=== PATIENT | male | born 1965 | race Caucasian/White ===

== ENCOUNTER 2022-11-24 08:41 | Outpatient (OUT) | payer OTHER, SELFPAY ==
--- NOTE | 2022-11-24 08:51 | XR_ITS ---
The [address] [address] Patient Name: ELYSE LEAHY MRN: [id number] date: 1965 Sex: M Assigned Patient Location: RAD Current Patient Location: [facility] Accession/Order Number: [id number] Exam Date: 11/24/2022 08:55 Report Date: 11/24/2022 09:19 At the request of: LILLY CAMPBELL Procedure: XR foreign body eye EXAMINATION: XR foreign body eye HISTORY: Foreign Body Eye COMPARISON: No relevant comparison available. FINDINGS: ORBITS: Negative for a metallic foreign body. OTHER: Remote fracture involving tip of nasal bone. IMPRESSION: 1. No metallic foreign body within the orbits. Electronically authenticated by: KESHAWN PECK Date: 11/24/2022 09:19
--- NOTE | 2022-11-24 09:40 | MR_ITS ---
[address] [address] Patient Name: ELYSE LEAHY MRN: [id number] date: 1965 Sex: M Assigned Patient Location: [facility] Current Patient Location: [facility] Accession/Order Number: [id number] Exam Date: 11/24/2022 09:40 Report Date: 11/24/2022 12:14 At the request of: LILLY CAMPBELL Procedure: MR knee RT wo con EXAMINATION: MR knee RT wo con HISTORY: Right Knee Sprain S83.911XA, Right Knee Strain S86.911A ; twisting injury, medial knee pain and swelling for COMPARISON: No relevant comparison available. TECHNIQUE: A complete multi-planar MRI was performed. 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 CARTILAGE: No visible defect. BONES: No marrow pathology, fracture, or significant arthropathy. MCL AND MEDIAL CAPSULE: Grade I sprain of the medial collateral ligament. LATERAL COMPARTMENT LATERAL MENISCUS: No visible tear or significant degeneration. CARTILAGE: No visible defect. BONES: No marrow pathology, fracture, or significant arthropathy. LCL/POSTEROLAT COMPLEX: Normal lateral collateral ligament, fascicles, lateral capsule and ligaments. ANTERIOR COMPARTMENT PATELLA: Small focus of subchondral edema at the patellar apex, mid body. CARTILAGE: Mild thinning, but no visible tear. TENDONS: Normal. EFFUSION: Moderate joint effusion. ACL: Normal appearing ligament. PCL: Normal appearing ligament. MENISCOFEMORAL: Normal meniscofemoral ligaments. OTHER: Negative. IMPRESSION: 1. Suspect mild sprain of the medial collateral ligament. 2. Moderate joint effusion. 3. Suspect tiny focal tear within patellar cartilage at apex of mid body resulting in subchondral edema. Electronically authenticated by: KESHAWN PECK Date: 11/24/2022 12:14
== END 2022-11-24 08:42 ==
LOC: RAD 08:41
PROVIDERS: PCP Nurse Practitioner; Visit Provider Nurse Practitioner Family
DX: S83.91XA Sprain of unspecified site of right knee, initial encounter (principal); S86.911A Strain of unspecified muscle(s) and tendon(s) at lower leg level, right leg, initial encounter
CPT/HCPCS: 70030; 73721

== ENCOUNTER 2023-02-05 22:37 | Emergency (ER) | payer OTHER, SELFPAY ==
[2023-02-05 22:43] VITALS: BP 166/79; PULSE 72; RESP 20; TEMP 36.8; O2SAT 92; BMI 50.2
--- NOTE | 2023-02-05 22:54 | ED.SKABFB1 ---
HPI - Skin/Abscess/Foreign Bdy General Chief complaint: Skin/Abscess/Foreign Body Stated complaint: Abscess lower leg Time Seen by Provider: 02/05/23 22:51 Source: patient Mode of arrival: walk-in History of Present Illness HPI narrative: pain and swelling left lower extremity for the past week. No fever or nausea. Decided to come in because of increasing pain. Related Data Allergies Allergy/AdvReac Type Severity Reaction Status Date / Time No Known Drug Allergies Allergy Verified 02/05/23 22:43 Review of Systems ROS Status of ROS 10 or more systems reviewed and unremarkable except as noted in history and below Exam Constitutional Vital Signs, click to edit/add: Last Vital Signs Temp 98.2 F 02/05/23 22:43 Pulse 72 02/05/23 22:43 Resp 20 02/05/23 22:43 BP 166/79 H 02/05/23 22:43 Pulse Ox 92 L 02/05/23 22:43 O2 Del Method Room Air 02/05/23 22:43 Common normals: no apparent distress, oriented x3, alert and well nourished Eye Common normals: PERRL, EOMs intact bilaterally and conjunctivae normal Respiratory Common normals: normal respiratory effort, no retractions, no use of accessory muscles and clear to auscultation bilaterally Cardio Common normals: regular rate, regular rhythm, S1 normal heart sound and S2 normal heart sound GI Common normals: soft to palpation and non-tender Extremity Other: erythema of bottom 1/2 of left lower extremity. Mild swelling. No red streaks Neuro Common normals: oriented x3, CN's II-XII intact bilaterally, moves all extremities, no focal motor deficits and no sensory deficits noted Psych Appearance: grossly normal Course Vital Signs Vital signs: Vital Signs Temperature 98.2 F 02/05/23 22:43 Pulse Rate 72 02/05/23 22:43 Respiratory Rate 20 02/05/23 22:43 Blood Pressure 166/79 H 02/05/23 22:43 Pulse Oximetry 92 L 02/05/23 22:43 Oxygen Delivery Method Room Air 02/05/23 22:43 Temperature 98.2 F 02/05/23 22:43 Pulse Rate 72 02/05/23 22:43 Respiratory Rate 20 02/05/23 22:43 Blood Pressure 166/79 H 02/05/23 22:43 Pulse Oximetry 92 L 02/05/23 22:43 Oxygen Delivery Method Room Air 02/05/23 22:43 MDM - Skin/Abscess/Foreign Bdy MDM Narrative Medical decision making narrative: presents with cellulitis lower half of LLE. No fever. Normal WBC and latic acid. Medicated with IV clindamycin and discharged home with a prescription of clindamycin. Will require close follow up by his PCP Lab Data Labs: Lab Results 02/05/23 Range/Units 22:50 WBC 7.7 (4.0-11.0) 10^3/uL RBC 4.56 L (4.70-6.10) 10^6/uL Hgb 14.6 (14.0-18.0) g/dL Hct 43.7 (42.0-54.0) % MCV 95.8 H (80.0-94.0) fL MCH 32.0 (25.9-34.0) pg MCHC 33.4 (29.9-35.2) g/dL RDW 12.7 (11.0-15.0) % Plt Count 237 (150-450) 10^3/uL MPV 9.7 (9.5-13.5) fL Neut % (Auto) 71.6 (43.0-75.0) % Lymph % (Auto) 15.7 L (20.5-60.0) % [place] % (Auto) 10.0 (1.7-12.0) % Eos % (Auto) 2.1 (0.9-7.0) % Baso % (Auto) 0.3 (0.2-2.0) % Neut # (Auto) 5.5 (1.4-6.5) 10^3/uL Lymph # (Auto) 1.2 (1.2-3.8) 10^3/uL [place] # (Auto) 0.8 (0.3-0.8) 10^3/uL Eos # (Auto) 0.2 (0.0-0.7) 10^3/uL Baso # (Auto) 0.0 (0.0-0.1) 10^3/uL Abs Immat Gran (auto) 0.02 (0.00-0.03) 10^3/uL Imm/Tot Granulo (auto) 0.3 (0.0-0.5) % Sodium 137 (136-145) mmol/L Potassium 3.4 L (3.5-5.1) mmol/L Chloride 103 (98-107) mmol/L Carbon Dioxide 31.0 (21.0-32.0) mmol/L Anion Gap 6.4 BUN 13.0 (7.0-18.0) mg/dL Creatinine 0.95 (0.70-1.30) mg/dL Est GFR ( Amer) >60 (>=60) Est GFR (Non-Af Amer) >60 (>=60) BUN/Creatinine Ratio 13.7 Glucose 134 H (74-106) mg/dL Lactate 1.1 (0.4-2.0) mmol/L Calcium 8.1 L (8.5-10.1) mg/dL Discharge Plan Discharge Chief Complaint: Skin/Abscess/Foreign Body Clinical Impression: Cellulitis Patient Disposition: Home, Self-Care Instructions: Cellulitis (ED) Additional Instructions: follow up with your family doctor in a couple of days for recheck Stand Alone Forms: Portal Instructions Referrals: Eusebia Terrell [Primary Care Provider] - 1 week
[2023-02-05] MEDS: 0.9 % SODIUM CHLORIDE 1,000 ML 999 ML IV (23:03)
[2023-02-05] MEDS: CLINDAMYCIN PHOSPHATE/D5W 900 MG/50 ML PIGGYBACK 100 MG IV (23:04)
[2023-02-05 23:08] LABS: Basophils Percent Auto 0.3 % (0.2-2.0); Eosinophils Absolute Auto 0.2 10^3/uL (0.0-0.7); Eosinophils Percent Auto 2.1 % (0.9-7.0); Hematocrit 43.7 % (42.0-54.0); Hemoglobin 14.6 g/dL (14.0-18.0); Immature Granulocytes Abs Auto 0.02 10^3/uL (0.00-0.03); Immature Granulocytes Pct Auto 0.3 % (0.0-0.5); Lymphocytes Absolute Auto 1.2 10^3/uL (1.2-3.8); Lymphocytes Percent Auto 15.7 % (20.5-60.0); Mean Corpuscular HGB Conc 33.4 g/dL (29.9-35.2); Mean Corpuscular Volume 95.8 fL (80.0-94.0); Mean Platelet Volume 9.7 fL (9.5-13.5); Monocytes Absolute Auto 0.8 10^3/uL (0.3-0.8); Neutrophils Absolute Auto 5.5 10^3/uL (1.4-6.5); Neutrophils Percent Auto 71.6 % (43.0-75.0); Platelet Count 237 10^3/uL (150-450); Red Blood Count 4.56 10^6/uL (4.70-6.10); Red Cell Distribution Width 12.7 % (11.0-15.0); White Blood Count 7.7 10^3/uL (4.0-11.0)
--- NOTE | 2023-02-05 23:09 | PC.NURSE ---
pt presents to ED because pt states he noticed his left lower extremity was red, swelling, and started draining yellow drainage for the last 2 weeks. pt states that he doesn't have pain in the calf but has pain to his left foot. pt came in today because of the yellow drainage and pain in his foot. pt states he isn't a diabetic that he knows of.
[2023-02-05 23:17] LABS: Anion Gap 6.4; BUN Creatinine Ratio 13.7; Calcium 8.1 mg/dL (8.5-10.1); Chloride 103 mmol/L (98-107); Estimated GFR (African America >60 (>=60); Estimated GFR (Non-African Ame >60 (>=60); Glucose 134 mg/dL (74-106); Potassium 3.4 mmol/L (3.5-5.1); Sodium 137 mmol/L (136-145)
[2023-02-05 23:26] LABS: Lactate/Lactic Acid 1.1 mmol/L (0.4-2.0)
[2023-02-06] MEDS: CLINDAMYCIN HCL 150 MG CAPSULE 300 MG PO (00:10)
== END 2023-02-06 00:22 | disposition home or self-care (01) ==
PROVIDERS: Emergency Provider Internal Medicine; PCP Nurse Practitioner
DX: L03.116 Cellulitis of left lower limb (principal)
CPT/HCPCS: 36415; 80048; 83605; 85025; 96365; 99284

== ENCOUNTER 2023-04-08 07:39 | Inpatient (IN) | payer OTHER, SELFPAY ==
[2023-04-08] VITALS (66 sets, daily range): BP systolic 122–144; BP diastolic 54–110; PULSE 81–145; RESP 8–30; TEMP 36.5–36.6; O2SAT 89–98; BMI 51.7
--- NOTE | 2023-04-08 07:53 | ECG_ITS ---
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
--- NOTE | 2023-04-08 07:53 | XR_ITS ---
[address] [address] Patient Name: ELYSE LEAHY MRN: [id number] date: 1965 Sex: M Assigned Patient Location: ER Current Patient Location: ER Accession/Order Number: [id number] Exam Date: 04/08/2023 08:00 Report Date: 04/08/2023 08:16 At the request of: LORI OLIVARES Procedure: XR chest 1V XR chest 1V CLINICAL: Shortness of breath COMPARISON: 08/27/2022 TECHNIQUE: Single AP view of the chest. FINDINGS: Heart size is mildly enlarged. Central pulmonary vasculature is within normal limits. No regional airspace consolidation, effusion or discernible pneumothorax. Osseous structures appear intact. XR/XR chest 1V IMPRESSION: Cardiomegaly without acute cardiac or pulmonary findings. Electronically authenticated by: MARCO ANTONIO STEWART Date: 04/08/2023 08:16
[2023-04-08 08:08] LABS: Basophils Percent Auto 0.4 % (0.2-2.0); Eosinophils Absolute Auto 0.1 10^3/uL (0.0-0.7); Eosinophils Percent Auto 1.4 % (0.9-7.0); Hematocrit 48.5 % (42.0-54.0); Hemoglobin 16.2 g/dL (14.0-18.0); Immature Granulocytes Abs Auto 0.02 10^3/uL (0.00-0.03); Immature Granulocytes Pct Auto 0.3 % (0.0-0.5); Lymphocytes Absolute Auto 1.2 10^3/uL (1.2-3.8); Lymphocytes Percent Auto 15.6 % (20.5-60.0); Mean Corpuscular HGB Conc 33.4 g/dL (29.9-35.2); Mean Corpuscular Hemoglobin 31.6 pg (25.9-34.0); Mean Corpuscular Volume 94.7 fL (80.0-94.0); Mean Platelet Volume 10.1 fL (9.5-13.5); Monocytes Absolute Auto 0.9 10^3/uL (0.3-0.8); Monocytes Percent Auto 11.4 % (1.7-12.0); Neutrophils Absolute Auto 5.6 10^3/uL (1.4-6.5); Neutrophils Percent Auto 70.9 % (43.0-75.0); Platelet Count 260 10^3/uL (150-450); Red Blood Count 5.12 10^6/uL (4.70-6.10); White Blood Count 7.8 10^3/uL (4.0-11.0)
[2023-04-08 08:21] LABS: INR 0.97; Prothrombin Time 10.3 sec (9.0-11.6)
[2023-04-08 08:26] LABS: Lactate/Lactic Acid 1.5 mmol/L (0.4-2.0)
[2023-04-08 08:33] LABS: Alanine Aminotransferase 30 U/L (16-63); Albumin Globulin Ratio 0.9; Albumin Level 3.3 g/dL (3.4-5.0); Alkaline Phosphatase 152 U/L (46-116); Anion Gap 10.9; Aspartate Amino Transferase 24 U/L (15-37); BUN Creatinine Ratio 14.9; Bilirubin Total 0.6 mg/dL (0.2-1.0); Calcium 8.6 mg/dL (8.5-10.1); Carbon Dioxide 33.3 mmol/L (21.0-32.0); Chloride 99 mmol/L (98-107); Estimated GFR (African America >60 (>=60); Estimated GFR (Non-African Ame >60 (>=60); Globulin 3.8 g/dL; Glucose 112 mg/dL (74-106); Potassium 4.2 mmol/L (3.5-5.1); Sodium 139 mmol/L (136-145); Total Protein 7.1 g/dL (6.4-8.2); Troponin I High Sensitivity 26.9 pg/mL (4.0-76.1)
[2023-04-08] MEDS: IPRATROPIUM BROMIDE 0.5 MG/2.5 ML VIAL.NEB INH (08:33)
[2023-04-08] MEDS: METHYLPREDNISOLONE SOD SUCC PF 125 MG/2 ML VIAL IVP (08:34)
--- NOTE | 2023-04-08 08:47 | ED.SOB1 ---
HPI - SOB/Dyspnea General Chief Complaint: Shortness of Breath/Dyspnea Stated Complaint: SHORTNESS OF BREATH/ GENERAL WEAKNESS Time Seen by Provider: 04/08/23 07:51 Source: patient Mode of arrival: Wheelchair Limitations: no limitations History of Present Illness HPI Narrative: The patient have history coronary artery disease s/p stent in 2012 as well as A-fib not on any anticoagulant at the moment although he is on baby aspirin, is coming to the ER with shortness of breath that been going on at least for 2 weeks and got worse over the last 2 days and the patient mentioned that he had no chest pain no nausea no vomiting no chills the shortness of breath got worse yesterday, and it not associated with any cough productive of any sputum The patient denies any leg swelling or any other concerns other than the shortness of breath He does not use any oxygen at home and he also have a history of asthma Related Data Home Medications Medication Instructions Recorded Confirmed atorvastatin 40 mg tablet 40 mg PO Q24H 04/08/23 04/08/23 diltiazem HCl 180 mg 180 mg PO Q24H 04/08/23 04/08/23 capsule,extended release 24 hr, controlled losartan 50 mg tablet 50 mg PO Q24H 04/08/23 04/08/23 Allergies Allergy/AdvReac Type Severity Reaction Status Date / Time No Known Drug Allergies Allergy Verified 04/08/23 07:42 Review of Systems ROS Status of ROS 10 or more systems reviewed and unremarkable except as noted in history and below [facility] Medical History (Updated 04/08/23 @ 11:42 by Smiley Farr MD) Cellulitis ?L03.90 - Cellulitis, unspecified (ICD-10) COPD (chronic obstructive pulmonary disease) ?J44.9 - Chronic obstructive pulmonary disease, unspecified (ICD-10) Paroxysmal atrial fibrillation ?I48.0 - Paroxysmal atrial fibrillation (ICD-10) Exam Narrative Exam Narrative: Nurses notes and vital signs reviewed and patient is not hypoxic. General: Well-appearing and in no apparent distress. Skin: Warm, dry, no pallor noted. No rash. Head: Normocephalic, atraumatic. Neck: Supple, non-tender. Eye: Pupils are equal, round and EOMI. No scleral icterus. Ears, Nose, Mouth, and Throat: TM are clear, no nasal mucosal hypertrophy. Oral mucosa is moist, no posterior oropharynx erythema, uvula is mid-line Cardiovascular: Regular Rate and Rhythm without murmur, gallop or rub. Respiratory: No accessory muscle use or respiratory distress. Lungs distant breathing sound bilaterally and decreased air entry at the bases Chest Wall: no tenderness Back: No midline thoracic or lumbar vertebral tenderness. No CVA tenderness Musculoskeletal: normal ROM, no calf or popliteal tenderness, no lower extremity edema/swelling GI: Abdomen is soft, non-distended. Normal bowel sounds. No masses appreciated. No tenderness to palpation. No rebound, guarding, or rigidity noted. Neurological: A&O x4. No cranial nerve dysfunction observed. No truncal ataxia. Moves all extremities. Sensation intact. Psychiatric: Cooperative and interactive. Normal mood and affect. Constitutional Vital Signs, click to edit/add: Last Vital Signs Temp 98 F 04/08/23 07:42 Pulse 137 H 04/08/23 11:30 Resp 10 L 04/08/23 11:30 BP 144/94 H 04/08/23 10:06 Pulse Ox 91 L 04/08/23 11:30 O2 Del Method Nasal Cannula 04/08/23 08:34 O2 Flow Rate 2 04/08/23 08:34 Course Vital Signs Vital signs: Vital Signs Temperature 98 F 04/08/23 07:42 Pulse Rate 81 04/08/23 07:42 Respiratory Rate 24 04/08/23 07:42 Blood Pressure 144/94 H 04/08/23 07:42 Pulse Oximetry 93 L 04/08/23 07:42 Oxygen Delivery Method Room Air 04/08/23 07:42 Temperature 98 F 04/08/23 07:42 Pulse Rate 137 H 04/08/23 11:30 Respiratory Rate 10 L 04/08/23 11:30 Blood Pressure 144/94 H 04/08/23 10:06 Pulse Oximetry 91 L 04/08/23 11:30 Oxygen Delivery Method Nasal Cannula 04/08/23 08:34 Oxygen Delivery Flow Rate 2 04/08/23 08:34 MDM - SOB/Dyspnea MDM Narrative Medical decision making narrative: The patient EKG showing A-fib with a heart rate of [address] elevation or depression Patient does not take any anticoagulation and he have multiple risk factor The patient CBC and chemistry showed no acute significant pathology but his heart rate was ranging between 120 and 130 and he did not take his Cardizem today his BNP was not elevated and his A-fib seems to be an issue that need to be monitored and controlled Chest x-ray showed no acute pathology CT angio of the chest showed no PE Right now the patient asthma exacerbation could be the reason for his symptoms specially that his pulse ox is ranging at 88%-90 % at room air , the patient on the 2 L nasal cannula saturating around 94% The patient case was discussed with Dr. Allan and will be admitted for asthma exacerbation and management of his A-fib Lab Data Labs: Lab Results 04/08/23 04/08/23 04/08/23 Range/Units 04:20 07:56 10:03 WBC 7.8 (4.0-11.0) 10^3/uL RBC 5.12 (4.70-6.10) 10^6/uL Hgb 16.2 (14.0-18.0) g/dL Hct 48.5 (42.0-54.0) % MCV 94.7 H (80.0-94.0) fL MCH 31.6 (25.9-34.0) pg MCHC 33.4 (29.9-35.2) g/dL RDW 12.0 (11.0-15.0) % Plt Count 260 (150-450) 10^3/uL MPV 10.1 (9.5-13.5) fL Neut % (Auto) 70.9 (43.0-75.0) % Lymph % (Auto) 15.6 L (20.5-60.0) % [place] % (Auto) 11.4 (1.7-12.0) % Eos % (Auto) 1.4 (0.9-7.0) % Baso % (Auto) 0.4 (0.2-2.0) % Neut # (Auto) 5.6 (1.4-6.5) 10^3/uL Lymph # (Auto) 1.2 (1.2-3.8) 10^3/uL [place] # (Auto) 0.9 H (0.3-0.8) 10^3/uL Eos # (Auto) 0.1 (0.0-0.7) 10^3/uL Baso # (Auto) 0.0 (0.0-0.1) 10^3/uL Abs Immat Gran (auto) 0.02 (0.00-0.03) 10^3/uL Imm/Tot Granulo (auto) 0.3 (0.0-0.5) % PT 10.3 (9.0-11.6) sec INR 0.97 Sodium 139 (136-145) mmol/L Potassium 4.2 (3.5-5.1) mmol/L Chloride 99 (98-107) mmol/L Carbon Dioxide 33.3 H (21.0-32.0) mmol/L Anion Gap 10.9 BUN 14.0 (7.0-18.0) mg/dL Creatinine 0.94 (0.70-1.30) mg/dL Est GFR ( Amer) >60 (>=60) Est GFR (Non-Af Amer) >60 (>=60) BUN/Creatinine Ratio 14.9 Glucose 112 H (74-106) mg/dL Lactate 1.5 (0.4-2.0) mmol/L Calcium 8.6 (8.5-10.1) mg/dL Magnesium 2.0 (1.8-2.4) mg/dL Total Bilirubin 0.6 (0.2-1.0) mg/dL AST 24 (15-37) U/L ALT 30 (16-63) U/L Alkaline Phosphatase 152 H (46-116) U/L Troponin I High Sens 26.9 28.7 (4.0-76.1) pg/mL NT-Pro-B Natriuret Pep 275.0 (<=900.0) pg/mL Total Protein 7.1 (6.4-8.2) g/dL Albumin 3.3 L (3.4-5.0) g/dL Globulin 3.8 g/dL Albumin/Globulin Ratio 0.9 Discharge Plan Discharge Chief Complaint: Shortness of Breath/Dyspnea Clinical Impression: Asthma exacerbation, Uncontrolled atrial fibrillation Patient Disposition: Admitted As Inpatient Time of Disposition Decision: 11:42 Condition: Good
[2023-04-08] MEDS: DILTIAZEM HCL 180 MG CAP.ER.24H PO (10:06)
--- NOTE | 2023-04-08 10:06 | CT_ITS ---
The [address] [address] Patient Name: ELYSE LEAHY MRN: [id number] date: 1965 Sex: M Assigned Patient Location: ER Current Patient Location: Accession/Order Number: [id number] Exam Date: 04/08/2023 10:35 Report Date: 04/08/2023 11:24 At the request of: LORI OLIVARES Procedure: CT angio chest CT angio chest CLINICAL: Shortness of breath r/o PE COMPARISON: 06/01/2022, 11/06/2021, 08/14/2020 TECHNIQUE: Thin section axial images were obtained from thoracic inlet to the diaphragms following the administration of intravenous contrast. CT angiographic reconstructions of the pulmonary arteries including multiple intensity projections in coronal and sagittal planes were performed. Dose reduction: mA and/or kV are were adjusted by automated exposure control software based upon patients height and weight. FINDINGS: Thoracic inlet and axillary structures are intact. Right paratracheal lymph node of 1.4 cm is stable. No new or enlarging mediastinal adenopathy. Size is full. No pericardial effusion. Pulmonary arterial tree is opacified and does not show filling defect to indicate pulmonary embolism. Limited upper abdominal images show no acute findings. Lung windows show no airspace infiltrate or consolidation. Pleural-based nodular density of 4 mm in the posterior left lower lobe on series 4 image 55 is decreased in size, previously 6 mm on 06/01/2022 calcified granuloma right lower lobe image 70 is stable, as is an additional tiny granuloma along the right major fissure on image 61. Pleural-based nodule lateral right lower lobe image 68 measures 6 mm and is stable. No new or enlarging pulmonary nodule. Central airways are patent. Pleural based densities in the costophrenic sulci are improved or stable, consistent with atelectasis or scarring. These are generally improved compared to prior studies dating back to 08/14/2020, with one small focus of increased interstitial infiltrate lateral right base series 4 image 69 and adjacent. Osseous structures show no acute traumatic CT/CT angio chest IMPRESSION: 1. No evidence of pulmonary embolism. 2. Small bilateral pulmonary nodules do not appear significantly changed dating back to 08/14/2020, consistent with benign etiology. Mildly enlarged paratracheal lymph node in the superior mediastinum is stable, consistent with benign etiology. 3. Previously documented pleural-based interstitial and airspace opacities at the lung bases shows generalized interval improvement compared to prior studies dating back to 08/14/2020, with one small focus of mildly increased interstitial prominence at the lateral right lung base. Waxing/waning pattern suggests chronic interstitial inflammatory change, but is nonspecific. Electronically authenticated by: MARCO ANTONIO STEWART Date: 04/08/2023 11:24
[2023-04-08 10:29] LABS: Troponin I High Sensitivity 28.7 pg/mL (4.0-76.1)
--- NOTE | 2023-04-08 11:42 | P.HP_ITS ---
H&P: HPI History of Present Illness Chief complaint: SOB Narrative: 57 y/o male with a history of COPD and afib presents to ER with SOB. C/o SOB over the past 2 weeks. Develops SOB and fatigue with exertion. Very difficult to stay active or ambulate due to symptoms. Mild cough but no sputum. No congestion. Denies palpitations or heart racing. Not lightheaded or dizzy. Afebrile. To ER due to continued symptoms. WBC normal and chest x-ray negative. EKG shows rapid afib. CTA chest negative for acute change. Attempted to ambulate and would desaturate into mid 80s but currently on room air. Admitted for treatment. Review of Systems ROS Constitutional Reports: fatigue; Denies: fever or chills Cardiovascular Reports: shortness of breath with exertion; Denies: chest pain, palpitations or edema Respiratory Reports: shortness of breath and cough; Denies: wheezing Gastrointestinal Denies: abdominal pain, nausea, vomiting or diarrhea Genitourinary Denies: painful urination [facility] Medical History (Updated 04/08/23 @ 11:42 by Smiley Farr MD) Cellulitis ?L03.90 - Cellulitis, unspecified (ICD-10) COPD (chronic obstructive pulmonary disease) ?J44.9 - Chronic obstructive pulmonary disease, unspecified (ICD-10) Paroxysmal atrial fibrillation ?I48.0 - Paroxysmal atrial fibrillation (ICD-10) Meds Home Medications and Allergies Home Medications Medication Instructions Recorded Confirmed Type atorvastatin 40 mg tablet 40 mg PO Q24H 04/08/23 04/08/23 History diltiazem HCl 180 mg 180 mg PO Q24H 04/08/23 04/08/23 History capsule,extended release 24 hr, controlled losartan 50 mg tablet 50 mg PO Q24H 04/08/23 04/08/23 History Allergies Allergy/AdvReac Type Severity Reaction Status Date / Time No Known Drug Allergies Allergy Verified 04/08/23 07:42 Exam Constitutional Vital Signs, click to edit/add: Last Vital Signs Temp 98 F 04/08/23 07:42 Pulse 137 H 04/08/23 11:30 Resp 10 L 04/08/23 11:30 BP 144/94 H 04/08/23 10:06 Pulse Ox 91 L 04/08/23 11:30 O2 Del Method Nasal Cannula 04/08/23 08:34 O2 Flow Rate 2 04/08/23 08:34 Documenting provider has reviewed patient's vital signs: yes Common normals: no apparent distress, oriented x3 and alert Nutritional appearance: obese HENMT Common normals: normocephalic Eye Common normals: PERRL and EOMs intact bilaterally Respiratory Auscultation: diminished lung sounds; no wheezes Cardio Common normals: no gallops, no murmurs and no rub Rhythm: abnormal rhythm irregularly irregular GI Common normals: Normal to inspection, nondistended, normoactive bowel sounds present and non-tender Extremity Common normals: no pedal edema Results Labs Labs: Short CBC 04/08/23 Range/Units 04:20 WBC 7.8 (4.0-11.0) 10^3/uL Hgb 16.2 (14.0-18.0) g/dL Hct 48.5 (42.0-54.0) % Plt Count 260 (150-450) 10^3/uL BMP 04/08/23 04:20 Sodium 139 Potassium 4.2 Chloride 99 Carbon Dioxide 33.3 H BUN 14.0 Creatinine 0.94 Glucose 112 H Calcium 8.6 Liver Function 04/08/23 Range/Units 04:20 Total Bilirubin 0.6 (0.2-1.0) mg/dL AST 24 (15-37) U/L ALT 30 (16-63) U/L Alkaline Phosphatase 152 H (46-116) U/L Albumin 3.3 L (3.4-5.0) g/dL ABG Attestation: I have reviewed the pertinent ABG results. Pulse Oximetry Attestation: I have reviewed the pertinent pulse oximetry results. Imaging CT scan - chest: Attestation: I have reviewed the pertinent imaging results. Assessment and Plan Assessment and Plan (1) Atrial fibrillation with rapid ventricular response: (2) COPD exacerbation: (3) Benign essential hypertension: (4) Coronary artery disease: (5) Prediabetes: (6) CATERINA (obstructive sleep apnea): Plan Noted tachycardia but did not take am medication. Gave oral cardizem in ER and monitor. If continued tachycardia will need IV medication and possible drip. Check echo and start Eliquis. Start solu-medrol and DuoNeb for COPD. Check respiratory plus panel. Resume home medication. Check A1C. Likely will need 2-3 days in the hospital.
--- NOTE | 2023-04-08 11:50 | CA_ITS ---
Patient: ELYSE LEAHY Exam Date: 04/09/2023 : 1965 Gender:M Ordering : DR Mirza Pérez . Admission #: [id number] Family : DR Vinny Soliz . Order #: [id number] CLICK HERE TO VIEW EXAM ECHOCARDIOGRAM REPORT PROCEDURE: CA ECHO DOPPLER COMPLETE INDICATIONS: afib COMPARISON: None. DESCRIPTION: COMPLETE ECHOCARDIOGRAM Real-time transthoracic echocardiography with 2D, M-mode, spectral and color flow Doppler performed. QUALITY: Technical quality was adequate. LEFT VENTRICLE: Normal chamber size. Normal left ventricular wall thickness. LV EF: Global left ventricular systolic function is normal. Visual estimation of left ventricular ejection fraction is 65%. DIASTOLIC: Not adequately assessed due to heart rhythm. ATRIAL SEPTUM: Inadequately seen. LEFT ATRIUM: Normal chamber size. RIGHT ATRIUM: Moderate dilatation. RIGHT VENTRICLE: Mild dilatation. Normal right ventricular systolic function. TRICUSPID VALVE: Normal mobility and thickness. Trivial regurgitation. Mild pulmonary hypertension. RVSP 36mmHg MITRAL VALVE: Normal mobility and thickness. No evidence of mitral valve stenosis. There is no mitral annular calcification. No mitral regurgitation. AORTIC VALVE: Normal trileaflet appearance. Mildly calcified aortic valve. Normal leaflet mobility. No evidence of aortic valve stenosis. No aortic regurgitation. AORTIC ROOT: Normal diameter and appearance. PULMONIC VALVE: Normal thickness and mobility. No stenosis. Trivial regurgitation. PERICARDIUM: Anterior free space; trivial effusion versus fat pad. IVC: Mild dilatation. measuring 2.3cm with partial collapse. CONCLUSION: 1. Global left ventricular systolic function is normal; visually estimated ejection fraction is 65% 2. The right ventricle is mildly dilated with normal systolic function 3. The right atrium is moderately dilated 4. Mildly elevated right ventricular systolic pressure; RVSP 36 mmHg 5. No significant valvular abnormalities 6. Anterior free space; trivial effusion versus fat pad Adult Echocardiography Procedure Report Left Ventricle LVEDD (3.7 - 5.6 cm): 5.30 cm LVESD (2.2 - 4.0 cm): 3.65 cm LVIVS thickness (0.6 - 1.2 cm): 1.04 cm LVPW thickness (0.5 - 1.0 cm): 0.85 cm e': 0.25 m/s E - e': 3.85 LVOT Max Gradient: 6.00 mm[Hg] LVOT Area (cm2): 1.23 m/s Peak Velocity (LVOT): 1.23 m/s Mean Velocity (LVOT): 0.79 m/s LVOT Diameter 2.13 cm Left Ventricular Ejection Fraction: 60.89 % Left Atrium LA Volume Index (2D A2C): 26.70 ml/m2 Left Atrium Systolic Dimension: 4.33 cm Mitral Valve MV E to A Ratio: 107.92 Mitral Valve A-Wave Peak Velocity: 0.01 m/s Mitral Valve E-Wave Peak Velocity: 0.95 m/s Right Ventricle RV Internal Diastolic Dimension: 4.06 cm Aorta AO Root Diam: 3.79 cm Ascending Ao Diam: 3.17 cm Aortic Valve AoV Area (Peak Haris): 3.12 cm2, 3.31 cm2 AoV Area (VTI): 2.76 cm2, 2.92 cm2 Peak Velocity(Antegrade Flow): 1.32 m/s, 1.48 m/s Peak Gradient(Antegrade Flow): 7.00 mm[Hg], 8.81 mm[Hg] Mean Velocity(Antegrade Flow): 0.96 m/s, 1.13 m/s Mean Gradient(Antegrade Flow): 4.25 mm[Hg], 5.39 mm[Hg] Velocity Time Integral: 24.04 cm, 26.83 cm Tricuspid Valve Peak Velocity (Regurgitant Flow): 1.52 m/s, 1.94 m/s, 2.30 m/s Pulmonic Valve Peak Velocity: 1.11 m/s Peak Gradient: 3.73 mm[Hg], 6.31 mm[Hg] Right Atrium Right Atrium Systolic Pressure: 84.82 ml, 84.82 ml Dictated by: Teagan Esteves M.D. on 04/09/2023 at 12:59 Approved by: Teagan Esteves M.D. on 04/09/2023 at 13:02
[2023-04-08 12:03] LABS: Adenovirus NOT DETECTED (NOT DETECTE); Bordetella parapertussis NOT DETECTED (NOT DETECTE); Coronavirus 229E NOT DETECTED (NOT DETECTE); Coronavirus HKU1 NOT DETECTED (NOT DETECTE); Coronavirus NL63 NOT DETECTED (NOT DETECTE); Coronavirus OC43 NOT DETECTED (NOT DETECTE); Human Metapneumovirus NOT DETECTED (NOT DETECTE); Human Rhinovirus/Enterovirus NOT DETECTED (NOT DETECTE); Influenza A NOT DETECTED (NOT DETECTE); Influenza B NOT DETECTED (NOT DETECTE); Mycoplasma pneumoniae NOT DETECTED (NOT DETECTE); Parainfluenza Virus 1 NOT DETECTED (NOT DETECTE); Parainfluenza Virus 2 NOT DETECTED (NOT DETECTE); Parainfluenza Virus 3 NOT DETECTED (NOT DETECTE); Parainfluenza Virus 4 NOT DETECTED (NOT DETECTE); Respiratory Syncytial Virus NOT DETECTED (NOT DETECTE); SARS-CoV-2 NOT DETECTED (NOT DETECTE)
[2023-04-08 12:14] LABS: Estimated Average Glucose 120 mg/dL; Glycohemoglobin A1C 5.8 % (4.5-6.2)
[2023-04-08] MEDS: METOPROLOL TARTRATE 5 MG/5 ML VIAL IVP ×2 (15:02→20:35)
[2023-04-08 15:50] LABS: Glucometer 259 mg/dL (74-106)
[2023-04-08] MEDS: METHYLPREDNISOLONE SOD SUCC PF 125 MG/2 ML VIAL 60 MG IVP ×2 (17:18→23:14)
[2023-04-08] MEDS: IPRATROPIUM/ALBUTEROL SULFATE 3 ML AMPUL.NEB IH ×2 (19:18→23:27)
[2023-04-08] MEDS: APIXABAN 5 MG TABLET PO (20:44)
[2023-04-08 21:39] LABS: Glucometer 329 mg/dL (74-106)
[2023-04-08] MEDS: ATORVASTATIN CALCIUM 40 MG TABLET PO (21:39)
[2023-04-08] MEDS: INSULIN ASPART 300 UNIT/3 ML PEN SUBQ (21:49)
[2023-04-09] VITALS (117 sets, daily range): BP systolic 94–150; BP diastolic 52–113; PULSE 83–135; RESP 0–36; TEMP 36.5–36.9; O2SAT 85–98
[2023-04-09] MEDS: IPRATROPIUM/ALBUTEROL SULFATE 3 ML AMPUL.NEB IH (03:28)
[2023-04-09 04:13] LABS: Basophils Percent Auto 0.1 % (0.2-2.0); Hematocrit 46.6 % (42.0-54.0); Hemoglobin 15.8 g/dL (14.0-18.0); Immature Granulocytes Abs Auto 0.08 10^3/uL (0.00-0.03); Immature Granulocytes Pct Auto 0.6 % (0.0-0.5); Lymphocytes Absolute Auto 0.3 10^3/uL (1.2-3.8); Lymphocytes Percent Auto 2.2 % (20.5-60.0); Mean Corpuscular HGB Conc 33.9 g/dL (29.9-35.2); Mean Corpuscular Hemoglobin 31.7 pg (25.9-34.0); Mean Corpuscular Volume 93.6 fL (80.0-94.0); Mean Platelet Volume 10.4 fL (9.5-13.5); Monocytes Absolute Auto 0.2 10^3/uL (0.3-0.8); Monocytes Percent Auto 1.1 % (1.7-12.0); Neutrophils Absolute Auto 13.4 10^3/uL (1.4-6.5); Platelet Count 226 10^3/uL (150-450); Red Blood Count 4.98 10^6/uL (4.70-6.10); Red Cell Distribution Width 12.1 % (11.0-15.0)
[2023-04-09 04:27] LABS: Anion Gap 9.6; BUN Creatinine Ratio 21.3; Calcium 8.8 mg/dL (8.5-10.1); Carbon Dioxide 32.2 mmol/L (21.0-32.0); Chloride 100 mmol/L (98-107); Estimated GFR (African America >60 (>=60); Estimated GFR (Non-African Ame >60 (>=60); Glucose 250 mg/dL (74-106); Potassium 3.8 mmol/L (3.5-5.1); Sodium 138 mmol/L (136-145)
[2023-04-09 04:30] LABS: Estimated Average Glucose 120 mg/dL; Glycohemoglobin A1C 5.8 % (4.5-6.2)
[2023-04-09] MEDS: METHYLPREDNISOLONE SOD SUCC PF 125 MG/2 ML VIAL 60 MG IVP ×2 (06:19→18:05)
[2023-04-09 06:47] LABS: Magnesium 2.1 mg/dL (1.8-2.4)
[2023-04-09 07:02] LABS: Thyroid Stimulating Hormone 0.188 uIU/mL (0.358-3.740)
--- NOTE | 2023-04-09 07:39 | XR_ITS ---
The [address] [address] Patient Name: ELYSE LEAHY MRN: [id number] date: 1965 Sex: M Assigned Patient Location: ICU Current Patient Location: ICU Accession/Order Number: [id number] Exam Date: 04/09/2023 08:30 Report Date: 04/09/2023 09:22 At the request of: SALVADOR WALTERS Procedure: XR chest 2V EXAMINATION: XR chest 2V HISTORY: vargas ; dyspnea on exertion, tachycardia COMPARISON: XR chest 04/08/2023 FINDINGS: LUNGS: Trace amount stranding within the lateral lung bases. VASCULATURE: No increased pulmonary vasculature. PLEURA: No pneumothorax, effusion, or pleural thickening. CARDIAC: No significant cardiomegaly or cardiac silhouette abnormality. MEDIASTINUM: No visible mass or adenopathy. BONES: No fracture or visible bone lesion. OTHER: Negative. XR/XR chest 2V IMPRESSION: 1. Trace amount of discoid atelectasis or possibly infiltrates within lateral lung bases. Electronically authenticated by: KESHAWN PECK Date: 04/09/2023 09:22
[2023-04-09] MEDS: INSULIN ASPART 300 UNIT/3 ML PEN SUBQ ×4 (07:50→21:31)
[2023-04-09] MEDS: CEFTRIAXONE 1,000 MG in 0.9 % SODIUM CHLORIDE 50 ML 100 MG IV (07:55)
[2023-04-09 07:58] LABS: Glucometer 230 mg/dL (74-106)
[2023-04-09 08:04] LABS: Troponin I High Sensitivity 20.9 pg/mL (4.0-76.1)
[2023-04-09] MEDS: DILTIAZEM HCL 120 MG CAP.ER.24H 240 MG PO (08:04)
[2023-04-09] MEDS: LOSARTAN POTASSIUM 50 MG TABLET PO (08:04)
[2023-04-09] MEDS: APIXABAN 5 MG TABLET PO ×2 (08:04→21:31)
[2023-04-09] MEDS: LEVOFLOXACIN IN DEXTROSE 5 % 750 MG/150 ML IV.SOLN 100 MG IV (08:09)
[2023-04-09] MEDS: FUROSEMIDE 40 MG/4 ML VIAL IVP (08:15)
--- NOTE | 2023-04-09 08:18 | CM.NOTE ---
Rounds made with Dr. Soliz, pt will have echo today and continue to adjust medications for rate control. Pt not a self pay, he has [employer]. Family will bring in card.
[2023-04-09] MEDS: METOPROLOL TARTRATE 5 MG/5 ML VIAL IVP ×4 (09:54→10:11)
[2023-04-09] MEDS: CARVEDILOL 6.25 MG TABLET PO ×2 (10:04→21:31)
--- NOTE | 2023-04-09 10:59 | P.PN_ITS ---
Progress Note: Subjective Subjective Interval history: Date/Time of exam: 04/09/23 1035 The patient is currently resting in bed while a 2D echo is being performed at the bedside. He denies any acute complaints including no chest pain, palpitations, shortness of breath, dizziness, N/V/D, or any other acute comp laint. He does continue to note shortness of breath with minimal activity when his heart rate increases. His HR control is improved but not yet to goal. We have increased his diltiazem dosing and added a Coreg today to improve his rate control. His Pro-BNP jumped today and we have given a 1x dose of IVP lasix. He does not clinically appear significantly overloaded. We will continue to monito r the patient's response. Exam Constitutional Vital Signs, click to edit/add: Last Vital Signs Temp 98.2 F 04/09/23 08:00 Pulse 111 H 04/09/23 10:10 Resp 5 L 04/09/23 10:10 BP 109/62 04/09/23 10:18 Pulse Ox 90 L 04/09/23 09:00 O2 Del Method Room Air 04/09/23 08:00 O2 Flow Rate 3 04/09/23 03:29 Common normals: no apparent distress, oriented x3 and alert General appearance: cooperative Nutritional appearance: obese Orientation/consciousness: Yes awake HENFL Common normals: normocephalic, head/scalp atraumatic and hearing grossly normal bilaterally Head and scalp: normocephalic and atraumatic Eye Common normals: PERRL, EOMs intact bilaterally, conjunctivae normal and no scleral icterus General eye: normal appearance of both eyes Conjunctiva: conjunctiva(e) normal Pupil: PERRL Neck & C-Spine Common normals: no JVD Chest Common normals: inspection of chest normal Chest: symmetrical chest wall rise Respiratory Common normals: normal respiratory effort, no use of accessory muscles and clear to auscultation bilaterally Effort & inspection: able to speak in complete sentences Auscultation: clear to auscultation bilaterally Cardio Common normals: no JVD, regular rate, S1 normal heart sound, S2 normal heart sound, no gallops, no clicks, no murmurs, no rub and peripheral pulses 2+ throughout; irregular rhythm (irregularly irregular) Rate: regular rate Heart sounds: S1 normal and S2 normal Peripheral pulses: pulses 2+ throughout GI Common normals: Normal to inspection, nondistended, normoactive bowel sounds present, soft to palpation, non-tender and no hepatosplenomegaly Palpation: soft and no hepatosplenomegaly Bladder/kidney exam: bladder normal to palpation Extremity Common normals: normal to inspection and no calf tenderness General: edema (Tr-1+ bilat insteps); no clubbing and no cyanosis Neuro Common normals: oriented x3, CN's II-XII intact bilaterally, moves all extremities, no focal motor deficits and no sensory deficits noted Sensorium/orientation: awake and alert Psych Common normals: mental status grossly normal Progress Note: Objective Labs Labs: Short CBC 04/09/23 Range/Units 03:58 WBC 14.0 H (4.0-11.0) 10^3/uL Hgb 15.8 (14.0-18.0) g/dL Hct 46.6 (42.0-54.0) % Plt Count 226 (150-450) 10^3/uL BMP 04/09/23 03:58 Sodium 138 Potassium 3.8 Chloride 100 Carbon Dioxide 32.2 H BUN 23.0 H Creatinine 1.08 Glucose 250 H Calcium 8.8 Pulse Oximetry Attestation: I have reviewed the pertinent pulse oximetry results. ECG Attestation: ?I have reviewed the pertinent ECG results. Imaging Chest x-ray: Attestation: I have reviewed the pertinent imaging results. Radiologist's impression: IMPRESSION: 1. Trace amount of discoid atelectasis or possibly infiltrates within lateral lung bases. Progress Note: A&P Assessment and Plan (1) Atrial fibrillation with rapid ventricular response: Assessment and Plan: ACUTE * Improved rate control but not yet to goal * Increase diltiazem CD to 240mg daily * Add Coreg 6.25 mg BID * Continue PRN metoprolol IVP for sustained RVR * Continue continuous cardiac monitoring * BP slightly soft but stable with these additional medications * Consider initiating cardizem gtt or digoxin IVP pending clinical course * Consider cardiology consult if unable to obtain adequate rate control * Continue apixaban as initiated on admission for CVA prevention * Lasix IVP x 1 today w/ elevated Pro-BNP today - monitor output and BNP daily * 2D Echo today to assess for new or worsening systolic or diastolic dysfunction (2) COPD exacerbation: Assessment and Plan: ACUTE * Improving * No hypoxia, wheezing, or SOB at rest * Continue double gram neg coverage for now w/ BLL possible infiltrates on CXR today * Obtain sputum culture if possible to guide ABX coverage * Decrease solumedrol dosing to BID in absence of wheezing or increased WOB (3) Benign essential hypertension: Assessment and Plan: CHRONIC * Continue home diltiazem (w/ increased dosing above), and Losartan (4) Coronary artery disease: Assessment and Plan: CHRONIC * Continue home statin, ARB, CCB (5) Prediabetes: Assessment and Plan: CHRONIC * Check Hgb A1C to monitor recent BS control * Current hyperglycemia likely driven by concurrent steroid dosing * Med dose Insulin SS added today for glucose correction (6) CATERINA (obstructive sleep apnea): Assessment and Plan: CHRONIC * Continue home CPAP Plan Agree with above assessment Saw and examined pt at 0700. Only difference - on my exam: Rate with Tachycardic due to a-fib rvr, - Abd exam with Morbidly obese COPD: was hypoxic - improved with supplemental ok - likely a combination of the copd, heart failure due to a-fib rvr and sleep apnea maintain in-pt status due to hypoxia, and heart failure progressed current treatment - slow to resolve
[2023-04-09 11:13] LABS: Glucometer 333 mg/dL (74-106)
[2023-04-09] MEDS: IPRATROPIUM BROMIDE 0.5 MG/2.5 ML VIAL.NEB IH ×3 (11:22→22:03)
[2023-04-09] MEDS: LEVALBUTEROL HCL 0.63 MG/3 ML VIAL.NEB IH ×3 (11:22→22:03)
[2023-04-09] MEDS: DIGOXIN 500 MCG/2 ML AMPUL 250 MCG IV ×2 (16:36→21:30)
[2023-04-09 16:42] LABS: Glucometer 270 mg/dL (74-106)
[2023-04-09 21:19] LABS: Glucometer 270 mg/dL (74-106)
[2023-04-09] MEDS: ATORVASTATIN CALCIUM 40 MG TABLET PO (21:31)
[2023-04-10] VITALS (109 sets, daily range): BP systolic 113–147; BP diastolic 62–82; PULSE 65–144; RESP 1–33; TEMP 36.8; O2SAT 87–95
[2023-04-10] MEDS: LEVALBUTEROL HCL 0.63 MG/3 ML VIAL.NEB IH ×2 (05:16→10:17)
[2023-04-10] MEDS: IPRATROPIUM BROMIDE 0.5 MG/2.5 ML VIAL.NEB IH (05:16)
[2023-04-10] MEDS: METHYLPREDNISOLONE SOD SUCC PF 125 MG/2 ML VIAL 60 MG IVP (05:21)
[2023-04-10] MEDS: DIGOXIN 500 MCG/2 ML AMPUL 250 MCG IV (05:22)
[2023-04-10 05:48] LABS: Basophils Percent Auto 0.2 % (0.2-2.0); Hematocrit 46.6 % (42.0-54.0); Hemoglobin 15.7 g/dL (14.0-18.0); Immature Granulocytes Pct Auto 0.9 % (0.0-0.5); Lymphocytes Absolute Auto 0.5 10^3/uL (1.2-3.8); Lymphocytes Percent Auto 1.9 % (20.5-60.0); Mean Corpuscular HGB Conc 33.7 g/dL (29.9-35.2); Mean Corpuscular Hemoglobin 31.8 pg (25.9-34.0); Mean Corpuscular Volume 94.3 fL (80.0-94.0); Mean Platelet Volume 10.4 fL (9.5-13.5); Monocytes Absolute Auto 0.8 10^3/uL (0.3-0.8); Monocytes Percent Auto 3.4 % (1.7-12.0); Neutrophils Absolute Auto 21.9 10^3/uL (1.4-6.5); Neutrophils Percent Auto 93.6 % (43.0-75.0); Platelet Count 261 10^3/uL (150-450); Red Blood Count 4.94 10^6/uL (4.70-6.10); Red Cell Distribution Width 12.5 % (11.0-15.0); White Blood Count 23.4 10^3/uL (4.0-11.0)
[2023-04-10 05:59] LABS: Anion Gap 10.4; BUN Creatinine Ratio 30.3; Calcium 8.7 mg/dL (8.5-10.1); Carbon Dioxide 30.2 mmol/L (21.0-32.0); Chloride 99 mmol/L (98-107); Estimated GFR (African America >60 (>=60); Estimated GFR (Non-African Ame >60 (>=60); Glucose 183 mg/dL (74-106); Potassium 4.6 mmol/L (3.5-5.1); Sodium 135 mmol/L (136-145)
[2023-04-10 06:29] LABS: Digoxin 3.2 ng/mL (0.9-2.0)
[2023-04-10 07:21] LABS: Glucometer 158 mg/dL (74-106)
--- NOTE | 2023-04-10 07:27 | CM.NOTE ---
Rounds made with Dr. Soliz. Dr. Soliz will discontinue the HHN. Potential discharge later today if HR does not increase with activity. Mr. Duong is agreeable with plan.
[2023-04-10] MEDS: CEFTRIAXONE 1,000 MG in 0.9 % SODIUM CHLORIDE 50 ML 100 MG IV (09:22)
[2023-04-10] MEDS: APIXABAN 5 MG TABLET PO (09:23)
[2023-04-10] MEDS: LOSARTAN POTASSIUM 50 MG TABLET PO (09:23)
[2023-04-10] MEDS: DILTIAZEM HCL 120 MG CAP.ER.24H 240 MG PO (09:23)
[2023-04-10] MEDS: CARVEDILOL 6.25 MG TABLET PO (09:23)
[2023-04-10] MEDS: LEVOFLOXACIN IN DEXTROSE 5 % 750 MG/150 ML IV.SOLN 100 MG IV (09:54)
[2023-04-10] MEDS: FUROSEMIDE 40 MG/4 ML VIAL IVP (11:07)
[2023-04-10] MEDS: METOPROLOL TARTRATE 25 MG TABLET PO (11:07)
[2023-04-10] MEDS: INSULIN ASPART 300 UNIT/3 ML PEN SUBQ (11:13)
[2023-04-10 11:17] LABS: Glucometer 335 mg/dL (74-106)
--- NOTE | 2023-04-10 14:53 | P.DS_ITS ---
Pt seen and examined at 0650 Reviewed notes from [facility] [employer] and agree with statements and findings DS: Providers Provider Date of admission: 04/08/23 13:16 Primary care physician: Eusebia Terrell Admitting clinician: Mirza Pérez Attending physician on discharge: Vinny Soliz Discharging clinician: Jacquelin Peoples Anticipated date of discharge: 04/10/23 DS: Diagnosis Discharge Diagnosis (1) Atrial fibrillation with rapid ventricular response: (2) COPD exacerbation: (3) Benign essential hypertension: (4) Fluid overload: (5) Leukocytosis: DS: Summary Hospital Course Hospital Course: A-fib w/ RVR The patient was admitted with acute dyspnea with activity and found to be in A- fib with RVR. The patient has chronic paroxysmal A-fib but his heart rate is almost always well controlled in the 60s and is usually in NSR. Eliquis was initiated for CVA prevention. He was initially treated with increased p.o. doses of his Cardizem and IVP Lopressor. When this did not produce adequate rate control Coreg was added and eventually IVP digoxin. Follow-up digoxin level was elevated and digoxin was discontinued. Eventually, metoprolol tart tartrate was added to the patient's medication profile and the patient achieved adequate rate control. He ambulated with nursing and his heart rate did elevate but not significantly and remained below 100 most of the time. His resting heart rate at the time of discharge is in the 70s. Serial troponins were unremarkable and ACS is not suspected. TSH was mildly suppressed which could indicate thyrotoxicosis but is not strongly clinically suspected at this time further work-up as an outpatient could be indicated pending clinical course. No electrolyte abnormalities were identified during the patient's stay. Acute Asthma/COPD exacerbation The patient's dyspnea on exertion was also felt to be secondary to acute asthma and/or COPD exacerbation. He was initiated on high-dose IVP steroids, Broad gram-negative antibiotic coverage for suspected concurrent bronchitis with some clinical concern for possible pneumonia as well, and scheduled breathing treatments. The patient initially required O2 supplementation but this has been weaned off and he has been stable on room air for more than 24 hours. Fluid overload The patient was given IV fluids initially during his stay. These were discontinued when a follow-up NT proBNP was elevated and there was some concern as for this contributing to his hypoxia. He was given IVP Lasix boluses and a 2D echo was obtained. The 2D echo was mostly unremarkable, with a preserved LVEF of 65%, RV mildly dilated with normal systolic function, RA moderately dilated, mildly elevated RV systolic pressure RVSP 36 mmHg, no significant valvular abnormalities. A follow-up chest x-ray on the day of discharge revealed trace amount of bilateral atelectasis with possible infiltrates of the lateral lung bases, but the patient is significantly improved. A PE was ruled out with CTA of the chest in the ED. Leukocytosis Increasing leukocytosis was noted on daily labs. This is likely 2/2 high dose glucocorticoid administration, but BLL pneumonia could not be completely ruled out based on imaging. Thus the patient is being discharged home on antibiotics for suspected COPD concurrent bronchitis versus pneumonia. The patient is being discharged home in stable condition with well-controlled heart rate in the 70s. He has been prescribed new prescriptions of metoprolol tartrate 25 mg twice daily, a long prednisone taper for his COPD exacerbation, Levaquin to complete a 7 day course for suspected bronchitis/pneumonia, levalbuterol HFA breathing treatments to reduce cardiac stimulation, and increased diltiazem CD dosing. He was also given a prescription for Eliquis and [employer] has provided a 30-day free prescription card pending reevaluation by the patient's jail keeper later this week and further assessment if the patient can afford his Eliquis copayment. He should follow-up with his PCP in 3-5 days and with his jail keeper as previously scheduled later this week. Time Spent with Patient Time attestation: Total time spent providing and/or coordinating discharge services: Time spent: greater than 30 minutes Specific discharge activities: Physical exam, discussion of discharge plan, questions answered. Exam Constitutional Vital Signs, click to edit/add: Last Vital Signs Temp 98.2 F 04/10/23 06:28 Pulse 72 04/10/23 14:00 Resp 20 04/10/23 10:17 BP 128/79 04/10/23 09:58 Pulse Ox 95 04/10/23 10:21 O2 Del Method Room Air 04/10/23 14:00 O2 Flow Rate 3 04/09/23 03:29 Common normals: no apparent distress, oriented x3 and alert General appearance: cooperative Orientation/consciousness: Yes awake HENIA Common normals: normocephalic and head/scalp atraumatic Head and scalp: normocephalic and atraumatic Eye Common normals: PERRL, EOMs intact bilaterally, conjunctivae normal and no scleral icterus Conjunctiva: conjunctiva(e) normal Pupil: PERRL Neck & C-Spine Common normals: no JVD Respiratory Common normals: normal respiratory effort and no use of accessory muscles Effort & inspection: able to speak in complete sentences and symmetric chest movement Auscultation: wheezes (Faint, EE anterior RUL) Cardio Common normals: no JVD, S1 normal heart sound, S2 normal heart sound, no gallops, no clicks, no murmurs, no rub and peripheral pulses 2+ throughout Rate: tachycardic (HR sustained around 130s) Rhythm: abnormal rhythm irregularly irregular Heart sounds: S1 normal and S2 normal Peripheral pulses: pulses 2+ throughout GI Common normals: Normal to inspection, nondistended, normoactive bowel sounds present, soft to palpation and non-tender Palpation: soft Bladder/kidney exam: bladder normal to palpation Extremity Common normals: normal to inspection, full ROM and normal capillary refill General: edema (1+ bilat insteps/ankles); no clubbing and no cyanosis Neuro Common normals: oriented x3, CN's II-XII intact bilaterally, moves all extremities, no focal motor deficits and no sensory deficits noted Sensorium/orientation: awake and alert Speech: speech normal Psych Common normals: mental status grossly normal and activity/motor behavior normal Appearance: grossly normal DS: Data Data Completed and Pending Labs on day of discharge: Labs from last 24 hours 04/10/23 04/10/23 04/10/23 11:12 07:19 05:37 WBC 23.4 H RBC 4.94 Hgb 15.7 Hct 46.6 MCV 94.3 H MCH 31.8 MCHC 33.7 RDW 12.5 Plt Count 261 MPV 10.4 Neut % (Auto) 93.6 H Lymph % (Auto) 1.9 L Garden % (Auto) 3.4 Eos % (Auto) 0.0 L Baso % (Auto) 0.2 Neut # (Auto) 21.9 H Lymph # (Auto) 0.5 L Garden # (Auto) 0.8 Eos # (Auto) 0.0 Baso # (Auto) 0.0 Abs Immat Gran (auto) 0.20 H Imm/Tot Granulo (auto) 0.9 H Sodium 135 L Potassium 4.6 Chloride 99 Carbon Dioxide 30.2 Anion Gap 10.4 BUN 27.0 H Creatinine 0.89 Est GFR ( Amer) >60 Est GFR (Non-Af Amer) >60 BUN/Creatinine Ratio 30.3 Glucose 183 H Calcium 8.7 NT-Pro-B Natriuret Pep 1478.0 H* Digoxin 3.2 H* POC Glucose 335 H 158 H 04/09/23 04/09/23 21:16 16:34 WBC RBC Hgb Hct MCV MCH MCHC RDW Plt Count MPV Neut % (Auto) Lymph % (Auto) Garden % (Auto) Eos % (Auto) Baso % (Auto) Neut # (Auto) Lymph # (Auto) Garden # (Auto) Eos # (Auto) Baso # (Auto) Abs Immat Gran (auto) Imm/Tot Granulo (auto) Sodium Potassium Chloride Carbon Dioxide Anion Gap BUN Creatinine Est GFR ( Amer) Est GFR (Non-Af Amer) BUN/Creatinine Ratio Glucose Calcium NT-Pro-B Natriuret Pep Digoxin POC Glucose 270 H 270 H Imaging CTA Chest: Attestation: I have reviewed the pertinent imaging results. Radiologist's impression: 04/08/23 IMPRESSION: 1. No evidence of pulmonary embolism. 2. Small bilateral pulmonary nodules do not appear significantly changed dating back to 08/14/2020, consistent with benign etiology. Mildly enlarged paratracheal lymph node in the superior mediastinum is stable, consistent with benign etiology. 3. Previously documented pleural-based interstitial and airspace opacities at the lung bases shows generalized interval improvement compared to prior studies dating back to 08/14/2020, with one small focus of mildly increased interstitial prominence at the lateral right lung base. Waxing/waning pattern suggests chronic interstitial inflammatory change, but is nonspecific. 2D Echo: Attestation: I have reviewed the pertinent imaging results. Radiologist's impression: 04/08/23 CONCLUSION: 1. Global left ventricular systolic function is normal; visually estimated ejection fraction is 65% 2. The right ventricle is mildly dilated with normal systolic function 3. The right atrium is moderately dilated 4. Mildly elevated right ventricular systolic pressure; RVSP 36 mmHg 5. No significant valvular abnormalities 6. Anterior free space; trivial effusion versus fat pad Chest x-ray: Attestation: I have reviewed the pertinent imaging results. Radiologist's impression: 04/09/23 IMPRESSION: 1. Trace amount of discoid atelectasis or possibly infiltrates within lateral lung bases. Discharge Plan Discharge Disposition: Home, Self-Care Condition: Good Discharge Medications: New diltiazem HCl 240 mg capsule,extended release 24hr 240 mg PO DAILY Qty: 30 0RF Eliquis 5 mg Tablet 5 mg PO BID 30 Days Qty: 60 0RF metoprolol tartrate 25 mg Tablet 25 mg PO BID 30 Days Qty: 60 0RF levofloxacin 750 mg tablet 750 mg PO DAILY 5 Days Qty: 5 0RF prednisone 10 mg tablet See Rx Instructions .ROUTE .COMPLEX Qty: 42 0RF Rx Instructions: 6 tabs daily x 2 days, then 5 tabs daily x 2 days, then 4 tabs daily x 2 days, then 3 tabs daily x 2 days, then 2 tabs daily x 2 days, then 1 tab daily x 2 days, then STOP levalbuterol tartrate 45 mcg/actuation HFA aerosol inhaler 2 inh inhalation Q4H PRN (Reason: shortness of breath or wheezing) Qty: 15 0RF Continued atorvastatin 40 mg tablet 40 mg PO Q24H losartan 50 mg tablet 50 mg PO Q24H Discontinued diltiazem HCl 180 mg capsule,ext.rel 24h degradable 180 mg PO Q24H Activity: increase activity as tolerated Diet: advance to your usual diet Patient Instructions: Metoprolol (By mouth), Apixaban (By mouth) (Eliquis), A- fib (Atrial Fibrillation) (DC) Activity Restrictions/Additional Instructions: *Follow up with usual jail keeper on Sunday as scheduled *Follow up with your PCP in 3-5 days Forms: Portal Instructions Follow Up Appointments: *Appt with Eusebia Terrell 04/11/2023 at 10:20 AM* *Follow up with usual jail keeper on Sunday as scheduled*
--- NOTE | 2023-04-10 15:03 | SWNOTE1 ---
JANN received message from GENESIS Roper and pt will be discharged home on eliquis and he is new to the medication. JANN took patient the free 30 day trial and let him know to present the card to pharmacy with his script and he will get a free 30 day trial. JANN let him know the medication can be expensive. JANN told pt to see how much it would be under his caresource after the 30 days when he goes to the pharmacy.
--- NOTE | 2023-04-11 14:55 | CM.DCFOLLOWU ---
Unable to connect with the patient. Called the number provided in the chart. A lady answered and stated no Dmitriy nor Mr. Duong lived at that residence. Double checked phone number at this time and dialed same number provided in chart.
== END 2023-04-10 17:15 | disposition home or self-care (01) | DRG 308 ==
LOC: ER 11:42 → ICU 13:18
PROVIDERS: Family Medicine; Admitting Provider Family Medicine; Emergency Provider Emergency Medicine; PCP Nurse Practitioner; Visit Provider Nurse Practitioner
DX: I48.0 Paroxysmal atrial fibrillation (principal); J18.9 Pneumonia, unspecified organism; J44.1 Chronic obstructive pulmonary disease with (acute) exacerbation; J44.0 Chronic obstructive pulmonary disease with (acute) lower respiratory infection; Z68.43 Body mass index [BMI] 50.0-59.9, adult; J40 Bronchitis, not specified as acute or chronic; R00.0 Tachycardia, unspecified; I10 Essential (primary) hypertension; I25.10 Atherosclerotic heart disease of native coronary artery without angina pectoris; R73.03 Prediabetes; G47.33 Obstructive sleep apnea (adult) (pediatric); E66.01 Morbid (severe) obesity due to excess calories; R09.02 Hypoxemia; E87.70 Fluid overload, unspecified; D72.829 Elevated white blood cell count, unspecified; Z87.891 Personal history of nicotine dependence; Z79.82 Long term (current) use of aspirin; Z79.899 Other long term (current) drug therapy; Z95.5 Presence of coronary angioplasty implant and graft; Z90.49 Acquired absence of other specified parts of digestive tract
CPT/HCPCS: 0202U; 36415; 71045; 71046; 71275; 80048; 80053; 80162; 82948; 83036; 83605; 83735; 83880; 84439; 84443; 84484; 85025; 85610; 87070; 87205; 93005; 93306; 94640; 94667; 94668; 94761; 96365; 96366; 96367; 96368; 96375; 96376; 99285; J2930; Q9967

== ENCOUNTER 2023-04-23 07:40 | Outpatient (OUT) | payer OTHER, SELFPAY ==
[2023-04-23 08:42] LABS: Anion Gap 6.8; BUN Creatinine Ratio 19.4; Calcium 8.4 mg/dL (8.5-10.1); Carbon Dioxide 34.3 mmol/L (21.0-32.0); Chloride 99 mmol/L (98-107); Estimated GFR (African America >60 (>=60); Estimated GFR (Non-African Ame >60 (>=60); Free T3 3.14 pg/mL (2.18-3.98); Glucose 107 mg/dL (74-106); Potassium 4.1 mmol/L (3.5-5.1); Sodium 136 mmol/L (136-145); Thyroid Stimulating Hormone 0.273 uIU/mL (0.358-3.740)
[2023-04-23 08:45] LABS: Free T4 1.09 ng/dL (0.76-1.46)
== END 2023-04-23 07:41 | disposition home or self-care (01) ==
LOC: LAB 07:40
PROVIDERS: PCP Nurse Practitioner; Visit Provider Nurse Practitioner
DX: R79.89 Other specified abnormal findings of blood chemistry (principal); R60.0 Localized edema
CPT/HCPCS: 36415; 80048; 84439; 84443; 84481

== ENCOUNTER 2023-04-26 12:28 | Outpatient (OUT) | payer OTHER, SELFPAY ==
--- NOTE | 2023-04-26 15:59 | RESP.RT ---
see scanned copy for details
--- NOTE | 2023-04-30 12:31 | W.PM.PROCNOT ---
Date of procedure: 04/30/23 Procedure: 6-Minute Walk Test Indication: COPD, Hypoxia Baseline data: Initial blood pressure: 113/69 Initial heart rate: 73 Initial oxygenation: SpO2 94% on room air. Initial Deandre score: 2 MMRC: 3 Procedure: A 6-Minute Walk Test was initiated according to standard protocol. The patient ambulated for a total of 1 minutes with the lowest documented SpO2 measured at 73% on room air with a maximum heart rate of 109. This test was stopped, with supplemental O2 applied at 2L/min. A second 6-Minute Walk Test was then initiated. The patient ambulated for a total 6 minutes with the lowest documented SpO2 measured at 85% on 2L/min. Flow was titrated up to 3L/min, with lowest SpO2 on this flow @ 91%, with maximum heart rate 120. The maximum Deandre score was 5. Symptoms reported: Dyspnea. During recovery, blood pressure was 91/62 with a heart rate of 102. SpO2 was 98% on 3L/min, with Deandre score 2. Total number of stops: 4. Total distance walked was 366m, which was 139% of predicted walk distance. Impressions: Ambulatory desaturations noted, requiring titration of O2 up to 3L/min to maintain SpO2 >88%. Multiple stops for dyspnea, but exceeded expected walk distance despite this. Recommendations: Supplemental O2 @ 3L/min with activity/ambulation. Clinical correlation required.
== END 2023-04-26 12:29 | disposition home or self-care (01) ==
LOC: CARD 12:30
PROVIDERS: PCP Nurse Practitioner; Visit Provider Nurse Practitioner
DX: J43.9 Emphysema, unspecified (principal); R09.02 Hypoxemia
CPT/HCPCS: 94618

== ENCOUNTER 2023-05-23 12:59 | Outpatient (OUT) | payer OTHER, SELFPAY ==
--- NOTE | 2023-05-23 13:04 | MR_ITS ---
[address] [address] Patient Name: ELYSE LEAHY MRN: [id number] date: 1965 Sex: M Assigned Patient Location: MRI Current Patient Location: Accession/Order Number: [id number] Exam Date: 05/23/2023 13:10 Report Date: 05/24/2023 01:40 At the request of: LILLY CAMPBELL Procedure: MR knee RT wo con EXAMINATION: MR knee RT wo con HISTORY: sprain of right knee, strain of right knee COMPARISON: MRI knee right 12/04/2022 TECHNIQUE: A complete multi-planar MRI was performed. FINDINGS: MEDIAL COMPARTMENT MEDIAL MENISCUS: No visible tear or significant degeneration. CARTILAGE: No visible defect. BONES: No marrow pathology, fracture, or significant arthropathy. MCL AND MEDIAL CAPSULE: Normal medial collateral ligament and medial capsule. LATERAL COMPARTMENT LATERAL MENISCUS: No visible tear or significant degeneration. CARTILAGE: No visible defect. BONES: No marrow pathology, fracture, or significant arthropathy. LCL/POSTEROLAT COMPLEX: Normal lateral collateral ligament, fascicles, lateral capsule and ligaments. ANTERIOR COMPARTMENT PATELLA: Small focal area of subchondral edema involving the mid body of patella apex. CARTILAGE: Suspect mid patellar apex small cartilage defect/tear. TENDONS: Normal. EFFUSION: Small joint effusion. ACL: Normal appearing ligament. PCL: Normal appearing ligament. MENISCOFEMORAL: Normal meniscofemoral ligaments. OTHER: Subcutaneous edema. MR/MR knee RT wo con IMPRESSION: 1. 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 2. Small joint effusion. 3. Subcutaneous edema. Electronically authenticated by: KESHAWN PECK Date: 05/24/2023 01:40
== END 2023-05-23 13:00 | disposition home or self-care (01) ==
PROVIDERS: PCP Nurse Practitioner; Visit Provider Nurse Practitioner Family
DX: S83.91XA Sprain of unspecified site of right knee, initial encounter (principal); M25.461 Effusion, right knee
CPT/HCPCS: 73721

== ENCOUNTER 2023-06-04 14:05 | Emergency (ER) | payer OTHER, SELFPAY ==
[2023-06-04 14:22] VITALS: BP 137/68; PULSE 76; RESP 22; TEMP 36.6; O2SAT 93; BMI 54.7
--- NOTE | 2023-06-04 14:36 | US_ITS ---
The [address] [address] Patient Name: ELYSE LEAHY MRN: [id number] date: 1965 Sex: M Assigned Patient Location: ER Current Patient Location: ER Accession/Order Number: [id number] Exam Date: 06/04/2023 15:59 Report Date: 06/04/2023 17:25 At the request of: ALEXSANDRA LINK Procedure: US venous doppler LE BI EXAM: US venous doppler LE BI HISTORY: DVT COMPARISON: None. TECHNIQUE: Evaluation of the deep veins of the bilateral lower extremities was performed utilizing B-mode, color flow and spectral analysis. FINDINGS: Right lower extremity: The visualized vessels comprising the deep venous systems from the common femoral vein through the calf veins demonstrate appropriate compressibility, spontaneous color Doppler flow, and augmentation of flow on spectral Doppler with distal compression. Left lower extremity: The visualized vessels comprising the deep venous systems from the common femoral vein through the calf veins demonstrate appropriate compressibility, spontaneous color Doppler flow, and augmentation of flow on spectral Doppler with distal compression. Additional findings: Right lower extremity edema is noted. US/US venous doppler LE BI IMPRESSION: No sonographic evidence of deep venous thrombosis of the bilateral lower extremities. Electronically authenticated by: UMM SCHULTZ Date: 06/04/2023 17:25
--- NOTE | 2023-06-04 14:38 | ED.GENADUL1 ---
HPI - General Adult General Chief complaint: Extremity Problem, Nontraumatic Stated complaint: SWELLING IN LEGS Time Seen by Provider: 06/04/23 14:20 Source: patient Mode of arrival: walk-in History of Present Illness HPI narrative: Patient is a 57-year-old male who presents to the emergency department for swelling, drainage to the lower legs. He states the left lower extremity has been red and swollen with clear serous drainage for some time but the right leg has just started in the last several days. He does have a history of cellulitis. He has a history of similar problems in the past. He denies fevers, chills, nausea, vomiting. He states the legs are sore. No falls or injuries. He is anticoagulated with Eliquis for history of A-fib. He denies any history of DVT or PE. Related Data Home Medications Medication Instructions Recorded Confirmed atorvastatin 40 mg tablet 40 mg PO Q24H 04/08/23 04/08/23 losartan 50 mg tablet 50 mg PO Q24H 04/08/23 04/08/23 Previous Rx's Medication Instructions Recorded apixaban 5 mg tablet (Eliquis) 5 mg PO BID 30 days #60 tabs 04/10/23 diltiazem HCl 240 mg 240 mg PO DAILY #30 caps 04/10/23 capsule,extended release 24 hr levalbuterol tartrate 45 2 inh inhalation Q4H PRN shortness 04/10/23 mcg/actuation aerosol inhaler of breath or wheezing #15 grams levofloxacin 750 mg tablet 750 mg PO DAILY 5 days #5 tabs 04/10/23 metoprolol tartrate 25 mg tablet 25 mg PO BID 30 days #60 tabs 04/10/23 prednisone 10 mg tablet See Rx Instructions .Route 04/10/23 .COMPLEX #42 tabs clindamycin HCl 150 mg capsule 300 mg (2 x 150 mg) PO Q6H 10 days 06/04/23 #80 caps hydrocodone 5 mg-acetaminophen 325 1 tab PO Q6H PRN pain #12 tabs 06/04/23 mg tablet Allergies Allergy/AdvReac Type Severity Reaction Status Date / Time No Known Drug Allergies Allergy Verified 04/08/23 07:42 Review of Systems ROS Constitutional Denies: fever or chills Ears, nose, mouth, and throat Denies: throat pain Cardiovascular Reports: swelling of feet/ankles; Denies: chest pain Respiratory Denies: shortness of breath or cough Gastrointestinal Denies: nausea or vomiting Musculoskeletal Reports: extremity pain and extremity swelling Integumentary/Breast Reports: skin pain and skin tenderness; Denies: rash Hematologic/Lymphatic Reports: easy bruising and easy bleeding PFSH PFS Medical History (Updated 06/04/23 @ 17:40 by KARISHMA Mejia) Prediabetes ?R73.03 - Prediabetes (ICD-10) Benign essential hypertension ?I10 - Essential (primary) hypertension (ICD-10) Paroxysmal atrial fibrillation ?I48.0 - Paroxysmal atrial fibrillation (ICD-10) COPD (chronic obstructive pulmonary disease) ?J44.9 - Chronic obstructive pulmonary disease, unspecified (ICD-10) Coronary artery disease ?I25.10 - Atherosclerotic heart disease of [place] coronary artery without angina pectoris (ICD-10) CATERINA (obstructive sleep apnea) ?G47.33 - Obstructive sleep apnea (adult) (pediatric) (ICD-10) Cellulitis ?L03.90 - Cellulitis, unspecified (ICD-10) Surgical History (Updated 04/08/23 @ 13:25 by Zuleyka Merritt) Hx of cholecystectomy ?Z90.49 - Acquired absence of other specified parts of digestive tract (ICD-10) H/O heart artery stent ?Z95.5 - Presence of coronary angioplasty implant and graft (ICD-10) Social History Within the past year, how often did you have a drink containing alcohol: never Score interpretation: A score less than 4 is consistent with normal alcohol consumption. Smoking status: Former smoker Exam Narrative Exam Narrative: Gen.: Awake, alert, in no distress; morbidly obese male Head: Normocephalic, atraumatic ENT: Moist mucous membranes Respiratory: No respiratory distress Extremities: Moves extremities equally, lower extremities with swelling distal to the knees bilaterally. Multiple small open areas draining clear serous fluid. No purulence or fluctuance noted. Mild erythema noted of the left lower extremity with no significant erythema of the right lower extremity. Pitting edema noted Psych: Normal mood and affect Neuro: No focal neuro deficit Skin: Warm, dry, intact Constitutional Vital Signs, click to edit/add: Last Vital Signs Temp 97.3 F L 06/04/23 17:25 Pulse 106 H 06/04/23 17:25 Resp 20 06/04/23 17:25 BP 122/81 06/04/23 17:25 Pulse Ox 96 06/04/23 17:25 O2 Del Method Room Air 06/04/23 17:25 Course Vital Signs Vital signs: Vital Signs Temperature 97.9 F 06/04/23 14:22 Pulse Rate 76 06/04/23 14:22 Respiratory Rate 22 06/04/23 14:22 Blood Pressure 137/68 06/04/23 14:22 Pulse Oximetry 93 L 06/04/23 14:22 Oxygen Delivery Method Room Air 06/04/23 14:22 Temperature 97.3 F L 06/04/23 17:25 Pulse Rate 106 H 06/04/23 17:25 Respiratory Rate 20 06/04/23 17:25 Blood Pressure 122/81 06/04/23 17:25 Pulse Oximetry 96 06/04/23 17:25 Oxygen Delivery Method Room Air 06/04/23 17:25 Medical Decision Making MDM Narrative Medical decision making narrative: Lab studies show normal white blood cell count, normal lactic acid, vital signs are stable. Ultrasound with no evidence of DVT and patient has no evidence of renal failure. He is treated with IV clindamycin in the ER for cellulitis and discharged home on cellulitis and a short course of analgesics. Elevate the legs, follow-up with Pcp and return to the ER if symptoms change or worsen Medical Records Medical records reviewed: Yes I reviewed the patient's medical records Lab Data Lab results reviewed: Yes I reviewed the patient's lab results Labs: Lab Results 06/04/23 06/04/23 Range/Units 15:38 15:46 WBC 7.1 (4.0-11.0) 10^3/uL RBC 4.77 (4.70-6.10) 10^6/uL Hgb 14.9 (14.0-18.0) g/dL Hct 45.1 (42.0-54.0) % MCV 94.5 H (80.0-94.0) fL MCH 31.2 (25.9-34.0) pg MCHC 33.0 (29.9-35.2) g/dL RDW 12.1 (11.0-15.0) % Plt Count 261 (150-450) 10^3/uL MPV 9.9 (9.5-13.5) fL Neut % (Auto) 65.9 (43.0-75.0) % Lymph % (Auto) 20.5 (20.5-60.0) % [place] % (Auto) 11.7 (1.7-12.0) % Eos % (Auto) 1.7 (0.9-7.0) % Baso % (Auto) 0.1 L (0.2-2.0) % Neut # (Auto) 4.7 (1.4-6.5) 10^3/uL Lymph # (Auto) 1.5 (1.2-3.8) 10^3/uL [place] # (Auto) 0.8 (0.3-0.8) 10^3/uL Eos # (Auto) 0.1 (0.0-0.7) 10^3/uL Baso # (Auto) 0.0 (0.0-0.1) 10^3/uL Abs Immat Gran (auto) 0.01 (0.00-0.03) 10^3/uL Imm/Tot Granulo (auto) 0.1 (0.0-0.5) % ESR 51 H (<=20) mm/hr Sodium 138 (136-145) mmol/L Potassium 4.1 (3.5-5.1) mmol/L Chloride 98 (98-107) mmol/L Carbon Dioxide 36.5 H (21.0-32.0) mmol/L Anion Gap 7.6 BUN 14.0 (7.0-18.0) mg/dL Creatinine 1.02 (0.70-1.30) mg/dL Est GFR ( Amer) >60 (>=60) Est GFR (Non-Af Amer) >60 (>=60) BUN/Creatinine Ratio 13.7 Glucose 87 (74-106) mg/dL Lactate 0.8 (0.4-2.0) mmol/L Calcium 9.0 (8.5-10.1) mg/dL Total Bilirubin 0.7 (0.2-1.0) mg/dL AST 17 (15-37) U/L ALT 24 (16-63) U/L Alkaline Phosphatase 140 H (46-116) U/L C-Reactive Protein 1.47 H (<=0.50) mg/dL NT-Pro-B Natriuret Pep 328.0 (<=900.0) pg/mL Total Protein 7.2 (6.4-8.2) g/dL Albumin 3.3 L (3.4-5.0) g/dL Globulin 3.9 g/dL Albumin/Globulin Ratio 0.8 Imaging Data Venous US: Attestation: I have reviewed the pertinent imaging results. Discharge Plan Discharge Chief Complaint: Extremity Problem, Nontraumatic Clinical Impression: Edema of both lower legs, Cellulitis Patient Disposition: Home, Self-Care Time of Disposition Decision: 17:40 Condition: Good Prescriptions / Home Meds: New hydrocodone-acetaminophen 5-325 mg tablet 1 tab PO Q6H PRN (Reason: pain) Qty: 12 0RF Rx Instructions: DX: L03.119 clindamycin HCl 150 mg capsule 300 mg PO Q6H 10 Days Qty: 80 0RF No Action atorvastatin 40 mg tablet 40 mg PO Q24H losartan 50 mg tablet 50 mg PO Q24H diltiazem HCl 240 mg capsule,extended release 24hr 240 mg PO DAILY Qty: 30 0RF Eliquis 5 mg Tablet 5 mg PO BID 30 Days Qty: 60 0RF metoprolol tartrate 25 mg Tablet 25 mg PO BID 30 Days Qty: 60 0RF levofloxacin 750 mg tablet 750 mg PO DAILY 5 Days Qty: 5 0RF prednisone 10 mg tablet See Rx Instructions .ROUTE .COMPLEX Qty: 42 0RF Rx Instructions: 6 tabs daily x 2 days, then 5 tabs daily x 2 days, then 4 tabs daily x 2 days, then 3 tabs daily x 2 days, then 2 tabs daily x 2 days, then 1 tab daily x 2 days, then STOP levalbuterol tartrate 45 mcg/actuation HFA aerosol inhaler 2 inh inhalation Q4H PRN (Reason: shortness of breath or wheezing) Qty: 15 0RF Instructions: Cellulitis (ED), Leg Edema (ED) Stand Alone Forms: Portal Instructions Referrals: Eusebia Terrell ELECTROCARDIOGRAPHIC TECHNICIAN [Primary Care Provider] - As soon as possible
[2023-06-04] MEDS: CLINDAMYCIN PHOSPHATE/D5W 600 MG/50 ML PIGGYBACK 100 MG IV (15:37)
[2023-06-04 15:45] LABS: Basophils Percent Auto 0.1 % (0.2-2.0); Eosinophils Absolute Auto 0.1 10^3/uL (0.0-0.7); Eosinophils Percent Auto 1.7 % (0.9-7.0); Hematocrit 45.1 % (42.0-54.0); Hemoglobin 14.9 g/dL (14.0-18.0); Immature Granulocytes Abs Auto 0.01 10^3/uL (0.00-0.03); Immature Granulocytes Pct Auto 0.1 % (0.0-0.5); Lymphocytes Absolute Auto 1.5 10^3/uL (1.2-3.8); Lymphocytes Percent Auto 20.5 % (20.5-60.0); Mean Corpuscular Hemoglobin 31.2 pg (25.9-34.0); Mean Corpuscular Volume 94.5 fL (80.0-94.0); Mean Platelet Volume 9.9 fL (9.5-13.5); Monocytes Absolute Auto 0.8 10^3/uL (0.3-0.8); Monocytes Percent Auto 11.7 % (1.7-12.0); Neutrophils Absolute Auto 4.7 10^3/uL (1.4-6.5); Neutrophils Percent Auto 65.9 % (43.0-75.0); Platelet Count 261 10^3/uL (150-450); Red Blood Count 4.77 10^6/uL (4.70-6.10); Red Cell Distribution Width 12.1 % (11.0-15.0); White Blood Count 7.1 10^3/uL (4.0-11.0)
[2023-06-04 15:56] LABS: Alanine Aminotransferase 24 U/L (16-63); Albumin Globulin Ratio 0.8; Albumin Level 3.3 g/dL (3.4-5.0); Alkaline Phosphatase 140 U/L (46-116); Anion Gap 7.6; Aspartate Amino Transferase 17 U/L (15-37); BUN Creatinine Ratio 13.7; Bilirubin Total 0.7 mg/dL (0.2-1.0); Carbon Dioxide 36.5 mmol/L (21.0-32.0); Chloride 98 mmol/L (98-107); Estimated GFR (African America >60 (>=60); Estimated GFR (Non-African Ame >60 (>=60); Globulin 3.9 g/dL; Glucose 87 mg/dL (74-106); Potassium 4.1 mmol/L (3.5-5.1); Sodium 138 mmol/L (136-145); Total Protein 7.2 g/dL (6.4-8.2)
[2023-06-04 16:02] LABS: Lactate/Lactic Acid 0.8 mmol/L (0.4-2.0)
[2023-06-04 16:03] LABS: C Reactive Protein 1.47 mg/dL (<=0.50)
[2023-06-04 16:21] LABS: Erythrocyte Sedimentation Rate 51 mm/hr (<=20)
[2023-06-04 17:25] VITALS: BP 122/81; PULSE 106; RESP 20; TEMP 36.3; O2SAT 96
[2023-06-04 17:46] VITALS: PULSE 100; RESP 18; TEMP 36.3; O2SAT 95
== END 2023-06-04 17:57 | disposition home or self-care (01) ==
PROVIDERS: Physician Assistant; Emergency Provider Emergency Medicine; PCP Nurse Practitioner
DX: L03.115 Cellulitis of right lower limb (principal); L03.116 Cellulitis of left lower limb; R60.0 Localized edema; Z79.01 Long term (current) use of anticoagulants; I10 Essential (primary) hypertension; I48.0 Paroxysmal atrial fibrillation; R73.03 Prediabetes; J44.9 Chronic obstructive pulmonary disease, unspecified; I25.10 Atherosclerotic heart disease of native coronary artery without angina pectoris; G47.33 Obstructive sleep apnea (adult) (pediatric); Z90.49 Acquired absence of other specified parts of digestive tract; Z87.2 Personal history of diseases of the skin and subcutaneous tissue; Z95.5 Presence of coronary angioplasty implant and graft; Z87.891 Personal history of nicotine dependence; E66.01 Morbid (severe) obesity due to excess calories; Z68.43 Body mass index [BMI] 50.0-59.9, adult
CPT/HCPCS: 36415; 80053; 83605; 83880; 85025; 85652; 86140; 87040; 93970; 96365; 99285

== ENCOUNTER 2023-06-13 13:32 | Outpatient (OUT) | payer OTHER, SELFPAY ==
[2023-06-13 14:37] LABS: Anion Gap 7.3; BUN Creatinine Ratio 14.3; Calcium 9.3 mg/dL (8.5-10.1); Carbon Dioxide 33.5 mmol/L (21.0-32.0); Chloride 99 mmol/L (98-107); Estimated GFR (African America >60 (>=60); Estimated GFR (Non-African Ame >60 (>=60); Glucose 97 mg/dL (74-106); Potassium 3.8 mmol/L (3.5-5.1); Sodium 136 mmol/L (136-145)
== END 2023-06-13 13:33 | disposition home or self-care (01) ==
LOC: LAB 13:32
PROVIDERS: PCP Nurse Practitioner; Visit Provider Nurse Practitioner
DX: R60.0 Localized edema (principal); I10 Essential (primary) hypertension
CPT/HCPCS: 36415; 80048

== ENCOUNTER 2023-06-16 00:11 | Inpatient (IN) | payer OTHER, SELFPAY ==
[2023-06-16] VITALS (63 sets, daily range): BP systolic 88–174; BP diastolic 54–101; PULSE 64–129; RESP 12–36; TEMP 36.8–37.7; O2SAT 85–95; BMI 56.4; BMI 56.3
--- NOTE | 2023-06-16 00:16 | ECG_ITS ---
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: : 1965 Requested By: CHARY FELICIANO Order Number: [id number] Reading MD: MOHIT ULLOA Measurements Intervals [place] Rate: 121 P: -19925 MO: -45648 QRS: 75 QRSD: 120 T: 4 QT: 376 QTc: 448 Interpretive Statements 16231 Atrial fibrillation with rapid ventricular response with aberrant conduction, or ventricular premature complexes 2320 Nonspecific intraventricular conduction delay 24365 Twave abnormality, possible anterolateral ischemia or digitalis effect 40108 Twave abnormality, possible inferior ischemia or digitalis effect 9150 abnormal ECG Electronically Signed On 06-18-2023 17:27:49 EST by MOHIT ULLOA
--- NOTE | 2023-06-16 00:17 | ED_ITS ---
HPI - SOB/Dyspnea General Chief Complaint: Shortness of Breath/Dyspnea Stated Complaint: sob Time Seen by Provider: 06/16/23 00:12 Source: patient Mode of arrival: ambulance History of Present Illness HPI Narrative: 57-year-old male presents for shortness breath and cough. He's been sick for several days and he saw his PCP who prescribed him Tessalon Perles. He's been coughing up some yellow phlegm. Heart rate was noted to be somewhat elevated by paramedics, the patient has a history of atrial fibrillation. He's been taking his medication. He doesn't have a thermometer at home so he didn't check his temperature. No hemoptysis. Related Data Home Medications Medication Instructions Recorded Confirmed atorvastatin 40 mg tablet 40 mg PO Q24H 04/08/23 04/08/23 losartan 50 mg tablet 50 mg PO Q24H 04/08/23 04/08/23 Previous Rx's Medication Instructions Recorded apixaban 5 mg tablet (Eliquis) 5 mg PO BID 30 days #60 tabs 04/10/23 diltiazem HCl 240 mg 240 mg PO DAILY #30 caps 04/10/23 capsule,extended release 24 hr levalbuterol tartrate 45 2 inh inhalation Q4H PRN shortness 04/10/23 mcg/actuation aerosol inhaler of breath or wheezing #15 grams levofloxacin 750 mg tablet 750 mg PO DAILY 5 days #5 tabs 04/10/23 metoprolol tartrate 25 mg tablet 25 mg PO BID 30 days #60 tabs 04/10/23 prednisone 10 mg tablet See Rx Instructions .Route 04/10/23 .COMPLEX #42 tabs clindamycin HCl 150 mg capsule 300 mg (2 x 150 mg) PO Q6H 10 days 06/04/23 #80 caps hydrocodone 5 mg-acetaminophen 325 1 tab PO Q6H PRN pain #12 tabs 06/04/23 mg tablet Allergies Allergy/AdvReac Type Severity Reaction Status Date / Time No Known Drug Allergies Allergy Verified 04/08/23 07:42 Review of Systems ROS Narrative A ten point review of systems is negative except as noted above. [facility] Medical History (Updated 06/16/23 @ 01:56 by Storm Tsai MD) Prediabetes ?R73.03 - Prediabetes (ICD-10) Benign essential hypertension ?I10 - Essential (primary) hypertension (ICD-10) Paroxysmal atrial fibrillation ?I48.0 - Paroxysmal atrial fibrillation (ICD-10) COPD (chronic obstructive pulmonary disease) ?J44.9 - Chronic obstructive pulmonary disease, unspecified (ICD-10) Coronary artery disease ?I25.10 - Atherosclerotic heart disease of [place] coronary artery without angina pectoris (ICD-10) CATERINA (obstructive sleep apnea) ?G47.33 - Obstructive sleep apnea (adult) (pediatric) (ICD-10) Cellulitis ?L03.90 - Cellulitis, unspecified (ICD-10) Surgical History (Updated 04/08/23 @ 13:25 by Zuleyka Merritt) Hx of cholecystectomy ?Z90.49 - Acquired absence of other specified parts of digestive tract (ICD- 10) H/O heart artery stent ?Z95.5 - Presence of coronary angioplasty implant and graft (ICD-10) Social History Within the past year, how often did you have a drink containing alcohol: never Score interpretation: A score less than 4 is consistent with normal alcohol consumption. Smoking status: Former smoker Exam Narrative Exam Narrative: Nurses note and vital signs reviewed and patient is not hypoxic. General: The patient appears well and in no apparent distress. Patient is resting comfortably on cart. Skin: Warm, dry, no pallor noted. There is no rash noted. Head: Normocephalic, atraumatic Eye: Normal conjunctiva, no drainage Ears, Nose, Mouth, and Throat: oral mucosa is moist. Nares patent. Cardiovascular: irregularly irregular and tachycardic Respiratory: bilateral rhonchi present Back: non-tender GI: obese and nontender Musculoskeletal: The patient has no evidence of calf tenderness, no pitting edema, symmetrical pulses noted bilaterally Neurological: A&O, normal speech Psychiatric: Cooperative Constitutional Vital Signs, click to edit/add: Last Vital Signs Temp 99.9 F 06/16/23 00:12 Pulse 129 H 06/16/23 00:12 Resp 22 06/16/23 00:12 BP 114/60 06/16/23 00:12 Pulse Ox 90 L 06/16/23 00:32 O2 Del Method Nasal Cannula 06/16/23 00:32 O2 Flow Rate 3 06/16/23 00:32 Course Vital Signs Vital signs: Vital Signs Temperature 99.9 F 06/16/23 00:12 Pulse Rate 129 H 06/16/23 00:12 Respiratory Rate 22 06/16/23 00:12 Blood Pressure 114/60 06/16/23 00:12 Pulse Oximetry 89 L 06/16/23 00:12 Oxygen Delivery Method Nasal Cannula 06/16/23 00:12 Oxygen Delivery Flow Rate 3 06/16/23 00:12 Temperature 99.9 F 06/16/23 00:12 Pulse Rate 129 H 06/16/23 00:12 Respiratory Rate 22 06/16/23 00:12 Blood Pressure 114/60 06/16/23 00:12 Pulse Oximetry 90 L 06/16/23 00:32 Oxygen Delivery Method Nasal Cannula 06/16/23 00:32 Oxygen Delivery Flow Rate 3 06/16/23 00:32 MDM - SOB/Dyspnea MDM Narrative Medical decision making narrative: the patient presents with atrial fibrillation and RVR. He was given IV Cardizem bolus and then placed on a drip. Chest x-ray per radiologist suggests bibasilar infiltrates of blood cultures were obtained and he was given IV Rocephin and Zithromax. Covid and influenza tests are negative. He is being admitted to the ICU. Treatment diagnosis and disposition were discussed with the patient. Differential Diagnosis Differential diagnosis: Likely acute exacerbation of chronic obstructive airways disease, congestive heart failure, community acquired pneumonia and other (atrial fibrillation, pulmonary edema) Lab Data Attestation: I reviewed the patient's lab results. Labs: Lab Results 06/16/23 Range/Units 00:23 WBC 7.0 (4.0-11.0) 10^3/uL RBC 4.80 (4.70-6.10) 10^6/uL Hgb 15.1 (14.0-18.0) g/dL Hct 46.3 (42.0-54.0) % MCV 96.5 H (80.0-94.0) fL MCH 31.5 (25.9-34.0) pg MCHC 32.6 (29.9-35.2) g/dL RDW 11.9 (11.0-15.0) % Plt Count 230 (150-450) 10^3/uL MPV 10.1 (9.5-13.5) fL Neut % (Auto) 70.5 (43.0-75.0) % Lymph % (Auto) 14.9 L (20.5-60.0) % [place] % (Auto) 13.1 H (1.7-12.0) % Eos % (Auto) 1.0 (0.9-7.0) % Baso % (Auto) 0.4 (0.2-2.0) % Neut # (Auto) 4.9 (1.4-6.5) 10^3/uL Lymph # (Auto) 1.0 L (1.2-3.8) 10^3/uL [place] # (Auto) 0.9 H (0.3-0.8) 10^3/uL Eos # (Auto) 0.1 (0.0-0.7) 10^3/uL Baso # (Auto) 0.0 (0.0-0.1) 10^3/uL Abs Immat Gran (auto) 0.01 (0.00-0.03) 10^3/uL Imm/Tot Granulo (auto) 0.1 (0.0-0.5) % Sodium 137 (136-145) mmol/L Potassium 3.8 (3.5-5.1) mmol/L Chloride 97 L (98-107) mmol/L Carbon Dioxide 39.0 H (21.0-32.0) mmol/L Anion Gap 4.8 BUN 15.0 (7.0-18.0) mg/dL Creatinine 1.12 (0.70-1.30) mg/dL Est GFR ( Amer) >60 (>=60) Est GFR (Non-Af Amer) >60 (>=60) BUN/Creatinine Ratio 13.4 Glucose 110 H (74-106) mg/dL Calcium 9.1 (8.5-10.1) mg/dL Troponin I High Sens 10.7 (4.0-76.1) pg/mL NT-Pro-B Natriuret Pep 446.0 (<=900.0) pg/mL SARS-CoV-2 (PCR) Negative (NEGATIVE) Influenza Type A Ag Negative Influenza Type B Ag Negative Imaging Data Chest x-ray: Radiologist's impression: Procedure: XR chest 1V EXAMINATION: XR chest 1V HISTORY: SOB COMPARISON: XR chest 04/08/2023 FINDINGS: LUNGS: Hyperexpanded lungs. Mild opacity within lateral bases may represent infiltrates or overlying soft tissue artifact. VASCULATURE: No increased pulmonary vasculature. PLEURA: No pneumothorax, effusion, or pleural thickening. CARDIAC: Stable cardiomegaly. MEDIASTINUM: No visible mass or adenopathy. BONES: No fracture or visible bone lesion. OTHER: Negative. IMPRESSION: 1. Suspect mild bibasilar infiltrates. Evaluation is limited due to AP portable technique and patient body habitus. Electronically authenticated by: KESHAWN PECK Date: 06/16/2023 00:52 ECG Data Attestation: I personally reviewed and interpreted this ECG as follows: (atrial fibrillation with RVR) Critical Care Time Critical Care Time Critical Care Time: Yes Total Critical Care Time: 35 Attestation: Due to the high probability of sudden and clinically significant deterioration in the patient's condition he/she required the highest level of my preparedness to intervene urgently I provided critical care time including documentation time, medication orders and management, reevaluation, vital sign assessment, ordering and reviewing of lab tests, ordering and reviewing of x-ray studies, and admission orders. Aggregate critical care time is 35 minutes including only time during which I was engaged in work directly related to his/her care and did not include time spent treating other patients simultaneously. Discharge Plan Discharge Chief Complaint: Shortness of Breath/Dyspnea Clinical Impression: Atrial fibrillation with rapid ventricular response Prescriptions / Home Meds: No Action atorvastatin 40 mg tablet 40 mg PO Q24H losartan 50 mg tablet 50 mg PO Q24H diltiazem HCl 240 mg capsule,extended release 24hr 240 mg PO DAILY Qty: 30 0RF Eliquis 5 mg Tablet 5 mg PO BID 30 Days Qty: 60 0RF metoprolol tartrate 25 mg Tablet 25 mg PO BID 30 Days Qty: 60 0RF levofloxacin 750 mg tablet 750 mg PO DAILY 5 Days Qty: 5 0RF prednisone 10 mg tablet See Rx Instructions .ROUTE .COMPLEX Qty: 42 0RF Rx Instructions: 6 tabs daily x 2 days, then 5 tabs daily x 2 days, then 4 tabs daily x 2 days, then 3 tabs daily x 2 days, then 2 tabs daily x 2 days, then 1 tab daily x 2 days, then STOP levalbuterol tartrate 45 mcg/actuation HFA aerosol inhaler 2 inh inhalation Q4H PRN (Reason: shortness of breath or wheezing) Qty: 15 0RF hydrocodone-acetaminophen 5-325 mg tablet 1 tab PO Q6H PRN (Reason: pain) Qty: 12 0RF Rx Instructions: DX: L03.119 clindamycin HCl 150 mg capsule 300 mg PO Q6H 10 Days Qty: 80 0RF Referrals: Eusebia Terrell, COMMERCIAL BAKING TEACHER [Primary Care Provider] - 1 week
--- NOTE | 2023-06-16 00:17 | XR_ITS ---
The [address] [address] Patient Name: ELYSE LEAHY MRN: [id number] date: 1965 Sex: M Assigned Patient Location: ER Current Patient Location: ER Accession/Order Number: [id number] Exam Date: 06/16/2023 00:29 Report Date: 06/16/2023 00:52 At the request of: EVELYN MCGINNIS Procedure: XR chest 1V EXAMINATION: XR chest 1V HISTORY: SOB COMPARISON: XR chest 04/08/2023 FINDINGS: LUNGS: Hyperexpanded lungs. Mild opacity within lateral bases may represent infiltrates or overlying soft tissue artifact. VASCULATURE: No increased pulmonary vasculature. PLEURA: No pneumothorax, effusion, or pleural thickening. CARDIAC: Stable cardiomegaly. MEDIASTINUM: No visible mass or adenopathy. BONES: No fracture or visible bone lesion. OTHER: Negative. XR/XR chest 1V IMPRESSION: 1. Suspect mild bibasilar infiltrates. Evaluation is limited due to AP portable technique and patient body habitus. Electronically authenticated by: KESHAWN PECK Date: 06/16/2023 00:52
--- OUTSIDE RECORDS SUMMARY | 2023-06-16 00:18 | XMS_ITS | CCD ---
Author Name Unknown Address [address] [place] [address] Organization [facility] Care Team Providers Care Histological Illustrator Name Role Phone MADISON CHRISTIAN Unavailable Unavailable NO FAMILY DOCTOR, NO FAMILY DOCTOR Unavailable Unavailable Eusebia Terrell Unavailable Unavailable Unavailable Dr. Madison Christian Referring Unavaila denis Christian, Dr. Scott Attending Unavaila ble Aichholtonio, Mrs. Eusebia Rondon Primary Care Unavailab JUSTYN Lomeli Attending Leyla vailable Xander, Mrs. Eusebia Rondon Primary Care Unavailab JUSTYN Lomeli Referring Leyla vailable Brenton, NATALIA Arellano Referring Unavailable Brenton, NATALIA Arellano Attending Unavailable Xander, Mrs. Eusebia Rondon Primary Care Unavailab annie Christian, Dr. Scott Referring Unavaila denis Christian, Dr. Scott Attending Unavaila ble Aichholtonio, Mrs. Eusebia Rondon Primary Care Unavailab le AICHHOLZ, REHAB DIRECTOR EUSEBIA Primary Care Unavailable DR VIDHI RHOADES Consulting Unavailable DR VIDHI RHOADES Admitting Unavailable DR VIDHI RHOADES Attending Unavailable EUSEBIA VICTORIA Consulting Unavailable MARCO ANTONIO FRIEDMAN Consulting Unavailable AICHHOLZ, REHAB DIRECTOR EUSEBIA Primary Care Unavailable ANNAMARIE ., TED Admitting Unavailable ANNAMARIE .TED Attending Unavailable ANNAMARIE ., TED Consulting Unavailable ROBERTA PERRIN Consulting Unavailable AYDINROBERTA Attending Unavailable AYDIN, ROBERTA Admitting Unavailable AICHHOLZ, REHAB DIRECTOR EUSEBIA Primary Care Unavailable MARLENE ARAMBULA Consulting Unavailable AICHHOLZ, REHAB DIRECTOR EUSEBIA Primary Care Unavailable AYDIN, ROBERTA Admitting Unavailable AYDIN, ROBERTA Attending Unavailable AYDIN, ROBERTA Consulting Unavailable Nery Mckeon Consulting Unavailable AICHHOLZ, REHAB DIRECTOR EUSEBIA Primary Care Unavailable CAM ., DR CONNOLLY Admitting Unavailable CAM ., DR CONNOLLY Attending Unavailable RAFAEL, DR MARCO ANTONIO Stewart Consulting Unavailable CLARY RODARTE Consulting Unavailable AICHHOLZ, REHAB DIRECTOR EUSEBIA Primary Care Unavailable BRENTON, DR VIDHI Biswas Admitting Unavailable BRENTON, DR VIDHI Biswas Attending Unavailable BRENTON, DR VIDHI Biswas Consulting Unavailable DONG BUNDY Consulting Unavailable ANNAMARIE .TED Consulting Unavailable ANNAMARIE ., TED Attending Unavailable ANNAMARIE ., TED Admitting Unavailable AICHHOLZ, REHAB DIRECTOR EUSEBIA Primary Care Unavailable Dawit, Leo Consulting Unavailable ROMEO .DR FRANCO Consulting Unavailable ROMEO ., DR FRANCO Attending Unavailable AICHHOLZ, REHAB DIRECTOR EUSEBIA Primary Care Unavailable ROMEO .DR FRANCO Admitting Unavailable HAY ., DR CONNOLLY Consulting Unavailable AYDIN, ROBERTA Consulting Unavailable SANDEEP MARY Consulting Unavailable AICHHOLZ, REHAB DIRECTOR EUSEBIA Consulting Unavailable AICHHOLZ, REHAB DIRECTOR EUSEBIA Primary Care Unavailable AICHHOLZ, REHAB DIRECTOR EUSEBIA Attending Unavailable AICHHOLZ, REHAB DIRECTOR EUSEBIA Admitting Unavailable MISC, DR DAVIS Consulting Unavailable AICHHOLZ, REHAB DIRECTOR EUSEBIA Primary Care Unavailable MISC, DR DAVIS Attending Unavailable MISC, DR DAVIS Admitting Unavailable ZICATHLEEN, DR KESHAWN Biswas Consulting Unavailable AICHHOLZ, REHAB DIRECTOR EUSEBIA Primary Care Unavailable RICA YE Attending Unavailable RICA YE Admitting Unavailable CASSIRICA Consulting Unavailable AICHHOLZ, REHAB DIRECTOR EUSEBIA Consulting Unavailable AICHHOLZ, REHAB DIRECTOR EUSEBIA Primary Care Unavailable AICHHOLZ, REHAB DIRECTOR EUSEBIA Attending Unavailable AICHHOLZ, REHAB DIRECTOR EUSEBIA Admitting Unavailable AICHHOLZ, REHAB DIRECTOR EUSEBIA Admitting Unavailable AICHHOLZ, REHAB DIRECTOR EUSEBIA Attending Unavailable AICHHOLZ, REHAB DIRECTOR EUSEBIA Primary Care Unavailable AICHHOLZ, REHAB DIRECTOR EUSEBIA Consulting Unavailable SWAPNA GUZMÁN Attending Unavailable SWAPNA GUZMÁN Admitting Unavailable ROMEO .DR FRANCO Consulting Unavailable AICHHOLZ, REHAB DIRECTOR EUSEBIA Primary Care Unavailable BABITA .DR SCOTT Consulting Unavailable SWAPNA GUZMÁN Consulting Unavailable NIKOLAY .KARISHMA Consulting UnavailJuanjose Sue, DR CONNOLLY Consulting Unavailable KESHAWN ALVAREZ Consulting Unavailable Aichholz, Linette Eusebia Rondon Primary Care Unavailab annie SEBASTIANTEQUILA RINCON Attending Unavailable XanderMrs. Eusebia Primary Care Unavailab annie SEBASTIANTEQUILA RINCON Attending Unavailable Xander MCGUIRE Eusebia Nela Primary Care Provider JUSTYN MONDRAGON Attending Unavail able EUSEBIA TERRELL Primary Care Unavailable EUSEBIA TERRELL Attending Unavailable EUSEBIA TERRELL Attending Unavailable Unavailable Unavailable Unavailable Allergies Allergy Classification Reported Allergen(s) Allergy Type Date of Onset Reaction(s) Facility (4 sources) Lisinopril; Translations: [Lisinopril TABS] Drug Allergy 04-12-2023 [facility] (1 source) Lisinopril; Translations: [LISINOPRIL] Drug Allergy 04-12-2023 [facility] 3 Repository Medications Current Medications Medication Drug Class(es) Dates Sig (Normalized) Sig (Original) apixaban 5 mg oral tablet (1 source) Factor Xa Inhibitor take 1 tablet by mouth twice daily apixaban (Eliquis) 5 mg tablet Take 1 tablet (5 mg) by mouth 2 times a day. 0 Active aspirin 81 mg delayed release oral tablet (13 sources) Platelet Aggregation Inhibitor, Nonsteroidal Anti-inflammatory Drug take 1 tablet by mouth once daily aspirin 81 mg EC tablet Take 1 tablet (81 mg) by mouth once daily. 0 Active atorvastatin 40 mg oral tablet (15 sources) HMG-CoA Reductase Inhibitor Start: 08-18-2020 take 1 tablet by mouth once daily at bedtime atorvastatin (Lipitor) 40 mg tablet Take 1 tablet (40 mg) by mouth once daily at bedtime. 0 08/18/2020 Active Start: 04-24-2019 take 40 mg by mouth once daily in the morning Atorvastatin Active 40 MG Oral Every morning April 24, 2019 11:20am cholecalciferol 1.25 mg oral capsule (1 source) Vitamin D take 1 capsule by mouth once daily cholecalciferol (Vitamin D-3) 50,000 unit capsule Take 1 capsule (50,000 Units) by mouth once daily. 0 Active 24 hr dilTIAZem hydrochloride 180 mg extended release oral capsule (17 sources) Calcium Channel Jose Antonio Start: 03-27-20 End: 04-13-20 take 1 capsule by mouth once daily dilTIAZem XR (DILT-XR) 180 mg 24 hr capsule Take 1 capsule (180 mg) by mouth once daily. 0 03/27/2020 04/13/2023 Discontinued (Therapy completed) Start: 03-27-2020 take 1 capsule by [facility] every twenty-four hours Dilt-XR 180 MG Oral Capsule Extended Release 24 Hour Quantity: 90 Refills: 0 Ordered: 17-Dec-2020 DO Start : 27-Mar-2020 Complete Start: 04-24-2019 take 180 mg by mouth once daily in the morning Diltiazem Hcl Active 180 MG Oral Every morning April 24, 2019 11:20am take 1 capsule by mouth once raegan ly dilTIAZem CD (Cardizem CD) 240 mg 24 hr capsule Take 1 capsule (240 mg) by mouth once daily. 0 Active ivymibghykl-bqbwgxxyn-mxinlo er (Trelegy Ellipta) 200-62.5-25 mcg blister with device (1 source) End: 04-13-2023 dfvpzdlnjug-urvppwybl-wdqggl er (Trelegy Ellipta) 200-62.5-25 mcg blister with device Inhale once daily. 0 04/13/2023 Discontinued (Therapy completed) furosemide 20 mg oral tablet (1 source) Loop Diuret ic End: 04-13-2023 furosemide (Lasix) 20 mg tab let Take by mouth once daily. 0 04/13/2023 Discontinued (Discontinued by another clinician) hydroCHLOROthiazide 25 mg or al tablet (9 sources) Thiazi de Diuret ic Start: 08-18-2020 End: 04-13-2023 take 1 tablet by mouth once daily hydroCHLOROthiazide (HYDRODiuril) 25 mg tablet Take 1 tablet (25 mg) by mouth once daily. 0 08/18/2020 04/13/2023 Discontinued (Therapy completed) Start: 04-24-2019 take 25 mg by mouth once daily in the morning Hydrochlorothiazide Active 25 MG Oral Every morning April 24, 2019 11:20am 200 actuat levalbuterol 0.045 mg/actuat metered dose inhaler (1 source) beta2-Adrenergic Agonist levalbu terol (Xopenex) 45 mcg/actuation inhaler Inhale 1-2 puffs. 0 Active levoFLOXacin 750 mg oral tablet (1 source) Quinolone Antimicrobial levoFLOX acin (Levaquin) 750 mg tablet Take by mouth once daily. 0 Active lisinopril 5 mg oral tablet (12 sources) Angiotensin Converting Enzyme Inhibitor Start: 11-17-19 End: 04-13-20 take 1 tablet by mouth once daily lisinopril 5 mg tablet Take 1 tablet (5 mg) by mouth once daily. 0 11/16/2020 04/13/2023 Discontinued (Therapy completed) Start: 11-16-2020 take 1 tablet by tristan th once daily Lisinopril 20 MG Oral Tablet TAKE 1 TABLET DAILY. Quantity: 90 Refills: 3 Ordered: 19-Jul-2022 Justyn Mondragon MD Start : 16-Nov-2020 Active Increase to 20mg, patient will use up his 5mg tablets at home first. Please also d/c HCTZ from profile as well. Start: 04-24-2019 take 5 mg by mouth o nce daily in the morning Lisinopril Active 5 MG Oral Every morning April 24, 2019 11:20am meloxicam 15 mg oral tablet (2 sources) Nonsteroidal Anti-inflammatory Drug Start: 04-24-2019 take 15 mg by mouth once daily Meloxicam Active 15 MG Oral Daily April 24, 2019 11:20am metoprolol tartrate 25 mg oral tablet (1 source) beta-Adrenergic Jose Antonio take 1 tablet by mouth twice daily metoprolol tartrate (Lopressor) 25 mg tablet Take 1 tablet (25 mg) by mouth 2 times a day. 0 Active prednisoLONE 10 mg disintegrating oral tablet (1 source) Corticosteroid take 1 tablet by mouth once daily prednisoLONE ODT (OrapRED ODT) 10 mg disintegrating tablet Take 1 tablet (10 mg) by mouth once daily. 0 Active vitamin wgudajt-vztq-syvdx ( Plus, calcium carb,) 27 mg iron- 1 mg tablet (1 source) Start: 01-03-2021 End: 04-13-2023 take 1 tablet by mouth once daily vitamin irbuwlz-mqnw-vwniq ( Plus, calcium carb,) 27 mg iron- 1 mg tablet Take 1 tablet by mouth once daily. 0 01/03/2021 04/13/2023 Discontinued (Therapy completed) Completed/Discontinued Medications Medication Drug Class(es) Dates Sig (Normalized) Sig (Original) acetaminophen 325 mg / HYDROcodone bitartrate 5 mg oral tablet (1 source) Opioid Agonist Start: 02-25-2021 HYDROcodone-Aceta minophen 5-325 MG Oral Tablet Quantity: 20 Refills: 0 Ordered: 25-Feb-2021 DO Start : 25-Feb-2021 Complete [id number] 60 actuat albuterol 0.09 mg/actuat metered dose inhaler (1 source) beta2-Adrenergic Agonist Start: 12-06-2020 Albuterol Sulfate HFA 108 (90 Base) MCG/ACT Inhalation Aerosol Solution Quantity: 7 Refills: 0 Ordered: 06-Dec-2020 DO Start : 06-Dec-2020 Complete 30 actuat fluticasone furoate 0.1 mg/actuat / umeclidinium 0.0625 mg/actuat / vilanterol 0.025 mg/actuat dry powder inhaler (3 sources) Anticholinergic, Corticosteroid, beta2-Adrenergic Agonist Start: 03-28-2020 take 1 puff(s) by mouth once daily Trelegy Ellipta 100-62.5-25 MCG/INH Inhalation Aerosol Powder Breath Activated INL 1 PUFF PO D Quantity: 60 Refills: 0 Ordered: 19-May-2020 DO Start : 28-Mar-2020 Complete Start: 04-24-2019 Fluticasone-Um eclidin-Vilanter Active 1 INH Inhalation Daily April 24, 2019 11:20am losartan potassium 50 mg oral tablet (4 sources) Angiotensin 2 Receptor Jose Antonio Start: 09-15-2022 take 1 tablet by mouth once daily Losartan Potassium 50 MG Oral Tablet TAKE 1 TABLET DAILY. Quantity: 90 Refills: 3 Ordered: 18-Sep-2022 Justyn Mondragon MD Start : 15-Sep-2022 Active methylPREDNISolone 4 MG Oral Tablet Therapy Pack (1 source) Start: 08-14-2020 methylPREDNISolone 4 MG Oral Tablet Therapy Pack Quantity: 21 Refills: 0 Ordered: 14-Aug-2020 DO Start : 14-Aug-2020 Complete PNV Plus Multivitamin 27-1 MG TABS (12 sources) Start: 01-03-2021 take 1 tablet by mouth once daily PNV Plus Multivitamin 27-1 MG TABS TAKE 1 TABLET BY MOUTH EVERY DAY Quantity: 90 Refills: 0 Ordered: 07-Apr-2021 DO Start : 03-Jan-2021 Active potassium chloride 10 meq extended release oral tablet (6 sources) Start: 07-19-2022 take 1 tablet by mouth once daily at mealtime Klor-Con 10 10 MEQ Oral Tablet Extended Release TAKE 1 TABLET DAILY WITH FOOD. Quantity: 14 Refills: 0 Ordered: 19-Jul-2022 Justyn Mondragon MD Start : 19-Jul-2022 Active New to start for only 2 weeks please. thank you Trelegy Ellipta 200-62.5-25 MCG/ACT Inhalation Aerosol Powder Breath Activated (6 sources) Trelegy Ellipta 200-62.5-25 MCG/ACT Inhalation Aerosol Powder Breath Activated Once daily Quantity: 0 Refills: 0 Ordered: 19-Jul-2022 DO Active Vitamin D3 CAPS (8 sources) Vitamin D3 CAPS TAKE 1 CAPSULE Daily Quantity: 0 Refills: 0 Ordered: 12-Jan-2022 DO Active Problems Active Problems Problem Classification Problem Date Documented Date Episodic/Chronic Cardiac dysrhythmias (19 sources) Paroxysmal atrial fibrillation; Translations: [Atrial fibrillation] Onset: 06-13-2022 04-13-2023 Chronic Cardiac dysrhythmias (1 source) Cardiac dysrhythmias Onset: 08-23-2017 Chronic obstructive pulmonary disease and bronchiectasis (5 sources) Chronic obstructive pulmonary disease with (acute) exacerbation; Translations: [Chronic obstructive pulmonary disease, unspecified] Onset: 05-30-2022 Chronic Coronary atherosclerosis and other heart disease (20 sources) Disorder of coronary artery; Translations: [Coronary atherosclerosis of unspecified type of vessel, chinik or graft] Onset: 08-29-2022 Resolved: 04-13-2023 04-13-2023 Chronic Coronary atherosclerosis and other heart disease (5 sources) Presence of coronary angioplasty implant and graft; Translations: [Coronary angioplasty status] Onset: 08-29-2022 Episodic Diabetes mellitus without complication (1 source) Type 2 diabetes mellitus without complications; Translations: [TYPE 2 DM WITHOUT COMPLICATIONS] Onset: 12-14-2021 Chronic Disorders of lipid metabolism (20 sources) Hyperlipidemia; Translations: [Other and unspecified hyperlipidemia] Onset: 01-11-2022 Chronic Essential hypertension (17 sources) Hypertensive disorder; Translations: [Unspecified essential hypertension] Onset: 08-29-2022 04-13-2023 Chronic Essential hypertension (1 source) Essential hypertension Onset: 08-23-2017 Immunizations and screening for infectious disease (1 source) Encounter for screening for other infectious and parasitic diseases; Translations: [ENC SCREENING OTH INF PARASITIC DZ] Onset: 10-28-2022 Episodic Other aftercare (1 source) jail (current) use of aspirin; Translations: [WREATH INSPECTOR CURRENT USE OF ASPIRIN] Onset: 08-29-2022 Episodic Other aftercare (1 source) Other shelter (current) drug therapy; Translations: [OTH WREATH INSPECTOR CURRENT DRUG THERAPY] Onset: 08-29-2022 Episodic Other liver diseases (1 source) Fatty (change of) liver, not elsewhere classified; Translations: [FATTY CHANGE LIVER NEC] Onset: 06-13-2022 Chronic Other lower respiratory disease (5 sources) Shortness of breath; Translations: [SHORTNESS OF BREATH] Onset: 05-30-2022 Episodic Other nutritional; endocrine; and metabolic disorders (14 sources) Body mass index 40+ - severely obese; Translations: [Morbid obesity] Onset: 04-12-2023 04-13-2023 Chronic Other nutritional; endocrine; and metabolic disorders (3 sources) Morbid (severe) obesity due to excess calories; Translations: [MORBID SEVERE OBES D/T EXCESS SAMUEL] Onset: 08-29-2022 Chronic Other nutritional; endocrine; and metabolic disorders (3 sources) Body mass index (BMI) 50.0-59.9, adult; Translations: [BODY MASS INDEX BMI 50.0-59.9 ADULT] Onset: 08-29-2022 Chronic Other nutritional; endocrine; and metabolic disorders (1 source) Body mass index (BMI) 45.0-49.9, adult; Translations: [BODY MASS INDEX BMI 45.0-49.9 ADULT] Onset: 06-13-2022 Chronic Pneumonia (except that caused by tuberculosis or sexually transmitted disease) (1 source) Bronchopneumonia, unspecified organism; Translations: [BRONCHOPNEUMONIA UNS ORGANISM] Onset: 08-29-2022 Episodic Residual codes; unclassified (13 sources) Sleep apnea; Translations: [Unspecified sleep apnea] Onset: 04-12-2023 04-12-2023 Chronic Residual codes; unclassified (1 source) Sleep apnea, unspecified; Translations: [SLEEP APNEA UNSPECIFIED] Onset: 08-29-2022 Chronic Residual codes; unclassified (1 source) Obstructive sleep apnea syndrome; Translations: [Obstructive sleep apnea (adult) (pediatric)] 04-13-2023 Chronic Residual codes; unclassified (2 sources) Obstructive sleep apnea (adult) (pediatric); Translations: [Obstructive sleep apnea (adult) (pediatric)] Onset: 04-12-2023 Chronic Residual codes; unclassified (13 sources) Noncompliance with treatment; Translations: [Personal history of noncompliance with medical treatment, presenting hazards to health] Onset: 04-12-2023 04-12-2023 Episodic Residual codes; unclassified (1 source) Acquired absence of other specified parts of digestive tract; Translations: [ACQ ABSENCE OTH PART DIGESTV TRACT] Onset: 08-29-2022 Episodic Residual codes; unclassified (2 sources) History of surgical procedure on vein; Translations: [Other specified postprocedural states] Onset: 04-13-2023 04-13-2023 Episodic Residual codes; unclassified (2 sources) Other specified postprocedural states; Translations: [Other specified postprocedural states] Onset: 04-13-2023 Episodic Screening and history of mental health and substance abuse codes (13 sources) Ex-smoker; Translations: [Personal history of tobacco use] Onset: 06-13-2022 04-13-2023 Episodic Comment on above: Quit 07/26/2012; Sprains and strains (6 sources) Strain of left Achilles tendon, initial encounter; Translations: [Strain of muscle, fascia and tendon at neck level, initial encounter] Onset: 12-14-2021 Episodic Thyroid disorders (1 source) Hypothyroidism, unspecified; Translations: [HYPOTHYROIDISM UNSPECIFIED] Onset: 08-29-2022 Chronic Unclassified (1 source) Pure hypercholesterolemia, unspecified / E78.00(ICD-9) Onset: 08-23-2017 Unclassified (1 source) Athscl heart disease of chinik coronary artery w/o ang pctrs / I25.10(ICD-9) Onset: 08-23-2017 Unclassified (1 source) Old myocardial infarction / I25.2(ICD-9) Onset: 08-23-2017 Unclassified (2 sources) Encounter for pre-employment examination / Z02.1(ICD-9) Onset: 08-23-2017 Unclassified (1 source) Cardiac arrhythmia, unspecified / I49.9(ICD-9) Onset: 08-23-2017 Unclassified (1 source) Coronary angioplasty status / Z98.61(ICD-9) Onset: 08-23-2017 Unclassified (1 source) Personal history of nicotine dependence / Z87.891(ICD-9) Onset: 08-23-2017 Unclassified (4 sources) CONTACT W/AND (SUSP) EXPOS COVID-19; Translations: [CONTACT W/AND (SUSP) EXPOS COVID-19] Onset: 08-29-2022 Unclassified (3 sources) COUGH, UNSPECIFIED; Translations: [COUGH, UNSPECIFIED] Onset: 05-30-2022 Unclassified (2 sources) LOW BACK PAIN, UNSPECIFIED; Translations: [LOW BACK PAIN, UNSPECIFIED] Onset: 12-14-2021 Viral infection (1 source) COVID-19; Translations: [COVID-19] Onset: 02-06-2022 Past or Other Problems Problem Classification Problem Date Documented Da te Episodic/Chronic Abdominal pain (1 source) Unspecified abdominal pain; Translations: [UNSPECIFIED ABDOMINAL PAIN] Onset: 05-30-2022 Episodic Diabetes mellitus without complication (1 source) Prediabetes; Translations: [PREDIABETES] Onset: 06-13-2022 Episodic E Codes: Fall (1 source) Fall on same level from slipping, tripping and stumbling with subsequent striking against other object, initial encounter; Translations: [FALL SAME LVL SLIP STRK OTH OBJ INT] Onset: 11-08-2021 Episodic E Codes: Natural/environment (2 sources) Other and unspecified overexertion or strenuous movements or postures, initial encounter; Translations: [Overexertion from strenuous movement or load, initial encounter] Onset: 12-14-2021 Episodic Fluid and electrolyte disorders (1 source) Hypokalemia; Translations: [HYPOKALEMIA] Onset: 05-29-2022 Episodic Nonspecific chest pain (5 sources) Chest pain, unspecified; Translations: [CHEST PAIN UNSPECIFIED] Onset: 05-20-2022 Episodic Other connective tissue disease (3 sources) Pain in right lower leg; Translations: [PAIN IN RIGHT LOWER LEG] Onset: 01-08-2022 Episodic Other liver diseases (1 source) Abnormal levels of other serum enzymes; Translations: [ABNORMAL LEVELS OTHER SERUM ENZYMES] Onset: 05-29-2022 Episodic Other lower respiratory disease (1 source) Other nonspecific abnormal finding of lung field; Translations: [OTH NONSPECIFIC ABN FIND LNG FIELD] Onset: 06-13-2022 Episodic Other lower respiratory disease (3 sources) Pleurodynia; Translations: [PLEURODYNIA] Onset: 11-06-2021 Episodic Other lower respiratory disease (1 source) Solitary pulmonary nodule; Translations: [SOLITARY PULMONARY NODULE] Onset: 11-08-2021 Episodic Other screening for suspected conditions (not mental disorders or infectious disease) (1 source) Encounter for screening for malignant neoplasm of prostate; Translations: [ENC SCREEN MALIG NEOPLASM PROSTATE] Onset: 01-17-2022 Episodic Other upper respiratory infections (1 source) Acute upper respiratory infection, unspecified; Translations: [ACUTE UP RESPIRATORY INFECTION UNS] Onset: 05-30-2022 Episodic Phlebitis; thrombophlebitis and thromboembolism (1 source) Acute embolism and thrombosis of unspecified deep veins of lower extremity, bilateral; Translations: [AC EMBO THROMB UNS DP VN LW EXT MARVIN] Onset: 01-09-2022 Episodic Residual codes; unclassified (1 source) Localized edema; Translations: [LOCALIZED EDEMA] Onset: 01-09-2022 Episodic Respiratory failure; insufficiency; arrest (adult) (1 source) Acute respiratory failure with hypoxia; Translations: [ACUTE RESPIRATORY FAIL W/HYPOXIA] Onset: 06-13-2022 Episodic Spondylosis; intervertebral disc disorders; other back problems (4 sources) Cervicalgia; Translations: [Lumbago with sciatica, right side] Onset: 12-14-2021 Episodic Superficial injury; contusion (1 source) Contusion of right front wall of thorax, initial encounter; Translations: [CONTUS RT FRONT WALL THORAX INITIAL] Onset: 11-08-2021 Episodic Unclassified (1 source) Encounter for pre-employment examination; Translations: [Encounter for pre-employment examination] Onset: 08-23-2017 Unclassified (1 source) CONTACT W/AND (SUSP) EXPOS COVID-19; Translations: [CONTACT W/AND (SUSP) EXPOS COVID-19] Onset: 10-26-2022 Unclassified (1 source) COUGH, UNSPECIFIED; Translations: [COUGH, UNSPECIFIED] Onset: 08-27-2022 Unclassified (1 source) LOW BACK PAIN, UNSPECIFIED; Translations: [LOW BACK PAIN, UNSPECIFIED] Onset: 12-10-2021 Results Test Name Value Interpretation Reference Range Facility Covid-19 PCR (CVDTBH)on 10-16 SARS-CoV-2 (COVID-19) RNA PILI+probe Ql (Unsp spec) Not detected Normal NOT DETECTED [facility] Comment on above: Performed By: #### C VDTB #### [facility] [address] [place] [address] Dr. Jersey Butcher INFLUENZA A AND B AGon 10-26 INFLUANEGH SEE BELOW Normal [facility] Comment on above: Result Comment: Nega tive for Flu A protein angiten. Infection due to Flu A cannot be ruled out. Flu A angiten in the sample may be below the detection limit of the test. Performed By: #### T SH, BNP, HSTROPN, CMP #### [facility] [address] [place] [address] Dr. Jersey Butcher INFLUBNEGH SEE BELOW Normal [facility] Comment on above: Result Comment: Nega tive for Flu B protein antigen. Infection due to Flu B cannot be ruled out. Flu B antigen in the sample may be below the detection limit of the test. Performed By: #### T SH, BNP, HSTROPN, CMP #### [facility] [address] [place] [address] Dr. Jersey Butcher INFLUENZA A AG Negative Normal NEGATIVE SEE COMMENT [facility] Comment on above: Performed By: #### T SH, BNP, HSTROPN, CMP #### [facility] [address] [place] [address] Dr. Jersey Butcher INFLUENZA B AG Negative Normal NEGATIVE SEE COMMENT [facility] Comment on above: Performed By: #### T SH, BNP, HSTROPN, CMP #### [facility] [address] [place] [address] Dr. Jersey Butcher SYMPTOMATIC COVID-19 ANTIGEN on 10-26-2022 EUA Statement SEE BELOW Normal [facility] Comment on above: Result Comment: This test has not been FDA cleared or approved, but has been authorized by the FDA under an Emergency Use Authorization (EUA) for use by authorized laboratories certified under CLIA that meet the requirements to perform moderate or high complexity testing. This test has been authorized only for the detection of proteins from SARS-CoV-2, not for any other viruses or pathogens. The emergency use of this test is authorized for the duration of the declaration that circumstances exist justifying the authorization of emergency use of in vitro diagnostic tests for detection and/or diagnosis of Covid-19 under section 564(b)(1) of the Act, 21 U.S.C. 360bbb-3(b)(1), unless the declaration is terminated or authorization is revoked sooner. Performed By: #### C VDTB #### [facility] [address] [place] [address] Dr. Jersey Butcher SARS-CoV-2 (COVID-19) RNA PILI+probe Ql (Unsp spec) Negative Normal NEGATIVE The [facility] Comment on above: Performed By: #### C VDTBH #### [facility] [address] [place] [address] Dr. Jersey Butcher [facility] CARDIAC STRESS/REST INJE CTIONon 10-02-2022 [facility] CARDIAC STRESS/REST INJECTION Patient Name: ELYSE LEAHY STUDY: MYOCARDIAL PERFUSION STRESS TEST WITH LEXISCAN Performing facility: [facility], [address] [place] [address], [address], [address] Provider: Tequila Jaffe MD, FACC PCP: Dr. Tristen Terrell Supervising provider: Mary Julien MD, FACC INDICATION: DOT physical I25.10: CAD S/P percutaneous coronary angioplasty Z98.61 HISTORY: Gender: M; Age: 57 y/o ; Height: 0 cm; Weight: 154.997967 kg. CAD; High Cholesterol; HTN; Previous MO; Arrhythmias; AFib Quit smoking 10 years ago. Cardiac catheterization 2012. PTCA on RCA. COMPARISON: No comparison. ACCESSION NUMBER(S): [id number]; [id number] ORDERING CLINICIAN: TEQUILA JAFFE TECHNIQUE: TWO DAY protocol. Stress injection: Date:10/02/22, 35.7 mCi of Myoview IV 20 seconds after rapid injection of Lexiscan. Rest injection: Date: 10/03/22, 34.1 mCi of Myoview IV at rest. The patient had a rapid injection of 0.4 mg of Lexiscan IV over 10 seconds. Imaging was performed by gated tomographic technique. Reason for Lexiscan: Difficulty on treadmill STRESS TEST DATA: Resting heart rate was 70 BPM. Resting blood pressure was 126/84 mmHg. Peak blood pressure was 128/82 mmHg. Peak heart rate was 89 BPM. TEST TERMINATED DUE TO: Protocol completed FINDINGS: STRESS TEST RESULTS: Resting electrocardiogram revealed normal sinus rhythm. There were no significant ischemic ECG changes or dysrhythmias. The patient did not have chest pains/symptoms during procedure. There was a normal recovery phase. IMAGING RESULTS: Image quality was good. Rest and stress tomographic images were reviewed and revealed normal perfusion without evidence of ischemia, myocardial infarction, or left ventricular dilatation with stress. Overall left ventricular systolic function appeared to be normal without regional wall motion abnormalities. Ejection fraction was 52%. TID is 0. 968 and is normal. There were evidence of diaphragmatic attenuation artifact. IMPRESSION: Normal Lexiscan Myoview cardiac perfusion stress test. No evidence of ischemia or myocardial infarction by perfusion imaging. Normal left ventricular systolic function, ejection fraction 52%. No previous study available for comparison. Electronically signed by: MADISON CHRISTIAN MD Normal [facility] No Panel Informationon 10-02 Normal [facility] 305 DO Work Phone: HEMOGLOBINon 09-15-2022 Hemoglobin (Bld) [Mass/Vol] 14.3 g/dL Normal 14.0-18.0 [facility] Comment on above: Performed By: #### T SH, BNP, HSTROPN, CMP #### [facility] [address] [address] [address] Jersey Butcher Covid-19 PCR (CVDTB)on 08-16 SARS-CoV-2 (COVID-19) RNA PILI+probe Ql (Unsp spec) Not detected Normal NOT DETECTED The [facility] Comment on above: Result Comment: When diagnostic testing is negative, the possibility of a false negative should be considered in the context of a patient's recent exposures and the presence of clinical signs and symptoms consistent with SARS-CoV-2. This test is not yet approved or cleared by the [place] FDA. When there are no FDA-approved or cleared tests available, and other criteria are met, FDA can make tests available under an emergency access mechanism called an Emergency Use Authorization (EUA). The EUA for this test is supported by the [place] of Health and Human Service's declaration that circumstances exist to justify the emergency use of in vitro diagnostics for the detection and/or diagnosis of the virus that causes COVID-19. This EUA will remain in effect for the duration of the COVID-19 declaration justifying emergency of IVDs, unless it is terminated or revoked by the FDA (after which the test may no longer be used). Performed By: #### T SH, BNP, HSTROPN, CMP #### [facility] [address] [place] [address] Dr. Jersey Butcher GROUP A STREP CULTUREon 08-16 S. pyogenes Ag Ql (Unsp spec) Culture Observations: NEGATIVE FOR GROUP A STREPTOCOCCUS. Normal The [facility] Comment on above: Performed By: #### T SH, BNP, HSTROPN, CMP #### [facility] [address] [address] [address] Jersey Butcher STREPT SCREENon 08-27-2022 STREP SCREEN A Negative Normal NEGATIVE [facility] Comment on above: Performed By: #### T SH, BNP, HSTROPN, CMP #### [facility] [address] [place] [address] Dr. Jersey Butcher XR CHEST 1 Von 08-27-2022 XR CHEST 1 V EXAM: XR CHEST 1 V HISTORY: SHORTNESS OF BREATH COMPARISON: 05/25/2022 TECHNIQUE: Frontal view of the chest. FINDINGS: No focal consolidations or pleural effusions. Cardiomegaly. Visualized osseous structures are unremarkable. IMPRESSION: No acute disease. Electronically authenticated by: LEO MARSHALL Date: 2022-08-27 14:06 Normal [facility] Office Visit (Cardiology)on 07-19-2022 Follow-up visit Diagnoses/Problems Assessed CAD S/P percutaneous coronary angioplasty (414.01,V45.82) (I25.10,Z98.61) Hypertension (401.9) (I10) Hyperlipidemia (272.4) (E78.5) Paroxysmal atrial fibrillation (427.31) (I48.0) Sleep apnea (780.57) (G47.30) Morbid obesity with BMI of 50.0-59.9, adult (278.01,V85.43) (E66.01,Z68.43) Former smoker (V15.82) (Z87.891) Quit 07/26/2012 Orders CAD S/P percutaneous coronary angioplasty, Paroxysmal atrial fibrillation, Sleep apnea Cardiac Stress Test; Status:Hold For - Scheduling,Retrospectiv e Authorization; Requested for:19Jul2022; Hypertension Start: Klor-Con 10 10 MEQ Oral Tablet Extended Release; TAKE 1 TABLET DAILY WITH FOOD Renal Function Panel; Status:Active - Retrospective Authorization; Requested for:02Aug2022; Renew: Lisinopril 20 MG Oral Tablet; TAKE 1 TABLET DAILY Hypertension, Paroxysmal atrial fibrillation Renew: Dilt-XR 180 MG Oral Capsule Extended Release 24 Hour (dilTIAZem HCl ER); TAKE 1 CAPSULE BY MOUTH EVERY DAY Morbid obesity with BMI of 50.0-59.9, adult Healthy Weight Tips; Status:Complete - Retrospective Authorization; Done: 19Jul2022 Losing just 5 to 10 pounds may lower your risk of health problems.; Status:Complete - Retrospective Authorization; Done: 19Jul2022 SocHx: Former smoker Tobacco Use Screening; Status:Complete; Done: 19Jul2022 Unlinked Stop: hydroCHLOROthiazide 25 MG Oral Tablet Patient Instructions Patient to follow up in [address] Justyn Mondragon MD. [facility] Patient to STOP Hydrochlorothiazide moving forward. Patient to INCREASE Lisinopril to 20mg. You can take 4 of the 20mg tablets at home to use them up first. The new script at pharmacy will be for the higher dose, so you will only need to take 1 tablet. Patient to START Potassium supplement 10meq once daily for TWO WEEKS only Patient to repeat lab work in 4 weeks. Order forms given. Office will call with results. Patient to complete Graded Exercise Stress Testing- for DOT physical. Office will call with results. No other changes today. Continue same medications and treatments. Patient educated on proper medication use. Patient educated on risk factor modification. Please bring any lab results from other providers / physicians to your next appointment. Please bring all medicines, vitamins, and herbal supplements with you when you come to the office. Prescriptions will not be filled unless you are compliant with your follow up appointments or have a follow up appointment scheduled as per instruction of your physician. Refills should be requested at the time of your visit. IEnrike RN am scribing for and in the presence of, Dr. Justyn Mondragon MD The provider reviewed the following test(s) and result(s) with the patient: ECG, laboratory tests and treadmill exercise tolerance test Chief Complaint Patient here for overdue general cardiology follow up. Former patient of Dr. Christian. History of Present Illness The patient is being seen today because of upcoming DOT physical. 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 He states he has been doing well from a cardiac standpoint. He denies chest discomfort or symptoms of myocardial ischemia. He has not used nitroglycerin. He denies any significant dyspnea on exertion. He denies palpitations, presyncope, and syncope. He denies any problem with his current medications. I did go over results of his lab work done in May and his sodium and potassium are low. I told him I believe this is due to hydrochlorothiazide. I am getting give him a short term potassium chloride replacement to bring up his potassium. I am going to discontinue his hydrochlorothiazide and increase his dose of lisinopril. I will place him on 20 mg of lisinopril a day. He will check his blood pressure regularly 2 or 3 times a week and call me if is not under control. I told him we will get a GXT for his DOT physical and call him with results. I did go results of his lipid profile with him from December 2021. Cholesterol 133, triglycerides 135, HDL 54, LDL 52. 1 IMPRESSION 1. Cardiac status, stable. 2. Coronary artery disease. 3. Non-Q-wave myocardial infarction, July 2012. 4. Percutaneous coronary intervention with bare-metal stent implantation of mid right coronary artery, July 2012. 5. Morbid obesity. 6. Hyperlipidemia. 7. Obstructive Sleep Apnea, CPAP compliant 8. Hypertension 9. Remote history of atrial fibrillation, no clinical recurrences Please excuse any errors in grammar or translation related to this dictation. Voice recognition software was utilized to prepare this document. 1 Amended By: Justyn Mondragon; Jul 19 2022 11:32 AM ESTActive Problems Problems Former smoker (V15.82) (Z87.891) Quit 07/26/2012 Hyperlipidemia (272.4) (E78.5) Hypertension (401.9) (I10) Morbid obesity with BMI of 50.0-59.9, adult (278.01,V85.43) (E66.01,Z68.43) Normal echocardiogram (V72.85 (more content not included)... Normal [facility] Tobacco Screening.on 023 Adult depression screening assessment No [facility] [employer] DO Work Phone: Fall risk assessment a) No falls within the last year [facility] [place] [address] DO Work Phone: Tobacco use status [facility]PH[facility] b) No [facility] [employer] [address] DO Work Phone: CBC W MANUAL DIFFon 06-04-20 22 ATYPICAL LYMPH # 0.14 103/ul Normal [facility] Comment on above: Performed By: #### T SH, BNP, HSTROPN, CMP #### [facility] [address] [address] [address] Jersey Butcher ATYPICAL LYMPH % 1 % Normal [facility] Comment on above: Performed By: #### T SH, BNP, HSTROPN, CMP #### [facility] [address] [address] [address] Jersey Butcher BAND # 0.0 103/ul Normal 0.0-0.3 [facility] Comment on above: Performed By: #### T SH, BNP, HSTROPN, CMP #### [facility] [address] [address] [address] Jersey Butcher BAND % 0 % Normal 0-5 [facility] Comment on above: Performed By: #### T SH, BNP, HSTROPN, CMP #### [facility] [address] [address] [address] Jersey Butcher BASOM # 0.00 103/ul Normal 0.00-0.[address] [facility] Comment on above: Performed By: #### T SH, BNP, HSTROPN, CMP #### [facility] [address] [address] [address] Jersey Butcher BASOM % 0.0 % Critically low 0.2-2.0 [facility] Comment on above: Performed By: #### T SH, BNP, HSTROPN, CMP #### [facility] [address] [address] [address] Jersey Butcher BLAST # Normal [facility] Comment on above: Performed By: #### T SH, BNP, HSTROPN, CMP #### [facility] [address] [address] [address] Jersey Butcher BLAST % Normal [facility] Comment on above: Performed By: #### T SH, BNP, HSTROPN, CMP #### [facility] [address] [address] [address] Jersey Butcher CORRECTED WBC Normal 4.0-11.0 [facility] Comment on above: Performed By: #### T SH, BNP, HSTROPN, CMP #### [facility] [address] [address] [address] Jersey Butcher EOS # 0.00 103/ul Normal 0.00-0.[address] [facility] Comment on above: Performed By: #### T SH, BNP, HSTROPN, CMP #### [facility] [address] [address] [address] Jersey Butcher EOS% 0.0 % Critically low 0.9-7.0 [facility] Comment on above: Performed By: #### T SH, BNP, HSTROPN, CMP #### [facility] [address] [address] [address] Jersey Butcher HCT 41.3 % Critically low 42.0-54.0 [facility] Comment on above: Performed By: #### T SH, BNP, HSTROPN, CMP #### [facility] [address] [address] [address] Jersey Butcher HGB 14.2 g/dl Normal 14.0-18.[address] [facility] Comment on above: Performed By: #### T SH, BNP, HSTROPN, CMP #### [facility] [address] [place] [address] Dr. Jersey Butcher LYMPHM # 0.42 103/ul Critically low 1.20-3.80 [facility] Comment on above: Performed By: #### T SH, BNP, HSTROPN, CMP #### [facility] [address] [place] [address] Dr. Jersey Butcher LYMPHM% 3.0 % Critically low 20.5-60.0 [facility] Comment on above: Performed By: #### T SH, BNP, HSTROPN, CMP #### [facility] [address] [place] [address] Dr. Jersey Butcher MCH 30.9 pg Normal 25.9-34.[address] [facility] Comment on above: Performed By: #### T SH, BNP, HSTROPN, CMP #### [facility] [address] [place] [address] Dr. Jersey Buthcer MCHC 34.4 g/dl Normal 29.9-35.2 [facility] Comment on above: Performed By: #### T SH, BNP, HSTROPN, CMP #### [facility] [address] [place] [address] Dr. Jersey Butcher MCV 89.8 fL Normal 80.0-94.[address] [facility] Comment on above: Performed By: #### T SH, BNP, HSTROPN, CMP #### [facility] [address] [place] [address] Dr. Jersey Butcher METAMYELOCYTE # Normal [facility] Comment on above: Performed By: #### T SH, BNP, HSTROPN, CMP #### [facility] [address] [place] [address] Dr. Jersey Butcher METAMYELOCYTE % Normal [facility] Comment on above: Performed By: #### T SH, BNP, HSTROPN, CMP #### [facility] [address] [address] [address] Jersey Butcher MONOM# 0.14 103/ul Critically low 0.30-0.80 [facility] Comment on above: Performed By: #### T SH, BNP, HSTROPN, CMP #### [facility] [address] [place] [address] Dr. Jersey Butcher MONOM% 1.0 % Critically low 1.7-12.0 [facility] Comment on above: Performed By: #### T SH, BNP, HSTROPN, CMP #### [facility] [address] [address] [address] Jersey Butcher MPV 10.4 fL Normal 9.5-13.[address] [facility] Comment on above: Performed By: #### T SH, BNP, HSTROPN, CMP #### [facility] [address] [place] [address] Dr. Jersey Butcher MYELOCYTE # Normal [facility] Comment on above: Performed By: #### T SH, BNP, HSTROPN, CMP #### [facility] [address] [place] [address] Dr. Jersey Butcher MYELOCYTE % Normal [facility] Comment on above: Performed By: #### T SH, BNP, HSTROPN, CMP #### [facility] [address] [place] [address] Dr. Jersey Butcher NRBC Normal [facility] Comment on above: Performed By: #### T SH, BNP, HSTROPN, CMP #### [facility] [address] [place] [address] Dr. Jersey Butcher PLT 209 103/ul Normal 150-450 [facility] Comment on above: Performed By: #### T SH, BNP, HSTROPN, CMP #### [facility] [address] [place] [address] Dr. Jersey Butcher RBC 4.60 106/ul Critically low 4.70-6.10 [facility] Comment on above: Performed By: #### T SH, BNP, HSTROPN, CMP #### [facility] [address] [address] [address] Jersey Butcher RDW 11.9 % Normal 11.0-15.[address] [facility] Comment on above: Performed By: #### T SH, BNP, HSTROPN, CMP #### [facility] [address] [address] [address] Jersey Butcher SEG # 13.30 103/ul Critically high 1.40-6.50 The [facility] Comment on above: Performed By: #### T SH, BNP, HSTROPN, CMP #### [facility] [address] [address] [address] Jersey Butcher SEG % 95.0 % Critically high 43.0-75.0 [facility] Comment on above: Performed By: #### T SH, BNP, HSTROPN, CMP #### [facility] [address] [place] [address] Dr. Jersey Butcher WBC 14.0 103/ul Critically high 4.0-11.0 [facility] Comment on above: Performed By: #### T SH, BNP, HSTROPN, CMP #### [facility] [address] [address] [address] Jersey Butcher PROF 14(COMP METB)on 022 Albumin [Mass/Vol] 3.0 g/dL Critically low 3.4-5.0 Th [facility] Comment on above: Performed By: #### T SH, BNP, HSTROPN, CMP #### [facility] [address] [address] [address] Jersey Butcher Albumin/Globulin [Mass ratio] 0.8 {ratio} Normal [facility] Comment on above: Performed By: #### T SH, BNP, HSTROPN, CMP #### [facility] [address] [place] [address] Dr. Jersey Butcher ALP [Catalytic activity/Vol] 91 U/L Normal 46-[address] [facility] Comment on above: Performed By: #### T SH, BNP, HSTROPN, CMP #### [facility] [address] [place] [address] Dr. Jersey Butcher ALT [Catalytic activity/Vol] 43 U/L Normal 16-[address] [facility] Comment on above: Performed By: #### T SH, BNP, HSTROPN, CMP #### [facility] [address] [place] [address] Dr. Jersey Butcher Anion gap [Moles/Vol] 8.1 mmol/L Normal [facility] Comment on above: Performed By: #### T SH, BNP, HSTROPN, CMP #### [facility] [address] [place] [address] Dr. Jersey Butcher AST [Catalytic activity/Vol] 18 U/L Normal 15-[address] [facility] Comment on above: Performed By: #### T SH, BNP, HSTROPN, CMP #### [facility] [address] [place] [address] Dr. Jersey Butcher Bilirubin [Mass/Vol] 0.4 mg/dL Normal 0.2-1.[address] [facility] Comment on above: Performed By: #### T SH, BNP, HSTROPN, CMP #### [facility] [address] [place] [address] Dr. Jersey Butcher Calcium [Mass/Vol] 8.4 mg/dL Critically low 8.5-10.1 Th [facility] Comment on above: Performed By: #### T SH, BNP, HSTROPN, CMP #### [facility] [address] [place] [address] Dr. Jersey Butcher Chloride [Moles/Vol] 94 mmol/L Critically low 98-[address] [facility] Comment on above: Performed By: #### T SH, BNP, HSTROPN, CMP #### [facility] [address] [address] [address] Jersey Butcher CO2 [Moles/Vol] 33.0 mmol/L Critically high 21.0-32.[address] [facility] Comment on above: Performed By: #### T SH, BNP, HSTROPN, CMP #### [facility] [address] [place] [address] Dr. Jersey Butcher Creatinine [Mass/Vol] 1.15 mg/dL Normal 0.70-1.[address] [facility] Comment on above: Performed By: #### T SH, BNP, HSTROPN, CMP #### [facility] [address] [address] [address] Jersey Butcher EGFR-AF SWISS >60 Normal >=60 [facility] Comment on above: Performed By: #### T SH, BNP, HSTROPN, CMP #### [facility] [address] [address] [address] Jersey Butcher EGFR-NON AF SWISS >60 Normal >=[address] [facility] Comment on above: Performed By: #### T SH, BNP, HSTROPN, CMP #### [facility] [facility] [address] [place] [address] Dr. Jersey Butcher Globulin (S) [Mass/Vol] 3.6 g/dL Normal [facility] Comment on above: Performed By: #### T SH, BNP, HSTROPN, CMP #### [facility] [address] [place] [address] Dr. Jersey Butcher Glucose [Mass/Vol] 193 mg/dL Critically high 74-106 [facility] Comment on above: Performed By: #### T SH, BNP, HSTROPN, CMP #### [facility] [address] [place] [address] Dr. Jersey Butcher Potassium [Moles/Vol] 3.1 mmol/L Critically low 3.5-5.[address] [facility] Comment on above: Performed By: #### T SH, BNP, HSTROPN, CMP #### [facility] [address] [place] [address] Dr. Jersey Butcher Protein [Mass/Vol] 6.6 g/dL Normal 6.4-8.2 [facility] Comment on above: Performed By: #### T SH, BNP, HSTROPN, CMP #### [facility] [address] [place] [address] Dr. Jersey Butcher Sodium [Moles/Vol] 132 mmol/L Critically low 136-145 [facility] Comment on above: Performed By: #### T SH, BNP, HSTROPN, CMP #### [facility] [address] [address] [address] Jersey Butcher Urea nitrogen [Mass/Vol] 22.0 mg/dL Critically high 7.0-18.[address] [facility] Comment on above: Performed By: #### T SH, BNP, HSTROPN, CMP #### [facility] [address] [address] [address] Jersey Butcher Urea nitrogen/Creatinine [Mass ratio] 19.1 mg/mg Normal [facility] Comment on above: Performed By: #### T SH, BNP, HSTROPN, CMP #### [facility] [address] [place] [address] Dr. Jersey Butcher QUANTIFERON TB GOLD PLUSon 1 08-05-2021 QuantiFERON Criteria Comment Normal [facility] Comment on above: Result Comment: Prateek tiFERON-TB Gold Plus is a qualitative indirect test for M tuberculosis infection (including disease) and is intended for use in conjunction with risk assessment, radiography, and other medical and diagnostic evaluations. The QuantiFERON-TB Gold Plus result is determined by subtracting the Nil value from either TB antigen (Ag) value. The Mitogen tube serves as a control for the test. Performed By: #### T SH, BNP, HSTROPN, CMP #### [facility] [address] [place] [address] Dr. Jersey Butcher QuantiFERON Incubation Incubation performed. Normal [facility] Comment on above: Performed By: #### T SH, BNP, HSTROPN, CMP #### [facility] [address] [place] [address] Dr. Jersey Butcher QuantiFERON Mitogen Value 4.42 IU/mL Normal [facility] Comment on above: Performed By: #### T SH, BNP, HSTROPN, CMP #### [facility] [address] [place] [address] Dr. Jersey Butcher QuantiFERON Nil Value 0.00 IU/mL Normal [facility] Comment on above: Performed By: #### T SH, BNP, HSTROPN, CMP #### [facility] [address] [place] [address] Dr. Jersey Butcher QuantiFERON TB1 Ag Value 0.00 IU/mL Normal [facility] Comment on above: Performed By: #### T SH, BNP, HSTROPN, CMP #### [facility] [address] [place] [address] Dr. Jersey Butcher QuantiFERON TB2 Ag Value 0.01 IU/mL Normal [facility] Comment on above: Performed By: #### T SH, BNP, HSTROPN, CMP #### [facility] [address] [place] [address] Dr. Jersey Butcher QuantiFERON-TB Gold Plus Negative Normal Negative [facility] Comment on above: Result Comment: No r esponse to M tuberculosis antigens detected. Infection with M tuberculosis is unlikely, but high risk individuals should be considered for additional testing (ATS/IDSA/CDC Clinical Practice Guidelines, 2017). The reference range is an Antigen minus Nil result of <0.35 IU/mL. Chemiluminescence immunoassay methodology Performed By: #### T SH, BNP, HSTROPN, CMP #### [facility] [address] [place] [address] Dr. Jersey Butcher BNPon 06-03-2022 Natriuretic peptide B (Bld) [Mass/Vol] 273.0 pg/mL Normal <=900.[address] [facility] Comment on above: Performed By: #### D DIM #### [facility] [address] [place] [address] Dr. Jersey Butcher CBC W MANUAL DIFFon 06-03-20 ATYPICAL LYMPH # Normal [facility] Comment on above: Performed By: #### C MADDIE #### [facility] [address] [place] [address] Dr. Jersey Butcher ATYPICAL LYMPH % Normal [facility] Comment on above: Performed By: #### C MADDIE #### [facility] [address] [place] [address] Dr. Jersey Butcher BAND # 0.0 103/ul Normal 0.0-0.3 [facility] Comment on above: Performed By: #### C MADDIE #### [facility] [address] [place] [address] Dr. Jersey Butcher BAND % 0 % Normal 0-5 [facility] Comment on above: Performed By: #### C MADDIE #### [facility] [address] [place] [address] Dr. Jersey Butcher BASOM # 0.00 103/ul Normal 0.00-0.[address] [facility] Comment on above: Performed By: #### C MADDIE #### [facility] [address] [place] [address] Dr. Jersey Butcher BASOM % 0.0 % Critically low 0.2-2.0 [facility] Comment on above: Performed By: #### C MADDIE #### [facility] [address] [place] [address] Dr. Jersey Butcher BLAST # Normal [facility] Comment on above: Performed By: #### C MADDIE #### [facility] [address] [place] [address] Dr. Jersey Butcher BLAST % Normal [facility] Comment on above: Performed By: #### C MADDIE #### [facility] [address] [place] [address] Dr. Jersey Butcher CORRECTED WBC Normal 4.0-11.0 [facility] Comment on above: Performed By: #### C MADDIE #### [facility] [address] [place] [address] Dr. Jersey Butcher EOS # 0.00 103/ul Normal 0.00-0.70 [facility] Comment on above: Performed By: #### C MADDIE #### [facility] [address] [place] [address] Dr. Jersey Butcher EOS% 0.0 % Critically low 0.9-7.0 [facility] Comment on above: Performed By: #### C MADDIE #### [facility] [address] [place] [address] Dr. Jersey Butcher HCT 41.2 % Critically low 42.0-54.0 [facility] Comment on above: Performed By: #### C MADDIE #### [facility] [address] [address] [address] Jersey Butcher HGB 14.3 g/dl Normal 14.0-18.[address] [facility] Comment on above: Performed By: #### C MADDIE #### [facility] [address] [address] [address] Jersey Butcher LYMPHM # 0.85 103/ul Critically low 1.20-3.80 [facility] Comment on above: Performed By: #### C MADDIE #### [facility] [address] [address] [address] Jersey Butcher LYMPHM% 7.0 % Critically low 20.5-60.0 [facility] Comment on above: Performed By: #### C MADDIE #### [facility] [address] [place] [address] Dr. Jersey Butcher MCH 31.3 pg Normal 25.9-34.[address] [facility] Comment on above: Performed By: #### C MADDIE #### [facility] [address] [place] [address] Dr. Jersey Butcher MCHC 34.7 g/dl Normal 29.9-35.[address] [facility] Comment on above: Performed By: #### C MADDIE #### [facility] [address] [place] [address] Dr. Jersey Butcher MCV 90.2 fL Normal 80.0-94.[address] [facility] Comment on above: Performed By: #### C MADDIE #### [facility] [address] [place] [address] Dr. Jersey Butcher METAMYELOCYTE # Normal [facility] Comment on above: Performed By: #### C MADDIE #### [facility] [address] [place] [address] Dr. Jersey Butcher METAMYELOCYTE % Normal [facility] Comment on above: Performed By: #### C MADDIE #### [facility] [address] [address] [address] Jersey Butcher MONOM# 0.24 103/ul Critically low 0.30-0.80 [facility] Comment on above: Performed By: #### C MADDIE #### [facility] [address] [place] [address] Dr. Jersey Butcher MONOM% 2.0 % Normal 1.7-12.[address] [facility] Comment on above: Performed By: #### C BCROSIE #### [facility] [address] [place] [address] Dr. Jersey Butcher MPV 10.8 fL Normal 9.5-13.[address] [facility] Comment on above: Performed By: #### C BCROSIE #### [facility] [address] [place] [address] Dr. Jersey Butcher MYELOCYTE # Normal [facility] Comment on above: Performed By: #### C MADDIE #### [facility] [address] [place] [address] Dr. Jersey Butcher MYELOCYTE % Normal [facility] Comment on above: Performed By: #### C MADDIE #### [facility] [address] [place] [address] Dr. Jersey Butcher NRBC Normal [facility] Comment on above: Performed By: #### C MADDIE #### [facility] [address] [place] [address] Dr. Jersey Butcher PLT 177 103/ul Normal 150-[address] [facility] Comment on above: Performed By: #### C MADDIE #### [facility] [address] [place] [address] Dr. Jersey Butcher RBC 4.57 106/ul Critically low 4.70-6.10 [facility] Comment on above: Performed By: #### C MADDIE #### [facility] [address] [place] [address] Dr. Jersey Butcher RDW 11.8 % Normal 11.0-15.[address] [facility] Comment on above: Performed By: #### C MADDIE #### [facility] [address] [place] [address] Dr. Jersey Butcher SEG # 11.10 103/ul Critically high 1.40-6.50 [facility] Comment on above: Performed By: #### C MADDIE #### [facility] [address] [address] [address] Jersey Butcher SEG % 91.0 % Critically high 43.0-75.0 [facility] Comment on above: Performed By: #### C PHILMAN #### [facility] [address] [address] [address] Jersey Butcher WBC 12.2 103/ul Critically high 4.0-11.0 [facility] Comment on above: Performed By: #### C MADDIE #### [facility] [address] [address] [address] Jersey Butcher PROF 14(COMP METB)on 022 Albumin [Mass/Vol] 2.9 g/dL Critically low 3.4-5.0 [facility] Comment on above: Performed By: #### D DIM #### [facility] [address] [place] [address] Dr. Jersey Butcher Albumin/Globulin [Mass ratio] 0.8 {ratio} Normal [facility] Comment on above: Performed By: #### D DIM #### [facility] [address] [place] [address] Dr. Jersey Butcher ALP [Catalytic activity/Vol] 90 U/L Normal 46-[address] [facility] Comment on above: Performed By: #### D DIM #### [facility] [address] [place] [address] Dr. Jersey Butcher ALT [Catalytic activity/Vol] 40 U/L Normal 16-[address] [facility] Comment on above: Performed By: #### D DIM #### [facility] [address] [address] [address] Jersey Butcher Anion gap [Moles/Vol] 6.7 mmol/L Normal [facility] Comment on above: Performed By: #### D DIM #### [facility] [address] [place] [address] Dr. Jersey Butcher AST [Catalytic activity/Vol] 20 U/L Normal 15-[address] [facility] Comment on above: Performed By: #### D DIM #### [facility] [address] [address] [address] Jersey Butcher Bilirubin [Mass/Vol] 0.4 mg/dL Normal 0.2-1.[address] [facility] Comment on above: Performed By: #### D DIM #### [facility] [address] [address] [address] Jersey Butcher Calcium [Mass/Vol] 8.6 mg/dL Normal 8.5-10.1 [facility] Comment on above: Performed By: #### D DIM #### [facility] [address] [address] [address] Jersey Butcher Chloride [Moles/Vol] 95 mmol/L Critically low 98-[address] [facility] Comment on above: Performed By: #### D DIM #### [facility] [address] [place] [address] Dr. Jersey Butcher CO2 [Moles/Vol] 33.6 mmol/L Critically high 21.0-32.[address] [facility] Comment on above: Performed By: #### D DIM #### [facility] [address] [address] [address] Jersey Butcher Creatinine [Mass/Vol] 1.14 mg/dL Normal 0.70-1.[address] [facility] Comment on above: Performed By: #### D DIM #### [facility] [address] [address] [address] Jersey Butcher EGFR-AF SWISS >60 Normal >=60 [facility] Comment on above: Performed By: #### D DIM #### [facility] [address] [address] [address] Jersey Butcher EGFR-NON AF SWISS >60 Normal >=[address] [facility] Comment on above: Performed By: #### D DIM #### [facility] [address] [place] [address] Dr. Jersey Butcher Globulin (S) [Mass/Vol] 3.7 g/dL Normal [facility] Comment on above: Performed By: #### D DIM #### [facility] [address] [address] [address] Jersey Butcher Glucose [Mass/Vol] 205 mg/dL Critically high 74-106 [facility] Comment on above: Performed By: #### D DIM #### [facility] [address] [place] [address] Dr. Jersey Butcher Potassium [Moles/Vol] 3.3 mmol/L Critically low 3.5-5.[address] [facility] Comment on above: Performed By: #### D DIM #### [facility] [address] [place] [address] Dr. Jersey Butcher Protein [Mass/Vol] 6.6 g/dL Normal 6.4-8.2 [facility] Comment on above: Performed By: #### D DIM #### [facility] [address] [place] [address] Dr. Jersey Butcher Sodium [Moles/Vol] 132 mmol/L Critically low 136-145 [facility] Comment on above: Performed By: #### D DIM #### [facility] [address] [place] [address] Dr. Jersey Butcher Urea nitrogen [Mass/Vol] 24.0 mg/dL Critically high 7.0-18.[address] [facility] Comment on above: Performed By: #### D DIM #### [facility] [address] [place] [address] Dr. Jersey Butcher Urea nitrogen/Creatinine [Mass ratio] 21.1 mg/mg Normal [facility] Comment on above: Performed By: #### D DIM #### [facility] [address] [place] [address] Dr. Jersey Butcher BNPon 06-02-2022 Natriuretic peptide B (Bld) [Mass/Vol] 85.0 pg/mL Normal <=900.[address] [facility] Comment on above: Performed By: #### C VDTBH #### [facility] [address] [place] [address] Dr. Jersey Butcher CBC AUTO DIFFon 06-02-2022 BASO # 0.0 103/ul Normal 0.0-0.[address] [facility] Comment on above: Performed By: #### T SH, BNP, HSTROPN, CMP #### [facility] [address] [place] [address] Dr. Jersey Butcher Basophils/100 WBC (Bld) 0.5 % Normal 0.2-2.[address] [facility] Comment on above: Performed By: #### T SH, BNP, HSTROPN, CMP #### [facility] [address] [place] [address] Dr. Jersey Butcher EO # 0.0 103/ul Normal 0.0-0.7 [facility] Comment on above: Performed By: #### T SH, BNP, HSTROPN, CMP #### [facility] [address] [place] [address] Dr. Jersey Butcher Eosinophils/100 WBC (Bld) 0.0 % Critically low 0.9-7.[address] [facility] Comment on above: Performed By: #### T SH, BNP, HSTROPN, CMP #### [facility] [address] [place] [address] Dr. Jersey Butcher Erythrocyte distribution width (RBC) [Ratio] 11.5 % Normal 11.0-15.[address] [facility] Comment on above: Performed By: #### T SH, BNP, HSTROPN, CMP #### [facility] [address] [place] [address] Dr. Jersey Butcher Hematocrit (Bld) [Volume fraction] 42.8 % Normal 42.0-54.0 [facility] Comment on above: Performed By: #### T SH, BNP, HSTROPN, CMP #### [facility] [address] [place] [address] Dr. Jersey Butcher Hemoglobin (Bld) [Mass/Vol] 14.6 g/dL Normal 14.0-18.0 [facility] Comment on above: Performed By: #### T SH, BNP, HSTROPN, CMP #### [facility] [address] [place] [address] Dr. Jersey Butcher IG # 0.00 10e3/ul Normal 0.00-0.[address] [facility] Comment on above: Performed By: #### T SH, BNP, HSTROPN, CMP #### [facility] [address] [address] [address] Jersey Butcher IG % 0.0 % Normal 0.0-0.[address] [facility] Comment on above: Performed By: #### T SH, BNP, HSTROPN, CMP #### [facility] [address] [place] [address] Dr. Jersey Butcher LYMPH # 0.4 103/ul Critically low 1.2-3.8 [facility] Comment on above: Performed By: #### T SH, BNP, HSTROPN, CMP #### [facility] [address] [place] [address] Dr. Jersey Butcher Lymphocytes/100 WBC (Bld) 18.4 % Critically low 20.5-60.[address] [facility] Comment on above: Performed By: #### T SH, BNP, HSTROPN, CMP #### [facility] [address] [place] [address] Dr. Jersey Butcher MANUAL DIFF REQ NO Normal [facility] Comment on above: Performed By: #### T SH, BNP, HSTROPN, CMP #### [facility] [address] [place] [address] Dr. Jersey Butcher MCH (RBC) [Entitic mass] 30.9 pg Normal 25.9-34.[address] [facility] Comment on above: Performed By: #### T SH, BNP, HSTROPN, CMP #### [facility] [address] [place] [address] Dr. Jersey Butcher MCHC (RBC) [Mass/Vol] 34.1 g/dL Normal 29.9-35.2 [facility] Comment on above: Performed By: #### T SH, BNP, HSTROPN, CMP #### [facility] [address] [place] [address] Dr. Jersey Butcher MCV (RBC) [Entitic vol] 90.7 fL Normal 80.0-94.[address] [facility] Comment on above: Performed By: #### T SH, BNP, HSTROPN, CMP #### [facility] [address] [place] [address] Dr. Jersey Butcher MONO # 0.1 103/ul Critically low 0.3-0.8 [facility] Comment on above: Performed By: #### T SH, BNP, HSTROPN, CMP #### [facility] [address] [place] [address] Dr. Jersey Butcher Monocytes/100 WBC (Bld) 4.6 % Normal 1.7-12.0 [facility] Comment on above: Performed By: #### T SH, BNP, HSTROPN, CMP #### [facility] [address] [place] [address] Dr. Jersey Butcher NEUT # 1.7 103/ul Normal 1.4-6.5 [facility] Comment on above: Performed By: #### T SH, BNP, HSTROPN, CMP #### [facility] [address] [place] [address] Dr. Jersey Butcher Neutrophils/100 WBC (Bld) 76.5 % Critically high 43.0-75.0 [facility] Comment on above: Performed By: #### T SH, BNP, HSTROPN, CMP #### [facility] [address] [place] [address] Dr. Jersey Butcher Platelet mean volume (Bld) [Entitic vol] 10.1 fL Normal 9.5-13.5 [facility] Comment on above: Performed By: #### T SH, BNP, HSTROPN, CMP #### [facility] [address] [place] [address] Dr. Jersey Butcher PLT 160 103/ul Normal 150-450 [facility] Comment on above: Performed By: #### T SH, BNP, HSTROPN, CMP #### [facility] [address] [place] [address] Dr. Jersey Butcher RBC 4.72 106/ul Normal 4.70-6.10 [facility] Comment on above: Performed By: #### T SH, BNP, HSTROPN, CMP #### [facility] [address] [address] [address] Jersey Butcher WBC 2.2 103/ul Critically low 4.0-11.0 [facility] Comment on above: Performed By: #### T SH, BNP, HSTROPN, CMP #### [facility] [address] [address] [address] Jersey Butcher PROF 14(COMP METB)on 022 Albumin [Mass/Vol] 2.7 g/dL Critically low 3.4-5.0 Th [facility] Comment on above: Performed By: #### C VDTBH #### [facility] [address] [place] [address] Dr. Jersey Butcher Albumin/Globulin [Mass ratio] 0.7 {ratio} Normal [facility] Comment on above: Performed By: #### C VDTBH #### [facility] [address] [place] [address] Dr. Jersey Butcher ALP [Catalytic activity/Vol] 102 U/L Normal 46-[address] [facility] Comment on above: Performed By: #### C VDTBH #### [facility] [address] [place] [address] Dr. Jersey Butcher ALT [Catalytic activity/Vol] 45 U/L Normal 16-[address] [facility] Comment on above: Performed By: #### C VDTBH #### [facility] [address] [place] [address] Dr. Jersey Butcher Anion gap [Moles/Vol] 7.4 mmol/L Normal [facility] Comment on above: Performed By: #### C VDTBH #### [facility] [address] [place] [address] Dr. Jersey Butcher AST [Catalytic activity/Vol] 30 U/L Normal 15-[address] [facility] Comment on above: Performed By: #### C VDTBH #### [facility] [address] [place] [address] Dr. Jersey Butcher Bilirubin [Mass/Vol] 0.3 mg/dL Normal 0.2-1.[address] [facility] Comment on above: Performed By: #### C VDTBH #### [facility] [address] [address] [address] Jersey Butcher Calcium [Mass/Vol] 8.3 mg/dL Critically low 8.5-10.1 Th [facility] Comment on above: Performed By: #### C VDTBH #### [facility] [address] [address] [address] Jersey Butcher Chloride [Moles/Vol] 94 mmol/L Critically low 98-[address] [facility] Comment on above: Performed By: #### C VDTBH #### [facility] [address] [address] [address] Jersey Butcher CO2 [Moles/Vol] 32.8 mmol/L Critically high 21.0-32.[address] [facility] Comment on above: Performed By: #### C VDTBH #### [facility] [address] [place] [address] Dr. Jersey Butcher Creatinine [Mass/Vol] 1.23 mg/dL Normal 0.70-1.[address] [facility] Comment on above: Performed By: #### C VDTBH #### [facility] [address] [place] [address] Dr. Jersey Butcher EGFR-AF SWISS >60 Normal >=60 [facility] Comment on above: Performed By: #### C VDTBH #### [facility] [address] [address] [address] Jersey Butcher EGFR-NON AF SWISS 60 mL/min/1.73m2 Normal >=[address] [facility] Comment on above: Performed By: #### C VDTBH #### [facility] [address] [address] [address] Jersey Butcher Globulin (S) [Mass/Vol] 3.9 g/dL Normal [facility] Comment on above: Performed By: #### C VDTBH #### [facility] [address] [place] [address] Dr. Jersey Butcher Glucose [Mass/Vol] 314 mg/dL Critically high 74-106 [facility] Comment on above: Performed By: #### C VDTBH #### [facility] [address] [place] [address] Dr. Jersey Butcher Potassium [Moles/Vol] 3.2 mmol/L Critically low 3.5-5.[address] [facility] Comment on above: Performed By: #### C VDTBH #### [facility] [address] [place] [address] Dr. Jersey Butcher Protein [Mass/Vol] 6.6 g/dL Normal 6.4-8.2 [facility] Comment on above: Performed By: #### C VDTBH #### [facility] [address] [place] [address] Dr. Jersey Butcher Sodium [Moles/Vol] 131 mmol/L Critically low 136-145 Th [facility] Comment on above: Performed By: #### C VDTBH #### [facility] [address] [place] [address] Dr. Jersey Butcher Urea nitrogen [Mass/Vol] 20.0 mg/dL Critically high 7.0-18.[address] [facility] Comment on above: Performed By: #### C VDTBH #### [facility] [address] [place] [address] Dr. Jersey Butcher Urea nitrogen/Creatinine [Mass ratio] 16.3 mg/mg Normal [facility] Comment on above: Performed By: #### C VDTBH #### [facility] [address] [place] [address] Dr. Jersey Butcher BNPon 06-01-2022 Natriuretic peptide B (Bld) [Mass/Vol] 70.0 pg/mL Normal <=900.[address] [facility] Comment on above: Performed By: #### T SH, BNP, HSTROPN, CMP #### [facility] [address] [place] [address] Dr. Jersey Butcher CARDIAC VIDHI 3-6on 2 CK [Catalytic activity/Vol] 193 U/L Normal 39-[address] [facility] Comment on above: Performed By: #### T SH, BNP, HSTROPN, CMP #### [facility] [address] [place] [address] Dr. Jersey Butcher CK.MB [Mass/Vol] 2.87 ng/mL Normal <=3.60 [facility] Comment on above: Performed By: #### T SH, BNP, HSTROPN, CMP #### [facility] [address] [place] [address] Dr. Jersey Butcher HSTROP 11.7 pg/mL Normal 4.0-76.1 [facility] Comment on above: Result Comment: CUT- OFF POINTS HAVE BEEN ESTABLISHED BASED ON THE FOURTH UNIVERSAL DEFINITIONS OF MYOCARDIAL INFARCTION. THE UPPER REFERENCE LIMIT (URL) OF TROPONIN, DEFINED THE 99TH PERCENTILE OF cTnI DISTRIBUTION IN A REFERENCE POPULATION, HAS BEEN CONFIRMED THE DECISION THRESHOLD FOR MO DIAGNOSIS. Performed By: #### T SH, BNP, HSTROPN, CMP #### [facility] [address] [place] [address] Dr. Jersey Butcher CK [Catalytic activity/Vol] 218 U/L Normal 39-308 [facility] Comment on above: Performed By: #### T SH, BNP, HSTROPN, CMP #### [facility] [address] [place] [address] Dr. Jersey Butcher CK.MB [Mass/Vol] 3.01 ng/mL Normal <=3.60 [facility] Comment on above: Performed By: #### T SH, BNP, HSTROPN, CMP #### [facility] [address] [place] [address] Dr. Jersey Butcher HSTROP 13.9 pg/mL Normal 4.0-76.1 [facility] Comment on above: Result Comment: CUT- OFF POINTS HAVE BEEN ESTABLISHED BASED ON THE FOURTH UNIVERSAL DEFINITIONS OF MYOCARDIAL INFARCTION. THE UPPER REFERENCE LIMIT (URL) OF TROPONIN, DEFINED THE 99TH PERCENTILE OF cTnI DISTRIBUTION IN A REFERENCE POPULATION, HAS BEEN CONFIRMED THE DECISION THRESHOLD FOR MO DIAGNOSIS. Performed By: #### T SH, BNP, HSTROPN, CMP #### [facility] [address] [place] [address] Dr. Jersey Butcher CBC W MANUAL DIFFon 06-01-20 22 ATYPICAL LYMPH # Normal [facility] Comment on above: Performed By: #### T SH, BNP, HSTROPN, CMP #### [facility] [address] [address] [address] Jersey Butcher ATYPICAL LYMPH % Normal [facility] Comment on above: Performed By: #### T SH, BNP, HSTROPN, CMP #### [facility] [address] [address] [address] Jersey Butcher BAND # 0.1 103/ul Normal 0.0-0.[address] [facility] Comment on above: Performed By: #### T SH, BNP, HSTROPN, CMP #### [facility] [address] [address] [address] Jersey Butcher BAND % 2 % Normal 0-[address] [facility] Comment on above: Performed By: #### T SH, BNP, HSTROPN, CMP #### [facility] [address] [place] [address] Dr. Jersey Butcher BASOM # 0.00 103/ul Normal 0.00-0.[address] [facility] Comment on above: Performed By: #### T SH, BNP, HSTROPN, CMP #### [facility] [address] [place] [address] Dr. Jersey Butcher BASOM % 0.0 % Critically low 0.2-2.0 [facility] Comment on above: Performed By: #### T SH, BNP, HSTROPN, CMP #### [facility] [address] [place] [address] Dr. Jersey Butcher BLAST # Normal [facility] Comment on above: Performed By: #### T SH, BNP, HSTROPN, CMP #### [facility] [address] [address] [address] Jersey Butcher BLAST % Normal [facility] Comment on above: Performed By: #### T SH, BNP, HSTROPN, CMP #### [facility] [address] [place] [address] Dr. Jersey Butcher CORRECTED WBC Normal 4.0-11.0 [facility] Comment on above: Performed By: #### T SH, BNP, HSTROPN, CMP #### [facility] [address] [address] [address] Jersey Butcher EOS # 0.00 103/ul Normal 0.00-0.[address] [facility] Comment on above: Performed By: #### T SH, BNP, HSTROPN, CMP #### [facility] [address] [place] [address] Dr. Jersey Butcher EOS% 0.0 % Critically low 0.9-7.0 [facility] Comment on above: Performed By: #### T SH, BNP, HSTROPN, CMP #### [facility] [address] [place] [address] Dr. Jersey Butcher HCT 45.5 % Normal 42.0-54.[address] [facility] Comment on above: Performed By: #### T SH, BNP, HSTROPN, CMP #### [facility] [address] [place] [address] Dr. Jersey Butcher HGB 16.1 g/dl Normal 14.0-18.[address] [facility] Comment on above: Performed By: #### T SH, BNP, HSTROPN, CMP #### [facility] [address] [place] [address] Dr. Jersey Butcher LYMPHM # 1.15 103/ul Critically low 1.20-3.80 [facility] Comment on above: Performed By: #### T SH, BNP, HSTROPN, CMP #### [facility] [address] [place] [address] Dr. Jersey Butcher LYMPHM% 25.0 % Normal 20.5-60.[address] [facility] Comment on above: Performed By: #### T SH, BNP, HSTROPN, CMP #### [facility] [address] [place] [address] Dr. Jersey Butcher MCH 31.5 pg Normal 25.9-34.[address] [facility] Comment on above: Performed By: #### T SH, BNP, HSTROPN, CMP #### [facility] [address] [address] [address] Jersey Butcher MCHC 35.4 g/dl Critically high 29.9-35.2 [facility] Comment on above: Performed By: #### T SH, BNP, HSTROPN, CMP #### [facility] [address] [address] [address] Jersey Butcher MCV 89.0 fL Normal 80.0-94.[address] [facility] Comment on above: Performed By: #### T SH, BNP, HSTROPN, CMP #### [facility] [address] [address] [address] Jersey Butcher METAMYELOCYTE # Normal [facility] Comment on above: Performed By: #### T SH, BNP, HSTROPN, CMP #### [facility] [address] [address] [address] Jersey Butcher METAMYELOCYTE % Normal [facility] Comment on above: Performed By: #### T SH, BNP, HSTROPN, CMP #### [facility] [address] [address] [address] Jersey Butcher MONOM# 0.32 103/ul Normal 0.30-0.[address] [facility] Comment on above: Performed By: #### T SH, BNP, HSTROPN, CMP #### [facility] [address] [address] [address] Jersey Butcher MONOM% 7.0 % Normal 1.7-12.0 [facility] Comment on above: Performed By: #### T SH, BNP, HSTROPN, CMP #### [facility] [address] [address] [address] Jersey Butcher MPV 10.4 fL Normal 9.5-13.5 [facility] Comment on above: Performed By: #### T SH, BNP, HSTROPN, CMP #### [facility] [address] [address] [address] Jersey Butcher MYELOCYTE # Normal [facility] Comment on above: Performed By: #### T SH, BNP, HSTROPN, CMP #### [facility] [address] [address] [address] Jersey Butcher MYELOCYTE % Normal [facility] Comment on above: Performed By: #### T SH, BNP, HSTROPN, CMP #### [facility] [address] [address] [address] Jersey Butcher NRBC Normal [facility] Comment on above: Performed By: #### T SH, BNP, HSTROPN, CMP #### [facility] [address] [address] [address] Jersey Butcher PLT 195 103/ul Normal 150-450 [facility] Comment on above: Performed By: #### T SH, BNP, HSTROPN, CMP #### [facility] [address] [place] [address] Dr. Jersey Butcher RBC 5.11 106/ul Normal 4.70-6.10 [facility] Comment on above: Performed By: #### T SH, BNP, HSTROPN, CMP #### [facility] [address] [place] [address] Dr. Jersey Butcher RDW 11.6 % Normal 11.0-15.0 [facility] Comment on above: Performed By: #### T SH, BNP, HSTROPN, CMP #### [facility] [address] [place] [address] Dr. Jersey Butcher SEG # 3.04 103/ul Normal 1.40-6.50 [facility] Comment on above: Performed By: #### T SH, BNP, HSTROPN, CMP #### [facility] [address] [place] [address] Dr. Jersey Butcher SEG % 66.0 % Normal 43.0-75.0 [facility] Comment on above: Performed By: #### T SH, BNP, HSTROPN, CMP #### [facility] [address] [address] [address] Jersey Butcher WBC 4.6 103/ul Normal 4.0-11.0 [facility] Comment on above: Performed By: #### T SH, BNP, HSTROPN, CMP #### [facility] [address] [address] [address] Jersey Butcher CTA CHEST WO W CONon 022 CTA CHEST WO W CON EXAMINATION: CTA TOMMY ST WO W CON, 06/01/2022 3:59 PM EST HISTORY: Pulmonary embolism, acute dyspnea for one week, cough, history of COPD. COMPARISON: CT chest 11/06/2021, 07/20/2020. TECHNIQUE: CT angiography of the chest was performed with IV contrast. MIP (maximum intensity projection) images or 3D post processing was performed. CT dose reduction technique was used, including Automated Exposure Control. FINDINGS: VASCULATURE/PULMONARY ARTERIES: There is suboptimal but satisfactory opacification of the pulmonary arterial system. There is no evidence of pulmonary embolism. The main pulmonary artery is mildly dilated at 3.1 cm. The aorta and great vessels appear normal. HEART/PERICARDIUM: Moderate atherosclerotic coronary artery calcification. There is normal variant lipomatous hypertrophy of the intra-atrial septum which is stable. MEDIASTINAL/HILAR LYMPH NODES: Mildly enlarged 1.1 x 1.4 cm right upper paratracheal lymph node, image 15 series 4 which is stable compared to the CT from 11/06/2021 as well as 07/20/2020. ESOPHAGUS: Normal as visualized. PLEURAL CAVITY: No pleural effusion or pneumothorax. LUNGS/AIRWAYS: There is moderate diffuse bronchial wall thickening consistent with bronchitis. 6 mm subpleural right lower lobe nodule, image 70 which is measured at approximately 5 mm on 07/20/2020 and also 6 mm on 11/06/2021. 6 mm subpleural left lower lobe nodule, image 58 which is measured at 4 mm on 07/20/2020 and 4.5 mm on 11/06/2021. There are multiple subpleural areas of groundglass and reticular opacities in the lower lung zones bilaterally which appear worsened since the study from 11/06/2021 with a few areas of subpleural sparing. There is a stable calcified granuloma in the right lower lobe. There is a 7 mm left lower lobe nodule on image 73 which previously measured 5 mm on 11/06/2021. CHEST WALL/AXILLA/LOWER NECK: Normal. VISUALIZED UPPER ABDOMEN: Moderate diffuse fatty liver. Coarse calcification in the right lobe of the liver consistent with a granuloma. Mild splenomegaly. BONES: Mild degenerative changes of thoracic spine as well as findings suggestive of DISH. IMPRESSION: 1. Suboptimal pulmonary artery opacification but no definite pulmonary embolism. 2. Bronchial wall thickening consistent with bronchitis. 3. Several pulmonary nodules as described above which appear slightly increasing in size compared to prior studies. Metastatic disease cannot be excluded. Recommend follow-up chest CT in 6 months. 4. Progressive subpleural pulmonary opacities as described above suggestive of a nonspecific interstitial pneumonia pattern which may be idiopathic or due to other etiologies such as drug-induced interstitial lung disease, connective tissue disease/interstitial lung disease, interstitial pneumonia with autoimmune features, or desquamative interstitial pneumonia and acute atypical pneumonia is not excluded. Recommend attention on follow-up CT (preferably with high-resolution CT protocol). Consider pulmonology consultation. 5. Enlarged right superior mediastinal lymph node which is stable and likely benign in nature. 6. Dilated main pulmonary artery suggestive of pulmonary hypertension. 7. Atherosclerotic coronary artery calcification. 8. Fatty liver and splenomegaly. Electronically authenticated by: KESHAWN ALVAREZ Date: 2022-06-01 17:[address] [facility] CULTURE BLOODon 06-01-2022 Microscopic examination of blood, culture Culture Observations: NO GROWTH AT 5 DAYS. [address] [facility] Comment on above: Performed By: #### C MADDIE #### [facility] [address] [address] [address] Jersey Butcher Microscopic examination of blood, culture Culture Observations: NO GROWTH AT [address] [facility] Comment on above: Performed By: #### C MADDIE #### [facility] [address] [place] [address] Dr. Jersey Butcher [facility] SARS-CoV-2 (COVID-19) RNA PILI+probe Ql (Unsp spec) Not detected Normal NOT DETECTED [facility] Comment on above: Result Comment: When diagnostic testing is negative, the possibility of a false negative should be considered in the context of a patient's recent exposures and the presence of clinical signs and symptoms consistent with SARS-CoV-2. This test is not yet approved or cleared by the [place] FDA. When there are no FDA-approved or cleared tests available, and other criteria are met, FDA can make tests available under an emergency access mechanism called an Emergency Use Authorization (EUA). The EUA for this test is supported by the [place] of Health and Human Service's declaration that circumstances exist to justify the emergency use of in vitro diagnostics for the detection and/or diagnosis of the virus that causes COVID-19. This EUA will remain in effect for the duration of the COVID-19 declaration justifying emergency of IVDs, unless it is terminated or revoked by the FDA (after which the test may no longer be used). Performed By: #### D DIM #### [facility] Laboratory [address] [place] [address] Dr. Jersey Butcher LACTATE/LACTIC ACIDon 2021 Lactate [Moles/Vol] 1.3 mmol/L Normal 0.4-1.9 [facility] Comment on above: Performed By: #### T SH, BNP, HSTROPN, CMP #### [facility] Laboratory [address] [place] [address] Dr. Jersey Butcher PH VENOUS BLOODon 06-01-2022 PCO2 VENOUS 45.8 mmHg Normal 40.0-52.[address] [facility] Comment on above: Performed By: #### C VDTBH #### [facility] Laboratory [address] [place] [address] Dr. Jersey Butcher pH VENOUS 7.508 Critically high 7.330-7.430 [facility] Comment on above: Performed By: #### C VDTBH #### [facility] Laboratory [address] [place] [address] Dr. Jersey Butcher PROF 14(COMP METB)on 022 Albumin [Mass/Vol] 3.1 g/dL Critically low 3.4-5.0 [facility] Comment on above: Performed By: #### T SH, BNP, HSTROPN, CMP #### [facility] Laboratory [address] [place] [address] Dr. Jersey Butcher Albumin/Globulin [Mass ratio] 0.8 {ratio} Normal [facility] Comment on above: Performed By: #### T SH, BNP, HSTROPN, CMP #### [facility] Laboratory [address] [place] [address] Dr. Jersey Butcher ALP [Catalytic activity/Vol] 103 U/L Normal 46-[address] [facility] Comment on above: Performed By: #### T SH, BNP, HSTROPN, CMP #### [facility] Laboratory [address] [address] [address] Jersey Butcher ALT [Catalytic activity/Vol] 50 U/L Normal 16-[address] [facility] Comment on above: Performed By: #### T SH, BNP, HSTROPN, CMP #### [facility] Laboratory [address] [place] [address] Dr. Jersey Butcher Anion gap [Moles/Vol] 6.7 mmol/L Normal [facility] Comment on above: Performed By: #### T SH, BNP, HSTROPN, CMP #### [facility] Laboratory [address] [place] [address] Dr. Jersey Butcher AST [Catalytic activity/Vol] 43 U/L Critically high 15-[address] [facility] Comment on above: Performed By: #### T SH, BNP, HSTROPN, CMP #### [facility] Laboratory [address] [place] [address] Dr. Jersey Butcher Bilirubin [Mass/Vol] 0.7 mg/dL Normal 0.2-1.[address] [facility] Comment on above: Performed By: #### T SH, BNP, HSTROPN, CMP #### [facility] Laboratory [address] [place] [address] Dr. Jersey Butcher Calcium [Mass/Vol] 8.7 mg/dL Normal 8.5-10.1 [facility] Comment on above: Performed By: #### T SH, BNP, HSTROPN, CMP #### [facility] Laboratory [address] [address] [address] Jersey Butcher Chloride [Moles/Vol] 94 mmol/L Critically low 98-[address] [facility] Comment on above: Performed By: #### T SH, BNP, HSTROPN, CMP #### [facility] Laboratory [address] [address] [address] Jersey Butcher CO2 [Moles/Vol] 35.4 mmol/L Critically high 21.0-32.[address] [facility] Comment on above: Performed By: #### T SH, BNP, HSTROPN, CMP #### [facility] Laboratory [address] [place] [address] Dr. Jersey Butcher Creatinine [Mass/Vol] 1.05 mg/dL Normal 0.70-1.[address] [facility] Comment on above: Performed By: #### T SH, BNP, HSTROPN, CMP #### [facility] Laboratory [address] [address] [address] Jersey Butcher EGFR-AF SWISS >60 Normal >=60 [facility] Comment on above: Performed By: #### T SH, BNP, HSTROPN, CMP #### [facility] Laboratory [address] [place] [address] Dr. Jersey Butcher EGFR-NON AF SWISS >60 Normal >=[address] [facility] Comment on above: Performed By: #### T SH, BNP, HSTROPN, CMP #### [facility] Laboratory [address] [place] [address] Dr. Jersey Butcher Globulin (S) [Mass/Vol] 3.9 g/dL Normal [facility] Comment on above: Performed By: #### T SH, BNP, HSTROPN, CMP #### [facility] Laboratory [address] [place] [address] Dr. Jersey Butcher Glucose [Mass/Vol] 116 mg/dL Critically high 74-106 [facility] Comment on above: Performed By: #### T SH, BNP, HSTROPN, CMP #### [facility] Laboratory [address] [place] [address] Dr. Jersey Butcher Potassium [Moles/Vol] 3.1 mmol/L Critically low 3.5-5.[address] [facility] Comment on above: Performed By: #### T SH, BNP, HSTROPN, CMP #### [facility] Laboratory [address] [place] [address] Dr. Jersey Butcher Protein [Mass/Vol] 7.0 g/dL Normal 6.4-8.2 [facility] Comment on above: Performed By: #### T SH, BNP, HSTROPN, CMP #### [facility] Laboratory [address] [address] [address] Jersey Butcher Sodium [Moles/Vol] 133 mmol/L Critically low 136-145 Th e [facility] Comment on above: Performed By: #### T SH, BNP, HSTROPN, CMP #### [facility] Laboratory [address] [place] [address] Dr. Jersey Butcher Urea nitrogen [Mass/Vol] 19.0 mg/dL Critically high 7.0-18.[address] [facility] Comment on above: Performed By: #### T SH, BNP, HSTROPN, CMP #### [facility] Laboratory [address] [place] [address] Dr. Jersey Butcher Urea nitrogen/Creatinine [Mass ratio] 18.1 mg/mg Normal [facility] Comment on above: Performed By: #### T SH, BNP, HSTROPN, CMP #### [facility] Laboratory [address] [place] [address] Dr. Jersey Butcher PROTIMEon 06-01-2022 INR Coag (PPP) [Relative time] 0.95 {INR} Normal [facility] Comment on above: Performed By: #### T SH, BNP, HSTROPN, CMP #### [facility] Laboratory [address] [place] [address] Dr. Jersey Butcher INR GUIDELINES SEE BELOW Normal [facility] Comment on above: Result Comment: MARCIA RED INR: 2.0 - 3.0 CONDITIONS NOT LISTED BELOW 2.5 - 3.5 FOR PROSTHETIC HEART VALVE REPLACEMENT 2.5 - 3.5 RECURRENT THROMBOSIS Performed By: #### T SH, BNP, HSTROPN, CMP #### [facility] Laboratory [address] [place] [address] Dr. Jersey Butcher PT Coag (PPP) [Time] 10.3 s Normal 9.0-11.[address] [facility] Comment on above: Performed By: #### T SH, BNP, HSTROPN, CMP #### [facility] Laboratory [address] [place] [address] Dr. Jersey Butcher PTTon 06-01-2022 aPTT Coag (Bld) [Time] 27.1 s Normal 22.3-36.2 [facility] Comment on above: Performed By: #### T SH, BNP, HSTROPN, CMP #### [facility] Laboratory [address] [place] [address] Dr. Jersey Butcher TROPONIN, HIGH SENSITIVITYon 06-01-2022 HSTROP 14.8 pg/mL Normal 4.0-76.1 [facility] Comment on above: Result Comment: CUT- OFF POINTS HAVE BEEN ESTABLISHED BASED ON THE FOURTH UNIVERSAL DEFINITIONS OF MYOCARDIAL INFARCTION. THE UPPER REFERENCE LIMIT (URL) OF TROPONIN, DEFINED THE 99TH PERCENTILE OF cTnI DISTRIBUTION IN A REFERENCE POPULATION, HAS BEEN CONFIRMED THE DECISION THRESHOLD FOR MO DIAGNOSIS. Performed By: #### T SH, BNP, HSTROPN, CMP #### [facility] Laboratory [address] [place] [address] Dr. Jersey Butcher TSHon 06-01-2022 TSH 0.358 uIU/mL Normal 0.358-3.740 [facility] Comment on above: Performed By: #### T SH, BNP, HSTROPN, CMP #### [facility] Laboratory [address] [address] [address] Jersey Butcher [facility]18 SARS-CoV-2 (COVID-19) RNA PILI+probe Ql (Unsp spec) Not detected Normal NOT DETECTED The [facility] Comment on above: Result Comment: This test is not yet approved or cleared by the [place] FDA. When there are no FDA-approved or cleared tests available, and other criteria are met, FDA can make tests available under an emergency access mechanism called an Emergency Use Authorization (EUA). The EUA for this test is supported by the [place] of Health and Human Service's (HHS's) declaration that circumstances exist to justify the emergency use of in vitro diagnostics for the detection and/or diagnosis of the virus that causes COVID-19. This EUA will remain in effect (meaning this test can be used) for the duration of the COVID-19 declaration justifying emergency of IVDs, unless it is terminated or revoked by FDA (after which the test may no longer be used). When diagnostic testing is negative, the possibility of a false negative should be considered in the context of a patient's recent exposures and the presence of clinical signs and symptoms consistent with SARS-CoV-2. Performed By: #### T SH, BNP, HSTROPN, CMP #### [facility] Laboratory [address] [place] [address] Dr. Jersey Butcher CARDIAC VIDHI 3-6on 2 CK [Catalytic activity/Vol] 624 U/L Critically high 39-[address] [facility] Comment on above: Performed By: #### T SH, BNP, HSTROPN, CMP #### [facility] Laboratory [address] [place] [address] Dr. Jersey Butcher CK.MB [Mass/Vol] 0.09 ng/mL Normal <=3.60 [facility] Comment on above: Performed By: #### T SH, BNP, HSTROPN, CMP #### [facility] Laboratory [address] [place] [address] Dr. Jersey Butcher HSTROP 14.9 pg/mL Normal 4.0-76.1 [facility] Comment on above: Result Comment: CUT- OFF POINTS HAVE BEEN ESTABLISHED BASED ON THE FOURTH UNIVERSAL DEFINITIONS OF MYOCARDIAL INFARCTION. THE UPPER REFERENCE LIMIT (URL) OF TROPONIN, DEFINED THE 99TH PERCENTILE OF cTnI DISTRIBUTION IN A REFERENCE POPULATION, HAS BEEN CONFIRMED THE DECISION THRESHOLD FOR MO DIAGNOSIS. Performed By: #### T SH, BNP, HSTROPN, CMP #### [facility] Laboratory [address] [place] [address] Dr. Jersey Butcher CARDIAC VIDHI ADMITon 022 CK [Catalytic activity/Vol] 659 U/L Critically high 39-[address] [facility] Comment on above: Performed By: #### T SH, BNP, HSTROPN, CMP #### [facility] Laboratory [address] [place] [address] Dr. Jersey Butcher CK.MB [Mass/Vol] 0.16 ng/mL Normal <=3.60 [facility] Comment on above: Performed By: #### T SH, BNP, HSTROPN, CMP #### [facility] Laboratory [address] [address] [address] Jersey Butcher HSTROP 15.8 pg/mL Normal 4.0-76.1 [facility] Comment on above: Result Comment: CUT- OFF POINTS HAVE BEEN ESTABLISHED BASED ON THE FOURTH UNIVERSAL DEFINITIONS OF MYOCARDIAL INFARCTION. THE UPPER REFERENCE LIMIT (URL) OF TROPONIN, DEFINED THE 99TH PERCENTILE OF cTnI DISTRIBUTION IN A REFERENCE POPULATION, HAS BEEN CONFIRMED THE DECISION THRESHOLD FOR MO DIAGNOSIS. Performed By: #### T SH, BNP, HSTROPN, CMP #### [facility] Laboratory [address] [address] [address] Jersey Butcher NILDA 266 ng/mL Critically high 16-96 [facility] Comment on above: Performed By: #### T SH, BNP, HSTROPN, CMP #### [facility] Laboratory [address] [place] [address] Dr. Jersey Butcher CBC AUTO DIFFon 05-26-2022 BASO # 0.0 103/ul Normal 0.0-0.[address] [facility] Comment on above: Performed By: #### C MADDIE #### [facility] Laboratory [address] [address] [address] Jersey Butcher Basophils/100 WBC (Bld) 0.2 % Normal 0.2-2.[address] [facility] Comment on above: Performed By: #### C MADDIE #### [facility] Laboratory [address] [address] [address] Jersey Butcher EO # 0.0 103/ul Normal 0.0-0.7 [facility] Comment on above: Performed By: #### C PHILMAN #### [facility] Laboratory [address] [address] [address] Jersey Butcher Eosinophils/100 WBC (Bld) 0.3 % Critically low 0.9-7.0 [facility] Comment on above: Performed By: #### C BCMAN #### [facility] Laboratory [address] [place] [address] Dr. Jersey Butcher Erythrocyte distribution width (RBC) [Ratio] 11.9 % Normal 11.0-15.0 [facility] Comment on above: Performed By: #### C BCROSIE #### [facility] Laboratory [address] [address] [address] Jersey Butcher Hematocrit (Bld) [Volume fraction] 45.0 % Normal 42.0-54.[address] [facility] Comment on above: Performed By: #### C MADDIE #### [facility] Laboratory [address] [address] [address] Jersey Butcher Hemoglobin (Bld) [Mass/Vol] 15.6 g/dL Normal 14.0-18.[address] [facility] Comment on above: Performed By: #### C BCROSIE #### [facility] [address] [address] [address] Jersey Butcher IG # 0.02 10e3/ul Normal 0.00-0.[address] [facility] Comment on above: Performed By: #### C MADDIE #### [facility] [address] [address] [address] Jersey Butcher IG % 0.2 % Normal 0.0-0.[address] [facility] Comment on above: Performed By: #### C BCROSIE #### [facility] Laboratory [address] [address] [address] Jersey Butcher LYMPH # 0.4 103/ul Critically low 1.2-3.8 [facility] Comment on above: Performed By: #### C MADDIE #### [facility] Laboratory [address] [address] [address] Jersey Butcher Lymphocytes/100 WBC (Bld) 3.6 % Critically low 20.5-60.[address] [facility] Comment on above: Performed By: #### C BCROSIE #### [facility] Laboratory [address] [address] [address] Jersey Butcher MANUAL DIFF REQ NO Normal [facility] Comment on above: Performed By: #### C MADDIE #### [facility] Laboratory [address] [place] [address] Dr. Jersey Butcher MCH (RBC) [Entitic mass] 32.0 pg Normal 25.9-34.[address] [facility] Comment on above: Performed By: #### C MADDIE #### [facility] Laboratory [address] [address] [address] Jersey Butcher MCHC (RBC) [Mass/Vol] 34.7 g/dL Normal 29.9-35.[address] [facility] Comment on above: Performed By: #### C MADDIE #### [facility] Laboratory [address] [address] [address] Jersey Butcher MCV (RBC) [Entitic vol] 92.2 fL Normal 80.0-94.[address] [facility] Comment on above: Performed By: #### C MADDIE #### [facility] [address] [address] [address] Jersey Butcher MONO # 0.8 103/ul Normal 0.3-0.[address] [facility] Comment on above: Performed By: #### C MADDIE #### [facility] [address] [address] [address] Jersey Butcher Monocytes/100 WBC (Bld) 6.9 % Normal 1.7-12.[address] [facility] Comment on above: Performed By: #### C MADDIE #### [facility] [address] [address] [address] Jersey Butcher NEUT # 10.5 103/ul Critically high 1.4-6.5 [facility] Comment on above: Performed By: #### C MADDIE #### [facility] [address] [address] [address] Jersey Butcher Neutrophils/100 WBC (Bld) 88.8 % Critically high 43.0-75.[address] [facility] Comment on above: Performed By: #### C MADDIE #### [facility] [address] [address] [address] Jersey Butcher Platelet mean volume (Bld) [Entitic vol] 10.1 fL Normal 9.5-13.[address] [facility] Comment on above: Performed By: #### C MADDIE #### [facility] [address] [address] [address] Jersey Butcher PLT 273 103/ul Normal 150-450 [facility] Comment on above: Performed By: #### C MADDIE #### [facility] [address] [address] [address] Jersey Butcher RBC 4.88 106/ul Normal 4.70-6.10 [facility] Comment on above: Performed By: #### C MADDIE #### [facility] [address] [place], [place] [address] Dr. Jersey Butcher WBC 11.8 103/ul Critically high 4.0-11.0 [facility] Comment on above: Performed By: #### C MADDIE #### [facility] [address] [place], [place] [address] Dr. Jersey Butcher Covid-19 PCR ([facility])on SARS-CoV-2 (COVID-19) RNA PILI+probe Ql (Unsp spec) Not detected Normal NOT DETECTED The [facility] Comment on above: Result Comment: When diagnostic testing is negative, the possibility of a false negative should be considered in the context of a patient's recent exposures and the presence of clinical signs and symptoms consistent with SARS-CoV-2. This test is not yet approved or cleared by the [place] FDA. When there are no FDA-approved or cleared tests available, and other criteria are met, FDA can make tests available under an emergency access mechanism called an Emergency Use Authorization (EUA). The EUA for this test is supported by the [employer] of Health and Human Service's declaration that circumstances exist to justify the emergency use of in vitro diagnostics for the detection and/or diagnosis of the virus that causes COVID-19. This EUA will remain in effect for the duration of the COVID-19 declaration justifying emergency of IVDs, unless it is terminated or revoked by the FDA (after which the test may no longer be used). Performed By: #### T SH, BNP, HSTROPN, CMP #### [facility] Laboratory [address] [place], [place] [address] Dr. Jersey Butcher INFLUENZA A AND B AGon 05-26 INFLUANEGH SEE BELOW Normal The [facility] Comment on above: Result Comment: Nega tive for Flu A protein angiten. Infection due to Flu A cannot be ruled out. Flu A angiten in the sample may be below the detection limit of the test. Performed By: #### T SH, BNP, HSTROPN, CMP #### [facility] Laboratory [address] [place] [address] Dr. Jersey Butcher [facility] SEE BELOW Normal [facility] Comment on above: Result Comment: Nega tive for Flu B protein antigen. Infection due to Flu B cannot be ruled out. Flu B antigen in the sample may be below the detection limit of the test. Performed By: #### T SH, BNP, HSTROPN, CMP #### [facility] Laboratory [address] [place] [address] Dr. Jersey Butcher INFLUENZA A AG Negative Normal NEGATIVE SEE COMMENT [facility] Comment on above: Performed By: #### T SH, BNP, HSTROPN, CMP #### [facility] Laboratory [address] [place] [address] Dr. Jersey Butcher INFLUENZA B AG Negative Normal NEGATIVE SEE COMMENT [facility] Comment on above: Performed By: #### T SH, BNP, HSTROPN, CMP #### [facility] Laboratory [address] [place] [address] Dr. Jersey Butcher INTERNAL CONTROLS Within Normal Limits Normal Wi thin Normal Limits [facility] Comment on above: Performed By: #### T SH, BNP, HSTROPN, CMP #### [facility] Laboratory [address] [place] [address] Dr. Jersey Butcher LACTATE/LACTIC ACIDon 2021 Lactate [Moles/Vol] 1.8 mmol/L Normal 0.4-1.9 [facility] Comment on above: Performed By: #### T SH, BNP, HSTROPN, CMP #### [facility] Laboratory [address] [place] [address] Dr. Jersey Butcher PROF CHEM 8 (BAS METB)on Anion gap [Moles/Vol] 7.1 mmol/L Normal [facility] Comment on above: Performed By: #### T SH, BNP, HSTROPN, CMP #### [facility] Laboratory [address] [place] [address] Dr. Jersey Butcher Calcium [Mass/Vol] 8.9 mg/dL Normal 8.5-10.1 [facility] Comment on above: Performed By: #### T SH, BNP, HSTROPN, CMP #### [facility] Laboratory [address] [address] [address] Jersey Butcher Chloride [Moles/Vol] 95 mmol/L Critically low 98-[address] [facility] Comment on above: Performed By: #### T SH, BNP, HSTROPN, CMP #### [facility] Laboratory [address] [address] [address] Jersey Butcher CO2 [Moles/Vol] 33.2 mmol/L Critically high 21.0-32.[address] [facility] Comment on above: Performed By: #### T SH, BNP, HSTROPN, CMP #### [facility] Laboratory [address] [place] [address] Dr. Jersey Butcher Creatinine [Mass/Vol] 1.19 mg/dL Normal 0.70-1.[address] [facility] Comment on above: Performed By: #### T SH, BNP, HSTROPN, CMP #### [facility] [address] [address] [address] Jersey Butcher EGFR-AF SWISS >60 Normal >=60 [facility] Comment on above: Performed By: #### T SH, BNP, HSTROPN, CMP #### [facility] [address] [place] [address] Dr. Jersey Butcher EGFR-NON AF SWISS >60 Normal >=[address] [facility] Comment on above: Performed By: #### T SH, BNP, HSTROPN, CMP #### [facility] [address] [address] [address] Jersey Butcher Glucose [Mass/Vol] 135 mg/dL Critically high 74-106 [facility] Comment on above: Performed By: #### T SH, BNP, HSTROPN, CMP #### [facility] [address] [place] [address] Dr. Jersey Butcher Potassium [Moles/Vol] 3.3 mmol/L Critically low 3.5-5.[address] [facility] Comment on above: Performed By: #### T SH, BNP, HSTROPN, CMP #### [facility] [address] [address] [address] Jersey Butcher Sodium [Moles/Vol] 132 mmol/L Critically low 136-145 Th e [facility] Comment on above: Performed By: #### T SH, BNP, HSTROPN, CMP #### [facility] [address] [place] [address] Dr. Jersey Butcher Urea nitrogen [Mass/Vol] 18.0 mg/dL Normal 7.0-18.[address] [facility] Comment on above: Performed By: #### T SH, BNP, HSTROPN, CMP #### [facility] [address] [place] [address] Dr. Jersey Butcher Urea nitrogen/Creatinine [Mass ratio] 15.1 mg/mg Normal The [facility] Comment on above: Performed By: #### T SH, BNP, HSTROPN, CMP #### [facility] [address] [place] [address] Dr. Jersey Butcher RSVon 05-26-2022 RSV AG Negative Normal NEGATIVE [facility] Comment on above: Performed By: #### T SH, BNP, HSTROPN, CMP #### [facility] [address] [place] [address] Dr. Jersey Butcher XR CHEST 1 Von 05-26-2022 XR CHEST 1 V EXAM: XR CHEST 1 V 05/26/2022 12:02 AM EST [id number] CLINICAL STATEMENT: COUGH COMPARISON: 05/20/2022 TECHNIQUE: Single AP radiograph of the chest is submitted. FINDINGS: There is no acute airspace disease. The cardiac silhouette is normal. The costophrenic recesses are sharp. No pneumothorax. The bony elements are unremarkable. IMPRESSION: No acute cardiopulmonary process. FOLLOW-UP: Follow-up as clinically indicated. Electronically authenticated by: MARLENE ARAMBULA Date: 2022-05-26 00:45 Normal The [facility] BNPon 05-20-2022 Natriuretic peptide B (Bld) [Mass/Vol] 137.0 pg/mL Normal <=900.0 [facility] Comment on above: Performed By: #### C VDTBH #### [facility] [address] [address] [address] Jersey Butcher CARDIAC VIDHI 3-6on 2 CK [Catalytic activity/Vol] 139 U/L Normal 39-308 The [facility] Comment on above: Performed By: #### C VDTBH #### [facility] [address] [place] [address] Dr. Jersey Butcher CK.MB [Mass/Vol] 2.85 ng/mL Normal <=3.60 [facility] Comment on above: Performed By: #### C VDTBH #### [facility] [address] [place] [address] Dr. Jeresy Butcher HSTROP 78.1 pg/mL Critically high 4.0-76.1 The [facility] Comment on above: Result Comment: CUT- OFF POINTS HAVE BEEN ESTABLISHED BASED ON THE FOURTH UNIVERSAL DEFINITIONS OF MYOCARDIAL INFARCTION. THE UPPER REFERENCE LIMIT (URL) OF TROPONIN, DEFINED THE 99TH PERCENTILE OF cTnI DISTRIBUTION IN A REFERENCE POPULATION, HAS BEEN CONFIRMED THE DECISION THRESHOLD FOR MO DIAGNOSIS. Performed By: #### C VDTBH #### [facility] [address] [place] [address] Dr. Jersey Butcher CK [Catalytic activity/Vol] 159 U/L Normal 39-308 The [facility] Comment on above: Performed By: #### T SH, BNP, HSTROPN, CMP #### [facility] [address] [address] [address] Jersey Butcher CK.MB [Mass/Vol] 3.45 ng/mL Normal <=3.60 The [facility] Comment on above: Performed By: #### T SH, BNP, HSTROPN, CMP #### [facility] [address] [place] [address] Dr. Jersey Butcher HSTROP 84.8 pg/mL Critically high 4.0-76.1 The [facility] Comment on above: Result Comment: CUT- OFF POINTS HAVE BEEN ESTABLISHED BASED ON THE FOURTH UNIVERSAL DEFINITIONS OF MYOCARDIAL INFARCTION. THE UPPER REFERENCE LIMIT (URL) OF TROPONIN, DEFINED THE 99TH PERCENTILE OF cTnI DISTRIBUTION IN A REFERENCE POPULATION, HAS BEEN CONFIRMED THE DECISION THRESHOLD FOR MO DIAGNOSIS. Performed By: #### T SH, BNP, HSTROPN, CMP #### [facility] [address] [place] [address] Dr. Jersey Butcher CARDIAC VIDHI ADMITon 022 CK [Catalytic activity/Vol] 170 U/L Normal 39-[address] [facility] Comment on above: Performed By: #### C VDTBH #### [facility] [address] [place] [address] Dr. Jersey Butcher CK.MB [Mass/Vol] 2.94 ng/mL Normal <=3.60 The [facility] Comment on above: Performed By: #### C VDTBH #### [facility] [address] [place] [address] Dr. Jersey Butcher HSTROP 82.2 pg/mL Critically high 4.0-76.1 The [facility] Comment on above: Result Comment: CUT- OFF POINTS HAVE BEEN ESTABLISHED BASED ON THE FOURTH UNIVERSAL DEFINITIONS OF MYOCARDIAL INFARCTION. THE UPPER REFERENCE LIMIT (URL) OF TROPONIN, DEFINED THE 99TH PERCENTILE OF cTnI DISTRIBUTION IN A REFERENCE POPULATION, HAS BEEN CONFIRMED THE DECISION THRESHOLD FOR MO DIAGNOSIS. Performed By: #### C VDTBH #### [facility] [address] [place] [address] Dr. Jersey Butcher NILDA 72 ng/mL Normal 16-96 The [facility] Comment on above: Performed By: #### C VDTBH #### [facility] [address] [place] [address] Dr. Jersey Butcher CBC AUTO DIFFon 05-20-2022 BASO # 0.0 103/ul Normal 0.0-0.[address] [facility] Comment on above: Performed By: #### C BC #### [facility] [address] [place] [address] Dr. Jersey Butcher Basophils/100 WBC (Bld) 0.3 % Normal 0.2-2.[address] [facility] Comment on above: Performed By: #### C BC #### [facility] [address] [place] [address] Dr. Jersey Butcher EO # 0.1 103/ul Normal 0.0-0.7 The [facility] Comment on above: Performed By: #### C BC #### [facility] [address] [place] [address] Dr. Jersey Butcher Eosinophils/100 WBC (Bld) 1.8 % Normal 0.9-7.[address] [facility] Comment on above: Performed By: #### C BC #### [facility] [address] [place] [address] Dr. Jersey Butcher Erythrocyte distribution width (RBC) [Ratio] 11.9 % Normal 11.0-15.[address] [facility] Comment on above: Performed By: #### C BC #### [facility] [address] [place] [address] Dr. Jersey Butcher Hematocrit (Bld) [Volume fraction] 43.5 % Normal 42.0-54.[address] [facility] Comment on above: Performed By: #### C BC #### [facility] [address] [place] [address] Dr. Jersey Butcher Hemoglobin (Bld) [Mass/Vol] 15.4 g/dL Normal 14.0-18.0 The [facility] Comment on above: Performed By: #### C BC #### [facility] [address] [place] [address] Dr. Jersey Butcher IG # 0.01 10e3/ul Normal 0.00-0.03 The [facility] Comment on above: Performed By: #### C BC #### [facility] [address] [place] [address] Dr. Jersey Butcher IG % 0.2 % Normal 0.0-0.5 The [facility] Comment on above: Performed By: #### C BC #### [facility] [address] [place] [address] Dr. Jersey Butcher LYMPH # 1.4 103/ul Normal 1.2-3.8 The [facility] Comment on above: Performed By: #### C BC #### [facility] [address] [place] [address] Dr. Jersey Butcher Lymphocytes/100 WBC (Bld) 21.0 % Normal 20.5-60.[address] [facility] Comment on above: Performed By: #### C BC #### [facility] [address] [place] [address] Dr. Jersey Butcher MANUAL DIFF REQ NO Normal The [facility] Comment on above: Performed By: #### C BC #### [facility] [address] [place] [address] Dr. Jersey Butcher MCH (RBC) [Entitic mass] 32.2 pg Normal 25.9-34.[address] [facility] Comment on above: Performed By: #### C BC #### [facility] [address] [place] [address] Dr. Jersey Butcher MCHC (RBC) [Mass/Vol] 35.4 g/dL Critically high 29.9-35.[address] [facility] Comment on above: Performed By: #### C BC #### [facility] [address] [place] [address] Dr. Jersey Butcher MCV (RBC) [Entitic vol] 91.0 fL Normal 80.0-94.[address] [facility] Comment on above: Performed By: #### C BC #### [facility] [address] [place] [address] Dr. Jersey Butcher MONO # 1.0 103/ul Critically high 0.3-0.8 The [facility] Comment on above: Performed By: #### C BC #### [facility] [address] [place] [address] Dr. Jersey Butcher Monocytes/100 WBC (Bld) 14.9 % Critically high 1.7-12.[address] [facility] Comment on above: Performed By: #### C BC #### [facility] [address] [place] [address] Dr. Jersey Butcher NEUT # 4.0 103/ul Normal 1.4-6.5 The [facility] Comment on above: Performed By: #### C BC #### [facility] [address] [place] [address] Dr. Jersey Butcher Neutrophils/100 WBC (Bld) 61.8 % Normal 43.0-75.0 The [facility] Comment on above: Performed By: #### C BC #### [facility] [address] [place] [address] Dr. Jersey Butcher Platelet mean volume (Bld) [Entitic vol] 9.7 fL Normal 9.5-13.[address] [facility] Comment on above: Performed By: #### C BC #### [facility] [address] [place] [address] Dr. Jersey Butcher PLT 246 103/ul Normal 150-450 The [facility] Comment on above: Performed By: #### C BC #### [facility] [address] [place] [address] Dr. Jersey Butcher RBC 4.78 106/ul Normal 4.70-6.10 The [facility] Comment on above: Performed By: #### C BC #### [facility] [address] [place] [address] Dr. Jersey Butcher WBC 6.5 103/ul Normal 4.0-11.0 The [facility] Comment on above: Performed By: #### C BC #### [facility] [address] [place] [address] Dr. Jersey Butcher BASO # 0.0 103/ul Normal 0.0-0.1 The [facility] Comment on above: Performed By: #### C BC #### [facility] [address] [place] [address] Dr. Jersey Butcher Basophils/100 WBC (Bld) 0.3 % Normal 0.2-2.0 The [facility] Comment on above: Performed By: #### C BC #### [facility] [address] [place] [address] Dr. Jersey Butcher EO # 0.1 103/ul Normal 0.0-0.7 The [facility] Comment on above: Performed By: #### C BC #### [facility] [address] [place] [address] Dr. Jersey Butcher Eosinophils/100 WBC (Bld) 1.4 % Normal 0.9-7.0 The [facility] Comment on above: Performed By: #### C BC #### [facility] [address] [place] [address] Dr. Jersey Butcher Erythrocyte distribution width (RBC) [Ratio] 11.9 % Normal 11.0-15.[address] [facility] Comment on above: Performed By: #### C BC #### [facility] [address] [place] [address] Dr. Jersey Butcher Hematocrit (Bld) [Volume fraction] 42.5 % Normal 42.0-54.[address] [facility] Comment on above: Performed By: #### C BC #### [facility] [address] [place] [address] Dr. Jersey Butcher Hemoglobin (Bld) [Mass/Vol] 14.7 g/dL Normal 14.0-18.[address] [facility] Comment on above: Performed By: #### C BC #### [facility] [address] [place] [address] Dr. Jersey Butcher IG # 0.02 10e3/ul Normal 0.00-0.[address] [facility] Comment on above: Performed By: #### C BC #### [facility] [address] [place] [address] Dr. Jersey Butcher IG % 0.3 % Normal 0.0-0.[address] [facility] Comment on above: Performed By: #### C BC #### [facility] [address] [place] [address] Dr. Jersey Butcher LYMPH # 2.0 103/ul Normal 1.2-3.[address] [facility] Comment on above: Performed By: #### C BC #### [facility] [address] [place] [address] Dr. Jersey Butcher Lymphocytes/100 WBC (Bld) 28.9 % Normal 20.5-60.[address] [facility] Comment on above: Performed By: #### C BC #### [facility] [address] [place] [address] Dr. Jersey Butcher MANUAL DIFF REQ NO Normal [facility] Comment on above: Performed By: #### C BC #### [facility] [address] [place] [address] Dr. Jersey Butcher MCH (RBC) [Entitic mass] 31.8 pg Normal 25.9-34.0 The [facility] Comment on above: Performed By: #### C BC #### [facility] [address] [place] [address] Dr. Jersey Butcher MCHC (RBC) [Mass/Vol] 34.6 g/dL Normal 29.9-35.2 The [facility] Comment on above: Performed By: #### C BC #### [facility] [address] [place] [address] Dr. Jersey Butcher MCV (RBC) [Entitic vol] 92.0 fL Normal 80.0-94.[address] [facility] Comment on above: Performed By: #### C BC #### [facility] [address] [place] [address] Dr. Jersey Butcher MONO # 1.1 103/ul Critically high 0.3-0.8 [facility] Comment on above: Performed By: #### C BC #### [facility] [address] [place] [address] Dr. Jersey Butcher Monocytes/100 WBC (Bld) 15.3 % Critically high 1.7-12.[address] [facility] Comment on above: Performed By: #### C BC #### [facility] [address] [place] [address] Dr. Jersey Butcher NEUT # 3.7 103/ul Normal 1.4-6.5 The [facility] Comment on above: Performed By: #### C BC #### [facility] [address] [place] [address] Dr. Jersey Butcher Neutrophils/100 WBC (Bld) 53.8 % Normal 43.0-75.0 The [facility] Comment on above: Performed By: #### C BC #### [facility] [address] [place] [address] Dr. Jersey Butcher Platelet mean volume (Bld) [Entitic vol] 9.9 fL Normal 9.5-13.5 The [facility] Comment on above: Performed By: #### C BC #### [facility] [address] [place] [address] Dr. Jersey Butcher PLT 268 103/ul Normal 150-450 The [facility] Comment on above: Performed By: #### C BC #### [facility] [address] [place] [address] Dr. Jersey Butcher RBC 4.62 106/ul Critically low 4.70-6.10 [facility] Comment on above: Performed By: #### C BC #### [facility] [address] [place] [address] Dr. Jersey Butcher WBC 7.0 103/ul Normal 4.0-11.0 The [facility] Comment on above: Performed By: #### C BC #### [facility] [address] [place] [address] Dr. Jersey Butcher [facility]on SARS-CoV-2 (COVID-19) RNA PILI+probe Ql (Unsp spec) Not detected Normal NOT DETECTED The [facility] Comment on above: Result Comment: When diagnostic testing is negative, the possibility of a false negative should be considered in the context of a patient's recent exposures and the presence of clinical signs and symptoms consistent with SARS-CoV-2. This test is not yet approved or cleared by the [place] FDA. When there are no FDA-approved or cleared tests available, and other criteria are met, FDA can make tests available under an emergency access mechanism called an Emergency Use Authorization (EUA). The EUA for this test is supported by the [place] of Health and Human Service's declaration that circumstances exist to justify the emergency use of in vitro diagnostics for the detection and/or diagnosis of the virus that causes COVID-19. This EUA will remain in effect for the duration of the COVID-19 declaration justifying emergency of IVDs, unless it is terminated or revoked by the FDA (after which the test may no longer be used). Performed By: #### T SH, BNP, HSTROPN, CMP #### [facility] [address] [place] [address] Dr. Jersey Butcher D-DIMERon 05-20-2022 D-DIMER 0.57 mg/L FEU Normal <=0.59 [facility] Comment on above: Performed By: #### D DIM #### [facility] [address] [place] [address] Dr. Jersey Butcher D-DIMER COMMENTS SEE BELOW Normal [facility] Comment on above: Result Comment: Incr eases in D-Dimer concentration observed with thromboembolic events can be variable due to localization, size, and age of the thrombus. Therefore, a thromboembolic event cannot be diagnosed with certainty on the basis of the reference range. D-Dimers may also be elevated for a variety of disorders including: advanced age, , coronary disease, cancer, liver disease, infection, inflammation, hematoma, DIC, trauma, post-surgery, diabetes, thrombolytic or anticoagulant therapy, stress, and generalized hospitalization. Performed By: #### D DIM #### [facility] [address] [place] [address] Dr. Jersey Butcher PROF CHEM 8 (BAS METB)on Anion gap [Moles/Vol] 6.5 mmol/L Normal [facility] Comment on above: Performed By: #### C BCMAN #### [facility] [address] [place] [address] Dr. Jersey Butcher Calcium [Mass/Vol] 8.8 mg/dL Normal 8.5-10.1 [facility] Comment on above: Performed By: #### C BCMAN #### [facility] [address] [place] [address] Dr. Jersey Butcher Chloride [Moles/Vol] 99 mmol/L Normal 98-[address] [facility] Comment on above: Performed By: #### C BCMAN #### [facility] [address] [place] [address] Dr. Jersey Butcher CO2 [Moles/Vol] 35.8 mmol/L Critically high 21.0-32.[address] [facility] Comment on above: Performed By: #### C BCMAN #### [facility] [address] [place] [address] Dr. Jersey Butcher Creatinine [Mass/Vol] 0.84 mg/dL Normal 0.70-1.[address] [facility] Comment on above: Performed By: #### C MADDIE #### [facility] [address] [address] [address] Jersey Butcher EGFR-AF SWISS >60 Normal >=60 [facility] Comment on above: Performed By: #### C MADDIE #### [facility] [address] [place] [address] Dr. Jersey Butcher EGFR-NON AF SWISS >60 Normal >=[address] [facility] Comment on above: Performed By: #### C PHILMAN #### [facility] [address] [place] [address] [address] Jersey Butcher Glucose [Mass/Vol] 108 mg/dL Critically high 74-106 [facility] Comment on above: Performed By: #### C MADDIE #### [facility] [address] [place] [address] [address] Jersey Butcher Potassium [Moles/Vol] 3.3 mmol/L Critically low 3.5-5.[address] [facility] Comment on above: Performed By: #### C MADDIE #### [facility] [address] [place] [address] [address] Jersey Butcher Sodium [Moles/Vol] 138 mmol/L Normal 136-145 [facility] Comment on above: Performed By: #### C MADDIE #### [facility] [address] [place] [address] Dr. Jersey Butcher Urea nitrogen [Mass/Vol] 17.0 mg/dL Normal 7.0-18.[address] [facility] Comment on above: Performed By: #### C MADDIE #### [facility] [address] [place] [address] [address] Jersey Butcher Urea nitrogen/Creatinine [Mass ratio] 20.2 mg/mg Normal [facility] Comment on above: Performed By: #### C MADDIE #### [facility] [address] [place] [address] [address] Jersey Butcher Anion gap [Moles/Vol] 6.8 mmol/L Normal [facility] Comment on above: Performed By: #### C VDTBH #### [facility] [address] [place] [address] [address] Jersey Butcher Calcium [Mass/Vol] 8.8 mg/dL Normal 8.5-10.1 [facility] Comment on above: Performed By: #### C VDTBH #### [facility] [address] [place] [address] [address] Jersey Butcher Chloride [Moles/Vol] 98 mmol/L Normal 98-107 [facility] Comment on above: Performed By: #### C VDTBH #### [facility] [address] [place] [address] Dr. Jersey Butcher CO2 [Moles/Vol] 35.5 mmol/L Critically high 21.0-32.[address] [facility] Comment on above: Performed By: #### C VDTBH #### [facility] [address] [place] [address] Dr. Jersey Butcher Creatinine [Mass/Vol] 0.95 mg/dL Normal 0.70-1.30 [facility] Comment on above: Performed By: #### C VDTBH #### [facility] [address] [place] [address] Dr. Jersey Butcher EGFR-AF SWISS >60 Normal >=60 [facility] Comment on above: Performed By: #### C VDTBH #### [facility] [address] [place] [address] Dr. Jersey Butcher EGFR-NON AF SWISS >60 Normal >=60 [facility] Comment on above: Performed By: #### C VDTBH #### [facility] [address] [place] [address] Dr. Jersey Butcher Glucose [Mass/Vol] 96 mg/dL Normal 74-106 [facility] Comment on above: Performed By: #### C VDTBH #### [facility] [address] [place] [address] Dr. Jersey Butcher Potassium [Moles/Vol] 3.3 mmol/L Critically low 3.5-5.1 [facility] Comment on above: Performed By: #### C VDTBH #### [facility] [address] [place] [address] [address] Jersey Butcher Sodium [Moles/Vol] 137 mmol/L Normal 136-145 [facility] Comment on above: Performed By: #### C VDTBH #### [facility] [address] [place] [address] [address] Jersey Butcher Urea nitrogen [Mass/Vol] 21.0 mg/dL Critically high 7.0-18.[address] [facility] Comment on above: Performed By: #### C VDTBH #### [facility] [address] [place] [address] [address] Jersey Butcher Urea nitrogen/Creatinine [Mass ratio] 22.1 mg/mg Normal [facility] Comment on above: Performed By: #### C VDTBH #### [facility] [address] [place] [address] Dr. Jersey Butcher TROPONIN, HIGH SENSITIVITYon 05-20-2022 HSTROP 56.7 pg/mL Normal 4.0-76.[address] [facility] Comment on above: Result Comment: CUT- OFF POINTS HAVE BEEN ESTABLISHED BASED ON THE FOURTH UNIVERSAL DEFINITIONS OF MYOCARDIAL INFARCTION. THE UPPER REFERENCE LIMIT (URL) OF TROPONIN, DEFINED THE 99TH PERCENTILE OF cTnI DISTRIBUTION IN A REFERENCE POPULATION, HAS BEEN CONFIRMED THE DECISION THRESHOLD FOR MO DIAGNOSIS. Performed By: #### C VDTBH #### [facility] [address] [place] [address] Dr. Jersey Butcher HSTROP 78.4 pg/mL Critically high 4.0-76.1 [facility] Comment on above: Result Comment: CUT- OFF POINTS HAVE BEEN ESTABLISHED BASED ON THE FOURTH UNIVERSAL DEFINITIONS OF MYOCARDIAL INFARCTION. THE UPPER REFERENCE LIMIT (URL) OF TROPONIN, DEFINED THE 99TH PERCENTILE OF cTnI DISTRIBUTION IN A REFERENCE POPULATION, HAS BEEN CONFIRMED THE DECISION THRESHOLD FOR MO DIAGNOSIS. Performed By: #### C BCMAN #### [facility] [address] [place] [address] Dr. Jersey Butcher HSTROP 85.4 pg/mL Critically high 4.0-76.1 [facility] Comment on above: Result Comment: CUT- OFF POINTS HAVE BEEN ESTABLISHED BASED ON THE FOURTH UNIVERSAL DEFINITIONS OF MYOCARDIAL INFARCTION. THE UPPER REFERENCE LIMIT (URL) OF TROPONIN, DEFINED THE 99TH PERCENTILE OF cTnI DISTRIBUTION IN A REFERENCE POPULATION, HAS BEEN CONFIRMED THE DECISION THRESHOLD FOR MO DIAGNOSIS. Performed By: #### C BCMAN #### [facility] [address] [place] [address] Dr. Jersey Butcher XR CHEST 1 Von 05-20-2022 XR CHEST 1 V CHEST X-RAY HISTORY: Chest pain COMPARISON: 02/04/2022 TECHNIQUE: 1 view chest is submitted for review. FINDINGS: The lungs are hyperexpanded. No acute infiltrate or effusion. The cardiac silhouette is enlarged.. Pulmonary vascularity is unremarkable. Osseous structures are within expected limits for patients age. . IMPRESSION: 1. Cardiomegaly. 2. Hyperexpanded lungs which can be seen in the setting of COPD. Electronically authenticated by: SANDEEP MARY Date: 2022-05-20 00:59 Normal The [facility] CBC AUTO DIFFon 02-04-2022 BASO # 0.0 103/ul Normal 0.0-0.1 [facility] Comment on above: Performed By: #### T SH, BNP, HSTROPN, CMP #### [facility] [address] [place] [address] Dr. Jersey Butcher Basophils/100 WBC (Bld) 0.2 % Normal 0.2-2.0 [facility] Comment on above: Performed By: #### T SH, BNP, HSTROPN, CMP #### [facility] [address] [place] [address] [address] Jersey Butcher EO # 0.0 103/ul Normal 0.0-0.7 [facility] Comment on above: Performed By: #### T SH, BNP, HSTROPN, CMP #### [facility] [address] [place] [address] [address] Jersey Butcher Eosinophils/100 WBC (Bld) 0.4 % Critically low 0.9-7.[address] [facility] Comment on above: Performed By: #### T SH, BNP, HSTROPN, CMP #### [facility] [address] [place] [address] Dr. Jersey Butcher Erythrocyte distribution width (RBC) [Ratio] 12.4 % Normal 11.0-15.[address] [facility] Comment on above: Performed By: #### T SH, BNP, HSTROPN, CMP #### [facility] [address] [place] [address] Dr. Jersey Butcher Hematocrit (Bld) [Volume fraction] 41.9 % Critically low 42.0-54.0 [facility] Comment on above: Performed By: #### T SH, BNP, HSTROPN, CMP #### [facility] [address] [place] [address] Dr. Jersey Butcher Hemoglobin (Bld) [Mass/Vol] 14.5 g/dL Normal 14.0-18.[address] [facility] Comment on above: Performed By: #### T SH, BNP, HSTROPN, CMP #### [facility] [address] [place] [address] Dr. Jersey Butcher IG # 0.02 10e3/ul Normal 0.00-0.[address] [facility] Comment on above: Performed By: #### T SH, BNP, HSTROPN, CMP #### [facility] [address] [place] [address] Dr. Jersey Butcher IG % 0.2 % Normal 0.0-0.[address] [facility] Comment on above: Performed By: #### T SH, BNP, HSTROPN, CMP #### [facility] [address] [place] [address] Dr. Jersey Butcher LYMPH # 0.9 103/ul Critically low 1.2-3.8 [facility] Comment on above: Performed By: #### T SH, BNP, HSTROPN, CMP #### [facility] [address] [place] [address] Dr. Jersey Butcher Lymphocytes/100 WBC (Bld) 10.2 % Critically low 20.5-60.[address] [facility] Comment on above: Performed By: #### T SH, BNP, HSTROPN, CMP #### [facility] [address] [place] [address] Dr. Jersey Butcher MANUAL DIFF REQ NO Normal [facility] Comment on above: Performed By: #### T SH, BNP, HSTROPN, CMP #### [facility] [address] [place] [address] Dr. Jersey Butcher MCH (RBC) [Entitic mass] 32.3 pg Normal 25.9-34.0 [facility] Comment on above: Performed By: #### T SH, BNP, HSTROPN, CMP #### [facility] [address] [place] [address] Dr. Jersey Butcher MCHC (RBC) [Mass/Vol] 34.6 g/dL Normal 29.9-35.2 [facility] Comment on above: Performed By: #### T SH, BNP, HSTROPN, CMP #### [facility] [address] [place] [address] Dr. Jersey Butcher MCV (RBC) [Entitic vol] 93.3 fL Normal 80.0-94.[address] [facility] Comment on above: Performed By: #### T SH, BNP, HSTROPN, CMP #### [facility] [address] [place] [address] Dr. Jersey Butcher MONO # 0.8 103/ul Normal 0.3-0.8 [facility] Comment on above: Performed By: #### T SH, BNP, HSTROPN, CMP #### [facility] [address] [place] [address] Dr. Jersey Butcher Monocytes/100 WBC (Bld) 9.4 % Normal 1.7-12.0 [facility] Comment on above: Performed By: #### T SH, BNP, HSTROPN, CMP #### [facility] [address] [place] [address] Dr. Jersey Butcher NEUT # 6.6 103/ul Critically high 1.4-6.5 [facility] Comment on above: Performed By: #### T SH, BNP, HSTROPN, CMP #### [facility] [address] [place] [address] Dr. Jersey Butcher Neutrophils/100 WBC (Bld) 79.6 % Critically high 43.0-75.0 [facility] Comment on above: Performed By: #### T SH, BNP, HSTROPN, CMP #### [facility] [address] [place] [address] Dr. Jersey Butcher Platelet mean volume (Bld) [Entitic vol] 10.1 fL Normal 9.5-13.5 [facility] Comment on above: Performed By: #### T SH, BNP, HSTROPN, CMP #### [facility] [address] [place] [address] Dr. Jersey Butcher PLT 227 103/ul Normal 150-450 [facility] Comment on above: Performed By: #### T SH, BNP, HSTROPN, CMP #### [facility] [address] [place] [address] Dr. Jersey Butcher RBC 4.49 106/ul Critically low 4.70-6.10 [facility] Comment on above: Performed By: #### T SH, BNP, HSTROPN, CMP #### [facility] [address] [place] [address] Dr. Jersey Butcher WBC 8.3 103/ul Normal 4.0-11.0 [facility] Comment on above: Performed By: #### T SH, BNP, HSTROPN, CMP #### [facility] [address] [place] [address] Dr. Jersey Butcher [facility] SARS-CoV-2 (COVID-19) RNA PILI+probe Ql (Unsp spec) Detected Critically abnormal NOT DETECTED The [facility] Comment on above: Result Comment: This test is not yet approved or cleared by the [place] FDA. When there are no FDA-approved or cleared tests available, and other criteria are met, FDA can make tests available under an emergency access mechanism called an Emergency Use Authorization (EUA). The EUA for this test is supported by the [place] of Health and Human Service's declaration that circumstances exist to justify the emergency use of in vitro diagnostics for the detection and/or diagnosis of the virus that causes COVID-19. This EUA will remain in effect for the duration of the COVID-19 declaration justifying emergency of IVDs, unless it is terminated or revoked by the FDA (after which the test may no longer be used). Performed By: #### C VDTB #### [facility] [address] [place] [address] Dr. Jersey Butcher INFLUENZA A AND B AGon 02-04 INFLUENZA A AG Negative Normal NEGATIVE SEE COMMENT [facility] Comment on above: Performed By: #### C MADDIE #### [facility] [address] [place] [address] Dr. Jersey Butcher INFLUENZA B AG Negative Normal NEGATIVE SEE COMMENT [facility] Comment on above: Performed By: #### C MADDIE #### [facility] [address] [place] [address] Dr. Jersey Butcher INTERNAL CONTROLS Within Normal Limits Normal Wi thin Normal Limits [facility] Comment on above: Performed By: #### C MADDIE #### [facility] [address] [place] [address] Dr. Jersey Butcher PROF CHEM 8 (BAS METB)on Anion gap [Moles/Vol] 5.9 mmol/L Normal [facility] Comment on above: Performed By: #### T SH, BNP, HSTROPN, CMP #### [facility] [address] [place] [address] Dr. Jersey Butcher Calcium [Mass/Vol] 8.5 mg/dL Normal 8.5-10.1 [facility] Comment on above: Performed By: #### T SH, BNP, HSTROPN, CMP #### [facility] [address] [place] [address] Dr. Jersey Butcher Chloride [Moles/Vol] 96 mmol/L Critically low 98-107 [facility] Comment on above: Performed By: #### T SH, BNP, HSTROPN, CMP #### [facility] [address] [place] [address] Dr. Jersey Butcher CO2 [Moles/Vol] 33.4 mmol/L Critically high 21.0-32.[address] [facility] Comment on above: Performed By: #### T SH, BNP, HSTROPN, CMP #### [facility] [address] [place] [address] [address] Jersey Butcher Creatinine [Mass/Vol] 1.17 mg/dL Normal 0.70-1.[address] [facility] Comment on above: Performed By: #### T SH, BNP, HSTROPN, CMP #### [facility] [address] [place] [address] Dr. Jersey Butcher EGFR-AF SWISS >60 Normal >=60 [facility] Comment on above: Performed By: #### T SH, BNP, HSTROPN, CMP #### [facility] [address] [place] [address] Dr. Jersey Butcher EGFR-NON AF SWISS >60 Normal >=[address] [facility] Comment on above: Performed By: #### T SH, BNP, HSTROPN, CMP #### [facility] [address] [place] [address] Dr. Jersey Butcher Glucose [Mass/Vol] 141 mg/dL Critically high 74-106 [facility] Comment on above: Performed By: #### T SH, BNP, HSTROPN, CMP #### [facility] [address] [place] [address] Dr. Jersey Butcher Potassium [Moles/Vol] 3.3 mmol/L Critically low 3.5-5.[address] [facility] Comment on above: Performed By: #### T SH, BNP, HSTROPN, CMP #### [facility] [address] [place] [address] Dr. Jersey Butcher Sodium [Moles/Vol] 132 mmol/L Critically low 136-145 [facility] Comment on above: Performed By: #### T SH, BNP, HSTROPN, CMP #### [facility] [address] [place] [address] Dr. Jersey Butcher Urea nitrogen [Mass/Vol] 15.0 mg/dL Normal 7.0-18.[address] [facility] Comment on above: Performed By: #### T SH, BNP, HSTROPN, CMP #### [facility] [address] [place], [place] [address] Dr. Jersey Butcher Urea nitrogen/Creatinine [Mass ratio] 12.8 mg/mg Normal [facility] Comment on above: Performed By: #### T SH, BNP, HSTROPN, CMP #### [facility] [address] [place], [place] [address] Dr. Jersey Butcher XR CHEST 1 Von 02-04-2022 XR CHEST 1 V EXAM: XR CHEST 1 V HISTORY: COUGH COMPARISON: Chest radiograph dated 11/06/2021. TECHNIQUE: One view of the chest was obtained. FINDINGS: The cardiac silhouette is stable in size. There are bibasilar opacities. There is no significant pneumothorax. There are possible small bilateral pleural effusions. No acute osseous abnormality seen. IMPRESSION: 1. Possible small bilateral pleural effusions with hazy bibasilar opacities which could be secondary to overlying soft tissues though atelectasis and/or infection could also be present. Electronically authenticated by: Nery MCKEON Date: 2022-02-04 01:58 Normal The [facility] XR CSPINE 2_3 VIEWSon 2021 XR CSPINE 2_3 VIEWS EXAMINATION: XR CSPI NE 2_3 VIEWS HISTORY: Pain COMPARISON: No relevant comparison available. FINDINGS: BONES: Reversal of normal cervical lordosis. Moderate degenerative spondylosis and facet osteoarthropathy most significant C5-C6. C6 and C7 are not seen on the lateral projection. DISC SPACES: Moderate disc space narrowing C5-C6 PARASPINOUS: Negative. No paraspinous abnormality is seen. OTHER: Negative. IMPRESSION: Moderate degenerative changes C5-C6 with reversal of cervical lordosis Electronically authenticated by: MARCO ANTONIO HALL Date: 2022-01-26 15:50 Normal [facility] Office Visit (Cardiology)on 01-12-2022 Follow-up visit Diagnoses/Problems Assessed Coronary artery disease without angina pectoris (414.00) (I25.10) Normal echocardiogram (V72.85) Hypertension (401.9) (I10) Hyperlipidemia (272.4) (E78.5) Sleep apnea (780.57) (G47.30) Morbid obesity with BMI of 50.0-59.9, adult (278.01,V85.43) (E66.01,Z68.43) Orders Morbid obesity with BMI of 50.0-59.9, adult Healthy Weight Tips; Status:Complete; Done: [id number] SocHx: Former smoker Tobacco Use Screening; Status:Complete; Done: [id number] Patient Instructions Please bring all medicines, vitamins, and herbal supplements with you when you come to the office. Prescriptions will not be filled unless you are compliant with your follow up appointments or have a follow up appointment scheduled as per instruction of your physician. Refills should be requested at the time of your visit PLAN: Through informed decision making process incorporating patients unique circumstances, the following treatment plan will be initiated: 1. Prescription drug management of cardiovascular medication for efficacy, adherence to treatment, side effect assessment and polypharmacy. Current treatment clinically warranted and to continue without modifications. 2. Return for follow-up; in the interim, contact the office if new symptoms arise. Dr. Christian as scheduled Discussed the dynamic nature of coronary artery disease and the importance of seeking medical attention if new symptoms arise. Chief Complaint I am getting weight loss surgery ELYSE LEAHY is being seen for pre-operative clearance. Last evaluated in clinic Dr. Christian Mar 2021. Since that time had uneventful meniscal repair with MACE. Patient presents to [facility] to obtain cardiac risk stratification prior to a weight loss surgery (no details of procedure needed) Surgeon: unknown Planned date: none to date Prior cardiovascular history: 1. Coronary Artery Disease: 2014 Cardiac cath: LAD normal Ramus normal CX CLINICAL AUDIOLOGIST at AV groove RCA patent stent p/m with 40% stenosis at edge of stent October 2019: GXT no ischemic changes at 4.6 METs (did not achieve THR) 2. 2015 Echo LVEF 55% No structural abnormalities 3. Remote PAF without reoccurrence Patient presents to the office today with activity level > 4 METS. Daily activity includes walking 4 miles a night at work Total DASI score: 44.7 Total METs: 8.2 Prior angina: 'just felt odd' Last nitroglycerin usage: none EKG in office: NSR without evidence of ischemia ACC/AHA guidelines: 1. Major clinical markers: -Acute coronary syndrome or MO within 30 days: no -Decompensated heart failure: no -Significant arrhythmia: no -Severe valvular heart disease: no 2. Intermediate clinical markers -History of ischemic heart disease (prior MO, current chest pain secondary to ischemia, use of nitrates or EKG changes): yes -Compensated/prior heart failure: no -Diabetes requiring insulin: no -Renal insufficiency with creatinine greater than 2: no 3. Minor clinical markers: -Age greater than or equal to 70: no -Abnormal EKG: no -Rhythm other than sinus rhythm: no -Low functional capacity: no -Prior CVA: no -Uncontrolled hypertension: no Surgery specific risk: Intermediate risk According to ACC/AHA guidelines, a patient with functional capacity > 4 METs with intermediate risk procedure may proceed as planned without additional cardiovascular testing. JERMAN Revised Cardiac Risk Index: Very low risk with 0.4% MACE Concomitant medication review: No cardiovascular contraindication to stop antiplatelet No prohibitive cardiovascular risk to proceed with planned surgical procedure. History of Present Illness The patient states he has been generally doing well since the last visit. Comorbid Illnesses: hypertension. Symptoms: denies chest pain at rest, denies exertional chest pain, denies dyspnea, denies fatigue, denies exercise intolerance, denies palpitations, denies edema, denies orthopnea, denies dizziness and denies orthostatic dizziness. Associated symptoms: no syncope. His symptoms do not limit his activities. Disease Monitoring: The patient has had a stable weight. Medications: the patient is adherent with his medication regimen. the patient complains of medication side effects. Current Meds Medication NameInstruction Aspirin EC 81 MG Oral Tablet Delayed ReleaseTAKE 1 TABLET DAILY. Atorvastatin Calcium 40 MG Oral TabletTAKE 1 TABLET DAILY at bedtime Dilt-XR 180 MG Oral Capsule Extended Release 24 HourTAKE 1 CAPSULE BY MOUTH EVERY DAY hydroCHLOROthiazide 25 MG Oral TabletTAKE 1 TABLET DAILY DIRECTED. Lisinopril 5 MG Oral TabletTake 1 tablet daily PNV Plus Multivitamin 27-1 MG TABSTAKE 1 TABLET BY MOUTH EVERY DAY Vitamin D3 CAPSTAKE 1 CAPSULE Daily NO MED LIST OR BOTTLES BROUGHT TO OV, MEDS UPDATED VERBALLY Allergies NoKnown No Known Allergies Updated By: Olga Oshea; 01/12/2022 2:40:51 PM Social Hist (more content not included)... Normal [facility] Tobacco Screening.on 022 Adult depression screening assessment No -[facility] PCA Audit 600 DO Work Phone: Tobacco use status CPHS b) No -[facility] PCA Audit 600 DO Work Phone: CBC AUTO DIFFon 01-11-2022 BASO # 0.0 103/ul Normal 0.0-0.1 [facility] Comment on above: Performed By: #### T SH, BNP, HSTROPN, CMP #### [facility] [address] [place] [address] Dr. Jersey Butcher Basophils/100 WBC (Bld) 0.4 % Normal 0.2-2.0 [facility] Comment on above: Performed By: #### T SH, BNP, HSTROPN, CMP #### [facility] [address] [place] [address] Dr. Jersey Butcher EO # 0.1 103/ul Normal 0.0-0.7 [facility] Comment on above: Performed By: #### T SH, BNP, HSTROPN, CMP #### [facility] [address] [place] [address] Dr. Jersey Butcher Eosinophils/100 WBC (Bld) 1.6 % Normal 0.9-7.0 [facility] Comment on above: Performed By: #### T SH, BNP, HSTROPN, CMP #### [facility] [address] [place] [address] Dr. Jersey Butcher Erythrocyte distribution width (RBC) [Ratio] 12.3 % Normal 11.0-15.0 [facility] Comment on above: Performed By: #### T SH, BNP, HSTROPN, CMP #### [facility] [address] [place] [address] Dr. Jersey Butcher Hematocrit (Bld) [Volume fraction] 46.4 % Normal 42.0-54.[address] [facility] Comment on above: Performed By: #### T SH, BNP, HSTROPN, CMP #### [facility] [address] [place] [address] Dr. Jersey Butcher Hemoglobin (Bld) [Mass/Vol] 15.8 g/dL Normal 14.0-18.[address] [facility] Comment on above: Performed By: #### T SH, BNP, HSTROPN, CMP #### [facility] [address] [place] [address] Dr. Jersey Butcher IG # 0.02 10e3/ul Normal 0.00-0.[address] [facility] Comment on above: Performed By: #### T SH, BNP, HSTROPN, CMP #### [facility] [address] [place] [address] Dr. Jersey Butcher IG % 0.3 % Normal 0.0-0.[address] [facility] Comment on above: Performed By: #### T SH, BNP, HSTROPN, CMP #### [facility] [address] [place] [address] Dr. Jersey Butcher LYMPH # 1.5 103/ul Normal 1.2-3.[address] [facility] Comment on above: Performed By: #### T SH, BNP, HSTROPN, CMP #### [facility] [address] [place] [address] Dr. Jersey Butcher Lymphocytes/100 WBC (Bld) 21.7 % Normal 20.5-60.[address] [facility] Comment on above: Performed By: #### T SH, BNP, HSTROPN, CMP #### [facility] [address] [place] [address] Dr. Jersey uBtcher MANUAL DIFF REQ NO Normal [facility] Comment on above: Performed By: #### T SH, BNP, HSTROPN, CMP #### [facility] [address] [place] [address] Dr. Jersey Butcher MCH (RBC) [Entitic mass] 31.5 pg Normal 25.9-34.[address] [facility] Comment on above: Performed By: #### T SH, BNP, HSTROPN, CMP #### [facility] [address] [place] [address] Dr. Jersey Butcher MCHC (RBC) [Mass/Vol] 34.1 g/dL Normal 29.9-35.[address] [facility] Comment on above: Performed By: #### T SH, BNP, HSTROPN, CMP #### [facility] [address] [place] [address] Dr. Jersey Butcher MCV (RBC) [Entitic vol] 92.6 fL Normal 80.0-94.[address] [facility] Comment on above: Performed By: #### T SH, BNP, HSTROPN, CMP #### [facility] [address] [place] [address] Dr. Jersey Butcher MONO # 0.7 103/ul Normal 0.3-0.8 [facility] Comment on above: Performed By: #### T SH, BNP, HSTROPN, CMP #### [facility] [address] [place] [address] Dr. Jersey Butcher Monocytes/100 WBC (Bld) 9.7 % Normal 1.7-12.0 [facility] Comment on above: Performed By: #### T SH, BNP, HSTROPN, CMP #### [facility] [address] [place] [address] Dr. Jersey Butcher NEUT # 4.6 103/ul Normal 1.4-6.[address] [facility] Comment on above: Performed By: #### T SH, BNP, HSTROPN, CMP #### [facility] [address] [place] [address] Dr. Jersey Butcher Neutrophils/100 WBC (Bld) 66.3 % Normal 43.0-75.0 [facility] Comment on above: Performed By: #### T SH, BNP, HSTROPN, CMP #### [facility] [address] [place] [address] Dr. Jersey Butcher Platelet mean volume (Bld) [Entitic vol] 9.6 fL Normal 9.5-13.5 [facility] Comment on above: Performed By: #### T SH, BNP, HSTROPN, CMP #### [facility] [address] [place] [address] Dr. Jersey Butcher PLT 270 103/ul Normal 150-450 [facility] Comment on above: Performed By: #### T SH, BNP, HSTROPN, CMP #### [facility] [address] [place] [address] Dr. Jersey Butcher RBC 5.01 106/ul Normal 4.70-6.[address] [facility] Comment on above: Performed By: #### T SH, BNP, HSTROPN, CMP #### [facility] [address] [place] [address] Dr. Jersey Butcher WBC 6.9 103/ul Normal 4.0-11.[address] [facility] Comment on above: Performed By: #### T SH, BNP, HSTROPN, CMP #### [facility] [address] [address] [address] Jersey Butcher GLYCOHEMOGLOBIN A1Con 2021 ADA RECOMMENDATION SEE BELOW Normal [facility] Comment on above: Result Comment: ADA RECOMMENDED LIMIT 4.0 - 6.0 ADA THERAPEUTIC TARGET < 7.0 ACTION SUGGESTED > 7.0 Performed By: #### T SH, BNP, HSTROPN, CMP #### [facility] [address] [place] [address] Dr. Jersey Butcher Glucose [Mass/Vol] 117 mg/dL Normal [facility] Comment on above: Performed By: #### T SH, BNP, HSTROPN, CMP #### [facility] [address] [place] [address] Dr. Jersey Butcher HbA1c (Bld) [Mass fraction] 5.7 % Normal 4.5-6.[address] [facility] Comment on above: Performed By: #### T SH, BNP, HSTROPN, CMP #### [facility] [address] [place] [address] Dr. Jersey Butcher LIPID PROFILEon 01-11-2022 CHOL-HDL RATIO NORM SEE BELOW Normal [facility] Comment on above: Result Comment: 3.3 - 4.4 LOW RISK 4.4 - 7.1 AVERAGE RISK 7.1 - 11.0 MODERATE RISK >11.0 HIGH RISK Performed By: #### C MADDIE #### [facility] [address] [place] [address] Dr. Jersey Butcher Cholesterol [Mass/Vol] 133 mg/dL Normal <=[address] [facility] Comment on above: Performed By: #### C MADDIE #### [facility] [address] [address] [address] Jersey Butcher Cholesterol in HDL [Mass/Vol] 54 mg/dL Normal 40-[address] [facility] Comment on above: Performed By: #### C MADDIE #### [facility] [address] [id number] [address] Jersey Butcher Cholesterol in LDL [Mass/Vol] 52.0 mg/dL Normal [facility] Comment on above: Performed By: #### C MADDIE #### [facility] [address] [address] [address] Jersey Butcher Cholesterol.total/C holesterol in HDL [Mass ratio] 2.5 {ratio} Normal [facility] Comment on above: Performed By: #### C MADDIE #### [facility] [address] [address] [address] Jersey Butcher HDL NORMAL > or = 60 mg/dl - LO W CARDIOVASCULAR RISK <40 mg/dl - HIGH CARDIOVASCULAR RISK Normal [facility] Comment on above: Performed By: #### C MADDIE #### [facility] [address] [address] [address] Jersey Butcher LDL CALC NORMAL SEE BELOW Normal [facility] Comment on above: Result Comment: <100 mg/dl OPTIMAL 100 - 129 mg/dl NEAR OR ABOVE OPTIMAL 130 - 159 mg/dl BORDERLINE HIGH 160 - 189 mg/dl HIGH >190 mg/dl VERY HIGH Performed By: #### C MADDIE #### [facility] [address] [address] [address] Jersey Butcher Triglyceride [Mass/Vol] 135 mg/dL Normal <=150 [facility] Comment on above: Performed By: #### C MADDIE #### [facility] [address] [address] [address] Jersey Butcher VLDL CALC 27.0 mg/dL Normal [facility] Comment on above: Performed By: #### C PHILMAN #### [facility] [address] [address] [address] Jersey Butcher PROF 14(COMP METB)on 022 Albumin [Mass/Vol] 3.5 g/dL Normal 3.4-5.0 [facility] Comment on above: Performed By: #### C BCROSIE #### [facility] [address] [address] [address] Jersey Butcher Albumin/Globulin [Mass ratio] 1.0 {ratio} Normal [facility] Comment on above: Performed By: #### C BCROSIE #### [facility] [address] [address] [address] Jersey Butcher ALP [Catalytic activity/Vol] 114 U/L Normal 46-[address] [facility] Comment on above: Performed By: #### C BCROSIE #### [facility] [address] [address] [address] Jersey Butcher ALT [Catalytic activity/Vol] 64 U/L Critically high 16-[address] [facility] Comment on above: Performed By: #### C MADDIE #### [facility] [address] [address] [address] Jersey Butcher Anion gap [Moles/Vol] 9.1 mmol/L Normal [facility] Comment on above: Performed By: #### C BCROSIE #### [facility] [address] [address] [address] Jersey Butcher AST [Catalytic activity/Vol] 81 U/L Critically high 15-[address] [facility] Comment on above: Performed By: #### C MADDIE #### [facility] [address] [address] [address] Jersey Butcher Bilirubin [Mass/Vol] 0.9 mg/dL Normal 0.2-1.[address] [facility] Comment on above: Performed By: #### C BCROSIE #### [facility] [address] [address] [address] Jersey Butcher Calcium [Mass/Vol] 9.0 mg/dL Normal 8.5-10.1 [facility] Comment on above: Performed By: #### C BCROSIE #### [facility] [address] [address] [address] Jersey Butcher Chloride [Moles/Vol] 99 mmol/L Normal 98-107 [facility] Comment on above: Performed By: #### C BCMAN #### [facility] [address] [address] [address] Jersey Butcher CO2 [Moles/Vol] 34.9 mmol/L Critically high 21.0-32.[address] [facility] Comment on above: Performed By: #### C BCROSIE #### [facility] [address] [address] [address] Jersey Butcher Creatinine [Mass/Vol] 1.04 mg/dL Normal 0.70-1.30 [facility] Comment on above: Performed By: #### C BCMAN #### [facility] [address] [address] [address] Jersey Butcher EGFR-AF SWISS >60 Normal >=60 [facility] Comment on above: Performed By: #### C BCROSIE #### [facility] [address] [place] [address] Dr. Jersey Butcher EGFR-NON AF SWISS >60 Normal >=[address] [facility] Comment on above: Performed By: #### C BCMAN #### [facility] [address] [place] [address] Dr. Jersey Butcher Globulin (S) [Mass/Vol] 3.5 g/dL Normal [facility] Comment on above: Performed By: #### C BCMAN #### [facility] [address] [place] [address] Dr. Jersey Butcher Glucose [Mass/Vol] 101 mg/dL Normal 74-106 [facility] Comment on above: Performed By: #### C BCMAN #### [facility] [address] [place] [address] Dr. Jersey Butcher Potassium [Moles/Vol] 4.0 mmol/L Normal 3.5-5.1 [facility] Comment on above: Performed By: #### C BCMAN #### [facility] [address] [place] [address] Dr. Jersey Butcher Protein [Mass/Vol] 7.0 g/dL Normal 6.4-8.2 [facility] Comment on above: Performed By: #### C BCMAN #### [facility] [address] [place], [place] [address] Dr. Jersey Butcher Sodium [Moles/Vol] 139 mmol/L Normal 136-145 [facility] Comment on above: Performed By: #### C MADDIE #### [facility] [address] [place], [place] [address] Dr. Jersey Butcher Urea nitrogen [Mass/Vol] 17.0 mg/dL Normal 7.0-18.[address] [facility] Comment on above: Performed By: #### C MADDIE #### [facility] [address] [place], [place] [address] Dr. Jersey Butcher Urea nitrogen/Creatinine [Mass ratio] 16.3 mg/mg Normal [facility] Comment on above: Performed By: #### C MADDIE #### [facility] [address] [address] [address] LSPINE WO CONon 2 CT LSPINE WO CON EXAM: CT LSPINE WO C ON HISTORY: The patient is a 56-year-old male with low back pain and right leg radiculopathy after lifting injury. COMPARISON: Radiographs from 01/28/2016. TECHNIQUE: CT images were obtained through the lumbar spine without intravenous contrast and reformatted in 2 dimensions. Dose reduction techniques were achieved by using automated exposure control and/or adjustment of mA and/or kV according to patient size and/or use of iterative reconstruction technique. FINDINGS: The axial images demonstrate no fractures or cortical discontinuities throughout the lumbar spine. The sacroiliac joints are maintained. The coronal and sagittal reformatted images demonstrate no fractures or loss of vertebral body height throughout the lumbar spine. There is no disc space narrowing or malalignment. The soft tissue images demonstrate no evidence of sizable disc herniations or central canal stenosis throughout the lumbar spine. IMPRESSION: This is a negative CT scan of the lumbar spine with no fractures or loss of vertebral body height. Electronically authenticated by: DONG BUNDY Date: 2021-12-10 22:56 Normal [facility] CBC AUTO DIFFon 11-07-2021 BASO # 0.0 103/ul Normal 0.0-0.[address] [facility] Comment on above: Performed By: #### T SH, BNP, HSTROPN, CMP #### [facility] [address] [place] [address] Dr. Jersey Butcher Basophils/100 WBC (Bld) 0.4 % Normal 0.2-2.0 [facility] Comment on above: Performed By: #### T SH, BNP, HSTROPN, CMP #### [facility] [address] [place] [address] Dr. Jersey Butcher EO # 0.1 103/ul Normal 0.0-0.7 [facility] Comment on above: Performed By: #### T SH, BNP, HSTROPN, CMP #### [facility] [address] [place] [address] Dr. Jersey Butcher Eosinophils/100 WBC (Bld) 1.1 % Normal 0.9-7.[address] [facility] Comment on above: Performed By: #### T SH, BNP, HSTROPN, CMP #### [facility] [address] [place] [address] Dr. Jersey Butcher Erythrocyte distribution width (RBC) [Ratio] 12.3 % Normal 11.0-15.[address] [facility] Comment on above: Performed By: #### T SH, BNP, HSTROPN, CMP #### [facility] [address] [place] [address] Dr. Jersey Butcher Hematocrit (Bld) [Volume fraction] 44.9 % Normal 42.0-54.0 [facility] Comment on above: Performed By: #### T SH, BNP, HSTROPN, CMP #### [facility] [address] [place] [address] Dr. Jersey Butcher Hemoglobin (Bld) [Mass/Vol] 15.2 g/dL Normal 14.0-18.0 [facility] Comment on above: Performed By: #### T SH, BNP, HSTROPN, CMP #### [facility] [address] [place] [address] Dr. Jersey Butcher IG # 0.02 10e3/ul Normal 0.00-0.03 [facility] Comment on above: Performed By: #### T SH, BNP, HSTROPN, CMP #### [facility] [address] [place] [address] Dr. Jersey Butcher IG % 0.2 % Normal 0.0-0.[address] [facility] Comment on above: Performed By: #### T SH, BNP, HSTROPN, CMP #### [facility] [address] [place] [address] Dr. Jersey Butcher LYMPH # 1.8 103/ul Normal 1.2-3.8 [facility] Comment on above: Performed By: #### T SH, BNP, HSTROPN, CMP #### [facility] [address] [place] [address] Dr. Jersey Butcher Lymphocytes/100 WBC (Bld) 22.5 % Normal 20.5-60.[address] [facility] Comment on above: Performed By: #### T SH, BNP, HSTROPN, CMP #### [facility] [address] [place] [address] Dr. Jersey Butcher MANUAL DIFF REQ NO Normal [facility] Comment on above: Performed By: #### T SH, BNP, HSTROPN, CMP #### [facility] [address] [place] [address] Dr. Jersey Butcher MCH (RBC) [Entitic mass] 31.6 pg Normal 25.9-34.[address] [facility] Comment on above: Performed By: #### T SH, BNP, HSTROPN, CMP #### [facility] [address] [place] [address] Dr. Jersey Butcher MCHC (RBC) [Mass/Vol] 33.9 g/dL Normal 29.9-35.[address] [facility] Comment on above: Performed By: #### T SH, BNP, HSTROPN, CMP #### [facility] [address] [place] [address] Dr. Jersey Butcher MCV (RBC) [Entitic vol] 93.3 fL Normal 80.0-94.[address] [facility] Comment on above: Performed By: #### T SH, BNP, HSTROPN, CMP #### [facility] [address] [place] [address] Dr. Jersey Butcher MONO # 0.9 103/ul Critically high 0.3-0.8 [facility] Comment on above: Performed By: #### T SH, BNP, HSTROPN, CMP #### [facility] [address] [place] [address] Dr. Jersey Butcher Monocytes/100 WBC (Bld) 11.1 % Normal 1.7-12.0 The [facility] Comment on above: Performed By: #### T SH, BNP, HSTROPN, CMP #### [facility] [address] [place] [address] Dr. Jersey Butcher NEUT # 5.2 103/ul Normal 1.4-6.5 The [facility] Comment on above: Performed By: #### T SH, BNP, HSTROPN, CMP #### [facility] [address] [place] [address] Dr. Jersey Butcher Neutrophils/100 WBC (Bld) 64.7 % Normal 43.0-75.0 The [facility] Comment on above: Performed By: #### T SH, BNP, HSTROPN, CMP #### [facility] [address] [place] [address] Dr. Jersey Butcher Platelet mean volume (Bld) [Entitic vol] 10.1 fL Normal 9.5-13.5 The [facility] Comment on above: Performed By: #### T SH, BNP, HSTROPN, CMP #### [facility] [address] [place] [address] Dr. Jersey Butcher PLT 265 103/ul Normal 150-450 The [facility] Comment on above: Performed By: #### T SH, BNP, HSTROPN, CMP #### [facility] [address] [place] [address] Dr. Jersey Butcher RBC 4.81 106/ul Normal 4.70-6.10 The [facility] Comment on above: Performed By: #### T SH, BNP, HSTROPN, CMP #### [facility] [address] [place], [place] [id number] Dr. Jersey Butcher WBC 8.1 103/ul Normal 4.0-11.0 The [facility] Comment on above: Performed By: #### T SH, BNP, HSTROPN, CMP #### [facility] [address] [place], [place] [address] CHEST WO CONon 11-07-2021 CT CHEST WO CON EXAMINATION:CT CHEST WO CON INDICATION:CHEST PAIN, UNSPECIFIED, right anterior lower rib pain after hitting chest on truck. COMPARISON:08/14/2020 TECHNIQUE:Thin section transaxial slices were acquired through the chest. Coronal and sagittal reconstructed images were reviewed. IV CONTRAST:Without FINDINGS: LUNGS: There is a 6 mm size subpleural nodule in the right lower lobe. This was present on the previous study and has there is a stable tiny pleural-based nodule in the lingula measuring 3 mm. There is a stable left lower lobe pulmonary nodule measuring 3 mm. There is increased subpleural interstitial airspace disease in the right lower lobe. This was present to a certain degree on the previous study however is worse today and could represent progression of interstitial lung disease. There is peripheral linear airspace disease in the left lower lobe not significantly changed. Increased in size at which time it measured 4 mm. There is a calcified granuloma in the medial right lower lobe. PLEURAL CAVITY: No pleural effusion. MEDIASTINUM: Trachea and central airways are patent. HEART: Mild coronary artery calcifications are present. VASCULAR:The thoracic aorta is normal in caliber. LYMPH NODES:No suspicious lymphadenopathy. CHEST WALL/AXILLA: Chest wall and axilla are unremarkable. BONES: No definitive acute fracture is appreciated in the bony thorax, specifically in the right rib cage given the clinical history. VISUALIZED UPPER ABDOMEN: There is diffuse hepatic steatosis. There is a calcification in the lateral liver which may represent a granuloma. There is a cyst in the medial left kidney. IMPRESSION: 1. No acute fracture of the bony pelvis specifically within the right rib cage. 2. Multiple pulmonary nodules. A subpleural right lower lobe nodule has increased slightly in size since the previous chest CT. Six-month follow-up is recommended to document stability. 3. Increased interstitial densities in the right lower lobe could represent scarring. Electronically authenticated by: EUSEBIA VICTORIA Date: 2021-11-06 23:56 Normal The [facility] PROF 14(COMP METB)on 022 Albumin [Mass/Vol] 3.5 g/dL Normal 3.4-5.0 [facility] Comment on above: Performed By: #### C VDTBH #### [facility] [address] [place] [address] [address] Jersey Butcher Albumin/Globulin [Mass ratio] 1.0 {ratio} Normal [facility] Comment on above: Performed By: #### C VDTBH #### [facility] [address] [place] [address] [address] Jersey Butcher ALP [Catalytic activity/Vol] 117 U/L Critically high 46-[address] [facility] Comment on above: Performed By: #### C VDTBH #### [facility] [address] [place] [address] Dr. Jersey Butcher ALT [Catalytic activity/Vol] 39 U/L Normal 16-[address] [facility] Comment on above: Performed By: #### C VDTBH #### [facility] [address] [place] [address] [address] Jersey Butcher Anion gap [Moles/Vol] 9.3 mmol/L Normal [facility] Comment on above: Performed By: #### C VDTBH #### [facility] [address] [place] [address] Dr. Jersey Butcher AST [Catalytic activity/Vol] 20 U/L Normal 15-[address] [facility] Comment on above: Performed By: #### C VDTBH #### [facility] [address] [address] [address] Jersey Butcher Bilirubin [Mass/Vol] 0.4 mg/dL Normal 0.2-1.[address] [facility] Comment on above: Performed By: #### C VDTBH #### [facility] [address] [address] [address] Jersey Butcher Calcium [Mass/Vol] 9.1 mg/dL Normal 8.5-10.1 [facility] Comment on above: Performed By: #### C VDTBH #### [facility] [address] [address] [address] Jersey Butcher Chloride [Moles/Vol] 99 mmol/L Normal 98-107 The [facility] Comment on above: Performed By: #### C VDTBH #### [facility] [address] [place] [address] Dr. Jersey Butcher CO2 [Moles/Vol] 33.2 mmol/L Critically high 21.0-32.[address] [facility] Comment on above: Performed By: #### C VDTBH #### [facility] [address] [place] [address] Dr. Jersey Butcher Creatinine [Mass/Vol] 1.21 mg/dL Normal 0.70-1.30 The [facility] Comment on above: Performed By: #### C VDTBH #### [facility] [address] [place] [address] Dr. Jersey Butcher EGFR-AF SWISS >60 Normal >=60 [facility] Comment on above: Performed By: #### C VDTBH #### [facility] [address] [place] [address] Dr. Jersey Butcher EGFR-NON AF SWISS >60 Normal >=[address] [facility] Comment on above: Performed By: #### C VDTBH #### [facility] [address] [place] [address] Dr. Jersey Butcher Globulin (S) [Mass/Vol] 3.5 g/dL Normal [facility] Comment on above: Performed By: #### C VDTBH #### [facility] [address] [address] [address] Jersey Butcher Glucose [Mass/Vol] 102 mg/dL Normal 74-106 [facility] Comment on above: Performed By: #### C VDTBH #### [facility] [address] [place] [address] Dr. Jersey Butcher Potassium [Moles/Vol] 3.5 mmol/L Normal 3.5-5.1 The [facility] Comment on above: Performed By: #### C VDTBH #### [facility] [address] [place] [address] Dr. Jersey Butcher Protein [Mass/Vol] 7.0 g/dL Normal 6.4-8.2 [facility] Comment on above: Performed By: #### C VDTBH #### [facility] [address] [address] [address] Jersey Butcher Sodium [Moles/Vol] 138 mmol/L Normal 136-145 [facility] Comment on above: Performed By: #### C VDTBH #### [facility] [address] [address] [address] Jersey Butcher Urea nitrogen [Mass/Vol] 19.0 mg/dL Critically high 7.0-18.[address] [facility] Comment on above: Performed By: #### C VDTBH #### [facility] [address] [place] [address] Dr. Jersey Butcher Urea nitrogen/Creatinine [Mass ratio] 15.7 mg/mg Normal [facility] Comment on above: Performed By: #### C VDTBH #### [facility] [address] [place] [address] Dr. Jersey Butcher XR CHEST 1 Von 11-07-2021 XR CHEST 1 V EXAMINATION: XR CHES T 1 V HISTORY: Anterior rib pain after hitting chest on dashboard of truck COMPARISON: Chest x-ray 08/13/2020 TECHNIQUE: Portable chest FINDINGS: The lung parenchyma is free of consolidation or infiltrate. No pneumothorax or pleural effusion. The cardiac, mediastinal and hilar contours are normal. The visualized osseous structures exhibit no gross abnormality. IMPRESSION: No acute cardiopulmonary abnormality. Electronically authenticated by: MARCO ANTONIO FRIEDMAN Date: 2021-11-06 22:[address] [facility] IO EKG Electrocardiogram- 12 [place] 04-11-2021 IO EKG Electrocardiogram- 12 Lead See Scanned Document [facility] [employer] 600 DO Work Phone: Tobacco Screening.on 021 Fall risk assessment a) No falls within the last year [facility] [employer] Audit 600 DO Work Phone: Tobacco use status CPHS b) No [facility] Sanako DO Work Phone: Vital Signs Date Time Vital Sign Value Performing Clinician Facility 04-13-2023 12:07-0400 Body height 172.7 cm Justyn Mondragon MD Work Phone: [facility] 04-13-2023 12:07-0400 Body mass index (BMI) [Ratio] 54.74 kg/m2 Justyn Mondragon MD Work Phone: [facility] 04-13-2023 12:07-0400 Body weight 163.29 kg Justyn Mondragon MD Work Phone: [facility] 04-13-2023 12:07-0400 Diastolic blood pressure 80 mm[Hg] Justyn Mondragon MD Work Phone: [facility] 04-13-2023 12:07-0400 Systolic blood pressure 134 mm[Hg] Justyn Mondragon MD Work Phone: [facility] 10-02-2022 11:00-0400 52 1 Eusebia Terrell Work Phone: [facility] 305 DO Work Phone: Comment on above: [id number] 07-19-2022 10:33-0500 Body height 173.99 cm Eusebia Terrell Work Phone: [facility] 305 DO Work Phone: 07-19-2022 10:33-0500 Body mass index (BMI) [Ratio] 50.68 kg/m2 Eusebia Terrell Work Phone: [facility] 305 DO Work Phone: 07-19-2022 10:33-0500 Body surface area Derived from formula 2.57 m2 Eusebia Terrell Work Phone: [facility] 305 DO Work Phone: 07-19-2022 10:33-0500 Body weight 153.41 kg Eusebia Rondon Aichholz Work Phone: [facility] 305 DO Work Phone: 07-19-2022 10:33-0500 Diastolic blood pressure 82 mm[Hg] Eusebia Rondon Aichholz Work Phone: [facility] 305 DO Work Phone: 07-19-2022 10:33-0500 Heart rate 64 /min Eusebia Rondon Aichholz Work Phone: [facility] 305 DO Work Phone: 07-19-2022 10:33-0500 Systolic blood pressure 132 mm[Hg] Eusebia Rondon Aichholz Work Phone: [facility] 305 DO Work Phone: 01-12-2022 14:42-0400 Body height 172.72 cm Eusebia Rondon Aichholz Work Phone: [facility] 600 DO Work Phone: 01-12-2022 14:42-0400 Body mass index (BMI) [Ratio] 51.7 kg/m2 Eusebia Rondon Aichholz Work Phone: [facility] 600 DO Work Phone: 01-12-2022 14:42-0400 Body surface area Derived from formula 2.56 m2 Eusebia Rondon Aichholz Work Phone: [facility] 600 DO Work Phone: 01-12-2022 14:42-0400 Body weight 154.22 kg Eusebia Rondon Aichholz Work Phone: [facility] 600 DO Work Phone: 01-12-2022 14:42-0400 Diastolic blood pressure 80 mm[Hg] Eusebia Rondon Aichholz Work Phone: [facility] [employer] 600 DO Work Phone: 01-12-2022 14:42-0400 Heart rate 66 /min Eusebia Quintanillahholz Work Phone: [facility] 600 DO Work Phone: 01-12-2022 14:42-0400 Systolic blood pressure 136 mm[Hg] Eusebia Rondon Aichholz Work Phone: [facility] 600 DO Work Phone: 04-11-2021 12:45-0400 Body height 172.72 cm Eusebia Rondon Aichholz Work Phone: [facility] 600 DO Work Phone: 04-11-2021 12:45-0400 Body mass index (BMI) [Ratio] 53.52 kg/m2 Eusebia Quintanillahholz Work Phone: [facility] 600 DO Work Phone: 04-11-2021 12:45-0400 Body surface area Derived from formula 2.6 m2 Eusebia Rondon Aichholz Work Phone: [facility] 600 DO Work Phone: 04-11-2021 12:45-0400 Body weight 159.67 kg Eusebia Quintanillahholz Work Phone: [facility] 600 DO Work Phone: 04-11-2021 12:45-0400 Diastolic blood pressure 78 mm[Hg] Eusebia Rondon Aichholz Work Phone: [facility] 600 DO Work Phone: 04-11-2021 12:45-0400 Heart rate 74 /min Eusebia Rondon Aichholz Work Phone: [facility] 600 DO Work Phone: 04-11-2021 12:45-0400 Systolic blood pressure 124 mm[Hg] Eusebia Rondon Xander Work Phone: [facility] 600 DO Work Phone: Encounters Encounter Date Encounter Type Care Provider Facility Start: 06-12-2023 End: 06-12-2023 ambulatory EUSEBIA XANDER Not Available Start: 06-06-2023 End: 06-06-2023 ambulatory EUSEBIA XANDER Not Available Start: 04-13-2023 End: 04-13-2023 [facility] Start: 04-13-2023 End: 04-13-2023 Office outpatient visit 25 minutes Justyn Mondragon MD Work Phone: [facility] Comment on above: CAD S/P percutaneous coronary angioplasty; Paroxysmal atrial fibrillation (CMS/HCC); Old MO (myocardial infarction); Mixed hyperlipidemia; Primary hypertension; Obstructive sleep apnea syndrome; Morbid obesity with BMI of 50.0-59.9, adult (CMS/HCC); Former smoker; Status post ablation of incompetent vein using laser Start: 10-26-2022 End: 10-26-2022 ambulatory NATALIA TERRELL Facility: Start: 10-05-2022 Chart Update Eusebia Rondon Keyona lz Work Phone: [facility] 305 DO Work Phone: Start: 10-03-2022 Chart Update Eusebia Rondon Keyona lz Work Phone: [facility] 305 DO Work Phone: Start: 10-03-[address] Eusebia Rondon Xander F acility:[id number] Start: 10-02-2022 amb[address] Mrs. Eusebia Rondon Xander F acility:9844 Start: 09-15-2022 Telephone encounter Eusebia Rondon Daphne wayne Work Phone: [facility] 305 DO Work Phone: Start: 09-15-2022 End: 09-16-[address] DOCTOR HERNANDEZ Facility:H1 Start: 08-27-2022 End: 08-27-2022 ambulatory TED DE LUNA . Facility:H1 Start: 08-25-2022 Telephone encounter Eusebia wayne Work Phone: [facility] [place] 305 DO Work Phone: Start: 08-24-2022 End: 08-25-[address] KESHWAN PECK Facility:H1 Start: 07-27-2022 STRESS KARIS, Provider : [address] NUCLEAR ,[id number], Status: Pen, Time: 2:00 PM Eusebia Terrell Work Phone: [facility] Work Phone: Start: 07-19-2022 Office outpatient vi sit 25 minutes Eusebiamisha Terrell [facility] DO Work Phone: Start: 07-19-2022 ambulatory JUSTYN MONDRAGON Facility: Start: 06-01-2022 End: 06-04-2022 ambulatory SWAPNA GUZMÁN Facility:[facility]1 Start: 05-29-2022 End: 05-29-2022 ambulatory REHAB DIRECTOR EUSEBIA TERRELL Facility:H1 Start: 05-26-2022 End: 05-26-2022 ambulatory ROBERTA PERRIN Facility:[facility]1 Start: 05-20-2022 End: 05-20-[address] SALVADOR WALTERS . Facility:[facility]1 Start: 04-03-[address] Madison Christian Facility: Start: 02-04-2022 End: 02-04-2022 ambulatory NATALIA EUSEBIAMisha TERRELL Facility:H1 Start: 01-26-2022 End: 01-26-2022 ambulatory REHAB DIRECTOR EUSEBIA XANDER Facility:[facility]1 Start: 01-12-2022 Office outpatient vi sit 25 minutes Eusebia Nela Terrell Work Phone: [facility] 250 DO Work Phone: Start: 01-12-2022 Patient encounter procedure Eusebia Rondon Socorrotommymaeganz Work Phone: [facility] 600 DO Work Phone: Start: 01-12-2022 ambulatory NATALIA Parsons y: Start: 01-11-2022 End: 01-12-2022 ambulatory REHAB DIRECTOR EUSEBIA AICTommyHOLZ Facility:H1 Start: 01-08-2022 End: 01-08-2022 ambulatory REHAB DIRECTOR EUSEBIA AICHHOLZ Facility:H1 Start: 12-10-2021 End: 12-11-2021 ambulatory REHAB DIRECTOR EUSEBIA AICHHOLZ Facility:H1 Start: 11-06-2021 End: 11-07-2021 ambulatory REHAB DIRECTOR EUSEBIA AICHHOLZ Facility:H1 Start: 08-02-[address] Madison Christian Facility:[id number] Start: 07-18-2021 Telephone encounter Eusebia Rondon Daphne santanaholz Work Phone: [facility] 250 DO Work Phone: Start: 05-09-2021 Rx Renewal Eusebia Rondon Socorrohho lz Work Phone: [facility] 250 DO Work Phone: Start: 04-11-2021 Office outpatient vi sit 25 minutes Eusebia Rondon Socorrohholz Work Phone: [facility] 600 DO Work Phone: Start: 04-04-2021 Rx Renewal Eusebia Quintanillahho lz Work Phone: [facility] 250 DO Work Phone: Start: 08-23-2017 Ambulatory MADISON Escobar lity:1532 Echocardiogram normal Eusebia Nela Serna chholz Work Phone: [facility] 600 DO Work Phone: Preoperative state Eusebia Nela Aichh olz Work Phone: [facility] 600 DO Work Phone: Procedures Date Procedure Procedure Detail Performing Clinician Start: 04-12-2023 End: 04-13-2023 History of percutaneous transluminal coronary angioplasty History of PTCA Justyn Mondragon MD Work Phone: Start: 01-11-2022 PSA screening REHAB DIRECTOR EUSEBIA XANDER Comment on above: Performed By: #### T SH, BNP, HSTROPN, CMP #### [facility] [address] [address] [address] Jersey Butcher Cardiac catheterization Eusebia Rondon Socorrotommyholz Work Phone: Cholecystectomy Eusebia Law gallo Work Phone: Comment on above: [id number], Phillip; Colonoscopy Eusebia Lawmaegan z Work Phone: Comment on above: [id number] Haley; History of percutane ous transluminal coronary angioplasty History of PTCA Eusebia Rondon Socorrohgallo Work Phone: Operative procedure on knee Eusebia Rondon Socorrotommygallo Work Phone: Percutaneous translu china coronary angioplasty Eusebia Quintanillahholz Work Phone: Plan of Treatment Date Care Activity Detail Author Start: 10-17-2023 End: 10-17-2023 Patient encounter procedure 10/17/2023 10:00 AM EDT Office Visit [facility] [address] [phone] Justyn Mondragon MD [address] [facility] [address], [address] [address] [facility] Start: 07-19-2023 FUV, Provider: Justyn Mondragon, Status: Pen, Time: 1:00 PM FUV, Provider: Justyn Mondragon, Status: Pen, Time: 1:00 PM [facility] [place] 305 DO Work Phone: Start: 07-19-2023 End: 07-19-2023 Patient encounter procedure 07/19/2023 1:00 PM EST Office Visit [facility] [address] [id number] Justyn Mondragon MD [address] [facility] [address], [address] [address] [facility] Start: 02-16-2023 Influenza vaccination Influenza Vaccine (#1) [facility] Start: 10-03-2022 REST ONLY, Provider: DAYANNA HHVI NUCLEAR 01,[id number], Status: Pen, Time: 10:00 AM REST ONLY, Provider: DAYANNA HHVI NUCLEAR 01,[id number], Status: Pen, Time: 10:00 AM [facility] [place] 305 DO Work Phone: Start: 10-02-2022 STRESSNUC2, Provider: DAYANNA HHVI NUCLEAR 01,[id number], Status: Pen, Time: 11:00 AM STRESSNUC2, Provider: DAYANNA HHVI NUCLEAR 01,[id number], Status: Pen, Time: 11:00 AM [facility] [place] 305 DO Work Phone: Start: 07-27-2022 STRESS KARIS, Provider: [id number] [facility]VI NUCLEAR 01,[id number], Status: Pen, Time: 2:00 PM STRESS KARIS, Provider: [id number] [facility]VI NUCLEAR 01,[id number], Status: Pen, Time: 2:00 PM [facility] [place] 305 DO Work Phone: Start: 03-29-2022 FUV, Provider: Madison Christian, Status: Pen, Time: 1:30 PM FUV, Provider: Madison Christian, Status: Pen, Time: 1:30 PM [facility] 600 DO Work Phone: Start: 07-05-2021 FUV, Provider: Madison Christian, Status: Pen, Time: 3:20 PM FUV, Provider: Madison Christian, Status: Pen, Time: 3:20 PM [facility] 250 DO Work Phone: Start: 2013 Zoster Vaccines (1 of 2) Zoster Vaccines (1 of 2) [facility] Start: 1985 DTaP/Tdap/Td Vaccines (1 - Tdap) DTaP/Tdap/Td Vaccines (1 - Tdap) [facility] Start: 1982 Hepatitis A Vaccines (1 of 2 - Risk 2-dose series) Hepatitis A Vaccines (1 of 2 - Risk 2-dose series) [facility] Start: 1981 Diabetes mellitus screening Diabetes Screening [facility] Start: 1981 Hepatitis C screening Hepatitis C Screening [facility] Start: 1969 Pneumococcal Vaccine: Pediatrics (0 to 5 Years) and At-Risk Patients (6 to 64 Years) (1 - PCV) Pneumococcal Vaccine: Pediatrics (0 to 5 Years) and At-Risk Patients (6 to 64 Years) (1 - PCV) [facility] Start: 1964 MMR Vaccines (1 of 1 - Standard series) MMR Vaccines (1 of 1 - Standard series) [facility] Start: 1963 COVID-19 Vaccine (#1) COVID-19 Vaccine (#1) [facility] Start: 1963 Hepatitis B Vaccines (1 of 3 - 3-dose series) Hepatitis B Vaccines (1 of 3 - 3-dose series) [facility] Start: 1963 HIV screening HIV Screening [facility] Start: 1963 Lipid panel Lipid Panel [facility] Start: 1963 Screening for malignant neoplasm of colon [facility] Start: 1963 Yearly Adult Physical Yearly Adult Physical [facility] Payers Date Payer Category Payer Unknown 2023 Unknown [id number] 2022 Unknown 1 1965 Unknown [id number] 1963 Unknown [id number] 840.1.230345.3.579.2.356 1965 Unknown [id number] 2.16. 840.1.016217.3.579.2.356 1965 Unknown [id number] 2.16. 840.1.975100.3.579.2.356 1963 Unknown [id number] 2.16.84 0.1.742138.3.579.2.593 1963 Unknown [id number] 2.16.84 0.1.924459.3.579.2.593 1963 Unknown [id number] 2.16.84 0.1.305938.3.579.2.593 1963 Unknown [id number] 2.16.84 0.1.042449.3.579.2.593 1963 Unknown [id number] 2.16.84 0.1.560667.3.579.2.593 1963 Unknown [id number] 2.16.84 0.1.480451.3.579.2.593 1963 Unknown [id number] 2.16.84 0.1.435855.3.579.2.593 1963 Unknown [id number] 2.16.84 0.1.323287.3.579.2.593 1963 Unknown [id number] 2.16.84 0.1.697621.3.579.2.593 1963 Unknown [id number] 2.16.84 0.1.643474.3.579.2.593 1963 Unknown [id number] 2.16.84 0.1.341010.3.579.2.593 1963 Unknown [id number] 2.16.84 0.1.224520.3.579.2.593 1963 Unknown [id number] 2.16.84 0.1.093542.3.579.2.593 1963 Unknown [id number] 2.16.84 0.1.915231.3.579.2.593 1963 Unknown [id number] 2.16.8 40.1.541377.3.579.2.1068 1963 Unknown [id number] 2.16.8 40.1.368324.3.579.2.1068 1963 Unknown [id number] 2.16.8 40.1.031069.3.579.2.1244 1963 Unknown [id number] 2.16.840 .1.107085.3.579.2.1259 1963 Unknown [id number] 2.16.840 .1.751133.3.579.2.1259 1959 Private Health Insurance [id number] 1959 Unknown [id number] Self-pay Self Pay [id number] Social History Date Type Detail Facility Tobacco smoking stat [facility] Unknown if ever smoked [facility] Start: 1965 Sex Assigned At Male F [facility] Daily caffeine consumption Daily caffeine consumption [facility] 600 DO Work Phone: Comment on above: 2 (24oz) cups of cof fee daily; Quit 07/26/2012; Start: 04-13-2023 [facility] End: 06-18-2012 History of tobacco use Current smoker [facility] Work Phone: End: 06-18-2012 History of tobacco use Cigarette Smoker [facility] Work Phone: Start: 04-13-2023 Tobacco use and exposure Smokeless tobacco non-user [facility] Work Phone: Start: 04-13-2023 Alcohol intake Lifetime non-d raisa (finding) [facility] Work Phone: Start: 1965 Sex Assigned At Not on file [facility] Work Phone: Gender identity Not on file [facility] Start: 04-03-2023 End: 04-13-2023 Exposure to SARS-CoV-2 (event) Not sure [facility] Goals Date Patient Goal Desired Activity /State History of Present illness Narrative 04-13-2023 Justyn Mondragon MD - 04/13/2023 11:30 AM EDT Note Date & Type Note Facility 04-13-2023 History of Present illness Narrative Images from the original note were not included. CARDIOLOGY OFFICE VISIT CHIEF COMPLAINT HISTORY OF PRESENT ILLNESS The patient is being seen after recent hospitalization at [facility]. He states that he had atrial fibrillation and is why he was admitted. They have placed him on apixaban. He states he is tolerating the apixaban without any problem. He denies any problem bleeding. He is not having any chest discomfort or symptoms of myocardial ischemia. He has some mild dyspnea but nothing severe or change. He continues to have some swelling of his lower extremities bilaterally due to his chronic venous insufficiency. He has more problems with his left lower extremity than his right. IMPRESSION 1. Cardiac status, stable. 2. Coronary artery disease, no angina 3. Non-Q-wave myocardial infarction, July 2012. 4. Percutaneous coronary intervention with bare-metal stent implantation of mid right coronary artery, July 2012. 5. Morbid obesity. 6. Hyperlipidemia. 7. Obstructive Sleep Apnea, CPAP compliant 8. Hypertension 9. Paroxysmal Atrial Fibrillation 10. Remote Vein Ablation procedure per patient to Left Lower Leg, chronic venous insufficiency of lower extremities bilaterally Please excuse any errors in grammar or translation related to this dictation. Voice recognition software was utilized to prepare this document. Past Medical History Social History Social History Tobacco Use Smoking status: Former Types: Cigarettes Quit date: 2012 Years since quittin.8 Smokeless tobacco: Never Substance Use Topics Alcohol use: Never Drug use: Never Family History Family History Problem Relation Name Age of Onset Diabetes Mother Lung cancer Brother Cancer Brother Allergies: Allergies Allergen Reactions Lisinopril Cough Outpatient Medications: Current Outpatient Medications Medication Instructions apixaban (ELIQUIS) 5 mg, oral, 2 times daily aspirin 81 mg EC tablet 1 tablet, oral, Daily atorvastatin (Lipitor) 40 mg tablet 1 tablet, oral, Nightly cholecalciferol (Vitamin D-3) 50,000 unit capsule 1 capsule, oral, Daily dilTIAZem CD (CARDIZEM CD) 240 mg, oral, Daily furosemide (Lasix) 20 mg tablet oral, Daily levalbuterol (Xopenex) 45 mcg/actuation inhaler 1-2 puffs, inhalation levoFLOXacin (Levaquin) 750 mg tablet oral, Daily losartan (COZAAR) 50 mg, oral, Daily metoprolol tartrate (LOPRESSOR) 25 mg, oral, 2 times daily prednisoLONE ODT (ORAPRED ODT) 10 mg, oral, Daily REVIEW OF SYSTEMS Review of Systems All other systems reviewed and are negative. VITALS There were no vitals filed for this visit. PHYSICAL EXAM Vitals reviewed. Constitutional: Appearance: Normal and healthy appearance. Well-developed and not in distress. Eyes: Conjunctiva/sclera: Conjunctivae normal. Pupils: Pupils are equal, round, and reactive to light. Neck: Vascular: No JVR. JVD normal. Pulmonary: Effort: Pulmonary effort is normal. Breath sounds: Normal breath sounds. No wheezing. No rhonchi. No rales. Chest: Chest wall: Not tender to palpatation. Cardiovascular: PMI at left midclavicular line. Normal rate. Regular rhythm. Normal S1. Normal S2. Murmurs: There is no murmur. No gallop. No click. No rub. Pulses: Intact distal pulses. Edema: Pretibial: bilateral 1+ edema of the pretibial area. Ankle: bilateral 1+ edema of the ankle. Feet: bilateral 1+ edema of the feet. Abdominal: Tenderness: There is no abdominal tenderness. Musculoskeletal: Normal range of motion. General: No tenderness. Cervical back: Normal range of motion. Skin: General: Skin is warm and dry. Comments: Bilateral lower legs weep intermittently, redness noted to left lower leg with 1+ edema. No open wounds, no pain per patient Neurological: General: No focal deficit present. Mental Status: Alert and oriented to person, place and time. Psychiatric: Behavior: Behavior is cooperative. ASSESSMENT AND PLAN Diagnoses and all orders for this visit: CAD S/P percutaneous coronary angioplasty Paroxysmal atrial fibrillation (CMS/HCC) Old MO (myocardial infarction) Mixed hyperlipidemia Primary hypertension Obstructive sleep apnea syndrome Morbid obesity with BMI of 50.0-59.9, adult (CMS/HCC) Former smoker Status post ablation of incompetent vein using laser @ASSESSMENTANDPLANTEXT@ documented in this encounter [facility] Work Phone: Instructions 04-13-2023 Patient Instructions Note Date & Type Note Facility 04-13-2023 Instructions Enrike Orozco RN - 04/13/2023 11:30 AM EDT Patient to follow up in September with Dr. Ashley MD Please STOP Furosemide (Lasix) moving forward Will continue following you for your CDL and stress testing evaluation. No other changes today. Continue same medication otherwise. I, Enrike Orozco RN am scribing for and in the presence of Dr. Justyn Ramirez MD documented in this encounter [facility] Work Phone: Clinical Note 08-25-2022 Note Date & Type Note Facility 08-25-2022 Note PROCEDURE: XR ANKLE LT MIN 3 V HISTORY: Pain of left ankle joint ; protuberance near Achilles tendon; no known injury COMPARISON: None. FINDINGS: BONES:No fracture, dislocation, or bone lesion. SOFT TISSUES:Focal area of skin thickening posterior to the ankle joint which corresponds to the external marker localizing patient's palpable lump. No radiopaque foreign body. Posterior calcaneal fat space appears well-preserved. EFFUSION:None visible. OTHER: Negative. IMPRESSION: 1. Focal skin thickening corresponding to patient's palpable lump; of uncertain etiology. No appreciable foreign body. Electronically authenticated by: KESHAWN PECK Date: 2022-08-25 07:01 [facility] Chief complaint Narrative - Reported Note Date & Type Note Facility Chief complaint Narrative - Reported ELYSE LEAHY is being seen for a cardiovascular evaluation . POC for knee surgery. -[facility] 600 DO Work Phone: Evaluation note Note Date & Type Note Facility Evaluation note Diagnosis CAD S/P percutaneous coronary angioplasty Paroxysmal atrial fibrillation (CMS/HCC) Atrial fibrillation Old MO (myocardial infarction) Old myocardial infarction Mixed hyperlipidemia Primary hypertension Unspecified essential hypertension Obstructive sleep apnea syndrome Obstructive sleep apnea (adult) (pediatric) Morbid obesity with BMI of 50.0-59.9, adult (CMS/HCC) Former smoker Personal history of tobacco use, presenting hazards to health Status post ablation of incompetent vein using laser documented in this encounter [facility] Work Phone: History of Present illness Narrative Note Date & Type Note Facility History of Present illness Narrative Patient is here for follow-up and to discuss preoperative risk assessment for knee surgery. He is noncompliant 55-year-old with known history of coronary artery disease and prior PCI to the right coronary artery and known occlusion of his circumflex. Last time I saw him was for pretty much another situation. He was requesting preoperative risk assessment for knee surgery. This was done back in 2019 without any cardiac issues. Since then the patient reports he has been reasonably active. He has gained close to 60 pounds. He denies any change in cardiac status or symptoms. He reports he is compliant with his medication. He had no intervening ischemic event. His last stress test showed limited exercise tolerance but was negative.ASSESSMENT:1. Coronary artery disease with prior PCI to the right coronary artery with known occlusion of his chinik circ. He remains active but difficult to determine his functional status due to his degenerative joint disease of his knee2. Hypertension, controlled.3. Hyperlipidemia, no recent lab available4. Obesity with significant weight gain recently his BMI now above 505. Sleep apnea, compliant with CPAP.6. Remote history of atrial fibrillation. No recurrence. Elected for aspirin therapy.7. Preoperative risk assessment for knee surgeryRECOMMENDATION:1. The patient based on the above and stable cardiac status2. Patient was counseled regarding coronary risk factor modification3. Patient is acceptable candidate to proceed with his surgery his operative risk is acceptable based on ACC/AHA guidelines in view of prior revascularization, no active cardiac symptoms and a previously negative stress test4. Patient was advised he can hold his aspirin for 5-7 days prior to surgery5. Patient advised to be compliant6. We discussed risk factor modification the importance of weight reduction7. 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 He states he has been doing well from a cardiac standpoint. He denies chest discomfort or symptoms of myocardial ischemia. He has not used nitroglycerin. He denies any significant dyspnea on exertion. He denies palpitations, presyncope, and syncope. He denies any problem with his current medications. I did go over results of his lab work done in May and his sodium and potassium are low. I told him I believe this is due to hydrochlorothiazide. I am getting give him a short term potassium chloride replacement to bring up his potassium. I am going to discontinue his hydrochlorothiazide and increase his dose of lisinopril. I will place him on 20 mg of lisinopril a day. He will check his blood pressure regularly 2 or 3 times a week and call me if is not under control. I told him we will get a GXT for his DOT physical and call him with results. I did go results of his lipid profile with him from December 2021. Cholesterol 133, triglycerides 135, HDL 54, LDL 52.IMPRESSION1. Cardiac status, stable.2. Coronary artery disease.3. Non-Q-wave myocardial infarction, July 2012.4. Percutaneous coronary intervention with bare-metal stent implantation of mid right coronary artery, July 2012.5. Morbid obesity.6. Hyperlipidemia.7. Obstructive Sleep Apnea, CPAP compliant8. Hypertension9. Remote history of atrial fibrillation, no clinical recurrencesPlease excuse any errors in grammar or translation related to this dictation. Voice recognition software was utilized to prepare this document. 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 He states he has been doing well from a cardiac standpoint. He denies chest discomfort or symptoms of myocardial ischemia. He has not used nitroglycerin. He denies any significant dyspnea on exertion. He denies palpitations, presyncope, and syncope. He denies any problem with his current medications. I did go over results of his lab work done in May and his sodium and potassium are low. I told him I believe this is due to hydrochlorothiazide. I am getting give him a short term potassium chloride replacement to bring up his potassium. I am going to discontinue his hydrochlorothiazide and increase his dose of lisinopril. I will place him on 20 mg of lisinopril a day. He will check his blood pressure regularly 2 or 3 times a week and call me if is not under control. I told him we will get a GXT for his DOT physical and call him with results. I did go results of his lipid profile with him from December 2021. Cholesterol 133, triglycerides 135, HDL 54, LDL 52.IMPRESSION1. Cardiac status, stable.2. Coronary artery disease.3. Non-Q-wave myocardial infarction, July 2012.4. Percutaneous coronary intervention with bare-metal stent implantation of mid right coronary artery, July 2012.5. Morbid obesity.6. Hyperlipidemia.7. Obstructive Sleep Apnea, CPAP compliant8. Hypertension9. Remote history of atrial fibrillation, no clinical recurrencesPlease excuse any errors in grammar or translation related to this dictation. Voice recognition software was utilized to prepare this document. [facility] Work Phone: Summary Purpose Family History No Family History Records Found Relationship Condition Age at Onset Recorded Date/T carlos Not Specified Diabetes mellitus Unknown brother Malignant neoplasm of lung Unknown grandparent Malignant neoplasm Unknown Unknown Family Member Name Dates Details Family history of diabetes m ellitus: Mother(V18.0, Z83.3) Status:Active Family history of malignant neoplasm: Brother(V16.9, Z80.9) Status:Active Family history of lung cance r: Brother(V16.1, Z80.1) Status:Active No pertinent family history: Father(V49.89, Z78.9) Status:Active Unknown Family Member Name Dates Details Family history of diabetes m ellitus: Mother(V18.0, Z83.3) Status:Active Family history of malignant neoplasm: Brother(V16.9, Z80.9) Status:Active Family history of lung cance r: Brother(V16.1, Z80.1) Status:Active No pertinent family history: Father(V49.89, Z78.9) Status:Active Unknown Family Member Name Dates Details Family history of diabetes m ellitus: Mother(V18.0, Z83.3) Status:Active Family history of malignant neoplasm: Brother(V16.9, Z80.9) Status:Active Family history of lung cance r: Brother(V16.1, Z80.1) Status:Active No pertinent family history: Father(V49.89, Z78.9) Status:Active Unknown Family Member Name Dates Details Family history of diabetes m ellitus: Mother(V18.0, Z83.3) Status:Active Family history of malignant neoplasm: Brother(V16.9, Z80.9) Status:Active Family history of lung cance r: Brother(V16.1, Z80.1) Status:Active No pertinent family history: Father(V49.89, Z78.9) Status:Active Unknown Family Member Name Dates Details Family history of diabetes m ellitus: Mother(V18.0, Z83.3) Status:Active Family history of malignant neoplasm: Brother(V16.9, Z80.9) Status:Active Family history of lung cance r: Brother(V16.1, Z80.1) Status:Active No pertinent family history: Father(V49.89, Z78.9) Status:Active Unknown Family Member Name Dates Details No pertinent family history: Father(V49.89, Z78.9) Status:Active Family history of lung cance r: Brother(V16.1, Z80.1) Status:Active Family history of malignant neoplasm: Brother(V16.9, Z80.9) Status:Active Family history of diabetes m ellitus: Mother(V18.0, Z83.3) Status:Active Unknown Family Member Name Dates Details Family history of diabetes m ellitus: Mother(V18.0, Z83.3) Status:Active Family history of malignant neoplasm: Brother(V16.9, Z80.9) Status:Active Family history of lung cance r: Brother(V16.1, Z80.1) Status:Active No pertinent family history: Father(V49.89, Z78.9) Status:Active Unknown Family Member Name Dates Details Family history of diabetes m ellitus: Mother(V18.0, Z83.3) Status:Active Family history of malignant neoplasm: Brother(V16.9, Z80.9) Status:Active Family history of lung cance r: Brother(V16.1, Z80.1) Status:Active No pertinent family history: Father(V49.89, Z78.9) Status:Active Unknown Family Member Name Dates Details Family history of diabetes m ellitus: Mother(V18.0, Z83.3) Status:Active Family history of malignant neoplasm: Brother(V16.9, Z80.9) Status:Active Family history of lung cance r: Brother(V16.1, Z80.1) Status:Active No pertinent family history: Father(V49.89, Z78.9) Status:Active Unknown Family Member Name Dates Details Family history of diabetes m ellitus: Mother(V18.0, Z83.3) Status:Active Family history of malignant neoplasm: Brother(V16.9, Z80.9) Status:Active Family history of lung cance r: Brother(V16.1, Z80.1) Status:Active No pertinent family history: Father(V49.89, Z78.9) Status:Active Unknown Family Member Name Dates Details No pertinent family history: Father(V49.89, Z78.9) Status:Active Family history of lung cance r: Brother(V16.1, Z80.1) Status:Active Family history of malignant neoplasm: Brother(V16.9, Z80.9) Status:Active Family history of diabetes m ellitus: Mother(V18.0, Z83.3) Status:Active Unknown Family Member Name Dates Details Family history of diabetes m ellitus: Mother(V18.0, Z83.3) Status:Active Family history of malignant neoplasm: Brother(V16.9, Z80.9) Status:Active Family history of lung cance r: Brother(V16.1, Z80.1) Status:Active No pertinent family history: Father(V49.89, Z78.9) Status:Active Advance Directives No Advanced Directives Records FoundNo Advanced Directives Records FoundNo Advanced Directives Records FoundNo Advanced Directives Records FoundNo Advanced Directives Records FoundNo Advanced Directives Records FoundNo Advanced Directives Records Found Assessments No Assessments Information AvailableNo Assessments Information Available Chief Complaint Patient here for overdue general cardiology follow up. Former patient of Dr. Christian.Patient here for overdue general cardiology follow up. Former patient of Dr. Christian. Additional Source Comments (unrecognized sect ion and content) No Status Records FoundNo Status Records FoundNo Status Records FoundNo Status Records FoundNo Status Records FoundNo Status Records FoundNo Status Records Found INFORMATION SOURCE (unrecogn ized section and content) DATE CREATED AUTHOR 12/06/[address] [facility] DATE CREATED AUTHOR AUTHOR'S ORGANIZ ATION 07/20/2022 [facility] DATE CREATED AUTHOR AUTHOR'S ORGANIZ ATION 07/20/2022 [employer] DATE CREATED AUTHOR AUTHOR'S ORGANIZ ATION 10/29/2022 [facility] DATE CREATED AUTHOR AUTHOR'S ORGANIZ ATION 12/23/2022 [facility] DATE CREATED AUTHOR AUTHOR'S ORGANIZ ATION 04/16/2023 [facility] DATE CREATED AUTHOR AUTHOR'S ORGANIZ ATION 06/14/2023 [facility] EPIC Reason for Visit (unrecogniz ed section and content) Reason Comments Hospital Follow-up Care Teams (unrecognized sec tion and content) Histological Illustrator Relationship Specialty Start Date End Date Eusebia Terrell, AD OPERATIONS COORDINATOR-REHAB DIRECTOR [address] [place] [address] PCP - General 11/04/19 FOR RECORDS PERTAINING TO PATIENTS WHO ARE OR HAVE BEEN ENROLLED IN A CHEMICAL DEPENDENCY/SUBSTANCEABUSE PROGRAM, SOME INFORMATION MAY BE OMITTED. This clinical summary was aggregated from multiple sources. Caution should be exercised in using it in the provision of clinical care. This summary normalizes information from multiple sources, and as a consequence, information in this document may materially change the coding, format and clinical context of patient data. In addition, data may be omitted in some cases. CLINICAL DECISIONS SHOULD BE BASED ON THE PRIMARY CLINICAL RECORDS. [facility]. provides no warranty or guarantee of the accuracy or completeness of information in this document.
[2023-06-16 00:40] LABS: Basophils Percent Auto 0.4 % (0.2-2.0); Eosinophils Absolute Auto 0.1 10^3/uL (0.0-0.7); Hematocrit 46.3 % (42.0-54.0); Hemoglobin 15.1 g/dL (14.0-18.0); Immature Granulocytes Abs Auto 0.01 10^3/uL (0.00-0.03); Immature Granulocytes Pct Auto 0.1 % (0.0-0.5); Lymphocytes Percent Auto 14.9 % (20.5-60.0); Mean Corpuscular HGB Conc 32.6 g/dL (29.9-35.2); Mean Corpuscular Hemoglobin 31.5 pg (25.9-34.0); Mean Corpuscular Volume 96.5 fL (80.0-94.0); Mean Platelet Volume 10.1 fL (9.5-13.5); Monocytes Absolute Auto 0.9 10^3/uL (0.3-0.8); Monocytes Percent Auto 13.1 % (1.7-12.0); Neutrophils Absolute Auto 4.9 10^3/uL (1.4-6.5); Neutrophils Percent Auto 70.5 % (43.0-75.0); Platelet Count 230 10^3/uL (150-450); Red Cell Distribution Width 11.9 % (11.0-15.0)
[2023-06-16 00:53] LABS: Influenza Virus A Antigen Negative; Influenza Virus B Antigen Negative; Internal Control Within Normal Limits
[2023-06-16 00:54] LABS: SARS-CoV-2 Ag NEGATIVE (NEGATIVE)
[2023-06-16] MEDS: DILTIAZEM HCL 25 MG/5 ML VIAL 10 MG IV (00:57)
[2023-06-16 00:59] LABS: Anion Gap 4.8; BUN Creatinine Ratio 13.4; Calcium 9.1 mg/dL (8.5-10.1); Chloride 97 mmol/L (98-107); Estimated GFR (African America >60 (>=60); Estimated GFR (Non-African Ame >60 (>=60); Glucose 110 mg/dL (74-106); Potassium 3.8 mmol/L (3.5-5.1); Sodium 137 mmol/L (136-145)
[2023-06-16 01:03] LABS: Troponin I High Sensitivity 10.7 pg/mL (4.0-76.1)
[2023-06-16] MEDS: DILTIAZEM HCL 25 MG/5 ML VIAL 20 MG IV (01:42)
[2023-06-16] MEDS: dilTIAZem HCL 125 MG in 0.9 % SODIUM CHLORIDE 100 ML IV (01:42)
[2023-06-16] MEDS: CEFTRIAXONE 1,000 MG in 0.9 % SODIUM CHLORIDE 50 ML 100 MG IV ×2 (01:57→19:26)
[2023-06-16] MEDS: AZITHROMYCIN 500 MG in 0.9 % SODIUM CHLORIDE 250 ML 250 MG IV ×2 (02:53→20:08)
--- OUTSIDE RECORDS SUMMARY | 2023-06-16 05:18 | XMS_ITS | CCD ---
Author Name Unknown Address [address] [place] [address] Organization [facility] Care Team Providers Care Managing Supervisor Name Role Phone MADISON CHRISTIAN Unavailable Unavailable [...] Eusebia Rondon Primary Care Unavailab le AICHHOLZ, MOTOR LODGE CLERK [place]SE[place]IA Primary Care Unavailable DR VIDHI RHOADES Consulting Unavailable DR VIDHI RHOADES Admitting Unavailable DR VIDHI RHOADES Attending Unavailable EUSEBIA VICTORIA Consulting Unavailable MARCO ANTONIO FRIEDMAN Consulting Unavailable AICHHOLZ, MOTOR LODGE CLERK [place] Primary Care Unavailable ANNAMARIE ., TED Admitting Unavailable ANNAMARIE .TED Attending Unavailable ANNAMARIE ., TED Consulting Unavailable ROBERTA PERRIN Consulting Unavailable AYDINROBERTA Attending Unavailable AYDIN, ROBERTA Admitting Unavailable AICHHOLZ, MOTOR LODGE CLERK [place] Primary Care Unavailable MARLENE ARAMBULA Consulting Unavailable AICHHOLZ, MOTOR LODGE CLERK [place] Primary Care Unavailable AYDIN, ROBERTA Admitting Unavailable AYDIN, ROBERTA Attending Unavailable AYDIN, ROBERTA Consulting Unavailable Nery Mckeon Consulting Unavailable AICHHOLZ, MOTOR LODGE CLERK [place] Primary Care Unavailable CAM ., DR CONNOLLY Admitting Unavailable CAM ., DR CONNOLLY Attending Unavailable RAFAEL, DR MARCO ANTONIO Stewart Consulting Unavailable CLARY RODARTE Consulting Unavailable AICHHOLZ, MOTOR LODGE CLERK [place] Primary Care Unavailable BRENTON, DR VIDHI Biswas Admitting Unavailable BRENTON, DR VIDHI Biswas Attending Unavailable BRENTON, DR VIHDI Biswas Consulting Unavailable DONG BUNDY Consulting Unavailable ANNAMARIE .TED Consulting Unavailable ANNAMARIE ., TED Attending Unavailable ANNAMARIE ., TED Admitting Unavailable AICHHOLZ, MOTOR LODGE CLERK [place] Primary Care Unavailable Dawit, Leo Consulting Unavailable ROMEO .DR FRANCO Consulting Unavailable ROMEO ., DR FRANCO Attending Unavailable AICHHOLZ, MOTOR LODGE CLERK [place] Primary Care Unavailable ROMEO .DR FRANCO Admitting Unavailable HAY ., DR CONNOLLY Consulting Unavailable AYDIN, ROBERTA Consulting Unavailable SANDEEP MARY Consulting Unavailable AICHHOLZ, MOTOR LODGE CLERK [place] Consulting Unavailable AICHHOLZ, MOTOR LODGE CLERK [place] Primary Care Unavailable AICHHOLZ, MOTOR LODGE CLERK [place] Attending Unavailable AICHHOLZ, MOTOR LODGE CLERK [place] Admitting Unavailable MISC, DR DAVIS Consulting Unavailable AICHHOLZ, MOTOR LODGE CLERK [place] Primary Care Unavailable MISC, DR DAVIS Attending Unavailable MISC, DR DAVIS Admitting Unavailable ZICATHLEEN, DR KESHAWN Biswas Consulting Unavailable AICHHOLZ, MOTOR LODGE CLERK [place] Primary Care Unavailable RICA YE Attending Unavailable RICA YE Admitting Unavailable CASSIRICA Consulting Unavailable AICHHOLZ, MOTOR LODGE CLERK [place] Consulting Unavailable AICHHOLZ, MOTOR LODGE CLERK [place] Primary Care Unavailable AICHHOLZ, MOTOR LODGE CLERK [place] Attending Unavailable AICHHOLZ, MOTOR LODGE CLERK [place] Admitting Unavailable AICHHOLZ, MOTOR LODGE CLERK [place] Admitting Unavailable AICHHOLZ, MOTOR LODGE CLERK [place] Attending Unavailable AICHHOLZ, MOTOR LODGE CLERK [place] Primary Care Unavailable AICHHOLZ, MOTOR LODGE CLERK [place] Consulting Unavailable SWAPNA GUZMÁN Attending Unavailable SWAPNA GUZMÁN Admitting Unavailable ROMEO .DR FRANCO Consulting Unavailable AICHHOLZ, MOTOR LODGE CLERK [place] Primary Care Unavailable BABITA .DR SCOTT [...] Lisinopril; Translations: [Lisinopril TABS] Drug Allergy 04-12-2023 [facility] (1 source) Lisinopril; Translations: [LISINOPRIL] Drug Allergy 04-12-2023 [facility] 3 Repository Medications Current Medications Medication Drug [...] completed) Start: 03-27-2020 take 1 capsule by [facility] every twenty-four hours Dilt-XR 180 MG Oral [...] mg) by mouth once daily. 0 Active lwyxrsvsjrp-keabvokff-ulvzst er (Trelegy Ellipta) 200-62.5-25 mcg blister with device (1 source) End: 04-13-2023 vwjjbszvjhu-dwhrdtrnq-nsuoqc er (Trelegy Ellipta) 200-62.5-25 mcg blister with [...] by mouth once daily. 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 Jersey Butcher INFLUENZA A AND B AGon 10-26 INFLUANEGH SEE BELOW Normal [facility] Comment on above: Result Comment: Nega tive for Flu A protein angiten. Infection due to Flu A cannot be ruled out. Flu A angiten in the sample may be below the detection limit of the test. Performed By: #### T SH, BNP, HSTROPN, CMP #### [facility] [address] [place] [address] Dr. Jersey Butcher INFLUBNEGH SEE BELOW Normal [facility] Comment on above: Result Comment: Nega tive for Flu B protein antigen. Infection due to Flu B cannot be ruled out. Flu B antigen in the sample may be below the detection limit of the test. Performed By: #### T SH, BNP, HSTROPN, CMP #### [facility] [address] [place] [address] Dr. Jersey Butcher INFLUENZA A AG Negative Normal NEGATIVE SEE COMMENT [facility] Comment on above: Performed By: #### T SH, BNP, HSTROPN, CMP #### [facility] [address] [place] [address] Dr. Jersey Butcher INFLUENZA B AG Negative Normal NEGATIVE SEE COMMENT [facility] Comment on above: Performed By: #### T SH, BNP, HSTROPN, CMP #### [facility] [address] [place] [address] Dr. Jersey Butcher SYMPTOMATIC COVID-19 ANTIGEN on 10-26-2022 EUA Statement SEE BELOW Normal [facility] Comment on above: Result Comment: This test [...] sooner. Performed By: #### C VDTB #### [facility] [address] [place] [address] Dr. Jersey Butcher SARS-CoV-2 (COVID-19) RNA PILI+probe Ql (Unsp spec) Negative Normal NEGATIVE [facility] Comment on above: Performed By: #### C VDTBH #### [facility] [address] [place] [address] Dr. Jersey Butcher [facility] CARDIAC STRESS/REST INJE CTIONon 10-02-2022 [facility] CARDIAC STRESS/REST INJECTION Patient Name: ELYSE LEAHY STUDY: MYOCARDIAL PERFUSION STRESS TEST WITH LEXISCAN Performing facility: [facility], [address] [place] [address], [address], [address] Provider: Tequila Jaffe MD, FACC PCP: Dr. Tristen Terrell Supervising provider: Mary Julien MD, FACC INDICATION: DOT physical I25.10: CAD S/P percutaneous coronary angioplasty Z98.61 HISTORY: Gender: M; Age: 57 y/o ; Height: 0 cm; Weight: 154.620376 kg. CAD; High Cholesterol; HTN; Previous OR; Arrhythmias; AFib Quit smoking 10 years ago. Cardiac catheterization 2012. PTCA on RCA. COMPARISON: No comparison. ACCESSION NUMBER(S): [id number]; [id number] ORDERING CLINICIAN: TEQUILA JAFFE TECHNIQUE: TWO DAY [...] Electronically signed by: MADISON CHRISTIAN MD Normal [facility] No Panel Informationon 10-02 Normal [facility] 305 DO Work Phone: HEMOGLOBINon 09-15-2022 Hemoglobin (Bld) [Mass/Vol] 14.3 g/dL Normal 14.0-18.0 [facility] Comment on above: Performed By: #### T SH, BNP, HSTROPN, CMP #### [facility] [address] [address] [address] Jersey Butcher Covid-19 PCR (CVDTB)on 08-16 SARS-CoV-2 (COVID-19) RNA PILI+probe Ql (Unsp spec) Not detected Normal NOT DETECTED [facility] Comment on above: Result Comment: When diagnostic [...] for this test is supported by the [place] of Health and Human Service's declaration that [...] #### T SH, BNP, HSTROPN, CMP #### [facility] [address] [place] [address] Dr. Jersey Butcher GROUP A STREP CULTUREon 08-16 S. pyogenes Ag Ql (Unsp spec) Culture Observations: NEGATIVE FOR GROUP A STREPTOCOCCUS. Normal [facility] Comment on above: Performed By: #### T SH, BNP, HSTROPN, CMP #### [facility] [address] [address] [address] Jersey Butcher STREPT SCREENon 08-27-2022 STREP SCREEN A Negative Normal NEGATIVE [facility] Comment on above: Performed By: #### T SH, BNP, HSTROPN, CMP #### [facility] [address] [place] [address] Dr. Jersey Butcher XR CHEST 1 Von 08-27-2022 XR CHEST 1 V EXAM: XR CHEST 1 V HISTORY: SHORTNESS OF BREATH COMPARISON: 05/25/2022 TECHNIQUE: Frontal view of the chest. FINDINGS: No focal consolidations or pleural effusions. Cardiomegaly. Visualized osseous structures are unremarkable. IMPRESSION: No acute disease. Electronically authenticated by: LEO MARSHALL Date: 2022-08-27 14:06 Normal [facility] Office Visit (Cardiology)on 07-19-2022 Follow-up visit Diagnoses/Problems [...] [address] Justyn Mondragon MD. [facility] Patient to STOP Hydrochlorothiazide moving forward. [...] echocardiogram (V72.85 (more content not included)... Normal [place] Tobacco Screening.on 023 Adult depression screening assessment No [facility] [employer] DO Work Phone: Fall risk assessment a) No falls within the last year [facility] [employer] 305 DO Work Phone: Tobacco use status CPHS b) No [facility] [employer] 305 DO Work Phone: CBC W MANUAL DIFFon 06-04-20 22 ATYPICAL LYMPH # 0.14 103/ul Normal [facility] Comment on above: Performed By: #### T SH, BNP, HSTROPN, CMP #### [facility] [address] [address] [address] Jersey Butcher ATYPICAL LYMPH % 1 % Normal [facility] Comment on above: Performed By: #### T SH, BNP, HSTROPN, CMP #### [facility] [address] [address] [address] Jersey Butcher BAND # 0.0 103/ul Normal 0.0-0.3 [facility] Comment on above: Performed By: #### T SH, BNP, HSTROPN, CMP #### [facility] [address] [address] [address] Jersey Butcher BAND % 0 % Normal 0-5 [facility] Comment on above: Performed By: #### T SH, BNP, HSTROPN, CMP #### [facility] [address] [address] [address] Jersey Butcher BASOM # 0.00 103/ul Normal 0.00-0.10 [facility] Comment on above: Performed By: #### T SH, BNP, HSTROPN, CMP #### [facility] [address] [address] [address] Jersey Butcher BASOM % 0.0 % Critically low 0.2-2.0 [facility] Comment on above: Performed By: #### T SH, BNP, HSTROPN, CMP #### [facility] [address] [address] [address] Jersey Butcher BLAST # Normal [facility] Comment on above: Performed By: #### T SH, BNP, HSTROPN, CMP #### [facility] [address] [address] [address] Jersey Butcher BLAST % Normal [facility] Comment on above: Performed By: #### T SH, BNP, HSTROPN, CMP #### [facility] [address] [address] [address] Jersey Butcher CORRECTED WBC Normal 4.0-11.0 [facility] Comment on above: Performed By: #### T SH, BNP, HSTROPN, CMP #### [facility] [address] [address] [address] Jersey Butcher EOS # 0.00 103/ul Normal 0.00-0.70 [facility] Comment on above: Performed By: #### T SH, BNP, HSTROPN, CMP #### [facility] [address] [address] [address] Jersey Butcher EOS% 0.0 % Critically low 0.9-7.0 [facility] Comment on above: Performed By: #### T SH, BNP, HSTROPN, CMP #### [facility] [address] [address] [address] Jersey Butcher HCT 41.3 % Critically low 42.0-54.0 [facility] Comment on above: Performed By: #### T SH, BNP, HSTROPN, CMP #### [facility] [address] [address] [address] Jesrey Butcher HGB 14.2 g/dl Normal 14.0-18.0 [facility] Comment on above: Performed By: #### T SH, BNP, HSTROPN, CMP #### [facility] [address] [place] [address] Dr. Jersey Butcher LYMPHM # 0.42 103/ul Critically low 1.20-3.80 [facility] Comment on above: Performed By: #### T SH, BNP, HSTROPN, CMP #### [facility] [address] [place] [address] Dr. Jersey Butcher LYMPHM% 3.0 % Critically low 20.5-60.0 [facility] Comment on above: Performed By: #### T SH, BNP, HSTROPN, CMP #### [facility] [address] [place] [address] Dr. Jersey Butcher MCH 30.9 pg Normal 25.9-34.0 [facility] Comment on above: Performed By: #### T SH, BNP, HSTROPN, CMP #### [facility] [address] [place] [address] Dr. Jersey Butcher MCHC 34.4 g/dl Normal 29.9-35.2 [facility] Comment on above: Performed By: #### T SH, BNP, HSTROPN, CMP #### [facility] [address] [place] [address] Dr. Jersey Butcher MCV 89.8 fL Normal 80.0-94.0 [facility] Comment on above: Performed By: #### T SH, BNP, HSTROPN, CMP #### [facility] [address] [place] [address] Dr. Jersey Butcher METAMYELOCYTE # Normal [facility] Comment on above: Performed By: #### T SH, BNP, HSTROPN, CMP #### [facility] [address] [place] [address] Dr. Jersey Butcher METAMYELOCYTE % Normal [facility] Comment on above: Performed By: #### T SH, BNP, HSTROPN, CMP #### [facility] [address] [address] [address] Jersey Butcher MONOM# 0.14 103/ul Critically low 0.30-0.80 [facility] Comment on above: Performed By: #### T SH, BNP, HSTROPN, CMP #### [facility] [address] [place] [address] Dr. Jersey Butcher MONOM% 1.0 % Critically low 1.7-12.0 [facility] Comment on above: Performed By: #### T SH, BNP, HSTROPN, CMP #### [facility] [address] [address] [address] Jersey Butcher MPV 10.4 fL Normal 9.5-13.5 [facility] Comment on above: Performed By: #### T SH, BNP, HSTROPN, CMP #### [facility] [address] [place] [address] Dr. Jersey Butcher MYELOCYTE # Normal [facility] Comment on above: Performed By: #### T SH, BNP, HSTROPN, CMP #### [facility] [address] [place] [address] Dr. Jersey Butcher MYELOCYTE % Normal [facility] Comment on above: Performed By: #### T SH, BNP, HSTROPN, CMP #### [facility] [address] [place] [address] Dr. Jersey Butcher NRBC Normal [facility] Comment on above: Performed By: #### T SH, BNP, HSTROPN, CMP #### [facility] [address] [place] [address] Dr. Jersey Butcher PLT 209 103/ul Normal 150-450 [facility] Comment on above: Performed By: #### T SH, BNP, HSTROPN, CMP #### [facility] [address] [place] [address] Dr. Jersey Butcher RBC 4.60 106/ul Critically low 4.70-6.10 [facility] Comment on above: Performed By: #### T SH, BNP, HSTROPN, CMP #### [facility] [address] [address] [address] Jersey Butcher RDW 11.9 % Normal 11.0-15.0 [facility] Comment on above: Performed By: #### T SH, BNP, HSTROPN, CMP #### [facility] [address] [address] [address] Jersey Butcher SEG # 13.30 103/ul Critically high 1.40-6.50 [facility] Comment on above: Performed By: #### T SH, BNP, HSTROPN, CMP #### [facility] [address] [address] [address] Jersey Butcher SEG % 95.0 % Critically high 43.0-75.0 [facility] Comment on above: Performed By: #### T SH, BNP, HSTROPN, CMP #### [facility] [address] [place] [address] Dr. Jersey Butcher WBC 14.0 103/ul Critically high 4.0-11.[address] [facility] Comment on above: Performed By: #### T SH, BNP, HSTROPN, CMP #### [facility] [address] [address] [address] Jersey Butcher PROF 14(COMP METB)on 022 Albumin [Mass/Vol] 3.0 g/dL Critically low 3.4-5.0 [facility] Comment on above: Performed By: #### T SH, BNP, HSTROPN, CMP #### [facility] [address] [address] [address] Jersey Butcher Albumin/Globulin [Mass ratio] 0.8 {ratio} Normal [facility] Comment on above: Performed By: #### T SH, BNP, HSTROPN, CMP #### [facility] [address] [place] [address] Dr. Jersey Butcher ALP [Catalytic activity/Vol] 91 U/L Normal 46-116 [facility] Comment on above: Performed By: #### T SH, BNP, HSTROPN, CMP #### [facility] [address] [place] [address] Dr. Jersey Butcher ALT [Catalytic activity/Vol] 43 U/L Normal 16-63 [facility] Comment on above: Performed By: #### T SH, BNP, HSTROPN, CMP #### [facility] [address] [place] [address] Dr. Jersey Butcher Anion gap [Moles/Vol] 8.1 mmol/L Normal [facility] Comment on above: Performed By: #### T SH, BNP, HSTROPN, CMP #### [facility] [address] [place] [address] Dr. Jersey Butcher AST [Catalytic activity/Vol] 18 U/L Normal 15-37 [facility] Comment on above: Performed By: #### T SH, BNP, HSTROPN, CMP #### [facility] [address] [place] [address] Dr. Jersey Butcher Bilirubin [Mass/Vol] 0.4 mg/dL Normal 0.2-1.0 [facility] Comment on above: Performed By: #### T SH, BNP, HSTROPN, CMP #### [facility] [address] [place] [address] Dr. Jersey Butcher Calcium [Mass/Vol] 8.4 mg/dL Critically low 8.5-10.1 [facility] Comment on above: Performed By: #### T SH, BNP, HSTROPN, CMP #### [facility] [address] [place] [address] Dr. Jersey Butcher Chloride [Moles/Vol] 94 mmol/L Critically low 98-107 [facility] Comment on above: Performed By: #### T SH, BNP, HSTROPN, CMP #### [facility] [address] [address] [address] Jersey Butcher CO2 [Moles/Vol] 33.0 mmol/L Critically high 21.0-32.0 [facility] Comment on above: Performed By: #### T SH, BNP, HSTROPN, CMP #### [facility] [address] [place] [address] Dr. Jersey Butcher Creatinine [Mass/Vol] 1.15 mg/dL Normal 0.70-1.30 [facility] Comment on above: Performed By: #### T SH, BNP, HSTROPN, CMP #### [facility] [address] [address] [address] Jersey Butcher EGFR-AF MICRONESIAN >60 Normal >=[address] [facility] Comment on above: Performed By: #### T SH, BNP, HSTROPN, CMP #### [facility] [address] [address] [address] Jersey Butcher EGFR-NON AF MICRONESIAN >60 Normal >=60 [facility] Comment on above: Performed By: #### T SH, BNP, HSTROPN, CMP #### [facility] [address] [place] [address] Dr. Jersey Butcher Globulin (S) [Mass/Vol] 3.6 g/dL Normal [facility] Comment on above: Performed By: #### T SH, BNP, HSTROPN, CMP #### [facility] [address] [place] [address] Dr. Jersey Butcher Glucose [Mass/Vol] 193 mg/dL Critically high 74-106 [facility] Comment on above: Performed By: #### T SH, BNP, HSTROPN, CMP #### [facility] [address] [place] [address] Dr. Jersey Butcher Potassium [Moles/Vol] 3.1 mmol/L Critically low 3.5-5.1 [facility] Comment on above: Performed By: #### T SH, BNP, HSTROPN, CMP #### [facility] [address] [place] [address] Dr. Jersey Butcher Protein [Mass/Vol] 6.6 g/dL Normal 6.4-8.2 [facility] Comment on above: Performed By: #### T SH, BNP, HSTROPN, CMP #### [facility] [address] [place] [address] Dr. Jersey Butcher Sodium [Moles/Vol] 132 mmol/L Critically low 136-145 [facility] Comment on above: Performed By: #### T SH, BNP, HSTROPN, CMP #### [facility] [address] [address] [address] Jersey Butcher Urea nitrogen [Mass/Vol] 22.0 mg/dL Critically high 7.0-18.0 [facility] Comment on above: Performed By: #### T SH, BNP, HSTROPN, CMP #### [facility] [address] [address] [address] Jersey Butcher Urea nitrogen/Creatinine [Mass ratio] 19.1 mg/mg Normal [facility] Comment on above: Performed By: #### T SH, BNP, HSTROPN, CMP #### [facility] [address] [place] [address] Dr. Jersey Butcher QUANTIFERON TB GOLD PLUSon 1 08-05-2021 QuantiFERON Criteria Comment Normal [facility] Comment on above: Result Comment: Prateek tiFERON-TB [...] #### T SH, BNP, HSTROPN, CMP #### [facility] [address] [place] [address] Dr. Jersey Butcher QuantiFERON Incubation Incubation performed. Normal [facility] Comment on above: Performed By: #### T SH, BNP, HSTROPN, CMP #### [facility] [address] [place] [address] Dr. Jersey Butcher QuantiFERON Mitogen Value 4.42 IU/mL Normal [facility] Comment on above: Performed By: #### T SH, BNP, HSTROPN, CMP #### [facility] [address] [place] [address] Dr. Jersey Butcher QuantiFERON Nil Value 0.00 IU/mL Normal [facility] Comment on above: Performed By: #### T SH, BNP, HSTROPN, CMP #### [facility] [address] [place] [address] Dr. Jersey Butcher QuantiFERON TB1 Ag Value 0.00 IU/mL Normal [facility] Comment on above: Performed By: #### T SH, BNP, HSTROPN, CMP #### [facility] [address] [place] [address] Dr. Jersey Butcher QuantiFERON TB2 Ag Value 0.01 IU/mL Normal [facility] Comment on above: Performed By: #### T SH, BNP, HSTROPN, CMP #### [facility] [address] [place] [address] Dr. Jersey Butcher QuantiFERON-TB Gold Plus Negative Normal Negative [facility] Comment on above: Result Comment: No r esponse to M tuberculosis antigens detected. Infection with M tuberculosis is unlikely, but high risk individuals should be considered for additional testing (ATS/IDSA/CDC Clinical Practice Guidelines, 2017). The reference range is an Antigen minus Nil result of <0.35 IU/mL. Chemiluminescence immunoassay methodology Performed By: #### T SH, BNP, HSTROPN, CMP #### [facility] [address] [place] [address] Dr. Jersey Butcher BNPon 06-03-2022 Natriuretic peptide B (Bld) [Mass/Vol] 273.0 pg/mL Normal <=900.0 [facility] Comment on above: Performed By: #### D DIM #### [facility] [address] [place] [address] Dr. Jersey Butcher CBC W MANUAL DIFFon 06-03-20 ATYPICAL LYMPH # Normal [facility] Comment on above: Performed By: #### C MADDIE #### [facility] [address] [place] [address] Dr. Jersey Butcher ATYPICAL LYMPH % Normal [facility] Comment on above: Performed By: #### C MADDIE #### [facility] [address] [place] [address] Dr. Jersey Butcher BAND # 0.0 103/ul Normal 0.0-0.3 [facility] Comment on above: Performed By: #### C MADDIE #### [facility] [address] [place] [address] Dr. Jersey Butcher BAND % 0 % Normal 0-5 [facility] Comment on above: Performed By: #### C MADDIE #### [facility] [address] [place] [address] Dr. Jersey Butcher BASOM # 0.00 103/ul Normal 0.00-0.10 [facility] Comment on above: Performed By: #### C MADDIE #### [facility] [address] [place] [address] Dr. Jersey Butcher BASOM % 0.0 % Critically low 0.2-2.0 [facility] Comment on above: Performed By: #### C MADDIE #### [facility] [address] [place] [address] Dr. Jersey Butcher BLAST # Normal [facility] Comment on above: Performed By: #### C MADDIE #### [facility] [address] [place] [address] Dr. Jersey Butcher BLAST % Normal [facility] Comment on above: Performed By: #### C MADDIE #### [facility] [address] [place] [address] Dr. Jersey Butcher CORRECTED WBC Normal 4.0-11.0 [facility] Comment on above: Performed By: #### C MADDIE #### [facility] [address] [place] [address] Dr. Jersey Butcher EOS # 0.00 103/ul Normal 0.00-0.70 [facility] Comment on above: Performed By: #### C MADDIE #### [facility] [address] [place] [address] Dr. Jersey Butcher EOS% 0.0 % Critically low 0.9-7.0 [facility] Comment on above: Performed By: #### C MADDIE #### [facility] [address] [place] [address] Dr. Jeresy Butcher HCT 41.2 % Critically low 42.0-54.0 [facility] Comment on above: Performed By: #### C MADDIE #### [facility] [address] [address] [address] Jersey Butcher HGB 14.3 g/dl Normal 14.0-18.0 [facility] Comment on above: Performed By: #### C MADDIE #### [facility] [address] [address] [address] Jersey Butcher LYMPHM # 0.85 103/ul Critically low 1.20-3.80 [facility] Comment on above: Performed By: #### C MADDIE #### [facility] [address] [address] [address] Jersey Butcher LYMPHM% 7.0 % Critically low 20.5-60.0 [facility] Comment on above: Performed By: #### C MADDIE #### [facility] [address] [place] [address] Dr. Jersey Butcher MCH 31.3 pg Normal 25.9-34.0 [facility] Comment on above: Performed By: #### C MADDIE #### [facility] [address] [place] [address] Dr. Jersey Butcher MCHC 34.7 g/dl Normal 29.9-35.2 [facility] Comment on above: Performed By: #### C MADDIE #### [facility] [address] [place] [address] Dr. Jersey Butcher MCV 90.2 fL Normal 80.0-94.0 [facility] Comment on above: Performed By: #### C MADDIE #### [facility] [address] [place] [address] Dr. Jersey Butcher METAMYELOCYTE # Normal [facility] Comment on above: Performed By: #### C MADDIE #### [facility] [address] [place] [address] Dr. Jersey Butcher METAMYELOCYTE % Normal [facility] Comment on above: Performed By: #### C MADDIE #### [facility] [address] [address] [address] Jersey Butcher MONOM# 0.24 103/ul Critically low 0.30-0.80 [facility] Comment on above: Performed By: #### C MADDIE #### [facility] [address] [place] [address] Dr. Jersey Butcher MONOM% 2.0 % Normal 1.7-12.0 [facility] Comment on above: Performed By: #### C BCROSIE #### [facility] [address] [place] [address] Dr. Jersey Butcher MPV 10.8 fL Normal 9.5-13.5 [facility] Comment on above: Performed By: #### C BCROSIE #### [facility] [address] [place] [address] Dr. Jersey Butcher MYELOCYTE # Normal [facility] Comment on above: Performed By: #### C MADDIE #### [facility] [address] [place] [address] Dr. Jersey Butcher MYELOCYTE % Normal [facility] Comment on above: Performed By: #### C MADDIE #### [facility] [address] [place] [address] Dr. Jersey Butcher NRBC Normal [facility] Comment on above: Performed By: #### C MADDIE #### [facility] [address] [place] [address] Dr. Jersey Butcher PLT 177 103/ul Normal 150-450 [facility] Comment on above: Performed By: #### C MADDIE #### [facility] [address] [place] [address] Dr. Jersey Butcher RBC 4.57 106/ul Critically low 4.70-6.10 [facility] Comment on above: Performed By: #### C MADDIE #### [facility] [address] [place] [address] Dr. Jersey Butcher RDW 11.8 % Normal 11.0-15.0 [facility] Comment on above: Performed By: #### C MADDIE #### [facility] [address] [place] [address] Dr. Jersey Butcher SEG # 11.10 103/ul Critically high 1.40-6.50 [facility] Comment on above: Performed By: #### C MADDIE #### [facility] [address] [address] [address] Jersey Butcher SEG % 91.0 % Critically high 43.0-75.0 [facility] Comment on above: Performed By: #### C PHILMAN #### [facility] [address] [address] [address] Jersey Butcher WBC 12.2 103/ul Critically high 4.0-11.[address] [facility] Comment on above: Performed By: #### C MADDIE #### [facility] [address] [address] [address] Jersey Butcher PROF 14(COMP METB)on 022 Albumin [Mass/Vol] 2.9 g/dL Critically low 3.4-5.0 [facility] Comment on above: Performed By: #### D DIM #### [facility] [address] [place] [address] Dr. Jersey Butcher Albumin/Globulin [Mass ratio] 0.8 {ratio} Normal [facility] Comment on above: Performed By: #### D DIM #### [facility] [address] [place] [address] Dr. Jersey Butcher ALP [Catalytic activity/Vol] 90 U/L Normal 46-116 [facility] Comment on above: Performed By: #### D DIM #### [facility] [address] [place] [address] Dr. Jersey Butcher ALT [Catalytic activity/Vol] 40 U/L Normal 16-63 [facility] Comment on above: Performed By: #### D DIM #### [facility] [address] [address] [address] Jersey Butcher Anion gap [Moles/Vol] 6.7 mmol/L Normal [facility] Comment on above: Performed By: #### D DIM #### [facility] [address] [place] [address] Dr. Jersey Butcher AST [Catalytic activity/Vol] 20 U/L Normal 15-37 [facility] Comment on above: Performed By: #### D DIM #### [facility] [address] [address] [address] Jersey Butcher Bilirubin [Mass/Vol] 0.4 mg/dL Normal 0.2-1.0 [facility] Comment on above: Performed By: #### D DIM #### [facility] [address] [address] [address] Jersey Butcher Calcium [Mass/Vol] 8.6 mg/dL Normal 8.5-10.1 [facility] Comment on above: Performed By: #### D DIM #### [facility] [address] [address] [address] Jersey Butcher Chloride [Moles/Vol] 95 mmol/L Critically low 98-107 [facility] Comment on above: Performed By: #### D DIM #### [facility] [address] [place] [address] Dr. Jersey Butcher CO2 [Moles/Vol] 33.6 mmol/L Critically high 21.0-32.0 [facility] Comment on above: Performed By: #### D DIM #### [facility] [address] [address] [address] Jersey Butcher Creatinine [Mass/Vol] 1.14 mg/dL Normal 0.70-1.30 [facility] Comment on above: Performed By: #### D DIM #### [facility] [address] [address] [address] Jersey Butcher EGFR-AF MICRONESIAN >60 Normal >=60 [facility] Comment on above: Performed By: #### D DIM #### [facility] [address] [address] [address] Jersey Butcher EGFR-NON AF MICRONESIAN >60 Normal >=60 [facility] Comment on above: Performed By: #### D DIM #### [facility] [address] [place] [address] Dr. Jersey Butcher Globulin (S) [Mass/Vol] 3.7 g/dL Normal [facility] Comment on above: Performed By: #### D DIM #### [facility] [address] [address] [address] Jersey Butcher Glucose [Mass/Vol] 205 mg/dL Critically high 74-106 [facility] Comment on above: Performed By: #### D DIM #### [facility] [address] [place] [address] Dr. Jersey Butcher Potassium [Moles/Vol] 3.3 mmol/L Critically low 3.5-5.1 [facility] Comment on above: Performed By: #### D DIM #### [facility] [address] [place] [address] Dr. Jersey Butcher Protein [Mass/Vol] 6.6 g/dL Normal 6.4-8.2 [facility] Comment on above: Performed By: #### D DIM #### [facility] [address] [place] [address] Dr. Jersey Butcher Sodium [Moles/Vol] 132 mmol/L Critically low 136-145 [facility] Comment on above: Performed By: #### D DIM #### [facility] [address] [place] [address] Dr. Jersey Butcher Urea nitrogen [Mass/Vol] 24.0 mg/dL Critically high 7.0-18.0 [facility] Comment on above: Performed By: #### D DIM #### [facility] [address] [place] [address] Dr. Jersey Butcher Urea nitrogen/Creatinine [Mass ratio] 21.1 mg/mg Normal [facility] Comment on above: Performed By: #### D DIM #### [facility] [address] [place] [address] Dr. Jersey Butcher BNPon 06-02-2022 Natriuretic peptide B (Bld) [Mass/Vol] 85.0 pg/mL Normal <=900.0 [facility] Comment on above: Performed By: #### C VDTBH #### [facility] [address] [place] [address] Dr. Jersey Butcher CBC AUTO DIFFon 06-02-2022 BASO # 0.0 103/ul Normal 0.0-0.1 [facility] Comment on above: Performed By: #### T SH, BNP, HSTROPN, CMP #### [facility] [address] [place] [address] Dr. Jersey Butcher Basophils/100 WBC (Bld) 0.5 % Normal 0.2-2.0 [facility] Comment on above: Performed By: #### T SH, BNP, HSTROPN, CMP #### [facility] [address] [place] [address] Dr. Jersey Butcher EO # 0.0 103/ul Normal 0.0-0.7 [facility] Comment on above: Performed By: #### T SH, BNP, HSTROPN, CMP #### [facility] [address] [place] [address] Dr. Jersey Butcher Eosinophils/100 WBC (Bld) 0.0 % Critically low 0.9-7.0 [facility] Comment on above: Performed By: #### T SH, BNP, HSTROPN, CMP #### [facility] [address] [place] [address] Dr. Jersey Butcher Erythrocyte distribution width (RBC) [Ratio] 11.5 % Normal 11.0-15.0 [facility] Comment on above: Performed By: #### T SH, BNP, HSTROPN, CMP #### [facility] [address] [place] [address] Dr. Jersey Butcher Hematocrit (Bld) [Volume fraction] 42.8 % Normal 42.0-54.0 [facility] Comment on above: Performed By: #### T SH, BNP, HSTROPN, CMP #### [facility] [address] [place] [address] Dr. Jersey Butcher Hemoglobin (Bld) [Mass/Vol] 14.6 g/dL Normal 14.0-18.0 [facility] Comment on above: Performed By: #### T SH, BNP, HSTROPN, CMP #### [facility] [address] [place] [address] Dr. Jersey Butcher IG # 0.00 10e3/ul Normal 0.00-0.03 [facility] Comment on above: Performed By: #### T SH, BNP, HSTROPN, CMP #### [facility] [address] [address] [address] Jersey Butcher IG % 0.0 % Normal 0.0-0.5 [facility] Comment on above: Performed By: #### T SH, BNP, HSTROPN, CMP #### [facility] [address] [place] [address] Dr. Jersey Butcher LYMPH # 0.4 103/ul Critically low 1.2-3.8 [facility] Comment on above: Performed By: #### T SH, BNP, HSTROPN, CMP #### [facility] [address] [place] [address] Dr. Jersey Butcher Lymphocytes/100 WBC (Bld) 18.4 % Critically low 20.5-60.0 [facility] Comment on above: Performed By: #### T SH, BNP, HSTROPN, CMP #### [facility] [address] [place] [address] Dr. Jersey Butcher MANUAL DIFF REQ NO Normal [facility] Comment on above: Performed By: #### T SH, BNP, HSTROPN, CMP #### [facility] [address] [place] [address] Dr. Jersey Butcher MCH (RBC) [Entitic mass] 30.9 pg Normal 25.9-34.0 [facility] Comment on above: Performed By: #### T SH, BNP, HSTROPN, CMP #### [facility] [address] [place] [address] Dr. Jersey Butcher MCHC (RBC) [Mass/Vol] 34.1 g/dL Normal 29.9-35.2 [facility] Comment on above: Performed By: #### T SH, BNP, HSTROPN, CMP #### [facility] [address] [place] [address] Dr. Jersey Butcher MCV (RBC) [Entitic vol] 90.7 fL Normal 80.0-94.0 [facility] Comment on above: Performed By: #### T SH, BNP, HSTROPN, CMP #### [facility] [address] [place] [address] Dr. Jersey Butcher MONO # 0.1 103/ul Critically low 0.3-0.8 [facility] Comment on above: Performed By: #### T SH, BNP, HSTROPN, CMP #### [facility] [address] [place] [address] Dr. Jersey Butcher Monocytes/100 WBC (Bld) 4.6 % Normal 1.7-12.0 [facility] Comment on above: Performed By: #### T SH, BNP, HSTROPN, CMP #### [facility] [address] [place] [address] Dr. Jersey Butcher NEUT # 1.7 103/ul Normal 1.4-6.5 [facility] Comment on above: Performed By: #### T SH, BNP, HSTROPN, CMP #### [facility] [address] [place] [address] Dr. Jersey Butcher Neutrophils/100 WBC (Bld) 76.5 % Critically high 43.0-75.0 [facility] Comment on above: Performed By: #### T SH, BNP, HSTROPN, CMP #### [facility] [address] [place] [address] Dr. Jersey Butcher Platelet mean volume (Bld) [Entitic vol] 10.1 fL Normal 9.5-13.5 [facility] Comment on above: Performed By: #### T SH, BNP, HSTROPN, CMP #### [facility] [address] [place] [address] Dr. Jersey Butcher PLT 160 103/ul Normal 150-450 [facility] Comment on above: Performed By: #### T SH, BNP, HSTROPN, CMP #### [facility] [address] [place] [address] Dr. Jersey Butcher RBC 4.72 106/ul Normal 4.70-6.10 [facility] Comment on above: Performed By: #### T SH, BNP, HSTROPN, CMP #### [facility] [address] [address] [address] Jersey Butcher WBC 2.2 103/ul Critically low 4.0-11.0 [facility] Comment on above: Performed By: #### T SH, BNP, HSTROPN, CMP #### [facility] [address] [address] [address] Jersey Butcher PROF 14(COMP METB)on 022 Albumin [Mass/Vol] 2.7 g/dL Critically low 3.4-5.0 [facility] Comment on above: Performed By: #### C VDTBH #### [facility] [address] [place] [address] Dr. Jersey Butcher Albumin/Globulin [Mass ratio] 0.7 {ratio} Normal [facility] Comment on above: Performed By: #### C VDTBH #### [facility] [address] [place] [address] Dr. Jersey Butcher ALP [Catalytic activity/Vol] 102 U/L Normal 46-116 [facility] Comment on above: Performed By: #### C VDTBH #### [facility] [address] [place] [address] Dr. Jersey Butcher ALT [Catalytic activity/Vol] 45 U/L Normal 16-63 [facility] Comment on above: Performed By: #### C VDTBH #### [facility] [address] [place] [address] Dr. Jersey Butcher Anion gap [Moles/Vol] 7.4 mmol/L Normal [facility] Comment on above: Performed By: #### C VDTBH #### [facility] [address] [place] [address] Dr. Jersey Butcher AST [Catalytic activity/Vol] 30 U/L Normal 15-37 [facility] Comment on above: Performed By: #### C VDTBH #### [facility] [address] [place] [address] Dr. Jersey Butcher Bilirubin [Mass/Vol] 0.3 mg/dL Normal 0.2-1.0 [facility] Comment on above: Performed By: #### C VDTBH #### [facility] [address] [address] [address] Jersey Butcehr Calcium [Mass/Vol] 8.3 mg/dL Critically low 8.5-10.1 [facility] Comment on above: Performed By: #### C VDTBH #### [facility] [address] [address] [address] Jersey Butcher Chloride [Moles/Vol] 94 mmol/L Critically low 98-107 [facility] Comment on above: Performed By: #### C VDTBH #### [facility] [address] [address] [address] Jersey Butcher CO2 [Moles/Vol] 32.8 mmol/L Critically high 21.0-32.0 [facility] Comment on above: Performed By: #### C VDTBH #### [facility] [address] [place] [address] Dr. Jersey Butcher Creatinine [Mass/Vol] 1.23 mg/dL Normal 0.70-1.30 [facility] Comment on above: Performed By: #### C VDTBH #### [facility] [address] [place] [address] Dr. Jersey Butcher EGFR-AF MICRONESIAN >60 Normal >=[address] [facility] Comment on above: Performed By: #### C VDTBH #### [facility] [address] [address] [address] Jersey Butcher EGFR-NON AF MICRONESIAN 60 mL/min/1.73m2 Normal >=60 [facility] Comment on above: Performed By: #### C VDTBH #### [facility] [address] [address] [address] Jersey Butcher Globulin (S) [Mass/Vol] 3.9 g/dL Normal [facility] Comment on above: Performed By: #### C VDTBH #### [facility] [address] [place] [address] Dr. Jersey Butcher Glucose [Mass/Vol] 314 mg/dL Critically high 74-106 [facility] Comment on above: Performed By: #### C VDTBH #### [facility] [address] [place] [address] Dr. Jersey Butcher Potassium [Moles/Vol] 3.2 mmol/L Critically low 3.5-5.1 [facility] Comment on above: Performed By: #### C VDTBH #### [facility] [address] [place] [address] Dr. Jersey Butcher Protein [Mass/Vol] 6.6 g/dL Normal 6.4-8.2 [facility] Comment on above: Performed By: #### C VDTBH #### [facility] [address] [place] [address] Dr. Jersey Butcher Sodium [Moles/Vol] 131 mmol/L Critically low 136-145 [facility] Comment on above: Performed By: #### C VDTBH #### [facility] [address] [place] [address] Dr. Jersey Butcher Urea nitrogen [Mass/Vol] 20.0 mg/dL Critically high 7.0-18.0 [facility] Comment on above: Performed By: #### C VDTBH #### [facility] [address] [place] [address] Dr. Jersey Butcher Urea nitrogen/Creatinine [Mass ratio] 16.3 mg/mg Normal [facility] Comment on above: Performed By: #### C VDTBH #### [facility] [address] [place] [address] Dr. Jersey Butcher BNPon 06-01-2022 Natriuretic peptide B (Bld) [Mass/Vol] 70.0 pg/mL Normal <=900.0 [facility] Comment on above: Performed By: #### T SH, BNP, HSTROPN, CMP #### [facility] [address] [place] [address] Dr. Jersey Butcher CARDIAC VIDHI 3-6on 2 CK [Catalytic activity/Vol] 193 U/L Normal 39-308 [facility] Comment on above: Performed By: #### T SH, BNP, HSTROPN, CMP #### [facility] [address] [place] [address] Dr. Jersey Butcher CK.MB [Mass/Vol] 2.87 ng/mL Normal <=3.60 The [facility] Comment on above: Performed By: #### T SH, BNP, HSTROPN, CMP #### [facility] [address] [place] [address] Dr. Jersey Butcher HSTROP 11.7 pg/mL Normal 4.0-76.1 [facility] Comment on above: Result Comment: CUT- OFF POINTS HAVE BEEN ESTABLISHED BASED ON THE FOURTH UNIVERSAL DEFINITIONS OF MYOCARDIAL INFARCTION. THE UPPER REFERENCE LIMIT (URL) OF TROPONIN, DEFINED THE 99TH PERCENTILE OF cTnI DISTRIBUTION IN A REFERENCE POPULATION, HAS BEEN CONFIRMED THE DECISION THRESHOLD FOR OR DIAGNOSIS. Performed By: #### T SH, BNP, HSTROPN, CMP #### [facility] [address] [place] [address] Dr. Jersey Butcher CK [Catalytic activity/Vol] 218 U/L Normal 39-308 [facility] Comment on above: Performed By: #### T SH, BNP, HSTROPN, CMP #### [facility] [address] [place] [address] Dr. Jersey Butcher CK.MB [Mass/Vol] 3.01 ng/mL Normal <=3.60 [facility] Comment on above: Performed By: #### T SH, BNP, HSTROPN, CMP #### [facility] [address] [place] [address] Dr. Jersey Butcher HSTROP 13.9 pg/mL Normal 4.0-76.1 [facility] Comment on above: Result Comment: CUT- OFF POINTS HAVE BEEN ESTABLISHED BASED ON THE FOURTH UNIVERSAL DEFINITIONS OF MYOCARDIAL INFARCTION. THE UPPER REFERENCE LIMIT (URL) OF TROPONIN, DEFINED THE 99TH PERCENTILE OF cTnI DISTRIBUTION IN A REFERENCE POPULATION, HAS BEEN CONFIRMED THE DECISION THRESHOLD FOR OR DIAGNOSIS. Performed By: #### T SH, BNP, HSTROPN, CMP #### [facility] [address] [place] [address] Dr. Jersey Butcher CBC W MANUAL DIFFon 06-01-20 22 ATYPICAL LYMPH # Normal [facility] Comment on above: Performed By: #### T SH, BNP, HSTROPN, CMP #### [facility] [address] [address] [address] Jersey Butcher ATYPICAL LYMPH % Normal [facility] Comment on above: Performed By: #### T SH, BNP, HSTROPN, CMP #### [facility] [address] [address] [address] Jersey Butcher BAND # 0.1 103/ul Normal 0.0-0.3 [facility] Comment on above: Performed By: #### T SH, BNP, HSTROPN, CMP #### [facility] [address] [address] [address] Jersey Butcher BAND % 2 % Normal 0-5 [facility] Comment on above: Performed By: #### T SH, BNP, HSTROPN, CMP #### [facility] [address] [place] [address] Dr. Jersey Butcher BASOM # 0.00 103/ul Normal 0.00-0.10 [facility] Comment on above: Performed By: #### T SH, BNP, HSTROPN, CMP #### [facility] [address] [place] [address] Dr. Jersey Butcher BASOM % 0.0 % Critically low 0.2-2.0 [facility] Comment on above: Performed By: #### T SH, BNP, HSTROPN, CMP #### [facility] [address] [place] [address] Dr. Jersey Butcher BLAST # Normal [facility] Comment on above: Performed By: #### T SH, BNP, HSTROPN, CMP #### [facility] [address] [address] [address] Jersey Butcher BLAST % Normal [facility] Comment on above: Performed By: #### T SH, BNP, HSTROPN, CMP #### [facility] [address] [place] [address] Dr. Jersey Butcher CORRECTED WBC Normal 4.0-11.0 [facility] Comment on above: Performed By: #### T SH, BNP, HSTROPN, CMP #### [facility] [address] [address] [address] Jersey Butcher EOS # 0.00 103/ul Normal 0.00-0.70 [facility] Comment on above: Performed By: #### T SH, BNP, HSTROPN, CMP #### [facility] [address] [place] [address] Dr. Jersey Butcher EOS% 0.0 % Critically low 0.9-7.0 [facility] Comment on above: Performed By: #### T SH, BNP, HSTROPN, CMP #### [facility] [address] [place] [address] Dr. Jersey Butcher HCT 45.5 % Normal 42.0-54.0 [facility] Comment on above: Performed By: #### T SH, BNP, HSTROPN, CMP #### [facility] [address] [place] [address] Dr. Jersey Butcher HGB 16.1 g/dl Normal 14.0-18.0 [facility] Comment on above: Performed By: #### T SH, BNP, HSTROPN, CMP #### [facility] [address] [place] [address] Dr. Jersey Butcher LYMPHM # 1.15 103/ul Critically low 1.20-3.80 [facility] Comment on above: Performed By: #### T SH, BNP, HSTROPN, CMP #### [facility] [address] [place] [address] Dr. Jersey Butcher LYMPHM% 25.0 % Normal 20.5-60.0 [facility] Comment on above: Performed By: #### T SH, BNP, HSTROPN, CMP #### [facility] [address] [place] [address] Dr. Jersey Butcher MCH 31.5 pg Normal 25.9-34.0 [facility] Comment on above: Performed By: #### T SH, BNP, HSTROPN, CMP #### [facility] [address] [address] [address] Jersey Butcher MCHC 35.4 g/dl Critically high 29.9-35.2 [facility] Comment on above: Performed By: #### T SH, BNP, HSTROPN, CMP #### [facility] [address] [address] [address] Jersey Butcher MCV 89.0 fL Normal 80.0-94.0 [facility] Comment on above: Performed By: #### T SH, BNP, HSTROPN, CMP #### [facility] [address] [address] [address] Jersey Butcher METAMYELOCYTE # Normal [facility] Comment on above: Performed By: #### T SH, BNP, HSTROPN, CMP #### [facility] [address] [address] [address] Jersey Butcher METAMYELOCYTE % Normal [facility] Comment on above: Performed By: #### T SH, BNP, HSTROPN, CMP #### [facility] [address] [address] [address] Jersey Butcher MONOM# 0.32 103/ul Normal 0.30-0.80 [facility] Comment on above: Performed By: #### T SH, BNP, HSTROPN, CMP #### [facility] [address] [address] [address] Jersey Butcher MONOM% 7.0 % Normal 1.7-12.0 [facility] Comment on above: Performed By: #### T SH, BNP, HSTROPN, CMP #### [facility] [address] [address] [address] Jersey Butcher MPV 10.4 fL Normal 9.5-13.5 [facility] Comment on above: Performed By: #### T SH, BNP, HSTROPN, CMP #### [facility] [address] [address] [address] Jersey Butcher MYELOCYTE # Normal [facility] Comment on above: Performed By: #### T SH, BNP, HSTROPN, CMP #### [facility] [address] [address] [address] Jersey Butcher MYELOCYTE % Normal [facility] Comment on above: Performed By: #### T SH, BNP, HSTROPN, CMP #### [facility] [address] [address] [address] Jersey Butcher NRBC Normal [facility] Comment on above: Performed By: #### T SH, BNP, HSTROPN, CMP #### [facility] [address] [address] [address] Jersey Butcher PLT 195 103/ul Normal 150-450 [facility] Comment on above: Performed By: #### T SH, BNP, HSTROPN, CMP #### [facility] [address] [place] [address] Dr. Jersey Butcher RBC 5.11 106/ul Normal 4.70-6.10 [facility] Comment on above: Performed By: #### T SH, BNP, HSTROPN, CMP #### [facility] [address] [place] [address] Dr. Jersey Butcher RDW 11.6 % Normal 11.0-15.0 [facility] Comment on above: Performed By: #### T SH, BNP, HSTROPN, CMP #### [facility] [address] [place] [address] Dr. Jersey Butcher SEG # 3.04 103/ul Normal 1.40-6.50 [facility] Comment on above: Performed By: #### T SH, BNP, HSTROPN, CMP #### [facility] [address] [place] [address] Dr. Jersey Butcher SEG % 66.0 % Normal 43.0-75.0 [facility] Comment on above: Performed By: #### T SH, BNP, HSTROPN, CMP #### [facility] [address] [address] [address] Jersey Butcher WBC 4.6 103/ul Normal 4.0-11.0 [facility] Comment on above: Performed By: #### T SH, BNP, HSTROPN, CMP #### [facility] [address] [address] [address] Jersey Butcher CTA CHEST WO W [...] by: KESHAWN ALVAREZ Date: 2022-06-01 17:55 Normal [facility] CULTURE BLOODon 06-01-2022 Microscopic examination of blood, culture Culture Observations: NO GROWTH AT 5 DAYS. Normal [facility] Comment on above: Performed By: #### C MADDIE #### [facility] [address] [address] [address] Jersey Butcher Microscopic examination of blood, culture Culture Observations: NO GROWTH AT 5 DAYS. Normal [facility] Comment on above: Performed By: #### C MADDIE #### [facility] [address] [place] [address] Dr. Jersey Butcher [facility] SARS-CoV-2 (COVID-19) RNA PILI+probe Ql (Unsp spec) Not detected Normal NOT DETECTED [facility] Comment on above: Result Comment: When diagnostic [...] for this test is supported by the [place] of Health and Human Service's declaration that [...] used). Performed By: #### D DIM #### [facility] [address] [place] [address] Dr. Jersey Butcher LACTATE/LACTIC ACIDon 2021 Lactate [Moles/Vol] 1.3 mmol/L Normal 0.4-1.9 [facility] Comment on above: Performed By: #### T SH, BNP, HSTROPN, CMP #### [facility] [address] [place] [address] Dr. Jersey Butcher PH VENOUS BLOODon 06-01-2022 PCO2 VENOUS 45.8 mmHg Normal 40.0-52.0 [facility] Comment on above: Performed By: #### C VDTBH #### [facility] [address] [place] [address] Dr. Jersey Butcher pH VENOUS 7.508 Critically high 7.330-7.[address] [facility] Comment on above: Performed By: #### C VDTBH #### [facility] [address] [place] [address] Dr. Jersey Butcher PROF 14(COMP METB)on 022 Albumin [Mass/Vol] 3.1 g/dL Critically low 3.4-5.0 [facility] Comment on above: Performed By: #### T SH, BNP, HSTROPN, CMP #### [facility] [address] [place] [address] Dr. Jersey Butcher Albumin/Globulin [Mass ratio] 0.8 {ratio} Normal [facility] Comment on above: Performed By: #### T SH, BNP, HSTROPN, CMP #### [facility] [address] [place] [address] Dr. Jersey Butcher ALP [Catalytic activity/Vol] 103 U/L Normal 46-116 [facility] Comment on above: Performed By: #### T SH, BNP, HSTROPN, CMP #### [facility] [address] [address] [address] Jersey Butcher ALT [Catalytic activity/Vol] 50 U/L Normal 16-63 [facility] Comment on above: Performed By: #### T SH, BNP, HSTROPN, CMP #### [facility] [address] [place] [address] Dr. Jersey Butcher Anion gap [Moles/Vol] 6.7 mmol/L Normal [facility] Comment on above: Performed By: #### T SH, BNP, HSTROPN, CMP #### [facility] [address] [place] [address] Dr. Jersey Butcher AST [Catalytic activity/Vol] 43 U/L Critically high 15-37 [facility] Comment on above: Performed By: #### T SH, BNP, HSTROPN, CMP #### [facility] [address] [place] [address] Dr. Jersey Butcher Bilirubin [Mass/Vol] 0.7 mg/dL Normal 0.2-1.0 [facility] Comment on above: Performed By: #### T SH, BNP, HSTROPN, CMP #### [facility] [address] [place] [address] Dr. Jersey Butcher Calcium [Mass/Vol] 8.7 mg/dL Normal 8.5-10.1 [facility] Comment on above: Performed By: #### T SH, BNP, HSTROPN, CMP #### [facility] [address] [address] [address] Jersey Butcher Chloride [Moles/Vol] 94 mmol/L Critically low 98-107 [facility] Comment on above: Performed By: #### T SH, BNP, HSTROPN, CMP #### [facility] [address] [address] [address] Jersey Butcher CO2 [Moles/Vol] 35.4 mmol/L Critically high 21.0-32.0 [facility] Comment on above: Performed By: #### T SH, BNP, HSTROPN, CMP #### [facility] [address] [place] [address] Dr. Jersey Butcher Creatinine [Mass/Vol] 1.05 mg/dL Normal 0.70-1.30 [facility] Comment on above: Performed By: #### T SH, BNP, HSTROPN, CMP #### [facility] [address] [address] [address] Jersey Butcher EGFR-AF MICRONESIAN >60 Normal >=[address] [facility] Comment on above: Performed By: #### T SH, BNP, HSTROPN, CMP #### [facility] [address] [place] [address] Dr. Jersey Butcher EGFR-NON AF MICRONESIAN >60 Normal >=60 [facility] Comment on above: Performed By: #### T SH, BNP, HSTROPN, CMP #### [facility] [address] [place] [address] Dr. Jersey Butcher Globulin (S) [Mass/Vol] 3.9 g/dL Normal [facility] Comment on above: Performed By: #### T SH, BNP, HSTROPN, CMP #### [facility] [address] [place] [address] Dr. Jersey Butcher Glucose [Mass/Vol] 116 mg/dL Critically high 74-106 [facility] Comment on above: Performed By: #### T SH, BNP, HSTROPN, CMP #### [facility] [address] [place] [address] Dr. Jersey Butcher Potassium [Moles/Vol] 3.1 mmol/L Critically low 3.5-5.1 [facility] Comment on above: Performed By: #### T SH, BNP, HSTROPN, CMP #### [facility] [address] [place] [address] Dr. Jersey Butcher Protein [Mass/Vol] 7.0 g/dL Normal 6.4-8.2 [facility] Comment on above: Performed By: #### T SH, BNP, HSTROPN, CMP #### [facility] [address] [address] [address] Jersey Butcher Sodium [Moles/Vol] 133 mmol/L Critically low 136-145 [facility] e [facility] Comment on above: Performed By: #### T SH, BNP, HSTROPN, CMP #### [facility] [address] [place] [address] Dr. Jersey Butcher Urea nitrogen [Mass/Vol] 19.0 mg/dL Critically high 7.0-18.0 [facility] Comment on above: Performed By: #### T SH, BNP, HSTROPN, CMP #### [facility] [address] [place] [address] Dr. Jersey Butcher Urea nitrogen/Creatinine [Mass ratio] 18.1 mg/mg Normal [facility] Comment on above: Performed By: #### T SH, BNP, HSTROPN, CMP #### [facility] [address] [place] [address] Dr. Jersey Butcher PROTIMEon 06-01-2022 INR Coag (PPP) [Relative time] 0.95 {INR} Normal [facility] Comment on above: Performed By: #### T SH, BNP, HSTROPN, CMP #### [facility] [address] [place] [address] Dr. Jersey Butcher INR GUIDELINES SEE BELOW Normal [facility] Comment on above: Result Comment: MARCIA RED INR: 2.0 - 3.0 CONDITIONS NOT LISTED BELOW 2.5 - 3.5 FOR PROSTHETIC HEART VALVE REPLACEMENT 2.5 - 3.5 RECURRENT THROMBOSIS Performed By: #### T SH, BNP, HSTROPN, CMP #### [facility] [address] [place] [address] Dr. Jersey Butcher PT Coag (PPP) [Time] 10.3 s Normal 9.0-11.6 [facility] Comment on above: Performed By: #### T SH, BNP, HSTROPN, CMP #### [facility] [address] [place] [address] Dr. Jersey Butcher PTTon 06-01-2022 aPTT Coag (Bld) [Time] 27.1 s Normal 22.3-36.2 [facility] Comment on above: Performed By: #### T SH, BNP, HSTROPN, CMP #### [facility] [address] [place] [address] Dr. Jersey Butcher TROPONIN, HIGH SENSITIVITYon 06-01-2022 HSTROP 14.8 pg/mL Normal 4.0-76.1 [facility] Comment on above: Result Comment: CUT- OFF POINTS HAVE BEEN ESTABLISHED BASED ON THE FOURTH UNIVERSAL DEFINITIONS OF MYOCARDIAL INFARCTION. THE UPPER REFERENCE LIMIT (URL) OF TROPONIN, DEFINED THE 99TH PERCENTILE OF cTnI DISTRIBUTION IN A REFERENCE POPULATION, HAS BEEN CONFIRMED THE DECISION THRESHOLD FOR OR DIAGNOSIS. Performed By: #### T SH, BNP, HSTROPN, CMP #### [facility] [address] [place] [address] Dr. Jersey Butcher TSHon 06-01-2022 TSH 0.358 uIU/mL Normal 0.358-3.740 [facility] Comment on above: Performed By: #### T SH, BNP, HSTROPN, CMP #### [facility] [address] [address] [address] Jersey Butcher [facility]18 SARS-CoV-2 (COVID-19) RNA PILI+probe Ql (Unsp spec) Not detected Normal NOT DETECTED [facility] Comment on above: Result Comment: This test is not yet approved or cleared by the [place] FDA. When there are no FDA-approved or cleared tests available, and other criteria are met, FDA can make tests available under an emergency access mechanism called an Emergency Use Authorization (EUA). The EUA for this test is supported by the [place] of Health and Human Service's (HHS's) declaration [...] #### T SH, BNP, HSTROPN, CMP #### [facility] [address] [place] [address] Dr. Jersey Butcher CARDIAC VIDHI 3-6on 2 CK [Catalytic activity/Vol] 624 U/L Critically high 39-308 [facility] Comment on above: Performed By: #### T SH, BNP, HSTROPN, CMP #### [facility] [address] [place] [address] Dr. Jersey Butcher CK.MB [Mass/Vol] 0.09 ng/mL Normal <=3.60 [facility] Comment on above: Performed By: #### T SH, BNP, HSTROPN, CMP #### [facility] [address] [place] [address] Dr. Jersey Butcher HSTROP 14.9 pg/mL Normal 4.0-76.1 [facility] Comment on above: Result Comment: CUT- OFF POINTS HAVE BEEN ESTABLISHED BASED ON THE FOURTH UNIVERSAL DEFINITIONS OF MYOCARDIAL INFARCTION. THE UPPER REFERENCE LIMIT (URL) OF TROPONIN, DEFINED THE 99TH PERCENTILE OF cTnI DISTRIBUTION IN A REFERENCE POPULATION, HAS BEEN CONFIRMED THE DECISION THRESHOLD FOR OR DIAGNOSIS. Performed By: #### T SH, BNP, HSTROPN, CMP #### [facility] [address] [place] [address] Dr. Jersey Butcher CARDIAC VIDHI ADMITon 022 CK [Catalytic activity/Vol] 659 U/L Critically high 39-308 [facility] Comment on above: Performed By: #### T SH, BNP, HSTROPN, CMP #### [facility] [address] [place] [address] Dr. Jersey Butcher CK.MB [Mass/Vol] 0.16 ng/mL Normal <=3.60 [facility] Comment on above: Performed By: #### T SH, BNP, HSTROPN, CMP #### [facility] [address] [address] [address] Jersey Butcher HSTROP 15.8 pg/mL Normal 4.0-76.1 [facility] Comment on above: Result Comment: CUT- OFF POINTS HAVE BEEN ESTABLISHED BASED ON THE FOURTH UNIVERSAL DEFINITIONS OF MYOCARDIAL INFARCTION. THE UPPER REFERENCE LIMIT (URL) OF TROPONIN, DEFINED THE 99TH PERCENTILE OF cTnI DISTRIBUTION IN A REFERENCE POPULATION, HAS BEEN CONFIRMED THE DECISION THRESHOLD FOR OR DIAGNOSIS. Performed By: #### T SH, BNP, HSTROPN, CMP #### [facility] [address] [address] [address] Jersey Butcher NILDA 266 ng/mL Critically high 16-96 [facility] Comment on above: Performed By: #### T SH, BNP, HSTROPN, CMP #### [facility] [address] [place] [address] Dr. Jersey Butcher CBC AUTO DIFFon 05-26-2022 BASO # 0.0 103/ul Normal 0.0-0.1 [facility] Comment on above: Performed By: #### C MADDIE #### [facility] [address] [address] [address] Jersey Butcher Basophils/100 WBC (Bld) 0.2 % Normal 0.2-2.0 [facility] Comment on above: Performed By: #### C MADDIE #### [facility] [address] [address] [address] Jersey Butcher EO # 0.0 103/ul Normal 0.0-0.7 [facility] Comment on above: Performed By: #### C PHILMAN #### [facility] [address] [address] [address] Jersey Butcher Eosinophils/100 WBC (Bld) 0.3 % Critically low 0.9-7.0 [facility] Comment on above: Performed By: #### C BCMAN #### [facility] [address] [place] [address] Dr. Jersey Butcher Erythrocyte distribution width (RBC) [Ratio] 11.9 % Normal 11.0-15.0 [facility] Comment on above: Performed By: #### C BCROSIE #### [facility] [address] [address] [address] Jersey Butcher Hematocrit (Bld) [Volume fraction] 45.0 % Normal 42.0-54.0 [facility] Comment on above: Performed By: #### C MADDIE #### [facility] [address] [address] [address] Jersey Butcher Hemoglobin (Bld) [Mass/Vol] 15.6 g/dL Normal 14.0-18.0 [facility] Comment on above: Performed By: #### C BCROSIE #### [facility] [address] [address] [address] Jersey Butcher IG # 0.02 10e3/ul Normal 0.00-0.03 [facility] Comment on above: Performed By: #### C MADDIE #### [facility] [address] [address] [address] Jersey Butcher IG % 0.2 % Normal 0.0-0.5 [facility] Comment on above: Performed By: #### C BCROSIE #### [facility] [address] [address] [address] Jersey Butcher LYMPH # 0.4 103/ul Critically low 1.2-3.8 [facility] Comment on above: Performed By: #### C MADDIE #### [facility] [address] [address] [address] Jersey Butcher Lymphocytes/100 WBC (Bld) 3.6 % Critically low 20.5-60.0 [facility] Comment on above: Performed By: #### C BCROSIE #### [facility] [address] [address] [address] Jersey Butcher MANUAL DIFF REQ NO Normal [facility] Comment on above: Performed By: #### C MADDIE #### [facility] [address] [place] [address] Dr. Jersey Butcher MCH (RBC) [Entitic mass] 32.0 pg Normal 25.9-34.0 [facility] Comment on above: Performed By: #### C MADDIE #### [facility] [facility] [address] [address] [address] Jersey Butcher MCHC (RBC) [Mass/Vol] 34.7 g/dL Normal 29.9-35.2 [facility] Comment on above: Performed By: #### C MADDIE #### [facility] [address] [address] [address] Jersey Butcher MCV (RBC) [Entitic vol] 92.2 fL Normal 80.0-94.0 [facility] Comment on above: Performed By: #### C MADDIE #### [facility] [address] [address] [address] Jersey Butcher MONO # 0.8 103/ul Normal 0.3-0.8 [facility] Comment on above: Performed By: #### C MADDIE #### [facility] [address] [address] [address] Jersey Butcher Monocytes/100 WBC (Bld) 6.9 % Normal 1.7-12.0 [facility] Comment on above: Performed By: #### C MADDIE #### [facility] [address] [address] [address] Jersey Butcher NEUT # 10.5 103/ul Critically high 1.4-6.[address] [facility] Comment on above: Performed By: #### C MADDIE #### [facility] [address] [address] [address] Jersey Butcher Neutrophils/100 WBC (Bld) 88.8 % Critically high 43.0-75.0 [facility] Comment on above: Performed By: #### C MADDIE #### [facility] [address] [address] [address] Jersey Butcher Platelet mean volume (Bld) [Entitic vol] 10.1 fL Normal 9.5-13.5 [facility] Comment on above: Performed By: #### C MADDIE #### [facility] [address] [address] [address] Jersey Butcher PLT 273 103/ul Normal 150-450 [facility] Comment on above: Performed By: #### C MADDIE #### [facility] [address] [address] [address] Jersey Butcher RBC 4.88 106/ul Normal 4.70-6.10 [facility] Comment on above: Performed By: #### C MADDIE #### [facility] [address] [place], [place] [address] Dr. Jersey Butcher WBC 11.8 103/ul Critically high 4.0-11.[address] [facility] Comment on above: Performed By: #### C MADDIE #### [facility] [address] [place], [place] [address] Dr. Jersey Butcher Covid-19 PCR ([facility])on SARS-CoV-2 (COVID-19) RNA PILI+probe Ql (Unsp spec) Not detected Normal NOT DETECTED [facility] Comment on above: Result Comment: When diagnostic [...] for this test is supported by the [place] of Health and Human Service's declaration that [...] #### T SH, BNP, HSTROPN, CMP #### [facility] [address] [place], [place] [address] Dr. Jersey Butcher INFLUENZA A AND B AGon 05-26 INFLUANEGH SEE BELOW Normal [facility] Comment on above: Result Comment: Nega tive for Flu A protein angiten. Infection due to Flu A cannot be ruled out. Flu A angiten in the sample may be below the detection limit of the test. Performed By: #### T SH, BNP, HSTROPN, CMP #### [facility] [address] [place] [address] Dr. Jersey Butcher [facility] SEE BELOW Normal [facility] Comment on above: Result Comment: Nega tive for Flu B protein antigen. Infection due to Flu B cannot be ruled out. Flu B antigen in the sample may be below the detection limit of the test. Performed By: #### T SH, BNP, HSTROPN, CMP #### [facility] [address] [place] [address] Dr. Jersey Butcher INFLUENZA A AG Negative Normal NEGATIVE SEE COMMENT [facility] Comment on above: Performed By: #### T SH, BNP, HSTROPN, CMP #### [facility] [address] [place] [address] Dr. Jersey Butcher INFLUENZA B AG Negative Normal NEGATIVE SEE COMMENT [facility] Comment on above: Performed By: #### T SH, BNP, HSTROPN, CMP #### [facility] [address] [place] [address] Dr. Jersey Butcher INTERNAL CONTROLS Within Normal Limits Normal Wi thin Normal Limits [facility] Comment on above: Performed By: #### T SH, BNP, HSTROPN, CMP #### [facility] [address] [place] [address] Dr. Jersey Butcher LACTATE/LACTIC ACIDon 2021 Lactate [Moles/Vol] 1.8 mmol/L Normal 0.4-1.9 [facility] Comment on above: Performed By: #### T SH, BNP, HSTROPN, CMP #### [facility] [address] [place] [address] Dr. Jersey Butcher PROF CHEM 8 (BAS METB)on Anion gap [Moles/Vol] 7.1 mmol/L Normal [facility] Comment on above: Performed By: #### T SH, BNP, HSTROPN, CMP #### [facility] [address] [place] [address] Dr. Jersey Butcher Calcium [Mass/Vol] 8.9 mg/dL Normal 8.5-10.1 [facility] Comment on above: Performed By: #### T SH, BNP, HSTROPN, CMP #### [facility] [address] [address] [address] Jersey Butcher Chloride [Moles/Vol] 95 mmol/L Critically low 98-107 [facility] Comment on above: Performed By: #### T SH, BNP, HSTROPN, CMP #### [facility] [address] [address] [address] Jersey Butcher CO2 [Moles/Vol] 33.2 mmol/L Critically high 21.0-32.0 [facility] Comment on above: Performed By: #### T SH, BNP, HSTROPN, CMP #### [facility] [address] [place] [address] Dr. Jersey Butcher Creatinine [Mass/Vol] 1.19 mg/dL Normal 0.70-1.30 [facility] Comment on above: Performed By: #### T SH, BNP, HSTROPN, CMP #### [facility] [address] [address] [address] Jersey Butcher EGFR-AF MICRONESIAN >60 Normal >=[address] [facility] Comment on above: Performed By: #### T SH, BNP, HSTROPN, CMP #### [facility] [address] [place] [address] Dr. Jersey Butcher EGFR-NON AF MICRONESIAN >60 Normal >=60 [facility] Comment on above: Performed By: #### T SH, BNP, HSTROPN, CMP #### [facility] [address] [address] [address] Jersey Butcher Glucose [Mass/Vol] 135 mg/dL Critically high 74-106 [facility] Comment on above: Performed By: #### T SH, BNP, HSTROPN, CMP #### [facility] [address] [place] [address] Dr. Jersey Butcher Potassium [Moles/Vol] 3.3 mmol/L Critically low 3.5-5.1 [facility] Comment on above: Performed By: #### T SH, BNP, HSTROPN, CMP #### [facility] [address] [address] [address] Jersey Butcher Sodium [Moles/Vol] 132 mmol/L Critically low 136-145 [facility] Comment on above: Performed By: #### T SH, BNP, HSTROPN, CMP #### [facility] [address] [place] [address] Dr. Jersey Butcher Urea nitrogen [Mass/Vol] 18.0 mg/dL Normal 7.0-18.0 [facility] Comment on above: Performed By: #### T SH, BNP, HSTROPN, CMP #### [facility] [address] [place] [address] Dr. Jersey Butcher Urea nitrogen/Creatinine [Mass ratio] 15.1 mg/mg Normal [facility] Comment on above: Performed By: #### T SH, BNP, HSTROPN, CMP #### [facility] [address] [place] [address] Dr. Jersey Butcher RSVon 05-26-2022 RSV AG Negative Normal NEGATIVE [facility] Comment on above: Performed By: #### T SH, BNP, HSTROPN, CMP #### [facility] [address] [place] [address] Dr. Jersey Butcher XR CHEST 1 Von [...] MARLENE ARAMBULA Date: 2022-05-26 00:45 Normal [facility] BNPon 05-20-2022 Natriuretic peptide B (Bld) [Mass/Vol] 137.0 pg/mL Normal <=900.0 [facility] Comment on above: Performed By: #### C VDTBH #### [facility] [address] [address] [address] Jersey Butcher CARDIAC VIDHI 3-6on 2 CK [Catalytic activity/Vol] 139 U/L Normal 39-308 [facility] Comment on above: Performed By: #### C VDTBH #### [facility] [address] [place] [address] Dr. Jersey Butcher CK.MB [Mass/Vol] 2.85 ng/mL Normal <=3.[address] [facility] Comment on above: Performed By: #### C VDTBH #### [facility] [address] [place] [address] Dr. Jersey Butcher HSTROP 78.1 pg/mL Critically high 4.0-76.1 [facility] Comment on above: Result Comment: CUT- OFF POINTS HAVE BEEN ESTABLISHED BASED ON THE FOURTH UNIVERSAL DEFINITIONS OF MYOCARDIAL INFARCTION. THE UPPER REFERENCE LIMIT (URL) OF TROPONIN, DEFINED THE 99TH PERCENTILE OF cTnI DISTRIBUTION IN A REFERENCE POPULATION, HAS BEEN CONFIRMED THE DECISION THRESHOLD FOR OR DIAGNOSIS. Performed By: #### C VDTBH #### [facility] [address] [place] [address] Dr. Jersey Butcher CK [Catalytic activity/Vol] 159 U/L Normal 39-308 [facility] Comment on above: Performed By: #### T SH, BNP, HSTROPN, CMP #### [facility] [address] [address] [address] Jersey Butcher CK.MB [Mass/Vol] 3.45 ng/mL Normal <=3.60 [facility] Comment on above: Performed By: #### T SH, BNP, HSTROPN, CMP #### [facility] [address] [place] [address] Dr. Jersey Butcher HSTROP 84.8 pg/mL Critically high 4.0-76.1 [facility] Comment on above: Result Comment: CUT- OFF POINTS HAVE BEEN ESTABLISHED BASED ON THE FOURTH UNIVERSAL DEFINITIONS OF MYOCARDIAL INFARCTION. THE UPPER REFERENCE LIMIT (URL) OF TROPONIN, DEFINED THE 99TH PERCENTILE OF cTnI DISTRIBUTION IN A REFERENCE POPULATION, HAS BEEN CONFIRMED THE DECISION THRESHOLD FOR OR DIAGNOSIS. Performed By: #### T SH, BNP, HSTROPN, CMP #### [facility] [address] [place] [address] Dr. Jersey Butcher CARDIAC VIDHI ADMITon 022 CK [Catalytic activity/Vol] 170 U/L Normal 39-308 [facility] Comment on above: Performed By: #### C VDTBH #### [facility] [address] [place] [address] Dr. Jersey Butcher CK.MB [Mass/Vol] 2.94 ng/mL Normal <=3.60 [facility] Comment on above: Performed By: #### C VDTBH #### [facility] [address] [place] [address] Dr. Jersey Butcher HSTROP 82.2 pg/mL Critically high 4.0-76.1 [facility] Comment on above: Result Comment: CUT- OFF POINTS HAVE BEEN ESTABLISHED BASED ON THE FOURTH UNIVERSAL DEFINITIONS OF MYOCARDIAL INFARCTION. THE UPPER REFERENCE LIMIT (URL) OF TROPONIN, DEFINED THE 99TH PERCENTILE OF cTnI DISTRIBUTION IN A REFERENCE POPULATION, HAS BEEN CONFIRMED THE DECISION THRESHOLD FOR OR DIAGNOSIS. Performed By: #### C VDTBH #### [facility] [address] [place] [address] Dr. Jersey Butcher NILDA 72 ng/mL Normal 16-96 [facility] Comment on above: Performed By: #### C VDTBH #### [facility] [address] [place] [address] Dr. Jersey Butcher CBC AUTO DIFFon 05-20-2022 BASO # 0.0 103/ul Normal 0.0-0.1 [facility] Comment on above: Performed By: #### C BC #### [facility] [address] [place] [address] Dr. Jersey Butcher Basophils/100 WBC (Bld) 0.3 % Normal 0.2-2.0 [facility] Comment on above: Performed By: #### C BC #### [facility] [address] [place] [address] Dr. Jersey Butcher EO # 0.1 103/ul Normal 0.0-0.7 [facility] Comment on above: Performed By: #### C BC #### [facility] [address] [place] [address] Dr. Jersey Butcher Eosinophils/100 WBC (Bld) 1.8 % Normal 0.9-7.0 [facility] Comment on above: Performed By: #### C BC #### [facility] [address] [place] [address] Dr. Jersey Butcher Erythrocyte distribution width (RBC) [Ratio] 11.9 % Normal 11.0-15.0 [facility] Comment on above: Performed By: #### C BC #### [facility] [address] [place] [address] Dr. Jersey Butcher Hematocrit (Bld) [Volume fraction] 43.5 % Normal 42.0-54.0 [facility] Comment on above: Performed By: #### C BC #### [facility] [address] [place] [address] Dr. Jersey Butcher Hemoglobin (Bld) [Mass/Vol] 15.4 g/dL Normal 14.0-18.0 [facility] Comment on above: Performed By: #### C BC #### [facility] [address] [place] [address] Dr. Jersey Butcher IG # 0.01 10e3/ul Normal 0.00-0.03 [facility] Comment on above: Performed By: #### C BC #### [facility] [address] [place] [address] Dr. Jersey Butcher IG % 0.2 % Normal 0.0-0.5 [facility] Comment on above: Performed By: #### C BC #### [facility] [address] [place] [address] Dr. Jersey Butcher LYMPH # 1.4 103/ul Normal 1.2-3.8 [facility] Comment on above: Performed By: #### C BC #### [facility] [address] [place] [address] Dr. Jersey Butcher Lymphocytes/100 WBC (Bld) 21.0 % Normal 20.5-60.0 [facility] Comment on above: Performed By: #### C BC #### [facility] [address] [place] [address] Dr. Jersey Butcher MANUAL DIFF REQ NO Normal [facility] Comment on above: Performed By: #### C BC #### [facility] [address] [place] [address] Dr. Jersey Butcher MCH (RBC) [Entitic mass] 32.2 pg Normal 25.9-34.0 [facility] Comment on above: Performed By: #### C BC #### [facility] [address] [place] [address] Dr. Jersey Butcher MCHC (RBC) [Mass/Vol] 35.4 g/dL Critically high 29.9-35.2 [facility] Comment on above: Performed By: #### C BC #### [facility] [address] [place] [address] Dr. Jersey Butcher MCV (RBC) [Entitic vol] 91.0 fL Normal 80.0-94.0 [facility] Comment on above: Performed By: #### C BC #### [facility] [address] [place] [address] Dr. Jersey Butcher MONO # 1.0 103/ul Critically high 0.3-0.8 [facility] Comment on above: Performed By: #### C BC #### [facility] [address] [place] [address] Dr. Jersey Butcher Monocytes/100 WBC (Bld) 14.9 % Critically high 1.7-12.0 [facility] Comment on above: Performed By: #### C BC #### [facility] [address] [place] [address] Dr. Jersey Butcher NEUT # 4.0 103/ul Normal 1.4-6.5 [facility] Comment on above: Performed By: #### C BC #### [facility] [address] [place] [address] Dr. Jersey Butcher Neutrophils/100 WBC (Bld) 61.8 % Normal 43.0-75.0 [facility] Comment on above: Performed By: #### C BC #### [facility] [address] [place] [address] Dr. Jersey Butcher Platelet mean volume (Bld) [Entitic vol] 9.7 fL Normal 9.5-13.5 [facility] Comment on above: Performed By: #### C BC #### [facility] [address] [place] [address] Dr. Jersey Butcher PLT 246 103/ul Normal 150-450 [facility] Comment on above: Performed By: #### C BC #### [facility] [address] [place] [address] Dr. Jersey Butcher RBC 4.78 106/ul Normal 4.70-6.10 [facility] Comment on above: Performed By: #### C BC #### [facility] [address] [place] [address] Dr. Jersey Butcher WBC 6.5 103/ul Normal 4.0-11.0 [facility] Comment on above: Performed By: #### C BC #### [facility] [address] [place] [address] Dr. Jersey Butcher BASO # 0.0 103/ul Normal 0.0-0.1 [facility] Comment on above: Performed By: #### C BC #### [facility] [address] [place] [address] Dr. Jersey Butcher Basophils/100 WBC (Bld) 0.3 % Normal 0.2-2.0 [facility] Comment on above: Performed By: #### C BC #### [facility] [address] [place] [address] Dr. Jersey Butcher EO # 0.1 103/ul Normal 0.0-0.7 [facility] Comment on above: Performed By: #### C BC #### [facility] [address] [place] [address] Dr. Jersey Butcher Eosinophils/100 WBC (Bld) 1.4 % Normal 0.9-7.0 [facility] Comment on above: Performed By: #### C BC #### [facility] [address] [place] [address] Dr. Jersey Butcher Erythrocyte distribution width (RBC) [Ratio] 11.9 % Normal 11.0-15.0 [facility] Comment on above: Performed By: #### C BC #### [facility] [address] [place] [address] Dr. Jersey Butcher Hematocrit (Bld) [Volume fraction] 42.5 % Normal 42.0-54.0 [facility] Comment on above: Performed By: #### C BC #### [facility] [address] [place] [address] Dr. Jersey Butcher Hemoglobin (Bld) [Mass/Vol] 14.7 g/dL Normal 14.0-18.0 [facility] Comment on above: Performed By: #### C BC #### [facility] [address] [place] [address] Dr. Jersey Butcher IG # 0.02 10e3/ul Normal 0.00-0.03 [facility] Comment on above: Performed By: #### C BC #### [facility] [address] [place] [address] Dr. Jersey Butcher IG % 0.3 % Normal 0.0-0.5 [facility] Comment on above: Performed By: #### C BC #### [facility] [address] [place] [address] Dr. Jersey Butcher LYMPH # 2.0 103/ul Normal 1.2-3.8 [facility] Comment on above: Performed By: #### C BC #### [facility] [address] [place] [address] Dr. Jersey Butcher Lymphocytes/100 WBC (Bld) 28.9 % Normal 20.5-60.0 [facility] Comment on above: Performed By: #### C BC #### [facility] [address] [place] [address] Dr. Jersey Butcher MANUAL DIFF REQ NO Normal [facility] Comment on above: Performed By: #### C BC #### [facility] [address] [place] [address] Dr. Jersey Butcher MCH (RBC) [Entitic mass] 31.8 pg Normal 25.9-34.0 [facility] Comment on above: Performed By: #### C BC #### [facility] [address] [place] [address] Dr. Jersey Butcher MCHC (RBC) [Mass/Vol] 34.6 g/dL Normal 29.9-35.2 [facility] Comment on above: Performed By: #### C BC #### [facility] [address] [place] [address] Dr. Jersey Butcher MCV (RBC) [Entitic vol] 92.0 fL Normal 80.0-94.0 [facility] Comment on above: Performed By: #### C BC #### [facility] [address] [place] [address] Dr. Jersey Butcher MONO # 1.1 103/ul Critically high 0.3-0.8 [facility] Comment on above: Performed By: #### C BC #### [facility] [address] [place] [address] Dr. Jersey Butcher Monocytes/100 WBC (Bld) 15.3 % Critically high 1.7-12.0 [facility] Comment on above: Performed By: #### C BC #### [facility] [address] [place] [address] Dr. Jersey Butcher NEUT # 3.7 103/ul Normal 1.4-6.5 [facility] Comment on above: Performed By: #### C BC #### [facility] [address] [place] [address] Dr. Jersey Butcher Neutrophils/100 WBC (Bld) 53.8 % Normal 43.0-75.0 [facility] Comment on above: Performed By: #### C BC #### [facility] [address] [place] [address] Dr. Jersey Butcher Platelet mean volume (Bld) [Entitic vol] 9.9 fL Normal 9.5-13.5 [facility] Comment on above: Performed By: #### C BC #### [facility] [address] [place] [address] Dr. Jersey Butcher PLT 268 103/ul Normal 150-450 [facility] Comment on above: Performed By: #### C BC #### [facility] [address] [place] [address] Dr. Jersey Butcher RBC 4.62 106/ul Critically low 4.70-6.10 [facility] Comment on above: Performed By: #### C BC #### [facility] [address] [place] [address] Dr. Jersey Butcher WBC 7.0 103/ul Normal 4.0-11.0 [facility] Comment on above: Performed By: #### C BC #### [facility] [address] [place] [address] Dr. Jersey Butcher [facility]on SARS-CoV-2 (COVID-19) RNA PILI+probe Ql (Unsp spec) Not detected Normal NOT DETECTED [facility] Comment on above: Result Comment: When diagnostic [...] for this test is supported by the [place] of Health and Human Service's declaration that [...] #### T SH, BNP, HSTROPN, CMP #### [facility] [address] [place] [address] Dr. Jersey Butcher D-DIMERon 05-20-2022 D-DIMER 0.57 mg/L FEU Normal <=0.59 [facility] Comment on above: Performed By: #### D DIM #### [facility] [address] [place] [address] Dr. Jersey Butcher D-DIMER COMMENTS SEE BELOW Normal [facility] Comment on above: Result Comment: Incr eases [...] hospitalization. Performed By: #### D DIM #### [facility] [address] [place] [address] Dr. Jersey Butcher PROF CHEM 8 (BAS METB)on Anion gap [Moles/Vol] 6.5 mmol/L Normal [facility] Comment on above: Performed By: #### C BCMAN #### [facility] [address] [place] [address] Dr. Jersey Butcher Calcium [Mass/Vol] 8.8 mg/dL Normal 8.5-10.1 [facility] Comment on above: Performed By: #### C BCMAN #### [facility] [address] [place] [address] Dr. Jersey Butcher Chloride [Moles/Vol] 99 mmol/L Normal 98-107 [facility] Comment on above: Performed By: #### C BCMAN #### [facility] [address] [place] [address] Dr. Jersey Butcher CO2 [Moles/Vol] 35.8 mmol/L Critically high 21.0-32.0 [facility] Comment on above: Performed By: #### C BCMAN #### [facility] [address] [place] [address] Dr. Jersey Butcher Creatinine [Mass/Vol] 0.84 mg/dL Normal 0.70-1.30 [facility] Comment on above: Performed By: #### C MADDIE #### [facility] [address] [address] [address] Jersey Butcher EGFR-AF MICRONESIAN >60 Normal >=[address] [facility] Comment on above: Performed By: #### C MADDIE #### [facility] [address] [address] [address] Jersey Butcher EGFR-NON AF MICRONESIAN >60 Normal >=60 [facility] Comment on above: Performed By: #### C PHILMAN #### [facility] [address] [address] [address] Jersey Butcher Glucose [Mass/Vol] 108 mg/dL Critically high 74-106 [facility] Comment on above: Performed By: #### C MADDIE #### [facility] [address] [address] [address] Jersey Butcher Potassium [Moles/Vol] 3.3 mmol/L Critically low 3.5-5.1 [facility] Comment on above: Performed By: #### C MADDIE #### [facility] [address] [address] [address] Jersey Butcher Sodium [Moles/Vol] 138 mmol/L Normal 136-145 [facility] Comment on above: Performed By: #### C MADDIE #### [facility] [address] [place] [address] Dr. Jersey Butcher Urea nitrogen [Mass/Vol] 17.0 mg/dL Normal 7.0-18.0 [facility] Comment on above: Performed By: #### C MADDIE #### [facility] [address] [address] [address] Jersey Butcher Urea nitrogen/Creatinine [Mass ratio] 20.2 mg/mg Normal [facility] Comment on above: Performed By: #### C MADDIE #### [facility] [address] [address] [address] Jersey Butcher Anion gap [Moles/Vol] 6.8 mmol/L Normal [facility] Comment on above: Performed By: #### C VDTBH #### [facility] [address] [address] [address] Jersey Butcher Calcium [Mass/Vol] 8.8 mg/dL Normal 8.5-10.1 [facility] Comment on above: Performed By: #### C VDTBH #### [facility] [address] [address] [address] Jersey Butcher Chloride [Moles/Vol] 98 mmol/L Normal 98-107 [facility] Comment on above: Performed By: #### C VDTBH #### [facility] [address] [place] [address] Dr. Jersey Butcher CO2 [Moles/Vol] 35.5 mmol/L Critically high 21.0-32.0 [facility] Comment on above: Performed By: #### C VDTBH #### [facility] [address] [place] [address] Dr. Jersey Butcher Creatinine [Mass/Vol] 0.95 mg/dL Normal 0.70-1.30 [facility] Comment on above: Performed By: #### C VDTBH #### [facility] [address] [place] [address] Dr. Jersey Butcher EGFR-AF MICRONESIAN >60 Normal >=60 [facility] Comment on above: Performed By: #### C VDTBH #### [facility] [address] [place] [address] Dr. Jersey Butcher EGFR-NON AF MICRONESIAN >60 Normal >=60 [facility] Comment on above: Performed By: #### C VDTBH #### [facility] [address] [place] [address] Dr. Jersey Butcher Glucose [Mass/Vol] 96 mg/dL Normal 74-106 [facility] Comment on above: Performed By: #### C VDTBH #### [facility] [address] [place] [address] Dr. Jersey Butcher Potassium [Moles/Vol] 3.3 mmol/L Critically low 3.5-5.1 [facility] Comment on above: Performed By: #### C VDTBH #### [facility] [address] [address] [address] Jersey Butcher Sodium [Moles/Vol] 137 mmol/L Normal 136-145 [facility] Comment on above: Performed By: #### C VDTBH #### [facility] [address] [address] [address] Jersey Butcher Urea nitrogen [Mass/Vol] 21.0 mg/dL Critically high 7.0-18.0 [facility] Comment on above: Performed By: #### C VDTBH #### [facility] [address] [address] [address] Jersey Butcher Urea nitrogen/Creatinine [Mass ratio] 22.1 mg/mg Normal [facility] Comment on above: Performed By: #### C VDTBH #### [facility] [address] [place] [address] Dr. Jersey Butcher TROPONIN, HIGH SENSITIVITYon 05-20-2022 HSTROP 56.7 pg/mL Normal 4.0-76.1 [facility] Comment on above: Result Comment: CUT- OFF POINTS HAVE BEEN ESTABLISHED BASED ON THE FOURTH UNIVERSAL DEFINITIONS OF MYOCARDIAL INFARCTION. THE UPPER REFERENCE LIMIT (URL) OF TROPONIN, DEFINED THE 99TH PERCENTILE OF cTnI DISTRIBUTION IN A REFERENCE POPULATION, HAS BEEN CONFIRMED THE DECISION THRESHOLD FOR OR DIAGNOSIS. Performed By: #### C VDTBH #### [facility] [address] [place] [address] Dr. Jersey Butcher HSTROP 78.4 pg/mL Critically high 4.0-76.1 [facility] Comment on above: Result Comment: CUT- OFF POINTS HAVE BEEN ESTABLISHED BASED ON THE FOURTH UNIVERSAL DEFINITIONS OF MYOCARDIAL INFARCTION. THE UPPER REFERENCE LIMIT (URL) OF TROPONIN, DEFINED THE 99TH PERCENTILE OF cTnI DISTRIBUTION IN A REFERENCE POPULATION, HAS BEEN CONFIRMED THE DECISION THRESHOLD FOR OR DIAGNOSIS. Performed By: #### C BCMAN #### [facility] [address] [place] [address] Dr. Jersey Butcher HSTROP 85.4 pg/mL Critically high 4.0-76.1 [facility] Comment on above: Result Comment: CUT- OFF POINTS HAVE BEEN ESTABLISHED BASED ON THE FOURTH UNIVERSAL DEFINITIONS OF MYOCARDIAL INFARCTION. THE UPPER REFERENCE LIMIT (URL) OF TROPONIN, DEFINED THE 99TH PERCENTILE OF cTnI DISTRIBUTION IN A REFERENCE POPULATION, HAS BEEN CONFIRMED THE DECISION THRESHOLD FOR OR DIAGNOSIS. Performed By: #### C BCMAN #### [facility] [address] [place] [address] Dr. Jersey Butcher XR CHEST 1 Von [...] SANDEEP MARY Date: 2022-05-20 00:59 Normal [facility] CBC AUTO DIFFon 02-04-2022 BASO # 0.0 103/ul Normal 0.0-0.1 [facility] Comment on above: Performed By: #### T SH, BNP, HSTROPN, CMP #### [facility] [address] [place] [address] Dr. Jersey Butcher Basophils/100 WBC (Bld) 0.2 % Normal 0.2-2.0 [facility] Comment on above: Performed By: #### T SH, BNP, HSTROPN, CMP #### [facility] [address] [address] [address] Jersey Butcher EO # 0.0 103/ul Normal 0.0-0.7 [facility] Comment on above: Performed By: #### T SH, BNP, HSTROPN, CMP #### [facility] [address] [address] [address] Jeresy Butcher Eosinophils/100 WBC (Bld) 0.4 % Critically low 0.9-7.0 [facility] Comment on above: Performed By: #### T SH, BNP, HSTROPN, CMP #### [facility] [address] [place] [address] Dr. Jersey Butcher Erythrocyte distribution width (RBC) [Ratio] 12.4 % Normal 11.0-15.0 [facility] Comment on above: Performed By: #### T SH, BNP, HSTROPN, CMP #### [facility] [address] [place] [address] Dr. Jersey Butcher Hematocrit (Bld) [Volume fraction] 41.9 % Critically low 42.0-54.0 [facility] Comment on above: Performed By: #### T SH, BNP, HSTROPN, CMP #### [facility] [address] [place] [address] Dr. Jersey Butcher Hemoglobin (Bld) [Mass/Vol] 14.5 g/dL Normal 14.0-18.0 [facility] Comment on above: Performed By: #### T SH, BNP, HSTROPN, CMP #### [facility] [address] [place] [address] Dr. Jersey Butcher IG # 0.02 10e3/ul Normal 0.00-0.03 [facility] Comment on above: Performed By: #### T SH, BNP, HSTROPN, CMP #### [facility] [address] [place] [address] Dr. Jersey Butcher IG % 0.2 % Normal 0.0-0.5 [facility] Comment on above: Performed By: #### T SH, BNP, HSTROPN, CMP #### [facility] [address] [place] [address] Dr. Jersey Butcher LYMPH # 0.9 103/ul Critically low 1.2-3.8 [facility] Comment on above: Performed By: #### T SH, BNP, HSTROPN, CMP #### [facility] [address] [place] [address] Dr. Jersey Butcher Lymphocytes/100 WBC (Bld) 10.2 % Critically low 20.5-60.0 [facility] Comment on above: Performed By: #### T SH, BNP, HSTROPN, CMP #### [facility] [address] [place] [address] Dr. Jersey Butcher MANUAL DIFF REQ NO Normal [facility] Comment on above: Performed By: #### T SH, BNP, HSTROPN, CMP #### [facility] [address] [place] [address] Dr. Jersey Butcher MCH (RBC) [Entitic mass] 32.3 pg Normal 25.9-34.0 [facility] Comment on above: Performed By: #### T SH, BNP, HSTROPN, CMP #### [facility] [address] [place] [address] Dr. Jersey Butcher MCHC (RBC) [Mass/Vol] 34.6 g/dL Normal 29.9-35.2 [facility] Comment on above: Performed By: #### T SH, BNP, HSTROPN, CMP #### [facility] [address] [place] [address] Dr. Jersey Butcher MCV (RBC) [Entitic vol] 93.3 fL Normal 80.0-94.0 [facility] Comment on above: Performed By: #### T SH, BNP, HSTROPN, CMP #### [facility] [address] [place] [address] Dr. Jresey Butcher MONO # 0.8 103/ul Normal 0.3-0.8 [facility] Comment on above: Performed By: #### T SH, BNP, HSTROPN, CMP #### [facility] [address] [place] [address] Dr. Jersey Butcher Monocytes/100 WBC (Bld) 9.4 % Normal 1.7-12.0 [facility] Comment on above: Performed By: #### T SH, BNP, HSTROPN, CMP #### [facility] [address] [place] [address] Dr. Jersey Butcher NEUT # 6.6 103/ul Critically high 1.4-6.5 [facility] Comment on above: Performed By: #### T SH, BNP, HSTROPN, CMP #### [facility] [address] [place] [address] Dr. Jersey Butcher Neutrophils/100 WBC (Bld) 79.6 % Critically high 43.0-75.0 [facility] Comment on above: Performed By: #### T SH, BNP, HSTROPN, CMP #### [facility] [address] [place] [address] Dr. Jersey Butcher Platelet mean volume (Bld) [Entitic vol] 10.1 fL Normal 9.5-13.5 [facility] Comment on above: Performed By: #### T SH, BNP, HSTROPN, CMP #### [facility] [address] [place] [address] Dr. Jersey Butcher PLT 227 103/ul Normal 150-450 [facility] Comment on above: Performed By: #### T SH, BNP, HSTROPN, CMP #### [facility] [address] [place] [address] Dr. Jersey Butcher RBC 4.49 106/ul Critically low 4.70-6.10 [facility] Comment on above: Performed By: #### T SH, BNP, HSTROPN, CMP #### [facility] [address] [place] [address] Dr. Jersey Butcher WBC 8.3 103/ul Normal 4.0-11.0 [facility] Comment on above: Performed By: #### T SH, BNP, HSTROPN, CMP #### [facility] [address] [place] [address] Dr. Jersey Butcher [facility]17 SARS-CoV-2 (COVID-19) RNA PILI+probe Ql (Unsp spec) Detected Critically abnormal NOT DETECTED [facility] Comment on above: Result Comment: This test is not yet approved or cleared by the [place] FDA. When there are no FDA-approved or cleared tests available, and other criteria are met, FDA can make tests available under an emergency access mechanism called an Emergency Use Authorization (EUA). The EUA for this test is supported by the [place] of Health and Human Service's declaration that [...] used). Performed By: #### C VDTB #### [facility] [address] [place] [address] Dr. Jersey Butcher INFLUENZA A AND B AGon 02-04 INFLUENZA A AG Negative Normal NEGATIVE SEE COMMENT [facility] Comment on above: Performed By: #### C MADDIE #### [facility] [address] [place] [address] Dr. Jersey Butcher INFLUENZA B AG Negative Normal NEGATIVE SEE COMMENT [facility] Comment on above: Performed By: #### C MADDIE #### [facility] [address] [place] [address] Dr. Jersey Butcher INTERNAL CONTROLS Within Normal Limits Normal Wi thin Normal Limits [facility] Comment on above: Performed By: #### C MADDIE #### [facility] [address] [place] [address] Dr. Jersey Butcher PROF CHEM 8 (BAS METB)on Anion gap [Moles/Vol] 5.9 mmol/L Normal [facility] Comment on above: Performed By: #### T SH, BNP, HSTROPN, CMP #### [facility] [address] [place] [address] Dr. Jersey Butcher Calcium [Mass/Vol] 8.5 mg/dL Normal 8.5-10.1 [facility] Comment on above: Performed By: #### T SH, BNP, HSTROPN, CMP #### [facility] [address] [place] [address] Dr. Jersey Butcher Chloride [Moles/Vol] 96 mmol/L Critically low 98-107 [facility] Comment on above: Performed By: #### T SH, BNP, HSTROPN, CMP #### [facility] [address] [place] [address] Dr. Jersey Butcher CO2 [Moles/Vol] 33.4 mmol/L Critically high 21.0-32.0 [facility] Comment on above: Performed By: #### T SH, BNP, HSTROPN, CMP #### [facility] [address] [address] [address] Jersey Butcher Creatinine [Mass/Vol] 1.17 mg/dL Normal 0.70-1.30 [facility] Comment on above: Performed By: #### T SH, BNP, HSTROPN, CMP #### [facility] [address] [place] [address] Dr. Jersey Butcher EGFR-AF MICRONESIAN >60 Normal >=[address] [facility] Comment on above: Performed By: #### T SH, BNP, HSTROPN, CMP #### [facility] [address] [place] [address] Dr. Jersey Butcher EGFR-NON AF MICRONESIAN >60 Normal >=60 [facility] Comment on above: Performed By: #### T SH, BNP, HSTROPN, CMP #### [facility] [address] [place] [address] Dr. Jersey Butcher Glucose [Mass/Vol] 141 mg/dL Critically high 74-106 [facility] Comment on above: Performed By: #### T SH, BNP, HSTROPN, CMP #### [facility] [address] [place] [address] Dr. Jersey Butcher Potassium [Moles/Vol] 3.3 mmol/L Critically low 3.5-5.1 [facility] Comment on above: Performed By: #### T SH, BNP, HSTROPN, CMP #### [facility] [address] [place] [address] Dr. Jersey Butcher Sodium [Moles/Vol] 132 mmol/L Critically low 136-145 [facility] Comment on above: Performed By: #### T SH, BNP, HSTROPN, CMP #### [facility] [address] [place] [address] Dr. eJrsey Butcher Urea nitrogen [Mass/Vol] 15.0 mg/dL Normal 7.0-18.0 [facility] Comment on above: Performed By: #### T SH, BNP, HSTROPN, CMP #### [facility] [address] [place], [place] [address] Dr. Jersey Butcher Urea nitrogen/Creatinine [Mass ratio] 12.8 mg/mg Normal [facility] Comment on above: Performed By: #### T SH, BNP, HSTROPN, CMP #### [facility] [address] [place], [place] [address] Dr. Jersey Butcher XR CHEST 1 Von [...] Nery MCKEON Date: 2022-02-04 01:58 Normal [facility] XR CSPINE 2_3 VIEWSon 2021 XR CSPINE [...] ANTONIO HALL Date: 2022-01-26 15:50 Normal [facility] Office Visit (Cardiology)on 01-12-2022 Follow-up visit Diagnoses/Problems Assessed Coronary artery disease without angina pectoris (414.00) (I25.10) Normal echocardiogram (V72.85) Hypertension (401.9) (I10) Hyperlipidemia (272.4) (E78.5) Sleep apnea (780.57) (G47.30) Morbid obesity with BMI of 50.0-59.9, adult (278.01,V85.43) (E66.01,Z68.43) Orders Morbid obesity with BMI of 50.0-59.9, adult Healthy Weight Tips; Status:Complete; Done: [id number] SocHx: Former smoker Tobacco Use Screening; Status:Complete; Done: [id number] Patient Instructions Please bring all medicines, vitamins, [...] meniscal repair with MACE. Patient presents to [facility] to obtain cardiac risk stratification prior to a weight loss surgery (no details of procedure needed) Surgeon: unknown Planned date: none to date Prior cardiovascular history: 1. Coronary Artery Disease: 2014 Cardiac cath: LAD normal Ramus normal CX QUALITY ENG at AV groove RCA patent stent p/m [...] Major clinical markers: -Acute coronary syndrome or OR within 30 days: no -Decompensated heart failure: no -Significant arrhythmia: no -Severe valvular heart disease: no 2. Intermediate clinical markers -History of ischemic heart disease (prior OR, current chest pain secondary to ischemia, use [...] Social Hist (more content not included)... Normal [place] Tobacco Screening.on 022 Adult depression screening assessment No -[facility] [employer] [address] DO Work Phone: Tobacco use status CPHS b) No -[facility] [employer] [address] DO Work Phone: CBC AUTO DIFFon 01-11-2022 BASO # 0.0 103/ul Normal 0.0-0.1 [facility] Comment on above: Performed By: #### T SH, BNP, HSTROPN, CMP #### [facility] [address] [place] [address] Dr. Jersey Butcher Basophils/100 WBC (Bld) 0.4 % Normal 0.2-2.0 [facility] Comment on above: Performed By: #### T SH, BNP, HSTROPN, CMP #### [facility] [address] [place] [address] Dr. Jersey Butcher EO # 0.1 103/ul Normal 0.0-0.7 [facility] Comment on above: Performed By: #### T SH, BNP, HSTROPN, CMP #### [facility] [address] [place] [address] Dr. Jersey Butcher Eosinophils/100 WBC (Bld) 1.6 % Normal 0.9-7.0 [facility] Comment on above: Performed By: #### T SH, BNP, HSTROPN, CMP #### [facility] [address] [place] [address] Dr. Jersey Butcher Erythrocyte distribution width (RBC) [Ratio] 12.3 % Normal 11.0-15.0 [facility] Comment on above: Performed By: #### T SH, BNP, HSTROPN, CMP #### [facility] [address] [place] [address] Dr. Jersey Butcher Hematocrit (Bld) [Volume fraction] 46.4 % Normal 42.0-54.0 [facility] Comment on above: Performed By: #### T SH, BNP, HSTROPN, CMP #### [facility] [address] [place] [address] Dr. Jersey Butcher Hemoglobin (Bld) [Mass/Vol] 15.8 g/dL Normal 14.0-18.0 [facility] Comment on above: Performed By: #### T SH, BNP, HSTROPN, CMP #### [facility] [address] [place] [address] Dr. Jersey Butcher IG # 0.02 10e3/ul Normal 0.00-0.03 [facility] Comment on above: Performed By: #### T SH, BNP, HSTROPN, CMP #### [facility] [address] [place] [address] Dr. Jersey Butcher IG % 0.3 % Normal 0.0-0.5 [facility] Comment on above: Performed By: #### T SH, BNP, HSTROPN, CMP #### [facility] [address] [place] [address] Dr. Jersey Butcher LYMPH # 1.5 103/ul Normal 1.2-3.8 [facility] Comment on above: Performed By: #### T SH, BNP, HSTROPN, CMP #### [facility] [address] [place] [address] Dr. Jersey Butcher Lymphocytes/100 WBC (Bld) 21.7 % Normal 20.5-60.0 [facility] Comment on above: Performed By: #### T SH, BNP, HSTROPN, CMP #### [facility] [address] [place] [address] Dr. Jersey Butcher MANUAL DIFF REQ NO Normal [facility] Comment on above: Performed By: #### T SH, BNP, HSTROPN, CMP #### [facility] [address] [place] [address] Dr. Jersey Butcher MCH (RBC) [Entitic mass] 31.5 pg Normal 25.9-34.0 [facility] Comment on above: Performed By: #### T SH, BNP, HSTROPN, CMP #### [facility] [address] [place] [address] Dr. Jersey Butcher MCHC (RBC) [Mass/Vol] 34.1 g/dL Normal 29.9-35.2 [facility] Comment on above: Performed By: #### T SH, BNP, HSTROPN, CMP #### [facility] [address] [place] [address] Dr. Jersey Butcher MCV (RBC) [Entitic vol] 92.6 fL Normal 80.0-94.0 [facility] Comment on above: Performed By: #### T SH, BNP, HSTROPN, CMP #### [facility] [address] [place] [address] Dr. Jersey Butcher MONO # 0.7 103/ul Normal 0.3-0.8 [facility] Comment on above: Performed By: #### T SH, BNP, HSTROPN, CMP #### [facility] [address] [place] [address] Dr. Jersey Butcher Monocytes/100 WBC (Bld) 9.7 % Normal 1.7-12.0 [facility] Comment on above: Performed By: #### T SH, BNP, HSTROPN, CMP #### [facility] [address] [place] [address] Dr. Jersey Butcher NEUT # 4.6 103/ul Normal 1.4-6.5 [facility] Comment on above: Performed By: #### T SH, BNP, HSTROPN, CMP #### [facility] [address] [place] [address] Dr. Jersey Butcher Neutrophils/100 WBC (Bld) 66.3 % Normal 43.0-75.0 [facility] Comment on above: Performed By: #### T SH, BNP, HSTROPN, CMP #### [facility] [address] [place] [address] Dr. Jersey Butcher Platelet mean volume (Bld) [Entitic vol] 9.6 fL Normal 9.5-13.5 [facility] Comment on above: Performed By: #### T SH, BNP, HSTROPN, CMP #### [facility] [address] [place] [address] Dr. Jersey Butcher PLT 270 103/ul Normal 150-450 [facility] Comment on above: Performed By: #### T SH, BNP, HSTROPN, CMP #### [facility] [address] [place] [address] Dr. Jersey Butcher RBC 5.01 106/ul Normal 4.70-6.10 [facility] Comment on above: Performed By: #### T SH, BNP, HSTROPN, CMP #### [facility] [address] [place] [address] Dr. Jersey Butcher WBC 6.9 103/ul Normal 4.0-11.0 [facility] Comment on above: Performed By: #### T SH, BNP, HSTROPN, CMP #### [facility] [address] [address] [address] Jersey Butcher GLYCOHEMOGLOBIN A1Con 2021 ADA RECOMMENDATION SEE BELOW Normal The [facility] Comment on above: Result Comment: ADA RECOMMENDED LIMIT 4.0 - 6.0 ADA THERAPEUTIC TARGET < 7.0 ACTION SUGGESTED > 7.0 Performed By: #### T SH, BNP, HSTROPN, CMP #### [facility] [address] [place] [address] Dr. Jersey Butcher Glucose [Mass/Vol] 117 mg/dL Normal [facility] Comment on above: Performed By: #### T SH, BNP, HSTROPN, CMP #### [facility] [address] [place] [address] Dr. Jersey Butcher HbA1c (Bld) [Mass fraction] 5.7 % Normal 4.5-6.2 [facility] Comment on above: Performed By: #### T SH, BNP, HSTROPN, CMP #### [facility] [address] [place] [address] Dr. Jersey Butcher LIPID PROFILEon 01-11-2022 CHOL-HDL RATIO NORM SEE BELOW Normal [facility] Comment on above: Result Comment: 3.3 - 4.4 LOW RISK 4.4 - 7.1 AVERAGE RISK 7.1 - 11.0 MODERATE RISK >11.0 HIGH RISK Performed By: #### C MADDIE #### [facility] [address] [place] [address] Dr. Jersey Butcher Cholesterol [Mass/Vol] 133 mg/dL Normal <=200 [facility] Comment on above: Performed By: #### C MADDIE #### [facility] [address] [address] [address] Jersey Butcher Cholesterol in HDL [Mass/Vol] 54 mg/dL Normal 40-60 [facility] Comment on above: Performed By: #### C MADDIE #### [facility] [id number] Jersey Butcher Cholesterol in LDL [Mass/Vol] 52.0 mg/dL Normal [facility] Comment on above: Performed By: #### C MADDIE #### [facility] [address] [address] [address] Jersey Butcher Cholesterol.total/C holesterol in HDL [Mass ratio] 2.5 {ratio} Normal [facility] Comment on above: Performed By: #### C MADDIE #### [facility] [address] [address] [address] Jersey Butcher HDL NORMAL > or = 60 mg/dl - LO W CARDIOVASCULAR RISK <40 mg/dl - HIGH CARDIOVASCULAR RISK Normal [facility] Comment on above: Performed By: #### C MADDIE #### [facility] [address] [address] [address] Jersey Butcher LDL CALC NORMAL SEE BELOW Normal [facility] Comment on above: Result Comment: <100 mg/dl OPTIMAL 100 - 129 mg/dl NEAR OR ABOVE OPTIMAL 130 - 159 mg/dl BORDERLINE HIGH 160 - 189 mg/dl HIGH >190 mg/dl VERY HIGH Performed By: #### C MADDIE #### [facility] [address] [address] [address] Jersey Butcher Triglyceride [Mass/Vol] 135 mg/dL Normal <=150 [facility] Comment on above: Performed By: #### C MADDIE #### [facility] [address] [address] [address] Jersey Butcher VLDL CALC 27.0 mg/dL Normal [facility] Comment on above: Performed By: #### C PHILMAN #### [facility] [address] [address] [address] Jersey Butcher PROF 14(COMP METB)on 022 Albumin [Mass/Vol] 3.5 g/dL Normal 3.4-5.0 [facility] Comment on above: Performed By: #### C BCROSIE #### [facility] [address] [address] [address] Jersey Butcher Albumin/Globulin [Mass ratio] 1.0 {ratio} Normal [facility] Comment on above: Performed By: #### C BCROSIE #### [facility] [address] [address] [address] Jersey Butcher ALP [Catalytic activity/Vol] 114 U/L Normal 46-116 [facility] Comment on above: Performed By: #### C BCROSIE #### [facility] [address] [address] [address] Jersey Butcher ALT [Catalytic activity/Vol] 64 U/L Critically high 16-63 [facility] Comment on above: Performed By: #### C MADDIE #### [facility] [address] [address] [address] Jersey Butcher Anion gap [Moles/Vol] 9.1 mmol/L Normal [facility] Comment on above: Performed By: #### C BCROSIE #### [facility] [address] [address] [address] Jersey Butcher AST [Catalytic activity/Vol] 81 U/L Critically high 15-37 [facility] Comment on above: Performed By: #### C MADDIE #### [facility] [address] [address] [address] Jersey Butcher Bilirubin [Mass/Vol] 0.9 mg/dL Normal 0.2-1.0 [facility] Comment on above: Performed By: #### C BCROSIE #### [facility] [address] [address] [address] Jersey Butcher Calcium [Mass/Vol] 9.0 mg/dL Normal 8.5-10.1 [facility] Comment on above: Performed By: #### C BCROSIE #### [facility] [address] [address] [address] Jersey Butcher Chloride [Moles/Vol] 99 mmol/L Normal 98-107 [facility] Comment on above: Performed By: #### C BCMAN #### [facility] [address] [address] [address] Jersey Butcher CO2 [Moles/Vol] 34.9 mmol/L Critically high 21.0-32.0 [facility] Comment on above: Performed By: #### C BCROSIE #### [facility] [address] [address] [address] Jersey Butcher Creatinine [Mass/Vol] 1.04 mg/dL Normal 0.70-1.30 [facility] Comment on above: Performed By: #### C BCMAN #### [facility] [address] [address] [address] Jersey Butcher EGFR-AF MICRONESIAN >60 Normal >=[address] [facility] Comment on above: Performed By: #### C BCROSIE #### [facility] [address] [place] [address] Dr. Jersey Butcher EGFR-NON AF MICRONESIAN >60 Normal >=60 [facility] Comment on above: Performed By: #### C BCMAN #### [facility] [address] [place] [address] Dr. Jersey Butcher Globulin (S) [Mass/Vol] 3.5 g/dL Normal [facility] Comment on above: Performed By: #### C BCMAN #### [facility] [address] [place] [address] Dr. Jersey Butcher Glucose [Mass/Vol] 101 mg/dL Normal 74-106 [facility] Comment on above: Performed By: #### C BCMAN #### [facility] [address] [place] [address] Dr. Jersey Butcher Potassium [Moles/Vol] 4.0 mmol/L Normal 3.5-5.1 [facility] Comment on above: Performed By: #### C BCMAN #### [facility] [address] [place] [address] Dr. Jersey Butcher Protein [Mass/Vol] 7.0 g/dL Normal 6.4-8.2 [facility] Comment on above: Performed By: #### C BCMAN #### [facility] [address] [place], [place] [address] Dr. Jersey Butcher Sodium [Moles/Vol] 139 mmol/L Normal 136-145 [facility] Comment on above: Performed By: #### C MADDIE #### [facility] [address] [place], [place] [address] Dr. Jersey Butcher Urea nitrogen [Mass/Vol] 17.0 mg/dL Normal 7.0-18.0 [facility] Comment on above: Performed By: #### C MADDIE #### [facility] [address] [place], [place] [address] Dr. Jersey Butcher Urea nitrogen/Creatinine [Mass ratio] 16.3 mg/mg Normal [facility] Comment on above: Performed By: #### C MADDIE #### [facility] [address] [address] [address] LSPINE WO CONon [...] DONG BUNDY Date: 2021-12-10 22:56 Normal [facility] CBC AUTO DIFFon 11-07-2021 BASO # 0.0 103/ul Normal 0.0-0.1 [facility] Comment on above: Performed By: #### T SH, BNP, HSTROPN, CMP #### [facility] [address] [place] [address] Dr. Jersey Butcher Basophils/100 WBC (Bld) 0.4 % Normal 0.2-2.0 [facility] Comment on above: Performed By: #### T SH, BNP, HSTROPN, CMP #### [facility] [address] [place] [address] Dr. Jersey Butcher EO # 0.1 103/ul Normal 0.0-0.7 [facility] Comment on above: Performed By: #### T SH, BNP, HSTROPN, CMP #### [facility] [address] [place] [address] Dr. Jersey Butcher Eosinophils/100 WBC (Bld) 1.1 % Normal 0.9-7.0 [facility] Comment on above: Performed By: #### T SH, BNP, HSTROPN, CMP #### [facility] [address] [place] [address] Dr. Jersey Butcher Erythrocyte distribution width (RBC) [Ratio] 12.3 % Normal 11.0-15.0 [facility] Comment on above: Performed By: #### T SH, BNP, HSTROPN, CMP #### [facility] [address] [place] [address] Dr. Jersey Butcher Hematocrit (Bld) [Volume fraction] 44.9 % Normal 42.0-54.0 [facility] Comment on above: Performed By: #### T SH, BNP, HSTROPN, CMP #### [facility] [address] [place] [address] Dr. Jersey Butcher Hemoglobin (Bld) [Mass/Vol] 15.2 g/dL Normal 14.0-18.0 [facility] Comment on above: Performed By: #### T SH, BNP, HSTROPN, CMP #### [facility] [address] [place] [address] Dr. Jersey Butcher IG # 0.02 10e3/ul Normal 0.00-0.03 [facility] Comment on above: Performed By: #### T SH, BNP, HSTROPN, CMP #### [facility] [address] [place] [address] Dr. Jersey Butcher IG % 0.2 % Normal 0.0-0.5 [facility] Comment on above: Performed By: #### T SH, BNP, HSTROPN, CMP #### [facility] [address] [place] [address] Dr. Jersey Butcher LYMPH # 1.8 103/ul Normal 1.2-3.8 [facility] Comment on above: Performed By: #### T SH, BNP, HSTROPN, CMP #### [facility] [address] [place] [address] Dr. Jersey Butcher Lymphocytes/100 WBC (Bld) 22.5 % Normal 20.5-60.0 [facility] Comment on above: Performed By: #### T SH, BNP, HSTROPN, CMP #### [facility] [address] [place] [address] Dr. Jersey Butcher MANUAL DIFF REQ NO Normal [facility] Comment on above: Performed By: #### T SH, BNP, HSTROPN, CMP #### [facility] [address] [place] [address] Dr. Jersey Butcher MCH (RBC) [Entitic mass] 31.6 pg Normal 25.9-34.0 [facility] Comment on above: Performed By: #### T SH, BNP, HSTROPN, CMP #### [facility] [address] [place] [address] Dr. Jersey Butcher MCHC (RBC) [Mass/Vol] 33.9 g/dL Normal 29.9-35.2 [facility] Comment on above: Performed By: #### T SH, BNP, HSTROPN, CMP #### [facility] [address] [place] [address] Dr. Jersey Butcher MCV (RBC) [Entitic vol] 93.3 fL Normal 80.0-94.0 [facility] Comment on above: Performed By: #### T SH, BNP, HSTROPN, CMP #### [facility] [address] [place] [address] Dr. Jersey Butcher MONO # 0.9 103/ul Critically high 0.3-0.8 [facility] Comment on above: Performed By: #### T SH, BNP, HSTROPN, CMP #### [facility] [address] [place] [address] Dr. Jersey Butcher Monocytes/100 WBC (Bld) 11.1 % Normal 1.7-12.0 [facility] Comment on above: Performed By: #### T SH, BNP, HSTROPN, CMP #### [facility] [address] [place] [address] Dr. Jersey Butcher NEUT # 5.2 103/ul Normal 1.4-6.5 [facility] Comment on above: Performed By: #### T SH, BNP, HSTROPN, CMP #### [facility] [address] [place] [address] Dr. Jersey Butcher Neutrophils/100 WBC (Bld) 64.7 % Normal 43.0-75.0 [facility] Comment on above: Performed By: #### T SH, BNP, HSTROPN, CMP #### [facility] [address] [place] [address] Dr. Jersey Butcher Platelet mean volume (Bld) [Entitic vol] 10.1 fL Normal 9.5-13.5 [facility] Comment on above: Performed By: #### T SH, BNP, HSTROPN, CMP #### [facility] [address] [place] [address] Dr. Jersey Butcher PLT 265 103/ul Normal 150-450 [facility] Comment on above: Performed By: #### T SH, BNP, HSTROPN, CMP #### [facility] [address] [place] [address] Dr. Jersey Butcher RBC 4.81 106/ul Normal 4.70-6.10 [facility] Comment on above: Performed By: #### T SH, BNP, HSTROPN, CMP #### [facility] [address] [place], [place] [address] Dr. Jersey Butcher WBC 8.1 103/ul Normal 4.0-11.0 [facility] Comment on above: Performed By: #### T SH, BNP, HSTROPN, CMP #### [facility] [address] [place], [place] [address] CHEST WO CONon [...] EUSEBIA VICTORIA Date: 2021-11-06 23:56 Normal [facility] PROF 14(COMP METB)on 022 Albumin [Mass/Vol] 3.5 g/dL Normal 3.4-5.0 [facility] Comment on above: Performed By: #### C VDTBH #### [facility] [address] [address] [address] Jersey Butcher Albumin/Globulin [Mass ratio] 1.0 {ratio} Normal [facility] Comment on above: Performed By: #### C VDTBH #### [facility] [address] [address] [address] Jersey Butcher ALP [Catalytic activity/Vol] 117 U/L Critically high 46-116 [facility] Comment on above: Performed By: #### C VDTBH #### [facility] [address] [place] [address] Dr. Jersey Butcher ALT [Catalytic activity/Vol] 39 U/L Normal 16-63 [facility] Comment on above: Performed By: #### C VDTBH #### [facility] [address] [address] [address] Jersey Butcher Anion gap [Moles/Vol] 9.3 mmol/L Normal [facility] Comment on above: Performed By: #### C VDTBH #### [facility] [address] [place] [address] Dr. Jersey Butcher AST [Catalytic activity/Vol] 20 U/L Normal 15-37 [facility] Comment on above: Performed By: #### C VDTBH #### [facility] [address] [address] [address] Jersey Bucther Bilirubin [Mass/Vol] 0.4 mg/dL Normal 0.2-1.0 [facility] Comment on above: Performed By: #### C VDTBH #### [facility] [address] [address] [address] Jersey Butcher Calcium [Mass/Vol] 9.1 mg/dL Normal 8.5-10.1 [facility] Comment on above: Performed By: #### C VDTBH #### [facility] [address] [address] [address] Jersey Butcher Chloride [Moles/Vol] 99 mmol/L Normal 98-107 [facility] Comment on above: Performed By: #### C VDTBH #### [facility] [address] [place] [address] Dr. Jersey Butcher CO2 [Moles/Vol] 33.2 mmol/L Critically high 21.0-32.0 [facility] Comment on above: Performed By: #### C VDTBH #### [facility] [address] [place] [address] Dr. Jersey Butcher Creatinine [Mass/Vol] 1.21 mg/dL Normal 0.70-1.30 [facility] Comment on above: Performed By: #### C VDTBH #### [facility] [address] [place] [address] Dr. Jersey Butcher EGFR-AF MICRONESIAN >60 Normal >=60 [facility] Comment on above: Performed By: #### C VDTBH #### [facility] [address] [place] [address] Dr. Jersey Butcher EGFR-NON AF MICRONESIAN >60 Normal >=60 [facility] Comment on above: Performed By: #### C VDTBH #### [facility] [address] [place] [address] Dr. Jersey Butcher Globulin (S) [Mass/Vol] 3.5 g/dL Normal [facility] Comment on above: Performed By: #### C VDTBH #### [facility] [address] [address] [address] Jersey Butcher Glucose [Mass/Vol] 102 mg/dL Normal 74-106 [facility] Comment on above: Performed By: #### C VDTBH #### [facility] [address] [place] [address] Dr. Jersey Butcher Potassium [Moles/Vol] 3.5 mmol/L Normal 3.5-5.1 [facility] Comment on above: Performed By: #### C VDTBH #### [facility] [address] [place] [address] Dr. Jersey Butcher Protein [Mass/Vol] 7.0 g/dL Normal 6.4-8.2 [facility] Comment on above: Performed By: #### C VDTBH #### [facility] [address] [address] [address] Jersey Butcher Sodium [Moles/Vol] 138 mmol/L Normal 136-145 [facility] Comment on above: Performed By: #### C VDTBH #### [facility] [address] [address] [address] Jersey Butcher Urea nitrogen [Mass/Vol] 19.0 mg/dL Critically high 7.0-18.0 [facility] Comment on above: Performed By: #### C VDTBH #### [facility] [address] [place] [address] Dr. Jersey Butcher Urea nitrogen/Creatinine [Mass ratio] 15.7 mg/mg Normal [facility] Comment on above: Performed By: #### C VDTBH #### [facility] [address] [place] [address] Dr. Jersey Butcher XR CHEST 1 Von [...] MARCO ANTONIO FRIEDMAN Date: 2021-11-06 22:36 Normal [facility] IO EKG Electrocardiogram- 12 Leadon 04-11-2021 IO EKG Electrocardiogram- 12 Lead See Scanned Document [facility] [employer] 600 DO Work Phone: Tobacco Screening.on 021 Fall risk assessment a) No falls within the last year [facility] [employer] 600 DO Work Phone: Tobacco use status CPHS b) No [facility] [employer] DO Work Phone: Vital Signs Date Time Vital Sign Value Performing Clinician Facility 04-13-2023 12:07-0400 Body height 172.7 cm Justyn Mondragon MD Work Phone: [facility] 04-13-2023 12:07-0400 Body mass index (BMI) [Ratio] 54.74 kg/m2 Justyn Mondragon MD Work Phone: [facility] 04-13-2023 12:07-0400 Body weight 163.29 kg Justyn Mondragon MD Work Phone: [facility] 04-13-2023 12:07-0400 Diastolic blood pressure 80 mm[Hg] Justyn Mondragon MD Work Phone: [facility] 04-13-2023 12:07-0400 Systolic blood pressure 134 mm[Hg] Justyn Mondragon MD Work Phone: [facility] 10-02-2022 11:00-0400 52 1 Eusebia Terrell Work Phone: [facility] 305 DO Work Phone: Comment on above: [id number] 07-19-2022 10:33-0500 Body height 173.99 cm Eusebia Terrell Work Phone: [facility] 305 DO Work Phone: 07-19-2022 10:33-0500 Body mass index (BMI) [Ratio] 50.68 kg/m2 Eusebia Terrell Work Phone: [facility] 305 DO Work Phone: 07-19-2022 10:33-0500 Body surface area Derived from formula 2.57 m2 Eusebia Terrell Work Phone: [facility] 305 DO Work Phone: 07-19-2022 10:33-0500 Body weight 153.41 kg Eusebia Rondon Aichholz Work Phone: [facility] 305 DO Work Phone: 07-19-2022 10:33-0500 Diastolic blood pressure 82 mm[Hg] Eusebia Rondon Aichholz Work Phone: [facility] 305 DO Work Phone: 07-19-2022 10:33-0500 Heart rate 64 /min Eusebia Rondon Aichholz Work Phone: [facility] 305 DO Work Phone: 07-19-2022 10:33-0500 Systolic blood pressure 132 mm[Hg] Eusebia Rondon Aichholz Work Phone: [facility] 305 DO Work Phone: 01-12-2022 14:42-0400 Body height 172.72 cm Eusebia Rondon Aichholz Work Phone: [facility] 600 DO Work Phone: 01-12-2022 14:42-0400 Body mass index (BMI) [Ratio] 51.7 kg/m2 Eusebia Rondon Aichholz Work Phone: [facility] 600 DO Work Phone: 01-12-2022 14:42-0400 Body surface area Derived from formula 2.56 m2 Eusebia Rondon Aichholz Work Phone: [facility] 600 DO Work Phone: 01-12-2022 14:42-0400 Body weight 154.22 kg Eusebia Rondon Aichholz Work Phone: [facility] 600 DO Work Phone: 01-12-2022 14:42-0400 Diastolic blood pressure 80 mm[Hg] Eusebia Rondon Aichholz Work Phone: [facility] [employer] 600 DO Work Phone: 01-12-2022 14:42-0400 Heart rate 66 /min Eusebia Quintanillahholz Work Phone: [facility] 600 DO Work Phone: 01-12-2022 14:42-0400 Systolic blood pressure 136 mm[Hg] Eusebia Rondon Aichholz Work Phone: [facility] 600 DO Work Phone: 04-11-2021 12:45-0400 Body height 172.72 cm Eusebia Rondon Aichholz Work Phone: [facility] 600 DO Work Phone: 04-11-2021 12:45-0400 Body mass index (BMI) [Ratio] 53.52 kg/m2 Eusebia Quintanillahholz Work Phone: [facility] [employer] 600 DO Work Phone: 04-11-2021 12:45-0400 Body surface area Derived from formula 2.6 m2 Eusebia Rondon Aichholz Work Phone: [facility] 600 DO Work Phone: 04-11-2021 12:45-0400 Body weight 159.67 kg Eusebia Quintanillahholz Work Phone: [facility] 600 DO Work Phone: 04-11-2021 12:45-0400 Diastolic blood pressure 78 mm[Hg] Eusebia Rondon Aichholz Work Phone: [facility] 600 DO Work Phone: 04-11-2021 12:45-0400 Heart rate 74 /min Eusebia Rondon Aichholz Work Phone: [facility] 600 DO Work Phone: 04-11-2021 12:45-0400 Systolic blood pressure 124 mm[Hg] Eusebia Rondon Xander Work Phone: [facility] 600 DO Work Phone: Encounters Encounter Date Encounter Type Care Provider Facility Start: 06-12-2023 End: 06-12-2023 ambulatory EUSEBIA XANDER Not Available Start: 06-06-2023 End: 06-06-2023 ambulatory EUSEBIA XANDER Not Available Start: 04-13-2023 End: 04-13[facility] Start: 04-13-2023 End: 04-13-2023 Office outpatient visit 25 minutes Justyn Mondragon MD Work Phone: [facility] Comment on above: CAD S/P percutaneous coronary angioplasty; Paroxysmal atrial fibrillation (CMS/HCC); Old OR (myocardial infarction); Mixed hyperlipidemia; Primary hypertension; Obstructive sleep apnea syndrome; Morbid obesity with BMI of 50.0-59.9, adult (CMS/HCC); Former smoker; Status post ablation of incompetent vein using laser Start: 10-26-2022 End: 10-26-2022 ambulatory NATALIA TERRELL Facility: Start: 10-05-2022 Chart Update Eusebia Rondon Keyona lz Work Phone: [facility] 305 DO Work Phone: Start: 10-03-2022 Chart Update Eusebia Rondon Keyona lz Work Phone: [facility] 305 DO Work Phone: Start: 10-03-2022 [address] Mrs[address] Eusebia Rondon Xander F acility:[id number] Start: 10-02-2022 ambulatory Mrs. Eusebia Rondon Xander F acility:[id number] Start: 09-15-2022 Telephone encounter Eusebia Rondon Daphne wayne Work Phone: [facility] 305 DO Work Phone: Start: 09-15-2022 End: 09-16-[address] DOCTOR HERNANDEZ Facility:H1 Start: 08-27-2022 End: 08-27-2022 ambulatory TED DE LUNA . Facility:H1 Start: 08-25-2022 Telephone encounter Eusebia wayne Work Phone: [facility] 305 DO Work Phone: Start: 08-24-2022 End: 08-25-[address] KESHAWN PECK Facility:H1 Start: 07-27-2022 STRESS KARIS, Provider : [address] NUCLEAR ,[id number], Status: Pen, Time: 2:00 PM Eusebia Terrell Work Phone: [facility] Work Phone: Start: 07-19-2022 Office outpatient vi sit 25 minutes Eusebiamisha Terrell [facility]: [facility] Work Phone: Start: 07-19-2022 ambulatory JUSTYN MONDRAGON Facility: Start: 06-01-2022 End: 06-04-2022 ambulatory SWAPNA GUZMÁN Facility:H1 Start: 05-29-2022 End: 05-29-2022 ambulatory MOTOR LODGE CLERK EUSEBIA TERRELL Facility:H1 Start: 05-26-2022 End: 05-26-2022 ambulatory ROBERTA PERRIN Facility:H1 Start: 05-20-2022 End: 05-20-[address] SALVADOR WALTERS . Facility:H1 Start: 04-03-[address] Madison Christian Facility: Start: 02-04-2022 End: 02-04-2022 ambulatory NATALIA EUSEBIAMisha TERRELL Facility:H1 Start: 01-26-2022 End: 01-26-2022 ambulatory MOTOR LODGE CLERK EUSEBIA XANDER Facility:H1 Start: 01-12-2022 Office outpatient vi sit 25 minutes Eusebia Nela Terrell Work Phone: [facility] 250 DO Work Phone: Start: 01-12-2022 Patient encounter procedure Eusebia Rondon Socorrotommymaeganz Work Phone: [facility] 600 DO Work Phone: Start: 01-12-2022 ambulatory NATALIA Parsons y: Start: 01-11-2022 End: 01-12-2022 ambulatory MOTOR LODGE CLERK EUSEBIA AICTommyHOLZ Facility:H1 Start: 01-08-2022 End: 01-08-2022 ambulatory MOTOR LODGE CLERK EUSEBIA AICHHOLZ Facility:H1 Start: 12-10-2021 End: 12-11-2021 ambulatory MOTOR LODGE CLERK EUSEBIA AICHHOLZ Facility:H1 Start: 11-06-2021 End: 11-07-2021 ambulatory MOTOR LODGE CLERK EUSEBIA AICHHOLZ Facility:H1 Start: 08-02-[address] Madison Christian Facility:[id number] Start: 07-18-2021 Telephone encounter Eusebia Rondon Daphne santanaholz Work Phone: [facility] 250 DO Work Phone: Start: 05-09-2021 Rx Renewal Eusebia Rondon Socorrohho lz Work Phone: [facility] 250 DO Work Phone: Start: 04-11-2021 Office outpatient vi sit 25 minutes Eusebia Rondon Socorrohholz Work Phone: [facility] 600 DO Work Phone: Start: 04-04-2021 Rx Renewal Eusebia Quintanillahho lz Work Phone: [facility] 250 DO Work Phone: Start: 08-23-2017 Ambulatory MADISON Escobar lity:[id number] Echocardiogram normal Eusebia Nela Serna chholz [facility] Phone: [facility] 600 DO Work Phone: Preoperative state Eusebia Nela Aichh olz Work Phone: [facility] 600 DO Work Phone: Procedures Date Procedure Procedure Detail Performing Clinician Start: 04-12-2023 End: 04-13-2023 History of percutaneous transluminal coronary angioplasty History of PTCA Justyn Mondragon MD Work Phone: Start: 01-11-2022 PSA screening MOTOR LODGE CLERK EUSEBIA XANDER Comment on above: Performed By: #### T SH, BNP, HSTROPN, CMP #### [facility] [address] [address] [address] Jersey Butcher Cardiac catheterization Eusebia Rondon Socorrotommyholz Work Phone: Cholecystectomy Eusebia Law gallo Work Phone: Comment on above: [id number], Phillip; Colonoscopy Eusebia Lawmaegan z Work Phone: Comment on above: [id number] Haley; History of percutane ous transluminal coronary angioplasty History of PTCA Eusebia Rondon Socorrohgallo Work Phone: Operative procedure on knee Eusebia Rondon Socorrotommygallo Work Phone: Percutaneous translu china coronary angioplasty Eusebia Quintanillahholz Work Phone: Plan of Treatment Date Care Activity Detail Author Start: 10-17-2023 End: 10-17-2023 Patient encounter procedure 10/17/2023 10:00 AM EDT Office Visit [facility] [address] [phone] Justyn Mondragon MD [address] [facility] [address], [address] [address] [facility] Start: 07-19-2023 FUV, Provider: Justyn Mondragon, Status: Pen, Time: 1:00 PM FUV, Provider: Justyn Mondragon, Status: Pen, Time: 1:00 PM [facility] 305 DO Work Phone: Start: 07-19-2023 End: 07-19-2023 Patient encounter procedure 07/19/2023 1:00 PM EST Office Visit [facility] [address] [phone] Justyn Mondragon MD [address] [facility] [address], [address] [address] [facility] Start: 02-16-2023 Influenza vaccination Influenza Vaccine (#1) [facility] Start: 10-03-2022 REST ONLY, Provider: DAYANNA HHVI NUCLEAR 01,[id number], Status: Pen, Time: 10:00 AM REST ONLY, Provider: DAYANNA HHVI NUCLEAR 01,[id number], Status: Pen, Time: 10:00 AM [facility] 305 DO Work Phone: Start: 10-02-2022 STRESSNUC2, Provider: DAYANNA HHVI NUCLEAR 01,[id number], Status: Pen, Time: 11:00 AM STRESSNUC2, Provider: DAYANNA HHVI NUCLEAR 01,[id number], Status: Pen, Time: 11:00 AM [facility] 305 DO Work Phone: Start: 07-27-2022 STRESS KARIS, Provider: [id number] HHVI NUCLEAR 01,[id number], Status: Pen, Time: 2:00 PM STRESS KARIS, Provider: [id number] HHVI NUCLEAR 01,[id number], Status: Pen, Time: 2:00 PM [facility] 305 DO Work Phone: Start: 03-29-2022 FUV, Provider: Madison Christian, Status: Pen, Time: 1:30 PM FUV, Provider: Madison Christian, Status: Pen, Time: 1:30 PM [facility] 600 DO Work Phone: Start: 07-05-2021 FUV, Provider: Madison Christian, Status: Pen, Time: 3:20 PM FUV, Provider: Madison Christian, Status: Pen, Time: 3:20 PM [facility] 250 DO Work Phone: Start: 2013 Zoster Vaccines (1 of 2) Zoster Vaccines (1 of 2) [facility] Start: 1985 DTaP/Tdap/Td Vaccines (1 - Tdap) DTaP/Tdap/Td Vaccines (1 - Tdap) [facility] Start: 1982 Hepatitis A Vaccines (1 of 2 - Risk 2-dose series) Hepatitis A Vaccines (1 of 2 - Risk 2-dose series) [facility] Start: 1981 Diabetes mellitus screening Diabetes Screening [facility] Start: 1981 Hepatitis C screening Hepatitis C Screening [facility] Start: 1969 Pneumococcal Vaccine: Pediatrics (0 to 5 Years) and At-Risk Patients (6 to 64 Years) (1 - PCV) Pneumococcal Vaccine: Pediatrics (0 to 5 Years) and At-Risk Patients (6 to 64 Years) (1 - PCV) [facility] Start: 1964 MMR Vaccines (1 of 1 - Standard series) MMR Vaccines (1 of 1 - Standard series) [facility] Start: 1963 COVID-19 Vaccine (#1) COVID-19 Vaccine (#1) [facility] Start: 1963 Hepatitis B Vaccines (1 of 3 - 3-dose series) Hepatitis B Vaccines (1 of 3 - 3-dose series) [facility] Start: 1963 HIV screening HIV Screening [facility] Start: 1963 Lipid panel Lipid Panel [facility] Start: 1963 Screening for malignant neoplasm of colon [facility] Start: 1963 Yearly Adult Physical Yearly Adult Physical [facility] Payers Date Payer Category Payer Unknown 2023 Unknown [id number] 2022 Unknown 1 1965 Unknown [id number] 2.16. [id number] 1963 Unknown [id number] 2.16. [id number] 1963 Unknown [id number] 2.16. 840.1.742144.3.579.2.356 1963 Unknown [id number] 2.16. 840.1.054417.3.579.2.356 1963 Unknown [id number] 2.16.84 0.1.152616.3.579.2.593 1963 Unknown [id number] 2.16.84 0.1.240084.3.579.2.593 1963 Unknown [id number] 2.16.84 0.1.399844.3.579.2.593 1963 Unknown [id number] 2.16.84 0.1.974550.3.579.2.593 1963 Unknown [id number] 2.16.84 0.1.239720.3.579.2.593 1963 Unknown [id number] 2.16.84 0.1.604973.3.579.2.593 1963 Unknown [id number] 2.16.84 0.1.425463.3.579.2.593 1963 Unknown [id number] 2.16.84 0.1.912439.3.579.2.593 1963 Unknown [id number] 2.16.84 0.1.816001.3.579.2.593 1963 Unknown [id number] 2.16.84 0.1.913727.3.579.2.593 1963 Unknown [id number] 2.16.84 0.1.279096.3.579.2.593 1963 Unknown [id number] 2.16.84 0.1.600177.3.579.2.593 1963 Unknown [id number] 2.16.84 0.1.661467.3.579.2.593 1963 Unknown [id number] 2.16.84 0.1.764508.3.579.2.593 1963 Unknown [id number] 2.16.8 40.1.702255.3.579.2.1068 1963 Unknown [id number] 2.16.8 40.1.533344.3.579.2.1068 1963 Unknown [id number] 2.16.8 40.1.345359.3.579.2.1244 1963 Unknown [id number] 2.16.840 .1.034460.3.579.2.1259 1963 Unknown [id number] 2.16.840 .1.972169.3.579.2.1259 1959 Private Health Insurance [id number] 1959 Unknown [id number] Self-pay Self Pay [id number] Social History Date Type Detail Facility Tobacco smoking stat [facility] Unknown if ever smoked [facility] Start: 1965 Sex Assigned At Male F [facility] Daily caffeine consumption Daily caffeine consumption [facility] 600 DO Work Phone: Comment on above: 2 (24oz) cups of cof fee daily; Quit 07/26/2012; Start: 04-13-2023 [facility] End: 06-18-2012 History of tobacco use Current smoker [facility] Work Phone: End: 06-18-2012 History of tobacco use Cigarette Smoker [facility] Work Phone: Start: 04-13-2023 Tobacco use and exposure Smokeless tobacco non-user [facility] Work Phone: Start: 04-13-2023 Alcohol intake Lifetime non-d raisa (finding) [facility] Work Phone: Start: 1965 Sex Assigned At Not on file [facility] Work Phone: Gender identity Not on file [facility] Work Phone: Start: 04-03-2023 End: 04-13-2023 Exposure to SARS-CoV-2 (event) Not sure [facility] Goals Date Patient Goal Desired Activity /State History of Present illness Narrative 04-13-2023 Justyn Mondragon MD - 04/13/2023 11:30 AM EDT Note Date & Type Note Facility 04-13-2023 History of Present illness Narrative Images from the original note were not included. CARDIOLOGY OFFICE VISIT CHIEF COMPLAINT HISTORY OF PRESENT ILLNESS The patient is being seen after recent hospitalization at [facility]. He states that he had atrial fibrillation [...] coronary angioplasty Paroxysmal atrial fibrillation (CMS/HCC) Old [place] (myocardial infarction) Mixed hyperlipidemia Primary hypertension Obstructive sleep apnea syndrome Morbid obesity with BMI of 50.0-59.9, adult (CMS/HCC) Former smoker Status post ablation of incompetent vein using laser @ASSESSMENTANDPLANTEXT@ documented in this encounter [facility] Work Phone: Instructions 04-13-2023 Patient Instructions [...] Justyn Ramirez MD documented in this encounter [facility] Work Phone: Clinical Note 08-25-2022 Note [...] by: KESHAWN PECK Date: 2022-08-25 07:01 [facility] Chief complaint Narrative - Reported Note Date & Type Note Facility Chief complaint Narrative - Reported ELYSE LEAHY is being seen for a cardiovascular evaluation . POC for knee surgery. [facility] 600 DO Work Phone: Evaluation note Note Date & Type Note Facility Evaluation note Diagnosis CAD S/P percutaneous coronary angioplasty Paroxysmal atrial fibrillation (CMS/HCC) Atrial fibrillation Old [place] (myocardial infarction) Old myocardial infarction Mixed hyperlipidemia Primary hypertension Unspecified essential hypertension Obstructive sleep apnea syndrome Obstructive sleep apnea (adult) (pediatric) Morbid obesity with BMI of 50.0-59.9, adult (CMS/HCC) Former smoker Personal history of tobacco use, presenting hazards to health Status post ablation of incompetent vein using laser documented in this encounter [facility] Work Phone: History of Present illness [...] 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 He remains active but difficult to [...] stress testing to clear him for surgery. [facility] 600 DO Work Phone: History of Present [...] software was utilized to prepare this document. [facility] 305 DO Work Phone: History of Present [...] software was utilized to prepare this document. [facility] Work Phone: Summary Purpose Family History [...] section and content) DATE CREATED AUTHOR 12/06/2017 [facility] DATE CREATED AUTHOR AUTHOR'S ORGANIZ ATION 07/20/2022 [facility] DATE CREATED AUTHOR AUTHOR'S ORGANIZ ATION 07/20/2022 [employer] DATE CREATED AUTHOR AUTHOR'S ORGANIZ ATION 10/29/2022 [facility] DATE CREATED AUTHOR AUTHOR'S ORGANIZ ATION 12/23/2022 [facility] DATE CREATED AUTHOR AUTHOR'S ORGANIZ ATION 04/16/2023 [facility] DATE CREATED AUTHOR AUTHOR'S ORGANIZ ATION 06/14/2023 [facility] EPIC Reason for Visit (unrecogniz ed section and content) Reason Comments Hospital Follow-up Care Teams (unrecognized sec tion and content) Managing Supervisor Relationship Specialty Start Date End Date Eusebia Terrell, FERTILIZER LOADER-MOTOR LODGE CLERK [address] [place] [address] PCP - General 11/04/19 FOR [...] BE BASED ON THE PRIMARY CLINICAL RECORDS. [facility]. provides no warranty or guarantee of the accuracy or completeness of information in this document.
--- NOTE | 2023-06-16 06:02 | W.PM.TELEPN ---
Progress Note: Subjective Subjective Interval history: CC: Palpitations HPI: This is a very pleasant 57 years old male who presents with above complaint. Patient has a history of paroxysmal atrial fibrillation. He felt different medications in the past. He is currently on Cardizem and Eliquis. Patient stating that not been feeling well the last few days with shortness of breath, palpitations. Denies any chest pain. His cough become productive with some purulent sputum. Evaluation emergency room revealed atrial fibrillation with rapid ventricular response. Started on Cardizem drip. Patient already anticoagulated with Eliquis. Imaging studies of the chest suggestive of bilateral bibasilar pneumonia. Started on antibiotics. Exam Narrative Exam Narrative: Physical Exam: Not in distress, pleasant, lucid, cooperative, morbidly obese Head - atraumatic, eyes - pupils equal, round, reactive to light, extra ocular movement intact, MMM Neck - supple, thyroid not enlarged, LN not palpated Lungs - clear to auscultation, no dullness on percussion CVS - heart sounds S1, S2, no additional murmurs gallop, urine. The irregular rate and rhythm, tachycardia Gastrointestinal?abdomen is soft, non-tender, non-distended, no organomegaly, positive bowel sounds Extremities no clubbing, cyanosis, bilateral pitting 2+ lower extremity edema Neurological?cranial nerve II?XII grossly intact, no meningeal signs, no cerebellar signs, no sensory deficit Musculoskeletal - joints, no effusions, ROM preserved Dermatological - the skin dry, warm, no rashes Psychiatric?patient is AAO X3, patient has normal affect Constitutional Vital Signs, click to edit/add: Last Vital Signs Temp 98.3 F 06/16/23 05:29 Pulse 119 H 06/16/23 05:50 Resp 20 06/16/23 05:50 BP 152/101 H 06/16/23 05:29 Pulse Ox 93 L 06/16/23 05:50 O2 Del Method Nasal Cannula 06/16/23 05:50 O2 Flow Rate 4 06/16/23 05:50 Progress Note: Objective Labs Labs: Short CBC 06/16/23 Range/Units 00:23 WBC 7.0 (4.0-11.0) 10^3/uL Hgb 15.1 (14.0-18.0) g/dL Hct 46.3 (42.0-54.0) % Plt Count 230 (150-450) 10^3/uL BMP 06/16/23 00:23 Sodium 137 Potassium 3.8 Chloride 97 L Carbon Dioxide 39.0 H BUN 15.0 Creatinine 1.12 Glucose 110 H Calcium 9.1 Progress Note: A&P Assessment and Plan (1) Atrial fibrillation with rapid ventricular response: Assessment and Plan: We are going to continue with the Cardizem drip Titrate to heart rate below 100 Continue anticoagulation with Eliquis Patient can benefit from echocardiogram 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 There is a suspicion for bilateral bibasilar pneumonia Started on empiric, broad-spectrum antibiotics Follow-up results of the cultures Oxygen supplementation as needed Patient also has history of obstructive sleep apnea?recommended to use CPAP with home settings, nocturnal (3) Benign essential hypertension: Assessment and Plan: Verify and resume home regiment, adjust as needed (4) Coronary artery disease: Assessment and Plan: Patient is chest pain-free. Monitor on telemetry (5) Edema of both lower legs: Assessment and Plan: That is actually getting better. Continue with home dose of diuretics Plan As the provider for the telehealth service, I attest that I introduced myself to the patient, provided my credentials, disclosed by location and determined that based on a review of the patient's chart and discussion with members of the patient's treatment team, telemedicine via real-time, 2 way, and interactive audio and video platform is an appropriate and effective means of providing the service. ?The patient and I mutually agree this visit is appropriate for telemedicine. ?[place] ?The encounter took approximately 35 minutes. ?The nurse was present during the entire time and I was able to move the stethoscope in appropriate directions. ?The patient was evaluated at the Hospital ? Portions of this note may be dictated using [place] [employer] voice recognition software. Variances in spelling and vocabulary are possible and unintentional. Not all errors may be caught and/or corrected. Please notify the author if any discrepancies are noted and/or if the meaning of any statement is unclear.? ? Patient verbally consented for treatment via video visit with patient currently located at the [facility] and provider located in [place]. Telemedicine Attestation Telemedicine Attestation I conducted this encounter from [facility]] via secure live, [id number] video conference with the patient, located at [facility] with [atrial fibrillation with rapid ventricular response]. Prior to the interview, the risks and benefits of telemedicine were discussed with the patient and verbal consent was obtained.
[2023-06-16] MEDS: POTASSIUM CHLORIDE 10 MEQ ER TABLET 20 MEQ PO (08:18)
[2023-06-16] MEDS: METOPROLOL TARTRATE 25 MG TABLET PO ×2 (08:18→20:08)
[2023-06-16] MEDS: FUROSEMIDE 20 MG TABLET PO (08:18)
[2023-06-16] MEDS: APIXABAN 5 MG TABLET PO ×2 (08:18→20:08)
[2023-06-16] MEDS: LOSARTAN POTASSIUM 50 MG TABLET PO (08:19)
[2023-06-16] MEDS: CLINDAMYCIN HCL 150 MG CAPSULE 300 MG PO ×3 (08:20→20:08)
[2023-06-16] MEDS: DILTIAZEM HCL 240 MG CAP.ER.24H PO (13:21)
[2023-06-16 14:05] LABS: SARS-CoV-2 NAA NOT DETECTED (NOT DETECTE)
--- NOTE | 2023-06-16 16:08 | P.HP_ITS ---
H&P: HPI History of Present Illness Chief complaint: sob Narrative: 57 y/o male to ER with SOB and cough. C/o symptoms for several days and PCP placed on levaquin and prednisone. Continued cough and yellow sputum. Increased fatigue and SOB. To ER and EMS noted tachycardia. In ER found rapid afib. Temp 99.9. Chest x-ray with pneumonia and WBC normal. Continued rapid afib and started cardizem drip. Admitted for treatment. Started rocphin and zithromax for pneumonia. Feels slightly improved overnight but continued SOB and frequent cough. Review of Systems ROS Constitutional Reports: fever, chills and fatigue Cardiovascular Reports: palpitations; Denies: chest pain, edema or lightheadedness Respiratory Reports: shortness of breath, cough and wheezing Gastrointestinal Denies: abdominal pain, nausea, vomiting or diarrhea Genitourinary Denies: painful urination [facility] Medical History (Updated 06/16/23 @ 09:44 by Mirza Pérez MD) Cellulitis ?L03.90 - Cellulitis, unspecified (ICD-10) Leukocytosis ?D72.829 - Elevated white blood cell count, unspecified (ICD-10) Asthma exacerbation ?J45.901 - Unspecified asthma with (acute) exacerbation (ICD-10) Prediabetes ?R73.03 - Prediabetes (ICD-10) Paroxysmal atrial fibrillation ?I48.0 - Paroxysmal atrial fibrillation (ICD-10) COPD (chronic obstructive pulmonary disease) ?J44.9 - Chronic obstructive pulmonary disease, unspecified (ICD-10) CATERINA (obstructive sleep apnea) ?G47.33 - Obstructive sleep apnea (adult) (pediatric) (ICD-10) Cellulitis ?L03.90 - Cellulitis, unspecified (ICD-10) Surgical History (Updated 04/08/23 @ 13:25 by Zuleyka Merritt) Hx of cholecystectomy ?Z90.49 - Acquired absence of other specified parts of digestive tract (ICD- 10) H/O heart artery stent ?Z95.5 - Presence of coronary angioplasty implant and graft (ICD-10) Social History Within the past year, how often did you have a drink containing alcohol: never Score interpretation: A score less than 4 is consistent with normal alcohol consumption. Smoking status: Former smoker Meds Home Medications and Allergies Home Medications Medication Instructions Recorded Confirmed Type atorvastatin 40 mg tablet 40 mg PO Q24H 04/08/23 06/16/23 History losartan 50 mg tablet 50 mg PO Q24H 04/08/23 06/16/23 History apixaban 5 mg tablet (Eliquis) 5 mg PO BID 30 days #60 tabs 04/10/23 06/16/23 Rx diltiazem HCl 240 mg 240 mg PO DAILY #30 caps 04/10/23 06/16/23 Rx capsule,extended release 24 hr levalbuterol tartrate 45 2 inh inhalation Q4H PRN shortness 04/10/23 06/16/23 Rx mcg/actuation aerosol inhaler of breath or wheezing #15 grams levofloxacin 750 mg tablet 750 mg PO DAILY 5 days #5 tabs 04/10/23 06/16/23 Rx metoprolol tartrate 25 mg tablet 25 mg PO BID 30 days #60 tabs 04/10/23 06/16/23 Rx prednisone 10 mg tablet See Rx Instructions .Route 04/10/23 Rx .COMPLEX #42 tabs clindamycin HCl 150 mg capsule 300 mg (2 x 150 mg) PO Q6H 10 days 06/04/23 06/16/23 Rx #80 caps hydrocodone 5 mg-acetaminophen 325 1 tab PO Q6H PRN pain #12 tabs 06/04/23 06/16/23 Rx mg tablet benzonatate 200 mg capsule 200 mg PO .every 8 hours PRN cough 06/16/23 06/16/23 History furosemide 20 mg tablet 20 mg PO DAILY 06/16/23 06/16/23 History potassium chloride 10 mEq 20 meq PO DAILY 06/16/23 06/16/23 History tablet,extended release(part/cryst) (Klor-Con M) Allergies Allergy/AdvReac Type Severity Reaction Status Date / Time No Known Drug Allergies Allergy Verified 04/08/23 07:42 Exam Constitutional Vital Signs, click to edit/add: Last Vital Signs Temp 98.2 F 06/16/23 07:27 Pulse 107 H 06/16/23 15:45 Resp 18 06/16/23 12:00 BP 94/54 06/16/23 10:16 Pulse Ox 94 L 06/16/23 12:00 O2 Del Method Nasal Cannula 06/16/23 07:27 O2 Flow Rate 4 06/16/23 07:27 Documenting provider has reviewed patient's vital signs: yes Common normals: no apparent distress, oriented x3 and alert HENMT Common normals: normocephalic Eye Common normals: PERRL and EOMs intact bilaterally Respiratory Auscultation: wheezes and diminished lung sounds Cardio Common normals: no gallops, no murmurs and no rub Rhythm: abnormal rhythm irregularly irregular GI Common normals: Normal to inspection, nondistended, normoactive bowel sounds present and non-tender Extremity Common normals: no pedal edema Results Labs Labs: Short CBC 06/16/23 Range/Units 00:23 WBC 7.0 (4.0-11.0) 10^3/uL Hgb 15.1 (14.0-18.0) g/dL Hct 46.3 (42.0-54.0) % Plt Count 230 (150-450) 10^3/uL BMP 06/16/23 00:23 Sodium 137 Potassium 3.8 Chloride 97 L Carbon Dioxide 39.0 H BUN 15.0 Creatinine 1.12 Glucose 110 H Calcium 9.1 Pulse Oximetry Attestation: I have reviewed the pertinent pulse oximetry results. ECG Attestation: ?I have reviewed the pertinent ECG results. Assessment and Plan Assessment and Plan (1) Atrial fibrillation with rapid ventricular response: (2) Pneumonia: (3) COPD exacerbation: (4) Benign essential hypertension: (5) Coronary artery disease: (6) Edema of both lower legs: Plan Continued SOB and poor air movement. Continue antibiotics and add solu-medrol. Use albuterol PRN. Resumed home medication. Remained on cardizem drip overnight and wean. Resume oral lopressor and cardizem. Will need at least 2 midnights in the hospital.
[2023-06-16] MEDS: METHYLPREDNISOLONE SOD SUCC PF 125 MG/2 ML VIAL 60 MG IVP ×2 (16:50→22:54)
[2023-06-16] MEDS: ATORVASTATIN CALCIUM 40 MG TABLET PO (20:08)
[2023-06-17] VITALS (40 sets, daily range): BP systolic 112–142; BP diastolic 59–92; PULSE 71–128; RESP 1–59; TEMP 36.3–36.6; O2SAT 91–97
[2023-06-17] MEDS: CLINDAMYCIN HCL 150 MG CAPSULE 300 MG PO ×4 (03:56→20:37)
[2023-06-17] MEDS: METHYLPREDNISOLONE SOD SUCC PF 125 MG/2 ML VIAL 60 MG IVP ×3 (03:56→16:11)
[2023-06-17] MEDS: APIXABAN 5 MG TABLET PO ×2 (08:19→20:37)
[2023-06-17] MEDS: POTASSIUM CHLORIDE 10 MEQ ER TABLET 20 MEQ PO (08:19)
[2023-06-17] MEDS: DILTIAZEM HCL 240 MG CAP.ER.24H PO (08:19)
[2023-06-17] MEDS: FUROSEMIDE 20 MG TABLET PO (08:19)
[2023-06-17] MEDS: METOPROLOL TARTRATE 25 MG TABLET PO (08:19)
[2023-06-17] MEDS: LOSARTAN POTASSIUM 50 MG TABLET PO (08:23)
[2023-06-17] MEDS: ACETAMINOPHEN 500 MG TABLET 1000 MG PO (09:15)
[2023-06-17] MEDS: METOPROLOL TARTRATE 5 MG/5 ML VIAL IVP (13:03)
--- NOTE | 2023-06-17 15:06 | PM.PN ---
Progress Note: Subjective Subjective Interval history: Patient feels better this am. Still with tachycardia and frequent heart racing. Continues to have SOB with exertion and cough. Notices heart races when up and moving. No chest pain or pressure. Normal appetite and no emesis or diarrhea. Afebrile.. Exam Constitutional Vital Signs, click to edit/add: Last Vital Signs Temp 97.6 F 06/17/23 11:53 Pulse 89 06/17/23 14:00 Resp 25 H 06/17/23 11:53 BP 112/59 06/17/23 11:54 Pulse Ox 95 06/17/23 11:40 O2 Del Method Nasal Cannula 06/17/23 11:53 O2 Flow Rate 3 06/17/23 11:53 Documenting provider has reviewed patient's vital signs: yes Common normals: no apparent distress, oriented x3 and alert HENMT Common normals: normocephalic Eye Common normals: PERRL and EOMs intact bilaterally Respiratory Auscultation: wheezes and diminished lung sounds Cardio Common normals: no gallops, no murmurs and no rub Rhythm: abnormal rhythm irregularly irregular GI Common normals: Normal to inspection, nondistended, normoactive bowel sounds present and non-tender Extremity Common normals: no pedal edema Progress Note: A&P Assessment and Plan (1) Atrial fibrillation with rapid ventricular response: (2) Pneumonia: (3) COPD exacerbation: (4) Benign essential hypertension: (5) Coronary artery disease: (6) Edema of both lower legs: Plan Continued SOB and chest tightness. Continue antibiotics, steroids, and breathing treatments. Wean O2 as tolerated. Continued tachycardia and increase lopressor. Increase ambulation.
[2023-06-17] MEDS: CEFTRIAXONE 1,000 MG in 0.9 % SODIUM CHLORIDE 50 ML 100 MG IV (19:39)
[2023-06-17] MEDS: ATORVASTATIN CALCIUM 40 MG TABLET PO (20:36)
[2023-06-17] MEDS: METOPROLOL TARTRATE 25 MG TABLET 50 MG PO (20:37)
[2023-06-17] MEDS: AZITHROMYCIN 500 MG in 0.9 % SODIUM CHLORIDE 250 ML 250 MG IV (20:38)
[2023-06-18] VITALS (18 sets, daily range): BP systolic 114–162; BP diastolic 73–93; PULSE 66–123; RESP 18–22; TEMP 36.7–36.9; O2SAT 92–100
[2023-06-18] MEDS: METHYLPREDNISOLONE SOD SUCC PF 125 MG/2 ML VIAL 60 MG IVP ×5 (00:24→22:06)
[2023-06-18] MEDS: ACETAMINOPHEN 500 MG TABLET 1000 MG PO ×2 (01:03→11:22)
[2023-06-18] MEDS: BENZONATATE 100 MG CAPSULE 200 MG PO ×2 (01:03→11:22)
[2023-06-18] MEDS: CLINDAMYCIN HCL 150 MG CAPSULE 300 MG PO ×2 (03:06→08:49)
[2023-06-18 05:42] LABS: Basophils Percent Auto 0.1 % (0.2-2.0); Hematocrit 44.5 % (42.0-54.0); Hemoglobin 14.4 g/dL (14.0-18.0); Immature Granulocytes Abs Auto 0.06 10^3/uL (0.00-0.03); Immature Granulocytes Pct Auto 0.4 % (0.0-0.5); Lymphocytes Absolute Auto 0.6 10^3/uL (1.2-3.8); Lymphocytes Percent Auto 4.1 % (20.5-60.0); Mean Corpuscular HGB Conc 32.4 g/dL (29.9-35.2); Mean Corpuscular Volume 95.7 fL (80.0-94.0); Mean Platelet Volume 10.5 fL (9.5-13.5); Monocytes Absolute Auto 0.3 10^3/uL (0.3-0.8); Neutrophils Absolute Auto 12.5 10^3/uL (1.4-6.5); Neutrophils Percent Auto 93.4 % (43.0-75.0); Platelet Count 215 10^3/uL (150-450); Red Blood Count 4.65 10^6/uL (4.70-6.10); Red Cell Distribution Width 11.8 % (11.0-15.0); White Blood Count 13.3 10^3/uL (4.0-11.0)
[2023-06-18 05:54] LABS: Anion Gap 5.1; BUN Creatinine Ratio 19.7; Calcium 9.1 mg/dL (8.5-10.1); Carbon Dioxide 38.7 mmol/L (21.0-32.0); Chloride 96 mmol/L (98-107); Estimated GFR (African America >60 (>=60); Estimated GFR (Non-African Ame >60 (>=60); Glucose 148 mg/dL (74-106); Potassium 4.8 mmol/L (3.5-5.1); Sodium 135 mmol/L (136-145)
[2023-06-18] MEDS: LOSARTAN POTASSIUM 50 MG TABLET PO (08:49)
[2023-06-18] MEDS: DILTIAZEM HCL 240 MG CAP.ER.24H PO (08:49)
[2023-06-18] MEDS: APIXABAN 5 MG TABLET PO ×2 (08:49→20:04)
[2023-06-18] MEDS: FUROSEMIDE 20 MG TABLET PO (08:49)
[2023-06-18] MEDS: METOPROLOL TARTRATE 25 MG TABLET 50 MG PO (08:49)
[2023-06-18] MEDS: POTASSIUM CHLORIDE 10 MEQ ER TABLET 20 MEQ PO (08:49)
--- NOTE | 2023-06-18 12:38 | RESP.RT ---
tirated down to 4L
--- NOTE | 2023-06-18 16:03 | PM.PN ---
Progress Note: Subjective Subjective Interval history: Patient continues to slowly improve. Continues to have SOB with exertion and mild cough. Difficulty staying active or walking around room due to symptoms. Afebrile. Still with occasional tachycardia on telemetry and pulse 90s to low 100s but patient does not feel palpitations or heart racing. No chest pain or pressure. Normal appetite and no emesis or diarrhea. Exam Constitutional Vital Signs, click to edit/add: Last Vital Signs Temp 98.4 F 06/18/23 14:16 Pulse 85 06/18/23 16:00 Resp 20 06/18/23 14:16 BP 162/74 H 06/18/23 14:16 Pulse Ox 94 L 06/18/23 14:16 O2 Del Method Nasal Cannula 06/18/23 14:16 O2 Flow Rate 4 06/18/23 14:16 Documenting provider has reviewed patient's vital signs: yes Common normals: no apparent distress, oriented x3 and alert HENMT Common normals: normocephalic Eye Common normals: PERRL and EOMs intact bilaterally Respiratory Auscultation: wheezes and diminished lung sounds Cardio Common normals: regular rate, regular rhythm, no gallops, no murmurs and no rub GI Common normals: Normal to inspection, nondistended, normoactive bowel sounds present and non-tender Extremity Common normals: no pedal edema Progress Note: Objective Labs Labs: Short CBC 06/18/23 Range/Units 04:56 WBC 13.3 H (4.0-11.0) 10^3/uL Hgb 14.4 (14.0-18.0) g/dL Hct 44.5 (42.0-54.0) % Plt Count 215 (150-450) 10^3/uL BMP 06/18/23 04:56 Sodium 135 L Potassium 4.8 Chloride 96 L Carbon Dioxide 38.7 H BUN 15.0 Creatinine 0.76 Glucose 148 H Calcium 9.1 Progress Note: A&P Assessment and Plan (1) Atrial fibrillation with rapid ventricular response: (2) Pneumonia: (3) COPD exacerbation: (4) Benign essential hypertension: (5) Coronary artery disease: (6) Edema of both lower legs: Plan Patient continues to have SOB along with poor air movement and wheezing on exam. Continue antibiotics, steroids, and breathing treatments. Continues to have tachycardia and increase lopressor to 100 BID. Increase ambulation around room. If continues to improve likely home in next 1-2 days.
[2023-06-18] MEDS: CEFTRIAXONE 1,000 MG in 0.9 % SODIUM CHLORIDE 50 ML 100 MG IV (20:04)
[2023-06-18] MEDS: ATORVASTATIN CALCIUM 40 MG TABLET PO (20:04)
[2023-06-18] MEDS: METOPROLOL TARTRATE 25 MG TABLET 100 MG PO (20:09)
[2023-06-18] MEDS: AZITHROMYCIN 500 MG in 0.9 % SODIUM CHLORIDE 250 ML 200 MG IV (20:44)
[2023-06-18] MEDS: BUDESONIDE 0.5 MG/2 ML AMPULE NEB IH (21:19)
[2023-06-18] MEDS: IPRATROPIUM/ALBUTEROL SULFATE 3 ML AMPUL.NEB IH (21:19)
[2023-06-19] VITALS (23 sets, daily range): BP systolic 133–157; BP diastolic 77–93; PULSE 62–126; RESP 18–22; TEMP 36.3–36.8; O2SAT 91–95; BMI 56.3
[2023-06-19] MEDS: METHYLPREDNISOLONE SOD SUCC PF 125 MG/2 ML VIAL 60 MG IVP ×4 (04:15→23:12)
[2023-06-19] MEDS: IPRATROPIUM/ALBUTEROL SULFATE 3 ML AMPUL.NEB IH ×4 (05:14→20:11)
[2023-06-19 06:10] LABS: Basophils Percent Auto 0.1 % (0.2-2.0); Hematocrit 44.8 % (42.0-54.0); Hemoglobin 14.5 g/dL (14.0-18.0); Immature Granulocytes Abs Auto 0.24 10^3/uL (0.00-0.03); Immature Granulocytes Pct Auto 2.1 % (0.0-0.5); Lymphocytes Absolute Auto 0.5 10^3/uL (1.2-3.8); Lymphocytes Percent Auto 4.4 % (20.5-60.0); Mean Corpuscular HGB Conc 32.4 g/dL (29.9-35.2); Mean Corpuscular Hemoglobin 31.5 pg (25.9-34.0); Mean Corpuscular Volume 97.4 fL (80.0-94.0); Mean Platelet Volume 10.8 fL (9.5-13.5); Monocytes Absolute Auto 0.3 10^3/uL (0.3-0.8); Monocytes Percent Auto 2.6 % (1.7-12.0); Neutrophils Absolute Auto 10.2 10^3/uL (1.4-6.5); Neutrophils Percent Auto 90.8 % (43.0-75.0); Platelet Count 219 10^3/uL (150-450); Red Cell Distribution Width 11.9 % (11.0-15.0); White Blood Count 11.3 10^3/uL (4.0-11.0)
[2023-06-19 06:46] LABS: Anion Gap 6.7; BUN Creatinine Ratio 17.8; Carbon Dioxide 39.3 mmol/L (21.0-32.0); Chloride 95 mmol/L (98-107); Estimated GFR (African America >60 (>=60); Estimated GFR (Non-African Ame >60 (>=60); Glucose 288 mg/dL (74-106); Sodium 137 mmol/L (136-145)
[2023-06-19] MEDS: APIXABAN 5 MG TABLET PO ×2 (08:41→19:30)
[2023-06-19] MEDS: DILTIAZEM HCL 240 MG CAP.ER.24H PO (08:41)
[2023-06-19] MEDS: FUROSEMIDE 20 MG TABLET PO (08:42)
[2023-06-19] MEDS: POTASSIUM CHLORIDE 10 MEQ ER TABLET 20 MEQ PO (08:42)
[2023-06-19] MEDS: LOSARTAN POTASSIUM 50 MG TABLET PO (08:42)
[2023-06-19] MEDS: METOPROLOL TARTRATE 25 MG TABLET 100 MG PO ×2 (08:42→19:29)
[2023-06-19] MEDS: BUDESONIDE 0.5 MG/2 ML AMPULE NEB IH ×2 (11:54→20:10)
--- NOTE | 2023-06-19 12:00 | CM.NOTE ---
Rounds made with Dr. Pérez. No plan for discharge today. Dr. Pérez would like to continue the treatment plan for one more day at least. Mr. Duong in agreement.
--- NOTE | 2023-06-19 12:01 | PM.PN ---
Progress Note: Subjective Subjective Interval history: Patient unchanged this am. Continues to have SOB with exertion and mild cough. Difficulty staying active or walk around room due to symptoms. Quickly fatigues with exertion. Afebrile. Still with occasional tachycardia on telemetry and pulse 90s to low 100s but patient does not feel palpitations or heart racing. No chest pain or pressure. Normal appetite and no emesis or diarrhea. Exam Constitutional Vital Signs, click to edit/add: Last Vital Signs Temp 97.4 F L 06/19/23 04:18 Pulse 110 H 06/19/23 09:57 Resp 18 06/19/23 05:14 BP 150/89 H 06/19/23 08:41 Pulse Ox 93 L 06/19/23 11:55 O2 Del Method Nasal Cannula 06/19/23 11:55 O2 Flow Rate 4 06/19/23 11:55 Documenting provider has reviewed patient's vital signs: yes Common normals: no apparent distress, oriented x3 and alert HENMT Common normals: normocephalic Eye Common normals: PERRL and EOMs intact bilaterally Respiratory Auscultation: wheezes and diminished lung sounds Cardio Common normals: no gallops, no murmurs and no rub Rhythm: abnormal rhythm irregularly irregular GI Common normals: Normal to inspection, nondistended, normoactive bowel sounds present and non-tender Extremity Common normals: no pedal edema Progress Note: Objective Labs Labs: Short CBC 06/19/23 Range/Units 05:14 WBC 11.3 H (4.0-11.0) 10^3/uL Hgb 14.5 (14.0-18.0) g/dL Hct 44.8 (42.0-54.0) % Plt Count 219 (150-450) 10^3/uL BMP 06/19/23 05:14 Sodium 137 Potassium 4.0 Chloride 95 L Carbon Dioxide 39.3 H BUN 19.0 H Creatinine 1.07 Glucose 288 H Calcium 9.0 Progress Note: A&P Assessment and Plan (1) Atrial fibrillation with rapid ventricular response: (2) Pneumonia: (3) COPD exacerbation: (4) Benign essential hypertension: (5) Coronary artery disease: (6) Edema of both lower legs: Plan Pulse stable with oral medication. Cardiology to see later today for any additional recommendations. Continues to have poor air movement and fatigue with exertion. Continue antibiotics, steroids, and breathing treatments. Wean O2 as tolerated. Possibly home in next 1-2 days.
--- NOTE | 2023-06-19 17:01 | P.CACN_ITS ---
<Statement entered by Alejandro Lino MD - 07/18/23 12:48> This documentation has been reviewed and approved. I have reviewed and evaluated and agree with the plan as mentioned. History of Present Illness History of Present Illness Consult date: 06/19/23 Requesting physician: Mirza Pérez Chief complaint: sob Narrative: Consult for AF PMH: PAF, COPD, CAD patient presented to [facility] with cocnerns for SOB he wsa found to have PNA, he has been admitted frequently recently for respiratory issues related to AF and COPD Cardiology consulted for AF, he has hx of AF as well and was anticoagualated prior to arrival Today his telemetry appears as 2:1 atrial flutter , rate is well controlled on PO medication He states he cannot feel his palpitations and denies CP, lightheadedness, dizziness 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 [facility] He had TTE 03/2023 on last admission and had normal LVEF 65% Review of Systems ROS Cardiovascular Reports: palpitations and edema; Denies: lightheadedness Respiratory Reports: shortness of breath [facility] Medical History (Updated 06/19/23 @ 11:45 by Mirza Pérez MD) Cellulitis ?L03.90 - Cellulitis, unspecified (ICD-10) Leukocytosis ?D72.829 - Elevated white blood cell count, unspecified (ICD-10) Asthma exacerbation ?J45.901 - Unspecified asthma with (acute) exacerbation (ICD-10) Prediabetes ?R73.03 - Prediabetes (ICD-10) Paroxysmal atrial fibrillation ?I48.0 - Paroxysmal atrial fibrillation (ICD-10) COPD (chronic obstructive pulmonary disease) ?J44.9 - Chronic obstructive pulmonary disease, unspecified (ICD-10) CATERINA (obstructive sleep apnea) ?G47.33 - Obstructive sleep apnea (adult) (pediatric) (ICD-10) Cellulitis ?L03.90 - Cellulitis, unspecified (ICD-10) Surgical History (Updated 04/08/23 @ 13:25 by Zuleyka Merritt) Hx of cholecystectomy ?Z90.49 - Acquired absence of other specified parts of digestive tract (ICD- 10) H/O heart artery stent ?Z95.5 - Presence of coronary angioplasty implant and graft (ICD-10) Social History Within the past year, how often did you have a drink containing alcohol: never Score interpretation: A score less than 4 is consistent with normal alcohol consumption. Smoking status: Former smoker Meds Home Medications and Allergies Home Medications Medication Instructions Recorded Confirmed Type atorvastatin 40 mg tablet 40 mg PO Q24H 04/08/23 06/16/23 History losartan 50 mg tablet 50 mg PO Q24H 04/08/23 06/16/23 History apixaban 5 mg tablet (Eliquis) 5 mg PO BID 30 days #60 tabs 04/10/23 06/16/23 Rx diltiazem HCl 240 mg 240 mg PO DAILY #30 caps 04/10/23 06/16/23 Rx capsule,extended release 24 hr levalbuterol tartrate 45 2 inh inhalation Q4H PRN shortness 04/10/23 06/16/23 Rx mcg/actuation aerosol inhaler of breath or wheezing #15 grams levofloxacin 750 mg tablet 750 mg PO DAILY 5 days #5 tabs 04/10/23 06/16/23 Rx metoprolol tartrate 25 mg tablet 25 mg PO BID 30 days #60 tabs 04/10/23 06/16/23 Rx prednisone 10 mg tablet See Rx Instructions .Route 04/10/23 Rx .COMPLEX #42 tabs clindamycin HCl 150 mg capsule 300 mg (2 x 150 mg) PO Q6H 10 days 06/04/23 06/16/23 Rx #80 caps hydrocodone 5 mg-acetaminophen 325 1 tab PO Q6H PRN pain #12 tabs 06/04/23 06/16/23 Rx mg tablet benzonatate 200 mg capsule 200 mg PO .every 8 hours PRN cough 06/16/23 06/16/23 History furosemide 20 mg tablet 20 mg PO DAILY 06/16/23 06/16/23 History potassium chloride 10 mEq 20 meq PO DAILY 06/16/23 06/16/23 History tablet,extended release(part/cryst) (Klor-Con M) Allergies Allergy/AdvReac Type Severity Reaction Status Date / Time No Known Drug Allergies Allergy Verified 04/08/23 07:42 Exam Constitutional Vital Signs, click to edit/add: Last Vital Signs Temp 98.2 F 06/19/23 14:00 Pulse 108 H 06/19/23 16:00 Resp 22 06/19/23 14:00 BP 150/86 H 06/19/23 14:00 Pulse Ox 92 L 06/19/23 16:13 O2 Del Method Nasal Cannula 06/19/23 16:13 O2 Flow Rate 4 06/19/23 16:13 Cardio Common normals: no JVD and regular rate; irregular rhythm Rate: regular rate Rhythm: abnormal rhythm Extremity General: edema (chronic and stable ) Results Labs and Meds Lab results: CBC 06/19/23 Range/Units 05:14 WBC 11.3 H (4.0-11.0) 10^3/uL RBC 4.60 L (4.70-6.10) 10^6/uL Hgb 14.5 (14.0-18.0) g/dL Hct 44.8 (42.0-54.0) % Plt Count 219 (150-450) 10^3/uL Neut # (Auto) 10.2 H (1.4-6.5) 10^3/uL Lymph # (Auto) 0.5 L (1.2-3.8) 10^3/uL [place] # (Auto) 0.3 (0.3-0.8) 10^3/uL Eos # (Auto) 0.0 (0.0-0.7) 10^3/uL Baso # (Auto) 0.0 (0.0-0.1) 10^3/uL Comprehensive Metabolic Panel 06/19/23 Range/Units 05:14 Sodium 137 (136-145) mmol/L Potassium 4.0 (3.5-5.1) mmol/L Chloride 95 L (98-107) mmol/L Carbon Dioxide 39.3 H (21.0-32.0) mmol/L BUN 19.0 H (7.0-18.0) mg/dL Creatinine 1.07 (0.70-1.30) mg/dL Glucose 288 H (74-106) mg/dL Calcium 9.0 (8.5-10.1) mg/dL Intake and Output 06/19/23 06/19/23 06/19/23 07:59 15:59 23:59 Intake Total 480 / 2600 840 / 840 Balance 480 / 2600 840 / 840 Intake: Oral 480 / 2300 840 / 840 Other: # Voids 4 # Bowel Movements 2 Weight 167.9 kg Patient Weight 06/20/23 07:59 Weight 167.9 kg EKG Interpretation ECG shows: tachycardia and atrial fibrillation (atrial flutter ) Assessment and Plan Assessment and Plan (1) Atrial fibrillation with rapid ventricular response: Assessment and Plan: Rhythm appears like 2:1 atrial flutter Discussed with patient goal with him will be aiming for rate control and needs to discuss with belt operator regarding ablation Normal LVEF on tte 03/2023 so no need for new tte rate is controlled on diltiazem 240mg, toprol tartrate 25mg BID and takes eliquis 5mg BID [id number] at least 2 for htn and noted hx of CAD (2) Pneumonia: (3) COPD exacerbation: (4) Benign essential hypertension: Assessment and Plan: -elevated, consider increasing losartan to 100mg daily (5) Coronary artery disease: (6) Edema of both lower legs: Assessment and Plan: stable and controlled on PO lasix 20mg Plan goal for rhythm is rate control - seems to be achieved on PO cardizem + toprol -needs to follow up with his primary belt operator in 1-2 weeks to discuss AF/AFL management
[2023-06-19] MEDS: ATORVASTATIN CALCIUM 40 MG TABLET PO (19:30)
[2023-06-19] MEDS: BENZONATATE 100 MG CAPSULE 200 MG PO (19:30)
[2023-06-19] MEDS: CEFTRIAXONE 1,000 MG in 0.9 % SODIUM CHLORIDE 50 ML 100 MG IV (19:31)
[2023-06-19] MEDS: AZITHROMYCIN 500 MG in 0.9 % SODIUM CHLORIDE 250 ML 200 MG IV (20:16)
[2023-06-20] VITALS (10 sets, daily range): BP systolic 151; BP diastolic 79; PULSE 72–136; RESP 18; TEMP 36.4; O2SAT 93–95
[2023-06-20] MEDS: IPRATROPIUM/ALBUTEROL SULFATE 3 ML AMPUL.NEB IH ×2 (04:06→10:44)
[2023-06-20] MEDS: METHYLPREDNISOLONE SOD SUCC PF 125 MG/2 ML VIAL 60 MG IVP (05:00)
[2023-06-20 05:25] LABS: Basophils Percent Auto 0.1 % (0.2-2.0); Hematocrit 44.4 % (42.0-54.0); Hemoglobin 14.6 g/dL (14.0-18.0); Immature Granulocytes Abs Auto 0.09 10^3/uL (0.00-0.03); Immature Granulocytes Pct Auto 0.9 % (0.0-0.5); Lymphocytes Absolute Auto 0.5 10^3/uL (1.2-3.8); Lymphocytes Percent Auto 4.9 % (20.5-60.0); Mean Corpuscular HGB Conc 32.9 g/dL (29.9-35.2); Mean Corpuscular Hemoglobin 31.9 pg (25.9-34.0); Mean Corpuscular Volume 96.9 fL (80.0-94.0); Mean Platelet Volume 10.4 fL (9.5-13.5); Monocytes Absolute Auto 0.4 10^3/uL (0.3-0.8); Monocytes Percent Auto 4.2 % (1.7-12.0); Neutrophils Absolute Auto 9.1 10^3/uL (1.4-6.5); Neutrophils Percent Auto 89.9 % (43.0-75.0); Platelet Count 245 10^3/uL (150-450); Red Blood Count 4.58 10^6/uL (4.70-6.10); Red Cell Distribution Width 12.1 % (11.0-15.0); White Blood Count 10.1 10^3/uL (4.0-11.0)
[2023-06-20 05:34] LABS: Anion Gap 3.3; BUN Creatinine Ratio 22.5; Carbon Dioxide 42.7 mmol/L (21.0-32.0); Chloride 96 mmol/L (98-107); Estimated GFR (African America >60 (>=60); Estimated GFR (Non-African Ame >60 (>=60); Glucose 209 mg/dL (74-106); Sodium 138 mmol/L (136-145)
[2023-06-20] MEDS: LOSARTAN POTASSIUM 50 MG TABLET PO (09:49)
[2023-06-20] MEDS: FUROSEMIDE 20 MG TABLET PO (09:49)
[2023-06-20] MEDS: APIXABAN 5 MG TABLET PO (09:50)
[2023-06-20] MEDS: DILTIAZEM HCL 240 MG CAP.ER.24H PO (09:50)
[2023-06-20] MEDS: METOPROLOL TARTRATE 25 MG TABLET 100 MG PO (09:50)
[2023-06-20] MEDS: POTASSIUM CHLORIDE 10 MEQ ER TABLET 20 MEQ PO (09:50)
--- NOTE | 2023-06-20 10:32 | CM.NOTE ---
Rounding with Dr. Pérez. Oxygen at 4 liters at this time. Discussed need to possibly increase oxygen from 3-4 at home and ensure he has portable oxygen at home. RN voices patient has been up around in room without issues except for increased heartrate. Patient states someone is always with him at home. No other identified needs at this time.
--- NOTE | 2023-06-20 10:35 | CM.NOTE ---
Called [facility] about port[facility] for pt at home. Order needs to be faxed. Discussed with Dr. Pérez and obtained new order and faxed clinical to [facility]. Pt also now requiring 4L NC.
[2023-06-20] MEDS: BUDESONIDE 0.5 MG/2 ML AMPULE NEB IH (10:44)
--- NOTE | 2023-06-20 11:31 | P.DS_ITS ---
DS: Providers Provider Date of admission: 06/16/23 05:12 Primary care physician: Eusebia Terrell Consults: 06/16/23 06:09 Consult to Cardiology Routine Reason for consultation: PAFIb with RVR Has provider been notified: No DS: Diagnosis Discharge Diagnosis (1) Atrial fibrillation with rapid ventricular response: (2) Pneumonia: (3) COPD exacerbation: (4) Benign essential hypertension: (5) Coronary artery disease: (6) Edema of both lower legs: DS: Summary Hospital Course Hospital Course: Reason for admission: See H&P for details. 57 y/o male to ER with SOB and cough. C/o symptoms for several days and PCP placed on levaquin and prednisone. Continued cough and yellow sputum. Increased fatigue and SOB. To ER and EMS noted tachycardia. In ER found rapid afib. Temp 99.9. Chest x-ray with pneumonia and WBC normal. Continued rapid afib and started cardizem drip. Admitted for treatment. Hospital course: Started rocphin and zithromax for pneumonia. Started solu- medrol and Xopenex for COPD. Slowly improved in the hospital. Resumed oral c ardizem and increased metoprolol. Weaned off cardizem drip. Continued to have tachycardia with exertion and increased metoprolol to 100 BID. Breath sounds continued to be diminished with expiratory wheezing. Slowly able to increase ambulation around room. Remained on 4 LPM and not able to wean off oxygen without desaturation. Breathing stale and ambulating around room. Discharged home in stable condition. Arranged for home O2 with portability at 4 LPM. Take zithromax and cefdinir for pneumonia. Take prednisone and use DubNeb aerosols for COPD. Continued increased dose lopressor and resume other home medication as directed. F/u with PCP in 1-2 weeks. Time Spent with Patient Time attestation: Total time spent providing and/or coordinating discharge services: Exam Constitutional Vital Signs, click to edit/add: Last Vital Signs Temp 97.6 F 06/20/23 04:59 Pulse 130 H 06/20/23 10:00 Resp 18 06/20/23 04:59 BP 151/79 H 06/20/23 04:59 Pulse Ox 95 06/20/23 10:45 O2 Del Method Nasal Cannula 06/20/23 10:45 O2 Flow Rate 4 06/20/23 10:45 Documenting provider has reviewed patient's vital signs: yes Common normals: no apparent distress, oriented x3 and alert HENMT Common normals: normocephalic Eye Common normals: PERRL and EOMs intact bilaterally Respiratory Auscultation: wheezes and diminished lung sounds Cardio Common normals: regular rate, no gallops, no murmurs and no rub Rhythm: abnormal rhythm irregularly irregular GI Common normals: Normal to inspection, nondistended, normoactive bowel sounds present and non-tender Extremity Common normals: no pedal edema DS: Data Data Completed and Pending Labs on day of discharge: Labs from last 24 hours 06/20/23 04:54 WBC 10.1 RBC 4.58 L Hgb 14.6 Hct 44.4 MCV 96.9 H MCH 31.9 MCHC 32.9 RDW 12.1 Plt Count 245 MPV 10.4 Neut % (Auto) 89.9 H Lymph % (Auto) 4.9 L [place]elope % (Auto) 4.2 Eos % (Auto) 0.0 L Baso % (Auto) 0.1 L Neut # (Auto) 9.1 H Lymph # (Auto) 0.5 L [place]elope # (Auto) 0.4 Eos # (Auto) 0.0 Baso # (Auto) 0.0 Abs Immat Gran (auto) 0.09 H Imm/Tot Granulo (auto) 0.9 H Sodium 138 Potassium 4.0 Chloride 96 L Carbon Dioxide 42.7 H Anion Gap 3.3 BUN 18.0 Creatinine 0.80 Est GFR ( Amer) >60 Est GFR (Non-Af Amer) >60 BUN/Creatinine Ratio 22.5 Glucose 209 H Calcium 9.0 Preliminary micro results at discharge 06/16/23 01:53 - Preliminary Blood NO GROWTH AT 36-48 HOURS. FINAL TO FOLLOW. 06/16/23 01:42 Blood Culture Result 1 - Preliminary Blood NO GROWTH AT 36-48 HOURS. FINAL TO FOLLOW. Discharge Plan Discharge Disposition: Home, Self-Care Discharge Medications: New ipratropium-albuterol 0.5 mg-3 mg(2.5 mg base)/3 mL Solution For Nebulization 3 ml inhalation Q4H PRN (Reason: shortness of breath or wheezing) Qty: 180 0RF azithromycin [Zithromax] 250 mg tablet 250 mg PO DAILY 4 Days Qty: 4 0RF Rx Instructions: start on day 2 of therapy prednisone 10 mg tablets,dose pack 10 mg PO DAILY Qty: 39 0RF Rx Instructions: 6 PO daily x 3 days, then 4 PO daily x 3 days, then 2 PO daily x 3 days, then 1 PO daily x 3 days cefdinir 300 mg capsule 300 mg PO BID 10 Days Qty: 20 0RF metoprolol tartrate 100 mg tablet 100 mg PO BID Qty: 60 0RF Continued atorvastatin 40 mg tablet 40 mg PO Q24H losartan 50 mg tablet 50 mg PO Q24H diltiazem HCl 240 mg capsule,extended release 24hr 240 mg PO DAILY Qty: 30 0RF Eliquis 5 mg Tablet 5 mg PO BID 30 Days Qty: 60 0RF levalbuterol tartrate 45 mcg/actuation HFA aerosol inhaler 2 inh inhalation Q4H PRN (Reason: shortness of breath or wheezing) Qty: 15 0RF hydrocodone-acetaminophen 5-325 mg tablet 1 tab PO Q6H PRN (Reason: pain) Qty: 12 0RF Hold Instructions: not on Rx Instructions: DX: L03.119 benzonatate 200 mg capsule 200 mg PO .every 8 hours PRN (Reason: cough) furosemide 20 mg tablet 20 mg PO DAILY potassium chloride [Klor-Con M10] 10 mEq tablet,ER particles/crystals 20 meq PO DAILY Discontinued metoprolol tartrate 25 mg Tablet 25 mg PO BID 30 Days Qty: 60 0RF levofloxacin 750 mg tablet 750 mg PO DAILY 5 Days Qty: 5 0RF Hold Instructions: not taking prednisone 10 mg tablet See Rx Instructions .ROUTE .COMPLEX Qty: 42 0RF Rx Instructions: 6 tabs daily x 2 days, then 5 tabs daily x 2 days, then 4 tabs daily x 2 days, then 3 tabs daily x 2 days, then 2 tabs daily x 2 days, then 1 tab daily x 2 days, then STOP clindamycin HCl 150 mg capsule 300 mg PO Q6H 10 Days Qty: 80 0RF Activity: resume usual activities as tolerated Diet: advance to your usual diet Forms: Portal Instructions Follow Up Appointments: @ 10:40am with Eusebia Terrell, [facility] [phone] @ 1:45pm with Dr. Covington - Cardiology [facility] [phone]
--- NOTE | 2023-06-20 11:40 | CM.NOTE ---
Called [employer], they will deliver tank to hospital for pt's discharge. Pt also will be set up with portability.
--- NOTE | 2023-06-20 11:41 | CM.NOTE ---
Update given to pt and RN regarding delivery of oxygen tank to hospital.
--- NOTE | 2023-06-21 14:20 | CM.DCFOLLOWU ---
First attempt for discharge follow up call. Call went directly to voice mail. Unable to reach patient at this time.
--- NOTE | 2023-06-22 11:26 | CM.DCFOLLOWU ---
Second attempt at discharge follow up call, call went directly to voicepail. Unable to reach patient at this time.
== END 2023-06-20 14:08 | disposition home or self-care (01) | DRG 308 ==
LOC: ER 00:16 → ICU 05:15 → MS 06-17 15:01
PROVIDERS: Admitting Provider Family Medicine; Emergency Provider Emergency Medicine; PCP Nurse Practitioner; Visit Provider Family Medicine
DX: I48.0 Paroxysmal atrial fibrillation (principal); J18.9 Pneumonia, unspecified organism; J44.0 Chronic obstructive pulmonary disease with (acute) lower respiratory infection; J44.1 Chronic obstructive pulmonary disease with (acute) exacerbation; I25.10 Atherosclerotic heart disease of native coronary artery without angina pectoris; R60.0 Localized edema; I10 Essential (primary) hypertension; R73.03 Prediabetes; G47.33 Obstructive sleep apnea (adult) (pediatric); Z90.49 Acquired absence of other specified parts of digestive tract; Z95.5 Presence of coronary angioplasty implant and graft; Z87.891 Personal history of nicotine dependence; Z79.01 Long term (current) use of anticoagulants; Z79.899 Other long term (current) drug therapy
CPT/HCPCS: 36415; 71045; 80048; 83880; 84484; 85025; 87040; 87635; 87804; 87811; 93005; 94640; 94667; 94668; 94761; 96365; 96366; 96367; 96368; 96375; 96376; 99285; J0456; J2930; Q3014

== ENCOUNTER 2023-08-06 10:08 | Outpatient (OUT) | payer OTHER, SELFPAY ==
--- OUTSIDE RECORDS SUMMARY | 2023-08-06 10:13 | XMS_ITS | CCD ---
Author Name Unknown Address [id number] [place] [address] Organization [facility] Care Team Providers Care Windshield Technician Name Role Phone MADISON CHRISTIAN Unavailable Unavailable NO FAMILY DOCTOR, NO FAMILY DOCTOR Unavailable Unavailable Eusebia Terrell Unavailable Unavailable Unavailable Anahi, Dr. Scott Referring Unavaila denis Christian, Dr. Scott Attending Unavaila ble Socorrohgallo, Mrs. Eusebia Rondon Primary Care Unavailab JUSTYN Lomeli Attending Leyla vailable Xander, Mrs. Eusebia Rondon Primary Care Unavailab JUSTYN Lomeli Referring Leyla vailable Brenton, NATALIA Arellano Referring Unavailable Brenton, NATALIA Arellano Attending Unavailable Xander, Mrs. Eusebia Rondon Primary Care Unavailab le Anahi, Dr. Scott Referring Unavaila denis Christian, Dr. Scott Attending Unavaila ble Socorrohholayden, Mrs. Eusebia Rondon Primary Care Unavailab le SOCORROHHOLAyden, NURSE AIDE EVALUATOR EUSEBIA Primary Care Unavailable BRENTON, DR VIDHI Biswas Consulting Unavailable BRENTON, DR VIDHI Biswas Admitting Unavailable BRENTON, DR VIDHI Biswas Attending Unavailable EUSEBIA VICTORIA Consulting Unavailable MARCO ANTONIO FRIEDMAN Consulting Unavailable AICHHOLZ, NURSE AIDE EVALUATOR EUSEBIA Primary Care Unavailable TED SUNG Admitting Unavailable ANNAMARIE Sue, TED Attending Unavailable ANNAMARIE ., TED Consulting Unavailable ROBERTA PERRIN Consulting Unavailable ROBERTA PERRIN Attending Unavailable UBALDO PERRINYL Admitting Unavailable AICHHOLZ, NURSE AIDE EVALUATOR EUSEBIA Primary Care Unavailable TYESHA, MARLENE Consulting Unavailable AICHHOLZ, NURSE AIDE EVALUATOR EUSEBIA Primary Care Unavailable AYDIN, ROBERTA Admitting Unavailable ROBERTA PERRIN Attending Unavailable AYDIN, ROBERTA Consulting Unavailable Nery Mckeon Consulting Unavailable AICHHOLZ, NURSE AIDE EVALUATOR EUSEBIA Primary Care Unavailable CAM Sue, DR CONNOLLY Admitting Unavailable CAM ., DR CONNOLLY Attending Unavailable RAFAEL, DR MARCO ANTONIO Stewart Consulting Unavailable CLARY RODARTE Consulting Unavailable AICHHOLZ, NURSE AIDE EVALUATOR EUSEBIA Primary Care Unavailable BRENTON, DR VIDHI Biswas Admitting Unavailable BRENTON, DR VIDHI Biswas Attending Unavailable BRENTON, DR VIDHI Biswas Consulting Unavailable DONG BUNDY Consulting Unavailable ANNAMARIE .TED Consulting Unavailable ANNAMARIE ., TED Attending Unavailable ANNAMARIE ., TED Admitting Unavailable AICHHOLZ, NURSE AIDE EVALUATOR EUSEBIA Primary Care Unavailable Dawit, Leo Consulting Unavailable ROMEO .DR FRANCO Consulting Unavailable ROMEO ., DR FRANCO Attending Unavailable AICHHOLZ, NURSE AIDE EVALUATOR EUSEBIA Primary Care Unavailable ROMEO .DR FRANCO Admitting Unavailable CAM ., DR CONNOLLY Consulting Unavailable ROBERTA PERRIN Consulting Unavailable SANDEEP MARY Consulting Unavailable AICHHOLZ, NURSE AIDE EVALUATOR EUSEBIA Consulting Unavailable AICHHOLZ, NURSE AIDE EVALUATOR EUSEBIA Primary Care Unavailable AICHHOLZ, NURSE AIDE EVALUATOR EUSEBIA Attending Unavailable AICHHOLZ, NURSE AIDE EVALUATOR EUSEBIA Admitting Unavailable MISC, DR DAVIS Consulting Unavailable AICHHOLZ, NURSE AIDE EVALUATOR EUSEBIA Primary Care Unavailable MISC, DR DAVIS Attending Unavailable MISC, DR DAVIS Admitting Unavailable ZIEBER, DR KESHAWN Biswas Consulting Unavailable AICHHOLZ, NURSE AIDE EVALUATOR EUSEBIA Primary Care Unavailable RICA YE Attending Unavailable RICA YE Admitting Unavailable RICA YE Consulting Unavailable AICHHOLZ, NURSE AIDE EVALUATOR EUSEBIA Consulting Unavailable AICHHOLZ, NURSE AIDE EVALUATOR EUSEBIA Primary Care Unavailable AICHHOLZ, NURSE AIDE EVALUATOR EUSEBIA Attending Unavailable AICHHOLZ, NURSE AIDE EVALUATOR EUSEBIA Admitting Unavailable AICHHOLZ, NURSE AIDE EVALUATOR EUSEBIA Admitting Unavailable AICHHOLZ, NURSE AIDE EVALUATOR EUSEBIA Attending Unavailable AICHHOLZ, NURSE AIDE EVALUATOR EUSEBIA Primary Care Unavailable AICHHOLZ, NURSE AIDE EVALUATOR EUSEBIA Consulting Unavailable MIRZA GUZMÁN Attending Unavailable MIRZA GUZMÁN Admitting Unavailable DR SALVADOR COBIAN Consulting Unavailable AICHHOLZ, NURSE AIDE EVALUATOR EUSEBIA Primary Care Unavailable BABITA .DR SCOTT Consulting Unavailable MIRZA GUZMÁN Consulting Unavailable NIKOLAY .KARISHMA Consulting UnavailJuanjose Sue, DR CONNOLLY Consulting Unavailable KESHAWN ALAVREZ Consulting Unavailable Aichholz, Mrs. Eusebia Nela Primary Care Unavailab TEQUILA Card Attending Unavailable Aichholz, Mrs. Eusebia Nela Primary Care Unavailab annie TEQUILA JAFFE Attending Unavailable Xander LEATHER GOODS II ASSEMBLER-NATALIAEusebia Primary Care Provider JUSTYN MONDRAGON Attending Unavail able XANDER EUSEBIA RONDON Primary Care Unavailable Xander SYNOPTIC METEOROLOGIST, Eusebia Unavailable Mirza Guzmán MD Primary Care Provider EUSEBIA TERRELL Attending Unavailable EUSEBIA TERRELL Attending Unavailable EUSEBIA TERRELL Attending Unavailable EUSEBIA TERRELL Attending Unavailable LILLY CAMPBELL Referring Unavailable TRACE HERRERA Primary Care Unavailable SAM QUIROZ Attending Unavailable EUSEBIA TERRELL Referring Unavailable Unavailable Unavailable Unavailable Allergies Allergy Classification Reported Allergen(s) Allergy Type Date of Onset Reaction(s) Facility (4 sources) Lisinopril; Translations: [Lisinopril TABS] Drug Allergy 04-12-2023 [facility] (5 sources) Lisinopril; Translations: [LISINOPRIL] Drug Allergy 04-12-2023 [facility] 3 Repository Medications Current Medications Medication Drug Class(es) Dates Sig (Normalized) Sig (Original) apixaban 5 mg oral tablet (4 sources) Factor Xa Inhibitor Start: 07-14-2023 End: 08-13-2023 take 1 tablet by mouth in the morning apixaban (Eliquis) 5 MG tablet Indications: Atrial fibrillation, unspecified type (CMS/HCC) Take 1 tablet (5 mg) by mouth in the morning and 1 tablet (5 mg) before bedtime. 60 tablet 2 07/14/2023 08/13/2023 Active take 1 tablet by mouth twice raegan ly apixaban (Eliquis) 5 mg tablet Take 1 tablet (5 mg) by mouth 2 times a day. 0 Active aspirin 81 mg delayed release oral tablet (16 sources) Platelet Aggregation Inhibitor, Nonsteroidal Anti-inflammatory Drug take 1 tablet by mouth in the morning aspirin 81 MG EC tablet Take 81 mg by mouth in the morning. 0 Active atorvastatin 40 mg oral tablet (18 sources) HMG-CoA Reductase Inhibitor Start: 2018 take 1 tablet by mouth once daily at bedtime atorvastatin (Lipitor) 40 mg tablet Take 1 tablet (40 mg) by mouth once daily at bedtime. 0 08/18/2020 Active cholecalciferol 1.25 mg oral capsule (4 sources) Vitamin D take 1 capsule by mouth in the morning cholecalciferol (Vitamin D-3) 1.25 MG (47023 UT) capsule Take 50,000 Units by mouth in the morning. 0 Active take 1 capsule by mouth once raegan ly cholecalciferol (Vitamin D-3) 50,000 unit capsule Take 1 capsule (50,000 Units) by mouth once daily. 0 Active 24 hr dilTIAZem hydrochloride 240 mg extended release oral capsule (20 sources) Calcium Channel Preet Start: 05-14-2023 take 1 capsule by mouth every twenty-four hours in the morning dilTIAZem CD (Cardizem CD) 240 MG 24 hr capsule Indications: Atrial Fibrillation , Hypertension Take 1 capsule (240 mg) by mouth in the morning. 30 capsule 3 05/14/2023 Active Start: 03-27-2020 End: 04-13-2023 take 1 capsule by mouth once daily dilTIAZem XR (DILT-XR) 180 mg 24 hr capsule Take 1 capsule (180 mg) by mouth once daily. 0 03/27/2020 04/13/2023 Discontinued (Therapy completed) Start: 03-27-2020 take 1 capsule by [facility] every twenty-four hours Dilt-XR 180 MG Oral Capsule Extended Release 24 Hour Quantity: 90 Refills: 0 Ordered: 17-Dec-2020 DO Start : 27-Mar-2020 Complete Start: 04-24-2019 take 180 mg by mouth once daily in the morning Diltiazem Hcl Active 180 MG Oral Every morning April 24, 2019 11:20am take 1 capsule by [facility] once daily dilTIAZem CD (Cardizem CD) 240 mg 24 hr capsule Take 1 capsule (240 mg) by mouth once daily. 0 Active fluticasone propionate 0.05 mg/actuat metered dose nasal spray (3 sources) Corticosteroid Start: 06-28-2023 End: 06-27-2024 take 1-2 spray(s) nasal route in the morning fluticasone (Flonase) 50 MCG/ACT nasal spray Indications: Acute cough Administer 1-2 sprays into each nostril in the morning. Shake gently. Before first use, prime pump. After use, clean tip and replace cap.. 48 g 1 07/23/2023 10/21/2023 Active 30 actuat fluticasone furoate 0.1 mg/actuat / umeclidinium 0.0625 mg/actuat / vilanterol 0.025 mg/actuat dry powder inhaler (6 sources) Anticholinergic, Corticosteroid, beta2-Adrenergic Agonist Start: 05-14-2023 take 1 puff(s) by mouth in the morning Fluticasone-Umecl idin-Vilant (Trelegy Ellipta) 100-62.5-25 MCG/ACT aerosol powder Indications: Chronic obstructive pulmonary disease, unspecified COPD type (CMS/HCC) Use 1 puff in the mouth or throat in the morning. Rinse mouth after use. 1 each 2 05/14/2023 Active Start: 03-28-2020 take 1 puff(s) by mo uth once daily Trelegy Ellipta 100-62.5-25 MCG/INH Inhalation Aerosol Powder Breath Activated INL 1 PUFF PO D Quantity: 60 Refills: 0 Ordered: 19-May-2020 DO Start : 28-Mar-2020 Complete Start: 04-24-2019 Fluticasone-Um eclidin-Vilanter Active 1 INH Inhalation Daily April 24, 2019 11:20am chxmdsuzfpt-ksqithgro-uzjeie er (Trelegy Ellipta) 200-62.5-25 mcg blister with device (1 source) End: 04-13-2023 esasqftxoyv-updglsxva-opyxoy er (Trelegy Ellipta) 200-62.5-25 mcg blister with device Inhale once daily. 0 04/13/2023 Discontinued (Therapy completed) furosemide 20 mg oral tablet (4 sources) Loop Diuret ic Start: 07-02-2023 End: 09-30-2023 take 1 tablet by mouth in the mornin g furosemide (Lasix) 20 MG tablet Indications: Bilateral lower extremity edema Take 1 tablet (20 mg) by mouth in the morning. 90 tablet 1 07/02/2023 09/30/2023 Active End: 04-13-2023 furosemide (Lasix) 20 mg tab let Take by mouth once daily. 0 04/13/2023 Discontinued (Discontinued by another clinician) hydroCHLOROthiazide 25 mg oral tablet (9 sources) Thiazide Diuretic Start: 08-18-2020 End: 04-13-2023 take 1 tablet by mouth once daily hydroCHLOROthiazide (HYDRODiuril) 25 mg tablet Take 1 tablet (25 mg) by mouth once daily. 0 08/18/2020 04/13/2023 Discontinued (Therapy completed) Start: 04-24-2019 take 25 mg by mouth once daily in the morning Hydrochlorothiazide Active 25 MG Oral Every morning April 24, 2019 11:20am 200 actuat levalbuterol 0.045 mg/actuat metered dose inhaler (4 sources) beta2-Adrenergic Agonist Start: 07-02-2023 End: 08-01-2023 take 2 puff(s) by inhalation every six hours for wheezing levalbuterol (Xopenex) 45 MCG/ACT inhaler Indications: Chronic obstructive pulmonary disease, unspecified COPD type (CMS/HCC) Inhale 2 puffs every 6 (six) hours if needed for wheezing 15 g 2 07/02/2023 08/01/2023 Active levalbuterol (Xo penex) 45 mcg/actuation inhaler Inhale 1-2 puffs. 0 Active levoFLOXacin 750 mg oral tablet (1 source) Quinolone Antimicrobial levoFLOXacin (Levaquin) 750 mg tablet Take by mouth once daily. 0 Active lisinopril 5 mg oral tablet (12 sources) Angiotensin Converting Enzyme Inhibitor Start: 11-17-19 End: 04-13-20 23 take 1 tablet by mouth once daily [...] Oral Every morning April 24, 2019 11:20am loratadine 10 mg oral tablet (3 sources) Start: 06-28-2023 End: 10-21-2023 take 1 tablet by mouth in the morning loratadine (Claritin) 10 MG tablet Indications: Acute cough Take 1 tablet (10 mg) by mouth in the morning. 90 tablet 1 07/23/2023 10/21/2023 Active meloxicam 15 mg oral tablet (2 sources) Nonsteroidal Anti-inflammatory Drug Start: 04-24-2019 take 15 mg by mouth once daily Meloxicam Active 15 MG Oral Daily April 24, 2019 11:20am metoprolol tartrate 50 mg oral tablet (4 sources) beta-Adrenergic Preet Start: 07-02-2023 End: 09-30-2023 take 1 tablet by mouth in the morning metoprolol tartrate (Lopressor) 50 MG tablet Indications: Primary hypertension (CMS/HCC) , Paroxysmal atrial fibrillation (CMS/HCC) Take 1 tablet (50 mg) by mouth in the morning and 1 tablet (50 mg) before bedtime. 180 tablet 1 07/02/2023 09/30/2023 Active take 1 tablet by mouth twice raegan ly metoprolol tartrate (Lopressor) 25 mg tablet Take 1 tablet (25 mg) by mouth 2 times a day. 0 Active nitroglycerin 0.4 mg sublingual tablet (3 sources) Nitrate Vasodilator Start: 05-14-2023 nitroglycerin (Nitrostat) 0.4 MG SL tablet Indications: Chest pain due to CAD (CMS/HCC) Place 1 tablet (0.4 mg) under the tongue every 5 (five) minutes if needed for chest pain (may take a total of 3 doses, if not pain free by 3rd dose, call 911). 30 tablet 0 05/14/2023 Active microencapsulated potassium chloride 10 meq extended release oral tablet (9 sources) Start: 07-14-2023 End: 08-13-2023 take 2 tablets by mouth in the morning potassium chloride CR (KLOR-CON) 10 MEQ ER tablet Indications: Bilateral lower extremity edema , Hypokalemia Take 2 tablets (20 mEq) by mouth in the morning. 60 tablet 2 07/14/2023 08/13/2023 Active Start: 07-19-2022 take 1 tablet by tristan once daily at mealtime Klor-Con 10 10 MEQ Oral Tablet Extended Release TAKE 1 TABLET DAILY WITH FOOD. Quantity: 14 Refills: 0 Ordered: 1-Feb-2023 Justyn Mondragon MD Start : 19-Jul-2022 Active New to start for only 2 weeks please. thank you prednisoLONE 10 mg disintegrating oral tablet (1 source) Corticosteroid take 1 tablet by mouth once daily prednisoLONE ODT (OrapRED ODT) 10 mg disintegrating tablet Take 1 tablet (10 mg) by mouth once daily. 0 Active vitamin fwiplny-dbpk-xqcep ( Plus, calcium carb,) 27 mg iron- 1 mg tablet (1 source) Start: 1 End: 3 take 1 tablet by mouth once daily vitamin ncwevjt-slzf-swzfg ( Plus, calcium carb,) 27 mg iron- 1 mg tablet Take 1 tablet by mouth once daily. 0 01/03/2021 04/13/2023 Discontinued (Therapy completed) Completed/Discontinued Medications Medication Drug Class(es) Dates Sig (Normalized) Sig (Original) acetaminophen 325 mg / HYDROcodone bitartrate 5 mg oral tablet (1 source) Opioid Agonist Start: 1 HYDROcodone-Acetaminop hen 5-325 MG Oral Tablet Quantity: 20 Refills: 0 Ordered: 25-Feb-2021 DO Start : 25-Feb-2021 Complete [id number] 60 actuat albuterol 0.09 mg/actuat metered dose inhaler (1 source) beta2-Adrenergi c Agonist Start: 1 Albuterol Sulfate HFA 108 (90 Base) MCG/ACT Inhalation Aerosol Solution Quantity: 7 Refills: 0 Ordered: 06-Dec-2020 DO Start : 06-Dec-2020 Complete losartan potassium 50 mg oral tablet (7 sources) Angiotensin 2 Receptor Preet Start: 3 take 1 tablet by mouth once daily Losartan Potassium 50 MG Oral Tablet TAKE 1 TABLET DAILY. Quantity: 90 Refills: 3 Ordered: 18-Sep-2022 Justyn Mondragon MD Start : 15-Sep-2022 Active methylPREDNISolone 4 MG Oral Tablet Therapy Pack (1 source) Start: 1 methylPREDNISolone 4 MG Oral Tablet Therapy Pack Quantity: 21 Refills: 0 Ordered: 14-Aug-2020 DO Start : 14-Aug-2020 Complete PNV Plus Multivitamin 27-1 MG TABS (12 sources) Start: take 1 tablet by mouth once daily PNV Plus Multivitamin 27-1 MG TABS TAKE 1 TABLET BY MOUTH EVERY DAY Quantity: 90 Refills: 0 Ordered: 07-Apr-2021 DO Start : 03-Jan-2021 Active Trelegy Ellipta 200-62.5-25 MCG/ACT Inhalation Aerosol Powder Breath Activated (6 sources) Trelegy Ellipta 200-62.5-25 MCG/ACT Inhalation Aerosol Powder Breath Activated Once daily Quantity: 0 Refills: 0 Ordered: 19-Jul-2022 DO Active Vitamin D3 CAPS (8 sources) Vitamin D3 CAPS TAKE 1 CAPSULE Daily Quantity: 0 Refills: 0 Ordered: 12-Jan-2022 DO Active Problems Active Problems Problem Classification Problem Date Documented Date Episodic/Chronic Acute myocardial infarction (3 sources) Myocardial infarction; Translations: [Acute myocardial infarction, unspecified] Onset: 07-19-2023 07-19-2023 Chronic Cardiac dysrhythmias (20 sources) Paroxysmal atrial fibrillation; Translations: [Atrial fibrillation] Onset: 06-13-2022 Resolved: 07-19-2023 04-13-2023 Chronic Cardiac dysrhythmias (1 source) Cardiac dysrhythmias Onset: 08-23-2017 Chronic obstructive pulmonary disease and bronchiectasis (11 sources) Chronic obstructive pulmonary disease with (acute) exacerbation; Translations: [Chronic obstructive pulmonary disease, unspecified] Onset: 05-30-2022 Chronic Congestive heart failure; nonhypertensive (1 source) Unspecified diastolic (congestive) heart failure; Translations: [Unspecified diastolic (congestive) heart failure] Onset: 07-26-2023 Chronic Coronary atherosclerosis and other heart disease (20 sources) Disorder of coronary artery; Translations: [Coronary atherosclerosis of unspecified type of vessel, curyung or graft] Onset: 03-20-2014 Resolved: 07-19-2023 04-13-2023 Chronic Diabetes mellitus without complication (1 source) Type 2 diabetes mellitus without complications; Translations: [TYPE 2 DM WITHOUT COMPLICATIONS] Onset: 12-14-2021 Chronic Diabetes mellitus without complication (6 sources) Prediabetes; Translations: [Prediabetes] Onset: 06-13-2022 07-19-2023 Episodic Disorders of lipid metabolism (20 sources) Hyperlipidemia; Translations: [Other and unspecified hyperlipidemia] Onset: 03-20-2014 Resolved: 07-19-2023 Chronic Essential hypertension (20 sources) Hypertensive disorder; Translations: [Unspecified essential hypertension] Onset: 08-29-2022 04-13-2023 Chronic Essential hypertension (1 source) Essential hypertension Onset: 08-23-2017 Fluid and electrolyte disorders (4 sources) Hypokalemia; Translations: [Hypokalemia] Onset: 05-29-2022 07-14-2023 Episodic Immunizations and screening for infectious disease (1 source) Encounter for screening for other infectious and parasitic diseases; Translations: [ENC SCREENING OTH INF PARASITIC DZ] Onset: 10-28-2022 Episodic Other aftercare (1 source) long-term (current) use of aspirin; Translations: [CARE HOME CURRENT USE OF ASPIRIN] Onset: 08-29-2022 Episodic Other aftercare (1 source) Other group home (current) drug therapy; Translations: [OTH CARE HOME CURRENT DRUG THERAPY] Onset: 08-29-2022 Episodic Other diseases of veins and lymphatics (5 sources) Venous insufficiency of leg; Translations: [Venous insufficiency (chronic) (peripheral)] Onset: 07-19-2023 07-19-2023 Episodic Other liver diseases (1 source) Fatty (change of) liver, not elsewhere classified; Translations: [FATTY CHANGE LIVER NEC] Onset: 06-13-2022 Chronic Other liver diseases (3 sources) Steatosis of liver; Translations: [Fatty (change of) liver, not elsewhere classified] Onset: 09-21-2022 06-06-2023 Chronic Other lower respiratory disease (5 sources) Shortness of breath; Translations: [SHORTNESS OF BREATH] Onset: 05-30-2022 Episodic Other lower respiratory disease (5 sources) Hypoxia; Translations: [Hypoxemia] Onset: 06-28-2023 07-19-2023 Episodic Other lower respiratory disease (3 sources) Cough; Translations: [Acute cough] Onset: 06-12-2023 06-12-2023 Episodic Other nutritional; endocrine; and metabolic disorders (19 sources) Body mass index 40+ - severely [...] INDEX BMI 45.0-49.9 ADULT] Onset: 06-13-2022 Chronic Other nutritional; endocrine; and metabolic disorders (3 sources) Morbid obesity; Translations: [Morbid (severe) obesity due to excess calories] Onset: 03-20-2014 06-06-2023 Chronic Other screening for suspected conditions (not mental disorders or infectious disease) (9 sources) Encounter for screening for malignant neoplasm of prostate; Translations: [Patient encounter status] Onset: 01-17-2022 07-19-2023 Episodic Residual codes; unclassified (13 sources) Sleep apnea; Translations: [Unspecified sleep apnea] Onset: 04-12-2023 04-12-2023 Chronic Residual codes; unclassified (1 source) Sleep apnea, unspecified; Translations: [SLEEP APNEA UNSPECIFIED] Onset: 08-29-2022 Chronic Residual codes; unclassified (6 sources) Obstructive sleep apnea syndrome; Translations: [Obstructive sleep apnea (adult) (pediatric)] Onset: 05-25-2023 04-13-2023 Chronic Residual codes; unclassified (2 sources) Obstructive sleep apnea (adult) (pediatric); Translations: [Obstructive sleep apnea (adult) (pediatric)] Onset: 04-12-2023 Chronic Residual codes; unclassified (1 source) Acquired absence of other specified parts of digestive tract; Translations: [ACQ ABSENCE OTH PART DIGESTV TRACT] Onset: 08-29-2022 Episodic Residual codes; unclassified (2 sources) Localized edema; Translations: [LOCALIZED EDEMA] Onset: 01-09-2022 Episodic Residual codes; unclassified (2 sources) Other specified postprocedural states; Translations: [Other specified postprocedural states] Onset: 04-13-2023 Episodic Residual codes; unclassified (5 sources) Bilateral lower limb edema; Translations: [Localized edema] Onset: 06-06-2023 4 Episodic Skin and subcutaneous tissue infections (3 sources) Cellulitis of lower leg; Translations: [Cellulitis of left lower limb] Onset: 06-06-2023 06-06-2023 Episodic Sprains and strains (8 sources) Strain of left Achilles tendon, initial encounter; Translations: [Strain of muscle, fascia and tendon at neck level, initial encounter] Onset: 12-14-2021 Episodic Thyroid disorders (4 sources) Hypothyroidism, unspecified; Translations: [Thyroid nodule] Onset: 08-29-2022 07-19-2023 Chronic Unclassified (1 source) Pure hypercholesterolemia, unspecified / E78.00(ICD-9) Onset: 08-23-2017 Unclassified (1 source) Athscl heart disease of curyung coronary artery w/o ang pctrs / I25.10(ICD-9) [...] Translations: [LOW BACK PAIN, UNSPECIFIED] Onset: 12-14-2021 Unclassified (1 source) New Patient Onset: 07-26-2023 Viral infection (1 source) COVID-19; Translations: [COVID-19] Onset: 02-06-2022 Past or Other Problems Problem Classification Problem Date Documented Da te Episodic/Chronic Abdominal pain (1 source) Unspecified abdominal pain; Translations: [UNSPECIFIED ABDOMINAL PAIN] Onset: 05-30-2022 Episodic Coronary atherosclerosis and other heart disease (6 sources) Presence of coronary angioplasty implant and graft; Translations: [Coronary angioplasty status] Onset: 08-29-2022 Episodic E Codes: Fall (1 source) Fall on same level from slipping, tripping and stumbling with subsequent striking against other object, initial encounter; Translations: [FALL SAME LVL SLIP STRK OTH OBJ INT] Onset: 11-08-2021 Episodic E Codes: Natural/environment (2 sources) Other and unspecified overexertion or strenuous movements or postures, initial encounter; Translations: [Overexertion from strenuous movement or load, initial encounter] Onset: 12-14-2021 Episodic Nonspecific chest pain (5 sources) Chest [...] [SOLITARY PULMONARY NODULE] Onset: 11-08-2021 Episodic Other lower respiratory disease (3 sources) Nodule of lung; Translations: [Solitary pulmonary nodule] Onset: 09-21-2022 06-06-2023 Episodic Other upper respiratory infections (1 source) Acute upper respiratory infection, unspecified; Translations: [ACUTE UP RESPIRATORY INFECTION UNS] Onset: 05-30-2022 Episodic Phlebitis; thrombophlebitis and thromboembolism (1 source) Acute embolism and thrombosis of unspecified deep veins of lower extremity, bilateral; Translations: [AC EMBO THROMB UNS DP VN LW EXT MARVIN] Onset: 01-09-2022 Episodic Pneumonia (except that caused by tuberculosis or sexually transmitted disease) (4 sources) Bronchopneumonia, unspecified organism; Translations: [Infective pneumonia] Onset: 08-29-2022 Resolved: 07-19-2023 07-19-2023 Episodic Residual codes; unclassified (16 sources) Noncompliance with treatment; Translations: [Personal history of noncompliance with medical treatment, presenting hazards to health] Onset: 04-12-2023 04-12-2023 Episodic Residual codes; unclassified (5 sources) History of surgical procedure on vein; Translations: [Other specified postprocedural states] Onset: 04-13-2023 04-13-2023 Episodic Respiratory failure; insufficiency; arrest (adult) (1 source) Acute respiratory failure with hypoxia; Translations: [ACUTE RESPIRATORY FAIL W/HYPOXIA] Onset: 06-13-2022 Episodic Screening and history of mental health and substance abuse codes (20 sources) Ex-smoker; Translations: [Personal history of tobacco use] Onset: 06-13-2022 04-13-2023 Episodic Comment on above: Quit 07/26/2012; Spondylosis; intervertebral disc disorders; other back problems [...] Value Interpretation Reference Range Facility Covid-19 PCR (CVDTB)on 10-16 SARS-CoV-2 (COVID-19) RNA PILI+probe Ql (Unsp spec) Not detected Normal NOT DETECTED [facility] Comment on above: Performed By: #### C VDTBH #### [facility] [address] [place] [address] Dr. Jersey Butcher INFLUENZA A AND B AGon 10-26 INFLUANEGH SEE BELOW Normal [facility] Comment on above: Result Comment: Nega tive for Flu A protein angiten. Infection due to Flu A cannot be ruled out. Flu A angiten in the sample may be below the detection limit of the test. Performed By: #### T SH, BNP, HSTROPN, CMP #### [facility] [address] [place] [address] Dr. Jersey Butcher INFLUBNEGH SEE BELOW Normal [facility] Comment on above: Result Comment: Nega tive for Flu B protein antigen. Infection due to Flu B cannot be ruled out. Flu B antigen in the sample may be below the detection limit of the test. Performed By: #### T SH, BNP, HSTROPN, CMP #### [facility] [address] [place] [address] Dr. Jersey Butcher INFLUENZA A AG Negative Normal NEGATIVE SEE COMMENT [facility] Comment on above: Performed By: #### T SH, BNP, HSTROPN, CMP #### [facility] [address] [place] [address] Dr. Jersey Butcher INFLUENZA B AG Negative Normal NEGATIVE SEE COMMENT [facility] Comment on above: Performed By: #### T SH, BNP, HSTROPN, CMP #### [facility] [address] [place] [address] Dr. Jersey Butcher SYMPTOMATIC COVID-19 ANTIGEN on 10-26-2022 EUA Statement SEE BELOW Normal [facility] Comment on above: Result Comment: This [...] is revoked sooner. Performed By: #### C VDTBH #### [facility] [address] [address] [address] Jersey Butcher SARS-CoV-2 (COVID-19) RNA PILI+probe Ql (Unsp spec) Negative Normal NEGATIVE [facility] Comment on above: Performed By: #### C VDTBH #### [facility] [address] [place], [place] [address] Dr. Jersey Butcher [facility] CARDIAC STRESS/REST INJE CTIONon 10-02-2022 [facility] CARDIAC STRESS/REST INJECTION Patient Name: ELYSE DUONG STUDY: MYOCARDIAL PERFUSION STRESS TEST WITH LEXISCAN Performing facility: [facility], [address] [place] [address], [address], [address] Provider: Tequila Jaffe MD, FACC PCP: Dr. Tristen Terrell Supervising provider: Mary Julien MD, FACC INDICATION: DOT physical I25.10: CAD S/P percutaneous coronary angioplasty Z98.61 HISTORY: Gender: M; Age: 57 y/o ; Height: 0 cm; Weight: 154.329874 kg. CAD; High Cholesterol; HTN; Previous [place]; Arrhythmias; AFib Quit smoking 10 years ago. Cardiac catheterization 2012. PTCA on RCA. COMPARISON: No comparison. ACCESSION NUMBER(S): [id number]; [id number] ORDERING CLINICIAN: TEQUILA JAFFE TECHNIQUE: TWO DAY [...] signed by: MADISON CHRISTIAN MD Normal [facility] ([place], [place]) No Panel Informationon 10-02 Normal -[facility] 305 DO Work Phone: HEMOGLOBINon 09-15-2022 Hemoglobin (Bld) [Mass/Vol] 14.3 g/dL Normal 14.0-18.0 [facility] Comment on above: Performed By: #### T SH, BNP, HSTROPN, CMP #### [facility] [address] [address] [address] Jersey Butcher [facility] SARS-CoV-2 (COVID-19) RNA PILI+probe Ql (Unsp spec) Not detected Normal NOT DETECTED [facility] Comment on above: Result Comment: When [...] for this test is supported by the [place] of [employer] and Human Service's declaration that [...] SH, BNP, HSTROPN, CMP #### [facility] [address] [address] [address] Jersey Butcher GROUP A STREP CULTUREon 08-16 S. pyogenes Ag Ql (Unsp spec) Culture Observations: NEGATIVE FOR GROUP A STREPTOCOCCUS. Normal [facility] Comment on above: Performed By: #### T SH, BNP, HSTROPN, CMP #### [facility] [address] [place] [address] Dr. Jersey Butcher STREPT SCREENon 08-27-2022 STREP SCREEN A Negative Normal NEGATIVE [facility] Comment on above: Performed By: #### T SH, BNP, HSTROPN, CMP #### [facility] [address] [place] [address] Dr. Jersey Butcher XR CHEST 1 Von 08-27-2022 XR CHEST 1 V EXAM: XR CHEST 1 V HISTORY: SHORTNESS OF BREATH COMPARISON: 05/25/2022 TECHNIQUE: Frontal view of the chest. FINDINGS: No focal consolidations or pleural effusions. Cardiomegaly. Visualized osseous structures are unremarkable. IMPRESSION: No acute disease. Electronically authenticated by: LEO MARSHALL Date: 2022-08-27 14:06 Normal [facility] Office Visit (Cardiology)on 07-19-2022 Follow-up visit [...] [address] Justyn Mondragon MD. [facility] Patient to STOP Hydrochlorothiazide moving forward. Patient [...] requested at the time of your visit. Enrike Small RN am scribing for and in the [...] echocardiogram (V72.85 (more content not included)... Normal [facility] [facility] Screening.on 023 Adult depression screening assessment No [facility] 305 DO Work Phone: Fall risk assessment a) No falls within the last year [facility] 305 DO Work Phone: Tobacco use status CPH[facility] b) No [facility] 305 DO Work Phone: CBC W MANUAL DIFFon 06-04-20 22 ATYPICAL LYMPH # 0.14 103/ul Normal [facility] Comment on above: Performed By: #### T SH, BNP, HSTROPN, CMP #### [facility] [address] [place] [address] Dr. Jersey Butcher ATYPICAL LYMPH % 1 % Normal [facility] Comment on above: Performed By: #### T SH, BNP, HSTROPN, CMP #### [facility] [address] [address] [address] Jersey Butcher BAND # 0.0 103/ul Normal 0.0-0.3 [facility] Comment on above: Performed By: #### T SH, BNP, HSTROPN, CMP #### [facility] [address] [place] [address] Dr. Jersey Butcher BAND % 0 % Normal 0-5 [facility] Comment on above: Performed By: #### T SH, BNP, HSTROPN, CMP #### [facility] [address] [address] [address] Jersey Butcher BASOM # 0.00 103/ul Normal 0.00-0.10 [facility] Comment on above: Performed By: #### T SH, BNP, HSTROPN, CMP #### [facility] [address] [place] [address] Dr. Jersey Butcher BASOM % 0.0 % Critically low 0.2-2.0 [facility] Comment on above: Performed By: #### T SH, BNP, HSTROPN, CMP #### [facility] [address] [address] [address] Jersey Butcher BLAST # Normal [facility] Comment on above: Performed By: #### T SH, BNP, HSTROPN, CMP #### [facility] [address] [address] [address] Jersey Butcher BLAST % Normal [facility] Comment on above: Performed By: #### T SH, BNP, HSTROPN, CMP #### [facility] [address] [address] [address] Jersey Butcher CORRECTED WBC Normal 4.0-11.0 [facility] Comment on above: Performed By: #### T SH, BNP, HSTROPN, CMP #### [facility] [address] [address] [address] Jersey Butcher EOS # 0.00 103/ul Normal 0.00-0.70 [facility] Comment on above: Performed By: #### T SH, BNP, HSTROPN, CMP #### [facility] [address] [address] [address] Jersey Butcher EOS% 0.0 % Critically low 0.9-7.0 [facility] Comment on above: Performed By: #### T SH, BNP, HSTROPN, CMP #### [facility] [address] [address] [address] Jersey Butcher HCT 41.3 % Critically low 42.0-54.0 [facility] Comment on above: Performed By: #### T SH, BNP, HSTROPN, CMP #### [facility] [address] [address] [address] Jersey Butcher HGB 14.2 g/dl Normal 14.0-18.0 [facility] Comment on above: Performed By: #### T SH, BNP, HSTROPN, CMP #### [facility] [address] [address] [address] Jersey Butcher LYMPHM # 0.42 103/ul Critically low 1.20-3.80 [facility] Comment on above: Performed By: #### T SH, BNP, HSTROPN, CMP #### [facility] [address] [place] [address] Dr. Jersey Butcher LYMPHM% 3.0 % Critically low 20.5-60.0 [facility] Comment on above: Performed By: #### T SH, BNP, HSTROPN, CMP #### [facility] [address] [place] [address] Dr. Jersey Butcher MCH 30.9 pg Normal 25.9-34.0 [facility] Comment on above: Performed By: #### T SH, BNP, HSTROPN, CMP #### [facility] [address] [place] [address] Dr. Jersey Butcher MCHC 34.4 g/dl Normal 29.9-35.2 [facility] Comment on above: Performed By: #### T SH, BNP, HSTROPN, CMP #### [facility] [address] [place] [address] Dr. Jersey Butcher MCV 89.8 fL Normal 80.0-94.0 [facility] Comment on above: Performed By: #### T SH, BNP, HSTROPN, CMP #### [facility] [address] [place] [address] Dr. Jersey Butcher METAMYELOCYTE # Normal [facility] Comment on above: Performed By: #### T SH, BNP, HSTROPN, CMP #### [facility] [address] [place] [address] Dr. Jersey Butcher METAMYELOCYTE % Normal [facility] Comment on above: Performed By: #### T SH, BNP, HSTROPN, CMP #### [facility] [address] [place] [address] Dr. Jersey Butcher MONOM# 0.14 103/ul Critically low 0.30-0.80 [facility] Comment on above: Performed By: #### T SH, BNP, HSTROPN, CMP #### [facility] [address] [place] [address] Dr. Jersey Butcher MONOM% 1.0 % Critically low 1.7-12.0 [facility] Comment on above: Performed By: #### T SH, BNP, HSTROPN, CMP #### [facility] [address] [place] [address] Dr. Jersey Butcher MPV 10.4 fL Normal 9.5-13.5 [facility] Comment on above: Performed By: #### T SH, BNP, HSTROPN, CMP #### [facility] [address] [place] [address] Dr. Jersey Butcher MYELOCYTE # Normal [facility] Comment on above: Performed By: #### T SH, BNP, HSTROPN, CMP #### [facility] [address] [place] [address] Dr. Jersey Butcher MYELOCYTE % Normal [facility] Comment on above: Performed By: #### T SH, BNP, HSTROPN, CMP #### [facility] [address] [place] [address] Dr. Jersey Butcher NRBC Normal [facility] Comment on above: Performed By: #### T SH, BNP, HSTROPN, CMP #### [facility] [address] [place] [address] Dr. Jersey Butcher PLT 209 103/ul Normal 150-450 [facility] Comment on above: Performed By: #### T SH, BNP, HSTROPN, CMP #### [facility] [address] [place] [address] Dr. Jersey Butcher RBC 4.60 106/ul Critically low 4.70-6.10 [facility] Comment on above: Performed By: #### T SH, BNP, HSTROPN, CMP #### [facility] [address] [place] [address] Dr. Jersey Butcher RDW 11.9 % Normal 11.0-15.0 [facility] Comment on above: Performed By: #### T SH, BNP, HSTROPN, CMP #### [facility] [address] [place] [address] Dr. Jersey Butcher SEG # 13.30 103/ul Critically high 1.40-6.50 [facility] Comment on above: Performed By: #### T SH, BNP, HSTROPN, CMP #### [facility] [address] [place] [address] Dr. Jersey Butcher SEG % 95.0 % Critically high 43.0-75.0 [facility] Comment on above: Performed By: #### T SH, BNP, HSTROPN, CMP #### [facility] [address] [place] [address] Dr. Jersey Butcher WBC 14.0 103/ul Critically high 4.0-11.0 [facility] Comment on above: Performed By: #### T SH, BNP, HSTROPN, CMP #### [facility] [address] [place] [address] Dr. Jersey Butcher PROF 14(COMP METB)on 022 Albumin [Mass/Vol] 3.0 g/dL Critically low 3.4-5.0 [facility] Comment on above: Performed By: #### T SH, BNP, HSTROPN, CMP #### [facility] [address] [place] [address] Dr. Jersey Butcher Albumin/Globulin [Mass ratio] 0.8 {ratio} Normal [facility] Comment on above: Performed By: #### T SH, BNP, HSTROPN, CMP #### [facility] [address] [place] [address] Dr. Jersey Butcher ALP [Catalytic activity/Vol] 91 U/L Normal 46-116 [facility] Comment on above: Performed By: #### T SH, BNP, HSTROPN, CMP #### [facility] [address] [place] [address] Dr. Jersey Butcher ALT [Catalytic activity/Vol] 43 U/L Normal 16-63 [facility] Comment on above: Performed By: #### T SH, BNP, HSTROPN, CMP #### [facility] [address] [place] [address] Dr. Jersey Butcher Anion gap [Moles/Vol] 8.1 mmol/L Normal [facility] Comment on above: Performed By: #### T SH, BNP, HSTROPN, CMP #### [facility] [address] [address] [address] Jersey Butcher AST [Catalytic activity/Vol] 18 U/L Normal 15-37 [facility] Comment on above: Performed By: #### T SH, BNP, HSTROPN, CMP #### [facility] [address] [address] [address] Jersey Butcher Bilirubin [Mass/Vol] 0.4 mg/dL Normal 0.2-1.0 [facility] Comment on above: Performed By: #### T SH, BNP, HSTROPN, CMP #### [facility] [address] [place] [address] Dr. Jersey Butcher Calcium [Mass/Vol] 8.4 mg/dL Critically low 8.5-10.1 [facility] Comment on above: Performed By: #### T SH, BNP, HSTROPN, CMP #### [facility] [address] [place] [address] Dr. Jersey Butcher Chloride [Moles/Vol] 94 mmol/L Critically low 98-107 [facility] Comment on above: Performed By: #### T SH, BNP, HSTROPN, CMP #### [facility] [address] [place] [address] Dr. Jersey Butcher CO2 [Moles/Vol] 33.0 mmol/L Critically high 21.0-32.0 [facility] Comment on above: Performed By: #### T SH, BNP, HSTROPN, CMP #### [facility] [address] [address] [address] Jersey Butcher Creatinine [Mass/Vol] 1.15 mg/dL Normal 0.70-1.30 [facility] Comment on above: Performed By: #### T SH, BNP, HSTROPN, CMP #### [facility] [address] [place] [address] Dr. Jersey Butcher EGFR-AF [place] ISLANDER >60 Normal >=60 [facility] Comment on above: Performed By: #### T SH, BNP, HSTROPN, CMP #### [facility] [address] [place] [address] Dr. Jersey Butcher EGFR-NON AF [place]ER >60 Normal >=60 [facility] Comment on above: Performed By: #### T SH, BNP, HSTROPN, CMP #### [facility] [address] [place] [address] Dr. Jersey Butcher Globulin (S) [Mass/Vol] 3.6 g/dL Normal [facility] Comment on above: Performed By: #### T SH, BNP, HSTROPN, CMP #### [facility] [address] [place] [address] Dr. Jersey Butcher Glucose [Mass/Vol] 193 mg/dL Critically high 74-106 [facility] Comment on above: Performed By: #### T SH, BNP, HSTROPN, CMP #### [facility] [address] [place] [address] Dr. Jersey Butcher Potassium [Moles/Vol] 3.1 mmol/L Critically low 3.5-5.1 [facility] Comment on above: Performed By: #### T SH, BNP, HSTROPN, CMP #### [facility] [address] [place] [address] Dr. Jersey Butcher Protein [Mass/Vol] 6.6 g/dL Normal 6.4-8.2 [facility] Comment on above: Performed By: #### T SH, BNP, HSTROPN, CMP #### [facility] [address] [place] [address] Dr. Jersey Butcher Sodium [Moles/Vol] 132 mmol/L Critically low 136-145 [facility] Comment on above: Performed By: #### T SH, BNP, HSTROPN, CMP #### [facility] [address] [place] [address] Dr. Jersey Butcher Urea nitrogen [Mass/Vol] 22.0 mg/dL Critically high 7.0-18.0 [facility] Comment on above: Performed By: #### T SH, BNP, HSTROPN, CMP #### [facility] [address] [address] [address] Jersey Butcher Urea nitrogen/Creatinine [Mass ratio] 19.1 mg/mg Normal [facility] Comment on above: Performed By: #### T SH, BNP, HSTROPN, CMP #### [facility] [address] [address] [address] Jersey Butcher QUANTIFERON TB GOLD PLUSon 1 08-05-2021 QuantiFERON Criteria Comment Normal [facility] Comment on above: Result Comment: Prateek tiFERON-TB [...] SH, BNP, HSTROPN, CMP #### [facility] [address] [place] [address] Dr. Jersey Butcher QuantiFERON Incubation Incubation performed. Normal [facility] Comment on above: Performed By: #### T SH, BNP, HSTROPN, CMP #### [facility] [address] [place] [address] Dr. Jersey Butcher QuantiFERON Mitogen Value 4.42 IU/mL Normal [facility] Comment on above: Performed By: #### T SH, BNP, HSTROPN, CMP #### [facility] [address] [place] [address] Dr. Jersey Butcher QuantiFERON Nil Value 0.00 IU/mL Normal [facility] Comment on above: Performed By: #### T SH, BNP, HSTROPN, CMP #### [facility] [address] [place] [address] Dr. Jersey Butcher QuantiFERON TB1 Ag Value 0.00 IU/mL Normal [facility] Comment on above: Performed By: #### T SH, BNP, HSTROPN, CMP #### [facility] [address] [place] [address] Dr. Jersey Butcher QuantiFERON TB2 Ag Value 0.01 IU/mL Normal [facility] Comment on above: Performed By: #### T SH, BNP, HSTROPN, CMP #### [facility] [address] [place] [address] Dr. Jersey Butcher QuantiFERON-TB Gold Plus Negative Normal Negative [facility] Comment on above: Result Comment: No r esponse to M tuberculosis antigens detected. Infection with M tuberculosis is unlikely, but high risk individuals should be considered for additional testing (ATS/IDSA/CDC Clinical Practice Guidelines, 2017). The reference range is an Antigen minus Nil result of <0.35 IU/mL. Chemiluminescence immunoassay methodology Performed By: #### T SH, BNP, HSTROPN, CMP #### [facility] [address] [place] [address] Dr. Jersey Butcher BNPon 06-03-2022 Natriuretic peptide B (Bld) [Mass/Vol] 273.0 pg/mL Normal <=900.0 [facility] Comment on above: Performed By: #### D DIM #### [facility] [address] [place] [address] Dr. Jersey Butcher CBC W MANUAL DIFFon 06-03-20 ATYPICAL LYMPH # Normal [facility] Comment on above: Performed By: #### C MADDIE #### [facility] [address] [place] [address] Dr. Jersey Butcher ATYPICAL LYMPH % Normal [facility] Comment on above: Performed By: #### C BCMAN #### [facility] [address] [place] [address] Dr. Jersey Butcher BAND # 0.0 103/ul Normal 0.0-0.3 [facility] Comment on above: Performed By: #### C BCMAN #### [facility] [address] [place] [address] Dr. Jersey Butcher BAND % 0 % Normal 0-5 [facility] Comment on above: Performed By: #### C MADDIE #### [facility] [address] [place] [address] Dr. Jersey Butcher BASOM # 0.00 103/ul Normal 0.00-0.10 [facility] Comment on above: Performed By: #### C BCMAN #### [facility] [address] [address] [address] Jersey Butcher BASOM % 0.0 % Critically low 0.2-2.0 [facility] Comment on above: Performed By: #### C BCMAN #### [facility] [address] [address] [address] Jersey Butcher BLAST # Normal [facility] Comment on above: Performed By: #### C BCMAN #### [facility] [address] [place] [address] Dr. Jersey Butcher BLAST % Normal [facility] Comment on above: Performed By: #### C BCROSIE #### [facility] [address] [place] [address] Dr. Jersey Butcher CORRECTED WBC Normal 4.0-11.0 [facility] Comment on above: Performed By: #### C BCROSIE #### [facility] [address] [place] [address] Dr. Jersey Butcher EOS # 0.00 103/ul Normal 0.00-0.70 [facility] Comment on above: Performed By: #### C BCROSIE #### [facility] [address] [place] [address] Dr. Jersey Butcher EOS% 0.0 % Critically low 0.9-7.0 [facility] Comment on above: Performed By: #### C BCROSIE #### [facility] [address] [place] [address] Dr. Jersey Butcher HCT 41.2 % Critically low 42.0-54.0 [facility] Comment on above: Performed By: #### C BCMAN #### [facility] [address] [place] [address] Dr. Jersey Butcher HGB 14.3 g/dl Normal 14.0-18.0 [facility] Comment on above: Performed By: #### C BCMAN #### [facility] [address] [address] [address] Jersey Butcher LYMPHM # 0.85 103/ul Critically low 1.20-3.80 [facility] Comment on above: Performed By: #### C MADDIE #### [facility] [address] [address] [address] Jersey Butcher LYMPHM% 7.0 % Critically low 20.5-60.0 [facility] Comment on above: Performed By: #### C MADDIE #### [facility] [address] [place] [address] Dr. Jersey Butcher MCH 31.3 pg Normal 25.9-34.0 [facility] Comment on above: Performed By: #### C MADDIE #### [facility] [address] [place] [address] Dr. Jersey Butcher MCHC 34.7 g/dl Normal 29.9-35.2 [facility] Comment on above: Performed By: #### C MADDIE #### [facility] [address] [place] [address] Dr. Jersey Butcher MCV 90.2 fL Normal 80.0-94.0 [facility] Comment on above: Performed By: #### C MADDIE #### [facility] [address] [place] [address] Dr. Jersey Butcher METAMYELOCYTE # Normal [facility] Comment on above: Performed By: #### C MADDIE #### [facility] [address] [place] [address] Dr. Jersey Butcher METAMYELOCYTE % Normal [facility] Comment on above: Performed By: #### C MADDIE #### [facility] [address] [place] [address] Dr. Jersey Butcher MONOM# 0.24 103/ul Critically low 0.30-0.80 [facility] Comment on above: Performed By: #### C MADDIE #### [facility] [address] [place] [address] Dr. Jersey Butcher MONOM% 2.0 % Normal 1.7-12.0 [facility] Comment on above: Performed By: #### C MADDIE #### [facility] [address] [address] [address] Jersey Butcher MPV 10.8 fL Normal 9.5-13.5 [facility] Comment on above: Performed By: #### C MADDIE #### [facility] [address] [address] [address] Jersey Butcher MYELOCYTE # Normal [facility] Comment on above: Performed By: #### C MADDIE #### [facility] [address] [address] [address] Jersey Butcher MYELOCYTE % Normal [facility] Comment on above: Performed By: #### C MADDIE #### [facility] [address] [address] [address] Jersey Butcher NRBC Normal [facility] Comment on above: Performed By: #### C MADDIE #### [facility] [address] [address] [address] Jersey Butcher PLT 177 103/ul Normal 150-450 [facility] Comment on above: Performed By: #### C MADDIE #### [facility] [address] [address] [address] Jersey Butcher RBC 4.57 106/ul Critically low 4.70-6.10 [facility] Comment on above: Performed By: #### C MADDIE #### [facility] [address] [address] [address] Jersey Butcher RDW 11.8 % Normal 11.0-15.0 [facility] Comment on above: Performed By: #### C MADDIE #### [facility] [address] [address] [address] Jersey Butcher SEG # 11.10 103/ul Critically high 1.40-6.50 [facility] Comment on above: Performed By: #### C MADDIE #### [facility] [address] [address] [address] Jersey Butcher SEG % 91.0 % Critically high 43.0-75.0 [facility] Comment on above: Performed By: #### C MADDIE #### [facility] [address] [address] [address] Jersey Butcher WBC 12.2 103/ul Critically high 4.0-11.0 [facility] Comment on above: Performed By: #### C PHILMAN #### [facility] [address] [place] [address] Dr. Jersey Butcher PROF 14(COMP METB)on 022 Albumin [Mass/Vol] 2.9 g/dL Critically low 3.4-5.0 [facility] Comment on above: Performed By: #### D DIM #### [facility] [address] [place] [address] Dr. Jersey Butcher Albumin/Globulin [Mass ratio] 0.8 {ratio} Normal [facility] Comment on above: Performed By: #### D DIM #### [facility] [address] [place] [address] Dr. Jersey Butcher ALP [Catalytic activity/Vol] 90 U/L Normal 46-116 [facility] Comment on above: Performed By: #### D DIM #### [facility] [address] [place] [address] Dr. Jersey Butcher ALT [Catalytic activity/Vol] 40 U/L Normal 16-63 [facility] Comment on above: Performed By: #### D DIM #### [facility] [address] [place] [address] Dr. Jersey Butcher Anion gap [Moles/Vol] 6.7 mmol/L Normal [facility] Comment on above: Performed By: #### D DIM #### [facility] [address] [place] [address] Dr. Jersey Butcher AST [Catalytic activity/Vol] 20 U/L Normal 15-37 [facility] Comment on above: Performed By: #### D DIM #### [facility] [address] [place] [address] Dr. Jersey Butcher Bilirubin [Mass/Vol] 0.4 mg/dL Normal 0.2-1.0 [facility] Comment on above: Performed By: #### D DIM #### [facility] [address] [address] [address] Jersey Butcher Calcium [Mass/Vol] 8.6 mg/dL Normal 8.5-10.1 [facility] Comment on above: Performed By: #### D DIM #### [facility] [address] [address] [address] Jersey Butcher Chloride [Moles/Vol] 95 mmol/L Critically low 98-107 [facility] Comment on above: Performed By: #### D DIM #### [facility] [address] [address] [address] Jersey Butcher CO2 [Moles/Vol] 33.6 mmol/L Critically high 21.0-32.0 [facility] Comment on above: Performed By: #### D DIM #### [facility] [address] [place] [address] Dr. Jersey Butcher Creatinine [Mass/Vol] 1.14 mg/dL Normal 0.70-1.30 [facility] Comment on above: Performed By: #### D DIM #### [facility] [address] [place] [address] Dr. Jersey Butcher EGFR-AF [place] ISLANDER >60 Normal >=60 [facility] Comment on above: Performed By: #### D DIM #### [facility] [address] [place] [address] Dr. Jersey Butcher EGFR-NON AF [place]ER >60 Normal >=60 [facility] Comment on above: Performed By: #### D DIM #### [facility] [address] [place] [address] Dr. Jersey Butcher Globulin (S) [Mass/Vol] 3.7 g/dL Normal [facility] Comment on above: Performed By: #### D DIM #### [facility] [address] [place] [address] Dr. Jersey Butcher Glucose [Mass/Vol] 205 mg/dL Critically high 74-106 [facility] Comment on above: Performed By: #### D DIM #### [facility] [address] [place] [address] Dr. Jersey Butcher Potassium [Moles/Vol] 3.3 mmol/L Critically low 3.5-5.1 [facility] Comment on above: Performed By: #### D DIM #### [facility] [address] [place] [address] Dr. Jersey Butcher Protein [Mass/Vol] 6.6 g/dL Normal 6.4-8.2 [facility] Comment on above: Performed By: #### D DIM #### [facility] [address] [place] [address] Dr. Jersey Butcher Sodium [Moles/Vol] 132 mmol/L Critically low 136-145 [facility] Comment on above: Performed By: #### D DIM #### [facility] [address] [place] [address] Dr. Jersey Butcher Urea nitrogen [Mass/Vol] 24.0 mg/dL Critically high 7.0-18.0 [facility] Comment on above: Performed By: #### D DIM #### [facility] [address] [place] [address] Dr. Jersey Butcher Urea nitrogen/Creatinine [Mass ratio] 21.1 mg/mg Normal [facility] Comment on above: Performed By: #### D DIM #### [facility] [address] [place] [address] Dr. Jersey Butcher BNPon 06-02-2022 Natriuretic peptide B (Bld) [Mass/Vol] 85.0 pg/mL Normal <=900.0 [facility] Comment on above: Performed By: #### C VDTBH #### [facility] [address] [place] [address] Dr. Jersey Butcher CBC AUTO DIFFon 06-02-2022 BASO # 0.0 103/ul Normal 0.0-0.1 [facility] Comment on above: Performed By: #### T SH, BNP, HSTROPN, CMP #### [facility] [address] [place] [address] Dr. Jersey Butcher Basophils/100 WBC (Bld) 0.5 % Normal 0.2-2.0 [facility] Comment on above: Performed By: #### T SH, BNP, HSTROPN, CMP #### [facility] [address] [place] [address] Dr. Jersey Butcher EO # 0.0 103/ul Normal 0.0-0.7 [facility] Comment on above: Performed By: #### T SH, BNP, HSTROPN, CMP #### [facility] [address] [place] [address] Dr. Jersey Butcher Eosinophils/100 WBC (Bld) 0.0 % Critically low 0.9-7.0 [facility] Comment on above: Performed By: #### T SH, BNP, HSTROPN, CMP #### [facility] [address] [place] [address] Dr. Jersey Butcher Erythrocyte distribution width (RBC) [Ratio] 11.5 % Normal 11.0-15.0 [facility] Comment on above: Performed By: #### T SH, BNP, HSTROPN, CMP #### [facility] [address] [place] [address] Dr. Jersey Butcher Hematocrit (Bld) [Volume fraction] 42.8 % Normal 42.0-54.0 [facility] Comment on above: Performed By: #### T SH, BNP, HSTROPN, CMP #### [facility] [address] [place] [address] Dr. Jersey Butcher Hemoglobin (Bld) [Mass/Vol] 14.6 g/dL Normal 14.0-18.0 [facility] Comment on above: Performed By: #### T SH, BNP, HSTROPN, CMP #### [facility] [address] [place] [address] Dr. Jersey Butcher IG # 0.00 10e3/ul Normal 0.00-0.03 [facility] Comment on above: Performed By: #### T SH, BNP, HSTROPN, CMP #### [facility] [address] [place] [address] Dr. Jersey Butcher IG % 0.0 % Normal 0.0-0.5 [facility] Comment on above: Performed By: #### T SH, BNP, HSTROPN, CMP #### [facility] [address] [place] [address] Dr. Jersey Butcher LYMPH # 0.4 103/ul Critically low 1.2-3.8 [facility] Comment on above: Performed By: #### T SH, BNP, HSTROPN, CMP #### [facility] [address] [place] [address] Dr. Jersey Butcher Lymphocytes/100 WBC (Bld) 18.4 % Critically low 20.5-60.0 [facility] Comment on above: Performed By: #### T SH, BNP, HSTROPN, CMP #### [facility] [address] [place] [address] Dr. Jersey Butcher MANUAL DIFF REQ NO Normal [facility] Comment on above: Performed By: #### T SH, BNP, HSTROPN, CMP #### [facility] [address] [place] [address] Dr. Jersey Butcher MCH (RBC) [Entitic mass] 30.9 pg Normal 25.9-34.0 [facility] Comment on above: Performed By: #### T SH, BNP, HSTROPN, CMP #### [facility] [address] [place] [address] Dr. Jersey Butcher MCHC (RBC) [Mass/Vol] 34.1 g/dL Normal 29.9-35.2 [facility] Comment on above: Performed By: #### T SH, BNP, HSTROPN, CMP #### [facility] [address] [place] [address] Dr. Jersey Butcher MCV (RBC) [Entitic vol] 90.7 fL Normal 80.0-94.0 [facility] Comment on above: Performed By: #### T SH, BNP, HSTROPN, CMP #### [facility] [address] [place] [address] Dr. Jersey Butcher MONO # 0.1 103/ul Critically low 0.3-0.8 [facility] Comment on above: Performed By: #### T SH, BNP, HSTROPN, CMP #### [facility] [address] [place] [address] Dr. Jersey Butcher Monocytes/100 WBC (Bld) 4.6 % Normal 1.7-12.0 [facility] Comment on above: Performed By: #### T SH, BNP, HSTROPN, CMP #### [facility] [address] [place] [address] Dr. Jersey Butcher NEUT # 1.7 103/ul Normal 1.4-6.5 [facility] Comment on above: Performed By: #### T SH, BNP, HSTROPN, CMP #### [facility] [address] [place] [address] Dr. Jersey Butcher Neutrophils/100 WBC (Bld) 76.5 % Critically high 43.0-75.0 [facility] Comment on above: Performed By: #### T SH, BNP, HSTROPN, CMP #### [facility] [address] [place] [address] Dr. Jersey Butcher Platelet mean volume (Bld) [Entitic vol] 10.1 fL Normal 9.5-13.5 [facility] Comment on above: Performed By: #### T SH, BNP, HSTROPN, CMP #### [facility] [address] [place] [address] Dr. Jersey Butcher PLT 160 103/ul Normal 150-450 [facility] Comment on above: Performed By: #### T SH, BNP, HSTROPN, CMP #### [facility] [address] [place] [address] Dr. Jersey Butcher RBC 4.72 106/ul Normal 4.70-6.10 [facility] Comment on above: Performed By: #### T SH, BNP, HSTROPN, CMP #### [facility] [address] [place] [address] Dr. Jersey Butcher WBC 2.2 103/ul Critically low 4.0-11.0 [facility] Comment on above: Performed By: #### T SH, BNP, HSTROPN, CMP #### [facility] [address] [place] [address] Dr. Jersey Butcher PROF 14(COMP METB)on 022 Albumin [Mass/Vol] 2.7 g/dL Critically low 3.4-5.0 [facility] Comment on above: Performed By: #### C VDTBH #### [facility] [address] [place] [address] Dr. Jersey Butcher Albumin/Globulin [Mass ratio] 0.7 {ratio} Normal [facility] Comment on above: Performed By: #### C VDTBH #### [facility] [address] [place] [address] Dr. Jersey Butcher ALP [Catalytic activity/Vol] 102 U/L Normal 46-116 [facility] Comment on above: Performed By: #### C VDTBH #### [facility] [address] [place] [address] Dr. Jersey Butcher ALT [Catalytic activity/Vol] 45 U/L Normal 16-63 [facility] Comment on above: Performed By: #### C VDTBH #### [facility] [address] [place] [address] Dr. Jersey Butcher Anion gap [Moles/Vol] 7.4 mmol/L Normal [facility] Comment on above: Performed By: #### C VDTBH #### [facility] [address] [place] [address] Dr. Jersey Butcher AST [Catalytic activity/Vol] 30 U/L Normal 15-37 [facility] Comment on above: Performed By: #### C VDTBH #### [facility] [address] [place] [address] Dr. Jersey Butcher Bilirubin [Mass/Vol] 0.3 mg/dL Normal 0.2-1.0 [facility] Comment on above: Performed By: #### C VDTBH #### [facility] [address] [place] [address] Dr. Jersey Butcher Calcium [Mass/Vol] 8.3 mg/dL Critically low 8.5-10.1 [facility] Comment on above: Performed By: #### C VDTBH #### [facility] [address] [address] [address] Jersey Butcher Chloride [Moles/Vol] 94 mmol/L Critically low 98-107 [facility] Comment on above: Performed By: #### C VDTBH #### [facility] [address] [address] [address] Jersey Butcher CO2 [Moles/Vol] 32.8 mmol/L Critically high 21.0-32.0 [facility] Comment on above: Performed By: #### C VDTBH #### [facility] [address] [address] [address] Jersey Butcher Creatinine [Mass/Vol] 1.23 mg/dL Normal 0.70-1.30 [facility] Comment on above: Performed By: #### C VDTBH #### [facility] [address] [place] [address] Dr. Jersey Butcher EGFR-AF [place]ER >60 Normal >=60 [facility] Comment on above: Performed By: #### C VDTBH #### [facility] [address] [place] [address] Dr. Jersey Butcher EGFR-NON AF [place] 60 mL/min/1.73m2 Normal >=60 [facility] Comment on above: Performed By: #### C VDTBH #### [facility] [address] [place] [address] Dr. Jersey Butcher Globulin (S) [Mass/Vol] 3.9 g/dL Normal [facility] Comment on above: Performed By: #### C VDTBH #### [facility] [address] [place] [address] Dr. Jersey Butcher Glucose [Mass/Vol] 314 mg/dL Critically high 74-106 [facility] Comment on above: Performed By: #### C VDTBH #### [facility] [address] [place] [address] Dr. Jersey Butcher Potassium [Moles/Vol] 3.2 mmol/L Critically low 3.5-5.1 [facility] Comment on above: Performed By: #### C VDTBH #### [facility] [address] [place] [address] Dr. Jersey Butcher Protein [Mass/Vol] 6.6 g/dL Normal 6.4-8.2 [facility] Comment on above: Performed By: #### C VDTBH #### [facility] [address] [place] [address] Dr. Jersey Butcher Sodium [Moles/Vol] 131 mmol/L Critically low 136-145 [facility] Comment on above: Performed By: #### C VDTBH #### [facility] [address] [place] [address] Dr. Jersey Butcher Urea nitrogen [Mass/Vol] 20.0 mg/dL Critically high 7.0-18.0 [facility] Comment on above: Performed By: #### C VDTBH #### [facility] [address] [place] [address] Dr. Jersey Butcher Urea nitrogen/Creatinine [Mass ratio] 16.3 mg/mg Normal [facility] Comment on above: Performed By: #### C VDTBH #### [facility] [address] [place] [address] Dr. Jersey Butcher BNPon 06-01-2022 Natriuretic peptide B (Bld) [Mass/Vol] 70.0 pg/mL Normal <=900.0 [facility] Comment on above: Performed By: #### T SH, BNP, HSTROPN, CMP #### [facility] [address] [place] [address] Dr. Jersey Butcher CARDIAC VIDHI 3-6on 2 CK [Catalytic activity/Vol] 193 U/L Normal 39-308 [facility] Comment on above: Performed By: #### T SH, BNP, HSTROPN, CMP #### [facility] [address] [place] [address] Dr. Jersey Butcher CK.MB [Mass/Vol] 2.87 ng/mL Normal <=3.60 [facility] Comment on above: Performed By: #### T SH, BNP, HSTROPN, CMP #### [facility] [address] [address] [address] Jersey Butcher HSTROP 11.7 pg/mL Normal 4.0-76.1 [facility] Comment on above: Result Comment: CUT- OFF POINTS HAVE BEEN ESTABLISHED BASED ON THE FOURTH UNIVERSAL DEFINITIONS OF MYOCARDIAL INFARCTION. THE UPPER REFERENCE LIMIT (URL) OF TROPONIN, DEFINED THE 99TH PERCENTILE OF cTnI DISTRIBUTION IN A REFERENCE POPULATION, HAS BEEN CONFIRMED THE DECISION THRESHOLD FOR FL DIAGNOSIS. Performed By: #### T SH, BNP, HSTROPN, CMP #### [facility] [address] [place] [address] Dr. Jersey Butcher CK [Catalytic activity/Vol] 218 U/L Normal 39-308 [facility] Comment on above: Performed By: #### T SH, BNP, HSTROPN, CMP #### [facility] [address] [place] [address] Dr. Jersey Butcher CK.MB [Mass/Vol] 3.01 ng/mL Normal <=3.60 [facility] Comment on above: Performed By: #### T SH, BNP, HSTROPN, CMP #### [facility] [address] [place] [address] Dr. Jersey Butcher HSTROP 13.9 pg/mL Normal 4.0-76.1 [facility] Comment on above: Result Comment: CUT- OFF POINTS HAVE BEEN ESTABLISHED BASED ON THE FOURTH UNIVERSAL DEFINITIONS OF MYOCARDIAL INFARCTION. THE UPPER REFERENCE LIMIT (URL) OF TROPONIN, DEFINED THE 99TH PERCENTILE OF cTnI DISTRIBUTION IN A REFERENCE POPULATION, HAS BEEN CONFIRMED THE DECISION THRESHOLD FOR FL DIAGNOSIS. Performed By: #### T SH, BNP, HSTROPN, CMP #### [facility] [address] [place] [address] Dr. Jersey Butcher CBC W MANUAL DIFFon 06-01-20 22 ATYPICAL LYMPH # Normal [facility] Comment on above: Performed By: #### T SH, BNP, HSTROPN, CMP #### [facility] [address] [place] [address] Dr. Jersey Butcher ATYPICAL LYMPH % Normal [facility] Comment on above: Performed By: #### T SH, BNP, HSTROPN, CMP #### [facility] [address] [address] [address] Jersey Butcher BAND # 0.1 103/ul Normal 0.0-0.3 [facility] Comment on above: Performed By: #### T SH, BNP, HSTROPN, CMP #### [facility] [address] [place] [address] Dr. Jersey Butcher BAND % 2 % Normal 0-5 [facility] Comment on above: Performed By: #### T SH, BNP, HSTROPN, CMP #### [facility] [address] [place] [address] Dr. Jersey Butcher BASOM # 0.00 103/ul Normal 0.00-0.10 [facility] Comment on above: Performed By: #### T SH, BNP, HSTROPN, CMP #### [facility] [address] [place] [address] Dr. Jersey Butcher BASOM % 0.0 % Critically low 0.2-2.0 [facility] Comment on above: Performed By: #### T SH, BNP, HSTROPN, CMP #### [facility] [address] [place] [address] Dr. Jersey Butcher BLAST # Normal [facility] Comment on above: Performed By: #### T SH, BNP, HSTROPN, CMP #### [facility] [address] [place] [address] Dr. Jersey Butcher BLAST % Normal [facility] Comment on above: Performed By: #### T SH, BNP, HSTROPN, CMP #### [facility] [address] [place] [address] Dr. Jersey Butcher CORRECTED WBC Normal 4.0-11.0 [facility] Comment on above: Performed By: #### T SH, BNP, HSTROPN, CMP #### [facility] [address] [place] [address] Dr. Jersey Butcher EOS # 0.00 103/ul Normal 0.00-0.70 [facility] Comment on above: Performed By: #### T SH, BNP, HSTROPN, CMP #### [facility] [address] [place] [address] Dr. Jersey Butcher EOS% 0.0 % Critically low 0.9-7.0 [facility] Comment on above: Performed By: #### T SH, BNP, HSTROPN, CMP #### [facility] [address] [place] [address] Dr. Jersey Butcher HCT 45.5 % Normal 42.0-54.0 [facility] Comment on above: Performed By: #### T SH, BNP, HSTROPN, CMP #### [facility] [address] [place] [address] Dr. Jersey Butcher HGB 16.1 g/dl Normal 14.0-18.0 [facility] Comment on above: Performed By: #### T SH, BNP, HSTROPN, CMP #### [facility] [address] [place] [address] Dr. Jersey Butcher LYMPHM # 1.15 103/ul Critically low 1.20-3.80 [facility] Comment on above: Performed By: #### T SH, BNP, HSTROPN, CMP #### [facility] [address] [place] [address] Dr. Jersey Butcher LYMPHM% 25.0 % Normal 20.5-60.0 [facility] Comment on above: Performed By: #### T SH, BNP, HSTROPN, CMP #### [facility] [address] [place] [address] Dr. Jersey Butcher MCH 31.5 pg Normal 25.9-34.0 [facility] Comment on above: Performed By: #### T SH, BNP, HSTROPN, CMP #### [facility] [address] [place] [address] Dr. Jersey Butcher MCHC 35.4 g/dl Critically high 29.9-35.2 [facility] Comment on above: Performed By: #### T SH, BNP, HSTROPN, CMP #### [facility] [address] [place], [place] [id number] Dr. Jersey Butcher MCV 89.0 fL Normal 80.0-94.0 [facility] Comment on above: Performed By: #### T SH, BNP, HSTROPN, CMP #### [facility] [address] [place] [address] Dr. Jersey Butcher METAMYELOCYTE # Normal [facility] Comment on above: Performed By: #### T SH, BNP, HSTROPN, CMP #### [facility] [address] [place] [address] Dr. Jersey Butcher METAMYELOCYTE % Normal [facility] Comment on above: Performed By: #### T SH, BNP, HSTROPN, CMP #### [facility] [address] [place] [address] Dr. Jersey Butcher MONOM# 0.32 103/ul Normal 0.30-0.80 [facility] Comment on above: Performed By: #### T SH, BNP, HSTROPN, CMP #### [facility] [address] [place] [address] Dr. Jersey Butcher MONOM% 7.0 % Normal 1.7-12.0 [facility] Comment on above: Performed By: #### T SH, BNP, HSTROPN, CMP #### [facility] [address] [place] [address] Dr. Jersey Butcher MPV 10.4 fL Normal 9.5-13.5 [facility] Comment on above: Performed By: #### T SH, BNP, HSTROPN, CMP #### [facility] [address] [place] [address] Dr. Jersey Butcher MYELOCYTE # Normal [facility] Comment on above: Performed By: #### T SH, BNP, HSTROPN, CMP #### [facility] [address] [place] [address] Dr. Jersey Butcher MYELOCYTE % Normal [facility] Comment on above: Performed By: #### T SH, BNP, HSTROPN, CMP #### [facility] [address] [place] [address] Dr. Jersey Butcher NRBC Normal [facility] Comment on above: Performed By: #### T SH, BNP, HSTROPN, CMP #### [facility] [address] [place] [address] Dr. Jersey Butcehr PLT 195 103/ul Normal 150-450 [facility] Comment on above: Performed By: #### T SH, BNP, HSTROPN, CMP #### [facility] [address] [place] [address] Dr. Jersey Butcher RBC 5.11 106/ul Normal 4.70-6.10 [facility] Comment on above: Performed By: #### T SH, BNP, HSTROPN, CMP #### [facility] [address] [place] [address] Dr. Jersey Butcher RDW 11.6 % Normal 11.0-15.0 [facility] Comment on above: Performed By: #### T SH, BNP, HSTROPN, CMP #### [facility] [address] [place] [address] Dr. Jersey Butcher SEG # 3.04 103/ul Normal 1.40-6.50 [facility] Comment on above: Performed By: #### T SH, BNP, HSTROPN, CMP #### [facility] [address] [place] [address] Dr. Jersey Butcher SEG % 66.0 % Normal 43.0-75.0 [facility] Comment on above: Performed By: #### T SH, BNP, HSTROPN, CMP #### [facility] [address] [place] [address] Dr. Jersey Butcher WBC 4.6 103/ul Normal 4.0-11.0 [facility] Comment on above: Performed By: #### T SH, BNP, HSTROPN, CMP #### [facility] [address] [place] [address] Dr. Jersey Butcher CTA CHEST WO W [...] by: KESHAWN ALVAREZ Date: 2022-06-01 17:55 Normal [facility] CULTURE BLOODon 06-01-2022 Microscopic examination of blood, culture Culture Observations: NO GROWTH AT 5 DAYS. Normal [facility] Comment on above: Performed By: #### C MADDIE #### [facility] [address] [address] [address] Jersey Butcher Microscopic examination of blood, culture Culture Observations: NO GROWTH AT 5 DAYS. Normal [facility] Comment on above: Performed By: #### C MADDIE #### [facility] [address] [address] [address] Jersey Butcher Covid-19 PCR ([facility])on 05-18 SARS-CoV-2 (COVID-19) RNA PILI+probe Ql (Unsp spec) Not detected Normal NOT DETECTED [facility] Comment on above: Result Comment: When [...] for this test is supported by the [employer] Service's declaration that [...] By: #### D DIM #### [facility] [address] [place] [address] Dr. Jersey Butcher LACTATE/LACTIC ACIDon 2021 Lactate [Moles/Vol] 1.3 mmol/L Normal 0.4-1.[address] [facility] Comment on above: Performed By: #### T SH, BNP, HSTROPN, CMP #### [facility] [address] [place] [address] Dr. Jersey Butcher PH VENOUS BLOODon 06-01-2022 PCO2 VENOUS 45.8 mmHg Normal 40.0-52.0 [facility] Comment on above: Performed By: #### C VDTBH #### [facility] [address] [place] [address] Dr. Jersey Butcher pH VENOUS 7.508 Critically high 7.330-7.430 [facility] Comment on above: Performed By: #### C VDTBH #### [facility] [address] [place] [address] Dr. Jersey Butcher PROF 14(COMP METB)on 022 Albumin [Mass/Vol] 3.1 g/dL Critically low 3.4-5.0 [facility] Comment on above: Performed By: #### T SH, BNP, HSTROPN, CMP #### [facility] [address] [place] [address] Dr. Jersey Butcher Albumin/Globulin [Mass ratio] 0.8 {ratio} Normal [facility] Comment on above: Performed By: #### T SH, BNP, HSTROPN, CMP #### [facility] [address] [place] [address] Dr. Jersey Butcher ALP [Catalytic activity/Vol] 103 U/L Normal 46-116 [facility] Comment on above: Performed By: #### T SH, BNP, HSTROPN, CMP #### [facility] [address] [place] [address] Dr. Jersey Butcher ALT [Catalytic activity/Vol] 50 U/L Normal 16-63 [facility] Comment on above: Performed By: #### T SH, BNP, HSTROPN, CMP #### [facility] [address] [address] [address] Jersey Butcher Anion gap [Moles/Vol] 6.7 mmol/L Normal [facility] Comment on above: Performed By: #### T SH, BNP, HSTROPN, CMP #### [facility] [address] [address] [address] Jersey Butcher AST [Catalytic activity/Vol] 43 U/L Critically high 15-37 [facility] Comment on above: Performed By: #### T SH, BNP, HSTROPN, CMP #### [facility] [address] [place] [address] Dr. Jersey Butcher Bilirubin [Mass/Vol] 0.7 mg/dL Normal 0.2-1.0 [facility] Comment on above: Performed By: #### T SH, BNP, HSTROPN, CMP #### [facility] [address] [place] [address] Dr. Jersey Butcher Calcium [Mass/Vol] 8.7 mg/dL Normal 8.5-10.1 [facility] Comment on above: Performed By: #### T SH, BNP, HSTROPN, CMP #### [facility] [address] [place] [address] Dr. Jersey Butcher Chloride [Moles/Vol] 94 mmol/L Critically low 98-107 [facility] Comment on above: Performed By: #### T SH, BNP, HSTROPN, CMP #### [facility] [address] [place] [address] Dr. Jersey Butcher CO2 [Moles/Vol] 35.4 mmol/L Critically high 21.0-32.0 [facility] Comment on above: Performed By: #### T SH, BNP, HSTROPN, CMP #### [facility] [address] [place] [address] Dr. Jersey Butcher Creatinine [Mass/Vol] 1.05 mg/dL Normal 0.70-1.30 [facility] Comment on above: Performed By: #### T SH, BNP, HSTROPN, CMP #### [facility] [address] [place] [address] Dr. Jersey Butcher EGFR-AF [place] ISLANDER >60 Normal >=60 [facility] Comment on above: Performed By: #### T SH, BNP, HSTROPN, CMP #### [facility] [address] [place] [address] Dr. Jersey Butcher EGFR-NON AF [place]ER >60 Normal >=60 [facility] Comment on above: Performed By: #### T SH, BNP, HSTROPN, CMP #### [facility] [address] [place] [address] Dr. Jersey Butcher Globulin (S) [Mass/Vol] 3.9 g/dL Normal [facility] Comment on above: Performed By: #### T SH, BNP, HSTROPN, CMP #### [facility] [address] [place] [address] Dr. Jersey Butcher Glucose [Mass/Vol] 116 mg/dL Critically high 74-106 [facility] Comment on above: Performed By: #### T SH, BNP, HSTROPN, CMP #### [facility] [address] [place] [address] Dr. Jersey Butcher Potassium [Moles/Vol] 3.1 mmol/L Critically low 3.5-5.1 [facility] Comment on above: Performed By: #### T SH, BNP, HSTROPN, CMP #### [facility] [address] [place] [address] Dr. Jersey Butcher Protein [Mass/Vol] 7.0 g/dL Normal 6.4-8.2 [facility] Comment on above: Performed By: #### T SH, BNP, HSTROPN, CMP #### [facility] [address] [place] [address] Dr. Jersey Butcher Sodium [Moles/Vol] 133 mmol/L Critically low 136-145 [facility] Comment on above: Performed By: #### T SH, BNP, HSTROPN, CMP #### [facility] [address] [place] [address] Dr. Jersey Butcher Urea nitrogen [Mass/Vol] 19.0 mg/dL Critically high 7.0-18.0 [facility] Comment on above: Performed By: #### T SH, BNP, HSTROPN, CMP #### [facility] [address] [place] [address] Dr. Jersey Butcher Urea nitrogen/Creatinine [Mass ratio] 18.1 mg/mg Normal [facility] Comment on above: Performed By: #### T SH, BNP, HSTROPN, CMP #### [facility] [address] [place] [address] Dr. Jersey Butcher PROTIMEon 06-01-2022 INR Coag (PPP) [Relative time] 0.95 {INR} Normal [facility] Comment on above: Performed By: #### T SH, BNP, HSTROPN, CMP #### [facility] [address] [place] [address] Dr. Jersey Butcher INR GUIDELINES SEE BELOW Normal [facility] Comment on above: Result Comment: MARCIA RED INR: 2.0 - 3.0 CONDITIONS NOT LISTED BELOW 2.5 - 3.5 FOR PROSTHETIC HEART VALVE REPLACEMENT 2.5 - 3.5 RECURRENT THROMBOSIS Performed By: #### T SH, BNP, HSTROPN, CMP #### [facility] [address] [place] [address] Dr. Jersey Butcher PT Coag (PPP) [Time] 10.3 s Normal 9.0-11.6 [facility] Comment on above: Performed By: #### T SH, BNP, HSTROPN, CMP #### [facility] [address] [place] [address] Dr. Jersey Butcher PTTon 06-01-2022 aPTT Coag (Bld) [Time] 27.1 s Normal 22.3-36.2 [facility] Comment on above: Performed By: #### T SH, BNP, HSTROPN, CMP #### [facility] [address] [place] [address] Dr. Jersey Butcher TROPONIN, HIGH SENSITIVITYon 06-01-2022 HSTROP 14.8 pg/mL Normal 4.0-76.1 [facility] Comment on above: Result Comment: CUT- OFF POINTS HAVE BEEN ESTABLISHED BASED ON THE FOURTH UNIVERSAL DEFINITIONS OF MYOCARDIAL INFARCTION. THE UPPER REFERENCE LIMIT (URL) OF TROPONIN, DEFINED THE 99TH PERCENTILE OF cTnI DISTRIBUTION IN A REFERENCE POPULATION, HAS BEEN CONFIRMED THE DECISION THRESHOLD FOR [place] DIAGNOSIS. Performed By: #### T SH, BNP, HSTROPN, CMP #### [facility] [address] [address] [address] Jersey Butcher TSHon 06-01-2022 TSH 0.358 uIU/mL Normal 0.358-3.740 [facility] Comment on above: Performed By: #### T SH, BNP, HSTROPN, CMP #### [facility] [address] [address] [address] Jersey Butcher Covid-19 PCR ([facility])on 05-18 SARS-CoV-2 (COVID-19) RNA PILI+probe Ql (Unsp spec) Not detected Normal NOT DETECTED [facility] Comment on above: Result Comment: This test is not yet approved or cleared by the [place] FDA. When there are no FDA-approved or cleared tests available, and other criteria are met, FDA can make tests available under an emergency access mechanism called an Emergency Use Authorization (EUA). The EUA for this test is supported by the [employer] and Human Service's (HHS's) declaration [...] SH, BNP, HSTROPN, CMP #### [facility] [address] [place] [address] Dr. Jersey Butcher CARDIAC VIDHI 3-6on 2 CK [Catalytic activity/Vol] 624 U/L Critically high 39-308 [facility] Comment on above: Performed By: #### T SH, BNP, HSTROPN, CMP #### [facility] [address] [place] [address] Dr. Jersey Butcher CK.MB [Mass/Vol] 0.09 ng/mL Normal <=3.60 [facility] Comment on above: Performed By: #### T SH, BNP, HSTROPN, CMP #### [facility] [address] [place] [address] Dr. Jersey Butcher HSTROP 14.9 pg/mL Normal 4.0-76.1 [facility] Comment on above: Result Comment: CUT- OFF POINTS HAVE BEEN ESTABLISHED BASED ON THE FOURTH UNIVERSAL DEFINITIONS OF MYOCARDIAL INFARCTION. THE UPPER REFERENCE LIMIT (URL) OF TROPONIN, DEFINED THE 99TH PERCENTILE OF cTnI DISTRIBUTION IN A REFERENCE POPULATION, HAS BEEN CONFIRMED THE DECISION THRESHOLD FOR [place] DIAGNOSIS. Performed By: #### T SH, BNP, HSTROPN, CMP #### [facility] [address] [place] [address] Dr. Jersey Butcher CARDIAC VIDHI ADMITon 022 CK [Catalytic activity/Vol] 659 U/L Critically high 39-308 [facility] Comment on above: Performed By: #### T SH, BNP, HSTROPN, CMP #### [facility] [address] [place] [address] Dr. Jersey Butcher CK.MB [Mass/Vol] 0.16 ng/mL Normal <=3.60 [facility] Comment on above: Performed By: #### T SH, BNP, HSTROPN, CMP #### [facility] [address] [place] [address] Dr. Jersey Butcher HSTROP 15.8 pg/mL Normal 4.0-76.1 [facility] Comment on above: Result Comment: CUT- OFF POINTS HAVE BEEN ESTABLISHED BASED ON THE FOURTH UNIVERSAL DEFINITIONS OF MYOCARDIAL INFARCTION. THE UPPER REFERENCE LIMIT (URL) OF TROPONIN, DEFINED THE 99TH PERCENTILE OF cTnI DISTRIBUTION IN A REFERENCE POPULATION, HAS BEEN CONFIRMED THE DECISION THRESHOLD FOR [place] DIAGNOSIS. Performed By: #### T SH, BNP, HSTROPN, CMP #### [facility] [address] [place] [address] Dr. Jersey Butcher NILDA 266 ng/mL Critically high 16-96 [facility] Comment on above: Performed By: #### T SH, BNP, HSTROPN, CMP #### [facility] [address] [place] [address] Dr. Jersey Butcher CBC AUTO DIFFon 05-26-2022 BASO # 0.0 103/ul Normal 0.0-0.1 [facility] Comment on above: Performed By: #### C MADDIE #### [facility] [address] [place] [address] Dr. Jersey Butcher Basophils/100 WBC (Bld) 0.2 % Normal 0.2-2.0 [facility] Comment on above: Performed By: #### C MADDIE #### [facility] [address] [place] [address] Dr. Jersey Butcher EO # 0.0 103/ul Normal 0.0-0.7 [facility] Comment on above: Performed By: #### C MADDIE #### [facility] [address] [place] [address] Dr. Jersey Butcher Eosinophils/100 WBC (Bld) 0.3 % Critically low 0.9-7.0 [facility] Comment on above: Performed By: #### C MADDIE #### [facility] [address] [place] [address] Dr. Jersey Butcher Erythrocyte distribution width (RBC) [Ratio] 11.9 % Normal 11.0-15.0 [facility] Comment on above: Performed By: #### C MADDIE #### [facility] [address] [place] [address] Dr. Jersey Butcher Hematocrit (Bld) [Volume fraction] 45.0 % Normal 42.0-54.0 [facility] Comment on above: Performed By: #### C MADDIE #### [facility] [address] [place] [address] Dr. Jersey Butcher Hemoglobin (Bld) [Mass/Vol] 15.6 g/dL Normal 14.0-18.0 [facility] Comment on above: Performed By: #### C MADDIE #### [facility] [address] [place] [address] Dr. Jersey Butcher IG # 0.02 10e3/ul Normal 0.00-0.03 [facility] Comment on above: Performed By: #### C MADDIE #### [facility] [address] [place] [address] Dr. Jersey Butcher IG % 0.2 % Normal 0.0-0.5 [facility] Comment on above: Performed By: #### C MADDIE #### [facility] [address] [place] [address] Dr. Jersey Butcher LYMPH # 0.4 103/ul Critically low 1.2-3.8 [facility] Comment on above: Performed By: #### C MADDIE #### [facility] [address] [place] [address] Dr. Jersey Butcher Lymphocytes/100 WBC (Bld) 3.6 % Critically low 20.5-60.0 [facility] Comment on above: Performed By: #### C MADDIE #### [facility] [address] [place] [address] Dr. Jersey Butcher MANUAL DIFF REQ NO Normal [facility] Comment on above: Performed By: #### C MADDIE #### [facility] [address] [place] [address] Dr. Jersey Butcher MCH (RBC) [Entitic mass] 32.0 pg Normal 25.9-34.0 [facility] Comment on above: Performed By: #### C MADDIE #### [facility] [address] [place] [address] Dr. Jersey Butcher MCHC (RBC) [Mass/Vol] 34.7 g/dL Normal 29.9-35.2 [facility] Comment on above: Performed By: #### C MADDIE #### [facility] [address] [place] [address] Dr. Jersey Butcher MCV (RBC) [Entitic vol] 92.2 fL Normal 80.0-94.0 [facility] Comment on above: Performed By: #### C MADDIE #### [facility] [address] [place] [address] Dr. Jersey Butcher MONO # 0.8 103/ul Normal 0.3-0.8 [facility] Comment on above: Performed By: #### C MADDIE #### [facility] [address] [place] [address] Dr. Jersey Butcher Monocytes/100 WBC (Bld) 6.9 % Normal 1.7-12.0 [facility] Comment on above: Performed By: #### C MADDIE #### [facility] [address] [place] [address] Dr. Jersey Butcher NEUT # 10.5 103/ul Critically high 1.4-6.5 [facility] Comment on above: Performed By: #### C MADDIE #### [facility] [address] [place] [address] Dr. Jersey Butcher Neutrophils/100 WBC (Bld) 88.8 % Critically high 43.0-75.0 [facility] Comment on above: Performed By: #### C MADDIE #### [facility] [address] [place] [address] Dr. Jersey Butcher Platelet mean volume (Bld) [Entitic vol] 10.1 fL Normal 9.5-13.5 [facility] Comment on above: Performed By: #### C MADDIE #### [facility] [address] [place] [address] Dr. Jersey Butcher PLT 273 103/ul Normal 150-450 [facility] Comment on above: Performed By: #### C MADDIE #### [facility] [address] [place] [address] Dr. Jersey Butcher RBC 4.88 106/ul Normal 4.70-6.10 [facility] Comment on above: Performed By: #### C MADDIE #### [facility] [address] [address] [address] Jersey Butcher WBC 11.8 103/ul Critically high 4.0-11.0 [facility] Comment on above: Performed By: #### C MADDIE #### [facility] [address] [address] [address] Jersey Butcher Covid-19 PCR ([facility])on SARS-CoV-2 (COVID-19) RNA PILI+probe Ql (Unsp spec) Not detected Normal NOT DETECTED [facility] Comment on above: Result Comment: When [...] for this test is supported by the [employer] and Human Service's declaration that [...] SH, BNP, HSTROPN, CMP #### [facility] [address] [place] [address] Dr. Jersey Butcher INFLUENZA A AND B AGon 05-26 INFLUANEGH SEE BELOW Normal [facility] Comment on above: Result Comment: Nega tive for Flu A protein angiten. Infection due to Flu A cannot be ruled out. Flu A angiten in the sample may be below the detection limit of the test. Performed By: #### T SH, BNP, HSTROPN, CMP #### [facility] [address] [place] [address] Dr. Jersey Butcher INFLUBNEGH SEE BELOW Normal [facility] Comment on above: Result Comment: Nega tive for Flu B protein antigen. Infection due to Flu B cannot be ruled out. Flu B antigen in the sample may be below the detection limit of the test. Performed By: #### T SH, BNP, HSTROPN, CMP #### [facility] [address] [place] [address] Dr. Jersey Butcher INFLUENZA A AG Negative Normal NEGATIVE SEE COMMENT [facility] Comment on above: Performed By: #### T SH, BNP, HSTROPN, CMP #### [facility] [address] [place] [address] Dr. Jersey Butcher INFLUENZA B AG Negative Normal NEGATIVE SEE COMMENT [facility] Comment on above: Performed By: #### T SH, BNP, HSTROPN, CMP #### [facility] [address] [place] [address] Dr. Jersey Butcher INTERNAL CONTROLS Within Normal Limits Normal Wi thin Normal Limits [facility] Comment on above: Performed By: #### T SH, BNP, HSTROPN, CMP #### [facility] [address] [place] [address] Dr. Jersey Butcher LACTATE/LACTIC ACIDon 2021 Lactate [Moles/Vol] 1.8 mmol/L Normal 0.4-1.[address] [facility] Comment on above: Performed By: #### T SH, BNP, HSTROPN, CMP #### [facility] [address] [place] [address] Dr. Jersey Butcher PROF CHEM 8 (BAS METB)on Anion gap [Moles/Vol] 7.1 mmol/L Normal [facility] Comment on above: Performed By: #### T SH, BNP, HSTROPN, CMP #### [facility] [address] [place] [address] Dr. Jersey Butcher Calcium [Mass/Vol] 8.9 mg/dL Normal 8.5-10.1 [facility] Comment on above: Performed By: #### T SH, BNP, HSTROPN, CMP #### [facility] [address] [place] [address] Dr. Jersey Butcher Chloride [Moles/Vol] 95 mmol/L Critically low 98-107 [facility] Comment on above: Performed By: #### T SH, BNP, HSTROPN, CMP #### [facility] [address] [address] [address] Jersey Butcher CO2 [Moles/Vol] 33.2 mmol/L Critically high 21.0-32.0 [facility] Comment on above: Performed By: #### T SH, BNP, HSTROPN, CMP #### [facility] [address] [address] [address] Jersey Butcher Creatinine [Mass/Vol] 1.19 mg/dL Normal 0.70-1.30 [facility] Comment on above: Performed By: #### T SH, BNP, HSTROPN, CMP #### [facility] [address] [place] [address] Dr. Jersey Butcher EGFR-AF [place]CA[place]N ISLANDER >60 Normal >=60 [facility] Comment on above: Performed By: #### T SH, BNP, HSTROPN, CMP #### [facility] [address] [place] [address] Dr. Jersey Butcher EGFR-NON AF [place] ISLANDER >60 Normal >=60 [facility] Comment on above: Performed By: #### T SH, BNP, HSTROPN, CMP #### [facility] [address] [place] [address] Dr. Jersey Butcher Glucose [Mass/Vol] 135 mg/dL Critically high 74-106 [facility] Comment on above: Performed By: #### T SH, BNP, HSTROPN, CMP #### [facility] [address] [place] [address] Dr. Jersey Butcher Potassium [Moles/Vol] 3.3 mmol/L Critically low 3.5-5.1 [facility] Comment on above: Performed By: #### T SH, BNP, HSTROPN, CMP #### [facility] [address] [place] [address] Dr. Jersey Butcher Sodium [Moles/Vol] 132 mmol/L Critically low 136-145 [facility] Comment on above: Performed By: #### T SH, BNP, HSTROPN, CMP #### [facility] [address] [address] [address] Jersey Butcher Urea nitrogen [Mass/Vol] 18.0 mg/dL Normal 7.0-18.0 [facility] Comment on above: Performed By: #### T SH, BNP, HSTROPN, CMP #### [facility] [address] [address] [address] Jersey Butcher Urea nitrogen/Creatinine [Mass ratio] 15.1 mg/mg Normal [facility] Comment on above: Performed By: #### T SH, BNP, HSTROPN, CMP #### [facility] [address] [place] [address] Dr. Jersey Butcher RSVon 05-26-2022 RSV AG Negative Normal NEGATIVE [facility] Comment on above: Performed By: #### T SH, BNP, HSTROPN, CMP #### [facility] [address] [place] [address] Dr. Jersey Butcher XR CHEST 1 Von [...] as clinically indicated. Electronically authenticated by: MARLENE SAID Date: 2022-05-26 00:45 Normal [facility] BNPon 05-20-2022 Natriuretic peptide B (Bld) [Mass/Vol] 137.0 pg/mL Normal <=900.0 [facility] Comment on above: Performed By: #### C VDTBH #### [facility] [address] [place] [address] Dr. Jersey Butcher CARDIAC VIDHI 3-6on 2 CK [Catalytic activity/Vol] 139 U/L Normal 39-308 [facility] Comment on above: Performed By: #### C VDTBH #### [facility] [address] [address] [address] Jersey Butcher CK.MB [Mass/Vol] 2.85 ng/mL Normal <=3.60 [facility] Comment on above: Performed By: #### C VDTBH #### [facility] [address] [address] [address] Jersey Butcher HSTROP 78.1 pg/mL Critically high 4.0-76.1 [facility] Comment on above: Result Comment: CUT- OFF POINTS HAVE BEEN ESTABLISHED BASED ON THE FOURTH UNIVERSAL DEFINITIONS OF MYOCARDIAL INFARCTION. THE UPPER REFERENCE LIMIT (URL) OF TROPONIN, DEFINED THE 99TH PERCENTILE OF cTnI DISTRIBUTION IN A REFERENCE POPULATION, HAS BEEN CONFIRMED THE DECISION THRESHOLD FOR [place] DIAGNOSIS. Performed By: #### C VDTBH #### [facility] [address] [address] [address] Jersey Butcher CK [Catalytic activity/Vol] 159 U/L Normal 39-308 [facility] Comment on above: Performed By: #### T SH, BNP, HSTROPN, CMP #### [facility] [address] [address] [address] Jersey Butcher CK.MB [Mass/Vol] 3.45 ng/mL Normal <=3.60 [facility] Comment on above: Performed By: #### T SH, BNP, HSTROPN, CMP #### [facility] [address] [address] [address] Jersey Butcher HSTROP 84.8 pg/mL Critically high 4.0-76.1 [facility] Comment on above: Result Comment: CUT- OFF POINTS HAVE BEEN ESTABLISHED BASED ON THE FOURTH UNIVERSAL DEFINITIONS OF MYOCARDIAL INFARCTION. THE UPPER REFERENCE LIMIT (URL) OF TROPONIN, DEFINED THE 99TH PERCENTILE OF cTnI DISTRIBUTION IN A REFERENCE POPULATION, HAS BEEN CONFIRMED THE DECISION THRESHOLD FOR [place] DIAGNOSIS. Performed By: #### T SH, BNP, HSTROPN, CMP #### [facility] [address] [address] [address] Jersey Butcher CARDIAC VIDHI ADMITon 022 CK [Catalytic activity/Vol] 170 U/L Normal 39-308 [facility] Comment on above: Performed By: #### C VDTBH #### [facility] [address] [place] [address] Dr. Jersey Butcher CK.MB [Mass/Vol] 2.94 ng/mL Normal <=3.60 [facility] Comment on above: Performed By: #### C VDTBH #### [facility] [address] [place] [address] Dr. Jersey Butcher HSTROP 82.2 pg/mL Critically high 4.0-76.1 [facility] Comment on above: Result Comment: CUT- OFF POINTS HAVE BEEN ESTABLISHED BASED ON THE FOURTH UNIVERSAL DEFINITIONS OF MYOCARDIAL INFARCTION. THE UPPER REFERENCE LIMIT (URL) OF TROPONIN, DEFINED THE 99TH PERCENTILE OF cTnI DISTRIBUTION IN A REFERENCE POPULATION, HAS BEEN CONFIRMED THE DECISION THRESHOLD FOR [place] DIAGNOSIS. Performed By: #### C VDTBH #### [facility] [address] [place] [address] Dr. Jersey Butcher NILDA 72 ng/mL Normal 16-96 [facility] Comment on above: Performed By: #### C VDTBH #### [facility] [address] [place] [address] Dr. Jersey Butcher CBC AUTO DIFFon 05-20-2022 BASO # 0.0 103/ul Normal 0.0-0.1 [facility] Comment on above: Performed By: #### C BC #### [facility] [address] [place] [address] Dr. Jersey Butcher Basophils/100 WBC (Bld) 0.3 % Normal 0.2-2.0 [facility] Comment on above: Performed By: #### C BC #### [facility] [address] [place] [address] Dr. Jersey Butcher EO # 0.1 103/ul Normal 0.0-0.7 [facility] Comment on above: Performed By: #### C BC #### [facility] [address] [place] [address] Dr. Jersey Butcher Eosinophils/100 WBC (Bld) 1.8 % Normal 0.9-7.0 [facility] Comment on above: Performed By: #### C BC #### [facility] [address] [place] [address] Dr. Jersey Butcher Erythrocyte distribution width (RBC) [Ratio] 11.9 % Normal 11.0-15.0 [facility] Comment on above: Performed By: #### C BC #### [facility] [address] [place] [address] Dr. Jersey Butcher Hematocrit (Bld) [Volume fraction] 43.5 % Normal 42.0-54.0 [facility] Comment on above: Performed By: #### C BC #### [facility] [address] [place] [address] Dr. Jersey Butcher Hemoglobin (Bld) [Mass/Vol] 15.4 g/dL Normal 14.0-18.0 [facility] Comment on above: Performed By: #### C BC #### [facility] [address] [place] [address] Dr. Jersey Butcher IG # 0.01 10e3/ul Normal 0.00-0.03 [facility] Comment on above: Performed By: #### C BC #### [facility] [address] [place] [address] Dr. Jersey Butcher IG % 0.2 % Normal 0.0-0.5 [facility] Comment on above: Performed By: #### C BC #### [facility] [address] [place] [address] Dr. Jersey Butcher LYMPH # 1.4 103/ul Normal 1.2-3.8 [facility] Comment on above: Performed By: #### C BC #### [facility] [address] [place] [address] Dr. Jersey Butcher Lymphocytes/100 WBC (Bld) 21.0 % Normal 20.5-60.0 [facility] Comment on above: Performed By: #### C BC #### [facility] [address] [place] [address] Dr. Jersey Butcher MANUAL DIFF REQ NO Normal [facility] Comment on above: Performed By: #### C BC #### [facility] [address] [address] [address] Jersey Butcher MCH (RBC) [Entitic mass] 32.2 pg Normal 25.9-34.0 [facility] Comment on above: Performed By: #### C BC #### [facility] [address] [place] [address] Dr. Jersey Butcher MCHC (RBC) [Mass/Vol] 35.4 g/dL Critically high 29.9-35.2 [facility] Comment on above: Performed By: #### C BC #### [facility] [address] [place] [address] Dr. Jersey Butcher MCV (RBC) [Entitic vol] 91.0 fL Normal 80.0-94.0 [facility] Comment on above: Performed By: #### C BC #### [facility] [address] [place] [address] Dr. Jersey Butcher MONO # 1.0 103/ul Critically high 0.3-0.8 [facility] Comment on above: Performed By: #### C BC #### [facility] [address] [place] [address] Dr. Jersey Butcher Monocytes/100 WBC (Bld) 14.9 % Critically high 1.7-12.0 [facility] Comment on above: Performed By: #### C BC #### [facility] [address] [place] [address] Dr. Jersey Butcher NEUT # 4.0 103/ul Normal 1.4-6.5 [facility] Comment on above: Performed By: #### C BC #### [facility] [address] [place] [address] Dr. Jersey Butcher Neutrophils/100 WBC (Bld) 61.8 % Normal 43.0-75.0 [facility] Comment on above: Performed By: #### C BC #### [facility] [address] [place] [address] Dr. Jersey Butcher Platelet mean volume (Bld) [Entitic vol] 9.7 fL Normal 9.5-13.5 [facility] Comment on above: Performed By: #### C BC #### [facility] [address] [place] [address] Dr. Jersey Butcher PLT 246 103/ul Normal 150-450 [facility] Comment on above: Performed By: #### C BC #### [facility] [address] [place] [address] Dr. Jersey Butcher RBC 4.78 106/ul Normal 4.70-6.10 [facility] Comment on above: Performed By: #### C BC #### [facility] [address] [place] [address] Dr. Jersey Butcher WBC 6.5 103/ul Normal 4.0-11.0 [facility] Comment on above: Performed By: #### C BC #### [facility] [address] [place] [address] Dr. Jersey Butcher BASO # 0.0 103/ul Normal 0.0-0.1 [facility] Comment on above: Performed By: #### C BC #### [facility] [address] [place] [address] Dr. Jersey Butcher Basophils/100 WBC (Bld) 0.3 % Normal 0.2-2.0 [facility] Comment on above: Performed By: #### C BC #### [facility] [address] [place] [address] Dr. Jersey Butcher EO # 0.1 103/ul Normal 0.0-0.7 [facility] Comment on above: Performed By: #### C BC #### [facility] [address] [place] [address] Dr. Jersey Butcher Eosinophils/100 WBC (Bld) 1.4 % Normal 0.9-7.0 [facility] Comment on above: Performed By: #### C BC #### [facility] [address] [place] [address] Dr. Jersey Butcher Erythrocyte distribution width (RBC) [Ratio] 11.9 % Normal 11.0-15.0 [facility] Comment on above: Performed By: #### C BC #### [facility] [address] [place] [address] Dr. Jersey Butcher Hematocrit (Bld) [Volume fraction] 42.5 % Normal 42.0-54.0 [facility] Comment on above: Performed By: #### C BC #### [facility] [address] [place] [address] Dr. Jersey Butcher Hemoglobin (Bld) [Mass/Vol] 14.7 g/dL Normal 14.0-18.0 [facility] Comment on above: Performed By: #### C BC #### [facility] [address] [place] [address] Dr. Jersey Butcher IG # 0.02 10e3/ul Normal 0.00-0.03 [facility] Comment on above: Performed By: #### C BC #### [facility] [address] [place] [address] Dr. Jersey Butcher IG % 0.3 % Normal 0.0-0.5 [facility] Comment on above: Performed By: #### C BC #### [facility] [address] [place] [address] Dr. Jersey Butcher LYMPH # 2.0 103/ul Normal 1.2-3.8 [facility] Comment on above: Performed By: #### C BC #### [facility] [address] [place] [address] Dr. Jersey Butcher Lymphocytes/100 WBC (Bld) 28.9 % Normal 20.5-60.0 [facility] Comment on above: Performed By: #### C BC #### [facility] [address] [place] [address] Dr. Jersey Butcher MANUAL DIFF REQ NO Normal [facility] Comment on above: Performed By: #### C BC #### [facility] [address] [place] [address] Dr. Jersey Butcher MCH (RBC) [Entitic mass] 31.8 pg Normal 25.9-34.0 [facility] Comment on above: Performed By: #### C BC #### [facility] [address] [address] [address] Jersey Butcher MCHC (RBC) [Mass/Vol] 34.6 g/dL Normal 29.9-35.2 [facility] Comment on above: Performed By: #### C BC #### [facility] [address] [place] [address] Dr. Jersey Butcher MCV (RBC) [Entitic vol] 92.0 fL Normal 80.0-94.0 [facility] Comment on above: Performed By: #### C BC #### [facility] [address] [place] [address] Dr. Jersey Butcher MONO # 1.1 103/ul Critically high 0.3-0.8 [facility] Comment on above: Performed By: #### C BC #### [facility] [address] [place] [address] Dr. Jersey Butcher Monocytes/100 WBC (Bld) 15.3 % Critically high 1.7-12.0 [facility] Comment on above: Performed By: #### C BC #### [facility] [address] [place] [address] Dr. Jersey Butcher NEUT # 3.7 103/ul Normal 1.4-6.5 [facility] Comment on above: Performed By: #### C BC #### [facility] [address] [place] [address] Dr. Jersey Butcher Neutrophils/100 WBC (Bld) 53.8 % Normal 43.0-75.0 [facility] Comment on above: Performed By: #### C BC #### [facility] [address] [place] [address] Dr. Jersey Butcher Platelet mean volume (Bld) [Entitic vol] 9.9 fL Normal 9.5-13.5 [facility] Comment on above: Performed By: #### C BC #### [facility] [address] [place] [address] Dr. Jersey Butcher PLT 268 103/ul Normal 150-450 [facility] Comment on above: Performed By: #### C BC #### [facility] [address] [place] [address] Dr. Jersey Butcher RBC 4.62 106/ul Critically low 4.70-6.10 [facility] Comment on above: Performed By: #### C BC #### [facility] [address] [address] [address] Jeresy Butcher WBC 7.0 103/ul Normal 4.0-11.0 [facility] Comment on above: Performed By: #### C BC #### [facility] [address] [address] [address] Jersey Butcher [facility]on SARS-CoV-2 (COVID-19) RNA PILI+probe Ql (Unsp spec) Not detected Normal NOT DETECTED [facility] Comment on above: Result Comment: When [...] for this test is supported by the [employer] and Human Service's declaration that [...] SH, BNP, HSTROPN, CMP #### [facility] [address] [address] [address] Jersey Butcher D-DIMERon 05-20-2022 D-DIMER 0.57 mg/L FEU Normal <=0.59 [facility] Comment on above: Performed By: #### D DIM #### [facility] [address] [address] [address] Jersey Butcher D-DIMER COMMENTS SEE BELOW Normal [facility] Comment on above: Result Comment: Incr [...] By: #### D DIM #### [facility] [address] [place] [address] Dr. Jersey Butcher PROF CHEM 8 (BAS METB)on Anion gap [Moles/Vol] 6.5 mmol/L Normal [facility] Comment on above: Performed By: #### C MADDIE #### [facility] [address] [place] [address] Dr. Jersey Butcher Calcium [Mass/Vol] 8.8 mg/dL Normal 8.5-10.1 [facility] Comment on above: Performed By: #### C MADDIE #### [facility] [address] [place] [address] Dr. Jersey Butcher Chloride [Moles/Vol] 99 mmol/L Normal 98-107 [facility] Comment on above: Performed By: #### C BCROSIE #### [facility] [address] [place] [address] Dr. Jersey Butcher CO2 [Moles/Vol] 35.8 mmol/L Critically high 21.0-32.0 [facility] Comment on above: Performed By: #### C BCROSIE #### [facility] [address] [place] [address] Dr. Jersey Butcher Creatinine [Mass/Vol] 0.84 mg/dL Normal 0.70-1.30 [facility] Comment on above: Performed By: #### C BCMAN #### [facility] [address] [place] [address] Dr. Jersey Butcher EGFR-AF [place] ISLANDER >60 Normal >=60 [facility] Comment on above: Performed By: #### C BCMAN #### [facility] [address] [address] [address] Jersey Butcher EGFR-NON AF [place]ER >60 Normal >=60 [facility] Comment on above: Performed By: #### C MADDIE #### [facility] [address] [address] [address] Jersey Butcher Glucose [Mass/Vol] 108 mg/dL Critically high 74-106 [facility] Comment on above: Performed By: #### C MADDIE #### [facility] [address] [address] [address] Jersey Butcher Potassium [Moles/Vol] 3.3 mmol/L Critically low 3.5-5.1 [facility] Comment on above: Performed By: #### C MADDIE #### [facility] [address] [address] [address] Jersey Butcher Sodium [Moles/Vol] 138 mmol/L Normal 136-145 [facility] Comment on above: Performed By: #### C MADDIE #### [facility] [address] [address] [address] Jersey Butcher Urea nitrogen [Mass/Vol] 17.0 mg/dL Normal 7.0-18.0 [facility] Comment on above: Performed By: #### C MADDIE #### [facility] [address] [address] [address] Jersey Butcher Urea nitrogen/Creatinine [Mass ratio] 20.2 mg/mg Normal [facility] Comment on above: Performed By: #### C MADDIE #### [facility] [address] [address] [address] Jersey Butcher Anion gap [Moles/Vol] 6.8 mmol/L Normal [facility] Comment on above: Performed By: #### C VDTBH #### [facility] [address] [address] [address] Jersey Butcher Calcium [Mass/Vol] 8.8 mg/dL Normal 8.5-10.1 [facility] Comment on above: Performed By: #### C VDTBH #### [facility] [address] [address] [address] Jersey Butcher Chloride [Moles/Vol] 98 mmol/L Normal 98-107 [facility] Comment on above: Performed By: #### C VDTBH #### [facility] [address] [place] [address] Dr. Jersey Butcher CO2 [Moles/Vol] 35.5 mmol/L Critically high 21.0-32.0 [facility] Comment on above: Performed By: #### C VDTBH #### [facility] [address] [place] [address] Dr. Jersey Butcher Creatinine [Mass/Vol] 0.95 mg/dL Normal 0.70-1.30 [facility] Comment on above: Performed By: #### C VDTBH #### [facility] [address] [place] [address] Dr. Jersey Butcher EGFR-AF [place] ISLANDER >60 Normal >=60 [facility] Comment on above: Performed By: #### C VDTBH #### [facility] [address] [place] [address] Dr. Jersey Butcher EGFR-NON AF [place]ER >60 Normal >=60 [facility] Comment on above: Performed By: #### C VDTBH #### [facility] [address] [place] [address] Dr. Jersey Butcher Glucose [Mass/Vol] 96 mg/dL Normal 74-106 [facility] Comment on above: Performed By: #### C VDTBH #### [facility] [address] [address] [address] Jersey Butcher Potassium [Moles/Vol] 3.3 mmol/L Critically low 3.5-5.1 [facility] Comment on above: Performed By: #### C VDTBH #### [facility] [address] [place] [address] Dr. Jersey Butcher Sodium [Moles/Vol] 137 mmol/L Normal 136-145 [facility] Comment on above: Performed By: #### C VDTBH #### [facility] [address] [place] [address] Dr. Jersey Butcher Urea nitrogen [Mass/Vol] 21.0 mg/dL Critically high 7.0-18.0 [facility] Comment on above: Performed By: #### C VDTBH #### [facility] [address] [place] [address] Dr. Jersey Butcher Urea nitrogen/Creatinine [Mass ratio] 22.1 mg/mg Normal [facility] Comment on above: Performed By: #### C VDTBH #### [facility] [address] [place] [address] Dr. Jersey Butcher TROPONIN, HIGH SENSITIVITYon 05-20-2022 HSTROP 56.7 pg/mL Normal 4.0-76.1 [facility] Comment on above: Result Comment: CUT- OFF POINTS HAVE BEEN ESTABLISHED BASED ON THE FOURTH UNIVERSAL DEFINITIONS OF MYOCARDIAL INFARCTION. THE UPPER REFERENCE LIMIT (URL) OF TROPONIN, DEFINED THE 99TH PERCENTILE OF cTnI DISTRIBUTION IN A REFERENCE POPULATION, HAS BEEN CONFIRMED THE DECISION THRESHOLD FOR [place] DIAGNOSIS. Performed By: #### C VDTBH #### [facility] [address] [place] [address] Dr. Jersey Butcher HSTROP 78.4 pg/mL Critically high 4.0-76.1 [facility] Comment on above: Result Comment: CUT- OFF POINTS HAVE BEEN ESTABLISHED BASED ON THE FOURTH UNIVERSAL DEFINITIONS OF MYOCARDIAL INFARCTION. THE UPPER REFERENCE LIMIT (URL) OF TROPONIN, DEFINED THE 99TH PERCENTILE OF cTnI DISTRIBUTION IN A REFERENCE POPULATION, HAS BEEN CONFIRMED THE DECISION THRESHOLD FOR [place] DIAGNOSIS. Performed By: #### C BCROSIE #### [facility] [address] [place] [address] Dr. Jersey Butcher HSTROP 85.4 pg/mL Critically high 4.0-76.1 [facility] Comment on above: Result Comment: CUT- OFF POINTS HAVE BEEN ESTABLISHED BASED ON THE FOURTH UNIVERSAL DEFINITIONS OF MYOCARDIAL INFARCTION. THE UPPER REFERENCE LIMIT (URL) OF TROPONIN, DEFINED THE 99TH PERCENTILE OF cTnI DISTRIBUTION IN A REFERENCE POPULATION, HAS BEEN CONFIRMED THE DECISION THRESHOLD FOR [place] DIAGNOSIS. Performed By: #### Alhaji BCMAN #### [facility] [address] [place] [address] Dr. Jersey Butcher XR CHEST 1 Von [...] Date: 2022-05-20 00:59 Normal [facility] CBC AUTO DIFFon 02-04-2022 BASO # 0.0 103/ul Normal 0.0-0.1 [facility] Comment on above: Performed By: #### T SH, BNP, HSTROPN, CMP #### [facility] [address] [place] [address] Dr. Jersey Butcher Basophils/100 WBC (Bld) 0.2 % Normal 0.2-2.0 [facility] Comment on above: Performed By: #### T SH, BNP, HSTROPN, CMP #### [facility] [address] [address] [address] Jersey Butcher EO # 0.0 103/ul Normal 0.0-0.7 [facility] Comment on above: Performed By: #### T SH, BNP, HSTROPN, CMP #### [facility] [address] [address] [address] Jersey Butcher Eosinophils/100 WBC (Bld) 0.4 % Critically low 0.9-7.0 [facility] Comment on above: Performed By: #### T SH, BNP, HSTROPN, CMP #### [facility] [address] [address] [address] Jersey Butcher Erythrocyte distribution width (RBC) [Ratio] 12.4 % Normal 11.0-15.0 [facility] Comment on above: Performed By: #### T SH, BNP, HSTROPN, CMP #### [facility] [address] [place] [address] Dr. Jersey Butcher Hematocrit (Bld) [Volume fraction] 41.9 % Critically low 42.0-54.0 [facility] Comment on above: Performed By: #### T SH, BNP, HSTROPN, CMP #### [facility] [address] [place] [address] Dr. Jersey Butcher Hemoglobin (Bld) [Mass/Vol] 14.5 g/dL Normal 14.0-18.0 [facility] Comment on above: Performed By: #### T SH, BNP, HSTROPN, CMP #### [facility] [address] [place] [address] Dr. Jersey Butcher IG # 0.02 10e3/ul Normal 0.00-0.03 [facility] Comment on above: Performed By: #### T SH, BNP, HSTROPN, CMP #### [facility] [address] [place] [address] Dr. Jersey Butcher IG % 0.2 % Normal 0.0-0.5 [facility] Comment on above: Performed By: #### T SH, BNP, HSTROPN, CMP #### [facility] [address] [place] [address] Dr. Jersey Butcher LYMPH # 0.9 103/ul Critically low 1.2-3.8 [facility] Comment on above: Performed By: #### T SH, BNP, HSTROPN, CMP #### [facility] [address] [place] [address] Dr. Jersey Btucher Lymphocytes/100 WBC (Bld) 10.2 % Critically low 20.5-60.0 [facility] Comment on above: Performed By: #### T SH, BNP, HSTROPN, CMP #### [facility] [address] [place] [address] Dr. Jersey Butcher MANUAL DIFF REQ NO Normal [facility] Comment on above: Performed By: #### T SH, BNP, HSTROPN, CMP #### [facility] [address] [place] [address] Dr. Jersey Butcher MCH (RBC) [Entitic mass] 32.3 pg Normal 25.9-34.0 [facility] Comment on above: Performed By: #### T SH, BNP, HSTROPN, CMP #### [facility] [address] [place] [address] Dr. Jersey Butcher MCHC (RBC) [Mass/Vol] 34.6 g/dL Normal 29.9-35.2 [facility] Comment on above: Performed By: #### T SH, BNP, HSTROPN, CMP #### [facility] [address] [place] [address] Dr. Jersey Butcher MCV (RBC) [Entitic vol] 93.3 fL Normal 80.0-94.0 [facility] Comment on above: Performed By: #### T SH, BNP, HSTROPN, CMP #### [facility] [address] [place] [address] Dr. Jersey Butcher MONO # 0.8 103/ul Normal 0.3-0.8 [facility] Comment on above: Performed By: #### T SH, BNP, HSTROPN, CMP #### [facility] [address] [place] [address] Dr. Jersey Butcher Monocytes/100 WBC (Bld) 9.4 % Normal 1.7-12.0 [facility] Comment on above: Performed By: #### T SH, BNP, HSTROPN, CMP #### [facility] [address] [place] [address] Dr. Jersey Butcher NEUT # 6.6 103/ul Critically high 1.4-6.5 [facility] Comment on above: Performed By: #### T SH, BNP, HSTROPN, CMP #### [facility] [address] [place] [address] Dr. Jersey Butcher Neutrophils/100 WBC (Bld) 79.6 % Critically high 43.0-75.0 [facility] Comment on above: Performed By: #### T SH, BNP, HSTROPN, CMP #### [facility] [address] [place] [address] Dr. Jersey Butcher Platelet mean volume (Bld) [Entitic vol] 10.1 fL Normal 9.5-13.5 [facility] Comment on above: Performed By: #### T SH, BNP, HSTROPN, CMP #### [facility] [address] [place] [address] Dr. Jersey Butcher PLT 227 103/ul Normal 150-450 [facility] Comment on above: Performed By: #### T SH, BNP, HSTROPN, CMP #### [facility] [address] [address] [address] Jersey Butcher RBC 4.49 106/ul Critically low 4.70-6.10 [facility] Comment on above: Performed By: #### T SH, BNP, HSTROPN, CMP #### [facility] [address] [place] [address] Dr. Jersey Butcher WBC 8.3 103/ul Normal 4.0-11.0 [facility] Comment on above: Performed By: #### T SH, BNP, HSTROPN, CMP #### [facility] [address] [place] [address] Dr. Jersey Butcher Covid-19 PCR (CVDTB)on 01-17 SARS-CoV-2 (COVID-19) RNA PILI+probe Ql (Unsp spec) Detected Critically abnormal NOT DETECTED [facility] Comment on above: Result Comment: This test is not yet approved or cleared by the [place] FDA. When there are no FDA-approved or cleared tests available, and other criteria are met, FDA can make tests available under an emergency access mechanism called an Emergency Use Authorization (EUA). The EUA for this test is supported by the [place] of [employer] and Human Service's declaration that [...] longer be used). Performed By: #### C VDTBH #### [facility] [address] [place] [address] Dr. Jersey Butcher INFLUENZA A AND B AGon 02-04 INFLUENZA A AG Negative Normal NEGATIVE SEE COMMENT [facility] Comment on above: Performed By: #### C MADDIE #### [facility] [address] [place] [address] Dr. Jersey Butcher INFLUENZA B AG Negative Normal NEGATIVE SEE COMMENT [facility] Comment on above: Performed By: #### C MADDIE #### [facility] [address] [place] [address] Dr. Jersey Butcher INTERNAL CONTROLS Within Normal Limits Normal Wi thin Normal Limits [facility] Comment on above: Performed By: #### C MADDIE #### [facility] [address] [place] [address] Dr. Jersey Butcher PROF CHEM 8 (BAS METB)on Anion gap [Moles/Vol] 5.9 mmol/L Normal [facility] Comment on above: Performed By: #### T SH, BNP, HSTROPN, CMP #### [facility] [address] [place] [address] Dr. Jersey Butcher Calcium [Mass/Vol] 8.5 mg/dL Normal 8.5-10.1 [facility] Comment on above: Performed By: #### T SH, BNP, HSTROPN, CMP #### [facility] [address] [place] [address] Dr. Jersey Butcher Chloride [Moles/Vol] 96 mmol/L Critically low 98-107 [facility] Comment on above: Performed By: #### T SH, BNP, HSTROPN, CMP #### [facility] [address] [place] [address] Dr. Jersey Butcher CO2 [Moles/Vol] 33.4 mmol/L Critically high 21.0-32.0 [facility] Comment on above: Performed By: #### T SH, BNP, HSTROPN, CMP #### [facility] [address] [place] [address] Dr. Jersey Butcher Creatinine [Mass/Vol] 1.17 mg/dL Normal 0.70-1.30 [facility] Comment on above: Performed By: #### T SH, BNP, HSTROPN, CMP #### [facility] [address] [address] [address] Jersey Butcher EGFR-AF [place]ER >60 Normal >=60 [facility] Comment on above: Performed By: #### T SH, BNP, HSTROPN, CMP #### [facility] [address] [address] [address] Jersey Butcher EGFR-NON AF [place]ER >60 Normal >=60 [facility] Comment on above: Performed By: #### T SH, BNP, HSTROPN, CMP #### [facility] [address] [address] [address] Jersey Butcher Glucose [Mass/Vol] 141 mg/dL Critically high 74-106 [facility] Comment on above: Performed By: #### T SH, BNP, HSTROPN, CMP #### [facility] [address] [place] [address] Dr. Jersey Butcher Potassium [Moles/Vol] 3.3 mmol/L Critically low 3.5-5.1 [facility] Comment on above: Performed By: #### T SH, BNP, HSTROPN, CMP #### [facility] [address] [place] [address] Dr. Jersey Butcher Sodium [Moles/Vol] 132 mmol/L Critically low 136-145 [facility] Comment on above: Performed By: #### T SH, BNP, HSTROPN, CMP #### [facility] [address] [address] [address] Jersey Butcher Urea nitrogen [Mass/Vol] 15.0 mg/dL Normal 7.0-18.0 [facility] Comment on above: Performed By: #### T SH, BNP, HSTROPN, CMP #### [facility] [address] [place] [address] Dr. Jersey Butcher Urea nitrogen/Creatinine [Mass ratio] 12.8 mg/mg Normal [facility] Comment on above: Performed By: #### T SH, BNP, HSTROPN, CMP #### [facility] [address] [id number] Jersey Butcher XR CHEST 1 Von [...] by: Nery MCKEON Date: 2022-02-04 01:58 Normal [facility] XR CSPINE 2_3 VIEWSon 2021 XR [...] Date: 2022-01-26 15:50 Normal [facility] Office Visit (Cardiology)on 01-12-2022 Follow-up visit Diagnoses/Problems Assessed Coronary artery disease without angina pectoris (414.00) (I25.10) Normal echocardiogram (V72.85) Hypertension (401.9) (I10) Hyperlipidemia (272.4) (E78.5) Sleep apnea (780.57) (G47.30) Morbid obesity with BMI of 50.0-59.9, adult (278.01,V85.43) (E66.01,Z68.43) Orders Morbid obesity with BMI of 50.0-59.9, adult Healthy Weight Tips; Status:Complete; Done: [id number] SocHx: Former smoker Tobacco Use Screening; Status:Complete; Done: [id number] Patient Instructions Please bring all medicines, vitamins, [...] I am getting weight loss surgery ELYSE DUONG is being seen for pre-operative clearance. Last evaluated in clinic Dr. Christian Mar 2021. Since that time had uneventful meniscal repair with MACE. Patient presents to [facility] to obtain cardiac risk stratification prior to a weight loss surgery (no details of procedure needed) Surgeon: unknown Planned date: none to date Prior cardiovascular history: 1. 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 Intermediate clinical markers -History of ischemic heart disease (prior FL, current chest pain secondary to ischemia, use [...] NO MED LIST OR BOTTLES BROUGHT TO , MEDS UPDATED VERBALLY Allergies NoKnown No Known Allergies Updated By: Olga Oshea; 01/12/2022 2:40:51 PM Social Hist (more content not included)... Normal [employer] Tobacco Screening.on 022 Adult depression screening assessment No [facility] [employer] DO Work Phone: Tobacco use status [facility] b) No [facility] Work Phone: CBC AUTO DIFFon 01-11-2022 BASO # 0.0 103/ul Normal 0.0-0.1 [facility] Comment on above: Performed By: #### T SH, BNP, HSTROPN, CMP #### [facility] [address] [place] [address] Dr. Jersey Butcher Basophils/100 WBC (Bld) 0.4 % Normal 0.2-2.0 [facility] Comment on above: Performed By: #### T SH, BNP, HSTROPN, CMP #### [facility] [address] [place] [address] Dr. Jersey Butcher EO # 0.1 103/ul Normal 0.0-0.7 [facility] Comment on above: Performed By: #### T SH, BNP, HSTROPN, CMP #### [facility] [address] [place] [address] Dr. Jersey Butcher Eosinophils/100 WBC (Bld) 1.6 % Normal 0.9-7.0 [facility] Comment on above: Performed By: #### T SH, BNP, HSTROPN, CMP #### [facility] [address] [place] [address] Dr. Jersey Butcher Erythrocyte distribution width (RBC) [Ratio] 12.3 % Normal 11.0-15.0 [facility] Comment on above: Performed By: #### T SH, BNP, HSTROPN, CMP #### [facility] [address] [place] [address] Dr. Jersey Butcher Hematocrit (Bld) [Volume fraction] 46.4 % Normal 42.0-54.0 [facility] Comment on above: Performed By: #### T SH, BNP, HSTROPN, CMP #### [facility] [address] [place] [address] Dr. Jersey Butcher Hemoglobin (Bld) [Mass/Vol] 15.8 g/dL Normal 14.0-18.0 [facility] Comment on above: Performed By: #### T SH, BNP, HSTROPN, CMP #### [facility] [address] [place] [address] Dr. Jersey Butcher IG # 0.02 10e3/ul Normal 0.00-0.03 [facility] Comment on above: Performed By: #### T SH, BNP, HSTROPN, CMP #### [facility] [address] [place] [address] Dr. Jersey Butcher IG % 0.3 % Normal 0.0-0.5 [facility] Comment on above: Performed By: #### T SH, BNP, HSTROPN, CMP #### [facility] [address] [place] [address] Dr. Jersey Butcher LYMPH # 1.5 103/ul Normal 1.2-3.8 [facility] Comment on above: Performed By: #### T SH, BNP, HSTROPN, CMP #### [facility] [address] [place] [address] Dr. Jersey Butcher Lymphocytes/100 WBC (Bld) 21.7 % Normal 20.5-60.0 [facility] Comment on above: Performed By: #### T SH, BNP, HSTROPN, CMP #### [facility] [address] [place] [address] Dr. Jersey Butcher MANUAL DIFF REQ NO Normal [facility] Comment on above: Performed By: #### T SH, BNP, HSTROPN, CMP #### [facility] [address] [place] [address] Dr. Jersey Butcher MCH (RBC) [Entitic mass] 31.5 pg Normal 25.9-34.0 [facility] Comment on above: Performed By: #### T SH, BNP, HSTROPN, CMP #### [facility] [address] [place] [address] Dr. Jersey Butcher MCHC (RBC) [Mass/Vol] 34.1 g/dL Normal 29.9-35.2 [facility] Comment on above: Performed By: #### T SH, BNP, HSTROPN, CMP #### [facility] [address] [place] [address] Dr. Jersey Butcher MCV (RBC) [Entitic vol] 92.6 fL Normal 80.0-94.0 [facility] Comment on above: Performed By: #### T SH, BNP, HSTROPN, CMP #### [facility] [address] [place] [address] Dr. Jersey Btucher MONO # 0.7 103/ul Normal 0.3-0.8 [facility] Comment on above: Performed By: #### T SH, BNP, HSTROPN, CMP #### [facility] [address] [address] [address] Jersey Butcher Monocytes/100 WBC (Bld) 9.7 % Normal 1.7-12.0 [facility] Comment on above: Performed By: #### T SH, BNP, HSTROPN, CMP #### [facility] [address] [place] [address] Dr. Jersey Butcher NEUT # 4.6 103/ul Normal 1.4-6.5 [facility] Comment on above: Performed By: #### T SH, BNP, HSTROPN, CMP #### [facility] [address] [place] [address] Dr. Jersey Butcher Neutrophils/100 WBC (Bld) 66.3 % Normal 43.0-75.0 [facility] Comment on above: Performed By: #### T SH, BNP, HSTROPN, CMP #### [facility] [address] [place] [address] Dr. Jersey Butcher Platelet mean volume (Bld) [Entitic vol] 9.6 fL Normal 9.5-13.5 [facility] Comment on above: Performed By: #### T SH, BNP, HSTROPN, CMP #### [facility] [address] [place] [address] Dr. Jersey Butcher PLT 270 103/ul Normal 150-450 [facility] Comment on above: Performed By: #### T SH, BNP, HSTROPN, CMP #### [facility] [address] [place] [address] Dr. Jersey Butcher RBC 5.01 106/ul Normal 4.70-6.10 [facility] Comment on above: Performed By: #### T SH, BNP, HSTROPN, CMP #### [facility] [address] [place] [address] Dr. Jersey Butcher WBC 6.9 103/ul Normal 4.0-11.0 [facility] Comment on above: Performed By: #### T SH, BNP, HSTROPN, CMP #### [facility] [address] [place] [address] Dr. Jersey Butcher GLYCOHEMOGLOBIN A1Con 2021 ADA RECOMMENDATION SEE BELOW Normal [facility] Comment on above: Result Comment: ADA RECOMMENDED LIMIT 4.0 - 6.0 ADA THERAPEUTIC TARGET < 7.0 ACTION SUGGESTED > 7.0 Performed By: #### T SH, BNP, HSTROPN, CMP #### [facility] [address] [address] [address] Jersey Butcher Glucose [Mass/Vol] 117 mg/dL Normal [facility] Comment on above: Performed By: #### T SH, BNP, HSTROPN, CMP #### [facility] [address] [place] [address] Dr. Jersey Butcher HbA1c (Bld) [Mass fraction] 5.7 % Normal 4.5-6.2 [facility] Comment on above: Performed By: #### T SH, BNP, HSTROPN, CMP #### [facility] [address] [address] [address] Jersey Butcher LIPID PROFILEon 01-11-2022 CHOL-HDL RATIO NORM SEE BELOW Normal [facility] Comment on above: Result Comment: 3.3 - 4.4 LOW RISK 4.4 - 7.1 AVERAGE RISK 7.1 - 11.0 MODERATE RISK >11.0 HIGH RISK Performed By: #### C MADDIE #### [facility] [address] [place] [address] Dr. Jersey Butcher Cholesterol [Mass/Vol] 133 mg/dL Normal <=200 [facility] Comment on above: Performed By: #### C MADDIE #### [facility] [address] [place] [address] Dr. Jersey Butcher Cholesterol in HDL [Mass/Vol] 54 mg/dL Normal 40-60 [facility] Comment on above: Performed By: #### C MADDIE #### [facility] [address] [place] [address] Dr. Jersey Butcher Cholesterol in LDL [Mass/Vol] 52.0 mg/dL Normal [facility] Comment on above: Performed By: #### C MADDIE #### [facility] [address] [address] [address] Jersey Butcher Cholesterol.total/C holesterol in HDL [Mass ratio] 2.5 {ratio} Normal [facility] Comment on above: Performed By: #### C MADDIE #### [facility] [address] [address] [address] Jersey Butcher HDL NORMAL > or = 60 mg/dl - LO W CARDIOVASCULAR RISK <40 mg/dl - HIGH CARDIOVASCULAR RISK Normal [facility] Comment on above: Performed By: #### C MADDIE #### [facility] [address] [address] [address] Jersey Butcher LDL CALC NORMAL SEE BELOW Normal [facility] Comment on above: Result Comment: <100 mg/dl OPTIMAL 100 - 129 mg/dl NEAR OR ABOVE OPTIMAL 130 - 159 mg/dl BORDERLINE HIGH 160 - 189 mg/dl HIGH >190 mg/dl VERY HIGH Performed By: #### C MADDIE #### [facility] [address] [address] [address] Jersey Butcher Triglyceride [Mass/Vol] 135 mg/dL Normal <=150 [facility] Comment on above: Performed By: #### C MADDIE #### [facility] [address] [place] [address] Dr. Jersey Butcher VLDL CALC 27.0 mg/dL Normal [facility] Comment on above: Performed By: #### C MADDIE #### [facility] [address] [address] [address] Jersey Butcher PROF 14(COMP METB)on 022 Albumin [Mass/Vol] 3.5 g/dL Normal 3.4-5.0 [facility] Comment on above: Performed By: #### C MADDIE #### [facility] [address] [place] [address] Dr. Jersey Butcher Albumin/Globulin [Mass ratio] 1.0 {ratio} Normal [facility] Comment on above: Performed By: #### C BCROSIE #### [facility] [address] [address] [address] Jersey Butcher ALP [Catalytic activity/Vol] 114 U/L Normal 46-116 [facility] Comment on above: Performed By: #### C BCROSIE #### [facility] [address] [address] [address] Jersey Butcher ALT [Catalytic activity/Vol] 64 U/L Critically high 16-63 [facility] Comment on above: Performed By: #### C BCROSIE #### [facility] [address] [address] [address] Jersey Butcher Anion gap [Moles/Vol] 9.1 mmol/L Normal [facility] Comment on above: Performed By: #### C MADDIE #### [facility] [address] [place] [address] Dr. Jersey Butcher AST [Catalytic activity/Vol] 81 U/L Critically high 15-37 [facility] Comment on above: Performed By: #### C MADDIE #### [facility] [address] [place] [address] Dr. Jersey Butcher Bilirubin [Mass/Vol] 0.9 mg/dL Normal 0.2-1.0 [facility] Comment on above: Performed By: #### C MADDIE #### [facility] [address] [place] [address] Dr. Jersey Butcher Calcium [Mass/Vol] 9.0 mg/dL Normal 8.5-10.1 [facility] Comment on above: Performed By: #### C BCROSIE #### [facility] [address] [address] [address] Jersey Butcher Chloride [Moles/Vol] 99 mmol/L Normal 98-107 [facility] Comment on above: Performed By: #### C BCROSIE #### [facility] [address] [address] [address] Jersey Butcher CO2 [Moles/Vol] 34.9 mmol/L Critically high 21.0-32.0 [facility] Comment on above: Performed By: #### C MADDIE #### [facility] [address] [address] [address] Jersey Btucher Creatinine [Mass/Vol] 1.04 mg/dL Normal 0.70-1.30 [facility] Comment on above: Performed By: #### C MADDIE #### [facility] [address] [address] [address] Jersey Butcher EGFR-AF [place]ER >60 Normal >=60 [facility] Comment on above: Performed By: #### C MADDIE #### [facility] Laboratory [address] [address] [address] Jersey Butcher EGFR-NON AF PITCAIRN ISLANDER >60 Normal >=60 [facility] Comment on above: Performed By: #### C MADDIE #### [facility] Laboratory [address] [place] [address] Dr. Jersey Butcher Globulin (S) [Mass/Vol] 3.5 g/dL Normal [facility] Comment on above: Performed By: #### C MADDIE #### [facility] Laboratory [address] [place] [address] Dr. Jersey Butcher Glucose [Mass/Vol] 101 mg/dL Normal 74-106 [facility] Comment on above: Performed By: #### C MADDIE #### [facility] Laboratory [address] [place] [address] Dr. Jersey Butcher Potassium [Moles/Vol] 4.0 mmol/L Normal 3.5-5.1 [facility] Comment on above: Performed By: #### C MADDIE #### [facility] Laboratory [address] [address] [address] Jersey Butcher Protein [Mass/Vol] 7.0 g/dL Normal 6.4-8.2 [facility] Comment on above: Performed By: #### C BCROSIE #### [facility] Laboratory [address] [address] [address] Jersey Butcher Sodium [Moles/Vol] 139 mmol/L Normal 136-145 [facility] Comment on above: Performed By: #### C MADDIE #### [facility] Laboratory [address] [place] [address] Dr. Jersey Butcher Urea nitrogen [Mass/Vol] 17.0 mg/dL Normal 7.0-18.0 [facility] Comment on above: Performed By: #### C MADDIE #### [facility] Laboratory [address] [address] [address] Jersey Butcher Urea nitrogen/Creatinine [Mass ratio] 16.3 mg/mg Normal [facility] Comment on above: Performed By: #### C MADDIE #### [facility] Laboratory [address] [address] LSPINE WO CONon [...] Date: 2021-12-10 22:56 Normal [facility] CBC AUTO DIFFon 11-07-2021 BASO # 0.0 103/ul Normal 0.0-0.1 [facility] Comment on above: Performed By: #### T SH, BNP, HSTROPN, CMP #### [facility] Laboratory [address] [address] [address] Jersey Butcher Basophils/100 WBC (Bld) 0.4 % Normal 0.2-2.0 [facility] Comment on above: Performed By: #### T SH, BNP, HSTROPN, CMP #### [facility] Laboratory [address] [place] [address] Dr. Jersey Butcher EO # 0.1 103/ul Normal 0.0-0.7 [facility] Comment on above: Performed By: #### T SH, BNP, HSTROPN, CMP #### [facility] Laboratory [address] [place] [address] Dr. Jersey Butcher Eosinophils/100 WBC (Bld) 1.1 % Normal 0.9-7.0 [facility] Comment on above: Performed By: #### T SH, BNP, HSTROPN, CMP #### [facility] Laboratory [address] [place] [address] Dr. Jersey Butcher Erythrocyte distribution width (RBC) [Ratio] 12.3 % Normal 11.0-15.0 [facility] Comment on above: Performed By: #### T SH, BNP, HSTROPN, CMP #### [facility] Laboratory [address] [place] [address] Dr. Jersey Butcher Hematocrit (Bld) [Volume fraction] 44.9 % Normal 42.0-54.0 [facility] Comment on above: Performed By: #### T SH, BNP, HSTROPN, CMP #### [facility] Laboratory [address] [place] [address] Dr. Jersey Butcher Hemoglobin (Bld) [Mass/Vol] 15.2 g/dL Normal 14.0-18.0 [facility] Comment on above: Performed By: #### T SH, BNP, HSTROPN, CMP #### [facility] Laboratory [address] [place] [address] Dr. Jersey Butcher IG # 0.02 10e3/ul Normal 0.00-0.03 [facility] Comment on above: Performed By: #### T SH, BNP, HSTROPN, CMP #### [facility] Laboratory [address] [place] [address] Dr. Jersey Butcher IG % 0.2 % Normal 0.0-0.5 [facility] Comment on above: Performed By: #### T SH, BNP, HSTROPN, CMP #### [facility] Laboratory [address] [place] [address] Dr. Jersey Butcher LYMPH # 1.8 103/ul Normal 1.2-3.8 [facility] Comment on above: Performed By: #### T SH, BNP, HSTROPN, CMP #### [facility] Laboratory [address] [place] [address] Dr. Jersey Butcher Lymphocytes/100 WBC (Bld) 22.5 % Normal 20.5-60.0 [facility] Comment on above: Performed By: #### T SH, BNP, HSTROPN, CMP #### [facility] Laboratory [address] [place] [address] Dr. Jersey Butcher MANUAL DIFF REQ NO Normal [facility] Comment on above: Performed By: #### T SH, BNP, HSTROPN, CMP #### [facility] Laboratory [address] [place] [address] Dr. Jersey Butcher MCH (RBC) [Entitic mass] 31.6 pg Normal 25.9-34.0 [facility] Comment on above: Performed By: #### T SH, BNP, HSTROPN, CMP #### [facility] Laboratory [address] [place] [address] Dr. Jersey Butcher MCHC (RBC) [Mass/Vol] 33.9 g/dL Normal 29.9-35.2 [facility] Comment on above: Performed By: #### T SH, BNP, HSTROPN, CMP #### [facility] Laboratory [address] [place] [address] Dr. Jersey Butcher MCV (RBC) [Entitic vol] 93.3 fL Normal 80.0-94.0 [facility] Comment on above: Performed By: #### T SH, BNP, HSTROPN, CMP #### [facility] [address] [place] [address] Dr. Jersey Butcher MONO # 0.9 103/ul Critically high 0.3-0.8 [facility] Comment on above: Performed By: #### T SH, BNP, HSTROPN, CMP #### [facility] Laboratory [address] [place] [address] Dr. Jersey Butcher Monocytes/100 WBC (Bld) 11.1 % Normal 1.7-12.0 [facility] Comment on above: Performed By: #### T SH, BNP, HSTROPN, CMP #### [facility] Laboratory [address] [place] [address] Dr. Jersey Butcher NEUT # 5.2 103/ul Normal 1.4-6.5 [facility] Comment on above: Performed By: #### T SH, BNP, HSTROPN, CMP #### [facility] Laboratory [address] [place] [address] Dr. Jersey Butcher Neutrophils/100 WBC (Bld) 64.7 % Normal 43.0-75.0 [facility] Comment on above: Performed By: #### T SH, BNP, HSTROPN, CMP #### [facility] [address] [place] [address] Dr. Jersey Butcher Platelet mean volume (Bld) [Entitic vol] 10.1 fL Normal 9.5-13.5 [facility] Comment on above: Performed By: #### T SH, BNP, HSTROPN, CMP #### [facility] [address] [place] [address] Dr. Jersey Butcher PLT 265 103/ul Normal 150-450 [facility] Comment on above: Performed By: #### T SH, BNP, HSTROPN, CMP #### [facility] [address] [place] [address] Dr. Jersey Butcher RBC 4.81 106/ul Normal 4.70-6.10 [facility] Comment on above: Performed By: #### T SH, BNP, HSTROPN, CMP #### [facility] [address] [place] [address] Dr. Jersey Butcher WBC 8.1 103/ul Normal 4.0-11.0 [facility] Comment on above: Performed By: #### T SH, BNP, HSTROPN, CMP #### [facility] [address] [place] [address] CHEST WO CONon [...] Date: 2021-11-06 23:56 Normal [facility] PROF 14(COMP METB)on 022 Albumin [Mass/Vol] 3.5 g/dL Normal 3.4-5.0 [facility] Comment on above: Performed By: #### C [facility] #### [facility] [address] [address] [address] Jersey Butcher Albumin/Globulin [Mass ratio] 1.0 {ratio} Normal [facility] Comment on above: Performed By: #### C VDTBH #### [facility] Laboratory [address] [address] [address] Jersey Butcher ALP [Catalytic activity/Vol] 117 U/L Critically high 46-116 [facility] Comment on above: Performed By: #### C VDTBH #### [facility] [address] [address] [address] Jersey Bucther ALT [Catalytic activity/Vol] 39 U/L Normal 16-63 [facility] Comment on above: Performed By: #### C VDTBH #### [facility] Laboratory [address] [place] [address] Dr. Jersey Butcher Anion gap [Moles/Vol] 9.3 mmol/L Normal [facility] Comment on above: Performed By: #### C VDTBH #### [facility] [address] [place] [address] Dr. Jersey Butcher AST [Catalytic activity/Vol] 20 U/L Normal 15-37 [facility] Comment on above: Performed By: #### C VDTBH #### [facility] [address] [place] [address] Dr. Jersey Butcher Bilirubin [Mass/Vol] 0.4 mg/dL Normal 0.2-1.0 [facility] Comment on above: Performed By: #### C VDTBH #### [facility] [address] [address] [address] Jersey Butcher Calcium [Mass/Vol] 9.1 mg/dL Normal 8.5-10.1 [facility] Comment on above: Performed By: #### C VDTBH #### [facility] [address] [place] [address] Dr. Jersey Butcher Chloride [Moles/Vol] 99 mmol/L Normal 98-107 [facility] Comment on above: Performed By: #### C VDTBH #### [facility] [address] [place] [address] Dr. Jersey Butcher CO2 [Moles/Vol] 33.2 mmol/L Critically high 21.0-32.0 [facility] Comment on above: Performed By: #### C VDTBH #### [facility] [address] [place] [address] Dr. Jersey Butcher Creatinine [Mass/Vol] 1.21 mg/dL Normal 0.70-1.30 [facility] Comment on above: Performed By: #### C VDTBH #### [facility] [address] [place] [address] Dr. Jersey Butcher EGFR-AF [place]CA[place]N ISLANDER >60 Normal >=60 [facility] Comment on above: Performed By: #### C VDTBH #### [facility] [address] [place] [address] Dr. Jersey Butcher EGFR-NON AF [place] ISLANDER >60 Normal >=60 [facility] Comment on above: Performed By: #### C VDTBH #### [facility] [address] [place] [address] Dr. Jersey Butcher Globulin (S) [Mass/Vol] 3.5 g/dL Normal [facility] Comment on above: Performed By: #### C VDTBH #### [facility] [address] [place] [address] Dr. Jersey Butcher Glucose [Mass/Vol] 102 mg/dL Normal 74-106 [facility] Comment on above: Performed By: #### C VDTBH #### [facility] [address] [place] [address] Dr. Jersey Butcher Potassium [Moles/Vol] 3.5 mmol/L Normal 3.5-5.1 [facility] Comment on above: Performed By: #### C VDTBH #### [facility] [address] [place] [address] Dr. Jersey Butcher Protein [Mass/Vol] 7.0 g/dL Normal 6.4-8.2 [facility] Comment on above: Performed By: #### C VDTBH #### [facility] [address] [place] [address] Dr. Jersey Butcher Sodium [Moles/Vol] 138 mmol/L Normal 136-145 [facility] Comment on above: Performed By: #### C VDTBH #### [facility] Laboratory [id number] Jersey Butcher Urea nitrogen [Mass/Vol] 19.0 mg/dL Critically high 7.0-18.0 [facility] Comment on above: Performed By: #### C VDTBH #### [facility] Laboratory [address] [place], [place] [address] Dr. Jersey Butcher Urea nitrogen/Creatinine [Mass ratio] 15.7 mg/mg Normal [facility] Comment on above: Performed By: #### C VDTBH #### [facility] Laboratory [id number] Jersey Butcher XR CHEST 1 Von [...] MARCO ANTONIO FRIEDMAN Date: 2021-11-06 22:36 Normal [facility] IO EKG Electrocardiogram- 12 Leadon 04-11-2021 IO EKG Electrocardiogram- 12 Lead See Scanned Document [facility] [employer] 600 DO Work Phone: Tobacco Screening.on 021 Fall risk assessment a) No falls within the last year [facility] [employer] 600 DO Work Phone: Tobacco use status CPHS b) No [facility] 600 DO Work Phone: Vital Signs Date Time Vital Sign Value Performing Clinician Facility 07-19-2023 09:48-0500 Body height 172.7 cm Eusebia Terrell SYNOPTIC METEOROLOGIST Work Phone: [facility] 07-19-2023 09:48-0500 Body mass index (BMI) [Ratio] 56.2 kg/m2 Eusebia Shahz SYNOPTIC METEOROLOGIST Work Phone: [facility] 07-19-2023 09:48-0500 Body temperature 97.5 [degF] Eusebia Shahz SYNOPTIC METEOROLOGIST Work Phone: [facility] 07-19-2023 09:48-0500 Body weight 167.65 kg Eusebia Shahz SYNOPTIC METEOROLOGIST Work Phone: [facility] 07-19-2023 09:48-0500 Diastolic blood pressure 88 mm[Hg] Eusebia Lawholz SYNOPTIC METEOROLOGIST Work Phone: [facility] 07-19-2023 09:48-0500 Heart rate 95 /min Eusebia Shahz SYNOPTIC METEOROLOGIST Work Phone: [facility] 07-19-2023 09:48-0500 Respiratory rate 24 /min Eusebiakelley Lawmaeganz SYNOPTIC METEOROLOGIST Work Phone: [facility] 07-19-2023 09:48-0500 SaO2% (BldA) [Mass fraction] 95 % Eusebiakelley Shahz SYNOPTIC METEOROLOGIST Work Phone: [facility] 07-19-2023 09:48-0500 Systolic blood pressure 130 mm[Hg] Eusebia Shahz SYNOPTIC METEOROLOGIST Work Phone: [facility] 04-13-2023 12:07-0400 Body height 172.7 cm Justyn Mondragon MD Work Phone: [facility] 04-13-2023 12:07-0400 Body mass index (BMI) [Ratio] 54.74 kg/m2 Justyn Mondragon MD Work Phone: [facility] 04-13-2023 12:07-0400 Body weight 163.29 kg Justyn Mondragon MD Work Phone: [facility] 04-13-2023 12:07-0400 Diastolic blood pressure 80 mm[Hg] Justyn Mondragon MD Work Phone: [facility] 04-13-2023 12:07-0400 Systolic blood pressure 134 mm[Hg] Justyn Mondragon MD Work Phone: [facility] 10-02-2022 11:00-0400 52 1 Eusebia Rondon Socorrohholz Work Phone: [facility] 305 DO Work Phone: Comment on above: [id number] 07-19-2022 10:33-0500 Body height 173.99 cm Eusebia Rondon Aichholz Work Phone: [facility] 305 DO Work Phone: 07-19-2022 10:33-0500 Body mass index (BMI) [Ratio] 50.68 kg/m2 Eusebia Nela Aichholz Work Phone: [facility] 305 DO Work Phone: 07-19-2022 10:33-0500 Body surface area Derived from formula 2.57 m2 Eusebia Nela Aichholz Work Phone: [facility] 305 DO Work Phone: 07-19-2022 10:33-0500 Body weight 153.41 kg Eusebia Rondon Socorrohholz Work Phone: [facility] 305 DO Work Phone: 07-19-2022 10:33-0500 Diastolic blood pressure 82 mm[Hg] Eusebia Nela Aichholz Work Phone: [facility] 305 DO Work Phone: 07-19-2022 10:33-0500 Heart rate 64 /min Eusebia Nela Aichholz Work Phone: [facility] 305 DO Work Phone: 07-19-2022 10:33-0500 Systolic blood pressure 132 mm[Hg] Eusebia Nela Aichholz Work Phone: [facility] 305 DO Work Phone: 01-12-2022 14:42-0400 Body height 172.72 cm Eusebia Rondon Aichholz Work Phone: [facility] 600 DO Work Phone: 01-12-2022 14:42-0400 Body mass index (BMI) [Ratio] 51.7 kg/m2 Eusebia Rondon Aichholz Work Phone: [facility] 600 DO Work Phone: 01-12-2022 14:42-0400 Body surface area Derived from formula 2.56 m2 Eusebia Rondon Aichholz Work Phone: [facility] 600 DO Work Phone: 01-12-2022 14:42-0400 Body weight 154.22 kg Eusebia Rondon Aichholz Work Phone: [facility] 600 DO Work Phone: 01-12-2022 14:42-0400 Diastolic blood pressure 80 mm[Hg] Eusebia Rondon Aichholz Work Phone: [facility] 600 DO Work Phone: 01-12-2022 14:42-0400 Heart rate 66 /min Eusebia Rondon Aichholz Work Phone: [facility] 600 DO Work Phone: 01-12-2022 14:42-0400 Systolic blood pressure 136 mm[Hg] Eusebia Rondon Aichholz Work Phone: [facility] 600 DO Work Phone: 04-11-2021 12:45-0400 Body height 172.72 cm Eusebia Rondon Aichholz Work Phone: [facility] [employer] 600 DO Work Phone: 04-11-2021 12:45-0400 Body mass index (BMI) [Ratio] 53.52 kg/m2 Eusebia Terrell Work Phone: [facility] 600 DO Work Phone: 04-11-2021 12:45-0400 Body surface area Derived from formula 2.6 m2 Eusebia Rondon Socorrofernandoholayden Work Phone: [facility] 600 DO Work Phone: 04-11-2021 12:45-0400 Body weight 159.67 kg Eusebia Rondon Socorrofernandogallo Work Phone: [facility] [employer] 600 DO Work Phone: 04-11-2021 12:45-0400 Diastolic blood pressure 78 mm[Hg] Eusebia Terrell Work Phone: [facility] [employer] 600 DO Work Phone: 04-11-2021 12:45-0400 Heart rate 74 /min Eusebia Terrell Work Phone: [facility] [employer] 600 DO Work Phone: 04-11-2021 12:45-0400 Systolic blood pressure 124 mm[Hg] Eusebia Rondon Socorrofernandogallo Work Phone: [facility] [employer] 600 DO Work Phone: Encounters Encounter Date Encounter Type Care Provider Facility Start: 07-30-2023 Refill Eusebia Terrell SYNOPTIC METEOROLOGIST Work Phone: [facility] Comment on above: Pulmonary emphysema, unspecified emphysema type (CMS/HCC) (Primary Dx) Start: 07-26-2023 End: 07-26-2023 [facility] Start: 07-19-2023 End: 07-19-2023 ambulatory EUSEBIA XANDER Not Available Start: 07-19-2023 End: 07-19-2023 Office outpatient visit 25 minutes Eusebia Terrell NP Work Phone: [facility] Comment on above: Screening for prosta te cancer (Primary Dx); Mixed hyperlipidemia (CMS/HCC); Primary hypertension (CMS/HCC); Pre-diabetes; Morbid obesity with BMI of 50.0-59.9, adult (CMS/HCC); Hypoxia; Pulmonary emphysema, unspecified emphysema type (CMS/HCC); Bilateral lower extremity edema; CATERINA (obstructive sleep apnea); Venous insufficiency of both lower extremities; Atrial fibrillation, unspecified type (CMS/HCC) Start: 06-28-2023 End: 06-28-2023 ambulatory EUSEBIA XANDER Not Available Start: 06-12-2023 End: 06-12-2023 ambulatory EUSEBIA TERRELL Not Available Start: 06-06-2023 End: 06-06-2023 ambulatory EUSEBIA XANDER Not Available Start: 05-18-2023 End: 06-18-2023 ambulatory [facility] Start: 04-13-2023 End: 04-13-2023 [facility] Start: 04-13-2023 End: 04-13-2023 Office outpatient visit 25 minutes Justyn Mondragon MD Work Phone: [facility] Comment on above: CAD S/P percutaneous coronary angioplasty; Paroxysmal atrial fibrillation (CMS/HCC); [place] (myocardial infarction); Mixed hyperlipidemia; Primary hypertension; Obstructive sleep apnea syndrome; Morbid obesity with BMI of 50.0-59.9, adult (CMS/HCC); Former smoker; Status post ablation of incompetent vein using laser Start: 10-26-2022 End: 10-26-2022 ambulatory NATALIA TERRELL Facility: Start: 10-05-2022 Chart Update Eusebia menendez Work Phone: [facility] 305 DO Work Phone: Start: 10-03-2022 Chart Update Eusebia menendez Work Phone: [facility] 305 DO Work Phone: Start: 10-03-[address] Eusebia Rondon Xadner Dayne acility:[id number] Start: 10-02-2022 [address] Mrs[address] Eusebia Rondon Xander Dayne acility:[id number] Start: 09-15-2022 Telephone encounter Eusebia Rondon chholz Work Phone: [facility] 305 DO Work Phone: Start: 09-15-2022 End: 09-16-[address] DOCTOR HERNANDEZ Facility:[facility]1 Start: 08-27-2022 End: 08-27-2022 ambulatory TED DE LUNA . Facility:[facility]1 Start: 08-25-2022 Telephone encounter Eusebia Nela Serna chholz Work Phone: [facility] 305 DO Work Phone: Start: 08-24-2022 End: 08-25-[address] KESHAWN PECK Facility:[facility]1 Start: 07-27-2022 STRESS KARIS, Provider : [address] ,[id number], Status: Pen, Time: 2:00 PM Eusebia Terrell Work Phone: [facility] Work Phone: Start: 07-19-2022 Office outpatient vi sit 25 minutes Eusebia Terrell Work Phone: [facility] 305 DO Work Phone: Start: 07-19-2022 ambulatory JUSTYN MONDRAGON Facility:[id number] Start: 06-01-2022 End: 06-04-2022 ambulatory MIRZA GUZMÁN Facility:[facility]1 Start: 05-29-2022 End: 05-29-2022 ambulatory NATALIA TERRELL Facility:[facility]1 Start: 05-26-2022 End: 05-26-2022 ambulatory ROBERTA PERRIN Facility:[facility]1 Start: 05-20-2022 End: 05-20-[address] SALVADOR WALTERS . Facility:[facility]1 Start: 04-03-[address] Madison Christian Facility: Start: 02-04-2022 End: 02-04-2022 ambulatory NATALIA TERRELL Facility:[facility]1 Start: 01-26-2022 End: 01-26-2022 ambulatory NURSE AIDE EVALUATOR EUSEBIA XANDER Facility:[facility]1 Start: 01-12-2022 Office outpatient vi sit 25 minutes Eusebia Nela Quintanillahholz Work Phone: [facility] 250 DO Work Phone: Start: 01-12-2022 Patient encounter procedure Eusebia Nela Quintanillahholz Work Phone: [facility] 600 DO Work Phone: Start: 01-12-2022 ambulatory NATALIA Parsons y: Start: 01-11-2022 End: 01-12-2022 ambulatory NURSE AIDE EVALUATOR EUSEBIA XANDER Facility:[facility]1 Start: 01-08-2022 End: 01-08-2022 ambulatory NURSE AIDE EVALUATOR EUSEBIA SOCORROHMAEGANZ Facility:[facility]1 Start: 12-10-2021 End: 12-11-2021 ambulatory NURSE AIDE EVALUATOR EUSEBIA XANDER Facility:[facility]1 Start: 11-06-2021 End: 11-07-2021 ambulatory NURSE AIDE EVALUATOR EUSEBIA SOCORROHHOLZ Facility:[facility]1 Start: 08-02-[address] Madison Christian Facility:[id number] Start: 07-18-2021 Telephone encounter Eusebia Nela wayne Work Phone: [facility] 250 DO Work Phone: Start: 05-09-2021 Rx Renewal Eusebiakelley Quintanillahho lz Work Phone: [facility] 250 DO Work Phone: Start: 04-11-2021 Office outpatient vi sit 25 minutes Eusebia Nela Aichholz Work Phone: [facility] 600 DO Work Phone: Start: 04-04-2021 Rx Renewal Eusebia Rondon Socorrohho lz Work Phone: [facility] 250 DO Work Phone: Start: 08-23-2017 Ambulatory MADISON Escobar [id number] Echocardiogram normal Eusebia Rondon chholz Work Phone: [facility] Work Phone: Preoperative state Eusebia Rondon Aichh olz Work Phone: [facility] 600 DO Work Phone: Procedures Date Procedure Procedure Detail Performing Clinician Start: 04-12-2023 End: 04-13-2023 History of percutaneous transluminal coronary angioplasty History of PTCA Justyn Mondragon MD Work Phone: Start: 09-21-2022 History of placement of stent for coronary artery disease History of coronary angioplasty with insertion of stent Eusebia Terrell SYNOPTIC METEOROLOGIST Work Phone: Start: 01-11-2022 PSA screening NURSE AIDE EVALUATOR EUSEBIA TERRELL Comment on above: Performed By: #### T SH, BNP, HSTROPN, CMP #### [facility] [address] [place] [address] Dr. Jersey Butcher Start: 05-28-2017 Colonoscopy Eusebia veliz SYNOPTIC METEOROLOGIST Work Phone: Cardiac catheterization Eusebia Nela Quintanillahholz Work Phone: Cholecystectomy Eusebia Rondon Socorroh gallo Work Phone: Comment on above: [id number] Romero; Colonoscopy Eusebia Quintanillahhol z Work Phone: Comment on above: [id number] Haely; History of percutane ous transluminal coronary angioplasty History of PTCA Eusebia Quintanillahholz Work Phone: Operative procedure on knee Eusebia Quintanillahholz Work Phone: Percutaneous translu china coronary angioplasty Eusebia Terrell Work Phone: Plan of Treatment Date Care Activity Detail Author Start: 05-28-2027 Screening for malign ant neoplasm of colon [facility] Start: 10-17-2023 End: 10-17-2023 Patient encounter procedure 10/17/2023 10:00 AM EDT Office Visit [facility] [address] [place] [phone] Justyn Mondragon MD [address] [facility] [address], [facility] [address] [place] [address] [facility] Start: 08-14-2023 End: 08-14-2023 Patient encounter procedure 08/14/2023 10:00 AM EST Office Visit [facility] [address] [place] [address] Mirza Guzmán MD [address] [place] [address] [facility] Start: 07-19-2023 FUV, Provider: Justyn Mondragon, Status: Pen, Time: 1:00 PM FUV, Provider: Justyn Mondragon, Status: Pen, Time: 1:00 PM [place] [address] DO Work Phone: Start: 07-19-2023 End: 07-19-2024 Comprehensive metabolic 2000 panel - Serum or Plasma Comprehensive metabolic panel Lab Routine Mixed hyperlipidemia (CMS/HCC) Primary hypertension (CMS/HCC) Pre-diabetes Expected: 07/19/2023 (Approximate), Expires: 07/19/2024 [facility] Comment on above: Expected: 07/19/2023 (Approximate), Expires: 07/19/2024 Start: 07-19-2023 End: 07-19-2024 Hemoglobin A1c measurement Hemoglobin A1c Lab Routine Pre-diabetes Expected: 07/19/2023 (Approximate), Expires: 07/19/2024 [facility] Comment on above: Expected: 07/19/2023 (Approximate), Expires: 07/19/2024 Start: 07-19-2023 End: 07-19-2024 Lipid 1996 panel - Serum or Plasma Lipid panel Lab Routine Mixed hyperlipidemia (CMS/HCC) Expected: 07/19/2023 (Approximate), Expires: 07/19/2024 [facility] Comment on above: Expected: 07/19/2023 (Approximate), Expires: 07/19/2024 Start: 07-19-2023 End: 07-19-2024 Microalbumin/Creatinine panel in random Urine Microalbumin / creatinine, urine ratio Lab Routine Primary hypertension (CMS/HCC) Pre-diabetes Expected: 07/19/2023 (Approximate), Expires: 07/19/2024 [facility] Comment on above: Expected: 07/19/2023 (Approximate), Expires: 07/19/2024 Start: 07-19-2023 End: 07-19-2024 Prostate specific Ag [Mass/volume] in Serum or Plasma PSA Lab Routine Screening for prostate cancer Expected: 07/19/2023 (Approximate), Expires: 07/19/2024 [facility] Work Phone: Comment on above: Expected: 07/19/2023 (Approximate), Expires: 07/19/2024 Start: 07-19-2023 End: 07-19-2024 Urinalysis complete panel - Urine Urinalysis with reflex microscopic (clean catch) Lab Routine Primary hypertension (CMS/HCC) Pre-diabetes Expected: 07/19/2023 (Approximate), Expires: 07/19/2024 [facility] Comment on above: Expected: 07/19/2023 (Approximate), Expires: 07/19/2024 Start: 07-19-2023 End: 07-19-2023 Patient encounter procedure 07/19/2023 1:00 PM EST Office Visit [facility] [address] [phone] Justyn Mondragon MD [address] [facility], [facility] [address] [place] [address] [facility] Start: 02-16-2023 Influenza vaccination Influenza Vacc ine (#1) [facility] Start: 10-03-2022 REST ONLY, Provider: DAYANNA WAREI NUCLEAR 01,[id number], Status: Pen, Time: 10:00 AM REST ONLY, Provider: DAYANNA HHVI NUCLEAR 01,[id number], Status: Pen, Time: 10:00 AM [facility] 305 DO Work Phone: Start: 10-02-2022 STRESSNUC2, Provider : DAYANNA HHVI NUCLEAR 01,[id number], Status: Pen, Time: 11:00 AM STRESSNUC2, Provider: DAYANNA HHVI NUCLEAR 01,[id number], Status: Pen, Time: 11:00 AM [facility] Work Phone: Start: 07-27-2022 STRESS KARIS, Provider : [id number] HHVI NUCLEAR 01,[id number], Status: Pen, Time: 2:00 PM STRESS KARIS, Provider: [id number] HHVI NUCLEAR 01,[id number], Status: Pen, Time: 2:00 PM [facility] 305 DO Work Phone: Start: 03-29-2022 FUV, Provider: Madison Christian, Status: Pen, Time: 1:30 PM FUV, Provider: Madison Christian, Status: Pen, Time: 1:30 PM [facility] 600 DO Work Phone: Start: 07-05-2021 FUV, Provider: Madison Christian, Status: Pen, Time: 3:20 PM FUV, Provider: Madison Christian, Status: Pen, Time: 3:20 PM [facility] 250 DO Work Phone: Start: 2013 Zoster Vaccines (1 o f 2) Zoster Vaccines (1 of 2) [facility] Start: 1985 DTaP/Tdap/Td Vaccine s (1 - Tdap) DTaP/Tdap/Td Vaccines (1 - Tdap) [facility] Start: 1982 Hepatitis A Vaccines (1 of 2 - Risk 2-dose series) Hepatitis A Vaccines (1 of 2 - Risk 2-dose series) [facility] Start: 1981 Diabetes mellitus screening Diabetes Screening [facility] Start: 1981 [facility]atitis [facility] Start: 1969 Pneumococcal Vaccine : Pediatrics (0 to 5 Years) and At-Risk Patients (6 to 64 Years) (1 - PCV) Pneumococcal Vaccine: Pediatrics (0 to 5 Years) and At-Risk Patients (6 to 64 Years) (1 - PCV) [facility] Start: 1964 MMR Vaccines (1 of 1 - Standard series) MMR Vaccines (1 of 1 - Standard series) [facility] Start: 1963 COVID-19 Vaccine (#1) COVID-19 Vacci ne (#1) [facility] Start: 1963 Hepatitis B Vaccines (1 of 3 - 3-dose series) Hepatitis B Vaccines (1 of 3 - 3-dose series) [facility] Start: 1963 HIV screening HIV Screening [facility] Start: 1963 Lipid panel Lipid Panel [facility] Start: 1963 Screening for malign ant neoplasm of colon [facility] Start: 1963 Yearly Adult Physical Yearly Adult P hysical [facility] Payers Date Payer Category Payer Medicaid [id number] 2023 Unknown [id number] 2022 Unknown [id number] 2022 Unknown 2022 Unknown 1 1963 Unknown [id number] 2.16. 840.1.703578.3.579.2.356 1963 Unknown [id number] 2.16 840.1.606185.3.579.2.356 1963 Unknown [id number] 2.16 840.1.809420.3.579.2.356 1963 Unknown [id number] 2.16. 840.1.600163.3.579.2.356 1963 Unknown [id number] 2.16.84 0.1.834912.3.579.2.593 1963 Unknown [id number] 2.16.84 0.1.143961.3.579.2.593 1963 Unknown [id number] 2.16.84 0.1.293420.3.579.2.593 1963 Unknown [id number] 2.16.84 0.1.253069.3.579.2.593 1963 Unknown [id number] 2.16.84 0.1.714251.3.579.2.593 1963 Unknown [id number] 2.16.84 0.1.596710.3.579.2.593 1963 Unknown [id number] 2.16.84 0.1.173167.3.579.2.593 1963 Unknown [id number] 2.16.84 0.1.045708.3.579.2.593 1963 Unknown [id number] 2.16.84 0.1.523797.3.579.2.593 1963 Unknown [id number] 2.16.84 0.1.238148.3.579.2.593 1963 Unknown [id number] 2.16.84 0.1.074177.3.579.2.593 1963 Unknown [id number] 2.16.84 0.1.422257.3.579.2.593 1963 Unknown [id number] 2.16.84 0.1.727920.3.579.2.593 1963 Unknown [id number] 2.16.84 0.1.940023.3.579.2.593 1963 Unknown [id number] 2.16.8 40.1.498001.3.579.2.1068 1963 Unknown [id number] 2.16.8 40.1.000763.3.579.2.1068 1963 Unknown [id number] 2.16.8 40.1.966555.3.579.2.1244 1963 Unknown [id number] 2.16.84 0.1.665364.3.579.2.1259 1963 Unknown [id number] 2.16.84 0.1.071088.3.579.2.1259 1963 Unknown [id number] 2.16.840 .1.991717.3.579.2.1259 1963 Unknown [id number] 2.16.840 .1.767629.3.579.2.1259 1963 Unknown [id number] 2.16.8 40.1.835218.3.579.2.1286 1963 Unknown [id number] 2.16.84 0.1.375163.3.579.2.1286 1959 Private Health Insurance [id number] 1959 Unknown [id number] Self-pay Self Pay [id number] Social History Date Type Detail Facility Tobacco smoking stat [facility] Unknown if ever smoked [facility] Start: 1965 Sex Assigned At Male F [facility] Start: 07-19-2023 Daily caffeine consumption Daily caffeine consumption [facility] 600 DO Work Phone: Comment on above: 2 (24oz) cups of cof fee daily; Quit 07/26/2012; Start: 04-13-2023 End: 06-06-2023 Tobacco smoking status NHIS Ex-smoker [facility] End: 07-31-2012 History of tobacco use Current smoker [facility] Work Phone: End: 07-31-2012 History of tobacco use Cigarette Smoker [facility] Work Phone: Start: 04-13-2023 Tobacco use and exposure Smokeless tobacco non-user [facility] Work Phone: Start: 04-13-2023 Alcohol intake Lifetime non-d raisa (finding) [facility] Work Phone: Start: 1965 Sex Assigned At Not on file [facility] Work Phone: Start: 07-19-2023 Gender identity Not on file [facility] Work Phone: Start: 04-03-2023 End: 04-13-2023 Exposure to SARS-CoV-2 (event) Not sure [facility] Start: 07-19-2023 Alcohol intake Ex-drinker (finding) [facility] Start: 06-06-2023 Alcohol Comment caffeine 1-2 c ups per day [facility] Goals Date Patient Goal Desired Activity /State Clinical Notes 08-25-2022 to 07-19-2023 Eusebia Terrell NP - 07/19/2023 12:48 PM ESTEusebia Terrell, GENESIS - 07/19/2023 12:46 PM Frederick Terrell, GENESIS - 07/19/2023 12:46 PM ESTEusebia Terrell, GENESIS - 07/19/2023 12:45 PM ESTPatient Instructions Note Date & Type Note Facility 07-19-2023 History of Present illness Narrative Associated Problem(s): Arrhythmia Has appt with new brush fabrication supervisor next week Cont b preet, anti coagulation, Needs to wear PAP Associated Problem(s): Bilateral lower extremity edema stable Associated Problem(s): Chronic atrial fibrillation (HCC) (CMS/HCC) (Resolved 07/19/2023) Remains in a fib, ,cont b preet, anti coagulation Recommend PAP use Fu with new brush fabrication supervisor next week Associated Problem(s): Primary hypertension (CMS/HCC) Stable on current meds Associated Problem(s): Hypoxia O2 Associated Problem(s): 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 Elyse Duong is a 58 y.o. male presents with chief complaint of No chief complaint on file. HPI: Here for a recheck of a fib, lower extremity edema and COPD. He reports he is breathing better since last visit: no fever, less cough, needs new order for O2. To read: pulse dose oxygen concentrator @3. Order written Still w seeping in bilat Legs R>L. Cut his b preet back to 25mg BID as it was causing excessive coughing Has appt with cardiology for next week at [facility]. No chest pain or dizziness Is not wearing his CPAP , states it dries him out too much, has not been to his apron man recently either SUBJECTIVE: MEDICATIONS: Current Outpatient Medications Medication Instructions apixaban (ELIQUIS) 5 mg, Oral, 2 times daily aspirin 81 mg, Oral, Daily atorvastatin (LIPITOR) 40 mg, Oral, Daily cholecalciferol (VITAMIN D-3) 50,000 Units, Oral, Daily RT dilTIAZem CD (CARDIZEM CD) 240 mg, Oral, Daily fluticasone (Flonase) 50 MCG/ACT nasal spray 1-2 sprays, Each Nostril, Daily, Shake gently. Before first use, prime pump. After use, clean tip and replace cap. Cmnhvoamihf-Fpoywypkm-Thhuyd (Trelegy Ellipta) 100-62.5-25 MCG/ACT aerosol powder 1 puff, Mouth/Throat, Daily, Rinse mouth after use furosemide (LASIX) 20 mg, Oral, Daily levalbuterol (Xopenex) 45 MCG/ACT inhaler 2 puffs, Inhalation, Every 6 hours PRN loratadine (CLARITIN) 10 mg, Oral, Daily losartan (COZAAR) 50 mg, Oral, Daily RT metoprolol tartrate (LOPRESSOR) 50 mg, Oral, 2 times daily nitroglycerin (NITROSTAT) 0.4 mg, Sublingual, Every 5 min PRN potassium chloride CR (KLOR-CON) 10 MEQ ER tablet 20 mEq, Oral, Daily ALLERGIES: Allergies Allergen Reactions Lisinopril Cough REVIEW OF SYMPTOMS: Review of Systems Constitutional: Negative for activity change, appetite change and unexpected weight change. HENT: Negative for ear pain, nosebleeds, sneezing, trouble swallowing and voice change. Eyes: Negative for pain, discharge and visual disturbance. Respiratory: Positive for shortness of breath and wheezing. Negative for apnea and chest tightness. Cardiovascular: Positive for leg swelling. Negative for chest pain and palpitations. Gastrointestinal: Negative for abdominal distention, blood in stool, constipation and diarrhea. Genitourinary: Negative for decreased urine volume, difficulty urinating, dysuria and hematuria. Skin: Negative for color change. Neurological: Negative for dizziness, tremors and seizures. Psychiatric/Behavioral: Negative for agitation, decreased concentration, hallucinations, self-injury and suicidal ideas. The patient is not nervous/anxious. Hematological: Negative for adenopathy. Does not bruise/bleed easily. Endocrine: Negative for cold intolerance, heat intolerance, polydipsia and polyuria. Allergic/Immunologic: Negative for environmental allergies and food allergies. PAST MEDICAL HISTORY Past Medical History: Diagnosis Date Abdominal pain Achilles tendon pain Arrhythmia 05/25/2023 Bilateral lower extremity edema 06/06/2023 Bilateral lower leg cellulitis 06/06/2023 CAD (coronary artery disease) ([facility]) COPD (chronic obstructive pulmonary disease) with emphysema ([facility]) 06/28/2023 Coronary artery disease involving curyung coronary artery of curyung heart without angina pectoris ([facility]) 05/25/2023 DENIES H/O BLOOD BORNE DISEASE Hyperlipidemia ([facility]) Hypoxia 06/28/2023 Myocardial infarction ([facility]) Obesity CATERINA (obstructive sleep apnea) 05/25/2023 Primary hypertension ([facility]) 05/25/2023 Superficial phlebitis and thrombophlebitis of left lower extremity Venous insufficiency of both lower extremities Past Surgical History: Procedure Laterality Date ANGIOPLASTY 2013 CHOLECYSTECTOMY 2016 KNEE SURGERY Left 04/15/2021 SCOPE - DR GREER ([facility]) family history includes Diabetes in his mother. OBJECTIVE: Visit Vitals BP 130/88 (BP Location: Right arm, Patient Position: Sitting, BP Cuff Size: Large adult long) Pulse 95 Temp 97.5 F (Temporal) Resp 24 Ht 5' 8 Wt 369 lb 9.6 oz SpO2 95% BMI 56.20 kg/m Smoking Status Former BSA 2.84 m Physical Exam Vitals reviewed. Constitutional: Appearance: Normal appearance. HENT: Head: Normocephalic. Right Ear: External ear normal. Left Ear: External ear normal. Nose: Nose normal. Mouth/Throat: Mouth: Mucous membranes are moist. Pharynx: Oropharynx is clear. Eyes: Extraocular Movements: Extraocular movements intact. Conjunctiva/sclera: Conjunctivae normal. Cardiovascular: Rate and Rhythm: Normal rate. Rhythm irregular. Pulses: Normal pulses. Heart sounds: Normal heart sounds. No murmur heard. Pulmonary: Effort: Pulmonary effort is normal. No respiratory distress. Breath sounds: No wheezing, rhonchi or rales. Comments: Lungs diminished Abdominal: General: Bowel sounds are normal. Palpations: Abdomen is soft. Musculoskeletal: Cervical back: Neck supple. Right lower leg: Edema present. Left lower leg: Edema present. Lymphadenopathy: Cervical: No cervical adenopathy. Skin: General: Skin is warm and dry. Capillary Refill: Capillary refill takes 2 to 3 seconds. Findings: Erythema (bilat LE venous insuffiency) present. Neurological: General: No focal deficit present. Mental Status: He is alert. Psychiatric: Mood and Affect: Mood normal. Behavior: Behavior normal. Thought Content: Thought content normal. Judgment: Judgment normal. ASSESSMENT AND PLAN: No follow-ups on file. 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 Cont b preet, anti coagulation, Needs to wear PAP Primary hypertension (CMS/HCC) Stable on current meds Relevant Orders Comprehensive metabolic panel Microalbumin / creatinine, urine ratio Urinalysis with reflex microscopic (clean catch) CATERINA (obstructive sleep apnea) Non complaint with PAP use Explained to pt why important to wear for heart failure, afib, and copd, will also help his LE edema Needs to call his apron man Hyperlipidemia (CMS/HCC) Relevant Orders Comprehensive metabolic panel Lipid panel Morbid obesity with BMI of 50.0-59.9, adult (CMS/HCC) Bilateral lower extremity edema stable COPD (chronic obstructive pulmonary disease) with emphysema (CMS/HCC) Continue with apron man, as well as inhalers, etc Hypoxia O2 Venous insufficiency of both lower extremities Screening for prostate cancer - Primary Relevant Orders PSA Pre-diabetes Relevant Orders Comprehensive metabolic panel Microalbumin / creatinine, urine ratio Urinalysis with reflex microscopic (clean catch) Hemoglobin A1c documented in this encounter [facility] 04-13-2023 History of Present illness Narrative Images from the original note were not included. CARDIOLOGY OFFICE VISIT CHIEF COMPLAINT HISTORY OF PRESENT ILLNESS The patient is being seen after recent hospitalization at [facility]. He states that he had atrial [...] coronary angioplasty Paroxysmal atrial fibrillation (CMS/HCC) [place] (myocardial infarction) Mixed hyperlipidemia Primary hypertension Obstructive sleep apnea syndrome Morbid obesity with BMI of 50.0-59.9, adult (CMS/HCC) Former smoker Status post ablation of incompetent vein using laser @ASSESSMENTANDPLANTEXT@ documented in this encounter [facility] Work Phone: 04-13-2023 Instructions Enrike Orozco RN - 04/13/2023 [...] Justyn Ramirez MD documented in this encounter [facility] Work Phone: 08-25-2022 Note PROCEDURE: XR ANKLE LT MIN [...] PECK Date: 2022-08-25 07:01 [facility] Chief complaint Narrative - Reported ELYSE DUONG is being seen for a cardiovascular evaluation . [facility]: Evaluation note Diagnosis CAD S/P percutaneous coronary angioplasty Paroxysmal atrial fibrillation (CMS/HCC) Atrial fibrillation [place] (myocardial infarction) Old myocardial infarction Mixed hyperlipidemia Primary hypertension Unspecified essential hypertension Obstructive sleep apnea syndrome Obstructive sleep apnea (adult) (pediatric) Morbid obesity with BMI of 50.0-59.9, adult (CMS/HCC) Former smoker Personal history of tobacco use, presenting hazards to health Status post ablation of incompetent vein using laser documented in this encounter [facility] Work Phone: Evaluation note* Diagnosis Screening for prostate cancer- Primary Special screening for malignant neoplasm of prostate Mixed hyperlipidemia (CMS/HCC) Mixed hyperlipidemia Primary hypertension (CMS/HCC) Unspecified essential hypertension Pre-diabetes Other abnormal glucose Morbid obesity with BMI of 50.0-59.9, adult (CMS/HCC) Hypoxia Hypoxemia Pulmonary emphysema, unspecified emphysema type (CMS/HCC) Bilateral lower extremity edema CATERINA (obstructive sleep apnea) Obstructive sleep apnea (adult) (pediatric) Venous insufficiency of both lower extremities Atrial fibrillation, unspecified type (CMS/HCC) [facility] Pulmonary emphysema, unspecified emphysema type (CMS/HCC)- Primary [facility] N[facility]ative* Patient is here for follow- up and to discuss preoperative risk assessment for knee surgery. He is no ncompliant 55-year-old with known history of coronary artery [...] test showed limited exercise tolerance but was negative. * ASSESSMENT: * 1. Coronary artery disease with prior PCI to the right coronary artery with known occlusion of his curyung circ. 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 Hypertension, controlled. * 3. Hyperlipidemia, no recent lab available * 4. Obesity with significant weight gain recently his BMI now above 50 * 5. Sleep apnea, compliant with CPAP. * 6. Remote history of atrial fibrillation. No recurrence. Elected for aspirin therapy. * 7. Preoperative risk assessment for knee surgery * RECOMMENDATION: * 1. The patient based on the above and stable cardiac status * 2. Patient was counseled regarding coronary risk factor modification * 3. Patient is acceptable candidate to proceed with his surgery his operative risk is acceptable based on ACC/AHA guidelines in view of prior revascularization, no active cardiac symptoms and a previously negative stress test * 4. Patient was advised he can hold his aspirin for 5-7 days prior to surgery * 5. Patient advised to be compliant * 6. We discussed risk factor modification the importance of weight reduction * 7. 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 [facility] 600 DO Work Phone: History of Present illness Narrative* The patient is being seen today because of upcoming DOT physical. 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 He states he has been doing well from a cardiac standpoint. He denies chest discomfort or symptoms of myocardial ischemia. He has not used nitroglycerin.He denies any significant dyspnea on exertion. He denies palpitations, presyncope, and syncope. He denies any problem with his current medications. I did go over results of his lab work done in May and his sodium and potassium are low. I told him I believe this is due to hydrochlorothiazide. Damian getting give him a short term potassium chloride replacement to bring up his potassium. I am going to discontinue his hydrochlorothiazide and increase his dose of lisinopril. I will place him on 20 mg of lisinopril a day. He will check his blood pressure regularly 2 or 3 times a week and call meif is not under control. I told him we will get a GXT for his DOT physical and call him with results. I did go results of his lipid profile with him from December 2021. Cholesterol 133, triglycerides 135, HDL 54, LDL 52. * IMPRESSION * 1. Cardiac status, stable. * 2. Coronary artery disease. * 3. Non-Q-wave myocardial infarction, July 2012. * 4. Percutaneous coronary intervention with bare-metal stent implantation of mid right coronary artery, July 2012. * 5. Morbid obesity. * 6. Hyperlipidemia. * 7. Obstructive Sleep Apnea, CPAP compliant * 8. Hypertension * 9. Remote history of atrial fibrillation, no clinical recurrences * Please excuse any errors in grammar or translation related to this dictation. Voice recognition software was utilized to prepare this document. 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 He states he has been doing well from a cardiac standpoint. He denies chest discomfort or symptoms of myocardial ischemia. He has not used nitroglycerin.He denies any significant dyspnea on exertion. He denies palpitations, presyncope, and syncope. He denies any problem with his current medications. I did go over results of his lab work done in May and his sodium and potassium are low. I told him I believe this is due to hydrochlorothiazide. Damian getting give him a short term potassium chloride replacement to bring up his potassium. I am going to discontinue his hydrochlorothiazide and increase his dose of lisinopril. I will place him on 20 mg of lisinopril a day. He will check his blood pressure regularly 2 or 3 times a week and call meif is not under control. I told him we will get a GXT for his DOT physical and call him with results. I did go results of his lipid profile with him from December 2021. Cholesterol 133, triglycerides 135, HDL 54, LDL 52. * IMPRESSION * 1. Cardiac status, stable. * 2. Coronary artery disease. * 3. Non-Q-wave myocardial infarction, July 2012. * 4. Percutaneous coronary intervention with bare-metal stent implantation of mid right coronary artery, July 2012. * 5. Morbid obesity. * 6. Hyperlipidemia. * 7. Obstructive Sleep Apnea, CPAP compliant * 8. Hypertension * 9. Remote history of atrial fibrillation, no clinical recurrences * Please excuse any errors in grammar or translation related to this dictation. Voice recognition software was utilized to prepare this document. [facility] Work Phone: Summary Purpose Family History Relationship Condition Age at Onset Recorded Date/T [...] section and content) DATE CREATED AUTHOR 12/06/2017 [facility] DATE CREATED AUTHOR AUTHOR'S ORGANIZ ATION [facility] DATE CREATED AUTHOR AUTHOR'S ORGANIZ ATION 07/20/2022 [facility] DATE CREATED AUTHOR AUTHOR'S ORGANIZ ATION 10/29/2022 [facility] DATE CREATED AUTHOR AUTHOR'S ORGANIZ ATION 12/23/2022 [facility] DATE CREATED AUTHOR AUTHOR'S ORGANIZ ATION 04/16/2023 [facility] DATE CREATED AUTHOR AUTHOR'S ORGANIZ ATION 07/20/2023 [facility] EPIC DATE CREATED AUTHOR AUTHOR'S ORGANIZ ATION 07/30/2023 [facility] Reason for Visit (unrecogniz ed section and content) Reason Comments Hospital Follow-up Care Teams (unrecognized sec tion and content) Windshield Technician Relationship Specialty Start Date End Date Eusebia Terrell, LEATHER [employer] ASSEMBLER-NURSE AIDE EVALUATOR [address] [place] [address] PCP - General 11/04/19 Windshield Technician Relationship Specialty Start Date End Date Mirza Guzmán MD [address] [place] [id number] PCP - General Family Medicine 06/05/23 Eusebia Terrell NP [address] [place] [phone] Nurse Practitioner Family Medicine 03/18/23 Windshield Technician Relationship Specialty Start Date End Date Mirza Guzmán MD [address] [place] [address] PCP - General Family Medicine 06/05/23 Eusebia Terrell NP [address] [place] [phone] Nurse Practitioner Family Medicine 03/18/23 FOR RECORDS PERTAINING TO PATIENTS WHO ARE [...] BE BASED ON THE PRIMARY CLINICAL RECORDS. [facility]. provides no warranty or guarantee of the accuracy or completeness of information in this document.
[2023-08-06 10:34] LABS: Bilirubin Urine NEGATIVE (NEGATIVE); Blood Urine NEGATIVE (NEGATIVE); Clarity Urine CLEAR (CLEAR); Color Urine LT. YELLOW (YELLOW); Glucose Urine UA NEGATIVE (NEGATIVE); Ketones Urine NEGATIVE (NEGATIVE); Leukocyte Esterase Urine NEGATIVE (NEGATIVE); Nitrite Urine NEGATIVE (NEGATIVE); Protein Urine NEGATIVE (NEG/TRACE); Specific Gravity Urine 1.015 (1.005-1.025); Urobilinogen Urine 0.2 EU/dL (0.2-1.0); pH Urine 5.5 (5.0-9.0)
[2023-08-06 10:37] LABS: Urine Microscopic Indicated NO
[2023-08-06 10:38] LABS: Estimated Average Glucose 126 mg/dL
[2023-08-06 11:08] LABS: Creatinine Urine Random 25.93 mg/dL (20.00-300.00)
[2023-08-06 11:11] LABS: Microalbum Creatinine Ratio Ur 50.1 mg/g (0.0-29.9); Microalbumin Urine Random <1.3 mg/dL (<=30.0)
[2023-08-06 11:39] LABS: Alanine Aminotransferase 20 U/L (16-63); Albumin Globulin Ratio 0.9; Albumin Level 3.3 g/dL (3.4-5.0); Alkaline Phosphatase 120 U/L (46-116); Anion Gap 11.3; Aspartate Amino Transferase 13 U/L (15-37); BUN Creatinine Ratio 18.8; Bilirubin Total 0.6 mg/dL (0.2-1.0); Calcium 9.3 mg/dL (8.5-10.1); Carbon Dioxide 32.8 mmol/L (21.0-32.0); Chloride 102 mmol/L (98-107); Chol HDL Ratio 2.1; Cholesterol 135 mg/dL (<=200); Estimated GFR (African America >60 (>=60); Estimated GFR (Non-African Ame >60 (>=60); Globulin 3.8 g/dL; Glucose 108 mg/dL (74-106); HDL Cholesterol 63 mg/dL (40-60); Potassium 4.1 mmol/L (3.5-5.1); Sodium 142 mmol/L (136-145); Total Protein 7.1 g/dL (6.4-8.2); Triglycerides 122 mg/dL (<=150); VLDL CHOLESTEROL 24.4 mg/dL
[2023-08-06 12:05] LABS: Prostate Specific Antigen Dx 3.81 ng/mL (<=4.00)
== END 2023-08-06 10:09 | disposition home or self-care (01) ==
PROVIDERS: PCP Nurse Practitioner; Visit Provider Nurse Practitioner
DX: Z12.5 Encounter for screening for malignant neoplasm of prostate (principal); E78.2 Mixed hyperlipidemia; I10 Essential (primary) hypertension; R73.03 Prediabetes
CPT/HCPCS: 36415; 80053; 80061; 81003; 82043; 82570; 83036; 84153

== ENCOUNTER 2023-08-06 10:50 | Outpatient (OUT) | payer OTHER, SELFPAY ==
--- NOTE | 2023-08-06 | XR_ITS ---
[address] [address] Patient Name: ELYSE LEAHY MRN: [id number] date: 1965 Sex: M Assigned Patient Location: Current Patient Location: Accession/Order Number: [id number] Exam Date: 08/06/2023 11:15 Report Date: 08/07/2023 10:04 At the request of: KESHAWN GRIMM Procedure: XR knee RT 4V EXAM: XR knee RT 4V HISTORY: RIGHT KNEE PAIN COMPARISON: None. TECHNIQUE: 3 views FINDINGS: Mild degenerative changes of the knee joint. No acute fracture or dislocation. Unremarkable soft tissues. XR/XR knee RT 4V IMPRESSION: Degenerative changes as above. Electronically authenticated by: VIDHI FINLEY Date: 08/07/2023 10:04
--- OUTSIDE RECORDS SUMMARY | 2023-08-06 10:56 | XMS_ITS | CCD ---
Author Name Unknown Address [address] [place] [address] Organization [facility] Care Team Providers Care Outdoor Recreation Specialist Name Role Phone MADISON CHRISTIAN Unavailable Unavailable [...] Eusebia Rondon Primary Care Unavailab le SOCORROHHOLAyden, BOOK MENDER EUSEBIA Primary Care Unavailable BRENTON, DR VIDHI Biswas Consulting Unavailable BRENTON, DR VIDHI Biswas Admitting Unavailable BRENTON, DR VIDHI Biswas Attending Unavailable EUSEBIA VICTORIA Consulting Unavailable MARCO ANTONIO FRIEDMAN Consulting Unavailable AICHHOLZ, BOOK MENDER EUSEBIA Primary Care Unavailable TED SUNG Admitting Unavailable ANNAMARIE Sue, TED Attending Unavailable ANNAMARIE ., TED Consulting Unavailable ROBERTA PERRIN Consulting Unavailable ROBERTA PERRIN Attending Unavailable UBALDO PERRINYL Admitting Unavailable AICHHOLZ, BOOK MENDER EUSEBIA Primary Care Unavailable TYESHA, MARLENE Consulting Unavailable AICHHOLZ, BOOK MENDER EUSEBIA Primary Care Unavailable AYDIN, ROBERTA Admitting Unavailable ROBERTA PERRIN Attending Unavailable AYDIN, ROBERTA Consulting Unavailable Nery Mckeon Consulting Unavailable AICHHOLZ, BOOK MENDER EUSEBIA Primary Care Unavailable CAM Sue, DR CONNOLLY Admitting Unavailable CAM ., DR CONNOLLY Attending Unavailable RAFEAL, DR MARCO ANTONIO Stewart Consulting Unavailable CLARY RODARTE Consulting Unavailable AICHHOLZ, BOOK MENDER EUSEBIA Primary Care Unavailable BRENTON, DR VIDHI Biswas Admitting Unavailable BRENTON, DR VIDHI Biswas Attending Unavailable BRENTON, DR VIDHI Biswas Consulting Unavailable DONG BUNDY Consulting Unavailable ANNAMARIE .TED Consulting Unavailable ANNAMARIE ., TED Attending Unavailable ANNAMARIE ., TED Admitting Unavailable AICHHOLZ, BOOK MENDER EUSEBIA Primary Care Unavailable Dawit, Leo Consulting Unavailable ROMEO .DR FRANCO Consulting Unavailable ROMEO ., DR FRANCO Attending Unavailable AICHHOLZ, BOOK MENDER EUSEBIA Primary Care Unavailable ROMEO .DR FRANCO Admitting Unavailable CAM ., DR CONNOLLY Consulting Unavailable ROBERTA PERRIN Consulting Unavailable SANDEEP MARY Consulting Unavailable AICHHOLZ, BOOK MENDER EUSEBIA Consulting Unavailable AICHHOLZ, BOOK MENDER EUSEBIA Primary Care Unavailable AICHHOLZ, BOOK MENDER EUSEBIA Attending Unavailable AICHHOLZ, BOOK MENDER EUSEBIA Admitting Unavailable MISC, DR DAVIS Consulting Unavailable AICHHOLZ, BOOK MENDER EUSEBIA Primary Care Unavailable MISC, DR DAVIS Attending Unavailable MISC, DR DAVIS Admitting Unavailable ZIEBER, DR KESHAWN Biswas Consulting Unavailable AICHHOLZ, BOOK MENDER EUSEBIA Primary Care Unavailable RICA YE Attending Unavailable RICA YE Admitting Unavailable RICA YE Consulting Unavailable AICHHOLZ, BOOK MENDER EUSEBIA Consulting Unavailable AICHHOLZ, BOOK MENDER EUSEBIA Primary Care Unavailable AICHHOLZ, BOOK MENDER EUSEBIA Attending Unavailable AICHHOLZ, BOOK MENDER EUSEBIA Admitting Unavailable AICHHOLZ, BOOK MENDER EUSEBIA Admitting Unavailable AICHHOLZ, BOOK MENDER EUSEBIA Attending Unavailable AICHHOLZ, BOOK MENDER EUSEBIA Primary Care Unavailable AICHHOLZ, BOOK MENDER EUSEBIA Consulting Unavailable MIRZA GUZMÁN Attending Unavailable MIRZA GUZMÁN Admitting Unavailable DR SALVADOR COBIAN Consulting Unavailable AICHHOLZ, BOOK MENDER EUSEBIA Primary Care Unavailable BABITA .DR SCOTT Consulting Unavailable MIRZA GUZMÁN Consulting Unavailable NIKOLAY .KARISHMA Consulting UnavailJuanjose Sue, DR CONNOLLY Consulting Unavailable KESHAWN ALVAREZ Consulting Unavailable Aichholz, Mrs. Eusebia Nela Primary Care Unavailab TEQUILA Card Attending Unavailable Aichholz, Mrs. Eusebia Nela Primary Care Unavailab annie TEQUILA JAFFE Attending Unavailable Xander SENIOR ADMINISTRATIVE ASSOCIATE-NATALIAEusebia Primary Care Provider JUSTYN MONDRAGON Attending Unavail able XANDER EUSEBIA RONDON Primary Care Unavailable Xander ARABIC TRANSLATOR, Eusebia Unavailable Mirza Guzmán MD Primary Care [...] Lisinopril; Translations: [Lisinopril TABS] Drug Allergy 04-12-[facility] (5 sources) Lisinopril; Translations: [LISINOPRIL] Drug Allergy 04-12-2023 [facility] 3 Repository Medications Current Medications Medication [...] the morning cholecalciferol (Vitamin D-3) 1.25 MG (70120 UT) capsule Take 50,000 Units by mouth [...] completed) Start: 03-27-2020 take 1 capsule by [facility] every twenty-four hours Dilt-XR 180 MG Oral Capsule Extended Release 24 Hour Quantity: 90 Refills: 0 Ordered: 17-Dec-2020 DO Start : 27-Mar-2020 Complete Start: 04-24-2019 take 180 mg by mouth once daily in the morning Diltiazem Hcl Active 180 MG Oral Every morning April 24, 2019 11:20am take 1 capsule by [facility] once daily dilTIAZem CD (Cardizem CD) [...] INH Inhalation Daily April 24, 2019 11:20am dsgdysiybec-dquolaurt-juyzcc er (Trelegy Ellipta) 200-62.5-25 mcg blister with device (1 source) End: 04-13-2023 remavoltpjx-dtqfxmcaz-gfadtq er (Trelegy Ellipta) 200-62.5-25 mcg blister with [...] by mouth once daily. 0 Active vitamin plhxffc-ilyx-twjzk ( Plus, calcium carb,) 27 mg iron- 1 mg tablet (1 source) Start: 1 End: 3 take 1 tablet by mouth once daily vitamin zkupzaq-fysa-osrpp ( Plus, calcium carb,) 27 mg iron- [...] Ordered: 25-Feb-2021 DO Start : 25-Feb-2021 Complete [id number] 60 actuat albuterol 0.09 mg/actuat metered dose [...] [Coronary atherosclerosis of unspecified type of vessel, igiugig or graft] Onset: 03-20-2014 Resolved: 07-19-2023 04-13-2023 [...] Onset: 10-28-2022 Episodic Other aftercare (1 source) [facility] (current) use of aspirin; Translations: [LONGTERM CURRENT USE OF ASPIRIN] Onset: 08-29-2022 Episodic Other aftercare (1 source) Other assisted (current) drug therapy; Translations: [OTH LONGTERM CURRENT DRUG THERAPY] Onset: 08-29-2022 Episodic Other [...] Unclassified (1 source) Athscl heart disease of igiugig coronary artery w/o ang pctrs / I25.10(ICD-9) [...] spec) Not detected Normal NOT DETECTED [facility] Comment on above: Performed By: #### C VDTBH #### [facility] [address] [place] [address] Dr. Jersey Butcher INFLUENZA A AND B AGon 10-26 INFLUANEGH SEE BELOW Normal [facility] Comment on above: Result Comment: Nega tive for Flu A protein angiten. Infection due to Flu A cannot be ruled out. Flu A angiten in the sample may be below the detection limit of the test. Performed By: #### T SH, BNP, HSTROPN, CMP #### [facility] [address] [place] [address] Dr. Jersey Butcher INFLUBNEGH SEE BELOW Normal [facility] Comment on above: Result Comment: Nega tive for Flu B protein antigen. Infection due to Flu B cannot be ruled out. Flu B antigen in the sample may be below the detection limit of the test. Performed By: #### T SH, BNP, HSTROPN, CMP #### [facility] [address] [place] [address] Dr. Jersey uBtcher INFLUENZA A AG Negative Normal NEGATIVE SEE COMMENT [facility] Comment on above: Performed By: #### T SH, BNP, HSTROPN, CMP #### [facility] [address] [place] [address] Dr. Jersey Butcher INFLUENZA B AG Negative Normal NEGATIVE SEE COMMENT [facility] Comment on above: Performed By: #### T SH, BNP, HSTROPN, CMP #### [facility] [address] [place] [address] Dr. Jersey Butcher SYMPTOMATIC COVID-19 ANTIGEN on 10-26-2022 EUA Statement SEE BELOW Normal [facility] Comment on above: Result Comment: This test [...] sooner. Performed By: #### C VDTBH #### [facility] [address] [address] [address] Jersey Butcher SARS-CoV-2 (COVID-19) RNA PILI+probe Ql (Unsp spec) Negative Normal NEGATIVE [facility] Comment on above: Performed By: #### C VDTBH #### [facility] [address] [place], [place] [address] Dr. Jersey Butcher [facility] CARDIAC STRESS/REST INJE CTIONon 10-02-2022 [facility] CARDIAC STRESS/REST INJECTION Patient Name: ELYSE DUONG STUDY: MYOCARDIAL PERFUSION STRESS TEST WITH LEXISCAN Performing facility: [facility], [address] [place] [address], [address], [address] Provider: Tequila Jaffe MD, FACC PCP: Dr. Tristen Terrell Supervising provider: Mary Julien MD, FACC INDICATION: DOT physical I25.10: CAD S/P percutaneous coronary angioplasty Z98.61 HISTORY: Gender: M; Age: 57 y/o ; Height: 0 cm; Weight: 154.226991 kg. CAD; High Cholesterol; HTN; Previous WI; Arrhythmias; AFib Quit smoking 10 years ago. Cardiac catheterization 2012. PTCA on RCA. COMPARISON: No comparison. ACCESSION NUMBER(S): [id number]; [id number] ORDERING CLINICIAN: TEQUILA JAFFE TECHNIQUE: TWO DAY [...] signed by: MADISON CHRISTIAN MD Normal [facility] No Panel Informationon 10-02 Normal -[facility] 305 DO Work Phone: HEMOGLOBINon 09-15-2022 Hemoglobin (Bld) [Mass/Vol] 14.3 g/dL Normal 14.0-18.0 [facility] Comment on above: Performed By: #### T SH, BNP, HSTROPN, CMP #### [facility] [address] [address] [address] Jersey Butcher [facility]16 SARS-CoV-2 (COVID-19) RNA PILI+probe Ql (Unsp spec) Not detected Normal NOT DETECTED [facility] Comment on above: Result Comment: When diagnostic [...] for this test is supported by the [place] of Health and Human Service's declaration that [...] #### T SH, BNP, HSTROPN, CMP #### [facility] [address] [address] [address] Jersey Butcher GROUP A STREP CULTUREon 08-16 S. pyogenes Ag Ql (Unsp spec) Culture Observations: NEGATIVE FOR GROUP A STREPTOCOCCUS. Normal [facility] Comment on above: Performed By: #### T SH, BNP, HSTROPN, CMP #### [facility] [address] [place] [address] Dr. Jersey Btucher STREPT SCREENon 08-27-2022 STREP SCREEN A Negative Normal NEGATIVE [facility] Comment on above: Performed By: #### T SH, BNP, HSTROPN, CMP #### [facility] [address] [place] [address] Dr. Jersey Butcher XR CHEST 1 Von 08-27-2022 XR CHEST 1 V EXAM: XR CHEST 1 V HISTORY: SHORTNESS OF BREATH COMPARISON: 05/25/2022 TECHNIQUE: Frontal view of the chest. FINDINGS: No focal consolidations or pleural effusions. Cardiomegaly. Visualized osseous structures are unremarkable. IMPRESSION: No acute disease. Electronically authenticated by: LEO MARSHALL Date: 2022-08-27 14:06 Normal [facility] Office Visit (Cardiology)on 07-19-2022 Follow-up visit Diagnoses/Problems [...] [address] Justyn Mondragon MD. [facility] Patient to STOP Hydrochlorothiazide moving forward. [...] Screening.on 023 Adult depression screening assessment No [facility] 305 DO Work Phone: Fall risk assessment a) [facility] the [facility] Work Phone: Tobacco use status [facility] b) No [facility] 305 DO Work Phone: CBC W MANUAL DIFFon 06-04-20 22 ATYPICAL LYMPH # 0.14 103/ul Normal [facility] Comment on above: Performed By: #### T SH, BNP, HSTROPN, CMP #### [facility] [address] [place] [address] Dr. Jersey Butcher ATYPICAL LYMPH % 1 % Normal The [facility] Comment on above: Performed By: #### T SH, BNP, HSTROPN, CMP #### [facility] [address] [address] [address] Jersey Butcher BAND # 0.0 103/ul Normal 0.0-0.3 [facility] Comment on above: Performed By: #### T SH, BNP, HSTROPN, CMP #### [facility] [address] [place] [address] Dr. Jersey Butcher BAND % 0 % Normal 0-5 [facility] Comment on above: Performed By: #### T SH, BNP, HSTROPN, CMP #### [facility] [address] [address] [address] Jersey Butcher BASOM # 0.00 103/ul Normal 0.00-0.10 [facility] Comment on above: Performed By: #### T SH, BNP, HSTROPN, CMP #### [facility] [address] [place] [address] Dr. Jersey Butcher BASOM % 0.0 % Critically low 0.2-2.0 [facility] Comment on above: Performed By: #### T SH, BNP, HSTROPN, CMP #### [facility] [address] [address] [address] Jersey Butcher BLAST # Normal [facility] Comment on above: Performed By: #### T SH, BNP, HSTROPN, CMP #### [facility] [address] [address] [address] Jersey Butcher BLAST % Normal [facility] Comment on above: Performed By: #### T SH, BNP, HSTROPN, CMP #### [facility] [address] [address] [address] Jersey Butcher CORRECTED WBC Normal 4.0-11.0 [facility] Comment on above: Performed By: #### T SH, BNP, HSTROPN, CMP #### [facility] [address] [address] [address] Jersey Butcher EOS # 0.00 103/ul Normal 0.00-0.70 [facility] Comment on above: Performed By: #### T SH, BNP, HSTROPN, CMP #### [facility] [address] [address] [address] Jersey Butcher EOS% 0.0 % Critically low 0.9-7.0 [facility] Comment on above: Performed By: #### T SH, BNP, HSTROPN, CMP #### [facility] [address] [address] [address] Jersey Butcher HCT 41.3 % Critically low 42.0-54.0 [facility] Comment on above: Performed By: #### T SH, BNP, HSTROPN, CMP #### [facility] [address] [address] [address] Jersey Butcher HGB 14.2 g/dl Normal 14.0-18.0 [facility] Comment on above: Performed By: #### T SH, BNP, HSTROPN, CMP #### [facility] [address] [address] [address] Jersey Butcher LYMPHM # 0.42 103/ul Critically low 1.20-3.80 [facility] Comment on above: Performed By: #### T SH, BNP, HSTROPN, CMP #### [facility] [address] [place] [address] Dr. Jersey Butcher LYMPHM% 3.0 % Critically low 20.5-60.0 [facility] Comment on above: Performed By: #### T SH, BNP, HSTROPN, CMP #### [facility] [address] [place] [address] Dr. Jersey Butcher MCH 30.9 pg Normal 25.9-34.0 [facility] Comment on above: Performed By: #### T SH, BNP, HSTROPN, CMP #### [facility] [address] [place] [address] Dr. Jersey Butcher MCHC 34.4 g/dl Normal 29.9-35.2 [facility] Comment on above: Performed By: #### T SH, BNP, HSTROPN, CMP #### [facility] [address] [place] [address] Dr. Jersey Butcher MCV 89.8 fL Normal 80.0-94.0 [facility] Comment on above: Performed By: #### T SH, BNP, HSTROPN, CMP #### [facility] [address] [place] [address] Dr. Jersey Butcher METAMYELOCYTE # Normal The [facility] Comment on above: Performed By: #### T SH, BNP, HSTROPN, CMP #### [facility] [address] [place] [address] Dr. Jersey Butcher METAMYELOCYTE % Normal [facility] Comment on above: Performed By: #### T SH, BNP, HSTROPN, CMP #### [facility] [address] [place] [address] Dr. Jersey Butcher MONOM# 0.14 103/ul Critically low 0.30-0.80 The [facility] Comment on above: Performed By: #### T SH, BNP, HSTROPN, CMP #### [facility] [address] [place] [address] Dr. Jersey Butcher MONOM% 1.0 % Critically low 1.7-12.0 [facility] Comment on above: Performed By: #### T SH, BNP, HSTROPN, CMP #### [facility] [address] [place] [address] Dr. Jersey Butcher MPV 10.4 fL Normal 9.5-13.5 [facility] Comment on above: Performed By: #### T SH, BNP, HSTROPN, CMP #### [facility] [address] [place] [address] Dr. Jersey Butcher MYELOCYTE # Normal [facility] Comment on above: Performed By: #### T SH, BNP, HSTROPN, CMP #### [facility] [address] [place] [address] Dr. Jersey Butcher MYELOCYTE % Normal [facility] Comment on above: Performed By: #### T SH, BNP, HSTROPN, CMP #### [facility] [address] [place] [address] Dr. Jersey Butcher NRBC Normal [facility] Comment on above: Performed By: #### T SH, BNP, HSTROPN, CMP #### [facility] [address] [place] [address] Dr. Jersey Butcher PLT 209 103/ul Normal 150-450 [facility] Comment on above: Performed By: #### T SH, BNP, HSTROPN, CMP #### [facility] [address] [place] [address] Dr. Jersey Butcher RBC 4.60 106/ul Critically low 4.70-6.10 The [facility] Comment on above: Performed By: #### T SH, BNP, HSTROPN, CMP #### [facility] [address] [place] [address] Dr. Jersey Butcher RDW 11.9 % Normal 11.0-15.0 [facility] Comment on above: Performed By: #### T SH, BNP, HSTROPN, CMP #### [facility] [address] [place] [address] Dr. Jersey Butcher SEG # 13.30 103/ul Critically high 1.40-6.50 [facility] Comment on above: Performed By: #### T SH, BNP, HSTROPN, CMP #### [facility] [address] [place] [address] Dr. Jersey Butcher SEG % 95.0 % Critically high 43.0-75.0 [facility] Comment on above: Performed By: #### T SH, BNP, HSTROPN, CMP #### [facility] [address] [place] [address] Dr. Jersey Butcher WBC 14.0 103/ul Critically high 4.0-11.0 [facility] Comment on above: Performed By: #### T SH, BNP, HSTROPN, CMP #### [facility] [address] [place] [address] Dr. Jersey Butcher PROF 14(COMP METB)on 022 Albumin [Mass/Vol] 3.0 g/dL Critically low 3.4-5.0 [facility] Comment on above: Performed By: #### T SH, BNP, HSTROPN, CMP #### [facility] [address] [place] [address] Dr. Jersey Butcher Albumin/Globulin [Mass ratio] 0.8 {ratio} Normal [facility] Comment on above: Performed By: #### T SH, BNP, HSTROPN, CMP #### [facility] [address] [place] [address] Dr. Jersey Butcher ALP [Catalytic activity/Vol] 91 U/L Normal 46-116 [facility] Comment on above: Performed By: #### T SH, BNP, HSTROPN, CMP #### [facility] [address] [place] [address] Dr. Jersey Butcher ALT [Catalytic activity/Vol] 43 U/L Normal 16-63 [facility] Comment on above: Performed By: #### T SH, BNP, HSTROPN, CMP #### [facility] [address] [place] [address] Dr. Jersey Butcher Anion gap [Moles/Vol] 8.1 mmol/L Normal [facility] Comment on above: Performed By: #### T SH, BNP, HSTROPN, CMP #### [facility] [address] [address] [address] Jersey Butcher AST [Catalytic activity/Vol] 18 U/L Normal 15-37 [facility] Comment on above: Performed By: #### T SH, BNP, HSTROPN, CMP #### [facility] [address] [address] [address] Jersey Butcher Bilirubin [Mass/Vol] 0.4 mg/dL Normal 0.2-1.0 [facility] Comment on above: Performed By: #### T SH, BNP, HSTROPN, CMP #### [facility] [address] [place] [address] Dr. Jersey Butcher Calcium [Mass/Vol] 8.4 mg/dL Critically low 8.5-10.1 [facility] Comment on above: Performed By: #### T SH, BNP, HSTROPN, CMP #### [facility] [address] [place] [address] Dr. Jersey Butcher Chloride [Moles/Vol] 94 mmol/L Critically low 98-107 [facility] Comment on above: Performed By: #### T SH, BNP, HSTROPN, CMP #### [facility] [address] [place] [address] Dr. Jersey Butcher CO2 [Moles/Vol] 33.0 mmol/L Critically high 21.0-32.0 [facility] Comment on above: Performed By: #### T SH, BNP, HSTROPN, CMP #### [facility] [address] [address] [address] Jersey Butcher Creatinine [Mass/Vol] 1.15 mg/dL Normal 0.70-1.30 [facility] Comment on above: Performed By: #### T SH, BNP, HSTROPN, CMP #### [facility] [address] [place] [address] Dr. Jersey Butcher EGFR-AF CHADIAN >60 Normal >=60 [facility] Comment on above: Performed By: #### T SH, BNP, HSTROPN, CMP #### [facility] [address] [place] [address] Dr. Jersey Butcher EGFR-NON AF CHADIAN >60 Normal >=60 [facility] Comment on above: Performed By: #### T SH, BNP, HSTROPN, CMP #### [facility] [address] [place] [address] Dr. Jersey Butcher Globulin (S) [Mass/Vol] 3.6 g/dL Normal [facility] Comment on above: Performed By: #### T SH, BNP, HSTROPN, CMP #### [facility] [address] [place] [address] Dr. Jersey Butcher Glucose [Mass/Vol] 193 mg/dL Critically high 74-106 [facility] Comment on above: Performed By: #### T SH, BNP, HSTROPN, CMP #### [facility] [address] [place] [address] Dr. Jersey Butcher Potassium [Moles/Vol] 3.1 mmol/L Critically low 3.5-5.1 [facility] Comment on above: Performed By: #### T SH, BNP, HSTROPN, CMP #### [facility] [address] [place] [address] Dr. Jersey Butcher Protein [Mass/Vol] 6.6 g/dL Normal 6.4-8.2 [facility] Comment on above: Performed By: #### T SH, BNP, HSTROPN, CMP #### [facility] [address] [place] [address] Dr. Jersey Butcher Sodium [Moles/Vol] 132 mmol/L Critically low 136-145 [facility] Comment on above: Performed By: #### T SH, BNP, HSTROPN, CMP #### [facility] [address] [place] [address] Dr. Jersey Butcher Urea nitrogen [Mass/Vol] 22.0 mg/dL Critically high 7.0-18.0 [facility] Comment on above: Performed By: #### T SH, BNP, HSTROPN, CMP #### [facility] [address] [address] [address] Jersey Butcher Urea nitrogen/Creatinine [Mass ratio] 19.1 mg/mg Normal [facility] Comment on above: Performed By: #### T SH, BNP, HSTROPN, CMP #### [facility] [address] [address] [address] Jersey Butcher QUANTIFERON TB GOLD PLUSon 1 08-05-2021 QuantiFERON Criteria Comment Normal [facility] Comment on above: Result Comment: Prateek [...] #### T SH, BNP, HSTROPN, CMP #### [facility] [address] [place] [address] Dr. Jersey Butcher QuantiFERON Incubation Incubation performed. Normal [facility] Comment on above: Performed By: #### T SH, BNP, HSTROPN, CMP #### [facility] [address] [place] [address] Dr. Jersey Butcher QuantiFERON Mitogen Value 4.42 IU/mL Normal [facility] Comment on above: Performed By: #### T SH, BNP, HSTROPN, CMP #### [facility] [address] [place] [address] Dr. Jersey Butcher QuantiFERON Nil Value 0.00 IU/mL Normal [facility] Comment on above: Performed By: #### T SH, BNP, HSTROPN, CMP #### [facility] [address] [place] [address] Dr. Jersey Butcher QuantiFERON TB1 Ag Value 0.00 IU/mL Normal [facility] Comment on above: Performed By: #### T SH, BNP, HSTROPN, CMP #### [facility] [address] [place] [address] Dr. Jersey Butcher QuantiFERON TB2 Ag Value 0.01 IU/mL Normal [facility] Comment on above: Performed By: #### T SH, BNP, HSTROPN, CMP #### [facility] [address] [place] [address] Dr. Jersey Butcher QuantiFERON-TB Gold Plus Negative Normal Negative [facility] Comment on above: Result Comment: No r esponse to M tuberculosis antigens detected. Infection with M tuberculosis is unlikely, but high risk individuals should be considered for additional testing (ATS/IDSA/CDC Clinical Practice Guidelines, 2017). The reference range is an Antigen minus Nil result of <0.35 IU/mL. Chemiluminescence immunoassay methodology Performed By: #### T SH, BNP, HSTROPN, CMP #### [facility] [address] [place] [address] Dr. Jersey Butcher BNPon 06-03-2022 Natriuretic peptide B (Bld) [Mass/Vol] 273.0 pg/mL Normal <=900.0 [facility] Comment on above: Performed By: #### D DIM #### [facility] [address] [place] [address] Dr. Jersey Butcher CBC W MANUAL DIFFon 06-03-20 ATYPICAL LYMPH # Normal [facility] Comment on above: Performed By: #### C MADDIE #### [facility] [address] [place] [address] Dr. Jersey Butcher ATYPICAL LYMPH % Normal [facility] Comment on above: Performed By: #### C BCMAN #### [facility] [address] [place] [address] Dr. Jersey Butcher BAND # 0.0 103/ul Normal 0.0-0.3 [facility] Comment on above: Performed By: #### C BCMAN #### [facility] [address] [place] [address] Dr. Jersey Butcher BAND % 0 % Normal 0-5 [facility] Comment on above: Performed By: #### C MADDIE #### [facility] [address] [place] [address] Dr. Jersey Butcher BASOM # 0.00 103/ul Normal 0.00-0.10 [facility] Comment on above: Performed By: #### C BCMAN #### [facility] [address] [address] [address] Jersey Butcher BASOM % 0.0 % Critically low 0.2-2.0 The [facility] Comment on above: Performed By: #### C BCMAN #### [facility] [address] [address] [address] Jersey Butcher BLAST # Normal [facility] Comment on above: Performed By: #### C BCMAN #### [facility] [address] [place] [address] Dr. Jersey Butcher BLAST % Normal [facility] Comment on above: Performed By: #### C BCROSIE #### [facility] [address] [place] [address] Dr. Jersey Butcher CORRECTED WBC Normal 4.0-11.0 [facility] Comment on above: Performed By: #### C BCROSIE #### [facility] [address] [place] [address] Dr. Jersey Butcher EOS # 0.00 103/ul Normal 0.00-0.70 [facility] Comment on above: Performed By: #### C BCROSIE #### [facility] [address] [place] [address] Dr. Jersey Butcher EOS% 0.0 % Critically low 0.9-7.0 [facility] Comment on above: Performed By: #### C BCROSIE #### [facility] [address] [place] [address] Dr. Jersey Butcher HCT 41.2 % Critically low 42.0-54.0 [facility] Comment on above: Performed By: #### C BCMAN #### [facility] [address] [place] [address] Dr. Jersey Butcher HGB 14.3 g/dl Normal 14.0-18.0 [facility] Comment on above: Performed By: #### C BCMAN #### [facility] [address] [address] [address] Jersey Butcher LYMPHM # 0.85 103/ul Critically low 1.20-3.80 [facility] Comment on above: Performed By: #### C MADDIE #### [facility] [address] [address] [address] Jersey Butcher LYMPHM% 7.0 % Critically low 20.5-60.0 [facility] Comment on above: Performed By: #### C MADDIE #### [facility] [address] [place] [address] Dr. Jersey Butcher MCH 31.3 pg Normal 25.9-34.0 [facility] Comment on above: Performed By: #### C MADDIE #### [facility] [address] [place] [address] Dr. Jersey Butcher MCHC 34.7 g/dl Normal 29.9-35.2 [facility] Comment on above: Performed By: #### C MADDIE #### [facility] [address] [place] [address] Dr. Jersey Butcher MCV 90.2 fL Normal 80.0-94.0 [facility] Comment on above: Performed By: #### C MADDIE #### [facility] [address] [place] [address] Dr. Jersey Butcher METAMYELOCYTE # Normal [facility] Comment on above: Performed By: #### C MADDIE #### [facility] [address] [place] [address] Dr. Jersey Butcher METAMYELOCYTE % Normal [facility] Comment on above: Performed By: #### C MADDIE #### [facility] [address] [place] [address] Dr. Jersey Butcher MONOM# 0.24 103/ul Critically low 0.30-0.80 [facility] Comment on above: Performed By: #### C MADDIE #### [facility] [address] [place] [address] Dr. Jersey Butcher MONOM% 2.0 % Normal 1.7-12.0 [facility] Comment on above: Performed By: #### C MADDIE #### [facility] [address] [address] [address] Jersey Butcher MPV 10.8 fL Normal 9.5-13.5 [facility] Comment on above: Performed By: #### C MADDIE #### [facility] [address] [address] [address] Jersey Butcher MYELOCYTE # Normal [facility] Comment on above: Performed By: #### C MADDIE #### [facility] [address] [address] [address] Jersey Butcher MYELOCYTE % Normal [facility] Comment on above: Performed By: #### C MADDIE #### [facility] [address] [address] [address] Jersey Butcher NRBC Normal [facility] Comment on above: Performed By: #### C MADDIE #### [facility] [address] [address] [address] Jersey Butcher PLT 177 103/ul Normal 150-450 [facility] Comment on above: Performed By: #### C MADDIE #### [facility] [address] [address] [address] Jersey Butcher RBC 4.57 106/ul Critically low 4.70-6.10 [facility] Comment on above: Performed By: #### C MADDIE #### [facility] [address] [address] [address] Jersey Butcher RDW 11.8 % Normal 11.0-15.0 [facility] Comment on above: Performed By: #### C MADDIE #### [facility] [address] [address] [address] Jersey Butcher SEG # 11.10 103/ul Critically high 1.40-6.50 [facility] Comment on above: Performed By: #### C MADDIE #### [facility] [address] [address] [address] Jersey Butcher SEG % 91.0 % Critically high 43.0-75.0 [facility] Comment on above: Performed By: #### C MADDIE #### [facility] [address] [address] [address] Jersey Butcher WBC 12.2 103/ul Critically high 4.0-11.0 [facility] Comment on above: Performed By: #### C PHILMAN #### [facility] [address] [place] [address] Dr. Jersey Butcher PROF 14(COMP METB)on 022 Albumin [Mass/Vol] 2.9 g/dL Critically low 3.4-5.0 [facility] Comment on above: Performed By: #### D DIM #### [facility] [address] [place] [address] Dr. Jersey Butcher Albumin/Globulin [Mass ratio] 0.8 {ratio} Normal [facility] Comment on above: Performed By: #### D DIM #### [facility] [address] [place] [address] Dr. Jersey Butcher ALP [Catalytic activity/Vol] 90 U/L Normal 46-116 [facility] Comment on above: Performed By: #### D DIM #### [facility] [address] [place] [address] Dr. Jersey Butcher ALT [Catalytic activity/Vol] 40 U/L Normal 16-63 [facility] Comment on above: Performed By: #### D DIM #### [facility] [address] [place] [address] Dr. Jersey Butcher Anion gap [Moles/Vol] 6.7 mmol/L Normal [facility] Comment on above: Performed By: #### D DIM #### [facility] [address] [place] [address] Dr. Jersey Butcher AST [Catalytic activity/Vol] 20 U/L Normal 15-37 [facility] Comment on above: Performed By: #### D DIM #### [facility] [address] [place] [address] Dr. Jersey Butcher Bilirubin [Mass/Vol] 0.4 mg/dL Normal 0.2-1.0 [facility] Comment on above: Performed By: #### D DIM #### [facility] [address] [address] [address] Jersey Butcher Calcium [Mass/Vol] 8.6 mg/dL Normal 8.5-10.1 [facility] Comment on above: Performed By: #### D DIM #### [facility] [address] [address] [address] Jersey Butcher Chloride [Moles/Vol] 95 mmol/L Critically low 98-107 [facility] Comment on above: Performed By: #### D DIM #### [facility] [address] [address] [address] Jersey Butcher CO2 [Moles/Vol] 33.6 mmol/L Critically high 21.0-32.0 [facility] Comment on above: Performed By: #### D DIM #### [facility] [address] [place] [address] Dr. Jersey Butcher Creatinine [Mass/Vol] 1.14 mg/dL Normal 0.70-1.30 [facility] Comment on above: Performed By: #### D DIM #### [facility] [address] [place] [address] Dr. Jersey Butcher EGFR-AF CHADIAN >60 Normal >=60 [facility] Comment on above: Performed By: #### D DIM #### [facility] [address] [place] [address] Dr. Jersey Butcher EGFR-NON AF CHADIAN >60 Normal >=60 [facility] Comment on above: Performed By: #### D DIM #### [facility] [address] [place] [address] Dr. Jersey Butcher Globulin (S) [Mass/Vol] 3.7 g/dL Normal [facility] Comment on above: Performed By: #### D DIM #### [facility] [address] [place] [address] Dr. Jersey Butcher Glucose [Mass/Vol] 205 mg/dL Critically high 74-106 [facility] Comment on above: Performed By: #### D DIM #### [facility] [address] [place] [address] Dr. Jersey Butcher Potassium [Moles/Vol] 3.3 mmol/L Critically low 3.5-5.1 [facility] Comment on above: Performed By: #### D DIM #### [facility] [address] [place] [address] Dr. Jersey Butcher Protein [Mass/Vol] 6.6 g/dL Normal 6.4-8.2 [facility] Comment on above: Performed By: #### D DIM #### [facility] [address] [place] [address] Dr. Jersey Butcher Sodium [Moles/Vol] 132 mmol/L Critically low 136-145 [facility] Comment on above: Performed By: #### D DIM #### [facility] [address] [place] [address] Dr. Jersey Butcher Urea nitrogen [Mass/Vol] 24.0 mg/dL Critically high 7.0-18.0 [facility] Comment on above: Performed By: #### D DIM #### [facility] [address] [place] [address] Dr. Jersey Butcher Urea nitrogen/Creatinine [Mass ratio] 21.1 mg/mg Normal [facility] Comment on above: Performed By: #### D DIM #### [facility] [address] [place] [address] Dr. Jersey Butcher BNPon 06-02-2022 Natriuretic peptide B (Bld) [Mass/Vol] 85.0 pg/mL Normal <=900.0 [facility] Comment on above: Performed By: #### C VDTBH #### [facility] [address] [place] [address] Dr. Jersey Butcher CBC AUTO DIFFon 06-02-2022 BASO # 0.0 103/ul Normal 0.0-0.1 [facility] Comment on above: Performed By: #### T SH, BNP, HSTROPN, CMP #### [facility] [address] [place] [address] Dr. Jersey Butcher Basophils/100 WBC (Bld) 0.5 % Normal 0.2-2.0 [facility] Comment on above: Performed By: #### T SH, BNP, HSTROPN, CMP #### [facility] [address] [place] [address] Dr. Jersey Butcher EO # 0.0 103/ul Normal 0.0-0.7 [facility] Comment on above: Performed By: #### T SH, BNP, HSTROPN, CMP #### [facility] [address] [place] [address] Dr. Jersey Butcher Eosinophils/100 WBC (Bld) 0.0 % Critically low 0.9-7.0 [facility] Comment on above: Performed By: #### T SH, BNP, HSTROPN, CMP #### [facility] [address] [place] [address] Dr. Jersey Butcher Erythrocyte distribution width (RBC) [Ratio] 11.5 % Normal 11.0-15.0 [facility] Comment on above: Performed By: #### T SH, BNP, HSTROPN, CMP #### [facility] [address] [place] [address] Dr. Jersey Butcher Hematocrit (Bld) [Volume fraction] 42.8 % Normal 42.0-54.0 [facility] Comment on above: Performed By: #### T SH, BNP, HSTROPN, CMP #### [facility] [address] [place] [address] Dr. Jersey Butcher Hemoglobin (Bld) [Mass/Vol] 14.6 g/dL Normal 14.0-18.0 [facility] Comment on above: Performed By: #### T SH, BNP, HSTROPN, CMP #### [facility] [address] [place] [address] Dr. Jersey Butcher IG # 0.00 10e3/ul Normal 0.00-0.03 [facility] Comment on above: Performed By: #### T SH, BNP, HSTROPN, CMP #### [facility] [address] [place] [address] Dr. Jersey Butcher IG % 0.0 % Normal 0.0-0.5 [facility] Comment on above: Performed By: #### T SH, BNP, HSTROPN, CMP #### [facility] [address] [place] [address] Dr. Jersey Butcher LYMPH # 0.4 103/ul Critically low 1.2-3.8 [facility] Comment on above: Performed By: #### T SH, BNP, HSTROPN, CMP #### [facility] [address] [place] [address] Dr. Jersey Butcher Lymphocytes/100 WBC (Bld) 18.4 % Critically low 20.5-60.0 [facility] Comment on above: Performed By: #### T SH, BNP, HSTROPN, CMP #### [facility] [address] [place] [address] Dr. Jersey Butcher MANUAL DIFF REQ NO [facility] Comment on above: Performed By: #### T SH, BNP, HSTROPN, CMP #### [facility] [address] [place] [address] Dr. Jersey Butcher MCH (RBC) [Entitic mass] 30.9 pg Normal 25.9-34.0 [facility] Comment on above: Performed By: #### T SH, BNP, HSTROPN, CMP #### [facility] [address] [place] [address] Dr. Jersey Butcher MCHC (RBC) [Mass/Vol] 34.1 g/dL Normal 29.9-35.2 [facility] Comment on above: Performed By: #### T SH, BNP, HSTROPN, CMP #### [facility] [address] [place] [address] Dr. Jersey Butcher MCV (RBC) [Entitic vol] 90.7 fL Normal 80.0-94.0 [facility] Comment on above: Performed By: #### T SH, BNP, HSTROPN, CMP #### [facility] [address] [place] [address] Dr. Jersey Butcher MONO # 0.1 103/ul Critically low 0.3-0.8 [facility] Comment on above: Performed By: #### T SH, BNP, HSTROPN, CMP #### [facility] [address] [place] [address] Dr. Jersey Butcher Monocytes/100 WBC (Bld) 4.6 % Normal 1.7-12.0 [facility] Comment on above: Performed By: #### T SH, BNP, HSTROPN, CMP #### [facility] [address] [place] [address] Dr. Jersey Butcher NEUT # 1.7 103/ul Normal 1.4-6.5 [facility] Comment on above: Performed By: #### T SH, BNP, HSTROPN, CMP #### [facility] [address] [place] [address] Dr. Jersey Butcher Neutrophils/100 WBC (Bld) 76.5 % Critically high 43.0-75.0 [facility] Comment on above: Performed By: #### T SH, BNP, HSTROPN, CMP #### [facility] [address] [place] [address] Dr. Jersey Butcher Platelet mean volume (Bld) [Entitic vol] 10.1 fL Normal 9.5-13.5 [facility] Comment on above: Performed By: #### T SH, BNP, HSTROPN, CMP #### [facility] [address] [place] [address] Dr. Jersey Butcher PLT 160 103/ul Normal 150-450 [facility] Comment on above: Performed By: #### T SH, BNP, HSTROPN, CMP #### [facility] [address] [place] [address] Dr. Jersey Butcher RBC 4.72 106/ul Normal 4.70-6.10 [facility] Comment on above: Performed By: #### T SH, BNP, HSTROPN, CMP #### [facility] [address] [place] [address] Dr. Jersey Butcher WBC 2.2 103/ul Critically low 4.0-11.0 [facility] Comment on above: Performed By: #### T SH, BNP, HSTROPN, CMP #### [facility] [address] [place] [address] Dr. Jersey Butcher PROF 14(COMP METB)on 022 Albumin [Mass/Vol] 2.7 g/dL Critically low 3.4-5.0 [facility] Comment on above: Performed By: #### C VDTBH #### [facility] [address] [place] [address] Dr. Jersey Butcher Albumin/Globulin [Mass ratio] 0.7 {ratio} Normal [facility] Comment on above: Performed By: #### C VDTBH #### [facility] [address] [place] [address] Dr. Jersey Butcher ALP [Catalytic activity/Vol] 102 U/L Normal 46-116 [facility] Comment on above: Performed By: #### C VDTBH #### [facility] [address] [place] [address] Dr. Jersey Butcher ALT [Catalytic activity/Vol] 45 U/L Normal 16-63 [facility] Comment on above: Performed By: #### C VDTBH #### [facility] [address] [place] [address] Dr. Jersey Butcher Anion gap [Moles/Vol] 7.4 mmol/L Normal [facility] Comment on above: Performed By: #### C VDTBH #### [facility] [address] [place] [address] Dr. Jersey Butcher AST [Catalytic activity/Vol] 30 U/L Normal 15-37 [facility] Comment on above: Performed By: #### C VDTBH #### [facility] [address] [place] [address] Dr. Jersey Butcher Bilirubin [Mass/Vol] 0.3 mg/dL Normal 0.2-1.0 [facility] Comment on above: Performed By: #### C VDTBH #### [facility] [address] [place] [address] Dr. Jersey Butcher Calcium [Mass/Vol] 8.3 mg/dL Critically low 8.5-10.1 [facility] Comment on above: Performed By: #### C VDTBH #### [facility] [address] [address] [address] Jersey Butcher Chloride [Moles/Vol] 94 mmol/L Critically low 98-107 [facility] Comment on above: Performed By: #### C VDTBH #### [facility] [address] [address] [address] Jersey Butcher CO2 [Moles/Vol] 32.8 mmol/L Critically high 21.0-32.0 [facility] Comment on above: Performed By: #### C VDTBH #### [facility] [address] [address] [address] Jersey Butcher Creatinine [Mass/Vol] 1.23 mg/dL Normal 0.70-1.30 [facility] Comment on above: Performed By: #### C VDTBH #### [facility] [address] [place] [address] Dr. Jersey Butcher EGFR-AF CHADIAN >60 Normal >=60 [facility] Comment on above: Performed By: #### C VDTBH #### [facility] [address] [place] [address] Dr. Jersey Butcher EGFR-NON AF CHADIAN 60 mL/min/1.73m2 Normal >=60 [facility] Comment on above: Performed By: #### C VDTBH #### [facility] [address] [place] [address] Dr. Jersey Butcher Globulin (S) [Mass/Vol] 3.9 g/dL Normal [facility] Comment on above: Performed By: #### C VDTBH #### [facility] [address] [place] [address] Dr. Jersey Butcher Glucose [Mass/Vol] 314 mg/dL Critically high 74-106 [facility] Comment on above: Performed By: #### C VDTBH #### [facility] [address] [place] [address] Dr. Jersey Butcher Potassium [Moles/Vol] 3.2 mmol/L Critically low 3.5-5.1 [facility] Comment on above: Performed By: #### C VDTBH #### [facility] [address] [place] [address] Dr. Jersey Butcher Protein [Mass/Vol] 6.6 g/dL Normal 6.4-8.2 [facility] Comment on above: Performed By: #### C VDTBH #### [facility] [address] [place] [address] Dr. Jersey Butcher Sodium [Moles/Vol] 131 mmol/L Critically low 136-145 [facility] Comment on above: Performed By: #### C VDTBH #### [facility] [address] [place] [address] Dr. Jersey Butcher Urea nitrogen [Mass/Vol] 20.0 mg/dL Critically high 7.0-18.0 [facility] Comment on above: Performed By: #### C VDTBH #### [facility] [address] [place] [address] Dr. Jersey Butcher Urea nitrogen/Creatinine [Mass ratio] 16.3 mg/mg Normal [facility] Comment on above: Performed By: #### C VDTBH #### [facility] [address] [place] [address] Dr. Jersey Butcher BNPon 06-01-2022 Natriuretic peptide B (Bld) [Mass/Vol] 70.0 pg/mL Normal <=900.0 [facility] Comment on above: Performed By: #### T SH, BNP, HSTROPN, CMP #### [facility] [address] [place] [address] Dr. Jersey Butcher CARDIAC VIDHI 3-6on 2 CK [Catalytic activity/Vol] 193 U/L Normal 39-308 [facility] Comment on above: Performed By: #### T SH, BNP, HSTROPN, CMP #### [facility] [address] [place] [address] Dr. Jersey Butcher CK.MB [Mass/Vol] 2.87 ng/mL Normal <=3.60 [facility] Comment on above: Performed By: #### T SH, BNP, HSTROPN, CMP #### [facility] [address] [address] [address] Jersey Butcher HSTROP 11.7 pg/mL Normal 4.0-76.1 [facility] Comment on above: Result Comment: CUT- OFF POINTS HAVE BEEN ESTABLISHED BASED ON THE FOURTH UNIVERSAL DEFINITIONS OF MYOCARDIAL INFARCTION. THE UPPER REFERENCE LIMIT (URL) OF TROPONIN, DEFINED THE 99TH PERCENTILE OF cTnI DISTRIBUTION IN A REFERENCE POPULATION, HAS BEEN CONFIRMED THE DECISION THRESHOLD FOR WI DIAGNOSIS. Performed By: #### T SH, BNP, HSTROPN, CMP #### [facility] [address] [place] [address] Dr. Jersey Butcher CK [Catalytic activity/Vol] 218 U/L Normal 39-308 [facility] Comment on above: Performed By: #### T SH, BNP, HSTROPN, CMP #### [facility] [address] [place] [address] Dr. Jersey Butcher CK.MB [Mass/Vol] 3.01 ng/mL Normal <=3.[address] [facility] Comment on above: Performed By: #### T SH, BNP, HSTROPN, CMP #### [facility] [address] [place] [address] Dr. Jersey Butcher HSTROP 13.9 pg/mL Normal 4.0-76.1 [facility] Comment on above: Result Comment: CUT- OFF POINTS HAVE BEEN ESTABLISHED BASED ON THE FOURTH UNIVERSAL DEFINITIONS OF MYOCARDIAL INFARCTION. THE UPPER REFERENCE LIMIT (URL) OF TROPONIN, DEFINED THE 99TH PERCENTILE OF cTnI DISTRIBUTION IN A REFERENCE POPULATION, HAS BEEN CONFIRMED THE DECISION THRESHOLD FOR WI DIAGNOSIS. Performed By: #### T SH, BNP, HSTROPN, CMP #### [facility] [address] [place] [address] Dr. Jersey Butcher CBC W MANUAL DIFFon 06-01-20 22 ATYPICAL LYMPH # Normal [facility] Comment on above: Performed By: #### T SH, BNP, HSTROPN, CMP #### [facility] [address] [place] [address] Dr. Jersey Butcher ATYPICAL LYMPH % Normal [facility] Comment on above: Performed By: #### T SH, BNP, HSTROPN, CMP #### [facility] [address] [address] [address] Jersey Butcher BAND # 0.1 103/ul Normal 0.0-0.3 [facility] Comment on above: Performed By: #### T SH, BNP, HSTROPN, CMP #### [facility] [address] [place] [address] Dr. Jersey Butcher BAND % 2 % Normal 0-5 [facility] Comment on above: Performed By: #### T SH, BNP, HSTROPN, CMP #### [facility] [address] [place] [address] Dr. Jersey Butcher BASOM # 0.00 103/ul Normal 0.00-0.10 [facility] Comment on above: Performed By: #### T SH, BNP, HSTROPN, CMP #### [facility] [address] [place] [address] Dr. Jersey Butcher BASOM % 0.0 % Critically low 0.2-2.0 [facility] Comment on above: Performed By: #### T SH, BNP, HSTROPN, CMP #### [facility] [address] [place] [address] Dr. Jersey Butcher BLAST # Normal [facility] Comment on above: Performed By: #### T SH, BNP, HSTROPN, CMP #### [facility] [address] [place] [address] Dr. Jersey Butcher BLAST % Normal [facility] Comment on above: Performed By: #### T SH, BNP, HSTROPN, CMP #### [facility] [address] [place] [address] Dr. Jersey Butcher CORRECTED WBC Normal 4.0-11.0 [facility] Comment on above: Performed By: #### T SH, BNP, HSTROPN, CMP #### [facility] [address] [place] [address] Dr. Jersey Butcher EOS # 0.00 103/ul Normal 0.00-0.70 [facility] Comment on above: Performed By: #### T SH, BNP, HSTROPN, CMP #### [facility] [address] [place] [address] Dr. Jersey Butcher EOS% 0.0 % Critically low 0.9-7.0 [facility] [place] Comment on above: Performed By: #### T SH, BNP, HSTROPN, CMP #### [facility] [address] [place] [address] Dr. Jersey Butcher HCT 45.5 % Normal 42.0-54.0 [facility] Comment on above: Performed By: #### T SH, BNP, HSTROPN, CMP #### [facility] [address] [place] [address] Dr. Jersey Butcher HGB 16.1 g/dl Normal 14.0-18.0 [facility] Comment on above: Performed By: #### T SH, BNP, HSTROPN, CMP #### [facility] [address] [place] [address] Dr. Jersey Butcher LYMPHM # 1.15 103/ul Critically low 1.20-3.80 [facility] Comment on above: Performed By: #### T SH, BNP, HSTROPN, CMP #### [facility] [address] [place] [address] Dr. Jersey Butcher LYMPHM% 25.0 % Normal 20.5-60.0 [facility] Comment on above: Performed By: #### T SH, BNP, HSTROPN, CMP #### [facility] [address] [place] [address] Dr. Jersey Butcher MCH 31.5 pg Normal 25.9-34.0 [facility] Comment on above: Performed By: #### T SH, BNP, HSTROPN, CMP #### [facility] [address] [place] [address] Dr. Jersey Butcher MCHC 35.4 g/dl Critically high 29.9-35.2 [facility] Comment on above: Performed By: #### T SH, BNP, HSTROPN, CMP #### [facility] [address] [place], [place] [id number] Dr. Jersey Butcher MCV 89.0 fL Normal 80.0-94.0 [facility] Comment on above: Performed By: #### T SH, BNP, HSTROPN, CMP #### [facility] [address] [place] [address] Dr. Jersey Butcher METAMYELOCYTE # Normal [facility] Comment on above: Performed By: #### T SH, BNP, HSTROPN, CMP #### [facility] [address] [place] [address] Dr. Jersey Butcher METAMYELOCYTE % Normal [facility] Comment on above: Performed By: #### T SH, BNP, HSTROPN, CMP #### [facility] [address] [place] [address] Dr. Jersey Butcher MONOM# 0.32 103/ul Normal 0.30-0.80 [facility] Comment on above: Performed By: #### T SH, BNP, HSTROPN, CMP #### [facility] [address] [place] [address] Dr. Jersey Butcher MONOM% 7.0 % Normal 1.7-12.0 [facility] Comment on above: Performed By: #### T SH, BNP, HSTROPN, CMP #### [facility] [address] [place] [address] Dr. Jersey Butcher MPV 10.4 fL Normal 9.5-13.5 [facility] Comment on above: Performed By: #### T SH, BNP, HSTROPN, CMP #### [facility] [address] [place] [address] Dr. Jersey Butcher MYELOCYTE # Normal [facility] Comment on above: Performed By: #### T SH, BNP, HSTROPN, CMP #### [facility] [address] [place] [address] Dr. Jersey Butcher MYELOCYTE % Normal [facility] Comment on above: Performed By: #### T SH, BNP, HSTROPN, CMP #### [facility] [address] [place] [address] Dr. Jersey Butcher NRBC Normal [facility] Comment on above: Performed By: #### T SH, BNP, HSTROPN, CMP #### [facility] [address] [place] [address] Dr. Jersey Butcher PLT 195 103/ul Normal 150-450 [facility] Comment on above: Performed By: #### T SH, BNP, HSTROPN, CMP #### [facility] [address] [place] [address] Dr. Jersey Butcher RBC 5.11 106/ul Normal 4.70-6.10 [facility] Comment on above: Performed By: #### T SH, BNP, HSTROPN, CMP #### [facility] [address] [place] [address] Dr. Jersey Butcher RDW 11.6 % Normal 11.0-15.0 [facility] Comment on above: Performed By: #### T SH, BNP, HSTROPN, CMP #### [facility] [address] [place] [address] Dr. Jersey Butcher SEG # 3.04 103/ul Normal 1.40-6.50 [facility] Comment on above: Performed By: #### T SH, BNP, HSTROPN, CMP #### [facility] [address] [place] [address] Dr. Jersey Butcher SEG % 66.0 % Normal 43.0-75.0 [facility] Comment on above: Performed By: #### T SH, BNP, HSTROPN, CMP #### [facility] [address] [place] [address] Dr. Jersey Butcher WBC 4.6 103/ul Normal 4.0-11.0 [facility] Comment on above: Performed By: #### T SH, BNP, HSTROPN, CMP #### [facility] [address] [place] [address] Dr. Jersey Butcher CTA CHEST WO W [...] by: KESHAWN ALVAREZ Date: 2022-06-01 17:55 Normal [facility] CULTURE BLOODon 06-01-2022 Microscopic examination of blood, culture Culture Observations: NO GROWTH AT 5 DAYS. Normal [facility] Comment on above: Performed By: #### C MADDIE #### [facility] [address] [address] [address] Jersey Butcher Microscopic examination of blood, culture Culture Observations: NO GROWTH AT 5 DAYS. Normal [facility] Comment on above: Performed By: #### C MADDIE #### [facility] [address] [address] [address] Jersey Butcher Covid-19 PCR ([facility])on 05-18 SARS-CoV-2 (COVID-19) RNA PILI+probe Ql (Unsp spec) Not detected Normal NOT DETECTED [facility] Comment on above: Result Comment: When diagnostic [...] for this test is supported by the [place] of Health and Human Service's declaration that [...] used). Performed By: #### D DIM #### [facility] [address] [place] [address] Dr. Jersey Butcher LACTATE/LACTIC ACIDon 2021 Lactate [Moles/Vol] 1.3 mmol/L Normal 0.4-1.9 [facility] Comment on above: Performed By: #### T SH, BNP, HSTROPN, CMP #### [facility] [address] [place] [address] Dr. Jersey Butcher PH VENOUS BLOODon 06-01-2022 PCO2 VENOUS 45.8 mmHg Normal 40.0-52.0 [facility] Comment on above: Performed By: #### C VDTBH #### [facility] [address] [place] [address] Dr. Jersey Butcher pH VENOUS 7.508 Critically high 7.330-7.430 [facility] Comment on above: Performed By: #### C VDTBH #### [facility] [address] [place] [address] Dr. Jersey Butcher PROF 14(COMP METB)on 022 Albumin [Mass/Vol] 3.1 g/dL Critically low 3.4-5.0 [facility] Comment on above: Performed By: #### T SH, BNP, HSTROPN, CMP #### [facility] [address] [place] [address] Dr. Jersey Butcher Albumin/Globulin [Mass ratio] 0.8 {ratio} Normal [facility] Comment on above: Performed By: #### T SH, BNP, HSTROPN, CMP #### [facility] [address] [place] [address] Dr. Jersey Butcher ALP [Catalytic activity/Vol] 103 U/L Normal 46-116 [facility] Comment on above: Performed By: #### T SH, BNP, HSTROPN, CMP #### [facility] [address] [place] [address] Dr. Jersey Butcher ALT [Catalytic activity/Vol] 50 U/L Normal 16-63 [facility] Comment on above: Performed By: #### T SH, BNP, HSTROPN, CMP #### [facility] [address] [address] [address] Jersey Butcher Anion gap [Moles/Vol] 6.7 mmol/L Normal [facility] Comment on above: Performed By: #### T SH, BNP, HSTROPN, CMP #### [facility] [address] [address] [address] Jersey Butcher AST [Catalytic activity/Vol] 43 U/L Critically high 15-37 [facility] Comment on above: Performed By: #### T SH, BNP, HSTROPN, CMP #### [facility] [address] [place] [address] Dr. Jersey Butcher Bilirubin [Mass/Vol] 0.7 mg/dL Normal 0.2-1.0 [facility] Comment on above: Performed By: #### T SH, BNP, HSTROPN, CMP #### [facility] [address] [place] [address] Dr. Jersey Butcher Calcium [Mass/Vol] 8.7 mg/dL Normal 8.5-10.1 [facility] Comment on above: Performed By: #### T SH, BNP, HSTROPN, CMP #### [facility] [address] [place] [address] Dr. Jersey Butcher Chloride [Moles/Vol] 94 mmol/L Critically low 98-107 [facility] Comment on above: Performed By: #### T SH, BNP, HSTROPN, CMP #### [facility] [address] [place] [address] Dr. Jersey Butcher CO2 [Moles/Vol] 35.4 mmol/L Critically high 21.0-32.0 [facility] Comment on above: Performed By: #### T SH, BNP, HSTROPN, CMP #### [facility] [address] [place] [address] Dr. Jersey Butcher Creatinine [Mass/Vol] 1.05 mg/dL Normal 0.70-1.30 [facility] Comment on above: Performed By: #### T SH, BNP, HSTROPN, CMP #### [facility] [address] [place] [address] Dr. Jersey Butcher EGFR-AF CHADIAN >60 Normal >=60 [facility] Comment on above: Performed By: #### T SH, BNP, HSTROPN, CMP #### [facility] [address] [place] [address] Dr. Jersey Butcher EGFR-NON AF CHADIAN >60 Normal >=60 [facility] Comment on above: Performed By: #### T SH, BNP, HSTROPN, CMP #### [facility] [address] [place] [address] Dr. Jersey Butcher Globulin (S) [Mass/Vol] 3.9 g/dL Normal [facility] Comment on above: Performed By: #### T SH, BNP, HSTROPN, CMP #### [facility] [address] [place] [address] Dr. Jersey Butcher Glucose [Mass/Vol] 116 mg/dL Critically high 74-106 [facility] Comment on above: Performed By: #### T SH, BNP, HSTROPN, CMP #### [facility] [address] [place] [address] Dr. Jersey Butcher Potassium [Moles/Vol] 3.1 mmol/L Critically low 3.5-5.1 [facility] Comment on above: Performed By: #### T SH, BNP, HSTROPN, CMP #### [facility] [address] [place] [address] Dr. Jersey Butcher Protein [Mass/Vol] 7.0 g/dL Normal 6.4-8.2 [facility] Comment on above: Performed By: #### T SH, BNP, HSTROPN, CMP #### [facility] [address] [place] [address] Dr. Jersey Butcher Sodium [Moles/Vol] 133 mmol/L Critically low 136-145 [facility] Comment on above: Performed By: #### T SH, BNP, HSTROPN, CMP #### [facility] [address] [place] [address] Dr. Jersey Butcher Urea nitrogen [Mass/Vol] 19.0 mg/dL Critically high 7.0-18.0 [facility] Comment on above: Performed By: #### T SH, BNP, HSTROPN, CMP #### [facility] [address] [place] [address] Dr. Jersey Butcher Urea nitrogen/Creatinine [Mass ratio] 18.1 mg/mg Normal [facility] Comment on above: Performed By: #### T SH, BNP, HSTROPN, CMP #### [facility] [address] [place] [address] Dr. Jersey Butcher PROTIMEon 06-01-2022 INR Coag (PPP) [Relative time] 0.95 {INR} Normal [facility] Comment on above: Performed By: #### T SH, BNP, HSTROPN, CMP #### [facility] [address] [place] [address] Dr. Jersey Butcher INR GUIDELINES SEE BELOW Normal [facility] Comment on above: Result Comment: MARCIA RED INR: 2.0 - 3.0 CONDITIONS NOT LISTED BELOW 2.5 - 3.5 FOR PROSTHETIC HEART VALVE REPLACEMENT 2.5 - 3.5 RECURRENT THROMBOSIS Performed By: #### T SH, BNP, HSTROPN, CMP #### [facility] [address] [place] [address] Dr. Jersey Butcher PT Coag (PPP) [Time] 10.3 s Normal 9.0-11.6 [facility] Comment on above: Performed By: #### T SH, BNP, HSTROPN, CMP #### [facility] [address] [place] [address] Dr. Jersey Butcher PTTon 06-01-2022 aPTT Coag (Bld) [Time] 27.1 s Normal 22.3-36.2 [facility] Comment on above: Performed By: #### T SH, BNP, HSTROPN, CMP #### [facility] [address] [place] [address] Dr. Jersey Butcher TROPONIN, HIGH SENSITIVITYon 06-01-2022 HSTROP 14.8 pg/mL Normal 4.0-76.1 [facility] Comment on above: Result Comment: CUT- OFF POINTS HAVE BEEN ESTABLISHED BASED ON THE FOURTH UNIVERSAL DEFINITIONS OF MYOCARDIAL INFARCTION. THE UPPER REFERENCE LIMIT (URL) OF TROPONIN, DEFINED THE 99TH PERCENTILE OF cTnI DISTRIBUTION IN A REFERENCE POPULATION, HAS BEEN CONFIRMED THE DECISION THRESHOLD FOR [place] DIAGNOSIS. Performed By: #### T SH, BNP, HSTROPN, CMP #### [facility] [address] [address] [address] Jersey Butcher TSHon 06-01-2022 TSH 0.358 uIU/mL Normal 0.358-3.740 [facility] Comment on above: Performed By: #### T SH, BNP, HSTROPN, CMP #### [facility] [address] [address] [address] Jersey Butcher Covid-19 PCR ([facility])on 05-18 SARS-CoV-2 (COVID-19) RNA PILI+probe Ql (Unsp spec) Not detected Normal NOT DETECTED [facility] Comment on above: Result Comment: This test is not yet approved or cleared by the [place] FDA. When there are no FDA-approved or cleared tests available, and other criteria are met, FDA can make tests available under an emergency access mechanism called an Emergency Use Authorization (EUA). The EUA for this test is supported by the [place] of Health and Human Service's (HHS's) declaration [...] #### T SH, BNP, HSTROPN, CMP #### [facility] [address] [place] [address] Dr. Jersey Butcher CARDIAC VIDHI 3-6on 2 CK [Catalytic activity/Vol] 624 U/L Critically high 39-308 [facility] Comment on above: Performed By: #### T SH, BNP, HSTROPN, CMP #### [facility] [address] [place] [address] Dr. Jersey Butcher CK.MB [Mass/Vol] 0.09 ng/mL Normal <=3.[address] [facility] Comment on above: Performed By: #### T SH, BNP, HSTROPN, CMP #### [facility] [address] [place] [address] Dr. Jersey Butcher HSTROP 14.9 pg/mL Normal 4.0-76.1 [facility] Comment on above: Result Comment: CUT- OFF POINTS HAVE BEEN ESTABLISHED BASED ON THE FOURTH UNIVERSAL DEFINITIONS OF MYOCARDIAL INFARCTION. THE UPPER REFERENCE LIMIT (URL) OF TROPONIN, DEFINED THE 99TH PERCENTILE OF cTnI DISTRIBUTION IN A REFERENCE POPULATION, HAS BEEN CONFIRMED THE DECISION THRESHOLD FOR [place] DIAGNOSIS. Performed By: #### T SH, BNP, HSTROPN, CMP #### [facility] [address] [place] [address] Dr. Jersey Butcher CARDIAC VIDHI ADMITon 022 CK [Catalytic activity/Vol] 659 U/L Critically high 39-308 [facility] Comment on above: Performed By: #### T SH, BNP, HSTROPN, CMP #### [facility] [address] [place] [address] Dr. Jersey Butcher CK.MB [Mass/Vol] 0.16 ng/mL Normal <=3.[address] [facility] Comment on above: Performed By: #### T SH, BNP, HSTROPN, CMP #### [facility] [address] [place] [address] Dr. Jersey Butcher HSTROP 15.8 pg/mL Normal 4.0-76.1 [facility] Comment on above: Result Comment: CUT- OFF POINTS HAVE BEEN ESTABLISHED BASED ON THE FOURTH UNIVERSAL DEFINITIONS OF MYOCARDIAL INFARCTION. THE UPPER REFERENCE LIMIT (URL) OF TROPONIN, DEFINED THE 99TH PERCENTILE OF cTnI DISTRIBUTION IN A REFERENCE POPULATION, HAS BEEN CONFIRMED THE DECISION THRESHOLD FOR [place] DIAGNOSIS. Performed By: #### T SH, BNP, HSTROPN, CMP #### [facility] [address] [place] [address] Dr. Jersey Butcher NILDA 266 ng/mL Critically high 16-96 [facility] Comment on above: Performed By: #### T SH, BNP, HSTROPN, CMP #### [facility] [address] [place] [address] Dr. Jersey Butcher CBC AUTO DIFFon 05-26-2022 BASO # 0.0 103/ul Normal 0.0-0.1 [facility] Comment on above: Performed By: #### C MADDIE #### [facility] [address] [place] [address] Dr. Jersey Butcher Basophils/100 WBC (Bld) 0.2 % Normal 0.2-2.0 [facility] Comment on above: Performed By: #### C MADDIE #### [facility] [address] [place] [address] Dr. Jersey Butcher EO # 0.0 103/ul Normal 0.0-0.7 [facility] Comment on above: Performed By: #### C MADDIE #### [facility] [address] [place] [address] Dr. Jersey Butcher Eosinophils/100 WBC (Bld) 0.3 % Critically low 0.9-7.0 [facility] Comment on above: Performed By: #### C MADDIE #### [facility] [address] [place] [address] Dr. Jersey Butcher Erythrocyte distribution width (RBC) [Ratio] 11.9 % Normal 11.0-15.0 [facility] Comment on above: Performed By: #### C MADDIE #### [facility] [address] [place] [address] Dr. Jersey Butcher Hematocrit (Bld) [Volume fraction] 45.0 % Normal 42.0-54.0 [facility] Comment on above: Performed By: #### C MADDIE #### [facility] [address] [place] [address] Dr. Jersey Butcher Hemoglobin (Bld) [Mass/Vol] 15.6 g/dL Normal 14.0-18.0 [facility] Comment on above: Performed By: #### C MADDIE #### [facility] [address] [place] [address] Dr. Jersey Butcher IG # 0.02 10e3/ul Normal 0.00-0.03 [facility] Comment on above: Performed By: #### C MADDIE #### [facility] [address] [place] [address] Dr. Jersey Butcher IG % 0.2 % Normal 0.0-0.5 [facility] Comment on above: Performed By: #### C MADDIE #### [facility] [address] [place] [address] Dr. Jersey Butcher LYMPH # 0.4 103/ul Critically low 1.2-3.8 [facility] Comment on above: Performed By: #### C MADDIE #### [facility] [address] [place] [address] Dr. Jersey Butcher Lymphocytes/100 WBC (Bld) 3.6 % Critically low 20.5-60.0 [facility] Comment on above: Performed By: #### C MADDIE #### [facility] [address] [place] [address] Dr. Jersey Butcher MANUAL DIFF REQ NO Normal [facility] Comment on above: Performed By: #### C MADDIE #### [facility] [address] [place] [address] Dr. Jersey Butcher MCH (RBC) [Entitic mass] 32.0 pg Normal 25.9-34.0 [facility] Comment on above: Performed By: #### C MADDIE #### [facility] [address] [place] [address] Dr. Jersey Butcher MCHC (RBC) [Mass/Vol] 34.7 g/dL Normal 29.9-35.2 [facility] Comment on above: Performed By: #### C MADDIE #### [facility] [address] [place] [address] Dr. Jersey Butcher MCV (RBC) [Entitic vol] 92.2 fL Normal 80.0-94.0 [facility] Comment on above: Performed By: #### C MADDIE #### [facility] [address] [place] [address] Dr. Jersey Butcher MONO # 0.8 103/ul Normal 0.3-0.8 [facility] Comment on above: Performed By: #### C MADDIE #### [facility] [address] [place] [address] Dr. Jersey Butcher Monocytes/100 WBC (Bld) 6.9 % Normal 1.7-12.0 [facility] Comment on above: Performed By: #### C MADDIE #### [facility] [address] [place] [address] Dr. Jersey Butcher NEUT # 10.5 103/ul Critically high 1.4-6.5 [facility] Comment on above: Performed By: #### C MADDIE #### [facility] [address] [place] [address] Dr. Jersey Butcher Neutrophils/100 WBC (Bld) 88.8 % Critically high 43.0-75.0 [facility] Comment on above: Performed By: #### C MADDIE #### [facility] [address] [place] [address] Dr. Jersey Butcher Platelet mean volume (Bld) [Entitic vol] 10.1 fL Normal 9.5-13.5 [facility] Comment on above: Performed By: #### C MADDIE #### [facility] [address] [place] [address] Dr. Jersey Butcher PLT 273 103/ul Normal 150-450 [facility] Comment on above: Performed By: #### C MADDIE #### [facility] [address] [place] [address] Dr. Jersey Butcher RBC 4.88 106/ul Normal 4.70-6.10 [facility] Comment on above: Performed By: #### C MADDIE #### [facility] [address] [address] [address] Jersey Butcher WBC 11.8 103/ul Critically high 4.0-11.[address] [facility] Comment on above: Performed By: #### C MADDIE #### [facility] [address] [address] [address] Jersey Butcher Covid-19 PCR ([facility])on SARS-CoV-2 (COVID-19) RNA PILI+probe Ql (Unsp spec) Not detected Normal NOT DETECTED [facility] Comment on above: Result Comment: When diagnostic [...] for this test is supported by the [place] of Health and Human Service's declaration that [...] #### T SH, BNP, HSTROPN, CMP #### [facility] [address] [place] [address] Dr. Jersey Butcher INFLUENZA A AND B AGon 05-26 INFLUANEGH SEE BELOW Normal [facility] Comment on above: Result Comment: Nega tive for Flu A protein angiten. Infection due to Flu A cannot be ruled out. Flu A angiten in the sample may be below the detection limit of the test. Performed By: #### T SH, BNP, HSTROPN, CMP #### [facility] [address] [place] [address] Dr. Jersey Butcher INFLUBNEGH SEE BELOW Normal [facility] Comment on above: Result Comment: Nega tive for Flu B protein antigen. Infection due to Flu B cannot be ruled out. Flu B antigen in the sample may be below the detection limit of the test. Performed By: #### T SH, BNP, HSTROPN, CMP #### [facility] [address] [place] [address] Dr. Jersey Butcher INFLUENZA A AG Negative Normal NEGATIVE SEE COMMENT [facility] Comment on above: Performed By: #### T SH, BNP, HSTROPN, CMP #### [facility] [address] [place] [address] Dr. Jersey Butcher INFLUENZA B AG Negative Normal NEGATIVE SEE COMMENT [facility] Comment on above: Performed By: #### T SH, BNP, HSTROPN, CMP #### [facility] [address] [place] [address] Dr. Jersey Butcher INTERNAL CONTROLS Within Normal Limits Normal Wi thin Normal Limits [facility] Comment on above: Performed By: #### T SH, BNP, HSTROPN, CMP #### [facility] [address] [place] [address] Dr. Jersey Butcher LACTATE/LACTIC ACIDon 2021 Lactate [Moles/Vol] 1.8 mmol/L Normal 0.4-1.9 [facility] Comment on above: Performed By: #### T SH, BNP, HSTROPN, CMP #### [facility] [address] [place] [address] Dr. Jersey Butcher PROF CHEM 8 (BAS METB)on Anion gap [Moles/Vol] 7.1 mmol/L Normal [facility] Comment on above: Performed By: #### T SH, BNP, HSTROPN, CMP #### [facility] [address] [place] [address] Dr. Jersey Butcher Calcium [Mass/Vol] 8.9 mg/dL Normal 8.5-10.1 [facility] Comment on above: Performed By: #### T SH, BNP, HSTROPN, CMP #### [facility] [address] [place] [address] Dr. Jersey Butcher Chloride [Moles/Vol] 95 mmol/L Critically low 98-107 [facility] Comment on above: Performed By: #### T SH, BNP, HSTROPN, CMP #### [facility] [address] [address] [address] Jersey Butcher CO2 [Moles/Vol] 33.2 mmol/L Critically high 21.0-32.0 [facility] Comment on above: Performed By: #### T SH, BNP, HSTROPN, CMP #### [facility] [address] [address] [address] Jersey Butcher Creatinine [Mass/Vol] 1.19 mg/dL Normal 0.70-1.30 [facility] Comment on above: Performed By: #### T SH, BNP, HSTROPN, CMP #### [facility] [address] [place] [address] Dr. Jersey Butcher EGFR-AF CHADIAN >60 Normal >=60 [facility] Comment on above: Performed By: #### T SH, BNP, HSTROPN, CMP #### [facility] [address] [place] [address] Dr. Jersey Butcher EGFR-NON AF CHADIAN >60 Normal >=60 [facility] Comment on above: Performed By: #### T SH, BNP, HSTROPN, CMP #### [facility] [address] [place] [address] Dr. Jersey Butcher Glucose [Mass/Vol] 135 mg/dL Critically high 74-106 [facility] Comment on above: Performed By: #### T SH, BNP, HSTROPN, CMP #### [facility] [address] [place] [address] Dr. Jersey Butcher Potassium [Moles/Vol] 3.3 mmol/L Critically low 3.5-5.1 [facility] Comment on above: Performed By: #### T SH, BNP, HSTROPN, CMP #### [facility] [address] [place] [address] Dr. Jersey Butcher Sodium [Moles/Vol] 132 mmol/L Critically low 136-145 [facility] Comment on above: Performed By: #### T SH, BNP, HSTROPN, CMP #### [facility] [address] [address] [address] Jersey Butcher Urea nitrogen [Mass/Vol] 18.0 mg/dL Normal 7.0-18.0 [facility] Comment on above: Performed By: #### T SH, BNP, HSTROPN, CMP #### [facility] [address] [address] [address] Jersey Butcher Urea nitrogen/Creatinine [Mass ratio] 15.1 mg/mg Normal [facility] Comment on above: Performed By: #### T SH, BNP, HSTROPN, CMP #### [facility] [address] [place] [address] Dr. Jersey Butcher RSVon 05-26-2022 RSV AG Negative Normal NEGATIVE [facility] Comment on above: Performed By: #### T SH, BNP, HSTROPN, CMP #### [facility] [address] [place] [address] Dr. Jersey Butcher XR CHEST 1 Von [...] MARLENE SAID Date: 2022-05-26 00:45 Normal [facility] BNPon 05-20-2022 Natriuretic peptide B (Bld) [Mass/Vol] 137.0 pg/mL Normal <=900.0 [facility] Comment on above: Performed By: #### C VDTBH #### [facility] [address] [place] [address] Dr. Jersey Butcher CARDIAC VIDHI 3-6on 2 CK [Catalytic activity/Vol] 139 U/L Normal 39-308 [facility] Comment on above: Performed By: #### C VDTBH #### [facility] [address] [address] [address] Jersey uBtcher CK.MB [Mass/Vol] 2.85 ng/mL Normal <=3.[address] [facility] Comment on above: Performed By: #### C VDTBH #### [facility] [address] [address] [address] Jersey Butcher HSTROP 78.1 pg/mL Critically high 4.0-76.1 [facility] Comment on above: Result Comment: CUT- OFF POINTS HAVE BEEN ESTABLISHED BASED ON THE FOURTH UNIVERSAL DEFINITIONS OF MYOCARDIAL INFARCTION. THE UPPER REFERENCE LIMIT (URL) OF TROPONIN, DEFINED THE 99TH PERCENTILE OF cTnI DISTRIBUTION IN A REFERENCE POPULATION, HAS BEEN CONFIRMED THE DECISION THRESHOLD FOR [place] DIAGNOSIS. Performed By: #### C VDTBH #### [facility] [address] [address] [address] Jersey Butcher CK [Catalytic activity/Vol] 159 U/L Normal 39-308 [facility] Comment on above: Performed By: #### T SH, BNP, HSTROPN, CMP #### [facility] [address] [address] [address] Jersey Butcher CK.MB [Mass/Vol] 3.45 ng/mL Normal <=3.[address] [facility] Comment on above: Performed By: #### T SH, BNP, HSTROPN, CMP #### [facility] [address] [address] [address] Jersey Butcher HSTROP 84.8 pg/mL Critically high 4.0-76.1 [facility] Comment on above: Result Comment: CUT- OFF POINTS HAVE BEEN ESTABLISHED BASED ON THE FOURTH UNIVERSAL DEFINITIONS OF MYOCARDIAL INFARCTION. THE UPPER REFERENCE LIMIT (URL) OF TROPONIN, DEFINED THE 99TH PERCENTILE OF cTnI DISTRIBUTION IN A REFERENCE POPULATION, HAS BEEN CONFIRMED THE DECISION THRESHOLD FOR [place] DIAGNOSIS. Performed By: #### T SH, BNP, HSTROPN, CMP #### [facility] [address] [address] [address] Jersey Butcher CARDIAC VIDHI ADMITon 022 CK [Catalytic activity/Vol] 170 U/L Normal 39-308 [facility] Comment on above: Performed By: #### C VDTBH #### [facility] [address] [place] [address] Dr. Jersey Butcher CK.MB [Mass/Vol] 2.94 ng/mL Normal <=3.[address] [facility] Comment on above: Performed By: #### C VDTBH #### [facility] [address] [place] [address] Dr. Jersey Butcher HSTROP 82.2 pg/mL Critically high 4.0-76.1 [facility] Comment on above: Result Comment: CUT- OFF POINTS HAVE BEEN ESTABLISHED BASED ON THE FOURTH UNIVERSAL DEFINITIONS OF MYOCARDIAL INFARCTION. THE UPPER REFERENCE LIMIT (URL) OF TROPONIN, DEFINED THE 99TH PERCENTILE OF cTnI DISTRIBUTION IN A REFERENCE POPULATION, HAS BEEN CONFIRMED THE DECISION THRESHOLD FOR [place] DIAGNOSIS. Performed By: #### C VDTBH #### [facility] [address] [place] [address] Dr. Jersey Butcher NILDA 72 ng/mL Normal 16-96 [facility] Comment on above: Performed By: #### C VDTBH #### [facility] [address] [place] [address] Dr. Jersey Butcher CBC AUTO DIFFon 05-20-2022 BASO # 0.0 103/ul Normal 0.0-0.1 [facility] Comment on above: Performed By: #### C BC #### [facility] [address] [place] [address] Dr. Jersey Butcher Basophils/100 WBC (Bld) 0.3 % Normal 0.2-2.0 [facility] Comment on above: Performed By: #### C BC #### [facility] [address] [place] [address] Dr. Jersey Butcher EO # 0.1 103/ul Normal 0.0-0.7 [facility] Comment on above: Performed By: #### C BC #### [facility] [address] [place] [address] Dr. Jersey Butcher Eosinophils/100 WBC (Bld) 1.8 % Normal 0.9-7.0 [facility] Comment on above: Performed By: #### C BC #### [facility] [address] [place] [address] Dr. Jersey Butcher Erythrocyte distribution width (RBC) [Ratio] 11.9 % Normal 11.0-15.0 [facility] Comment on above: Performed By: #### C BC #### [facility] [address] [place] [address] Dr. Jersey Butcher Hematocrit (Bld) [Volume fraction] 43.5 % Normal 42.0-54.0 [facility] Comment on above: Performed By: #### C BC #### [facility] [address] [place] [address] Dr. Jersey Butcher Hemoglobin (Bld) [Mass/Vol] 15.4 g/dL Normal 14.0-18.0 [facility] Comment on above: Performed By: #### C BC #### [facility] [address] [place] [address] Dr. Jersey Butcher IG # 0.01 10e3/ul Normal 0.00-0.03 [facility] Comment on above: Performed By: #### C BC #### [facility] [address] [place] [address] Dr. Jersey Butcher IG % 0.2 % Normal 0.0-0.5 [facility] Comment on above: Performed By: #### C BC #### [facility] [address] [place] [address] Dr. Jersey Butcher LYMPH # 1.4 103/ul Normal 1.2-3.8 [facility] Comment on above: Performed By: #### C BC #### [facility] [address] [place] [address] Dr. Jersey Butcher Lymphocytes/100 WBC (Bld) 21.0 % Normal 20.5-60.0 [facility] Comment on above: Performed By: #### C BC #### [facility] [address] [place] [address] Dr. Jersey Butcher MANUAL DIFF REQ NO Normal [facility] Comment on above: Performed By: #### C BC #### [facility] [address] [address] [address] Jersey Butcher MCH (RBC) [Entitic mass] 32.2 pg Normal 25.9-34.0 [facility] Comment on above: Performed By: #### C BC #### [facility] [address] [place] [address] Dr. Jersey Butcher MCHC (RBC) [Mass/Vol] 35.4 g/dL Critically high 29.9-35.2 [facility] Comment on above: Performed By: #### C BC #### [facility] [address] [place] [address] Dr. Jersey Butcher MCV (RBC) [Entitic vol] 91.0 fL Normal 80.0-94.0 [facility] Comment on above: Performed By: #### C BC #### [facility] [address] [place] [address] Dr. Jersey Butcher MONO # 1.0 103/ul Critically high 0.3-0.8 [facility] Comment on above: Performed By: #### C BC #### [facility] [address] [place] [address] Dr. Jersey Butcher Monocytes/100 WBC (Bld) 14.9 % Critically high 1.7-12.0 [facility] Comment on above: Performed By: #### C BC #### [facility] [address] [place] [address] Dr. Jersey Butcher NEUT # 4.0 103/ul Normal 1.4-6.5 [facility] Comment on above: Performed By: #### C BC #### [facility] [address] [place] [address] Dr. Jersey Butcher Neutrophils/100 WBC (Bld) 61.8 % Normal 43.0-75.0 [facility] Comment on above: Performed By: #### C BC #### [facility] [address] [place] [address] Dr. Jersey Butcher Platelet mean volume (Bld) [Entitic vol] 9.7 fL Normal 9.5-13.5 [facility] Comment on above: Performed By: #### C BC #### [facility] [address] [place] [address] Dr. Jersey Butcher PLT 246 103/ul Normal 150-450 [facility] Comment on above: Performed By: #### C BC #### [facility] [address] [place] [address] Dr. Jersey Butcher RBC 4.78 106/ul Normal 4.70-6.10 [facility] Comment on above: Performed By: #### C BC #### [facility] [address] [place] [address] Dr. Jersey Butcher WBC 6.5 103/ul Normal 4.0-11.0 [facility] Comment on above: Performed By: #### C BC #### [facility] [address] [place] [address] Dr. Jersey Butcher BASO # 0.0 103/ul Normal 0.0-0.1 [facility] Comment on above: Performed By: #### C BC #### [facility] [address] [place] [address] Dr. Jersey Butcher Basophils/100 WBC (Bld) 0.3 % Normal 0.2-2.0 [facility] Comment on above: Performed By: #### C BC #### [facility] [address] [place] [address] Dr. Jersey Butcher EO # 0.1 103/ul Normal 0.0-0.7 [facility] Comment on above: Performed By: #### C BC #### [facility] [address] [place] [address] Dr. Jersey Butcher Eosinophils/100 WBC (Bld) 1.4 % Normal 0.9-7.0 [facility] Comment on above: Performed By: #### C BC #### [facility] [address] [place] [address] Dr. Jersey Butcher Erythrocyte distribution width (RBC) [Ratio] 11.9 % Normal 11.0-15.0 [facility] Comment on above: Performed By: #### C BC #### [facility] [address] [place] [address] Dr. Jersey Butcher Hematocrit (Bld) [Volume fraction] 42.5 % Normal 42.0-54.0 [facility] Comment on above: Performed By: #### C BC #### [facility] [address] [place] [address] Dr. Jersey Butcher Hemoglobin (Bld) [Mass/Vol] 14.7 g/dL Normal 14.0-18.0 [facility] Comment on above: Performed By: #### C BC #### [facility] [address] [place] [address] Dr. Jersey Butcher IG # 0.02 10e3/ul Normal 0.00-0.03 [facility] Comment on above: Performed By: #### C BC #### [facility] [address] [place] [address] Dr. Jersey Butcher IG % 0.3 % Normal 0.0-0.5 [facility] Comment on above: Performed By: #### C BC #### [facility] [address] [place] [address] Dr. Jersey Butcher LYMPH # 2.0 103/ul Normal 1.2-3.8 [facility] Comment on above: Performed By: #### C BC #### [facility] [address] [place] [address] Dr. Jersey Butcher Lymphocytes/100 WBC (Bld) 28.9 % Normal 20.5-60.0 [facility] Comment on above: Performed By: #### C BC #### [facility] [address] [place] [address] Dr. Jersey Butcher MANUAL DIFF REQ NO Normal [facility] Comment on above: Performed By: #### C BC #### [facility] [address] [place] [address] Dr. Jersey Butcher MCH (RBC) [Entitic mass] 31.8 pg Normal 25.9-34.0 [facility] Comment on above: Performed By: #### C BC #### [facility] [address] [address] [address] Jersey Butcher MCHC (RBC) [Mass/Vol] 34.6 g/dL Normal 29.9-35.2 [facility] Comment on above: Performed By: #### C BC #### [facility] [address] [place] [address] Dr. Jersey Butcher MCV (RBC) [Entitic vol] 92.0 fL Normal 80.0-94.0 [facility] Comment on above: Performed By: #### C BC #### [facility] [address] [place] [address] Dr. Jersey Butcher MONO # 1.1 103/ul Critically high 0.3-0.8 [facility] Comment on above: Performed By: #### C BC #### [facility] [address] [place] [address] Dr. Jersey Butcher Monocytes/100 WBC (Bld) 15.3 % Critically high 1.7-12.0 [facility] Comment on above: Performed By: #### C BC #### [facility] [address] [place] [address] Dr. Jersey Butcher NEUT # 3.7 103/ul Normal 1.4-6.5 [facility] Comment on above: Performed By: #### C BC #### [facility] [address] [place] [address] Dr. Jersey Butcher Neutrophils/100 WBC (Bld) 53.8 % Normal 43.0-75.0 [facility] Comment on above: Performed By: #### C BC #### [facility] [address] [place] [address] Dr. Jersey Butcher Platelet mean volume (Bld) [Entitic vol] 9.9 fL Normal 9.5-13.5 [facility] Comment on above: Performed By: #### C BC #### [facility] [address] [place] [address] Dr. Jersey Butcher PLT 268 103/ul Normal 150-450 [facility] Comment on above: Performed By: #### C BC #### [facility] [address] [place] [address] Dr. Jersey Butcher RBC 4.62 106/ul Critically low 4.70-6.10 [facility] Comment on above: Performed By: #### C BC #### [facility] [address] [address] [address] Jersey Butcher WBC 7.0 103/ul Normal 4.0-11.0 [facility] Comment on above: Performed By: #### C BC #### [facility] [address] [address] [address] Jersey Butcher [facility]on SARS-CoV-2 (COVID-19) RNA PILI+probe Ql (Unsp spec) Not detected Normal NOT DETECTED [facility] Comment on above: Result Comment: When diagnostic [...] for this test is supported by the [place] of Health and Human Service's declaration that [...] #### T SH, BNP, HSTROPN, CMP #### [facility] [address] [address] [address] Jersey Butcher D-DIMERon 05-20-2022 D-DIMER 0.57 mg/L FEU Normal <=0.59 [facility] Comment on above: Performed By: #### D DIM #### [facility] [address] [address] [address] Jersey Butcher D-DIMER COMMENTS SEE BELOW Normal [facility] Comment on above: Result Comment: Incr [...] hospitalization. Performed By: #### D DIM #### [facility] [address] [place] [address] Dr. Jersey Butcher PROF CHEM 8 (BAS METB)on Anion gap [Moles/Vol] 6.5 mmol/L Normal [facility] Comment on above: Performed By: #### C MADDIE #### [facility] [address] [place] [address] Dr. Jersey Butcher Calcium [Mass/Vol] 8.8 mg/dL Normal 8.5-10.1 [facility] Comment on above: Performed By: #### C MADDIE #### [facility] [address] [place] [address] Dr. Jersey Butcher Chloride [Moles/Vol] 99 mmol/L Normal 98-107 [facility] Comment on above: Performed By: #### C BCROSIE #### [facility] [address] [place] [address] Dr. Jersey Butcher CO2 [Moles/Vol] 35.8 mmol/L Critically high 21.0-32.0 [facility] Comment on above: Performed By: #### C BCROSIE #### [facility] [address] [place] [address] Dr. Jersey Butcher Creatinine [Mass/Vol] 0.84 mg/dL Normal 0.70-1.30 [facility] Comment on above: Performed By: #### C BCMAN #### [facility] [address] [place] [address] Dr. Jersey Butcher EGFR-AF CHADIAN >60 Normal >=[address] [facility] Comment on above: Performed By: #### C BCMAN #### [facility] [address] [address] [address] Jersey Butcher EGFR-NON AF CHADIAN >60 Normal >=60 [facility] Comment on above: Performed By: #### C MADDIE #### [facility] [address] [address] [address] Jersey Butcher Glucose [Mass/Vol] 108 mg/dL Critically high 74-106 [facility] Comment on above: Performed By: #### C MADDIE #### [facility] [address] [address] [address] Jersey Butcher Potassium [Moles/Vol] 3.3 mmol/L Critically low 3.5-5.1 [facility] Comment on above: Performed By: #### C MADDIE #### [facility] [address] [address] [address] Jersey Butcher Sodium [Moles/Vol] 138 mmol/L Normal 136-145 [facility] Comment on above: Performed By: #### C MADDIE #### [facility] [address] [address] [address] Jersey Butcher Urea nitrogen [Mass/Vol] 17.0 mg/dL Normal 7.0-18.0 [facility] Comment on above: Performed By: #### C MADDIE #### [facility] [address] [address] [address] Jersey Butcher Urea nitrogen/Creatinine [Mass ratio] 20.2 mg/mg Normal [facility] Comment on above: Performed By: #### C MADDIE #### [facility] [address] [address] [address] Jersey Butcher Anion gap [Moles/Vol] 6.8 mmol/L Normal [facility] Comment on above: Performed By: #### C VDTBH #### [facility] [address] [address] [address] Jersey Butcher Calcium [Mass/Vol] 8.8 mg/dL Normal 8.5-10.1 [facility] Comment on above: Performed By: #### C VDTBH #### [facility] [address] [address] [address] Jersey Butcher Chloride [Moles/Vol] 98 mmol/L Normal 98-107 [facility] Comment on above: Performed By: #### C VDTBH #### [facility] [address] [place] [address] Dr. Jersey Butcher CO2 [Moles/Vol] 35.5 mmol/L Critically high 21.0-32.0 [facility] Comment on above: Performed By: #### C VDTBH #### [facility] [address] [place] [address] Dr. Jersey Butcher Creatinine [Mass/Vol] 0.95 mg/dL Normal 0.70-1.30 [facility] Comment on above: Performed By: #### C VDTBH #### [facility] [address] [place] [address] Dr. Jersey Butcher EGFR-AF CHADIAN >60 Normal >=[address] [facility] Comment on above: Performed By: #### C VDTBH #### [facility] [address] [place] [address] Dr. Jersey Butcher EGFR-NON AF CHADIAN >60 Normal >=60 [facility] Comment on above: Performed By: #### C VDTBH #### [facility] [address] [place] [address] Dr. Jersey Butcher Glucose [Mass/Vol] 96 mg/dL Normal 74-106 [facility] Comment on above: Performed By: #### C VDTBH #### [facility] [address] [address] [address] Jersey Butcher Potassium [Moles/Vol] 3.3 mmol/L Critically low 3.5-5.1 [facility] Comment on above: Performed By: #### C VDTBH #### [facility] [address] [place] [address] Dr. Jersey Butcher Sodium [Moles/Vol] 137 mmol/L Normal 136-145 [facility] Comment on above: Performed By: #### C VDTBH #### [facility] [address] [place] [address] Dr. Jersey Butcher Urea nitrogen [Mass/Vol] 21.0 mg/dL Critically high 7.0-18.0 [facility] Comment on above: Performed By: #### C VDTBH #### [facility] [address] [place] [address] Dr. Jersey Butcher Urea nitrogen/Creatinine [Mass ratio] 22.1 mg/mg Normal [facility] Comment on above: Performed By: #### C VDTBH #### [facility] [address] [place] [address] Dr. Jersey Butcher TROPONIN, HIGH SENSITIVITYon 05-20-2022 HSTROP 56.7 pg/mL Normal 4.0-76.1 [facility] Comment on above: Result Comment: CUT- OFF POINTS HAVE BEEN ESTABLISHED BASED ON THE FOURTH UNIVERSAL DEFINITIONS OF MYOCARDIAL INFARCTION. THE UPPER REFERENCE LIMIT (URL) OF TROPONIN, DEFINED THE 99TH PERCENTILE OF cTnI DISTRIBUTION IN A REFERENCE POPULATION, HAS BEEN CONFIRMED THE DECISION THRESHOLD FOR [place] DIAGNOSIS. Performed By: #### C VDTBH #### [facility] [address] [place] [address] Dr. Jersey Butcher HSTROP 78.4 pg/mL Critically high 4.0-76.1 [facility] Comment on above: Result Comment: CUT- OFF POINTS HAVE BEEN ESTABLISHED BASED ON THE FOURTH UNIVERSAL DEFINITIONS OF MYOCARDIAL INFARCTION. THE UPPER REFERENCE LIMIT (URL) OF TROPONIN, DEFINED THE 99TH PERCENTILE OF cTnI DISTRIBUTION IN A REFERENCE POPULATION, HAS BEEN CONFIRMED THE DECISION THRESHOLD FOR [place] DIAGNOSIS. Performed By: #### C BCROSIE #### [facility] [address] [place] [address] Dr. Jersey Butcher HSTROP 85.4 pg/mL Critically high 4.0-76.1 [facility] Comment on above: Result Comment: CUT- OFF POINTS HAVE BEEN ESTABLISHED BASED ON THE FOURTH UNIVERSAL DEFINITIONS OF MYOCARDIAL INFARCTION. THE UPPER REFERENCE LIMIT (URL) OF TROPONIN, DEFINED THE 99TH PERCENTILE OF cTnI DISTRIBUTION IN A REFERENCE POPULATION, HAS BEEN CONFIRMED THE DECISION THRESHOLD FOR [place] DIAGNOSIS. Performed By: #### Alhaji BCMAN #### [facility] [address] [place] [address] Dr. Jersey Butcher XR CHEST 1 Von [...] SANDEEP MARY Date: 2022-05-20 00:59 Normal [facility] CBC AUTO DIFFon 02-04-2022 BASO # 0.0 103/ul Normal 0.0-0.1 [facility] Comment on above: Performed By: #### T SH, BNP, HSTROPN, CMP #### [facility] [address] [place] [address] Dr. Jersey Butcher Basophils/100 WBC (Bld) 0.2 % Normal 0.2-2.0 [facility] Comment on above: Performed By: #### T SH, BNP, HSTROPN, CMP #### [facility] [address] [address] [address] Jersey Butcher EO # 0.0 103/ul Normal 0.0-0.7 [facility] Comment on above: Performed By: #### T SH, BNP, HSTROPN, CMP #### [facility] [address] [address] [address] Jersey Butcher Eosinophils/100 WBC (Bld) 0.4 % Critically low 0.9-7.0 [facility] Comment on above: Performed By: #### T SH, BNP, HSTROPN, CMP #### [facility] [address] [address] [address] Jersey Butcher Erythrocyte distribution width (RBC) [Ratio] 12.4 % Normal 11.0-15.0 [facility] Comment on above: Performed By: #### T SH, BNP, HSTROPN, CMP #### [facility] [address] [place] [address] Dr. Jersey Butcher Hematocrit (Bld) [Volume fraction] 41.9 % Critically low 42.0-54.0 [facility] Comment on above: Performed By: #### T SH, BNP, HSTROPN, CMP #### [facility] [address] [place] [address] Dr. Jersey Butcher Hemoglobin (Bld) [Mass/Vol] 14.5 g/dL Normal 14.0-18.0 [facility] Comment on above: Performed By: #### T SH, BNP, HSTROPN, CMP #### [facility] [address] [place] [address] Dr. Jersey Butcher IG # 0.02 10e3/ul Normal 0.00-0.03 [facility] Comment on above: Performed By: #### T SH, BNP, HSTROPN, CMP #### [facility] [address] [place] [address] Dr. Jersey Butcher IG % 0.2 % Normal 0.0-0.5 [facility] Comment on above: Performed By: #### T SH, BNP, HSTROPN, CMP #### [facility] [address] [place] [address] Dr. Jersey Butcher LYMPH # 0.9 103/ul Critically low 1.2-3.8 [facility] Comment on above: Performed By: #### T SH, BNP, HSTROPN, CMP #### [facility] [address] [place] [address] Dr. Jersey Butcher Lymphocytes/100 WBC (Bld) 10.2 % Critically low 20.5-60.0 [facility] Comment on above: Performed By: #### T SH, BNP, HSTROPN, CMP #### [facility] [address] [place] [address] Dr. Jersey Butcher MANUAL DIFF REQ NO Normal [facility] Comment on above: Performed By: #### T SH, BNP, HSTROPN, CMP #### [facility] [address] [place] [address] Dr. Jersey Butcher MCH (RBC) [Entitic mass] 32.3 pg Normal 25.9-34.0 [facility] Comment on above: Performed By: #### T SH, BNP, HSTROPN, CMP #### [facility] [address] [place] [address] Dr. Jersey Butcher MCHC (RBC) [Mass/Vol] 34.6 g/dL Normal 29.9-35.2 [facility] Comment on above: Performed By: #### T SH, BNP, HSTROPN, CMP #### [facility] [address] [place] [address] Dr. Jersey Butcher MCV (RBC) [Entitic vol] 93.3 fL Normal 80.0-94.0 [facility] Comment on above: Performed By: #### T SH, BNP, HSTROPN, CMP #### [facility] [address] [place] [address] Dr. Jersey Butcher MONO # 0.8 103/ul Normal 0.3-0.8 [facility] Comment on above: Performed By: #### T SH, BNP, HSTROPN, CMP #### [facility] [address] [place] [address] Dr. Jersey Butcher Monocytes/100 WBC (Bld) 9.4 % Normal 1.7-12.0 [facility] Comment on above: Performed By: #### T SH, BNP, HSTROPN, CMP #### [facility] [address] [place] [address] Dr. Jersey Butcher NEUT # 6.6 103/ul Critically high 1.4-6.5 [facility] Comment on above: Performed By: #### T SH, BNP, HSTROPN, CMP #### [facility] [address] [place] [address] Dr. Jersey Butcher Neutrophils/100 WBC (Bld) 79.6 % Critically high 43.0-75.0 [facility] Comment on above: Performed By: #### T SH, BNP, HSTROPN, CMP #### [facility] [address] [place] [address] Dr. Jersey Butcher Platelet mean volume (Bld) [Entitic vol] 10.1 fL Normal 9.5-13.5 [facility] Comment on above: Performed By: #### T SH, BNP, HSTROPN, CMP #### [facility] [address] [place] [address] Dr. Jersey Butcher PLT 227 103/ul Normal 150-450 [facility] Comment on above: Performed By: #### T SH, BNP, HSTROPN, CMP #### [facility] [address] [address] [address] Jersey Butcher RBC 4.49 106/ul Critically low 4.70-6.10 [facility] Comment on above: Performed By: #### T SH, BNP, HSTROPN, CMP #### [facility] [address] [place] [address] Dr. Jersey Butcher WBC 8.3 103/ul Normal 4.0-11.0 [facility] Comment on above: Performed By: #### T SH, BNP, HSTROPN, CMP #### [facility] [address] [place] [address] Dr. Jersey Butcher Covid-19 PCR (CVDTB)on 01-17 SARS-CoV-2 (COVID-19) RNA PILI+probe Ql (Unsp spec) Detected Critically abnormal NOT DETECTED [facility] Comment on above: Result Comment: This test is not yet approved or cleared by the [place] FDA. When there are no FDA-approved or cleared tests available, and other criteria are met, FDA can make tests available under an emergency access mechanism called an Emergency Use Authorization (EUA). The EUA for this test is supported by the [place] of Health and Human Service's declaration that [...] used). Performed By: #### C VDTBH #### [facility] [address] [place] [address] Dr. Jersey Butcher INFLUENZA A AND B AGon 02-04 INFLUENZA A AG Negative Normal NEGATIVE SEE COMMENT [facility] Comment on above: Performed By: #### C MADDIE #### [facility] [address] [place] [address] Dr. Jersey Butcher INFLUENZA B AG Negative Normal NEGATIVE SEE COMMENT [facility] Comment on above: Performed By: #### C MADDIE #### [facility] [address] [place] [address] Dr. Jersey Butcher INTERNAL CONTROLS Within Normal Limits Normal Wi thin Normal Limits [facility] Comment on above: Performed By: #### C MADDIE #### [facility] [address] [place] [address] Dr. Jersey Butcher PROF CHEM 8 (BAS METB)on Anion gap [Moles/Vol] 5.9 mmol/L Normal [facility] Comment on above: Performed By: #### T SH, BNP, HSTROPN, CMP #### [facility] [address] [place] [address] Dr. Jersey Butcher Calcium [Mass/Vol] 8.5 mg/dL Normal 8.5-10.1 [facility] Comment on above: Performed By: #### T SH, BNP, HSTROPN, CMP #### [facility] [address] [place] [address] Dr. Jersey Butcher Chloride [Moles/Vol] 96 mmol/L Critically low 98-107 [facility] Comment on above: Performed By: #### T SH, BNP, HSTROPN, CMP #### [facility] [address] [place] [address] Dr. Jersey Butcher CO2 [Moles/Vol] 33.4 mmol/L Critically high 21.0-32.0 [facility] Comment on above: Performed By: #### T SH, BNP, HSTROPN, CMP #### [facility] [address] [place] [address] Dr. Jersey Butcher Creatinine [Mass/Vol] 1.17 mg/dL Normal 0.70-1.30 [facility] Comment on above: Performed By: #### T SH, BNP, HSTROPN, CMP #### [facility] [address] [address] [address] Jersey Butcher EGFR-AF CHADIAN >60 Normal >=60 [facility] Comment on above: Performed By: #### T SH, BNP, HSTROPN, CMP #### [facility] [address] [address] [address] Jersey Butcher EGFR-NON AF CHADIAN >60 Normal >=60 [facility] Comment on above: Performed By: #### T SH, BNP, HSTROPN, CMP #### [facility] [address] [address] [address] Jersey Butcher Glucose [Mass/Vol] 141 mg/dL Critically high 74-106 [facility] Comment on above: Performed By: #### T SH, BNP, HSTROPN, CMP #### [facility] [address] [place] [address] Dr. Jersey Butcher Potassium [Moles/Vol] 3.3 mmol/L Critically low 3.5-5.1 [facility] Comment on above: Performed By: #### T SH, BNP, HSTROPN, CMP #### [facility] [address] [place] [address] Dr. Jersey Butcher Sodium [Moles/Vol] 132 mmol/L Critically low 136-145 [facility] Comment on above: Performed By: #### T SH, BNP, HSTROPN, CMP #### [facility] [address] [address] [address] Jersey Butcher Urea nitrogen [Mass/Vol] 15.0 mg/dL Normal 7.0-18.0 [facility] Comment on above: Performed By: #### T SH, BNP, HSTROPN, CMP #### [facility] [address] [place] [address] Dr. Jersey Butcher Urea nitrogen/Creatinine [Mass ratio] 12.8 mg/mg Normal [facility] Comment on above: Performed By: #### T SH, BNP, HSTROPN, CMP #### [facility] [id number] Jersey Butcher XR CHEST 1 Von [...] by: Nery MCKEON Date: 2022-02-04 01:58 Normal [facility] XR CSPINE 2_3 VIEWSon 2021 XR [...] ANTONIO HALL Date: 2022-01-26 15:50 Normal [facility] Office Visit (Cardiology)on 01-12-2022 Follow-up visit Diagnoses/Problems Assessed Coronary artery disease without angina pectoris (414.00) (I25.10) Normal echocardiogram (V72.85) Hypertension (401.9) (I10) Hyperlipidemia (272.4) (E78.5) Sleep apnea (780.57) (G47.30) Morbid obesity with BMI of 50.0-59.9, adult (278.01,V85.43) (E66.01,Z68.43) Orders Morbid obesity with BMI of 50.0-59.9, adult Healthy Weight Tips; Status:Complete; Done: [id number] SocHx: Former smoker Tobacco Use Screening; Status:Complete; Done: [id number] Patient Instructions Please bring all medicines, vitamins, [...] meniscal repair with MACE. Patient presents to [facility] to obtain cardiac risk stratification prior to a weight loss surgery (no details of procedure needed) Surgeon: unknown Planned date: none to date Prior cardiovascular history: 1. 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 Intermediate clinical markers -History of ischemic heart disease (prior WI, current chest pain secondary to ischemia, use [...] Social Hist (more content not included)... Normal [place] Tobacco Screening.on 022 Adult depression screening assessment No [facility] [employer] DO Work Phone: Tobacco use status CPHS b) No [facility] [employer] DO Work Phone: CBC AUTO DIFFon 01-11-2022 BASO # 0.0 103/ul Normal 0.0-0.1 [facility] Comment on above: Performed By: #### T SH, BNP, HSTROPN, CMP #### [facility] [address] [place] [address] Dr. Jersey Butcher Basophils/100 WBC (Bld) 0.4 % Normal 0.2-2.0 [facility] Comment on above: Performed By: #### T SH, BNP, HSTROPN, CMP #### [facility] [address] [place] [address] Dr. Jersey Butcher EO # 0.1 103/ul Normal 0.0-0.7 [facility] Comment on above: Performed By: #### T SH, BNP, HSTROPN, CMP #### [facility] [address] [place] [address] Dr. Jersey Butcher Eosinophils/100 WBC (Bld) 1.6 % Normal 0.9-7.0 [facility] Comment on above: Performed By: #### T SH, BNP, HSTROPN, CMP #### [facility] [address] [place] [address] Dr. Jersey Butcher Erythrocyte distribution width (RBC) [Ratio] 12.3 % Normal 11.0-15.0 [facility] Comment on above: Performed By: #### T SH, BNP, HSTROPN, CMP #### [facility] [address] [place] [address] Dr. Jersey Butcher Hematocrit (Bld) [Volume fraction] 46.4 % Normal 42.0-54.0 [facility] Comment on above: Performed By: #### T SH, BNP, HSTROPN, CMP #### [facility] [address] [place] [address] Dr. Jersey Butcher Hemoglobin (Bld) [Mass/Vol] 15.8 g/dL Normal 14.0-18.0 [facility] Comment on above: Performed By: #### T SH, BNP, HSTROPN, CMP #### [facility] [address] [place] [address] Dr. Jersey Butcher IG # 0.02 10e3/ul Normal 0.00-0.03 [facility] Comment on above: Performed By: #### T SH, BNP, HSTROPN, CMP #### [facility] [address] [place] [address] Dr. Jersey Butcher IG % 0.3 % Normal 0.0-0.5 [facility] Comment on above: Performed By: #### T SH, BNP, HSTROPN, CMP #### [facility] [address] [place] [address] Dr. Jersey Butcher LYMPH # 1.5 103/ul Normal 1.2-3.8 [facility] Comment on above: Performed By: #### T SH, BNP, HSTROPN, CMP #### [facility] [address] [place] [address] Dr. Jersey Butcher Lymphocytes/100 WBC (Bld) 21.7 % Normal 20.5-60.0 [facility] Comment on above: Performed By: #### T SH, BNP, HSTROPN, CMP #### [facility] [address] [place] [address] Dr. Jersey Butcher MANUAL DIFF REQ NO [facility] Comment on above: Performed By: #### T SH, BNP, HSTROPN, CMP #### [facility] [address] [place] [address] Dr. Jersey Butcher MCH (RBC) [Entitic mass] 31.5 pg Normal 25.9-34.0 [facility] Comment on above: Performed By: #### T SH, BNP, HSTROPN, CMP #### [facility] [address] [place] [address] Dr. Jersey Butcher MCHC (RBC) [Mass/Vol] 34.1 g/dL Normal 29.9-35.2 [facility] Comment on above: Performed By: #### T SH, BNP, HSTROPN, CMP #### [facility] [address] [place] [address] Dr. Jersey Butcher MCV (RBC) [Entitic vol] 92.6 fL Normal 80.0-94.0 [facility] Comment on above: Performed By: #### T SH, BNP, HSTROPN, CMP #### [facility] [address] [place] [address] Dr. Jersey Butcher MONO # 0.7 103/ul Normal 0.3-0.8 [facility] Comment on above: Performed By: #### T SH, BNP, HSTROPN, CMP #### [facility] [address] [address] [address] Jersey Butcher Monocytes/100 WBC (Bld) 9.7 % Normal 1.7-12.0 [facility] Comment on above: Performed By: #### T SH, BNP, HSTROPN, CMP #### [facility] [address] [place] [address] Dr. Jersey Butcher NEUT # 4.6 103/ul Normal 1.4-6.5 [facility] Comment on above: Performed By: #### T SH, BNP, HSTROPN, CMP #### [facility] [address] [place] [address] Dr. Jersey Butcher Neutrophils/100 WBC (Bld) 66.3 % Normal 43.0-75.0 [facility] Comment on above: Performed By: #### T SH, BNP, HSTROPN, CMP #### [facility] [address] [place] [address] Dr. Jersey Butcher Platelet mean volume (Bld) [Entitic vol] 9.6 fL Normal 9.5-13.5 [facility] Comment on above: Performed By: #### T SH, BNP, HSTROPN, CMP #### [facility] [address] [place] [address] Dr. Jersey Butcher PLT 270 103/ul Normal 150-450 [facility] Comment on above: Performed By: #### T SH, BNP, HSTROPN, CMP #### [facility] [address] [place] [address] Dr. Jersey Butcher RBC 5.01 106/ul Normal 4.70-6.10 [facility] Comment on above: Performed By: #### T SH, BNP, HSTROPN, CMP #### [facility] [address] [place] [address] Dr. Jersey Butcher WBC 6.9 103/ul Normal 4.0-11.0 [facility] Comment on above: Performed By: #### T SH, BNP, HSTROPN, CMP #### [facility] [address] [place] [address] Dr. Jersey Butcher GLYCOHEMOGLOBIN A1Con 2021 ADA RECOMMENDATION SEE BELOW Normal [facility] Comment on above: Result Comment: ADA RECOMMENDED LIMIT 4.0 - 6.0 ADA THERAPEUTIC TARGET < 7.0 ACTION SUGGESTED > 7.0 Performed By: #### T SH, BNP, HSTROPN, CMP #### [facility] [address] [address] [address] Jersey Butcher Glucose [Mass/Vol] 117 mg/dL Normal [facility] Comment on above: Performed By: #### T SH, BNP, HSTROPN, CMP #### [facility] [address] [place] [address] Dr. Jersey Butcher HbA1c (Bld) [Mass fraction] 5.7 % Normal 4.5-6.2 [facility] Comment on above: Performed By: #### T SH, BNP, HSTROPN, CMP #### [facility] [address] [address] [address] Jersey Butcher LIPID PROFILEon 01-11-2022 CHOL-HDL RATIO NORM SEE BELOW Normal [facility] Comment on above: Result Comment: 3.3 - 4.4 LOW RISK 4.4 - 7.1 AVERAGE RISK 7.1 - 11.0 MODERATE RISK >11.0 HIGH RISK Performed By: #### C MADDIE #### [facility] [address] [place] [address] Dr. Jersey Butcher Cholesterol [Mass/Vol] 133 mg/dL Normal <=200 [facility] Comment on above: Performed By: #### C MADDIE #### [facility] [address] [place] [address] Dr. Jersey Butcher Cholesterol in HDL [Mass/Vol] 54 mg/dL Normal 40-60 [facility] Comment on above: Performed By: #### C MADDIE #### [facility] [address] [place] [address] Dr. Jersey Butcher Cholesterol in LDL [Mass/Vol] 52.0 mg/dL Normal [facility] Comment on above: Performed By: #### C MADDIE #### [facility] [address] [address] [address] Jersey Butcher Cholesterol.total/C holesterol in HDL [Mass ratio] 2.5 {ratio} Normal [facility] Comment on above: Performed By: #### C MADDIE #### [facility] [address] [address] [address] Jersey Butcher HDL NORMAL > or = 60 mg/dl - LO W CARDIOVASCULAR RISK <40 mg/dl - HIGH CARDIOVASCULAR RISK Normal [facility] Comment on above: Performed By: #### C MADDIE #### [facility] [address] [address] [address] Jersey Butcher LDL CALC NORMAL SEE BELOW Normal [facility] Comment on above: Result Comment: <100 mg/dl OPTIMAL 100 - 129 mg/dl NEAR OR ABOVE OPTIMAL 130 - 159 mg/dl BORDERLINE HIGH 160 - 189 mg/dl HIGH >190 mg/dl VERY HIGH Performed By: #### C MADDIE #### [facility] [address] [address] [address] Jersey Butcher Triglyceride [Mass/Vol] 135 mg/dL Normal <=150 [facility] Comment on above: Performed By: #### C MADDIE #### [facility] [address] [place] [address] Dr. Jersey Butcher VLDL CALC 27.0 mg/dL Normal [facility] Comment on above: Performed By: #### C MADDIE #### [facility] [address] [address] [address] Jersey Butcher PROF 14(COMP METB)on 022 Albumin [Mass/Vol] 3.5 g/dL Normal 3.4-5.0 [facility] Comment on above: Performed By: #### C MADDIE #### [facility] [address] [place] [address] Dr. Jersey Butcher Albumin/Globulin [Mass ratio] 1.0 {ratio} Normal [facility] Comment on above: Performed By: #### C BCROSIE #### [facility] [address] [address] [address] Jersey Butcher ALP [Catalytic activity/Vol] 114 U/L Normal 46-116 [facility] Comment on above: Performed By: #### C BCROSIE #### [facility] [address] [address] [address] Jersey Butcher ALT [Catalytic activity/Vol] 64 U/L Critically high 16-63 [facility] Comment on above: Performed By: #### C BCROSIE #### [facility] [address] [address] [address] Jersey Butcher Anion gap [Moles/Vol] 9.1 mmol/L Normal [facility] Comment on above: Performed By: #### C MADDIE #### [facility] [address] [place] [address] Dr. Jersey Butcher AST [Catalytic activity/Vol] 81 U/L Critically high 15-37 [facility] Comment on above: Performed By: #### C MADDIE #### [facility] [address] [place] [address] Dr. Jersey Butcher Bilirubin [Mass/Vol] 0.9 mg/dL Normal 0.2-1.0 [facility] Comment on above: Performed By: #### C MADDIE #### [facility] [address] [place] [address] Dr. Jersey Butcher Calcium [Mass/Vol] 9.0 mg/dL Normal 8.5-10.1 [facility] Comment on above: Performed By: #### C BCROSIE #### [facility] [address] [address] [address] Jersey Butcher Chloride [Moles/Vol] 99 mmol/L Normal 98-107 [facility] Comment on above: Performed By: #### C BCROSIE #### [facility] [address] [address] [address] Jersey Butcher CO2 [Moles/Vol] 34.9 mmol/L Critically high 21.0-32.0 [facility] Comment on above: Performed By: #### C MADDIE #### [facility] [address] [address] [address] Jersey Butcher Creatinine [Mass/Vol] 1.04 mg/dL Normal 0.70-1.30 [facility] Comment on above: Performed By: #### C MADDIE #### [facility] [address] [address] [address] Jersey Butcher EGFR-AF CHADIAN >60 Normal >=[address] [facility] Comment on above: Performed By: #### C MADDIE #### [facility] [address] [address] [address] Jersey Butcher EGFR-NON AF CHADIAN >60 Normal >=60 [facility] Comment on above: Performed By: #### C MADDIE #### [facility] [address] [place] [address] Dr. Jersey Butcher Globulin (S) [Mass/Vol] 3.5 g/dL Normal [facility] Comment on above: Performed By: #### C MADDIE #### [facility] [address] [place] [address] Dr. Jersey Butcher Glucose [Mass/Vol] 101 mg/dL Normal 74-106 [facility] Comment on above: Performed By: #### C MADDIE #### [facility] [address] [place] [address] Dr. Jersey Butcher Potassium [Moles/Vol] 4.0 mmol/L Normal 3.5-5.1 [facility] Comment on above: Performed By: #### C MADDIE #### [facility] [address] [address] [address] Jersey Butcher Protein [Mass/Vol] 7.0 g/dL Normal 6.4-8.2 [facility] Comment on above: Performed By: #### C BCROSIE #### [facility] [address] [address] [address] Jersey Butcher Sodium [Moles/Vol] 139 mmol/L Normal 136-145 [facility] Comment on above: Performed By: #### C MADDIE #### [facility] [address] [place] [address] Dr. Jersey Butcher Urea nitrogen [Mass/Vol] 17.0 mg/dL Normal 7.0-18.0 [facility] Comment on above: Performed By: #### C MADDIE #### [facility] [address] [address] [address] Jersey Butcher Urea nitrogen/Creatinine [Mass ratio] 16.3 mg/mg Normal [facility] Comment on above: Performed By: #### C MADDIE #### [facility] [address] [address] [address] LSPINE WO CONon [...] DONG BUNDY Date: 2021-12-10 22:56 Normal [facility] CBC AUTO DIFFon 11-07-2021 BASO # 0.0 103/ul Normal 0.0-0.1 [facility] Comment on above: Performed By: #### T SH, BNP, HSTROPN, CMP #### [facility] [address] [address] [address] Jersey Butcher Basophils/100 WBC (Bld) 0.4 % Normal 0.2-2.0 [facility] Comment on above: Performed By: #### T SH, BNP, HSTROPN, CMP #### [facility] [address] [place] [address] Dr. Jersey Butcher EO # 0.1 103/ul Normal 0.0-0.7 [facility] Comment on above: Performed By: #### T SH, BNP, HSTROPN, CMP #### [facility] [address] [place] [address] Dr. Jersey Butcher Eosinophils/100 WBC (Bld) 1.1 % Normal 0.9-7.0 [facility] Comment on above: Performed By: #### T SH, BNP, HSTROPN, CMP #### [facility] [address] [place] [address] Dr. Jersey Butcher Erythrocyte distribution width (RBC) [Ratio] 12.3 % Normal 11.0-15.0 [facility] Comment on above: Performed By: #### T SH, BNP, HSTROPN, CMP #### [facility] [address] [place] [address] Dr. Jersey Butcher Hematocrit (Bld) [Volume fraction] 44.9 % Normal 42.0-54.0 [facility] Comment on above: Performed By: #### T SH, BNP, HSTROPN, CMP #### [facility] [address] [place] [address] Dr. Jersey Butcher Hemoglobin (Bld) [Mass/Vol] 15.2 g/dL Normal 14.0-18.0 [facility] Comment on above: Performed By: #### T SH, BNP, HSTROPN, CMP #### [facility] [address] [place] [address] Dr. Jersey Butcher IG # 0.02 10e3/ul Normal 0.00-0.03 [facility] Comment on above: Performed By: #### T SH, BNP, HSTROPN, CMP #### [facility] [address] [place] [address] Dr. Jersey Butcher IG % 0.2 % Normal 0.0-0.5 [facility] Comment on above: Performed By: #### T SH, BNP, HSTROPN, CMP #### [facility] [address] [place] [address] Dr. Jersey Butcher LYMPH # 1.8 103/ul Normal 1.2-3.8 [facility] Comment on above: Performed By: #### T SH, BNP, HSTROPN, CMP #### [facility] [address] [place] [address] Dr. Jersey Butcher Lymphocytes/100 WBC (Bld) 22.5 % Normal 20.5-60.0 [facility] Comment on above: Performed By: #### T SH, BNP, HSTROPN, CMP #### [facility] [address] [place] [address] Dr. Jersey Butcher MANUAL DIFF REQ NO Normal [facility] Comment on above: Performed By: #### T SH, BNP, HSTROPN, CMP #### [facility] [address] [place] [address] Dr. Jersey Butcher MCH (RBC) [Entitic mass] 31.6 pg Normal 25.9-34.0 [facility] Comment on above: Performed By: #### T SH, BNP, HSTROPN, CMP #### [facility] [address] [place] [address] Dr. Jersey Butcher MCHC (RBC) [Mass/Vol] 33.9 g/dL Normal 29.9-35.2 [facility] Comment on above: Performed By: #### T SH, BNP, HSTROPN, CMP #### [facility] [address] [place] [address] Dr. Jersey Butcher MCV (RBC) [Entitic vol] 93.3 fL Normal 80.0-94.0 [facility] Comment on above: Performed By: #### T SH, BNP, HSTROPN, CMP #### [facility] [address] [place] [address] Dr. Jersey Butcher MONO # 0.9 103/ul Critically high 0.3-0.8 [facility] Comment on above: Performed By: #### T SH, BNP, HSTROPN, CMP #### [facility] [address] [place] [address] Dr. Jersey Butcher Monocytes/100 WBC (Bld) 11.1 % Normal 1.7-12.0 [facility] Comment on above: Performed By: #### T SH, BNP, HSTROPN, CMP #### [facility] [address] [place] [address] Dr. Jersey Butcher NEUT # 5.2 103/ul Normal 1.4-6.5 [facility] Comment on above: Performed By: #### T SH, BNP, HSTROPN, CMP #### [facility] [address] [place] [address] Dr. Jersey Butcher Neutrophils/100 WBC (Bld) 64.7 % Normal 43.0-75.0 [facility] Comment on above: Performed By: #### T SH, BNP, HSTROPN, CMP #### [facility] [address] [place] [address] Dr. Jersey Butcher Platelet mean volume (Bld) [Entitic vol] 10.1 fL Normal 9.5-13.5 [facility] Comment on above: Performed By: #### T SH, BNP, HSTROPN, CMP #### [facility] [address] [place] [address] Dr. Jersey Butcher PLT 265 103/ul Normal 150-450 [facility] Comment on above: Performed By: #### T SH, BNP, HSTROPN, CMP #### [facility] [address] [place] [address] Dr. Jersey Butcher RBC 4.81 106/ul Normal 4.70-6.10 [facility] Comment on above: Performed By: #### T SH, BNP, HSTROPN, CMP #### [facility] [address] [place] [address] Dr. Jersey Butcher WBC 8.1 103/ul Normal 4.0-11.0 [facility] Comment on above: Performed By: #### T SH, BNP, HSTROPN, CMP #### [facility] [address] [place] [address] CHEST WO CONon [...] EUSEBIA VICTORIA Date: 2021-11-06 23:56 Normal [facility] PROF 14(COMP METB)on 022 Albumin [Mass/Vol] 3.5 g/dL Normal 3.4-5.0 [facility] Comment on above: Performed By: #### C [facility] #### [facility] [address] [address] [address] Jersey Butcher Albumin/Globulin [Mass ratio] 1.0 {ratio} Normal [facility] Comment on above: Performed By: #### C VDTBH #### [facility] [address] [address] [address] Jersey Butcher ALP [Catalytic activity/Vol] 117 U/L Critically high 46-116 [facility] Comment on above: Performed By: #### C VDTBH #### [facility] [address] [address] [address] Jersey Butcher ALT [Catalytic activity/Vol] 39 U/L Normal 16-63 [facility] Comment on above: Performed By: #### C VDTBH #### [facility] [address] [place] [address] Dr. Jersey Butcher Anion gap [Moles/Vol] 9.3 mmol/L Normal [facility] Comment on above: Performed By: #### C VDTBH #### [facility] [address] [place] [address] Dr. Jersey Butcher AST [Catalytic activity/Vol] 20 U/L Normal 15-37 [facility] Comment on above: Performed By: #### C VDTBH #### [facility] [address] [place] [address] Dr. Jersey Butcher Bilirubin [Mass/Vol] 0.4 mg/dL Normal 0.2-1.0 [facility] Comment on above: Performed By: #### C VDTBH #### [facility] [address] [address] [address] Jersey Butcher Calcium [Mass/Vol] 9.1 mg/dL Normal 8.5-10.1 [facility] Comment on above: Performed By: #### C VDTBH #### [facility] [address] [place] [address] Dr. Jersey Butcher Chloride [Moles/Vol] 99 mmol/L Normal 98-107 [facility] Comment on above: Performed By: #### C VDTBH #### [facility] [address] [place] [address] Dr. Jersey Butcher CO2 [Moles/Vol] 33.2 mmol/L Critically high 21.0-32.0 [facility] Comment on above: Performed By: #### C VDTBH #### [facility] [address] [place] [address] Dr. Jersey Butcher Creatinine [Mass/Vol] 1.21 mg/dL Normal 0.70-1.30 [facility] Comment on above: Performed By: #### C VDTBH #### [facility] [address] [place] [address] Dr. Jersey Butcher EGFR-AF CHADIAN >60 Normal >=[address] [facility] Comment on above: Performed By: #### C VDTBH #### [facility] [address] [place] [address] Dr. Jersey Butcher EGFR-NON AF CHADIAN >60 Normal >=60 [facility] Comment on above: Performed By: #### C VDTBH #### [facility] [address] [place] [address] Dr. Jersey Butcher Globulin (S) [Mass/Vol] 3.5 g/dL Normal [facility] Comment on above: Performed By: #### C VDTBH #### [facility] [address] [place] [address] Dr. Jersey Butcher Glucose [Mass/Vol] 102 mg/dL Normal 74-106 [facility] Comment on above: Performed By: #### C VDTBH #### [facility] [address] [place] [address] Dr. Jersey Butcher Potassium [Moles/Vol] 3.5 mmol/L Normal 3.5-5.1 [facility] Comment on above: Performed By: #### C VDTBH #### [facility] [address] [place] [address] Dr. Jersey Butcher Protein [Mass/Vol] 7.0 g/dL Normal 6.4-8.2 [facility] Comment on above: Performed By: #### C VDTBH #### [facility] [address] [place] [address] Dr. Jersey Butcher Sodium [Moles/Vol] 138 mmol/L Normal 136-145 [facility] Comment on above: Performed By: #### C VDTBH #### [facility] [id number] Jersey Butcher Urea nitrogen [Mass/Vol] 19.0 mg/dL Critically high 7.0-18.0 [facility] Comment on above: Performed By: #### C VDTBH #### [facility] [address] [place], [place] [address] Dr. Jersey Butcher Urea nitrogen/Creatinine [Mass ratio] 15.7 mg/mg Normal [facility] Comment on above: Performed By: #### C VDTBH #### [facility] [id number] Jersey Butcher XR CHEST 1 Von [...] MARCO ANTONIO FRIEDMAN Date: 2021-11-06 22:36 Normal [facility] IO EKG Electrocardiogram- 12 Leadon 04-11-2021 IO EKG Electrocardiogram- 12 Lead See Scanned Document [facility] [employer] [facility] 600 DO Work Phone: Tobacco Screening.on 021 Fall risk assessment a) No falls within the last year [facility] 600 DO Work Phone: Tobacco use status [facility]PHS b) No [facility] 600 DO Work Phone: Vital Signs Date Time Vital Sign Value Performing Clinician Facility 07-19-2023 09:48-0500 Body height 172.7 cm Eusebia Terrell ARABIC TRANSLATOR Work Phone: [facility] 07-19-2023 09:48-0500 Body mass index (BMI) [Ratio] 56.2 kg/m2 Eusebia Shahz ARABIC TRANSLATOR Work Phone: [facility] 07-19-2023 09:48-0500 Body temperature 97.5 [degF] Eusebia Shahz ARABIC TRANSLATOR Work Phone: [facility] 07-19-2023 09:48-0500 Body weight 167.65 kg Eusebia Shahz ARABIC TRANSLATOR Work Phone: [facility] 07-19-2023 09:48-0500 Diastolic blood pressure 88 mm[Hg] Eusebia Lawholz ARABIC TRANSLATOR Work Phone: [facility] 07-19-2023 09:48-0500 Heart rate 95 /min Eusebia Shahz ARABIC TRANSLATOR Work Phone: [facility] 07-19-2023 09:48-0500 Respiratory rate 24 /min Eusebiakelley Lawmaeganz ARABIC TRANSLATOR Work Phone: [facility] 07-19-2023 09:48-0500 SaO2% (BldA) [Mass fraction] 95 % Eusebiakelley Shahz ARABIC TRANSLATOR Work Phone: [facility] 07-19-2023 09:48-0500 Systolic blood pressure 130 mm[Hg] Eusebia Shahz ARABIC TRANSLATOR Work Phone: [facility] 04-13-2023 12:07-0400 Body height 172.7 cm Justyn Mondragon MD Work Phone: [facility] 04-13-2023 12:07-0400 Body mass index (BMI) [Ratio] 54.74 kg/m2 Justyn Mondragon MD Work Phone: [facility] 04-13-2023 12:07-0400 Body weight 163.29 kg Justyn Mondragon MD Work Phone: [facility] 04-13-2023 12:07-0400 Diastolic blood pressure 80 mm[Hg] Justyn Mondragon MD Work Phone: [facility] 04-13-2023 12:07-0400 Systolic blood pressure 134 mm[Hg] Justyn Mondragon MD Work Phone: [facility] 10-02-2022 11:00-0400 52 1 Eusebia Rondon Socorrohholz Work Phone: [facility] 305 DO Work Phone: Comment on above: [id number] 07-19-2022 10:33-0500 Body height 173.99 cm Eusebia Rondon Aichholz Work Phone: [facility] 305 DO Work Phone: 07-19-2022 10:33-0500 Body mass index (BMI) [Ratio] 50.68 kg/m2 Eusebia Nela Aichholz Work Phone: [facility] 305 DO Work Phone: 07-19-2022 10:33-0500 Body surface area Derived from formula 2.57 m2 Eusebia Nela Aichholz Work Phone: [facility] 305 DO Work Phone: 07-19-2022 10:33-0500 Body weight 153.41 kg Eusebia Rondon Socorrohholz Work Phone: [facility] 305 DO Work Phone: 07-19-2022 10:33-0500 Diastolic blood pressure 82 mm[Hg] Eusebia Nela Aichholz Work Phone: [facility] 305 DO Work Phone: 07-19-2022 10:33-0500 Heart rate 64 /min Eusebia Nela Aichholz Work Phone: [facility] 305 DO Work Phone: 07-19-2022 10:33-0500 Systolic blood pressure 132 mm[Hg] Eusebia Nela Aichholz Work Phone: [facility] 305 DO Work Phone: 01-12-2022 14:42-0400 Body height 172.72 cm Eusebia Rondon Aichholz Work Phone: [facility] 600 DO Work Phone: 01-12-2022 14:42-0400 Body mass index (BMI) [Ratio] 51.7 kg/m2 Eusebia Rondon Aichholz Work Phone: [facility] 600 DO Work Phone: 01-12-2022 14:42-0400 Body surface area Derived from formula 2.56 m2 Euseiba Rondon Aichholz Work Phone: [facility] 600 DO Work Phone: 01-12-2022 14:42-0400 Body weight 154.22 kg Eusebia Rondon Aichholz Work Phone: [facility] 600 DO Work Phone: 01-12-2022 14:42-0400 Diastolic blood pressure 80 mm[Hg] Eusebia Rondon Aichholz Work Phone: [facility] 600 DO Work Phone: 01-12-2022 14:42-0400 Heart rate 66 /min Eusebia Rondon Aichholz Work Phone: [facility] 600 DO Work Phone: 01-12-2022 14:42-0400 Systolic blood pressure 136 mm[Hg] Eusebia Rondon Aichholz Work Phone: [facility] 600 DO Work Phone: 04-11-2021 12:45-0400 Body height 172.72 cm Eusebia Rondon Aichholz Work Phone: [facility] [employer] 600 DO Work Phone: 04-11-2021 12:45-0400 Body mass index (BMI) [Ratio] 53.52 kg/m2 Eusebia Terrell Work Phone: [facility] 600 DO Work Phone: 04-11-2021 12:45-0400 Body surface area Derived from formula 2.6 m2 Eusebia Rondon Socorrofernandoholayden Work Phone: [facility] 600 DO Work Phone: 04-11-2021 12:45-0400 Body weight 159.67 kg Eusebia Rondon Socorrofernandogallo Work Phone: [facility] [employer] 600 DO Work Phone: 04-11-2021 12:45-0400 Diastolic blood pressure 78 mm[Hg] Eusebia Terrell Work Phone: [facility] [employer] 600 DO Work Phone: 04-11-2021 12:45-0400 Heart rate 74 /min Eusebia Terrell Work Phone: [facility] [employer] 600 DO Work Phone: 04-11-2021 12:45-0400 Systolic blood pressure 124 mm[Hg] Eusebia Rondon Socorrofernandogallo Work Phone: [facility] [employer] 600 DO Work Phone: Encounters Encounter Date Encounter Type Care Provider Facility Start: 07-30-2023 Refill Eusebia Terrell ARABIC TRANSLATOR Work Phone: [facility] Comment on above: Pulmonary emphysema, unspecified emphysema type (CMS/HCC) (Primary Dx) Start: 07-26-2023 End: 07-26-2023 [facility] Start: 07-19-2023 End: 07-19-2023 ambulatory EUSEBIA XANDER Not Available Start: 07-19-2023 End: 07-19-2023 Office outpatient visit 25 minutes Eusebia Terrell NP [facility] Phone[facility] Comment on above: Screening for prosta te [...] Not Available Start: 05-18-2023 End: 06-18-2023 ambulatory [facility] Start: 04-13-2023 End: 04-13-2023 [facility] Start: 04-13-2023 End: 04-13-2023 Office outpatient visit 25 minutes Justyn Mondragon MD Work Phone: [facility] Comment on above: CAD S/P percutaneous coronary angioplasty; Paroxysmal atrial fibrillation (CMS/HCC); Old [place] (myocardial infarction); Mixed hyperlipidemia; Primary hypertension; Obstructive sleep apnea syndrome; Morbid obesity with BMI of 50.0-59.9, adult (CMS/HCC); Former smoker; Status post ablation of incompetent vein using laser Start: 10-26-2022 End: 10-26-2022 ambulatory NATALIA TERRELL Facility: Start: 10-05-2022 Chart Update Eusebia menendez Work Phone: [facility] 305 DO Work Phone: Start: 10-03-2022 Chart Update Eusebia menendez Work Phone: [facility] 305 DO Work Phone: Start: 10-03-2022 [address] Mrs. Eusebia Rondon Xander Dayne acility:[id number] Start: 10-02-2022 ambulatory Mrs. Eusebia Rondon Xander Dayne acility:[id number] Start: 09-15-2022 Telephone encounter Eusebia Rondon chholz Work Phone: [facility] 305 DO Work Phone: Start: 09-15-2022 End: 09-16-[address] DOCTOR HERNANDEZ Facility:H1 Start: 08-27-2022 End: 08-27-2022 ambulatory TED DE LUNA . Facility:H1 Start: 08-25-2022 Telephone encounter Eusebia Nela Serna chholz Work Phone: [facility] 305 DO Work Phone: Start: 08-24-2022 End: 08-25-[address] KESHAWN PECK Facility:H1 Start: 07-27-2022 STRESS KARIS, Provider : [address] ,[id number], Status: Pen, Time: 2:00 PM Eusebia Terrell Work Phone: [facility] Work Phone: Start: 07-19-2022 Office outpatient vi sit 25 minutes Eusebia Terrell Work Phone: [facility] 305 DO Work Phone: Start: 07-19-2022 ambulatory JUSTYN MONDRAGON Facility:[id number] Start: 06-01-2022 End: 06-04-2022 ambulatory MIRZA GUZMÁN Facility:H1 Start: 05-29-2022 End: 05-29-2022 ambulatory NATALIA TERRELL Facility:H1 Start: 05-26-2022 End: 05-26-2022 ambulatory ROBERTA PERRIN Facility:H1 Start: 05-20-2022 End: 05-20-[address] SALVADOR WALTERS . Facility:H1 Start: 04-03-[address] Madison Christian Facility: Start: 02-04-2022 End: 02-04-2022 ambulatory NATALIA TERRELL Facility:H1 Start: 01-26-2022 End: 01-26-2022 ambulatory BOOK MENDER EUSEBIA XANDER Facility:H1 Start: 01-12-2022 Office outpatient vi sit 25 minutes Eusebia Nela Quintanillahholz Work Phone: [facility] 250 DO Work Phone: Start: 01-12-2022 Patient encounter procedure Eusebia Nela Quintanillahholz Work Phone: [facility] 600 DO Work Phone: Start: 01-12-2022 ambulatory NATALIA Parsons y: Start: 01-11-2022 End: 01-12-2022 ambulatory BOOK MENDER EUSEBIA XANDER Facility:H1 Start: 01-08-2022 End: 01-08-2022 ambulatory BOOK MENDER EUSEBIA SOCORROHMAEGANZ Facility:H1 Start: 12-10-2021 End: 12-11-2021 ambulatory BOOK MENDER EUSEBIA XANDER Facility:H1 Start: 11-06-2021 End: 11-07-2021 ambulatory BOOK MENDER EUSEBIA SOCORROHHOLZ Facility:H1 Start: 08-02-[address] Madison Christian Facility:[id number] Start: 07-18-2021 Telephone encounter Eusebia Nela wayne Work Phone: [facility] 250 DO Work Phone: Start: 05-09-2021 Rx Renewal Eusebiakelley Quintanillahho lz Work Phone: [facility] 250 DO Work Phone: Start: 04-11-2021 Office outpatient vi sit 25 minutes Eusebia Nela Aichholz Work Phone: [facility] 600 DO Work Phone: Start: 04-04-2021 Rx Renewal Eusebia Rondon Socorrohho lz Work Phone: [facility] 250 DO Work Phone: Start: 08-23-2017 Ambulatory MADISON Escobar lity:[id number] Echocardiogram normal Eusebia Rondon chholz Work Phone: [facility] 600 DO Work Phone: Preoperative state Eusebia Rondon Aichh olz Work Phone: [facility] 600 DO Work Phone: Procedures Date Procedure Procedure Detail Performing Clinician Start: 04-12-2023 End: 04-13-2023 History of percutaneous transluminal coronary angioplasty History of PTCA Justyn Mondragon MD Work Phone: Start: 09-21-2022 History of placement of stent for coronary artery disease History of coronary angioplasty with insertion of stent Eusebia Terrell ARABIC TRANSLATOR Work Phone: Start: 01-11-2022 PSA screening BOOK MENDER EUSEBIA TERRELL Comment on above: Performed By: #### T SH, BNP, HSTROPN, CMP #### [facility] [address] [place] [address] Dr. Jersey Butcher Start: 05-28-2017 Colonoscopy Eusebia veliz ARABIC TRANSLATOR Work Phone: Cardiac catheterization Eusebia Nela Quintanillahholz Work Phone: Cholecystectomy Eusebia Rondon Socorroh galol Work Phone: Comment on above: [id number] Romero; Colonoscopy Eusebia Quintanillahhol z Work Phone: Comment on above: [id number] Haley; History of percutane ous transluminal coronary [...] procedure 10/17/2023 10:00 AM EDT Office Visit [facility] [address] [place] [address] Justyn Mondragon MD [address] [facility] Medical Office Bldg, [facility] [address] [place] [address] [facility] Start: 08-14-2023 End: 08-14-2023 Patient encounter procedure 08/14/2023 10:00 AM EST Office Visit [facility] [address] [place] [address] Mirza Guzmán MD [address] [place] [address] [facility] Start: 07-19-2023 FUV, Provider: Justyn Mondragon, Status: Pen, Time: 1:00 PM FUV, Provider: Justyn Mondragon, Status: Pen, Time: 1:00 [address] [address] DO Work Phone: Start: 07-19-2023 End: 07-19-2024 Comprehensive metabolic 2000 panel - Serum or Plasma Comprehensive metabolic panel Lab Routine Mixed hyperlipidemia (CMS/HCC) Primary hypertension (CMS/HCC) Pre-diabetes Expected: 07/19/2023 (Approximate), Expires: 07/19/2024 [facility] Comment on above: Expected: 07/19/2023 (Approximate), Expires: 07/19/2024 Start: 07-19-2023 End: 07-19-2024 Hemoglobin A1c measurement Hemoglobin A1c Lab Routine Pre-diabetes Expected: 07/19/2023 (Approximate), Expires: 07/19/2024 [facility] Comment on above: Expected: 07/19/2023 (Approximate), Expires: 07/19/2024 Start: 07-19-2023 End: 07-19-2024 Lipid 1996 panel - Serum or Plasma Lipid panel Lab Routine Mixed hyperlipidemia (CMS/HCC) Expected: 07/19/2023 (Approximate), Expires: 07/19/2024 [facility] Comment on above: Expected: 07/19/2023 (Approximate), Expires: 07/19/2024 Start: 07-19-2023 End: 07-19-2024 Microalbumin/Creatinine panel in random Urine Microalbumin / creatinine, urine ratio Lab Routine Primary hypertension (CMS/HCC) Pre-diabetes Expected: 07/19/2023 (Approximate), Expires: 07/19/2024 [facility] Comment on above: Expected: 07/19/2023 (Approximate), Expires: 07/19/2024 Start: 07-19-2023 End: 07-19-2024 Prostate specific Ag [Mass/volume] in Serum or Plasma PSA Lab Routine Screening for prostate cancer Expected: 07/19/2023 (Approximate), Expires: 07/19/2024 [facility] Work Phone: Comment on above: Expected: 07/19/2023 (Approximate), Expires: 07/19/2024 Start: 07-19-2023 End: 07-19-2024 Urinalysis complete panel - Urine Urinalysis with reflex microscopic (clean catch) Lab Routine Primary hypertension (CMS/HCC) Pre-diabetes Expected: 07/19/2023 (Approximate), Expires: 07/19/2024 [facility] Comment on above: Expected: 07/19/2023 (Approximate), Expires: 07/19/2024 Start: 07-19-2023 End: 07-19-2023 Patient encounter procedure 07/19/2023 1:00 PM EST Office Visit [facility] [address] [phone] Justyn Mondragon MD [address] [facility] Medical Office Bldg, [facility] [address] [place] [address] [facility] Start: 02-16-2023 Influenza vaccination Influenza Vacc ine (#1) [facility] Start: 10-03-2022 REST ONLY, Provider: DAYANNA WAREI NUCLEAR 01,[id number], Status: Pen, Time: 10:00 AM REST ONLY, Provider: DAYANNA HHVI NUCLEAR 01,[id number], Status: Pen, Time: 10:00 AM [facility] Work Phone: Start: 10-02-2022 STRESSNUC2, Provider : DAYANNA HHVI NUCLEAR 01,[id number], Status: Pen, Time: 11:00 AM STRESSNUC2, Provider: DAYANNA HHVI NUCLEAR 01,[id number], Status: Pen, Time: 11:00 AM [facility] Work Phone: Start: 07-27-2022 STRESS KARIS, Provider : [id number] HHVI NUCLEAR 01,[id number], Status: Pen, Time: 2:00 PM STRESS KARIS, Provider: [id number] HHVI NUCLEAR 01,[id number], Status: Pen, Time: 2:00 PM [facility] Work Phone: Start: 03-29-2022 FUV, Provider: Madison Christian, Status: Pen, Time: 1:30 PM FUV, Provider: Madison Christian, Status: Pen, Time: 1:30 PM [facility] 600 DO Work Phone: Start: 07-05-2021 FUV, Provider: Madison Christian, Status: Pen, Time: 3:20 PM FUV, Provider: Madison Christian, Status: Pen, Time: 3:20 PM [facility] 250 DO Work Phone: Start: 2013 Zoster Vaccines (1 o f 2) Zoster Vaccines (1 of 2) [facility] Start: 1985 DTaP/Tdap/Td Vaccine s (1 - Tdap) DTaP/Tdap/Td Vaccines (1 - Tdap) [facility] Start: 1982 Hepatitis A Vaccines (1 of 2 - Risk 2-dose series) Hepatitis A Vaccines (1 of 2 - Risk 2-dose series) [facility] Start: 1981 Diabetes mellitus screening Diabetes Screening [facility] Start: 1981 [facility]atitis [facility]: 1969 Pneumococcal Vaccine : Pediatrics (0 to 5 Years) and At-Risk Patients (6 to 64 Years) (1 - PCV) Pneumococcal Vaccine: Pediatrics (0 to 5 Years) and At-Risk Patients (6 to 64 Years) (1 - PCV) [facility] Start: 1964 MMR Vaccines (1 of 1 - Standard series) MMR Vaccines (1 of 1 - Standard series) [facility] Start: 1963 COVID-19 Vaccine (#1) COVID-19 Vacci ne (#1) [facility] Start: 1963 Hepatitis B Vaccines (1 of 3 - 3-dose series) Hepatitis B Vaccines (1 of 3 - 3-dose series) [facility] Start: 1963 HIV screening HIV Screening [facility] Start: 1963 Lipid panel Lipid Panel [facility] Start: 1963 Screening for malign ant neoplasm of colon [facility] Start: 1963 Yearly Adult Physical Yearly Adult P hysical [facility] Payers Date Payer Category Payer Medicaid [id number] 2023 Unknown [id number] 2022 Unknown [id number] 2022 Unknown 2022 Unknown 1 1965 Unknown [id number] 2.16. 840.1.494356.3.579.2.356 1963 Unknown [id number] 2.16 840.1.877114.3.579.2.356 1963 Unknown [id number] 2.16 840.1.808978.3.579.2.356 1963 Unknown [id number] 2.16. 840.1.094842.3.579.2.356 1963 Unknown [id number] 2.16.84 0.1.095540.3.579.2.593 1963 Unknown [id number] 2.16.84 0.1.477622.3.579.2.593 1963 Unknown [id number] 2.16.84 0.1.452950.3.579.2.593 1963 Unknown [id number] 2.16.84 0.1.432086.3.579.2.593 1963 Unknown [id number] 2.16.84 0.1.313419.3.579.2.593 1963 Unknown [id number] 2.16.84 0.1.489730.3.579.2.593 1963 Unknown [id number] 2.16.84 0.1.618527.3.579.2.593 1963 Unknown [id number] 2.16.84 0.1.871018.3.579.2.593 1963 Unknown [id number] 2.16.84 0.1.871916.3.579.2.593 1963 Unknown [id number] 2.16.84 0.1.106134.3.579.2.593 1963 Unknown [id number] 2.16.84 0.1.131612.3.579.2.593 1963 Unknown [id number] 2.16.84 0.1.940678.3.579.2.593 1963 Unknown [id number] 2.16.84 0.1.629207.3.579.2.593 1963 Unknown [id number] 2.16.84 0.1.568337.3.579.2.593 1963 Unknown [id number] 2.16.8 40.1.776049.3.579.2.1068 1963 Unknown [id number] 2.16.8 40.1.008661.3.579.2.1068 1963 Unknown [id number] 2.16.8 40.1.657133.3.579.2.1244 1963 Unknown [id number] 2.16.84 0.1.056603.3.579.2.1259 1963 Unknown [id number] 2.16.84 0.1.512241.3.579.2.1259 1963 Unknown [id number] 2.16.840 .1.266311.3.579.2.1259 1963 Unknown [id number] 2.16.840 .1.487551.3.579.2.1259 1963 Unknown [id number] 2.16.8 40.1.796865.3.579.2.1286 1963 Unknown [id number] 2.16.84 0.1.909838.3.579.2.1286 1959 Private Health Insurance [id number] 1959 Unknown [id number] Self-pay Self Pay [id number] Social History Date Type Detail Facility Tobacco smoking stat [facility] Unknown if ever smoked [facility] Start: 1965 Sex Assigned At Male F [facility] Start: 07-19-2023 Daily caffeine consumption Daily caffeine consumption [facility] 600 DO Work Phone: Comment on above: 2 (24oz) cups of cof fee daily; Quit 07/26/2012; Start: 04-13-2023 End: 06-06-2023 Tobacco smoking status NHIS Ex-smoker [facility] End: 07-31-2012 History of tobacco use Current smoker [facility] Work Phone: End: 07-31-2012 History of tobacco use Cigarette Smoker [facility] Work Phone: Start: 04-13-2023 Tobacco use and exposure Smokeless tobacco non-user [facility] Work Phone: Start: 04-13-2023 Alcohol intake Lifetime non-d raisa (finding) [facility] Work Phone: Start: 1965 Sex Assigned At Not on file [facility] Work Phone: Start: 07-19-2023 Gender identity Not on file [facility] Work Phone: Start: 04-03-2023 End: 04-13-2023 Exposure to SARS-CoV-2 (event) Not sure [facility] Start: 07-19-2023 Alcohol intake Ex-drinker (finding) [...] Associated Problem(s): Arrhythmia Has appt with new vat washer next week Cont b preet, anti coagulation, Needs to wear PAP Associated Problem(s): Bilateral lower extremity edema stable Associated Problem(s): Chronic atrial fibrillation (HCC) (CMS/HCC) (Resolved 07/19/2023) Remains in a fib, ,cont b preet, anti coagulation Recommend PAP use Fu with new vat washer next week Associated Problem(s): Primary hypertension (CMS/HCC) Stable on current meds Associated Problem(s): Hypoxia O2 Associated Problem(s): COPD (chronic obstructive pulmonary disease) with emphysema (CMS/HCC) Continue with aircraft armament mechanic, as well as inhalers, etc Associated Problem(s): CATERINA (obstructive sleep apnea) Non complaint with PAP use Explained to pt why important to wear for heart failure, afib, and copd, will also help his LE edema Needs to call his aircraft armament mechanic Very SOB wheezing Both legs seeping- legs [...] appt with cardiology for next week at [facility]. No chest pain or dizziness Is not wearing his CPAP , states it dries him out too much, has not been to his aircraft armament mechanic recently either SUBJECTIVE: MEDICATIONS: Current Outpatient Medications [...] After use, clean tip and replace cap. Oaitpfbtdkv-Khratdcok-Akuaoa (Trelegy Ellipta) 100-62.5-25 MCG/ACT aerosol powder 1 [...] leg cellulitis 06/06/2023 CAD (coronary artery disease) ([facility]) COPD (chronic obstructive pulmonary disease) with emphysema ([facility]) 06/28/2023 Coronary artery disease involving igiugig coronary artery of igiugig heart without angina pectoris ([facility]) 05/25/2023 DENIES H/O BLOOD BORNE DISEASE Hyperlipidemia ([facility]) Hypoxia 06/28/2023 Myocardial infarction ([facility]) Obesity CATERINA (obstructive sleep apnea) 05/25/2023 Primary hypertension ([facility]) 05/25/2023 Superficial phlebitis and thrombophlebitis of left lower extremity Venous insufficiency of both lower extremities Past Surgical History: Procedure Laterality Date ANGIOPLASTY 2013 CHOLECYSTECTOMY 2016 KNEE SURGERY Left 04/15/2021 SCOPE - [facility] GREER ([facility]) family history includes Diabetes in his [...] This Visit Arrhythmia Has appt with new vat washer next week Cont b preet, anti coagulation, [...] his LE edema Needs to call his aircraft armament mechanic Hyperlipidemia (CMS/HCC) Relevant Orders Comprehensive metabolic panel Lipid panel Morbid obesity with BMI of 50.0-59.9, adult (CMS/HCC) Bilateral lower extremity edema stable COPD (chronic obstructive pulmonary disease) with emphysema (CMS/HCC) Continue with aircraft armament mechanic, as well as inhalers, etc Hypoxia O2 Venous insufficiency of both lower extremities Screening for prostate cancer - Primary Relevant Orders PSA Pre-diabetes Relevant Orders Comprehensive metabolic panel Microalbumin / creatinine, urine ratio Urinalysis with reflex microscopic (clean catch) Hemoglobin A1c documented in this encounter [facility] 04-13-2023 History of Present illness Narrative Images from the original note were not included. CARDIOLOGY OFFICE VISIT CHIEF COMPLAINT HISTORY OF PRESENT ILLNESS The patient is being seen after recent hospitalization at [facility]. He states that he had atrial fibrillation [...] coronary angioplasty Paroxysmal atrial fibrillation (CMS/HCC) Old [place] (myocardial infarction) Mixed hyperlipidemia Primary hypertension Obstructive sleep apnea syndrome Morbid obesity with BMI of 50.0-59.9, adult (CMS/HCC) Former smoker Status post ablation of incompetent vein using laser @ASSESSMENTANDPLANTEXT@ documented in this encounter [facility] Work Phone: 04-13-2023 Instructions Enrike Orozco [...] Justyn Ramirez MD documented in this encounter [facility] Work Phone: 08-25-2022 Note PROCEDURE: XR [...] by: KESHAWN PECK Date: 2022-08-25 07:01 [facility] Chief complaint Narrative - Reported ELYSE DUONG is being seen for a cardiovascular evaluation . [facility] Evaluation note Diagnosis CAD S/P percutaneous coronary angioplasty Paroxysmal atrial fibrillation (CMS/HCC) Atrial fibrillation Old [place] (myocardial infarction) Old myocardial infarction Mixed hyperlipidemia Primary hypertension Unspecified essential hypertension Obstructive sleep apnea syndrome Obstructive sleep apnea (adult) (pediatric) Morbid obesity with BMI of 50.0-59.9, adult (CMS/HCC) Former smoker Personal history of tobacco use, presenting hazards to health Status post ablation of incompetent vein using laser documented in this encounter [facility] Work Phone: Evaluation note* Diagnosis Screening [...] coronary artery with known occlusion of his igiugig circ. He remains active but difficult to [...] stress testing to clear him for surgery. [facility] 600 DO Work Phone: History of Present [...] to prepare this document. [facility] 305 DO Work Phone: History of Present [...] software was utilized to prepare this document. [facility] Work Phone: Summary Purpose Family History Relationship [...] DATE CREATED AUTHOR AUTHOR'S ORGANIZ ATION 07/20/2022 [facility] DATE CREATED AUTHOR AUTHOR'S ORGANIZ ATION 07/20/2022 [employer] DATE CREATED AUTHOR AUTHOR'S ORGANIZ ATION 10/29/2022 [facility] DATE CREATED AUTHOR AUTHOR'S ORGANIZ ATION 12/23/2022 [facility] DATE CREATED AUTHOR AUTHOR'S ORGANIZ ATION 04/16/2023 [facility] DATE CREATED AUTHOR AUTHOR'S ORGANIZ ATION 07/20/2023 [facility] EPIC DATE CREATED AUTHOR AUTHOR'S ORGANIZ ATION 07/30/2023 [facility] Reason for Visit (unrecogniz ed section and content) Reason Comments Hospital Follow-up Care Teams (unrecognized sec tion and content) Outdoor Recreation Specialist Relationship Specialty Start Date End Date Eusebia Terrell, SENIOR ADMINISTRATIVE ASSOCIATE-BOOK MENDER [address] [place] [address] PCP - General 11/04/19 Outdoor Recreation Specialist Relationship Specialty Start Date End Date Mirza Guzmán MD [address] [place] [phone] PCP - General Family Medicine 06/05/23 Eusebia Terrell NP [address] [place] [phone] Nurse Practitioner Family Medicine 03/18/23 Outdoor Recreation Specialist Relationship Specialty Start Date End Date Mirza Guzmán MD [address] [place] [address] PCP - General Family Medicine 06/05/23 Eusebia Terrell NP [address] [place] [phone] Nurse Practitioner Family Medicine 03/18/23 FOR RECORDS [...] BE BASED ON THE PRIMARY CLINICAL RECORDS. [facility] [employer] [facility]. provides no warranty or guarantee of the accuracy or completeness of information in this document.
== END 2023-08-06 10:51 | disposition home or self-care (01) ==
LOC: EC 10:50
PROVIDERS: PCP Nurse Practitioner; Visit Provider Orthopaedic Surgery
DX: M25.561 Pain in right knee (principal)
CPT/HCPCS: 73564

== ENCOUNTER 2025-01-29 20:23 | Emergency (ER) | payer OTHER, SELFPAY ==
--- OUTSIDE RECORDS SUMMARY | 2025-01-24 23:51 | XMS_ITS | Encounter Summary ---
Author Organization [facility] tem Address [id number] [address] [place] [address] Care Team Providers Care Resource Coordinator Name Role Phone SocorrofernandogalloEusebia David GARNER-SUPERVISOR NUTRITIONAL YEAST Primary Care Provider Reason for Visit * Reason Comments Leg Pain Encounter Details Date Type Department Care Team (Late st Contact Info) Description 01/24/2025 11:51 PM EDT - 01/25/2025 1:57 AM EDT Emergency [facility] [address] [place] [address] Berry Mejia E, DO [address] [place], [place] [id number] Lower extremity edema (Primary Dx) Discharge Disposition: Home Social History Tobacco Use Types Packs/Day Years Used Date Smoking Tobacco: Former Cigarettes Q uit: 2013 Smokeless Tobacco: Never Alcohol Use Standard Drinks/Week Comments Never 0 (1 standard drink = 0.6 oz pur e alcohol) Childcare Answer Date Recorded Childcare Unknown 11/27/2018 Employment Answer Date Recorded Employment Unknown 11/27/2018 Hunger Screening Answer Date Recorded Within the past 12 months we worried whether our food would run out before we got money to buy more. Never True 01/24/2025 Within the past 12 months th e food we bought just didn't last and we didn't have money to get more. Never True 01/24/2025 Sex and Gender Information Value Date Recorded Sex Assigned at Not on file Legal Sex Male 11:30 AM EDT Gender Identity Not on file Sexual Orientation Not on file documented as of this encounter Last Filed Vital Signs Vital Sign Reading Time Taken Comments Blood Pressure 118/78 01/25/2025 1:45 AM EDT Pulse 79 01/25/2025 1:45 AM EDT Temperature 36.8 C (98.2 F) 01/24/2025 11:56 PM EDT Respiratory Rate 16 01/25/2025 1:45 AM EDT Oxygen Saturation 94% 01/25/2025 1:45 AM EDT Inhaled Oxygen Concentration - - Weight 163.3 kg (360 lb) 01/24/2025 11:56 PM EDT Height 175.3 cm (5' 9 ) 01/24/2025 11:56 PM EDT Body Mass Index 53.16 01/24/2025 11:56 PM EDT documented in this encounter Discharge Instructions * Discharge Instructions* Berry Mejia DO - 01/25/2025 1:35 AM EDT Continue taking your home medications as prescribed. Contact your PCP to schedule follow-up appointment in the next 24-48 hours. Return to the ED for worsening symptoms, Shortness of Breath, Fever, Chills, Nausea, Vomiting, difficulty walking or talking, weakness or any other concerning symptoms. * Attachments The following attachments cannot be sent through Care Everywhere. * Swelling (Indonesian) * Low-sodium diet (Indonesian) documented in this encounter Medications at Time of Discharge apixaban (ELIQUIS) 5 mg tablet Take 1 tablet (5 mg total) by mouth in the morning and 1 tablet (5 mg total) before bedtime. aspirin 81 mg chewable tablet Chew 2 tablets (162 mg total) and swallow in the morning. 2 in the morning. atorvastatin (LIPITOR) 40 mg tablet Take 1 tablet (40 mg total) by mouth in the morning. dilTIAZem CD (CARDIZEM CD) 240 mg 24 hr capsule Take 1 capsule (240 mg total) by mouth in the morning. FARXIGA 10 mg tabletIndications :Chronic diastolic heart failure (CMS-HCC),Coronar y artery disease involving manchester coronary artery of manchester heart without angina pectoris,Persiste nt atrial fibrillation (CMS-HCC) TAKE 1 TABLET (10 MG TOTAL) BY MOUTH IN THE MORNING 30 tablet 11 02/05/2024 fluticasone-umecl idin-vilanter (TRELEGY ELLIPTA) 100-62.5-25 mcg blister with device Inhale 1 puff in the morning. levalbuterol (XOPENEX HFA) 45 mcg/actuation inhaler Inhale 1-2 puffs every 4 (four) hours as needed. levalbuterol (XOPENEX) 1.25 mg/3 mL nebulizer solutionIndicatio ns:Chronic obstructive pulmonary disease, unspecified COPD type (CMS-HCC) INHALE 3 ML BY NEBULIZATION 4 (FOUR) TIMES A DAY NEEDED FOR WHEEZING. 360 mL 5 05/03/2023 losartan (COZAAR) 50 mg tablet Take 1 tablet (50 mg total) by mouth in the morning. metoprolol tartrate (LOPRESSOR) 50 mg tablet Take 1 tablet (50 mg total) by mouth in the morning and 1 tablet (50 mg total) before bedtime. 08/20/2023 nitroglycerin (NITROSTAT) 0.[address] 1 tablet (0.4 mg total) under the tongue every 5 (five) minutes as needed for chest pain. 05/14/2023 oxygen Inhale continuously. spironolactone (ALDACTONE) 25 mg tablet TAKE 1 TABLET (25 MG TOTAL) BY MOUTH IN THE MORNING 90 tablet 2 08/11/2024 torsemide (DEMADEX) 20 mg tabletIndications :Chronic diastolic heart failure (CMS-HCC),Coronar y artery disease involving manchester coronary artery of manchester heart without angina pectoris,Persiste nt atrial fibrillation (CMS-HCC) Take 1 tablet (20 mg total) by mouth daily. May take an additional 20 mg as needed for swelling, weight gain SOB 135 tablet 3 03/24/2024 documented as of this encounter ED Notes * Berry Mejia DO - 01/26/2025 6:03 AM EDT Images from the original note were not included. [facility] - EM[facility]GENCY Pt Name: Dmitriy Duong Birthdate: 1965 Chief Complaint: Chief Complaint Patient presents with Leg Pain History of Present Illness: Patient is a 59-year-old male who presents with left-sided leg pain. Patient notes that his legs will swell and weep and notes that for the past day or so it has been getting increasingly swollen. Patient notes that he has been taking his home meds denies any shortness of breath denies any fevers or chills or chest pain. Past Medical History: Past Medical History: Diagnosis Date Atrial fibrillation ([facility]) Bilateral lower extremity edema CAD (coronary artery disease) Hypertension Hypoxia Knee pain Lung nodule Mixed hyperlipidemia Morbid obesity ([facility]) Myocardial infarction ([facility]) Obesity Pre-diabetes Pulmonary emphysema ([facility]) Sleep apnea knee pain Superficial phlebitis Venous insufficiency Past Surgical History: Past Surgical History: Procedure Laterality Date CHOLECYSTECTOMY CORONARY STENT PLACEMENT 2013 KNEE SURGERY Family History: Family History Problem Relation Age of Onset Hypertension Mother Diabetes Mother Social History: Social History Socioeconomic History Marital status: Tobacco Use Smoking status: Former Current packs/day: 0.00 Types: Cigarettes Quit date: 2012 Years since quittin.6 Smokeless tobacco: Never Vaping Use Vaping status: Never Used Substance and Sexual Activity Alcohol use: Never Drug use: Never Sexual activity: Defer Other Topics Concern Caffeine Use Yes Comment: 2 hot chocolates this morning Social Drivers of Health Food Insecurity: No Food Insecurity (01/24/2025) Hunger Screening Food Insecurity - Worry: Never True Food Insecurity - Inability: Never True Review of Systems: Review of Systems Physical Exam: ED Triage Vitals [01/24/25 2356] Temp Heart Rate Resp BP SpO2 36.8 ??C (98.2 ??F) 85 16 131/76 98 % Temp Source Heart Rate Source Patient Position BP Location FiO2 (%) Oral Pulse Ox Sitting Left arm -- Vitals: 01/25/25 0015 01/25/25 0030 01/25/25 0100 01/25/25 0145 BP: (!) 124/95 118/76 100/67 118/78 Temp: TempSrc: Pulse: 83 77 70 79 Resp: 14 15 16 16 SpO2: 94% 94% 92% 94% MAP (mmHg): 105 90 92 Height: Weight: 94 Physical Exam Vitals reviewed. HENT: Head: Normocephalic and atraumatic. Eyes: Conjunctiva/sclera: Conjunctivae normal. Cardiovascular: Rate and Rhythm: Normal rate. Pulmonary: Effort: Pulmonary effort is normal. Breath sounds: Normal breath sounds. Abdominal: General: There is no distension. Palpations: Abdomen is soft. Musculoskeletal: General: Normal range of motion. Cervical back: Normal range of motion and neck supple. Right lower leg: Edema present. Left lower leg: Edema present. Comments: Bilateral 2+ pitting edema Skin: General: Skin is warm and dry. Neurological: General: No focal deficit present. Mental Status: He is alert and oriented to person, place, and time. GCS: GCS eye subscore is 4. GCS verbal subscore is 5. GCS motor subscore is 6. Procedure: Procedures Re-evaluation: Patient re-evaluated resting comfortably in bed no acute distress. Patient informed of unremarkablelab work creatinine in his around patient's baseline. Will give dose of Lasix as we do not have Demadex here. Patient informed to follow up with his PCP and adobe architect. Patient agreeable to plan. Medical Decision Making Patient is a 59-year-old male who presents with bilateral lower extremity edema will obtain CBC BMPBMP likely give diuretic after labs and re-evaluate. Amount and/or Complexity of Data Reviewed Labs: ordered. Decision-making details documented in ED Course. Risk Prescription drug management. ED Course: ED Course as of 01/26/25604 [facility] Jan 25, 2025 0054 CBC auto differential: White Blood Cells 8.7 RBC count 5.07 Hemoglobin 16.0 Hematocrit 47.0 MCV 93 MCH 31.6 MCHC 34.1 RDW 13.3 Platelets 298 MPV 8.4 % neutrophils 72.9 % lymphocytes 15.3 % monocytes 9.7 Eosinophils % 1.7 Basophils % 0.4 Neutrophils Absolute (A) 6.3 Lymphocytes Absolute 1.3 Monocytes Absolute 0.8 Absolute Eosinophil 0.1 Absolute Basophil 0.0 Differential Type AUTOMATED DIFFERENTIAL [BL] ED Course User Index [BL] Berry Mejia DO Clinical Impressions as of 01/26/25 0605 Lower extremity edema . ED Disposition ED Disposition Discharge Date/Time [facility] Jan 25, 2025 1:35 AM Comment At the time of discharge, the plan has been discussed with the patient regarding the diagnosis and prognosis. All questions have been answered. Verbal discharge instructions were discussed with the patient. The patient has been advised to follow up w ith their Primary Care Provider and Specialist within 1 week. The patient was also instructed to return to the ED if their symptoms change, worsen, new symptoms arise or if they have any additional concerns. . Please note that portions of this note were completed with a voice recognition program. Efforts were made to edit the dictations but occasionally words are mis-transcribed. Berry Mejia DO 01/26/25 06 * Susan Turner RN - 01/24/2025 11:54 PM EDT Pt to er with c/o chronic L leg pain. Pt states he usually goes to [place] but states he recently moved to [place]. Pt states Goodman usually helps with the pain but has not had any for a while. Pt isalert and oriented during triage, ambulated to room without difficulty. documented in this encounter Plan of Treatment Upcoming Encounters Date Type Department Care Team (Late st Contact Info) Description 05/07/2025 11:30 AM EST Appointment [facility] - Pulmonary Function [address] [place] [phone] Lisa Cervantes DO [address] [address] 05/21/2025 9:45 AM EST Office Visit [facility] Pulmonary/Sleep Medicine [address] [place] [phone] Lisa Cervantes DO [address] [id number] documented as of this encounter Procedures Procedure Name Priority Date/Time Associated Diagnosis Comments EXTRA TUBES BLUE TOP Routine 01/25/2025 12:33 AM EDT EXTRA TUBES Routine 01/25/2025 12:33 AM EDT CBC WITH AUTO DIFFERENTIAL STAT 01/25/2025 12:33 AM EDT B-TYPE NATRIURETIC PEPTIDE STAT 01/25/2025 12:33 AM EDT BASIC METABOLIC PANEL STAT 01/25/2025 12:33 AM EDT documented in this encounter Results * Light Blue Top (01/25/2025 12:33 AM EDT) Extra Tube Auto Resulted 01/25/2025 2:02 AM EDT [facility] Blood Venous blood / Unknown 01/25/2025 12:33 AM EDT 01/25/2025 12:39 AM EDT us Berry E Jackie DO LAB BLOOD ORDERABLES Final R esult Performing Organization Address City/[facility]/ZIP Co de Phone Number [address] [place] [address], [place] * B-type natriuretic peptide (01/25/2025 12:33 AM EDT) Pathologist [facility] BNP 50 <=100 pg/mL 01/25/2025 1:08 AM EDT [facility] Blood Venous blood / Unknown Venipuncture / Unknown 01/25/2025 12:33 AM EDT 01/25/2025 12:39 AM EDT us Berry E Jackie DO LAB BLOOD ORDERABLES Final R esult [address] [place] [address], [place] * (ABNORMAL) Basic Metabolic Panel (01/25/2025 12:33 AM EDT) SODIUM 137 134 - 146 mmol/L 01/25/2025 12:58 AM EDT [facility] POTASSIUM 3.9 3.5 - 5.0 mmol/L 01/25/2025 12:58 AM EDT [facility] CHLORIDE 99 98 - 109 mmol/L 01/25/2025 12:58 AM EDT [facility] CARBON DIOXIDE 29 22 - 32 mmol/L 01/25/2025 12:58 AM EDT [facility] ANION GAP 9 5 - 15 mmol/L 01/25/2025 12:58 AM EDT [facility] BLOOD UREA NITROGEN 26 5 - 27 mg/dL 01/25/2025 12:58 AM EDT [facility] CREATININE 1.31(H) 0.70 - 1.20 mg/dL 01/25/2025 12:58 AM EDT [facility] Comment:METHOD TRACEABLE TO IDMS STANDARD GLUCOSE 156(H) 65 - 99 mg/dL 01/25/2025 12:58 AM EDT [facility] CALCIUM 9.3 8.5 - 10.5 mg/dL 01/25/2025 12:58 AM EDT [facility] EGFR Non-Race Dependent 62 >=60 ml/min/1.7 3sq.m 01/25/2025 12:58 AM EDT [facility] Comment: eGFR not reported due to non-numeric value for Creatinine. Reported eGFR is based on the CKD-EPI 2020 equation that does not use a race coefficient. Blood Venous blood / Unknown Venipuncture / Unknown 01/25/2025 12:33 AM EDT 01/25/2025 12:39 AM EDT us Berry Mejia DO LAB BLOOD ORDERABLES Final R esult [facility] [address] [place] [address], * CBC auto differential (01/25/2025 12:33 AM EDT) WBC 8.7 4 - 11 x10E9/L 01/25/2025 12:48 AM EDT [facility] RBC Count 5.07 4.1 - 5.7 X10E12/L 01/25/2025 12:48 AM EDT [facility] Hemoglobin 16.0 13 - 17 g/dL 01/25/2025 12:48 AM EDT [facility] Hematocrit 47.0 39 - 50 % 01/25/2025 12:48 AM EDT [facility] MCV 93 80 - 100 fL 01/25/2025 12:48 AM EDT [facility] MCH 31.6 27 - 34 pg 01/25/2025 12:48 AM EDT [facility] MCHC 34.1 32 - 36 g/dL 01/25/2025 12:48 AM EDT [facility] RDW 13.3 11.5 - 15 % 01/25/2025 12:48 AM EDT [facility] Platelet Count 298 150 - 450 X10E9/L 01/25/2025 12:48 AM EDT [facility] MPV 8.4 7 - 12 fL 01/25/2025 12:48 AM EDT [facility] Neutrophils % 72.9 % 01/25/2025 12:48 AM EDT [facility] Lymphocytes % 15.3 % 01/25/2025 12:48 AM EDT [facility] Monocytes % 9.7 % 01/25/2025 12:48 AM EDT [facility] Eosinophils % 1.7 % 01/25/2025 12:48 AM EDT [facility] Basophils % 0.4 % 01/25/2025 12:48 AM EDT [facility] Neutrophils Absolute (A) 6.3 1.5 - 6.6 10*3/uL 01/25/2025 12:48 AM EDT [facility] Lymphocytes Absolute 1.3 1.0 - 3.5 10*3/uL 01/25/2025 12:48 AM EDT [facility] Monocytes Absolute 0.8 0.0 - 0.9 10*3/uL 01/25/2025 12:48 AM EDT [facility] Eosinophils Absolute 0.1 0.0 - 0.4 10*3/uL 01/25/2025 12:48 AM EDT [facility] Basophils Absolute 0.0 0.0 - 0.2 10*3/uL 01/25/2025 12:48 AM EDT [facility] Differential Type AUTOMATED DIFFERENTIAL 01/25/2025 12:48 AM EDT [facility] Blood Venous blood / Unknown Venipuncture / Unknown 01/25/2025 12:33 AM EDT 01/25/2025 12:39 AM EDT us Berry Mejia DO LAB BLOOD ORDERABLES Final R esult [facility] [address] [place] [address], documented in this encounter Visit Diagnoses Diagnosis Lower extremity edema- Primary Edema documented in this encounter Administered Medications Inactive Administered Medications - up to 3 most recent administrations Medication Order MAR Action Action Date Dose Rate Site furosemide (LASIX) tablet 20 mg 20 mg, oral, Once, On 01/25/25 at 0135, For 1 dose, Look-alike/sound-alike medication - verify indication for use. Given 01/25/2025 1:52 AM EDT 20 mg documented in this encounter Active and Recently Administered Medications Times are shown in EDT. Scheduled Medication Order 01/23/2025 01/24/2025 01/25/2025 furosemide (LASIX) tablet 20 mg (COMPLETED) 20 mg, oral, Once, On 01/25/25 at 0135, For 1 dose, Look-alike/sound-alike medication - verify indication for use. 0152 (Given - Provid er: Susan Turner RN) documented in this encounter Care Teams Resource Coordinator Relationship Specialty Start Date End Date Eusebia Terrell, PATSY-SUPERVISOR NUTRITIONAL YEAST PCP - General Nurse Practitioner 08/20/23 documented as of this encounter
[2025-01-29 20:27] VITALS: BP 124/81; PULSE 97; TEMP 36.6; O2SAT 96; BMI 54.7
--- OUTSIDE RECORDS SUMMARY | 2025-01-29 20:30 | XMS_ITS | Encounter Summary ---
Author Organization [facility] Address [address] [place] [address] Care Team Providers Care Insole Lip Turner Name Role Phone Eusebia Terrell NP Unavailable [phone] Mirza Pérez MD Primary Care Provider [phone] Unallocated, Noms Provider Primary Care Provi lindsey Mirza Pérez MD Primary Care Provider [phone] Reason for Visit * Reason Comments Med Refill Encounter Details Date Type Department Care Team (Late Contact Info) Description 12/05/2023 Refill [facility] [address] [place] [address] Eusebia Terrell, EMERGENCY MANAGER [address] [place] [address] Primary hypertension ; Paroxysmal atrial fibrillation (HCC) Social History Tobacco Use Types Packs/Day Years Used Date Smoking Tobacco: Former Cigarettes Q uit: 07/31/2012 Alcohol Use Standard Drinks/Week Comments Not Currently 0 (1 standard drink = 0.6 oz pur e alcohol) caffeine 1-2 cups per day PHQ-2 Answer Date Recorded Patient Health Questionnaire-2 Score 0 09/27/2023 Sex and Gender Information Value Date Recorded Sex Assigned at Not on file Legal Sex Male 7:21 PM EDT Gender Identity Not on file Sexual Orientation Not on file documented as of this encounter Plan of Treatment Upcoming Encounters Date Type Department Care Team (Late Contact Info) Description 02/02/2025 2:40 PM EDT Office Visit [facility] [address] [place] [address] Eusebia Terrell NP [address] [place] [address] documented as of this encounter Visit Diagnoses Diagnosis Primary hypertension Unspecified essential hypertension Paroxysmal atrial fibrillation (HCC) Atrial fibrillation documented in this encounter Care Teams Insole Lip Turner Relationship Specialty Start Date End Date Mirza Pérez MD [address] [place] [address] PCP - General Family Medicine 08/14/23 04/08/24 Unallocated, Coco Gomes MD [address] [facility] [place] [address] PCP - General Family Medicine 04/09/24 04/16/24 Mirza Pérez MD [address] [place] [address] PCP - General Family Medicine 04/17/24 Eusebia Terrell NP [address] [place] [address] Nurse Practitioner Family Medicine 03/18/23 documented as of this encounter
--- OUTSIDE RECORDS SUMMARY | 2025-01-29 20:30 | XMS_ITS | Encounter Summary ---
Author Organization [facility] Address [address] [facility] [place] [address] Care Team Providers Care Tax Consultant Name Role Phone Eusebia Terrell NP Unavailable [phone] Mirza Pérez MD Primary Care Provider [phone] Unallocated, Noms Provider Primary Care Provi lindsey Mirza Pérez MD Primary Care Provider [phone] Encounter Details Date Type Department Care Team (Late Contact Info) Description 10/31/2023 Orders Only [facility] [address] [facility] [place] [address] Eusebia Terrell, GENESIS [address] [place] [phone] Social History Tobacco Use Types Packs/Day Years [...] 02/02/2025 2:40 PM EDT Office Visit [facility] [address] [place] [phone] Eusebia Terrell NP [address] [place] [address] documented as of this encounter Procedures Procedure Name Priority Date/Time Associated Diagnosis Comments MISCELLANEOUS LAB TEST Routine 10/30/2023 2:04 PM EDT documented in this encounter Results * - Miscellaneous Test (10/30/2023 2:04 PM EDT) us Eusebia Terrell RN LVN LAB BLOOD ORDERABLES Final Resu lt documented in this encounter Visit Diagnoses Not on filedocumented in this encounter Care Teams Tax Consultant Relationship Specialty Start Date End Date Mirza Pérez MD [address] [place] [address] PCP - General Family Medicine 08/14/23 04/08/24 Unallocated, Coco Gomes MD [address] [place] [address] PCP - General Family Medicine 04/09/24 04/16/24 Mirza Pérez MD [address] [place] [address] PCP - General Family Medicine 04/17/24 Eusebia Terrell NP [address] [place] [address] Nurse Practitioner Family Medicine 03/18/23 documented as of this encounter
--- OUTSIDE RECORDS SUMMARY | 2025-01-29 20:30 | XMS_ITS | Clinical Summary ---
Author Organization [employer] tem Address [id number] [address] [place] [address] Care Team Providers Care Investment Executive Name Role Phone Eusebia Terrell APRN-CHEMICAL PRODUCTION TECHNICIAN Primary Care Provider Allergies Active Allergy Reactions Criticality Noted Date Comments Lisinopril Cough Medium 04/12/2023 Medications atorvastatin (LIPITOR) 40 mg tablet Take 1 tablet (40 mg total) by mouth in the morning. Active fluticasone-umec lidin-vilanter (TRELEGY ELLIPTA) 100-62.5-25 mcg blister with device Inhale 1 puff in the morning. Active apixaban (ELIQUIS) 5 mg tablet Take 1 tablet (5 mg total) by mouth in the morning and 1 tablet (5 mg total) before bedtime. Active losartan (COZAAR) 50 mg tablet Take 1 tablet (50 mg total) by mouth in the morning. Active levalbuterol (XOPENEX HFA) 45 mcg/actuation inhaler Inhale 1-2 puffs every 4 (four) hours as needed. Active levalbuterol (XOPENEX) 1.25 mg/3 mL nebulizer solutionIndicati ons:Chronic obstructive pulmonary disease, unspecified COPD type ([facility]-HCC) INHALE 3 ML BY NEBULIZATION 4 (FOUR) TIMES A DAY NEEDED FOR WHEEZING. 360 mL 5 3 Active dilTIAZem CD (CARDIZEM CD) 240 mg 24 hr capsule Take 1 capsule (240 mg total) by mouth in the morning. Active nitroglycerin (NITROSTAT) 0.[address] 1 tablet (0.4 mg total) under the tongue every 5 (five) minutes as needed for chest pain. 3 Active oxygen Inhale continuously. Active aspirin 81 mg chewable tablet Chew 2 tablets (162 mg total) and swallow in the morning. 2 in the morning. Active metoprolol tartrate (LOPRESSOR) 50 mg tablet Take 1 tablet (50 mg total) by mouth in the morning and 1 tablet (50 mg total) before bedtime. 4 Active FARXIGA 10 mg tabletIndication s:Chronic diastolic heart failure (CMS-HCC),Rojas ry artery disease involving [place] coronary artery of [place] heart without angina pectoris,Persist ent atrial fibrillation (CMS-HCC) TAKE 1 TABLET (10 MG TOTAL) BY MOUTH IN THE MORNING 30 tablet 11 4 Active torsemide (DEMADEX) 20 mg tabletIndication s:Chronic diastolic heart failure (CMS-HCC),Rojas ry artery disease involving [place] coronary artery of [place] heart without angina pectoris,Persist ent atrial fibrillation (CMS-HCC) Take 1 tablet (20 mg total) by mouth daily. May take an additional 20 mg as needed for swelling, weight gain SOB 135 tablet 3 4 Active spironolactone (ALDACTONE) 25 mg tablet TAKE 1 TABLET (25 MG TOTAL) BY MOUTH IN THE MORNING 90 tablet 2 5 Active Active Problems Problem Noted Date Diagnosed Date Chronic diastolic heart failure 01/21/2024 Chronic obstructive pulmonary disease 05/03/2023 Pulmonary nodule 09/21/2022 History of tobacco use 09/21/2022 CATERINA treated with BiPAP 09/21/2022 Morbid obesity 09/21/2022 Restrictive pattern present on pulmonary functio n testing 09/21/2022 Fatty liver 09/21/2022 Primary hypertension 09/21/2022 CAD (coronary artery disease) 09/21/2022 History of coronary angioplasty with insertion o f stent 09/21/2022 Resolved Problems Problem Noted Date Diagnosed Date Resolved Date Pulmonary infiltrate present on computed tomography 09/21/2022 05/03/2023 Encounters Date Type Department Care Team Description 01/24/2025 11:51 PM EDT - 01/25/2025 1:57 AM EDT Emergency [place] [address] [place] [phone] Berry Mejia DO Lower extremity edema (Primary Dx) Discharge Disposition: Home 01/24/2025 Travel 01/02/2025 Orders Only [facility] Pulmonary/Sleep Medicine [address] [facility] [address] [place] [address] Lisa Cervantes, DO Chronic obstructive pulmonary disease, unspecified COPD type (CMS-HCC) (Primary Dx) 01/02/2025 Travel 01/02/2025 Telephone [facility] Pulmonary/Sleep Medicine [address] [facility] [address] [address] [place] [address] Simin Das RMA from Last 3 Months Family History Medical History Relation Name Comments Diabetes Mother Hypertension Mother Relation Name Status Comments Mother Social History Tobacco Use Types Packs/Day Years Used Date Smoking Tobacco: Former Cigarettes Q uit: 2013 Smokeless Tobacco: Never Tobacco Cessation:Counseling Given: Not Answered Alcohol Use Standard Drinks/Week Comments Never 0 [...] on file Sexual Orientation Not on file Last Filed Vital Signs Vital Sign Reading [...] Mass Index 53.16 01/24/2025 11:56 PM EDT Plan of Treatment Upcoming Encounters Date Type Department Care Team (Late st Contact Info) Description 05/07/2025 11:30 AM EST Appointment [facility] - Pulmonary Function [address] [place] [address] Lisa Cervantes, DO [address] [address] 05/21/2025 9:45 AM EST Office Visit [facility] Pulmonary/Sleep Medicine [address] [facility] [place] [place] [address] Lisa Cervantes, DO [address] [address] Health Maintenance Due Date Last Done Comments Depression Screening 1975 Adult BMI Follow Up Plan 1981 DTaP,Tdap and Td Vaccines (1 - Tdap) 1982 Zoster (Shingles) Vaccine (1 of 2) 2013 Tobacco Screening 01/20/2025 01/21/2024 Influenza Vaccine 02/16/2025 Adult BMI Screening 01/24/2026 01/24/2025 Medical Devices Not on file Procedures Procedure Name Priority Date/Time Associated Diagnosis Comments EXTRA TUBES BLUE TOP Routine 01/25/2025 12:33 AM EDT EXTRA TUBES Routine 01/25/2025 12:33 AM EDT B-TYPE NATRIURETIC PEPTIDE STAT 01/25/2025 12:33 AM EDT BASIC METABOLIC PANEL STAT 01/25/2025 12:33 AM EDT CBC WITH AUTO DIFFERENTIAL STAT 01/25/2025 12:33 AM EDT BASIC METABOLIC PANEL Routine 01/02/2025 9:52 AM EDT Chronic diastolic (congestive) heart failure (CMS-HCC) CBC WITH AUTO DIFFERENTIAL Routine 01/02/2025 9:52 AM EDT Chronic diastolic (congestive) heart failure (CMS-HCC) from Last 3 Months Results * Light Blue Top (01/25/2025 12:33 AM EDT) Extra Tube Auto Resulted 01/25/2025 2:02 AM EDT [facility] Blood Venous blood / Unknown 01/25/2025 12:33 AM EDT 01/25/2025 12:39 AM EDT us Berry Mejia DO LAB BLOOD ORDERABLES Final R esult [facility] [address] [place] [address], [place] * CBC auto differential (01/25/2025 12:33 AM EDT) Only the most recent of2 resultswithin the time period is included. WBC 8.7 4 - 11 x10E9/L 01/25/2025 12:48 AM EDT [facility] RBC Count 5.07 4.1 - 5.7 X10E12/L 01/25/2025 12:48 AM EDT [facility] Hemoglobin 16.0 13 - 17 g/dL 01/25/2025 12:48 AM EDT [facility] Hematocrit 47.0 39 - 50 % 01/25/2025 12:48 AM EDT [facility] MCV 93 80 - 100 fL 01/25/2025 12:48 AM EDT [facility] MCH 31.6 27 - 34 pg 01/25/2025 12:48 AM EDT [facility] MCHC 34.1 32 - 36 g/dL 01/25/2025 12:48 AM EDT [facility] RDW 13.3 11.5 - 15 % 01/25/2025 12:48 AM EDT [facility] Platelet Count 298 150 - 450 X10E9/L 01/25/2025 12:48 AM EDT [facility] MPV 8.4 7 - 12 fL 01/25/2025 12:48 AM EDT [facility] Neutrophils % 72.9 % 01/25/2025 12:48 AM EDT [facility] Lymphocytes % 15.3 % 01/25/2025 12:48 AM EDT [facility] Monocytes % 9.7 % 01/25/2025 12:48 AM EDT [facility] Eosinophils % 1.7 % 01/25/2025 12:48 AM EDT [facility] Basophils % 0.4 % 01/25/2025 12:48 AM EDT [facility] Neutrophils Absolute (A) 6.3 1.5 - 6.6 10*3/uL 01/25/2025 12:48 AM EDT [facility] Lymphocytes Absolute 1.3 1.0 - 3.5 10*3/uL 01/25/2025 12:48 AM EDT [facility] Monocytes Absolute 0.8 0.0 - 0.9 10*3/uL 01/25/2025 12:48 AM EDT [facility] Eosinophils Absolute 0.1 0.0 - 0.4 10*3/uL 01/25/2025 12:48 AM EDT [facility] Basophils Absolute 0.0 0.0 - 0.2 10*3/uL 01/25/2025 12:48 AM EDT [facility] Differential Type AUTOMATED DIFFERENTIAL 01/25/2025 12:48 AM EDT [facility] Blood Venous blood / Unknown Venipuncture / Unknown 01/25/2025 12:33 AM EDT 01/25/2025 12:39 AM EDT us Berry Mejia DO LAB BLOOD ORDERABLES Final R esult [address] [place] [address], [place] * B-type natriuretic peptide (01/25/2025 12:33 AM EDT) Pathologist [facility] BNP 50 <=100 pg/mL 01/25/2025 1:08 AM EDT [facility] Blood Venous blood / Unknown Venipuncture / Unknown 01/25/2025 12:33 AM EDT 01/25/2025 12:39 AM EDT us Berry Mejia DO LAB BLOOD ORDERABLES Final R esult [address] [place] [address], [place] * (ABNORMAL) Basic Metabolic Panel (01/25/2025 12:33 AM EDT) Only the most recent of2 resultswithin the time period is included. Pathologist [facility] SODIUM 137 134 - 146 mmol/L 01/25/2025 12:58 AM EDT [facility] POTASSIUM 3.9 3.5 - 5.0 mmol/L 01/25/2025 12:58 AM EDT [facility] CHLORIDE 99 98 - 109 mmol/L 01/25/2025 12:58 AM EDT [facility] CARBON DIOXIDE 29 22 - 32 mmol/L 01/25/2025 12:58 AM EDT [facility] ANION GAP 9 5 - 15 mmol/L 01/25/2025 12:58 AM EDT [facility] BLOOD UREA NITROGEN 26 5 - 27 mg/dL 01/25/2025 12:58 AM EDT [facility] CREATININE 1.31(H) 0.70 - 1.20 mg/dL 01/25/2025 12:58 AM EDT [facility] Comment:METHOD TRACEABLE TO IDMS STANDARD GLUCOSE 156(H) 65 - 99 mg/dL 01/25/2025 12:58 AM EDT [facility] CALCIUM 9.3 8.5 - 10.5 mg/dL 01/25/2025 12:58 AM EDT [facility] EGFR Non-Race Dependent 62 >=60 ml/min/1.7 3sq.m 01/25/2025 12:58 AM EDT [facility] Comment: eGFR not reported due to non-numeric value for Creatinine. Reported eGFR is based on the CKD-EPI 2020 equation that does not use a race coefficient. Blood Venous blood / Unknown Venipuncture / Unknown 01/25/2025 12:33 AM EDT 01/25/2025 12:39 AM EDT us Berry Mejia DO LAB BLOOD ORDERABLES Final R esult [facility] [address] [place] [address], from Last 3 Months Insurance [employer] [facility] [employer] COMPENSATION - GENERIC PLAN Care Teams Investment Executive Relationship Specialty Start Date End Date Eusebia Terrell, HOGSHEAD MAT ASSEMBLER-CHEMICAL PRODUCTION TECHNICIAN PCP - General Nurse Practitioner 08/20/23
--- OUTSIDE RECORDS SUMMARY | 2025-01-29 20:31 | XMS_ITS | Clinical Summary ---
Author Organization [facility] Address [address] [place] [address] Phone Care Team Providers Care Smoked Meat Preparer Name Role Phone Eusebia Terrell APRN-JOB DEVELOPER Primary Care Provider Justyn Covington MD Unavailable Allergies Active Allergy Reactions Criticality Noted Date Comments Lisinopril Cough 04/12/2023 Medications atorvastatin (Lipitor) 40 mg tablet Take 1 tablet (40 mg) by mouth once daily at bedtime. 1 Active aspirin 81 mg EC tablet Take 1 tablet (81 mg) by mouth once daily. Active apixaban (Eliquis) 5 mg tablet Take 1 tablet (5 mg) by mouth 2 times a day. Active levalbuterol (Xopenex) 45 mcg/actuation inhaler Inhale 1-2 puffs. Active dapagliflozin propanediol (Farxiga) 10 mg Take 1 tablet (10 mg) by mouth once daily. Active dilTIAZem CD (Cardizem CD) 240 mg 24 hr capsuleIndication s:Essential (primary) hypertension TAKE 1 CAPSULE BY MOUTH ONCE DAILY. 90 capsule 3 4 Active metoprolol tartrate (Lopressor) 50 mg tablet Take 1 tablet by mouth 2 times a day. 4 Active Trelegy Ellipta 100-62.5-25 mcg blister with device Inhale 1 puff once every 24 hours. Active ipratropium-albut Grover (Duo-Neb) 0.5-2.5 mg/3 mL nebulizer solution Inhale 1 mL 4 times a day as needed. 4 Active nitroglycerin (Nitrostat) 0.4 mg SL tabletIndications :2-vessel coronary artery disease Place 1 tablet (0.4 mg) under the tongue every 5 minutes if needed for chest pain. 25 tablet 11 5 Active losartan (Cozaar) 50 mg tabletIndications :Essential (primary) hypertension Take 1 tablet (50 mg) by mouth once daily. 90 tablet 3 5 11/15/19 26 Active torsemide (Demadex) 20 mg tabletIndications :2-vessel coronary artery disease,Essential hypertension Take 1 tablet (20 mg) by mouth once daily. 90 tablet 3 5 12/04/19 26 Active Active Problems Problem Noted Date Diagnosed Date Atypical chest pain 10/15/2024 Old PA (myocardial infarction) 04/13/2023 Former smoker 04/13/2023 Status post ablation of incompetent vein using l aser 04/13/2023 Sleep apnea 04/12/2023 Poor compliance 04/12/2023 Paroxysmal atrial fibrillation (Multi) Essential hypertension 04/12/2023 Mixed hyperlipidemia 04/12/2023 2-vessel coronary artery disease 04/12/2023 Morbid obesity with BMI of 50.0-59.9, adult (Mul ti) 04/12/2023 Resolved Problems Problem Noted Date Diagnosed Date Resolved Date History of PTCA 04/12/2023 04/13/2023 Coronary artery disease with out angina pectoris 04/12/2023 04/13/2023 Encounters Date Type Department Care Team Description 12/03/2024 Refill [facility] [address] [address] Chrissy Johnston, RN 2-vessel coronary artery disease; Essential hypertension 11/14/2024 Refill [facility] [address] [place] [address] Cornelia Dubois LPN Essential (primary) hypertension from Last 3 Months Family History Medical History Relation Name Comments Cancer Brother Lung cancer Brother Diabetes Mother Relation Name Status Comments Brother Mother Social History Tobacco Use Types Packs/Day Years Used Date Smoking Tobacco: Former Cigarettes Q uit: 2013 Smokeless Tobacco: Never Tobacco Cessation:Counseling Given: Not Answered Alcohol Use Standard Drinks/Week Comments Never 0 (1 standard drink = 0.6 oz pur e alcohol) Sex and Gender Information Value Date Recorded Sex Assigned at Not on file Legal Sex Male 1:48 PM EST Gender Identity Not on file Sexual Orientation Not on file Last Filed Vital Signs Vital Sign Reading Time Taken Comments Blood Pressure 112/74 10/15/2024 9:18 AM EDT Pulse 64 10/15/2024 9:18 AM EDT Temperature - - Respiratory Rate - - Oxygen Saturation - - Inhaled Oxygen Concentration - - Weight 164 kg (361 lb) 10/15/2024 9:18 AM EDT Height 172.7 cm (5' 8 ) 10/15/2024 9:18 AM EDT Body Mass Index 54.89 10/15/2024 9:18 AM EDT Plan of Treatment Upcoming Encounters Date Type Department Care Team (Late st Contact Info) Description 02/20/2025 10:00 AM EDT Office Visit [facility] [address] [address] Sonia Christian MD [address] [facility] [address] [place] [address] Health Maintenance Due Date Last Done Comments CT Colonography 1963 Colonoscopy 1963 Colorectal Cancer Screening 1963 Creatinine Level 1963 Echocardiogram 1963 FIT-DNA (Cologuard) 1963 FIT 1963 HIV Screening 1963 Potassium Level 1963 Sigmoidoscopy 1963 Yearly Adult Physical 1963 MMR Vaccines (1 of 1 - Stand mundo series) 1964 Diabetes Screening 1981 Hepatitis C Screening 1981 Hepatitis A Vaccines (1 of 2 - Risk 2-dose series) 1982 Pneumococcal Vaccine (1 of 2 - PCV) 1982 DTaP/Tdap/Td Vaccines (1 - Tdap) 1985 PSA Prostate Cancer Screening 2013 Zoster Vaccines (1 of 2) 2013 Hepatitis B Vaccines (1 of 3 - Risk 3-dose series) 2023 RSV High Risk: (Elderly (60+ ) or Population) (1 - Risk 60-74 years 1-dose series) 2023 COVID-19 Vaccine (1 - 2023-2 5 season) 2024 Influenza Vaccine (#1) 2025 Lipid Panel 09/17/2029 09/17/2024 HIB Vaccines Aged Out No longer eligi ble based on patient's age to complete this topic HPV Vaccines Aged Out No longer eligi ble based on patient's age to complete this topic IPV Vaccines Aged Out No longer eligi ble based on patient's age to complete this topic Meningococcal Vaccine Aged Out No yolanda sadia eligible based on patient's age to complete this topic Rotavirus Vaccines Aged Out No longer eligible based on patient's age to complete this topic Insurance [employer] Member Subscriber Plan / Payer (Ef fective 2023-Present) Name:Dmitriy Duong Relation to Subscriber:Self Name:Dmitriy Duong Payer ID:[id number] (NAIC) Group ID:Not on file Type:Not on file Address: [address] [facility] MEDICA[facility] Member Subscriber Plan / Payer (Ef fective 2023-Present) Name:Dmitriy Duong Relation to Subscriber:Self Name:Dmitriy Duong Payer ID:[id number] (NAIC) Group ID:Not on file Type:Not on file Address: [address] Care Teams Smoked Meat Preparer Relationship Specialty Start Date End Date Eusebia Terrell, TRUCK ENGINE ASSEMBLER-JOB DEVELOPER [address] [place] [address] PCP - General 11/04/19 Justyn Covington MD [address] [facility] Medical Office [facility], [address] [address] Charge Master Analyst Cardiology 07/05/23
--- OUTSIDE RECORDS SUMMARY | 2025-01-29 20:31 | XMS_ITS | Encounter Summary ---
Author Organization [facility] tem Address [id number] [address] [place] [address] Care Team Providers Care Bee Worker Name Role Phone Eusebia Terrell APRNNATALIA Primary Care Provider Encounter Details Date Type Department Care Team (Late st Contact Info) Description 04/30/2023 Telephone [facility] Pulmonary/Sleep Medicine [address] [address] Nieves Almeida RN Social History Tobacco Use Types Packs/Day Years [...] got money to buy more. Never True 09/21/2022 Within the past 12 months th e food we bought just didn't last and we didn't have money to get more. Never True 09/21/2022 Sex and Gender Information Value Date Recorded Sex Assigned at Not on file Legal Sex Male 11:30 AM EDT Gender Identity Not on file Sexual Orientation Not on file documented as of this encounter Miscellaneous Notes * Telephone Encounter - Nieves Almeida RN - 04/30/2023 4:22 PM EST Received call from Matilde at Eusebia Mae CNP office. She stated patient completed 6MWT on 04-26-23. Patient was found to have O2 at 73% after one minute. Patient was placed on 2L. Test began againand after one minute, patient desat to 85%. Oxygen then increased to 3L and finished test on 3L with several pauses and report of SOB. Evaporative Cooler Installer asked Matilde if oxygen was ordered. Was told no, Eusebia Villafana has not seen results yet d/tnot in office today. Eusebia returning tomorrow and will be given results then and will discuss ordering oxygen. Evaporative Cooler Installer informed Matilde, can see patient in our [place] office on 05-03-23 at 8:[address] Cervantes. Matilde agreeable and will contact patient. documented in this encounter Plan of Treatment Upcoming Encounters Date Type Department Care Team (Late st Contact Info) Description 05/07/2025 11:30 AM EST Appointment [facility] - Pulmonary Function [address] [place] [phone] Lisa Cervantes, DO [address] [address] 05/21/2025 9:45 AM EST Office Visit [facility] Pulmonary/Sleep Medicine [facility] [facility] [place] [address] Lisa Cervantes, DO [address] [address] documented as of this encounter Visit Diagnoses Not on filedocumented in this encounter Care Teams Bee Worker Relationship Specialty Start Date End Date Eusebia Terrell, STONE POLISHER-ORACLE SOA CONSULTANT PCP - General Nurse Practitioner 08/20/23 documented as of this encounter
--- OUTSIDE RECORDS SUMMARY | 2025-01-29 20:31 | XMS_ITS | Encounter Summary ---
Author Organization [facility] Address [address] [place] [address] Care Team Providers Care Behavioral Medical Director Name Role Phone Eusebia Terrell NP Unavailable [phone] Mirza Pérez MD Primary Care Provider [phone] Mizra Pérez MD Primary Care Provider [phone] Unallocated, Noms Provider Primary Care Provi lindsey Mirza Pérez MD Primary Care Provider [phone] Encounter Details Date Type Department Care Team (Late st Contact Info) Description 08/07/2023 Clinisync Result Encounter [facility] External Department Unsolicited Provider, Generic External Data Social History Tobacco Use Types Packs/Day Years Used Date Smoking Tobacco: Former Cigarettes Q uit: 07/31/2012 Alcohol Use Standard Drinks/Week Comments Not Currently 0 (1 standard drink = 0.6 oz pur e alcohol) caffeine 1-2 cups per day PHQ-2 Answer Date Recorded Patient Health Questionnaire-2 Score 1 07/19/2023 Sex and Gender Information Value Date Recorded Sex Assigned at Not on file Legal Sex Male 7:21 PM EDT Gender Identity Not on file Sexual Orientation Not on file documented as of this encounter Plan of Treatment Upcoming Encounters Date Type Department Care Team (Late Contact Info) Description 02/02/2025 2:40 PM EDT Office Visit [facility] [address] [place] [address] Eusebia Terrell NP [address] [place] [address] (work) documented as of this encounter Procedures Procedure Name Priority Date/Time Associated Diagnosis Comments XR KNEE 4+ VIEWS RIGHT 08/07/2023 10:04 AM EST documented in this encounter Results * XR knee 4+ views right (08/07/2023 10:04 AM EST) Anatomical Region Laterality Modality Lower Extremities, Knee Right Radiogra phic Imaging 08/07/2023 10:0 4 AM EST Narrative 08/07/2023 10:08 [place] [address] XRay Report Signed Patient: ELYSE DUONG MR#: [id number] : 1965 Acct:[id number] Age/Sex: 58 / M ADM Date: 08/06/23 Loc: EC Attending Dr: Yuan Grimm M.D. Ordering Physician: Yuan Grimm M.D. Date of Service: 08/06/23 Procedure(s): XR knee RT 4V Accession Number(s): [id number] cc: Eusebia Terrell INDUSTRIAL ECONOMICS PROFESSOR; Yuan Grimm M.D. [address] [address] Patient Name: ELYSE DUONG MRN: [id number] date: 1965 Sex: M Assigned Patient Location: Current Patient Location: Accession/Order Number: [id number] Exam Date: 08/06/2023 11:15 Report Date: 08/07/2023 10:04 At the request of: YUAN GRIMM Procedure: XR knee RT 4V EXAM: XR knee RT 4V HISTORY: RIGHT KNEE PAIN COMPARISON: None. TECHNIQUE: 3 views FINDINGS: Mild degenerative changes of the knee joint. No acute fracture or dislocation. Unremarkable soft tissues. XR/XR knee RT 4V IMPRESSION: Degenerative changes as above. Electronically authenticated by: VIDHI FINLEY Date: 08/07/2023 10:04 Dictated By: Vidhi Finley M.D. Signed By: 08/07/23 1008 DD/ 100 TD/TT: Safety Lead: Procedure Note Radiology, Radiologist, - 08/07/2023 [facility] [place] [id number] XRay Report Signed Patient: ELYSE DUONG AMR#: [id number] : 1965Acct:[id number] Age/Sex: 58 / MADM Date: 08/06/23 Loc: EC Attending Dr: Yuan Grimm M.D. Ordering Physician: Yuan Grimm M.D. Date of Service: 08/06/23 Procedure(s): XR knee RT 4V Accession Number(s): [id number] cc: Eusebia Terrell INDUSTRIAL ECONOMICS PROFESSOR; Yuan Grimm M.D. The [address] [address] Patient Name: ELYSE DUONG MRN: [id number] date: 1965 Sex: M Assigned Patient Location: Current Patient Location: Accession/Order Number: [id number] Exam Date: 08/06/2023 11:15 Report Date: 08/07/2023 10:04 At the request of: YUAN GRIMM Procedure: XR knee RT 4V EXAM: XR knee RT 4V HISTORY: RIGHT KNEE PAIN COMPARISON: None. TECHNIQUE: 3 views FINDINGS: Mild degenerative changes of the knee joint. No acute fractureor dislocation. Unremarkable soft tissues. XR/XR knee RT 4V IMPRESSION: Degenerative changes as above. Electronically authenticated by: VIDHI FINLEY Date: 08/07/2023 10:04 Dictated By: Vidhi Finley M.D. Signed By:08/07/23 1008 DD/ 03 TD/TT: Safety Lead: Generic External Data Provider IMG XR PROCEDURES Final Result documented in this encounter Visit Diagnoses Not on filedocumented in this encounter Care Teams Behavioral Medical Director Relationship Specialty Start Date End Date Mirza Pérez MD [address] [place] [address] PCP - General Family Medicine 12/19/23 2/26/24 Mirza Pérez MD [address] [place] [address] PCP - General Family Medicine 08/14/23 04/08/24 Unallocated, Noms MD Eliseo [address] [place] [address] PCP - General Family Medicine 04/09/24 04/16/24 Mirza Pérez MD [address] [place] [address] PCP - General Family Medicine 04/17/24 Eusebia Terrell NP [address] [place] [address] Nurse Practitioner Family Medicine 03/18/23 documented as of this encounter
--- OUTSIDE RECORDS SUMMARY | 2025-01-29 20:31 | XMS_ITS | Encounter Summary ---
Author Organization [facility] [employer] [facility] tem Address [id number] [address] [place] [address] Care Team Providers Care Powder Hand Name Role Phone SocorroEusebia rodriguez David GARNER-EDUCATION PROFESSIONAL Primary Care Provider Encounter Details Date Type Department Care Team (Late st Contact Info) Description 09/21/2023 Telephone [facility] Physicians Cardiology [address] [place] [address] Yolanda Willis CNA Social History Tobacco Use Types Packs/Day Years [...] got money to buy more. Never True 07/26/2023 Within the past 12 months th e food we bought just didn't last and we didn't have money to get more. Never True 07/26/2023 Sex and Gender Information Value Date Recorded Sex Assigned at Not on file Legal Sex Male 11:30 AM EDT Gender Identity Not on file Sexual Orientation Not on file documented as of this encounter Plan of Treatment Upcoming Encounters Date Type Department Care Team (Late st Contact Info) Description 05/07/2025 11:30 AM EST Appointment [facility] - Pulmonary Function [address] [place] [address] Lisa Cervantes, DO [address] [address] 05/21/2025 9:45 AM EST Office Visit [facility] Pulmonary/Sleep Medicine [address] [facility] [place] [phone] Lisa Cervantes, DO [address] [address] documented as of this encounter Visit Diagnoses Not on filedocumented in this encounter Care Teams Powder Hand Relationship Specialty Start Date End Date Eusebia Terrell, CHANGE HOUSE ATTENDANT-EDUCATION PROFESSIONAL PCP - General Nurse Practitioner 08/20/23 documented as of this encounter
--- OUTSIDE RECORDS SUMMARY | 2025-01-29 20:31 | XMS_ITS | Encounter Summary ---
Author Organization [facility] Address [address] [place] [id number] Phone Care Team Providers Care Training And Documentation Specialist Name Role Phone Eusebia Terrell APRN-MACHINE BRUSHER Primary Care Provider Justyn Covington MD Unavailable [phone] Encounter Details Date Type Department Care Team (Late st Contact Info) Description 11/06/2021 Orders Only [facility] LEGACY [address] [place] [address] Conversion, Onbase Social History Tobacco Use Types Packs/Day Years Used Date Smoking Tobacco: Never Assessed Sex and Gender Information Value Date Recorded Sex Assigned at Not on file Legal Sex Male 1:48 PM EST Gender Identity Not on file Sexual Orientation Not on file documented as of this encounter Plan of Treatment Upcoming Encounters Date Type Department Care Team (Late st Contact Info) Description 02/20/2025 10:00 AM EDT Office Visit [place] [id number] [facility] [address] [place] [address] Sonia Christian MD [address] [facility] 2, [address] [place] [address] Scheduled Orders Name Type Priority Associated Diagnoses Orde r Schedule OUTSIDE LAB SCAN Lab Ordered: 11/06/2021 documented as of this encounter Visit Diagnoses Not on filedocumented in this encounter Care Teams Training And Documentation Specialist Relationship Specialty Start Date End Date Eusebia Terrell APRN-MACHINE BRUSHER [address] [place] [address] PCP - General 11/04/19 Justyn Covington MD [address] [facility] Office [facility], [address] [address] Fountain Supervisor Cardiology 07/05/23 documented as of this encounter
--- OUTSIDE RECORDS SUMMARY | 2025-01-29 20:31 | XMS_ITS | Encounter Summary ---
Author Organization [facility] Address [address] [place] [phone] Phone Care Team Providers Care Signals Officer Name Role Phone Eusebia Terrell APRN-RN DELIVERY Primary Care Provider Justyn Covington MD Unavailable [phone] Encounter Details Date Type Department Care Team (Late st Contact Info) Description 01/27/2019 Orders Only [facility] LEGACY [address] [place] [address] Conversion, Onbase Social History Tobacco Use Types [...] Description 02/20/2025 10:00 AM EDT Office Visit [place] [address]503 [facility] [address] [place] [address] Sonia Christian MD 7[address] [facility] 2, [address] [place] [address] Scheduled Orders Name Type Priority Associated Diagnoses Orde r Schedule OUTSIDE LAB SCAN Lab Ordered: 01/27/2019 documented as of this encounter Visit Diagnoses Not on filedocumented in this encounter Care Teams Signals Officer Relationship Specialty Start Date End Date Eusebia Terrell APRN-RN DELIVERY [address] [place] [address] PCP - General 11/04/19 Justyn Covington MD [address] [facility], [address] [phone] Instructional Paraprofessional Cardiology 07/05/23 documented as of this encounter
--- OUTSIDE RECORDS SUMMARY | 2025-01-29 20:31 | XMS_ITS | Encounter Summary ---
Author Organization [facility] Address [address] [place] [phone] Phone Care Team Providers Care Bobbin Handler Name Role Phone Eusebia Terrell Primary Care Provider Justyn Covington MD Unavailable [phone] Encounter Details Date Type Department Care Team (Late st Contact Info) Description 01/11/2022 Orders Only [facility] LEGACY [address] [place] [address] Conversion, Onbase Social History Tobacco Use Types Packs/Day Years Used Date Smoking Tobacco: Never Assessed Sex and Gender Information Value Date Recorded Sex Assigned at Not on file Legal Sex Male 1:48 PM EST Gender Identity Not on file Sexual Orientation Not on file documented as of this encounter Functional Status * Little interest or pleasure in doing things Answer Date of Assessment Author Not at all 01/12/2022 2:42 PM EDT Conversio n, [employer] Touch[employer] Vitals documented as of this encounter Plan of Treatment Upcoming Encounters Date Type Department Care Team (Late st Contact Info) Description 02/20/2025 10:00 AM EDT Office Visit [address] [place] [address] Sonia Christian MD 703 [facility] 2, [address] [place] [address] Scheduled Orders Name Type Priority Associated Diagnoses Orde r Schedule OUTSIDE LAB SCAN Lab Ordered: 01/11/2022 documented as of this encounter Visit Diagnoses Not on filedocumented in this encounter Care Teams Bobbin Handler Relationship Specialty Start Date End Date Eusebia Terrell, AUTOMATIC SPOOLER OPERATOR-LCSW [address] [place] [address] PCP - General 11/04/19 Justyn Covington MD [address] [facility] Medical [facility] [address], Pankaj [address] [place] [id number] Software Applications Designer Cardiology 07/05/23 documented as of this encounter
--- OUTSIDE RECORDS SUMMARY | 2025-01-29 20:31 | XMS_ITS | Encounter Summary ---
Author Organization [facility] tem Address [id number] [address] [place] [address] Care Team Providers Care Scientific Technical Writer Name Role Phone SocorrofernandomaeganEusebia elizalde David GARNER-POLICE MATRON Primary Care Provider Reason for Visit * Reason Comments Med Refill Encounter Details Date Type Department Care Team (Late st Contact Info) Description 12/28/2021 Refill [facility] General Surgery-Bariatric [address] [facility] [address] [place] [address] [place] [address] [place] [address], [address] [place] [address] Social History Tobacco Use Types Packs/Day Years Used Date Smoking Tobacco: Former Cigarettes Q uit: 2013 Smokeless Tobacco: Never Alcohol Use Standard Drinks/Week Comments Never 0 (1 standard drink = 0.6 oz pur e alcohol) Childcare Answer Date Recorded Childcare Unknown 11/27/2018 Employment Answer Date Recorded Employment Unknown 11/27/2018 Sex and Gender Information Value Date Recorded Sex Assigned at Not on file Legal Sex Male 11:30 AM EDT Gender Identity Not on file Sexual Orientation Not on file documented as of this encounter Plan of Treatment Upcoming Encounters Date Type Department Care Team (Late st Contact Info) Description 05/07/2025 11:30 AM EST Appointment [facility] - Pulmonary Function [address] [place] [address] Lisa Cervantes DO [address] [facility] [address] [place] [address] 05/21/2025 9:45 AM EST Office Visit [facility] Pulmonary/Sleep Medicine [address] [facility] [place] [address] Lisa Cervantes, DO [address] [address] documented as of this encounter Visit Diagnoses Not on filedocumented in this encounter Care Teams Scientific Technical Writer Relationship Specialty Start Date End Date Eusebia Terrell, WIRELESS RETAIL MANAGER-POLICE MATRON PCP - General Nurse Practitioner 08/20/23 documented as of this encounter
--- OUTSIDE RECORDS SUMMARY | 2025-01-29 20:31 | XMS_ITS | Encounter Summary ---
Author Organization [employer] [facility] tem Address [id number] [address] [place] [address] Care Team Providers Care Corporate Strategist Name Role Phone SocorrofernandomaeganEusebia elizalde David WATSONN-SENIOR ACCOUNTING CLERK Primary Care Provider Encounter Details Date Type Department Care Team (Late st Contact Info) Description 09/21/2022 Orders Only [facility] Pulmonary/Sleep Medicine [address] [facility] [place] [address] Ref Prov, [place] [address] Social History Tobacco Use Types Packs/Day Years [...] on file Sexual Orientation Not on file COVID-19 Exposure Response Date Recorded In the last month, have you been in contact with someone who was confirmed or suspected to have Coronavirus / COVID-19? No / Unsure 09/21/2022 10:52 AM EDT documented as of this encounter Plan of Treatment Upcoming Encounters Date Type Department Care Team (Late st Contact Info) Description 05/07/2025 11:30 AM EST Appointment [facility] - Pulmonary Function [address] [place] [address] Lisa Cervantes, DO [address] [address] 05/21/2025 9:45 AM EST Office Visit [facility] [address] [facility] [address] [place] [address] Lisa Cervantes, DO [address] [address] documented as of this encounter Procedures Procedure Name Priority Date/Time Associated Diagnosis Comments SPLIT NIGHT SLEEP STUDY Routine 09/21/2022 2:28 PM EDT documented in this encounter Visit Diagnoses Not on filedocumented in this encounter Care Teams Corporate Strategist Relationship Specialty Start Date End Date Eusebia Terrell, GROCERY BAGGER-SENIOR ACCOUNTING CLERK PCP - General Nurse Practitioner 08/20/23 documented as of this encounter
--- OUTSIDE RECORDS SUMMARY | 2025-01-29 20:31 | XMS_ITS | Encounter Summary ---
Author Organization [facility] Address [address] [place] [address] Care Team Providers Care Camp Dining Room Attendant Name Role Phone Eusebia Terrell NP Unavailable [phone] Mirza Pérez MD Primary Care Provider [phone] Unallocated, [facility]oms Provider Primary Care Provi lindsey Mirza Pérez MD Primary Care Provider [phone] Encounter Details Date Type Department Care Team (Late Contact Info) Description 01/21/2024 Abstract [facility] [address] [place] [address] Eusebia Terrell, PULP HOUSE SUPERVISOR [address] [place] [address] Social History Tobacco Use Types Packs/Day Years [...] Upcoming Encounters Date Type Department Care Team ([facility] Contact Info) Description 02/02/2025 2:40 PM EDT Office Visit [facility] [address] [place] [address] Eusebia Terrell NP [address] [place] [address] documented as of this encounter Visit Diagnoses Not on filedocumented in this encounter Care Teams Camp Dining Room Attendant Relationship Specialty Start Date End Date Mirza Pérez MD [address] [place] [address] PCP - General Family Medicine 08/14/23 04/08/24 Unallocated, Noms Provider, [address] [place] [address] PCP - General Family Medicine 04/09/24 04/16/24 Mirza Pérez MD [address] [place] [address] PCP - General Family Medicine 04/17/24 Eusebia Terrell NP [address] [place] [address] Nurse Practitioner Family Medicine 03/18/23 documented as of this encounter
--- OUTSIDE RECORDS SUMMARY | 2025-01-29 20:31 | XMS_ITS | Patient Health Record ---
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 Called pt and informed him of referral and to give them a call in 3 days to schedule. Pt said he was going to try to find an oral surgeon who is closer., Sarah Balbuena 08/25/2024 05:41:09 PM >1st attempt to contact pt, voicemail not set up, Ivanna Miller 09/10/2024 08:44:03 AM >[facility] Oral Surgery asking for referral and xrays. Pt is going there instead of [facility]., Sarah Balbuena 09/22/2024 06:09:27 PM >Referral emailed to [facility] Oral Surgery on 09/10/24, Sarah Balbuena 09/30/2024 01:54:09 PM >Tried calling pt to get appt information, unable to leave message, voicemail not set up, Sarah Balbuena 10/07/2024 11:02:43 AM >2nd attempt to get appt information, Unable to leave vm, mailbox not set up. Referral Priority Routine Medications Medication SIG (Take, Route, Frequency, Duration) Notes Start Date End Date Status Levalbuterol Tartrate 45 MCG/ACT Inhalation; Duration: 25 Days Active Metoprolol Tartrate 50 MG TAKE 1 TABLET (50 MG) BY MOUTH IN THE MORNING AND BEFORE BEDTIME Oral; Duration: 90 Days Active dilTIAZem HCl ER Coated Beads 240 MG Oral; Duration: 90 Days Acti ve Losartan Potassium 50 MG Oral; Duration: 90 Days Active dilTIAZem HCl ER Coated Beads 240 MG TAKE 1 CAPSULE BY MOUTH EVERY DAY Oral; Duration: 90 Days Active Eliquis 5 MG as directed Orally Active Eliquis 5 MG as directed Orally Active Trelegy Ellipta 100-62.5-25 MCG/ACT 1 puff Inhalation Once a day Active Torsemide 20 MG Oral; Duration: 90 Days Active dilTIAZem HCl ER Coated Beads 240 MG Oral; Duration: 90 Days Acti ve dilTIAZem HCl ER Coated Beads 240 MG Oral; Duration: 90 Days Acti ve dilTIAZem HCl ER Coated Beads 240 MG Oral; Duration: 90 Days Acti ve dilTIAZem HCl ER Coated Beads 240 MG Oral; Duration: 90 Days Acti ve dilTIAZem HCl ER Coated Beads 240 MG Oral; Duration: 90 Days Acti ve Losartan Potassium 50 MG TAKE 1 TABLET B Y MOUTH EVERY DAY Oral; Duration: 90 Days Active Farxiga 10 MG Oral; Duration: 90 Days Active dilTIAZem HCl ER Coated Beads 240 MG Oral; Duration: 90 Days Not- Taking Social History Tobacco Use: Social History Observation Description Date Details (start date - stop date) Never Smoker NA - NA Sex Assigned At : Social History Observation Description Sex Assigned At Male Tobacco Control (Standard) Question Answer Notes Tobacco use: Nonsmoker Additional Findings: Tobacco non-user Current no nsmoker Section Notes: Nutrition counseling focusin g on a low sodium and low sugar diet discussed with the patient, as well as appropriate weekly exercise and increased activity as tolerated to work towards a more optimal body mass index for improved overall health. Vital Signs Heart Rate 87 /min 03/12/2024 Blood pressure diastolic 71 mm Hg 03/12/2024 Height-cm 172.72 cm 03/12/2024 Weight-kg 164.2 kg 03/12/2024 Height 5'8 in 03/12/2024 Blood pressure systolic 116 mm Hg 03/12/2024 Weight 362 lbs 03/12/2024 BMI 55.04 kg/m2 03/12/2024 Encounters Encounter Location Date Provider Diagnosis [facility] [address] [place], [place] [id number] 03/12/2024 Jane Conley Encounter for dent al examination and cleaning with abnormal findings Z01.21 ; Necrosis of pulp K04.1 ; Complete loss of teeth, unspecified cause, class I K08.101 and Encounter for screening for dental disorders Z13.84 Assessments Encounter Date Diagnosis (ICD Code) Assessment Notes Treatment Notes Treatment Clinical Notes Section Notes 03/12/2024 Encounter for dental examination and cleaning with abnormal findings (ICD-10 - Z01.21) 03/12/2024 Necrosis of pulp (ICD-10 - K04.1) 03/12/2024 Complete loss of teeth, unspecified cause, class I (ICD-10 - K08.101) 03/12/2024 Encounter for screening for dental disorders (ICD-10 - Z13.84) Plan Of Treatment No Information Insurance Providers Payer Name Payer Address Payer Phone Subscriber Number Group Number Insured Name Patient Relationship to Insured Coverage Start Date Coverage End Date DAmerihe alth Dentaque st [facility] [address] [place] [address] [id number] Dmitriy Duong Self - patient is the insured 4 [employer] d [employer] after Amerihea lthDenta rust [address] [place], [place] [id number] Dmitriy Duong Self - patient is the insured 4
--- OUTSIDE RECORDS SUMMARY | 2025-01-29 20:31 | XMS_ITS | Encounter Summary ---
Author Organization [facility] Address [address] [place] [address] Care Team Providers Care Electronics Tech Name Role Phone Eusebia Terrell NP Unavailable [phone] Mirza Pérez MD Primary Care Provider [phone] Encounter Details Date Type Department Care Team ([facility] Contact Info) Description 09/17/[address] [facility] [address] [place] [address] Eusebia Terrell, GENESIS [address] [place] [address] Social History Tobacco Use Types Packs/Day Years Used Date Smoking Tobacco: Former Cigarettes Q uit: 07/31/2012 Alcohol Use Standard Drinks/Week Comments Not Currently 0 (1 standard drink = 0.6 oz pur e alcohol) caffeine 1-2 cups per day PHQ-2 Answer Date Recorded Patient Health Questionnaire-2 Score 0 06/19/2024 Sex and Gender Information Value Date Recorded Sex Assigned at Not on file Legal Sex Male 7:21 PM EDT Gender Identity Not on file Sexual Orientation Not on file documented as of this encounter Plan of Treatment Upcoming Encounters Date Type Department Care Team ([facility] Contact Info) Description 02/02/2025 2:40 PM EDT Office Visit [facility] [address] [place] [address] Eusebia Terrell, GENESIS [address] [place] [address] documented as of this encounter Procedures Procedure Name Priority Date/Time Associated Diagnosis Comments MICROALBUMIN / CREATININE URINE RATIO Routine 09/17/2024 3:29 PM EDT documented in this encounter Results * Microalbumin / creatinine urine ratio (09/17/2024 3:29 PM EDT) Urine Urine specimen obtained by clean catch procedure / Unknown Eusebia Terrell PEDIATRICS HOSPITALIST LAB URINE ORDERABLES Final Resu lt documented in this encounter Visit Diagnoses Not on filedocumented in this encounter Additional Health Concerns Assessment Noted Time PHQ-9 Depression Total Score: 2 06/19/19 25 10:05 AM EST documented as of this encounter Care Teams Electronics Tech Relationship Specialty Start Date End Date Mirza Pérez MD [address] [place] [address] PCP - General Family Medicine 04/17/24 Eusebia Terrell NP [address] [place] [address] Nurse Practitioner Family Medicine 03/18/23 documented as of this encounter
--- OUTSIDE RECORDS SUMMARY | 2025-01-29 20:31 | XMS_ITS | Encounter Summary ---
Author Organization [facility] Address [address] [place] [id number] Phone Care Team Providers Care Rv Service Technician Name Role Phone Eusebia Terrell APRN-TEACHER EDUCATION DIRECTOR Primary Care Provider Justyn Covington MD Unavailable [phone] Encounter Details Date Type Department Care Team (Late st Contact Info) Description 02/04/2022 Orders Only [facility] [address] [place] [address] Conversion, Onbase Social History Tobacco Use Types [...] Description 02/20/2025 10:00 AM EDT Office Visit [place] [id number] [facility] [address] [place] [address] Sonia Christian MD 703 [facility] 2, [address] [place] [address] Scheduled Orders Name Type Priority Associated Diagnoses Orde r Schedule OUTSIDE LAB SCAN Lab Ordered: 02/04/2022 documented as of this encounter Visit Diagnoses Not on filedocumented in this encounter Care Teams Rv Service Technician Relationship Specialty Start Date End Date Eusebia Terrell APRN-TEACHER EDUCATION DIRECTOR [address] [place] [address] PCP - General 11/04/19 Justyn Covington MD [address] [facility] Office [facility], [address] [address] Dedicated Local Truck Driver Cardiology 07/05/23 documented as of this encounter
--- OUTSIDE RECORDS SUMMARY | 2025-01-29 20:31 | XMS_ITS | Encounter Summary ---
Author Organization [facility] Address [address] [place] [address] Care Team Providers Care Science Teacher Name Role Phone Eusebia Terrell NP Unavailable [phone] Mirza Pérez MD Primary Care Provider [phone] Mirza Pérez MD Primary Care Provider [phone] Unallocated, [facility] Provider Primary Care Provi lindsey Mirza Pérez MD Primary Care Provider [phone] Encounter Details Date Type Department Care Team (Late Contact Info) Description 06/06/[address] [facility] [address] [place] [address] Eusebia Terrell, WHEEL ASSEMBLER [address] [place] [address] Social History Tobacco Use Types Packs/Day Years Used Date Smoking Tobacco: Former Cigarettes Q uit: 07/31/2012 Tobacco Cessation:Counseling Given: Not Answered Alcohol Use Standard Drinks/Week Comments Not Currently 0 (1 standard drink = 0.6 oz pur e alcohol) caffeine 1-2 cups per day Sex and Gender Information Value Date Recorded Sex Assigned at Not on file Legal Sex Male 7:21 PM EDT Gender Identity Not on file Sexual Orientation Not on file documented as of this encounter Plan of Treatment Upcoming Encounters Date Type Department Care Team (Late Contact Info) Description 02/02/2025 2:40 PM EDT Office Visit [facility] [address] [place] [address] Eusebia Terrell, GENESIS [address] [place] [address] documented as of this encounter Visit Diagnoses Not on filedocumented in this encounter Care Teams Science Teacher Relationship Specialty Start Date End Date Mirza Pérez MD [address] [place] [address] PCP - General Family Medicine 06/05/23 08/13/23 Mirza Pérez MD [address] [place] [address] PCP - General Family Medicine 08/14/23 04/08/24 Unallocated, N[facility] Provider, [address] [place] [address] PCP - General Family Medicine 04/09/24 04/16/24 Mirza Pérez MD [address] [place] [address] PCP - General Family Medicine 04/17/24 Eusebia Terrell NP [address] [place] [address] Nurse Practitioner Family Medicine 03/18/23 documented as of this encounter
--- OUTSIDE RECORDS SUMMARY | 2025-01-29 20:31 | XMS_ITS | Encounter Summary ---
Author Organization [facility] Address [address] [place] [address] Care Team Providers Care Behavioral Health Clinician Name Role Phone Eusebia Terrell NP Unavailable [phone] Mirza Pérez MD Primary Care Provider [phone] Unallocated, [facility] Provider Primary Care Provi lindsey Mirza Pérez MD Primary Care Provider [phone] Encounter Details Date Type Department Care Team (Late Contact Info) Description 01/23/2024 Orders Only [facility] [address] [place] [address] Eusebia Terrell, PAINTING TRADES WORKER [address] [place] [address] Social History Tobacco Use Types Packs/Day Years [...] Upcoming Encounters Date Type Department Care Team ([facility] Contact Info) Description 02/02/2025 2:40 PM EDT Office Visit [facility] [address] [place] [address] Eusebia Terrell NP [address] [place] [address] documented as of this encounter Procedures Procedure Name Priority Date/Time Associated Diagnosis Comments SCANNED LABS Routine 01/23/2024 8:37 AM EDT documented in this encounter Results * SCANNED LABS (01/23/2024 8:37 AM EDT) Eusebia Terrell PAINTING TRADES WORKER LAB CHG PERFORMABLES Final Resu lt documented in this encounter Visit Diagnoses Not on filedocumented in this encounter Care Teams Behavioral Health Clinician Relationship Specialty Start Date End Date Mirza Pérez MD [address] [place] [address] PCP - General Family Medicine 08/14/23 04/08/24 Unallocated, Coco Gomes MD [address] [place] [address] PCP - General Family Medicine 04/09/24 04/16/24 Mirza Pérez MD [address] [place] [address] PCP - General Family Medicine 04/17/24 Eusebia Terrell NP [address] [place] [address] Nurse Practitioner Family Medicine 03/18/23 documented as of this encounter
--- OUTSIDE RECORDS SUMMARY | 2025-01-29 20:31 | XMS_ITS | Encounter Summary ---
Author Organization [employer] [facility] tem Address [id number] [address] [place] [address] Care Team Providers Care Mail Teller Name Role Phone Eusebia Terrell PATSY-SELECTOR PACKER Primary Care Provider Encounter Details Date Type Department Care Team (Late st Contact Info) Description 08/11/2022 Orders Only [facility] Pulmonary/Sleep Medicine [address] [place] [address] Ref Prov, [place] [address] Social History Tobacco Use Types Packs/Day Years [...] Info) Description 05/07/2025 11:30 AM EST Appointment [facility] - Pulmonary Function [address] [place] [address] Lisa Cervantes, DO [address] [address] 05/21/2025 9:45 AM EST Office Visit [facility]Sleep Medicine [address] [place] [address] Lisa Cervantes, DO [address] [address] documented as of this encounter Procedures Procedure Name Priority Date/Time Associated Diagnosis Comments PULMONARY FUNCTION TEST Routine 08/11/2022 11:41 AM EST documented in this encounter Visit Diagnoses Not on filedocumented in this encounter Care Teams Mail Teller Relationship Specialty Start Date End Date Eusebia Terrell, SOLIDWORKS DESIGNER-SELECTOR PACKER PCP - General Nurse Practitioner 08/20/23 documented as of this encounter
--- OUTSIDE RECORDS SUMMARY | 2025-01-29 20:31 | XMS_ITS | Patient Health Record ---
Author Organization [facility] Address [address] [place] [address] Care Team Providers Care Senior Hardware Engineer Name Role Phone Yuan Barker Unavailable [phone] Allergies No Known Allergies Reason For Referral No Information Social History Tobacco Use: Social History Observation Description Date Details (start date - stop date) Never Smoker NA - NA Smoking History Question Answer Notes Smoking Status NonSmoker Alcohol Screening Question Answer Notes Did you have a drink containging alcohol in the last year? 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
--- OUTSIDE RECORDS SUMMARY | 2025-01-29 20:31 | XMS_ITS | Patient Health Record ---
Author Organization [facility] Address [address] [place] [address] Care Team Providers Care Toolroom Attendant Name Role Phone Eusebia Terrell CNP Primary Care Provider Unavail able Allergies No Known Allergies Reason For Referral No Information Medications Medication SIG (Take, Route, Frequency, Duration) Notes Start Date End Date Status Albuterol Sulfate HFA 108 (90 Base) MCG/ACT 1 puff as needed Inhalation every 4 hrs Active Cardizem CD 180 MG 1 capsule Orally Onc e a day Active 6.75-0.2 MG as directed Orally Active Atorvastatin Calcium 40 MG 1 tablet Oral ly Once a day Active Tylenol Extra Strength 500 MG 1 to 2 Orally every 6 hrs prn pain Active Trelegy Ellipta 100-62.5-25 MCG/ACT 1 puff Inhalation Once a day Active Lisinopril 20 MG 1 tablet Orally Once a day Active Aspirin 81 81 MG 1 tablet Orally Once a day Active Social History Tobacco Use: Social History Observation Description Date Details (start date - stop date) Former Smoker NA - 08/16/2012 Tobacco Use/Smoking Question Answer Notes Patient is a former smoker When did you stop smoking? 08/16/2012 How long has it been since y ou last smoked? > 10 years Additional Findings: Tobacco User Modera te cigarette smoker (10-19 cigs/day) Problems Problem Type SNOMED Code ICD Code Onset Dates Problem Status W/U Status Risk Notes Problem COPD - Chronic obstructive pulmonary disease (24423668) COPD (chronic obstructive pulmonary disease) (J44.9) Active confirmed Problem Atrial fibrillation (disorder) (20015914) Afib (I48.91) Active confirmed Problem Coronary artery disease (48075694) CAD (coronary artery disease) (I25.10) Active confirmed Problem Obstructive sleep apnea syndrome (01136700) CATERINA (obstructive sleep apnea) (G47.33) Active confirmed Problem Continuous positive airway pressure ventilation treatment (85884961) CPAP (continuous positive airway pressure) dependence (Z99.89) Active confirmed Problem Acute exacerbation of chronic obstructive airways disease (611033573) COPD exacerbation (J44.1) Active confirmed Problem Benign fibroma of prostate (677751016) 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 Plan Of Treatment Pending Test Test Name Order Date BMP w/GFR 12/21/2023 Insurance Providers Payer Name Payer Address Payer Phone Subscriber Number Group Number Insured Name Patient Relationship to Insured Coverage Start Date Coverage End Date [employer] EXCHANGE [address] [place] [address] [id number] Dmitriy Duong Self - patient is the insured 3 Medical (General) History Medical History History ICD Code 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 Ankle edema R60.0 2-vessel coronary artery disease I25.10 Acute dyspnea R06.00 Acute chronic obstructive pulmonary dise ase with respiratory distress J44.9 Borderline diabetic R73.03 Accelerated essential hypertension I10 Abnormal bronchography R91.8 Borderline hypercholesterolemia E78.00 Body mass index (BMI) greater than 50 E6 6.01 Acute bilateral venous stasis dermatitis I87.2 Varicose veins of leg with pain, right I 83.811 Acute insomnia G47.00 Aggressive ex-smoker Z87.891 A-fib I48.91 Myocardial infarction 410.90 Surgical History Surgery Date(Month/Year) cholecystectomy stents s/p [place] arthroscopic knee surgery, left left [facility] Hospitalization History Reason Date(Month/Year) respiratory 05/2022
--- OUTSIDE RECORDS SUMMARY | 2025-01-29 20:31 | XMS_ITS | Encounter Summary ---
Author Organization [facility] Address [address] [place] [phone] Phone Care Team Providers Care Shredding Machine Knife Changer Name Role Phone Eusebia Terrell APRN-INFORMATION TECHNOLOGY ACCOUNT MANAGER Primary Care Provider Justyn Covington MD Unavailable [phone] Encounter Details Date Type Department Care Team (Late st Contact Info) Description 04/01/2021 Orders Only [facility] [address] [place] [address] Conversion, Onbase Social History Tobacco Use Types [...] Description 02/20/2025 10:00 AM EDT Office Visit [place] [id number] [facility] [address] [place] [address] Sonia Christian MD 703 [facility] 2, [address] [place] [address] Scheduled Orders Name Type Priority Associated Diagnoses Orde r Schedule OUTSIDE LAB SCAN Lab Ordered: 04/01/2021 documented as of this encounter Visit Diagnoses Not on filedocumented in this encounter Care Teams Shredding Machine Knife Changer Relationship Specialty Start Date End Date Eusebia Terrell APRN-INFORMATION TECHNOLOGY ACCOUNT MANAGER [address] [place] [address] PCP - General 11/04/19 Justyn Covington MD [address] [facility] Office [facility], [address] [address] Library Media Technician Cardiology 07/05/23 documented as of this encounter
--- OUTSIDE RECORDS SUMMARY | 2025-01-29 20:31 | XMS_ITS | Encounter Summary ---
Author Organization [facility] [facility] Address [id number] [address] [place] [address] Care Team Providers Care Manager Of Sustainability Name Role Phone SocorrofernandoBlossom holdera David [facility] Primary Care Provider Encounter Details Date Type Department Care Team (Late st Contact Info) Description 09/20/2022 Orders Only [facility] Pulmonary/Sleep Medicine [address] [place] [address] Ivanna Lee LPN SOB (shortness of breath) Social History Tobacco Use Types Packs/Day Years Used Date Smoking Tobacco: Former Cigarettes Q uit: 2012 Smokeless Tobacco: Never Alcohol Use Standard Drinks/Week [...] Info) Description 05/07/2025 11:30 AM EST Appointment [facility] - Pulmonary Function [address] [place] [address] Lisa Cervantes, DO [address] [address] 05/21/2025 9:45 AM EST [facility] [address] [place] [address] Lisa Cervantes, DO [address] [address] documented as of this encounter Procedures Procedure Name Priority Date/Time Associated Diagnosis Comments PULMONARY FUNCTION TEST Routine 09/15/2022 SOB (shortness of breath) documented in this encounter Results * Pulmonary function test Complete PFT w/ BD (Spirometry (Flow Volume Loop) pre/post short acting bronchodilator w/ DLCO (diffusion study) and Lung Volume) (09/15/2022) 09/15/2022 us Lisa Cervantes DO PFT ORDERABLES Final Result MANUALLY TRANSCRIBED RESULTS documented in this encounter Visit Diagnoses Diagnosis SOB (shortness of breath) Shortness of breath documented in this encounter Care Teams Manager Of Sustainability Relationship Specialty Start Date End Date Eusebia Terrell, EXHIBIT SPECIALIST-CARPENTERS PCP - General Nurse Practitioner 08/20/23 documented as of this encounter
--- OUTSIDE RECORDS SUMMARY | 2025-01-29 20:31 | XMS_ITS | Encounter Summary ---
Author Organization [facility] Address [address] [place] [address] Care Team Providers Care Wine Manager Name Role Phone Eusebia Terrell NP Unavailable [phone] Mirza Pérez MD Primary Care Provider [phone] Reason for Visit * Reason Onset Date Comments Med Refill Medication Question 12/02/2024 Encounter Details Date Type Department Care Team (Late st Contact Info) Description 12/02/2024 Refill [facility] [address] [place] [address] Eusebia Terrell NP [address] [place] [address] Atrial fibrillation, unspecified type (HCC) Social History Tobacco Use Types Packs/Day [...] encounter Miscellaneous Notes * Telephone Encounter - Eusebia Terrell NP - 12/02/2024 5:02 PM EDT His water pills comes from his heart doctor not me, he needs to call them [place] * Telephone Encounter - Olga Hickmangabrielle - 12/02/2024 9:15 AM EDT Patient called saying he had called about getting his water pill refilled, and he has not gotten that or a call back. He wasn't sure on the name of the pill. JN documented in this encounter Plan of Treatment Upcoming Encounters Date Type Department Care Team (Late st Contact Info) Description 02/02/2025 2:40 PM EDT Office Visit [facility] [address] [place] [address] Eusebia Terrell NP [address] [place] [address] documented as of this encounter Visit Diagnoses Diagnosis Atrial fibrillation, unspecified type (HCC) documented in this encounter Additional Health Concerns Assessment Noted Time PHQ-9 Depression Total Score: 2 06/19/19 25 10:05 AM EST documented as of this encounter Care Teams Wine Manager Relationship Specialty Start Date End Date Mirza Pérez MD [address] [place] [address] PCP - General Family Medicine 04/17/24 Eusebia Terrell NP [address] [place] [address] Nurse Practitioner Family Medicine 03/18/23 documented as of this encounter
--- OUTSIDE RECORDS SUMMARY | 2025-01-29 20:31 | XMS_ITS | Encounter Summary ---
Author Organization [facility] Address [address] [place] [phone] Phone Care Team Providers Care Cinder Pitman Name Role Phone Eusebia Terrell APRN-NURSING AGENCY MANAGER Primary Care Provider Justyn Covington MD Unavailable [phone] Encounter Details Date Type Department Care Team (Late Contact Info) Description 03/16/2021 Orders Only [facility] [address] [place] [address] Conversion, Onbase Social History Tobacco Use Types Packs/Day Years Used Date Smoking Tobacco: Never Assessed Sex and Gender Information Value Date Recorded Sex Assigned at Not on file Legal Sex Male 1:48 PM EST Gender Identity Not on file Sexual Orientation Not on file documented as of this encounter Plan of Treatment Upcoming Encounters Date Type Department Care Team (Late Contact Info) Description 02/20/2025 10:00 AM EDT Office Visit [place] [id number] [address] [address] Sonia Christian MD 703 [facility] 2, [address] [place] [address] Scheduled Orders Name Type Priority Associated Diagnoses Orde r Schedule SLEEP STUDY ORDER - ONBASE SCAN Sleep Center Ordered: 021 documented as of this encounter Visit Diagnoses Not on filedocumented in this encounter Care Teams Cinder Pitman Relationship Specialty Start Date End Date Eusebia Terrell APRN-NURSING AGENCY MANAGER [address] [place] [address] PCP - General 11/04/19 Justyn Covington MD [address] [facility], [address] [address] Branding Specialist Cardiology 07/05/23 documented as of this encounter
--- OUTSIDE RECORDS SUMMARY | 2025-01-29 20:31 | XMS_ITS | Encounter Summary ---
Author Organization [facility] [employer] [facility] Address [id number] [address] [place] [address] Care Team Providers Care Kennel Staff Member Name Role Phone Eusebia Terrell [facility]OMATIC [facility]ER [facility] Primary Care Provider Encounter Details Date Type Department Care Team (Late Contact Info) Description 04/30/2023 Orders Only [facility] Pulmonary/Sleep Medicine [address] [address] Eusebia Terrell, AUTOMATIC DISPENSER [facility] [address] [place] [address] Social History Tobacco Use Types Packs/Day Years [...] Department Care Team (Late Contact Info) Description 05/07/2025 11:30 AM EST Appointment [facility] - Pulmonary Function [address] [address] Lisa Cervantes, DO [address] [address] 05/21/2025 9:45 AM EST [facility] [address] [facility] [place] [address] Lisa Cervantes, DO [address] [address] documented as of this encounter Procedures Procedure Name Priority Date/Time Associated Diagnosis Comments SIX MINUTE WALK Routine 04/26/2023 4:20 PM EST documented in this encounter Results * Six minute walk (04/26/2023 4:20 PM EST) us Eusebia Terrell APRN-BLIND SLAT STAPLING MACHINE OPERATOR RESPIRATORY CARE ORDERA BLES Final Result MANUALLY TRANSCRIBED RESULTS documented in this encounter Visit Diagnoses Not on filedocumented in this encounter Care Teams Kennel Staff Member Relationship Specialty Start Date End Date Eusebia Terrell APRN-CNP PCP - General Nurse Practitioner 08/20/23 documented as of this encounter
--- OUTSIDE RECORDS SUMMARY | 2025-01-29 20:31 | XMS_ITS | Encounter Summary ---
Author Organization [facility] Address [address] [place] [id number] Phone Care Team Providers Care Chief Radiology Name Role Phone Eusebia Terrell APRN-OUTSIDE SALES REPRESENTATIVE INSURANCE Primary Care Provider Justyn Covington MD Unavailable [phone] Encounter Details Date Type Department Care Team (Late st Contact Info) Description 05/09/2019 Orders Only [facility] [address] [place] [address] Conversion, Onbase Social History Tobacco Use Types [...] Description 02/20/2025 10:00 AM EDT Office Visit [place] [id number] [facility] [address] [place] [address] Sonia Christian MD [address] [facility] [address] [place] [address] Scheduled Orders Name Type Priority Associated Diagnoses Orde r Schedule OUTSIDE LAB SCAN Lab Ordered: 05/09/2019 documented as of this encounter Visit Diagnoses Not on filedocumented in this encounter Care Teams Chief Radiology Relationship Specialty Start Date End Date Eusebia Terrell APRN-OUTSIDE SALES REPRESENTATIVE INSURANCE [address] [place] [address] PCP - General 11/04/19 Justyn Covington MD [address] [facility], [address] [id number] [employer] Online Cardiology 07/05/23 documented as of this encounter
--- OUTSIDE RECORDS SUMMARY | 2025-01-29 20:31 | XMS_ITS | CCD ---
Author Organization [facility] Care Team Providers Care Medical Office Specialist Name Role Phone MADISON BLANCO Unavailable Unavailable NO FAMILY DOCTOR, NO FAMILY DOCTOR Unavailable Unavailable Eusebia Terrell Unavailable Unavailable Unavailable Dr. Madison Blanco Referring Unavaila denis Blanco, Dr. Scott Attending Unavaila ble Socorroholtonio, Mrs. Eusebia Rondon Primary Care Unavailab JUSTYN oLmeli Attending Leyla vailable Xander, Mrs. Eusebia Rondon Primary Care Unavailab JUSTYN Lomeli Referring Leyla vailable Brenton, NATALIA Arellano Referring Unavailable NATALIA Farris Attending Unavailable Xander, Mrs. Eusebia Rondon Primary Care Unavailab annie Blanco, Dr. Scott Referring Unavaila denis Blanco, Dr. Scott Attending Unavaila ble Aicholtonio, Mrs. Eusebia Rondon Primary Care Unavailab le AICHOLZ, REPORTER ANCHOR EUSEBIA Primary Care Unavailable DR VIDHI FARRIS Consulting Unavailable DR VIDHI FARRIS Admitting Unavailable DR VIDHI FARRIS Attending Unavailable EUSEBIA VICTORIA Consulting Unavailable MARCO ANTONIO FRIEDMAN Consulting Unavailable AICHHOLZ, REPORTER ANCHOR EUSEBIA Primary Care Unavailable ANNAMARIE ., TED Admitting Unavailable ANNAMARIE .TED Attending Unavailable ANNAMARIE ., TED Consulting Unavailable ROBERTA PERRIN Consulting Unavailable AYDINROBERTA Attending Unavailable AYDIN, ROBERTA Admitting Unavailable AICHHOLZ, REPORTER ANCHOR EUSEBIA Primary Care Unavailable MARLENE ARAMBULA Consulting Unavailable AICHHOLZ, REPORTER ANCHOR EUSEBIA Primary Care Unavailable AYDIN, ROBERTA Admitting Unavailable AYDIN, ROBERTA Attending Unavailable AYDIN, ROBERTA Consulting Unavailable Nery Mckeon Consulting Unavailable AICHHOLZ, REPORTER ANCHOR EUSEBIA Primary Care Unavailable CAM ., DR CONNOLLY Admitting Unavailable CAM ., DR CONNOLLY Attending Unavailable RAFAEL, DR MARCO ANTONIO Stewart Consulting Unavailable CLARY ORDARTE Consulting Unavailable AICHHOLZ, REPORTER ANCHOR EUSEBIA Primary Care Unavailable BRENTON, DR VIDHI Biswas Admitting Unavailable BRENTON, DR VIDHI Biswas Attending Unavailable BRENTON, DR VIDHI Biswas Consulting Unavailable DONG BUNDY Consulting Unavailable ANNAMARIE .TED Consulting Unavailable ANNAMARIE ., TED Attending Unavailable ANNAMARIE ., TED Admitting Unavailable AICHHOLZ, REPORTER ANCHOR EUSEBIA Primary Care Unavailable Dawit, Leo Consulting Unavailable ROMEO .DR FRANCO Consulting Unavailable ROMEO ., DR FRANCO Attending Unavailable AICHHOLZ, REPORTER ANCHOR EUSEBIA Primary Care Unavailable ROMEO .DR FRANCO Admitting Unavailable HAY ., DR CONNOLLY Consulting Unavailable AYDIN, ROBERTA Consulting Unavailable SANDEEP MARY Consulting Unavailable AICHHOLZ, REPORTER ANCHOR EUSEBIA Consulting Unavailable AICHHOLZ, REPORTER ANCHOR EUSEBIA Primary Care Unavailable AICHHOLZ, REPORTER ANCHOR EUSEBIA Attending Unavailable AICHHOLZ, REPORTER ANCHOR EUSEBIA Admitting Unavailable MISC, DR DAVIS Consulting Unavailable AICHHOLZ, REPORTER ANCHOR EUSEBIA Primary Care Unavailable MISC, DR DAVIS Attending Unavailable MISC, DR DAVIS Admitting Unavailable ZICATHLEEN, DR KESHAWN Biswas Consulting Unavailable AICHHOLZ, REPORTER ANCHOR EUSEBIA Primary Care Unavailable RICA YE Attending Unavailable RICA YE Admitting Unavailable CASSIRICA Consulting Unavailable AICHHOLZ, REPORTER ANCHOR EUSEBIA Consulting Unavailable AICHHOLZ, REPORTER ANCHOR EUSEBIA Primary Care Unavailable AICHHOLZ, REPORTER ANCHOR EUSEBIA Attending Unavailable AICHHOLZ, REPORTER ANCHOR EUSEBIA Admitting Unavailable AICHHOLZ, REPORTER ANCHOR EUSEBIA Admitting Unavailable AICHHOLZ, REPORTER ANCHOR EUSEBIA Attending Unavailable AICHHOLZ, REPORTER ANCHOR EUSEBIA Primary Care Unavailable AICHHOLZ, REPORTER ANCHOR EUSEBIA Consulting Unavailable MIRZA GUZMÁN Attending Unavailable MIRZA GUZMÁN Admitting Unavailable ROMEO .DR FRANCO Consulting Unavailable AICHHOLZ, REPORTER ANCHOR EUSEBIA Primary Care Unavailable BABITA .DR SCOTT Consulting Unavailable MIRZA GUZMÁN Consulting Unavailable NIKOLAY .KARISHMA Consulting UnavailJuanjose Sue, DR CONNOLLY Consulting Unavailable KESHAWN ALVAREZ Consulting Unavailable Aichholz, Linette Eusebia Rondon Primary Care Unavailab le SEBASTIAN, NAIM Attending Unavailable Aichholz, . Eusebia Rondon Primary Care Unavailab le SEBASTIAN, NAIM Attending Unavailable Aichholz HEALTH OCCUPATIONS TEACHER-REPORTER ANCHOR, Eusebia Rondon Primary Care Provider Aichholz SOLID PROPELLANT PROCESSOR, Eusebia Unavailable Elisa PAREDES, Mirza Primary Care Provider Justyn Covington MD Unavailable LISA CERVANTES Attending Unavailable AICHHOLZ, EUSEBIA J Referring Unavailable AICHHOLZ, EUSEBIA J Primary Care Unavailable AICHHOLZ, EUSEBIA J Referring Unavailable AICHHOLZ, EUSEBIA J Primary Care Unavailable Aichholz SOLID PROPELLANT PROCESSOR, Eusebia Unavailable Elisa PAREDES, Mirza Primary Care Provider Unallocated MD, Noms Provider Primary Care Provi lindsey Elisa PAREDES, Mirza Primary Care Provider Aichholz HEALTH OCCUPATIONS TEACHER-REPORTER ANCHOR, Eusebia Hernandez Primary Care Provider Aichholz HEALTH OCCUPATIONS TEACHER-REPORTER ANCHOR, Eusebia J Primary Care Provider Gi Kimble Primary Care Provider [phone] Unavailable Primary Care Provider Unavailabl e Aichholz HEALTH OCCUPATIONS TEACHER-REPORTER ANCHOR, Eusebia David Primary Care Provider Aichholz HEALTH OCCUPATIONS TEACHER-REPORTER ANCHOR, Eusebia Rondon Primary Care Provider Justyn Covington MD Unavailable MADISON BLANCO Attending Unavailable MADISON BLANCO Referring Unavailable EUSEBIA TERRELL Primary Care Unavailable AICHHOLZ, EUSEBIA Attending Unavailable AICHHOLZ, EUSEBIA Attending Unavailable AICHHOLZ, EUSEBIA Attending Unavailable AICHHOLZ, EUSEBIA Attending Unavailable AICHHOLZ, EUSEBIA Attending Unavailable Aichholz HEALTH OCCUPATIONS TEACHER-REPORTER ANCHOR, Eusebia J Primary Care Provider AICLESTER EUSEBIA J Referring Unavailable AICHHOLZ, EUSEBIA J Primary Care Unavailable AICHHOLZ, EUSEBIA J Referring Unavailable EUSEBIA TERRELL Primary Care Unavailable EUSEBIA TERRELL Referring Unavailable EUSEBIA TERRELL Primary Care Unavailable EUSEBIA TERRELL Primary Care Unavailable LUKE CASTRO Attending Unavailable Unavailable Unavailable Unavailable Allergies Allergy Classification Reported Allergen(s) Allergy Type Date of Onset Reaction(s) Facility (20 sources) Lisinopril; Translations: [Lisinopril TABS] Drug Allergy 3 Cough [facility] (20 sources) Lisinopril; Translations: [LISINOPRIL] Propensity to adverse reactions 3 Cough [facility] Medications Current Medications Medication Drug Class(es) Dates Sig (Normalized) Sig (Original) albuterol 0.833 mg/ml / ipratropium bromide 0.167 mg/ml inhalation solution (20 sources) Anticholinergic, beta2-Adrenergic Agonist Start: 2023 ipratropium-albute rol (Duo-Neb) 0.5-2.5 mg/3 mL nebulizer solution Inhale 3 mL in the morning and 3 mL at noon and 3 mL in the evening and 3 mL before bedtime. 2023 Active Start: 2023 End: 01-21-2024 take 1 mL by inhalation four times daily as needed ipratropium-albuteroL (Duo-Neb) 0.5-2.5 mg/3 mL nebulizer solution Inhale 1 mL 4 times a day as needed. 2023 Active apixaban 5 mg oral tablet (20 sources) Factor Xa Inhibitor Start: 09-03-2024 End: 01-01-2025 take 1 tablet by mouth in the morning apixaban (Eliquis) 5 MG tablet Indications: Atrial fibrillation, unspecified type (HCC) Take 1 tablet (5 mg) by mouth in the morning and 1 tablet (5 mg) before bedtime. 60 tablet 2 12/02/2024 Active Start: 09-27-2023 End: 05-06-2024 take 1 tablet by mouth in the morning apixaban (Eliquis) 5 MG tablet Indications: Atrial fibrillation, unspecified type (CMS/HCC) Take 1 tablet (5 mg) by mouth in the morning and 1 tablet (5 mg) before bedtime. 180 tablet 1 02/06/2024 Active Start: 07-14-2023 End: 08-13-2023 take 1 tablet by mouth in the morning apixaban (Eliquis) 5 MG tablet Indications: Atrial fibrillation, unspecified type (CMS/HCC) Take 1 tablet (5 mg) by mouth in the morning and 1 tablet (5 mg) before bedtime. 60 tablet 2 07/14/2023 08/13/2023 Active aspirin 81 mg delayed release oral tablet (20 sources) Platelet Aggregation Inhibitor, Nonsteroidal Anti-inflammatory Drug Start: 12-04-2024 End: 03-04-2025 take 1 tablet by mouth once daily aspirin (Aspirin Low Dose) 81 MG EC tablet Indications: Paroxysmal atrial fibrillation (HCC) Take 1 tablet (81 mg) by mouth Daily 90 tablet 1 12/04/2024 03/04/2025 Active Start: 05-28-2024 End: 09-18-2024 take 1 tablet by mouth once daily aspirin (Aspirin Low Dose) 81 MG EC tablet Indications: Paroxysmal atrial fibrillation (CMS/HCC) Take 1 tablet (81 mg) by mouth Daily 90 tablet 1 06/17/2024 09/18/2024 Active Start: 02-06-2024 End: 05-06-2024 take 1 tablet by mouth once daily in the morning aspirin 81 MG EC tablet Indications: Paroxysmal atrial fibrillation (CMS/HCC) Take 1 tablet (81 mg) by mouth Daily Take 81 mg by mouth in the morning. 90 tablet 1 02/06/2024 05/06/2024 Active aspirin 81 mg ch ewable tablet Chew 2 tablets (162 mg total) and swallow in the morning. 2 in the morning. Active aspirin 81 mg ch ewable tablet Chew 1 tablet (81 mg total) and swallow in the morning. Active atorvastatin 40 mg oral tablet (20 sources) HMG-CoA Reductase Inhibitor Start: 04-24-2019 End: 03-22-2025 take 1 tablet by mouth at bedtime atorvastatin (Lipitor) 40 MG tablet Indications: Hyperlipidemia, unspecified Take 1 tablet (40 mg) by mouth at bedtime 90 tablet 1 12/22/2024 03/22/2025 Active benzonatate 200 mg oral capsule (2 sources) Non-narcotic Antitussive Start: 06-19-2024 End: 06-26-2024 take 1 capsule by mouth three times daily as needed for cough benzonatate (Tessalon) 200 MG capsule Indications: Upper respiratory tract infection, unspecified type Take 1 capsule (200 mg) by mouth 3 (three) times a day as needed for cough for up to 7 days Do not crush or chew. 21 capsule 06/19/2024 06/26/2024 Active cholecalciferol 1.25 mg oral capsule (6 sources) Vitamin D End: 10-15-2024 take 1 capsule by mouth once daily cholecalciferol (Vitamin D-3) 50,000 unit capsule Take 1 capsule (1.25 mg) by mouth once daily. 10/15/2024 Discontinued (Therapy completed) take 1 capsule by mouth in the m orning cholecalciferol (Vitamin D-3) 1.25 MG (30030 UT) capsule Take 50,000 Units by mouth in the morning. 0 Active dapagliflozin 10 mg oral tablet (20 sources) Sodium-Glucose Cotransporter 2 Inhibitor Start: 08-20-2023 End: 03-22-2025 take 1 tablet by mouth in the morning FARXIGA 10 mg tablet Indications: Chronic diastolic heart failure (CMS-HCC) , Coronary artery disease involving havasupai coronary artery of havasupai heart without angina pectoris , Persistent atrial fibrillation (CMS-HCC) TAKE 1 TABLET (10 MG TOTAL) BY MOUTH IN THE MORNING 30 tablet 11 02/05/2024 Active 24 hr dilTIAZem hydrochloride 240 mg extended release oral capsule (20 sources) Calcium Channel Preet Start: 05-14-2023 End: 02-06-2024 take 1 capsule by mouth every twenty-four hours in the morning dilTIAZem CD (Cardizem CD) 240 MG 24 hr capsule Indications: Atrial Fibrillation , Hypertension Take 1 capsule (240 mg) by mouth in the morning. 30 capsule 3 05/14/2023 02/06/2024 Discontinued (Reorder) Start: 05-14-2023 End: 12-17-2024 take 1 capsule by mouth once daily dilTIAZem CD (Cardizem CD) 240 MG 24 hr capsule Indications: Atrial Fibrillation , Hypertension Take 1 capsule (240 mg) by mouth Daily 90 capsule 1 09/18/2024 Active Start: 03-27-2020 End: 07-26-2023 take 1 capsule by mouth every twenty-four hours Dilt-XR 180 MG Oral Capsule Extended Release 24 Hour Quantity: 90 Refills: 0 Ordered: 17-Dec-2020 DO Start : 27-Mar-2020 Complete Start: 03-27-2020 End: 04-13-2023 take 1 capsule by mouth once daily dilTIAZem XR (DILT-XR) 180 mg 24 hr capsule Take 1 capsule (180 mg) by mouth once daily. 0 03/27/2020 04/13/2023 Discontinued (Therapy completed) Start: 04-24-2019 take 180 mg by mouth once daily in the morning Diltiazem Hcl Active 180 MG Oral Every morning April 24, 2019 11:20am fluticasone propionate 0.05 mg/actuat metered dose nasal [...] / vilanterol 0.025 mg/actuat dry powder inhaler (20 sources) Anticholinergic, Corticosteroid, beta2-Adrenergic Agonist Start: 09-27-2023 End: 12-17-2024 take 1 puff(s) by mouth once daily Fluticasone-Umecl idin-Vilant (Trelegy Ellipta) 100-62.5-25 MCG/ACT aerosol powder Indications: Chronic obstructive pulmonary disease, unspecified COPD type (HCC) Use 1 puff in the mouth or throat Daily Rinse mouth after use 3 each 1 09/18/2024 Active Start: 05-14-2023 take 1 puff(s) by mo uth in the morning Zwovs[place]agie-Nnznypzfj-Xrhksg (Trelegy Ellipta) 100-62.5-25 MCG/ACT aerosol powder Indications: Chronic obstructive pulmonary disease, unspecified COPD type (CMS/HCC) Use 1 puff in the mouth or throat in the morning. Rinse mouth after use. 1 each 2 05/14/2023 Active Start: 03-28-2020 take 1 puff(s) by mo ut once daily Trelegy Ellipta 100-62.5-25 MCG/INH Inhalation Aerosol Powder Breath Activated INL 1 PUFF PO D Quantity: 60 Refills: 0 Ordered: 19-May-2020 DO Start : 28-Mar-2020 Complete Start: 04-24-2019 Fluticasone-Um eclidin-Vilanter Active 1 INH Inhalation Daily April 24, 2019 11:20am take 1 puff(s) by inhalation in the morning dceqofxpsex-wtwvytiol-apyperhg (TRELEGY ELLIPTA) 100-62.5-25 mcg blister with device Inhale 1 puff in the morning. Active take 1 puff(s) by inhalation every twenty-four hours Trelegy Ellipta 100-62.5-25 mcg blister with device Inhale 1 puff once every 24 hours. Active hmiwxsvxkyz-ecxuilaqf-airlzd er (Trelegy Ellipta) 200-62.5-25 mcg blister with device (1 source) End: 04-13-2023 xyrwoposmsa-rlqipmduz-tiaskc er (Trelegy Ellipta) 200-62.5-25 mcg blister with device Inhale once daily. 0 04/13/2023 Discontinued (Therapy completed) hydroCHLOROthiazide 25 mg or al tablet (9 sources) Thiazi de Diatat ic Start: 08-18-2020 End: 04-13-2023 take 1 tablet by mouth once daily hydroCHLOROthiazide (HYDRODiuril) 25 mg tablet Take 1 tablet (25 mg) by mouth once daily. 0 08/18/2020 04/13/2023 Discontinued (Therapy completed) Start: 04-24-2019 take 25 mg by mouth once daily in the morning Hydrochlorothiazide Active 25 MG Oral Every morning April 24, 2019 11:20am 200 actuat levalbuterol 0.045 mg/actuat metered dose inhaler (20 sources) beta2-Adrenergic Agonist Start: 07-30-2024 End: 08-29-2024 take 2 puff(s) by inhalation every six hours for wheezing levalbuterol (Xopenex) 45 MCG/ACT inhaler Indications: Chronic obstructive pulmonary disease, unspecified COPD type (HCC) Inhale 2 puffs every 6 (six) hours if needed for wheezing or shortness of breath 15 g 1 07/30/2024 Active Start: 07-02-2023 End: 03-07-2024 take 2 puff(s) by inhalation every six hours for wheezing levalbuterol (Xopenex) 45 MCG/ACT inhaler Indications: Chronic obstructive pulmonary disease, unspecified COPD type (CMS/HCC) Inhale 2 puffs every 6 (six) hours if needed for wheezing or shortness of breath 15 g 1 02/06/2024 Active Start: 05-03-2023 take 3 mL by inhalat ion four times daily as needed for wheezing levalbuterol (XOPENEX) 1.25 mg/3 mL nebulizer solution Indications: Chronic obstructive pulmonary disease, unspecified COPD type (CMS-HCC) INHALE 3 ML BY NEBULIZATION 4 (FOUR) TIMES A DAY NEEDED FOR WHEEZING. 360 mL 5 05/03/2023 Active take 1-2 puff(s) by inhalation every four hours as needed levalbuterol (XOPENEX HFA) 45 mcg/actuation inhaler Inhale 1-2 puffs every 4 (four) hours as needed. Active levalbuterol (Xo penex) 45 mcg/actuation inhaler Inhale 1-2 puffs. Active levoFLOXacin 750 mg oral tablet (2 sources) Quinolone Antimicrobial End: 10-08-2023 levoFLOXacin (Levaquin) 750 mg tablet Take by mouth once daily. 10/08/2023 Discontinued (Therapy completed) lisinopril 5 mg oral tablet (12 sources) Angiotensin Converting Enzyme Inhibitor Start: 11-16-2020 End: 04-13-2023 take 1 tablet by mouth once daily lisinopril 5 mg tablet Take 1 tablet (5 mg) by mouth once daily. 0 11/16/2020 04/13/2023 Discontinued (Therapy completed) Start: 11-16-2020 take 1 tablet by tristan th once daily Lisinopril 20 MG Oral Tablet TAKE 1 TABLET DAILY. Quantity: 90 Refills: 3 Ordered: 19-Jul-2022 Justyn Covington MD Start : 16-Nov-2020 Active Increase to [...] morning. 90 tablet 1 07/23/2023 10/21/2023 Active losartan potassium 50 mg oral tablet (20 sources) Angiotensin 2 Receptor Preet Start: 09-15-2022 End: 09-15-2024 take 1 tablet by mouth once daily losartan (Cozaar) 50 MG tablet Indications: Primary hypertension Take 1 tablet (50 mg) by mouth Daily 90 tablet 1 06/17/2024 Active meloxicam 15 mg oral tablet (2 sources) Nonsteroidal Anti-inflammatory Drug Start: 04-24-2019 take 15 mg by mouth once daily Meloxicam Active 15 MG Oral Daily April 24, 2019 11:20am metoprolol tartrate 50 mg oral tablet (20 sources) beta-Adrenergic Preet Start: 07-02-2023 End: 10-28-2024 take 1 tablet by mouth in the morning, then take 1 tablet by mouth at bedtime metoprolol tartrate (LOPRESSOR) 50 mg tablet Take 1 tablet (50 mg total) by mouth in the morning and 1 tablet (50 mg total) before bedtime. 08/20/2023 Active Start: 2023 End: 07-26-2023 take 1 tablet by mouth in the morning, then take 1 tablet by mouth at bedtime metoprolol tartrate (LOPRESSOR) 100 mg tablet Take 1 tablet (100 mg total) by mouth in the morning and 1 tablet (100 mg total) before bedtime. 0 2023 07/26/2023 Discontinued (Dose adjustment) End: 10-15-2024 take 1 tablet by mouth twice daily metoprolol tartrate (Lopressor) 25 mg tablet Take 1 tablet (25 mg) by mouth 2 times a day. 10/15/2024 Discontinued (Dose adjustment) End: 08-20-2023 take 2 tablets by mouth in the morning, then take 2 tablets by mouth at bedtime metoprolol tartrate (LOPRESSOR) 25 mg tablet Take 2 tablets (50 mg total) by mouth in the morning and 2 tablets (50 mg total) before bedtime. 0 08/20/2023 Discontinued (Reorder) nitroglycerin 0.4 mg sublingual tablet (20 sources) Nitrate Vasodilator Start: 10-15-2024 nitroglyce rin (Nitrostat) 0.4 mg SL tablet Indications: 2-vessel coronary artery disease Place 1 tablet (0.4 mg) under the tongue every 5 minutes if needed for chest pain. 25 tablet 11 10/15/2024 Active Start: 05-14-2023 End: 10-15-2024 nitroglycerin (NITROSTAT) 0. [address] 1 tablet (0.4 mg total) under the tongue every 5 (five) minutes as needed for chest pain. 05/14/2023 Active Oxygen (20 sources) oxygen (O2) gas Inhale continuously Active oxygen Inhale co ntinuously. Active oxygen Inhale co ntinuously. 0 Active microencapsulated potassium chloride 10 meq extended release oral tablet (20 sources) Start: 07-14-2023 End: 08-13-2023 take 2 tablets by mouth in the morning potassium chloride CR (KLOR-CON) 10 MEQ ER tablet Indications: Bilateral lower extremity edema , Hypokalemia Take 2 tablets (20 mEq) by mouth in the morning. 60 tablet 2 07/14/2023 08/13/2023 Active Start: 07-14-2023 End: 08-13-2023 potassium chloride (KLOR-CON M 10) 10 MEQ CR tablet Take 2 tablets (20 mEq total) by mouth in the morning. 0 07/14/2023 08/13/2023 Active Start: 07-19-2022 End: 10-15-2024 take 1 tablet by mouth once daily at mealtime Klor-Con 10 10 MEQ Oral Tablet Extended Release TAKE 1 TABLET DAILY WITH FOOD. Quantity: 14 Refills: 0 Ordered: 19-Jul-2022 Justyn Covington MD Start : 19-Jul-2022 Active New to start for only 2 weeks please. thank you take 1 tablet by tristan th in the morning potassium chloride (K-TAB,KLOR-CON) 10 MEQ CR tablet Take 1 tablet (10 mEq total) by mouth in the morning and 1 tablet (10 mEq total) before bedtime. Active prednisoLONE 10 mg disintegrating oral tablet (2 sources) Corticosteroid End: 10-08-2023 take 1 tablet by mouth once daily prednisoLONE ODT (OrapRED ODT) 10 mg disintegrating tablet Take 1 tablet (10 mg) by mouth once daily. 10/08/2023 Discontinued (Therapy completed) predniSONE 20 mg oral tablet (2 sources) Start: 06-19-2024 End: 06-24-2024 take 1 tablet by mouth in the morning predniSONE (Deltasone) 20 MG tablet Indications: Upper respiratory tract infection, unspecified type Take 1 tablet (20 mg) by mouth in the morning and 1 tablet (20 mg) in the evening. Take with meals. Do all this for 5 days. Take with food. 10 tablet 06/19/2024 06/24/2024 Active vitamin hvhzxxg-kzoh-fnxee ( Plus, calcium carb,) 27 mg iron- 1 mg tablet (1 source) Start: 01-03-2021 End: 04-13-2023 take 1 tablet by mouth once daily vitamin eijayyf-aeqm-ecffb ( Plus, calcium carb,) 27 mg iron- 1 mg tablet Take 1 tablet by mouth once daily. 0 01/03/2021 04/13/2023 Discontinued (Therapy completed) Semaglutide,0.25 or 0.5MG/DOS, (Ozempic, 0.25 or 0.5 MG/DOSE,) 2 MG/3ML solution pen-injector (9 sources) Start: 12-24-2023 End: 06-19-2024 Semaglutide,0.25 or 0.5MG/DOS, (Ozempic, 0.25 or 0.5 MG/DOSE,) 2 MG/3ML solution pen-injector Indications: Coronary artery disease involving havasupai coronary artery of havasupai heart without angina pectoris (CMS/HCC) , Morbid obesity with BMI of 50.0-59.9, adult (CMS/HCC) , Pre-diabetes Inject 0.25 mg under the skin every 7 (seven) days for 28 days 3 mL 1 12/24/2023 06/19/2024 Discontinued (Cost of medication) Start: 12-24-2023 Semaglutide,0. 25 or 0.5MG/DOS, (Ozempic, 0.25 or 0.5 MG/DOSE,) 2 MG/3ML solution pen-injector Indications: Coronary artery disease involving havasupai coronary artery of havasupai heart without angina pectoris (CMS/HCC) , Morbid obesity with BMI of 50.0-59.9, adult (CMS/HCC) , Pre-diabetes Inject 0.25 mg under the skin every 7 (seven) days for 28 days 3 mL 1 12/24/2023 Active spironolactone 25 mg oral tablet (20 sources) Aldosterone Antagonist Start: 10-31-2023 End: 12-22-2024 take 1 tablet by mouth in the morning spironolactone (ALDACTONE) 25 mg tablet TAKE 1 TABLET (25 MG TOTAL) BY MOUTH IN THE MORNING 90 tablet 2 08/11/2024 Active torsemide 20 mg oral tablet (20 sources) Loop Diuretic Start: 01-22-2024 End: 10-15-2024 take 1 tablet by mouth once daily as needed torsemide (DEMADEX) 20 mg tablet Indications: Chronic diastolic heart failure (CMS-HCC) , Coronary artery disease involving havasupai coronary artery of havasupai heart without angina pectoris , Persistent atrial fibrillation (CMS-HCC) Take 1 tablet (20 mg total) by mouth daily. May take an additional 20 mg as needed for swelling, weight gain SOB 135 tablet 3 03/24/2024 Active Start: 08-20-2023 End: 01-22-2024 take 2 tablets by mouth once daily torsemide (DEMADEX) 20 mg tablet Indications: Chronic diastolic heart failure (CMS-HCC) , Coronary artery disease involving havasupai coronary artery of havasupai heart without angina pectoris , Persistent atrial fibrillation (CMS-HCC) TAKE 2 TABLETS (40 MG TOTAL) BY MOUTH DAILY. 180 tablet 1 11/13/2023 01/22/2024 Discontinued (Reorder) Completed/Discontinued Medications Medication Drug Class(es) Dates Sig (Normalized) Sig (Original) acetaminophen 325 mg / HYDROcodone bitartrate 5 mg oral tablet (1 source) Opioid Agonist Start: 02-25-2021 HYDROcodone-Acetam inophen 5-325 MG Oral Tablet Quantity: 20 Refills: 0 Ordered: 25-Feb-2021 DO Start : 25-Feb-2021 Complete [id number] actuat albuterol 0.09 mg/actuat metered dose inhaler (1 source) beta2-Adrenergic Agonist Start: 12-06-2020 Albuterol Sulfate HFA 108 (90 Base) MCG/ACT Inhalation Aerosol Solution Quantity: 7 Refills: 0 Ordered: 06-Dec-2020 DO Start : 06-Dec-2020 Complete furosemide 20 mg oral tablet (6 sources) Loop Diuretic Start: 07-02-2023 End: 09-30-2023 take 2 tablets by mouth once daily furosemide (LASIX) 20 mg tablet Take 2 tablets (40 mg total) by mouth daily. 0 07/02/2023 08/20/2023 Discontinued Start: 07-02-2023 End: 09-30-2023 take 1 tablet by mouth in the morning furosemide (Lasix) 20 MG tablet Indications: Bilateral lower extremity edema Take 1 tablet (20 mg) by mouth in the morning. 90 tablet 1 07/02/2023 09/30/2023 Active End: 04-13-2023 furosemide (Lasix) 20 mg tab let Take by mouth once daily. 0 04/13/2023 Discontinued (Discontinued by another clinician) methylPREDNISolone 4 MG Oral Tablet Therapy Pack (1 source) Start: 08-14-2020 methylPREDNISo lone 4 MG Oral Tablet Therapy Pack Quantity: [...] Date Documented Date Episodic/Chronic Acute myocardial infarction (20 sources) Myocardial infarction; Translations: [Acute myocardial infarction, unspecified] Onset: 07-19-2023 07-19-2023 Chronic Asthma (20 sources) Uncomplicated severe persistent asthma; Translations: [Severe persistent asthma, uncomplicated] Onset: 04-09-2024 Resolved: 12-22-2024 04-09-2024 Chronic Cardiac dysrhythmias (20 sources) Paroxysmal atrial fibrillation; Translations: [Atrial fibrillation] Onset: 06-13-2022 Resolved: 07-19-2023 04-13-2023 Chronic Cardiac dysrhythmias (1 source) Cardiac dysrhythmias Onset: 08-23-2017 Chronic obstructive pulmonary disease and bronchiectasis (20 sources) Chronic obstructive pulmonary disease with (acute) exacerbation; Translations: [Chronic obstructive pulmonary disease, unspecified] Onset: 05-30-2022 Chronic Congestive heart failure; nonhypertensive (20 sources) Chronic diastolic heart failure; Translations: [Chronic diastolic (congestive) heart failure] Onset: 01-21-2024 02-06-2024 Chronic Coronary atherosclerosis and other heart disease (20 sources) Disorder of coronary artery; Translations: [Coronary atherosclerosis of unspecified type of vessel, havasupai or graft] Onset: 03-20-2014 Resolved: 07-19-2023 04-13-2023 Chronic Coronary atherosclerosis and other heart disease (3 sources) Presence of coronary angioplasty implant and graft; Translations: [Coronary angioplasty status] Onset: 08-29-2022 Episodic Diabetes mellitus without complication (1 source) Type 2 diabetes mellitus without complications; Translations: [TYPE 2 DM WITHOUT COMPLICATIONS] Onset: 12-14-2021 Chronic Disorders of lipid metabolism (20 sources) Hyperlipidemia; Translations: [Other and unspecified hyperlipidemia] Onset: 03-20-2014 Resolved: 12-24-2023 Chronic Essential hypertension (20 sources) Hypertensive disorder; Translations: [Unspecified essential hypertension] Onset: 08-29-2022 04-13-2023 Chronic Essential hypertension (1 source) Essential hypertension Onset: 08-23-2017 Hyperplasia of prostate (12 sources) Benign prostatic hyperplasia; Translations: [Benign prostatic hyperplasia without lower urinary tract symptoms] Onset: 06-19-2024 06-19-2024 Chronic Immunizations and screening for infectious disease (1 source) Encounter for screening for other infectious and parasitic diseases; Translations: [ENC SCREENING OTH INF PARASITIC DZ] Onset: 10-28-2022 Episodic Nonspecific chest pain (6 sources) Chest pain, unspecified; Translations: [Atypical chest pain] Onset: 05-20-2022 Episodic Nutritional deficiencies (10 sources) Vitamin D deficiency; Translations: [Vitamin D deficiency, unspecified] Onset: 09-18-2024 09-18-2024 Chronic Other aftercare (1 source) jail (current) use of aspirin; Translations: [RESIDENTIAL CURRENT USE OF ASPIRIN] Onset: 08-29-2022 Episodic Other aftercare (1 source) Other termite technician (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) drug therapy; Translations: [OTH RESIDENTIAL CURRENT DRUG THERAPY] Onset: 08-29-2022 Episodic Other connective tissue disease (1 source) Pain in lower limb Onset: 01-24-2025 Episodic Other liver diseases (1 source) Fatty (change of) liver, not elsewhere classified; Translations: [FATTY CHANGE LIVER NEC] Onset: 06-13-2022 Chronic Other liver diseases (20 sources) Steatosis of liver; Translations: [Fatty (change of) liver, not elsewhere classified] Onset: 09-21-2022 06-06-2023 Chronic Other lower respiratory disease (5 sources) Shortness of breath; Translations: [SHORTNESS OF BREATH] Onset: 05-30-2022 Episodic Other nutritional; endocrine; and metabolic disorders (20 sources) Body mass index 40+ - severely obese; Translations: [Morbid obesity] Onset: 04-12-2023 Resolved: 05-06-2024 04-13-2023 Chronic Other nutritional; endocrine; and metabolic [...] Chronic Other nutritional; endocrine; and metabolic disorders (20 sources) Morbid obesity; Translations: [Morbid (severe) obesity due to excess calories] Onset: 03-20-2014 Resolved: 05-06-2024 06-06-2023 Chronic Other nutritional; endocrine; and metabolic disorders (17 sources) Severe obesity; Translations: [Class 3 severe obesity due to excess calories with serious comorbidity and body mass index (BMI) of 50.0 to 59.9 in adult] Onset: 05-06-2024 05-06-2024 Chronic Other upper respiratory disease (17 sources) Allergic disposition; Translations: [Other allergic rhinitis] Onset: 04-09-2024 04-09-2024 Chronic Residual codes; unclassified (16 sources) Sleep apnea; Translations: [Unspecified sleep apnea] Onset: 04-12-2023 04-12-2023 Chronic Residual codes; unclassified (1 source) Sleep apnea, unspecified; Translations: [SLEEP APNEA UNSPECIFIED] Onset: 08-29-2022 Chronic Residual codes; unclassified (20 sources) Obstructive sleep apnea syndrome; Translations: [Obstructive sleep apnea (adult) (pediatric)] Onset: 09-21-2022 04-13-2023 Chronic Residual codes; unclassified (5 sources) Obstructive sleep apnea (adult) (pediatric); Translations: [Obstructive sleep apnea (adult) (pediatric)] Onset: 09-21-2022 Chronic Residual codes; unclassified (12 sources) Dependence on enabling machine or device; Translations: [Dependence on other enabling machines and devices] Onset: 06-19-2024 06-19-2024 Chronic Residual codes; unclassified (1 source) Acquired absence of other specified parts of digestive tract; Translations: [ACQ ABSENCE OTH PART DIGESTV TRACT] Onset: 08-29-2022 Episodic Sprains and strains (6 sources) Strain of left Achilles tendon, initial encounter; Translations: [Strain of muscle, fascia and tendon at neck level, initial encounter] Onset: 12-14-2021 Episodic Thyroid disorders (20 sources) Hypothyroidism, unspecified; Translations: [Thyroid nodule] Onset: 08-29-2022 07-19-2023 Chronic Unclassified (1 source) Pure hypercholesterolemia, unspecified / E78.00(ICD-9) Onset: 08-23-2017 Unclassified (1 source) Athscl heart disease of havasupai coronary artery w/o ang pctrs / I25.10(ICD-9) [...] PAIN, UNSPECIFIED] Onset: 12-14-2021 Unclassified (1 source) Patient's noncompliance with other medical treatment and regimen due to unspecified reason; Translations: [Patient's noncompliance with other medical treatment and regimen due to unspecified reason] Onset: 04-12-2023 Unclassified (1 source) Pain in rt leg Onset: 01-24-2025 Viral infection (1 source) COVID-19; Translations: [COVID-19] Onset: 02-06-2022 Past or Other Problems Problem Classification Problem Date Documented Da te Episodic/Chronic Abdominal pain (1 source) Unspecified abdominal pain; Translations: [UNSPECIFIED ABDOMINAL PAIN] Onset: 05-30-2022 Episodic Diabetes mellitus without complication (20 sources) Prediabetes; Translations: [Prediabetes] Onset: 06-13-2022 07-19-2023 Episodic E Codes: Fall (1 source) Fall [...] Onset: 12-14-2021 Episodic Fluid and electrolyte disorders (20 sources) Hypokalemia; Translations: [Hypokalemia] Onset: 05-29-2022 07-14-2023 Episodic Headache; including migraine (20 sources) Headache disorder; Translations: [Other headache syndrome] Onset: 02-06-2024 02-06-2024 Episodic Mood disorders (11 sources) Mood disorders Onset: 06-19-2024 06-19-2024 Nutritional deficiencies (14 sources) Vitamin deficiency; Translations: [Vitamin deficiency, unspecified] Onset: 05-29-2024 Resolved: 09-18-2024 05-29-2024 Episodic Other bone disease and musculoskeletal deformities (20 sources) Chondromalacia; Translations: [Chondromalacia, unspecified site] Onset: 08-16-2023 08-16-2023 Episodic Other connective tissue disease (3 sources) Pain in right lower leg; Translations: [PAIN IN RIGHT LOWER LEG] Onset: 01-08-2022 Episodic Other diseases of veins and lymphatics (20 sources) Venous insufficiency of leg; Translations: [Venous insufficiency (chronic) (peripheral)] Onset: 07-19-2023 07-19-2023 Episodic Other liver diseases (1 source) Abnormal levels of other serum enzymes; Translations: [ABNORMAL LEVELS OTHER SERUM ENZYMES] Onset: 05-29-2022 Episodic Other lower respiratory disease (1 source) Other nonspecific abnormal finding of lung field; Translations: [OTH NONSPECIFIC ABN FIND LNG FIELD] Onset: 06-13-2022 Episodic Other lower respiratory disease (3 sources) Pleurodynia; Translations: [PLEURODYNIA] Onset: 11-06-2021 Episodic Other lower respiratory disease (2 sources) Solitary pulmonary nodule; Translations: [SOLITARY PULMONARY NODULE] Onset: 11-08-2021 Episodic Other lower respiratory disease (20 sources) Hypoxia; Translations: [Hypoxemia] Onset: 06-28-2023 07-19-2023 Episodic Other lower respiratory disease (20 sources) Nodule of lung; Translations: [Solitary pulmonary nodule] Onset: 09-21-2022 06-06-2023 Episodic Other lower respiratory disease (6 sources) Cough; Translations: [Acute cough] Onset: 06-12-2023 06-12-2023 Episodic Other lower respiratory disease (17 sources) Cough; Translations: [Acute cough] Onset: 06-12-2023 06-12-2023 Episodic Other lower respiratory disease (20 sources) Radiologic infiltrate of lung ; Translations: [Other nonspecific abnormal finding of lung field] Onset: 09-21-2022 Resolved: 05-03-2023 05-03-2023 Episodic Other nutritional; endocrine; and metabolic disorders (14 sources) Obesity caused by energy imbalance; Translations: [Morbid (severe) obesity due to excess calories] Onset: 06-19-2024 Resolved: 06-19-2024 06-19-2024 Chronic Other screening for suspected conditions (not mental disorders or infectious disease) (20 sources) Encounter for screening for malignant neoplasm of prostate; Translations: [Patient encounter status] Onset: 01-17-2022 07-19-2023 Episodic Other upper respiratory infections (20 sources) Acute upper respiratory infection, unspecified; Translations: [Viral upper respiratory tract infection] Onset: 05-30-2022 Resolved: 09-18-2024 04-09-2024 Episodic Phlebitis; thrombophlebitis and thromboembolism (20 sources) Acute embolism and thrombosis of unspecified deep veins of lower extremity, bilateral; Translations: [Thrombophlebitis of superficial veins of lower extremity] Onset: 01-09-2022 08-16-2023 Episodic Pneumonia (except that caused by tuberculosis or sexually transmitted disease) (20 sources) Bronchopneumonia, unspecified organism; Translations: [Infective pneumonia] Onset: 08-29-2022 Resolved: 07-19-2023 07-19-2023 Episodic Residual codes; unclassified (20 sources) Noncompliance with treatment; Translations: [Personal history of noncompliance with medical treatment, presenting hazards to health] Onset: 04-12-2023 04-12-2023 Episodic Residual codes; unclassified (2 sources) Localized edema; Translations: [LOCALIZED EDEMA] Onset: 01-09-2022 Episodic Residual codes; unclassified (20 sources) History of surgical procedure on vein; Translations: [Other specified postprocedural states] Onset: 04-13-2023 04-13-2023 Episodic Residual codes; unclassified (20 sources) Bilateral lower limb edema; Translations: [Localized edema] Onset: 06-06-2023 07-19-2023 Episodic Respiratory failure; insufficiency; arrest (adult) (1 source) Acute respiratory failure with hypoxia; Translations: [ACUTE RESPIRATORY FAIL W/HYPOXIA] Onset: 06-13-2022 Episodic Screening and history of mental health and substance abuse codes (20 sources) Ex-smoker; Translations: [Personal history of tobacco use] Onset: 06-13-2022 04-13-2023 Episodic Comment on above: Quit 07/26/2012; Skin and subcutaneous tissue infections (20 sources) Cellulitis of lower leg; Translations: [Cellulitis of left lower limb] Onset: 06-06-2023 06-06-2023 Episodic Spondylosis; intervertebral disc disorders; other back [...] Translations: [LOW BACK PAIN, UNSPECIFIED] Onset: 12-10-2021 Unclassified (1 source) Onset: 10-15-2024 10-15-2024 Unclassified (1 source) Patient's noncompliance with other medical treatment and regimen due to unspecified reason; Translations: [Patient's noncompliance with other medical treatment and regimen due to unspecified reason] Onset: 10-15-2024 Results Test Name Value Interpretation Reference Range Facility B-TYPE NATRIURETIC PEPTIDEon 01-25-2025 Natriuretic peptide B (Bld) [Mass/Vol] 50 pg/mL Normal <=100 [facility] Comment on above: Performed By: #### C BCA, BMP #### [facility] ([id number]) [address], [address] [place] [address] BASIC METABOLIC PANELon 08- Anion gap [Moles/Vol] 9 mmol/L Normal 5-15 [facility] Comment on above: Performed By: #### C BCA, BMP #### [facility] ([id number]) [address] [facility] [place] [address] Calcium [Mass/Vol] 9.3 mg/dL Normal 8.5-10.5 [facility] Comment on above: Performed By: #### C BCA, BMP #### [facility] ([id number]) [address], [facility] [address] [place] [address] Chloride [Moles/Vol] 99 mmol/L Normal 98-109 [facility] Comment on above: Performed By: #### C BCA, BMP #### [facility] ([id number]) [address], [address] [place] [address] CO2 [Moles/Vol] 29 mmol/L Normal 22-32 [facility] Comment on above: Performed By: #### C BCA, BMP #### [facility] ([id number]) [address] [address] [place] [address] Creatinine [Mass/Vol] 1.31 mg/dL High 0.70-1.20 [facility] Comment on above: Result Comment: METH OD TRACEABLE TO IDMS STANDARD Performed By: #### C BCA, BMP #### [facility] ([id number]) [address] [address] [place] [address] GFR/1.73 sq M.predicted among non-blacks MDRD (S/P/Bld) [Vol rate/Area] 62 mL/min/{1.73_m2} Normal >=60 [facility] Comment on above: Result Comment: eGFR not reported due to non-numeric value for Creatinine. Reported eGFR is based on the CKD-EPI 2020 equation that does not use a race coefficient. Performed By: #### C BCA, BMP #### [facility] ([id number]) [address], [address] [place] [address] Glucose [Mass/Vol] 156 mg/dL High 65-99 [facility] Comment on above: Performed By: #### C BCA, BMP #### [facility] ([id number]) [address], [address] [place] [address] Potassium [Moles/Vol] 3.9 mmol/L Normal 3.5-5.0 [facility] Comment on above: Performed By: #### C LATIA, BMP #### [facility] ([id number]) [address], [address] [place] [address] Sodium [Moles/Vol] 137 mmol/L Normal 134-146 [facility] Comment on above: Performed By: #### C LATIA, BMP #### [facility] ([id number]) [address], [address] [place] [address] Urea nitrogen [Mass/Vol] 26 mg/dL Normal 5-27 [facility] Comment on above: Performed By: #### C BCA, BMP #### [facility] ([id number]) [address], [address] [place] [address] CBC WITH AUTO DIFFERENTIALon 01-25-2025 BASOPHILS ABSOLUTE COUNT (10*3/UL) BY AUTOMATED COUNT 0.0 10*3/uL Normal 0.0-0.2 [facility] Comment on above: Performed By: #### C BCA, BMP #### [facility] ([id number]) [address], [address] [place] [address] BASOPHILS RELATIVE PERCENT BY AUTOMATED COUNT 0.4 % Normal [facility] Comment on above: Performed By: #### C BCA, BMP #### [facility] ([id number]) [address], [address] [place] [address] CELLAVISION DIFFERENTIAL TYPE AUTOMATED DIFFERENTIAL Normal [facility] Comment on above: Performed By: #### C BCA, BMP #### [facility] ([id number]) [address] [address] Eosinophils (Bld) [#/Vol] 0.1 10*3/uL Normal 0.0-0.4 [facility] Comment on above: Performed By: #### C BCA, BMP #### [facility] ([id number]) [address] [address] EOSINOPHILS RELATIVE PERCENT BY AUTOMATED COUNT 1.7 % Normal [facility] Comment on above: Performed By: #### C LATIA, BMP #### [facility] ([id number]) [address] [address] [place] [address] Erythrocyte distribution width (RBC) [Ratio] 13.3 % Normal 11.5-15 [facility] Comment on above: Performed By: #### C LATIA, BMP #### [facility] ([id number]) [address] [address] Hematocrit (Bld) [Volume fraction] 47.0 % Normal 39-50 [facility] Comment on above: Performed By: #### C LATIA, BMP #### [facility] ([id number]) [address] [address] [place] [address] Hemoglobin (Bld) [Mass/Vol] 16.0 g/dL Normal 13-17 [facility] Comment on above: Performed By: #### C BCA, BMP #### [facility] ([id number]) [address] [address] LYMPHOCYTES ABSOLUTE COUNT (10*3/UL) BY AUTOMATED COUNT 1.3 10*3/uL Normal 1.0-3.5 [facility] Comment on above: Performed By: #### C BCA, BMP #### [facility] ([id number]) [address], [address] [place] [address] LYMPHOCYTES RELATIVE PERCENT BY AUTOMATED COUNT 15.3 % Normal [facility] Comment on above: Performed By: #### Alhaji JEFFERY, BMP #### [facility] ([id number]) [address], [address] [place] [address] MCH (RBC) [Entitic mass] 31.6 pg Normal 27-34 [facility] Comment on above: Performed By: #### C LATIA, BMP #### [facility] ([id number]) [address], [address] [place] [address] MCHC (RBC) [Mass/Vol] 34.1 g/dL Normal 32-36 [facility] Comment on above: Performed By: #### C LATIA, BMP #### [facility] ([id number]) [address], [address] [place] [address] MCV (RBC) [Entitic vol] 93 fL Normal 80-100 [facility] Comment on above: Performed By: #### Alhaji JEFFERY, BMP #### [facility] ([id number]) [address] [place] [address] MONOCYTES ABSOLUTE COUNT (10*3/UL) BY AUTOMATED COUNT 0.8 10*3/uL Normal 0.0-0.9 [facility] Comment on above: Performed By: #### Alhaji JFEFERY, BMP #### [facility] ([id number]) [address], [address] [place] [address] MONOCYTES RELATIVE PERCENT BY AUTOMATED COUNT 9.7 % Normal [facility] Comment on above: Performed By: #### C LATIA, BMP #### [facility] ([id number]) [address] [address] [place] [address] NEUTROPHILS ABSOLUTE COUNT BY AUTOMATED COUNT 6.3 10*3/uL Normal 1.5-6.6 [facility] Comment on above: Performed By: #### C LATIA, BMP #### [facility] ([id number]) [address] [place] [address] NEUTROPHILS RELATIVE PERCENT BY AUTOMATED COUNT 72.9 % Normal [facility] Comment on above: Performed By: #### Alhaji JEFFERY, BMP #### [facility] ([id number]) [address] [place] [address] Platelet mean volume (Bld) [Entitic vol] 8.4 fL Normal 7-12 [facility] Comment on above: Performed By: #### C LATIA, BMP #### [facility] ([id number]) [address], [address] [place] [address] Platelets (Bld) [#/Vol] 298 10*3/uL Normal 150-450 [facility] Comment on above: Performed By: #### Alhaji JEFFERY, BMP #### [facility] ([id number]) [address], [address] [place] [address] RBC COUNT 5.07 X10E12/L Normal 4.1-5.7 [facility] Comment on above: Performed By: #### Alhaji JEFFERY, BMP #### [facility] ([id number]) [address], [address] [place] [address] WBC (Bld) [#/Vol] 8.7 10*3/uL Normal 4-11 [facility] Comment on above: Performed By: #### Alhaji JEFFERY, BMP #### [facility] ([id number]) [address] [place] [address] BASIC METABOLIC PANELon 12-16 Anion gap [Moles/Vol] 11 mmol/L Normal 5-15 [facility] Comment on above: Performed By: #### B MP #### [facility] ([facility]) [address] [place] [address] VIR Calcium [Mass/Vol] 9.3 mg/dL Normal 8.5-10.5 [facility] Comment on above: Performed By: #### B MP #### [facility] ([facility]) [address] [place] [address] VIR Chloride [Moles/Vol] 97 mmol/L Low 98-109 [facility] Comment on above: Performed By: #### B MP #### [facility] ([facility]) [address] [place] [address] VIR CO2 [Moles/Vol] 27 mmol/L Normal 22-32 [facility] Comment on above: Performed By: #### B MP #### [facility] ([facility]) [address] [place] [address] VIR Creatinine [Mass/Vol] 1.25 mg/dL Normal 0.60-1.30 [facility] Comment on above: Result Comment: METH OD TRACEABLE TO IDMS STANDARD Performed By: #### B MP #### [facility] ([facility]) [address] [place] [address] VIR GFR/1.73 sq M.predicted among non-blacks MDRD (S/P/Bld) [Vol rate/Area] 66 mL/min/{1.73_m2} Normal >=60 [facility] Comment on above: Result Comment: Repo rted eGFR is based on the CKD-EPI 2020 equation that does not use a race coefficient. Performed By: #### B MP #### [facility] ([facility]) [address] [place] [address] VIR Glucose [Mass/Vol] 112 mg/dL High 65-99 [facility] Comment on above: Performed By: #### B MP #### [facility] ([facility]) [address] [place] [address] VIR Potassium [Moles/Vol] 4.3 mmol/L Normal 3.5-5.0 [facility] Comment on above: Performed By: #### B MP #### [facility] ([facility]) [address] [place] [address] VIR Sodium [Moles/Vol] 135 mmol/L Normal 134-146 [facility] Comment on above: Performed By: #### B MP #### [facility] ([facility]) [address] [place] [address] VIR Urea nitrogen [Mass/Vol] 20 mg/dL Normal 5-27 [facility] Comment on above: Performed By: #### B MP #### [facility] ([facility]) [address] [place] [address] VIR CBC W Auto Differential pane l (Bld)on 01-02-2025 ABSOLUTE BASOPHIL 0.1 10*3/uL 0.0 - 0.2 10*3/uL [facility] Basophils/100 WBC (Bld) 1 % [facility] DIFFERENTIAL TYPE AUTOMATED DIFFERENTIAL [facility] Comment on above: PERFORMED AT [facility] [address],[place] [address] Eosinophils (Bld) [#/Vol] 0.1 10*3/uL 0.0 - 0.4 10*3/uL [facility] Eosinophils/100 WBC (Bld) 1.5 % [facility] Erythrocyte distribution width (RBC) [Ratio] 13.6 % 11.5 - 15 % [facility] Hematocrit (Bld) [Volume fraction] 48.6 % 39 - 50 % [facility] Hemoglobin (Bld) [Mass/Vol] 16.1 g/dL 13 - 17 g/dL [facility] Interpretation and review of laboratory results Abnormal [facility] Lymphocytes (Bld) [#/Vol] 1.4 10*3/uL 1.0 - 3.5 10*3/uL [facility] Lymphocytes/100 WBC (Bld) 14.7 % [facility] MCH (RBC) [Entitic mass] 31.5 pg 27 - [address] [facility] MCHC (RBC) [Mass/Vol] 33.2 g/dL 32 - 36 g/dL [facility] MCV (RBC) [Entitic vol] 95 fL 80 - [address] [facility] Monocytes (Bld) [#/Vol] 0.7 10*3/uL 0.0 - 0.9 10*3/uL [facility] Monocytes/100 WBC (Bld) 7.6 % [facility] Neutrophils (Bld) [#/Vol] 7 10*3/uL High 1.5 - 6.6 10*3/uL [facility] Neutrophils/100 WBC (Bld) 75.2 % [facility] Platelet mean volume (Bld) [Entitic vol] 9 fL 7 - [address] [facility] Platelets (Bld) [#/Vol] 297 10*3/uL [facility] RBC (Bld) [#/Vol] 5.11 10*6/uL [facility] WBC corrected for nucl RBC Auto (Bld) [#/Vol] 9.4 [facility] CBC WITH AUTO DIFFERENTIALon 01-02-2025 BASOPHILS ABSOLUTE COUNT (10*3/UL) BY AUTOMATED COUNT 0.1 10*3/uL Normal 0.0-0.2 [facility] [facility] Comment on above: Performed By: #### C BCA #### [facility] ([facility]) [address] [place] [address] VIR BASOPHILS RELATIVE PERCENT BY AUTOMATED COUNT 1.0 % Normal [facility] Comment on above: Performed By: #### C BCA #### [facility] ([facility]) [address] [place] [address] VIR CELLAVISION DIFFERENTIAL TYPE AUTOMATED DIFFERENTIAL Normal [facility] Comment on above: Performed By: #### C BCA #### [facility] ([facility]) [address] [place] [address] VIR Eosinophils (Bld) [#/Vol] 0.1 10*3/uL Normal 0.0-0.4 [facility] Comment on above: Performed By: #### C BCA #### [facility] ([facility]) [address] [place] [address] VIR EOSINOPHILS RELATIVE PERCENT BY AUTOMATED COUNT 1.5 % Normal [facility] Comment on above: Performed By: #### C BCA #### [facility] ([facility]) [address] [place] [address] VIR Erythrocyte distribution width (RBC) [Ratio] 13.6 % Normal 11.5-15 [facility] Comment on above: Performed By: #### C BCA #### [facility] ([facility]) [address] [place] [address] VIR Hematocrit (Bld) [Volume fraction] 48.6 % Normal 39-50 [facility] Comment on above: Performed By: #### C BCA #### [facility] ([facility]) [address] [facility] [place] [address] VIR Hemoglobin (Bld) [Mass/Vol] 16.1 g/dL Normal 13-17 [facility] Comment on above: Performed By: #### C BCA #### [facility] ([facility]) [address] [facility] [place] [address] VIR LYMPHOCYTES ABSOLUTE COUNT (10*3/UL) BY AUTOMATED COUNT 1.4 10*3/uL Normal 1.0-3.5 [facility] Comment on above: Performed By: #### C BCA #### [facility] ([facility]) [address] [facility] [place] [address] VIR LYMPHOCYTES RELATIVE PERCENT BY AUTOMATED COUNT 14.7 % Normal [facility] Comment on above: Performed By: #### C BCA #### [facility] ([facility]) [address] [place] [address] VIR MCH (RBC) [Entitic mass] 31.5 pg Normal 27-34 [facility] Comment on above: Performed By: #### C BCA #### [facility] ([facility]) [address] [place] [address] VIR MCHC (RBC) [Mass/Vol] 33.2 g/dL Normal 32-36 [facility] Comment on above: Performed By: #### C BCA #### [facility] ([facility]) [address] [place] [address] VIR MCV (RBC) [Entitic vol] 95 fL Normal 80-100 [facility] Comment on above: Performed By: #### C BCA #### [facility] ([facility]) [address] [place] [address] VIR MONOCYTES ABSOLUTE COUNT (10*3/UL) BY AUTOMATED COUNT 0.7 10*3/uL Normal 0.0-0.9 [facility] Comment on above: Performed By: #### C BCA #### [facility] ([facility]) [address] [place] [address] VIR MONOCYTES RELATIVE PERCENT BY AUTOMATED COUNT 7.6 % Normal [facility] Comment on above: Performed By: #### C BCA #### [facility] ([facility]) [address] [place] [address] VIR NEUTROPHILS ABSOLUTE COUNT BY AUTOMATED COUNT 7.0 10*3/uL High 1.5-6.6 [facility] Comment on above: Performed By: #### C BCA #### [facility] ([facility]) [address] [place] [address] VIR NEUTROPHILS RELATIVE PERCENT BY AUTOMATED COUNT 75.2 % Normal [facility] Comment on above: Performed By: #### C BCA #### [facility] ([facility]) [address] [place] [address] VIR Platelet mean volume (Bld) [Entitic vol] 9.0 fL Normal 7-12 [facility] Comment on above: Performed By: #### C BCA #### [facility] ([facility]) [address] [place] [address] VIR Platelets (Bld) [#/Vol] 297 10*3/uL Normal 150-450 [facility] Comment on above: Performed By: #### C BCA #### [facility] ([facility]) [address] [place] [address] VIR RBC COUNT 5.11 X10E12/L Normal 4.1-5.7 [facility] Comment on above: Performed By: #### C BCA #### [facility] ([facility]) [address] [place] [address] VIR WBC (Bld) [#/Vol] 9.4 10*3/uL Normal 4-11 [facility] Comment on above: Performed By: #### C BCA #### [facility] ([facility]) [address] [place] [address] VIR COMPREHENSIVE METABOLIC PANE Bharath 09-17-2024 Albumin [Mass/Vol] 4.2 g/dL Normal 3.2-5.3 [facility] Comment on above: Performed By: #### [place], [address]-5, 81124-9, FTPSA, THYR, 40774-2 #### [facility] ([id number]) [address] [place] [address] ALP [Catalytic activity/Vol] 111 U/L Normal 39-130 [facility] Comment on above: Performed By: #### [place], 09376-5, 91576-0, FTPSA, THYR, 11625-4 #### [facility] ([id number]) [address] [place] [address] ALT [Catalytic activity/Vol] 20 U/L Normal 0-40 [facility] Comment on above: Performed By: #### [place] MP, 54860-8, 34257-0, FTPSA, THYR, 14857-4 #### [facility] ([id number]) [address] [place] [address] Anion gap [Moles/Vol] 11 mmol/L Normal 5-15 [facility] Comment on above: Performed By: #### C MP, 18850-0, 80180-4, FTPSA, THYR, 04454-1 #### [facility] ([id number]) [address], [address] [place] [address] AST [Catalytic activity/Vol] 16 U/L Normal 0-41 [facility] Comment on above: Performed By: #### C MILANA, 30991-5, , FTPSA, THYR, 07719-1 #### [facility] ([id number]) [address] [place] [address] Bilirubin [Mass/Vol] 0.8 mg/dL Normal 0.3-1.2 [facility] Comment on above: Performed By: #### C MILANA, 23126-0, , FTPSA, THYR, 37775-8 #### [facility] ([id number]) [address] [place] [address] Calcium [Mass/Vol] 9.3 mg/dL Normal 8.5-10.5 [facility] Comment on above: Performed By: #### Alhaji CORTÉS, 86585-8, , FTPSA, THYR, 84492-3 #### [facility] ([id number]) [address], [address] [place] [address] Chloride [Moles/Vol] 98 mmol/L Normal 98-109 [facility] Comment on above: Performed By: #### C MILANA, 19031-3, , FTPSA, THYR, 23595-1 #### [facility] ([id number]) [address], [address] [place] [address] CO2 [Moles/Vol] 28 mmol/L Normal 22-32 [facility] Comment on above: Performed By: #### C MILANA, 91815-0, , FTPSA, THYR, 08988-0 #### [facility] ([id number]) [address], [address] [place] [address] Creatinine [Mass/Vol] 1.26 mg/dL Normal 0.60-1.30 [facility] Comment on above: Result Comment: METH OD TRACEABLE TO IDMS STANDARD Performed By: #### C MILANA, 39753-1, , FTPSA, THYR, 68732-5 #### [facility] ([id number]) [address] [address] [place] [address] GFR/1.73 sq M.predicted among non-blacks MDRD (S/P/Bld) [Vol rate/Area] 65 mL/min/{1.73_m2} Normal >59 [facility] Comment on above: Result Comment: Reported eGFR is based on the CKD-EPI 2020 equation that does not use a race coefficient. Performed By: #### Alhaji CORTÉS, 37279-4, , FTPSA, THYR, 04658-0 #### [facility] ([id number]) [address] [address] [place] [address] Glucose [Mass/Vol] 105 mg/dL High 65-99 [facility] Comment on above: Performed By: #### Alhaji CORTÉS, 61298-7, , FTPSA, THYR, 42047-4 #### [facility] ([id number]) [address] [place] [address] Potassium [Moles/Vol] 4.2 mmol/L Normal 3.5-5.0 [facility] Comment on above: Performed By: #### Alhaji CORTÉS, 85409-3, , FTPSA, THYR, 67997-2 #### [facility] ([id number]) [address] [place] [address] Protein [Mass/Vol] 7.2 g/dL Normal 6.0-8.0 [facility] Comment on above: Performed By: #### Alhaji CORTÉS, 86145-1, , FTPSA, THYR, 53624-5 #### [facility] ([id number]) [address] [place] [address] Sodium [Moles/Vol] 137 mmol/L Normal 134-146 [facility] Comment on above: Performed By: #### C MILANA, 49867-4, 53781-1, FTPSA, THYR, 75329-6 #### [facility] ([id number]) [address] [place] [address] Urea nitrogen [Mass/Vol] 20 mg/dL Normal 5-27 [facility] Comment on above: Performed By: #### C MILANA, 51014-8, 80077-3, FTPSA, THYR, 50573-7 #### [facility] ([id number]) [address] [place] [address] FREE AND TOTAL PSAon 025 % FREE PSA 23.0 Normal [facility] Comment on above: Result Comment: Percent Free PSA has been reported to have the greatest clinical utility when total PSA values are between 4.0 and 10.0 ng/mL. For men with a total PSA in this range, Percent Free PSA values of >25% are strongly associated with normal or benign prostate conditions. Percent Free PSA levels of <10% suggest that prostate cancer is more likely than BPH. For values between 10% and 25%, there is overlap of prostate cancer and BPH. Performed By: #### C MILANA, 27921-5, 74031-8, FTPSA, THYR, 00952-5 #### [facility] ([id number]) [address] [place] [address] FREE PSA 0.29 ng/mL Normal [facility] Comment on above: Performed By: #### C MP, 26593-1, 38132-9, FTPSA, THYR, 74512-1 #### [facility] ([id number]) [address], [address] [place] [address] PROSTATIC SPEC ANT 1.26 ng/mL Normal 0.00-4.00 [facility] Comment on above: Result Comment: The method used for this test is Carleen Fabio DXI chemiluminescent immunoassay. Values obtained by different assay methods cannot be used interchangeably. Performed By: #### Alhaji CORTÉS, 94342-3, 51742-8, FTPSA, THYR, 55712-2 #### [facility] ([id number]) [address] [place] [address] Lipid 1996 panelon 5 Cholesterol [Mass/Vol] 124 mg/dL Low 150-200 [facility] Comment on above: Performed By: #### Alhaji CORTÉS, 41649-8, 68537-3, FTPSA, THYR, 62682-5 #### [facility] ([id number]) [address] [place] [address] Cholesterol in HDL [Mass/Vol] 44 mg/dL Normal >39 [facility] Comment on above: Result Comment: HDL <40 mg/dL - High Risk HDL > or = 40mg/dL- Desirable HDL >60 mg/dL - Negative Risk Performed By: ###[place], [address]-2, 17217-0, FTPSA, THYR, 93442-1 #### [facility] ([id number]) [address] [place] [address] Cholesterol in LDL [Mass/Vol] 48 mg/dL Normal <130 [facility] Comment on above: Result Comment: LDL <100 mg/dL - Desirable LDL >160 mg/dL - High Risk Performed By: #### Alhaji CORTÉS, 98011-4, 09229-8, FTPSA, THYR, 75500-5 #### [facility] ([id number]) [address], [address] [place] [address] Cholesterol in VLDL [Mass/Vol] 32 mg/dL High 0-30 [facility] Comment on above: Performed By: #### C MP, 02134-1, 28954-2, FTPSA, THYR, 69408-2 #### [facility] ([id number]) [address], [address] [place] [address] CHOLESTEROL:HDL 2.8 Normal 1.0-5.0 [facility] Comment on above: Performed By: #### C MILANA, 73872-1, 32553-0, FTPSA, THYR, 23947-4 #### [facility] ([id number]) [address] [place] [address] Triglyceride [Mass/Vol] 162 mg/dL High 27-150 [facility] Comment on above: Performed By: #### C MILANA, 58703-1, 68638-4, FTPSA, THYR, 00113-8 #### [facility] ([id number]) [address] [place] [address] MAGNESIUMon 09-17-2024 Magnesium [Mass/Vol] 2.1 mg/dL Normal 1.8-2.6 [facility] Comment on above: Performed By: #### C MP, 79415-6, 83403-6, FTPSA, THYR, 45104-8 #### [facility] ([id number]) [address] [place] [address] THYROID PROFILEon 09-17-2024 Free T4 [Mass/Vol] 1.13 ng/dL Normal 0.61-1.60 [facility] Comment on above: Performed By: #### C MP, 92411-5, 13811-1, FTPSA, THYR, 13384-1 #### [facility] ([id number]) [address] [place] [address] TSH 1.01 uIU/mL Normal 0.49-4.67 [facility] Comment on above: Performed By: #### C MILANA, 25325-2, , FTPSA, THYR, 49485-1 #### [facility] ([id number]) [address] [place] [address] Vitamin D+Metabolites [Mass/ Vol]on 09-17-2024 VITAMIN D 25 HYD TOT 24.0 ng/mL Low 30-100 [facility] Comment on above: Result Comment: Vitamin D status 25 [place] Vitamin D Deficiency <20 ng/mL Insufficiency 20-29 ng/mL Sufficiency 30-100 ng/mL Toxicity >100 ng/mL NOTE: A pediatric reference range has not been established by the bale opener of this kit. The [place] [employer] recommends a Vitamin D level of = or >20ng/mL in infants and children. Performed By: #### Alhaji CORTÉS, 39569-8, , FTPSA, THYR, 11109-4 #### [facility] ([id number]) [address] [place] [address] HbA1c (Bld) [Mass fraction]o n 06-19-2024 Interpretation and review of laboratory results Normal [facility] - Hematology and Cell countson 06-19-2024 HbA1c (Bld) [Mass fraction] 5.90 % [facility] BASIC METABOLIC PANLon 05-28 Anion gap [Moles/Vol] 7 mmol/L Normal 5-15 [facility] Comment on above: Performed By: #### C BCA, BMP #### [facility] ([id number]) [address] [facility] [place] [address] Calcium [Mass/Vol] 9.1 mg/dL Normal 8.5-10.5 [facility] Comment on above: Performed By: #### C BCA, BMP #### [facility] ([id number]) [address] [place] [address] Chloride [Moles/Vol] 100 mmol/L Normal 98-109 [facility] Comment on above: Performed By: #### C BCA, BMP #### [facility] ([id number]) [address] [place] [address] CO2 [Moles/Vol] 31 mmol/L Normal 22-32 [facility] Comment on above: Performed By: #### C BCA, BMP #### [facility] ([id number]) [address] [place] [address] Creatinine [Mass/Vol] 1.34 mg/dL High 0.60-1.30 [facility] Comment on above: Result Comment: METH OD TRACEABLE TO IDMS STANDARD Performed By: #### C BCA, BMP #### [facility] ([id number]) [address] [place] [address] GFR/1.73 sq M.predicted among non-blacks MDRD (S/P/Bld) [Vol rate/Area] 61 mL/min/{1.73_m2} Normal >59 [facility] Comment on above: Result Comment: Reported eGFR is based on the CKD-EPI 2020 equation that does not use a race coefficient. Performed By: #### C BCA, BMP #### [facility] ([id number]) [address] [place] [address] Glucose [Mass/Vol] 112 mg/dL High 65-99 [facility] Comment on above: Performed By: #### C BCA, BMP #### [facility] ([id number]) [address] [place] [address] Potassium [Moles/Vol] 4.4 mmol/L Normal 3.5-5.0 [facility] Comment on above: Performed By: #### C BCA, BMP #### [facility] ([id number]) [address] [place] [address] Sodium [Moles/Vol] 138 mmol/L Normal 134-146 [facility] Comment on above: Performed By: #### C BCA, BMP #### [facility] ([id number]) [address] [place] [address] Urea nitrogen [Mass/Vol] 20 mg/dL Normal 5-23 [facility] Comment on above: Performed By: #### C LATIA, BMP #### [facility] ([id number]) [address] [place] [address] CBC AND AUTO DIFFon 05-28-20 24 ABSOLUTE BASOPHIL 0.1 X10E9/L Normal 0.0-0.2 [facility] Comment on above: Performed By: #### C BCA, BMP #### [facility] ([id number]) [address] [place] [address] ABSOLUTE NEUTROPHIL 6.3 X10E9/L Normal 1.5-6.6 [facility] Comment on above: Performed By: #### C BCA, BMP #### [facility] ([id number]) [address] [place] [address] Basophils/100 WBC (Bld) 0.9 % Normal [facility] Comment on above: Performed By: #### C BCA, BMP #### [facility] ([id number]) [address] [address] [address] [place] [address] Eosinophils (Bld) [#/Vol] 0.1 10*3/uL Normal 0.0-0.4 [facility] Comment on above: Performed By: #### C BCA, BMP #### [facility] ([id number]) [address] [place] [address] Eosinophils/100 WBC (Bld) 1.4 % Normal [facility] Comment on above: Performed By: #### Alhaji JEFFERY, BMP #### [facility] ([id number]) [address], [facility] [address] [place] [address] Erythrocyte distribution width (RBC) [Ratio] 13.6 % Normal 11.5-15.0 [facility] Comment on above: Performed By: #### C LATIA, BMP #### [facility] ([id number]) [address], [facility] [address] [place] [address] Hematocrit (Bld) [Volume fraction] 46.4 % Normal 39-49 [facility] Comment on above: Performed By: #### Alhaji JEFFERY, BMP #### [facility] ([id number]) [address] [address] [place] [address] Hemoglobin (Bld) [Mass/Vol] 15.8 g/dL Normal 13.0-17.0 [facility] Comment on above: Performed By: #### Alhaji JEFFERY, BMP #### [facility] ([id number]) [address] [place] [address] Lymphocytes (Bld) [#/Vol] 1.4 10*3/uL Normal 1.0-3.5 [facility] Comment on above: Performed By: #### Alhaji JEFFERY, BMP #### [facility] ([id number]) [address], [facility] [address] [place] [address] Lymphocytes/100 WBC (Bld) 16.4 % Normal [facility] Comment on above: Performed By: #### Alhaji JEFFERY, BMP #### [facility] ([id number]) [address] [place] [address] MCH (RBC) [Entitic mass] 32.2 pg Normal 27-34 [facility] Comment on above: Performed By: #### Alhaji JEFFERY, BMP #### [facility] ([id number]) [address] [place] [address] MCHC (RBC) [Mass/Vol] 34.0 g/dL Normal 32-36 [facility] Comment on above: Performed By: #### C LATIA, BMP #### [facility] ([id number]) [address] [place] [address] MCV (RBC) [Entitic vol] 95 fL Normal 80-100 [facility] Comment on above: Performed By: #### C LATIA, BMP #### [facility] ([id number]) [address] [place] [address] Monocytes (Bld) [#/Vol] 0.8 10*3/uL Normal 0-0.9 [facility] Comment on above: Performed By: #### Alhaji JEFFERY, BMP #### [facility] ([id number]) [address] [place] [address] Monocytes/100 WBC (Bld) 9.5 % Normal [facility] Comment on above: Performed By: #### C LATIA, BMP #### [facility] ([id number]) [address] [place] [address] Neutrophils/100 WBC (Bld) 71.8 % Normal [facility] Comment on above: Performed By: #### Alhaji JEFFERY, BMP #### [facility] ([id number]) [address] [place] [address] Platelet mean volume (Bld) [Entitic vol] 9.1 fL Normal 7-12 [facility] Comment on above: Performed By: #### C LATIA, BMP #### [facility] ([id number]) [address] [place] [address] Platelets (Bld) [#/Vol] 272 10*3/uL Normal 150-450 [facility] Comment on above: Performed By: #### C BCA, BMP #### [facility] ([id number]) [address] [place] [address] RBC COUNT 4.89 X10E12/L Normal 4.10-5.70 [facility] Comment on above: Performed By: #### C BCA, BMP #### [facility] ([id number]) [address] [place] [address] WBC (Bld) [#/Vol] 8.8 10*3/uL Normal 4.0-11.0 [facility] Comment on above: Performed By: #### C BCA, BMP #### [facility] ([id number]) [address] [address] Natriuretic peptide B [Mass/ Vol]on 01-21-2024 Natriuretic peptide B (Bld) [Mass/Vol] 47 pg/mL NINF - 100.0 pg/mL [facility] POCT EKGon 07-26-2023 [facility] Covid-19 PCR (CVDTBH)on 10-16 SARS-CoV-2 (COVID-19) RNA PILI+probe Ql (Unsp spec) Not detected Normal NOT DETECTED [facility] Comment on above: Performed By: #### C VDTBH #### [facility] [address] [place] [address] Dr. Jersey Butcher INFLUENZA A AND B AGon 10-26 INFLUANEGH SEE BELOW Normal [facility] Comment on above: Result Comment: Nega tive for Flu A protein angiten. Infection due to Flu A cannot be ruled out. Flu A angiten in the sample may be below the detection limit of the test. Performed By: #### T SH, BNP, HSTROPN, CMP #### [facility] [address] [place] [address] Dr. Jersey Butcher INFLUBNEG SEE BELOW Normal [facility] Comment on above: Result Comment: Nega tive for Flu B protein antigen. Infection due to Flu B cannot be ruled out. Flu B antigen in the sample may be below the detection limit of the test. Performed By: #### T SH, BNP, HSTROPN, CMP #### [facility] [address] [place] [address] Dr. Jersey Butcher INFLUENZA A AG Negative Normal NEGATIVE SEE COMMENT [facility] Comment on above: Performed By: #### T SH, BNP, HSTROPN, CMP #### [facility] [address] [address] [address] Jersey Butcher INFLUENZA B AG Negative Normal NEGATIVE SEE COMMENT [facility] Comment on above: Performed By: #### T SH, BNP, HSTROPN, CMP #### [facility] [address] [place] [address] Dr. Jersey Butcher SYMPTOMATIC COVID-19 ANTIGEN on 10-26-2022 EU[facility] Statement SEE BELOW Normal [facility] Comment on above: Result Comment: This [...] sooner. Performed By: #### C VDTBH #### [facility] [address] [place] [address] Dr. Jersey Butcher SARS-CoV-2 (COVID-19) RNA PILI+probe Ql (Unsp spec) Negative Normal NEGATIVE [facility] Comment on above: Performed By: #### C VDTBH #### [facility] [address] [place] [address] Dr. Jersey Butcher [facility] CARDIAC STRESS/REST INJE CTIONon 10-02-2022 [facility] CARDIAC STRESS/REST INJECTION Patient Name: ELYSE DUONG STUDY: MYOCARDIAL PERFUSION STRESS TEST WITH LEXISCAN Performing facility: [facility], [address] [place] [address], [address], [place] [address] [facility] Provider: Tequila Jaffe MD, [facility] PCP: Dr. Tristen Terrell Supervising provider: Mary Julien MD, [facility] INDICATION: DOT physical I25.10: CAD S/P percutaneous coronary angioplasty Z98.61 HISTORY: Gender: M; Age: 57 y/o ; Height: 0 cm; Weight: 154.315373 kg. CAD; High Cholesterol; HTN; Previous [place]; Arrhythmias; AFib Quit smoking 10 years ago. Cardiac catheterization 2012. PTCA on RCA. COMPARISON: No comparison. ACCESSION NUMBER(S): [id number]; [id number] ORDERING CLINICIAN: TEQUILA JAFFE TECHNIQUE: TWO DAY [...] available for comparison. Electronically signed by: MADISON BLANCO MD Normal [facility] No Panel Informationon 10-02 Normal -[facility] 305 DO Work Phone: HEMOGLOBINon 09-15-2022 Hemoglobin (Bld) [Mass/Vol] 14.3 g/dL Normal 14.0-18.0 [facility] Comment on above: Performed By: #### T SH, BNP, HSTROPN, CMP #### [facility] [address] [place] [id number] Jersey Butcher Covid-19 PCR ([facility])on 08-16 SARS-CoV-2 (COVID-19) RNA PILI+probe Ql (Unsp spec) Not detected Normal NOT DETECTED [facility] Comment on above: Result Comment: [...] for this test is supported by the [employer] of Health and Human Service's declaration that [...] #### T SH, BNP, HSTROPN, CMP #### [facility] [address] [place] [id number] Jersey Butcher GROUP A STREP CULTUREon 08-16 S. pyogenes Ag Ql (Unsp spec) Culture Observations: NEGATIVE FOR GROUP A STREPTOCOCCUS. Normal [facility] Comment on above: Performed By: #### T SH, BNP, HSTROPN, CMP #### [facility] [address] [place], [place] [address] Dr. Jersey Butcher STREPT SCREENon 08-27-2022 STREP SCREEN A Negative Normal NEGATIVE [facility] Comment on above: Performed By: #### T SH, BNP, HSTROPN, CMP #### [facility] [address] [place], [place] [address] Dr. Jersey Butcher XR CHEST 1 Von 08-27-2022 XR CHEST 1 V EXAM: XR CHEST 1 V HISTORY: SHORTNESS OF BREATH COMPARISON: 05/25/2022 TECHNIQUE: Frontal view of the chest. FINDINGS: No focal consolidations or pleural effusions. Cardiomegaly. Visualized osseous structures are unremarkable. IMPRESSION: No acute disease. Electronically authenticated by: LEO MARSHALL Date: 2022-08-27 14:06 Normal [facility] Office Visit (Cardiology)on 07-19-2022 Follow-up [...] up in [address] Justyn Covington MD. [facility] Patient to STOP Hydrochlorothiazide moving forward. [...] and in the presence of, Dr. Justyn Covington MD The provider reviewed the following test(s) and result(s) with the patient: ECG, laboratory tests and treadmill exercise tolerance test Chief Complaint Patient here for overdue general cardiology follow up. Former patient of Dr. Blanco. History of Present Illness The patient is [...] prepare this document. 1 Amended By: Justyn Covington; Jul 19 2022 11:32 AM ESTActive Problems Problems Former smoker (V15.82) (Z87.891) Quit 07/26/2012 Hyperlipidemia (272.4) (E78.5) Hypertension (401.9) (I10) Morbid obesity with BMI of 50.0-59.9, adult (278.01,V85.43) (E66.01,Z68.43) Normal echocardiogram (V72.85 (more content not included)... Normal [employer] [facility].on 023 Adult depression screening assessment No [facility] [employer] DO Work Phone: Fall risk assessment a) No falls within the last year [facility] [employer] DO Work Phone: Tobacco use status CPHS b) No [facility] [employer] DO Work Phone: CBC W MANUAL DIFFon 1820 22 ATYPICAL LYMPH # 0.14 103/ul Normal [facility] Comment on above: Performed By: #### T SH, BNP, HSTROPN, CMP #### [facility] [address] [place] [address] [address] Jersey Butcher ATYPICAL LYMPH % 1 % Normal [facility] Comment on above: Performed By: #### T SH, BNP, HSTROPN, CMP #### [facility] [address] [place] [address] [address] Jersey Butcher BAND # 0.0 103/ul Normal 0.0-0.3 [facility] Comment on above: Performed By: #### T SH, BNP, HSTROPN, CMP #### [facility] [address] [place] [address] [address] Jersey Butcher BAND % 0 % Normal 0-5 [facility] Comment on above: Performed By: #### T SH, BNP, HSTROPN, CMP #### [facility] [address] [place] [address] Dr. Jersey Butcher BASOM # 0.00 103/ul Normal 0.00-0.10 [facility] Comment on above: Performed By: #### T SH, BNP, HSTROPN, CMP #### [facility] [address] [place] [address] [address] Jersey Butcher BASOM % 0.0 % Critically low 0.2-2.0 [facility] Comment on above: Performed By: #### T SH, BNP, HSTROPN, CMP #### [facility] [address] [place] [address] Dr. Jersey Butcher BLAST # Normal [facility] Comment on above: Performed By: #### T SH, BNP, HSTROPN, CMP #### [facility] [address] [place] [address] [address] Jersey Butcher BLAST % Normal [facility] Comment on above: Performed By: #### T SH, BNP, HSTROPN, CMP #### [facility] [address] [place] [address] [address] Jersey Butcher CORRECTED WBC Normal 4.0-11.0 [facility] Comment on above: Performed By: #### T SH, BNP, HSTROPN, CMP #### [facility] [address] [place] [address] Dr. Jersey Butcher EOS # 0.00 103/ul Normal 0.00-0.70 [facility] Comment on above: Performed By: #### T SH, BNP, HSTROPN, CMP #### [facility] [address] [place] [address] Dr. Jersey Butcher EOS% 0.0 % Critically low 0.9-7.0 [facility] Comment on above: Performed By: #### T SH, BNP, HSTROPN, CMP #### [facility] [address] [place] [address] Dr. Jersey Butcher HCT 41.3 % Critically low 42.0-54.0 [facility] Comment on above: Performed By: #### T SH, BNP, HSTROPN, CMP #### [facility] [address] [place] [address] Dr. Jersey Butcher HGB 14.2 g/dl Normal 14.0-18.0 [facility] Comment on above: Performed By: #### T SH, BNP, HSTROPN, CMP #### [facility] [address] [place] [address] Dr. Jersey Butcher LYMPHM # 0.42 103/ul Critically low 1.20-3.80 [facility] Comment on above: Performed By: #### T SH, BNP, HSTROPN, CMP #### [facility] [address] [place] [address] Dr. Jersey Butcher LYMPHM% 3.0 % Critically low 20.5-60.0 [facility] Comment on above: Performed By: #### T SH, BNP, HSTROPN, CMP #### [facility] [address] [place] [address] Dr. Jersey Butcher MCH 30.9 pg Normal 25.9-34.0 [facility] Comment on above: Performed By: #### T SH, BNP, HSTROPN, CMP #### [facility] [address] [place] [address] Dr. Jersey Butcher MCHC 34.4 g/dl Normal 29.9-35.2 [facility] Comment on above: Performed By: #### T SH, BNP, HSTROPN, CMP #### [facility] [address] [address] [address] Jersey Butcher MCV 89.8 fL Normal 80.0-94.0 [facility] Comment on above: Performed By: #### T SH, BNP, HSTROPN, CMP #### [facility] [address] [place] [address] [address] Jersey Butcher METAMYELOCYTE # Normal [facility] [place] [facility] Comment on above: Performed By: #### T SH, BNP, HSTROPN, CMP #### [facility] [address] [place] [address] [address] Jersey Butcher METAMYELOCYTE % Normal [facility] [place] [facility] Comment on above: Performed By: #### T SH, BNP, HSTROPN, CMP #### [facility] [address] [place] [address] [address] Jersey Butcher MONOM# 0.14 103/ul Critically low 0.30-0.80 [facility] [place] [facility] Comment on above: Performed By: #### T SH, BNP, HSTROPN, CMP #### [facility] [address] [place] [address] [address] Jersey Butcher MONOM% 1.0 % Critically low 1.7-12.0 [facility] Comment on above: Performed By: #### T SH, BNP, HSTROPN, CMP #### [facility] [address] [place] [address] [address] Jersey Butcher MPV 10.4 fL Normal 9.5-13.5 [facility] Comment on above: Performed By: #### T SH, BNP, HSTROPN, CMP #### [facility] [address] [place] [address] [address] Jersey Butcher MYELOCYTE # Normal [facility] Comment on above: Performed By: #### T SH, BNP, HSTROPN, CMP #### [facility] [address] [place] [address] [address] Jersey Butcher MYELOCYTE % Normal [facility] Comment on above: Performed By: #### T SH, BNP, HSTROPN, CMP #### [facility] [address] [place] [address] [address] Jersey Butcher NRBC Normal [facility] Comment on above: Performed By: #### T SH, BNP, HSTROPN, CMP #### [facility] [address] [place] [address] [address] Jersey Butcher PLT 209 103/ul Normal 150-450 [facility] Comment on above: Performed By: #### T SH, BNP, HSTROPN, CMP #### [facility] [address] [place] [address] [address] Jersey Butcher RBC 4.60 106/ul Critically low 4.70-6.10 [facility] [place] [facility] Comment on above: Performed By: #### T SH, BNP, HSTROPN, CMP #### [facility] [address] [place] [address] Dr. Jersey Butcher RDW 11.9 % Normal 11.0-15.0 [facility] Comment on above: Performed By: #### T SH, BNP, HSTROPN, CMP #### [facility] [address] [place] [address] [address] Jersey Butcher SEG # 13.30 103/ul Critically high 1.40-6.50 [facility] Comment on above: Performed By: #### T SH, BNP, HSTROPN, CMP #### [facility] [address] [place] [address] Dr. Jersey Butcher SEG % 95.0 % Critically high 43.0-75.0 [facility] [place] [facility] Comment on above: Performed By: #### T SH, BNP, HSTROPN, CMP #### [facility] [address] [place] [address] [address] Jersey Butcher WBC 14.0 103/ul Critically high 4.0-11.0 [facility] Comment on above: Performed By: #### T SH, BNP, HSTROPN, CMP #### [facility] [address] [place] [address] Dr. Jersey Butcher PROF 14(COMP METB)on 022 Albumin [Mass/Vol] 3.0 g/dL Critically low 3.4-5.0 [facility] Comment on above: Performed By: #### T SH, BNP, HSTROPN, CMP #### [facility] [address] [place] [address] Dr. Jersey Butcher Albumin/Globulin [Mass ratio] 0.8 {ratio} Normal [facility] Comment on above: Performed By: #### T SH, BNP, HSTROPN, CMP #### [facility] [address] [place] [address] Dr. Jersey Butcher ALP [Catalytic activity/Vol] 91 U/L Normal 46-116 [facility] Comment on above: Performed By: #### T SH, BNP, HSTROPN, CMP #### [facility] [address] [place] [address] Dr. Jersey Butcher ALT [Catalytic activity/Vol] 43 U/L Normal 16-63 [facility] Comment on above: Performed By: #### T SH, BNP, HSTROPN, CMP #### [facility] [address] [place] [address] Dr. Jersey Butcher Anion gap [Moles/Vol] 8.1 mmol/L Normal [facility] Comment on above: Performed By: #### T SH, BNP, HSTROPN, CMP #### [facility] [address] [place] [address] Dr. Jersey Butcher AST [Catalytic activity/Vol] 18 U/L Normal 15-37 [facility] Comment on above: Performed By: #### T SH, BNP, HSTROPN, CMP #### [facility] [address] [place] [address] Dr. Jersey Butcher Bilirubin [Mass/Vol] 0.4 mg/dL Normal 0.2-1.0 [facility] Comment on above: Performed By: #### T SH, BNP, HSTROPN, CMP #### [facility] [address] [place] [address] [address] Jersey Butcher Calcium [Mass/Vol] 8.4 mg/dL Critically low 8.5-10.1 [facility] Comment on above: Performed By: #### T SH, BNP, HSTROPN, CMP #### [facility] [address] [place] [address] Dr. Jersey Butcher Chloride [Moles/Vol] 94 mmol/L Critically low 98-107 [facility] Comment on above: Performed By: #### T SH, BNP, HSTROPN, CMP #### [facility] [address] [place] [address] [address] Jersey Butcher CO2 [Moles/Vol] 33.0 mmol/L Critically high 21.0-32.0 [facility] Comment on above: Performed By: #### T SH, BNP, HSTROPN, CMP #### [facility] [address] [place] [address] Dr. Jersey Butcher Creatinine [Mass/Vol] 1.15 mg/dL Normal 0.70-1.30 [facility] Comment on above: Performed By: #### T SH, BNP, HSTROPN, CMP #### [facility] [address] [place] [address] Dr. Jersey Butcher EGFR-AF [place]ER >60 Normal >=60 [facility] Comment on above: Performed By: #### T SH, BNP, HSTROPN, CMP #### [facility] [address] [place] [address] Dr. Jersey Butcher EGFR-NON AF [place]ER >60 Normal >=60 [facility] Comment on above: Performed By: #### T SH, BNP, HSTROPN, CMP #### [facility] [address] [place] [address] Dr. Jersey Butcher Globulin (S) [Mass/Vol] 3.6 g/dL Normal [facility] Comment on above: Performed By: #### T SH, BNP, HSTROPN, CMP #### [facility] [address] [place] [address] Dr. Jersey Butcher Glucose [Mass/Vol] 193 mg/dL Critically high 74-106 T [facility] Comment on above: Performed By: #### T SH, BNP, HSTROPN, CMP #### [facility] [address] [place] [address] Dr. Jersey Butcher Potassium [Moles/Vol] 3.1 mmol/L Critically low 3.5-5.1 [facility] Comment on above: Performed By: #### T SH, BNP, HSTROPN, CMP #### [facility] [address] [place] [address] Dr. Jersey Butcher Protein [Mass/Vol] 6.6 g/dL Normal 6.4-8.2 [facility] Comment on above: Performed By: #### T SH, BNP, HSTROPN, CMP #### [facility] [address] [place] [address] Dr. Jersey Butcher Sodium [Moles/Vol] 132 mmol/L Critically low 136-145 [facility] Comment on above: Performed By: #### T SH, BNP, HSTROPN, CMP #### [facility] [address] [place] [address] Dr. Jersey Butcher Urea nitrogen [Mass/Vol] 22.0 mg/dL Critically high 7.0-18.0 [facility] Comment on above: Performed By: #### T SH, BNP, HSTROPN, CMP #### [facility] [address] [place] [address] Dr. Jersey Butcher Urea nitrogen/Creatinine [Mass ratio] 19.1 mg/mg Normal [facility] Comment on above: Performed By: #### T SH, BNP, HSTROPN, CMP #### [facility] [address] [place] [address] Dr. Jersey Butcher QUANTIFERON TB GOLD PLUSon 1 08-05-2021 QuantiFERON Criteria Comment Normal [facility] Comment on above: Result Comment: [...] #### T SH, BNP, HSTROPN, CMP #### [facility] [address] [place] [address] [address] Jersey Butcher QuantiFERON Incubation Incubation performed. Normal [facility] Comment on above: Performed By: #### T SH, BNP, HSTROPN, CMP #### [facility] [address] [place] [address] [address] Jersey Butcher QuantiFERON Mitogen Value 4.42 IU/mL Normal [facility] Comment on above: Performed By: #### T SH, BNP, HSTROPN, CMP #### [facility] [address] [place] [address] Dr. Jersey Butcher QuantiFERON Nil Value 0.00 IU/mL Normal [facility] Comment on above: Performed By: #### T SH, BNP, HSTROPN, CMP #### [facility] [address] [place] [address] [address] Jersey Butcher QuantiFERON TB1 Ag Value 0.00 IU/mL Normal [facility] Comment on above: Performed By: #### T SH, BNP, HSTROPN, CMP #### [facility] [address] [place] [address] Dr. Jersey Butcher QuantiFERON TB2 Ag Value 0.01 IU/mL Normal [facility] Comment on above: Performed By: #### T SH, BNP, HSTROPN, CMP #### [facility] [address] [place] [address] Dr. Jersey Butcher QuantiFERON-TB Gold Plus Negative Normal Negative [facility] Comment on above: Result Comment: No r esponse to M tuberculosis antigens detected. Infection with M tuberculosis is unlikely, but high risk individuals should be considered for additional testing (ATS/IDSA/CDC Clinical Practice Guidelines, 2017). The reference range is an Antigen minus Nil result of <0.35 IU/mL. Chemiluminescence immunoassay methodology Performed By: #### T SH, BNP, HSTROPN, CMP #### [facility] [address] [place] [address] Dr. Jersey Butcher BNPon 06-03-2022 Natriuretic peptide B (Bld) [Mass/Vol] 273.0 pg/mL Normal <=900.0 [facility] Comment on above: Performed By: #### D DIM #### [facility] [address] [place] [address] Dr. Jersey Butcher CBC W MANUAL DIFFon 06-03-20 ATYPICAL LYMPH # Normal [facility] Comment on above: Performed By: #### C BCMAN #### [facility] [address] [place] [address] Dr. Jersey Butcher ATYPICAL LYMPH % Normal [facility] Comment on above: Performed By: #### C BCMAN #### [facility] [address] [place] [address] Dr. Jersey Butcher BAND # 0.0 103/ul Normal 0.0-0.3 [facility] Comment on above: Performed By: #### C BCMAN #### [facility] [address] [place] [address] Dr. Jersey Butcher BAND % 0 % Normal 0-5 [facility] Comment on above: Performed By: #### C BCMAN #### [facility] [address] [place] [address] Dr. Jersey Butcher BASOM # 0.00 103/ul Normal 0.00-0.10 [facility] Comment on above: Performed By: #### C BCMAN #### [facility] [address] [place] [address] Dr. Jersey Butcher BASOM % 0.0 % Critically low 0.2-2.0 [facility] Comment on above: Performed By: #### C BCMAN #### [facility] [address] [place] [address] Dr. Jersey Butcher BLAST # Normal [facility] Comment on above: Performed By: #### C BCROSIE #### [facility] [address] [place] [address] Dr. Jersey Butcher BLAST % Normal [facility] Comment on above: Performed By: #### C BCROSIE #### [facility] [address] [place] [address] [address] Jersey Butcher CORRECTED WBC Normal 4.0-11.0 [facility] Comment on above: Performed By: #### C BCROSIE #### [facility] [address] [place] [address] [address] Jersey Butcher EOS # 0.00 103/ul Normal 0.00-0.70 [facility] Comment on above: Performed By: #### C BCROSIE #### [facility] [address] [place] [address] [address] Jersey Butcher EOS% 0.0 % Critically low 0.9-7.0 [facility] Comment on above: Performed By: #### C BCROSIE #### [facility] [address] [place] [address] Dr. Jersey Butcher HCT 41.2 % Critically low 42.0-54.0 [facility] Comment on above: Performed By: #### C MADDIE #### [facility] [address] [place] [address] [address] Jersey Butcher HGB 14.3 g/dl Normal 14.0-18.0 [facility] Comment on above: Performed By: #### C BCROSIE #### [facility] [address] [place] [address] [address] Jersey Butcher LYMPHM # 0.85 103/ul Critically low 1.20-3.80 [facility] Comment on above: Performed By: #### C BCROSIE #### [facility] [address] [address] [address] Jersey Butcher LYMPHM% 7.0 % Critically low 20.5-60.0 [facility] Comment on above: Performed By: #### C BCROSIE #### [facility] [address] [place] [address] [address] Jersey Butcher MCH 31.3 pg Normal 25.9-34.0 [facility] Comment on above: Performed By: #### C BCROSIE #### [facility] [address] [place] [address] Dr. Jersey Butcher MCHC 34.7 g/dl Normal 29.9-35.2 [facility] Comment on above: Performed By: #### C MADDIE #### [facility] [address] [place] [address] Dr. Jersey Butcher MCV 90.2 fL Normal 80.0-94.0 [facility] Comment on above: Performed By: #### C MADDIE #### [facility] [address] [place] [address] Dr. Jersey Butcher METAMYELOCYTE # Normal [facility] Comment on above: Performed By: #### C MADDIE #### [facility] [address] [place] [address] Dr. Jersey Butcher METAMYELOCYTE % Normal [facility] Comment on above: Performed By: #### C MADDIE #### [facility] [address] [place] [address] Dr. Jersey Butcher MONOM# 0.24 103/ul Critically low 0.30-0.80 [facility] Comment on above: Performed By: #### C MADDIE #### [facility] [address] [place] [address] Dr. Jersey Butcher MONOM% 2.0 % Normal 1.7-12.0 [facility] Comment on above: Performed By: #### C MADDIE #### [facility] [address] [place] [address] Dr. Jersey Butcher MPV 10.8 fL Normal 9.5-13.5 [facility] Comment on above: Performed By: #### C MADDIE #### [facility] [address] [place] [address] Dr. Jersey Butcher MYELOCYTE # Normal [facility] Comment on above: Performed By: #### C MADDIE #### [facility] [address] [place] [address] Dr. Jersey Butcher MYELOCYTE % Normal [facility] Comment on above: Performed By: #### C MADDIE #### [facility] [address] [place] [address] Dr. Jersey Butcher NRBC Normal [facility] Comment on above: Performed By: #### C MADDIE #### [facility] [address] [address] [address] Jersey Butcher PLT 177 103/ul Normal 150-450 [facility] Comment on above: Performed By: #### C MADDIE #### [facility] [address] [address] [address] Jersey Butcher RBC 4.57 106/ul Critically low 4.70-6.10 [facility] Comment on above: Performed By: #### C MADDIE #### [facility] [address] [address] [address] Jersey Butcher RDW 11.8 % Normal 11.0-15.0 [facility] Comment on above: Performed By: #### C MADDIE #### [facility] [address] [address] [address] Jersey Butcher SEG # 11.10 103/ul Critically high 1.40-6.50 [facility] Comment on above: Performed By: #### C MADDIE #### [facility] [address] [address] [address] Jersey Butcher SEG % 91.0 % Critically high 43.0-75.0 [facility] Comment on above: Performed By: #### C MADDIE #### [facility] [id number] Jersey Butcher WBC 12.2 103/ul Critically high 4.0-11.0 [facility] [facility] Comment on above: Performed By: #### C MADDIE #### [facility] [address] [address] [address] Jersey Butcher PROF 14(COMP METB)on 022 Albumin [Mass/Vol] 2.9 g/dL Critically low 3.4-5.0 [facility] Comment on above: Performed By: #### D DIM #### [facility] [address] [address] [address] Jersey Butcher Albumin/Globulin [Mass ratio] 0.8 {ratio} Normal [facility] Comment on above: Performed By: #### D DIM #### [facility] [address] [address] [address] Jersey Butcher ALP [Catalytic activity/Vol] 90 U/L Normal 46-116 [facility] Comment on above: Performed By: #### D DIM #### [facility] [address] [address] [address] Jersey Butcher ALT [Catalytic activity/Vol] 40 U/L Normal 16-63 [facility] Comment on above: Performed By: #### D DIM #### [facility] [address] [place] [address] Dr. Jersey Butcher Anion gap [Moles/Vol] 6.7 mmol/L Normal [facility] Comment on above: Performed By: #### D DIM #### [facility] [address] [place] [address] Dr. Jersey Butcher AST [Catalytic activity/Vol] 20 U/L Normal 15-37 [facility] Comment on above: Performed By: #### D DIM #### [facility] [address] [place] [address] Dr. Jersey Butcher Bilirubin [Mass/Vol] 0.4 mg/dL Normal 0.2-1.0 [facility] Comment on above: Performed By: #### D DIM #### [facility] [address] [place] [address] Dr. Jersey Butcher Calcium [Mass/Vol] 8.6 mg/dL Normal 8.5-10.1 [facility] Comment on above: Performed By: #### D DIM #### [facility] [address] [place] [address] Dr. Jersey Butcher Chloride [Moles/Vol] 95 mmol/L Critically low 98-107 [facility] Comment on above: Performed By: #### D DIM #### [facility] [address] [place] [address] Dr. Jersey Butcher CO2 [Moles/Vol] 33.6 mmol/L Critically high 21.0-32.0 [facility] Comment on above: Performed By: #### D DIM #### [facility] [address] [address] [address] Jersey Butcher Creatinine [Mass/Vol] 1.14 mg/dL Normal 0.70-1.30 [facility] Comment on above: Performed By: #### D DIM #### [facility] [address] [address] [address] Jersey Butcher EGFR-AF COOK ISLANDER >60 Normal >=60 [facility] Comment on above: Performed By: #### D DIM #### [facility] [address] [address] [address] Jersey Butcher EGFR-NON AF COOK ISLANDER >60 Normal >=60 [facility] Comment on above: Performed By: #### D DIM #### [facility] [address] [place] [address] Dr. Jersey Butcher Globulin (S) [Mass/Vol] 3.7 g/dL Normal [facility] Comment on above: Performed By: #### D DIM #### [facility] [address] [place] [address] Dr. Jersey Butcher Glucose [Mass/Vol] 205 mg/dL Critically high 74-106 T [facility] Comment on above: Performed By: #### D DIM #### [facility] [address] [place] [address] Dr. Jersey Butcher Potassium [Moles/Vol] 3.3 mmol/L Critically low 3.5-5.1 [facility] Comment on above: Performed By: #### D DIM #### [facility] [address] [place] [address] Dr. Jersey Butcher Protein [Mass/Vol] 6.6 g/dL Normal 6.4-8.2 [facility] Comment on above: Performed By: #### D DIM #### [facility] [address] [place] [address] Dr. Jersey Butcher Sodium [Moles/Vol] 132 mmol/L Critically low 136-145 [facility] Comment on above: Performed By: #### D DIM #### [facility] [address] [place] [address] Dr. Jersey Butcher Urea nitrogen [Mass/Vol] 24.0 mg/dL Critically high 7.0-18.0 [facility] Comment on above: Performed By: #### D DIM #### [facility] [address] [place] [address] Dr. Jersey Butcher Urea nitrogen/Creatinine [Mass ratio] 21.1 mg/mg Normal [facility] Comment on above: Performed By: #### D DIM #### [facility] [address] [place] [address] Dr. Jersey Butcher BNPon 06-02-2022 Natriuretic peptide B (Bld) [Mass/Vol] 85.0 pg/mL Normal <=900.0 [facility] Comment on above: Performed By: #### C VDTBH #### [facility] [address] [place] [address] Dr. Jersey Butcher CBC AUTO DIFFon 06-02-2022 BASO # 0.0 103/ul Normal 0.0-0.1 [facility] Comment on above: Performed By: #### T SH, BNP, HSTROPN, CMP #### [facility] [address] [place] [address] Dr. Jersey Butcher Basophils/100 WBC (Bld) 0.5 % Normal 0.2-2.0 [facility] Comment on above: Performed By: #### T SH, BNP, HSTROPN, CMP #### [facility] [address] [place] [address] Dr. Jersey Butcher EO # 0.0 103/ul Normal 0.0-0.7 [facility] Comment on above: Performed By: #### T SH, BNP, HSTROPN, CMP #### [facility] [address] [place] [address] Dr. Jersey Butcher Eosinophils/100 WBC (Bld) 0.0 % Critically low 0.9-7.0 [facility] Comment on above: Performed By: #### T SH, BNP, HSTROPN, CMP #### [facility] [address] [place] [address] Dr. Jersey Butcher Erythrocyte distribution width (RBC) [Ratio] 11.5 % Normal 11.0-15.0 [facility] Comment on above: Performed By: #### T SH, BNP, HSTROPN, CMP #### [facility] [address] [place] [address] Dr. Jersey Butcher Hematocrit (Bld) [Volume fraction] 42.8 % Normal 42.0-54.0 [facility] Comment on above: Performed By: #### T SH, BNP, HSTROPN, CMP #### [facility] [address] [place] [address] Dr. Jersey Bucther Hemoglobin (Bld) [Mass/Vol] 14.6 g/dL Normal 14.0-18.0 [facility] Comment on above: Performed By: #### T SH, BNP, HSTROPN, CMP #### [facility] [address] [place] [address] Dr. Jersey Butcher IG # 0.00 10e3/ul Normal 0.00-0.03 [facility] Comment on above: Performed By: #### T SH, BNP, HSTROPN, CMP #### [facility] [address] [place] [address] Dr. Jersey Butcher IG % 0.0 % Normal 0.0-0.5 [facility] Comment on above: Performed By: #### T SH, BNP, HSTROPN, CMP #### [facility] [address] [place] [address] Dr. Jersey Butcher LYMPH # 0.4 103/ul Critically low 1.2-3.8 [facility] Comment on above: Performed By: #### T SH, BNP, HSTROPN, CMP #### [facility] [address] [place] [address] Dr. Jersey Butcher Lymphocytes/100 WBC (Bld) 18.4 % Critically low 20.5-60.0 [facility] Comment on above: Performed By: #### T SH, BNP, HSTROPN, CMP #### [facility] [address] [place] [address] Dr. Jersey Butcher MANUAL DIFF REQ NO Normal [facility] Comment on above: Performed By: #### T SH, BNP, HSTROPN, CMP #### [facility] [address] [place] [address] Dr. Jersey Butcher MCH (RBC) [Entitic mass] 30.9 pg Normal 25.9-34.0 [facility] Comment on above: Performed By: #### T SH, BNP, HSTROPN, CMP #### [facility] [address] [place] [address] Dr. Jersey Butcher MCHC (RBC) [Mass/Vol] 34.1 g/dL Normal 29.9-35.2 [facility] Comment on above: Performed By: #### T SH, BNP, HSTROPN, CMP #### [facility] [address] [place] [address] Dr. Jersey Butcher MCV (RBC) [Entitic vol] 90.7 fL Normal 80.0-94.0 [facility] Comment on above: Performed By: #### T SH, BNP, HSTROPN, CMP #### [facility] [address] [place] [address] Dr. Jersey Butcher MONO # 0.1 103/ul Critically low 0.3-0.8 [facility] Comment on above: Performed By: #### T SH, BNP, HSTROPN, CMP #### [facility] [address] [place] [address] Dr. Jersey Butcher Monocytes/100 WBC (Bld) 4.6 % Normal 1.7-12.0 [facility] Comment on above: Performed By: #### T SH, BNP, HSTROPN, CMP #### [facility] [address] [place] [address] Dr. Jersey Butcher NEUT # 1.7 103/ul Normal 1.4-6.5 [facility] Comment on above: Performed By: #### T SH, BNP, HSTROPN, CMP #### [facility] [address] [place] [address] Dr. Jersey Butcher Neutrophils/100 WBC (Bld) 76.5 % Critically high 43.0-75.0 [facility] Comment on above: Performed By: #### T SH, BNP, HSTROPN, CMP #### [facility] [address] [place] [address] Dr. Jersey Butcher Platelet mean volume (Bld) [Entitic vol] 10.1 fL Normal 9.5-13.5 [facility] Comment on above: Performed By: #### T SH, BNP, HSTROPN, CMP #### [facility] [address] [place] [address] Dr. Jersey Butcher PLT 160 103/ul Normal 150-450 [facility] Comment on above: Performed By: #### T SH, BNP, HSTROPN, CMP #### [facility] [address] [place] [address] Dr. Jersey Butcher RBC 4.72 106/ul Normal 4.70-6.10 [facility] Comment on above: Performed By: #### T SH, BNP, HSTROPN, CMP #### [facility] [address] [place] [address] Dr. Jersey Butcher WBC 2.2 103/ul Critically low 4.0-11.0 [facility] Comment on above: Performed By: #### T SH, BNP, HSTROPN, CMP #### [facility] [address] [place] [address] Dr. Jersey Butcher PROF 14(COMP METB)on 022 Albumin [Mass/Vol] 2.7 g/dL Critically low 3.4-5.0 [facility] Comment on above: Performed By: #### C VDTBH #### [facility] [address] [place] [address] Dr. Jersey Butcher Albumin/Globulin [Mass ratio] 0.7 {ratio} Normal [facility] Comment on above: Performed By: #### C VDTBH #### [facility] [address] [place] [address] Dr. Jersey Butcher ALP [Catalytic activity/Vol] 102 U/L Normal 46-116 [facility] Comment on above: Performed By: #### C VDTBH #### [facility] [address] [address] [address] Jersey Butcher ALT [Catalytic activity/Vol] 45 U/L Normal 16-63 [facility] Comment on above: Performed By: #### C VDTBH #### [facility] [address] [place] [address] Dr. Jersey Butcher Anion gap [Moles/Vol] 7.4 mmol/L Normal [facility] Comment on above: Performed By: #### C VDTBH #### [facility] [address] [place] [address] Dr. Jersey Butcher AST [Catalytic activity/Vol] 30 U/L Normal 15-37 [facility] Comment on above: Performed By: #### C VDTBH #### [facility] [address] [place] [address] Dr. Jersey Butcher Bilirubin [Mass/Vol] 0.3 mg/dL Normal 0.2-1.0 [facility] Comment on above: Performed By: #### C VDTBH #### [facility] [address] [place] [address] Dr. Jersey Butcher Calcium [Mass/Vol] 8.3 mg/dL Critically low 8.5-10.1 [facility] Comment on above: Performed By: #### C VDTBH #### [facility] [address] [place] [address] Dr. Jersey Butcher Chloride [Moles/Vol] 94 mmol/L Critically low 98-107 [facility] Comment on above: Performed By: #### C VDTBH #### [facility] [address] [place] [address] Dr. Jersey Butcher CO2 [Moles/Vol] 32.8 mmol/L Critically high 21.0-32.0 [facility] Comment on above: Performed By: #### C VDTBH #### [facility] [address] [place] [address] Dr. Jersey Butcher Creatinine [Mass/Vol] 1.23 mg/dL Normal 0.70-1.30 [facility] Comment on above: Performed By: #### C VDTBH #### [facility] [address] [address] [address] Jersey Butcher EGFR-AF [place] ISLANDER >60 Normal >=60 [facility] Comment on above: Performed By: #### C VDTBH #### [facility] [address] [address] [address] Jersey Butcher EGFR-NON AF [place] ISLANDER 60 mL/min/1.73m2 Normal >=60 [facility] Comment on above: Performed By: #### C VDTBH #### [facility] [address] [address] [address] Jersey Butcher Globulin (S) [Mass/Vol] 3.9 g/dL Normal [facility] Comment on above: Performed By: #### C VDTBH #### [facility] [address] [address] [address] Jersey Butcher Glucose [Mass/Vol] 314 mg/dL Critically high 74-106 T [facility] Comment on above: Performed By: #### C VDTBH #### [facility] [address] [address] [address] Jersey Butcher Potassium [Moles/Vol] 3.2 mmol/L Critically low 3.5-5.1 [facility] Comment on above: Performed By: #### C VDTBH #### [facility] [address] [address] [address] Jersey Butcher Protein [Mass/Vol] 6.6 g/dL Normal 6.4-8.2 [facility] Comment on above: Performed By: #### C VDTBH #### [facility] [address] [address] [address] Jersey Butcher Sodium [Moles/Vol] 131 mmol/L Critically low 136-145 [facility] Comment on above: Performed By: #### C VDTBH #### [facility] [address] [address] [address] Jersey Butcher Urea nitrogen [Mass/Vol] 20.0 mg/dL Critically high 7.0-18.0 [facility] Comment on above: Performed By: #### C VDTBH #### [facility] [address] [place] [address] Dr. Jersey Butcher Urea nitrogen/Creatinine [Mass ratio] 16.3 mg/mg Normal [facility] Comment on above: Performed By: #### C VDTBH #### [facility] [address] [place] [address] Dr. Jersey Butcher BNPon 06-01-2022 Natriuretic peptide B (Bld) [Mass/Vol] 70.0 pg/mL Normal <=900.0 [facility] Comment on above: Performed By: #### T SH, BNP, HSTROPN, CMP #### [facility] [address] [place] [address] Dr. Jersey Butcher CARDIAC VIDHI 3-6on 2 CK [Catalytic activity/Vol] 193 U/L Normal 39-308 [facility] Comment on above: Performed By: #### T SH, BNP, HSTROPN, CMP #### [facility] [address] [place] [address] Dr. Jersey Butcher CK.MB [Mass/Vol] 2.87 ng/mL Normal <=3.60 [facility] Comment on above: Performed By: #### T SH, BNP, HSTROPN, CMP #### [facility] [address] [place] [address] Dr. Jersey Butcher HSTROP 11.7 pg/mL Normal 4.0-76.1 [facility] Comment on above: Result Comment: CUT- OFF POINTS HAVE BEEN ESTABLISHED BASED ON THE FOURTH UNIVERSAL DEFINITIONS OF MYOCARDIAL INFARCTION. THE UPPER REFERENCE LIMIT (URL) OF TROPONIN, DEFINED THE 99TH PERCENTILE OF cTnI DISTRIBUTION IN A REFERENCE POPULATION, HAS BEEN CONFIRMED THE DECISION THRESHOLD FOR [place] DIAGNOSIS. Performed By: #### T SH, BNP, HSTROPN, CMP #### [facility] [address] [place] [address] Dr. Jersey Butcher CK [Catalytic activity/Vol] 218 U/L Normal 39-308 [facility] Comment on above: Performed By: #### T SH, BNP, HSTROPN, CMP #### [facility] [address] [address] [address] Jersey Butcher CK.MB [Mass/Vol] 3.01 ng/mL Normal <=3.60 [facility] Comment on above: Performed By: #### T SH, BNP, HSTROPN, CMP #### [facility] [address] [address] [address] Jersey Butcher HSTROP 13.9 pg/mL Normal 4.0-76.1 [facility] Comment on above: Result Comment: CUT- OFF POINTS HAVE BEEN ESTABLISHED BASED ON THE FOURTH UNIVERSAL DEFINITIONS OF MYOCARDIAL INFARCTION. THE UPPER REFERENCE LIMIT (URL) OF TROPONIN, DEFINED THE 99TH PERCENTILE OF cTnI DISTRIBUTION IN A REFERENCE POPULATION, HAS BEEN CONFIRMED THE DECISION THRESHOLD FOR [place] DIAGNOSIS. Performed By: #### T SH, BNP, HSTROPN, CMP #### [facility] [address] [place] [address] Dr. Jersey Butcher CBC W MANUAL DIFFon 06-01-20 22 ATYPICAL LYMPH # Normal [facility] Comment on above: Performed By: #### T SH, BNP, HSTROPN, CMP #### [facility] [address] [address] [address] Jersey Butcher ATYPICAL LYMPH % Normal [facility] Comment on above: Performed By: #### T SH, BNP, HSTROPN, CMP #### [facility] [address] [place] [address] Dr. Jersey Butcher BAND # 0.1 103/ul Normal 0.0-0.3 [facility] Comment on above: Performed By: #### T SH, BNP, HSTROPN, CMP #### [facility] [address] [place] [address] Dr. Jersey Butcher BAND % 2 % Normal 0-5 [facility] Comment on above: Performed By: #### T SH, BNP, HSTROPN, CMP #### [facility] [address] [place] [address] Dr. Jersey Butcher BASOM # 0.00 103/ul Normal 0.00-0.10 [facility] Comment on above: Performed By: #### T SH, BNP, HSTROPN, CMP #### [facility] [address] [address] [address] Jersey Butcher BASOM % 0.0 % Critically low 0.2-2.0 [facility] Comment on above: Performed By: #### T SH, BNP, HSTROPN, CMP #### [facility] [address] [address] [address] Jersey Butcher BLAST # Normal [facility] Comment on above: Performed By: #### T SH, BNP, HSTROPN, CMP #### [facility] [address] [address] [address] Jersey Butcher BLAST % Normal [facility] Comment on above: Performed By: #### T SH, BNP, HSTROPN, CMP #### [facility] [address] [address] [address] Jersey Butcher CORRECTED WBC Normal 4.0-11.0 [facility] Comment on above: Performed By: #### T SH, BNP, HSTROPN, CMP #### [facility] [address] [address] [address] Jersey Butcher EOS # 0.00 103/ul Normal 0.00-0.70 [facility] Comment on above: Performed By: #### T SH, BNP, HSTROPN, CMP #### [facility] [address] [address] [address] Jersey Butcher EOS% 0.0 % Critically low 0.9-7.0 [facility] Comment on above: Performed By: #### T SH, BNP, HSTROPN, CMP #### [facility] [address] [address] [address] Jersey Butcher HCT 45.5 % Normal 42.0-54.0 [facility] Comment on above: Performed By: #### T SH, BNP, HSTROPN, CMP #### [facility] [address] [address] [address] Jersey Butcher HGB 16.1 g/dl Normal 14.0-18.0 [facility] Comment on above: Performed By: #### T SH, BNP, HSTROPN, CMP #### [facility] [address] [place] [address] Dr. Jersey Butcher LYMPHM # 1.15 103/ul Critically low 1.20-3.80 [facility] Comment on above: Performed By: #### T SH, BNP, HSTROPN, CMP #### [facility] [address] [address] [address] Jersey Butcher LYMPHM% 25.0 % Normal 20.5-60.0 [facility] Comment on above: Performed By: #### T SH, BNP, HSTROPN, CMP #### [facility] [address] [place] [address] Dr. Jersey Butcher MCH 31.5 pg Normal 25.9-34.0 [facility] Comment on above: Performed By: #### T SH, BNP, HSTROPN, CMP #### [facility] [address] [place] [address] Dr. Jersey Butcher MCHC 35.4 g/dl Critically high 29.9-35.2 [facility] Comment on above: Performed By: #### T SH, BNP, HSTROPN, CMP #### [facility] [address] [place] [address] Dr. Jersey Butcher MCV 89.0 fL Normal 80.0-94.0 [facility] Comment on above: Performed By: #### T SH, BNP, HSTROPN, CMP #### [facility] [address] [place] [address] Dr. Jersey Butcher METAMYELOCYTE # Normal [facility] Comment on above: Performed By: #### T SH, BNP, HSTROPN, CMP #### [facility] [address] [place] [address] Dr. Jersey Butcher METAMYELOCYTE % Normal [facility] Comment on above: Performed By: #### T SH, BNP, HSTROPN, CMP #### [facility] [address] [place], [place] [id number] Dr. Jersey Butcher MONOM# 0.32 103/ul Normal 0.30-0.80 [facility] Comment on above: Performed By: #### T SH, BNP, HSTROPN, CMP #### [facility] [address] [place] [address] Dr. Jersey Butcher MONOM% 7.0 % Normal 1.7-12.0 [facility] Comment on above: Performed By: #### T SH, BNP, HSTROPN, CMP #### [facility] [address] [place] [address] Dr. Jersey Butcher MPV 10.4 fL Normal 9.5-13.5 [facility] Comment on above: Performed By: #### T SH, BNP, HSTROPN, CMP #### [facility] [address] [place] [address] Dr. Jersey Butcher MYELOCYTE # Normal [facility] Comment on above: Performed By: #### T SH, BNP, HSTROPN, CMP #### [facility] [address] [place] [address] Dr. Jersey Butcher MYELOCYTE % Normal [facility] Comment on above: Performed By: #### T SH, BNP, HSTROPN, CMP #### [facility] [address] [place] [address] Dr. Jersey Butcher NRBC Normal [facility] Comment on above: Performed By: #### T SH, BNP, HSTROPN, CMP #### [facility] [address] [place] [address] Dr. Jersey Butcher PLT 195 103/ul Normal 150-450 [facility] Comment on above: Performed By: #### T SH, BNP, HSTROPN, CMP #### [facility] [address] [place] [address] Dr. Jersey Butcher RBC 5.11 106/ul Normal 4.70-6.10 [facility] Comment on above: Performed By: #### T SH, BNP, HSTROPN, CMP #### [facility] [address] [place] [address] Dr. Jersey Butcher RDW 11.6 % Normal 11.0-15.0 [facility] Comment on above: Performed By: #### T SH, BNP, HSTROPN, CMP #### [facility] [address] [address] [address] Jersey Butcher SEG # 3.04 103/ul Normal 1.40-6.50 [facility] Comment on above: Performed By: #### T SH, BNP, HSTROPN, CMP #### [facility] [address] [address] [address] Jersey Butcher SEG % 66.0 % Normal 43.0-75.0 [facility] Comment on above: Performed By: #### T SH, BNP, HSTROPN, CMP #### [facility] [address] [address] [address] Jersey Butcher WBC 4.6 103/ul Normal 4.0-11.0 [facility] Comment on above: Performed By: #### T SH, BNP, HSTROPN, CMP #### [facility] [address] [place] [address] Dr. Jersey Butcher CTA CHEST WO W [...] by: KESHAWN ALVAREZ Date: 2022-06-01 17:55 Normal [facility] CULTURE BLOODon 06-01-2022 Microscopic examination of blood, culture Culture Observations: NO GROWTH AT 5 DAYS. Normal [facility] Comment on above: Performed By: #### C MADDIE #### [facility] [address] [address] [address] Jersey Butcher Microscopic examination of blood, culture Culture Observations: NO GROWTH AT 5 DAYS. Normal [facility] Comment on above: Performed By: #### C MADDIE #### [facility] [address] [place] [address] Dr. Jersey Butcher Covid-19 PCR ([facility])on 05-18 SARS-CoV-2 (COVID-19) RNA PILI+probe Ql (Unsp spec) Not detected Normal NOT DETECTED [facility] Comment on above: Result Comment: [...] for this test is supported by the [place] of Health and Human Service's declaration that [...] used). Performed By: #### D DIM #### [facility] [address] [place] [address] Dr. Jersey Butcher LACTATE/LACTIC ACIDon 2021 Lactate [Moles/Vol] 1.3 mmol/L Normal 0.4-1.9 [facility] Comment on above: Performed By: #### T SH, BNP, HSTROPN, CMP #### [facility] [address] [place] [address] Dr. Jersey Butcher PH VENOUS BLOODon 06-01-2022 PCO2 VENOUS 45.8 mmHg Normal 40.0-52.0 [facility] Comment on above: Performed By: #### C VDTBH #### [facility] [address] [place] [address] Dr. Jersey Butcher pH VENOUS 7.508 Critically high 7.330-7.430 [facility] Comment on above: Performed By: #### C VDTBH #### [facility] [address] [place] [address] Dr. Jersey Butcher PROF 14(COMP METB)on 022 Albumin [Mass/Vol] 3.1 g/dL Critically low 3.4-5.0 [facility] Comment on above: Performed By: #### T SH, BNP, HSTROPN, CMP #### [facility] [address] [place] [address] Dr. Jersey Butcher Albumin/Globulin [Mass ratio] 0.8 {ratio} Normal [facility] Comment on above: Performed By: #### T SH, BNP, HSTROPN, CMP #### [facility] [address] [place] [address] Dr. Jersey Butcher ALP [Catalytic activity/Vol] 103 U/L Normal 46-116 [facility] Comment on above: Performed By: #### T SH, BNP, HSTROPN, CMP #### [facility] [address] [place] [address] Dr. Jersey Butcher ALT [Catalytic activity/Vol] 50 U/L Normal 16-63 [facility] Comment on above: Performed By: #### T SH, BNP, HSTROPN, CMP #### [facility] [address] [place] [address] Dr. Jersey Butcher Anion gap [Moles/Vol] 6.7 mmol/L Normal [facility] Comment on above: Performed By: #### T SH, BNP, HSTROPN, CMP #### [facility] [address] [place] [address] Dr. Jersey Butcher AST [Catalytic activity/Vol] 43 U/L Critically high 15-37 [facility] Comment on above: Performed By: #### T SH, BNP, HSTROPN, CMP #### [facility] [address] [address] [address] Jersey Butcher Bilirubin [Mass/Vol] 0.7 mg/dL Normal 0.2-1.0 [facility] Comment on above: Performed By: #### T SH, BNP, HSTROPN, CMP #### [facility] [address] [address] [address] Jersey Butcher Calcium [Mass/Vol] 8.7 mg/dL Normal 8.5-10.1 [facility] Comment on above: Performed By: #### T SH, BNP, HSTROPN, CMP #### [facility] [address] [place] [address] Dr. Jersey Butcher Chloride [Moles/Vol] 94 mmol/L Critically low 98-107 [facility] Comment on above: Performed By: #### T SH, BNP, HSTROPN, CMP #### [facility] [address] [place] [address] Dr. Jersey Butcher CO2 [Moles/Vol] 35.4 mmol/L Critically high 21.0-32.0 [facility] Comment on above: Performed By: #### T SH, BNP, HSTROPN, CMP #### [facility] [address] [place] [address] Dr. Jersey Butcher Creatinine [Mass/Vol] 1.05 mg/dL Normal 0.70-1.30 [facility] Comment on above: Performed By: #### T SH, BNP, HSTROPN, CMP #### [facility] [address] [place] [address] Dr. Jersey Butcher EGFR-AF COOK ISLANDER >60 Normal >=60 [facility] Comment on above: Performed By: #### T SH, BNP, HSTROPN, CMP #### [facility] [address] [place] [address] Dr. Jersey Butcher EGFR-NON AF [place] ISLANDER >60 Normal >=60 [facility] Comment on above: Performed By: #### T SH, BNP, HSTROPN, CMP #### [facility] [address] [place] [address] Dr. Jersey Butcher Globulin (S) [Mass/Vol] 3.9 g/dL Normal [facility] Comment on above: Performed By: #### T SH, BNP, HSTROPN, CMP #### [facility] [address] [place] [address] Dr. Jersey Butcher Glucose [Mass/Vol] 116 mg/dL Critically high 74-106 T [facility] Comment on above: Performed By: #### T SH, BNP, HSTROPN, CMP #### [facility] [address] [place] [address] Dr. Jersey Butcher Potassium [Moles/Vol] 3.1 mmol/L Critically low 3.5-5.1 [facility] Comment on above: Performed By: #### T SH, BNP, HSTROPN, CMP #### [facility] [address] [place] [address] Dr. Jersey Butcher Protein [Mass/Vol] 7.0 g/dL Normal 6.4-8.2 [facility] Comment on above: Performed By: #### T SH, BNP, HSTROPN, CMP #### [facility] [address] [place] [address] Dr. Jersey Butcher Sodium [Moles/Vol] 133 mmol/L Critically low 136-145 [facility] Comment on above: Performed By: #### T SH, BNP, HSTROPN, CMP #### [facility] [address] [place] [address] Dr. Jersey Butcher Urea nitrogen [Mass/Vol] 19.0 mg/dL Critically high 7.0-18.0 [facility] Comment on above: Performed By: #### T SH, BNP, HSTROPN, CMP #### [facility] [address] [place] [address] Dr. Jersey Butcher Urea nitrogen/Creatinine [Mass ratio] 18.1 mg/mg Normal [facility] Comment on above: Performed By: #### T SH, BNP, HSTROPN, CMP #### [facility] [address] [place] [address] Dr. Jersey Butcher PROTIMEon 06-01-2022 INR Coag (PPP) [Relative time] 0.95 {INR} Normal [facility] Comment on above: Performed By: #### T SH, BNP, HSTROPN, CMP #### [facility] [address] [address] [address] Jersey Butcher INR GUIDELINES SEE BELOW Normal [facility] Comment on above: Result Comment: MARCIA RED INR: 2.0 - 3.0 CONDITIONS NOT LISTED BELOW 2.5 - 3.5 FOR PROSTHETIC HEART VALVE REPLACEMENT 2.5 - 3.5 RECURRENT THROMBOSIS Performed By: #### T SH, BNP, HSTROPN, CMP #### [facility] [address] [address] [address] Jersey Butcher PT Coag (PPP) [Time] 10.3 s Normal 9.0-11.6 [facility] Comment on above: Performed By: #### T SH, BNP, HSTROPN, CMP #### [facility] [address] [address] [address] Jersey Butcher PTTon 06-01-2022 aPTT Coag (Bld) [Time] 27.1 s Normal 22.3-36.2 [facility] Comment on above: Performed By: #### T SH, BNP, HSTROPN, CMP #### [facility] [address] [address] [address] Jersey Butcher TROPONIN, HIGH SENSITIVITYon 06-01-2022 HSTROP 14.8 pg/mL Normal 4.0-76.1 [facility] Comment on above: Result Comment: CUT- OFF POINTS HAVE BEEN ESTABLISHED BASED ON THE FOURTH UNIVERSAL DEFINITIONS OF MYOCARDIAL INFARCTION. THE UPPER REFERENCE LIMIT (URL) OF TROPONIN, DEFINED THE 99TH PERCENTILE OF cTnI DISTRIBUTION IN A REFERENCE POPULATION, HAS BEEN CONFIRMED THE DECISION THRESHOLD FOR [place] DIAGNOSIS. Performed By: #### T SH, BNP, HSTROPN, CMP #### [facility] [address] [place] [address] Dr. Jersey Butcher TSHon 06-01-2022 TSH 0.358 uIU/mL Normal 0.358-3.740 [facility] Comment on above: Performed By: #### T SH, BNP, HSTROPN, CMP #### [facility] [address] [place], [place] [address] Dr. Jersey Butcher Covid-19 PCR ([facility])on 05-18 SARS-CoV-2 (COVID-19) RNA PILI+probe Ql (Unsp spec) Not detected Normal NOT DETECTED [facility] Comment on above: Result Comment: This test is not yet approved or cleared by the [place] FDA. When there are no FDA-approved or cleared tests available, and other criteria are met, FDA can make tests available under an emergency access mechanism called an Emergency Use Authorization (EUA). The EUA for this test is supported by the [place] of Health and Human Service's (HHS's) declaration [...] #### T SH, BNP, HSTROPN, CMP #### [facility] [address] [place] [address] [address] [address] Jersey Butcher CARDIAC VIDHI 3-6on 2 CK [Catalytic activity/Vol] 624 U/L Critically high 39-308 [facility] Comment on above: Performed By: #### T SH, BNP, HSTROPN, CMP #### [facility] [address] [place], [place] [address] Dr. Jersey Butcher CK.MB [Mass/Vol] 0.09 ng/mL Normal <=3.60 [facility] Comment on above: Performed By: #### T SH, BNP, HSTROPN, CMP #### [facility] [address] [address] [address] Jersey Butcher HSTROP 14.9 pg/mL Normal 4.0-76.1 [facility] Comment on above: Result Comment: CUT- OFF POINTS HAVE BEEN ESTABLISHED BASED ON THE FOURTH UNIVERSAL DEFINITIONS OF MYOCARDIAL INFARCTION. THE UPPER REFERENCE LIMIT (URL) OF TROPONIN, DEFINED THE 99TH PERCENTILE OF cTnI DISTRIBUTION IN A REFERENCE POPULATION, HAS BEEN CONFIRMED THE DECISION THRESHOLD FOR [place] DIAGNOSIS. Performed By: #### T SH, BNP, HSTROPN, CMP #### [facility] [address] [address] [address] Jersey Butcher CARDIAC VIDHI ADMITon 022 CK [Catalytic activity/Vol] 659 U/L Critically high 39-308 [facility] Comment on above: Performed By: #### T SH, BNP, HSTROPN, CMP #### [facility] [address] [place] [address] Dr. Jersey Butcher CK.MB [Mass/Vol] 0.16 ng/mL Normal <=3.60 [facility] Comment on above: Performed By: #### T SH, BNP, HSTROPN, CMP #### [facility] [address] [address] [address] Jersey Butcher HSTROP 15.8 pg/mL Normal 4.0-76.1 [facility] Comment on above: Result Comment: CUT- OFF POINTS HAVE BEEN ESTABLISHED BASED ON THE FOURTH UNIVERSAL DEFINITIONS OF MYOCARDIAL INFARCTION. THE UPPER REFERENCE LIMIT (URL) OF TROPONIN, DEFINED THE 99TH PERCENTILE OF cTnI DISTRIBUTION IN A REFERENCE POPULATION, HAS BEEN CONFIRMED THE DECISION THRESHOLD FOR [place] DIAGNOSIS. Performed By: #### T SH, BNP, HSTROPN, CMP #### [facility] [address] [place] [address] Dr. Jersey Butcher NILDA 266 ng/mL Critically high 16-96 [facility] Comment on above: Performed By: #### T SH, BNP, HSTROPN, CMP #### [facility] [address] [place] [address] Dr. Jersey Butcher CBC AUTO DIFFon 05-26-2022 BASO # 0.0 103/ul Normal 0.0-0.1 [facility] Comment on above: Performed By: #### C BCMAN #### [facility] [address] [place] [address] Dr. Jersey Butcher Basophils/100 WBC (Bld) 0.2 % Normal 0.2-2.0 [facility] Comment on above: Performed By: #### C BCROSIE #### [facility] [address] [place] [address] Dr. Jersey Butcher EO # 0.0 103/ul Normal 0.0-0.7 [facility] Comment on above: Performed By: #### C MADDIE #### [facility] [address] [place] [address] Dr. Jersey Butcher Eosinophils/100 WBC (Bld) 0.3 % Critically low 0.9-7.0 [facility] Comment on above: Performed By: #### C MADDIE #### [facility] [address] [place] [address] Dr. Jersey Butcher Erythrocyte distribution width (RBC) [Ratio] 11.9 % Normal 11.0-15.0 [facility] Comment on above: Performed By: #### C MADDIE #### [facility] [address] [place] [address] Dr. Jersey Butcher Hematocrit (Bld) [Volume fraction] 45.0 % Normal 42.0-54.0 [facility] Comment on above: Performed By: #### C MADDIE #### [facility] [address] [place] [address] Dr. Jersey Butcher Hemoglobin (Bld) [Mass/Vol] 15.6 g/dL Normal 14.0-18.0 [facility] Comment on above: Performed By: #### C MADDIE #### [facility] [address] [place] [address] Dr. Jesrey Butcher IG # 0.02 10e3/ul Normal 0.00-0.03 [facility] Comment on above: Performed By: #### C MADDIE #### [facility] [address] [place] [address] Dr. Jersey Butcher IG % 0.2 % Normal 0.0-0.5 [facility] Comment on above: Performed By: #### C MADDIE #### [facility] [address] [address] [address] Jersey Butcher LYMPH # 0.4 103/ul Critically low 1.2-3.8 [facility] Comment on above: Performed By: #### C MADDIE #### [facility] [address] [address] [address] Jersey Butcher Lymphocytes/100 WBC (Bld) 3.6 % Critically low 20.5-60.0 [facility] Comment on above: Performed By: #### C MADDIE #### [facility] [address] [address] [address] Jersey Butcher MANUAL DIFF REQ NO Normal [facility] Comment on above: Performed By: #### C MADDIE #### [facility] [address] [place] [address] Dr. Jersey Butcher MCH (RBC) [Entitic mass] 32.0 pg Normal 25.9-34.0 [facility] Comment on above: Performed By: #### C MADDIE #### [facility] [address] [place] [address] Dr. Jersey Butcher MCHC (RBC) [Mass/Vol] 34.7 g/dL Normal 29.9-35.2 [facility] Comment on above: Performed By: #### C MADDIE #### [facility] [address] [place] [address] Dr. Jersey Butcher MCV (RBC) [Entitic vol] 92.2 fL Normal 80.0-94.0 [facility] Comment on above: Performed By: #### C MADDIE #### [facility] [address] [place] [address] Dr. Jersey Butcher MONO # 0.8 103/ul Normal 0.3-0.8 [facility] Comment on above: Performed By: #### C MADDIE #### [facility] [address] [address] [address] Jersey Butcher Monocytes/100 WBC (Bld) 6.9 % Normal 1.7-12.0 [facility] Comment on above: Performed By: #### C MADDEI #### [facility] [address] [address] [address] Jersey Butcher NEUT # 10.5 103/ul Critically high 1.4-6.5 [facility] Comment on above: Performed By: #### C MADDIE #### [facility] [address] [address] [address] Jersey Butcher Neutrophils/100 WBC (Bld) 88.8 % Critically high 43.0-75.0 [facility] Comment on above: Performed By: #### C MADDIE #### [facility] [address] [address] [address] Jersey Butcher Platelet mean volume (Bld) [Entitic vol] 10.1 fL Normal 9.5-13.5 [facility] Comment on above: Performed By: #### Alhaji PERKINS #### [facility] [address] [place] [address] Dr. Jersey Butcher PLT 273 103/ul Normal 150-450 [facility] Comment on above: Performed By: #### C MADDIE #### [facility] [address] [place] [address] Dr. Jersey Butcher RBC 4.88 106/ul Normal 4.70-6.10 [facility] Comment on above: Performed By: #### C MADDIE #### [facility] [address] [place], [place] [id number] Dr. Jersey Butcher WBC 11.8 103/ul Critically high 4.0-11.0 [facility] Comment on above: Performed By: #### C MADDIE #### [facility] [address] [place] [address] Dr. Jersey Butcher Covid-19 PCR ([facility])on SARS-CoV-2 (COVID-19) RNA PILI+probe Ql (Unsp spec) Not detected Normal NOT DETECTED [facility] Comment on above: Result Comment: [...] for this test is supported by the [place] of Health and Human Service's declaration that [...] #### T SH, BNP, HSTROPN, CMP #### [facility] [address] [place] [address] Dr. Jersey Butcher INFLUENZA A AND B [facility] 05-26 [facility] SEE BELOW Normal [facility] Comment on above: Result Comment: Nega tive for Flu A protein angiten. Infection due to Flu A cannot be ruled out. Flu A angiten in the sample may be below the detection limit of the test. Performed By: #### T SH, BNP, HSTROPN, CMP #### [facility] [address] [place] [address] Dr. Jersey But[facility] Normal [facility] Comment on above: Result Comment: Nega tive for Flu B protein antigen. Infection due to Flu B cannot be ruled out. Flu B antigen in the sample may be below the detection limit of the test. Performed By: #### T SH, BNP, HSTROPN, CMP #### [facility] [address] [place] [address] Dr. Jersey Butcher INFLUENZA A AG Negative Normal NEGATIVE SEE COMMENT [facility] Comment on above: Performed By: #### T SH, BNP, HSTROPN, CMP #### [facility] [address] [place] [address] Dr. Jersey Butcher INFLUENZA B AG Negative Normal NEGATIVE SEE COMMENT [facility] Comment on above: Performed By: #### T SH, BNP, HSTROPN, CMP #### [facility] [address] [address] [address] Jersey Butcher INTERNAL CONTROLS Within Normal Limits Normal Wi thin Normal Limits [facility] Comment on above: Performed By: #### T SH, BNP, HSTROPN, CMP #### [facility] [address] [place] [address] Dr. Jersey Butcher LACTATE/LACTIC ACIDon 2021 Lactate [Moles/Vol] 1.8 mmol/L Normal 0.4-1.9 [facility] Comment on above: Performed By: #### T SH, BNP, HSTROPN, CMP #### [facility] [address] [address] [address] Jersey Butcher PROF CHEM 8 (BAS METB)on Anion gap [Moles/Vol] 7.1 mmol/L Normal [facility] Comment on above: Performed By: #### T SH, BNP, HSTROPN, CMP #### [facility] [address] [address] [address] Jersey Butcher Calcium [Mass/Vol] 8.9 mg/dL Normal 8.5-10.1 [facility] Comment on above: Performed By: #### T SH, BNP, HSTROPN, CMP #### [facility] [address] [place] [address] Dr. Jersey Butcher Chloride [Moles/Vol] 95 mmol/L Critically low 98-107 [facility] Comment on above: Performed By: #### T SH, BNP, HSTROPN, CMP #### [facility] [address] [place] [address] Dr. Jersey Butcher CO2 [Moles/Vol] 33.2 mmol/L Critically high 21.0-32.0 [facility] Comment on above: Performed By: #### T SH, BNP, HSTROPN, CMP #### [facility] [address] [place] [address] Dr. Jersey Butcher Creatinine [Mass/Vol] 1.19 mg/dL Normal 0.70-1.30 [facility] Comment on above: Performed By: #### T SH, BNP, HSTROPN, CMP #### [facility] [address] [address] [address] Jersey Butcher EGFR-AF [place]LANDER >60 Normal >=60 [facility] Comment on above: Performed By: #### T SH, BNP, HSTROPN, CMP #### [facility] [address] [address] [address] Jersey Butcher EGFR-NON AF [place] ISLANDER >60 Normal >=60 [facility] Comment on above: Performed By: #### T SH, BNP, HSTROPN, CMP #### [facility] [address] [address] [address] Jersey Butcher Glucose [Mass/Vol] 135 mg/dL Critically high 74-106 T [facility] Comment on above: Performed By: #### T SH, BNP, HSTROPN, CMP #### [facility] [address] [place] [address] Dr. Jersey Butcher Potassium [Moles/Vol] 3.3 mmol/L Critically low 3.5-5.1 [facility] Comment on above: Performed By: #### T SH, BNP, HSTROPN, CMP #### [facility] [address] [address] [address] Jersey Butcher Sodium [Moles/Vol] 132 mmol/L Critically low 136-145 [facility] Comment on above: Performed By: #### T SH, BNP, HSTROPN, CMP #### [facility] [address] [address] [address] Jersey Butcher Urea nitrogen [Mass/Vol] 18.0 mg/dL Normal 7.0-18.0 [facility] Comment on above: Performed By: #### T SH, BNP, HSTROPN, CMP #### [facility] [address] [place] [address] Dr. Jersey Butcher Urea nitrogen/Creatinine [Mass ratio] 15.1 mg/mg Normal [facility] Comment on above: Performed By: #### T SH, BNP, HSTROPN, CMP #### [facility] [address] [place] [address] Dr. Jersey Butcher RSVon 05-26-2022 RSV AG Negative Normal NEGATIVE [facility] Comment on above: Performed By: #### T SH, BNP, HSTROPN, CMP #### [facility] [address] [address] [address] Jersey Butcher XR CHEST 1 Von [...] MARLENE ARAMBULA Date: 2022-05-26 00:45 Normal [facility] BNPon 05-20-2022 Natriuretic peptide B (Bld) [Mass/Vol] 137.0 pg/mL Normal <=900.0 [facility] Comment on above: Performed By: #### C VDTBH #### [facility] [address] [address] [address] Jersey Butcher CARDIAC VIDHI 3-6on 2 CK [Catalytic activity/Vol] 139 U/L Normal 39-308 [facility] Comment on above: Performed By: #### C VDTBH #### [facility] [address] [address] [address] Jersey Butcher CK.MB [Mass/Vol] 2.85 ng/mL Normal <=3.60 [facility] Comment on above: Performed By: #### C VDTBH #### [facility] [address] [address] [address] Jersey Butcher HSTROP 78.1 pg/mL Critically high 4.0-76.1 [facility] Comment on above: Result Comment: CUT- OFF POINTS HAVE BEEN ESTABLISHED BASED ON THE FOURTH UNIVERSAL DEFINITIONS OF MYOCARDIAL INFARCTION. THE UPPER REFERENCE LIMIT (URL) OF TROPONIN, DEFINED THE 99TH PERCENTILE OF cTnI DISTRIBUTION IN A REFERENCE POPULATION, HAS BEEN CONFIRMED THE DECISION THRESHOLD FOR [place] DIAGNOSIS. Performed By: #### C VDTBH #### [facility] [address] [address] [address] Jersey Butcher CK [Catalytic activity/Vol] 159 U/L Normal 39-308 [facility] Comment on above: Performed By: #### T SH, BNP, HSTROPN, CMP #### [facility] [address] [address] [address] Jersey Butcher CK.MB [Mass/Vol] 3.45 ng/mL Normal <=3.60 [facility] Comment on above: Performed By: #### T SH, BNP, HSTROPN, CMP #### [facility] [address] [place] [address] Dr. Jersey Butcher HSTROP 84.8 pg/mL Critically high 4.0-76.1 [facility] [facility] Comment on above: Result Comment: CUT- OFF POINTS HAVE BEEN ESTABLISHED BASED ON THE FOURTH UNIVERSAL DEFINITIONS OF MYOCARDIAL INFARCTION. THE UPPER REFERENCE LIMIT (URL) OF TROPONIN, DEFINED THE 99TH PERCENTILE OF cTnI DISTRIBUTION IN A REFERENCE POPULATION, HAS BEEN CONFIRMED THE DECISION THRESHOLD FOR [place] DIAGNOSIS. Performed By: #### T SH, BNP, HSTROPN, CMP #### [facility] [address] [place] [address] Dr. Jersey Butcher CARDIAC VIDHI ADMITon 022 CK [Catalytic activity/Vol] 170 U/L Normal 39-308 [facility] Comment on above: Performed By: #### C VDTBH #### [facility] [address] [place] [address] Dr. Jersey Butcher CK.MB [Mass/Vol] 2.94 ng/mL Normal <=3.60 [facility] Comment on above: Performed By: #### C VDTBH #### [facility] [address] [place] [address] Dr. Jersey Butcher HSTROP 82.2 pg/mL Critically high 4.0-76.1 [facility] Comment on above: Result Comment: CUT- OFF POINTS HAVE BEEN ESTABLISHED BASED ON THE FOURTH UNIVERSAL DEFINITIONS OF MYOCARDIAL INFARCTION. THE UPPER REFERENCE LIMIT (URL) OF TROPONIN, DEFINED THE 99TH PERCENTILE OF cTnI DISTRIBUTION IN A REFERENCE POPULATION, HAS BEEN CONFIRMED THE DECISION THRESHOLD FOR [place] DIAGNOSIS. Performed By: #### C VDTBH #### [facility] [address] [place] [address] Dr. Jersey Butcher NILDA 72 ng/mL Normal 16-96 [facility] Comment on above: Performed By: #### C VDTBH #### [facility] [address] [place] [address] Dr. Jersey Butcher CBC AUTO DIFFon 05-20-2022 BASO # 0.0 103/ul Normal 0.0-0.1 [facility] Comment on above: Performed By: #### C BC #### [facility] [address] [place] [address] Dr. Jersey Butcher Basophils/100 WBC (Bld) 0.3 % Normal 0.2-2.0 [facility] Comment on above: Performed By: #### C BC #### [facility] [address] [place] [address] Dr. Jersey Butcher EO # 0.1 103/ul Normal 0.0-0.7 [facility] Comment on above: Performed By: #### C BC #### [facility] [address] [place] [address] Dr. Jersey Butcher Eosinophils/100 WBC (Bld) 1.8 % Normal 0.9-7.0 [facility] Comment on above: Performed By: #### C BC #### [facility] [address] [place] [address] Dr. Jersey Butcher Erythrocyte distribution width (RBC) [Ratio] 11.9 % Normal 11.0-15.0 [facility] Comment on above: Performed By: #### C BC #### [facility] [address] [place] [address] Dr. Jersey Butcher Hematocrit (Bld) [Volume fraction] 43.5 % Normal 42.0-54.0 [facility] Comment on above: Performed By: #### C BC #### [facility] [address] [place] [address] Dr. Jersey Butcher Hemoglobin (Bld) [Mass/Vol] 15.4 g/dL Normal 14.0-18.0 [facility] Comment on above: Performed By: #### C BC #### [facility] [address] [place] [address] Dr. Jersey Butcher IG # 0.01 10e3/ul Normal 0.00-0.03 [facility] Comment on above: Performed By: #### C BC #### [facility] [address] [place] [address] Dr. Jersey Butcher IG % 0.2 % Normal 0.0-0.5 [facility] Comment on above: Performed By: #### C BC #### [facility] [address] [place] [address] Dr. Jersey Butcher LYMPH # 1.4 103/ul Normal 1.2-3.8 [facility] Comment on above: Performed By: #### C BC #### [facility] [address] [place] [address] Dr. Jersey Butcher Lymphocytes/100 WBC (Bld) 21.0 % Normal 20.5-60.0 [facility] Comment on above: Performed By: #### C BC #### [facility] [address] [place] [address] Dr. Jersey Butcher MANUAL DIFF REQ NO Normal [facility] Comment on above: Performed By: #### C BC #### [facility] [address] [place] [address] Dr. Jersey Butcher MCH (RBC) [Entitic mass] 32.2 pg Normal 25.9-34.0 [facility] Comment on above: Performed By: #### C BC #### [facility] [address] [place] [address] Dr. Jersey Butcher MCHC (RBC) [Mass/Vol] 35.4 g/dL Critically high 29.9-35.2 [facility] Comment on above: Performed By: #### C BC #### [facility] [address] [place] [address] Dr. Jersey Butcher MCV (RBC) [Entitic vol] 91.0 fL Normal 80.0-94.0 [facility] Comment on above: Performed By: #### C BC #### [facility] [address] [place] [address] Dr. Jersey Butcher MONO # 1.0 103/ul Critically high 0.3-0.8 [facility] Comment on above: Performed By: #### C BC #### [facility] [address] [place] [address] Dr. Jersey Butcher Monocytes/100 WBC (Bld) 14.9 % Critically high 1.7-12.0 [facility] Comment on above: Performed By: #### C BC #### [facility] [address] [place] [address] Dr. Jersey Butcher NEUT # 4.0 103/ul Normal 1.4-6.5 [facility] Comment on above: Performed By: #### C BC #### [facility] [address] [place] [address] Dr. Jersey Butcher Neutrophils/100 WBC (Bld) 61.8 % Normal 43.0-75.0 [facility] Comment on above: Performed By: #### C BC #### [facility] [address] [place] [address] Dr. Jersey Butcher Platelet mean volume (Bld) [Entitic vol] 9.7 fL Normal 9.5-13.5 [facility] Comment on above: Performed By: #### C BC #### [facility] [address] [place] [address] Dr. Jersey Butcher PLT 246 103/ul Normal 150-450 [facility] Comment on above: Performed By: #### C BC #### [facility] [address] [place] [address] Dr. Jersey Butcher RBC 4.78 106/ul Normal 4.70-6.10 [facility] Comment on above: Performed By: #### C BC #### [facility] [address] [place] [address] Dr. Jersey Butcher WBC 6.5 103/ul Normal 4.0-11.0 [facility] Comment on above: Performed By: #### C BC #### [facility] [address] [address] [address] Jersey VANESSAO # 0.0 103/ul Normal 0.0-0.1 [facility] Comment on above: Performed By: #### C BC #### [facility] [address] [address] [address] Jersey Butcher Basophils/100 WBC (Bld) 0.3 % Normal 0.2-2.0 [facility] Comment on above: Performed By: #### C BC #### [facility] [address] [address] [address] Jersey Butcher EO # 0.1 103/ul Normal 0.0-0.7 [facility] Comment on above: Performed By: #### C BC #### [facility] [address] [place] [address] Dr. Jersey Butcher Eosinophils/100 WBC (Bld) 1.4 % Normal 0.9-7.0 [facility] Comment on above: Performed By: #### C BC #### [facility] [address] [place] [address] Dr. Jersey Butcher Erythrocyte distribution width (RBC) [Ratio] 11.9 % Normal 11.0-15.0 [facility] Comment on above: Performed By: #### C BC #### [facility] [address] [place] [address] Dr. Jersey Butcher Hematocrit (Bld) [Volume fraction] 42.5 % Normal 42.0-54.0 [facility] Comment on above: Performed By: #### C BC #### [facility] [address] [address] [address] Jersey Butcher Hemoglobin (Bld) [Mass/Vol] 14.7 g/dL Normal 14.0-18.0 [facility] Comment on above: Performed By: #### C BC #### [facility] [address] [place] [address] Dr. Jersey Butcher IG # 0.02 10e3/ul Normal 0.00-0.03 [facility] Comment on above: Performed By: #### C BC #### [facility] [address] [place] [address] Dr. Jersey Butcher IG % 0.3 % Normal 0.0-0.5 [facility] Comment on above: Performed By: #### C BC #### [facility] [address] [place] [address] Dr. Jersey Butcher LYMPH # 2.0 103/ul Normal 1.2-3.8 [facility] Comment on above: Performed By: #### C BC #### [facility] [address] [place] [address] Dr. Jersey Butcher Lymphocytes/100 WBC (Bld) 28.9 % Normal 20.5-60.0 [facility] Comment on above: Performed By: #### C BC #### [facility] [address] [place] [address] Dr. Jersey Butcher MANUAL DIFF REQ NO Normal [facility] Comment on above: Performed By: #### C BC #### [facility] [address] [place] [address] Dr. Jersey Butcher MCH (RBC) [Entitic mass] 31.8 pg Normal 25.9-34.0 [facility] Comment on above: Performed By: #### C BC #### [facility] [address] [place] [address] Dr. Jersey Butcher MCHC (RBC) [Mass/Vol] 34.6 g/dL Normal 29.9-35.2 [facility] Comment on above: Performed By: #### C BC #### [facility] [address] [place] [address] Dr. Jersey Butcher MCV (RBC) [Entitic vol] 92.0 fL Normal 80.0-94.0 [facility] Comment on above: Performed By: #### C BC #### [facility] [address] [place] [address] Dr. Jersey Butcher MONO # 1.1 103/ul Critically high 0.3-0.8 [facility] Comment on above: Performed By: #### C BC #### [facility] [address] [place] [address] Dr. Jersey Butcher Monocytes/100 WBC (Bld) 15.3 % Critically high 1.7-12.0 [facility] Comment on above: Performed By: #### C BC #### [facility] [address] [place] [address] Dr. Jersey Butcher NEUT # 3.7 103/ul Normal 1.4-6.5 [facility] Comment on above: Performed By: #### C BC #### [facility] [address] [place] [address] Dr. Jersey Butcher Neutrophils/100 WBC (Bld) 53.8 % Normal 43.0-75.0 [facility] Comment on above: Performed By: #### C BC #### [facility] [address] [place] [address] Dr. Jersey Butcher Platelet mean volume (Bld) [Entitic vol] 9.9 fL Normal 9.5-13.5 [facility] Comment on above: Performed By: #### C BC #### [facility] [address] [place] [address] Dr. Jersey Butcher PLT 268 103/ul Normal 150-450 [facility] Comment on above: Performed By: #### C BC #### [facility] [address] [place] [address] Dr. Jersey Butcher RBC 4.62 106/ul Critically low 4.70-6.10 [facility] Comment on above: Performed By: #### C BC #### [facility] [address] [place] [address] Dr. Jersey Butcher WBC 7.0 103/ul Normal 4.0-11.0 [facility] Comment on above: Performed By: #### C BC #### [facility] [address] [place] [address] Dr. Jersey Butcher Cov[facility])on SARS-CoV-2 (COVID-19) RNA PILI+probe Ql (Unsp spec) Not detected Normal NOT DETECTED [facility] Comment on above: Result Comment: [...] for this test is supported by the [place] of Health and Human Service's declaration that [...] #### T SH, BNP, HSTROPN, CMP #### [facility] [address] [place] [address] Dr. Jersey Butcher D-DIMERon 05-20-2022 D-DIMER 0.57 mg/L FEU Normal <=0.59 [facility] Comment on above: Performed By: #### D DIM #### [facility] [address] [place] [address] Dr. Jersey Butcher D-DIMER COMMENTS SEE BELOW Normal [facility] Comment on above: Result Comment: Incr [...] hospitalization. Performed By: #### D DIM #### [facility] [address] [place] [address] Dr. Jersey Butcher PROF CHEM 8 (BAS METB)on Anion gap [Moles/Vol] 6.5 mmol/L Normal [facility] Comment on above: Performed By: #### C BCMAN #### [facility] [address] [address] [address] Jersey Butcher Calcium [Mass/Vol] 8.8 mg/dL Normal 8.5-10.1 [facility] Comment on above: Performed By: #### C BCMAN #### [facility] [address] [address] [address] Jersey Butcher Chloride [Moles/Vol] 99 mmol/L Normal 98-107 [facility] Comment on above: Performed By: #### C BCMAN #### [facility] [address] [place] [address] Dr. Jersey Butcher CO2 [Moles/Vol] 35.8 mmol/L Critically high 21.0-32.0 [facility] Comment on above: Performed By: #### C BCROSIE #### [facility] [address] [place] [address] Dr. Jersey Butcher Creatinine [Mass/Vol] 0.84 mg/dL Normal 0.70-1.30 [facility] Comment on above: Performed By: #### C BCROSIE #### [facility] [address] [place] [address] Dr. Jersey Butcher EGFR-AF [place]LANDER >60 Normal >=60 [facility] Comment on above: Performed By: #### C BCROSIE #### [facility] [address] [place] [address] Dr. Jersey Butcher EGFR-NON AF [place]ER >60 Normal >=60 [facility] Comment on above: Performed By: #### C BCMAN #### [facility] [address] [place] [address] Dr. Jersey Butcher Glucose [Mass/Vol] 108 mg/dL Critically high 74-106 [facility] Comment on above: Performed By: #### C BCMAN #### [facility] [address] [place] [address] Dr. Jersey Butcher Potassium [Moles/Vol] 3.3 mmol/L Critically low 3.5-5.1 [facility] Comment on above: Performed By: #### C BCROSIE #### [facility] [address] [address] [address] Jersey Butcher Sodium [Moles/Vol] 138 mmol/L Normal 136-145 [facility] Comment on above: Performed By: #### C PHILMAN #### [facility] [address] [address] [address] Jersey Butcher Urea nitrogen [Mass/Vol] 17.0 mg/dL Normal 7.0-18.0 [facility] Comment on above: Performed By: #### C PHILMAN #### [facility] [address] [address] [address] Jersey Butcher Urea nitrogen/Creatinine [Mass ratio] 20.2 mg/mg Normal [facility] Comment on above: Performed By: #### C PHILMAN #### [facility] [address] [address] [address] Jersey Butcher Anion gap [Moles/Vol] 6.8 mmol/L Normal [facility] Comment on above: Performed By: #### C VDTBH #### [facility] [address] [address] [address] Jersey Butcher Calcium [Mass/Vol] 8.8 mg/dL Normal 8.5-10.1 [facility] Comment on above: Performed By: #### C VDTBH #### [facility] [address] [address] [address] Jersey Butcher Chloride [Moles/Vol] 98 mmol/L Normal 98-107 [facility] Comment on above: Performed By: #### C VDTBH #### [facility] [address] [address] [address] Jersey Butcher CO2 [Moles/Vol] 35.5 mmol/L Critically high 21.0-32.0 [facility] Comment on above: Performed By: #### C VDTBH #### [facility] [address] [address] [address] Jersey Butcher Creatinine [Mass/Vol] 0.95 mg/dL Normal 0.70-1.30 [facility] Comment on above: Performed By: #### C VDTBH #### [facility] [address] [address] [address] Jersey Butcher EGFR-AF [place]ER >60 Normal >=60 [facility] Comment on above: Performed By: #### C VDTBH #### [facility] [address] [address] [address] Jersey Butcher EGFR-NON AF [place]ER >60 Normal >=60 [facility] Comment on above: Performed By: #### C VDTBH #### [facility] [address] [address] [address] Jersey Butcher Glucose [Mass/Vol] 96 mg/dL Normal 74-106 [facility] Comment on above: Performed By: #### C VDTBH #### [facility] [address] [address] [address] Jersey Butcher Potassium [Moles/Vol] 3.3 mmol/L Critically low 3.5-5.1 [facility] Comment on above: Performed By: #### C VDTBH #### [facility] [address] [address] [address] Jersey Butcher Sodium [Moles/Vol] 137 mmol/L Normal 136-145 [facility] Comment on above: Performed By: #### C VDTBH #### [facility] [address] [address] [address] Jersey Butcher Urea nitrogen [Mass/Vol] 21.0 mg/dL Critically high 7.0-18.0 [facility] Comment on above: Performed By: #### C VDTBH #### [facility] [address] [address] [address] Jersey Butcher Urea nitrogen/Creatinine [Mass ratio] 22.1 mg/mg Normal [facility] Comment on above: Performed By: #### C VDTBH #### [facility] [address] [address] [address] Jersey Butcher TROPONIN, HIGH SENSITIVITYon 05-20-2022 HSTROP 56.7 pg/mL Normal 4.0-76.1 [facility] Comment on above: Result Comment: CUT- OFF POINTS HAVE BEEN ESTABLISHED BASED ON THE FOURTH UNIVERSAL DEFINITIONS OF MYOCARDIAL INFARCTION. THE UPPER REFERENCE LIMIT (URL) OF TROPONIN, DEFINED THE 99TH PERCENTILE OF cTnI DISTRIBUTION IN A REFERENCE POPULATION, HAS BEEN CONFIRMED THE DECISION THRESHOLD FOR [place] DIAGNOSIS. Performed By: #### [facility] #### [facility] [address] [address] [address] Jersey Butcher HSTROP 78.4 pg/mL Critically high 4.0-76.1 [facility] Comment on above: Result Comment: CUT- OFF POINTS HAVE BEEN ESTABLISHED BASED ON THE FOURTH UNIVERSAL DEFINITIONS OF MYOCARDIAL INFARCTION. THE UPPER REFERENCE LIMIT (URL) OF TROPONIN, DEFINED THE 99TH PERCENTILE OF cTnI DISTRIBUTION IN A REFERENCE POPULATION, HAS BEEN CONFIRMED THE DECISION THRESHOLD FOR [place] DIAGNOSIS. Performed By: #### C MADDIE #### [facility] [address] [address] [address] Jersey Butcher HSTROP 85.4 pg/mL Critically high 4.0-76.1 [facility] Comment on above: Result Comment: CUT- OFF POINTS HAVE BEEN ESTABLISHED BASED ON THE FOURTH UNIVERSAL DEFINITIONS OF MYOCARDIAL INFARCTION. THE UPPER REFERENCE LIMIT (URL) OF TROPONIN, DEFINED THE 99TH PERCENTILE OF cTnI DISTRIBUTION IN A REFERENCE POPULATION, HAS BEEN CONFIRMED THE DECISION THRESHOLD FOR [place] DIAGNOSIS. Performed By: #### C PHILKEVIN #### [facility] [address] [place] [address] Dr. Jersey Butcher XR CHEST 1 Von [...] SANDEEP MARY Date: 2022-05-20 00:59 Normal [facility] CBC AUTO DIFFon 02-04-2022 BASO # 0.0 103/ul Normal 0.0-0.1 [facility] Comment on above: Performed By: #### T SH, BNP, HSTROPN, CMP #### [facility] [address] [place] [address] Dr. Jersey Butcher Basophils/100 WBC (Bld) 0.2 % Normal 0.2-2.0 [facility] Comment on above: Performed By: #### T SH, BNP, HSTROPN, CMP #### [facility] [address] [place] [address] Dr. Jersey Butcher EO # 0.0 103/ul Normal 0.0-0.7 [facility] Comment on above: Performed By: #### T SH, BNP, HSTROPN, CMP #### [facility] [address] [place] [address] Dr. Jersey Butcher Eosinophils/100 WBC (Bld) 0.4 % Critically low 0.9-7.0 [facility] Comment on above: Performed By: #### T SH, BNP, HSTROPN, CMP #### [facility] [address] [place] [address] Dr. Jersey Butcher Erythrocyte distribution width (RBC) [Ratio] 12.4 % Normal 11.0-15.0 [facility] Comment on above: Performed By: #### T SH, BNP, HSTROPN, CMP #### [facility] [address] [place] [address] Dr. Jersey Butcher Hematocrit (Bld) [Volume fraction] 41.9 % Critically low 42.0-54.0 [facility] Comment on above: Performed By: #### T SH, BNP, HSTROPN, CMP #### [facility] [address] [place] [address] Dr. Jersey Butcher Hemoglobin (Bld) [Mass/Vol] 14.5 g/dL Normal 14.0-18.0 [facility] Comment on above: Performed By: #### T SH, BNP, HSTROPN, CMP #### [facility] [address] [place] [address] Dr. Jersey Butcher IG # 0.02 10e3/ul Normal 0.00-0.03 [facility] Comment on above: Performed By: #### T SH, BNP, HSTROPN, CMP #### [facility] [address] [place] [address] Dr. Jersey Butcher IG % 0.2 % Normal 0.0-0.5 [facility] Comment on above: Performed By: #### T SH, BNP, HSTROPN, CMP #### [facility] [address] [place] [address] Dr. Jersey Butcher LYMPH # 0.9 103/ul Critically low 1.2-3.8 [facility] Comment on above: Performed By: #### T SH, BNP, HSTROPN, CMP #### [facility] [address] [place] [address] Dr. Jersey Butcher Lymphocytes/100 WBC (Bld) 10.2 % Critically low 20.5-60.0 [facility] Comment on above: Performed By: #### T SH, BNP, HSTROPN, CMP #### [facility] [address] [place] [address] Dr. Jersey Butcher MANUAL DIFF REQ NO Normal [facility] Comment on above: Performed By: #### T SH, BNP, HSTROPN, CMP #### [facility] [address] [place] [address] Dr. Jersey Butcher MCH (RBC) [Entitic mass] 32.3 pg Normal 25.9-34.0 [facility] Comment on above: Performed By: #### T SH, BNP, HSTROPN, CMP #### [facility] [address] [place] [address] Dr. Jersey Butcher MCHC (RBC) [Mass/Vol] 34.6 g/dL Normal 29.9-35.2 [facility] Comment on above: Performed By: #### T SH, BNP, HSTROPN, CMP #### [facility] [address] [place] [address] Dr. Jersey Butcher MCV (RBC) [Entitic vol] 93.3 fL Normal 80.0-94.0 [facility] Comment on above: Performed By: #### T SH, BNP, HSTROPN, CMP #### [facility] [address] [place] [address] Dr. Jersey Butcher MONO # 0.8 103/ul Normal 0.3-0.8 [facility] Comment on above: Performed By: #### T SH, BNP, HSTROPN, CMP #### [facility] [address] [place] [address] Dr. Jersey Butcher Monocytes/100 WBC (Bld) 9.4 % Normal 1.7-12.0 [facility] Comment on above: Performed By: #### T SH, BNP, HSTROPN, CMP #### [facility] [address] [place] [address] Dr. Jersey Butcher NEUT # 6.6 103/ul Critically high 1.4-6.5 [facility] Comment on above: Performed By: #### T SH, BNP, HSTROPN, CMP #### [facility] [address] [place] [address] Dr. Jersey Butcher Neutrophils/100 WBC (Bld) 79.6 % Critically high 43.0-75.0 [facility] Comment on above: Performed By: #### T SH, BNP, HSTROPN, CMP #### [facility] [address] [place] [address] Dr. Jersey Butcher Platelet mean volume (Bld) [Entitic vol] 10.1 fL Normal 9.5-13.5 [facility] Comment on above: Performed By: #### T SH, BNP, HSTROPN, CMP #### [facility] [address] [place] [address] Dr. Jersey Butcher PLT 227 103/ul Normal 150-450 [facility] Comment on above: Performed By: #### T SH, BNP, HSTROPN, CMP #### [facility] [address] [place] [address] Dr. Jersey Butcher RBC 4.49 106/ul Critically low 4.70-6.10 [facility] Comment on above: Performed By: #### T SH, BNP, HSTROPN, CMP #### [facility] [address] [place] [address] Dr. Jersey Butcher WBC 8.3 103/ul Normal 4.0-11.0 [facility] Comment on above: Performed By: #### T SH, BNP, HSTROPN, CMP #### [facility] [address] [place] [address] Dr. Jersey Butcher Covid-19 PCR ([facility])on 01-17 SARS-CoV-2 (COVID-19) RNA PILI+probe Ql (Unsp spec) Detected Critically abnormal NOT DETECTED [facility] Comment on above: Result Comment: This test is not yet approved or cleared by the [place] FDA. When there are no FDA-approved or cleared tests available, and other criteria are met, FDA can make tests available under an emergency access mechanism called an Emergency Use Authorization (EUA). The EUA for this test is supported by the [employer] of Health and Human Service's declaration that [...] used). Performed By: #### C VDTB #### [facility] [address] [place] [address] Dr. Jersey Butcher INFLUENZA A AND B AGon 02-04 INFLUENZA A AG Negative Normal NEGATIVE SEE COMMENT [facility] Comment on above: Performed By: #### C MADDIE #### [facility] [address] [place] [address] Dr. Jersey Butcher INFLUENZA B AG Negative Normal NEGATIVE SEE COMMENT [facility] Comment on above: Performed By: #### C MADDIE #### [facility] [address] [place] [address] Dr. Jersey Butcher INTERNAL CONTROLS Within Normal Limits Normal Wi thin Normal Limits [facility] Comment on above: Performed By: #### C MADDIE #### [facility] [address] [place] [address] Dr. Jersey Butcher PROF CHEM 8 (BAS METB)on Anion gap [Moles/Vol] 5.9 mmol/L Normal [facility] Comment on above: Performed By: #### T SH, BNP, HSTROPN, CMP #### [facility] [address] [address] [address] Jersey Butcher Calcium [Mass/Vol] 8.5 mg/dL Normal 8.5-10.1 [facility] Comment on above: Performed By: #### T SH, BNP, HSTROPN, CMP #### [facility] [address] [address] [address] Jersey Butcher Chloride [Moles/Vol] 96 mmol/L Critically low 98-107 [facility] Comment on above: Performed By: #### T SH, BNP, HSTROPN, CMP #### [facility] [address] [place] [address] Dr. Jersey Butcher CO2 [Moles/Vol] 33.4 mmol/L Critically high 21.0-32.0 [facility] Comment on above: Performed By: #### T SH, BNP, HSTROPN, CMP #### [facility] [address] [address] [address] Jersey Butcher Creatinine [Mass/Vol] 1.17 mg/dL Normal 0.70-1.30 [facility] Comment on above: Performed By: #### T SH, BNP, HSTROPN, CMP #### [facility] [address] [address] [address] Jersey Butcher EGFR-AF COOK ISLANDER >60 Normal >=60 [facility] Comment on above: Performed By: #### T SH, BNP, HSTROPN, CMP #### [facility] [address] [address] [address] Jersey Butcher EGFR-NON AF [place]OOK ISLANDER >60 Normal >=60 [facility] Comment on above: Performed By: #### T SH, BNP, HSTROPN, CMP #### [facility] [address] [address] [address] Jersey Butcher Glucose [Mass/Vol] 141 mg/dL Critically high 74-106 T [facility] Comment on above: Performed By: #### T SH, BNP, HSTROPN, CMP #### [facility] [address] [address] [address] Jersey Butcher Potassium [Moles/Vol] 3.3 mmol/L Critically low 3.5-5.1 [facility] Comment on above: Performed By: #### T SH, BNP, HSTROPN, CMP #### [facility] [address] [address] [address] Jersey Butcher Sodium [Moles/Vol] 132 mmol/L Critically low 136-145 [facility] Comment on above: Performed By: #### T SH, BNP, HSTROPN, CMP #### [facility] [address] [place] [address] Dr. Jersey Butcher Urea nitrogen [Mass/Vol] 15.0 mg/dL Normal 7.0-18.0 [facility] Comment on above: Performed By: #### T SH, BNP, HSTROPN, CMP #### [facility] [address] [place] [address] Dr. Jersey Butcher Urea nitrogen/Creatinine [Mass ratio] 12.8 mg/mg Normal [facility] Comment on above: Performed By: #### T SH, BNP, HSTROPN, CMP #### [facility] [address] [place] [address] Dr. Jersey Butcher XR CHEST 1 Von [...] Nery MCKEON Date: 2022-02-04 01:58 Normal [facility] XR CSPINE 2_3 VIEWSon 2021 XR CSPINE [...] MARCO ANTONIO HALL Date: 2022-01-26 15:50 Normal [facility] Office Visit (Cardiology)on 01-12-2022 Follow-up visit Diagnoses/Problems Assessed Coronary artery disease without angina pectoris (414.00) (I25.10) Normal echocardiogram (V72.85) Hypertension (401.9) (I10) Hyperlipidemia (272.4) (E78.5) Sleep apnea (780.57) (G47.30) Morbid obesity with BMI of 50.0-59.9, adult (278.01,V85.43) (E66.01,Z68.43) Orders Morbid obesity with BMI of 50.0-59.9, adult Healthy Weight Tips; Status:Complete; Done: [id number] SocHx: Former smoker Tobacco Use Screening; Status:Complete; Done: [id number] Patient Instructions Please bring all medicines, vitamins, [...] the office if new symptoms arise. Dr. Blanco as scheduled Discussed the dynamic nature of coronary artery disease and the importance of seeking medical attention if new symptoms arise. Chief Complaint I am getting weight loss surgery ELYSE DUONG is being seen for pre-operative clearance. Last evaluated in clinic Dr. Blanco Mar 2021. Since that time had uneventful meniscal repair with MACE. Patient presents to [facility] to obtain cardiac risk stratification prior to a weight loss surgery (no details of procedure needed) Surgeon: unknown Planned date: none to date Prior cardiovascular history: 1. Coronary Artery Disease: 2014 Cardiac cath: LAD normal Ramus normal CX PRESS BREAKER at AV groove RCA patent stent p/m [...] Major clinical markers: -Acute coronary syndrome or [place] within 30 days: no -Decompensated heart failure: no -Significant arrhythmia: no -Severe valvular heart disease: no 2. Intermediate clinical markers -History of ischemic heart disease (prior [place], current chest pain secondary to ischemia, use [...] Social Hist (more content not included)... Normal [employer] Tobacco Screening.on 022 Adult depression screening assessment No [facility] [employer] DO Work Phone: Tobacco use status CPHS b) No [facility] 600 DO Work Phone: CBC AUTO DIFFon 01-11-2022 BASO # 0.0 103/ul Normal 0.0-0.1 [facility] Comment on above: Performed By: #### T SH, BNP, HSTROPN, CMP #### [facility] [address] [place] [address] Dr. Jersey Butcher Basophils/100 WBC (Bld) 0.4 % Normal 0.2-2.0 [facility] Comment on above: Performed By: #### T SH, BNP, HSTROPN, CMP #### [facility] [address] [address] [address] Jersey Butcher EO # 0.1 103/ul Normal 0.0-0.7 [facility] Comment on above: Performed By: #### T SH, BNP, HSTROPN, CMP #### [facility] [address] [place] [address] Dr. Jersey Butcher Eosinophils/100 WBC (Bld) 1.6 % Normal 0.9-7.0 [facility] Comment on above: Performed By: #### T SH, BNP, HSTROPN, CMP #### [facility] [address] [place] [address] Dr. Jersey Butcher Erythrocyte distribution width (RBC) [Ratio] 12.3 % Normal 11.0-15.0 [facility] Comment on above: Performed By: #### T SH, BNP, HSTROPN, CMP #### [facility] [address] [place] [address] Dr. Jersey Butcher Hematocrit (Bld) [Volume fraction] 46.4 % Normal 42.0-54.0 [facility] Comment on above: Performed By: #### T SH, BNP, HSTROPN, CMP #### [facility] [address] [place] [address] Dr. Jersey Butcher Hemoglobin (Bld) [Mass/Vol] 15.8 g/dL Normal 14.0-18.0 [facility] Comment on above: Performed By: #### T SH, BNP, HSTROPN, CMP #### [facility] [address] [place] [address] Dr. Jersey Butcher IG # 0.02 10e3/ul Normal 0.00-0.03 [facility] Comment on above: Performed By: #### T SH, BNP, HSTROPN, CMP #### [facility] [address] [place] [address] Dr. Jersey Butcher IG % 0.3 % Normal 0.0-0.5 [facility] Comment on above: Performed By: #### T SH, BNP, HSTROPN, CMP #### [facility] [address] [place] [address] Dr. Jersey Butcher LYMPH # 1.5 103/ul Normal 1.2-3.8 [facility] Comment on above: Performed By: #### T SH, BNP, HSTROPN, CMP #### [facility] [address] [place] [address] Dr. Jersey Butcher Lymphocytes/100 WBC (Bld) 21.7 % Normal 20.5-60.0 [facility] Comment on above: Performed By: #### T SH, BNP, HSTROPN, CMP #### [facility] [address] [place] [address] Dr. Jersey Butcher MANUAL DIFF REQ NO Normal [facility] Comment on above: Performed By: #### T SH, BNP, HSTROPN, CMP #### [facility] [address] [place] [address] Dr. Jersey Butcher MCH (RBC) [Entitic mass] 31.5 pg Normal 25.9-34.0 [facility] Comment on above: Performed By: #### T SH, BNP, HSTROPN, CMP #### [facility] [address] [place] [address] Dr. Jersey Butcher MCHC (RBC) [Mass/Vol] 34.1 g/dL Normal 29.9-35.2 [facility] Comment on above: Performed By: #### T SH, BNP, HSTROPN, CMP #### [facility] [address] [place] [address] Dr. Jersey Butcher MCV (RBC) [Entitic vol] 92.6 fL Normal 80.0-94.0 [facility] Comment on above: Performed By: #### T SH, BNP, HSTROPN, CMP #### [facility] [address] [place] [address] Dr. Jersey Butcher MONO # 0.7 103/ul Normal 0.3-0.8 [facility] Comment on above: Performed By: #### T SH, BNP, HSTROPN, CMP #### [facility] [address] [place] [address] Dr. Jersey Butcher Monocytes/100 WBC (Bld) 9.7 % Normal 1.7-12.0 [facility] Comment on above: Performed By: #### T SH, BNP, HSTROPN, CMP #### [facility] [address] [place] [address] Dr. Jersey Butcher NEUT # 4.6 103/ul Normal 1.4-6.5 [facility] Comment on above: Performed By: #### T SH, BNP, HSTROPN, CMP #### [facility] [address] [place] [address] Dr. Jersey Butcher Neutrophils/100 WBC (Bld) 66.3 % Normal 43.0-75.0 [facility] Comment on above: Performed By: #### T SH, BNP, HSTROPN, CMP #### [facility] [address] [place] [address] Dr. Jersey Butcher Platelet mean volume (Bld) [Entitic vol] 9.6 fL Normal 9.5-13.5 [facility] Comment on above: Performed By: #### T SH, BNP, HSTROPN, CMP #### [facility] [address] [place] [address] Dr. Jersey Butcher PLT 270 103/ul Normal 150-450 [facility] Comment on above: Performed By: #### T SH, BNP, HSTROPN, CMP #### [facility] [address] [place] [address] Dr. Jersey Butcher RBC 5.01 106/ul Normal 4.70-6.10 [facility] Comment on above: Performed By: #### T SH, BNP, HSTROPN, CMP #### [facility] [address] [place] [address] Dr. Jersey Butcher WBC 6.9 103/ul Normal 4.0-11.0 [facility] Comment on above: Performed By: #### T SH, BNP, HSTROPN, CMP #### [facility] [address] [place] [address] Dr. Jersey Butcher GLYCOHEMOGLOBIN A1Con 2021 ADA RECOMMENDATION SEE BELOW Normal [facility] Comment on above: Result Comment: ADA RECOMMENDED LIMIT 4.0 - 6.0 ADA THERAPEUTIC TARGET < 7.0 ACTION SUGGESTED > 7.0 Performed By: #### T SH, BNP, HSTROPN, CMP #### [facility] [address] [place] [address] Dr. Jersey Butcher Glucose [Mass/Vol] 117 mg/dL Normal [facility] Comment on above: Performed By: #### T SH, BNP, HSTROPN, CMP #### [facility] [address] [address] [address] Jersey Butcher HbA1c (Bld) [Mass fraction] 5.7 % Normal 4.5-6.2 [facility] Comment on above: Performed By: #### T SH, BNP, HSTROPN, CMP #### [facility] [address] [address] [address] Jersey Butcher LIPID PROFILEon 01-11-2022 CHOL-HDL RATIO NORM SEE BELOW Normal [facility] Comment on above: Result Comment: 3.3 - 4.4 LOW RISK 4.4 - 7.1 AVERAGE RISK 7.1 - 11.0 MODERATE RISK >11.0 HIGH RISK Performed By: #### C MADDIE #### [facility] [address] [place] [address] Dr. Jersey Butcher Cholesterol [Mass/Vol] 133 mg/dL Normal <=200 [facility] Comment on above: Performed By: #### C MADDIE #### [facility] [address] [place] [address] Dr. Jersey Butcher Cholesterol in HDL [Mass/Vol] 54 mg/dL Normal 40-60 [facility] Comment on above: Performed By: #### C MADDIE #### [facility] [address] [place] [address] Dr. Jersey Butcher Cholesterol in LDL [Mass/Vol] 52.0 mg/dL Normal [facility] Comment on above: Performed By: #### C MADDIE #### [facility] [address] [address] [address] Jersey Butcher Cholesterol.total/C holesterol in HDL [Mass ratio] 2.5 {ratio} Normal [facility] Comment on above: Performed By: #### C MADDIE #### [facility] [address] [place] [address] Dr. Jersey Butcher HDL NORMAL > or = 60 mg/dl - LO W CARDIOVASCULAR RISK <40 mg/dl - HIGH CARDIOVASCULAR RISK Normal [facility] Comment on above: Performed By: #### C MADDIE #### [facility] [address] [address] [address] Jersey Butcher LDL CALC NORMAL SEE BELOW Normal [facility] Comment on above: Result Comment: <100 mg/dl OPTIMAL 100 - 129 mg/dl NEAR OR ABOVE OPTIMAL 130 - 159 mg/dl BORDERLINE HIGH 160 - 189 mg/dl HIGH >190 mg/dl VERY HIGH Performed By: #### C MADDIE #### [facility] [address] [address] [address] Jersey Butcher Triglyceride [Mass/Vol] 135 mg/dL Normal <=150 [facility] Comment on above: Performed By: #### C MADDIE #### [facility] [address] [address] [address] Jersey Butcher VLDL CALC 27.0 mg/dL Normal [facility] Comment on above: Performed By: #### C MADDIE #### [facility] [address] [address] [address] Jersey Butcher PROF 14(COMP METB)on 022 Albumin [Mass/Vol] 3.5 g/dL Normal 3.4-5.0 [facility] Comment on above: Performed By: #### C MADDIE #### [facility] [address] [address] [address] Jersey Butcher Albumin/Globulin [Mass ratio] 1.0 {ratio} Normal [facility] Comment on above: Performed By: #### C MADDIE #### [facility] [address] [address] [address] Jersey Butcher ALP [Catalytic activity/Vol] 114 U/L Normal 46-116 [facility] Comment on above: Performed By: #### C MADDIE #### [facility] [address] [address] [address] Jersey Butcher ALT [Catalytic activity/Vol] 64 U/L Critically high 16-63 [facility] Comment on above: Performed By: #### C MADDIE #### [facility] [address] [address] [address] Jersey Butcher Anion gap [Moles/Vol] 9.1 mmol/L Normal [facility] Comment on above: Performed By: #### C MADDIE #### [facility] [address] [address] [address] Jersey Butcher AST [Catalytic activity/Vol] 81 U/L Critically high 15-37 [facility] Comment on above: Performed By: #### C BCMAN #### [facility] [address] [address] [address] Jersey Butcher Bilirubin [Mass/Vol] 0.9 mg/dL Normal 0.2-1.0 [facility] Comment on above: Performed By: #### C BCMAN #### [facility] [address] [address] [address] Jersey Butcher Calcium [Mass/Vol] 9.0 mg/dL Normal 8.5-10.1 [facility] Comment on above: Performed By: #### C BCROSIE #### [facility] [address] [place] [address] Dr. Jersey Butcher Chloride [Moles/Vol] 99 mmol/L Normal 98-107 [facility] Comment on above: Performed By: #### C BCROSIE #### [facility] [address] [address] [address] Jersey Butcher CO2 [Moles/Vol] 34.9 mmol/L Critically high 21.0-32.0 [facility] Comment on above: Performed By: #### C BCROSIE #### [facility] [address] [address] [address] Jersey Butcher Creatinine [Mass/Vol] 1.04 mg/dL Normal 0.70-1.30 [facility] Comment on above: Performed By: #### C BCROSIE #### [facility] [address] [address] [address] Jersey Butcher EGFR-AF [place]OOK ISLANDER >60 Normal >=60 [facility] Comment on above: Performed By: #### C BCMAN #### [facility] [address] [address] [address] Jersey Butcher EGFR-NON AF COOK ISLANDER >60 Normal >=60 [facility] Comment on above: Performed By: #### C BCMAN #### [facility] [address] [address] [address] Jersey Butcher Globulin (S) [Mass/Vol] 3.5 g/dL Normal [facility] Comment on above: Performed By: #### C MADDIE #### [facility] [address] [address] [address] Jersey Butcher Glucose [Mass/Vol] 101 mg/dL Normal 74-106 [facility] Comment on above: Performed By: #### C MADDIE #### [facility] [address] [address] [address] Jersey Butcher Potassium [Moles/Vol] 4.0 mmol/L Normal 3.5-5.1 [facility] Comment on above: Performed By: #### C MADDIE #### [facility] [address] [address] [address] Jersey Butcher Protein [Mass/Vol] 7.0 g/dL Normal 6.4-8.2 [facility] Comment on above: Performed By: #### C MADDIE #### [facility] [address] [address] [address] Jersey Butcher Sodium [Moles/Vol] 139 mmol/L Normal 136-145 [facility] Comment on above: Performed By: #### C MADDIE #### [facility] [address] [address] [address] Jersey Butcher Urea nitrogen [Mass/Vol] 17.0 mg/dL Normal 7.0-18.0 [facility] Comment on above: Performed By: #### C MADDIE #### [facility] [address] [address] [address] Jersey Butcher Urea nitrogen/Creatinine [Mass ratio] 16.3 mg/mg Normal [facility] Comment on above: Performed By: #### C MADDIE #### [facility] [address] [address] [address] LSPINE WO CONon [...] DONG BUNDY Date: 2021-12-10 22:56 Normal [facility] CBC AUTO DIFFon 11-07-2021 BASO # 0.0 103/ul Normal 0.0-0.1 [facility] Comment on above: Performed By: #### T SH, BNP, HSTROPN, CMP #### [facility] [address] [address] [address] Jersey Butcher Basophils/100 WBC (Bld) 0.4 % Normal 0.2-2.0 [facility] Comment on above: Performed By: #### T SH, BNP, HSTROPN, CMP #### [facility] [address] [address] [address] Jersey Butcher EO # 0.1 103/ul Normal 0.0-0.7 [facility] Comment on above: Performed By: #### T SH, BNP, HSTROPN, CMP #### [facility] [address] [address] [address] Jersey Butcher Eosinophils/100 WBC (Bld) 1.1 % Normal 0.9-7.0 [facility] Comment on above: Performed By: #### T SH, BNP, HSTROPN, CMP #### [facility] [address] [address] [address] Jersey Butcher Erythrocyte distribution width (RBC) [Ratio] 12.3 % Normal 11.0-15.0 [facility] Comment on above: Performed By: #### T SH, BNP, HSTROPN, CMP #### [facility] [address] [place] [address] Dr. Jersey Butcher Hematocrit (Bld) [Volume fraction] 44.9 % Normal 42.0-54.0 [facility] Comment on above: Performed By: #### T SH, BNP, HSTROPN, CMP #### [facility] [address] [place] [address] Dr. Jersey Butcher Hemoglobin (Bld) [Mass/Vol] 15.2 g/dL Normal 14.0-18.0 [facility] Comment on above: Performed By: #### T SH, BNP, HSTROPN, CMP #### [facility] [address] [place] [address] Dr. Jersey Butcher IG # 0.02 10e3/ul Normal 0.00-0.03 [facility] Comment on above: Performed By: #### T SH, BNP, HSTROPN, CMP #### [facility] [address] [place] [address] Dr. Jersey Butcher IG % 0.2 % Normal 0.0-0.5 [facility] Comment on above: Performed By: #### T SH, BNP, HSTROPN, CMP #### [facility] [address] [place] [address] Dr. Jersey Butcher LYMPH # 1.8 103/ul Normal 1.2-3.8 [facility] Comment on above: Performed By: #### T SH, BNP, HSTROPN, CMP #### [facility] [address] [place] [address] Dr. Jersey Butcher Lymphocytes/100 WBC (Bld) 22.5 % Normal 20.5-60.0 [facility] Comment on above: Performed By: #### T SH, BNP, HSTROPN, CMP #### [facility] [address] [place] [address] Dr. Jersey Butcher MANUAL DIFF REQ NO Normal [facility] Comment on above: Performed By: #### T SH, BNP, HSTROPN, CMP #### [facility] [address] [place] [address] Dr. Jersey Butcher MCH (RBC) [Entitic mass] 31.6 pg Normal 25.9-34.0 [facility] Comment on above: Performed By: #### T SH, BNP, HSTROPN, CMP #### [facility] [address] [place] [address] Dr. Jersey Butcher MCHC (RBC) [Mass/Vol] 33.9 g/dL Normal 29.9-35.2 [facility] Comment on above: Performed By: #### T SH, BNP, HSTROPN, CMP #### [facility] [address] [place] [address] Dr. Jersey Butcher MCV (RBC) [Entitic vol] 93.3 fL Normal 80.0-94.0 [facility] Comment on above: Performed By: #### T SH, BNP, HSTROPN, CMP #### [facility] [address] [place] [address] Dr. Jersey Butcher MONO # 0.9 103/ul Critically high 0.3-0.8 [facility] Comment on above: Performed By: #### T SH, BNP, HSTROPN, CMP #### [facility] [address] [place] [address] Dr. Jersey Butcher Monocytes/100 WBC (Bld) 11.1 % Normal 1.7-12.0 [facility] Comment on above: Performed By: #### T SH, BNP, HSTROPN, CMP #### [facility] [address] [place] [address] Dr. Jersey Butcher NEUT # 5.2 103/ul Normal 1.4-6.5 [facility] Comment on above: Performed By: #### T SH, BNP, HSTROPN, CMP #### [facility] [address] [place] [address] Dr. Jersey Butcher Neutrophils/100 WBC (Bld) 64.7 % Normal 43.0-75.0 [facility] Comment on above: Performed By: #### T SH, BNP, HSTROPN, CMP #### [facility] [address] [address] [address] Jersey Butcher Platelet mean volume (Bld) [Entitic vol] 10.1 fL Normal 9.5-13.5 [facility] Comment on above: Performed By: #### T SH, BNP, HSTROPN, CMP #### [facility] [address] [address] [address] Jersey Butcher PLT 265 103/ul Normal 150-450 [facility] Comment on above: Performed By: #### T SH, BNP, HSTROPN, CMP #### [facility] [address] [place] [address] Dr. Jersey Butcher RBC 4.81 106/ul Normal 4.70-6.10 [facility] Comment on above: Performed By: #### T SH, BNP, HSTROPN, CMP #### [facility] [address] [place] [address] Dr. Jersey Butcher WBC 8.1 103/ul Normal 4.0-11.0 [facility] Comment on above: Performed By: #### T SH, BNP, HSTROPN, CMP #### [facility] [address] [place] [address] CHEST WO CONon [...] EUSEBIA VICTORIA Date: 2021-11-06 23:56 Normal [facility] PROF 14(COMP METB)on 022 Albumin [Mass/Vol] 3.5 g/dL Normal 3.4-5.0 [facility] Comment on above: Performed By: #### C VDTBH #### [facility] [address] [place] [address] Dr. Jersey Butcher Albumin/Globulin [Mass ratio] 1.0 {ratio} Normal [facility] Comment on above: Performed By: #### C VDTBH #### [facility] [address] [place] [address] Dr. Jersey Butcher ALP [Catalytic activity/Vol] 117 U/L Critically high 46-116 [facility] Comment on above: Performed By: #### C VDTBH #### [facility] [address] [address] [address] Jersey Butcher ALT [Catalytic activity/Vol] 39 U/L Normal 16-63 [facility] Comment on above: Performed By: #### C VDTBH #### [facility] [address] [address] [address] Jersey Butcher Anion gap [Moles/Vol] 9.3 mmol/L Normal [facility] Comment on above: Performed By: #### C VDTBH #### [facility] [address] [place] [address] Dr. Jersey Butcher AST [Catalytic activity/Vol] 20 U/L Normal 15-37 [facility] Comment on above: Performed By: #### C VDTBH #### [facility] [address] [place] [address] Dr. Jersey Butcher Bilirubin [Mass/Vol] 0.4 mg/dL Normal 0.2-1.0 [facility] Comment on above: Performed By: #### C VDTBH #### [facility] [address] [place] [address] Dr. Jersey Butcher Calcium [Mass/Vol] 9.1 mg/dL Normal 8.5-10.1 [facility] Comment on above: Performed By: #### C VDTBH #### [facility] [address] [place] [address] Dr. Jersey Butcher Chloride [Moles/Vol] 99 mmol/L Normal 98-107 [facility] Comment on above: Performed By: #### C VDTBH #### [facility] [address] [place] [address] Dr. Jersey Butcher CO2 [Moles/Vol] 33.2 mmol/L Critically high 21.0-32.0 [facility] Comment on above: Performed By: #### C VDTBH #### [facility] [address] [place] [address] Dr. eJrsey Butcher Creatinine [Mass/Vol] 1.21 mg/dL Normal 0.70-1.30 [facility] Comment on above: Performed By: #### C VDTBH #### [facility] [address] [place] [address] Dr. Jersey Butcher EGFR-AF COOK ISLANDER >60 Normal >=60 [facility] Comment on above: Performed By: #### C VDTBH #### [facility] [address] [place] [address] Dr. Jersey Butcher EGFR-NON AF [place] ISLANDER >60 Normal >=60 [facility] Comment on above: Performed By: #### C VDTBH #### [facility] [address] [place] [address] Dr. Jersey Butcher Globulin (S) [Mass/Vol] 3.5 g/dL Normal [facility] Comment on above: Performed By: #### C VDTBH #### [facility] [address] [place] [address] Dr. Jersey Butcher Glucose [Mass/Vol] 102 mg/dL Normal 74-106 [facility] Comment on above: Performed By: #### C VDTBH #### [facility] [address] [place] [address] Dr. Jersey Butcher Potassium [Moles/Vol] 3.5 mmol/L Normal 3.5-5.1 [facility] Comment on above: Performed By: #### C VDTBH #### [facility] [address] [place] [address] Dr. Jersey Butcher Protein [Mass/Vol] 7.0 g/dL Normal 6.4-8.2 [facility] Comment on above: Performed By: #### C VDTBH #### [facility] [address] [place] [address] Dr. Jersey Butcher Sodium [Moles/Vol] 138 mmol/L Normal 136-145 [facility] Comment on above: Performed By: #### C VDTBH #### [facility] [address] [place] [address] Dr. Jersey Butcher Urea nitrogen [Mass/Vol] 19.0 mg/dL Critically high 7.0-18.0 [facility] Comment on above: Performed By: #### C VDTBH #### [facility] [address] [place] [address] Dr. Jersey Butcher Urea nitrogen/Creatinine [Mass ratio] 15.7 mg/mg Normal [facility] Comment on above: Performed By: #### C VDTBH #### [facility] [address] [place] [address] Dr. Jersey Butcher XR CHEST 1 Von [...] FRIEDMAN Date: 2021-11-06 22:36 Normal [facility] IO EKG Electrocardiogram- 12 Leadon 04-11-2021 IO EKG Electrocardiogram- 12 Lead See Scanned Document [facility] io [facility] [employer] 600 DO Work Phone: Tobacco Screening.on 021 Fall risk assessment a) No falls within the last year [facility] [employer] 600 DO Work Phone: Tobacco use status [facility] b) No [facility] [employer] [employer] 600 DO Work Phone: Vital Signs Date Time Vital Sign Value Performing Clinician Facility 12-22-2024 14:33-0400 Body mass index (BMI) [Ratio] 55.01 kg/m2 Eusebia Terrell SOLID PROPELLANT PROCESSOR Work Phone: [facility] 12-22-2024 14:33-0400 Body temperature 97.59 [degF] Eusebia Terrell SOLID PROPELLANT PROCESSOR Work Phone: [facility] 12-22-2024 14:33-0400 Body weight 164.11 kg Eusebia Terrell SOLID PROPELLANT PROCESSOR Work Phone: [facility] 12-22-2024 14:33-0400 Diastolic blood pressure 50 mm[Hg] Eusebia Terrell SOLID PROPELLANT PROCESSOR Work Phone: [facility] 12-22-2024 14:33-0400 Heart rate 90 /min Eusebia Terrell SOLID PROPELLANT PROCESSOR Work Phone: [facility] 12-22-2024 14:33-0400 Respiratory rate 20 /min Eusebia Terrell SOLID PROPELLANT PROCESSOR Work Phone: [facility] 12-22-2024 14:33-0400 SaO2% (BldA) [Mass fraction] 93 % Eusebia Terrell SOLID PROPELLANT PROCESSOR Work Phone: [facility] 12-22-2024 14:33-0400 Systolic blood pressure 80 mm[Hg] Eusebia Terrell SOLID PROPELLANT PROCESSOR Work Phone: [facility] 10-15-2024 09:18-0400 Body height 172.7 cm Madison Blanco MD Work Phone: [facility] 10-15-2024 09:18-0400 Body mass index (BMI) [Ratio] 54.89 kg/m2 Madison Blanco MD Work Phone: [facility] 10-15-2024 09:18-0400 Body weight 163.75 kg Madison Blanco MD Work Phone: [facility] 10-15-2024 09:18-0400 Diastolic blood pressure 74 mm[Hg] Madison Blanco MD Work Phone: [facility] 10-15-2024 09:18-0400 Heart rate 64 /min Madison Blanco MD Work Phone: [facility] 10-15-2024 09:18-0400 Systolic blood pressure 112 mm[Hg] Madison Blanco MD Work Phone: [facility] 09-18-2024 11:30-0400 Diastolic blood pressure 60 mm[Hg] Eusebia Terrell SOLID PROPELLANT PROCESSOR Work Phone: [facility] 09-18-2024 11:30-0400 Systolic blood pressure 88 mm[Hg] Eusebia Terrell SOLID PROPELLANT PROCESSOR Work Phone: [facility] 09-18-2024 11:06-0400 Body mass index (BMI) [Ratio] 54.49 kg/m2 Eusebia Terrell SOLID PROPELLANT PROCESSOR Work Phone: [facility] 09-18-2024 11:06-0400 Body temperature 98.4 [degF] Eusebia Aichholz SOLID PROPELLANT PROCESSOR Work Phone: [facility] 09-18-2024 11:06-0400 Body weight 162.57 kg Eusebia Aichholz SOLID PROPELLANT PROCESSOR Work Phone: [facility] 09-18-2024 11:06-0400 Heart rate 67 /min Eusebia Aichholz SOLID PROPELLANT PROCESSOR Work Phone: [facility] 09-18-2024 11:06-0400 Respiratory rate 22 /min Eusebia Aichholz SOLID PROPELLANT PROCESSOR Work Phone: [facility] 09-18-2024 11:06-0400 SaO2% (BldA) [Mass fraction] 92 % Eusebia Aichholz SOLID PROPELLANT PROCESSOR Work Phone: [facility] 06-19-2024 09:57-0500 Body height 172.7 cm Eusebia Aichholz SOLID PROPELLANT PROCESSOR Work Phone: [facility] 06-19-2024 09:57-0500 Body mass index (BMI) [Ratio] 55.86 kg/m2 Eusebia Aichholz SOLID PROPELLANT PROCESSOR Work Phone: [facility] 06-19-2024 09:57-0500 Body temperature 97.81 [degF] Eusebia Aichholz SOLID PROPELLANT PROCESSOR Work Phone: [facility] 06-19-2024 09:57-0500 Body weight 166.65 kg Eusebia Aichholz SOLID PROPELLANT PROCESSOR Work Phone: [facility] 06-19-2024 09:57-0500 Diastolic blood pressure 68 mm[Hg] Eusebia Aichholz SOLID PROPELLANT PROCESSOR Work Phone: [facility] 06-19-2024 09:57-0500 Heart rate 68 /min Eusebia Aichholz SOLID PROPELLANT PROCESSOR Work Phone: [facility] 06-19-2024 09:57-0500 Respiratory rate 24 /min Eusebia Aichholz SOLID PROPELLANT PROCESSOR Work Phone: [facility] 06-19-2024 09:57-0500 SaO2% (BldA) [Mass fraction] 93 % Eusebia Socorrohholz SOLID PROPELLANT PROCESSOR Work Phone: [facility] 06-19-2024 09:57-0500 Systolic blood pressure 88 mm[Hg] Eusebia Aichholz SOLID PROPELLANT PROCESSOR Work Phone: [facility] 04-09-2024 16:05-0400 Body mass index (BMI) [Ratio] 55.71 kg/m2 Eusebia Aichholz SOLID PROPELLANT PROCESSOR Work Phone: [facility] 04-09-2024 16:05-0400 Body temperature 98.1 [degF] Eusebia Aichholz SOLID PROPELLANT PROCESSOR Work Phone: [facility] 04-09-2024 16:05-0400 Body weight 166.2 kg Eusebia Aichholz SOLID PROPELLANT PROCESSOR Work Phone: [facility] 04-09-2024 16:05-0400 Diastolic blood pressure 82 mm[Hg] Eusebia Aichholz SOLID PROPELLANT PROCESSOR Work Phone: [facility] 04-09-2024 16:05-0400 Heart rate 95 /min Eusebia Aichholz SOLID PROPELLANT PROCESSOR Work Phone: [facility] 04-09-2024 16:05-0400 Respiratory rate 19 /min Eusebia Aichholz SOLID PROPELLANT PROCESSOR Work Phone: [facility] 04-09-2024 16:05-0400 SaO2% (BldA) [Mass fraction] 93 % Eusebia Aichholz SOLID PROPELLANT PROCESSOR Work Phone: [facility] 04-09-2024 16:05-0400 Systolic blood pressure 120 mm[Hg] Eusebia Aichholz SOLID PROPELLANT PROCESSOR Work Phone: [facility] 02-06-2024 09:06-0400 Body height 172.7 cm Eusebia Aichholz SOLID PROPELLANT PROCESSOR Work Phone: [facility] 02-06-2024 09:06-0400 Body mass index (BMI) [Ratio] 56.14 kg/m2 Eusebia Aichholz SOLID PROPELLANT PROCESSOR Work Phone: [facility] 02-06-2024 09:06-0400 Body temperature 98.1 [degF] Eusebia Terrell SOLID PROPELLANT PROCESSOR Work Phone: [facility] 02-06-2024 09:06-0400 Body weight 167.47 kg Eusebia Terrell SOLID PROPELLANT PROCESSOR Work Phone: [facility] 02-06-2024 09:06-0400 Diastolic blood pressure 76 mm[Hg] Eusebia Terrell SOLID PROPELLANT PROCESSOR Work Phone: [facility] 02-06-2024 09:06-0400 Heart rate 95 /min Eusebia Terrell SOLID PROPELLANT PROCESSOR Work Phone: [facility] 02-06-2024 09:06-0400 Respiratory rate 20 /min Eusebia Terrell SOLID PROPELLANT PROCESSOR Work Phone: [facility] 02-06-2024 09:06-0400 SaO2% (BldA) [Mass fraction] 94 % Eusebia Terrell SOLID PROPELLANT PROCESSOR Work Phone: [facility] 02-06-2024 09:06-0400 Systolic blood pressure 102 mm[Hg] Eusebia Terrell SOLID PROPELLANT PROCESSOR Work Phone: [facility] 01-21-2024 14:28-0400 Body height 172.7 cm Sara Whittakertig HEALTH OCCUPATIONS TEACHER-REPORTER ANCHOR Work Phone: [facility] 01-21-2024 14:28-0400 Body mass index (BMI) [Ratio] 55.22 kg/m2 Sara Whittakertig HEALTH OCCUPATIONS TEACHER-REPORTER ANCHOR Work Phone: [facility] 01-21-2024 14:28-0400 Body weight 164.75 kg Sara Whittakertig HEALTH OCCUPATIONS TEACHER-REPORTER ANCHOR Work Phone: [facility] 01-21-2024 14:28-0400 Diastolic blood pressure 58 mm[Hg] Sara Whittakertig HEALTH OCCUPATIONS TEACHER-REPORTER ANCHOR Work Phone: [facility] 01-21-2024 14:28-0400 Heart rate 90 /min Sara Vuong APRN-REPORTER ANCHOR Work Phone: [facility] 01-21-2024 14:28-0400 SaO2% (BldA) [Mass fraction] 95 % Sara Vuong HEALTH OCCUPATIONS TEACHER-REPORTER ANCHOR [facility] 01-21-2024 14:28-0400 Systolic blood pressure 90 mm[Hg] Sara Vuong APRN-REPORTER ANCHOR [facility] 10-25-2023 14:27-0400 Body height 172.7 cm Lisa Cervantes DO Work Phone: [facility] 10-25-2023 14:27-0400 Body mass index (BMI) [Ratio] 55.62 kg/m2 Lisa Cervantes DO Work Phone: [facility] 10-25-2023 14:27-0400 Body weight 165.93 kg Lisa Cervantes DO Work Phone: [facility] 10-25-2023 14:27-0400 Diastolic blood pressure 49 mm[Hg] Lisa Cervantes DO Work Phone: [facility] 10-25-2023 14:27-0400 Heart rate 63 /min Lisa Cervantes DO Work Phone: [facility] 10-25-2023 14:27-0400 SaO2% (BldA) [Mass fraction] 94 % Lisa [facility]antes DO [facility] Comment on above: Arrived on 3Lnc of O2 10-25-2023 14:27-0400 Systolic blood pressure 83 mm[Hg] Lisa Cervantes DO Work Phone: [facility] 10-08-2023 10:53-0400 Body height 172.7 cm Madison Blanco MD Work Phone: [facility] 10-08-2023 10:53-0400 Body mass index (BMI) [Ratio] 56.26 kg/m2 Madison Blanco MD Work Phone: [facility] 10-08-2023 10:53-0400 Body weight 167.83 kg Madison Blanco MD Work Phone: [facility] 10-08-2023 10:53-0400 Diastolic blood pressure 70 mm[Hg] Madison Blanco MD Work Phone: [facility] 10-08-2023 10:53-0400 Heart rate 64 /min Madison Blanco MD Work Phone: [facility] 10-08-2023 10:53-0400 Systolic blood pressure 110 mm[Hg] Madison Blanco MD Work Phone: [facility] 08-20-2023 10:47-0500 Body height 172.7 cm Samara Noel MD Work Phone: [facility] 08-20-2023 10:47-0500 Body mass index (BMI) [Ratio] 57.21 kg/m2 Samara Noel MD Work Phone: [facility] 08-20-2023 10:47-0500 Body weight 170.64 kg Samara Noel MD Work Phone: [facility] 08-20-2023 10:47-0500 Diastolic blood pressure 66 mm[Hg] Samara Noel MD Work Phone: [facility] 08-20-2023 10:47-0500 Heart rate 88 /min Samara Noel MD Work Phone: [facility] 08-20-2023 10:47-0500 SaO2% (BldA) [Mass fraction] 95 % Samara Noel MD Work Phone: [facility] 08-20-2023 10:47-0500 Systolic blood pressure 139 mm[Hg] Samara Noel MD Work Phone: [facility] 07-26-2023 13:20-0500 Body height 172.7 cm Faith Mandujano MD Work Phone: [facility] 07-26-2023 13:20-0500 Body mass index (BMI) [Ratio] 55.95 kg/m2 Faith Mandujano MD Work Phone: [facility] 07-26-2023 13:20-0500 Body weight 166.92 kg Faith Mandujano MD Work Phone: [facility] 07-26-2023 13:20-0500 Diastolic blood pressure 70 mm[Hg] Faith Mandujano MD Work Phone: [facility] 07-26-2023 13:20-0500 Heart rate 115 /min Faith Mandujano MD Work Phone: [facility] 07-26-2023 13:20-0500 SaO2% (BldA) [Mass fraction] 94 % Faith Mandujano MD Work Phone: [facility] 07-26-2023 13:20-0500 Systolic blood pressure 104 mm[Hg] Faith Mandujano MD Work Phone: [facility] 07-19-2023 09:48-0500 Body height 172.7 cm Eusebia Terrell SOLID PROPELLANT PROCESSOR Work Phone: [facility] 07-19-2023 09:48-0500 Body mass index (BMI) [Ratio] 56.2 kg/m2 Eusebia Terrell SOLID PROPELLANT PROCESSOR Work Phone: [facility] 07-19-2023 09:48-0500 Body temperature 97.5 [degF] Eusebia Terrell SOLID PROPELLANT PROCESSOR Work Phone: [facility] 07-19-2023 09:48-0500 Body weight 167.65 kg Eusebia Terrell SOLID PROPELLANT PROCESSOR Work Phone: [facility] 07-19-2023 09:48-0500 Diastolic blood pressure 88 mm[Hg] Eusebia Terrell SOLID PROPELLANT PROCESSOR Work Phone: [facility] 07-19-2023 09:48-0500 Heart rate 95 /min Eusebia Xander SOLID PROPELLANT PROCESSOR Work Phone: [facility] 07-19-2023 09:48-0500 Respiratory rate 24 /min Eusebia Xander SOLID PROPELLANT PROCESSOR Work Phone: [facility] 07-19-2023 09:48-0500 SaO2% (BldA) [Mass fraction] 95 % Eusebia Terrell SOLID PROPELLANT PROCESSOR Work Phone: [facility] 07-19-2023 09:48-0500 Systolic blood pressure 130 mm[Hg] Eusebia Terrell SOLID PROPELLANT PROCESSOR Work Phone: [facility] 04-13-2023 12:07-0400 Body height 172.7 cm Justyn Covington MD Work Phone: [facility] 04-13-2023 12:07-0400 Body mass index (BMI) [Ratio] 54.74 kg/m2 Justyn Covington MD Work Phone: [facility] 04-13-2023 12:07-0400 Body weight 163.29 kg Justyn Covington MD Work Phone: [facility] 04-13-2023 12:07-0400 Diastolic blood pressure 80 mm[Hg] Justyn Covington MD Work Phone: [facility] 04-13-2023 12:07-0400 Systolic blood pressure 134 mm[Hg] Justyn Covington MD Work Phone: [facility] 10-02-2022 11:00-0400 52 1 Eusebia Terrell Work Phone: [facility] 305 DO Work Phone: Comment on above: [id number] 07-19-2022 10:33-0500 Body height 173.99 cm Eusebia Terrell Work Phone: [facility] [address] DO Work Phone: 07-19-2022 10:33-0500 Body mass index (BMI) [Ratio] 50.68 kg/m2 Eusebia Lawholz Work Phone: [facility] [address] DO Work Phone: 07-19-2022 10:33-0500 Body surface area Derived from formula 2.57 m2 Eusebia Quintanillahholz Work Phone: [facility] 305 DO Work Phone: 07-19-2022 10:33-0500 Body weight 153.41 kg Eusebia Lawholz Work Phone: [facility] [address] DO Work Phone: 07-19-2022 10:33-0500 Diastolic blood pressure 82 mm[Hg] Eusebia Lawholz Work Phone: [facility] [address] DO Work Phone: 07-19-2022 10:33-0500 Heart rate 64 /min Eusebia Lawholz Work Phone: [facility] [address] DO Work Phone: 07-19-2022 10:33-0500 Systolic blood pressure 132 mm[Hg] Eusebia Lawholz Work Phone: [facility] 305 DO Work Phone: 01-12-2022 14:42-0400 Body height 172.72 cm Eusebia Lawholz Work Phone: [facility] 600 DO Work Phone: 01-12-2022 14:42-0400 Body mass index (BMI) [Ratio] 51.7 kg/m2 Eusebia Lawholz Work Phone: [facility] [employer] 600 DO Work Phone: 01-12-2022 14:42-0400 Body surface area Derived from formula 2.56 m2 Eusebia Lawholz Work Phone: [facility] [employer] 600 DO Work Phone: 01-12-2022 14:42-0400 Body weight 154.22 kg [facility] DO Work Phone: 01-12-2022 14:42-0400 Diastolic blood pressure 80 mm[Hg] Eusebia Lawholz Work Phone: [facility] [employer] 600 DO Work Phone: 01-12-2022 14:42-0400 Heart rate 66 /min [facility]usebia [facility]holz [facility] 600 DO Work Phone: 01-12-2022 14:42-0400 Systolic blood pressure 136 mm[Hg] Eusebia Lawholz Work Phone: [facility] [employer] 600 DO Work Phone: 04-11-2021 12:45-0400 Body height 172.72 cm Eusebia Lawholz [facility] DO Work Phone: 04-11-2021 12:45-0400 Body mass index (BMI) [Ratio] 53.52 kg/m2 Eusebia Lawholz [facility] DO Work Phone: 04-11-2021 12:45-0400 Body surface area Derived from formula 2.6 m2 Eusebia Quintanillahholz Work Phone: [facility] 600 DO Work Phone: 04-11-2021 12:45-0400 Body weight 159.67 kg Eusebia Nela Quintanillaabhaytonio Work Phone: [facility] 600 DO Work Phone: 04-11-2021 12:45-0400 Diastolic blood pressure 78 mm[Hg] Eusebia Nela Quintanillafernandogallo Work Phone: [facility] 600 DO Work Phone: 04-11-2021 12:45-0400 Heart rate 74 /min Eusebia Nela Quintanillafernandogallo Work Phone: [facility] 600 DO Work Phone: 04-11-2021 12:45-0400 Systolic blood pressure 124 mm[Hg] Eusebia Nela Quintanillafernandogallo [facility] 600 DO Work Phone: Encounters Encounter Date Encounter Type Care Provider Facility Start: 01-24-2025 End: 01-25-2025 Emergency department patient visit EUSEBIA TERRELL [facility] Start: 01-02-2025 End: 01-02-2025 External Result Encounter Eusebia Terrell SOLID PROPELLANT PROCESSOR Work Phone: [facility] External Department Unsolicited Start: 01-02-2025 End: 01-02-2025 External Result Encounter Eusebia Terrell SOLID PROPELLANT PROCESSOR Work Phone: [facility] External Department Unsolicited Start: 01-02-2025 End: 01-05-2025 Orders Only Lisa Cervantes DO Work Phone: [facility] Comment on above: Chronic obstructive pulmonary disease, unspecified COPD type ([facility]) (Primary Dx) Start: 12-22-2024 End: 12-22-2024 ambulatory EUSEBIA TERRELL Not Available Start: 12-22-2024 End: 12-22-2024 Office outpatient visit 25 minutes Eusebia Terrell NP Work Phone: [facility] Comment on above: Primary hypertension (Primary Dx); CATERINA (obstructive sleep apnea); Chronic diastolic (congestive) heart failure (HCC); Coronary artery disease involving havasupai coronary artery of havasupai heart without angina pectoris ; Paroxysmal atrial fibrillation (HCC); Bilateral lower extremity edema; Class 3 severe obesity due to excess calories with serious comorbidity and body mass index (BMI) of 50.0 to 59.9 in adult ([facility]-HCC); Pre-diabetes; Thyroid nodule ; Pulmonary emphysema, unspecified emphysema type (HCC); Moderate persistent asthma without complication (HCC); Hyperlipidemia, unspecified ; Chronic diastolic heart failure (HCC); Atrial fibrillation, unspecified type (HCC) Start: 12-22-2024 End: 12-22-2024 Bamboo flowsheet Eusebia Terrell NP Work Phone: [facility] Start: 12-22-2024 End: 12-22-2024 Bamboo flowsheet Eusebia Terrell NP Work Phone: [facility] Start: 12-03-2024 End: 12-04-2024 Refill Eusebia Terrell NP Work Phone: [facility] Comment on above: Paroxysmal atrial fi brillation (HCC) Start: 10-15-2024 End: 10-15-2024 ambulatory [facility] Ambulatory Start: 10-15-2024 End: 10-15-2024 Office outpatient visit 25 minutes Madison Blanco MD Work Phone: [facility] Comment on above: 2-vessel coronary ar joey disease (Primary Dx); Paroxysmal atrial fibrillation (Multi); [place] (myocardial infarction); Poor compliance; Essential hypertension; Morbid obesity with BMI of 50.0-59.9, adult (Multi); Obstructive sleep apnea syndrome; Former smoker Start: 09-18-2024 End: 09-18-2024 Bamboo flowsheet Eusebia Terrell NP Work Phone: [facility] FM Start: 09-18-2024 End: 09-18-2024 Bamboo flowsheet Eusebia Terrell SOLID PROPELLANT PROCESSOR Work Phone: [facility] Start: 09-18-2024 End: 09-18-2024 Office outpatient visit 25 minutes Eusebia Terrell SOLID PROPELLANT PROCESSOR Work Phone: [facility] Comment on above: Primary hypertension (CMS/HCC) (Primary Dx); Pulmonary emphysema, unspecified emphysema type (CMS/HCC); Coronary artery disease involving havasupai coronary artery of havasupai heart without angina pectoris (CMS/HCC); Chronic diastolic (congestive) heart failure; Bilateral lower extremity edema; Pre-diabetes; Mixed hyperlipidemia (CMS/HCC); Rising PSA level; Vitamin D deficiency; Hyperlipidemia, unspecified (CMS/HCC); Chronic diastolic heart failure (CMS/HCC); Atrial fibrillation, unspecified type (CMS/HCC); Chronic obstructive pulmonary disease, unspecified COPD type (CMS/HCC); CATERINA (obstructive sleep apnea) Start: 09-18-2024 End: 09-18-2024 ambulatory EUSEBIA TERRELL Not Available Start: 09-17-2024 End: 09-17-2024 ambulatory EUSEBIA TERRELL [facility] Start: 08-08-2024 End: 08-11-2024 Refill Sara Vuong APRN-REPORTER ANCHOR Work Phone: [facility] Start: 07-29-2024 End: 07-30-2024 Refill Eusebia Terrell SOLID PROPELLANT PROCESSOR Work Phone: [facility] Comment on above: Primary hypertension (CMS/HCC); Paroxysmal atrial fibrillation (CMS/HCC); Chronic obstructive pulmonary disease, unspecified COPD type (CMS/HCC) Start: 07-18-2024 End: 07-18-2024 Telephone encounter Yolanda Willis CNA [facility] Start: 06-19-2024 End: 06-19-2024 Bamboo flowsheet Eusebia Terrell SOLID PROPELLANT PROCESSOR Work Phone: [facility] Start: 06-19-2024 End: 06-19-2024 Bamboo flowsheet Eusebia Terrell SOLID PROPELLANT PROCESSOR Work Phone: [facility] Start: 06-19-2024 End: 06-19-2024 Patient encounter procedure Eusebia Terrell NP Work Phone: [facility] Comment on above: Encounter for subseq uent annual wellness visit (AWV) in Medicare patient (Primary Dx); Chronic obstructive pulmonary disease, unspecified ([facility]/HCC); Chronic diastolic (congestive) heart failure ([facility]/HCC); Emphysema, unspecified ([facility]/HCC); Paroxysmal atrial fibrillation ([facility]/HCC); Morbid (severe) obesity due to excess calories ([facility]/HCC); Body mass index (BMI) 50.0-59.9, adult ([facility]); CATERINA (obstructive sleep apnea); Coronary artery disease involving havasupai coronary artery of havasupai heart without angina pectoris ([facility]/HCC); Primary hypertension ([facility]); Bilateral lower extremity edema; Class 3 severe obesity due to excess calories with serious comorbidity and body mass index (BMI) of 50.0 to 59.9 in adult ([facility]); Pre-diabetes; Mixed hyperlipidemia ([facility]); Upper respiratory tract infection, unspecified type Start: 06-19-2024 End: 06-19-2024 ambulatory EUSEBIA TERRELL Not Available Start: 06-16-2024 End: 06-17-2024 Refill Eusebia Terrell NP Work Phone: [facility] Comment on above: Primary hypertension ([facility]/HCC); Paroxysmal atrial fibrillation ([facility]/HCC) Start: 05-28-2024 End: 05-28-2024 ambulatory EUSEBIA TERRELL [facility] Start: 05-23-2024 End: 05-23-2024 Telephone encounter Jeanne Green RN [facility] Comment on above: overdue lab Start: 05-06-2024 Patient encounter procedure Eusebia Terrell NP Work Phone: [facility] Start: 04-09-2024 End: 04-09-2024 Office outpatient visit 15 minutes Eusebia Terrell NP Work Phone: [facility] Comment on above: Environmental and se asonal allergies (Primary Dx); Severe persistent asthma, uncomplicated ([facility]/HCC); Morbid obesity with BMI of 50.0-59.9, adult ([facility]); Pulmonary emphysema, unspecified emphysema type ([facility]/HCC) Start: 04-09-2024 End: 04-09-2024 ambulatory EUSEBIA XANDER Not Available Start: 04-09-2024 End: 04-09-2024 Bamboo flowsheet Eusebia Xander SOLID PROPELLANT PROCESSOR Work Phone: [facility] Start: 04-09-2024 End: 04-09-2024 Bamboo flowsheet Eusebia Xander SOLID PROPELLANT PROCESSOR Work Phone: [facility] Start: 03-26-2024 End: 03-26-2024 Telephone encounter Lisa Cervantes DO Work Phone: [facility] Start: 03-24-2024 End: 03-24-2024 Refill Eusebia Terrell SOLID PROPELLANT PROCESSOR Work Phone: [facility] Comment on above: Hyperlipidemia, unsp ecified ([facility]) Med Refill Start: 02-06-2024 End: 02-06-2024 Bamboo flowsheet Eusebia Xander SOLID PROPELLANT PROCESSOR Work Phone: [facility] Start: 02-06-2024 End: 02-06-2024 Bamboo flowsheet Eusebia Xander SOLID PROPELLANT PROCESSOR Work Phone: [facility] Start: 02-06-2024 End: 02-06-2024 Office outpatient visit 25 minutes Eusebia Terrell SOLID PROPELLANT PROCESSOR Work Phone: [facility] Comment on above: Pre-diabetes (Primar y Dx); Other emphysema ([facility]); Atrial fibrillation, unspecified type ([facility]/HCC); Hyperlipidemia, unspecified ([facility]/HCC); Chronic obstructive pulmonary disease, unspecified COPD type ([facility]/HCC); Chest pain due to CAD ([facility]); Primary hypertension ([facility]/HCC); Paroxysmal atrial fibrillation ([facility]/HCC); Chronic diastolic heart failure ([facility]); Other headache syndrome; Morbid obesity ([facility]/HCC); Morbid obesity with BMI of 50.0-59.9, adult ([facility]/HCC) Start: 02-06-2024 End: 02-06-2024 ambulatory EUSEBIA TERRELL Not Available Start: 02-05-2024 End: 02-05-2024 Refill Samara Noel MD Work Phone: [facility] Comment on above: Chronic diastolic he art failure (CMS-HCC); Coronary artery disease involving havasupai coronary artery of havasupai heart without angina pectoris; Persistent atrial fibrillation (CMS-HCC) Start: 01-22-2024 End: 01-22-2024 Orders Only Sara Vuong HEALTH OCCUPATIONS TEACHERSmashburger Work Phone: [facility] Comment on above: Chronic diastolic he art failure (CMS-HCC); Coronary artery disease involving havasupai coronary artery of havasupai heart without angina pectoris; Persistent atrial fibrillation ([facility]-HCC) Start: 01-21-2024 End: 01-21-2024 Office outpatient visit 25 minutes Sara Vuong HEALTH OCCUPATIONS TEACHERSmashburger Work Phone: [facility] Comment on above: Chronic diastolic he art failure (CMS-HCC) (Primary Dx); Persistent atrial fibrillation ([facility]-HCC); Coronary artery disease involving havasupai coronary artery of havasupai heart without angina pectoris; Primary hypertension Start: 11-14-2023 End: 11-14-2023 Telephone encounter Orders Support User Transcribe [facility] Comment on above: Sleep Lab (Pap Order ) Start: 11-13-2023 End: 11-13-2023 Orders Only Lisa Cervantes DO Work Phone: [facility] Comment on above: CATERINA treated with BiP AP (Primary Dx) Start: 11-11-2023 End: 11-13-2023 Refill Samara Noel MD Work Phone: [facility] Comment on above: Chronic diastolic he art failure ([facility]-HCC); Coronary artery disease involving havasupai coronary artery of havasupai heart without angina pectoris; Persistent atrial fibrillation ([facility]-HCC) Start: 11-05-2023 End: 11-17-2023 ambulatory EUSEBIA Hernandez [facility] Start: 10-31-2023 End: 10-31-2023 Refill Nishi Max RN [facility] Comment on above: Chronic diastolic he art failure ([facility]-HCC) (Primary Dx) Start: 10-25-2023 End: 10-25-2023 ambulatory LISA M BILLY [facility] Start: 10-25-2023 End: 10-25-2023 Office outpatient visit 25 minutes Lisa Levin [place] Work Phone: [facility] Comment on above: Chronic obstructive pulmonary disease, unspecified COPD type ([facility]) (Primary Dx); CATERINA treated with BiPAP; Pulmonary nodule; Restrictive pattern present on pulmonary function testing; History of tobacco use Start: 10-24-2023 End: 10-24-2023 Telephone encounter Griselda Gramajo [facility] Start: 10-23-2023 End: 10-23-2023 Telephone encounter Olga Oshea [facility] Card[facility] Start: 10-11-2023 End: 10-11-2023 Refill Samara Noel MD Work Phone: [facility] Comment on above: Chronic diastolic he art failure ([facility]); Coronary artery disease involving havasupai coronary artery of havasupai heart without angina pectoris; Persistent atrial fibrillation ([facility]) Start: 10-08-2023 End: 10-08-2023 Office outpatient visit 25 minutes Madison Blanco MD Work Phone: [facility] Comment on above: 2-vessel coronary ar joey disease (Primary Dx); Paroxysmal atrial fibrillation (Multi); Essential hypertension; Mixed hyperlipidemia; [place] (myocardial infarction); Morbid obesity with BMI of 50.0-59.9, adult (Multi); Former smoker Start: 10-03-2023 End: 10-03-2023 Orders Only Liliana Carballo [facility] General Surgery-Bariatric Start: 08-21-2023 Telephone encounter Jeanne Green RN [facility] Comment on above: [facility] Start: 08-20-2023 End: 08-20-2023 Office outpatient new 45 minutes Samara Noel MD Work Phone: [facility] Comment on above: Chronic diastolic he art failure (CMS-HCC) (Primary Dx); Coronary artery disease involving havasupai coronary artery of havasupai heart without angina pectoris; Persistent atrial fibrillation (CMS-HCC) Start: 07-30-2023 Refill Eusebia Terrell NP Work Phone: [facility] Comment on above: Pulmonary emphysema, unspecified emphysema type (CMS/HCC) (Primary Dx) Start: 07-26-2023 End: 07-26-2023 Office outpatient new 45 minutes Faith Mandujano MD Work Phone: [facility] Comment on above: Atrial fibrillation, unspecified type (CMS-HCC) (Primary Dx); History of coronary angioplasty with insertion of stent; History of tobacco use; Primary hypertension; Paroxysmal atrial fibrillation (CMS-HCC); Bilateral lower extremity edema; Heart failure with preserved ejection fraction, unspecified HF chronicity (CMS-HCC) Start: 07-25-2023 Telephone encounter Eusebia [facility] Start: 07-20-2023 Chart abstracting Faith santos MD Work Phone: [facility] Start: 07-19-2023 End: 07-19-2023 Office outpatient visit 25 minutes Eusebia Terrell NP Work Phone: [facility] Comment on above: Screening for prosta te cancer (Primary Dx); Mixed hyperlipidemia (CMS/HCC); Primary hypertension (CMS/HCC); Pre-diabetes; Morbid obesity with BMI of 50.0-59.9, adult (CMS/HCC); Hypoxia; Pulmonary emphysema, unspecified emphysema type (CMS/HCC); Bilateral lower extremity edema; CATERINA (obstructive sleep apnea); Venous insufficiency of both lower extremities; Atrial fibrillation, unspecified type (CMS/HCC) Start: 04-13-2023 End: 04-13-2023 Office outpatient visit 25 minutes Justyn Covington MD Work Phone: [facility] Comment on above: CAD S/P percutaneous coronary angioplasty; Paroxysmal atrial fibrillation ([facility]); [place] (myocardial infarction); Mixed hyperlipidemia; Primary hypertension; Obstructive sleep apnea syndrome; Morbid obesity with BMI of 50.0-59.9, adult (CMS/HCC); Former smoker; Status post ablation of incompetent vein using laser Start: 10-26-2022 End: 10-26-2022 ambulatory NATALIA TERRELL Facility:H1 Start: 10-05-2022 Chart Update Eusebiakelley menendez Work Phone: [facility] [address] DO Work Phone: Start: 10-03-2022 Chart Update Eusebia Nela menendez Work Phone: [facility] [address] DO Work Phone: Start: 10-03-2022 [address] Mrs. Eusebia Rondon Xander Dayne acility:[id number] Start: 10-02-2022 ambulatory Mrs. Eusebia Rondon Xander Dayne acility:[id number] Start: 09-15-2022 Telephone encounter Eusebia wayne Work Phone: [facility] [address] DO Work Phone: Start: 09-15-2022 End: 09-16-[address] DOCTOR HERNANDEZ Facility:H1 Start: 08-27-2022 End: 08-27-2022 ambulatory TED DE LUNA . Facility:H1 Start: 08-25-2022 Telephone encounter [facility]usebia wayne [facility] DO Work Phone: Start: 08-24-2022 End: 08-25-[address] KESHAWN PECK Facility:H1 Start: 07-27-2022 STRESS KARIS, [id number][id number], Status: Pen, Time: 2:00 PM Eusebia Terrell Work Phone: [facility] Work Phone: Start: 07-19-2022 Office outpatient vi sit 25 minutes Eusebia Nela Aichholz Work Phone: [facility] [address] DO Work Phone: Start: 07-19-2022 ambulatory JUSTYN BERNARD CARMELAY Facility: Start: 06-01-2022 End: 06-04-2022 ambulatory MIRZA GUZMÁN Facility:H1 Start: 05-29-2022 End: 05-29-2022 ambulatory REPORTER ANCHOR EUSEBIA TERRELL Facility:H1 Start: 05-26-2022 End: 05-26-2022 ambulatory ROBERTA PERRIN Facility:H1 Start: 05-20-2022 End: 05-20-[address] SALVADOR WALTERS . Facility:H1 Start: 04-03-[address] Madison Blanco Facility: Start: 02-04-2022 End: 02-04-2022 ambulatory NATALIA TERRELL Facility:H1 Start: 01-26-2022 End: 01-26-2022 ambulatory REPORTER ANCHOR EUSEBIA XANDER Facility:H1 Start: 01-12-2022 Office outpatient vi sit 25 minutes Eusebia Nela Aichholz Work Phone: [facility] 250 DO Work Phone: Start: 01-12-2022 Patient encounter procedure Eusebia Nela Aichholz Work Phone: [facility] [facility] DO Work Phone: Start: 01-12-2022 ambulatory NATALIA Farris Jaqueline y: Start: 01-11-2022 End: 01-12-2022 ambulatory REPORTER ANCHOR EUSEBIA XANDER Facility:H1 Start: 01-08-2022 End: 01-08-2022 ambulatory REPORTER ANCHOR EUSEBIA XANDER Facility:H1 Start: 12-10-2021 End: 12-11-2021 ambulatory REPORTER ANCHOR EUSEBIA XANDER Facility:H1 Start: 11-06-2021 End: 11-07-2021 ambulatory NATALIA TERRELL Facility:H1 Start: 08-02-[address] Madison Blanco Facility:[id number] Start: 07-18-2021 Telephone encounter Eusebia Serna chholz Work Phone: [facility] 250 DO Work Phone: Start: 05-09-2021 Rx Renewal Eusebia Quintanillahstephanie lz Work Phone: [facility] [facility] DO Work Phone: Start: 04-11-2021 Office outpatient vi sit 25 minutes Eusebia Lawholz Work Phone: [facility] [address] DO Work Phone: Start: 04-04-2021 Rx Renewal Eusebia Lawho lz Work Phone: [facility] 250 DO Work Phone: Start: 08-23-2017 Ambulatory MADISON BALNCO Faci lity:1532 Echocardiogram normal Eusebia Serna chholz Work Phone: [facility] 600 DO Work Phone: Preoperative state Eusebia Lawh olz Work Phone: [facility] [address] DO Work Phone: Procedures Date Procedure Procedure Detail Performing Clinician Start: 01-02-2025 Complete blood count with white cell differential, automated Eusebia Terrell SOLID PROPELLANT PROCESSOR Work Phone: Start: 09-17-2024 Lipid 1996 panel - S britt or Plasma Madison Blanco MD Work Phone: Start: 06-19-2024 Hemoglobin glycosyla piotr a1c Eusebia Terrell SOLID PROPELLANT PROCESSOR Work Phone: Start: 10-25-2023 Follow-up visit Follow-up LISA CERVANTES Start: 07-26-2023 Ecg routine ecg w/le ast 12 lds w/i&r Faith Mandujano MD Work Phone: Start: 04-12-2023 End: 04-13-2023 History of percutaneous transluminal coronary angioplasty History of PTCA Justyn Covington MD Work Phone: Start: 09-21-2022 History of placement of stent for coronary artery disease History of coronary angioplasty with insertion of stent Eusebia Terrell SOLID PROPELLANT PROCESSOR Work Phone: Start: 01-11-2022 PSA screening REPORTER ANCHOR EUSEBIA TERRELL Comment on above: Performed By: #### T SH, BNP, HSTROPN, CMP #### [facility] [address] [address] [address] Jersey Butcher Start: 05-28-2017 Colonoscopy Eusebia veliz SOLID PROPELLANT PROCESSOR Work Phone: Cardiac catheterization Eusebia Terrell Work Phone: Cholecystectomy Eusebia holder Work Phone: Comment on above: [id number] Romero; Colonoscopy Eusebia elizalde Work Phone: Comment on above: Joel Rosa; History of percutane ous transluminal coronary angioplasty History of PTCA Eusebia Terrell Work Phone: History of placement of stent for coronary artery disease History of coronary angioplasty with insertion of stent Faith Mandujano MD Work Phone: Operative procedure on knee Eusebia Terrell Work Phone: Percutaneous translu china coronary angioplasty Eusebia Terrell Work Phone: Plan of Treatment Date Care Activity Detail Author Start: 09-17-2029 Lipid panel Lipid Panel [facility] Start: 05-28-2027 Screening for malign ant neoplasm of colon [facility] Start: 06-19-2025 Medicare Annual Well ness (AWV) Medicare Annual Wellness (AWV) [facility] Start: 05-21-2025 End: 05-21-2025 Patient encounter procedure 05/21/2025 9:45 AM EST Office Visit [facility] [address] [address] Lisa Cervantes, DO [address] [address] [facility] Start: 05-07-2025 End: 05-07-2025 Patient encounter procedure 05/07/2025 11:30 AM EST Appointment [facility] [address] [place] [address] Lisa Cervantes, DO [address] [address] [facility] Start: 02-20-2025 End: 02-20-2025 Patient encounter procedure 02/20/2025 10:00 AM EDT Office Visit [facility] [address] [facility] [address] [place] [id number] Madison Blanco MD [address] [facility] [address] [place] [address] [facility] Start: 02-16-2025 Influenza vaccination [facility] Start: 02-02-2025 End: 02-02-2025 Patient encounter procedure 02/02/2025 2:40 PM EDT Office Visit [facility] [address] [place] [address] Eusebia Terrell NP [address] [place] [address] [facility] Start: 01-20-2025 Adult BMI Screening Adult BMI Screen ing [facility] Start: 01-20-2025 Tobacco Screening Tobacco Screening [facility] Start: 01-02-2025 End: 01-02-2026 XR Chest PA and Lateral X-ray chest 2 views Imaging Routine Chronic obstructive pulmonary disease, unspecified COPD type ([facility]-HCC) Expected: 01/02/2025, Expires: 01/02/2026 [facility] Comment on above: Expected: 01/02/2025 , Expires: 01/02/2026 Start: 12-22-2024 End: 12-22-2024 Patient encounter procedure 12/22/2024 2:20 PM EDT Office Visit [facility] [address] [place] [address] Eusebia Terrell, GENESIS [address] [place] [phone] [facility] Start: 12-22-2024 End: 12-22-2025 Basic metabolic 1998 panel - Serum or Plasma Basic metabolic panel Lab Routine Chronic diastolic heart failure (HCC) Expected: 12/22/2024 (Approximate), Expires: 12/22/2025 [facility] Comment on above: Expected: 12/22/2024 (Approximate), Expires: 12/22/2025 Start: 12-22-2024 End: 12-22-2025 CBC W Auto Differential panel - Blood CBC and differential Lab Routine Chronic diastolic heart failure (HCC) Expected: 12/22/2024 (Approximate), Expires: 12/22/2025 [facility] Work Phone: Comment on above: Expected: 12/22/2024 (Approximate), Expires: 12/22/2025 Start: 12-18-2024 End: 12-18-2024 Patient encounter procedure 12/18/2024 10:30 AM EDT Office Visit [facility] [address] [place] [address] Eusebia Terrell, SOLID PROPELLANT PROCESSOR [address] [place] [phone] [facility] Start: 10-24-2024 Adult BMI Screening Adult BMI Screen ing [facility] Start: 10-24-2024 Tobacco Screening Tobacco Screening [facility] Start: 09-18-2024 End: 09-18-2024 Patient encounter procedure [facility] Comment on above: Pulmonary emphysema, unspecified emphysema type (CMS/HCC) (Primary Dx); Coronary artery disease involving havasupai coronary artery of havasupai heart without angina pectoris (CMS/HCC); Chronic diastolic (congestive) heart failure; Primary hypertension (CMS/HCC); Bilateral lower extremity edema; Pre-diabetes; Mixed hyperlipidemia ([facility]/HCC); Rising PSA level; Vitamin D deficiency Start: 08-19-2024 Adult BMI Screening Adult BMI Screen ing [facility] Start: 08-19-2024 Tobacco Screening Tobacco Screening [facility] Start: 08-18-2024 End: 08-18-2024 Patient encounter procedure 08/18/2024 2:00 PM EST Office Visit [facility] [address] [place] [phone] Sara Vuong, HEALTH OCCUPATIONS TEACHER-REPORTER ANCHOR [address] [place] [address] Kristina Moreno, HEALTH OCCUPATIONS TEACHER-REPORTER ANCHOR [address] [place] [phone] [facility] Start: 07-26-2024 Adult BMI Screening Adult BMI Screen ing [facility] Start: 07-26-2024 Tobacco Screening Tobacco Screening [facility] Start: 07-21-2024 End: 07-21-2024 Patient encounter procedure 07/21/2024 9:00 AM EST Office Visit [facility] [address] [place] [phone] Sara Vuong, HEALTH OCCUPATIONS TEACHER-REPORTER ANCHOR [address] [place] [address] [facility] Start: 06-19-2024 End: 06-19-2024 Patient encounter procedure [facility] Comment on above: Encounter for subseq uent annual wellness visit (AWV) in Medicare patient (Primary Dx); Chronic obstructive pulmonary disease, unspecified ([facility]/HCC); Chronic diastolic (congestive) heart failure ([facility]/HCC); Emphysema, unspecified ([facility]/HCC); Paroxysmal atrial fibrillation ([facility]/HCC); Morbid (severe) obesity due to excess calories ([facility]/HCC); Body mass index (BMI) 50.0-59.9, adult ([facility]); CATERINA (obstructive sleep apnea); Coronary artery disease involving havasupai coronary artery of havasupai heart without angina pectoris ([facility]/HCC); Primary hypertension ([facility]); Bilateral lower extremity edema; Class 3 severe obesity due to excess calories with serious comorbidity and body mass index (BMI) of 50.0 to 59.9 in adult ([facility]/HCC); Pre-diabetes; Mixed hyperlipidemia ([facility]) Start: 05-08-2024 End: 05-08-2024 Patient encounter procedure 05/08/2024 1:00 PM EST Office [facility] [address] [place] [address] Eusebia Terrell, GENESIS [address] [place] [address] TYRELL PAUL Start: 05-06-2024 End: 05-06-2024 Patient encounter procedure 05/06/2024 10:30 AM EST [facility] [address] [place] [address] Eusebia Tererll NP [address] [place] [address] [facility] Start: 05-03-2024 Adult BMI Screening Adult BMI Screen ing [facility] Start: 05-03-2024 Tobacco Screening Tobacco Screening [facility] Start: 04-23-2024 End: 01-21-2025 Basic metabolic 2000 panel - Serum or Plasma Basic Metabolic Panel Lab Routine Chronic diastolic heart failure ([facility]-HCC) Expected: 04/23/2024 (Approximate), Expires: 01/21/2025 [facility] Work Phone: Comment on above: Expected: 04/23/2024 (Approximate), Expires: 01/21/2025 Start: 04-09-2024 End: 04-09-2024 Patient encounter procedure [facility] Comment on above: Severe persistent as thma, uncomplicated (CMS/HCC) Start: 03-27-2024 End: 03-27-2024 Patient encounter procedure 03/27/2024 11:30 AM EDT Office Visit [facility] [address] [address] Lisa Cervantes, DO [address] [address] [facility] Start: 02-17-2024 COVID-19 Vaccine () COVID-19 Vaccine () [facility] Start: 02-17-2024 Influenza vaccination [facility] Start: 02-11-2024 End: 02-11-2024 Clinical Support 02/11/2024 8:00 PM EDT Clinical Support [facility] [address] [place] [address] [place] [address] Lisa Cervantes, DO [address] [address] [facility] Start: 02-06-2024 End: 02-06-2024 Patient encounter procedure 02/06/2024 9:00 AM EDT Office Visit [facility] [address] [place] [phone] Eusebia Terrell NP [address] [place] [address] Other emphysema (CMS/HCC) [facility] Comment on above: Other emphysema ([facility] /HCC) Start: 01-21-2024 End: 01-21-2024 Patient encounter procedure 01/21/2024 2:30 PM EDT Office Visit [facility] [address] [place] [phone] Sara Vuong, HEALTH OCCUPATIONS TEACHER-REPORTER ANCHOR [address] [place] [address] [facility] Start: 11-07-2023 End: 10-30-2024 Basic metabolic 2000 panel - Serum or Plasma Basic Metabolic Panel Lab Routine Chronic diastolic heart failure ([facility]) Expected: 11/07/2023 (Approximate), Expires: 10/30/2024 [facility] Work Phone: Comment on above: Expected: 11/07/2023 (Approximate), Expires: 10/30/2024 Start: 11-05-2023 End: 11-05-2023 ambulatory 11/05/2023 8:30 AM EDT [facility] [address] [address] [facility] Start: 10-30-2023 End: 10-30-2023 Patient encounter procedure 10/30/2023 10:30 AM EDT Appointment [facility] [address] [place] [phone] Lisa Cervantes, DO [address] [address] [facility] Start: 10-25-2023 End: 10-25-2023 Patient encounter procedure 10/25/2023 2:15 PM EDT Office Visit [facility] [address] [place] [address] Lisa Cervantes, DO [address] [address] [facility] Start: 10-24-2023 End: 10-24-2023 Patient encounter procedure 10/24/2023 1:45 PM EDT Office Visit [facility] [address] [email or web address] [address] [place] [phone] Juan Jose Lee MD [address] [place] [phone] [facility] Start: 10-17-2023 End: 10-17-2023 Patient encounter procedure 10/17/2023 10:00 AM EDT Office [facility] [address] [address] Justyn Covington MD [address] [facility] Office [facility] [address] [place] [address] [facility] Start: 10-04-2023 End: 10-04-2023 Patient encounter procedure 10/04/2023 10:30 AM EDT Office Visit [facility] [address] [place] [phone] Lisa Cervantes, DO [address] [address] [facility] Start: 09-24-2023 End: 09-24-2023 Patient encounter procedure 09/24/2023 9:00 AM EDT Office Visit [facility] [address] [place] [phone] Sara Vuong, HEALTH OCCUPATIONS TEACHER-REPORTER ANCHOR [address] [place], [place] [phone] [facility] Start: 08-27-2023 End: 08-19-2024 Basic metabolic 2000 panel - Serum or Plasma Basic Metabolic Panel Lab Routine Chronic diastolic heart failure (CMS-HCC) Coronary artery disease involving havasupai coronary artery of havasupai heart without angina pectoris Persistent atrial fibrillation (CMS-HCC) Expected: 08/27/2023 (Approximate), Expires: 08/19/2024 [facility] Work Phone: Comment on above: Expected: 08/27/2023 (Approximate), Expires: 08/19/2024 Start: 08-27-2023 End: 08-19-2024 Natriuretic peptide B [Mass/volume] in Blood B-type natriuretic peptide Lab Routine Chronic diastolic heart failure (CMS-HCC) Coronary artery disease involving havasupai coronary artery of havasupai heart without angina pectoris Persistent atrial fibrillation (CMS-HCC) Expected: 08/27/2023 (Approximate), Expires: 08/19/2024 [facility] Comment on above: Expected: 08/27/2023 (Approximate), Expires: 08/19/2024 Start: 08-27-2023 End: 08-19-2024 Thyroid profile includes TSH FT4 Thyroid profile includes TSH FT4 Lab Routine Chronic diastolic heart failure (CMS-HCC) Coronary artery disease involving havasupai coronary artery of havasupai heart without angina pectoris Persistent atrial fibrillation (CMS-HCC) Expected: 08/27/2023 (Approximate), Expires: 08/19/2024 [facility] Comment on above: Expected: 08/27/2023 (Approximate), Expires: 08/19/2024 Start: 08-24-2023 Adult BMI Follow Up Plan Adult BMI F ollow Up Plan [facility] Start: 08-23-2023 End: 08-23-2023 Patient encounter procedure 08/23/2023 10:00 AM EST Appointment [facility] [address] [place] [address] Lisa Cervantes, [address] [address] [facility] Start: 08-14-2023 End: 08-14-2023 Patient encounter procedure 08/14/2023 10:00 AM EST Office Visit [facility] [address] [place] [address] Mirza Guzmán MD [address] [place] [address] [facility] Start: 08-02-2023 End: 07-26-2024 Basic metabolic 2000 panel - Serum or Plasma Basic Metabolic Panel Lab Routine Atrial fibrillation, unspecified type (CMS-HCC) Expected: 08/02/2023 (Approximate), Expires: 07/26/2024 [facility] Work Phone: Comment on above: Expected: 08/02/2023 (Approximate), Expires: 07/26/2024 Start: 07-26-2023 End: 07-26-2023 Patient encounter procedure 07/26/2023 1:30 PM EST Office Visit [facility] [address] [place] [phone] Faith aMndujano MD [address] [place] [address] [facility] Start: 07-19-2023 FUV, Provider: Justyn Covington, Status: Pen, Time: 1:00 PM FUV, Provider: Justyn Covington, Status: Pen, Time: 1:00 PM [facility] [facility] [address] DO Work Phone: Start: 07-19-2023 End: 07-19-2024 Comprehensive metabolic 2000 panel - Serum or Plasma Comprehensive metabolic panel Lab Routine Mixed hyperlipidemia (CMS/HCC) Primary hypertension (CMS/HCC) Pre-diabetes Expected: 07/19/2023 (Approximate), Expires: 07/19/2024 [facility] Comment on above: Expected: 07/19/2023 (Approximate), Expires: 07/19/2024 Start: 07-19-2023 End: 07-19-2024 Hemoglobin A1c measurement Hemoglobin A1c Lab Routine Pre-diabetes Expected: 07/19/2023 (Approximate), Expires: 07/19/2024 [facility] Comment on above: Expected: 07/19/2023 (Approximate), Expires: 07/19/2024 Start: 07-19-2023 End: 07-19-2024 Lipid 1996 panel - Serum or Plasma Lipid panel Lab Routine Mixed hyperlipidemia (CMS/HCC) Expected: 07/19/2023 (Approximate), Expires: 07/19/2024 [facility] Comment on above: Expected: 07/19/2023 (Approximate), Expires: 07/19/2024 Start: 07-19-2023 End: 07-19-2024 Microalbumin/Creatinine panel in random Urine Microalbumin / creatinine, urine ratio Lab Routine Primary hypertension (CMS/HCC) Pre-diabetes Expected: 07/19/2023 (Approximate), Expires: 07/19/2024 [facility] Comment on above: Expected: 07/19/2023 (Approximate), Expires: 07/19/2024 Start: 07-19-2023 End: 07-19-2024 Prostate specific Ag [Mass/volume] in Serum or Plasma PSA Lab Routine Screening for prostate cancer Expected: 07/19/2023 (Approximate), Expires: 07/19/2024 [facility] Work Phone: Comment on above: Expected: 07/19/2023 (Approximate), Expires: 07/19/2024 Start: 07-19-2023 End: 07-19-2024 Urinalysis complete panel - Urine Urinalysis with reflex microscopic (clean catch) Lab Routine Primary hypertension (CMS/HCC) Pre-diabetes Expected: 07/19/2023 (Approximate), Expires: 07/19/2024 [facility] Comment on above: Expected: 07/19/2023 (Approximate), Expires: 07/19/2024 Start: 07-19-2023 End: 07-19-2023 Patient encounter procedure 07/19/2023 1:00 PM EST Office Visit [facility] [address] [address] Justyn Covington MD [address] [facility] Office Bldg, [place] [place] [address] [facility] Start: 2023 Hepatitis B Vaccines (1 of 3 - Risk 3-dose series) Hepatitis B Vaccines (1 of 3 - Risk 3-dose series) [facility] Start: 2023 RSV High Risk: (Elde rly (60+) or Population) (1 - Risk 60-74 years 1-dose series) RSV High Risk: (Elderly (60+) or Population) (1 - Risk 60-74 years 1-dose series) [facility] Start: 2023 RSV patient s and/or patients aged 60+ years (1 - 1-dose 60+ series) RSV patients and/or patients aged 60+ years (1 - 1-dose 60+ series) [facility] Start: 02-16-2023 COVID-19 Vaccine ( season) COVID-19 Vaccine ( season) [facility] Start: 02-16-2023 Influenza vaccination [facility] Start: 10-03-2022 REST ONLY, Provider: DAYANNA HHVI NUCLEAR 01,[id number], Status: Pen, Time: 10:00 AM REST ONLY, Provider: DAYANNA HHVI NUCLEAR 01,[id number], Status: Pen, Time: 10:00 AM [place] [address] DO Work Phone: Start: 10-02-2022 STRESSNUC2, Provider : DAYANNA HHVI NUCLEAR 01,[id number], Status: Pen, Time: 11:00 AM STRESSNUC2, Provider: DAYANNA HHVI NUCLEAR 01,[id number], Status: Pen, Time: 11:00 AM [facility] 305 DO Work Phone: Start: 07-27-2022 STRESS KARIS, Provider : JUAN HHVI NUCLEAR 01,[id number], Status: Pen, Time: 2:00 PM STRESS KARIS, Provider: JUAN HHVI NUCLEAR 01,[id number], Status: Pen, Time: 2:[address] [facility] [facility] 305 DO Work Phone: Start: 03-29-2022 FUV, Provider: Madison Blanco, Status: Pen, Time: 1:30 PM FUV, Provider: Madison Blanco, Status: Pen, Time: 1:[address] [facility] 600 DO Work Phone: Start: 07-05-2021 FUV, Provider: Madison Blanco, Status: Pen, Time: 3:20 PM FUV, Provider: Madison Blanco, Status: Pen, Time: 3:[address] [facility] 250 DO Work Phone: Start: 2013 Administration of varicella zoster vaccine Zoster (Shingles) Vaccine (1 of 2) [facility] Start: 2013 Zoster Vaccines (1 of 2) Zoster Vacc sherrell (1 of 2) [facility] Start: 1985 DTaP/Tdap/Td Vaccine s (1 - Tdap) DTaP/Tdap/Td Vaccines (1 - Tdap) [facility] Start: 1982 DTaP,Tdap and Td Vac cines (1 - Tdap) DTaP,Tdap and Td Vaccines (1 - Tdap) [facility] Start: 1982 Hepatitis A Vaccines (1 of 2 - Risk 2-dose series) Hepatitis A Vaccines (1 of 2 - Risk 2-dose series) [facility] Start: 1982 Pneumococcal vaccination Pneum ococcal Vaccine (1 of 2 - PCV) [facility] Start: 1981 Adult BMI Follow Up Plan Adult BMI F ollow Up Plan [facility] Start: 1981 Diabetes mellitus screening Diabetes Screening [facility] Start: 1981 Hepatitis C screening Hepatitis C Sc reening [facility] Start: 1975 Depression Screening Depression Scre ening [facility] Start: 1969 Pneumococcal Vaccine : Pediatrics (0 to 5 Years) and At-Risk Patients (6 to 64 Years) (1 - PCV) Pneumococcal Vaccine: Pediatrics (0 to 5 Years) and At-Risk Patients (6 to 64 Years) (1 - PCV) [facility] Start: 1969 Pneumococcal Vaccine : Pediatrics (0 to 5 Years) and At-Risk Patients (6 to 64 Years) (1 of 2 - PCV) Pneumococcal Vaccine: Pediatrics (0 to 5 Years) and At-Risk Patients (6 to 64 Years) (1 of 2 - PCV) [facility] Start: 1964 MMR Vaccines (1 of 1 - Standard series) MMR Vaccines (1 of 1 - Standard series) [facility] Start: 1963 COVID-19 Vaccine (#1) COVID-19 Vacci ne (#1) [facility] Start: 1963 Creatinine measurement Creatinine Le sima [facility] Start: 1963 Echocardiography Echocardiogram [facility] Start: 1963 Hepatitis B Vaccines (1 of 3 - 3-dose series) Hepatitis B Vaccines (1 of 3 - 3-dose series) [facility] Start: 1963 HIV screening HIV Screening [facility] Start: 1963 Lipid panel Lipid Panel [facility] Start: 1963 Medicare Annual Well ness (AWV) Medicare Annual Wellness (AWV) [facility] Start: 1963 Potassium measurement Potassium Leve l [facility] Start: 1963 Screening for malign ant neoplasm of colon [facility] Start: 1963 Yearly Adult Physical Yearly Adult P hysical [facility] End: 01-20-2025 Basic metabolic 1999 panel - Serum or Plasma Basic Metabolic Panel Lab Routine Chronic diastolic heart failure (CMS-HCC) Persistent atrial fibrillation (CMS-HCC) Coronary artery disease involving havasupai coronary artery of havasupai heart without angina pectoris Primary hypertension 1 Occurrences starting 01/21/2024 until 01/20/2025 [facility] Work Phone: Comment on above: 1 Occurrences starti ng 01/21/2024 until 01/20/2025 Basic metabolic 1999 panel - Serum or Plasma Basic Metabolic Panel Lab Routine Chronic diastolic heart failure (CMS-HCC) Persistent atrial fibrillation (CMS-HCC) Coronary artery disease involving havasupai coronary artery of havasupai heart without angina pectoris Primary hypertension 01/21/2024 3:17 PM EDT [facility] End: 07-26-2024 Magnesium [Mass/volume] in Serum or Plasma Magnesium Lab Routine Atrial fibrillation, unspecified type ([facility]-HCC) 1 Occurrences starting 07/26/2023 until 07/26/2024 [facility] Comment on above: 1 Occurrences starti ng 07/26/2023 until 07/26/2024 End: 01-20-2025 Magnesium [Mass/volume] in Serum or Plasma Magnesium Lab Routine Chronic diastolic heart failure (CMS-HCC) Persistent atrial fibrillation ([facility]-HCC) Coronary artery disease involving havasupai coronary artery of havasupai heart without angina pectoris Primary hypertension 1 Occurrences starting 01/21/2024 until 01/20/2025 [facility] Comment on above: 1 Occurrences starti ng 01/21/2024 until 01/20/2025 Magnesium [Mass/volu me] in Serum or Plasma Magnesium Lab Routine Chronic diastolic heart failure (CMS-HCC) Persistent atrial fibrillation ([facility]-HCC) Coronary artery disease involving havasupai coronary artery of havasupai heart without angina pectoris Primary hypertension 01/21/2024 3:17 PM EDT [facility] End: 10-24-2024 Nocturnal Pulse Oximetry Nocturnal Pulse Oximetry Respiratory Care Routine Chronic obstructive pulmonary disease, unspecified COPD type ([facility]-HCC) CATERINA treated with BiPAP Restrictive pattern present on pulmonary function testing 1 Occurrences starting 10/25/2023 until 10/24/2024 [employer] Work Phone: Comment on above: 1 Occurrences starti ng 10/25/2023 until 10/24/2024 End: 11-12-2024 Polysomnography 4 or more parameters with PAP titration Polysomnography 4 or more parameters with PAP titration [facility] Routine CATERINA treated with BiPAP 1 Occurrences starting 11/13/2023 until 11/12/2024 [employer] Work Phone: Comment on above: 1 Occurrences starti ng 11/13/2023 until 11/12/2024 End: 01-02-2026 Pulmonary function test Spirometry (Flow Volume Loop) pre/post short acting bronchodilator Pulmonary function test Spirometry (Flow Volume Loop) pre/post short acting bronchodilator PFT Routine Chronic obstructive pulmonary disease, unspecified COPD type (CMS-HCC) 1 Occurrences starting 01/02/2025 until 01/02/2026 [facility] Work Phone: Comment on above: 1 Occurrences starti ng 01/02/2025 until 01/02/2026 Payers Date Payer Category Payer Managed Care (Private) [facility] [id number] 2024 Medicaid (Managed Care) SERGIO [facility]AD[facility] [id number] 2024 Medicaid [id number] 2024 Medicaid [id number] 2023 Unknown [id number] 2023 Medicare UNITED HEALTH[employer] E MEDICARE UHC MEDICARE ADVANTAGE [id number] 2023-Present [address] [address] [place] [address] [id number] 2023 Medicare (Managed Care) [facility] [id number] 2023 Private Health Insurance [id number] 2023 Medicaid [id number] 2023 Private Health Insurance [id number] 2022 Worker's Comp, Other (unspecified) WORKER'S COMPENSATION - GENERIC PLAN [id number] 2022 Worker's Compensation WORKER'S C OMPENSATION WORKER'S COMPENSATION - GENERIC PLAN [id number] 2022-Present [phone] [address] [place] [address] [id number] [id number] 2022 Unknown 1963 Unknown [id number] 2.16.840.1.651061.3.579. 2.356 1963 Unknown [id number] 2.16.840.1.649676.3.579. 2.356 1963 Unknown [id number] 2.16.840.1.717560.3.579. 2.356 1963 Unknown [id number] 2.16.840.1.949706.3.579. 2.356 1963 Unknown [id number] 2.16.840.1.953755.3.579. 2.593 1963 Unknown [id number] 2.16.840.1.643328.3.579. 2.593 1963 Unknown [id number] 2.16.840.1.449456.3.579. 2593 1963 Unknown [id number] 2.16.840.1.798056.3.579. 2593 1963 Unknown [id number] 2.16.840.1.424680.3.579. 2593 1963 Unknown [id number] 2.16.840.1.245628.3.579. 2593 1963 Unknown [id number] 2.16.840.1.929101.3.579. 2593 1963 Unknown [id number] 2.16.840.1.476693.3.579. 2593 1963 Unknown [id number] 2.16.840.1.537468.3.579. 2593 1963 Unknown [id number] 2.16.840.1.128348.3.579. 2593 1963 Unknown [id number] 2.16.840.1.619691.3.579. 2.593 1963 Unknown [id number] 2.16.840.1.762184.3.579. 2593 1963 Unknown [id number] 2.16.840.1.171037.3.579. 2.593 1963 Unknown [id number] 2.16.840.1.713965.3.579. 2593 1963 Unknown [id number] 2.16.840.1.509341.3.579. 2.8 1963 Unknown [id number] 2.16.840.1.383090.3.579. 2.1067 1963 Unknown [id number] 2.16.840.1.869209.3.579. 2.1285 1963 Unknown [id number] 2.16.840.1.536586.3.579. 2.1285 1963 Unknown [id number] 2.16.840.1.236556.3.579. 2.4 1963 Unknown [id number] 2.16.840.1.966638.3.579. 2.1258 1963 Unknown [id number] 2.16.840.1.234227.3.579. 2.1258 1963 Unknown [id number] 2.16.840.1.256642.3.579. 2.1258 1963 Unknown [id number] 2.16.840.1.710023.3.579. 2.1258 1963 Unknown [id number] 2.16.840.1.451585.3.579. 2.1258 1963 Unknown [id number] 2.16.840.1.814444.3.579. 2.1285 1963 Unknown [id number] 2.16.840.1.689934.3.579. 2.1285 1963 Unknown [id number] 2.16.840.1.734202.3.579. 2.1285 1963 Unknown [id number] 2.16.840.1.886196.3.579. 2.1285 1959 Private Health Insurance [id number] 1959 Unknown [id number] Medicaid [id number] Self-pay Self Pay [id number] Social History Date Type Detail Facility Tobacco smoking stat [facility] Unknown if ever smoked [facility] Start: 1965 Sex Assigned At Male F [facility] Start: 07-19-2023 End: 07-26-2023 Daily caffeine consumption Daily caffeine consumption -[facility] 600 DO Work Phone: Comment on above: 2 (24oz) cups of cof fee daily; Quit 07/26/2012; Start: 04-13-2023 End: 01-21-2024 Tobacco smoking status NHIS Ex-smoker [facility] End: 07-31-2012 History of tobacco use Current smoker [facility] Work Phone: End: 07-31-2012 History of tobacco use Cigarette Smoker [facility] Work Phone: Start: 04-13-2023 End: 01-21-2024 Tobacco use and exposure Smokeless tobacco non-user [facility] Work Phone: Start: 04-13-2023 End: 01-21-2024 Alcohol intake Lifetime non-drinker (finding) [facility] Work Phone: Start: 1965 Sex Assigned At [facility] Work Phone: Start: 07-19-2023 End: 07-26-2023 Gender identity Not on file [facility] Work Phone: Start: 04-03-2023 End: 10-15-2024 Exposure to SARS-CoV-2 (event) Not sure [facility] Start: 07-19-2023 End: 12-22-2024 Alcohol intake Ex-drinker (finding) [facility] Start: 06-06-2023 Alcohol Comment caffeine 1-2 c ups per day [facility] Childcare Unknown [facility] Start: 01-21-2015 Sex Male (finding) [facility] Goals Date Patient Goal Desired Activity /State Clinical Notes 08-25-2022 to 01-02-2025 Telephone Encounter - CHAVA Chaves - 01/02/2025 9:31 AM EDTTelephone Encounter - Lisa Cervantes DO - 01/02/2025 9:31 AM EDTTelephone Encounter - SiminCHAVA Coburn - 01/02/2025 9:31 AM EDT Note Date & Type Note Facility 01-02-2025 Miscellaneous Notes Patient called office to schedule a follow up with SE, tech writer scheduled patient for next available 05/21/2025 at 9:45. Patient was last seen on 10/25/2023. Please review if patient needs any testing prior to upcoming appointment. ASSESSMENT 1. Chronic hypoxic respiratory failure 2. Moderately severe COPD 3. History of tobacco use 4. CATERINA on BiPAP (Auto) 5. Hypertension 6. CAD 7. Stable bilateral small pulmonary nodules, largest 6 mm 8. Restrictive lung physiology related to body habitus. No ILD on CT chest. PLAN Continue Trelegy and PRN aerosols Continue oxygen therapy for goal saturation 88-92% Will need imaging reports from [place] Weight loss would be helpful in reducing dyspnea symptoms. Heart failure clinic follow up. Deep breathing exercises. Maintain up to date on routine vaccination. Adherence to bipap advised. Will obtain nocturnal pulse ox while on RA with BIPAP to assess for indication of bleed in O2. RTC in 5 months or earlier if needed. Order placed for CXR and PFT data. Cork Insulator called patient and informed him that per SE, she would like him to complete a CXR and PFT prior to his upcoming appointment on 05/21/2025. Patient verbalized understanding, tech writer provided patient with central scheduling phone number. Patient stated that he would have testing completed in April, tech writer verbalized understanding. documented in this encounter [facility] 01-02-2025 Telephone encounter Note Patient called office to schedule a follow up with SE, tech writer scheduled patient for next available 05/21/2025 at 9:45. Patient was last seen on 10/25/2023. Please review if patient needs any testing prior to upcoming appointment. ASSESSMENT 1. Chronic hypoxic respiratory failure 2. Moderately severe COPD 3. History of tobacco use 4. CATERINA on BiPAP (Auto) 5. Hypertension 6. CAD 7. Stable bilateral small pulmonary nodules, largest 6 mm 8. Restrictive lung physiology related to body habitus. No ILD on CT chest. PLAN Continue Trelegy and PRN aerosols Continue oxygen therapy for goal saturation 88-92% Will need imaging reports from [place] Weight loss would be helpful in reducing dyspnea symptoms. Heart failure clinic follow up. Deep breathing exercises. Maintain up to date on routine vaccination. Adherence to bipap advised. Will obtain nocturnal pulse ox while on RA with BIPAP to assess for indication of bleed in O2. RTC in 5 months or earlier if needed. [facility] 01-02-2025 Telephone encounter Note Order placed for CXR and PFT data. [facility] 01-02-2025 Telephone encounter Note Cork Insulator called patient and informed him that per SE, she would like him to complete a CXR and PFT prior to his upcoming appointment on 05/21/2025. Patient verbalized understanding, tech writer provided patient with central scheduling phone number. Patient stated that he would have testing completed in April, tech writer verbalized understanding. [facility] 12-22-2024 History of Present illness Narrative Left leg Images from the original note were not included. Elyse Duong is a 59 y.o. male presents with chief complaint of No chief complaint on file. HPI: Here for recheck: Not wearing PAP, drys mouth out too much, has not call pulmonology in [place] to get a fu appt either Breathing: good days/bad days no productive cough noted, no current wheeze noted either Hypertension This is a chronic problem. The current episode started more than 1 year ago. The problem is unchanged. Associated symptoms include peripheral edema and shortness of breath. Pertinent negatives include no blurred vision, chest pain or palpitations. There are no associated agents to hypertension. Risk factors for coronary artery disease include dyslipidemia, male gender and obesity. Past treatments include angiotensin blockers, beta blockers, calcium channel blockers and diuretics. The current treatment provides significant improvement. There are no compliance problems. Hypertensive end-organ damage includes CAD/WV, heart failure and PVD. SUBJECTIVE: MEDICATIONS: Current Outpatient Medications Medication Instructions apixaban (ELIQUIS) 5 mg, Oral, 2 times daily aspirin (ASPIRIN LOW DOSE) 81 mg, Oral, Daily atorvastatin (LIPITOR) 40 mg, Oral, Nightly dapagliflozin (FARXIGA) 10 mg, Oral, Daily dilTIAZem CD (CARDIZEM CD) 240 mg, Oral, Daily Wzgzrrnzbqn-Urehokeht-Pxidnw (Trelegy Ellipta) 100-62.5-25 MCG/ACT aerosol powder 1 puff, Mouth/Throat, Daily, Rinse mouth after use ipratropium-albuterol (Duo-Neb) 0.5-2.5 mg/3 mL nebulizer solution 3 mL, 4 times daily levalbuterol (Xopenex) 45 MCG/ACT inhaler 2 puffs, Inhalation, Every 6 hours PRN losartan (COZAAR) 50 mg, Oral, Daily metoprolol tartrate (LOPRESSOR) 50 mg, Oral, 2 times daily nitroglycerin (NITROSTAT) 0.4 mg, Sublingual, Every 5 min PRN oxygen (O2) gas Inhalation, Continuous spironolactone (ALDACTONE) 25 mg, Oral, Daily torsemide (DEMADEX) 20 mg, Oral, Twice a day (morning and mid-day) ALLERGIES: Allergies Allergen Reactions Lisinopril Cough REVIEW OF SYMPTOMS: Review of Systems Constitutional: Negative for activity change, appetite change and unexpected weight change. HENT: Negative for ear pain, nosebleeds, sneezing, trouble swallowing and voice change. Eyes: Negative for blurred vision, pain, discharge and visual disturbance. Respiratory: Positive for shortness of breath. Negative for apnea, chest tightness and wheezing. Cardiovascular: Positive for leg swelling. Negative for [...] MEDICAL HISTORY Past Medical History: Diagnosis Date Arrhythmia 05/25/2023 Bilateral lower extremity edema 06/06/2023 Bilateral lower leg cellulitis 06/06/2023 CAD (coronary artery disease) COPD (chronic obstructive pulmonary disease) with emphysema ([facility]) 06/28/2023 Coronary artery disease involving havasupai coronary artery of havasupai heart without angina pectoris 09/21/2022 DENIES H/O BLOOD BORNE DISEASE Hyperlipidemia Hypoxia 06/28/2023 Myocardial infarction (HCC) CATERINA (obstructive sleep apnea) 05/25/2023 Primary hypertension 05/25/2023 Severe persistent asthma, uncomplicated (HCC) 04/09/2024 Superficial phlebitis and thrombophlebitis of left lower extremity 08/16/2023 Venous insufficiency of both lower extremities Past Surgical History: Procedure Laterality Date ANGIOPLASTY 2013 CHOLECYSTECTOMY 2016 KNEE SURGERY Left 04/15/2021 SCOPE - DR GREER ([facility]) family history includes Diabetes in his mother. OBJECTIVE: Visit Vitals Smoking Status Former Physical Exam Vitals and nursing note reviewed. Constitutional: Appearance: Normal appearance. He is obese. HENT: Head: Normocephalic. Right Ear: External ear normal. Left Ear: External ear normal. Nose: Nose normal. Mouth/Throat: Mouth: Mucous membranes are moist. Pharynx: Oropharynx is clear. Eyes: Extraocular Movements: Extraocular movements intact. Conjunctiva/sclera: Conjunctivae normal. Neck: Vascular: No carotid bruit. Cardiovascular: Rate and Rhythm: Normal rate and regular rhythm. Pulses: Normal pulses. Heart sounds: Normal heart sounds. No murmur heard. Pulmonary: Effort: Pulmonary effort is normal. Breath sounds: Normal breath sounds. No wheezing or rhonchi. Abdominal: General: Bowel sounds are normal. Palpations: Abdomen is soft. Musculoskeletal: Cervical back: Neck supple. Right lower leg: Edema present. Left lower leg: Edema present. Comments: Trace-1+ bilat pre tibial Lymphadenopathy: Cervical: No cervical adenopathy. Skin: General: Skin is warm and dry. Capillary Refill: Capillary refill takes 2 to 3 seconds. Neurological: General: No focal deficit present. Mental Status: He is alert. Psychiatric: Mood and Affect: Mood normal. Behavior: Behavior normal. Thought Content: Thought content normal. Judgment: Judgment normal. ASSESSMENT AND PLAN: No follow-ups on file. Problem List Items Addressed This Visit Coronary artery disease involving havasupai coronary artery of havasupai heart without angina pectoris Follow with cardiology Cont b preet, statin, asa Arrhythmia Primary hypertension Please check blood pressure daily and record DASH diet Limit caffeine Take medication as directed Contact office if chest pain, pressure, dizziness, shortness of breath, swelling legs Recommend slow position changes Current meds: losartan, metoprolol, cardizem, and torsemide Left arm recheck: sittin/62, unchanged with standing We will reach out to cardiology, as I am not certain where they want his pressure to be running. He is NOT symptomatic at all, I am going to have him get a cbc and basic to make sure stable I will ask for help from cardiology about this CATERINA (obstructive sleep apnea) - Primary You have a diagnosis of obstructive sleep apnea. It is recommended that you wear your PAP device any time while in bed sleeping. Not using the PAP device can increase your risk of elevated/uncontrolled high blood pressure, atrial fibrillation, heart attack, stroke, or sudden . Compliant: Non compliant with PAP use, cannot tolerate wearing mask d/t drying mouth out Has been instructed to contact pulmonology and work with them, he is non compliant with that Hours of use: NA Feels better w use: NA Paroxysmal atrial fibrillation (HCC) Cardiology Current meds: asa, eliquis, cardizem, metoprolol Recommend working w pulmonology for PAP use as well Bilateral lower extremity edema Continue diuretics Elevation of legs above heart level as much as possible Recommend wearing PAP Thyroid nodule Hx of thyroid nodule Thyroid labs in 10/10 WNL No supplemental levo Check thyroid US Pre-diabetes Monitor for s/s of hypoglycemia (sweaty, dizziness, nausea, vomiting, or shakiness). Watch for increase in thirst, urination, or appetite. Inspect feet frequently monitoring for open wounds , and also recommend yearly eye exam. Pt should attempt to remain as physically active as chronic conditions allow, as well as trying to follow a diet low in carbohydrates, and simple sugars. Dose take farxiga more for cardiac, however is providing treatment as well A1c 5.9% 06/19/24 Relevant Medications dapagliflozin (Farxiga) 10 MG Chronic diastolic (congestive) heart failure (HCC) Follows with cardiology Daily weights, limit sodium as well Current meds: asa, farxiga, losartan,b preet, spironolactone, toersemide Check labs prn Relevant Medications dapagliflozin (Farxiga) 10 MG Class 3 severe obesity due to excess calories with serious comorbidity and body mass index (BMI) of 50.0 to 59.9 in adult ([facility]) Discussed with patient their BMI (actual, verses recommended). We have also discussed lifestyle modifications: attempts to perform physical activity as chronic conditions allow, also to monitor dietary intake: increasing protein/fruits/veggies and lowering carb intake (unless contraindicated). Limit sodas, juices, and sugary drinks. Also discussed oral medications that can be utilized for weight loss, as well as surgical options for weight loss. Was considering weight loss surgery in the past, recommend to continue to pursue that avenue to help with weight loss Emphysema, unspecified (HCC) Telegy, and prn xopenex I have instructed pt to call his stripe marker, he states he will do this tomorrow (which would be 12/23/24) Moderate persistent asthma without complication (HCC) Inhaler, nebs Other Visit Diagnoses Hyperlipidemia, unspecified Relevant Medications atorvastatin (Lipitor) 40 MG tablet Chronic diastolic heart failure (HCC) Relevant Medications dapagliflozin (Farxiga) 10 MG Other Relevant Orders CBC and differential Basic metabolic panel Associated Problem(s): Moderate persistent asthma without complication (HCC) Inhaler, nebs Associated Problem(s): Emphysema, unspecified (HCC) Telegy, and prn xopenex I have instructed pt to call his stripe marker, he states he will do this tomorrow (which would be 12/23/24) Associated Problem(s): Thyroid nodule Hx of thyroid nodule Thyroid labs in 10/10 WNL No supplemental levo Check thyroid US Associated Problem(s): Mixed hyperlipidemia Current med statin Check labs yearly and prn dose changes Associated Problem(s): Pre-diabetes Monitor for s/s of hypoglycemia (sweaty, dizziness, nausea, vomiting, or shakiness). Watch for increase in thirst, urination, or appetite. Inspect feet frequently monitoring for open wounds , and also recommend yearly eye exam. Pt should attempt to remain as physically active as chronic conditions allow, as well as trying to follow a diet low in carbohydrates, and simple sugars. Dose take farxiga more for cardiac, however is providing treatment as well A1c 5.9% 06/19/24 Associated Problem(s): Class 3 severe obesity due to excess calories with serious comorbidity and body mass index (BMI) of 50.0 to 59.9 in adult ([facility]) Discussed with patient their BMI (actual, verses recommended). We have also discussed lifestyle modifications: attempts to perform physical activity as chronic conditions allow, also to monitor dietary intake: increasing protein/fruits/veggies and lowering carb intake (unless contraindicated). Limit sodas, juices, and sugary drinks. Also discussed oral medications that can be utilized for weight loss, as well as surgical options for weight loss. Was considering weight loss surgery in the past, recommend to continue to pursue that avenue to help with weight loss Associated Problem(s): Bilateral lower extremity edema Continue diuretics Elevation of legs above heart level as much as possible Recommend wearing PAP Associated Problem(s): Primary hypertension Please check blood pressure daily and record DASH diet Limit caffeine Take medication as directed Contact office if chest pain, pressure, dizziness, shortness of breath, swelling legs Recommend slow position changes Current meds: losartan, metoprolol, cardizem, and torsemide Left arm recheck: sittin/62, unchanged with standing We will reach out to cardiology, as I am not certain where they want his pressure to be running. He is NOT symptomatic at all, I am going to have him get a cbc and basic to make sure stable I will ask for help from cardiology about this Associated Problem(s): Paroxysmal atrial fibrillation (HCC) Cardiology Current meds: asa, eliquis, cardizem, metoprolol Recommend working w pulmonology for PAP use as well Associated Problem(s): Coronary artery disease involving havasupai coronary artery of havasupai heart without angina pectoris Follow with cardiology Cont b preet, statin, asa Associated Problem(s): Chronic diastolic (congestive) heart failure (HCC) Follows with cardiology Daily weights, limit sodium as well Current meds: asa, farxiga, losartan,b preet, spironolactone, toersemide Check labs prn Associated Problem(s): CATERINA (obstructive sleep apnea) You have a diagnosis of obstructive sleep apnea. It is recommended that you wear your PAP device any time while in bed sleeping. Not using the PAP device can increase your risk of elevated/uncontrolled high blood pressure, atrial fibrillation, heart attack, stroke, or sudden . Compliant: Non compliant with PAP use, cannot tolerate wearing mask d/t drying mouth out Has been instructed to contact pulmonology and work with them, he is non compliant with that Hours of use: NA Feels better w use: NA documented in this encounter [facility] 12-22-2024 Instructions Eusebia Terrell NP - 12/22/2024 2:20 PM EDT I will check with Die Keeper about your meds, the doses and your blood pressure in office today Get labs checked I also want you to call your lung doctor in [place] documented in this encounter [facility] 10-15-2024 History of Present illness Narrative Chief Complaint Patient presents with Follow-up 6 month follow up 2-vessel coronary artery disease Subjective Elyse Duong is a 59 y.o. male HPI Patient is here for follow-up to management for history of coronary artery disease with remote PCI to the RCA and known occlusion of the circumflex, paroxysmal atrial fibrillation, morbid obesity hypertension hyperlipidemia. Since last time I saw him he reports symptoms of chest pain usually in the morning nonexertional lasting few hours. He report he can walk 2-3 blocks without any chest pain. His symptoms appears more GI based on his description. He also reported symptoms of shortness of breath which is not surprising considering his morbid obesity. His recent laboratory data noted and reviewed with him. Assessment 1. Coronary artery disease with prior PCI to the RCA with known occlusion of his left circumflex last invasive evaluation back in 2014 demonstrated occlusion of the circumflex and patent RCA. He denies any angina. He describes some epigastric pain suggestive of GI 2. Paroxysmal atrial fibrillation currently in normal sinus rhythm 3. Morbid obesity with minor weight loss BMI down to 54 4. History of right heart failure and cor pulmonale due to morbid obesity 5. Sleep apnea 6. Hypertension controlled 7. Hyperlipidemia controlled recent lab noted and reviewed with him Plan 1. I recommend patient to continue present medical regimen and I advised him to try some Maalox or Mylanta. To see if his epigastric discomfort get better I told him if no improvement he can try some nitro and notify me if he develop any exertional pain or if his symptoms respond to nitroglycerin. Unfortunately he is not a good candidate for stress test considering his morbid obesity and if were suspicious I would recommend to proceed with heart cath. Patient understood and agreed and will keep me up-to-date 2. I reviewed his recent lab with him 3. Will bring him back in 4-month 4. Continue efforts to lose weight and exercise and be compliant with CPAP 5. Apparently his insurance did not approve Ozempic or Mounjaro Review of Systems Constitutional: Positive for malaise/fatigue. Cardiovascular: Positive for chest pain and dyspnea on exertion. Neurological: Positive for light-headedness. Vitals: 10/15/24 0918 BP: 112/74 BP Location: Left arm Patient Position: Sitting Pulse: 64 Weight: (!) 164 kg (361 lb) Height: 1.727 m (5' 8 ) Objective Physical Exam Constitutional: Appearance: Normal appearance. HENT: Nose: Nose normal. Neck: Vascular: No carotid bruit. Cardiovascular: Rate and Rhythm: Normal rate. Pulses: Normal pulses. Heart sounds: Normal heart sounds. Pulmonary: Effort: Pulmonary effort is normal. Abdominal: General: Bowel sounds are normal. Palpations: Abdomen is soft. Musculoskeletal: General: Normal range of motion. Cervical back: Normal range of motion. Right lower leg: No edema. Left lower leg: No edema. Skin: General: Skin is warm and dry. Neurological: General: No focal deficit present. Mental Status: He is alert. Psychiatric: Mood and Affect: Mood normal. Behavior: Behavior normal. Thought Content: Thought content normal. Judgment: Judgment normal. Allergies Lisinopril Current Medications Current Outpatient Medications Medication Instructions apixaban (ELIQUIS) 5 mg, 2 times daily aspirin 81 mg EC tablet 1 tablet, Daily atorvastatin (Lipitor) 40 mg tablet 1 tablet, Nightly dapagliflozin propanediol (Farxiga) 10 mg 1 tablet, Daily dilTIAZem CD (CARDIZEM CD) 240 mg, oral, Daily ipratropium-albuteroL (Duo-Neb) 0.5-2.5 mg/3 mL nebulizer solution 1 mL, 4 times daily PRN levalbuterol (Xopenex) 45 mcg/actuation inhaler 1-2 puffs losartan (COZAAR) 50 mg, oral, Daily metoprolol tartrate (LOPRESSOR) 50 mg, 2 times daily nitroglycerin (NITROSTAT) 0.4 mg, sublingual, Every 5 min PRN torsemide (DEMADEX) 20 mg, Daily Trelegy Ellipta 100-62.5-25 mcg blister with device 1 puff, Every 24 hours Assessment/Plan 1. 2-vessel coronary artery disease Follow Up In Cardiology nitroglycerin (Nitrostat) 0.4 mg SL tablet 2. Paroxysmal atrial fibrillation (Multi) Follow Up In Cardiology 3. Old [place] (myocardial infarction) 4. Poor compliance 5. Essential hypertension 6. Morbid obesity with BMI of 50.0-59.9, adult (Multi) 7. Obstructive sleep apnea syndrome 8. Former smoker Scribe Attestation By signing my name below, Jessy Small LPN, Scribe attest that this documentation has been prepared under the direction and in the presence of Madison Blanco MD. Provider Attestation - Scribe documentation All medical record entries made by the Scribe were at my direction and personally dictated by me. I have reviewed the chart and agree that the record accurately reflects my personal performance of the history, physical exam, discussion and plan. documented in this encounter [facility] Work Phone: 10-15-2024 Instructions Jessy Chance LPN - 10/15/2024 9:00 AM EDT Please bring all medicines, vitamins, and herbal supplements with you when you come to the office. Prescriptions will not be filled unless you are compliant with your follow up appointments or have a follow up appointment scheduled as per instruction of your physician. Refills should be requested at the time of your visit. BMI was above normal measurement. Current weight: (!) 164 kg (361 lb) Weight change since last visit (-) denotes wt loss -9 lbs Weight loss needed to achieve BMI 25: 196.9 Lbs Weight loss needed to achieve BMI 30: 164.1 Lbs Provided instructions on dietary changes Provided instructions on exercise. Follow up The following attachments cannot be sent through Care Everywhere.Body Mass Index, Adult (Latvian)documented in this encounter [facility] Work Phone: 09-18-2024 History of Present illness Narrative Associated Problem(s): Chronic obstructive pulmonary disease, unspecified Current meds: trelegy, prn duo neb, xopenex inhaler Images from the original note were not included. Elyse Duong is a 59 y.o. male presents with chief complaint of No chief complaint on file. HPI: HPI SUBJECTIVE: MEDICATIONS: Current Outpatient Medications Medication Instructions apixaban (ELIQUIS) 5 mg, Oral, 2 times daily aspirin (ASPIRIN LOW DOSE) 81 mg, Oral, Daily atorvastatin (LIPITOR) 40 mg, Oral, Nightly dapagliflozin (FARXIGA) 10 mg, Oral, Daily dilTIAZem CD (CARDIZEM CD) 240 mg, Oral, Daily Amdrnzozhvm-Etkcbeuvk-Iwguex (Trelegy Ellipta) 100-62.5-25 MCG/ACT aerosol powder 1 puff, Mouth/Throat, Daily, Rinse mouth after use ipratropium-albuterol (Duo-Neb) 0.5-2.5 mg/3 mL nebulizer solution 3 mL, 4 times daily levalbuterol (Xopenex) 45 MCG/ACT inhaler 2 puffs, Inhalation, Every 6 hours PRN losartan (COZAAR) 50 mg, Oral, Daily metoprolol tartrate (LOPRESSOR) 50 mg, Oral, 2 times daily nitroglycerin (NITROSTAT) 0.4 mg, Sublingual, Every 5 min PRN oxygen (O2) gas Inhalation, Continuous spironolactone (ALDACTONE) 25 mg, Oral, Daily torsemide (DEMADEX) 20 mg, Oral, Twice a day (morning and mid-day) ALLERGIES: Allergies Allergen Reactions Lisinopril Cough REVIEW OF SYMPTOMS: Review of Systems Constitutional: Negative for activity change, appetite change, fatigue and unexpected weight change. HENT: Negative for ear pain, nosebleeds, sneezing, trouble swallowing and voice change. Eyes: Negative for pain, discharge and visual disturbance. Respiratory: Positive for cough and shortness of breath. Negative for apnea, chest tightness and wheezing. Cardiovascular: Positive for leg swelling. Gastrointestinal: Negative for abdominal distention, blood in [...] MEDICAL HISTORY Past Medical History: Diagnosis Date Arrhythmia 05/25/2023 Bilateral lower extremity edema 06/06/2023 Bilateral lower leg cellulitis 06/06/2023 CAD (coronary artery disease) ([facility]) COPD (chronic obstructive pulmonary disease) with emphysema ([facility]) 06/28/2023 Coronary artery disease involving havasupai coronary artery of havasupai heart without angina pectoris ([facility]) 09/21/2022 DENIES H/O BLOOD BORNE DISEASE Hyperlipidemia ([facility]) Hypoxia 06/28/2023 Myocardial infarction ([facility]) CATERINA (obstructive sleep apnea) 05/25/2023 Primary hypertension ([facility]) 05/25/2023 Superficial phlebitis and thrombophlebitis of left lower extremity 08/16/2023 Venous insufficiency of both lower extremities Past Surgical History: Procedure Laterality Date ANGIOPLASTY 2013 CHOLECYSTECTOMY 2016 KNEE SURGERY Left 04/15/2021 SCOPE - [address] GREER ([facility]) family history includes Diabetes in his mother. OBJECTIVE: Visit Vitals BP 88/60 (BP Location: Right arm, Patient Position: Sitting, BP Cuff Size: Large adult) Pulse 67 Temp 98.4 F (Temporal) Resp 22 Wt 358 lb 6.4 oz SpO2 92% BMI 54.49 kg/m Smoking Status Former BSA 2.8 m Physical Exam Vitals and nursing note reviewed. Constitutional: Appearance: Normal appearance. He is obese. HENT: Head: Normocephalic. Right Ear: External ear normal. Left Ear: External ear normal. Nose: Nose normal. Mouth/Throat: Mouth: Mucous membranes are moist. Pharynx: Oropharynx is clear. Eyes: Extraocular Movements: Extraocular movements intact. Conjunctiva/sclera: Conjunctivae normal. Neck: Vascular: No carotid bruit. Cardiovascular: Rate and Rhythm: Normal rate and regular rhythm. Pulses: Normal pulses. Heart sounds: Normal heart sounds. No murmur heard. Pulmonary: Effort: Pulmonary effort is normal. Breath sounds: Normal breath sounds. No wheezing or rhonchi. Comments: diminished Abdominal: General: Bowel sounds are normal. There is no distension. Palpations: Abdomen is soft. Tenderness: There is no abdominal tenderness. Comments: protuberant Musculoskeletal: Cervical back: Neck supple. Right lower leg: Edema present. Left lower leg: Edema present. Comments: Trace swelling, brownish discoloration bilat LE No ulcerations Lymphadenopathy: Cervical: No cervical adenopathy. Skin: General: Skin is warm and dry. Capillary Refill: Capillary refill takes 2 to 3 seconds. Neurological: General: No focal deficit present. Mental Status: He is alert. Psychiatric: Mood and Affect: Mood normal. Behavior: Behavior normal. Thought Content: Thought content normal. Judgment: Judgment normal. ASSESSMENT AND PLAN: No follow-ups on file. Problem List Items Addressed This Visit Coronary artery disease involving havasupai coronary artery of havasupai heart without angina pectoris (CMS/HCC) Follow with cardiology Cont b preet, statin, asa Arrhythmia Relevant Medications dilTIAZem CD (Cardizem CD) 240 MG 24 hr capsule Primary hypertension (CMS/HCC) Please check blood pressure daily and record DASH diet Limit caffeine Take medication as directed Contact office if chest pain, pressure, dizziness, shortness of breath, swelling legs Recommend slow position changes Current meds: losartan, metoprolol, spironolactone, torsemide Pt does have SBP less than 90 last 2 visits Will reach out to cardiology to see if any adjustments in meds are needed CATERINA (obstructive sleep apnea) You have a diagnosis of obstructive sleep apnea. It is recommended that you wear your PAP device any time while in bed sleeping. Not using the PAP device can increase your risk of elevated/uncontrolled high blood pressure, atrial fibrillation, heart attack, stroke, or sudden . Compliant: Non compliant with PAP use, cannot tolerate wearing mask d/t drying mouth out Is working w pulmonology Hours of use: NA Feels better w use: NA Bilateral lower extremity edema Continue diuretics Elevation of legs above heart level as much as possible Recommend wearing PAP Chronic obstructive pulmonary disease, unspecified Current meds: trelegy, prn duo neb, xopenex inhaler Relevant Medications Qjzsplduund-Adfmvooco-Ajrluu (Trelegy Ellipta) 100-62.5-25 MCG/ACT aerosol powder Pre-diabetes Monitor for s/s of hypoglycemia (sweaty, dizziness, nausea, vomiting, or shakiness). Watch for increase in thirst, urination, or appetite. Inspect feet frequently monitoring for open wounds , and also recommend yearly eye exam. Pt should attempt to remain as physically active as chronic conditions allow, as well as trying to follow a diet low in carbohydrates, and simple sugars. Dose take farxiga more for cardiac, however is providing treatment as well A1c 5.9% 06/19/24 Relevant Medications dapagliflozin (Farxiga) 10 MG Rising PSA level Improvement from rist in 08/06/23 which was 3.81, then 1.89 01/08, then 1.26 in 09/17/24 Mixed hyperlipidemia (CMS/HCC) Current med statin Check labs yearly and prn dose changes Chronic diastolic (congestive) heart failure Follows with cardiology Daily weights, limit sodium as well Current meds: asa, farxiga, losartan,b preet, spironolactone, toersemide Check labs prn Relevant Medications dapagliflozin (Farxiga) 10 MG Emphysema, unspecified - Primary Telegy, and prn xopenex Pulmonology as well Vitamin D deficiency Vit d level 24 on 09/17/24 Add vit d 2,000 international units daily Other Visit Diagnoses Hyperlipidemia, unspecified (CMS/HCC) Relevant Medications atorvastatin (Lipitor) 40 MG tablet Chronic diastolic heart failure (CMS/HCC) Relevant Medications dapagliflozin (Farxiga) 10 MG Associated Problem(s): Vitamin D deficiency Vit d level 24 on 09/17/24 Add vit d 2,000 international units daily Associated Problem(s): Rising PSA level Improvement from rist in 08/06/23 which was 3.81, then 1.89 01/08, then 1.26 in 09/17/24 Associated Problem(s): Mixed hyperlipidemia (CMS/HCC) Current med statin Check labs yearly and prn dose changes Associated Problem(s): Pre-diabetes Monitor for s/s of hypoglycemia (sweaty, dizziness, nausea, vomiting, or shakiness). Watch for increase in thirst, urination, or appetite. Inspect feet frequently monitoring for open wounds , and also recommend yearly eye exam. Pt should attempt to remain as physically active as chronic conditions allow, as well as trying to follow a diet low in carbohydrates, and simple sugars. Dose take farxiga more for cardiac, however is providing treatment as well A1c 5.9% 06/19/24 Associated Problem(s): Class 3 severe obesity due to excess calories with serious comorbidity and body mass index (BMI) of 50.0 to 59.9 in adult Discussed with patient their BMI (actual, verses recommended). We have also discussed lifestyle modifications: attempts to perform physical activity as chronic conditions allow, also to monitor dietary intake: increasing protein/fruits/veggies and lowering carb intake (unless contraindicated). Limit sodas, juices, and sugary drinks. Also discussed oral medications that can be utilized for weight loss, as well as surgical options for weight loss. Was considering weight loss surgery in the past, recommend to continue to pursue that avenue to help with weight loss Associated Problem(s): Bilateral lower extremity edema Continue diuretics Elevation of legs above heart level as much as possible Recommend wearing PAP Associated Problem(s): Primary hypertension (CMS/HCC) Please check blood pressure daily and record DASH diet Limit caffeine Take medication as directed Contact office if chest pain, pressure, dizziness, shortness of breath, swelling legs Recommend slow position changes Current meds: losartan, metoprolol, spironolactone, torsemide Pt does have SBP less than 90 last 2 visits Will reach out to cardiology to see if any adjustments in meds are needed Associated Problem(s): Chronic diastolic (congestive) heart failure Follows with cardiology Daily weights, limit sodium as well Current meds: asa, farxiga, losartan,b preet, spironolactone, toersemide Check labs prn Associated Problem(s): Coronary artery disease involving havasupai coronary artery of havasupai heart without angina pectoris ([facility]) Follow with cardiology Cont b preet, statin, asa Associated Problem(s): Emphysema, unspecified Telegy, and prn xopenex Pulmonology as well Associated Problem(s): CATERINA (obstructive sleep apnea) You have a diagnosis of obstructive sleep apnea. It is recommended that you wear your PAP device any time while in bed sleeping. Not using the PAP device can increase your risk of elevated/uncontrolled high blood pressure, atrial fibrillation, heart attack, stroke, or sudden . Compliant: Non compliant with PAP use, cannot tolerate wearing mask d/t drying mouth out Is working w pulmonology Hours of use: NA Feels better w use: NA documented in this encounter [facility] 09-18-2024 Instructions Eusebia Terrell NP - 09/18/2024 11:00 AM EDT No med dose change, however I am going to send notes and labs to heart doctor Make an appt with Lung doctor Vit D3 2,000 international units documented in this encounter [facility] 08-08-2024 Miscellaneous Notes OV 01/21/24 BMP 05/28/24 documented in this encounter [facility] 08-08-2024 Telephone encounter Note OV 01/21/24 BMP 05/28/24 [facility] 07-18-2024 Miscellaneous Notes UNABLE TO LEAVE VOICEMAIL REMINDER ABOUT APPOINTMENT ON SUNDAY AT 9:00. documented in this encounter [facility] 07-18-2024 Telephone encounter Note UNABLE TO LEAVE VOICEMAIL REMINDER ABOUT APPOINTMENT ON SUNDAY AT 9:00. [facility] 06-19-2024 History of Present illness Narrative Associated Problem(s): URI (upper respiratory infection) Has had covid exposure, at this point will hold on atb Will give steroids and tessalon pearles Fluids, rest, if resp distress go to ER Pt has been sick for about a week now s/s include coughing, scratchy throat, drainage, gutierrez mucus, wheezing, sob, hot flashes, cold chills and sweats, fatigue, pt has been around those with covid and pneumonia, pt did not do any at home tests, no nausea no diarrhea no vomiting, no fever or body aches or pains. Pt has been using nitequil and cough drops pt has increased his fluids Elyse Duong is a 58 y.o. male presents with chief complaint of Medicare Annual Wellness Visit Initial HPI: Diet:variety Activity:mostly sedentary d/t chronic conditions Mental Health Concerns: none Falls in the last year: yes Still driving: yes Do you pay your bills: yes Any hearing problems: none Any Vision problems: glasses, last exam 3 years ago Any Hospitalizations in the last year: Specialist: test man: Dayanna, Pulmonology: dimas, Dentist: dimas, no eye doctor HCPOA/Living Will: Concerns: sick URI: over 1 week, has had exposure to someone had contact w covid. Not definite fever, no body aches, no NVD, +cough: dirty [place], +wheeze, +shortness of breath. No real sinus congestion, has used rescue inhaler and breathing treatments as well. Hypertension This is a chronic problem. The current episode started more than 1 year ago. The problem is unchanged. The problem is controlled. Associated symptoms include shortness of breath. Pertinent negatives include no anxiety, chest pain, palpitations or peripheral edema. There are no associated agents to hypertension. Risk factors for coronary artery disease include diabetes mellitus, dyslipidemia, male gender, obesity and sedentary lifestyle. Past treatments include diuretics, calcium channel blockers and beta blockers. The current treatment provides significant improvement. There are no compliance problems. Hypertensive end-organ damage includes CAD/WV and heart failure. Diabetes He presents for his follow-up diabetic visit. His disease course has been stable. There are no hypoglycemic associated symptoms. Pertinent negatives for hypoglycemia include no dizziness, nervousness/anxiousness, seizures or tremors. Associated symptoms include fatigue. Pertinent negatives for diabetes include no chest pain, no foot paresthesias, no polydipsia, no polyphagia, no polyuria and no visual change. There are no hypoglycemic complications. Symptoms are stable. Diabetic complications include heart disease. Pertinent negatives for diabetic complications include no nephropathy or peripheral neuropathy. Risk factors for coronary artery disease include diabetes mellitus, dyslipidemia, hypertension, male sex, sedentary lifestyle and obesity. Current diabetic treatment includes diet. Eye exam is not current. SUBJECTIVE: MEDICATIONS: Current Outpatient Medications Medication Instructions apixaban (ELIQUIS) 5 mg, Oral, 2 times daily aspirin (ASPIRIN LOW DOSE) 81 mg, Oral, Daily atorvastatin (LIPITOR) 40 mg, Oral, Nightly dapagliflozin (FARXIGA) 10 mg, Oral, Daily dilTIAZem CD (CARDIZEM CD) 240 mg, Oral, Daily Gnhdkigbxus-Phwftcprw-Cjctyu (Trelegy Ellipta) 100-62.5-25 MCG/ACT aerosol powder 1 puff, Mouth/Throat, Daily, Rinse mouth after use ipratropium-albuterol (Duo-Neb) 0.5-2.5 mg/3 mL nebulizer solution 3 mL, Inhalation, 4 times daily levalbuterol (Xopenex) 45 MCG/ACT inhaler 2 puffs, Inhalation, Every 6 hours PRN losartan (COZAAR) 50 mg, Oral, Daily metoprolol tartrate (LOPRESSOR) 50 mg, Oral, 2 times daily nitroglycerin (NITROSTAT) 0.4 mg, Sublingual, Every 5 min PRN oxygen (O2) gas Inhalation, Continuous spironolactone (ALDACTONE) 25 mg, Oral, Daily torsemide (DEMADEX) 20 mg, Oral, Twice a day (morning and mid-day) ALLERGIES: Allergies Allergen Reactions Lisinopril Cough REVIEW OF SYMPTOMS: Review of Systems Constitutional: Positive for fatigue. Negative for activity change, appetite change and unexpected weight change. HENT: Negative for ear pain, nosebleeds, sneezing, trouble swallowing and voice change. Eyes: Negative for pain, discharge and visual disturbance. Respiratory: Positive for cough and shortness of breath. Negative for apnea and chest tightness. Cardiovascular: Negative for chest pain, palpitations and leg swelling. Gastrointestinal: Negative for abdominal distention, blood in [...] Endocrine: Negative for cold intolerance, heat intolerance, polydipsia, polyphagia and polyuria. Allergic/Immunologic: Negative for environmental allergies and food allergies. PAST MEDICAL HISTORY Past Medical History: Diagnosis Date Arrhythmia 05/25/2023 Bilateral lower extremity edema 06/06/2023 Bilateral lower leg cellulitis 06/06/2023 CAD (coronary artery disease) ([facility]) COPD (chronic obstructive pulmonary disease) with emphysema ([facility]) 06/28/2023 Coronary artery disease involving havasupai coronary artery of havasupai heart without angina pectoris ([facility]) 09/21/2022 DENIES H/O BLOOD BORNE DISEASE Hyperlipidemia ([facility]) Hypoxia 06/28/2023 Myocardial infarction ([facility]) CATERINA (obstructive sleep apnea) 05/25/2023 Primary hypertension ([facility]) 05/25/2023 Superficial phlebitis and thrombophlebitis of left lower extremity 08/16/2023 Venous insufficiency of both lower extremities Past Surgical History: Procedure Laterality Date ANGIOPLASTY 2013 CHOLECYSTECTOMY 2016 KNEE SURGERY Left 04/15/2021 SCOPE - DR GREER ([facility]) family history includes Diabetes in his mother. OBJECTIVE: Visit Vitals BP 88/68 (BP Location: Left arm, Patient Position: Sitting, BP Cuff Size: Large adult long) Pulse 68 Temp 97.8 F (Temporal) Resp 24 Ht 5' 8 Wt 367 lb 6.4 oz SpO2 93% BMI 55.86 kg/m Smoking Status Former BSA 2.83 m Physical Exam Vitals and nursing note reviewed. Constitutional: Appearance: Normal appearance. He is obese. He is not ill-appearing or diaphoretic. HENT: Head: Normocephalic. Right Ear: Tympanic membrane, ear canal and external ear normal. Left Ear: Tympanic membrane, ear canal and external ear normal. Ears: Comments: Sm amount cerumen removed Nose: Rhinorrhea present. No congestion. Mouth/Throat: Mouth: Mucous membranes are moist. Pharynx: Oropharynx is clear. No oropharyngeal exudate or posterior oropharyngeal erythema. Eyes: Extraocular Movements: Extraocular movements intact. Conjunctiva/sclera: Conjunctivae normal. Neck: Vascular: No carotid bruit. Cardiovascular: Rate and Rhythm: Normal rate and regular rhythm. Pulses: Normal pulses. Heart sounds: Normal heart sounds. Pulmonary: Effort: Pulmonary effort is normal. Breath sounds: Wheezing (faint exp wheeze, lungs diminished) present. Abdominal: General: Bowel sounds are normal. Palpations: Abdomen is soft. Tenderness: There is no abdominal tenderness. Comments: protuberant Musculoskeletal: Cervical back: Neck supple. Right lower leg: Edema present. Left lower leg: Edema present. Comments: Trace-1+ bilat pretibial-pedal Lymphadenopathy: Cervical: No cervical adenopathy. Skin: General: Skin is warm and dry. Capillary Refill: Capillary refill takes 2 to 3 seconds. Neurological: General: No focal deficit present. Mental Status: He is alert. Psychiatric: Mood and Affect: Mood normal. Behavior: Behavior normal. Thought Content: Thought content normal. Judgment: Judgment normal. ASSESSMENT AND PLAN: No follow-ups on file. Problem List Items Addressed This Visit Coronary artery disease involving havasupai coronary artery of havasupai heart without angina pectoris ([facility]) Follow with cardiology Cont b preet, statin, asa Primary hypertension ([facility]) Please check blood pressure daily and record DASH diet Limit caffeine Take medication as directed Contact office if chest pain, pressure, dizziness, shortness of breath, swelling legs Recommend slow position changes Current meds: losartan, metoprolol, spironolactone, torsemide CATERINA (obstructive sleep apnea) You have a diagnosis of obstructive sleep apnea. It is recommended that you wear your PAP device any time while in bed sleeping. Not using the PAP device can increase your risk of elevated/uncontrolled high blood pressure, atrial fibrillation, heart attack, stroke, or sudden . Compliant: Non compliant with PAP use, cannot tolerate wearing mask d/t drying mouth out Is working w pulmonology Hours of use: NA Feels better w use: NA Body mass index (BMI) 50.0-59.9, adult ([facility]) Paroxysmal atrial fibrillation ([facility]) Cardiology Current meds: asa, eliquis, cardizem, metoprolol Recommend working w pulmonology for PAP use as well Bilateral lower extremity edema Continue diuretics Elevation of legs above heart level as much as possible Recommend wearing PAP Chronic obstructive pulmonary disease, unspecified ([facility]) Current meds: trelegy, prn duo neb, xopenex inhaler Pre-diabetes Monitor for s/s of hypoglycemia (sweaty, dizziness, nausea, vomiting, or shakiness). Watch for increase in thirst, urination, or appetite. Inspect feet frequently monitoring for open wounds , and also recommend yearly eye exam. Pt should attempt to remain as physically active as chronic conditions allow, as well as trying to follow a diet low in carbohydrates, and simple sugars. Dose take farxiga more for cardiac, however is providing treatment as well A1c 5.9% 06/19/24 Relevant Orders POCT glycosylated hemoglobin (Hb A1C) docked device (Completed) Mixed hyperlipidemia ([facility]) Current med statin Check labs yearly and prn Chronic diastolic (congestive) heart failure ([facility]) Follows with cardiology Daily weights, limit sodium as well Current meds: asa, farxiga, losartan,b preet, spironolactone, toersemide Check labs prn Encounter for subsequent annual wellness visit (AWV) in Medicare patient - Primary Reviewed Ht/Wt/BMI Recommend eye exam yearly Recommend dental exams twice a year Balance work/leisure activities Exercises is recommended most days of the week (appropriate as chronic conditions allow) Follow up yearly and prn Class 3 severe obesity due to excess calories with serious comorbidity and body mass index (BMI) of 50.0 to 59.9 in adult ([facility]) Discussed with patient their BMI (actual, verses recommended). We have also discussed lifestyle modifications: attempts to perform physical activity as chronic conditions allow, also to monitor dietary intake: increasing protein/fruits/veggies and lowering carb intake (unless contraindicated). Limit sodas, juices, and sugary drinks. Also discussed oral medications that can be utilized for weight loss, as well as surgical options for weight loss. Was considering weight loss surgery in the past, recommend to continue to pursue that avenue to help with weight loss Emphysema, unspecified ([facility]) Telegy, and prn xopenex Pulmonology as well RESOLVED: Morbid (severe) obesity due to excess calories ([facility]) URI (upper respiratory infection) Has had covid exposure, at this point will hold on atb Will give steroids and tessalon pearles Fluids, rest, if resp distress go to ER Relevant Medications benzonatate (Tessalon) 200 MG capsule predniSONE (Deltasone) 20 MG tablet Associated Problem(s): Mixed hyperlipidemia ([facility]) Current med statin Check labs yearly and prn Associated Problem(s): Encounter for subsequent annual wellness visit (AWV) in Medicare patient Reviewed Ht/Wt/BMI Recommend eye exam yearly Recommend dental exams twice a year Balance work/leisure activities Exercises is recommended most days of the week (appropriate as chronic conditions allow) Follow up yearly and prn Associated Problem(s): Pre-diabetes Monitor for s/s of hypoglycemia (sweaty, dizziness, nausea, vomiting, or shakiness). Watch for increase in thirst, urination, or appetite. Inspect feet frequently monitoring for open wounds , and also recommend yearly eye exam. Pt should attempt to remain as physically active as chronic conditions allow, as well as trying to follow a diet low in carbohydrates, and simple sugars. Dose take farxiga more for cardiac, however is providing treatment as well A1c 5.9% 06/19/24 Associated Problem(s): Class 3 severe obesity due to excess calories with serious comorbidity and body mass index (BMI) of 50.0 to 59.9 in adult ([facility]) Discussed with patient their BMI (actual, verses recommended). We have also discussed lifestyle modifications: attempts to perform physical activity as chronic conditions allow, also to monitor dietary intake: increasing protein/fruits/veggies and lowering carb intake (unless contraindicated). Limit sodas, juices, and sugary drinks. Also discussed oral medications that can be utilized for weight loss, as well as surgical options for weight loss. Was considering weight loss surgery in the past, recommend to continue to pursue that avenue to help with weight loss Associated Problem(s): Bilateral lower extremity edema Continue diuretics Elevation of legs above heart level as much as possible Recommend wearing PAP Associated Problem(s): Primary hypertension (CMS/HCC) Please check blood pressure daily and record DASH diet Limit caffeine Take medication as directed Contact office if chest pain, pressure, dizziness, shortness of breath, swelling legs Recommend slow position changes Current meds: losartan, metoprolol, spironolactone, torsemide Associated Problem(s): Paroxysmal atrial fibrillation (CMS/HCC) Cardiology Current meds: asa, eliquis, cardizem, metoprolol Recommend working w pulmonology for PAP use as well Associated Problem(s): Coronary artery disease involving havasupai coronary artery of havasupai heart without angina pectoris (CMS/HCC) Follow with cardiology Cont b preet, statin, asa Associated Problem(s): Chronic diastolic (congestive) heart failure (CMS/HCC) Follows with cardiology Daily weights, limit sodium as well Current meds: asa, farxiga, losartan,b preet, spironolactone, toersemide Check labs prn Associated Problem(s): Emphysema, unspecified (CMS/HCC) Telegy, and prn xopenex Pulmonology as well Associated Problem(s): Chronic obstructive pulmonary disease, unspecified (CMS/HCC) Current meds: trelegy, prn duo neb, xopenex inhaler Associated Problem(s): CATERINA (obstructive sleep apnea) You have a diagnosis of obstructive sleep apnea. It is recommended that you wear your PAP device any time while in bed sleeping. Not using the PAP device can increase your risk of elevated/uncontrolled high blood pressure, atrial fibrillation, heart attack, stroke, or sudden . Compliant: Non compliant with PAP use, cannot tolerate wearing mask d/t drying mouth out Is working w pulmonology Hours of use: NA Feels better w use: NA documented in this encounter [facility] 06-19-2024 Instructions Eusebia Terrell NP - 06/19/2024 10:00 AM EST Finish steroids, tessalon pearles, fluids, rest If worsening in breathing go to Er documented in this encounter [facility] 05-23-2024 Miscellaneous Notes Attempted to call patient an remind that bmp recheck is over dude. not set up, lab slip mailed to patient. documented in this encounter [facility] 05-23-2024 Telephone encounter Note Attempted to call patient an remind that bmp recheck is over dude. not set up, lab slip mailed to patient. [facility] 04-09-2024 History of Present illness Narrative Associated Problem(s): COPD (chronic obstructive pulmonary disease) with emphysema ([facility]) Stable at this time Associated Problem(s): Environmental and seasonal allergies I think this represents more of allergies no viral illness not bacteria OTC allergy meds/nasal steroids Contact office if worsening in symtpoms Pt started having symptoms 3 days ago, symptoms include stuffy nose, coughing, had no color in the phlegm, no headaches, no ear issues, no sinus pain, sore/scratchy throat, drainage, and shaky voice in and out, no nausea/vomiting, or diarrhea, no c/o body aches or chills and or sweats. Pt was taking another persons' amoxicillin (1 in the morning and 1 at night for 2 days) Images from the original note were not included. Elyse Duong is a 58 y.o. male presents with chief complaint of No chief complaint on file. HPI: Sxs started 3 days ago, no fever, chills, sl scratchy throat, no body aches, clear mucus No chest pain, swelling in legs is stable SUBJECTIVE: MEDICATIONS: Current Outpatient Medications Medication Instructions apixaban (ELIQUIS) 5 mg, Oral, 2 times daily aspirin 81 mg, Oral, Daily, Take 81 mg by mouth in the morning. atorvastatin (LIPITOR) 40 mg, Oral, Nightly dapagliflozin (FARXIGA) 10 mg, Oral, Daily dilTIAZem CD (CARDIZEM CD) 240 mg, Oral, Daily Zaobyduesrc-Vugtqiudp-Tqwnjo (Trelegy Ellipta) 100-62.5-25 MCG/ACT aerosol powder 1 puff, Mouth/Throat, Daily, Rinse mouth after use ipratropium-albuterol (Duo-Neb) 0.5-2.5 mg/3 mL nebulizer solution 3 mL, Inhalation, 4 times daily levalbuterol (Xopenex) 45 MCG/ACT inhaler 2 puffs, Inhalation, Every 6 hours PRN losartan (COZAAR) 50 mg, Oral, Daily metoprolol tartrate (LOPRESSOR) 50 mg, Oral, 2 times daily nitroglycerin (NITROSTAT) 0.4 mg, Sublingual, Every 5 min PRN oxygen (O2) gas Inhalation, Continuous Ozempic (0.25 or 0.5 MG/DOSE) 0.25 mg, Subcutaneous, Every 7 days spironolactone (ALDACTONE) 25 mg, Oral, Daily torsemide (DEMADEX) 20 mg, Oral, Twice a day (morning and mid-day) ALLERGIES: Allergies Allergen Reactions Lisinopril Cough REVIEW OF SYMPTOMS: Review of Systems Constitutional: Negative for activity change, appetite change and unexpected weight change. HENT: Negative for ear pain, nosebleeds, sneezing, trouble swallowing and voice change. Sratchy Eyes: Negative for pain, discharge and visual disturbance. Respiratory: Positive for cough and shortness of breath. Negative for apnea, chest tightness and wheezing. Cardiovascular: Positive for leg swelling. Gastrointestinal: Negative for abdominal distention, blood in [...] MEDICAL HISTORY Past Medical History: Diagnosis Date Arrhythmia 05/25/2023 Bilateral lower extremity edema 06/06/2023 Bilateral lower leg cellulitis 06/06/2023 CAD (coronary artery disease) ([facility]) COPD (chronic obstructive pulmonary disease) with emphysema ([facility]) 06/28/2023 Coronary artery disease involving havasupai coronary artery of havasupai heart without angina pectoris ([facility]) 09/21/2022 DENIES H/O BLOOD BORNE DISEASE Hyperlipidemia ([facility]) Hypoxia 06/28/2023 Myocardial infarction ([facility]) CATERINA (obstructive sleep apnea) 05/25/2023 Primary hypertension ([facility]) 05/25/2023 Superficial phlebitis and thrombophlebitis of left lower extremity 08/16/2023 Venous insufficiency of both lower extremities Past Surgical History: Procedure Laterality Date ANGIOPLASTY 2013 CHOLECYSTECTOMY 2016 KNEE SURGERY Left 04/15/2021 SCOPE - [address] GREER ([facility]) family history includes Diabetes in his mother. OBJECTIVE: Visit Vitals BP 120/82 (BP Location: Right arm, Patient Position: Sitting, BP Cuff Size: Large adult long) Pulse 95 Temp 98.1 F (Temporal) Resp 19 Wt 366 lb 6.4 oz SpO2 93% BMI 55.71 kg/m Smoking Status Former BSA 2.82 m Physical Exam Vitals and nursing note reviewed. Constitutional: Appearance: Normal appearance. HENT: Head: Normocephalic. Right Ear: Tympanic membrane, ear canal and external ear normal. There is impacted cerumen (removed w spatula). Left Ear: Tympanic membrane, ear canal and external ear normal. Nose: Rhinorrhea present. No congestion. Mouth/Throat: Mouth: Mucous membranes are moist. Pharynx: Oropharynx is clear. No oropharyngeal exudate or posterior oropharyngeal erythema. Eyes: Extraocular Movements: Extraocular movements intact. Conjunctiva/sclera: Conjunctivae normal. Cardiovascular: Rate and Rhythm: Normal rate and regular rhythm. Pulses: Normal pulses. Heart sounds: Normal heart sounds. Pulmonary: Effort: Pulmonary effort is normal. Breath sounds: No wheezing. Comments: Lungs diminished Musculoskeletal: Cervical back: Neck supple. Right lower leg: Edema present. Left lower leg: Edema present. Comments: 1+ edema bilat Lymphadenopathy: Cervical: No cervical adenopathy. Skin: General: Skin is warm and dry. Capillary Refill: Capillary refill takes 2 to 3 seconds. Neurological: General: No focal deficit present. Mental Status: He is alert. Psychiatric: Mood and Affect: Mood normal. Behavior: Behavior normal. Thought Content: Thought content normal. Judgment: Judgment normal. ASSESSMENT AND PLAN: No follow-ups on file. Problem List Items Addressed This Visit Morbid obesity with BMI of 50.0-59.9, adult (CMS/HCC) COPD (chronic obstructive pulmonary disease) with emphysema (CMS/HCC) Stable at this time Severe persistent asthma, uncomplicated (CMS/HCC) Environmental and seasonal allergies - Primary I think this represents more of allergies no viral illness not bacteria OTC allergy meds/nasal steroids Contact office if worsening in symtpoms documented in this encounter [facility] 03-26-2024 Miscellaneous Notes [employer] called and was unable to leave message for patient to remember to bring pap machine and power cord or SD card to appointment with [facility] on 03/27/24 in [place]. documented in this encounter [facility] 03-26-2024 Telephone encounter Note [facility] called and was unable to leave message for patient to remember to bring pap machine and power cord or SD card to appointment with [facility] on 03/27/24 in [place]. [facility] 02-06-2024 History of Present illness Narrative Associated Problem(s): Morbid obesity with BMI of 50.0-59.9, adult (CMS/HCC) Will try ozempic with new insurance card Associated Problem(s): Other headache syndrome Neuro no deficits Possible related to not wearing pap If worsens contact office Associated Problem(s): Pre-diabetes Has new insurance, will re try with ozempic Associated Problem(s): Primary hypertension (CMS/HCC) Will monitor Associated Problem(s): Paroxysmal atrial fibrillation (CMS/HCC) Continues to be in afib Associated Problem(s): Chronic diastolic heart failure (CMS/HCC) Take farxiga and diuretics and bp meds Associated Problem(s): Arrhythmia Continue with cardiology and eliquis and current meds Associated Problem(s): COPD (chronic obstructive pulmonary disease) with emphysema (CMS/HCC) Cont inhalers, and Wearing oxygen Cont w stripe marker Pt has been having dizziness and headaches for 3-4 weeks now pt did let cardio know and they did blood work but nothing else came about. Images from the original note were not included. Elyse Duong is a 58 y.o. male presents with chief complaint of No chief complaint on file. HPI: Headache This is a new problem. The current episode started 1 to 4 weeks ago. The problem occurs intermittently. The problem has been unchanged. The pain is located in the Vertex region. The pain does not radiate. The quality of the pain is described as aching. The pain is at a severity of 3/10. The pain is mild. Associated symptoms include dizziness and neck pain. Pertinent negatives include no blurred vision, ear pain, eye pain, loss of balance, phonophobia, photophobia, seizures or weakness. Nothing aggravates the symptoms. He has tried nothing for the symptoms. His past medical history is significant for hypertension and obesity. Hypertension This is a chronic problem. The current episode started more than 1 year ago. The problem is unchanged. The problem is controlled. Associated symptoms include headaches, neck pain, peripheral edema and shortness of breath. Pertinent negatives include no blurred vision. There are no associated agents to hypertension. Risk factors for coronary artery disease include diabetes mellitus, dyslipidemia, male gender, obesity and sedentary lifestyle. Past treatments include angiotensin blockers, diuretics, beta blockers and calcium channel blockers. The current treatment provides significant improvement. There are no compliance problems. Hypertensive end-organ damage includes CAD/[place]. Identifiable causes of hypertension include sleep apnea. SUBJECTIVE: MEDICATIONS: Current Outpatient Medications Medication Instructions apixaban (ELIQUIS) 5 mg, Oral, 2 times daily aspirin 81 mg, Oral, Daily atorvastatin (LIPITOR) 40 mg, Oral, Nightly dilTIAZem CD (CARDIZEM CD) 240 mg, Oral, Daily Farxiga 10 mg, Oral, Daily Iemodhdhalu-Kfzkfuxsh-Msiayi (Trelegy Ellipta) 100-62.5-25 MCG/ACT aerosol powder 1 puff, Mouth/Throat, Daily, Rinse mouth after use ipratropium-albuterol (Duo-Neb) 0.5-2.5 mg/3 mL nebulizer solution 3 mL, Inhalation, 4 times daily levalbuterol (Xopenex) 45 MCG/ACT inhaler 2 puffs, Inhalation, Every 6 hours PRN losartan (COZAAR) 50 mg, Oral, Daily RT metoprolol tartrate (LOPRESSOR) 50 mg, Oral, 2 times daily nitroglycerin (NITROSTAT) 0.4 mg, Sublingual, Every 5 min PRN oxygen (O2) gas Inhalation, Continuous Ozempic (0.25 or 0.5 MG/DOSE) 0.25 mg, Subcutaneous, Every 7 days spironolactone (ALDACTONE) 25 mg, Oral, Daily torsemide (DEMADEX) 20 mg, Oral, Twice a day (morning and mid-day) ALLERGIES: Allergies Allergen Reactions Lisinopril Cough REVIEW OF SYMPTOMS: Review of Systems Constitutional: Negative for activity change, appetite change and unexpected weight change. HENT: Negative for ear pain, nosebleeds, sneezing, trouble swallowing and voice change. Eyes: Negative for blurred vision, photophobia, pain, discharge and visual disturbance. Respiratory: Positive for shortness of breath. Negative for apnea, chest tightness and wheezing. Cardiovascular: Negative for leg swelling. Gastrointestinal: Negative for abdominal distention, blood in stool, constipation and diarrhea. Genitourinary: Negative for decreased urine volume, difficulty urinating, dysuria and hematuria. Musculoskeletal: Positive for neck pain. Skin: Negative for color change. Neurological: Positive for dizziness and headaches. Negative for tremors, seizures, weakness and loss of balance. Psychiatric/Behavioral: Negative for agitation, decreased concentration, hallucinations, self-injury and suicidal ideas. The patient is not nervous/anxious. All other systems reviewed and are negative. Hematological: Negative for adenopathy. Does not bruise/bleed easily. Endocrine: Negative for cold intolerance, heat intolerance, polydipsia and polyuria. Allergic/Immunologic: Negative for environmental allergies and food allergies. PAST MEDICAL HISTORY Past Medical History: Diagnosis Date Arrhythmia 05/25/2023 Bilateral lower extremity edema 06/06/2023 Bilateral lower leg cellulitis 06/06/2023 CAD (coronary artery disease) ([facility]) COPD (chronic obstructive pulmonary disease) with emphysema ([facility]) 06/28/2023 Coronary artery disease involving havasupai coronary artery of havasupai heart without angina pectoris ([facility]) 05/25/2023 DENIES H/O BLOOD BORNE DISEASE Hyperlipidemia ([facility]) Hypoxia 06/28/2023 Myocardial infarction ([facility]) CATERINA (obstructive sleep apnea) 05/25/2023 Primary hypertension ([facility]) 05/25/2023 Superficial phlebitis and thrombophlebitis of left lower extremity 08/16/2023 Venous insufficiency of both lower extremities Past Surgical History: Procedure Laterality Date ANGIOPLASTY 2013 CHOLECYSTECTOMY 2016 KNEE SURGERY Left 04/15/2021 SCOPE - [address] GREER ([facility]) family history includes Diabetes in his mother. OBJECTIVE: Visit Vitals BP 102/76 (BP Location: Left arm, Patient Position: Sitting, BP Cuff Size: Large adult long) Pulse 95 Temp 98.1 F (Temporal) Resp 20 Ht 5' 8 Wt 369 lb 3.2 oz SpO2 94% BMI 56.14 kg/m Smoking Status Former BSA 2.83 m Physical Exam Vitals and nursing note reviewed. Constitutional: General: He is not in acute distress. Appearance: Normal appearance. He is obese. He is not toxic-appearing. HENT: Head: Normocephalic. Right Ear: Tympanic membrane, ear canal and external ear normal. Left Ear: Tympanic membrane, ear canal and external ear normal. Nose: Congestion present. No rhinorrhea. Mouth/Throat: Mouth: Mucous membranes are moist. Pharynx: Oropharynx is clear. No oropharyngeal exudate or posterior oropharyngeal erythema. Eyes: Extraocular Movements: Extraocular movements intact. Conjunctiva/sclera: Conjunctivae normal. Pupils: Pupils are equal, round, and reactive to light. Cardiovascular: Rate and Rhythm: Normal rate. Rhythm irregular. Pulses: Normal pulses. Heart sounds: Normal heart sounds. Pulmonary: Effort: Pulmonary effort is normal. Breath sounds: Wheezing (exp wheeze) present. Abdominal: General: Bowel sounds are normal. There is no distension. Palpations: Abdomen is soft. There is no mass. Tenderness: There is no abdominal tenderness. Musculoskeletal: Cervical back: Neck supple. Right lower leg: Edema present. Left lower leg: Edema present. Lymphadenopathy: Cervical: No cervical adenopathy. Skin: General: Skin is warm and dry. Capillary Refill: Capillary refill takes 2 to 3 seconds. Neurological: General: No focal deficit present. Mental Status: He is alert. Cranial Nerves: No cranial nerve deficit. Comments: Neg ulnar drift, neg romberg Psychiatric: Mood and Affect: Mood normal. Behavior: Behavior normal. Thought Content: Thought content normal. Judgment: Judgment normal. ASSESSMENT AND PLAN: No follow-ups on file. Problem List Items Addressed This Visit Arrhythmia Continue with cardiology and eliquis and current meds Relevant Medications apixaban (Eliquis) 5 MG tablet dilTIAZem CD (Cardizem CD) 240 MG 24 hr capsule Primary hypertension ([facility]) Will monitor Relevant Medications losartan (Cozaar) 50 MG tablet metoprolol tartrate (Lopressor) 50 MG tablet Paroxysmal atrial fibrillation ([facility]) Continues to be in afib Relevant Medications aspirin 81 MG EC tablet metoprolol tartrate (Lopressor) 50 MG tablet COPD (chronic obstructive pulmonary disease) with emphysema ([facility]) Cont inhalers, and Wearing oxygen Cont w stripe marker Pre-diabetes - Primary Has new insurance, will re try with ozempic Relevant Medications dapagliflozin (Farxiga) 10 MG Chronic diastolic heart failure (CMS/HCC) Take farxiga and diuretics and bp meds Relevant Medications dapagliflozin (Farxiga) 10 MG Other headache syndrome Neuro no deficits Possible related to not wearing pap If worsens contact office Other Visit Diagnoses Hyperlipidemia, unspecified ([facility]) Relevant Medications atorvastatin (Lipitor) 40 MG tablet Chronic obstructive pulmonary disease, unspecified COPD type ([facility]) Relevant Medications Pdhnkevmfvc-Twwldfzqz-Cglbia (Trelegy Ellipta) 100-62.5-25 MCG/ACT aerosol powder levalbuterol (Xopenex) 45 MCG/ACT inhaler Chest pain due to CAD ([facility]) documented in this encounter [facility] 02-05-2024 Miscellaneous Notes OV 01/21/24 BMP 01/21/24 documented in this encounter [facility] 02-05-2024 Telephone encounter Note OV 01/21/24 BMP 01/21/24 [facility] 01-21-2024 History of Present illness Narrative Images from the original note were not included. HEART FAILURE CLINIC Elyse Duong is a 58 y.o. male seen in the Heart Failure Clinic today for follow up. He has history of chronic heart failure with preserved ejection fraction. He has a history of coronary artery disease s/p bare metal stenting of the RCA in 2012, persistent atrial fibrillation,severe COPD with chronic oxygen use, untreated sleep apnea, hyperlipidemia, and obesity. He was following with another cardiology group in [place] and had multiple hospitalizations for issues related to atrial fibrillation, volume overload and COPD exacerbations in the fall sof 2022 at [facility]. He was seen as a new patient in August. At that time, he was noted to be volume overloaded and his furosemide was switched to torsemide started on Farxiga at with plan for spironolactone which was initiated after follow-up lab work. He returns today for routine follow-up. His weight is down 16 lb and his SBP is 90 here today. He states his blood pressure is usually within normal parameters at home. He does feel mildly dizzy and nauseated today. He reports his leg swelling and weeping has resolved. He does wear continuous oxygen and has shortness of breath when he walks longer than normal distances or exerts himself such as going up a flight of stairs. He does not note PND, orthopnea, abdominal bloating, chest discomfort or palpitations. He drinks roughly 64 oz per day and states he occasionally will go over his fluid. HEART FAILURE SYNOPSIS Type of Heart Failure: diastolic Last EF: 60% QRS Interval: 0.10 NYHA Class: III AHA Stage: C Cardiac Device: None Last Hospitalization: 05/10 Estimated Dry Weight: 360 Current Weight: Weight: (!) 164.7 kg (363 lb 3.2 oz) Guideline-Directed Medication Therapy Beta Preet: Lopressor 50 mg b.i.d. in addition to Cardizem 240 mg CD daily ACEi / ARB / ARNi: Losartan 50 mg daily MRA: spironolactone SGLT-2i: Farxiga 10 mg daily Torsemide 40 mg daily ASSESSMENT Chronic diastolic heart failure, NYHA class III Coronary artery disease s/p bare metal stenting, patent in 2014 with occluded AV groove LCX Persistent atrial fibrillation, on anticoagulation Chronic hypoxic respiratory failure, secondary to severe COPD on oxygen Bilateral lower extremity venous stasis ulcerations Untreated obstructive sleep apnea Primary hypertension Extreme obesity with a BMI of 55 PLAN He appears well compensated on exam today. He is reporting NYHA 3 symptoms with his severe COPD contributing. He is on good medical therapy and will continue current medications. However, given his SBP of 90, dizziness and report of nausea today, will have him get lab work on the way out. If he is noted to be dehydrated will consider decreasing torsemide. Otherwise, will decrease losartan. He will return to the clinic in 6 months and he will call with any concerns. Patient Instructions Blood work today Will adjust your medications if necessary after review the results New Orders Orders Placed This Encounter Procedures Basic Metabolic Panel Standing Status: Future Number of Occurrences: 1 Standing Expiration Date: 01/20/2025 Order Specific Question: Release to patient via 3X Systemst? Answer: Immediate [1] Magnesium Standing Status: Future Number of Occurrences: 1 Standing Expiration Date: 01/20/2025 Order Specific Question: Release to patient via Feedlookshart? Answer: Immediate [1] B-type natriuretic peptide Standing Status: Future Number of Occurrences: 1 Standing Expiration Date: 01/20/2025 Order Specific Question: Release to patient via Feedlookshart? Answer: Immediate [1] Medications Changed @EDPTMEDCHANGE@ SUBJECTIVE REVIEW OF SYSTEMS Review of Systems Constitutional: Negative for fatigue and unexpected weight change (lost 13 lbs since last chf ov). HENT: Negative for nosebleeds. Respiratory: Negative for cough, chest tightness, shortness of breath and wheezing. Cardiovascular: Negative for chest pain, palpitations and leg swelling. Gastrointestinal: Positive for nausea. Negative for abdominal distention, abdominal pain and blood in stool. Genitourinary: Negative for difficulty urinating, dysuria and hematuria. Musculoskeletal: Positive for back pain. Neurological: Positive for dizziness. Negative for syncope, light-headedness and headaches. Hematological: Does not bruise/bleed easily. CURRENT MEDICATIONS Current Outpatient Medications Medication Sig Dispense Refill apixaban (ELIQUIS) 5 mg tablet Take 1 tablet (5 mg total) by mouth in the morning and 1 tablet (5 mg total) before bedtime. aspirin 81 mg chewable tablet Chew 2 tablets (162 mg total) and swallow in the morning. 2 in the morning. atorvastatin (LIPITOR) 40 mg tablet Take 1 tablet (40 mg total) by mouth in the morning. dapagliflozin propanediol (FARXIGA) 10 mg tablet Take 1 tablet (10 mg total) by mouth in the morning. 30 tablet 5 dilTIAZem CD (CARDIZEM CD) 240 mg 24 hr capsule Take 1 capsule (240 mg total) by mouth in the morning. vhyckvozppj-aulqjczxu-migiqlon (TRELEGY ELLIPTA) 100-62.5-25 mcg blister with device Inhale 1 puff in the morning. levalbuterol (XOPENEX HFA) 45 mcg/actuation inhaler Inhale 1-2 puffs every 4 (four) hours as needed. levalbuterol (XOPENEX) 1.25 mg/3 mL nebulizer solution INHALE 3 ML BY NEBULIZATION 4 (FOUR) TIMES A DAY NEEDED FOR WHEEZING. 360 mL 5 losartan (COZAAR) 50 mg tablet Take 1 tablet (50 mg total) by mouth in the morning. metoprolol tartrate (LOPRESSOR) 50 mg tablet Take 1 tablet (50 mg total) by mouth in the morning and 1 tablet (50 mg total) before bedtime. nitroglycerin (NITROSTAT) 0.[address] 1 tablet (0.4 mg total) under the tongue every 5 (five) minutes as needed for chest pain. oxygen Inhale continuously. spironolactone (ALDACTONE) 25 mg tablet Take 1 tablet (25 mg total) by mouth in the morning. 90 tablet 3 torsemide (DEMADEX) 20 mg tablet TAKE 2 TABLETS (40 MG TOTAL) BY MOUTH DAILY. 180 tablet 1 No current facility-administered medications for this visit. ALLERGIES Allergies Allergen Reactions Lisinopril Cough OBJECTIVE VITAL SIGNS BP 90/58 (BP Site: Left Arm, BP Postition: Sitting, BP CUFF SIZE: L (13-17 inches)) Pulse 90 Ht 172.7 cm (5' 8 ) Wt (!) 164.7 kg (363 lb 3.2 oz) SpO2 95% BMI 55.22 kg/m Last 3 Weight Readings 01/21/24 1428 Weight: (!) 164.7 kg (363 lb 3.2 oz) Body mass index is 55.22 kg/m . No data recorded Pulse Ox: @FLOWSTAT(10:24)@ Supplemental O2: LAST 3 WEIGHTS PULLED FROM EPIC Last 3 Weight Readings 01/21/24 1428 Weight: (!) 164.7 kg (363 lb 3.2 oz) Body mass index is 55.22 kg/m . PHYSICAL EXAM General appearance: Awake, alert, cooperative Head: Normocephalic, without obvious abnormality, atraumatic Eyes: Conjunctivae/corneas clear, EOM's intact Neck: no adenopathy, no carotid bruit, no JVD, and thyroid: not enlarged Lungs: clear to auscultation bilaterally and no rhonchi or crackles , ' symmetric Heart: regular rate and rhythm, S1, S2 normal, no murmur, click, rub or gallop Abdomen: Soft, non-tender, bowel sounds normal, no organomegaly Extremities: extremities normal, atraumatic, no cyanosis or edema Skin: Skin color, turgor normal, no rashes or lesions Neurologic: Grossly normal Past Medical History: Diagnosis Date Atrial fibrillation ([facility]) Bilateral lower extremity edema CAD (coronary artery disease) Hypertension Hypoxia Knee pain Lung nodule Mixed hyperlipidemia Morbid obesity ([facility]) Myocardial infarction ([facility]) Obesity Pre-diabetes Pulmonary emphysema ([facility]) Sleep apnea knee pain Superficial phlebitis Venous insufficiency Past Surgical History: Procedure Laterality Date CHOLECYSTECTOMY CORONARY STENT PLACEMENT 2012 KNEE SURGERY Family History Problem Relation Age of Onset Hypertension Mother Diabetes Mother Social History Socioeconomic History Marital status: Spouse name: Not on file Number of children: Not on file Years of education: Not on file Highest education level: Not on file Occupational History Not on file Tobacco Use Smoking status: Former Current packs/day: 0.00 Types: Cigarettes Quit date: 2012 Years since quittin.6 Smokeless tobacco: Never Vaping Use Vaping status: Never Used Substance and Sexual Activity Alcohol use: Never Drug use: Never Sexual activity: Defer Other Topics Concern Caffeine Use Yes Comment: 2 hot chocolates this morning Social History Narrative Not on file Social Determinants of Health Financial Resource Strain: Not on file Food Insecurity: No Food Insecurity (07/26/2023) Hunger Screening Food Insecurity - Worry: Never True Food Insecurity - Inability: Never True Transportation Needs: Not on file Physical Activity: Not on file Stress: Not on file Social Connections: Not on file Interpersonal Safety: Not on file Housing Instability: Not on file AYDEN Jasso APRN-CNP 01/21/24 1522 documented in this encounter [facility] 01-21-2024 Instructions SHAYLA Messer - 01/21/2024 2:30 PM EDT Blood work today Will adjust your medications if necessary after review the results documented in this encounter [facility] 11-14-2023 Miscellaneous Notes 11/12 Order received 1st call to schedule Vm is not set up sent letter Pap Order and 10/24 and 05/03 notes in epic BIPAP with TCO2 monitoring documented in this encounter [facility] 11-14-2023 Telephone encounter Note 11/12 Order received 1st call to schedule Vm is not set up sent letter Pap Order and 10/24 and 05/03 notes in epic BIPAP with TCO2 monitoring [facility] 11-13-2023 History of Present illness Narrative Overnight pulse ox reviewed and only done on 3L. Needs repeat PAP titration with BIPAP and TCO2 monitoring to assess for needs of bleed in O2 please. documented in this encounter [facility] 11-11-2023 Miscellaneous Notes Requesting 90 day supply instead of 30 OV 08/20/23 BMP 10/30/23 documented in this encounter [facility] 11-11-2023 Telephone encounter Note Requesting 90 day supply instead of 30 OV 08/20/23 BMP 10/30/23 [facility] 10-31-2023 Miscellaneous Notes Images from the original note were not included. Nishi Max RN 10/31/2023 2:55 PM EDT Back to Top Called patient with results, v/u. Orders placed in separate encounter. Nishi Max RN 10/31/2023 8:58 AM EDT Shakira Purdy RN 10/31/2023 8:46 AM EDT [employer] attempted to call patient and LM on VM but VM box has not been set up. [facility] [employer] called patients to review normal mag results. She will have pt call the [facility] regarding [facility] recommendations on other lab results. Samara Noel MD 10/31/2023 8:09 AM EDT Labs look good. We discussed adding spironolactone instead of the potassium that he is on. Have him stop the potassium completely and start spironolactone 25 mg daily, he needs a repeat basic metabolic panel in 7-10 days Nishi Max RN 10/31/2023 6:40 AM EDT Labs ordered at OV 3 were supposed to be done 1 week after stopping Lasix and starting Torsemide 40mg daily, he is taking Potassium 10meq BID. documented in this encounter [facility] 10-31-2023 Telephone encounter Note Images from the original note were not included. Nishi Max RN 10/31/2023 2:55 PM EDT Back to Top Called patient with results, v/u. Orders placed in separate encounter. Nishi Max RN 10/31/2023 8:58 AM EDT Shakira Purdy RN 10/31/2023 8:46 AM EDT [employer] attempted to call patient and LM on VM but VM box has not been set up. [employer] called patients to review normal mag results. She will have pt call the [facility] regarding [facility] recommendations on other lab results. Samara Noel MD 10/31/2023 8:09 AM EDT Labs look good. We discussed adding spironolactone instead of the potassium that he is on. Have him stop the potassium completely and start spironolactone 25 mg daily, he needs a repeat basic metabolic panel in 7-10 days Nishi Max RN 10/31/2023 6:40 AM EDT Labs ordered at 3 were supposed to be done 1 week after stopping Lasix and starting Torsemide 40mg daily, he is taking Potassium 10meq BID. [facility] 10-25-2023 History of Present illness Narrative Images from the original note were not included. [facility] Progress Note Patient - Elyse Duong Age - 58 y.o. - 1965 ASSESSMENT 1. Chronic hypoxic respiratory failure 2. Moderately severe COPD 3. History of tobacco use 4. CATERINA on BiPAP (Auto) 5. Hypertension 6. CAD 7. Stable bilateral small pulmonary nodules, largest 6 mm 8. Restrictive lung physiology related to body habitus. No ILD on CT chest. PLAN Continue Trelegy and PRN aerosols Continue oxygen therapy for goal saturation 88-92% Will need imaging reports from [facility] Weight loss would be helpful in reducing dyspnea symptoms. Heart failure clinic follow up. Deep breathing exercises. Maintain up to date on routine vaccination. Adherence to bipap advised. Will obtain nocturnal pulse ox while on RA with BIPAP to assess for indication of bleed in O2. RTC in 5 months or earlier if needed. SUBJECTIVE Mr. Duong presents today for follow up of his COPD and CATERINA. He has been on Trelegy daily and takes 1 aerosol daily without issue. Patient had hospitalization for his heart failure since last office visit and was discharged on oxygen. He is following up with cardiology and has plans to establish with heart failure clinic in [facility]. He had CTA chest in March at outside facility but cannot recall where. He thinks it was likely [facility]. He is not using his BIPAP at all since being prescribed oxygen as he does not have an adapter to bleed in O2 via BIPAP and was fearful of not being on the oxygen with sleep. He continues to be labored with exertion and is minimally active. Wheezing only with heaving exertion. He is on 3 pulse dose via POC. No new or recent symptoms of respiratory illness. His BP is low today but he is asymptomatic and denies any dizziness, lightheadedness or CP. VITALS BP (!) 83/49 Pulse 63 Ht 172.7 cm (5' 8 ) Wt (!) 165.9 kg (365 lb 12.8 oz) SpO2 94% Comment: Arrived on 3Lnc of O2 BMI 55.62 kg/m Exam General: Alert, oriented, no acute distress, nontoxic, well nourished. HEENT: Moist mucosal membranes, no oral lesions or oral thrush, trachea midline, thick neck Chest: Clear to auscultation bilaterally without any crackles, wheezes, rhonchi. Normal AP diameter. CV: Regular rate regular rhythm Extremities: No edema, erythema, distal cyanosis, clubbing Integumentary: Warm and dry. No rash or lesion Neuro: No lateralizing deficits. No tremors Meds Medications Reviewed. Dr. Lisa Cervantes DO. [facility] Office: [phone] documented in this encounter [facility] 10-24-2023 Miscellaneous Notes [employer] called patient's mobile number, stated call could not be completed. [employer] called patient's home phone, phone rang and rang until finally a busy tone came on. Unable to make contact with patient. [facility] [employer] needed to see if patient could bring his PAP machine with him to his appointment on 10/25/2023 documented in this encounter [facility] 10-24-2023 Telephone encounter Note [employer] called patient's mobile number, stated call could not be completed. [employer] called patient's home phone, phone rang and rang until finally a busy tone came on. Unable to make contact with patient. [facility] [employer] needed to see if patient could bring his PAP machine with him to his appointment on 10/25/2023 [facility] 10-24-2023 Miscellaneous Notes Pt was a no show for his JZL appt. T/C to pt to r/s , no answer no v/m. Letter mailed. documented in this encounter [facility] 10-24-2023 Telephone encounter Note Pt was a no show for his JZL appt. T/C to pt to r/s , no answer no v/m. Letter mailed. [facility] 10-23-2023 Miscellaneous Notes Attempted to phone pt to remind of appt scheduled for 10/24/23, phone just rings and then goes busy. documented in this encounter [facility] 10-23-2023 Telephone encounter Note Attempted to phone pt to remind of appt scheduled for 10/24/23, phone just rings and then goes busy. [facility] 10-11-2023 Miscellaneous Notes Was sent 08/20/23 with 5 refills. No show'd last appt 09/24/23. Not sending 90 as cannot confirm pt requested. Attempted to call him and no answer. documented in this encounter [facility] 10-11-2023 Telephone encounter Note Was sent 08/20/23 with 5 refills. No show'd last appt 09/24/23. Not sending 90 as cannot confirm pt requested. Attempted to call him and no answer. [facility] 10-08-2023 History of Present illness Narrative Subjective Elyse Duong is a 58 y.o. male Chief Complaint Follow-up HPI Patient is here for follow-up continue management for coronary artery disease with prior PCI to the RCA with known occlusion of small left circumflex, morbid obesity, hypertension, hyperlipidemia and sleep apnea. He also had previous history of right heart failure. Since last time I saw him the patient had been followed by Dr. Covington the last few times. He reported he was at [facility] for atrial fibrillation. His diltiazem dose was increased. He described functional class III due to morbid obesity and cor pulmonale. He remains reasonably active. He has not had any meaningful weight loss. He has not had any recent changes in his cardiac status or symptoms. Assessment 1. Coronary artery disease with prior PCI to the RCA with known occlusion of his left circumflex last invasive evaluation back in 2014 demonstrated occlusion of the circumflex and patent RCA. He denies any angina 2. Paroxysmal atrial fibrillation currently in normal sinus rhythm 3. Morbid obesity with BMI close to 56 4. History of right heart failure and cor pulmonale due to morbid obesity 5. Sleep apnea 6. Hypertension 7. Hyperlipidemia Plan 1. I recommend patient to continue present medical regimen 2. Will plan on repeating his lab work 3. Will bring him back in 6 months with an EKG 4. Continue efforts to lose weight and exercise and be compliant with CPAP 5. I advised him to discuss with his PCP the possibility of using Mounjaro or Ozempic to help him addressing his weight loss Review of Systems All other systems reviewed and are negative. Vitals: 10/08/23 1053 BP: 110/70 BP Location: Right arm Patient Position: Sitting Pulse: 64 Weight: (!) 168 kg (370 lb) Height: 1.727 m (5' 8 ) Objective Physical Exam Constitutional: Appearance: Normal appearance. HENT: Nose: Nose normal. Neck: Vascular: No carotid bruit. Cardiovascular: Rate and Rhythm: Normal rate. Pulses: Normal pulses. Heart sounds: Normal heart sounds. Pulmonary: Effort: Pulmonary effort is normal. Abdominal: General: Bowel sounds are normal. Palpations: Abdomen is soft. Musculoskeletal: General: Normal range of motion. Cervical back: Normal range of motion. Right lower leg: No edema. Left lower leg: No edema. Skin: General: Skin is warm and dry. Neurological: General: No focal deficit present. Mental Status: He is alert. Psychiatric: Mood and Affect: Mood normal. Behavior: Behavior normal. Thought Content: Thought content normal. Judgment: Judgment normal. Allergies Lisinopril Current Medications Current Outpatient Medications: apixaban (Eliquis) 5 mg tablet, Take 1 tablet (5 mg) by mouth 2 times a day., Disp: , Rfl: aspirin 81 mg EC tablet, Take 1 tablet (81 mg) by mouth once daily., Disp: , Rfl: atorvastatin (Lipitor) 40 mg tablet, Take 1 tablet (40 mg) by mouth once daily at bedtime., Disp: , Rfl: cholecalciferol (Vitamin D-3) 50,000 unit capsule, Take 1 capsule (50,000 Units) by mouth once daily., Disp: , Rfl: dapagliflozin propanediol (Farxiga) 10 mg, Take 1 tablet (10 mg) by mouth once daily., Disp: , Rfl: dilTIAZem CD (Cardizem CD) 240 mg 24 hr capsule, Take 1 capsule (240 mg) by mouth once daily., Disp: 90 capsule, Rfl: 3 levalbuterol (Xopenex) 45 mcg/actuation inhaler, Inhale 1-2 puffs., Disp: , Rfl: losartan (Cozaar) 50 mg tablet, TAKE 1 TABLET BY MOUTH EVERY DAY, Disp: 90 tablet, Rfl: 3 metoprolol tartrate (Lopressor) 25 mg tablet, Take 1 tablet (25 mg) by mouth 2 times a day., Disp: , Rfl: nitroglycerin (Nitrostat) 0.4 mg SL tablet, Place 1 tablet (0.4 mg) under the tongue every 5 minutes if needed., Disp: , Rfl: potassium chloride CR (Klor-Con) 10 mEq ER tablet, Take 2 tablets (20 mEq) by mouth once daily. Do not crush, chew, or split., Disp: , Rfl: torsemide (Demadex) 20 mg tablet, Take 1 tablet (20 mg) by mouth once daily., Disp: , Rfl: Assessment/Plan 1. 2-vessel coronary artery disease 2. Paroxysmal atrial fibrillation (Multi) Follow Up In Cardiology 3. Essential hypertension 4. Mixed hyperlipidemia 5. Old WV (myocardial infarction) 6. Morbid obesity with BMI of 50.0-59.9, adult (Multi) 7. Former smoker Scribe Attestation By signing my name below, I, Nelson Ray LPN attest that this documentation has been prepared under the direction and in the presence of Madison Blanco MD. Provider Attestation - Scribe documentation All medical record entries made by the Scribe were at my direction and personally dictated by me. I have reviewed the chart and agree that the record accurately reflects my personal performance of the history, physical exam, discussion and plan. documented in this encounter [facility] Work Phone: 10-08-2023 Instructions Cornelia Dubois LPN - 10/08/2023 11:10 AM EDT Please bring all medicines, vitamins, and herbal supplements with you when you come to the office. Prescriptions will not be filled unless you are compliant with your follow up appointments or have a follow up appointment scheduled as per instruction of your physician. Refills should be requested at the time of your visit. BMI was above normal measurement. Current weight: (!) 168 kg (370 lb) Weight change since last visit (-) denotes wt loss 10 lbs Weight loss needed to achieve BMI 25: 205.9 Lbs Weight loss needed to achieve BMI 30: 173.1 Lbs Provided instructions on dietary changes Provided instructions on exercise. documented in this encounter [facility] Work Phone: 08-21-2023 Miscellaneous Notes Patient seen yesterday in [place] as new patient. Calling back today as directed to confirm yes, he is taking potassium 10meq BID. Asking if there are any chagnes? Cally told me yesterday and I told her to put it on his med list and he has blood work that he will be doing before we reassess his dose Detailed VM left for patient with IMH response. We will re evaluate once labs completed as ordered. Patient calling clinic again asking what to take. Relayed I left him a VM yesterday to continue as he is and get lab work done in a week as previously relayed. [facility] Telephone encounter Note Patient seen yesterday in [place] as new patient. Calling back today as directed to confirm yes, he is taking potassium 10meq BID. Asking if there are any chagnes? [facility] 08-21-2023 Telephone encounter Note Cally told me yesterday and I told her to put it on his med list and he has blood work that he will be doing before we reassess his dose [facility] 08-21-2023 Telephone encounter Note Detailed VM left for patient with IMH response. We will re evaluate once labs completed as ordered. [facility] 08-21-2023 Telephone encounter Note Patient calling clinic again asking what to take. Relayed I left him a VM yesterday to continue as he is and get lab work done in a week as previously relayed. [facility] 08-20-2023 History of Present illness Narrative Images from the original note were not included. [facility] Patient: Elyse Duong Date of : 1965 Age: 58 y.o. Date of Encounter: 08/20/2023 REASON FOR VISIT: Chronic heart failure. Dear EUSEBIA TERRELL, PATSY-NATALIA & Faith Mandujano MD We had the pleasure of seeing your patient, Elyse Duong, in the [facility] on 08/20/2023. Mr. Duong is a 58 y.o. male whom we are seeing as a new patient visit for his history of chronic heart failure with preserved ejection fraction. He has a history of coronary artery disease s/p bare metal stenting of the RCA in 2012, persistent atrial fibrillation,severe COPD with chronic oxygen use, untreated sleep apnea, hyperlipidemia, and obesity. He was following with another cardiology group in [place] and had multiple hospitalizations for issues related to atrial fibrillation, volume overload and COPD exacerbations in the fall of 2022 at [facility]. SUBJECTIVE HPI Mr. Duong is here for initial evaluation of his heart failure symptoms at the request of my partner in the cardiology clinic who he established care with recently after switching cardiology groups. He tells me that he was admitted to the hospital multiple times in the fall with issues related to volume overload and was put on diuretics but then taken off of them. He was told to take Lasix 40 mg daily but has not started taking it yet and is on potassium twice a day. His heart rate has been better controlled now that he is on diltiazem in addition to metoprolol. He denies any anginal chest pain. He gets short of breath with mild exertion such as walking around the house. He is supposed to be wearing oxygen continuously but did not bring in from the car today. He does not tolerate wearing the CPAP at night. He was told to keep hydrated and does not restrict his fluid or sodium intake. Blood pressure has been mildly elevated. He feels his weight has gone up but does not have a scale at home. His weight is up to the 370s today when he was discharged from the hospital he was in the 360s. Currently, he is on losartan 50 mg daily, metoprolol tartrate 50 mg b.i.d., diltiazem CD 240 mg daily, Lasix 40 mg daily and potassium. I reviewed the notes sent over from [facility] and the recent visit with cardiology. Labs from [facility] 08/06/23: A1c 6.0%, BUN 19, creatinine 1.01, sodium 142, potassium 4.1, AST 13, ALT 13, ALP 120, albumin 3.3, cholesterol 135 triglyceride 122, LDL 48 I reviewed images of the surface echocardiogram which was done at another hospital on 04/09/2023 which showed preserved EF 60% and mild RV dilatation with normal RV function. RVSP is in the 30s. Cardiac testing reviewed: Cardiac catheterization 11/03/2014 [facility]: Patent RCA stent with 40% stenosis, occluded AV groove LCX, no significant obstructive disease otherwise Outside [facility] 04/09/2023: LVEF 60%, mild RV dilatation. Nuclear stress test 10/02/2022 [facility]: Normal perfusion without ischemia or infarction. LVEF 52% Social history: Prior history smoking, rare alcohol use. REVIEW OF SYSTEMS Review of Systems Constitutional: Positive for malaise/fatigue and weight gain. Negative for decreased appetite, fever and weight loss. HENT: Negative for congestion and nosebleeds. Eyes: Negative for blurred vision and visual disturbance. Cardiovascular: Positive for leg swelling. Negative for chest pain, dyspnea on exertion, near-syncope, orthopnea, palpitations and syncope. Respiratory: Positive for shortness of breath (with exertion) and wheezing (hx of asthma). Negative for cough. Hematologic/Lymphatic: Does not bruise/bleed easily. Skin: Negative for color change, dry skin and rash. Musculoskeletal: Negative for joint pain, joint swelling, muscle cramps and muscle weakness. Gastrointestinal: Negative for bloating, abdominal pain, constipation, diarrhea, heartburn, hematochezia, melena, nausea and vomiting. Genitourinary: Positive for frequency. Negative for hematuria. Neurological: Negative for dizziness, headaches, light-headedness, loss of balance, numbness and paresthesias. Psychiatric/Behavioral: Negative for altered mental status. The patient has insomnia. The patient is not nervous/anxious. CURRENT MEDICATIONS: His medications were reviewed and reconciled in the electronic medical record. Current Outpatient Medications Medication Sig Dispense Refill apixaban (ELIQUIS) 5 mg tablet Take 1 tablet (5 mg total) by mouth in the morning and 1 tablet (5 mg total) before bedtime. aspirin 81 mg chewable tablet Chew 1 tablet (81 mg total) and swallow in the morning. atorvastatin (LIPITOR) 40 mg tablet Take 1 tablet (40 mg total) by mouth in the morning. dilTIAZem CD (CARDIZEM CD) 240 mg 24 hr capsule Take 1 capsule (240 mg total) by mouth in the morning. tzgxgdqcvhj-etyyajtgl-pbvsqwpi (TRELEGY ELLIPTA) 100-62.5-25 mcg blister with device Inhale 1 puff in the morning. furosemide (LASIX) 20 mg tablet Take 2 tablets (40 mg total) by mouth daily. ipratropium-albuteroL (DUONEB) 0.5 mg-3 mg(2.5 mg base)/3 mL nebulizer Inhale 3 mL by nebulization 4 (four) times a day. levalbuterol (XOPENEX HFA) 45 mcg/actuation inhaler Inhale 1-2 puffs every 4 (four) hours as needed. levalbuterol (XOPENEX) 1.25 mg/3 mL nebulizer solution INHALE 3 ML BY NEBULIZATION 4 (FOUR) TIMES A DAY NEEDED FOR WHEEZING. 360 mL 5 losartan (COZAAR) 50 mg tablet Take 1 tablet (50 mg total) by mouth in the morning. metoprolol tartrate (LOPRESSOR) 25 mg tablet Take 2 tablets (50 mg total) by mouth in the morning and 2 tablets (50 mg total) before bedtime. nitroglycerin (NITROSTAT) 0.[address] 1 tablet (0.4 mg total) under the tongue every 5 (five) minutes as needed. oxygen Inhale continuously. No current facility-administered medications for this visit. ALLERGIES Allergies Allergen Reactions Lisinopril Cough Mr. Duong's past medical, social and family history were reviewed in the electronic medical record and have noted no changes. OBJECTIVE VITAL SIGNS BP 139/66 (BP Site: Left Arm, BP Postition: Sitting, BP CUFF SIZE: L (13-17 inches)) Pulse 88 Ht 172.7 cm (5' 7.99 ) Wt (!) 170.6 kg (376 lb 3.2 oz) SpO2 95% BMI 57.21 kg/m Last 3 Weight Readings 08/20/23 1047 Weight: (!) 170.6 kg (376 lb 3.2 oz) Body mass index is 57.21 kg/m . No data recorded Supplemental O2: LAST 3 RECORDED WEIGHTS Last 3 Weight Readings 08/20/23 1047 Weight: (!) 170.6 kg (376 lb 3.2 oz) Body mass index is 57.21 kg/m . PHYSICAL EXAM General appearance: Alert and oriented, in no acute distress Head: Normocephalic, without obvious abnormality, atraumatic Eyes: Conjunctivae/corneas clear, no scleral icterus Endocrine: No visible thyromegaly Neck: no adenopathy, no carotid bruit, and thyroid: not enlarged Lungs:Clear to auscultation bilaterally Heart: Brisk carotid upstrokes bilaterally without bruits. Estimated CVP is 12 cmH2O. Mildly positive HJR. Irregularly irregular rhythm with a normal S1 and S2. No S3, S4 or murmurs. Warm and well-perfused. Brisk capillary refill. Abdomen: Bowel sounds are present. The abdomen is soft, not tender or distended. No hepatomegaly. Extremities: venous stasis dermatitis noted and bilateral lower extremity edema and some weeping Skin: Skin color, turgor normal, no rashes Neurologic: Alert and normally oriented. No gross sensory or motor deficitis. LAB DATA: Mr. Ad's most recent labs available in the medical record were reviewed today. CARDIAC TESTING:. See above ECHO: No results found. STRESS: Nuc stress Lexiscan Result Date: 10/03/2022 Interpreted By: MADISON BLANCO MD Patient Name: ELYSE DUONG STUDY: MYOCARDIAL PERFUSION STRESS TEST WITH LEXISCAN Performing facility: [facility], [address] [place] [address], [address] [address] [facility] Provider: Tequila Jaffe MD, [facility] PCP: Dr. Tristen Terrell Supervising provider: Mary Julien MD, [facility] INDICATION: DOT physical I25.10: CAD S/P percutaneous coronary angioplasty Z98.61 HISTORY: Gender: M; Age: 57 y/o ; Height: 0 cm; Weight: 154.364985 kg. CAD; High Cholesterol; HTN; Previous WV; Arrhythmias; AFib Quit smoking 10 years ago. Cardiac catheterization 2012. PTCA on RCA. COMPARISON: No comparison. ACCESSION NUMBER(S): [id number]; [id number] ORDERING CLINICIAN: TEQUILA JAFFE TECHNIQUE: TWO DAY [...] There were evidence of diaphragmatic attenuation artifact. Normal Lexiscan Myoview cardiac perfusion stress test. No evidence of ischemia or myocardial infarction by perfusion imaging. Normal left ventricular systolic function, ejection fraction 52%. No previous study available for comparison. HOLTER: No results found. CARDIAC CATH: No results found. ASSESSMENT HEART FAILURE SYNOPSIS: Type of Heart Failure: diastolic Last EF: 60% QRS Interval: 0.10 NYHA Class: III 6-Minute Walk Test: N/A ACC/AHA Stage: C Cardiac Device: None Prior HF Hospitalizations: 04/2023 [facility] Estimated Dry Weight: TBD Today's Visit Weight: Weight: (!) 170.6 kg (376 lb 3.2 oz) Chronic diastolic heart failure, NYHA class III Coronary artery disease s/p bare metal stenting, patent in 2014 with occluded AV groove LCX Persistent atrial fibrillation, on anticoagulation Chronic hypoxic respiratory failure, secondary to severe COPD on oxygen Bilateral lower extremity venous stasis ulcerations Untreated obstructive sleep apnea Primary hypertension Extreme obesity with a BMI of 57 PLAN Mr. Duong looks hypervolemic continues to have significant heart failure symptoms. His shortness of breath is confounded by his severe underlying lung disease. We spent a considerable amount of time on education on fluid and sodium restriction and how to best treat his heart failure Stop Lasix 40 mg daily, start torsemide 40 mg daily Start Farxiga 10 mg daily Labs in 1 week. He will let us know how much potassium he is taking at home before we make further adjustments We will bring him back for short-term follow-up with blood pressure readings and weights from home to evaluate his blood pressure control and to consider other therapy such as increasing his valsartan and adding Aldactone After some volume removal, reassess heart rate control in atrial fibrillation. Continue metoprolol and diltiazem for now. Needs treatment of his underlying lung disease follow-up with the pulmonology continue to wear the oxygen. Need his sleep apnea treated also. Can refer to Wound Clinic if he continues to have issues with lower extremity stasis. Guideline-Directed Medical Therapy Beta Preet: Lopressor 50 mg b.i.d. in addition to Cardizem 240 mg CD daily ACEi / ARB / ARNi: Losartan 50 mg daily MRA: Not yet, as above SGLT-2i: Farxiga 10 mg daily started Lasix 40 mg switched to torsemide 40 mg daily, takes potassium at home New Orders Orders Placed This Encounter Procedures Basic Metabolic Panel B-type natriuretic peptide Thyroid profile includes TSH FT4 Orders Placed or Reconciled This Encounter Medications aspirin 81 mg chewable tablet Sig: Chew 1 tablet (81 mg total) and swallow in the morning. dapagliflozin propanediol (FARXIGA) 10 mg tablet Sig: Take 1 tablet (10 mg total) by mouth in the morning. Dispense: 30 tablet Refill: 5 torsemide (DEMADEX) 20 mg tablet Sig: Take 2 tablets (40 mg total) by mouth daily. Dispense: 60 tablet Refill: 5 metoprolol tartrate (LOPRESSOR) 50 mg tablet Sig: Take 1 tablet (50 mg total) by mouth in the morning and 1 tablet (50 mg total) before bedtime. Medications Discontinued During This Encounter Medication Reason furosemide (LASIX) 20 mg tablet metoprolol tartrate (LOPRESSOR) 25 mg tablet Reorder We reviewed education for heart failure self-care including daily weights, dietary sodium and fluid restriction, and medication compliance. Mr. Duong was asked to contact our office with any weight gain or loss that exceeds more than 2 lb overnight or more than 4 lb over one week. We will arrange for a follow-up visit in 4 weeks. Mr. Duong is aware that we can be contacted prior to the next scheduled appointment should the need arise. I spent 45 minutes face to face with the patient today and more than 50% of my time was dedicated to counseling (heart failure education for self-care including medication compliance, daily weights, sodium and fluid diet restriction, frequent exercise, cardiovascular risk factor modification) and coordination of care. 08/20/2023 Samara Noel MD, [facility], [facility] Advanced Heart Failure & Transplant Cardiology [address] [facility] [address] [place] [address] Fax This note was completed using a voice coremaker floor system. Every effort was made to ensure accuracy. However, inadvertent computerized coremaker floor errors may be present. Pt called into clinic. Pt is taking potassium 10meq twice a day. documented in this encounter [facility] 08-20-2023 Instructions Samara Noel MD - 08/20/2023 10:30 AM EST My recommendations for you in clinic today are as follows: STOP Lasix START Torsemide (2 tabs together once a day) START Farxiga Labs in 1 week Write down your blood pressure and weight readings daily When you get home, call us back and tell us exactly how much potassium you are taking Additionally: Check your weight every day and write it down in your weight log. Bring your weight log to your next appointment. Make sure your intake of sodium is less than 2000 milligrams (mg) per day. Make sure your intake of fluid is less than 2000 milliliters (ml) per day or approximately 64 fl. oz Take all your medications every day as indicated on the prescription label. Call our office if your weight increases by more than 2 pounds overnight or more than 4 pounds in a week. Call our office if you notice worsening shortness of breath, bloating or swelling. Also call if you feel weak, dizzy or unusually fatigued. Please do not hesitate to contact our office by calling the Heart Failure Clinic at [phone]. Please call [phone] for emergencies. General Heart Failure Tips: - Maintain a sodium restricted diet. Your total intake should be <2000 mg a day. A rule of thumb is to keep each meal around 500 mg. On average, Malagasy eat between 3,400 and 3,700 mg/day of sodium!!! Table Salt is a combination of sodium and chloride A teaspoon of salt = 2,300 mg of sodium Sea salt (rock salt) and kosher salt are NOT low in sodium. The amount of sodium is about the same for all table and sea salts. Salt Substitutes (No-Salt, Zurita's Salt Substitute, Nu-salt) replace sodium with potassium. For some patients, this potassium in salt substitutes may be dangerous. Alert your MD if you are using a salt substitute. - If you are on a diuretic (e.g. lasix/furosemide, torsemide/demadex, bumex/bumetinide), you should avoid excessive fluid intake. Your diuretic's job is to keep all the fluid you drink in a day off of you. If you drink too much, you will gain water weight because your diuretic can't keep up. The rule of thumb is to keep intake to 8 ounces per meal and a snack. Be mindful of ice and watery fruit (grapes, watermelon, tomatoes). - Record your weight daily after your first morning void in the nude. Call if your weight increases >3-4 pounds on more than 1 reading in a week. It is not uncommon for a weight to go up one day and down another. The trend in weight is what we most focus on. - If you are sick and can't eat or drink, call my office. I will likely hold your diuretic until you feel better. - Keep your vaccinations up to date. Heart Failure patients are at greater risk for Strep. Pneumoniae pneumonia, influenza, etc. You may be more susceptible to shingles to and the CDC now recommends a shingles vaccination. A YEARLY INFLUENZA VACCINATION is advised. documented in this encounter [facility] 07-26-2023 History of Present illness Narrative Elyse Duong Date of visit: 07/26/2023 Date of : 1965 Age: 58 y.o. Patient Active Problem List Diagnosis Pulmonary nodule History of tobacco use CATERINA treated with BiPAP Morbid obesity ([facility]) Restrictive pattern present on pulmonary function testing Fatty liver Primary hypertension CAD (coronary artery disease) History of coronary angioplasty with insertion of stent Chronic obstructive pulmonary disease ([facility]) Allergies Allergen Reactions Lisinopril Cough Current Outpatient Medications Medication Sig Dispense Refill apixaban (ELIQUIS) 5 mg tablet Take 1 tablet (5 mg total) by mouth in the morning and 1 tablet (5 mg total) before bedtime. atorvastatin (LIPITOR) 40 mg tablet Take 1 tablet (40 mg total) by mouth in the morning. dilTIAZem CD (CARDIZEM CD) 240 mg 24 hr capsule Take 1 capsule (240 mg total) by mouth in the morning. sygajzidrew-kofryjpfb-gzxsbtzs (TRELEGY ELLIPTA) 100-62.5-25 mcg blister with device Inhale 1 puff in the morning. furosemide (LASIX) 20 mg tablet Take 2 tablets (40 mg total) by mouth daily. ipratropium-albuteroL (DUONEB) 0.5 mg-3 mg(2.5 mg base)/3 mL nebulizer Inhale 3 mL by nebulization 4 (four) times a day. levalbuterol (XOPENEX HFA) 45 mcg/actuation inhaler Inhale 1-2 puffs every 4 (four) hours as needed. levalbuterol (XOPENEX) 1.25 mg/3 mL nebulizer solution INHALE 3 ML BY NEBULIZATION 4 (FOUR) TIMES A DAY NEEDED FOR WHEEZING. 360 mL 5 losartan (COZAAR) 50 mg tablet Take 1 tablet (50 mg total) by mouth in the morning. metoprolol tartrate (LOPRESSOR) 25 mg tablet Take 2 tablets (50 mg total) by mouth in the morning and 2 tablets (50 mg total) before bedtime. nitroglycerin (NITROSTAT) 0.[address] 1 tablet (0.4 mg total) under the tongue every 5 (five) minutes as needed. oxygen Inhale continuously. potassium chloride (KLOR-CON M 10) 10 MEQ CR tablet Take 2 tablets (20 mEq total) by mouth in the morning. No current facility-administered medications for this visit. 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 HEART SCHED History of Present Illness Patient with history of [place], coronary disease with stent to the RCA, hyperlipidemia, severe COPD on home O2, morbid obesity, CATERINA. New to our practice. Referred for evaluation of new onset atrial fibrillation. Previously follow with [facility]. Patient stated that he wanted to establish care with our group as he was not satisfied with the care from his previous Cardiology office. Stated that he has chronic dyspnea with exertion for many years that is stable. Can walk about 20 yd and then has to rest because of difficulty breathing. Reports having chronic leg edema that is fluctuating worsening improving. Currently a little bit worsening, taking Lasix 20 mg daily. Not watching salt and fluid intake. No chest pain or palpitations or dizziness. No orthopnea, PND. Sleeps on 2 pillows. Flat bed. No recreational drug use. Denies any dizzy spells or syncope or presyncope. Tobacco: Former smoker, quit 2012, smoked for about 30 yrs, average 2-3 PPD. Alcohol: None Recreational drugs: None EKG in the office today showing atrial fibrillation with RVR, HR 122 bpm, non specific ST changes. Past Medical History: Diagnosis Date Atrial fibrillation Bilateral lower extremity edema CAD (coronary artery disease) Hypertension Hypoxia Knee pain Lung nodule Mixed hyperlipidemia Morbid obesity ([facility]) Myocardial infarction ([facility]) Obesity Pre-diabetes Pulmonary emphysema ([facility]) Sleep apnea knee pain Superficial phlebitis Venous insufficiency No data recorded No data recorded No data recorded Past Surgical History: Procedure Laterality Date CHOLECYSTECTOMY CORONARY STENT PLACEMENT 2012 KNEE SURGERY Family History Problem Relation Age of Onset Hypertension Mother Diabetes Mother Social History Socioeconomic History Marital status: Spouse name: Not on file Number of children: Not on file Years of education: Not on file Highest education level: Not on file Occupational History Not on file Tobacco Use Smoking status: Former Types: Cigarettes Quit date: 2012 Years since quittin.1 Smokeless tobacco: Never Vaping Use Vaping Use: Never used Substance and Sexual Activity Alcohol use: Never Drug use: Never Sexual activity: Defer Other Topics Concern Caffeine Use Yes Social History Narrative Not on file Social Determinants of Health Financial Resource Strain: Not on file Food Insecurity: No Food Insecurity (07/26/2023) Hunger Screening Food Insecurity - Worry: Never True Food Insecurity - Inability: Never True Transportation Needs: Not on file Physical Activity: Not on file Stress: Not on file Social Connections: Not on file Interpersonal Safety: Not on file Housing Instability: Not on file Review of Systems Review of Systems Respiratory: Negative for cough, hemoptysis and wheezing. Gastrointestinal: Negative for abdominal pain, change in bowel habit and hematochezia. Genitourinary: Negative for dysuria and hematuria. Neurological: Negative for focal weakness, headaches and paresthesias. CARDIOVASCULAR: Please review HPI. Physical Examination General appearance: Alert, oriented and cooperative. In no acute distress. Skin: Warm and dry to touch. Head: Normocephalic, without obvious abnormality, atraumatic. Ears, Nose, Mouth, Throat: Throat clear without erythema or exudate. Dentition intact. Eyes: Conjunctivae unremarkable, EOM intact. Neck: No JVD, No carotid bruit. Neck supple, trachea midline. Respiratory: Clear to auscultation bilaterally, no use of accessory muscles. Cardiovascular: Irregularly irregular rhythm, tachycardia, with distant S1 and S2 with no obvious murmurs. Gastrointestinal: Soft, non-tender. Bowel sounds normal. Musculoskeletal: 1+ bilateral extremity peripheral edema, with chronic venous stasis changes. Neurologic: Oriented to time, person and place, affect appropriate. No focal/major motor defects noted. Psychiatric: Appropriate mood, memory and judgement. VITAL SIGNS: BP 104/70 (BP Site: Left Arm, BP Postition: Sitting) Pulse 115 Ht 172.7 cm (5' 8 ) Wt (!) 166.9 kg (368 lb) SpO2 94% BMI 55.95 kg/m Orders Placed or Reconciled This Encounter Medications ipratropium-albuteroL (DUONEB) 0.5 mg-3 mg(2.5 mg base)/3 mL nebulizer Sig: Inhale 3 mL by nebulization 4 (four) times a day. DISCONTD: metoprolol tartrate (LOPRESSOR) 100 mg tablet Sig: Take 1 tablet (100 mg total) by mouth in the morning and 1 tablet (100 mg total) before bedtime. dilTIAZem CD (CARDIZEM CD) 240 mg 24 hr capsule Sig: Take 1 capsule (240 mg total) by mouth in the morning. furosemide (LASIX) 20 mg tablet Sig: Take 2 tablets (40 mg total) by mouth daily. potassium chloride (KLOR-CON M 10) 10 MEQ CR tablet Sig: Take 2 tablets (20 mEq total) by mouth in the morning. nitroglycerin (NITROSTAT) 0.4 MG SL tablet Sig: Place 1 tablet (0.4 mg total) under the tongue every 5 (five) minutes as needed. oxygen Sig: Inhale continuously. Medications Discontinued During This Encounter Medication Reason aspirin 81 mg dilTIAZem CD (CARDIZEM CD) 180 mg 24 hr capsule Dose adjustment metoprolol tartrate (LOPRESSOR) 100 mg tablet Dose adjustment IMPRESSIONS/PLAN 1. Atrial fibrillation, unspecified type ([facility]) - POCT EKG - Basic Metabolic Panel; Future - Magnesium; Future - Ambulatory referral to Cardiac Electrophysiology; Future 2. History of coronary angioplasty with insertion of stent - POCT EKG 3. History of tobacco use - POCT EKG 4. Primary hypertension - POCT EKG 5. Paroxysmal atrial fibrillation ([facility]) - Ambulatory referral to Cardiology (Non[facility]) - POCT EKG 6. Bilateral lower extremity edema - Ambulatory referral to Cardiology (Non[facility]) - POCT EKG 7. Heart failure with preserved ejection fraction, unspecified HF chronicity ([facility]) - [facility] - [place], [place]; Future Previous cardiac related labs and test results were reviewed and discussed with the patient. Recently diagnosed atrial fibrillation (heart chads Vasc score) on Eliquis Hx of [place] CAD with hx BMS to RCA 2012 - [facility] 2014: patent stent with 40% ISR, no significant stenosis elsewehre, abrupt Lcx end suggesting possible obstruction (small vessel) Negative low risk Tiffanie nuclear stress test 09/2022 Chronic HFpEF - Normal EF TTE 04/2023 Hyperlipidemia Hx of tobacco use - quit 2012 CATERINA/ not compliant with CPAP Morbid obesity, BMI 55 Patient is here to establish care. Previously follows with [facility] heart group. Patient in atrial fibrillation with RVR heart rate in the 120s today in the office. Has chronic severe COPD for which he is on 4 L oxygen at home all the time for long time. Lungs clear on auscultation today, no JVD. Mild leg edema. Increase Lasix dose to 40 mg daily. Recommended limiting fluid intake to no more than 64 oz and sodium intake to no more than 2 g per day. I increase dose of Lopressor to 50 mg b.i.d. for better rate control. Recommend patient monitor his heart rate at home with goal less than 100 and if it is persistently elevated to increase dose of Lopressor to 75 mg b.i.d.. Provided with referral to EP Clinic to discuss rhythm control/AFib ablation. Recommended patient use CPAP for sleep apnea regularly. Going to check basic metabolic panel magnesium levels in a week. Will have him come back for follow-up at doing Cardiology office in 6 months or sooner if needed. Patient to call us with any cardiac questions or concerns. TODAYS ORDERS Orders Placed This Encounter Procedures Basic Metabolic Panel Magnesium Ambulatory referral to Cardiac Electrophysiology [facility] - [place], [place] POCT EKG FOLLOW UP Return in about 6 months (around 01/24/2024). PCP: No primary care provider on file. Referring Physician: Eusebia Terrell, HEALTH OCCUPATIONS TEACHER-REPORTER ANCHOR [address] [place] [place] [address] documented in this encounter [facility] 07-25-2023 Miscellaneous Notes Called patient to remind them to bring their most current copy of their medication list with them to their appt. Patient verbalizes understanding. documented in this encounter [facility] 07-25-2023 Telephone encounter Note Called patient to remind them to bring their most current copy of their medication list with them to their appt. Patient verbalizes understanding. [facility] 07-19-2023 History of Present illness Narrative Associated Problem(s): Arrhythmia Has appt with new test man next week Cont b preet, anti coagulation, Needs to wear PAP Associated Problem(s): Bilateral lower extremity edema stable Associated Problem(s): Chronic atrial fibrillation (HCC) (CMS/HCC) (Resolved 07/19/2023) Remains in a fib, ,cont b preet, anti coagulation Recommend PAP use Fu with new test man next week Associated Problem(s): Primary hypertension (CMS/HCC) Stable on current meds Associated Problem(s): Hypoxia O2 Associated Problem(s): COPD (chronic obstructive pulmonary disease) with emphysema (CMS/HCC) Continue with stripe marker, as well as inhalers, etc Associated Problem(s): CATERINA (obstructive sleep apnea) Non complaint with PAP use Explained to pt why important to wear for heart failure, afib, and copd, will also help his LE edema Needs to call his stripe marker Very SOB wheezing Both legs seeping- legs [...] [facility]. No chest pain or dizziness Is not wearing his CPAP , states it dries him out too much, has not been to his stripe marker recently either SUBJECTIVE: MEDICATIONS: Current Outpatient Medications [...] After use, clean tip and replace cap. Dgqeccgners-Kcoycnyyg-Zthaox (Trelegy Ellipta) 100-62.5-25 MCG/ACT aerosol powder 1 [...] leg cellulitis 06/06/2023 CAD (coronary artery disease) ([facility]) COPD (chronic obstructive pulmonary disease) with emphysema ([facility]) 06/28/2023 Coronary artery disease involving havasupai coronary artery of havasupai heart without angina pectoris ([facility]) 05/25/2023 DENIES H/O BLOOD BORNE DISEASE Hyperlipidemia ([facility]) Hypoxia 06/28/2023 Myocardial infarction ([facility]) Obesity CATERINA (obstructive sleep apnea) 05/25/2023 Primary hypertension ([facility]) 05/25/2023 Superficial phlebitis and thrombophlebitis of left lower extremity Venous insufficiency of both lower extremities Past Surgical History: Procedure Laterality Date ANGIOPLASTY 2013 CHOLECYSTECTOMY 2016 KNEE SURGERY Left 04/15/2021 SCOPE - [address] GREER ([facility]) family history includes Diabetes in his [...] This Visit Arrhythmia Has appt with new test man next week Cont b preet, anti coagulation, [...] his LE edema Needs to call his stripe marker Hyperlipidemia ([facility]) Relevant Orders Comprehensive metabolic panel Lipid panel Morbid obesity with BMI of 50.0-59.9, adult (CMS/HCC) Bilateral lower extremity edema stable COPD (chronic obstructive pulmonary disease) with emphysema ([facility]) Continue with stripe marker, as well as inhalers, etc Hypoxia O2 Venous insufficiency of both lower extremities Screening for prostate cancer - Primary Relevant Orders PSA Pre-diabetes Relevant Orders Comprehensive metabolic panel Microalbumin / creatinine, urine ratio Urinalysis with reflex microscopic (clean catch) Hemoglobin A1c documented in this encounter [facility] 04-13-2023 History of Present illness Narrative Images from the original note were not included. CARDIOLOGY OFFICE VISIT CHIEF COMPLAINT HISTORY OF PRESENT ILLNESS The patient is being seen after recent hospitalization at [facility]. He states that he had [...] coronary angioplasty Paroxysmal atrial fibrillation (CMS/HCC) Old [place] (myocardial infarction) Mixed hyperlipidemia Primary hypertension Obstructive sleep apnea syndrome Morbid obesity with BMI of 50.0-59.9, adult (CMS/HCC) Former smoker Status post ablation of incompetent vein using laser @ASSESSMENTANDPLANTEXT@ documented in this encounter [facility] Work Phone: 04-13-2023 Instructions Enrike Orozco RN [...] Justyn Ramirez MD documented in this encounter [facility] Work Phone: 08-25-2022 Note PROCEDURE: XR ANKLE [...] by: KESHAWN PECK Date: 2022-08-25 07:01 [facility] Chief complaint Narrative - Reported ELYSE DUONG is being seen for a cardiovascular evaluation . POC for knee surgery. -[facility] 600 DO Work Phone: Evaluation note Diagnosis CAD S/P percutaneous coronary angioplasty Paroxysmal atrial fibrillation (CMS/HCC) Atrial fibrillation Old [place] (myocardial infarction) Old myocardial infarction Mixed hyperlipidemia Primary hypertension Unspecified essential hypertension Obstructive sleep apnea syndrome Obstructive sleep apnea (adult) (pediatric) Morbid obesity with BMI of 50.0-59.9, adult (CMS/HCC) Former smoker Personal history of tobacco use, presenting hazards to health Status post ablation of incompetent vein using laser documented in this encounter [facility] Work Phone: Evaluation note* Diagnosis Screening for [...] unspecified type (CMS/HCC) documented in this encounter [facility]* Diagnosis Pulmonary emphysema, unspecified emphysema type (CMS/HCC)- Primary documented in this encounter [facility] HealthcareEvaluation note* Diagnosis 2-vessel coronary artery disease- Primary Paroxysmal atrial fibrillation (Multi) Atrial fibrillation Essential hypertension Unspecified essential hypertension Mixed hyperlipidemia Old [place] (myocardial infarction) Old myocardial infarction Morbid obesity with BMI of 50.0-59.9, adult (Multi) Former smoker Personal history of tobacco use, presenting hazards to health documented in this encounter [facility] Work Phone: Evaluation note* Diagnosis Hyperlipidemia, unspecified (CMS/HCC) documented in this encounter [facility] HealthcareEvaluation note* Diagnosis Bilateral lower extremity edema- Primary Primary hypertension (CMS/HCC) Unspecified essential hypertension Paroxysmal atrial fibrillation (CMS/HCC) Atrial fibrillation Morbid obesity with BMI of 50.0-59.9, adult (CMS/HCC) Bilateral lower leg cellulitis Chronic obstructive pulmonary disease, unspecified COPD type (CMS/HCC) Bilateral lower extremity edema- Primary Acute cough Paroxysmal atrial fibrillation (CMS/HCC) Atrial fibrillation Other emphysema (CMS/HCC) Other emphysema Morbid obesity with BMI of 50.0-59.9, adult (CMS/HCC) Bilateral lower leg cellulitis Primary hypertension (CMS/HCC)- Primary Unspecified essential hypertension Morbid obesity with BMI of 50.0-59.9, adult (CMS/HCC) History of tobacco use Personal history of tobacco use, presenting hazards to health Pulmonary emphysema, unspecified emphysema type (CMS/HCC) Paroxysmal atrial fibrillation (CMS/HCC) Atrial fibrillation Bilateral lower extremity edema Hypoxia Hypoxemia Pneumonia of both lungs due to infectious organism, unspecified part of lung Acute cough Screening for prostate cancer- Primary Special screening for malignant neoplasm of prostate Mixed hyperlipidemia (CMS/HCC) Mixed hyperlipidemia Primary hypertension (CMS/HCC) Unspecified essential hypertension Pre-diabetes Other abnormal glucose Morbid obesity with BMI of 50.0-59.9, adult ([facility]) Hypoxia Hypoxemia Pulmonary emphysema, unspecified emphysema type ([facility]) Bilateral lower extremity edema CATERINA (obstructive sleep apnea) Obstructive sleep apnea (adult) (pediatric) Venous insufficiency of both lower extremities Atrial fibrillation, unspecified type ([facility]) Pulmonary emphysema, unspecified emphysema type ([facility]/HCC)- Primary Venous insufficiency of both lower extremities Primary hypertension ([facility]) Unspecified essential hypertension Bilateral lower extremity edema Morbid obesity with BMI of 50.0-59.9, adult ([facility]) Pre-diabetes Other abnormal glucose Rising PSA level Paroxysmal atrial fibrillation (I48.0) Atrial fibrillation Pulmonary emphysema, unspecified emphysema type ([facility])- Primary Atrial fibrillation, unspecified type ([facility]) Paroxysmal atrial fibrillation ([facility]) Atrial fibrillation CATERINA (obstructive sleep apnea) Obstructive sleep apnea (adult) (pediatric) Primary hypertension ([facility]) Unspecified essential hypertension Morbid obesity with BMI of 50.0-59.9, adult ([facility]) Chronic obstructive pulmonary disease, unspecified COPD type ([facility]) Pre-diabetes- Primary Other abnormal glucose Other thrombophilia ([facility]) CATERINA (obstructive sleep apnea) Obstructive sleep apnea (adult) (pediatric) Pulmonary emphysema, unspecified emphysema type ([facility]) Venous insufficiency of both lower extremities Primary hypertension ([facility]) Unspecified essential hypertension Paroxysmal atrial fibrillation ([facility]) Atrial fibrillation Coronary artery disease involving havasupai coronary artery of havasupai heart without angina pectoris ([facility]) Bilateral lower extremity edema Morbid obesity with BMI of 50.0-59.9, adult ([facility]) Rising PSA level Pre-diabetes- Primary Other abnormal glucose Other emphysema ([facility]) Other emphysema Atrial fibrillation, unspecified type ([facility]) Hyperlipidemia, unspecified ([facility]) Chronic obstructive pulmonary disease, unspecified COPD type ([facility]) Chest pain due to CAD ([facility]) Primary hypertension ([facility] Unspecified essential hypertension Paroxysmal atrial fibrillation ([facility]) Atrial fibrillation Chronic diastolic heart failure ([facility]) Chronic diastolic heart failure Other headache syndrome Morbid obesity ([facility]) Morbid obesity Morbid obesity with BMI of 50.0-59.9, adult ([facility]) Environmental and seasonal allergies- Primary Severe persistent asthma, uncomplicated ([facility]) Morbid obesity with BMI of 50.0-59.9, adult ([facility]) Pulmonary emphysema, unspecified emphysema type ([facility]/HCC) documented in this encounter [facility] HealthcareEvaluation note* Diagnosis Pre-diabetes- Primary Other abnormal glucose Other emphysema (CMS/HCC) Other emphysema Atrial fibrillation, unspecified type ([facility]) Hyperlipidemia, unspecified ([facility]) Chronic obstructive pulmonary disease, unspecified COPD type ([facility]) Chest pain due to CAD ([facility]) Primary hypertension ([facility] Unspecified essential hypertension Paroxysmal atrial fibrillation ([facility]) Atrial fibrillation Chronic diastolic heart failure ([facility]) Chronic diastolic heart failure Other headache syndrome Morbid obesity ([facility]) Morbid obesity Morbid obesity with BMI of 50.0-59.9, adult ([facility]) documented in this encounter [facility] HealthcareEvaluation note* Diagnosis Bilateral lower extremity edema- Primary Primary hypertension ([facility]) Unspecified essential hypertension Paroxysmal atrial fibrillation ([facility]) Atrial fibrillation Morbid obesity with BMI of 50.0-59.9, adult ([facility]) Bilateral lower leg cellulitis Chronic obstructive pulmonary disease, unspecified COPD type ([facility]) Bilateral lower extremity edema- Primary Acute cough Paroxysmal atrial fibrillation ([facility]) Atrial fibrillation Other emphysema ([facility]) Other emphysema Morbid obesity with BMI of 50.0-59.9, adult ([facility]) Bilateral lower leg cellulitis Primary hypertension ([facility])- Primary Unspecified essential hypertension Morbid obesity with BMI of 50.0-59.9, adult ([facility]) History of tobacco use Personal history of tobacco use, presenting hazards to health Pulmonary emphysema, unspecified emphysema type ([facility]/HCC) Paroxysmal atrial fibrillation ([facility]) Atrial fibrillation Bilateral lower extremity edema Hypoxia Hypoxemia Pneumonia of both lungs due to infectious organism, unspecified part of lung Acute cough Screening for prostate cancer- Primary Special screening for malignant neoplasm of prostate Mixed hyperlipidemia ([facility]) Mixed hyperlipidemia Primary hypertension ([facility]) Unspecified essential hypertension Pre-diabetes Other abnormal glucose Morbid obesity with BMI of 50.0-59.9, adult ([facility]) Hypoxia Hypoxemia Pulmonary emphysema, unspecified emphysema type ([facility]/HCC) Bilateral lower extremity edema [place] (obstructive sleep apnea) Obstructive sleep apnea (adult) (pediatric) Venous insufficiency of both lower extremities Atrial fibrillation, unspecified type (CMS/HCC) Pulmonary emphysema, unspecified emphysema type (CMS/HCC)- Primary Venous insufficiency of both lower extremities Primary hypertension (CMS/HCC) Unspecified essential hypertension Bilateral lower extremity edema Morbid obesity with BMI of 50.0-59.9, adult (CMS/[facility]) Pre-diabetes Other abnormal glucose Rising PSA level Paroxysmal atrial fibrillation (I48.0) Atrial fibrillation Pulmonary emphysema, unspecified emphysema type (CMS/HCC)- Primary Atrial fibrillation, unspecified type (CMS/HCC) Paroxysmal atrial fibrillation (CMS/HCC) Atrial fibrillation [place] (obstructive sleep apnea) Obstructive sleep apnea (adult) (pediatric) Primary hypertension (CMS/HCC) Unspecified essential hypertension Morbid obesity with BMI of 50.0-59.9, adult ([facility]/HCC) Chronic obstructive pulmonary disease, unspecified COPD type (CMS/HCC) Pre-diabetes- Primary Other abnormal glucose Other thrombophilia (CMS/HCC) CATERINA (obstructive sleep apnea) Obstructive sleep apnea (adult) (pediatric) Pulmonary emphysema, unspecified emphysema type ([facility]/HCC) Venous insufficiency of both lower extremities Primary hypertension (CMS/[facility]) Unspecified essential hypertension Paroxysmal atrial fibrillation ([facility]) Atrial fibrillation Coronary artery disease involving havas[place]ai coronary artery of havasupai heart without angina pectoris (CMS/[facility]) Bilateral lower extremity edema Morbid obesity with BMI of 50.0-59.9, adult ([facility]) Rising PSA level Pre-diabetes- Primary Other abnormal glucose Other emphysema (CMS/HCC) Other emphysema Atrial fibrillation, unspecified type (CMS/HCC) Hyperlipidemia, unspecified (CMS/[facility]) Chronic obstructive pulmonary disease, unspecified COPD type (CMS/[facility]) Chest pain due to CAD (CMS/[facility]) Primary hypertension ([facility]) Unspecified essential hypertension Paroxysmal atrial fibrillation ([facility]) Atrial fibrillation Chronic diastolic heart failure (CMS/[facility]) Chronic diastolic heart failure Other headache syndrome Morbid obesity (CMS/[facility]) Morbid obesity Morbid obesity with BMI of 50.0-59.9, adult ([facility]) Environmental and seasonal allergies- Primary Severe persistent asthma, uncomplicated (CMS/[facility]) Morbid obesity with BMI of 50.0-59.9, adult ([facility]) Pulmonary emphysema, unspecified emphysema type (CMS/HCC) Primary hypertension (CMS/HCC) Unspecified essential hypertension Paroxysmal atrial fibrillation (CMS/[facility]) Atrial fibrillation documented in this encounter [facility] HealthcareEvaluation note* Diagnosis Bilateral lower extremity edema- Primary Primary hypertension (CMS/HCC) Unspecified essential hypertension Paroxysmal atrial fibrillation ([facility]/HCC) Atrial fibrillation Morbid obesity with BMI of 50.0-59.9, adult ([facility]) Bilateral lower leg cellulitis Chronic obstructive pulmonary disease, unspecified COPD type ([facility]) Bilateral lower extremity edema- Primary Acute cough Paroxysmal atrial fibrillation ([facility]) Atrial fibrillation Other emphysema ([facility]) Other emphysema Morbid obesity with BMI of 50.0-59.9, adult ([facility]) Bilateral lower leg cellulitis Primary hypertension ([facility])- Primary Unspecified essential hypertension Morbid obesity with BMI of 50.0-59.9, adult ([facility]) History of tobacco use Personal history of tobacco use, presenting hazards to health Pulmonary emphysema, unspecified emphysema type ([facility]) Paroxysmal atrial fibrillation ([facility]) Atrial fibrillation Bilateral lower extremity edema Hypoxia Hypoxemia Pneumonia of both lungs due to infectious organism, unspecified part of lung Acute cough Screening for prostate cancer- Primary Special screening for malignant neoplasm of prostate Mixed hyperlipidemia ([facility]) Mixed hyperlipidemia Primary hypertension ([facility]) Unspecified essential hypertension Pre-diabetes Other abnormal glucose Morbid obesity with BMI of 50.0-59.9, adult ([facility]) Hypoxia Hypoxemia Pulmonary emphysema, unspecified emphysema type ([facility]) Bilateral lower extremity edema CAT[place] (obstructive sleep apnea) Obstructive sleep apnea (adult) (pediatric) Venous insufficiency of both lower extremities Atrial fibrillation, unspecified type ([facility]/HCC) Pulmonary emphysema, unspecified emphysema type ([facility]/HCC)- Primary Venous insufficiency of both lower extremities Primary hypertension ([facility]) Unspecified essential hypertension Bilateral lower extremity edema Morbid obesity with BMI of 50.0-59.9, adult ([facility]) Pre-diabetes Other abnormal glucose Rising PSA level Paroxysmal atrial fibrillation (I48.0) Atrial fibrillation Pulmonary emphysema, unspecified emphysema type ([facility]/HCC)- Primary Atrial fibrillation, unspecified type ([facility]) Paroxysmal atrial fibrillation ([facility]/HCC) Atrial fibrillation CAT[place] (obstructive sleep apnea) Obstructive sleep apnea (adult) (pediatric) Primary hypertension ([facility]) Unspecified essential hypertension Morbid obesity with BMI of 50.0-59.9, adult ([facility]) Chronic obstructive pulmonary disease, unspecified COPD type ([facility]) Pre-diabetes- Primary Other abnormal glucose Other thrombophilia ([facility]) CATERINA (obstructive sleep apnea) Obstructive sleep apnea (adult) (pediatric) Pulmonary emphysema, unspecified emphysema type ([facility]) Venous insufficiency of both lower extremities Primary hypertension ([facility]) Unspecified essential hypertension Paroxysmal atrial fibrillation ([facility]) Atrial fibrillation Coronary artery disease involving [place] coronary artery of [place]vas[place]ai heart without angina pectoris ([facility]) Bilateral lower extremity edema Morbid obesity with BMI of 50.0-59.9, adult ([facility]) Rising PSA level Pre-diabetes- Primary Other abnormal glucose Other emphysema ([facility]) Other emphysema Atrial fibrillation, unspecified type ([facility]) Hyperlipidemia, unspecified ([facility]) Chronic obstructive pulmonary disease, unspecified COPD type ([facility]) Chest pain due to CAD ([facility]) Primary hypertension ([facility] Unspecified essential hypertension Paroxysmal atrial fibrillation ([facility]) Atrial fibrillation Chronic diastolic heart failure ([facility]) Chronic diastolic heart failure Other headache syndrome Morbid obesity ([facility]) Morbid obesity Morbid obesity with BMI of 50.0-59.9, adult ([facility]) Environmental and seasonal allergies- Primary Severe persistent asthma, uncomplicated ([facility]) Morbid obesity with BMI of 50.0-59.9, adult ([facility]) Pulmonary emphysema, unspecified emphysema type ([facility]) Encounter for subsequent annual wellness visit (AWV) in Medicare patient- Primary Chronic obstructive pulmonary disease, unspecified ([facility]) Chronic diastolic (congestive) heart failure ([facility]) Emphysema, unspecified ([facility]) Paroxysmal atrial fibrillation ([facility]) Atrial fibrillation Morbid (severe) obesity due to excess calories ([facility]) Body mass index (BMI) 50.0-59.9, adult ([facility]) CATERINA (obstructive sleep apnea) Obstructive sleep apnea (adult) (pediatric) Coronary artery disease involving [place] coronary artery of havas[place]ai heart without angina pectoris ([facility]) Primary hypertension ([facility]) Unspecified essential hypertension Bilateral lower extremity edema Class 3 severe obesity due to excess calories with serious comorbidity and body mass index (BMI) of 50.0 to 59.9 in adult ([facility]) Pre-diabetes Other abnormal glucose Mixed hyperlipidemia ([facility]) Mixed hyperlipidemia Upper respiratory tract infection, unspecified type documented in this encounter [facility] HealthcareEvaluation note* Diagnosis Chronic diastolic heart failure ([facility]) Chronic diastolic heart failure Coronary artery disease involving [place] coronary artery of [place] heart without angina pectoris Persistent atrial fibrillation ([facility]-HCC) Atrial fibrillation [facility]* Diagnosis Bilateral lower extremity edema- Primary Primary hypertension (CMS/HCC) Unspecified essential hypertension Paroxysmal atrial fibrillation (CMS/HCC) Atrial fibrillation Morbid obesity with BMI of 50.0-59.9, adult ([facility]) Bilateral lower leg cellulitis Chronic obstructive pulmonary disease, unspecified COPD type ([facility]/HCC) Bilateral lower extremity edema- Primary Acute cough Paroxysmal atrial fibrillation (CMS/HCC) Atrial fibrillation Other emphysema (CMS/HCC) Other emphysema Morbid obesity with BMI of 50.0-59.9, adult ([facility]) Bilateral lower leg cellulitis Primary hypertension ([facility]/HCC)- Primary Unspecified essential hypertension Morbid obesity with BMI of 50.0-59.9, adult ([facility]) History of tobacco use Personal history of tobacco use, presenting hazards to health Pulmonary emphysema, unspecified emphysema type ([facility]/HCC) Paroxysmal atrial fibrillation ([facility]) Atrial fibrillation Bilateral lower extremity edema Hypoxia Hypoxemia Pneumonia of both lungs due to infectious organism, unspecified part of lung Acute cough Screening for prostate cancer- Primary Special screening for malignant neoplasm of prostate Mixed hyperlipidemia ([facility]) Mixed hyperlipidemia Primary hypertension ([facility]) Unspecified essential hypertension Pre-diabetes Other abnormal glucose Morbid obesity with BMI of 50.0-59.9, adult ([facility]) Hypoxia Hypoxemia Pulmonary emphysema, unspecified emphysema type ([facility]/HCC) Bilateral lower extremity edema [place] (obstructive sleep apnea) Obstructive sleep apnea (adult) (pediatric) Venous insufficiency of both lower extremities Atrial fibrillation, unspecified type ([facility]) Pulmonary emphysema, unspecified emphysema type ([facility]/HCC)- Primary Venous insufficiency of both lower extremities Primary hypertension ([facility]) Unspecified essential hypertension Bilateral lower extremity edema Morbid obesity with BMI of 50.0-59.9, adult ([facility]) Pre-diabetes Other abnormal glucose Rising PSA level Paroxysmal atrial fibrillation (I48.0) Atrial fibrillation Pulmonary emphysema, unspecified emphysema type (CMS/HCC)- Primary Atrial fibrillation, unspecified type (CMS/HCC) Paroxysmal atrial fibrillation (CMS/HCC) Atrial fibrillation CAT[place] (obstructive sleep apnea) Obstructive sleep apnea (adult) (pediatric) Primary hypertension ([facility]/HCC) Unspecified essential hypertension Morbid obesity with BMI of 50.0-59.9, adult ([facility]) Chronic obstructive pulmonary disease, unspecified COPD type (CMS/[facility]) Pre-diabetes- Primary Other abnormal glucose Other thrombophilia ([facility]) CATERINA (obstructive sleep apnea) Obstructive sleep apnea (adult) (pediatric) Pulmonary emphysema, unspecified emphysema type ([facility]) Venous insufficiency of both lower extremities Primary hypertension ([facility]) Unspecified essential hypertension Paroxysmal atrial fibrillation ([facility]) Atrial fibrillation Coronary artery disease involving [place] coronary artery of [place] heart without angina pectoris ([facility]) Bilateral lower extremity edema Morbid obesity with BMI of 50.0-59.9, adult ([facility]) Rising PSA level Pre-diabetes- Primary Other abnormal glucose Other emphysema ([facility]) Other emphysema Atrial fibrillation, unspecified type ([facility]) Hyperlipidemia, unspecified ([facility]) Chronic obstructive pulmonary disease, unspecified COPD type ([facility]) Chest pain due to CAD ([facility]) Primary hypertension ([facility] Unspecified essential hypertension Paroxysmal atrial fibrillation ([facility]) Atrial fibrillation Chronic diastolic heart failure ([facility]) Chronic diastolic heart failure Other headache syndrome Morbid obesity ([facility]) Morbid obesity Morbid obesity with BMI of 50.0-59.9, adult ([facility]) Environmental and seasonal allergies- Primary Severe persistent asthma, uncomplicated ([facility]) Morbid obesity with BMI of 50.0-59.9, adult ([facility]) Pulmonary emphysema, unspecified emphysema type ([facility]) Encounter for subsequent annual wellness visit (AWV) in Medicare patient- Primary Chronic obstructive pulmonary disease, unspecified ([facility]) Chronic diastolic (congestive) heart failure ([facility]) Emphysema, unspecified ([facility]) Paroxysmal atrial fibrillation ([facility]) Atrial fibrillation Morbid (severe) obesity due to excess calories ([facility]) Body mass index (BMI) 50.0-59.9, adult ([facility]) CATERINA (obstructive sleep apnea) Obstructive sleep apnea (adult) (pediatric) Coronary artery disease involving havasupai coronary artery of havasupai heart without angina pectoris ([facility]) Primary hypertension ([facility]) Unspecified essential hypertension Bilateral lower extremity edema Class 3 severe obesity due to excess calories with serious comorbidity and body mass index (BMI) of 50.0 to 59.9 in adult ([facility]) Pre-diabetes Other abnormal glucose Mixed hyperlipidemia ([facility]) Mixed hyperlipidemia Upper respiratory tract infection, unspecified type Primary hypertension (CMS/HCC) Unspecified essential hypertension Paroxysmal atrial fibrillation (CMS/HCC) Atrial fibrillation Chronic obstructive pulmonary disease, unspecified COPD type (CMS[facility]HCC) [facility] Chronic obstructive pulmonary disease, unspecified COPD type (CMS-HCC)- Primary CATERINA treated with BiPAP Pulmonary nodule Other diseases of lung, not elsewhere classified Restrictive pattern present on pulmonary function testing History of tobacco use Personal history of tobacco use, presenting hazards to health [facility] Chronic diastolic heart failure (CMS-HCC)- Primary Chronic diastolic heart failure [facility] Diagnosis CATERINA treated with BiPAP- Primary [facility] Diagnosis Chronic diastolic heart failure (CMS-HCC) Chronic diastolic heart failure Coronary artery disease involving havasupai coronary artery of havasupai heart without angina pectoris Persistent atrial fibrillation (CMS-HCC) Atrial fibrillation [facility] Diagnosis Atrial fibrillation, unspecified type (CMS-HCC)- Primary History of coronary angioplasty with insertion of stent History of tobacco use Personal history of tobacco use, presenting hazards to health Primary hypertension Unspecified essential hypertension Paroxysmal atrial fibrillation (CMS-HCC) Atrial fibrillation Bilateral lower extremity edema Heart failure with preserved ejection fraction, unspecified HF chronicity (CMS-HCC) [facility] Diagnosis Chronic diastolic heart failure (CMS-HCC)- Primary Chronic diastolic heart failure Coronary artery disease involving havasupai coronary artery of havasupai heart without angina pectoris Persistent atrial fibrillation (CMS-HCC) Atrial fibrillation [facility] Diagnosis Chronic diastolic heart failure (CMS-HCC)- Primary Chronic diastolic heart failure Persistent atrial fibrillation (CMS-HCC) Atrial fibrillation Coronary artery disease involving havasupai coronary artery of havasupai heart without angina pectoris Primary hypertension Unspecified essential hypertension [facility] Diagnosis Chronic diastolic heart failure (CMS-HCC) Chronic diastolic heart failure Coronary artery disease involving havasupai coronary artery of havasupai heart without angina pectoris Persistent atrial fibrillation (CMS-HCC) Atrial fibrillation [facility] Diagnosis Chronic diastolic heart failure (CMS-HCC) Chronic diastolic heart failure Coronary artery disease involving havasupai coronary artery of havasupai heart without angina pectoris Persistent atrial fibrillation (CMS-HCC) Atrial fibrillation [facility] Diagnosis Bilateral lower extremity edema- Primary Primary hypertension (CMS/HCC) Unspecified essential hypertension Paroxysmal atrial fibrillation (CMS/HCC) Atrial fibrillation Morbid obesity with BMI of 50.0-59.9, adult ([facility]) Bilateral lower leg cellulitis Chronic obstructive pulmonary disease, unspecified COPD type ([facility]/HCC) Bilateral lower extremity edema- Primary Acute cough Paroxysmal atrial fibrillation (CMS/HCC) Atrial fibrillation Other emphysema (CMS/HCC) Other emphysema Morbid obesity with BMI of 50.0-59.9, adult ([facility]) Bilateral lower leg cellulitis Primary hypertension ([facility])- Primary Unspecified essential hypertension Morbid obesity with BMI of 50.0-59.9, adult ([facility]) History of tobacco use Personal history of tobacco use, presenting hazards to health Pulmonary emphysema, unspecified emphysema type ([facility]/HCC) Paroxysmal atrial fibrillation ([facility]) Atrial fibrillation Bilateral lower extremity edema Hypoxia Hypoxemia Pneumonia of both lungs due to infectious organism, unspecified part of lung Acute cough Screening for prostate cancer- Primary Special screening for malignant neoplasm of prostate Mixed hyperlipidemia ([facility]) Mixed hyperlipidemia Primary hypertension ([facility]) Unspecified essential hypertension Pre-diabetes Other abnormal glucose Morbid obesity with BMI of 50.0-59.9, adult ([facility]) Hypoxia Hypoxemia Pulmonary emphysema, unspecified emphysema type ([facility]/HCC) Bilateral lower extremity edema CATERINA (obstructive sleep apnea) Obstructive sleep apnea (adult) (pediatric) Venous insufficiency of both lower extremities Atrial fibrillation, unspecified type ([facility]) Pulmonary emphysema, unspecified emphysema type ([facility]/HCC)- Primary Venous insufficiency of both lower extremities Primary hypertension ([facility]) Unspecified essential hypertension Bilateral lower extremity edema Morbid obesity with BMI of 50.0-59.9, adult ([facility]) Pre-diabetes Other abnormal glucose Rising PSA level Paroxysmal atrial fibrillation (I48.0) Atrial fibrillation Pulmonary emphysema, unspecified emphysema type ([facility]/HCC)- Primary Atrial fibrillation, unspecified type ([facility]/HCC) Paroxysmal atrial fibrillation ([facility]/HCC) Atrial fibrillation CATERINA (obstructive sleep apnea) Obstructive sleep apnea (adult) (pediatric) Primary hypertension ([facility]/HCC) Unspecified essential hypertension Morbid obesity with BMI of 50.0-59.9, adult ([facility]) Chronic obstructive pulmonary disease, unspecified COPD type ([facility]) Pre-diabetes- Primary Other abnormal glucose Other thrombophilia CATERINA (obstructive sleep apnea) Obstructive sleep apnea (adult) (pediatric) Pulmonary emphysema, unspecified emphysema type ([facility]) Venous insufficiency of both lower extremities Primary hypertension ([facility]) Unspecified essential hypertension Paroxysmal atrial fibrillation ([facility]) Atrial fibrillation Coronary artery disease involving havasupai coronary artery of havasupai heart without angina pectoris ([facility]) Bilateral lower extremity edema Morbid obesity with BMI of 50.0-59.9, adult ([facility]) Rising PSA level Pre-diabetes- Primary Other abnormal glucose Other emphysema ([facility]) Other emphysema Atrial fibrillation, unspecified type ([facility]) Hyperlipidemia, unspecified ([facility]) Chronic obstructive pulmonary disease, unspecified COPD type ([facility]) Chest pain due to CAD ([facility]) Primary hypertension ([facility]) Unspecified essential hypertension Paroxysmal atrial fibrillation ([facility]) Atrial fibrillation Chronic diastolic heart failure ([facility]) Chronic diastolic heart failure Other headache syndrome Morbid obesity ([facility]) Morbid obesity Morbid obesity with BMI of 50.0-59.9, adult ([facility]) Environmental and seasonal allergies- Primary Severe persistent asthma, uncomplicated ([facility]) Morbid obesity with BMI of 50.0-59.9, adult ([facility]) Pulmonary emphysema, unspecified emphysema type ([facility]) Encounter for subsequent annual wellness visit (AWV) in Medicare patient- Primary Chronic obstructive pulmonary disease, unspecified Chronic diastolic (congestive) heart failure Emphysema, unspecified Paroxysmal atrial fibrillation ([facility]) Atrial fibrillation Morbid (severe) obesity due to excess calories ([facility]) Body mass index (BMI) 50.0-59.9, adult ([facility]) CATERINA (obstructive sleep apnea) Obstructive sleep apnea (adult) (pediatric) Coronary artery disease involving havasupai coronary artery of havasupai heart without angina pectoris ([facility]) Primary hypertension ([facility]) Unspecified essential hypertension Bilateral lower extremity edema Class 3 severe obesity due to excess calories with serious comorbidity and body mass index (BMI) of 50.0 to 59.9 in adult Pre-diabetes Other abnormal glucose Mixed hyperlipidemia ([facility]) Mixed hyperlipidemia Upper respiratory tract infection, unspecified type Primary hypertension ([facility])- Primary Unspecified essential hypertension Pulmonary emphysema, unspecified emphysema type ([facility]) Coronary artery disease involving havasupai coronary artery of havasupai heart without angina pectoris ([facility]) Chronic diastolic (congestive) heart failure Bilateral lower extremity edema Pre-diabetes Other abnormal glucose Mixed hyperlipidemia (CMS/[facility]) Mixed hyperlipidemia Rising PSA level Vitamin D deficiency Hyperlipidemia, unspecified ([facility]) Chronic diastolic heart failure ([facility]/HCC) Chronic diastolic heart failure Atrial fibrillation, unspecified type ([facility]) Chronic obstructive pulmonary disease, unspecified COPD type ([facility]) CATERINA (obstructive sleep apnea) Obstructive sleep apnea (adult) (pediatric) documented in [facility]* Diagnosis 2-vessel coronary artery disease- Primary Paroxysmal atrial fibrillation (Multi) Atrial fibrillation [place] (myocardial infarction) Old myocardial infarction Poor compliance Essential hypertension Unspecified essential hypertension Morbid obesity with BMI of 50.0-59.9, adult (Multi) Obstructive sleep apnea syndrome Obstructive sleep apnea (adult) (pediatric) Former smoker Personal history of tobacco use, presenting hazards to health documented in this encounter [facility] Work Phone: Evaluation note* Diagnosis Bilateral lower extremity edema- Primary Primary hypertension Unspecified essential hypertension Paroxysmal atrial fibrillation (HCC) Atrial fibrillation Morbid obesity with BMI of 50.0-59.9, adult ([facility]) Bilateral lower leg cellulitis Chronic obstructive pulmonary disease, unspecified COPD type (HCC) Bilateral lower extremity edema- Primary Acute cough Paroxysmal atrial fibrillation (HCC) Atrial fibrillation Other emphysema (HCC) Other emphysema Morbid obesity with BMI of 50.0-59.9, adult ([facility]) Bilateral lower leg cellulitis Primary hypertension- Primary Unspecified essential hypertension Morbid obesity with BMI of 50.0-59.9, adult ([facility]) History of tobacco use Personal history of tobacco use, presenting hazards to health Pulmonary emphysema, unspecified emphysema type (HCC) Paroxysmal atrial fibrillation (HCC) Atrial fibrillation Bilateral lower extremity edema Hypoxia Hypoxemia Pneumonia of both lungs due to infectious organism, unspecified part of lung Acute cough Screening for prostate cancer- Primary Special screening for malignant neoplasm of prostate Mixed hyperlipidemia Mixed hyperlipidemia Primary hypertension Unspecified essential hypertension Pre-diabetes Other abnormal glucose Morbid obesity with BMI of 50.0-59.9, adult ([facility]) Hypoxia Hypoxemia Pulmonary emphysema, unspecified emphysema type (HCC) Bilateral lower extremity edema CATERINA (obstructive sleep apnea) Obstructive sleep apnea (adult) (pediatric) Venous insufficiency of both lower extremities Atrial fibrillation, unspecified type (HCC) Pulmonary emphysema, unspecified emphysema type (HCC)- Primary Venous insufficiency of both lower extremities Primary hypertension Unspecified essential hypertension Bilateral lower extremity edema Morbid obesity with BMI of 50.0-59.9, adult ([facility]) Pre-diabetes Other abnormal glucose Rising PSA level Paroxysmal atrial fibrillation (I48.0) Atrial fibrillation Pulmonary emphysema, unspecified emphysema type (HCC)- Primary Atrial fibrillation, unspecified type (HCC) Paroxysmal atrial fibrillation (HCC) Atrial fibrillation CATERINA (obstructive sleep apnea) Obstructive sleep apnea (adult) (pediatric) Primary hypertension Unspecified essential hypertension Morbid obesity with BMI of 50.0-59.9, adult ([facility]) Chronic obstructive pulmonary disease, unspecified COPD type ([facility]) Pre-diabetes- Primary Other abnormal glucose Other thrombophilia ([facility]) CATERINA (obstructive sleep apnea) Obstructive sleep apnea (adult) (pediatric) Pulmonary emphysema, unspecified emphysema type (HCC) Venous insufficiency of both lower extremities Primary hypertension Unspecified essential hypertension Paroxysmal atrial fibrillation (HCC) Atrial fibrillation Coronary artery disease involving havasupai coronary artery of havasupai heart without angina pectoris Bilateral lower extremity edema Morbid obesity with BMI of 50.0-59.9, adult ([facility]) Rising PSA level Pre-diabetes- Primary Other abnormal glucose Other emphysema (HCC) Other emphysema Atrial fibrillation, unspecified type ([facility]) Hyperlipidemia, unspecified Chronic obstructive pulmonary disease, unspecified COPD type ([facility]) Chest pain due to CAD Primary hypertension Unspecified essential hypertension Paroxysmal atrial fibrillation (HCC) Atrial fibrillation Chronic diastolic heart failure (HCC) Chronic diastolic heart failure Other headache syndrome Morbid obesity ([facility]) Morbid obesity Morbid obesity with BMI of 50.0-59.9, adult ([facility]) Environmental and seasonal allergies- Primary Severe persistent asthma, uncomplicated ([facility]) Morbid obesity with BMI of 50.0-59.9, adult ([facility]) Pulmonary emphysema, unspecified emphysema type ([facility]) Encounter for subsequent annual wellness visit (AWV) in Medicare patient- Primary Chronic obstructive pulmonary disease, unspecified (HCC) Chronic diastolic (congestive) heart failure (HCC) Emphysema, unspecified (HCC) Paroxysmal atrial fibrillation (HCC) Atrial fibrillation Morbid (severe) obesity due to excess calories ([facility]) Body mass index (BMI) 50.0-59.9, adult ([facility]) CATERINA (obstructive sleep apnea) Obstructive sleep apnea (adult) (pediatric) Coronary artery disease involving havasupai coronary artery of havasupai heart without angina pectoris Primary hypertension Unspecified essential hypertension Bilateral lower extremity edema Class 3 severe obesity due to excess calories with serious comorbidity and body mass index (BMI) of 50.0 to 59.9 in adult ([facility]) Pre-diabetes Other abnormal glucose Mixed hyperlipidemia Mixed hyperlipidemia Upper respiratory tract infection, unspecified type Primary hypertension- Primary Unspecified essential hypertension Pulmonary emphysema, unspecified emphysema type (HCC) Coronary artery disease involving havas[place]ai coronary artery of havasupai heart without angina pectoris Chronic diastolic (congestive) heart failure (HCC) Bilateral lower extremity edema Pre-diabetes Other abnormal glucose Mixed hyperlipidemia Mixed hyperlipidemia Rising PSA level Vitamin D deficiency Hyperlipidemia, unspecified Chronic diastolic heart failure (HCC) Chronic diastolic heart failure Atrial fibrillation, unspecified type (HCC) Chronic obstructive pulmonary disease, unspecified COPD type ([facility]) CATERINA (obstructive sleep apnea) Obstructive sleep apnea (adult) (pediatric) Paroxysmal atrial fibrillation (HCC) Atrial fibrillation documented in this encounter [facility]* Diagnosis Bilateral lower extremity edema- Primary Primary hypertension Unspecified essential hypertension Paroxysmal atrial fibrillation (HCC) Atrial fibrillation Morbid obesity with BMI of 50.0-59.9, adult ([facility]) Bilateral lower leg cellulitis Chronic obstructive pulmonary disease, unspecified COPD type ([facility]) Bilateral lower extremity edema- Primary Acute cough Paroxysmal atrial fibrillation (HCC) Atrial fibrillation Other emphysema ([facility]) Other emphysema Morbid obesity with BMI of 50.0-59.9, adult ([facility]) Bilateral lower leg cellulitis Primary hypertension- Primary Unspecified essential hypertension Morbid obesity with BMI of 50.0-59.9, adult ([facility]) History of tobacco use Personal history of tobacco use, presenting hazards to health Pulmonary emphysema, unspecified emphysema type (HCC) Paroxysmal atrial fibrillation (HCC) Atrial fibrillation Bilateral lower extremity edema Hypoxia Hypoxemia Pneumonia of both lungs due to infectious organism, unspecified part of lung Acute cough Screening for prostate cancer- Primary Special screening for malignant neoplasm of prostate Mixed hyperlipidemia Mixed hyperlipidemia Primary hypertension Unspecified essential hypertension Pre-diabetes Other abnormal glucose Morbid obesity with BMI of 50.0-59.9, adult ([facility]) Hypoxia Hypoxemia Pulmonary emphysema, unspecified emphysema type (HCC) Bilateral lower extremity edema CAT[place]INA (obstructive sleep apnea) Obstructive sleep apnea (adult) (pediatric) Venous insufficiency of both lower extremities Atrial fibrillation, unspecified type (HCC) Pulmonary emphysema, unspecified emphysema type (HCC)- Primary Venous insufficiency of both lower extremities Primary hypertension Unspecified essential hypertension Bilateral lower extremity edema Morbid obesity with BMI of 50.0-59.9, adult ([facility]) Pre-diabetes Other abnormal glucose Rising PSA level Paroxysmal atrial fibrillation (I48.0) Atrial fibrillation Pulmonary emphysema, unspecified emphysema type (HCC)- Primary Atrial fibrillation, unspecified type (HCC) Paroxysmal atrial fibrillation (HCC) Atrial fibrillation CAT[place]INA (obstructive sleep apnea) Obstructive sleep apnea (adult) (pediatric) Primary hypertension Unspecified essential hypertension Morbid obesity with BMI of 50.0-59.9, adult ([facility]) Chronic obstructive pulmonary disease, unspecified COPD type ([facility]) Pre-diabetes- Primary Other abnormal glucose Other thrombophilia ([facility]) CATERINA (obstructive sleep apnea) Obstructive sleep apnea (adult) (pediatric) Pulmonary emphysema, unspecified emphysema type ([facility]) Venous insufficiency of both lower extremities Primary hypertension Unspecified essential hypertension Paroxysmal atrial fibrillation (HCC) Atrial fibrillation Coronary artery disease involving havas[place]ai coronary artery of havasupai heart without angina pectoris Bilateral lower extremity edema Morbid obesity with BMI of 50.0-59.9, adult ([facility]) Rising PSA level Pre-diabetes- Primary Other abnormal glucose Other emphysema (HCC) Other emphysema Atrial fibrillation, unspecified type ([facility]) Hyperlipidemia, unspecified Chronic obstructive pulmonary disease, unspecified COPD type ([facility]) Chest pain due to CAD Primary hypertension Unspecified essential hypertension Paroxysmal atrial fibrillation (HCC) Atrial fibrillation Chronic diastolic heart failure (HCC) Chronic diastolic heart failure Other headache syndrome Morbid obesity ([facility]) Morbid obesity Morbid obesity with BMI of 50.0-59.9, adult ([facility]) Environmental and seasonal allergies- Primary Severe persistent asthma, uncomplicated ([facility]) Morbid obesity with BMI of 50.0-59.9, adult ([facility]) Pulmonary emphysema, unspecified emphysema type ([facility]) Encounter for subsequent annual wellness visit (AWV) in Medicare patient- Primary Chronic obstructive pulmonary disease, unspecified ([facility]) Chronic diastolic (congestive) heart failure (HCC) Emphysema, unspecified (HCC) Paroxysmal atrial fibrillation (HCC) Atrial fibrillation Morbid (severe) obesity due to excess calories ([facility]) Body mass index (BMI) 50.0-59.9, adult ([facility]) CATERINA (obstructive sleep apnea) Obstructive sleep apnea (adult) (pediatric) Coronary artery disease involving havasupai coronary artery of havasupai heart without angina pectoris Primary hypertension Unspecified essential hypertension Bilateral lower extremity edema Class 3 severe obesity due to excess calories with serious comorbidity and body mass index (BMI) of 50.0 to 59.9 in adult ([facility]) Pre-diabetes Other abnormal glucose Mixed hyperlipidemia Mixed hyperlipidemia Upper respiratory tract infection, unspecified type Primary hypertension- Primary Unspecified essential hypertension Pulmonary emphysema, unspecified emphysema type (HCC) Coronary artery disease involving havasupai coronary artery of havasupai heart without angina pectoris Chronic diastolic (congestive) heart failure (HCC) Bilateral lower extremity edema Pre-diabetes Other abnormal glucose Mixed hyperlipidemia Mixed hyperlipidemia Rising PSA level Vitamin D deficiency Hyperlipidemia, unspecified Chronic diastolic heart failure (HCC) Chronic diastolic heart failure Atrial fibrillation, unspecified type (HCC) Chronic obstructive pulmonary disease, unspecified COPD type (HCC) CATERINA (obstructive sleep apnea) Obstructive sleep apnea (adult) (pediatric) Primary hypertension- Primary Unspecified essential hypertension CATERINA (obstructive sleep apnea) Obstructive sleep apnea (adult) (pediatric) Chronic diastolic (congestive) heart failure (HCC) Coronary artery disease involving havasupai coronary artery of havasupai heart without angina pectoris Paroxysmal atrial fibrillation (HCC) Atrial fibrillation Bilateral lower extremity edema Class 3 severe obesity due to excess calories with serious comorbidity and body mass index (BMI) of 50.0 to 59.9 in adult ([facility]) Pre-diabetes Other abnormal glucose Thyroid nodule Nontoxic uninodular goiter Pulmonary emphysema, unspecified emphysema type (HCC) Moderate persistent asthma without complication (HCC) Hyperlipidemia, unspecified Chronic diastolic heart failure (HCC) Chronic diastolic heart failure Atrial fibrillation, unspecified type (HCC) documented in this encounter [facility] HealthcareEvaluation note* Diagnosis Chronic obstructive pulmonary disease, unspecified COPD type ([facility])- Primary [facility] this [facility] N[facility]* Patient is here for follow-up and to [...] coronary artery with known occlusion of his havasupai circ. He remains active but difficult to [...] stress testing to clear him for surgery. [facility] 600 DO Work Phone: History of Present [...] software was utilized to prepare this document. [facility] 305 DO Work Phone: [...] software was utilized to prepare this document. [facility] Work Phone: InstructionsNot on filedocumented in this encounter [facility]ructions[facility] on filedocumented in this encounter [facility]ructionsNot on filedocumented in this encounter [facility]ructionsNot on filedocumented in this encounter [facility] on filedocumented in this encounter [facility] on filedocumented in this encounter [facility] on filedocumented in this encounter [facility]Not on filedocumented in this encounter [facility]ructionsNot on filedocumented in this encounter [facility] System[facility]ructionsNot on filedocumented in this encounter [facility] SystemInstructionsNot on filedocumented in this encounter [facility] SystemReason for referral (narrative)* Consultation (Routine) - Authorized Specialty Diagnoses / Procedures Referred By Fifi pablo Referred To Contact Cardiology Diagnoses Paroxysmal atrial fibrillation (Multi) Procedures Follow Up In Cardiology Madison Blanco MD [address] [place] [address], [address] [address] Madison Blanco MD [address] [place] [address] 2, [address] [address] Referral ID Status Reason Start Date Expiration Date V isits Requested Visits Authorized [id number] Authorized 10/08/2023 10/07/2024 1 1 [facility] Work Phone: Reason for referral (narrative)* Consultation (Routine) - Pending Review Specialty Diagnoses / Procedures Referred By Fifi t Referred To Contact Heart Failure Services Diagnoses Heart failure with preserved ejection fraction, unspecified HF chronicity ([facility]) Faith Mandujano MD [address] [place] [address] [facility] [address] [place] [address] Referral ID Status Reason Start Date Expiration Date V isits Requested Visits Authorized [id number] Pending Review 07/26/2023 07/25/2024 1 1 * Consultation (Routine) - Pending Review Specialty Diagnoses / Procedures Referred By Contac t Referred To Contact Cardiology Diagnoses Atrial fibrillation, unspecified type ([facility]) Faith Mandujano MD [address] [place] [address] Juan Jose Lee MD [address] [place] [address] [address] Referral ID Status Reason Start Date Expiration Date Visits Requested Visits Authorized [id number] Pending Review Specialty Services Required 07/26/2023 07/25/2024 1 1 [facility] Summary Purpose Family History No Family History [...] cardiology follow up. Former patient of Dr. Blanco.Patient here for overdue general cardiology follow up. Former patient of Dr. Blanco. Reason for Referral Specialty Diagnoses / Procedures Referred By Fifi pablo Referred To Contact Diagnoses Chronic obstructive pulmonary disease, unspecified COPD type ([facility]) CATERINA treated with BiPAP Restrictive pattern present on pulmonary function testing Procedures Nocturnal [place] [address] [place] [address] Referral ID Status Reason Start Date Expiration Date V isits Requested Visits Authorized [id number] Pending Review 10/25/2023 10/24/2024 1 1 Specialty Diagnoses / Procedures Referred By Fifi pablo Referred To Contact Diagnoses CATERINA treated with BiPAP Procedures Polysomnography 4 or more parameters with PAP titration Lisa Cervantes, DO [address] [address] Referral ID Status Reason Start Date Expiration Date V isits Requested Visits Authorized [id number] Pending Review 11/13/2023 11/12/2024 1 1 Additional Source Comments (unrecognized sect ion and content) No Status Records FoundNo Status Records FoundNo Status Records FoundNo Status Records FoundNo Status Records FoundNo Status Records FoundNo Status Records FoundNo Status Records FoundNo Status Records FoundNo Status Records Found INFORMATION SOURCE (unrecogn ized section and content) DATE CREATED AUTHOR 12/06/2017 [facility] DATE CREATED AUTHOR AUTHOR'S ORGANIZ ATION 07/20/2022 [facility] DATE CREATED AUTHOR AUTHOR'S ORGANIZ ATION 07/20/2022 [facility] DATE CREATED AUTHOR AUTHOR'S ORGANIZ ATION 10/29/2022 [facility] DATE CREATED AUTHOR AUTHOR'S ORGANIZ ATION 12/23/2022 [facility] DATE CREATED AUTHOR AUTHOR'S ORGANIZ ATION 10/27/2023 [facility] DATE CREATED AUTHOR AUTHOR'S ORGANIZ ATION 11/17/2023 [facility] DATE CREATED AUTHOR AUTHOR'S ORGANIZ ATION 10/22/2024 [facility] DATE CREATED AUTHOR AUTHOR'S ORGANIZ ATION 12/26/2024 [facility] DATE CREATED AUTHOR AUTHOR'S ORGANIZ ATION 01/26/2025 [facility] Reason for Visit (unrecogniz ed section and content) Reason Comments Hospital Follow-up Reason Comments Follow-up overdue Reason Onset Date Comments Med Refill 03/24/2024 Reason Comments Med Refill Reason Comments Medicare Annual Wellness Visit Initial Reason Comments Follow-up COPD On 4Lnc of O2 contin uouslyArrived on 3Lnc of O2PFT: not completed Sleep Apnea DME: [facility] Reason Onset Date Comments Sleep Lab 11/14/2023 Pap Order Reason Comments 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 Specialty Diagnoses / Procedures Referred By Fifi t Referred To Contact Cardiology Diagnoses Paroxysmal atrial fibrillation ([facility]) Bilateral lower extremity edema Eusebia Terrell, HEALTH OCCUPATIONS TEACHER-REPORTER ANCHOR [address] [place] [address] [facility] Cardiology [address] [address] Referral ID Status Reason Start Date Expiration Date Visits Requested Visits Authorized [id number] Pending Review Specialty Services Required 06/29/2023 06/28/2024 1 1 Reason Onset Date Comments KCL 08/21/2023 Reason Comments Congestive Heart Failure Specialty Diagnoses / Procedures Referred By Contmallory t Referred To Contact Heart Failure Services Diagnoses Heart failure with preserved ejection fraction, unspecified HF chronicity ([facility]) Faith Mandujano MD [address] [place] [address] [facility] [address] [place] [address] Referral ID Status Reason Start Date Expiration Date V isits Requested Visits Authorized [id number] Pending Review 07/26/2023 07/25/2024 1 1 Reason Onset Date Comments overdue lab 05/23/2024 Reason Comments Follow-up 6 month follow up 2- vessel coronary artery disease Specialty Diagnoses / Procedures Referred By Contac t Referred To Contact Cardiology Diagnoses Paroxysmal atrial fibrillation (Multi) Procedures Follow Up In Cardiology Madison Blanco MD [address] [facility] 2, [place] [id number] Phone: tel: fax: Madison Blanco MD [address] [place] [address] 2, [place] [phone] Phone: tel: fax: Referral ID Status Reason Start Date Expiration Date V isits Requested Visits Authorized [id number] Authorized 10/08/2023 10/07/2024 1 1 Care Teams (unrecognized sec tion and content) Medical Office Specialist Relationship Specialty Start Date End Date Eusebia Terrell, HEALTH OCCUPATIONS TEACHER-REPORTER ANCHOR [address] [place] [address] PCP - General 11/04/19 Medical Office Specialist Relationship Specialty Start Date End Date Mirza Guzmán MD [address] [place] [address] PCP - General Family Medicine 06/05/23 Eusebia Terrell NP [address] [place] [address] Nurse Practitioner Family Medicine 03/18/23 Medical Office Specialist Relationship Specialty Start Date End Date Mirza Guzmán MD [address] [place] [address] PCP - General Family Medicine 06/05/23 Eusebia Terrell NP [address] [place] [address] Nurse Practitioner Family Medicine 03/18/23 Medical Office Specialist Relationship Specialty Start Date End Date Eusebia Terrell, HEALTH OCCUPATIONS TEACHER-REPORTER ANCHOR [address] [place] [address] PCP - General 11/04/19 Justyn Covington MD [address] [facility] Office Bl, [address] [address] Die Keeper Cardiology 07/05/23 Medical Office Specialist Relationship Specialty Start Date End Date Mirza Guzmán MD [address] [place] [address] PCP - General Family Medicine 08/14/23 Eusebia Terrell NP [address] [place] [address] Nurse Practitioner Family Medicine 03/18/23 Medical Office Specialist Relationship Specialty Start Date End Date Unallocated, Tyrell Gomes MD [address] [place] [address] PCP - General Family Medicine 04/09/24 Eusebia Terrell NP [address] [place] [place] [address] Nurse Practitioner Family Medicine 03/18/23 Medical Office Specialist Relationship Specialty Start Date End Date Unallocated, Tyrell Gomes MD [address] [place] [address] PCP - General Family Medicine 04/09/24 Eusebai Terrell NP [address] [place] [address] Nurse Practitioner Family Medicine 03/18/23 Medical Office Specialist Relationship Specialty Start Date End Date Mirza Guzmán MD [address] [place] [address] PCP - General Family Medicine 08/14/23 Eusebia Terrell NP [address] [place] [address] Nurse Practitioner Family Medicine 03/18/23 Medical Office Specialist Relationship Specialty Start Date End Date Mirza Guzmán MD [address] [place] [address] PCP - General Family Medicine 08/14/23 Eusebia Terrell NP [address] [place] [address] Nurse Practitioner Family Medicine 03/18/23 Medical Office Specialist Relationship Specialty Start Date End Date Mirza Guzmán MD [address] [place] [address] PCP - General Family Medicine 04/17/24 Eusebia Terrell NP [address] [place] [address] Nurse Practitioner Family Medicine 03/18/23 Medical Office Specialist Relationship Specialty Start Date End Date Mirza Guzmán MD [address] [place] [address] PCP - General Family Medicine 04/17/24 Eusebia Terrell NP [address] [place] [address] Nurse Practitioner Family Medicine 03/18/23 Medical Office Specialist Relationship Specialty Start Date End Date Mirza Guzmán MD [address] [place] [address] PCP - General Family Medicine 04/17/24 Eusebia Terrell NP [address] [place] [address] Nurse Practitioner Family Medicine 03/18/23 Medical Office Specialist Relationship Specialty Start Date End Date Eusebia Terrell APRN-REPORTER ANCHOR PCP - General Nurse Practitioner 08/20/23 Medical Office Specialist Relationship Specialty Start Date End Date Eusebia Terrell HEALTH OCCUPATIONS TEACHER-REPORTER ANCHOR [address] [place] [address] PCP - General Nurse Practitioner 08/20/23 Medical Office Specialist Relationship Specialty Start Date End Date Eusebia Terrell, HEALTH OCCUPATIONS TEACHER-REPORTER ANCHOR [address] [place] [address] PCP - General Nurse Practitioner 08/20/23 Medical Office Specialist Relationship Specialty Start Date End Date Eusebia Terrell, HEALTH OCCUPATIONS TEACHER-REPORTER ANCHOR [address] [place] [address] PCP - General Nurse Practitioner 08/20/23 Medical Office Specialist Relationship Specialty Start Date End Date Mirza Guzmán MD [address] [place] [address] PCP - General Family Medicine 04/17/24 Eusebia Terrell NP [address] [place] [address] Nurse Practitioner Family Medicine 03/18/23 Medical Office Specialist Relationship Specialty Start Date End Date Eusebia Terrell HEALTH OCCUPATIONS TEACHER-REPORTER ANCHOR [address] [place] [address] PCP - General Nurse Practitioner 08/20/23 Medical Office Specialist Relationship Specialty Start Date End Date Eusebia Terrell HEALTH OCCUPATIONS TEACHER-REPORTER ANCHOR [address] [place] [address] PCP - General Nurse Practitioner 08/20/23 Medical Office Specialist Relationship Specialty Start Date End Date Eusebia Terrell HEALTH OCCUPATIONS TEACHER-REPORTER ANCHOR [address] [place] [address] PCP - General Nurse Practitioner 08/20/23 Medical Office Specialist Relationship Specialty Start Date End Date Gi Kimble [address] [place] [address] [address] PCP - General Physical Therapy 12/31/20 Medical Office Specialist Relationship Specialty Start Date End Date Eusebia Terrell, HEALTH OCCUPATIONS TEACHER-REPORTER ANCHOR [address] [place] [address] PCP - General Nurse Practitioner 08/20/23 Medical Office Specialist Relationship Specialty Start Date End Date Eusebia Terrell [facility] [address] [place] [address] PCP - General Nurse Practitioner 08/20/23 Medical Office Specialist Relationship Specialty Start Date End Date Gi Kimble [address] [place] [address] [phone] PCP - General Physical Therapy 12/31/20 Medical Office Specialist Relationship Specialty Start Date End Date Eusebia Terrell [facility] [address] [place] [address] PCP - General Nurse Practitioner 08/20/23 Medical Office Specialist Relationship Specialty Start Date End Date Eusebia Terrell [facility] [address] [place] [address] PCP - General Nurse Practitioner 08/20/23 Medical Office Specialist Relationship Specialty Start Date End Date Eusebia Terrell [facility] [address] [place] [address] PCP - General Nurse Practitioner 08/20/23 Medical Office Specialist Relationship Specialty Start Date End Date Eusebia Terrell [facility] [address] [place] [address] PCP - General Nurse Practitioner 08/20/23 Medical Office Specialist Relationship Specialty Start Date End Date Eusebia Terrell, HEALTH OCCUPATIONS TEACHER-[facility] PCP - General Nurse Practitioner 08/20/23 Medical Office Specialist Relationship Specialty Start Date End Date Eusebia Terrell, [facility]ALTH OCCUPATIONS [facility] PCP - General Nurse Practitioner 08/20/23 Medical Office Specialist Relationship Specialty Start Date End Date Eusebia Terrell, [facility]CC[facility]ATIONS [facility] PCP - General Nurse Practitioner 08/20/23 Medical Office Specialist Relationship Specialty Start Date End Date Eusebia Terrell, [facility]ALTH [facility]CCUPATIONS [facility] PCP - General Nurse Practitioner 08/20/23 Medical Office Specialist Relationship Specialty Start Date End Date Mirza Guzmán MD [address] [place] [address] PCP - General Family Medicine 04/17/24 Eusebia Terrell NP [address] [place] [address] Nurse Practitioner Family Medicine 03/18/23 Medical Office Specialist Relationship Specialty Start Date End Date Mirza Guzmán MD [address] [place] [address] PCP - General Family Medicine 04/17/24 Eusebia Terrell NP [address] [place] [address] Nurse Practitioner Family Medicine 03/18/23 Medical Office Specialist Relationship Specialty Start Date End Date Eusebia Terrell, HEALTH OCCUPATIONS TEACHER-REPORTER ANCHOR [address] [place] [address] PCP - General 11/04/19 Justyn Covington MD [address] [facility] Medical Office Bldg, Pank[address] [place], [place] [phone] Die Keeper Cardiology 07/05/23 Medical Office Specialist Relationship Specialty Start Date End Date Mirza Guzmán MD [address] [place] [address] PCP - General Family Medicine 04/17/24 Eusebia Terrell NP [address] [place] [address] Nurse Practitioner Family Medicine 03/18/23 Medical Office Specialist Relationship Specialty Start Date End Date Mirza Guzmán MD [address] [place] [address] PCP - General Family Medicine 04/17/24 Eusebia Terrell NP [address] [place] [address] Nurse Practitioner Family Medicine 03/18/23 Medical Office Specialist Relationship Specialty Start Date End Date Mirza Guzmán MD [address] [place] [address] PCP - General Family Medicine 04/17/24 Eusebia Terrell NP [address] [place] [address] Nurse Practitioner Family Medicine 03/18/23 Medical Office Specialist Relationship Specialty Start Date End Date Mirza Guzmán MD [address] [place] [address] PCP - General Family Medicine 04/17/24 Eusebia Terrell NP [address] [place] [address] Nurse Practitioner Family Medicine 03/18/23 FOR RECORDS [...] BE BASED ON THE PRIMARY CLINICAL RECORDS. [employer] provides no warranty or guarantee of the accuracy or completeness of information in this document."
--- OUTSIDE RECORDS SUMMARY | 2025-01-29 20:31 | XMS_ITS | Encounter Summary ---
Author Organization [facility] mphoria [facility] tem Address [id number] [address] [place] [address] Care Team Providers Care Executive Sales Assistant Name Role Phone Eusebia Terrell PATSY-TASSEL CLIPPER Primary Care Provider Encounter Details Date Type Department Care Team (Late st Contact Info) Description 07/25/2023 Orders Only [facility] Physicians Cardiology [address] [place] [address] External, Scanning Provider Social History Tobacco Use Types Packs/Day Years [...] 11:30 AM EST Appointment [facility] - Pulmonary Function [address] [place] [address] Lisa Cervantes, DO [address] [address] 05/21/2025 9:45 AM EST Office Visit [facility] Pulmonary/Sleep Medicine [address] [address] Lisa Cervantes, DO [address] [address] documented as of this encounter Procedures Procedure Name Priority Date/Time Associated Diagnosis Comments H-CARDIAC CATHETERIZATION Routine 07/25/2023 10:24 AM EST documented in this encounter Results * Cardiac catheterization (07/25/2023 10:24 AM EST) Anatomical Region Laterality Modality Other us Scanning Provider External CV CARDIAC CATH ORDER SOLOMON Final Result documented in this encounter Visit Diagnoses Not on filedocumented in this encounter Care Teams Executive Sales Assistant Relationship Specialty Start Date End Date Eusebia Terrell, RN CLINICAL DOCUMENTATION-TASSEL CLIPPER PCP - General Nurse Practitioner 08/20/23 documented as of this encounter
--- OUTSIDE RECORDS SUMMARY | 2025-01-29 20:31 | XMS_ITS | Encounter Summary ---
Author Organization [facility] Address [address] [facility] [place] [address] Care Team Providers Care [employer] Name Role Phone Eusebia Terrell NP Unavailable [phone] Mirza Pérez MD Primary Care Provider [phone] Mirza Pérez MD Primary Care Provider [phone] Unallocated, Noms Provider Primary Care Provi lindsey Mirza Pérez MD Primary Care Provider [phone] Encounter Details Date Type Department Care Team (Late st Contact Info) Description 05/24/2023 Clinisync Result Encounter [facility] Unsolicited [...] Visit [facility] [address] [place] [address] Eusebia Terrell NP [address] [place] [address] documented as of this encounter Procedures Procedure Name Priority Date/Time Associated Diagnosis Comments MR KNEE RT WO CON 05/24/2023 1:4 0 AM EST documented in this encounter Results * MR KNEE RT WO CON (05/24/2023 1:40 AM EST) Anatomical Region Laterality Modality Other 05/24/2023 1:40 AM EST Narrative 05/24/2023 1:44 AM EST [address] [address] Magnetic Resonance Report Signed Patient: ELYSE DUONG MR#: [id number] : 1965 Acct:[id number] Age/Sex: 57 / M ADM Date: 05/23/23 Loc: MRI Attending Dr: Lilly Santos Ordering Physician: Lilly Santos Date of Service: 05/23/23 Procedure(s): knee RT wo con Accession Number(s): [id number] cc: Eusebia Terrell [employer]; Lilly Santos [place] [address] Patient Name: ELYSE DUONG MRN: [id number] date: 1965 Sex: M Assigned Patient Location: MRI Current Patient Location: Accession/Order Number: [id number] Exam Date: 05/23/2023 13:10 Report Date: 05/24/2023 01:40 At the request of: LILLY SANTOS Procedure: MR knee RT wo con EXAMINATION: MR knee RT wo con HISTORY: sprain of right knee, strain of right knee COMPARISON: MRI knee right 12/04/2022 TECHNIQUE: A complete multi-planar MRI was performed. FINDINGS: MEDIAL COMPARTMENT MEDIAL MENISCUS: No visible tear or significant degeneration. CARTILAGE: No visible defect. BONES: No marrow pathology, fracture, or significant arthropathy. MCL AND MEDIAL CAPSULE: Normal medial collateral ligament and medial capsule. LATERAL COMPARTMENT LATERAL MENISCUS: No visible tear or significant degeneration. CARTILAGE: No visible defect. BONES: No marrow pathology, fracture, or significant arthropathy. LCL/POSTEROLAT COMPLEX: Normal lateral collateral ligament, fascicles, lateral capsule and ligaments. ANTERIOR COMPARTMENT PATELLA: Small focal area of subchondral edema involving the mid body of patella apex. CARTILAGE: Suspect mid patellar apex small cartilage defect/tear. TENDONS: Normal. EFFUSION: Small joint effusion. ACL: Normal appearing ligament. PCL: Normal appearing ligament. MENISCOFEMORAL: Normal meniscofemoral ligaments. OTHER: Subcutaneous edema. MR/MR knee RT wo con IMPRESSION: 1. 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 2. Small joint effusion. 3. Subcutaneous edema. Electronically authenticated by: YUAN KITCHEN Date: 05/24/2023 01:40 Dictated By: Yuan Kitchen M.D. Signed By: 05/24/23143 DD/ 9 TD/TT: Pony Ride Operator: Procedure Note Radiology, Radiologist, MD - 05/24/2023 [place] [address] Magnetic Resonance Report Signed Patient: ELYSE DUONG AMR#: [id number] : 1965Acct:[id number] Age/Sex: 57 / MADM Date: 05/23/23 Loc: MRI Attending Dr: Lilly Santos Ordering Physician: Lilly Santos Date of Service: 05/23/23 Procedure(s): MR knee RT wo con Accession Number(s): [id number] cc: Eusebia Terrell [employer]; Lilly Santos [place] [id number] Patient Name: ELYSE DUONG MRN: [id number] date: 1965 Sex: M Assigned Patient Location: MRI Current Patient Location: Accession/Order Number: [id number] Exam Date: 05/23/2023 13:10 Report Date: 05/24/2023 01:40 At the request of: LILLY SANTOS Procedure: MR knee RT wo con EXAMINATION: MR knee RT wo con HISTORY: sprain of right knee, strain of right knee COMPARISON: MRI knee right 12/04/2022 TECHNIQUE: A complete multi-planar MRI was performed. FINDINGS: MEDIAL COMPARTMENT MEDIAL MENISCUS: No visible tear or significant degeneration. CARTILAGE: No visible defect. BONES: No marrow pathology, fracture, or significant arthropathy. MCL AND MEDIAL CAPSULE: Normal medial collateral ligament and medialcapsule. LATERAL COMPARTMENT LATERAL MENISCUS: No visible tear or significant degeneration. CARTILAGE: No visible defect. BONES: No marrow pathology, fracture, or significant arthropathy. LCL/POSTEROLAT COMPLEX: Normal lateral collateral ligament, fascicles,lateral capsule and ligaments. ANTERIOR COMPARTMENT PATELLA: Small focal area of subchondral edema involving the mid body of patella apex. CARTILAGE: Suspect mid patellar apex small cartilage defect/tear. TENDONS: Normal. EFFUSION: Small joint effusion. ACL: Normal appearing ligament. PCL: Normal appearing ligament. MENISCOFEMORAL: Normal meniscofemoral ligaments. OTHER: Subcutaneous edema. MR/MR knee RT wo con IMPRESSION: 1. 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 2. Small joint effusion. 3. Subcutaneous edema. Electronically authenticated by: YUAN KITCHEN Date: 05/24/2023 01:40 Dictated By: Yuan Kitchen M.D. Signed By:05/24/23143 DD/ 9 TD/TT: Pony Ride Operator: Generic External Data Provider [facility] Final Result documented in this encounter Visit Diagnoses Not on filedocumented in this encounter Care Teams [employer] Relationship Specialty Start Date End Date Mirza Pérez MD [address] [place] [address] PCP - General Family Medicine 06/05/23 08/13/23 Mirza Pérez MD [address] [place] [address] PCP - General Family Medicine 08/14/23 04/08/24 Unallocated, Coco Gomes MD [address] [place] [address] PCP - General Family Medicine 04/09/24 04/16/24 Mirza Pérez MD [address] [place] [address] PCP - General Family Medicine 04/17/24 Eusebia Terrell NP [address] [place] [id number] Nurse Practitioner Family Medicine 03/18/23 documented as of this encounter
--- OUTSIDE RECORDS SUMMARY | 2025-01-29 20:31 | XMS_ITS | Clinical Summary ---
Author Organization [facility] Healthcare Address [address] [place] [address] Care Team Providers Care Makeup Artistry Instructor Name Role Phone Eusebia Terrell NP Unavailable [phone] Mirza Pérez MD Primary Care Provider Allergies Active Allergy Reactions Criticality Noted Date Comments Lisinopril Cough Medium 04/12/2023 Medications nitroglycerin (Nitrostat) 0.4 MG SL tabletIndication s:Chest pain due to CAD Place 1 tablet (0.4 mg) under the tongue every 5 (five) minutes if needed for chest pain (may take a total of 3 doses, if not pain free by 3rd dose, call 911). 30 tablet 3 Active ipratropium-albu terol (Duo-Neb) 0.5-2.5 mg/3 mL nebulizer solution Inhale 3 mL in the morning and 3 mL at noon and 3 mL in the evening and 3 mL before bedtime. 4 Active oxygen (O2) gas Inhale continuously Active torsemide (Demadex) 20 MG tablet Take 20 mg by mouth in the morning and 20 mg at noon. Active losartan (Cozaar) 50 MG tabletIndication s:Primary hypertension Take 1 tablet (50 mg) by mouth Daily 90 tablet 1 4 Active metoprolol tartrate (Lopressor) 50 MG tabletIndication s:Primary hypertension,Par oxysmal atrial fibrillation (HCC) Take 1 tablet (50 mg) by mouth in the morning and 1 tablet (50 mg) before bedtime. 180 tablet 1 5 Active levalbuterol (Xopenex) 45 MCG/ACT inhalerIndicatio ns:Chronic obstructive pulmonary disease, unspecified COPD type (HCC) Inhale 2 puffs every 6 (six) hours if needed for wheezing or shortness of breath 15 g 1 5 Active dilTIAZem CD (Cardizem CD) 240 MG 24 hr capsuleIndicatio ns:Atrial Fibrillation,Hyp ertension Take 1 capsule (240 mg) by mouth Daily 90 capsule 1 5 Active Fluticasone-Umec lidin-Vilant (Trelegy Ellipta) 100-62.5-25 MCG/ACT aerosol powderIndication s:Chronic obstructive pulmonary disease, unspecified COPD type (HCC) Use 1 puff in the mouth or throat Daily Rinse mouth after use 3 each 1 5 Active apixaban (Eliquis) 5 MG tabletIndication s:Atrial fibrillation, unspecified type (HCC) Take 1 tablet (5 mg) by mouth in the morning and 1 tablet (5 mg) before bedtime. 60 tablet 2 5 Active aspirin (Aspirin Low Dose) 81 MG EC tabletIndication s:Paroxysmal atrial fibrillation (HCC) Take 1 tablet (81 mg) by mouth Daily 90 tablet 1 5 025 Active atorvastatin (Lipitor) 40 MG tabletIndication s:Hyperlipidemia , unspecified Take 1 tablet (40 mg) by mouth at bedtime 90 tablet 1 5 025 Active dapagliflozin (Farxiga) 10 MGIndications:Pr e-diabetes,Chron ic diastolic heart failure (HCC) Take 1 tablet (10 mg) by mouth Daily 90 tablet 1 5 025 Active Active Problems Problem Noted Date Diagnosed Date Moderate persistent asthma without complication 12/22/2024 Assessment & Plan (12/22/2024 6:55 AM EDT): Inhaler, nebs Vitamin D deficiency 09/18/2024 Assessment & Plan (09/18/2024 6:45 AM EDT): Vit d level 24 on 09/17/24 Add vit d 2,000 international units daily Emphysema, unspecified 06/19/2024 Assessment & Plan (12/22/2024 4:35 PM EDT): Telegy, and prn xopenex I have instructed pt to call his batch and furnace operator, he states he will do this tomorrow (which would be 12/23/24) Assessment & Plan (09/18/2024 6:40 AM EDT): Telegy, and prn xopenex Pulmonology as well Assessment & Plan (06/19/2024 6:33 AM EST): Telegy, and prn xopenex Pulmonology as well Benign fibroma of prostate 06/19/2024 Dependence on other enabling machines and device s 06/19/2024 Encounter for subsequent [facility] wellness visit (AWV) in Medicare patient 05/06/2024 Assessment & Plan (06/19/2024 6:38 AM EST): Reviewed Ht/Wt/BMI Recommend eye exam yearly Recommend dental exams twice a year Balance work/leisure activities Exercises is recommended most days of the week (appropriate as chronic conditions allow) Follow up yearly and prn Class 3 severe obesity due t o excess calories with serious comorbidity and body mass index (BMI) of 50.0 to 59.9 in adult 05/06/2024 Assessment & Plan (12/22/2024 6:50 AM EDT): Discussed with patient their BMI (actual, verses [...] that avenue to help with weight loss Assessment & Plan (09/18/2024 6:41 AM EDT): Discussed with patient their BMI (actual, verses [...] that avenue to help with weight loss Assessment & Plan (06/19/2024 6:37 AM EST): Discussed with patient their BMI (actual, verses [...] that avenue to help with weight loss Environmental and seasonal allergies 04/09/2024 Assessment & Plan (04/09/2024 4:48 PM EDT): I think this represents more of allergies no viral illness not bacteria OTC allergy meds/nasal steroids Contact office if worsening in symtpoms Other headache syndrome 02/06/2024 Assessment & Plan (02/06/2024 9:40 AM EDT): Neuro no deficits Possible related to not wearing pap If worsens contact office Chronic diastolic (congestive) heart failure 10/2023 Assessment & Plan (12/22/2024 4:50 PM EDT): Follows with cardiology Daily weights, limit sodium as well Current meds: asa, farxiga, losartan,b preet, toersemide Check labs prn Assessment & Plan (09/18/2024 6:41 AM EDT): Follows with cardiology Daily weights, limit sodium as well Current meds: asa, farxiga, losartan,b preet, spironolactone, toersemide Check labs prn Assessment & Plan (06/19/2024 6:34 AM EST): Follows with cardiology Daily weights, limit sodium as well Current meds: asa, farxiga, losartan,b preet, spironolactone, toersemide Check labs prn Assessment & Plan (02/06/2024 9:39 AM EDT): Take farxiga and diuretics and bp meds Superficial phlebitis and th rombophlebitis of left lower extremity 08/16/2023 Chondromalacia 08/16/2023 Rising PSA level 08/06/2023 Overview (09/18/2024): PSA: 07/20/20 2.04, 01/11/22 1.85, 08/06/23 3.81, and 12/21/23 1.89, free psa 0.51 and 27% 09/17/24: 1.26, 23% free psa 0.29 Assessment & Plan (09/18/2024 6:43 AM EDT): Improvement from rist in 08/06/23 which was 3.81, then 1.89 01/08, then 1.26 in 09/17/24 Assessment & Plan (12/24/2023 9:29 AM EDT): Monitor again in 6 months Assessment & Plan (08/16/2023 10:44 AM EST): Reviewed PSA level, and in a month we will check PSA and a free PSA level Venous insufficiency of both lower extremities 0 07/19/2023 Assessment & Plan (12/24/2023 9:22 AM EDT): Stable at this time No changes in meds/doses Assessment & Plan (08/16/2023 10:41 AM EST): Swelling is looking better Myocardial infarction 07/19/2023 Thyroid nodule 07/19/2023 Assessment & Plan (12/22/2024 6:53 AM EDT): Hx of thyroid nodule Thyroid labs in 4/25 WNL No supplemental levo Check thyroid US Screening for prostate cancer 07/19/2023 Pre-diabetes 07/19/2023 Assessment & Plan (12/22/2024 6:51 AM EDT): Monitor for s/s of hypoglycemia (sweaty, dizziness, [...] providing treatment as well A1c 5.9% 06/19/24 Assessment & Plan (09/18/2024 6:41 AM EDT): Monitor for s/s of hypoglycemia (sweaty, dizziness, [...] providing treatment as well A1c 5.9% 06/19/24 Assessment & Plan (06/19/2024 10:29 AM EST): Monitor for s/s of hypoglycemia (sweaty, dizziness, [...] providing treatment as well A1c 5.9% 06/19/24 Assessment & Plan (02/06/2024 9:39 AM EDT): Has new insurance, will re try with ozempic Assessment & Plan (12/24/2023 9:26 AM EDT): Is currently on farxiga, with this A1c is less than 7%, also w risk factors of CAD, afib, DM, HF Will attempt to add ozempic as has cardiovascular disease indication Assessment & Plan (08/16/2023 10:43 AM EST): Discussed A1c test, 6.1%, recommend cutting back carbs as well as weight loss Was considering weight loss surgery, lost in follow up there Hypokalemia 07/14/2023 Chronic obstructive pulmonary disease, unspecifi ed 06/28/2023 Assessment & Plan (09/18/2024 12:49 PM EDT): Current meds: trelegy, prn duo neb, xopenex inhaler Assessment & Plan (06/19/2024 6:32 AM EST): Current meds: trelegy, prn duo neb, xopenex inhaler Assessment & Plan (04/09/2024 4:48 PM EDT): Stable at this time Assessment & Plan (02/06/2024 9:38 AM EDT): Cont inhalers, and Wearing oxygen Cont w batch and furnace operator Assessment & Plan (12/24/2023 9:19 AM EDT): Wearing oxygen, cont inhalers Fu with pulmonology as directed as well Assessment & Plan (09/27/2023 9:55 AM EDT): Symbicort made breathing worse We will trial again w Trelegy Fu in 3months Assessment & Plan (08/16/2023 10:41 AM EST): Insurance will not approve trelegy without a 30 day trial of symbicort I will order this, the patient was also supplied with #2 samples of trelgy 100 if he would feel too short of breath with the change Lot: [id number], exp 10/10 Fu in 6 weeks Assessment & Plan (07/19/2023 12:44 PM EST): Continue with batch and furnace operator, as well as inhalers, etc Hypoxia 06/28/2023 Assessment & Plan (07/19/2023 12:44 PM EST): O2 Assessment & Plan (06/28/2023 11:57 AM EST): Voice mail left for [facility] in [place] [phone] at 11:50am regarding getting this oxygen script taken care of Acute cough 06/12/2023 Assessment & Plan (06/28/2023 11:58 AM EST): Suspect more related to PND, no failure, will order nasal steroids and anti histamine Assessment & Plan (06/12/2023 1:54 PM EST): No s/s respiratory distress noted Will refill tessalon Bilateral lower extremity edema 06/06/2023 Assessment & Plan (12/22/2024 6:50 AM EDT): Continue diuretics Elevation of legs above heart level as much as possible Recommend wearing PAP Assessment & Plan (09/18/2024 6:41 AM EDT): Continue diuretics Elevation of legs above heart level as much as possible Recommend wearing PAP Assessment & Plan (06/19/2024 6:36 AM EST): Continue diuretics Elevation of legs above heart level as much as possible Recommend wearing PAP Assessment & Plan (12/24/2023 9:25 AM EDT): stable Assessment & Plan (08/16/2023 10:42 AM EST): Improved, clarify dose of lasix pt states cardiology increased to 40mg but no script written Assessment & Plan (07/19/2023 12:46 PM EST): stable Assessment & Plan (06/28/2023 11:56 AM EST): Cont furosemide, kerlex wraps placed on legs, elevated, change daily and prn Assessment & Plan (06/12/2023 1:55 PM EST): Cont lasix at 20mg daily, swelling is better, will check elytes and go from there, possible increase in lasix depending on kidney function Assessment & Plan (06/06/2023 10:21 AM EST): Cardiology discontinued his lasix. I am going to restart at 20mg BID for 3 days then down to once a day, has gained 15 pounds since last visit. ER Cr was WNL, and K was 4.1 on 06/04/23. We will add BID Potassium , and recheck labs on 06/12/23 lab slip given Will stop by office for a weight check on 06/13/23 Bilateral lower leg cellulitis 06/06/2023 Assessment & Plan (06/12/2023 1:56 PM EST): Clinically improved, finish atb and cont lasix Assessment & Plan (06/06/2023 10:22 AM EST): Finish atb Most likely related excess fluid Reviewed [facility] ER notes Warm moist compress , elevated legs Arrhythmia 05/25/2023 Assessment & Plan (02/06/2024 9:38 AM EDT): Continue with cardiology and eliquis and current meds Assessment & Plan (07/19/2023 12:48 PM EST): Has appt with new head machinist next week Cont b preet, anti coagulation, Needs to wear PAP Primary hypertension 05/25/2023 Assessment & Plan (12/22/2024 4:39 PM EDT): Please check blood pressure daily and record [...] ask for help from cardiology about this Assessment & Plan (09/18/2024 12:50 PM EDT): Please check blood pressure daily and record DASH diet Limit caffeine Take medication as directed Contact office if chest pain, pressure, dizziness, shortness of breath, swelling legs Recommend slow position changes Current meds: losartan, metoprolol, spironolactone, torsemide Pt does have SBP less than 90 last 2 visits Will reach out to cardiology to see if any adjustments in meds are needed Assessment & Plan (06/19/2024 6:36 AM EST): Please check blood pressure daily and record DASH diet Limit caffeine Take medication as directed Contact office if chest pain, pressure, dizziness, shortness of breath, swelling legs Recommend slow position changes Current meds: losartan, metoprolol, spironolactone, torsemide Assessment & Plan (02/06/2024 9:39 AM EDT): Will monitor Assessment & Plan (12/24/2023 9:22 AM EDT): At goal, no changes in med dose Assessment & Plan (09/27/2023 9:56 AM EDT): At goal, no changes in med dose Assessment & Plan (08/16/2023 10:41 AM EST): At goal, no changes in med dose Assessment & Plan (07/19/2023 12:45 PM EST): Stable on current meds Assessment & Plan (06/28/2023 11:54 AM EST): Stable at this time, no changes Assessment & Plan (06/06/2023 10:19 AM EST): Stable at this time CATERINA (obstructive sleep apnea) 05/25/2023 Assessment & Plan (12/22/2024 4:34 PM EDT): You have a diagnosis of obstructive sleep [...] use: NA Feels better w use: NA Assessment & Plan (09/18/2024 6:40 AM EDT): You have a diagnosis of obstructive sleep [...] use: NA Feels better w use: NA Assessment & Plan (06/19/2024 10:29 AM EST): You have a diagnosis of obstructive sleep [...] use: NA Feels better w use: NA Assessment & Plan (12/24/2023 9:18 AM EDT): Non compliant with PAP use, cannot tolerate wearing mask d/t drying mouth out Is working w pulmonology Assessment & Plan (09/27/2023 9:54 AM EDT): Non complaint with PAP use just cannot tolerate it and makes him cough more and dries chest out so much Explained to pt why important to wear for heart failure, afib, and copd, will also help his LE edema Needs to call his batch and furnace operator Assessment & Plan (07/19/2023 12:43 PM EST): Non complaint with PAP use Explained to pt why important to wear for heart failure, afib, and copd, will also help his LE edema Needs to call his batch and furnace operator Former smoker 04/13/2023 Status post ablation of incompetent vein using l aser 04/13/2023 Body mass index (BMI) 50.0-59.9, adult Assessment & Plan (02/06/2024 9:42 AM EDT): Will try ozempic with new insurance card Assessment & Plan (08/16/2023 10:43 AM EST): Recommend weight loss Paroxysmal atrial fibrillation 04/12/2023 Assessment & Plan (12/22/2024 6:50 AM EDT): Cardiology Current meds: asa, eliquis, cardizem, metoprolol Recommend working w pulmonology for PAP use as well Assessment & Plan (06/19/2024 6:35 AM EST): Cardiology Current meds: asa, eliquis, cardizem, metoprolol Recommend working w pulmonology for PAP use as well Assessment & Plan (02/06/2024 9:39 AM EDT): Continues to be in afib Assessment & Plan (12/24/2023 9:25 AM EDT): Anti coagulation, and see cardiology notes Assessment & Plan (09/27/2023 9:56 AM EDT): Anti coagulation, and see cardiology notes Assessment & Plan (08/16/2023 10:45 AM EST): Anti coagulation, and see cardiology notes Assessment & Plan (06/28/2023 11:55 AM EST): With review of VS, I will have pt stay at 50mg lopressor BID We discussed his freq hospitalizations and cardiology follows up etc We are going to try at new cardiology Will refer to [facility], as this is also where his batch and furnace operator is as well Cont blood thinners as well Assessment & Plan (06/12/2023 1:53 PM EST): At rest HR 92, does appear possible afib today Cont cardizem, as well as anti coagulation Assessment & Plan (06/06/2023 10:19 AM EST): In afib today, HR at rest was 92 Cont current meds Poor compliance 04/12/2023 Mixed hyperlipidemia 04/12/2023 Assessment & Plan (12/22/2024 6:51 AM EDT): Current med statin Check labs yearly and prn dose changes Assessment & Plan (09/18/2024 6:42 AM EDT): Current med statin Check labs yearly and prn dose changes Assessment & Plan (06/19/2024 6:38 AM EST): Current med statin Check labs yearly and prn Coronary artery disease invo lving [place] coronary artery of [place] heart without angina pectoris 09/21/2022 Assessment & Plan (12/22/2024 6:50 AM EDT): Follow with cardiology Cont b preet, statin, asa Assessment & Plan (09/18/2024 6:40 AM EDT): Follow with cardiology Cont b prete, statin, asa Assessment & Plan (06/19/2024 6:34 AM EST): Follow with cardiology Cont b preet, statin, asa Assessment & Plan (12/24/2023 9:28 AM EDT): Cont b preet, statin, asa CAD S/P percutaneous coronary angioplasty 2022 Fatty liver 09/21/2022 History of tobacco use 09/21/2022 Pulmonary nodule 09/21/2022 Restrictive pattern present on pulmonary functio n testing 09/21/2022 Resolved Problems Problem Noted Date Diagnosed Date Resolved Date Morbid (severe) obesity due to excess calories 06/19/2024 06/19/2024 URI (upper respiratory infection) 06/19/2024 09/18/2024 Assessment & Plan (06/19/2024 10:42 AM EST): Has had covid exposure, at this point will hold on atb Will give steroids and tessalon pearles Fluids, rest, if resp distress go to ER Vitamin deficiency 05/29/2024 Severe persistent asthma, uncomplicated 04/09/2024 12/22/2024 Viral upper respiratory tract infection 04/09/2024 04/09/2024 Chronic atrial fibrillation 07/19/2023 07/19/2023 Assessment & Plan (07/19/2023 12:46 PM EST): Remains in a fib, ,cont b preet, anti coagulation Recommend PAP use Fu with new head machinist next week Pneumonia of both lungs due to infectious organism 06/28/2023 07/19/2023 Assessment & Plan (06/28/2023 11:58 AM EST): Finish atbs Fu in 2 weeks Hyperlipidemia 04/12/2023 12/24/2023 Morbid obesity 03/20/2014 05/06/2024 Old DE (myocardial infarction) 03/20/2014 07/19/2023 Pure hypercholesterolemia 03/20/2014 Encounters Date Type Department Care Team Description 01/05/2025 Telephone [facility] [address] [place] [address] Eusebia Terrell NP 01/02/2025 External Result Encounter [facility] External Department Unsolicited Eusebia Terrell NP 12/22/2024 2:20 PM EDT Office Visit [facility] [address] [place] [phone] Eusebia Terrell NP Primary hypertension (Primary Dx); CATERINA (obstructive sleep apnea); Chronic diastolic (congestive) heart failure (HCC); Coronary artery disease involving [place] coronary artery of [place] heart without angina pectoris ; Paroxysmal atrial fibrillation (HCC); Bilateral lower extremity edema; Class 3 severe obesity due to excess calories with serious comorbidity and body mass index (BMI) of 50.0 to 59.9 in adult ([facility]); Pre-diabetes; Thyroid nodule ; Pulmonary emphysema, unspecified emphysema type (HCC); Moderate persistent asthma without complication (HCC); Hyperlipidemia, unspecified ; Chronic diastolic heart failure (HCC); Atrial fibrillation, unspecified type (HCC) 12/22/2024 Bamboo flowsheet [facility] [address] [place] [address] Eusebia Terrell NP 12/03/2024 Refill [facility] [address] [place] [address] Eusebia Terrell NP Paroxysmal atrial fibrillation (HCC) 12/02/2024 [facility]ill [facility] [address] [place] [address] Eusebia Terrell NP Atrial fibrillation, unspecified type ([facility]) 11/25/2024 Refill [facility] [address] [place] [address] Eusebia Terrell NP from Last 3 Months Family History Medical History Relation Name Comments Diabetes Mother Relation Name Status Comments Father Mother Alive Social History Tobacco Use Types Packs/Day Years [...] Sign Reading Time Taken Comments Blood Pressure 80/50 12/22/2024 2:33 PM EDT Pulse 90 12/22/2024 2:33 PM EDT Temperature 36.4 C (97.6 F) 12/22/2024 2:33 PM EDT Respiratory Rate 20 12/22/2024 2:33 PM EDT Oxygen Saturation 93% 12/22/2024 2:33 PM EDT Inhaled Oxygen Concentration - - Weight 164 kg (361 lb 12.8 oz) 12/22/2024 2:33 P M EDT Height 172.7 cm (5' 8 ) 06/19/2024 9:57 AM EST Body Mass Index 55.01 06/19/2024 9:57 AM EST Plan of Treatment Upcoming Encounters Date Type Department Care Team (Late st Contact Info) Description 02/02/2025 2:40 PM EDT Office Visit [facility] [address] [place] [address] Eusebia Terrell NP [address] [place] [address] Health Maintenance Due Date Last Done Comments CT Colonography 1963 FIT-DNA 1963 FIT 1963 FOBT 1965 Sigmoidoscopy 1963 Colonoscopy 05/28/2027 05/28/2017 Colorectal Cancer Screening 05/28/2027 Influenza Vaccine Discontinued Procedures Procedure Name Priority Date/Time Associated Diagnosis Comments BASIC METABOLIC PANEL Routine 01/02/2025 9:52 AM EDT CBC WITH AUTO DIFFERENTIAL Routine 01/02/2025 9:52 AM EDT from Last 3 Months Results * (ABNORMAL) CBC auto differential (01/02/2025 9:52 AM EDT) WHITE BLOOD CELL COUNT, WBC 9.4 4 - 11 x10E9/L [facility] RED BLOOD CELL COUNT, RBC 5.11 4.1 - 5.7 X10E12/L [facility] HEMOGLOBIN 16.1 13 - 17 g/dL [facility] HEMATOCRIT 48.6 39 - 50 % [facility] MEAN CELL VOLUME, MCV 95 80 - 100 fL [facility] MEAN CELL HEMOGLOBIN, MCH 31.5 27 - 34 pg [facility] MEAN CELL HEMOGLOGIN CONCENTRATION, MCHC 33.2 32 - 36 g/dL [facility] RED CELL DISTRIBUTION WIDTH, RDW 13.6 11.5 - 15 % [facility] PLATELET COUNT 297 150 - 450 X10E9/L [facility] MEAN PLATELET VOLUME, MPV 9.0 7 - 12 fL [facility] % NEUTROPHILS 75.2 % [facility] % LYMPHOCYTES 14.7 % [facility] % MONOCYTES 7.6 % [facility] % EOSINOPHILS 1.5 % [facility] % BASOPHILS 1.0 % [facility] ABSOLUTE NEUTROPHIL 7.0(H) 1.5 - 6.6 10*3/uL [facility] ABSOLUTE LYMPHOCYTE 1.4 1.0 - 3.5 10*3/uL [facility] ABSOLUTE MONOCYTE 0.7 0.0 - 0.9 10*3/uL [facility] ABSOLUTE EOSINOPHIL 0.1 0.0 - 0.4 10*3/uL [facility] ABSOLUTE BASOPHIL 0.1 0.0 - 0.2 10*3/uL [facility] DIFFERENTIAL TYPE AUTOMATED DIFFERENTIAL [facility] Comment: PERFORMED AT [facility] [address],[place] [address] 01/02/2025 9:52 AM EDT 01/02/2025 12:52 PM EDT us Eusebia Terrell LEARNING DISABLED TEACHER LAB BLOOD ORDERABLES Final Resu lt [facility] * (ABNORMAL) Basic metabolic panel (01/02/2025 9:52 AM EDT) [facility] Sodium 135 134 - 146 mmol/L [facility] Potassium, Bld 4.3 3.5 - 5.0 mmol/L [facility] Chloride 97(L) 98 - 109 mmol/L [facility] Carbon Dioxide 27 22 - 32 mmol/L [facility] Anion Gap 11 5 - 15 mmol/L [facility] BUN 20 5 - 27 mg/dL [facility] Creatinine 1.25 0.60 - 1.30 mg/dL [facility] Comment:METHOD TRACEABLE TO IDMS STANDARD Glucose 112(H) 65 - 99 mg/dL [facility] Calcium 9.3 8.5 - 10.5 mg/dL [facility] EGFR 66 >=60 ml/min/1.7 3sq.m [facility] Comment: Reported eGFR is based on the CKD-EPI 2020 equation that does not use a race coefficient. PERFORMED AT [facility] [address],[place] [address] 01/02/2025 9:52 AM EDT 01/02/2025 12:52 PM EDT us Eusebia Terrell LEARNING DISABLED TEACHER LAB BLOOD ORDERABLES Final Resu lt [facility] from Last 3 Months Insurance [facility] [address] Care Teams Makeup Artistry Instructor Relationship Specialty Start Date End Date Mirza Pérez MD [address] [place] [phone] PCP - General Family Medicine 04/17/24 Eusebia Terrell NP [address] [place] [phone] Nurse Practitioner Family Medicine 03/18/23
--- OUTSIDE RECORDS SUMMARY | 2025-01-29 20:31 | XMS_ITS | Encounter Summary ---
Author Organization [facility] tem Address [id number] [address] [place] [address] Care Team Providers Care Pigment Supplier Name Role Phone Eusebia Terrell APRN-PILOT BOAT DECKHAND Primary Care Provider Encounter Details Date Type Department Care Team (Late st Contact Info) Description 08/15/2022 Telephone [facility] Pulmonary/Sleep Medicine [address] [place] [phone] Lisa Cervantes, DO [address] [address] Social History Tobacco Use Types Packs/Day Years [...] encounter Miscellaneous Notes * Telephone Encounter - Tari Edwards - 08/15/2022 9:52 AM EST Pulmonary Nodule.How soon would you like patient to be seen? * Telephone Encounter - Cahsity Nj RN - 08/15/2022 9:52 AM EST Can we get films to PACS for review * Telephone Encounter - Ivanna Lee LPN - 08/15/2022 9:52 AM EST Requested 08/11/22 and again today 08/15/22. * Telephone Encounter - Ivanna Lee LPN - 08/15/2022 9:52 AM EST Images in PACs now. * Telephone Encounter - Chasity Nj RN - 08/15/2022 9:[address] May will ask SE ? One month? What is your first opening in [place]? * Telephone Encounter - Tari Edwards - 08/15/2022 9:52 AM EST October 19 is our first available in [place] right now * Telephone Encounter - Chasity Nj RN - 08/15/2022 9:52 AM EST EK opened up 09/06 for news If he is symptomatic I can add * Telephone Encounter - Lisa Cervantes DO - 08/15/2022 9:52 AM EST Will need complete PFT. If he is willing to drive 09/06 is fine otherwise can try to add on in September. * Telephone Encounter - Chasity Nj RN - 08/15/2022 9:52 AM EST Tried to call pt mailbox full Atri can you try later please * Telephone Encounter - Tari Edwards - 08/15/2022 9:52 AM EST Left message for patient to call the office regarding his appointment and advised that we are putting in an order for a PFT and I am mailing order to patient to make sure he gets PFT prior to appointment * Telephone Encounter - Tari Edwards - 08/15/2022 9:52 AM EST Patient called back and is going to have PFT done at [facility] as soon as he can get it scheduled and will call office to advise and we can see if we can move up his appointment. documented in this encounter Plan of Treatment Upcoming Encounters Date Type Department Care Team (Late st Contact Info) Description 05/07/2025 11:30 AM EST Appointment [facility] - Pulmonary Function [address] [place] [phone] Lisa Cervantes, DO [address] [address] 05/21/2025 9:45 AM EST Office Visit [facility] Pulmonary/Sleep Medicine [address] [place] [phone] Lisa Cervantes, DO [address] [address] documented as of this encounter Visit Diagnoses Not on filedocumented in this encounter Care Teams Pigment Supplier Relationship Specialty Start Date End Date Eusebia Terrell, BEHAVIORAL INTERVENTION SPECIALIST-PILOT BOAT DECKHAND PCP - General Nurse Practitioner 08/20/23 documented as of this encounter
--- OUTSIDE RECORDS SUMMARY | 2025-01-29 20:31 | XMS_ITS | Encounter Summary ---
Author Organization [facility] Address [address] [place] [address] Care Team Providers Care Ophthalmic Lens Inspector Name Role Phone Eusebia Terrell NP Unavailable [phone] Mirza Pérez MD Primary Care Provider [phone] Mirza Pérez MD Primary Care Provider [phone] Unallocated, [facility] Provider Primary Care Provi lindsey Mirza Pérez MD Primary Care Provider [phone] Encounter Details Date Type Department Care Team (Late Contact Info) Description 06/13/2023 Abstract [facility] [address] [place] [phone] Eusebia Terrell, DIGITAL MANAGER [address] [place] [phone] Social History Tobacco Use Types Packs/Day Years [...] Upcoming Encounters Date Type Department Care Team ([facility] Contact Info) Description 02/02/2025 2:40 PM EDT Office Visit [facility] [address] [place] [address] Eusebia Terrell, GENESIS [address] [place] [address] documented as of this encounter Visit Diagnoses Not on filedocumented in this encounter Care Teams Ophthalmic Lens Inspector Relationship Specialty Start Date End Date Mirza Pérez MD [address] [place] [address] PCP - General Family Medicine 06/05/23 08/13/23 Mirza Pérez MD [address] [place] [address] PCP - General Family Medicine 08/14/23 04/08/24 Unallocated, Noms Provider, [address] [place] [address] PCP - General Family Medicine 04/09/24 04/16/24 Mirza Pérez MD [address] [place] [address] PCP - General Family Medicine 04/17/24 Eusebia Terrlel NP [address] [place] [phone] Nurse Practitioner Family Medicine 03/18/23 documented as of this encounter
--- OUTSIDE RECORDS SUMMARY | 2025-01-29 20:31 | XMS_ITS | Encounter Summary ---
Author Organization [facility] eigital [facility] tem Address [id number] [address] [place] [address] Care Team Providers Care Wet Process Assistant Head Miller Name Role Phone Eusebia Terrell PATSY-DIE FILER Primary Care Provider Encounter Details Date Type Department Care Team (Late Contact Info) Description 11/08/2023 Telephone [facility] Pulmonary/Sleep Medicine [address] [address] Nieves Almeida, KEHINDE Social History Tobacco Use Types Packs/Day Years [...] Info) Description 05/07/2025 11:30 AM EST Appointment [facility] - Pulmonary Function [address] [place] [phone] Lisa Cervantes, DO [address] [address] 05/21/2025 9:45 AM EST Office Visit [facility] Pulmonary/Sleep Medicine [address] [place] [address] Lisa Cervantes, DO [address] [address] documented as of this encounter Visit Diagnoses Not on filedocumented in this encounter Care Teams Wet Process Assistant Head Miller Relationship Specialty Start Date End Date Eusebia Terrell, PASSENGER SERVICE MANAGER-DIE FILER PCP - General Nurse Practitioner 08/20/23 documented as of this encounter
--- NOTE | 2025-01-29 20:33 | XR_ITS ---
[facility] [place] [address] Patient Name: ELYSE LEAHY MRN: [id number] date: 1965 Sex: M Assigned Patient Location: ED.MAIN Current Patient Location: ED.MAIN Accession/Order Number: [id number] Exam Date: 01/29/2025 20:54 Report Date: 01/29/2025 21:02 At the request of: CLARY RODARTE Procedure: XR tibia fibula LT 2V 2 views left tibia and fibula plain film HISTORY: Acute pain and swelling of the left lower leg for one week COMPARISON: None ACUTE FINDINGS: None DEGENERATIVE CHANGE: Posterior calcaneal spurring SOFT TISSUE FINDINGS: Soft tissue edema JOINT EFFUSION: None POSTOP CHANGES: None BONE MINERALIZATION: Adequate XR/XR tibia fibula LT 2V IMPRESSION: Diffuse soft tissue edema. Impression dictated by: Jordon Castro M.D. 01/29/2025 9:02 PM Dictation Location: [place] [address] Electronically authenticated by: [id number] Y Date: 01/29/2025 21:02
--- NOTE | 2025-01-29 20:34 | ED.GENADUL1 ---
HPI HPI - General Adult General Chief complaint: Extremity Problem, Nontraumatic Stated complaint: PAIN/BRUISING L LEG Time Seen by Provider: 01/29/25 20:27 Source: patient Mode of arrival: Wheelchair Limitations: no limitations History of Present Illness HPI narrative: 59 year old male presents to the ED for pain, redness to his left anterior lower leg. Onset was within the past 2-3 days. Denies fever, chills, injury. Denies pain to the calf. He has a pcp appointment 02/02/25 for the issue. Denies CP, SOB. Related Data Home Medications ?Medication ?Instructions ?Recorded ?Confirmed atorvastatin 40 mg tablet 40 mg PO Q24H 04/08/23 06/16/23 losartan 50 mg tablet 50 mg PO Q24H 04/08/23 06/16/23 benzonatate 200 mg capsule 200 mg PO .every 8 hours PRN cough 06/16/23 06/16/23 furosemide 20 mg tablet 20 mg PO DAILY 06/16/23 06/16/23 potassium chloride 10 mEq 20 meq PO DAILY 06/16/23 06/16/23 tablet,extended release(part/cryst) (Micah-Denny Levin) Previous Rx's ?Medication ?Instructions ?Recorded apixaban 5 mg tablet (Eliquis) 5 mg PO BID 30 days #60 tabs 04/10/23 diltiazem HCl 240 mg 240 mg PO DAILY #30 caps 04/10/23 capsule,extended release 24 hr levalbuterol tartrate 45 2 inh inhalation Q4H PRN shortness 04/10/23 mcg/actuation aerosol inhaler of breath or wheezing #15 grams hydrocodone 5 mg-acetaminophen 325 1 tab PO Q6H PRN pain #12 tabs 06/04/23 mg tablet azithromycin 250 mg tablet 250 mg PO DAILY 4 days #4 tabs 06/20/23 (Zithromax) cefdinir 300 mg capsule 300 mg PO BID 10 days #20 caps 06/20/23 ipratropium 0.5 mg-albuterol 3 mg 3 ml inhalation Q4H PRN shortness 06/20/23 (2.5 mg base)/3 mL nebulization of breath or wheezing #180 mL soln metoprolol tartrate 100 mg tablet 100 mg PO BID #60 tabs 06/20/23 prednisone 10 mg tablets in a dose 10 mg PO DAILY #39 ea 06/20/23 pack cephalexin 500 mg capsule 500 mg PO Q6H 10 days #40 caps 01/29/25 doxycycline monohydrate 100 mg 100 mg PO BID 10 days #20 caps 01/29/25 capsule oxycodone-acetaminophen 5 mg-325 1 tab PO Q8H PRN pain 4 days #12 01/29/25 mg tablet (Percocet) tabs Allergies Allergy/AdvReac Type Severity Reaction Status Date / Time No Known Drug Allergies Allergy Verified 04/08/23 07:42 Opioid HPI Opioid Management Most Recent Opioid Data: Last Pain Scale 8 Today, 20:59 Last MAR Pain Assessment Today, 20:59 Review of Systems ROS Constitutional Denies: fever or chills Cardiovascular Denies: chest pain or lightheadedness Respiratory Denies: shortness of breath Musculoskeletal Reports: extremity pain Integumentary/Breast Reports: redness, skin pain and skin tenderness Neurological Denies: numbness in extremities, weakness in extremities or dizziness [facility] (Updated 01/29/25 @ 21:39 by Rosa Alan) Morbid obesity ?E66.01 - Morbid (severe) obesity due to excess calories (ICD-10) Edema of both lower legs ?R60.0 - Localized edema (ICD-10) Benign essential hypertension ?I10 - Essential (primary) hypertension (ICD-10) Coronary artery disease ?I25.10 - Atherosclerotic heart disease of [place] coronary artery without angina pectoris (ICD-10) Cellulitis ?L03.90 - Cellulitis, unspecified (ICD-10) Leukocytosis ?D72.829 - Elevated white blood cell count, unspecified (ICD-10) Asthma exacerbation ?J45.901 - Unspecified asthma with (acute) exacerbation (ICD-10) Prediabetes ?R73.03 - Prediabetes (ICD-10) Paroxysmal atrial fibrillation ?I48.0 - Paroxysmal atrial fibrillation (ICD-10) COPD (chronic obstructive pulmonary disease) ?J44.9 - Chronic obstructive pulmonary disease, unspecified (ICD-10) CATERINA (obstructive sleep apnea) ?G47.33 - Obstructive sleep apnea (adult) (pediatric) (ICD-10) Cellulitis ?L03.90 - Cellulitis, unspecified (ICD-10) Surgical History (Updated 04/08/23 @ 13:25 by Zuleyka Merritt) Hx of cholecystectomy ?Z90.49 - Acquired absence of other specified parts of digestive tract (ICD-10) H/O heart artery stent ?Z95.5 - Presence of coronary angioplasty implant and graft (ICD-10) Social History Within the past year, how often did you have a drink containing alcohol: never Score interpretation: A score less than 4 is consistent with normal alcohol consumption. Smoking status: Former smoker Little interest or pleasure in doing things: not at all Feeling down, depressed, or hopeless: not at all Exam Constitutional Vital Signs, click to edit/add: Last Vital Signs Temp 97.9 F 01/29/25 20:27 Pulse 97 H 01/29/25 20:27 Resp 20 01/29/25 20:27 BP 124/81 01/29/25 20:27 Pulse Ox 96 01/29/25 20:27 O2 Del Method Room Air 01/29/25 20:27 Common normals: no apparent distress and oriented x3 General appearance: cooperative HENMT Common normals: moist oral mucous membranes Eye Common normals: conjunctivae normal and no scleral icterus Neck & C-Spine Common normals: supple Chest Chest: symmetrical chest wall rise Respiratory Common normals: normal respiratory effort Effort & inspection: able to speak in complete sentences and symmetric chest movement Cardio Common normals: regular rate and regular rhythm Peripheral pulses: posterior tibial pulses present and dorsalis pedis pulses present Extremity Other: Erythema, tenderness, increased warmth to left anterior lower leg. Chronic vascular discoloration to bilateral lower legs. Mild swelling to BLE. No drainage at this time. Neuro Common normals: oriented x3 and moves all extremities Sensorium/orientation: awake and alert Course Vital Signs Vital signs: Vital Signs Temperature 97.9 F 01/29/25 20:27 Pulse Rate 97 H 01/29/25 20:27 Respiratory Rate 20 01/29/25 20:27 Blood Pressure 124/81 01/29/25 20:27 Pulse Oximetry 96 01/29/25 20:27 Oxygen Delivery Method Room Air 01/29/25 20:27 Temperature 97.9 F 01/29/25 20:27 Pulse Rate 97 H 01/29/25 20:27 Respiratory Rate 20 01/29/25 20:27 Blood Pressure 124/81 01/29/25 20:27 Pulse Oximetry 96 01/29/25 20:27 Oxygen Delivery Method Room Air 01/29/25 20:27 Medical Decision Making MDM Narrative Medical decision making narrative: WBC count was unremarkable. Creatinine was 1.45 which was above his baseline. Pt reports he recently significantly decreased his oral fluid intake due to his swelling which he was advised by a provider at another facility. Guidelines for fluid intake were discussed. He has a pcp appointment next week. He was encouraged to have his BMP repeated next week. OARRS was reviewed. Prescriptions were provided for doxycycline, keflex, and percocet. Return precautions were discussed. Medical Records Medical records reviewed: Yes I reviewed the patient's medical records Lab Data Lab results reviewed: Yes I reviewed the patient's lab results Labs: Lab Results 01/29/25 Range/Units 20:53 WBC 9.0 (4.0-11.0) 10^3/uL RBC 4.99 (4.70-6.10) 10^6/uL Hgb 15.7 (14.0-18.0) g/dL Hct 46.8 (42.0-54.0) % MCV 93.8 (80.0-94.0) fL MCH 31.5 (25.9-34.0) pg MCHC 33.5 (29.9-35.2) g/dL RDW 12.5 (11.0-15.0) % Plt Count 268 (150-450) 10^3/uL MPV 9.9 (9.5-13.5) fL Neut % (Auto) 66.4 (43.0-75.0) % Lymph % (Auto) 19.9 L (20.5-60.0) % Wilson % (Auto) 11.9 (1.7-12.0) % Eos % (Auto) 1.1 (0.9-7.0) % Baso % (Auto) 0.4 (0.2-2.0) % Neut # (Auto) 6.0 (1.4-6.5) 10^3/uL Lymph # (Auto) 1.8 (1.2-3.8) 10^3/uL Wilson # (Auto) 1.1 H (0.3-0.8) 10^3/uL Eos # (Auto) 0.1 (0.0-0.7) 10^3/uL Baso # (Auto) 0.0 (0.0-0.1) 10^3/uL Abs Immat Gran (auto) 0.03 (0.00-0.03) 10^3/uL Imm/Tot Granulo (auto) 0.3 (0.0-0.5) % Sodium 137 (136-145) mmol/L Potassium 3.7 (3.5-5.1) mmol/L Chloride 100 (98-107) mmol/L Carbon Dioxide 31.9 (21.0-32.0) mmol/L Anion Gap 8.8 BUN 23.0 H (7.0-18.0) mg/dL Creatinine 1.45 H (0.70-1.30) mg/dL Est GFR ( Amer) 60 (>=60 mL/min/1.73m^2) Est GFR (Non-Af Amer) 49 L (>=60 mL/min/1.73m^2) BUN/Creatinine Ratio 15.9 Glucose 144 H (74-106) mg/dL Calcium 9.0 (8.5-10.1) mg/dL Imaging Data XR: Attestation: I have reviewed the pertinent imaging results. Radiologist's impression: ITS Impressions Tibia/Fibula X-Ray 01/29/25 20:33 IMPRESSION: Diffuse soft tissue edema. Impression dictated by: Jordon Castro M.D. 01/29/2025 9:02 PM Dictation Location: [place] [address] Electronically authenticated by: [id number] Y Date: 01/29/2025 21:02 Discharge Plan Discharge Chief Complaint: Extremity Problem, Nontraumatic Clinical Impression: Cellulitis, Elevated serum creatinine Patient Disposition: Home, Self-Care Time of Disposition Decision: 21:39 Condition: Good Mode of Transportation: Private Vehicle Prescriptions / Home Meds: New doxycycline monohydrate 100 mg capsule 100 mg PO BID 10 Days Qty: 20 0RF cephalexin 500 mg capsule 500 mg PO Q6H 10 Days Qty: 40 0RF oxycodone-acetaminophen [Percocet] 5-325 mg tablet 1 tab PO Q8H PRN (Reason: pain) 4 Days Qty: 12 0RF No Action atorvastatin 40 mg tablet 40 mg PO Q24H losartan 50 mg tablet 50 mg PO Q24H diltiazem HCl 240 mg capsule,extended release 24hr 240 mg PO DAILY Qty: 30 0RF Eliquis 5 mg Tablet 5 mg PO BID 30 Days Qty: 60 0RF levalbuterol tartrate 45 mcg/actuation HFA aerosol inhaler 2 inh inhalation Q4H PRN (Reason: shortness of breath or wheezing) Qty: 15 0RF hydrocodone-acetaminophen 5-325 mg tablet 1 tab PO Q6H PRN (Reason: pain) Qty: 12 0RF Rx Instructions: DX: L03.119 benzonatate 200 mg capsule 200 mg PO .every 8 hours PRN (Reason: cough) furosemide 20 mg tablet 20 mg PO DAILY potassium chloride [Klor-Con M10] 10 mEq tablet,ER particles/crystals 20 meq PO DAILY ipratropium-albuterol 0.5 mg-3 mg(2.5 mg base)/3 mL Solution For Nebulization 3 ml inhalation Q4H PRN (Reason: shortness of breath or wheezing) Qty: 180 0RF azithromycin [Zithromax] 250 mg tablet 250 mg PO DAILY 4 Days Qty: 4 0RF Rx Instructions: start on day 2 of therapy prednisone 10 mg tablets,dose pack 10 mg PO DAILY Qty: 39 0RF Rx Instructions: 6 PO daily x 3 days, then 4 PO daily x 3 days, then 2 PO daily x 3 days, then 1 PO daily x 3 days cefdinir 300 mg capsule 300 mg PO BID 10 Days Qty: 20 0RF metoprolol tartrate 100 mg tablet 100 mg PO BID Qty: 60 0RF Print Language: Hungarian Additional Instructions: Follow up with your primary care provider as scheduled. Return to the ER for worsening symptoms. Referrals: Eusebia Terrell NP [Primary Care Provider, Family Practice] - 1 week
[2025-01-29] MEDS: OXYCODONE HCL/ACETAMINOPHEN 5MG/325MG 1 TAB PO (20:59)
[2025-01-29 21:10] LABS: Hematocrit 46.8 % (42.0-54.0); Hemoglobin 15.7 g/dL (14.0-18.0); Immature Granulocytes Abs Auto 0.03 10^3/uL (0.00-0.03); Immature Granulocytes Pct Auto 0.3 % (0.0-0.5); Lymphocytes Absolute Auto 1.8 10^3/uL (1.2-3.8); Mean Corpuscular HGB Conc 33.5 g/dL (29.9-35.2); Mean Corpuscular Hemoglobin 31.5 pg (25.9-34.0); Mean Corpuscular Volume 93.8 fL (80.0-94.0); Platelet Count 268 10^3/uL (150-450); Red Blood Count 4.99 10^6/uL (4.70-6.10); White Blood Count 9.0 10^3/uL (4.0-11.0)
[2025-01-29 21:16] LABS: Anion Gap 8.8; Blood Urea Nitrogen 23.0 mg/dL (7.0-18.0); Calcium 9.0 mg/dL (8.5-10.1); Carbon Dioxide 31.9 mmol/L (21.0-32.0); Chloride 100 mmol/L (98-107); Estimated GFR (African America 60 (>=60 mL/min/1.73m^2); Estimated GFR (Non-African Ame 49 (>=60 mL/min/1.73m^2); Glucose 144 mg/dL (74-106); Potassium 3.7 mmol/L (3.5-5.1); Sodium 137 mmol/L (136-145)
[2025-01-29] MEDS: CEPHALEXIN 500 MG CAPSULE PO (21:42)
[2025-01-29] MEDS: DOXYCYCLINE MONOHYDRATE 100 MG CAPSULE PO (21:42)
== END 2025-01-29 21:50 | disposition home or self-care (01) ==
PROVIDERS: Nurse Practitioner Family; Emergency Provider Emergency Medicine; PCP Nurse Practitioner
DX: L03.116 Cellulitis of left lower limb (principal); R94.4 Abnormal results of kidney function studies; M79.662 Pain in left lower leg
CPT/HCPCS: 36415; 73590; 80048; 85025; 99284

== ENCOUNTER 2025-02-09 10:28 | Outpatient (OUT) | payer OTHER, SELFPAY ==
--- OUTSIDE RECORDS SUMMARY | 2025-02-02 14:40 | XMS_ITS | Encounter Summary ---
Author Organization [facility] Address [address] [place] [address] Care Team Providers Care Light Rail Transit Operator Name Role Phone Eusebia Terrell NP Unavailable [phone] Mirza Pérez MD Primary Care Provider [phone] Reason for Visit * Reason Comments Hypertension Encounter Details Date Type Department Care Team ([facility] Contact Info) Description 02/02/2025 2:40 PM EDT Office Visit [facility] [address] [place] [address] Eusebia Terrell, GENESIS [address] [place] [address] Bilateral lower leg cellulitis (Primary Dx); Venous insufficiency of both lower extremities; Primary hypertension ; Paroxysmal atrial fibrillation (HCC); Atrial fibrillation, unspecified type (HCC); Chronic obstructive pulmonary disease, unspecified COPD type (HCC); Thyroid nodule ; Bilateral lower extremity edema; Class 3 severe obesity due to excess calories with serious comorbidity and body mass index (BMI) of 50.0 to 59.9 in adult ([facility]) Social History Tobacco Use Types Packs/Day Years [...] Sign Reading Time Taken Comments Blood Pressure 100/60 02/02/2025 2:44 PM EDT Pulse 61 02/02/2025 2:44 PM EDT Temperature 36.5 C (97.7 F) 02/02/2025 2:44 PM EDT Respiratory Rate 26 02/02/2025 2:44 PM EDT Oxygen Saturation 91% 02/02/2025 2:44 PM EDT Inhaled Oxygen Concentration - - Weight 168 kg (370 lb 6.4 oz) 02/02/2025 2:44 PM EDT Height - - Body Mass Index 56.32 06/19/2024 9:57 AM EST documented in this encounter Patient Instructions * Patient Instructions* Eusebia Terrell NP - 02/02/2025 2:40 PM EDT Finish atb, wrap bilat legs with igor wraps to help with swelling See you back in 3 weeks, call sooner if worsening in condition documented in this encounter Progress Notes * Eusebia Terrell NP - 02/02/2025 3:16 PM EDTAssociated Problem(s): Class 3 severe obesity due to excess calories with serious comorbidity and body mass index (BMI) of 50.0 to 59.9 in adult ([facility]) Discussed with patient their BMI (actual, verses [...] that avenue to help with weight loss * Eusebia Terrell NP - 02/02/2025 3:16 PM EDTAssociated Problem(s): Bilateral lower extremity edema Continue diuretics Elevation of legs above heart level as much as possible Recommend wearing PAP Recommend wearing compression stockings If cannot tolerate stockings, try igor wraps * Eusebia Terrell NP - 02/02/2025 3:15 PM EDTAssociated Problem(s): Arrhythmia Continue with cardiology and eliquis and current meds * Eusebia Terrell NP - 02/02/2025 3:15 PM EDTAssociated Problem(s): Chronic obstructive pulmonary disease, unspecified (HCC) Current meds: trelegy, prn duo neb, xopenex inhaler * Eusebia Terrell NP - 02/02/2025 2:59 PM EDTAssociated Problem(s): Thyroid nodule Hx of thyroid nodule Thyroid labs in 10/10 WNL No supplemental levo Check thyroid US * SHAUN WORLEY - 02/02/2025 2:40 PM EDT Wound on lower left bar-opened within the last 48hrs Redness and swelling * Eusebia Terrell NP - 02/02/2025 2:40 PM EDT Images from the original note were not included. Dmitriy Duong is a 59 y.o. male presents with chief complaint of Hypertension HPI: Here for a recheck: Has been in the ER twice in the last 2 weeks for swelling in legs, and in pain. [facility] X1 and [facility] ER once Given 2 atb at [facility] started on 01/31/25 for 10 days. No fever, chills, drainage: no color Swelling in legs not changed a lot, but less redness. Reports on aldactone 25mg daily and toresmide only once a day No chest pain or pressure, +some dyspnea, more with activity Last time saw cardiology 6 months ago SUBJECTIVE: MEDICATIONS: Current Outpatient Medications Medication Instructions apixaban (ELIQUIS) 5 mg, Oral, 2 times daily aspirin (ASPIRIN LOW DOSE) 81 mg, Oral, Daily atorvastatin (LIPITOR) 40 mg, Oral, Nightly cephalexin (KEFLEX) 500 mg, 4 times daily dapagliflozin (FARXIGA) 10 mg, Oral, Daily dilTIAZem CD (CARDIZEM CD) 240 mg, Oral, Daily doxycycline (MONODOX) 100 mg, 2 times daily Nlpiuvcdumq-Pxthfpgoq-Vngabe (Trelegy Ellipta) 100-62.5-25 MCG/ACT aerosol powder 1 puff, Mouth/Throat, Daily, Rinse mouth after use ipratropium-albuterol (Duo-Neb) 0.5-2.5 mg/3 mL nebulizer solution 3 mL, 4 times daily levalbuterol (Xopenex) 45 MCG/ACT inhaler 2 puffs, Inhalation, Every 6 hours PRN losartan (COZAAR) 50 mg, Oral, Daily metoprolol tartrate (LOPRESSOR) 50 mg, Oral, 2 times daily nitroglycerin (NITROSTAT) 0.4 mg, Sublingual, Every 5 min PRN oxyCODONE-acetaminophen (Percocet) 5-325 MG tablet oxygen (O2) gas Continuous spironolactone (ALDACTONE) 25 mg, Daily torsemide (DEMADEX) 20 mg, Twice a day (morning and mid-day) ALLERGIES: [...] chest tightness. Cardiovascular: Positive for leg swelling. Gastrointestinal: Negative [...] COPD (chronic obstructive pulmonary disease) with emphysema ([facility]) 06/28/2023 Coronary artery disease involving umatilla tribe coronary artery of umatilla tribe heart without angina pectoris 09/21/2022 DENIES H/O BLOOD BORNE DISEASE Hyperlipidemia Hypoxia 06/28/2023 Myocardial infarction ([facility]) CATERINA (obstructive sleep apnea) 05/25/2023 Primary hypertension 05/25/2023 Severe persistent asthma, uncomplicated ([facility]) 04/09/2024 Superficial phlebitis and thrombophlebitis of left lower extremity 08/16/2023 Venous insufficiency of both lower extremities Past Surgical History: Procedure Laterality Date ANGIOPLASTY 2013 CHOLECYSTECTOMY 2016 KNEE SURGERY Left 04/15/2021 SCOPE - [address] GREER ([facility]) family history includes Diabetes in his mother. OBJECTIVE: Visit Vitals BP 100/60 (BP Location: Left arm, Patient Position: Sitting, BP Cuff Size: Large adult) Pulse 61 Temp 97.7 ??F (Temporal) Resp 26 Wt 370 lb 6.4 oz SpO2 91% BMI 56.32 kg/m?? Smoking Status Former BSA 2.84 m?? Physical Exam Vitals and nursing note reviewed. [...] Pulmonary effort is normal. Breath sounds: Wheezing (few faint exp) present. Abdominal: General: Bowel sounds are normal. Palpations: Abdomen is soft. Tenderness: There is no abdominal tenderness. Hernia: No hernia is present. Musculoskeletal: Cervical back: Neck supple. Right lower leg: Edema present. Left lower leg: Edema present. Comments: Edema: bilat LE pretibial to pedal, L>R Skin is makenna, quarter sized open wound left ant lower bar No active drainage Lymphadenopathy: Cervical: No cervical adenopathy. Skin: General: [...] 240 MG 24 hr capsule Primary hypertension Please check blood pressure daily and record DASH diet Limit caffeine Take medication as directed Contact office if chest pain, pressure, dizziness, shortness of breath, swelling legs Recommend slow position changes Current meds: losartan, metoprolol, cardizem, and torsemide Relevant Medications losartan (Cozaar) 50 MG tablet metoprolol tartrate (Lopressor) 50 MG tablet Paroxysmal atrial fibrillation (HCC) Cardiology Current meds: asa, eliquis, cardizem, metoprolol Recommend working w pulmonology for PAP use as well Relevant Medications metoprolol tartrate (Lopressor) 50 MG tablet Bilateral lower extremity edema Continue diuretics Elevation of legs above heart level as much as possible Recommend wearing PAP Recommend wearing compression stockings If cannot tolerate stockings, try igor wraps Bilateral lower leg cellulitis Recent ER visit X2 in the last few weeks Finish atb, elevate legs Fu in 3 weeks for recheck Chronic obstructive pulmonary disease, unspecified (HCC) Current meds: trelegy, prn duo neb, xopenex inhaler Relevant Medications Dxepjfffbjo-Gdauvydsi-Tpsupe (Trelegy Ellipta) 100-62.5-25 MCG/ACT aerosol powder Venous insufficiency of both lower extremities - Primary Stable at this time No changes in meds/doses Thyroid nodule Hx of thyroid nodule Thyroid labs in 10/10 WNL No supplemental levo Check thyroid US Relevant Orders US thyroid Class 3 severe obesity due to excess calories with serious comorbidity and body mass index (BMI) of50.0 to 59.9 in adult ([facility]) Discussed with patient their BMI (actual, verses [...] that avenue to help with weight loss * Eusebia Terrell NP - 02/02/2025 7:13 AM EDTAssociated Problem(s): Bilateral lower leg cellulitis Recent ER visit X2 in the last few weeks Finish atb, elevate legs Fu in 3 weeks for recheck * Eusebia Terrell NP - 02/02/2025 7:13 AM EDTAssociated Problem(s): Paroxysmal atrial fibrillation (HCC) Cardiology Current meds: asa, eliquis, cardizem, metoprolol Recommend working w pulmonology for PAP use as well * Eusebia Terrell NP - 02/02/2025 7:12 AM EDTAssociated Problem(s): Primary hypertension Please check blood pressure daily and record DASH diet Limit caffeine Take medication as directed Contact office if chest pain, pressure, dizziness, shortness of breath, swelling legs Recommend slow position changes Current meds: losartan, metoprolol, cardizem, and torsemide * Eusebia Terrell NP - 02/02/2025 7:12 AM EDTAssociated Problem(s): Venous insufficiency of both lower extremities Stable at this time No changes in meds/doses documented in this encounter Miscellaneous Notes * Addendum Note - Eusebia Terrell NP - 02/02/2025 2:40 PM EDTAddended by: EUSEBIA TERRELL on: 02/02/2025 04:43 PM Modules accepted: Orders documented in this encounter Plan of Treatment Upcoming Encounters Date Type Department Care Team (Late st Contact Info) Description 02/26/2025 2:00 PM EDT [facility] [address] [place] [address] Eusebia Terrell NP [address] [place] [address] Scheduled Orders Name Type Priority Associated Diagnoses Orde r Schedule US thyroid Imaging Routine Thyroid nodule Expected: 02/02/2025 (Approximate), Expires: 02/02/2026 Basic metabolic panel Lab Routine Primary hypertension Bilateral lower extremity edema Expected: 02/02/2025 (Approximate), Expires: 02/02/2026 documented as of this encounter Visit Diagnoses Diagnosis Bilateral lower leg cellulitis- Primary Venous insufficiency of both lower extremities Primary hypertension Unspecified essential hypertension Paroxysmal atrial fibrillation (HCC) Atrial fibrillation Atrial fibrillation, unspecified type (HCC) Chronic obstructive pulmonary disease, unspecified COPD type (HCC) Thyroid nodule Nontoxic uninodular goiter Bilateral lower extremity edema Class 3 severe obesity due to excess calories with serious comorbidity and body mass index (BMI) of 50.0 to 59.9 in adult ([facility]-H[facility]) documented in this encounter Additional Health Concerns Assessment Noted Time PHQ-9 Depression Total Score: 2 06/19/19 25 10:05 AM EST documented as of this encounter Care Teams Light Rail Transit Operator Relationship Specialty Start Date End Date Mirza Pérez MD [address] [place] [address] PCP - General Family Medicine 04/17/24 Eusebia Terrell NP [address] [place] [address] Nurse Practitioner Family Medicine 03/18/23 documented as of this encounter
--- OUTSIDE RECORDS SUMMARY | 2025-02-09 10:30 | XMS_ITS | Encounter Summary ---
Author Organization [facility] [place] [facility] tem Address [id number] [address] [place] [address] Care Team Providers Care Business Support Professional Name Role Phone Eusebia Terrell PATSY-NARCOTICS AND/OR VICE DETECTIVE Primary Care Provider Encounter Details Date Type Department Care Team (Late Contact Info) Description 11/08/2023 Telephone [facility] Pulmonary/Sleep Medicine [address] [address] Nieves Almeida, KEHINDE Social History [...] Info) Description 05/07/2025 11:30 AM EST Appointment [facility] - Pulmonary Function [address] [place] [address] Lisa Cervantes, DO [address] [address] 05/21/2025 9:45 AM EST Office Visit [facility] Pulmonary[facility]Sleep Medicine [address] [facility] [place] [address] Lisa Cervantes, DO [address] [address] documented as of this encounter Visit Diagnoses Not on filedocumented in this encounter Care Teams Business Support Professional Relationship Specialty Start Date End Date Eusebia Terrell, AVIATION ELECTRICAL TECHNICIAN-NARCOTICS AND/OR VICE DETECTIVE PCP - General Nurse Practitioner 08/20/23 documented as of this encounter
--- OUTSIDE RECORDS SUMMARY | 2025-02-09 10:30 | XMS_ITS | Encounter Summary ---
Author Organization [facility] Address [address] [place] [address] [place] [id number] Phone Care Team Providers Care Scientific Investigator Name Role Phone Eusebia Terrell APRN-RETAIL LEADER Primary Care Provider Justyn Covington MD Unavailable [phone] Encounter Details Date Type Department Care Team (Late st Contact Info) Description 01/27/2019 Orders Only [facility] [address] [place] [address] Conversion, Onbase Social History Tobacco Use Types [...] Description 02/20/2025 10:00 AM EDT Office Visit [place] [id number] [facility] [address] [place] [address] Sonia Christian MD [address] [facility] [address], [address] [place] [address] Scheduled Orders Name Type Priority Associated Diagnoses Orde r Schedule OUTSIDE LAB SCAN Lab Ordered: 01/27/2019 documented as of this encounter Visit Diagnoses Not on filedocumented in this encounter Care Teams Scientific Investigator Relationship Specialty Start Date End Date Eusebia Terrell APRN-RETAIL LEADER [address] [place] [address] PCP - General 11/04/19 Justyn Covington MD [address] [facility], [address] [id number] Javascript Application Developer Cardiology 07/05/23 documented as of this encounter
--- OUTSIDE RECORDS SUMMARY | 2025-02-09 10:30 | XMS_ITS | Encounter Summary ---
Author Organization [facility] Address [address] [place] [address] Care Team Providers Care Immigration Investigator Name Role Phone Eusebia Terrell NP Unavailable [phone] Mirza Pérez MD Primary Care Provider [phone] Unallocated, [facility] Provider Primary Care Provi lindsey Mirza Pérez MD Primary Care Provider [phone] Encounter Details Date Type Department Care Team (Late Contact Info) Description 01/23/2024 Orders Only [facility] [address] [place] [address] Eusebia Terrell, PEDIATRIC PSYCHOLOGIST [address] [place] [address] Social History Tobacco Use Types Packs/Day Years [...] Encounters Date Type Department Care Team ([facility] Contact Info) Description 02/26/2025 2:00 PM EDT Office Visit [facility] [address] [place] [address] Eusebia Terrell NP [address] [place] [address] documented as of this encounter Procedures Procedure Name Priority Date/Time Associated Diagnosis Comments SCANNED LABS Routine 01/23/2024 8:37 AM EDT documented in this encounter Results * SCANNED LABS (01/23/2024 8:37 AM EDT) Eusebia Terrell PEDIATRIC PSYCHOLOGIST LAB CHG PERFORMABLES Final Resu lt documented in this encounter Visit Diagnoses Not on filedocumented in this encounter Care Teams Immigration Investigator Relationship Specialty Start Date End Date Mirza Pérez MD [address] [place] [address] PCP - General Family Medicine 08/14/23 04/08/24 Unallocated, Coco Gomes MD [address] [place] [address] PCP - General Family Medicine 04/09/24 04/16/24 Mirza Pérez MD [address] [place] [address] PCP - General Family Medicine 04/17/24 Eusebia Terrell NP [address] [place] [address] Nurse Practitioner Family Medicine 03/18/23 documented as of this encounter
--- OUTSIDE RECORDS SUMMARY | 2025-02-09 10:30 | XMS_ITS | Encounter Summary ---
Author Organization [facility] Address [id number] [address] [place] [address] Care Team Providers Care River Rafting Guide Name Role Phone SocorrofernandomaeganEusebia elizalde David GARNER-GEOSPATIAL INFORMATION SCIENTIST Primary Care Provider Reason for Visit * Reason Comments Med Refill Encounter Details Date Type Department Care Team (Late st Contact Info) Description 12/28/2021 Refill [facility] General Surgery-Bariatric [address] [facility] [address] [place] [address] [place] [address] [place] [address], [address] [place] [address] Social History Tobacco Use Types [...] Info) Description 05/07/2025 11:30 AM EST Appointment [facility] - Pulmonary Function [address] [place] [address] Lisa Cervantes DO [address] [facility] [address] [place] [address] 05/21/2025 9:45 AM EST Office Visit [facility] Pulmonary/Sleep Medicine [address] [facility] [place] [address] Lisa Cervantes, DO [address] [address] documented as of this encounter Visit Diagnoses Not on filedocumented in this encounter Care Teams River Rafting Guide Relationship Specialty Start Date End Date Eusebia Terrell, PECAN PICKER-GEOSPATIAL INFORMATION SCIENTIST PCP - General Nurse Practitioner 08/20/23 documented as of this encounter
--- OUTSIDE RECORDS SUMMARY | 2025-02-09 10:30 | XMS_ITS | Clinical Summary ---
Author Organization [facility] Address [address] [place] [address] Phone Care Team Providers Care Kidney Trimmer Name Role Phone Eusebia Terrell APRN-POTATO SORTER Primary Care Provider Justyn Covington MD Unavailable [...] Diagnosed Date Atypical chest pain 10/15/2024 [place] (myocardial infarction) 04/13/2023 Former smoker 04/13/2023 Status [...] Type Department Care Team Description 12/03/2024 Refill [facility] [address] [address] Chrissy Johnston, RN 2-vessel coronary artery disease; Essential hypertension 11/14/2024 Refill [facility] [address] [place] [address] Cornelia Dubois LPN Essential (primary) [...] Description 02/20/2025 10:00 AM EDT Office Visit [facility] [address] [address] Sonia Christian MD 703 [facility] [address], [address] [place] [address] Health Maintenance Due Date Last Done Comments [...] on file Type:Not on file Address: [address] [facility] MEDICAID Member Subscriber Plan / Payer (Ef fective 2023-Present) Name:Dmitriy Duong Relation to Subscriber:Self Name:Dmitriy Duong Payer ID:[id number] (NAIC) Group ID:Not on file Type:Not on file Address: [address] Care Teams Kidney Trimmer Relationship Specialty Start Date End Date Eusebia Terrell, [place] [employer]ICE OFFICER-POTATO SORTER [address] [place] [address] PCP - General 11/04/19 Justyn Covington MD [address] [facility] Medical Office [facility], [address] [address] Spotlight Operator Cardiology 07/05/23
--- OUTSIDE RECORDS SUMMARY | 2025-02-09 10:30 | XMS_ITS | Encounter Summary ---
Author Organization [facility] Address [address] [place] [address] Care Team Providers Care Centerless Grinder Tender Name Role Phone Eusebia Terrell NP Unavailable [phone] Mirza Pérez MD Primary Care Provider [phone] Unallocated, [facility] Provider Primary Care Provi lindsey Mirza Pérez MD Primary Care Provider [phone] Reason for Visit * Reason Comments Med Refill Encounter Details Date Type Department Care Team (Late Contact Info) Description 12/05/2023 Refill [facility] [address] [place] [address] Eusebia Terrell, BODY DESIGN CHECKER [address] [place] [address] Primary hypertension ; Paroxysmal atrial fibrillation (HCC) [...] Department Care Team (Late Contact Info) Description 02/26/2025 2:00 PM EDT Office Visit [facility] [address] [place] [address] Eusebia Terrell NP [address] [place] [address] documented as of this encounter Visit Diagnoses Diagnosis Primary hypertension Unspecified essential hypertension Paroxysmal atrial fibrillation (HCC) Atrial fibrillation documented in this encounter Care Teams Centerless Grinder Tender Relationship Specialty Start Date End Date Mirza Pérez MD [address] [place] [address] PCP - General Family Medicine 08/14/23 04/08/24 Unallocated, Coco Gomes MD [address] [facility] [place] [address] PCP - General Family Medicine 04/09/24 04/16/24 Mirza Pérez MD [address] [place] [address] PCP - General Family Medicine 04/17/24 Eusebia Terrell NP [address] [place] [address] Nurse Practitioner Family Medicine 03/18/23 documented as of this encounter
--- OUTSIDE RECORDS SUMMARY | 2025-02-09 10:30 | XMS_ITS | Encounter Summary ---
Author Organization [facility] Address [address] [place] [address] Care Team Providers Care It Security Engineer Name Role Phone Eusebia Terrell NP Unavailable [phone] Mirza Pérez MD Primary Care Provider [phone] Encounter Details Date Type Department Care Team ([facility] Contact Info) Description 02/02/2025 Orders Only [facility] [address] [place] [address] Social History Tobacco Use Types Packs/Day Years [...] Upcoming Encounters Date Type Department Care Team ([facility] Contact Info) Description 02/26/2025 2:00 PM EDT Office Visit [facility] [address] [place] [address] Eusebia Terrell NP [address] [place] [address] documented as of this encounter Procedures Procedure Name Priority Date/Time Associated Diagnosis Comments XR TIBIA FIBULA 2 VIEWS LEFT Routine 02/02/2025 1:33 PM EDT documented in this encounter Results * XR tibia fibula 2 views left (02/02/2025 1:33 PM EDT) Anatomical Region Laterality Modality Lower Extremities, Lower Leg Left Rad iographic Imaging [facility] IMG XR PROCEDURES Final Result documented in this encounter Visit Diagnoses Not on filedocumented in this encounter Additional Health Concerns Assessment Noted Time PHQ-9 Depression Total Score: 2 06/19/19 25 10:05 AM EST documented as of this encounter Care Teams It Security Engineer Relationship Specialty Start Date End Date Mirza Pérez MD [address] [place] [address] PCP - General Family Medicine 04/17/24 Eusebia Terrell NP [address] [place] [address] Nurse Practitioner Family Medicine 03/18/23 documented as of this encounter
--- OUTSIDE RECORDS SUMMARY | 2025-02-09 10:30 | XMS_ITS | Encounter Summary ---
Author Organization [facility] Address [address] [place] [address] Care Team Providers Care Structural Steel Trades Worker Name Role Phone Eusebia Terrell NP Unavailable [phone] Mirza Pérez MD Primary Care Provider [phone] Encounter Details Date Type Department Care Team ([facility] Contact Info) Description 02/02/2025 Abstract [facility] [address] [place] [address] Eusebia Terrell, GENESIS [address] [place] [address] Social History Tobacco Use Types Packs/Day Years [...] Upcoming Encounters Date Type Department Care Team ([facility] Contact Info) Description 02/26/2025 2:00 PM EDT Office Visit [facility] [address] [place] [address] Eusebia Terrell, GENESIS [address] [place] [address] documented as of this encounter Visit Diagnoses Not on filedocumented in this encounter Additional Health Concerns Assessment Noted Time PHQ-9 Depression Total Score: 2 06/19/19 25 10:05 AM EST documented as of this encounter Care Teams Structural Steel Trades Worker Relationship Specialty Start Date End Date Mirza Pérez MD [address] [place] [address] PCP - General Family Medicine 04/17/24 Eusebia Terrell NP [address] [place] [address] Nurse Practitioner Family Medicine 03/18/23 documented as of this encounter
--- OUTSIDE RECORDS SUMMARY | 2025-02-09 10:30 | XMS_ITS | Clinical Summary ---
Author Organization [employer] tem Address [id number] [address] [place] [address] Care Team Providers Care Storeroom Keeper Name Role Phone Eusebia Terrell APRN-MANAGER HRIS Primary Care Provider Allergies Active Allergy Reactions [...] ons:Chronic obstructive pulmonary disease, unspecified COPD type ([facility]) INHALE 3 ML BY NEBULIZATION 4 [...] heart failure (CMS-HCC),Rojas ry artery disease involving venetie ira coronary artery of venetie ira heart without angina pectoris,Persist ent atrial fibrillation (CMS-HCC) TAKE 1 TABLET (10 MG TOTAL) BY MOUTH IN THE MORNING 30 tablet 11 4 Active torsemide (DEMADEX) 20 mg tabletIndication s:Chronic diastolic heart failure (CMS-HCC),Rojas ry artery disease involving venetie ira coronary artery of venetie ira heart without angina pectoris,Persist ent atrial fibrillation [...] EDT - 01/25/2025 1:57 AM EDT Emergency [facility] - Emergency [address] [place] [phone] Berry Mejia DO Lower extremity edema (Primary Dx) Discharge Disposition: Home 01/24/2025 Travel 01/02/2025 Orders Only [facility] Pulmonary[facility]Sleep [facility] [address] [facility] [facility] [address] [place] [address] Lisa Cervantes, DO Chronic obstructive pulmonary disease, unspecified COPD type (CMS-HCC) (Primary Dx) 01/02/2025 Travel 01/02/2025 Telephone [facility] Pul[facility]/Sleep Medicine [address] [place] [address] Simin Das RMA from Last 3 Months [...] Info) Description 05/07/2025 11:30 AM EST Appointment [facility] - Pulmonary Function [address] [place] [address] Lisa Cervantes, DO [address] [address] 05/21/2025 9:45 AM EST Office Visit [facility] Pulmonary/Sleep Medicine [address] [place] [place] [address] Lisa Cervantes, DO [address] [address] Health Maintenance Due Date Last Done Comments [...] Tube Auto Resulted 01/25/2025 2:02 AM EDT [facility] Blood Venous blood / Unknown 01/25/2025 12:33 AM EDT 01/25/2025 12:39 AM EDT us Berry Mejia DO LAB BLOOD ORDERABLES Final R esult [facility] [address] [place] [address], [place] * CBC auto differential (01/25/2025 12:33 AM EDT) Only the most recent of2 resultswithin the time period is included. WBC 8.7 4 - 11 x10E9/L 01/25/2025 12:48 AM EDT [facility] RBC Count 5.07 4.1 - 5.7 X10E12/L 01/25/2025 12:48 AM EDT [facility] Hemoglobin 16.0 13 - 17 g/dL 01/25/2025 12:48 AM EDT [facility] Hematocrit 47.0 39 - 50 % 01/25/2025 12:48 AM EDT [facility] MCV 93 80 - 100 fL 01/25/2025 12:48 AM EDT [facility] MCH 31.6 27 - 34 pg 01/25/2025 12:48 AM EDT [facility] MCHC 34.1 32 - 36 g/dL 01/25/2025 12:48 AM EDT [facility] RDW 13.3 11.5 - 15 % 01/25/2025 12:48 AM EDT [facility] Platelet Count 298 150 - 450 X10E9/L 01/25/2025 12:48 AM EDT [facility] MPV 8.4 7 - 12 fL 01/25/2025 12:48 AM EDT [facility] Neutrophils % 72.9 % 01/25/2025 12:48 AM EDT [facility] Lymphocytes % 15.3 % 01/25/2025 12:48 AM EDT [facility] Monocytes % 9.7 % 01/25/2025 12:48 AM EDT [facility] Eosinophils % 1.7 % 01/25/2025 12:48 AM EDT [facility] Basophils % 0.4 % 01/25/2025 12:48 AM EDT [facility] Neutrophils Absolute (A) 6.3 1.5 - 6.6 10*3/uL 01/25/2025 12:48 AM EDT [facility] Lymphocytes Absolute 1.3 1.0 - 3.5 10*3/uL 01/25/2025 12:48 AM EDT [facility] Monocytes Absolute 0.8 0.0 - 0.9 10*3/uL 01/25/2025 12:48 AM EDT [facility] Eosinophils Absolute 0.1 0.0 - 0.4 10*3/uL 01/25/2025 12:48 AM EDT [facility] Basophils Absolute 0.0 0.0 - 0.2 10*3/uL 01/25/2025 12:48 AM EDT [facility] Differential Type AUTOMATED DIFFERENTIAL 01/25/2025 12:48 AM EDT [facility] Blood Venous blood / Unknown Venipuncture / Unknown 01/25/2025 12:33 AM EDT 01/25/2025 12:39 AM EDT us Berry Mejia DO LAB BLOOD ORDERABLES Final R esult [address] [place] [address], [place] * B-type natriuretic peptide (01/25/2025 12:33 AM EDT) Pathologist [facility] BNP 50 <=100 pg/mL 01/25/2025 1:08 AM EDT [facility] Blood Venous blood / Unknown Venipuncture / Unknown 01/25/2025 12:33 AM EDT 01/25/2025 12:39 AM EDT us Berry Mejia DO LAB BLOOD ORDERABLES Final R esult [address] [place] [address], [place] * (ABNORMAL) Basic Metabolic Panel (01/25/2025 12:33 AM EDT) Only the most recent of2 resultswithin the time period is included. Pathologist [facility] SODIUM 137 134 - 146 mmol/L 01/25/2025 12:58 AM EDT [facility] POTASSIUM 3.9 3.5 - 5.0 mmol/L 01/25/2025 12:58 AM EDT [facility] CHLORIDE 99 98 - 109 mmol/L 01/25/2025 12:58 AM EDT [facility] CARBON DIOXIDE 29 22 - 32 mmol/L 01/25/2025 12:58 AM EDT [facility] ANION GAP 9 5 - 15 mmol/L 01/25/2025 12:58 AM EDT [facility] BLOOD UREA NITROGEN 26 5 - 27 mg/dL 01/25/2025 12:58 AM EDT [facility] CREATININE 1.31(H) 0.70 - 1.20 mg/dL 01/25/2025 12:58 AM EDT [facility] Comment:METHOD TRACEABLE TO IDMS STANDARD GLUCOSE 156(H) 65 - 99 mg/dL 01/25/2025 12:58 AM EDT [facility] CALCIUM 9.3 8.5 - 10.5 mg/dL 01/25/2025 12:58 AM EDT [facility] EGFR Non-Race Dependent 62 >=60 ml/min/1.7 3sq.m 01/25/2025 12:58 AM EDT [facility] Comment: eGFR not reported due to non-numeric value for Creatinine. Reported eGFR is based on the CKD-EPI 2020 equation that does not use a race coefficient. Blood Venous blood / Unknown Venipuncture / Unknown 01/25/2025 12:33 AM EDT 01/25/2025 12:39 AM EDT us Berry Mejia DO LAB BLOOD ORDERABLES Final R esult [facility] [address] [place] [address], from Last 3 Months Insurance [employer] [facility] WORKERS COMPENSATION - GENERIC PLAN Care Teams Storeroom Keeper Relationship Specialty Start Date End Date Eusebia Terrell, INSECTICIDE MIXER-MANAGER HRIS PCP - General Nurse Practitioner 08/20/23
--- OUTSIDE RECORDS SUMMARY | 2025-02-09 10:30 | XMS_ITS | Encounter Summary ---
Author Organization [employer] [facility] Address [id number] [address] [place] [address] Care Team Providers Care Melter Helper Name Role Phone Eusebia Terrell PATSY-PACKAGE LINE RELIEF OPERATOR Primary Care Provider Encounter Details Date Type Department Care Team (Late st Contact Info) Description 08/11/2022 Orders Only [facility] Pulmonary/Sleep Medicine [address] [place] [phone] Ref Prov, [place] [address] Social History Tobacco Use Types Packs/Day Years [...] Info) Description 05/07/2025 11:30 AM EST Appointment [facility] - Pulmonary Function [address] [place] [address] Lisa Cervantes, DO [address] [address] 05/21/2025 9:45 AM EST Office Visit [facility]monary/Sleep Medicine [address] [place] [phone] Lisa Cervantes, DO [address] [address] documented as of this encounter Procedures Procedure Name Priority Date/Time Associated Diagnosis Comments PULMONARY FUNCTION TEST Routine 08/11/2022 11:41 AM EST documented in this encounter Visit Diagnoses Not on filedocumented in this encounter Care Teams Melter Helper Relationship Specialty Start Date End Date Eusebia Terrell, RETAIL CLERK-PACKAGE LINE RELIEF OPERATOR PCP - General Nurse Practitioner 08/20/23 documented as of this encounter
--- OUTSIDE RECORDS SUMMARY | 2025-02-09 10:30 | XMS_ITS | Encounter Summary ---
Author Organization [facility] Address [address] [place] [address] Care Team Providers Care Fire Fighter [employer] Name Role Phone Eusebia Terrell NP Unavailable [phone] Mirza Pérez MD Primary Care Provider [phone] Unallocated, [facility] Provider Primary Care Provi lindsey Mirza Pérez MD Primary Care Provider [phone] Encounter Details Date Type Department Care Team (Late Contact Info) Description 01/21/2024 Abstract [facility] [address] [place] [address] Eusebia Terrell, LAST CHALKER [address] [place] [address] Social History Tobacco Use Types Packs/Day Years [...] Upcoming Encounters Date Type Department Care Team ([facility] Contact Info) Description 02/26/2025 2:00 PM EDT Office Visit [facility] [address] [place] [address] Eusebia Terrell NP [address] [place] [address] documented as of this encounter Visit Diagnoses Not on filedocumented in this encounter Care Teams Fire Fighter [employer] Relationship Specialty Start Date End Date Mirza Pérez MD [address] [place] [address] PCP - General Family Medicine 08/14/23 04/08/24 Unallocated, [facility] Provider, [address] [place] [address] PCP - General Family Medicine 04/09/24 04/16/24 Mirza Pérez MD [address] [place] [address] PCP - General Family Medicine 04/17/24 Eusebia Terrell NP [address] [place] [address] Nurse Practitioner Family Medicine 03/18/23 documented as of this encounter
--- OUTSIDE RECORDS SUMMARY | 2025-02-09 10:30 | XMS_ITS | Encounter Summary ---
Author Organization [employer] tem Address [id number] [address] [place] [address] Care Team Providers Care Housing Management Officer Name Role Phone Eusebia Terrell APRN-SUTURE POLISHER Primary Care Provider Encounter Details Date Type Department Care Team (Late st Contact Info) Description 08/15/2022 Telephone [facility] Pulmonary/Sleep Medicine [address] [place] [address] Lisa Cervantes, DO [address] [address] Social History Tobacco Use Types Packs/Day Years [...] to be seen? * Telephone Encounter - Chasity Nj RN [...] month? What is your first opening in [place]? * Telephone Encounter - Tari Edwards - 08/15/2022 9:52 AM EST October 19 is our first available in [place] right now * Telephone Encounter - Chasity [...] EST Tried to call pt mailbox full Tari can you try later please * Telephone [...] is going to have PFT done at [facility] as soon as he can get it scheduled and will call office to advise and we can see if we can move up his appointment. documented in this encounter Plan of Treatment Upcoming Encounters Date Type Department Care Team (Late st Contact Info) Description 05/07/2025 11:30 AM EST Appointment [facility] - Pulmonary Function [address] [place] [phone] Lisa Cervantes, DO [address] [address] 05/21/2025 9:45 AM EST Office Visit [facility] Pulmonary/Sleep Medicine [address] [place] [address] Lisa Cervantes, DO [address] [address] documented as of this encounter Visit Diagnoses Not on filedocumented in this encounter Care Teams Housing Management Officer Relationship Specialty Start Date End Date Eusebia Terrell, ROLLER DIE CUTTING MACHINE OPERATOR-SUTURE POLISHER PCP - General Nurse Practitioner 08/20/23 documented as of this encounter
--- OUTSIDE RECORDS SUMMARY | 2025-02-09 10:31 | XMS_ITS | Encounter Summary ---
Author Organization [facility] Address [address] [place] [address] Care Team Providers Care Vice President Quality Assurance Name Role Phone Eusebia Terrell NP Unavailable [phone] Mirza Pérez MD Primary Care Provider [phone] Mirza Pérez MD Primary Care Provider [phone] Unallocated, [facility] Provider Primary Care Provi lindsey Mirza Pérez MD Primary Care Provider [phone] Encounter Details Date Type Department Care Team (Late Contact Info) Description 06/13/2023 Abstract [facility] [address] [place] [address] Eusebia Terrell, MAKEUP SALES CONSULTANT [address] [place] [address] Social History Tobacco Use Types Packs/Day Years [...] Upcoming Encounters Date Type Department Care Team ([facility] Contact Info) Description 02/26/2025 2:00 PM EDT Office Visit [facility] [address] [place] [address] Eusebia Terrell, GENESIS [address] [place] [address] documented as of this encounter Visit Diagnoses Not on filedocumented in this encounter Care Teams Vice President Quality Assurance Relationship Specialty Start Date End Date Mirza Pérez MD [address] [place] [address] PCP - General Family Medicine 06/05/23 08/13/23 Mirza Pérez MD [address] [place] [address] PCP - General Family Medicine 08/14/23 04/08/24 Unallocated, [facility] Provider, [address] [place] [address] PCP - General Family Medicine 04/09/24 04/16/24 Mirza Pérez MD [address] [place] [address] PCP - General Family Medicine 04/17/24 Eusebia Terrell NP [address] [place] [address] Nurse Practitioner Family Medicine 03/18/23 documented as of this encounter
--- OUTSIDE RECORDS SUMMARY | 2025-02-09 10:31 | XMS_ITS | Encounter Summary ---
Author Organization [facility] Address [address] [place] [id number] Phone Care Team Providers Care Integrated Logistics Programs Director Name Role Phone Eusebia Terrell Primary Care Provider Justyn Covington MD Unavailable [phone] Encounter Details Date Type Department Care Team (Late st Contact Info) Description 01/11/2022 Orders Only [facility] [address] [place] [address] Conversion, Onbase Social History Tobacco Use Types [...] Description 02/20/2025 10:00 AM EDT Office Visit [address] [place] [address] Sonia Christian MD [address] [facility] [address], [address] [place] [address] Scheduled Orders Name Type Priority Associated Diagnoses Orde r Schedule OUTSIDE LAB SCAN Lab Ordered: 01/11/2022 documented as of this encounter Visit Diagnoses Not on filedocumented in this encounter Care Teams Integrated Logistics Programs Director Relationship Specialty Start Date End Date Eusebia Terrell, NURSE LIAISON-FLOOR COVERER [address] [place] [address] PCP - General 11/04/19 Justyn Covington MD [address] [facility] [address], [address] [place] [id number] [place] In Cardiology 07/05/23 documented as of this encounter
--- OUTSIDE RECORDS SUMMARY | 2025-02-09 10:31 | XMS_ITS | Encounter Summary ---
Author Organization [employer] tem Address [facility] [id number] [address] [place] [address] Care Team Providers Care Rug Cutter Name Role Phone Eusebia Terrell APRNNATALIA Primary Care Provider Encounter Details Date Type Department Care Team (Late st Contact Info) Description 04/30/2023 Telephone [facility] Pulmonary/Sleep Medicine [address] [address] Nieves Almeida RN Social History [...] with several pauses and report of SOB. Shell Freezing Machine Operator asked Matilde if oxygen was ordered. Was told no, Eusebia Villafana has not seen results yet d/tnot in office today. Eusebia returning tomorrow and will be given results then and will discuss ordering oxygen. Shell Freezing Machine Operator informed Matilde, can see patient in our [place] office on 05-03-23 at 8:[address] Cervantes. Matilde agreeable and will contact patient. documented in this encounter Plan of Treatment Upcoming Encounters Date Type Department Care Team (Late st Contact Info) Description 05/07/2025 11:30 AM EST Appointment [facility] - Pulmonary Function [address] [place] [address] Lisa Cervantes, DO [address] [address] 05/21/2025 9:45 AM EST Office Visit [facility] Pulmonary/Sleep Medicine [facility] [facility] [place] [place] [address] Lisa Cervantes, DO [address] [address] documented as of this encounter Visit Diagnoses Not on filedocumented in this encounter Care Teams Rug Cutter Relationship Specialty Start Date End Date Eusebia Terrell, BLADE BONER-SITE HEAD PCP - General Nurse Practitioner 08/20/23 documented as of this encounter
--- OUTSIDE RECORDS SUMMARY | 2025-02-09 10:31 | XMS_ITS | Encounter Summary ---
Author Organization [employer] [facility] tem Address [facility][id number] [address] [place] [address] Care Team Providers Care Balance Wheel Screw Hole Tapper Name Role Phone SocorroEusebia rodriguez David WATSONN-PRINT GRAPHIC DESIGNER Primary Care Provider Encounter Details Date Type Department Care Team (Late st Contact Info) Description 09/21/2022 Orders Only [facility] Pulmonary/Sleep Medicine [address] [place] [phone] Ref Prov, [place] [address] Social History Tobacco Use Types Packs/Day Years [...] Info) Description 05/07/2025 11:30 AM EST Appointment [facility] - Pulmonary Function [address] [place] [address] Lisa Cervantes, DO [address] [address] 05/21/2025 9:45 AM EST [facility] [address] [place] [phone] Lisa Cervantes, DO [address] [address] documented as of this encounter Procedures Procedure Name Priority Date/Time Associated Diagnosis Comments SPLIT NIGHT SLEEP STUDY Routine 09/21/2022 2:28 PM EDT documented in this encounter Visit Diagnoses Not on filedocumented in this encounter Care Teams Balance Wheel Screw Hole Tapper Relationship Specialty Start Date End Date Eusebia Terrell, 3D ANIMATOR-PRINT GRAPHIC DESIGNER PCP - General Nurse Practitioner 08/20/23 documented as of this encounter
--- OUTSIDE RECORDS SUMMARY | 2025-02-09 10:31 | XMS_ITS | Encounter Summary ---
Author Organization [facility] [employer] [facility] tem Address [facility]-[id number] [address] [place] [address] Care Team Providers Care Prestressed Concrete Laborer Name Role Phone SocorroEusebia rodriguez David GARNER-NEONATAL ICU COORDINATOR Primary Care Provider Encounter Details Date Type Department Care Team (Late st Contact Info) Description 09/21/2023 Telephone [facility] Cardiology [address] [place] [address] Yolanda Willis CNA Social History Tobacco Use [...] Info) Description 05/07/2025 11:30 AM EST Appointment [facility] - Pulmonary Function [address] [place] [phone] Lisa Cervantes, DO [address] [address] 05/21/2025 9:45 AM EST Office Visit [facility]Sleep [facility] [address] [place] [address] Lisa Cervantes, DO [address] [address] documented as of this encounter Visit Diagnoses Not on filedocumented in this encounter Care Teams Prestressed Concrete Laborer Relationship Specialty Start Date End Date Eusebia Terrell, SPLICER APPRENTICE-NEONATAL ICU COORDINATOR PCP - General Nurse Practitioner 08/20/23 documented as of this encounter
--- OUTSIDE RECORDS SUMMARY | 2025-02-09 10:31 | XMS_ITS | Encounter Summary ---
Author Organization [facility] Address [address] [place] [address] Phone Care Team Providers Care Blending Machine Operator Name Role Phone Eusebia Terrell APRN-WATER USE INSPECTOR Primary Care Provider Justyn Covington MD Unavailable [phone] Encounter Details Date Type Department Care Team (Late st Contact Info) Description 05/09/2019 Orders Only [facility] [address] [place] [address] Conversion, Onbase Social History Tobacco Use Types [...] Description 02/20/2025 10:00 AM EDT Office Visit [place] [address] [facility] [address] [place] [address] Sonia Christian MD 703 [facility] 2, [address] [place] [address] Scheduled Orders Name Type Priority Associated Diagnoses Orde r Schedule OUTSIDE LAB SCAN Lab Ordered: 05/09/2019 documented as of this encounter Visit Diagnoses Not on filedocumented in this encounter Care Teams Blending Machine Operator Relationship Specialty Start Date End Date Eusebia Terrell APRN-WATER USE INSPECTOR [address] [place] [address] PCP - General 11/04/19 Justyn Covington MD [address] [facility], [address] [id number] Redeye Gunner Cardiology 07/05/23 documented as of this encounter
--- OUTSIDE RECORDS SUMMARY | 2025-02-09 10:31 | XMS_ITS | Encounter Summary ---
Author Organization [facility] Address [address] [place] [id number] Phone Care Team Providers Care Radioisotope Technician Name Role Phone Eusebia Terrell APRN-DIRECTOR OF PULMONARY UNIT Primary Care Provider Justyn Covington MD Unavailable [phone] Encounter Details Date Type Department Care Team (Late st Contact Info) Description 11/06/2021 Orders Only [facility] LE[facility] [address] [place] [address] Conversion, Onbase Social History Tobacco Use Types [...] Description 02/20/2025 10:00 AM EDT Office Visit [place] [id number] [facility] [address] [place] [address] Sonia Christian MD [address] [facility] 2, [address] [place] [address] Scheduled Orders Name Type Priority Associated Diagnoses Orde r Schedule OUTSIDE LAB SCAN Lab Ordered: 11/06/2021 documented as of this encounter Visit Diagnoses Not on filedocumented in this encounter Care Teams Radioisotope Technician Relationship Specialty Start Date End Date Eusebia Terrell APRN-DIRECTOR OF PULMONARY UNIT [address] [place] [address] PCP - General 11/04/19 Justyn Covington MD [address] [facility] Office [facility], [address] [address] Claim Processor Cardiology 07/05/23 documented as of this encounter
--- OUTSIDE RECORDS SUMMARY | 2025-02-09 10:31 | XMS_ITS | Encounter Summary ---
Author Organization [facility] Address [address] [place] [address] Care Team Providers Care Police Specialist Name Role Phone Eusebia Terrell NP Unavailable [phone] Mirza Pérez MD Primary Care Provider [phone] Mirza Pérez MD Primary Care Provider [phone] Unallocated, Noms Provider Primary Care Provi lindsey Mirza Pérez MD Primary Care Provider [phone] Encounter Details Date Type Department Care Team (Late Contact Info) Description 06/06/2023 Abstract [facility] [address] [place] [address] Eusebia Terrell, CYBER DEFENSE FORENSICS ANALYST [address] [place] [address] Social History Tobacco Use Types Packs/Day Years [...] 02/26/2025 2:00 PM EDT Office Visit [facility] [address] [place] [address] Eusebia Terrell, GENESIS [address] [place] [address] documented as of this encounter Visit Diagnoses Not on filedocumented in this encounter Care Teams Police Specialist Relationship Specialty Start Date End Date Mirza Pérez MD [address] [place] [address] PCP - General Family Medicine 06/05/23 08/13/23 Mirza Pérez MD [address] [place] [address] PCP - General Family Medicine 08/14/23 04/08/24 Unallocated, Noms Provider, [address] [place] [address] PCP - General Family Medicine 04/09/24 04/16/24 Mirza Pérez MD [address] [place] [address] PCP - General Family Medicine 04/17/24 Eusebia Terrell NP [address] [place] [address] Nurse Practitioner Family Medicine 03/18/23 documented as of this encounter
--- OUTSIDE RECORDS SUMMARY | 2025-02-09 10:31 | XMS_ITS | Encounter Summary ---
Author Organization [facility] [employer] [facility] tem Address [id number] [address] [place] [address] Care Team Providers Care Manuscript Reader Name Role Phone Eusebia Terrell PATSY-OPTICAL BRIGHTENER MAKER HELPER Primary Care Provider Encounter Details Date Type Department Care Team (Late st Contact Info) Description 07/25/2023 Orders Only [facility] Physicians Cardiology [address] [place] [address] External, Scanning Provider Social History [...] Info) Description 05/07/2025 11:30 AM EST Appointment [facility] - Pulmonary Function [address] [place] [address] Lisa Cervantes, DO [address] [address] 05/21/2025 9:45 AM EST Office Visit [facility] Pulmonary/Sleep Medicine [address] [place] [address] Lisa Cervantes, DO [address] [address] documented as of this encounter Procedures Procedure Name Priority Date/Time Associated Diagnosis Comments H-CARDIAC CATHETERIZATION Routine 07/25/2023 10:24 AM EST documented in this encounter Results * Cardiac catheterization (07/25/2023 10:24 AM EST) Anatomical Region Laterality Modality Other us Scanning Provider External CV CARDIAC CATH ORDER SOLOMON Final Result documented in this encounter Visit Diagnoses Not on filedocumented in this encounter Care Teams Manuscript Reader Relationship Specialty Start Date End Date Eusebia Terrell, FIRE SPRINKLER SERVICE TECHNICIAN-OPTICAL BRIGHTENER MAKER HELPER PCP - General Nurse Practitioner 08/20/23 documented as of this encounter
--- OUTSIDE RECORDS SUMMARY | 2025-02-09 10:31 | XMS_ITS | Encounter Summary ---
Author Organization [facility] Address [address] [place] [phone] Phone Care Team Providers Care Automotive Parts Clerk Name Role Phone Eusebia Terrell APRN-HYDROTREATER OPERATOR Primary Care Provider Justyn Covington MD Unavailable [phone] Encounter Details Date Type Department Care Team (Late st Contact Info) Description 04/01/2021 Orders Only [facility] LEGACY [address] [place] [address] Conversion, Onbase Social History Tobacco Use Types [...] Description 02/20/2025 10:00 AM EDT Office Visit [place] [id number] [facility] [address] [place] [address] Sonia Christian MD [address] [facility] 2, [address] [place] [address] Scheduled Orders Name Type Priority Associated Diagnoses Orde r Schedule OUTSIDE LAB SCAN Lab Ordered: 04/01/2021 documented as of this encounter Visit Diagnoses Not on filedocumented in this encounter Care Teams Automotive Parts Clerk Relationship Specialty Start Date End Date Eusebia Terrell APRN-HYDROTREATER OPERATOR [address] [place] [address] PCP - General 11/04/19 Justyn Covington MD [address] [facility] Office [facility], [address] [address] Benefits Director Cardiology 07/05/23 documented as of this encounter
--- OUTSIDE RECORDS SUMMARY | 2025-02-09 10:31 | XMS_ITS | Encounter Summary ---
Author Organization [employer] Address [id number] [address] [place] [address] Care Team Providers Care Hris Specialist Name Role Phone SocorrofernandoBlossom holdera David [employer] DRIVER Primary Care Provider Encounter Details Date Type Department Care Team (Late st Contact Info) Description 09/20/2022 Orders Only [facility] Pulmonary/Sleep Medicine [address] [place] [address] Ivanna Lee LPN SOB (shortness of breath) [...] Info) Description 05/07/2025 11:30 AM EST Appointment [facility] - Pulmonary Function [address] [place] [address] Lisa Cervantes, DO [address] [address] 05/21/2025 9:45 AM EST [facility] [address] [place] [address] Lisa Cervantes, DO [address] [address] documented as of this encounter Procedures Procedure [...] breath documented in this encounter Care Teams Hris Specialist Relationship Specialty Start Date End Date Eusebia Terrell, ASSISTANT ACCOUNTING MANAGER-[employer] DRIVER PCP - General Nurse Practitioner 08/20/23 documented as of this encounter
--- OUTSIDE RECORDS SUMMARY | 2025-02-09 10:31 | XMS_ITS | Encounter Summary ---
Author Organization [facility] Address [address] [facility] [place] [address] Care Team Providers Care Personal Injury Litigation Paralegal Name Role Phone Eusebia Terrell NP Unavailable Mirza Pérez MD Primary Care Provider [phone] Mirza Pérez MD Primary Care Provider [phone] Unallocated, Noms Provider Primary Care Provi lindsey Mirza Pérez MD Primary Care Provider [phone] Encounter Details Date Type Department Care Team [...] Visit [facility] [address] [place] [address] Eusebia Terrell NP [address] [place] [address] documented as of this encounter Procedures Procedure Name Priority Date/Time Associated Diagnosis Comments MR KNEE RT WO CON 05/24/2023 1:4 0 AM EST documented in this encounter Results * MR KNEE RT WO CON (05/24/2023 1:40 AM EST) Anatomical Region Laterality Modality Other 05/24/2023 1:40 AM EST Narrative 05/24/2023 1:44 AM EST [address] [address] Magnetic Resonance Report Signed Patient: ELYSE DUONG MR#: [id number] : 1965 Acct:[id number] Age/Sex: 57 / M ADM Date: 05/23/23 Loc: MRI Attending Dr: Lilly Santos Ordering Physician: Lilly Santos Date of Service: 05/23/23 Procedure(s): knee RT wo con Accession Number(s): [id number] cc: Eusebia Terrell CASINO ACCOUNTANT; Lilly Santos [place] [address] Patient Name: ELYSE DUONG MRN: [id number] date: 1965 Sex: M Assigned Patient Location: MRI Current Patient Location: Accession/Order Number: [id number] Exam Date: 05/23/2023 13:10 Report Date: 05/24/2023 [...] effusion. 3. Subcutaneous edema. Electronically authenticated by: YAUN KITCHEN Date: 05/24/2023 01:40 Dictated By: Yuan Kitchen M.D. Signed By: 05/24/23143 DD/ 9 TD/TT: Crane Hooker: Procedure Note Radiology, Radiologist, MD - 05/24/2023 [place] [address] Magnetic Resonance Report Signed Patient: ELYSE DUONG AMR#: [id number] : 1965Acct:[id number] Age/Sex: 57 / MADM Date: 05/23/23 Loc: MRI Attending Dr: Lilly Santos Ordering Physician: Lilly Santos Date of Service: 05/23/23 Procedure(s): MR knee RT wo con Accession Number(s): [id number] cc: Eusebia Terrell CASINO ACCOUNTANT; Lilly Santos [place] [id number] Patient Name: ELYSE DUONG MRN: [id number] date: 1965 Sex: M Assigned Patient Location: MRI Current Patient Location: Accession/Order Number: [id number] Exam Date: 05/23/2023 13:10 Report Date: 05/24/2023 [...] Kitchen M.D. Signed By:05/24/23143 DD/ 9 TD/TT: Crane Hooker: Generic External Data Provider [facility] Final Result documented in this encounter Visit Diagnoses Not on filedocumented in this encounter Care Teams Personal Injury Litigation Paralegal Relationship Specialty Start Date End Date Mirza Pérez MD [address] [place] [address] PCP - General Family Medicine 06/05/23 08/13/23 Mirza Pérez MD [address] [place] [address] PCP - General Family Medicine 08/14/23 04/08/24 Unallocated, Coco Gomes MD [address] [place] [address] PCP - General Family Medicine 04/09/24 04/16/24 Mirza Pérez MD [address] [place] [address] PCP - General Family Medicine 04/17/24 Eusebia Terrell NP [address] [place] [address] Nurse Practitioner Family Medicine 03/18/23 documented as of this encounter
--- OUTSIDE RECORDS SUMMARY | 2025-02-09 10:31 | XMS_ITS | Clinical Summary ---
Author Organization [facility] Healthcare Address [address] [place] [address] Care Team Providers Care Exhibits Coordinator Name Role Phone Eusebia Terrell NP Unavailable [phone] Mirza Pérez MD Primary Care Provider [phone] Allergies Active Allergy Reactions Criticality Noted Date Comments Lisinopril Cough Medium 04/12/2023 Medications nitroglycerin (Nitrostat) 0.4 MG SL tabletIndication s:Chest pain due to CAD Place 1 tablet (0.4 mg) under the tongue every 5 (five) minutes if needed for chest pain (may take a total of 3 doses, if not pain free by 3rd dose, call 911). 30 tablet 05/14/20 23 Active ipratropium-albu terol (Duo-Neb) 0.5-2.5 mg/3 mL nebulizer solution Inhale 3 mL in the morning and 3 mL at noon and 3 mL in the evening and 3 mL before bedtime. 06/20/19 24 Active oxygen (O2) gas Inhale continuously Active torsemide (Demadex) 20 MG tablet Take 20 mg by mouth in the morning and 20 mg at noon. Active levalbuterol (Xopenex) 45 MCG/ACT inhalerIndicatio ns:Chronic obstructive pulmonary disease, unspecified COPD type (HCC) Inhale 2 puffs every 6 (six) hours if needed for wheezing or shortness of breath 15 g 1 07/30/19 25 Active aspirin (Aspirin Low Dose) 81 MG EC tabletIndication s:Paroxysmal atrial fibrillation (HCC) Take 1 tablet (81 mg) by mouth Daily 90 tablet 1 12/05/19 025 Active atorvastatin (Lipitor) 40 MG tabletIndication s:Hyperlipidemia , unspecified Take 1 tablet (40 mg) by mouth at bedtime 90 tablet 12/23/19 Active dapagliflozin (Farxiga) 10 MGIndications:Pr e-diabetes,Chron ic diastolic heart failure (HCC) Take 1 tablet (10 mg) by mouth Daily 90 tablet 12/23/19 Active doxycycline (Monodox) 100 MG capsule Take 100 mg by mouth in the morning and 100 mg before bedtime. 01/31/20 Active cephalexin (Keflex) 500 MG capsule Take 500 mg by mouth in the morning and 500 mg at noon and 500 mg in the evening and 500 mg before bedtime. 01/31/20 Active oxyCODONE-acetam inophen (Percocet) 5-325 MG tablet 01/31/20 Active spironolactone (Aldactone) 25 MG tablet Take 25 mg by mouth Daily 01/25/20 25 Active apixaban (Eliquis) 5 MG tabletIndication s:Atrial fibrillation, unspecified type (HCC) Take 1 tablet (5 mg) by mouth in the morning and 1 tablet (5 mg) before bedtime. 180 tablet 02/03/20 Active dilTIAZem CD (Cardizem CD) 240 MG 24 hr capsuleIndicatio ns:Atrial Fibrillation,Hyp ertension Take 1 capsule (240 mg) by mouth Daily 90 capsule 02/03/20 Active Fluticasone-Umec lidin-Vilant (Trelegy Ellipta) 100-62.5-25 MCG/ACT aerosol powderIndication s:Chronic obstructive pulmonary disease, unspecified COPD type (HCC) Use 1 puff in the mouth or throat Daily Rinse mouth after use 3 each 02/03/20 025 Active losartan (Cozaar) 50 MG tabletIndication s:Primary hypertension Take 1 tablet (50 mg) by mouth Daily 90 tablet 02/03/20 025 Active metoprolol tartrate (Lopressor) 50 MG tabletIndication s:Primary hypertension,Par oxysmal atrial fibrillation (HCC) Take 1 tablet (50 mg) by mouth in the morning and 1 tablet (50 mg) before bedtime. 180 tablet 1 02/03/20 25 025 Active losartan (Cozaar) 50 MG tabletIndication s:Primary hypertension Take 1 tablet (50 mg) by mouth Daily 90 tablet 1 06/17/20 24 025 Discontin ued(Reord er) metoprolol tartrate (Lopressor) 50 MG tabletIndication s:Primary hypertension,Par oxysmal atrial fibrillation (HCC) Take 1 tablet (50 mg) by mouth in the morning and 1 tablet (50 mg) before bedtime. 180 tablet 1 07/30/19 25 025 Discontin ued(Reord er) dilTIAZem CD (Cardizem CD) 240 MG 24 hr capsuleIndicatio ns:Atrial Fibrillation,Hyp ertension Take 1 capsule (240 mg) by mouth Daily 90 capsule 1 09/19/19 025 Discontin ued(Reord er) Fluticasone-Umec lidin-Vilant (Trelegy Ellipta) 100-62.5-25 MCG/ACT aerosol powderIndication s:Chronic obstructive pulmonary disease, unspecified COPD type (HCC) Use 1 puff in the mouth or throat Daily Rinse mouth after use 3 each 1 09/19/19 25 025 Discontin ued(Reord er) apixaban (Eliquis) 5 MG tabletIndication s:Atrial fibrillation, unspecified type (HCC) Take 1 tablet (5 mg) by mouth in the morning and 1 tablet (5 mg) before bedtime. 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 Dependence on other enabling machines and device s 06/19/2024 Encounter for subsequent [facility] wellness visit (AWV) in Medicare patient 05/06/2024 [...] 59.9 in adult 05/06/2024 Assessment & Plan (02/02/2025 3:16 PM EDT): Discussed with patient their BMI (actual, [...] help with weight loss Assessment & Plan (12/22/2024 6:50 AM EDT): [...] lower extremities 0 07/19/2023 Assessment & Plan (02/02/2025 7:12 AM EDT): Stable at this time No changes in meds/doses Assessment & Plan (12/24/2023 9:22 AM EDT): Stable at this time No changes in meds/doses Assessment & Plan (08/16/2023 10:41 AM EST): Swelling is looking better Myocardial infarction 07/19/2023 Thyroid nodule 07/19/2023 Assessment & Plan (02/02/2025 2:59 PM EDT): Hx of thyroid nodule Thyroid labs in 10/10 WNL No supplemental levo Check thyroid US Assessment & Plan (12/22/2024 6:53 AM EDT): [...] disease, unspecifi ed 06/28/2023 Assessment & Plan (02/02/2025 3:15 PM EDT): Current meds: trelegy, prn duo neb, xopenex inhaler Assessment & Plan (09/18/2024 12:49 PM EDT): Current meds: trelegy, prn duo neb, xopenex inhaler Assessment & Plan (06/19/2024 6:32 AM EST): Current meds: trelegy, prn duo neb, xopenex inhaler Assessment & Plan (04/09/2024 4:48 PM EDT): Stable at this time Assessment & Plan (02/06/2024 9:38 AM EDT): Cont inhalers, and Wearing oxygen Cont w drivematic machine operator Assessment & Plan (12/24/2023 9:19 AM [...] Plan (07/19/2023 12:44 PM EST): Continue with drivematic machine operator, as well as inhalers, etc Hypoxia 06/28/2023 Assessment & Plan (07/19/2023 12:44 PM EST): O2 Assessment & Plan (06/28/2023 11:57 AM EST): Voice mail left for [facility] [phone] at 11:50am regarding getting this oxygen script taken care of Acute cough 06/12/2023 Assessment & Plan (06/28/2023 11:58 AM EST): Suspect more related to PND, no failure, will order nasal steroids and anti histamine Assessment & Plan (06/12/2023 1:54 PM EST): No s/s respiratory distress noted Will refill tessalon Bilateral lower extremity edema 06/06/2023 Assessment & Plan (02/02/2025 3:16 PM EDT): Continue diuretics Elevation of legs above heart level as much as possible Recommend wearing PAP Recommend wearing compression stockings If cannot tolerate stockings, try igor wraps Assessment & Plan (12/22/2024 6:50 AM EDT): [...] lower leg cellulitis 06/06/2023 Assessment & Plan (02/02/2025 3:16 PM EDT): Recent ER visit X2 in the last few weeks Finish atb, elevate legs Fu in 3 weeks for recheck Assessment & Plan (06/12/2023 1:56 PM EST): Clinically improved, finish atb and cont lasix Assessment & Plan (06/06/2023 10:22 AM EST): Finish atb Most likely related excess fluid Reviewed [facility] ER notes Warm moist compress , elevated legs Arrhythmia 05/25/2023 Assessment & Plan (02/02/2025 3:15 PM EDT): Continue with cardiology and eliquis and current meds Assessment & Plan (02/06/2024 9:38 AM EDT): Continue with cardiology and eliquis and current meds Assessment & Plan (07/19/2023 12:48 PM EST): Has appt with new opal miner next week Cont b preet, anti coagulation, Needs to wear PAP Primary hypertension 05/25/2023 Assessment & Plan (02/02/2025 7:12 AM EDT): Please check blood pressure daily and record DASH diet Limit caffeine Take medication as directed Contact office if chest pain, pressure, dizziness, shortness of breath, swelling legs Recommend slow position changes Current meds: losartan, metoprolol, cardizem, and torsemide Assessment & Plan (12/22/2024 4:39 PM EDT): [...] his LE edema Needs to call his drivematic machine operator Assessment & Plan (07/19/2023 12:43 PM EST): Non complaint with PAP use Explained to pt why important to wear for heart failure, afib, and copd, will also help his LE edema Needs to call his drivematic machine operator Former smoker 04/13/2023 Status post ablation of incompetent vein using l aser 04/13/2023 Body mass index (BMI) 50.0-59.9, adult Assessment & Plan (02/06/2024 9:42 AM EDT): Will try ozempic with new insurance card Assessment & Plan (08/16/2023 10:43 AM EST): Recommend weight loss Paroxysmal atrial fibrillation 04/12/2023 Assessment & Plan (02/02/2025 7:13 AM EDT): Cardiology Current meds: asa, eliquis, cardizem, metoprolol Recommend working w pulmonology for PAP use as well Assessment & Plan (12/22/2024 6:50 AM EDT): [...] at new cardiology Will refer to [facility] Rich, as this is also where his drivematic machine operator is as well Cont blood thinners [...] and prn Coronary artery disease invo lving [place] coronary artery of [place] heart without angina pectoris 09/21/2022 Assessment & Plan (12/22/2024 6:50 AM EDT): Follow with cardiology Cont b preet, statin, asa Assessment & Plan (09/18/2024 6:40 AM EDT): Follow with cardiology Cont b preet, statin, asa Assessment & Plan (06/19/2024 6:34 [...] coagulation Recommend PAP use Fu with new opal miner next week Pneumonia of both lungs due to infectious organism 06/28/2023 07/19/2023 Assessment & Plan (06/28/2023 11:58 AM EST): Finish atbs Fu in 2 weeks Hyperlipidemia 04/12/2023 12/24/2023 Morbid obesity 03/20/2014 05/06/2024 Old OR (myocardial infarction) 03/20/2014 07/19/2023 Pure hypercholesterolemia 03/20/2014 Encounters Date Type Department Care Team Description 02/02/2025 2:40 PM EDT Office Visit [facility] [address] [place] [address] Eusebia Terrell, GENESIS Bilateral lower leg cellulitis (Primary Dx); Venous insufficiency of both lower extremities; Primary hypertension ; Paroxysmal atrial fibrillation (HCC); Atrial fibrillation, unspecified type (HCC); Chronic obstructive pulmonary disease, unspecified COPD type (HCC); Thyroid nodule ; Bilateral lower extremity edema; Class 3 severe obesity due to excess calories with serious comorbidity and body mass index (BMI) of 50.0 to 59.9 in adult ([facility]) 02/02/2025 Abstract [facility] [address] [place] [address] Eusebia Terrell NP 02/02/2025 Orders Only [facility] [address] [place] [address] 01/05/2025 Telephone [facility] [address] [place] [id number] Eusebia Terrell NP 01/02/2025 External Result Encounter [facility] External Department Unsolicited Eusebia Terrell NP 12/22/2024 2:20 PM EDT Office Visit [facility] [address] [facility] [place] [address] Eusebia Terrell NP Primary hypertension (Primary Dx); CATERINA (obstructive sleep apnea); Chronic diastolic (congestive) heart failure (HCC); Coronary artery disease involving [place] coronary artery of [place] heart without angina pectoris ; Paroxysmal atrial fibrillation (HCC); Bilateral lower extremity edema; Class 3 severe obesity due to excess calories with serious comorbidity and body mass index (BMI) of 50.0 to 59.9 in adult ([facility]); Pre-diabetes; Thyroid nodule ; Pulmonary emphysema, unspecified emphysema type (HCC); Moderate persistent asthma without complication (HCC); Hyperlipidemia, unspecified ; Chronic diastolic heart failure (HCC); Atrial fibrillation, unspecified type (HCC) 12/22/2024 Bamboo flowsheet [facility] [address] [place] [address] Eusebia Terrell NP 12/03/2024 Refill [facility] [address] [place] [facility] [place] [address] Eusebia Terrell NP Paroxysmal atrial fibrillation (HCC) 12/02/2024 Refill [facility] [address] [place] [address] Eusebia Terrell NP Atrial fibrillation, unspecified type ([facility]) 11/25/2024 Refill [facility] [address] [place] [address] Eusebia Terrell NP from Last 3 Months [...] 6.4 oz) 02/02/2025 2:44 PM EDT Height 172.7 cm (5' 8 ) 06/19/2024 9:57 AM EST Body Mass Index 56.32 06/19/2024 9:57 AM EST Plan of Treatment Upcoming Encounters Date Type Department Care Team (Late st Contact Info) Description 02/26/2025 2:00 PM EDT Office Visit [facility] [address] [place] [address] Eusebia Terrell NP [address] [place] [address] Health Maintenance Due Date Last Done Comments CT Colonography 1965 FIT-DNA 1965 FIT 1965 FOBT 1965 Sigmoidoscopy 1965 Colonoscopy 05/28/2027 05/28/2017 Colorectal Cancer Screening 05/28/2027 Influenza Vaccine Discontinued Procedures Procedure Name Priority Date/Time Associated Diagnosis Comments XR TIBIA FIBULA 2 VIEWS LEFT Routine 02/02/2025 1:33 PM EDT BASIC METABOLIC PANEL Routine 01/02/2025 9:52 AM EDT CBC WITH AUTO DIFFERENTIAL Routine 01/02/2025 9:52 AM EDT from Last 3 Months Results * XR tibia fibula 2 views left (02/02/2025 1:33 PM EDT) Anatomical Region Laterality Modality Lower Extremities, Lower Leg Left Rad iographic Imaging [facility] IMG XR PROCEDURES Final Result * (ABNORMAL) CBC auto differential (01/02/2025 9:52 [...] TYPE AUTOMATED DIFFERENTIAL [facility] Comment: PERFORMED AT [address],[place] [address] 01/02/2025 9:52 AM EDT 01/02/2025 12:52 PM EDT us Eusebia Terrell TELESCOPE REPAIRER LAB BLOOD ORDERABLES Final Resu lt [facility] * (ABNORMAL) Basic metabolic panel (01/02/2025 9:52 AM EDT) [facility] Sodium 135 134 - 146 mmol/L [facility] [...] not use a race coefficient. PERFORMED AT [address],[place] [address] 01/02/2025 9:52 AM EDT 01/02/2025 12:52 PM EDT Eusebia Terrell TELESCOPE REPAIRER LAB BLOOD ORDERABLES Final Resu lt [facility] from Last 3 Months Insurance [facility] Care Teams Exhibits Coordinator Relationship Specialty Start Date End Date Mirza Pérez MD [address] [place] [address] PCP - General Family Medicine 04/17/24 Eusebia Terrell NP [address] [place] [address] Nurse Practitioner Family Medicine 03/18/23
--- OUTSIDE RECORDS SUMMARY | 2025-02-09 10:31 | XMS_ITS | Encounter Summary ---
Author Organization [facility] Address [address] [place] [id number] Phone Care Team Providers Care Drawer Maker Name Role Phone Eusebia Terrell APRN-PURCHASING MANAGER Primary Care Provider Justyn Covington MD Unavailable [phone] Encounter Details Date Type Department Care Team (Late Contact Info) Description 03/16/2021 Orders Only [facility] [address] [place] [address] Conversion, Onbase Social History Tobacco Use Types [...] Description 02/20/2025 10:00 AM EDT Office Visit [place] [id number] [address] Sonia Christian MD [address] [facility], [address] [place] [address] Scheduled Orders Name Type Priority Associated Diagnoses Orde r Schedule SLEEP STUDY ORDER - ONBASE SCAN Sleep Center Ordered: 021 documented as of this encounter Visit Diagnoses Not on filedocumented in this encounter Care Teams Drawer Maker Relationship Specialty Start Date End Date Eusebia Terrell APRN-PURCHASING MANAGER [address] [place] [address] PCP - General 11/04/19 Justyn Covington MD [address] [facility], [address] [address] [facility] 07/05/23 documented as of this encounter
--- OUTSIDE RECORDS SUMMARY | 2025-02-09 10:31 | XMS_ITS | Encounter Summary ---
Author Organization [facility] re3D [facility] tem Address [id number] [address] [place] [address] Care Team Providers Care Price Accuracy Supervisor Name Role Phone Eusebia Terrell SUPERVISOR [facility] Primary Care Provider Encounter Details Date Type Department Care Team (Late Contact Info) Description 04/30/2023 Orders Only [facility] Pulmonary/Sleep Medicine [address] [phone] Eusebia Terrell, SUPERVISOR [facility] [address] [place] [address] Social History Tobacco Use Types Packs/Day Years [...] Info) Description 05/07/2025 11:30 AM EST Appointment [facility] - Pulmonary Function [address] [place] [address] Lisa Cervantes, DO [address] [address] 05/21/2025 9:45 AM EST [facility] [address] [place] [address] Lsia Cervantes, DO [address] [address] documented as of this encounter Procedures Procedure Name Priority Date/Time Associated Diagnosis Comments SIX MINUTE WALK Routine 04/26/2023 4:20 PM EST documented in this encounter Results * Six minute walk (04/26/2023 4:20 PM EST) us Eusebia Terrell APRN-LANDSCAPE PHOTOGRAPHER RESPIRATORY CARE ORDERA BLES Final Result MANUALLY TRANSCRIBED RESULTS documented in this encounter Visit Diagnoses Not on filedocumented in this encounter Care Teams Price Accuracy Supervisor Relationship Specialty Start Date End Date Eusebia Terrell APRN-CNP PCP - General Nurse Practitioner 08/20/23 documented as of this encounter
--- OUTSIDE RECORDS SUMMARY | 2025-02-09 10:31 | XMS_ITS | Encounter Summary ---
Author Organization [facility] Address [address] [place] [address] Care Team Providers Care Animal Handler Name Role Phone Eusebia Terrell NP Unavailable [phone] Mirza Pérez MD Primary Care Provider [phone] Reason for Visit * Reason Onset Date Comments Med Refill Medication Question 12/02/2024 Encounter Details Date Type Department Care Team (Late st Contact Info) Description 12/02/2024 Refill [facility] [address] [place] [address] Eusebia Terrell NP [address] [place] [address] Atrial fibrillation, unspecified type (HCC) Social History [...] 2:00 PM EDT Office Visit [facility] [address] [place] [address] Eusebia Terrell NP [address] [place] [address] documented as of this encounter Visit Diagnoses Diagnosis Atrial fibrillation, unspecified type (HCC) documented in this encounter Additional Health Concerns Assessment Noted Time PHQ-9 Depression Total Score: 2 06/19/19 25 10:05 AM EST documented as of this encounter Care Teams Animal Handler Relationship Specialty Start Date End Date Mirza Pérez MD [address] [place] [address] PCP - General Family Medicine 04/17/24 Eusebia Terrell NP [address] [place] [address] Nurse Practitioner Family Medicine 03/18/23 documented as of this encounter
--- OUTSIDE RECORDS SUMMARY | 2025-02-09 10:31 | XMS_ITS | Encounter Summary ---
Author Organization [facility] Address [address] [place] [address] Care Team Providers Care Sql Tech Name Role Phone Eusebia Terrell NP Unavailable [phone] Mirza Pérez MD Primary Care Provider [phone] Mirza Pérez MD Primary Care Provider [phone] Unallocated, [facility] Provider Primary Care Provi lindsey Mirza Pérez MD Primary Care Provider [phone] Encounter Details Date Type Department Care Team [...] 02/26/2025 2:00 PM EDT Office Visit [facility] [address] [place] [address] Eusebia Terrell NP [address] [place] [address] (work) documented as of this encounter Procedures Procedure Name Priority Date/Time Associated Diagnosis Comments XR KNEE 4+ VIEWS RIGHT 08/07/2023 10:04 AM EST documented in this encounter Results * XR knee 4+ views right (08/07/2023 10:04 AM EST) Anatomical Region Laterality Modality Lower Extremities, Knee Right Radiogra phic Imaging 08/07/2023 10:0 4 AM EST Narrative 08/07/2023 10:08 [place] [address] XRay Report Signed Patient: ELYSE DUONG MR#: [id number] : 1965 Acct:[id number] Age/Sex: 58 / M ADM Date: 08/06/23 Loc: EC Attending Dr: Yuan Grimm M.D. Ordering Physician: Yuan Grimm M.D. Date of Service: 08/06/23 Procedure(s): XR knee RT 4V Accession Number(s): [id number] cc: Eusebia Terrell FLAME CUTTING MACHINE OPERATOR HELPER; Yuan Grimm M.D. [address] [address] Patient Name: ELYSE DUONG MRN: [id number] date: 1965 Sex: M Assigned Patient Location: Current Patient Location: Accession/Order Number: [id number] Exam Date: 08/06/2023 11:15 Report Date: 08/07/2023 [...] Signed By: 08/07/23 1008 DD/ 100 TD/TT: Nitrocellulose Maker: Procedure Note Radiology, Radiologist, - 08/07/2023 The [place] [id number] XRay Report Signed Patient: ELYSE DUONG AMR#: [id number] : 1965Acct:[id number] Age/Sex: 58 / MADM Date: 08/06/23 Loc: EC Attending Dr: Yuan Grimm M.D. Ordering Physician: Yuan Grimm M.D. Date of Service: 08/06/23 Procedure(s): XR knee RT 4V Accession Number(s): [id number] cc: Eusebia Terrell FLAME CUTTING MACHINE OPERATOR HELPER; Yuan Grimm M.D. The [address] [address] Patient Name: ELYSE DUONG MRN: [id number] date: 1965 Sex: M Assigned Patient Location: Current Patient Location: Accession/Order Number: [id number] Exam Date: 08/06/2023 11:15 Report Date: 08/07/2023 [...] M.D. Signed By:08/07/23 1008 DD/ 03 TD/TT: Nitrocellulose Maker: Generic External Data Provider IMG XR PROCEDURES Final Result documented in this encounter Visit Diagnoses Not on filedocumented in this encounter Care Teams Sql Tech Relationship Specialty Start Date End Date Mirza Pérez MD [address] [place] [address] PCP - General Family Medicine 12/19/23 2/26/24 Mirza Pérez MD [address] [place] [address] PCP - General Family Medicine 08/14/23 04/08/24 Unallocated, [facility] MD Eliseo [address] [place] [address] PCP - General Family Medicine 04/09/24 04/16/24 Mirza Pérez MD [address] [place] [address] PCP - General Family Medicine 04/17/24 Eusebia Terrell NP [address] [place] [address] Nurse Practitioner Family Medicine 03/18/23 documented as of this encounter
--- OUTSIDE RECORDS SUMMARY | 2025-02-09 10:31 | XMS_ITS | Encounter Summary ---
Author Organization [facility] Address [address] [place] [address] Care Team Providers Care Residential Program Coordinator Name Role Phone uEsebia Terrell NP Unavailable [phone] Mirza Pérez MD Primary Care Provider [phone] Encounter Details Date Type Department Care Team ([facility] Contact Info) Description 09/17/2024 Orders Only [facility] [address] [place] [phone] Eusebia Terrell, GENESIS [address] [place] [phone] Social History Tobacco Use Types Packs/Day Years [...] Upcoming Encounters Date Type Department Care Team ([facility] Contact Info) Description 02/26/2025 2:00 PM EDT Office Visit [facility] [address] [place] [phone] Eusebia Terrell, GENESIS [address] [place] [phone] documented as of this encounter Procedures Procedure Name Priority Date/Time Associated Diagnosis Comments MICROALBUMIN / CREATININE URINE RATIO Routine 09/17/2024 3:29 PM EDT documented in this encounter Results * Microalbumin / creatinine urine ratio (09/17/2024 3:29 PM EDT) Urine Urine specimen obtained by clean catch procedure / Unknown Eusebia Terrell [employer] LAB URINE ORDERABLES Final Resu lt documented in this encounter Visit Diagnoses Not on filedocumented in this encounter Additional Health Concerns Assessment Noted Time PHQ-9 Depression Total Score: 2 06/19/19 25 10:05 AM EST documented as of this encounter Care Teams Residential Program Coordinator Relationship Specialty Start Date End Date Mirza Pérez MD [address] [place] [phone] PCP - General Family Medicine 04/17/24 Eusebia Terrell NP [address] [place] [phone] Nurse Practitioner Family Medicine 03/18/23 documented as of this encounter
--- OUTSIDE RECORDS SUMMARY | 2025-02-09 10:31 | XMS_ITS | Encounter Summary ---
Author Organization [facility] Address [address] [place] [id number] Phone Care Team Providers Care Snow Plow Tractor Operator Name Role Phone Eusebia Terrell APRN-DIRECTOR DIGITAL CATALOGUE Primary Care Provider Justyn Covington MD Unavailable [phone] Encounter Details Date Type Department Care Team (Late st Contact Info) Description 02/04/2022 Orders Only [email or web address] [address] [place] [address] Conversion, Onbase Social History Tobacco Use Types [...] Description 02/20/2025 10:00 AM EDT Office Visit [place] [id number] [facility] [address] [place] [address] Sonia Christian MD [address] [facility] [address] [place] [address] Scheduled Orders Name Type Priority Associated Diagnoses Orde r Schedule OUTSIDE LAB SCAN Lab Ordered: 02/04/2022 documented as of this encounter Visit Diagnoses Not on filedocumented in this encounter Care Teams Snow Plow Tractor Operator Relationship Specialty Start Date End Date Eusebia Terrell APRN-DIRECTOR DIGITAL CATALOGUE [address] [place] [address] PCP - General 11/04/19 Justyn Covington MD [address] [facility] Office [facility], [address] [address] Balance Truing Inspector Cardiology 07/05/23 documented as of this encounter
--- OUTSIDE RECORDS SUMMARY | 2025-02-09 10:35 | XMS_ITS | CCD ---
Author Organization [facility] Care Team Providers Care Stapler Machine Name Role Phone MADISON BLANCO Unavailable Unavailable NO FAMILY DOCTOR, NO FAMILY DOCTOR Unavailable Unavailable Xander, Eusebia Rondon Unavailable Unavailable Unavailable Dr. Madison Blanco Referring Unavaila ble Anahi, Dr. Scott Attending Unavaila ble Aichholz, Mrs. Eusebia Rondon Primary Care Unavailab JUSTYN Lomeli Attending Leyla vailable Xander, Mrs. Eusebia Rondon Primary Care Unavailab JUSTYN Lomeli Referring Leyla vailable Farris, K 9 HANDLER/ DEPUTY Eileen Referring Unavailable Farris, NATALIA Arellano Attending Unavailable Aichholz, Mrs. Eusebia Rondon Primary Care Unavailab le Anahi, Dr. Scott Referring Unavaila ble Traboulssi, Dr. Scott Attending Unavaila ble Aichholz, Mrs. Eusebia Rondon Primary Care Unavailab le AICHHOLZ, K 9 HANDLER/ DEPUTY EUSEBIA Primary Care Unavailable JF, DR VIDHI Biswas Consulting Unavailable JF, DR VIDHI Biswas Admitting Unavailable JF, DR IVDHI Biswas Attending Unavailable JULIEN [place] Consulting Unavailable MARCO ANTONIO FRIEDMAN Consulting Unavailable AICHHOLZ, K 9 HANDLER/ DEPUTY [place] Primary Care Unavailable TED SUNG Admitting Unavailable TED SUNG Attending Unavailable ANNAMARIE Sue, TED Consulting Unavailable UBALDO PERRINYL Consulting Unavailable AYDINROBERTA Attending Unavailable AYDIN, ROBERTA Admitting Unavailable AICHHOLZ, K 9 HANDLER/ DEPUTY [place] Primary Care Unavailable MARLENE ARAMBULA Consulting Unavailable AICHHOLZ, K 9 HANDLER/ DEPUTY [place] Primary Care Unavailable AYDIN, ROBERTA Admitting Unavailable AYDINUBALDOYL Attending Unavailable AYDIN, ROBERTA Consulting Unavailable Nery Mckeon Consulting Unavailable AICHHOLZ, K 9 HANDLER/ DEPUTY [place] Primary Care Unavailable CAM Sue, DR CONNOLLY Admitting Unavailable CAM Sue, DR CONNOLLY Attending Unavailable RAFAEL, DR MARCO ANTONIO Stewart Consulting Unavailable CLARY RODARTE Consulting Unavailable AICHHOLZ, K 9 HANDLER/ DEPUTY [place] Primary Care Unavailable JF, DR VIDHI Biswas Admitting Unavailable JF, DR VIDHI Biswas Attending Unavailable JF, DR VIDHI Biswas Consulting Unavailable DONG BUNDY Consulting Unavailable ANNAMARIE ., TED Consulting Unavailable ANNAMARIE ., TED Attending Unavailable ANNAMARIE ., TED Admitting Unavailable AICHHOLZ, K 9 HANDLER/ DEPUTY [place] Primary Care Unavailable Dwait, Leo Consulting Unavailable ROMEO Sue, DR FRANCO Consulting Unavailable ROMEO ., DR FRANCO Attending Unavailable AICHHOLZ, K 9 HANDLER/ DEPUTY [place] Primary Care Unavailable ROMEO ., DR FRANCO Admitting Unavailable HAY ., DR CONNOLLY Consulting Unavailable ROBERTA PERRIN Consulting Unavailable SANDEEP MARY Consulting Unavailable AICHHOLZ, K 9 HANDLER/ DEPUTY [place] Consulting Unavailable AICHHOLZ, K 9 HANDLER/ DEPUTY [place] Primary Care Unavailable AICHHOLZ, K 9 HANDLER/ DEPUTY [place] Attending Unavailable AICHHOLZ, K 9 HANDLER/ DEPUTY [place] Admitting Unavailable MISC, DR DAVIS Consulting Unavailable AICHHOLZ, K 9 HANDLER/ DEPUTY [place] Primary Care Unavailable MISC, DR DAVIS Attending Unavailable MISC, DR DAVIS Admitting Unavailable ZIEBER, DR KESHAWN Biswas Consulting Unavailable AICHHOLZ, K 9 HANDLER/ DEPUTY [place] Primary Care Unavailable RICA YE Attending Unavailable RICA YE Admitting Unavailable IRCA YE Consulting Unavailable AICHHOLZ, K 9 HANDLER/ DEPUTY [place] Consulting Unavailable AICHHOLZ, K 9 HANDLER/ DEPUTY [place] Primary Care Unavailable AICHHOLZ, K 9 HANDLER/ DEPUTY [place] Attending Unavailable AICHHOLZ, K 9 HANDLER/ DEPUTY [place] Admitting Unavailable AICHHOLZ, K 9 HANDLER/ DEPUTY [place] Admitting Unavailable AICHHOLZ, K 9 HANDLER/ DEPUTY [place] Attending Unavailable AICHHOLZ, K 9 HANDLER/ DEPUTY [place] Primary Care Unavailable AICHHOLZ, K 9 HANDLER/ DEPUTY [place] Consulting Unavailable MIRZA GZUMÁN Attending Unavailable MIRZA GUZMÁN Admitting Unavailable DR SALVADOR COBIAN Consulting Unavailable AICHHOLZ, K 9 HANDLER/ DEPUTY [place] Primary Care Unavailable BABITA .DR SCOTT Consulting Unavailable MIRZA GUZMÁN Consulting Unavailable NIKOLAY .KARISHMA Consulting UnavailJuanjose Sue, DR CONNOLLY Consulting Unavailable KESHAWN ALVAREZ Consulting Unavailable Aichholz, Mrs. Eusebia Rondon Primary Care Unavailab le SEBASTIAN, NAIM Attending Unavailable Aichholz, Mrs. Eusebia Rondon Primary Care Unavailab le SEBASTIAN, NAIM Attending Unavailable Aichholz HEAD OF INTEGRATED MEDIA-K 9 HANDLER/ DEPUTYEusebia Nela Primary Care Provider Aichholz TRAIN RESERVATION CLERK, Eusebia Unavailable Elisa PAREDES, Mirza Primary Care Provider Justyn Mondragon MD Unavailable LISA CERVANTES Attending Unavailable AICHHOLZ, EUSEBIA J Referring Unavailable AICHHOLZ, [place]SEBIA J Primary Care Unavailable AICHHOLZ, [place]SE[place] J Referring Unavailable AICHHOLZ, [place]SEB[place] J Primary Care Unavailable Aichholz TRAIN RESERVATION CLERK, Eusebia Unavailable Elisa PAREDES, Mirza Primary Care Provider [phone] Unallocated MD, Noms Provider Primary Care Provi lindsey Elisa PAREDES, Mirza Primary Care Provider Aichholz HEAD OF [employer]TEGRATED MEDIA-K 9 HANDLER/ DEPUTY, Eusebia Hernandez Primary Care Provider Aichholz HEAD OF INTEGRATED MEDIA-K 9 HANDLER/ DEPUTY, Eusebia David Primary Care Provider Gi Kimble Primary Care Provider Unavailable Primary Care Provider Unavailabl e Aichholz HEAD OF INTEGRATED MEDIA-K 9 HANDLER/ DEPUTY, Eusebia J Primary Care Provider Aichholz HEAD OF INTEGRATED MEDIA-K 9 HANDLER/ DEPUTY, Eusebia Rondon Primary Care Provider Justyn Mondragon MD Unavailable MADISON BLANCO Attending Unavailable MADISON BLANCO Referring Unavailable AHSAN TERRELLA NELA Primary Care Unavailable Aichholz HEAD OF INTEGRATED MEDIA-K 9 HANDLER/ DEPUTY, Eusebia J Primary Care Provider XANDER [place] J Referring Unavailable AICHHOLZ, [place] J Primary Care Unavailable AICHHOLZ, [place] J Referring Unavailable AICHHOLZ, [place] J Primary Care Unavailable AICHHOLZ, [place] J Referring Unavailable AICHHOLZ, [place] J Primary Care Unavailable AICHHOLZ, [place] J Primary Care Unavailable LUKE CASTRO Attending Unavailable AICHHOLZ, [place] Attending Unavailable AICHHOLZ, EUSEBIA Attending Unavailable AICHHOLZ, [place]SE[place]IA Attending Unavailable AICHHOLZ, EUSEBIA Attending Unavailable AICHHOLZ, [place]SEBIA Attending Unavailable AICHHOLZ, EUSEBIA Attending Unavailable Unavailable Unavailable Unavailable Allergies Allergy Classification Reported Allergen(s) Allergy Type Date of Onset Reaction(s) Facility (20 sources) Lisinopril; Translations: [Lisinopril TABS] Drug Allergy 3 Cough [facility] (20 sources) Lisinopril; Translations: [LISINOPRIL] Propensity to adverse reactions 3 Cough [facility] Medications Current Medications Medication Drug Class(es) Dates Sig (Normalized) Sig (Original) acetaminophen 325 mg / oxyCODONE hydrochloride 5 mg oral tablet (2 sources) Opioid Agonist Start: 01-30-2025 oxyCODONE-acetami nophen (Percocet) 5-325 MG tablet 01/30/2025 Active albuterol 0.833 mg/ml / ipratropium bromide 0.167 mg/ml inhalation solution (20 sources) Anticholinergic, beta2-Adrenergic Agonist Start: 2023 ipratropium-albut stephane (Duo-Neb) 0.5-2.5 mg/3 mL nebulizer solution Inhale 3 mL in the morning and 3 mL at noon and 3 mL in the evening and 3 mL before bedtime. 2023 Active Start: 2023 End: 01-21-2024 take 1 mL by inhalation four times daily as needed ipratropium-albuteroL (Duo-Neb) 0.5-2.5 mg/3 mL nebulizer solution Inhale 1 mL 4 times a day as needed. 2023 Active aspirin 81 mg delayed release oral [...] or chew. 21 capsule 06/19/2024 06/26/2024 Active cephalexin 500 mg oral capsule (2 sources) Cephalosporin Antibacterial Start: 01-30-2025 cephalexin (Keflex) 500 MG capsule Take 500 mg by mouth in the morning and 500 mg at noon and 500 mg in the evening and 500 mg before bedtime. 01/30/2025 Active cholecalciferol 1.25 mg oral capsule (6 sources) Vitamin D End: 10-15-2024 take 1 capsule by mouth once daily cholecalciferol (Vitamin D-3) 50,000 unit capsule Take 1 capsule (1.25 mg) by mouth once daily. 10/15/2024 Discontinued (Therapy completed) take 1 capsule by mouth in the m orning cholecalciferol (Vitamin D-3) 1.25 MG (01925 UT) capsule Take 50,000 Units by mouth in the morning. 0 Active dapagliflozin 10 mg oral tablet (20 sources) Sodium-Glucose Cotransporter 2 Inhibitor Start: 08-20-2023 End: 03-22-2025 take 1 tablet by mouth once daily dapagliflozin (Farxiga) 10 MG Indications: Pre-diabetes , Chronic diastolic heart failure (HCC) Take 1 tablet (10 mg) by mouth Daily 90 tablet 1 12/22/2024 03/22/2025 Active doxycycline monohydrate 100 mg oral capsule (2 sources) Tetracycline-clas s Drug Start: 01-30-2025 take 1 capsule by mouth in the morning doxycycline (Monodox) 100 MG capsule Take 100 mg by mouth in the morning and 100 mg before bedtime. 01/30/2025 Active fluticasone propionate 0.05 mg/actuat metered dose nasal spray (3 sources) Corticosteroid Start: 06-28-2023 End: 06-27-2024 take 1-2 spray(s) nasal route in the morning fluticasone (Flonase) 50 MCG/ACT nasal spray Indications: Acute cough Administer 1-2 sprays into each nostril in the morning. Shake gently. Before first use, prime pump. After use, clean tip and replace cap.. 48 g 1 07/23/2023 10/21/2023 Active lpzdgskhqhp-vkkecxtwg-e ilanter (Trelegy Ellipta) 200-62.5-25 mcg blister with device (1 source) End: 04-13-2023 fluticasone-umeclidin- vilanter (Trelegy Ellipta) 200-62.5-25 mcg blister with device Inhale once daily. 0 04/13/2023 Discontinued (Therapy completed) hydroCHLOROthiazide 25 mg oral tablet (9 sources) [...] Start: 11-16-2020 take 1 tablet by tristan once daily Lisinopril 20 MG Oral Tablet [...] MG Oral Daily April 24, 2019 11:20am nitroglycerin 0.4 mg sublingual tablet (20 sources) Nitrate Vasodilator Start: 10-15-2024 nitroglycerin (Nitrostat) 0.4 mg SL tablet Indications: 2-vessel coronary artery disease Place 1 tablet (0.4 mg) under the tongue every 5 minutes if needed for chest pain. 25 tablet 11 10/15/2024 Active Start: 05-14-2023 End: 10-15-2024 nitroglycerin (Nitrostat) 0. 4 MG SL tablet Indications: Chest pain due to CAD Place 1 tablet (0.4 mg) under the tongue every 5 (five) minutes if needed for chest pain (may take a total of 3 doses, if not pain free by 3rd dose, call 911). 30 tablet 05/14/2023 Active Oxygen (20 sources) oxygen (O2) [...] food. 10 tablet 06/19/2024 06/24/2024 Active vitamin lbhkdxh-kqmk-adugc ( Plus, calcium carb,) 27 mg iron- 1 mg tablet (1 source) Start: 01-03-2021 End: 04-13-2023 take 1 tablet by mouth once daily vitamin envsarc-ufrv-hbxsl ( Plus, calcium carb,) 27 mg iron- 1 mg tablet Take 1 tablet by mouth once daily. 0 01/03/2021 04/13/2023 Discontinued (Therapy completed) Semaglutide,0.25 or 0.5MG/DOS, (Ozempic, 0.25 or 0.5 MG/DOSE,) 2 MG/3ML solution pen-injector (9 sources) Start: 12-24-2023 End: 06-19-2024 Semaglutide,0.25 or 0.5MG/DOS, (Ozempic, 0.25 or 0.5 MG/DOSE,) 2 MG/3ML solution pen-injector Indications: Coronary artery disease involving [place] coronary artery of [place] heart without angina pectoris (CMS/HCC) , Morbid obesity with BMI of 50.0-59.9, adult (CMS/HCC) , Pre-diabetes Inject 0.25 mg under the skin every 7 (seven) days for 28 days 3 mL 1 12/24/2023 06/19/2024 Discontinued (Cost of medication) Start: 12-24-2023 Semaglutide,0. 25 or 0.5MG/DOS, (Ozempic, 0.25 or 0.5 MG/DOSE,) 2 MG/3ML solution pen-injector Indications: Coronary artery disease involving [place] coronary artery of [place] heart without angina pectoris (CMS/HCC) , Morbid obesity with BMI of 50.0-59.9, adult (CMS/HCC) , Pre-diabetes Inject 0.25 mg under the skin every 7 (seven) days for 28 days 3 mL 1 12/24/2023 Active spironolactone 25 mg oral tablet (20 sources) Aldosterone Antagonist Start: 01-24-2025 take 1 tablet by mouth once daily spironolactone (Aldactone) 25 MG tablet Take 25 mg by mouth Daily 01/24/2025 Active Start: 10-31-2023 End: 12-22-2024 take 1 tablet [...] failure (CMS-HCC) , Coronary artery disease involving [place] coronary artery of [place] heart without angina pectoris , Persistent atrial fibrillation (CMS-HCC) Take 1 tablet (20 mg total) by mouth daily. May take an additional 20 mg as needed for swelling, weight gain SOB 135 tablet 3 03/24/2024 Active Start: 08-20-2023 End: 01-22-2024 take 2 tablets by mouth once daily torsemide (DEMADEX) 20 mg tablet Indications: Chronic diastolic heart failure (CMS-HCC) , Coronary artery disease involving [place] coronary artery of [place] heart without angina pectoris , Persistent atrial [...] Ordered: 25-Feb-2021 DO Start : 25-Feb-2021 Complete [id number] 60 actuat albuterol 0.09 mg/actuat metered dose inhaler (1 source) beta2-Adrenergic Agonist Start: 12-06-2020 Albuterol Sulfate HFA 108 (90 Base) MCG/ACT Inhalation Aerosol Solution Quantity: 7 Refills: 0 Ordered: 06-Dec-2020 DO Start : 06-Dec-2020 Complete apixaban 5 mg oral tablet (20 sources) Factor Xa Inhibitor Start: 09-03-2024 End: 05-03-2025 take 1 tablet by mouth in the morning apixaban (Eliquis) 5 MG tablet Indications: Atrial fibrillation, unspecified type (HCC) Take 1 tablet (5 mg) by mouth in the morning and 1 tablet (5 mg) before bedtime. 60 tablet 2 12/02/2024 02/02/2025 Discontinued (Reorder) Start: 09-27-2023 End: 05-06-2024 take 1 tablet [...] bedtime. 60 tablet 2 07/14/2023 08/13/2023 Active 24 hr dilTIAZem hydrochloride 240 mg extended release oral capsule (20 sources) Calcium Channel Preet Start: 05-14-2023 End: 05-03-2025 take 1 capsule by mouth once daily dilTIAZem CD (Cardizem CD) 240 MG 24 hr capsule Indications: Atrial Fibrillation , Hypertension Take 1 capsule (240 mg) by mouth Daily 90 capsule 1 09/18/2024 02/02/2025 Discontinued (Reorder) Start: 05-14-2023 End: 02-06-2024 take 1 capsule by mouth every twenty-four hours in the morning dilTIAZem CD (Cardizem CD) 240 MG 24 hr capsule Indications: Atrial Fibrillation , Hypertension Take 1 capsule (240 mg) by mouth in the morning. 30 capsule 3 05/14/2023 02/06/2024 Discontinued (Reorder) Start: 03-27-2020 End: 07-26-2023 take 1 capsule [...] Oral Every morning April 24, 2019 11:20am 30 actuat fluticasone furoate 0.1 mg/actuat / umeclidinium 0.0625 mg/actuat / vilanterol 0.025 mg/actuat dry powder inhaler (20 sources) Anticholinergic, Corticosteroid, beta2-Adrenergic Agonist Start: 09-27-2023 End: 05-03-2025 take 1 puff(s) by mouth once daily Kxndrxmivjv-Nnhvasxfj-Flihkv (Trelegy Ellipta) 100-62.5-25 MCG/ACT aerosol powder Indications: Chronic obstructive pulmonary disease, unspecified COPD type (HCC) Use 1 puff in the mouth or throat Daily Rinse mouth after use 3 each 1 09/18/2024 02/02/2025 Discontinued (Reorder) Start: 05-14-2023 take 1 puff(s) by mo uth in the morning Zaosejqunyd-Lsdybofje-Jgjnwv (Trelegy Ellipta) 100-62.5-25 MCG/ACT aerosol powder Indications: [...] 1 puff(s) by inhalation in the morning nowmfrfizyl-ghjraniip-psveszpw (TRELEGY ELLIPTA) 100-62.5-25 mcg blister with device Inhale 1 puff in the morning. Active take 1 puff(s) by inhalation every twenty-four hours Trelegy Ellipta 100-62.5-25 mcg blister with device Inhale 1 puff once every 24 hours. Active furosemide 20 mg oral tablet (6 sources) [...] 0 04/13/2023 Discontinued (Discontinued by another clinician) losartan potassium 50 mg oral tablet (20 sources) Angiotensin 2 Receptor Preet Start: 09-15-2022 End: 05-03-2025 take 1 tablet by mouth once daily losartan (Cozaar) 50 MG tablet Indications: Primary hypertension Take 1 tablet (50 mg) by mouth Daily 90 tablet 1 06/17/2024 02/02/2025 Discontinued (Reorder) methylPREDNISolone 4 MG Oral Tablet Therapy Pack (1 source) Start: 08-14-2020 methylPREDNISolone 4 MG Oral Tablet Therapy Pack Quantity: 21 Refills: 0 Ordered: 14-Aug-2020 DO Start : 14-Aug-2020 Complete metoprolol tartrate 50 mg oral tablet (20 sources) beta-Adrenergic Preet Start: 07-02-2023 End: 05-03-2025 take 1 tablet by mouth in the morning metoprolol tartrate (Lopressor) 50 MG tablet Indications: Primary hypertension , Paroxysmal atrial fibrillation (HCC) Take 1 tablet (50 mg) by mouth in the morning and 1 tablet (50 mg) before bedtime. 180 tablet 1 07/30/2024 02/02/2025 Discontinued (Reorder) Start: 2023 End: 07-26-2023 take 1 tablet [...] total) before bedtime. 0 08/20/2023 Discontinued (Reorder) PNV Plus Multivitamin 27-1 MG TABS (12 [...] [Coronary atherosclerosis of unspecified type of vessel, [place] or graft] Onset: 03-20-2014 Resolved: 07-19-2023 04-13-2023 [...] Essential hypertension Onset: 08-23-2017 Hyperplasia of prostate (14 sources) Benign prostatic hyperplasia; Translations: [Benign prostatic hyperplasia without lower urinary tract symptoms] Onset: 06-19-2024 06-19-2024 Chronic Immunizations and screening for infectious disease (1 source) Encounter for screening for other infectious and parasitic diseases; Translations: [ENC SCREENING OTH INF PARASITIC DZ] Onset: 10-28-2022 Episodic Nonspecific chest pain (6 sources) Chest pain, unspecified; Translations: [Atypical chest pain] Onset: 05-20-2022 Episodic Nutritional deficiencies (12 sources) Vitamin D deficiency; Translations: [Vitamin D deficiency, unspecified] Onset: 09-18-2024 09-18-2024 Chronic Other aftercare (1 source) skilled nursing (current) use of aspirin; Translations: [ASSISTED CURRENT USE OF ASPIRIN] Onset: 08-29-2022 Episodic Other aftercare (1 source) 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; Translations: [OTH ASSISTED CURRENT DRUG THERAPY] Onset: 08-29-2022 Episodic Other connective tissue disease (1 source) Pain in lower limb Onset: 01-24-2025 Episodic Other diseases of veins and lymphatics [...] nutritional; endocrine; and metabolic disorders (20 sources) Severe obesity; Translations: [Class 3 severe obesity due to excess calories with serious comorbidity and body mass index (BMI) of 50.0 to 59.9 in adult] Onset: 05-06-2024 05-06-2024 Chronic Other upper respiratory disease (19 sources) Allergic disposition; Translations: [Other allergic rhinitis] [...] (pediatric)] Onset: 09-21-2022 Chronic Residual codes; unclassified (14 sources) Dependence on enabling machine or device; Translations: [Dependence on other enabling machines and devices] Onset: 06-19-2024 06-19-2024 Chronic Residual codes; unclassified (1 source) Acquired absence of other specified parts of digestive tract; Translations: [ACQ ABSENCE OTH PART DIGESTV TRACT] Onset: 08-29-2022 Episodic Residual codes; unclassified (20 sources) Bilateral lower limb edema; Translations: [Localized edema] Onset: 06-06-2023 07-19-2023 Episodic Skin and subcutaneous tissue infections (20 sources) Cellulitis of lower leg; Translations: [Cellulitis of left lower limb] Onset: 06-06-2023 06-06-2023 Episodic Sprains and strains (6 sources) Strain of left Achilles tendon, initial encounter; Translations: [Strain of muscle, fascia and tendon at neck level, initial encounter] Onset: 12-14-2021 Episodic Thyroid disorders (20 sources) Hypothyroidism, unspecified; Translations: [Thyroid nodule] Onset: 08-29-2022 07-19-2023 Chronic Unclassified (1 source) Pure hypercholesterolemia, unspecified / E78.00(ICD-9) Onset: 08-23-2017 Unclassified (1 source) Athscl heart disease of [place] coronary artery w/o ang pctrs / I25.10(ICD-9) [...] syndrome] Onset: 02-06-2024 02-06-2024 Episodic Mood disorders (13 sources) Mood disorders Onset: 06-19-2024 06-19-2024 Nutritional deficiencies (16 sources) Vitamin deficiency; Translations: [Vitamin deficiency, unspecified] [...] 06-12-2023 06-12-2023 Episodic Other lower respiratory disease (19 sources) Cough; Translations: [Acute cough] Onset: 06-12-2023 [...] Chronic Other nutritional; endocrine; and metabolic disorders (16 sources) Obesity caused by energy imbalance; Translations: [...] B (Bld) [Mass/Vol] 50 pg/mL Normal <=100 [facility] Comment on above: Performed By: #### C BCA, BMP #### [facility] ([id number]) [address], [address] [place] [address] BASIC METABOLIC PANELon - Anion gap [Moles/Vol] 9 mmol/L Normal 5-15 [facility] Comment on above: Performed By: #### C BCA, BMP #### [facility] ([id number]) [address], [address] [place] [address] Calcium [Mass/Vol] 9.3 mg/dL Normal 8.5-10.5 [facility] Comment on above: Performed By: #### C BCA, BMP #### [facility] ([id number]) [address], [address] [place] [address] Chloride [Moles/Vol] 99 mmol/L Normal 98-109 [facility] Comment on above: Performed By: #### C BCA, BMP #### [facility] ([id number]) [address], [address] [place] [address] CO2 [Moles/Vol] 29 mmol/L Normal 22-32 [facility] Comment on above: Performed By: #### C BCA, BMP #### [facility] ([id number]) [address], [address] [place] [address] Creatinine [Mass/Vol] 1.31 mg/dL High 0.70-1.20 [facility] Comment on above: Result Comment: METH OD TRACEABLE TO IDMS STANDARD Performed By: #### C BCA, BMP #### [facility] ([id number]) [address], [address] [place] [address] GFR/1.73 sq M.predicted among non-blacks MDRD (S/P/Bld) [Vol rate/Area] 62 mL/min/{1.73_m2} Normal >=60 [facility] Comment on above: Result Comment: eGFR not reported due to non-numeric value for Creatinine. Reported eGFR is based on the CKD-EPI 2020 equation that does not use a race coefficient. Performed By: #### C BCA, BMP #### [facility] ([id number]) [address], [address] [place] [address] Glucose [Mass/Vol] 156 mg/dL High 65-99 [facility] Comment on above: Performed By: #### C BCA, BMP #### [facility] ([id number]) [address], [address] [place] [address] Potassium [Moles/Vol] 3.9 mmol/L Normal 3.5-5.0 [facility] Comment on above: Performed By: #### C BCA, BMP #### [facility] ([id number]) [address], [address] [place] [address] Sodium [Moles/Vol] 137 mmol/L Normal 134-146 [facility] Comment on above: Performed By: #### C BCA, BMP #### [facility] ([id number]) [address], [address] [place] [address] Urea nitrogen [Mass/Vol] 26 mg/dL Normal 5-27 [facility] Comment on above: Performed By: #### C LATIA, BMP #### [facility] ([id number]) [address] [place] [address] CBC WITH AUTO DIFFERENTIALon 01-25-2025 BASOPHILS ABSOLUTE COUNT (10*3/UL) BY AUTOMATED COUNT 0.0 10*3/uL Normal 0.0-0.2 [facility] Comment on above: Performed By: #### C LATIA, BMP #### [facility] ([id number]) [address], [address] [place] [address] BASOPHILS RELATIVE PERCENT BY AUTOMATED COUNT 0.4 % Normal [facility] Comment on above: Performed By: #### C LATIA, BMP #### [facility] ([id number]) [address], [address] [place] [address] CELLAVISION DIFFERENTIAL TYPE AUTOMATED DIFFERENTIAL Normal [facility] Comment on above: Performed By: #### C LATIA, BMP #### [facility] ([id number]) [address], [address] [place] [address] Eosinophils (Bld) [#/Vol] 0.1 10*3/uL Normal 0.0-0.4 [facility] Comment on above: Performed By: #### C LATIA, BMP #### [facility] ([id number]) [address], [address] [place] [address] EOSINOPHILS RELATIVE PERCENT BY AUTOMATED COUNT 1.7 % Normal [facility] Comment on above: Performed By: #### C LATIA, BMP #### [facility] ([id number]) [address] [address] [address] [place] [address] Erythrocyte distribution width (RBC) [Ratio] 13.3 % Normal 11.5-15 [facility] Comment on above: Performed By: #### C LATIA, BMP #### [facility] ([id number]) [address] [place] [address] Hematocrit (Bld) [Volume fraction] 47.0 % Normal 39-50 [facility] Comment on above: Performed By: #### C LATIA, BMP #### [facility] ([id number]) [address], [address] [place] [address] Hemoglobin (Bld) [Mass/Vol] 16.0 g/dL Normal 13-17 [facility] Comment on above: Performed By: #### C LATIA, BMP #### [facility] ([id number]) [address], [facility] [address] [place] [address] LYMPHOCYTES ABSOLUTE COUNT (10*3/UL) BY AUTOMATED COUNT 1.3 10*3/uL Normal 1.0-3.5 [facility] Comment on above: Performed By: #### C LATIA, BMP #### [facility] ([id number]) [address], [address] [place] [address] LYMPHOCYTES RELATIVE PERCENT BY AUTOMATED COUNT 15.3 % Normal [facility] Comment on above: Performed By: #### C LATIA, BMP #### [facility] ([id number]) [address], [address] [place] [address] MCH (RBC) [Entitic mass] 31.6 pg Normal 27-34 [facility] Comment on above: Performed By: #### C LATIA, BMP #### [facility] ([id number]) [address], [address] [place] [address] MCHC (RBC) [Mass/Vol] 34.1 g/dL Normal 32-36 [facility] Comment on above: Performed By: #### C BCA, BMP #### [facility] ([id number]) [address], [address] [place] [address] MCV (RBC) [Entitic vol] 93 fL Normal 80-100 [facility] Comment on above: Performed By: #### C BCA, BMP #### [facility] ([id number]) [address], [address] [place] [address] MONOCYTES ABSOLUTE COUNT (10*3/UL) BY AUTOMATED COUNT 0.8 10*3/uL Normal 0.0-0.9 [facility] Comment on above: Performed By: #### C LATIA, BMP #### [facility] ([id number]) [address], [address] [place] [address] MONOCYTES RELATIVE PERCENT BY AUTOMATED COUNT 9.7 % Normal [facility] Comment on above: Performed By: #### C LATIA, BMP #### [facility] ([id number]) [address], [address] [place] [address] NEUTROPHILS ABSOLUTE COUNT BY AUTOMATED COUNT 6.3 10*3/uL Normal 1.5-6.6 [facility] Comment on above: Performed By: #### Alhaji JEFFERY, BMP #### [facility] ([id number]) [address], [address] [place] [address] NEUTROPHILS RELATIVE PERCENT BY AUTOMATED COUNT 72.9 % Normal [facility] Comment on above: Performed By: #### C LATIA, BMP #### [facility] ([id number]) [address], [address] [place] [address] Platelet mean volume (Bld) [Entitic vol] 8.4 fL Normal 7-12 [facility] Comment on above: Performed By: #### C LATIA, BMP #### [facility] ([id number]) [address], [address] [place] [address] Platelets (Bld) [#/Vol] 298 10*3/uL Normal 150-450 [facility] Comment on above: Performed By: #### C LATIA, BMP #### [facility] ([id number]) [address], [address] [place] [address] RBC COUNT 5.07 X10E12/L Normal 4.1-5.7 [facility] Comment on above: Performed By: #### C BCA, BMP #### [facility] ([id number]) [address], [address] [place] [address] WBC (Bld) [#/Vol] 8.7 10*3/uL Normal 4-11 [facility] Comment on above: Performed By: #### C BCA, BMP #### [facility] ([id number]) [address], [address] [place] [address] BASIC METABOLIC PANELon 07-1 8-2024 Anion gap [Moles/Vol] 11 mmol/L Normal 5-15 [facility] Comment on above: Performed By: #### B MP #### [facility] ([facility]) [address] [place] [address] VIR Calcium [Mass/Vol] 9.3 mg/dL Normal 8.5-10.5 [facility] Comment on above: Performed By: #### B MP #### [facility] ([facility]) [address] [place] [address] VIR Chloride [Moles/Vol] 97 mmol/L Low 98-109 [facility] Comment on above: Performed By: #### B MP #### [facility] ([facility]) [address] [place] [address] VIR CO2 [Moles/Vol] 27 mmol/L Normal 22-32 [facility] Comment on above: Performed By: #### B MP #### [facility] ([facility]) [address] [place] [address] VIR Creatinine [Mass/Vol] 1.25 mg/dL Normal 0.60-1.30 [facility] Comment on above: Result Comment: METH OD TRACEABLE TO IDMS STANDARD Performed By: #### B MP #### [facility] ([facility]) [address] [place] [address] VIR GFR/1.73 sq M.predicted among non-blacks MDRD (S/P/Bld) [Vol rate/Area] 66 mL/min/{1.73_m2} Normal >=60 [facility] Comment on above: Result Comment: Repo rted eGFR is based on the CKD-EPI 2020 equation that does not use a race coefficient. Performed By: #### B MP #### [facility] ([facility]) [address] [place] [address] VIR Glucose [Mass/Vol] 112 mg/dL High 65-99 [facility] Comment on above: Performed By: #### B MP #### [facility] ([facility]) [address] [place] [address] VIR Potassium [Moles/Vol] 4.3 mmol/L Normal 3.5-5.0 [facility] Comment on above: Performed By: #### B MP #### [facility] ([facility]) [address] [place] [address] VIR Sodium [Moles/Vol] 135 mmol/L Normal 134-146 [facility] Comment on above: Performed By: #### B MP #### [facility] ([facility]) [address] [place] [address] VIR Urea nitrogen [Mass/Vol] 20 mg/dL Normal 5-27 [facility] Comment on above: Performed By: #### B MP #### [facility] ([facility]) [address] [place] [address] VIR CBC W Auto Differential pane l (Bld)on 01-02-2025 ABSOLUTE BASOPHIL 0.1 10*3/uL 0.0 - 0.2 10*3/uL [facility] Basophils/100 WBC (Bld) 1 % [facility] DIFFERENTIAL TYPE AUTOMATED DIFFERENTIAL [facility] Comment on above: PERFORMED AT [facility] [address],[place] [address] Eosinophils (Bld) [#/Vol] 0.1 10*3/uL 0.0 - 0.4 10*3/uL [facility] Eosinophils/100 WBC (Bld) 1.5 % [facility] Erythrocyte distribution width (RBC) [Ratio] 13.6 % 11.5 - 15 % [facility] Hematocrit (Bld) [Volume fraction] 48.6 % 39 - 50 % [facility] Hemoglobin (Bld) [Mass/Vol] 16.1 g/dL 13 - 17 g/dL [facility] Interpretation and review of laboratory results Abnormal [facility] Lymphocytes (Bld) [#/Vol] 1.4 10*3/uL 1.0 - 3.5 10*3/uL [facility] Lymphocytes/100 WBC (Bld) 14.7 % [facility] MCH (RBC) [Entitic mass] 31.5 pg 27 - 34 pg [facility] MCHC (RBC) [Mass/Vol] 33.2 g/dL 32 - 36 g/dL [facility] MCV (RBC) [Entitic vol] 95 fL 80 - 100 fL [facility] Monocytes (Bld) [#/Vol] 0.7 10*3/uL 0.0 - 0.9 10*3/uL [facility] Monocytes/100 WBC (Bld) 7.6 % [facility] Neutrophils (Bld) [#/Vol] 7 10*3/uL High 1.5 - 6.6 10*3/uL [facility] Neutrophils/100 WBC (Bld) 75.2 % [facility] Platelet mean volume (Bld) [Entitic vol] 9 fL 7 - 12 fL [facility] Platelets (Bld) [#/Vol] 297 10*3/uL [facility] RBC (Bld) [#/Vol] 5.11 10*6/uL [facility] WBC corrected for nucl RBC Auto (Bld) [#/Vol] 9.4 [facility] CBC WITH AUTO DIFFERENTIALon 01-02-2025 BASOPHILS ABSOLUTE COUNT (10*3/UL) BY AUTOMATED COUNT 0.1 10*3/uL Normal 0.0-0.2 [facility] Comment on above: Performed By: #### C BCA #### [facility] ([facility]) [address] [place] [address] VIR BASOPHILS RELATIVE PERCENT BY AUTOMATED COUNT 1.0 % Normal [facility] Comment on above: Performed By: #### C BCA #### [facility] ([facility]) [address] [place] [address] VIR CELLAVISION DIFFERENTIAL TYPE AUTOMATED DIFFERENTIAL Normal [facility] Comment on above: Performed By: #### C BCA #### [facility] ([facility]) [address] [place] [address] VIR Eosinophils (Bld) [#/Vol] 0.1 10*3/uL Normal 0.0-0.4 [facility] Comment on above: Performed By: #### C BCA #### [facility] ([facility]) [address] [place] [address] VIR EOSINOPHILS RELATIVE PERCENT BY AUTOMATED COUNT 1.5 % Normal [facility] Comment on above: Performed By: #### C BCA #### [facility] ([facility]) [address] [place] [address] VIR Erythrocyte distribution width (RBC) [Ratio] 13.6 % Normal 11.5-15 [facility] Comment on above: Performed By: #### C BCA #### [facility] ([facility]) [address] [place] [address] VIR Hematocrit (Bld) [Volume fraction] 48.6 % Normal 39-50 [facility] Comment on above: Performed By: #### C BCA #### [facility] ([facility]) [address] [place] [address] VIR Hemoglobin (Bld) [Mass/Vol] 16.1 g/dL Normal 13-17 [facility] Comment on above: Performed By: #### C BCA #### [facility] ([facility]) [address] [place] [address] VIR LYMPHOCYTES ABSOLUTE COUNT (10*3/UL) BY AUTOMATED COUNT 1.4 10*3/uL Normal 1.0-3.5 [facility] Comment on above: Performed By: #### C BCA #### [facility] ([facility]) [address] [place] [address] VIR LYMPHOCYTES RELATIVE PERCENT BY AUTOMATED COUNT 14.7 % Normal [facility] Comment on above: Performed By: #### C BCA #### [facility] ([facility]) [address] [place] [address] VIR MCH (RBC) [Entitic mass] 31.5 pg Normal 27-34 [facility] Comment on above: Performed By: #### C BCA #### [facility] ([facility]) [address] [place] [address] VIR MCHC (RBC) [Mass/Vol] 33.2 g/dL Normal 32-36 [facility] Comment on above: Performed By: #### C BCA #### [facility] ([facility]) [address] [place] [address] VIR MCV (RBC) [Entitic vol] 95 fL Normal 80-100 [facility] Comment on above: Performed By: #### C BCA #### [facility] ([facility]) [address] [place] [address] VIR MONOCYTES ABSOLUTE COUNT (10*3/UL) BY AUTOMATED COUNT 0.7 10*3/uL Normal 0.0-0.9 [facility] Comment on above: Performed By: #### C BCA #### [facility] ([facility]) [address] [place] [address] VIR MONOCYTES RELATIVE PERCENT BY AUTOMATED COUNT 7.6 % Normal [facility] Comment on above: Performed By: #### C BCA #### [facility] ([facility]) [address] [place] [address] VIR NEUTROPHILS ABSOLUTE COUNT BY AUTOMATED COUNT 7.0 10*3/uL High 1.5-6.6 [facility] Comment on above: Performed By: #### C BCA #### [facility] ([facility]) [address] [place] [address] VIR NEUTROPHILS RELATIVE PERCENT BY AUTOMATED COUNT 75.2 % Normal [facility] Comment on above: Performed By: #### C BCA #### [facility] ([facility]) [address] [place] [address] VIR Platelet mean volume (Bld) [Entitic vol] 9.0 fL Normal 7-12 [facility] Comment on above: Performed By: #### C BCA #### [facility] ([facility]) [address] [place] [address] VIR Platelets (Bld) [#/Vol] 297 10*3/uL Normal 150-450 [facility] Comment on above: Performed By: #### C BCA #### [facility] ([facility]) [address] [place] [address] VIR RBC COUNT 5.11 X10E12/L Normal 4.1-5.7 [facility] Comment on above: Performed By: #### C BCA #### [facility] ([facility]) [address] [place] [address] VIR WBC (Bld) [#/Vol] 9.4 10*3/uL Normal 4-11 [facility] Comment on above: Performed By: #### C BCA #### [facility] ([facility]) [address] [place] [address] VIR COMPREHENSIVE METABOLIC PANE Bharath 09-17-2024 Albumin [Mass/Vol] 4.2 g/dL Normal 3.2-5.3 [facility] Comment on above: Performed By: #### [place] MP, 79353-8, 12324-7, FTPSA, THYR, 87606-1 #### [facility] ([id number]) [address], [address] [place] [address] ALP [Catalytic activity/Vol] 111 U/L Normal 39-130 [facility] Comment on above: Performed By: #### C MP, 59972-0, 39274-1, FTPSA, THYR, 07157-4 #### [facility] ([id number]) [address], [address] [place] [address] ALT [Catalytic activity/Vol] 20 U/L Normal 0-40 [facility] Comment on above: Performed By: #### C MILANA, 67633-3, 99965-0, FTPSA, THYR, 15503-8 #### [facility] ([id number]) [address], [address] [place] [address] Anion gap [Moles/Vol] 11 mmol/L Normal 5-15 [facility] Comment on above: Performed By: #### C MILANA, 70867-4, , FTPSA, THYR, 19297-0 #### [facility] ([id number]) [address], [address] [place] [address] AST [Catalytic activity/Vol] 16 U/L Normal 0-41 [facility] Comment on above: Performed By: #### C MILANA, 06275-4, , FTPSA, THYR, 23709-2 #### [facility] ([id number]) [address], [address] [place] [address] Bilirubin [Mass/Vol] 0.8 mg/dL Normal 0.3-1.2 [facility] Comment on above: Performed By: #### C MILANA, 19466-9, , FTPSA, THYR, 28758-4 #### [facility] ([id number]) [address], [address] [place] [address] Calcium [Mass/Vol] 9.3 mg/dL Normal 8.5-10.5 [facility] Comment on above: Performed By: #### C MILANA, 22123-0, , FTPSA, THYR, 71556-8 #### [facility] ([id number]) [address], [address] [place] [address] Chloride [Moles/Vol] 98 mmol/L Normal 98-109 [facility] Comment on above: Performed By: #### C MILAAN, 79368-5, 26906-2, FTPSA, THYR, 83397-7 #### [facility] ([id number]) [address], [address] [place] [address] CO2 [Moles/Vol] 28 mmol/L Normal 22-32 [facility] Comment on above: Performed By: #### C MILANA, 82219-6, 84202-2, FTPSA, THYR, 94343-2 #### [facility] ([id number]) [address], [address] [place] [address] Creatinine [Mass/Vol] 1.26 mg/dL Normal 0.60-1.30 [facility] Comment on above: Result Comment: METH OD TRACEABLE TO IDMS STANDARD Performed By: #### C MILANA, 98094-8, , FTPSA, THYR, 76155-2 #### [facility] ([id number]) [address], [address] [place] [address] GFR/1.73 sq M.predicted among non-blacks MDRD (S/P/Bld) [Vol rate/Area] 65 mL/min/{1.73_m2} Normal >59 [facility] Comment on above: Result Comment: Reported eGFR is based on the CKD-EPI 2020 equation that does not use a race coefficient. Performed By: #### C MILANA, 42834-2, , FTPSA, THYR, 40025-4 #### [facility] ([id number]) [address], [address] [place] [address] Glucose [Mass/Vol] 105 mg/dL High 65-99 [facility] Comment on above: Performed By: #### C MILANA, 54623-9, 34405-5, FTPSA, THYR, 60967-0 #### [facility] ([id number]) [address], [address] [place] [address] Potassium [Moles/Vol] 4.2 mmol/L Normal 3.5-5.0 [facility] Comment on above: Performed By: #### C MP, 03450-7, 91419-6, FTPSA, THYR, 16220-7 #### [facility] ([id number]) [address], [address] [place] [address] Protein [Mass/Vol] 7.2 g/dL Normal 6.0-8.0 [facility] Comment on above: Performed By: #### C MILANA, 14357-6, 91564-1, FTPSA, THYR, 24958-1 #### [facility] ([id number]) [address], [address] [place] [address] Sodium [Moles/Vol] 137 mmol/L Normal 134-146 [facility] Comment on above: Performed By: #### C MILANA, 28831-6, 17787-3, FTPSA, THYR, 17933-2 #### [facility] ([id number]) [address] [address] [place] [address] Urea nitrogen [Mass/Vol] 20 mg/dL Normal 5-27 [facility] Comment on above: Performed By: #### C MP, 74230-7, 04128-2, FTPSA, THYR, 04356-3 #### [facility] ([id number]) [address], [address] [place] [address] FREE AND TOTAL PSAon 025 % FREE PSA 23.0 Normal [facility] Comment on above: Result Comment: Percent [...] and BPH. Performed By: #### C MILANA, 85104-5, 55928-2, FTPSA, THYR, 46192-3 #### [facility] ([id number]) [address], [facility] [address] [place] [address] FREE PSA 0.29 ng/mL Normal [facility] Comment on above: Performed By: #### Alhaji CORTÉS, 81973-5, 73594-1, FTPSA, THYR, 98163-9 #### [facility] ([id number]) [address], [facility] [address] [place] [address] PROSTATIC SPEC ANT 1.26 ng/mL Normal 0.00-4.00 [facility] Comment on above: Result Comment: The method used for this test is Carleen [place] DXI chemiluminescent immunoassay. Values obtained by different assay methods cannot be used interchangeably. Performed By: #### Alhaji CORTÉS, 63434-6, 38114-8, FTPSA, THYR, 31549-6 #### [facility] ([id number]) [address], [facility] [address] [place] [address] Lipid 1996 panelon 5 Cholesterol [Mass/Vol] 124 mg/dL Low 150-200 [facility] Comment on above: Performed By: #### Alhaji CORTÉS, 04363-0, 61432-6, FTPSA, THYR, 01187-5 #### [facility] ([id number]) [address] [address] [place] [address] Cholesterol in HDL [Mass/Vol] 44 mg/dL Normal >39 [facility] Comment on above: Result Comment: HDL <40 mg/dL - High Risk HDL > or = 40mg/dL- Desirable HDL >60 mg/dL - Negative Risk Performed By: #### Alhaji CORTÉS, 85164-1, 77667-3, FTPSA, THYR, 36485-6 #### [facility] ([id number]) [address] [place] [address] Cholesterol in LDL [Mass/Vol] 48 mg/dL Normal <130 [facility] Comment on above: Result Comment: LDL <100 mg/dL - Desirable LDL >160 mg/dL - High Risk Performed By: #### Alhaji CORTÉS, 95005-1, 15491-6, FTPSA, THYR, 14432-7 #### [facility] ([id number]) [address] [place] [address] Cholesterol in VLDL [Mass/Vol] 32 mg/dL High 0-30 [facility] Comment on above: Performed By: #### Alhaji CORTÉS, 18592-1, 76178-2, FTPSA, THYR, 48276-9 #### [facility] ([id number]) [address], [address] [place] [address] CHOLESTEROL:HDL 2.8 Normal 1.0-5.0 [facility] Comment on above: Performed By: #### Alhaji CORTÉS, 53449-9, 44600-0, FTPSA, THYR, 56307-5 #### [facility] ([id number]) [address], [address] [place] [address] Triglyceride [Mass/Vol] 162 mg/dL High 27-150 [facility] Comment on above: Performed By: #### Alhaji CORTÉS, 94410-9, 91351-5, FTPSA, THYR, 33366-4 #### [facility] ([id number]) [address], [address] [place] [address] MAGNESIUMon 09-17-2024 Magnesium [Mass/Vol] 2.1 mg/dL Normal 1.8-2.6 [facility] Comment on above: Performed By: #### C MP, 72499-0, 89626-6, FTPSA, THYR, 58735-6 #### [facility] ([id number]) [address], [address] [place] [address] THYROID PROFILEon 09-17-2024 Free T4 [Mass/Vol] 1.13 ng/dL Normal 0.61-1.60 [facility] Comment on above: Performed By: #### C MP, 00019-1, 40335-4, FTPSA, THYR, 88755-6 #### [facility] ([id number]) [address], [address] [place] [address] TSH 1.01 uIU/mL Normal 0.49-4.67 [facility] Comment on above: Performed By: #### C MP, 20571-9, 39375-3, FTPSA, THYR, 30595-6 #### [facility] ([id number]) [address], [address] [place] [address] Vitamin D+Metabolites [Mass/ Vol]on 09-17-2024 VITAMIN D 25 HYD TOT 24.0 ng/mL Low 30-100 [facility] Comment on above: Result Comment: Vitamin D status 25 [place] Vitamin D Deficiency <20 ng/mL Insufficiency 20-29 ng/mL Sufficiency 30-100 ng/mL Toxicity >100 ng/mL NOTE: A pediatric reference range has not been established by the distribution engineer of this kit. The [employer] recommends a Vitamin D level of = or >20ng/mL in infants and children. Performed By: #### C MP, 53796-3, 17453-3, FTPSA, THYR, 58203-0 #### [facility] ([id number]) [address] [place] [address] HbA1c (Bld) [Mass fraction]o n 06-19-2024 Interpretation and review of laboratory results Normal [facility] - Hematology and Cell countson 06-19-2024 HbA1c (Bld) [Mass fraction] 5.90 % [facility] BASIC METABOLIC PANLon 05-28 Anion gap [Moles/Vol] 7 mmol/L Normal 5-15 [facility] Comment on above: Performed By: #### C BCA, BMP #### [facility] ([id number]) [address] [place] [address] Calcium [Mass/Vol] 9.1 mg/dL Normal 8.5-10.5 [facility] Comment on above: Performed By: #### C BCA, BMP #### [facility] ([id number]) [address], [address] [place] [address] Chloride [Moles/Vol] 100 mmol/L Normal 98-109 [facility] Comment on above: Performed By: #### C BCA, BMP #### [facility] ([id number]) [address], [address] [place] [address] CO2 [Moles/Vol] 31 mmol/L Normal 22-32 [facility] Comment on above: Performed By: #### C BCA, BMP #### [facility] ([id number]) [address], [address] [place] [address] Creatinine [Mass/Vol] 1.34 mg/dL High 0.60-1.30 [facility] Comment on above: Result Comment: METH OD TRACEABLE TO IDMS STANDARD Performed By: #### C BCA, BMP #### [facility] ([id number]) [address] [address] GFR/1.73 sq M.predicted among non-blacks MDRD (S/P/Bld) [Vol rate/Area] 61 mL/min/{1.73_m2} Normal >59 [facility] Comment on above: Result Comment: Reported eGFR is based on the CKD-EPI 2020 equation that does not use a race coefficient. Performed By: #### C BCA, BMP #### [facility] ([id number]) [address] [address] Glucose [Mass/Vol] 112 mg/dL High 65-99 [facility] Comment on above: Performed By: #### C BCA, BMP #### [facility] ([id number]) [address] [address] Potassium [Moles/Vol] 4.4 mmol/L Normal 3.5-5.0 [facility] Comment on above: Performed By: #### C BCA, BMP #### [facility] ([id number]) [address] [address] Sodium [Moles/Vol] 138 mmol/L Normal 134-146 [facility] Comment on above: Performed By: #### C BCA, BMP #### [facility] ([id number]) [address] [address] Urea nitrogen [Mass/Vol] 20 mg/dL Normal 5-23 [facility] Comment on above: Performed By: #### C BCA, BMP #### [facility] ([id number]) [address] [address] CBC AND AUTO DIFFon 05-28-20 24 ABSOLUTE BASOPHIL 0.1 X10E9/L Normal 0.0-0.2 [facility] Comment on above: Performed By: #### C BCA, BMP #### [facility] ([id number]) [address] [address] ABSOLUTE NEUTROPHIL 6.3 X10E9/L Normal 1.5-6.6 [facility] Comment on above: Performed By: #### C LATIA, BMP #### [facility] ([id number]) [address], [facility] [facility] [address] [place] [address] Basophils/100 WBC (Bld) 0.9 % Normal [facility] Comment on above: Performed By: #### C LATIA, BMP #### [facility] ([id number]) [address] [address] [place] [address] Eosinophils (Bld) [#/Vol] 0.1 10*3/uL Normal 0.0-0.4 [facility] Comment on above: Performed By: #### C LATIA, BMP #### [facility] ([id number]) [address] [address] [place] [address] Eosinophils/100 WBC (Bld) 1.4 % Normal [facility] Comment on above: Performed By: #### C LATIA, BMP #### [facility] ([id number]) [address], [facility] [address] [place] [address] Erythrocyte distribution width (RBC) [Ratio] 13.6 % Normal 11.5-15.0 [facility] Comment on above: Performed By: #### C LATIA, BMP #### [facility] ([id number]) [address] [address] [place] [address] Hematocrit (Bld) [Volume fraction] 46.4 % Normal 39-49 [facility] Comment on above: Performed By: #### C LATIA, BMP #### [facility] ([id number]) [address] [address] [place] [address] Hemoglobin (Bld) [Mass/Vol] 15.8 g/dL Normal 13.0-17.0 [facility] Comment on above: Performed By: #### C LATIA, BMP #### [facility] ([id number]) [address], [address] [place] [address] Lymphocytes (Bld) [#/Vol] 1.4 10*3/uL Normal 1.0-3.5 [facility] Comment on above: Performed By: #### C LATIA, BMP #### [facility] ([id number]) [address], [address] [place] [address] Lymphocytes/100 WBC (Bld) 16.4 % Normal [facility] Comment on above: Performed By: #### C LATIA, BMP #### [facility] ([id number]) [address], [facility] [address] [place] [address] MCH (RBC) [Entitic mass] 32.2 pg Normal 27-34 [facility] Comment on above: Performed By: #### C LATIA, BMP #### [facility] ([id number]) [address], [address] [place] [address] MCHC (RBC) [Mass/Vol] 34.0 g/dL Normal 32-36 [facility] Comment on above: Performed By: #### C LATIA, BMP #### [facility] ([id number]) [address], [address] [place] [address] MCV (RBC) [Entitic vol] 95 fL Normal 80-100 [facility] Comment on above: Performed By: #### C LATIA, BMP #### [facility] ([id number]) [address], [address] [place] [address] Monocytes (Bld) [#/Vol] 0.8 10*3/uL Normal 0-0.9 [facility] Comment on above: Performed By: #### C BCA, BMP #### [facility] ([id number]) [address], [address] [place] [address] Monocytes/100 WBC (Bld) 9.5 % Normal [facility] Comment on above: Performed By: #### C LATIA, BMP #### [facility] ([id number]) [address], [address] [place] [address] Neutrophils/100 WBC (Bld) 71.8 % Normal [facility] Comment on above: Performed By: #### C LATIA, BMP #### [facility] ([id number]) [address], [address] [place] [address] Platelet mean volume (Bld) [Entitic vol] 9.1 fL Normal 7-12 [facility] Comment on above: Performed By: #### C LATIA, BMP #### [facility] ([id number]) [address], [address] [place] [address] Platelets (Bld) [#/Vol] 272 10*3/uL Normal 150-450 [facility] Comment on above: Performed By: #### C LATIA, BMP #### [facility] ([id number]) [address], [address] [place] [address] RBC COUNT 4.89 X10E12/L Normal 4.10-5.70 [facility] Comment on above: Performed By: #### C BCA, BMP #### [facility] ([id number]) [address], [address] [place] [address] WBC (Bld) [#/Vol] 8.8 10*3/uL Normal 4.0-11.0 [facility] Comment on above: Performed By: #### C LATIA, BMP #### [facility] ([id number]) [address], [address] [place] [address] Natriuretic peptide B [Mass/ Vol]on 01-21-2024 Natriuretic peptide B (Bld) [Mass/Vol] 47 pg/mL NINF - 100.0 pg/mL [facility] POCT EKGon 07-26-2023 [facility] Covid-19 PCR (CVDTBH)on 10-16 SARS-CoV-2 (COVID-19) RNA PILI+probe Ql (Unsp spec) Not detected Normal NOT DETECTED [facility] Comment on above: Performed By: #### C VDTB #### [facility] [address] [address] [address] Jersey Butcher INFLUENZA A AND B AGon 10-26 INFLUANEGH SEE BELOW Normal [facility] Comment on above: Result Comment: Nega tive for Flu A protein angiten. Infection due to Flu A cannot be ruled out. Flu A angiten in the sample may be below the detection limit of the test. Performed By: #### T SH, BNP, HSTROPN, CMP #### [facility] [address] [place] [address] Dr. Jersey Butcher INFLUBNEG SEE BELOW Normal [facility] Comment on above: Result Comment: Nega tive for Flu B protein antigen. Infection due to Flu B cannot be ruled out. Flu B antigen in the sample may be below the detection limit of the test. Performed By: #### T SH, BNP, HSTROPN, CMP #### [facility] [address] [address] [address] Jersey Butcher INFLUENZA A AG Negative Normal NEGATIVE SEE COMMENT [facility] Comment on above: Performed By: #### T SH, BNP, HSTROPN, CMP #### [facility] [address] [place] [address] Dr. Jersey Butcher INFLUENZA B AG Negative Normal NEGATIVE SEE COMMENT [facility] Comment on above: Performed By: #### T SH, BNP, HSTROPN, CMP #### [facility] [address] [place] [address] Dr. Jersey Butcher SYMPTOMATIC COVID-19 ANTIGEN on 10-26-2022 EUA Statement SEE BELOW Normal [facility] Comment on above: Result Comment: This [...] sooner. Performed By: #### C VDTB #### [facility] [address] [place] [address] Dr. Jersey Butcher SARS-CoV-2 (COVID-19) RNA PILI+probe Ql (Unsp spec) Negative Normal NEGATIVE [facility] Comment on above: Performed By: #### C VDTBH #### [facility] [address] [place] [address] Dr. Jersey Butcher [facility] CARDIAC STRESS/REST INJE CTIONon 10-02-2022 [facility] CARDIAC STRESS/REST INJECTION Patient Name: ELYSE DUONG STUDY: MYOCARDIAL PERFUSION STRESS TEST WITH LEXISCAN Performing facility: [facility], [address] [place] [address], [address], [address] Provider: Tequila Jaffe MD, FACC PCP: Dr. Tristen Terrell Supervising provider: Mary Julien MD, FACC INDICATION: DOT physical I25.10: CAD S/P percutaneous coronary angioplasty Z98.61 HISTORY: Gender: M; Age: 57 y/o ; Height: 0 cm; Weight: 154.551043 kg. CAD; High Cholesterol; HTN; Previous TX; Arrhythmias; AFib Quit smoking 10 years ago. Cardiac catheterization 2012. PTCA on RCA. COMPARISON: No comparison. ACCESSION NUMBER(S): [id number]; [id number] ORDERING CLINICIAN: TEQUILA JAFFE TECHNIQUE: TWO DAY [...] Electronically signed by: MADISON BLANCO MD Normal [facility] No Panel Informationon 10-02 Normal [facility] [address] DO Work Phone: HEMOGLOBINon 09-15-2022 Hemoglobin (Bld) [Mass/Vol] 14.3 g/dL Normal 14.0-18.[address] [facility] Comment on above: Performed By: #### T SH, BNP, HSTROPN, CMP #### [facility] [address] [address] [address] Jersey Butcher Covid-19 PCR (CVDTB)on 08-16 SARS-CoV-2 (COVID-19) RNA PILI+probe Ql (Unsp spec) Not detected Normal NOT DETECTED [facility] Comment on above: Result Comment: When [...] for this test is supported by the Ear Nose Throat Physician of Health and Human Service's declaration that [...] #### T SH, BNP, HSTROPN, CMP #### [facility] [address] [address] [address] Jersey Butcher GROUP A STREP CULTUREon 08-16 S. pyogenes Ag Ql (Unsp spec) Culture Observations: NEGATIVE FOR GROUP A STREPTOCOCCUS. Normal [facility] Comment on above: Performed By: #### T SH, BNP, HSTROPN, CMP #### [facility] [address] [address] [address] Jersey Butcher STREPT SCREENon 08-27-2022 STREP SCREEN A Negative Normal NEGATIVE [facility] Comment on above: Performed By: #### T SH, BNP, HSTROPN, CMP #### [facility] [address] [address] [address] Jersey Butcher XR CHEST 1 Von 08-27-2022 XR CHEST 1 V EXAM: XR CHEST 1 V HISTORY: SHORTNESS OF BREATH COMPARISON: 05/25/2022 TECHNIQUE: Frontal view of the chest. FINDINGS: No focal consolidations or pleural effusions. Cardiomegaly. Visualized osseous structures are unremarkable. IMPRESSION: No acute disease. Electronically authenticated by: LEO MARSHALL Date: 2022-08-27 14:06 Normal [facility] Office Visit (Cardiology)on 07-19-2022 Follow-up visit [...] [address] Justyn Mondragon MD. [facility] Patient to STOP Hydrochlorothiazide moving forward. [...] requested at the time of your visit. I, Enrike Orozco RN am scribing for [...] Screening.on 023 Adult depression screening assessment No [facility] [employer] DO Work Phone: Fall risk assessment a) No falls within the last year [facility] [employer] [employer] DO Work Phone: Tobacco use status CPHS b) No [facility] [employer] 305 DO Work Phone: CBC W MANUAL DIFFon 06-04-20 22 ATYPICAL LYMPH # 0.14 103/ul Normal [facility] Comment on above: Performed By: #### T SH, BNP, HSTROPN, CMP #### [facility] [address] [place] [address] Dr. Jersey Butcher ATYPICAL LYMPH % 1 % Normal [facility] Comment on above: Performed By: #### T SH, BNP, HSTROPN, CMP #### [facility] [address] [place] [address] Dr. Jersey Butcher BAND # 0.0 103/ul Normal 0.0-0.3 [facility] Comment on above: Performed By: #### T SH, BNP, HSTROPN, CMP #### [facility] [address] [place] [address] Dr. Jersey Butcher BAND % 0 % Normal 0-[address] [facility] Comment on above: Performed By: #### T SH, BNP, HSTROPN, CMP #### [facility] [address] [place] [address] Dr. Jersey Butcher BASOM # 0.00 103/ul Normal 0.00-0.[address] [facility] Comment on above: Performed By: #### T SH, BNP, HSTROPN, CMP #### [facility] [address] [address] [address] Jersey Butcher BASOM % 0.0 % Critically low 0.2-2.0 [facility] Comment on above: Performed By: #### T SH, BNP, HSTROPN, CMP #### [facility] [address] [address] [address] Jersey Butcher BLAST # Normal [facility] Comment on above: Performed By: #### T SH, BNP, HSTROPN, CMP #### [facility] [address] [address] [address] Jersey Butcher BLAST % Normal [facility] Comment on above: Performed By: #### T SH, BNP, HSTROPN, CMP #### [facility] [address] [address] [address] Jersey Butcher CORRECTED WBC Normal 4.0-11.0 [facility] Comment on above: Performed By: #### T SH, BNP, HSTROPN, CMP #### [facility] [address] [place] [address] Dr. Jersey Butcher EOS # 0.00 103/ul Normal 0.00-0.70 [facility] Comment on above: Performed By: #### T SH, BNP, HSTROPN, CMP #### [facility] [address] [place] [address] Dr. Jersey Butcher EOS% 0.0 % Critically low 0.9-7.0 [facility] Comment on above: Performed By: #### T SH, BNP, HSTROPN, CMP #### [facility] [address] [place] [address] Dr. Jersey Butcher HCT 41.3 % Critically low 42.0-54.0 [facility] Comment on above: Performed By: #### T SH, BNP, HSTROPN, CMP #### [facility] [address] [place] [address] Dr. Jersey Butcher HGB 14.2 g/dl Normal 14.0-18.0 [facility] Comment on above: Performed By: #### T SH, BNP, HSTROPN, CMP #### [facility] [address] [address] [address] Jersey Butcher LYMPHM # 0.42 103/ul Critically low 1.20-3.80 [facility] Comment on above: Performed By: #### T SH, BNP, HSTROPN, CMP #### [facility] [address] [address] [address] Jersey Butcher LYMPHM% 3.0 % Critically low 20.5-60.0 [facility] Comment on above: Performed By: #### T SH, BNP, HSTROPN, CMP #### [facility] [address] [address] [address] Jersey Butcher MCH 30.9 pg Normal 25.9-34.0 [facility] Comment on above: Performed By: #### T SH, BNP, HSTROPN, CMP #### [facility] [address] [address] [address] Jersey Butcher MCHC 34.4 g/dl Normal 29.9-35.2 [facility] Comment on above: Performed By: #### T SH, BNP, HSTROPN, CMP #### [facility] [address] [place] [address] Dr. Jersey Butcher MCV 89.8 fL Normal 80.0-94.0 [facility] Comment on above: Performed By: #### T SH, BNP, HSTROPN, CMP #### [facility] [address] [place] [address] Dr. Jersey Butcher METAMYELOCYTE # Normal [facility] Comment on above: Performed By: #### T SH, BNP, HSTROPN, CMP #### [facility] [address] [address] [address] Jersey Butcher METAMYELOCYTE % Normal [facility] Comment on above: Performed By: #### T SH, BNP, HSTROPN, CMP #### [facility] [address] [address] [address] Jersey Butcher MONOM# 0.14 103/ul Critically low 0.30-0.80 [facility] Comment on above: Performed By: #### T SH, BNP, HSTROPN, CMP #### [facility] [address] [address] [address] Jersey Butcher MONOM% 1.0 % Critically low 1.7-12.0 [facility] Comment on above: Performed By: #### T SH, BNP, HSTROPN, CMP #### [facility] [address] [address] [address] Jersey Butcher MPV 10.4 fL Normal 9.5-13.5 [facility] Comment on above: Performed By: #### T SH, BNP, HSTROPN, CMP #### [facility] [address] [address] [address] Jersey Butcher MYELOCYTE # Normal [facility] Comment on above: Performed By: #### T SH, BNP, HSTROPN, CMP #### [facility] [address] [address] [address] Jersey Butcher MYELOCYTE % Normal [facility] Comment on above: Performed By: #### T SH, BNP, HSTROPN, CMP #### [facility] [address] [place] [address] Dr. Jersey Butcher NRBC Normal [facility] Comment on above: Performed By: #### T SH, BNP, HSTROPN, CMP #### [facility] [address] [address] [address] Jersey Butcher PLT 209 103/ul Normal 150-450 [facility] Comment on above: Performed By: #### T SH, BNP, HSTROPN, CMP #### [facility] [address] [address] [address] Jersey Butcher RBC 4.60 106/ul Critically low 4.70-6.10 [facility] Comment on above: Performed By: #### T SH, BNP, HSTROPN, CMP #### [facility] [address] [address] [address] Jersey Butcher RDW 11.9 % Normal 11.0-15.0 [facility] Comment on above: Performed By: #### T SH, BNP, HSTROPN, CMP #### [facility] [address] [place] [address] Dr. Jersey Butcher SEG # 13.30 103/ul Critically high 1.40-6.50 [facility] Comment on above: Performed By: #### T SH, BNP, HSTROPN, CMP #### [facility] [address] [place] [address] Dr. Jersey Butcher SEG % 95.0 % Critically high 43.0-75.0 [facility] Comment on above: Performed By: #### T SH, BNP, HSTROPN, CMP #### [facility] [address] [place] [address] Dr. Jersey Butcher WBC 14.0 103/ul Critically high 4.0-11.0 [facility] Comment on above: Performed By: #### T SH, BNP, HSTROPN, CMP #### [facility] [address] [place] [address] Dr. Jersey Butcher PROF 14(COMP METB)on 022 Albumin [Mass/Vol] 3.0 g/dL Critically low 3.4-5.0 [facility] Comment on above: Performed By: #### T SH, BNP, HSTROPN, CMP #### [facility] [address] [place] [address] Dr. Jersey Butcher Albumin/Globulin [Mass ratio] 0.8 {ratio} Normal [facility] Comment on above: Performed By: #### T SH, BNP, HSTROPN, CMP #### [facility] [address] [place] [address] Dr. Jersey Butcher ALP [Catalytic activity/Vol] 91 U/L Normal 46-116 [facility] Comment on above: Performed By: #### T SH, BNP, HSTROPN, CMP #### [facility] [address] [place] [address] Dr. Jersey Butcher ALT [Catalytic activity/Vol] 43 U/L Normal 16-63 [facility] Comment on above: Performed By: #### T SH, BNP, HSTROPN, CMP #### [facility] [address] [address] [address] Jersey Butcher Anion gap [Moles/Vol] 8.1 mmol/L Normal [facility] Comment on above: Performed By: #### T SH, BNP, HSTROPN, CMP #### [facility] [address] [address] [address] Jersey Butcher AST [Catalytic activity/Vol] 18 U/L Normal 15-37 [facility] Comment on above: Performed By: #### T SH, BNP, HSTROPN, CMP #### [facility] [address] [place] [address] Dr. Jersey Butcher Bilirubin [Mass/Vol] 0.4 mg/dL Normal 0.2-1.0 [facility] Comment on above: Performed By: #### T SH, BNP, HSTROPN, CMP #### [facility] [address] [place] [address] Dr. Jersey Butcher Calcium [Mass/Vol] 8.4 mg/dL Critically low 8.5-10.1 [facility] Comment on above: Performed By: #### T SH, BNP, HSTROPN, CMP #### [facility] [address] [place] [address] Dr. Jersey Butcher Chloride [Moles/Vol] 94 mmol/L Critically low 98-107 [facility] Comment on above: Performed By: #### T SH, BNP, HSTROPN, CMP #### [facility] [address] [place] [address] Dr. Jersey Butcher CO2 [Moles/Vol] 33.0 mmol/L Critically high 21.0-32.0 [facility] Comment on above: Performed By: #### T SH, BNP, HSTROPN, CMP #### [facility] [address] [place] [address] Dr. Jersey Butcher Creatinine [Mass/Vol] 1.15 mg/dL Normal 0.70-1.30 [facility] Comment on above: Performed By: #### T SH, BNP, HSTROPN, CMP #### [facility] [address] [address] [address] Jersey Butcher EGFR-AF SALVADOREAN >60 Normal >=60 [facility] Comment on above: Performed By: #### T SH, BNP, HSTROPN, CMP #### [facility] [address] [address] [address] Jersey Butcher EGFR-NON AF SALVADOREAN >60 Normal >=60 [facility] Comment on above: Performed By: #### T SH, BNP, HSTROPN, CMP #### [facility] [address] [place] [address] Dr. Jersey Butcher Globulin (S) [Mass/Vol] 3.6 g/dL Normal [facility] Comment on above: Performed By: #### T SH, BNP, HSTROPN, CMP #### [facility] [address] [place] [address] Dr. Jersey Butcher Glucose [Mass/Vol] 193 mg/dL Critically high 74-[address] [facility] Comment on above: Performed By: #### T SH, BNP, HSTROPN, CMP #### [facility] [address] [place] [address] Dr. Jersey Butcher Potassium [Moles/Vol] 3.1 mmol/L Critically low 3.5-5.1 [facility] Comment on above: Performed By: #### T SH, BNP, HSTROPN, CMP #### [facility] [address] [address] [address] Jersey Butcher Protein [Mass/Vol] 6.6 g/dL Normal 6.4-8.2 [facility] Comment on above: Performed By: #### T SH, BNP, HSTROPN, CMP #### [facility] [address] [place] [address] Dr. Jersey Butcher Sodium [Moles/Vol] 132 mmol/L Critically low 136-145 [facility] Comment on above: Performed By: #### T SH, BNP, HSTROPN, CMP #### [facility] [address] [address] [address] Jersey Butcher Urea nitrogen [Mass/Vol] 22.0 mg/dL Critically high 7.0-18.0 [facility] Comment on above: Performed By: #### T SH, BNP, HSTROPN, CMP #### [facility] [address] [place] [address] Dr. Jersey Butcher Urea nitrogen/Creatinine [Mass ratio] 19.1 mg/mg Normal [facility] Comment on above: Performed By: #### T SH, BNP, HSTROPN, CMP #### [facility] [address] [place] [address] Dr. Jersey Butcher QUANTIFERON TB GOLD PLUSon 1 08-05-2021 QuantiFERON Criteria Comment Normal [facility] Comment on above: Result Comment: Prateek tiFERON-TB [...] #### T SH, BNP, HSTROPN, CMP #### [facility] [address] [place] [address] Dr. Jersey Butcher QuantiFERON Incubation Incubation performed. Normal [facility] Comment on above: Performed By: #### T SH, BNP, HSTROPN, CMP #### [facility] [address] [place] [address] Dr. Jersey Butcher QuantiFERON Mitogen Value 4.42 IU/mL Normal [facility] Comment on above: Performed By: #### T SH, BNP, HSTROPN, CMP #### [facility] [address] [place] [address] Dr. Jersey Butcher QuantiFERON Nil Value 0.00 IU/mL Normal [facility] Comment on above: Performed By: #### T SH, BNP, HSTROPN, CMP #### [facility] [address] [place] [address] Dr. Jersey Butcher QuantiFERON TB1 Ag Value 0.00 IU/mL Normal [facility] Comment on above: Performed By: #### T SH, BNP, HSTROPN, CMP #### [facility] [address] [place] [address] Dr. Jersey Butcher QuantiFERON TB2 Ag Value 0.01 IU/mL Normal [facility] Comment on above: Performed By: #### T SH, BNP, HSTROPN, CMP #### [facility] [address] [place] [address] Dr. Jersey Butcher QuantiFERON-TB Gold Plus Negative Normal Negative [facility] Comment on above: Result Comment: No r esponse to M tuberculosis antigens detected. Infection with M tuberculosis is unlikely, but high risk individuals should be considered for additional testing (ATS/IDSA/CDC Clinical Practice Guidelines, 2017). The reference range is an Antigen minus Nil result of <0.35 IU/mL. Chemiluminescence immunoassay methodology Performed By: #### T SH, BNP, HSTROPN, CMP #### [facility] [address] [place] [address] Dr. Jersey Butcher BNPon 06-03-2022 Natriuretic peptide B (Bld) [Mass/Vol] 273.0 pg/mL Normal <=900.0 [facility] Comment on above: Performed By: #### D DIM #### [facility] [address] [place] [address] Dr. Jersey Butcher CBC W MANUAL DIFFon 06-03-20 ATYPICAL LYMPH # Normal [facility] Comment on above: Performed By: #### C MADDIE #### [facility] [address] [place] [address] Dr. Jersey Butcher ATYPICAL LYMPH % Normal [facility] Comment on above: Performed By: #### C MADDIE #### [facility] [address] [place] [address] Dr. Jersey Butcher BAND # 0.0 103/ul Normal 0.0-0.3 [facility] Comment on above: Performed By: #### C MADDIE #### [facility] [address] [place] [address] Dr. Jersey Butcher BAND % 0 % Normal 0-5 [facility] Comment on above: Performed By: #### C MADDIE #### [facility] [address] [place] [address] Dr. Jersey Butcher BASOM # 0.00 103/ul Normal 0.00-0.10 [facility] Comment on above: Performed By: #### C BCROSIE #### [facility] [address] [place] [address] Dr. Jersey Butcher BASOM % 0.0 % Critically low 0.2-2.0 [facility] Comment on above: Performed By: #### C BCROSIE #### [facility] [address] [place] [address] Dr. Jersey Butcher BLAST # Normal [facility] Comment on above: Performed By: #### C MADDIE #### [facility] [address] [place] [address] Dr. Jersey Butcher BLAST % Normal [facility] Comment on above: Performed By: #### C MADDIE #### [facility] [address] [place] [address] Dr. Jersey Butcher CORRECTED WBC Normal 4.0-11.0 [facility] Comment on above: Performed By: #### C MADDIE #### [facility] [address] [place] [address] Dr. Jersey Butcher EOS # 0.00 103/ul Normal 0.00-0.70 [facility] Comment on above: Performed By: #### C BCROSIE #### [facility] [address] [place] [address] Dr. Jersey Butcher EOS% 0.0 % Critically low 0.9-7.0 [facility] Comment on above: Performed By: #### C BCROSIE #### [facility] [address] [place] [address] Dr. Jersey Butcher HCT 41.2 % Critically low 42.0-54.0 [facility] Comment on above: Performed By: #### C MADDIE #### [facility] [address] [place] [address] Dr. Jersey Butcher HGB 14.3 g/dl Normal 14.0-18.0 [facility] Comment on above: Performed By: #### C MADDIE #### [facility] [address] [place] [address] Dr. Jersey Butcher LYMPHM # 0.85 103/ul Critically low 1.20-3.80 [facility] Comment on above: Performed By: #### C MADDIE #### [facility] [address] [place] [address] Dr. Jersey Bucther LYMPHM% 7.0 % Critically low 20.5-60.0 [facility] Comment on above: Performed By: #### C MADDIE #### [facility] [address] [place] [address] Dr. Jersey Butcher MCH 31.3 pg Normal 25.9-34.0 [facility] Comment on above: Performed By: #### C MADDIE #### [facility] [address] [place] [address] Dr. Jersey Butcher MCHC 34.7 g/dl Normal 29.9-35.2 [facility] Comment on above: Performed By: #### C MADDIE #### [facility] [address] [place] [address] Dr. Jersey Butcher MCV 90.2 fL Normal 80.0-94.0 [facility] Comment on above: Performed By: #### C MADDIE #### [facility] [address] [place] [address] Dr. Jersey Butcher METAMYELOCYTE # Normal [facility] Comment on above: Performed By: #### C MADDIE #### [facility] [address] [place] [address] Dr. Jersey Butcher METAMYELOCYTE % Normal [facility] Comment on above: Performed By: #### C MADDIE #### [facility] [address] [place] [address] Dr. Jersey Butcher MONOM# 0.24 103/ul Critically low 0.30-0.80 [facility] Comment on above: Performed By: #### C MADDIE #### [facility] [address] [address] [address] Jersey Butcher MONOM% 2.0 % Normal 1.7-12.0 [facility] Comment on above: Performed By: #### C MADDIE #### [facility] [address] [address] [address] Jersey Butcher MPV 10.8 fL Normal 9.5-13.5 [facility] Comment on above: Performed By: #### C MADDIE #### [facility] [address] [address] [address] Jersey Butcher MYELOCYTE # Normal [facility] Comment on above: Performed By: #### C MADDIE #### [facility] [address] [place] [address] Dr. Jersey Butcher MYELOCYTE % Normal [facility] Comment on above: Performed By: #### C MADDIE #### [facility] [address] [place] [address] Dr. Jersey Butcher NRBC Normal [facility] Comment on above: Performed By: #### C MADDIE #### [facility] [address] [address] [address] Jersey Butcher PLT 177 103/ul Normal 150-450 [facility] Comment on above: Performed By: #### C MADDIE #### [facility] [address] [place] [address] Dr. Jersey Butcher RBC 4.57 106/ul Critically low 4.70-6.10 [facility] Comment on above: Performed By: #### C MADDIE #### [facility] [address] [address] [address] Jersey Butcher RDW 11.8 % Normal 11.0-15.[address] [facility] Comment on above: Performed By: #### C MADDIE #### [facility] [address] [place] [address] Dr. Jersey Butcher SEG # 11.10 103/ul Critically high 1.40-6.50 [facility] Comment on above: Performed By: #### C MADDIE #### [facility] [address] [place] [address] Dr. Jersey Butcher SEG % 91.0 % Critically high 43.0-75.0 [facility] Comment on above: Performed By: #### C MADDIE #### [facility] [address] [place] [address] Dr. Jersey Butcher WBC 12.2 103/ul Critically high 4.0-11.0 [facility] Comment on above: Performed By: #### C MADDIE #### [facility] [address] [place] [address] Dr. Jersey Butcher PROF 14(COMP METB)on 022 Albumin [Mass/Vol] 2.9 g/dL Critically low 3.4-5.0 [facility] Comment on above: Performed By: #### D DIM #### [facility] [address] [place] [address] Dr. Jersey Butcher Albumin/Globulin [Mass ratio] 0.8 {ratio} Normal [facility] Comment on above: Performed By: #### D DIM #### [facility] [address] [place] [address] Dr. Jersey Butcher ALP [Catalytic activity/Vol] 90 U/L Normal 46-116 [facility] Comment on above: Performed By: #### D DIM #### [facility] [address] [place] [address] Dr. Jersey Butcher ALT [Catalytic activity/Vol] 40 U/L Normal 16-[address] [facility] Comment on above: Performed By: #### D DIM #### [facility] [address] [place] [address] Dr. Jersey Butcher Anion gap [Moles/Vol] 6.7 mmol/L Normal [facility] Comment on above: Performed By: #### D DIM #### [facility] [address] [place] [address] Dr. Jersey Butcher AST [Catalytic activity/Vol] 20 U/L Normal 15-37 [facility] Comment on above: Performed By: #### D DIM #### [facility] [address] [place] [address] Dr. Jersey Butchre Bilirubin [Mass/Vol] 0.4 mg/dL Normal 0.2-1.0 [facility] Comment on above: Performed By: #### D DIM #### [facility] [address] [address] [address] Jersey Butcher Calcium [Mass/Vol] 8.6 mg/dL Normal 8.5-10.1 [facility] Comment on above: Performed By: #### D DIM #### [facility] [address] [address] [address] Jersey Butcher Chloride [Moles/Vol] 95 mmol/L Critically low 98-107 [facility] Comment on above: Performed By: #### D DIM #### [facility] [address] [place] [address] Dr. Jersey Butcher CO2 [Moles/Vol] 33.6 mmol/L Critically high 21.0-32.0 [facility] Comment on above: Performed By: #### D DIM #### [facility] [address] [place] [address] Dr. Jersey Butcher Creatinine [Mass/Vol] 1.14 mg/dL Normal 0.70-1.30 [facility] Comment on above: Performed By: #### D DIM #### [facility] [address] [place] [address] Dr. Jersey Butcher EGFR-AF SALVADOREAN >60 Normal >=60 [facility] Comment on above: Performed By: #### D DIM #### [facility] [address] [place] [address] Dr. Jersey Butcher EGFR-NON AF SALVADOREAN >60 Normal >=60 [facility] Comment on above: Performed By: #### D DIM #### [facility] [address] [address] [address] Jersey Butcher Globulin (S) [Mass/Vol] 3.7 g/dL Normal [facility] Comment on above: Performed By: #### D DIM #### [facility] [address] [place] [address] Dr. Jersey Butcher Glucose [Mass/Vol] 205 mg/dL Critically high 74-[address] [facility] Comment on above: Performed By: #### D DIM #### [facility] [address] [address] [address] Jersey Butcher Potassium [Moles/Vol] 3.3 mmol/L Critically low 3.5-5.1 [facility] Comment on above: Performed By: #### D DIM #### [facility] [address] [place] [address] Dr. Jersey Butcher Protein [Mass/Vol] 6.6 g/dL Normal 6.4-8.2 [facility] Comment on above: Performed By: #### D DIM #### [facility] [address] [place] [address] Dr. Jersey Butcher Sodium [Moles/Vol] 132 mmol/L Critically low 136-145 [facility] Comment on above: Performed By: #### D DIM #### [facility] [address] [place] [address] Dr. Jersey Butcher Urea nitrogen [Mass/Vol] 24.0 mg/dL Critically high 7.0-18.0 [facility] Comment on above: Performed By: #### D DIM #### [facility] [address] [place] [address] Dr. Jersey Butcher Urea nitrogen/Creatinine [Mass ratio] 21.1 mg/mg Normal [facility] Comment on above: Performed By: #### D DIM #### [facility] [address] [place] [address] Dr. Jersey Butcher BNPon 06-02-2022 Natriuretic peptide B (Bld) [Mass/Vol] 85.0 pg/mL Normal <=900.0 [facility] Comment on above: Performed By: #### C VDTBH #### [facility] [address] [place] [address] Dr. Jersey Butcher CBC AUTO DIFFon 06-02-2022 BASO # 0.0 103/ul Normal 0.0-0.1 [facility] Comment on above: Performed By: #### T SH, BNP, HSTROPN, CMP #### [facility] [address] [place] [address] Dr. Jersey Butcher Basophils/100 WBC (Bld) 0.5 % Normal 0.2-2.[address] [facility] Comment on above: Performed By: #### T SH, BNP, HSTROPN, CMP #### [facility] [address] [place] [address] Dr. Jersey Butcher EO # 0.0 103/ul Normal 0.0-0.[address] [facility] Comment on above: Performed By: #### T SH, BNP, HSTROPN, CMP #### [facility] [address] [place] [address] Dr. Jersey Butcher Eosinophils/100 WBC (Bld) 0.0 % Critically low 0.9-7.[address] [facility] Comment on above: Performed By: #### T SH, BNP, HSTROPN, CMP #### [facility] [address] [place] [address] Dr. Jersey Butcher Erythrocyte distribution width (RBC) [Ratio] 11.5 % Normal 11.0-15.[address] [facility] Comment on above: Performed By: #### T SH, BNP, HSTROPN, CMP #### [facility] [address] [place] [address] Dr. Jersey Butcher Hematocrit (Bld) [Volume fraction] 42.8 % Normal 42.0-54.[address] [facility] Comment on above: Performed By: #### T SH, BNP, HSTROPN, CMP #### [facility] [address] [place] [address] Dr. Jersey Butcher Hemoglobin (Bld) [Mass/Vol] 14.6 g/dL Normal 14.0-18.[address] [facility] Comment on above: Performed By: #### T SH, BNP, HSTROPN, CMP #### [facility] [address] [place] [address] Dr. Jersey Butcher IG # 0.00 10e3/ul Normal 0.00-0.[address] [facility] Comment on above: Performed By: #### T SH, BNP, HSTROPN, CMP #### [facility] [address] [address] [address] Jersey Butcher IG % 0.0 % Normal 0.0-0.5 [facility] Comment on above: Performed By: #### T SH, BNP, HSTROPN, CMP #### [facility] [address] [place] [address] Dr. Jersey Butcher LYMPH # 0.4 103/ul Critically low 1.2-3.8 [facility] Comment on above: Performed By: #### T SH, BNP, HSTROPN, CMP #### [facility] [address] [place] [address] Dr. Jersey Butcher Lymphocytes/100 WBC (Bld) 18.4 % Critically low 20.5-60.0 [facility] Comment on above: Performed By: #### T SH, BNP, HSTROPN, CMP #### [facility] [address] [place] [address] Dr. Jersey Butcher MANUAL DIFF REQ NO Normal [facility] Comment on above: Performed By: #### T SH, BNP, HSTROPN, CMP #### [facility] [address] [place] [address] Dr. Jersey Butcher MCH (RBC) [Entitic mass] 30.9 pg Normal 25.9-34.0 [facility] Comment on above: Performed By: #### T SH, BNP, HSTROPN, CMP #### [facility] [address] [place] [address] Dr. Jersey Butcher MCHC (RBC) [Mass/Vol] 34.1 g/dL Normal 29.9-35.[address] [facility] Comment on above: Performed By: #### T SH, BNP, HSTROPN, CMP #### [facility] [address] [place] [address] Dr. Jersey Butcher MCV (RBC) [Entitic vol] 90.7 fL Normal 80.0-94.0 [facility] Comment on above: Performed By: #### T SH, BNP, HSTROPN, CMP #### [facility] [address] [place] [address] Dr. Jersey Butcher MONO # 0.1 103/ul Critically low 0.3-0.8 [facility] Comment on above: Performed By: #### T SH, BNP, HSTROPN, CMP #### [facility] [address] [place] [address] Dr. Jersey Butcher Monocytes/100 WBC (Bld) 4.6 % Normal 1.7-12.[address] [facility] Comment on above: Performed By: #### T SH, BNP, HSTROPN, CMP #### [facility] [address] [place] [address] Dr. Jersey Butcher NEUT # 1.7 103/ul Normal 1.4-6.[address] [facility] Comment on above: Performed By: #### T SH, BNP, HSTROPN, CMP #### [facility] [address] [place] [address] Dr. Jersey Butcher Neutrophils/100 WBC (Bld) 76.5 % Critically high 43.0-75.0 [facility] Comment on above: Performed By: #### T SH, BNP, HSTROPN, CMP #### [facility] [address] [place] [address] Dr. Jersey Butcher Platelet mean volume (Bld) [Entitic vol] 10.1 fL Normal 9.5-13.5 [facility] Comment on above: Performed By: #### T SH, BNP, HSTROPN, CMP #### [facility] [address] [place] [address] Dr. Jersey Butcher PLT 160 103/ul Normal 150-[address] [facility] Comment on above: Performed By: #### T SH, BNP, HSTROPN, CMP #### [facility] [address] [place] [address] Dr. Jersey Butcher RBC 4.72 106/ul Normal 4.70-6.[address] [facility] Comment on above: Performed By: #### T SH, BNP, HSTROPN, CMP #### [facility] [address] [place] [address] Dr. Jersey Butcher WBC 2.2 103/ul Critically low 4.0-11.0 [facility] Comment on above: Performed By: #### T SH, BNP, HSTROPN, CMP #### [facility] [address] [place] [address] Dr. Jersey Butcher PROF 14(COMP METB)on 022 Albumin [Mass/Vol] 2.7 g/dL Critically low 3.4-5.0 [facility] Comment on above: Performed By: #### C VDTBH #### [facility] [address] [place] [address] Dr. Jersey Butcher Albumin/Globulin [Mass ratio] 0.7 {ratio} Normal [facility] Comment on above: Performed By: #### C VDTBH #### [facility] [address] [place] [address] Dr. Jresey Butcher ALP [Catalytic activity/Vol] 102 U/L Normal 46-116 [facility] Comment on above: Performed By: #### C VDTBH #### [facility] [address] [place] [address] Dr. Jersey Butcher ALT [Catalytic activity/Vol] 45 U/L Normal 16-63 [facility] Comment on above: Performed By: #### C VDTBH #### [facility] [address] [place] [address] Dr. Jersey Butcher Anion gap [Moles/Vol] 7.4 mmol/L Normal [facility] Comment on above: Performed By: #### C VDTBH #### [facility] [address] [place] [address] Dr. Jersey Butcher AST [Catalytic activity/Vol] 30 U/L Normal 15-37 [facility] Comment on above: Performed By: #### C VDTBH #### [facility] [address] [place] [address] Dr. Jersey Butcher Bilirubin [Mass/Vol] 0.3 mg/dL Normal 0.2-1.0 [facility] Comment on above: Performed By: #### C VDTBH #### [facility] [address] [place] [address] Dr. Jersey Butcher Calcium [Mass/Vol] 8.3 mg/dL Critically low 8.5-10.1 [facility] Comment on above: Performed By: #### C VDTBH #### [facility] [address] [place] [address] Dr. Jersey Butcher Chloride [Moles/Vol] 94 mmol/L Critically low 98-107 [facility] Comment on above: Performed By: #### C VDTBH #### [facility] [address] [place] [address] Dr. Jersey Butcher CO2 [Moles/Vol] 32.8 mmol/L Critically high 21.0-32.0 [facility] Comment on above: Performed By: #### C VDTBH #### [facility] [address] [place] [address] Dr. Jersey Butcher Creatinine [Mass/Vol] 1.23 mg/dL Normal 0.70-1.30 [facility] Comment on above: Performed By: #### C VDTBH #### [facility] [address] [place] [address] Dr. Jersey Butcher EGFR-AF SALVADOREAN >60 Normal >=60 [facility] Comment on above: Performed By: #### C VDTBH #### [facility] [address] [place] [address] Dr. Jersey Butcher EGFR-NON AF SALVADOREAN 60 mL/min/1.73m2 Normal >=60 [facility] Comment on above: Performed By: #### C VDTBH #### [facility] [address] [place] [address] Dr. Jersey Butcher Globulin (S) [Mass/Vol] 3.9 g/dL Normal [facility] Comment on above: Performed By: #### C VDTBH #### [facility] [address] [place] [address] Dr. Jersey Butcher Glucose [Mass/Vol] 314 mg/dL Critically high 74-106 T [facility] Comment on above: Performed By: #### C VDTBH #### [facility] [address] [place] [address] Dr. Jersey Butcher Potassium [Moles/Vol] 3.2 mmol/L Critically low 3.5-5.1 [facility] Comment on above: Performed By: #### C VDTBH #### [facility] [address] [place] [address] Dr. Jeresy Butcher Protein [Mass/Vol] 6.6 g/dL Normal 6.4-8.2 [facility] Comment on above: Performed By: #### C VDTBH #### [facility] [address] [place] [address] Dr. Jersey Butcher Sodium [Moles/Vol] 131 mmol/L Critically low 136-145 [facility] Comment on above: Performed By: #### C VDTBH #### [facility] [address] [place] [address] Dr. Jersey Butcher Urea nitrogen [Mass/Vol] 20.0 mg/dL Critically high 7.0-18.0 [facility] [facility] Comment on above: Performed By: #### C VDTBH #### [facility] [address] [place] [address] Dr. Jersey Butcher Urea nitrogen/Creatinine [Mass ratio] 16.3 mg/mg Normal [facility] Comment on above: Performed By: #### C VDTBH #### [facility] [address] [place] [address] Dr. Jersey Butcher BNPon 06-01-2022 Natriuretic peptide B (Bld) [Mass/Vol] 70.0 pg/mL Normal <=900.0 [facility] Comment on above: Performed By: #### T SH, BNP, HSTROPN, CMP #### [facility] [address] [place] [address] Dr. Jersey Butcher CARDIAC VIDHI 3-6on 2 CK [Catalytic activity/Vol] 193 U/L Normal 39-308 [facility] Comment on above: Performed By: #### T SH, BNP, HSTROPN, CMP #### [facility] [address] [place] [address] Dr. Jersey Butcher CK.MB [Mass/Vol] 2.87 ng/mL Normal <=3.60 [facility] Comment on above: Performed By: #### T SH, BNP, HSTROPN, CMP #### [facility] [address] [place] [address] Dr. Jersey Butcher HSTROP 11.7 pg/mL Normal 4.0-76.[address] [facility] Comment on above: Result Comment: CUT- OFF POINTS HAVE BEEN ESTABLISHED BASED ON THE FOURTH UNIVERSAL DEFINITIONS OF MYOCARDIAL INFARCTION. THE UPPER REFERENCE LIMIT (URL) OF TROPONIN, DEFINED THE 99TH PERCENTILE OF cTnI DISTRIBUTION IN A REFERENCE POPULATION, HAS BEEN CONFIRMED THE DECISION THRESHOLD FOR TX DIAGNOSIS. Performed By: #### T SH, BNP, HSTROPN, CMP #### [facility] [address] [place] [address] Dr. Jersey Butcher CK [Catalytic activity/Vol] 218 U/L Normal 39-[address] [facility] Comment on above: Performed By: #### T SH, BNP, HSTROPN, CMP #### [facility] [address] [place] [address] Dr. Jersey Butcher CK.MB [Mass/Vol] 3.01 ng/mL Normal <=3.60 [facility] Comment on above: Performed By: #### T SH, BNP, HSTROPN, CMP #### [facility] [address] [place] [address] Dr. Jersey Butcher HSTROP 13.9 pg/mL Normal 4.0-76.[address] [facility] Comment on above: Result Comment: CUT- OFF POINTS HAVE BEEN ESTABLISHED BASED ON THE FOURTH UNIVERSAL DEFINITIONS OF MYOCARDIAL INFARCTION. THE UPPER REFERENCE LIMIT (URL) OF TROPONIN, DEFINED THE 99TH PERCENTILE OF cTnI DISTRIBUTION IN A REFERENCE POPULATION, HAS BEEN CONFIRMED THE DECISION THRESHOLD FOR TX DIAGNOSIS. Performed By: #### T SH, BNP, HSTROPN, CMP #### [facility] [address] [place] [address] Dr. Jersey Butcher CBC W MANUAL DIFFon 06-01-20 22 ATYPICAL LYMPH # Normal [facility] Comment on above: Performed By: #### T SH, BNP, HSTROPN, CMP #### [facility] [address] [address] [address] Jersey Butcher ATYPICAL LYMPH % Normal [facility] Comment on above: Performed By: #### T SH, BNP, HSTROPN, CMP #### [facility] [address] [address] [address] Jersey Butcher BAND # 0.1 103/ul Normal 0.0-0.3 [facility] Comment on above: Performed By: #### T SH, BNP, HSTROPN, CMP #### [facility] [address] [address] [address] Jersey Butcher BAND % 2 % Normal 0-[address] [facility] Comment on above: Performed By: #### T SH, BNP, HSTROPN, CMP #### [facility] [address] [place] [address] Dr. Jersey Butcher BASOM # 0.00 103/ul Normal 0.00-0.[address] [facility] Comment on above: Performed By: #### T SH, BNP, HSTROPN, CMP #### [facility] [address] [place] [address] Dr. Jersey Butcher BASOM % 0.0 % Critically low 0.2-2.0 [facility] Comment on above: Performed By: #### T SH, BNP, HSTROPN, CMP #### [facility] [address] [place] [address] Dr. Jersey Butcher BLAST # Normal The [facility] Comment on above: Performed By: #### T SH, BNP, HSTROPN, CMP #### [facility] [address] [place] [address] Dr. Jersey Butcher BLAST % Normal [facility] Comment on above: Performed By: #### T SH, BNP, HSTROPN, CMP #### [facility] [address] [place] [address] Dr. Jersey Butcher CORRECTED WBC Normal 4.0-11.0 [facility] Comment on above: Performed By: #### T SH, BNP, HSTROPN, CMP #### [facility] [address] [address] [address] Jersey Butcher EOS # 0.00 103/ul Normal 0.00-0.[address] [facility] Comment on above: Performed By: #### T SH, BNP, HSTROPN, CMP #### [facility] [address] [address] [address] Jersey Butcher EOS% 0.0 % Critically low 0.9-7.0 [facility] Comment on above: Performed By: #### T SH, BNP, HSTROPN, CMP #### [facility] [address] [address] [address] Jersey Butcher HCT 45.5 % Normal 42.0-54.[address] [facility] Comment on above: Performed By: #### T SH, BNP, HSTROPN, CMP #### [facility] [address] [place] [address] Dr. Jersey Butcher HGB 16.1 g/dl Normal 14.0-18.[address] [facility] Comment on above: Performed By: #### T SH, BNP, HSTROPN, CMP #### [facility] [address] [address] [address] Jersey Butcher LYMPHM # 1.15 103/ul Critically low 1.20-3.80 The [facility] Comment on above: Performed By: #### T SH, BNP, HSTROPN, CMP #### [facility] [address] [address] [address] Jersey Butcher LYMPHM% 25.0 % Normal 20.5-60.[address] [facility] Comment on above: Performed By: #### T SH, BNP, HSTROPN, CMP #### [facility] [address] [place] [address] Dr. Jersey Butcher MCH 31.5 pg Normal 25.9-34.[address] [facility] Comment on above: Performed By: #### T SH, BNP, HSTROPN, CMP #### [facility] [address] [place] [address] Dr. Jersey Butcher MCHC 35.4 g/dl Critically high 29.9-35.2 [facility] Comment on above: Performed By: #### T SH, BNP, HSTROPN, CMP #### [facility] [address] [place] [address] Dr. Jersey Butcher MCV 89.0 fL Normal 80.0-94.0 [facility] Comment on above: Performed By: #### T SH, BNP, HSTROPN, CMP #### [facility] [address] [place] [address] Dr. Jersey Butcher METAMYELOCYTE # Normal [facility] Comment on above: Performed By: #### T SH, BNP, HSTROPN, CMP #### [facility] [address] [place] [address] Dr. Jersey Butcher METAMYELOCYTE % Normal [facility] Comment on above: Performed By: #### T SH, BNP, HSTROPN, CMP #### [facility] [address] [place] [address] Dr. Jersey Butcher MONOM# 0.32 103/ul Normal 0.30-0.80 [facility] Comment on above: Performed By: #### T SH, BNP, HSTROPN, CMP #### [facility] [address] [place] [address] Dr. Jersey Butcher MONOM% 7.0 % Normal 1.7-12.0 [facility] Comment on above: Performed By: #### T SH, BNP, HSTROPN, CMP #### [facility] [address] [place] [address] Dr. Jersey Butcher MPV 10.4 fL Normal 9.5-13.5 [facility] Comment on above: Performed By: #### T SH, BNP, HSTROPN, CMP #### [facility] [address] [place] [address] Dr. Jersey Butcher MYELOCYTE # Normal [facility] Comment on above: Performed By: #### T SH, BNP, HSTROPN, CMP #### [facility] [address] [place] [address] Dr. Jersey Butcher MYELOCYTE % Normal [facility] Comment on above: Performed By: #### T SH, BNP, HSTROPN, CMP #### [facility] [address] [place] [address] Dr. Jersey Butcher [facility] Normal [facility] Comment on above: Performed By: #### T SH, BNP, HSTROPN, CMP #### [facility] [address] [place] [address] Dr. Jersey Butcher PLT 195 103/ul Normal 150-450 [facility] Comment on above: Performed By: #### T SH, BNP, HSTROPN, CMP #### [facility] [address] [place] [address] Dr. Jersey Butcher RBC 5.11 106/ul Normal 4.70-6.[address] [facility] Comment on above: Performed By: #### T SH, BNP, HSTROPN, CMP #### [facility] [address] [place] [address] Dr. Jersey Butcher RDW 11.6 % Normal 11.0-15.0 [facility] Comment on above: Performed By: #### T SH, BNP, HSTROPN, CMP #### [facility] [address] [place] [address] Dr. Jersey Butcher SEG # 3.04 103/ul Normal 1.40-6.50 [facility] Comment on above: Performed By: #### T SH, BNP, HSTROPN, CMP #### [facility] [address] [place] [address] Dr. Jersey Butcher SEG % 66.0 % Normal 43.0-75.0 [facility] Comment on above: Performed By: #### T SH, BNP, HSTROPN, CMP #### [facility] [address] [place] [address] Dr. Jersey Butcher WBC 4.6 103/ul Normal 4.0-11.0 [facility] Comment on above: Performed By: #### T SH, BNP, HSTROPN, CMP #### [facility] [address] [place] [address] Dr. Jersey Butcher CTA CHEST WO W [...] by: KESHAWN ALVAREZ Date: 2022-06-01 17:55 Normal [facility] CULTURE BLOODon 06-01-2022 Microscopic examination of blood, culture Culture Observations: NO GROWTH AT 5 DAYS. Normal [facility] Comment on above: Performed By: #### C MADDIE #### [facility] [address] [address] [address] Jersey Butcher Microscopic examination of blood, culture Culture Observations: NO GROWTH AT 5 DAYS. Normal [facility] Comment on above: Performed By: #### C MADDIE #### [facility] [address] [address] [address] Jersey Butcher [facility] SARS-CoV-2 (COVID-19) RNA PILI+probe Ql (Unsp spec) Not detected Normal NOT DETECTED [facility] Comment on above: Result Comment: When diagnostic [...] for this test is supported by the [place] of Health and Human Service's declaration that [...] used). Performed By: #### D DIM #### [facility] [address] [place] [address] Dr. Jersey Butcher LACTATE/LACTIC ACIDon 2021 Lactate [Moles/Vol] 1.3 mmol/L Normal 0.4-1.9 [facility] Comment on above: Performed By: #### T SH, BNP, HSTROPN, CMP #### [facility] [address] [place] [address] Dr. Jersey Butcher PH VENOUS BLOODon 06-01-2022 PCO2 VENOUS 45.8 mmHg Normal 40.0-52.0 [facility] Comment on above: Performed By: #### C VDTBH #### [facility] [address] [place] [address] Dr. Jersey Butcher pH VENOUS 7.508 Critically high 7.330-7.430 [facility] Comment on above: Performed By: #### C VDTBH #### [facility] [address] [place] [address] Dr. Jersey Butcher PROF 14(COMP METB)on 022 Albumin [Mass/Vol] 3.1 g/dL Critically low 3.4-5.0 [facility] Comment on above: Performed By: #### T SH, BNP, HSTROPN, CMP #### [facility] [address] [place] [address] Dr. Jersey Butcher Albumin/Globulin [Mass ratio] 0.8 {ratio} Normal [facility] Comment on above: Performed By: #### T SH, BNP, HSTROPN, CMP #### [facility] [address] [place] [address] Dr. Jersey Butcher ALP [Catalytic activity/Vol] 103 U/L Normal 46-116 [facility] Comment on above: Performed By: #### T SH, BNP, HSTROPN, CMP #### [facility] [address] [address] [address] Jersey Butcher ALT [Catalytic activity/Vol] 50 U/L Normal 16-63 [facility] Comment on above: Performed By: #### T SH, BNP, HSTROPN, CMP #### [facility] [address] [place] [address] Dr. Jersey Butcher Anion gap [Moles/Vol] 6.7 mmol/L Normal [facility] Comment on above: Performed By: #### T SH, BNP, HSTROPN, CMP #### [facility] [address] [place] [address] Dr. Jersey Butcher AST [Catalytic activity/Vol] 43 U/L Critically high 15-37 [facility] Comment on above: Performed By: #### T SH, BNP, HSTROPN, CMP #### [facility] [address] [place] [address] Dr. Jersey Butcher Bilirubin [Mass/Vol] 0.7 mg/dL Normal 0.2-1.0 [facility] Comment on above: Performed By: #### T SH, BNP, HSTROPN, CMP #### [facility] [address] [place] [address] Dr. Jersey Butcher Calcium [Mass/Vol] 8.7 mg/dL Normal 8.5-10.1 [facility] Comment on above: Performed By: #### T SH, BNP, HSTROPN, CMP #### [facility] [address] [place] [address] Dr. Jersey Bucther Chloride [Moles/Vol] 94 mmol/L Critically low 98-107 [facility] Comment on above: Performed By: #### T SH, BNP, HSTROPN, CMP #### [facility] [address] [place] [address] Dr. Jersey Butcher CO2 [Moles/Vol] 35.4 mmol/L Critically high 21.0-32.0 [facility] Comment on above: Performed By: #### T SH, BNP, HSTROPN, CMP #### [facility] [address] [address] [address] Jersey Butcher Creatinine [Mass/Vol] 1.05 mg/dL Normal 0.70-1.30 [facility] Comment on above: Performed By: #### T SH, BNP, HSTROPN, CMP #### [facility] [address] [address] [address] Jersey Butcher EGFR-AF SALVADOREAN >60 Normal >=60 [facility] Comment on above: Performed By: #### T SH, BNP, HSTROPN, CMP #### [facility] [address] [place] [address] Dr. Jersey Butcher EGFR-NON AF SALVADOREAN >60 Normal >=60 [facility] Comment on above: Performed By: #### T SH, BNP, HSTROPN, CMP #### [facility] [address] [place] [address] Dr. Jersey Butcher Globulin (S) [Mass/Vol] 3.9 g/dL Normal [facility] Comment on above: Performed By: #### T SH, BNP, HSTROPN, CMP #### [facility] [address] [place] [address] Dr. Jersey Butcher Glucose [Mass/Vol] 116 mg/dL Critically high 74-[address] [facility] Comment on above: Performed By: #### T SH, BNP, HSTROPN, CMP #### [facility] [address] [place] [address] Dr. Jersey Butcher Potassium [Moles/Vol] 3.1 mmol/L Critically low 3.5-5.1 [facility] Comment on above: Performed By: #### T SH, BNP, HSTROPN, CMP #### [facility] [address] [place] [address] Dr. Jersey Butcher Protein [Mass/Vol] 7.0 g/dL Normal 6.4-8.2 [facility] Comment on above: Performed By: #### T SH, BNP, HSTROPN, CMP #### [facility] [address] [address] [address] Jersey Butcher Sodium [Moles/Vol] 133 mmol/L Critically low 136-[address] [facility] Comment on above: Performed By: #### T SH, BNP, HSTROPN, CMP #### [facility] [address] [place] [address] Dr. Jersey Butcher Urea nitrogen [Mass/Vol] 19.0 mg/dL Critically high 7.0-18.0 [facility] Comment on above: Performed By: #### T SH, BNP, HSTROPN, CMP #### [facility] [address] [place] [address] Dr. Jersey Butcher Urea nitrogen/Creatinine [Mass ratio] 18.1 mg/mg Normal [facility] Comment on above: Performed By: #### T SH, BNP, HSTROPN, CMP #### [facility] [address] [place] [address] Dr. Jersey Butcher PROTIMEon 06-01-2022 INR Coag (PPP) [Relative time] 0.95 {INR} Normal [facility] Comment on above: Performed By: #### T SH, BNP, HSTROPN, CMP #### [facility] [address] [place] [address] Dr. Jersey Butcher INR GUIDELINES SEE BELOW Normal [facility] Comment on above: Result Comment: MARCIA RED INR: 2.0 - 3.0 CONDITIONS NOT LISTED BELOW 2.5 - 3.5 FOR PROSTHETIC HEART VALVE REPLACEMENT 2.5 - 3.5 RECURRENT THROMBOSIS Performed By: #### T SH, BNP, HSTROPN, CMP #### [facility] [address] [place] [address] Dr. Jersey Butcher PT Coag (PPP) [Time] 10.3 s Normal 9.0-11.[address] [facility] Comment on above: Performed By: #### T SH, BNP, HSTROPN, CMP #### [facility] [address] [place] [address] Dr. Jersey Butcher PTTon 06-01-2022 aPTT Coag (Bld) [Time] 27.1 s Normal 22.3-36.[address] [facility] Comment on above: Performed By: #### T SH, BNP, HSTROPN, CMP #### [facility] [address] [address] [address] Jersey Butcher TROPONIN, HIGH SENSITIVITYon 06-01-2022 HSTROP 14.8 pg/mL Normal 4.0-76.[address] [facility] Comment on above: Result Comment: CUT- OFF POINTS HAVE BEEN ESTABLISHED BASED ON THE FOURTH UNIVERSAL DEFINITIONS OF MYOCARDIAL INFARCTION. THE UPPER REFERENCE LIMIT (URL) OF TROPONIN, DEFINED THE 99TH PERCENTILE OF cTnI DISTRIBUTION IN A REFERENCE POPULATION, HAS BEEN CONFIRMED THE DECISION THRESHOLD FOR TX DIAGNOSIS. Performed By: #### T SH, BNP, HSTROPN, CMP #### [facility] [address] [place] [address] Dr. Jersey Butcher TSHon 06-01-2022 TSH 0.358 uIU/mL Normal 0.358-3.740 [facility] Comment on above: Performed By: #### T SH, BNP, HSTROPN, CMP #### [facility] [address] [address] [address] Jersey Butcher [facility]18 SARS-CoV-2 (COVID-19) RNA PILI+probe Ql (Unsp spec) Not detected Normal NOT DETECTED [facility] Comment on above: Result Comment: This test is not yet approved or cleared by the [place] FDA. When there are no FDA-approved or cleared tests available, and other criteria are met, FDA can make tests available under an emergency access mechanism called an Emergency Use Authorization (EUA). The EUA for this test is supported by the [place] of Health and Human Service's (HHS's) declaration [...] #### T SH, BNP, HSTROPN, CMP #### [facility] [address] [place] [address] Dr. Jersey Butcher CARDIAC VIDHI 3-6on 2 CK [Catalytic activity/Vol] 624 U/L Critically high 39-308 [facility] Comment on above: Performed By: #### T SH, BNP, HSTROPN, CMP #### [facility] [address] [place] [address] Dr. Jersey Butcher CK.MB [Mass/Vol] 0.09 ng/mL Normal <=3.60 [facility] Comment on above: Performed By: #### T SH, BNP, HSTROPN, CMP #### [facility] [address] [place] [address] Dr. Jersey Butcher HSTROP 14.9 pg/mL Normal 4.0-76.[address] [facility] Comment on above: Result Comment: CUT- OFF POINTS HAVE BEEN ESTABLISHED BASED ON THE FOURTH UNIVERSAL DEFINITIONS OF MYOCARDIAL INFARCTION. THE UPPER REFERENCE LIMIT (URL) OF TROPONIN, DEFINED THE 99TH PERCENTILE OF cTnI DISTRIBUTION IN A REFERENCE POPULATION, HAS BEEN CONFIRMED THE DECISION THRESHOLD FOR TX DIAGNOSIS. Performed By: #### T SH, BNP, HSTROPN, CMP #### [facility] [address] [place] [address] Dr. Jersey Butcher CARDIAC VIDHI ADMITon 022 CK [Catalytic activity/Vol] 659 U/L Critically high 39-308 [facility] Comment on above: Performed By: #### T SH, BNP, HSTROPN, CMP #### [facility] [address] [place] [address] Dr. Jersey Butcher CK.MB [Mass/Vol] 0.16 ng/mL Normal <=3.60 [facility] Comment on above: Performed By: #### T SH, BNP, HSTROPN, CMP #### [facility] [address] [place] [address] Dr. Jersey Butcher HSTROP 15.8 pg/mL Normal 4.0-76.1 [facility] Comment on above: Result Comment: CUT- OFF POINTS HAVE BEEN ESTABLISHED BASED ON THE FOURTH UNIVERSAL DEFINITIONS OF MYOCARDIAL INFARCTION. THE UPPER REFERENCE LIMIT (URL) OF TROPONIN, DEFINED THE 99TH PERCENTILE OF cTnI DISTRIBUTION IN A REFERENCE POPULATION, HAS BEEN CONFIRMED THE DECISION THRESHOLD FOR TX DIAGNOSIS. Performed By: #### T SH, BNP, HSTROPN, CMP #### [facility] [address] [place] [address] Dr. Jersey Butcher NILDA 266 ng/mL Critically high 16-96 [facility] Comment on above: Performed By: #### T SH, BNP, HSTROPN, CMP #### [facility] [address] [place] [address] Dr. Jersey Butcher CBC AUTO DIFFon 05-26-2022 BASO # 0.0 103/ul Normal 0.0-0.1 [facility] Comment on above: Performed By: #### C MADDIE #### [facility] [address] [place] [address] Dr. Jersey Butcher Basophils/100 WBC (Bld) 0.2 % Normal 0.2-2.0 [facility] Comment on above: Performed By: #### C MADDIE #### [facility] [address] [place] [address] Dr. Jersey Butcher EO # 0.0 103/ul Normal 0.0-0.7 [facility] Comment on above: Performed By: #### C MADDIE #### [facility] [address] [place] [address] Dr. Jersey Butcher Eosinophils/100 WBC (Bld) 0.3 % Critically low 0.9-7.0 [facility] Comment on above: Performed By: #### C MADDIE #### [facility] [address] [place] [address] Dr. Jersey Butcher Erythrocyte distribution width (RBC) [Ratio] 11.9 % Normal 11.0-15.0 [facility] Comment on above: Performed By: #### C MADDIE #### [facility] [address] [place] [address] Dr. Jersey Butcher Hematocrit (Bld) [Volume fraction] 45.0 % Normal 42.0-54.0 [facility] Comment on above: Performed By: #### C MADDIE #### [facility] [address] [place] [address] Dr. Jersey Butcher Hemoglobin (Bld) [Mass/Vol] 15.6 g/dL Normal 14.0-18.0 [facility] Comment on above: Performed By: #### C MADDIE #### [facility] [address] [address] [address] Jersey Butcher IG # 0.02 10e3/ul Normal 0.00-0.03 [facility] Comment on above: Performed By: #### C MADDIE #### [facility] [address] [place] [address] Dr. Jersey Butcher IG % 0.2 % Normal 0.0-0.5 [facility] Comment on above: Performed By: #### Alhaji PERKINS #### [facility] [address] [address] [address] Jersey Butcher LYMPH # 0.4 103/ul Critically low 1.2-3.8 [facility] Comment on above: Performed By: #### C MADDIE #### [facility] [address] [place] [address] Dr. Jersey Butcher Lymphocytes/100 WBC (Bld) 3.6 % Critically low 20.5-60.0 [facility] Comment on above: Performed By: #### Alhaji PERKINS #### [facility] [address] [address] [address] Jersey Butcher MANUAL DIFF REQ NO Normal [facility] Comment on above: Performed By: #### Alhaji PERKINS #### [facility] [address] [address] [address] Jersey Butcher MCH (RBC) [Entitic mass] 32.0 pg Normal 25.9-34.0 [facility] Comment on above: Performed By: #### Alhaji PERKINS #### [facility] [address] [place] [address] Dr. Jersey Butcher MCHC (RBC) [Mass/Vol] 34.7 g/dL Normal 29.9-35.[address] [facility] Comment on above: Performed By: #### C MADDIE #### [facility] [address] [address] [address] Jersey Butcher MCV (RBC) [Entitic vol] 92.2 fL Normal 80.0-94.[address] [facility] Comment on above: Performed By: #### C MADDIE #### [facility] [address] [place] [address] Dr. Jersey Butcher MONO # 0.8 103/ul Normal 0.3-0.[address] [facility] Comment on above: Performed By: #### C MADDIE #### [facility] [address] [place] [address] Dr. Jersey Butcher Monocytes/100 WBC (Bld) 6.9 % Normal 1.7-12.[address] [facility] Comment on above: Performed By: #### Alhaji PERKINS #### [facility] [address] [place] [address] Dr. Jersey Butcher NEUT # 10.5 103/ul Critically high 1.4-6.5 [facility] Comment on above: Performed By: #### C MADDIE #### [facility] [address] [place] [address] Dr. Jersey Butcher Neutrophils/100 WBC (Bld) 88.8 % Critically high 43.0-75.[address] [facility] Comment on above: Performed By: #### C MADDIE #### [facility] [address] [place] [address] Dr. Jersey Butcher Platelet mean volume (Bld) [Entitic vol] 10.1 fL Normal 9.5-13.[address] [facility] Comment on above: Performed By: #### C MADDIE #### [facility] [address] [place] [address] Dr. Jersey Butcher PLT 273 103/ul Normal 150-[address] [facility] Comment on above: Performed By: #### Alhaji PERKINS #### [facility] [address] [place] [address] Dr. Jersey Butcher RBC 4.88 106/ul Normal 4.70-6.[address] [facility] Comment on above: Performed By: #### C MADDIE #### [facility] [address] [address] [address] Jersey Butcher WBC 11.8 103/ul Critically high 4.0-11.0 [facility] Comment on above: Performed By: #### C MADDIE #### [facility] [address] [address] [address] Jersey Butcher Covid-19 PCR ([facility])on SARS-CoV-2 (COVID-19) RNA PILI+probe Ql (Unsp spec) Not detected Normal NOT DETECTED The [facility] Comment on above: Result Comment: When [...] for this test is supported by the [place] of Health and Human Service's declaration that [...] #### T SH, BNP, HSTROPN, CMP #### [facility] [address] [place] [address] Dr. Jersey Butcher INFLUENZA A AND B AGon 05-26 INFLUANEGH SEE BELOW Normal The [facility] Comment on above: Result Comment: Nega tive for Flu A protein angiten. Infection due to Flu A cannot be ruled out. Flu A angiten in the sample may be below the detection limit of the test. Performed By: #### T SH, BNP, HSTROPN, CMP #### [facility] [address] [place] [address] Dr. Jersey Butcher [facility] SEE BELOW Normal [facility] Comment on above: Result Comment: Nega tive for Flu B protein antigen. Infection due to Flu B cannot be ruled out. Flu B antigen in the sample may be below the detection limit of the test. Performed By: #### T SH, BNP, HSTROPN, CMP #### [facility] [address] [place] [address] Dr. Jersey Butcher INFLUENZA A AG Negative Normal NEGATIVE SEE COMMENT [facility] Comment on above: Performed By: #### T SH, BNP, HSTROPN, CMP #### [facility] [address] [place] [address] Dr. Jersey Butcher INFLUENZA B AG Negative Normal NEGATIVE SEE COMMENT [facility] Comment on above: Performed By: #### T SH, BNP, HSTROPN, CMP #### [facility] [address] [place] [address] Dr. Jersey Butcher INTERNAL CONTROLS Within Normal Limits Normal Wi thin Normal Limits [facility] Comment on above: Performed By: #### T SH, BNP, HSTROPN, CMP #### [facility] [address] [place] [address] Dr. Jersey Butcher LACTATE/LACTIC ACIDon 2021 Lactate [Moles/Vol] 1.8 mmol/L Normal 0.4-1.9 [facility] Comment on above: Performed By: #### T SH, BNP, HSTROPN, CMP #### [facility] [address] [place] [address] Dr. Jersey Butcher PROF CHEM 8 (BAS METB)on Anion gap [Moles/Vol] 7.1 mmol/L Normal [facility] Comment on above: Performed By: #### T SH, BNP, HSTROPN, CMP #### [facility] [address] [place] [address] Dr. Jersey Butcher Calcium [Mass/Vol] 8.9 mg/dL Normal 8.5-10.1 [facility] Comment on above: Performed By: #### T SH, BNP, HSTROPN, CMP #### [facility] [address] [address] [address] Jersey Butcher Chloride [Moles/Vol] 95 mmol/L Critically low 98-107 [facility] Comment on above: Performed By: #### T SH, BNP, HSTROPN, CMP #### [facility] [address] [place] [address] Dr. Jersey Butcher CO2 [Moles/Vol] 33.2 mmol/L Critically high 21.0-32.0 [facility] Comment on above: Performed By: #### T SH, BNP, HSTROPN, CMP #### [facility] [address] [place] [address] Dr. Jersey Butcher Creatinine [Mass/Vol] 1.19 mg/dL Normal 0.70-1.30 [facility] Comment on above: Performed By: #### T SH, BNP, HSTROPN, CMP #### [facility] [address] [place] [address] Dr. Jersey Butcher EGFR-AF SALVADOREAN >60 Normal >=60 [facility] Comment on above: Performed By: #### T SH, BNP, HSTROPN, CMP #### [facility] [address] [place] [address] Dr. Jersey Butcher EGFR-NON AF SALVADOREAN >60 Normal >=60 [facility] Comment on above: Performed By: #### T SH, BNP, HSTROPN, CMP #### [facility] [address] [place] [address] Dr. Jersey Butcher Glucose [Mass/Vol] 135 mg/dL Critically high 74-[address] [facility] Comment on above: Performed By: #### T SH, BNP, HSTROPN, CMP #### [facility] [address] [place] [address] Dr. Jersey Butcher Potassium [Moles/Vol] 3.3 mmol/L Critically low 3.5-5.1 [facility] Comment on above: Performed By: #### T SH, BNP, HSTROPN, CMP #### [facility] [address] [address] [address] Jersey Butcher Sodium [Moles/Vol] 132 mmol/L Critically low 136-[address] [facility] Comment on above: Performed By: #### T SH, BNP, HSTROPN, CMP #### [facility] [address] [place] [address] Dr. Jersey Butcher Urea nitrogen [Mass/Vol] 18.0 mg/dL Normal 7.0-18.0 [facility] Comment on above: Performed By: #### T SH, BNP, HSTROPN, CMP #### [facility] [address] [place] [address] Dr. Jersey Butcher Urea nitrogen/Creatinine [Mass ratio] 15.1 mg/mg Normal [facility] Comment on above: Performed By: #### T SH, BNP, HSTROPN, CMP #### [facility] [address] [place] [address] Dr. Jersey Butcher RSVon 05-26-2022 RSV AG Negative Normal NEGATIVE [facility] Comment on above: Performed By: #### T SH, BNP, HSTROPN, CMP #### [facility] [address] [place] [address] Dr. Jersey Butcher XR CHEST 1 Von [...] MARLENE SAID Date: 2022-05-26 00:45 Normal [address] [facility] BNPon 05-20-2022 Natriuretic peptide B (Bld) [Mass/Vol] 137.0 pg/mL Normal <=900.0 [facility] Comment on above: Performed By: #### C VDTBH #### [facility] [address] [place] [address] Dr. Jersey Butcher CARDIAC VIDHI 3-6on 2 CK [Catalytic activity/Vol] 139 U/L Normal 39-308 [facility] Comment on above: Performed By: #### C VDTBH #### [facility] [address] [address] [address] Jersey Butcher CK.MB [Mass/Vol] 2.85 ng/mL Normal <=3.60 [facility] Comment on above: Performed By: #### C VDTBH #### [facility] [address] [address] [address] Jersey Butcher HSTROP 78.1 pg/mL Critically high 4.0-76.1 [facility] Comment on above: Result Comment: CUT- OFF POINTS HAVE BEEN ESTABLISHED BASED ON THE FOURTH UNIVERSAL DEFINITIONS OF MYOCARDIAL INFARCTION. THE UPPER REFERENCE LIMIT (URL) OF TROPONIN, DEFINED THE 99TH PERCENTILE OF cTnI DISTRIBUTION IN A REFERENCE POPULATION, HAS BEEN CONFIRMED THE DECISION THRESHOLD FOR TX DIAGNOSIS. Performed By: #### C VDTBH #### [facility] [address] [place] [address] Dr. Jersey Butcher CK [Catalytic activity/Vol] 159 U/L Normal 39-308 [facility] Comment on above: Performed By: #### T SH, BNP, HSTROPN, CMP #### [facility] [address] [place] [address] Dr. Jersey Butcher CK.MB [Mass/Vol] 3.45 ng/mL Normal <=3.60 [facility] Comment on above: Performed By: #### T SH, BNP, HSTROPN, CMP #### [facility] [address] [place] [address] Dr. Jersey Butcher HSTROP 84.8 pg/mL Critically high 4.0-76.1 [facility] Comment on above: Result Comment: CUT- OFF POINTS HAVE BEEN ESTABLISHED BASED ON THE FOURTH UNIVERSAL DEFINITIONS OF MYOCARDIAL INFARCTION. THE UPPER REFERENCE LIMIT (URL) OF TROPONIN, DEFINED THE 99TH PERCENTILE OF cTnI DISTRIBUTION IN A REFERENCE POPULATION, HAS BEEN CONFIRMED THE DECISION THRESHOLD FOR TX DIAGNOSIS. Performed By: #### T SH, BNP, HSTROPN, CMP #### [facility] [address] [address] [address] Jersey Butcher CARDIAC VIDHI ADMITon 022 CK [Catalytic activity/Vol] 170 U/L Normal 39-308 [facility] Comment on above: Performed By: #### C VDTBH #### [facility] [address] [address] [address] Jersey Butcher CK.MB [Mass/Vol] 2.94 ng/mL Normal <=3.60 [facility] Comment on above: Performed By: #### C VDTBH #### [facility] [address] [address] [address] Jersey Butcher HSTROP 82.2 pg/mL Critically high 4.0-76.1 [facility] Comment on above: Result Comment: CUT- OFF POINTS HAVE BEEN ESTABLISHED BASED ON THE FOURTH UNIVERSAL DEFINITIONS OF MYOCARDIAL INFARCTION. THE UPPER REFERENCE LIMIT (URL) OF TROPONIN, DEFINED THE 99TH PERCENTILE OF cTnI DISTRIBUTION IN A REFERENCE POPULATION, HAS BEEN CONFIRMED THE DECISION THRESHOLD FOR TX DIAGNOSIS. Performed By: #### C VDTBH #### [facility] [address] [place] [address] Dr. Jersey Butcher NILDA 72 ng/mL Normal 16-96 [facility] Comment on above: Performed By: #### C VDTBH #### [facility] [address] [place] [address] Dr. Jersey Butcher CBC AUTO DIFFon 05-20-2022 BASO # 0.0 103/ul Normal 0.0-0.1 [facility] Comment on above: Performed By: #### C BC #### [facility] [address] [place] [address] Dr. Jersey Butcher Basophils/100 WBC (Bld) 0.3 % Normal 0.2-2.[address] [facility] Comment on above: Performed By: #### C BC #### [facility] [address] [address] [address] Jersey Butcher EO # 0.1 103/ul Normal 0.0-0.7 [facility] Comment on above: Performed By: #### C BC #### [facility] [address] [place] [address] Dr. Jersey Butcher Eosinophils/100 WBC (Bld) 1.8 % Normal 0.9-7.0 [facility] Comment on above: Performed By: #### C BC #### [facility] [address] [place] [address] Dr. Jersey Butcher Erythrocyte distribution width (RBC) [Ratio] 11.9 % Normal 11.0-15.0 [facility] Comment on above: Performed By: #### C BC #### [facility] [address] [place] [address] Dr. Jersey Butcher Hematocrit (Bld) [Volume fraction] 43.5 % Normal 42.0-54.0 [facility] Comment on above: Performed By: #### C BC #### [facility] [address] [place] [address] Dr. Jersey Butcher Hemoglobin (Bld) [Mass/Vol] 15.4 g/dL Normal 14.0-18.0 [facility] Comment on above: Performed By: #### C BC #### [facility] [address] [place] [address] Dr. Jersey Butcher IG # 0.01 10e3/ul Normal 0.00-0.03 [facility] Comment on above: Performed By: #### C BC #### [facility] [address] [place] [address] Dr. Jersey Butcher IG % 0.2 % Normal 0.0-0.[address] [facility] Comment on above: Performed By: #### C BC #### [facility] [address] [place] [address] Dr. Jersey Butcher LYMPH # 1.4 103/ul Normal 1.2-3.[address] [facility] Comment on above: Performed By: #### C BC #### [facility] [address] [place] [address] Dr. Jersey Butcher Lymphocytes/100 WBC (Bld) 21.0 % Normal 20.5-60.0 [facility] Comment on above: Performed By: #### C BC #### [facility] [address] [place] [address] Dr. Jersey Butcher MANUAL DIFF REQ NO Normal [facility] Comment on above: Performed By: #### C BC #### [facility] [address] [place] [address] Dr. Jersey Butcher MCH (RBC) [Entitic mass] 32.2 pg Normal 25.9-34.0 [facility] Comment on above: Performed By: #### C BC #### [facility] [address] [place] [address] Dr. Jersey Butcher MCHC (RBC) [Mass/Vol] 35.4 g/dL Critically high 29.9-35.2 [facility] Comment on above: Performed By: #### C BC #### [facility] [address] [place] [address] Dr. Jersey Butcher MCV (RBC) [Entitic vol] 91.0 fL Normal 80.0-94.0 [facility] Comment on above: Performed By: #### C BC #### [facility] [address] [place] [address] Dr. Jersey Butcher MONO # 1.0 103/ul Critically high 0.3-0.8 [facility] Comment on above: Performed By: #### C BC #### [facility] [address] [place] [address] Dr. Jersey Butcher Monocytes/100 WBC (Bld) 14.9 % Critically high 1.7-12.0 [facility] Comment on above: Performed By: #### C BC #### [facility] [address] [place] [address] Dr. Jersey Butcher NEUT # 4.0 103/ul Normal 1.4-6.[address] [facility] Comment on above: Performed By: #### C BC #### [facility] [address] [place] [address] Dr. Jersey Butcher Neutrophils/100 WBC (Bld) 61.8 % Normal 43.0-75.[address] [facility] Comment on above: Performed By: #### C BC #### [facility] [address] [place] [address] Dr. Jersey Butcher Platelet mean volume (Bld) [Entitic vol] 9.7 fL Normal 9.5-13.5 [facility] Comment on above: Performed By: #### C BC #### [facility] [address] [place] [address] Dr. Jersey Butcher PLT 246 103/ul Normal 150-[address] [facility] Comment on above: Performed By: #### C BC #### [facility] [address] [place] [address] Dr. Jersey Butcher RBC 4.78 106/ul Normal 4.70-6.[address] [facility] Comment on above: Performed By: #### C BC #### [facility] [address] [place] [address] Dr. Jersey Butcher WBC 6.5 103/ul Normal 4.0-11.0 [facility] Comment on above: Performed By: #### C BC #### [facility] [address] [place] [address] Dr. Jersey Butcher BASO # 0.0 103/ul Normal 0.0-0.1 [facility] Comment on above: Performed By: #### C BC #### [facility] [address] [place] [address] Dr. Jersey Butcher Basophils/100 WBC (Bld) 0.3 % Normal 0.2-2.[address] [facility] Comment on above: Performed By: #### C BC #### [facility] [address] [place] [address] Dr. Jersey Butcher EO # 0.1 103/ul Normal 0.0-0.[address] [facility] Comment on above: Performed By: #### C BC #### [facility] [address] [place] [address] Dr. Jersey Butcher Eosinophils/100 WBC (Bld) 1.4 % Normal 0.9-7.[address] [facility] Comment on above: Performed By: #### C BC #### [facility] [address] [place] [address] Dr. Jersey Butcher Erythrocyte distribution width (RBC) [Ratio] 11.9 % Normal 11.0-15.0 [facility] Comment on above: Performed By: #### C BC #### [facility] [address] [place] [address] Dr. Jersey Bucther Hematocrit (Bld) [Volume fraction] 42.5 % Normal 42.0-54.0 [facility] Comment on above: Performed By: #### C BC #### [facility] [address] [place] [address] Dr. Jersey Butcher Hemoglobin (Bld) [Mass/Vol] 14.7 g/dL Normal 14.0-18.0 [facility] Comment on above: Performed By: #### C BC #### [facility] [address] [place] [address] Dr. Jersey Butcher IG # 0.02 10e3/ul Normal 0.00-0.03 [facility] Comment on above: Performed By: #### C BC #### [facility] [address] [place] [address] Dr. Jersey Butcher IG % 0.3 % Normal 0.0-0.5 [facility] Comment on above: Performed By: #### C BC #### [facility] [address] [place] [address] Dr. Jersey Butcher LYMPH # 2.0 103/ul Normal 1.2-3.8 [facility] Comment on above: Performed By: #### C BC #### [facility] [address] [place] [address] Dr. Jersey Butcher Lymphocytes/100 WBC (Bld) 28.9 % Normal 20.5-60.0 [facility] Comment on above: Performed By: #### C BC #### [facility] [address] [place] [address] Dr. Jersey Butcher MANUAL DIFF REQ NO Normal [facility] Comment on above: Performed By: #### C BC #### [facility] [address] [place] [address] Dr. Jersey Butcher MCH (RBC) [Entitic mass] 31.8 pg Normal 25.9-34.0 [facility] Comment on above: Performed By: #### C BC #### [facility] [address] [place] [address] Dr. Jersey Butcher MCHC (RBC) [Mass/Vol] 34.6 g/dL Normal 29.9-35.2 [facility] Comment on above: Performed By: #### C BC #### [facility] [address] [place] [address] Dr. Jersey Butcher MCV (RBC) [Entitic vol] 92.0 fL Normal 80.0-94.0 [facility] Comment on above: Performed By: #### C BC #### [facility] [address] [place] [address] Dr. Jersey Butcher MONO # 1.1 103/ul Critically high 0.3-0.8 [facility] Comment on above: Performed By: #### C BC #### [facility] [address] [place] [address] Dr. Jersey Butcher Monocytes/100 WBC (Bld) 15.3 % Critically high 1.7-12.0 [facility] [facility] Comment on above: Performed By: #### C BC #### [facility] [address] [place] [address] Dr. Jersey Butcher NEUT # 3.7 103/ul Normal 1.4-6.[address] [facility] Comment on above: Performed By: #### C BC #### [facility] [address] [place] [address] Dr. Jersey Butcher Neutrophils/100 WBC (Bld) 53.8 % Normal 43.0-75.[address] [facility] Comment on above: Performed By: #### C BC #### [facility] [address] [place] [address] Dr. Jersey Butcher Platelet mean volume (Bld) [Entitic vol] 9.9 fL Normal 9.5-13.5 [facility] Comment on above: Performed By: #### C BC #### [facility] [address] [place] [address] Dr. Jersey Butcher PLT 268 103/ul Normal 150-[address] [facility] Comment on above: Performed By: #### C BC #### [facility] [address] [address] [address] Jersey Butcher RBC 4.62 106/ul Critically low 4.70-6.10 [facility] Comment on above: Performed By: #### C BC #### [facility] [address] [address] [address] Jersey Butcher WBC 7.0 103/ul Normal 4.0-11.0 [facility] Comment on above: Performed By: #### C BC #### [facility] [address] [address] [address] Jersey Butcher Covid-19 PCR ([facility])on SARS-CoV-2 (COVID-19) RNA PILI+probe Ql (Unsp spec) Not detected Normal NOT DETECTED [facility] Comment on above: Result Comment: When [...] for this test is supported by the Ear Nose Throat Physician of Health and Human Service's declaration that [...] #### T SH, BNP, HSTROPN, CMP #### [facility] [address] [place] [address] Dr. Jersey Butcher D-DIMERon 05-20-2022 D-DIMER 0.57 mg/L FEU Normal <=0.59 The [facility] Comment on above: Performed By: #### D DIM #### [facility] [address] [place] [address] Dr. Jersey Butcher D-DIMER COMMENTS SEE BELOW Normal [facility] Comment on above: Result Comment: Incr [...] hospitalization. Performed By: #### D DIM #### [facility] [address] [place] [address] Dr. Jersey Butcher PROF CHEM 8 (BAS METB)on Anion gap [Moles/Vol] 6.5 mmol/L Normal [facility] Comment on above: Performed By: #### C MADDIE #### [facility] [address] [place] [address] Dr. Jersey Butcher Calcium [Mass/Vol] 8.8 mg/dL Normal 8.5-10.1 [facility] Comment on above: Performed By: #### C MADDIE #### [facility] [address] [place] [address] Dr. Jersey Butcher Chloride [Moles/Vol] 99 mmol/L Normal 98-107 [facility] Comment on above: Performed By: #### C BCMAN #### [facility] [address] [place] [address] Dr. Jersey Butcher CO2 [Moles/Vol] 35.8 mmol/L Critically high 21.0-32.0 [facility] Comment on above: Performed By: #### C BCMAN #### [facility] [address] [place] [address] Dr. Jersey Butcher Creatinine [Mass/Vol] 0.84 mg/dL Normal 0.70-1.30 [facility] Comment on above: Performed By: #### C BCMAN #### [facility] [address] [address] [address] Jersey Butcher EGFR-AF SALVADOREAN >60 Normal >=60 [facility] Comment on above: Performed By: #### C MADDIE #### [facility] [address] [address] [address] Jersey Butcher EGFR-NON AF SALVADOREAN >60 Normal >=60 [facility] Comment on above: Performed By: #### C MADDIE #### [facility] [address] [address] [address] Jersey Butcher Glucose [Mass/Vol] 108 mg/dL Critically high 74-106 [facility] Comment on above: Performed By: #### C MADDIE #### [facility] [address] [address] [address] Jersey Butcher Potassium [Moles/Vol] 3.3 mmol/L Critically low 3.5-5.1 [facility] Comment on above: Performed By: #### C MADDIE #### [facility] [address] [address] [address] Jersey Butcher Sodium [Moles/Vol] 138 mmol/L Normal 136-145 [facility] Comment on above: Performed By: #### C MADDIE #### [facility] [address] [place] [address] Dr. Jersey Butcher Urea nitrogen [Mass/Vol] 17.0 mg/dL Normal 7.0-18.0 [facility] Comment on above: Performed By: #### C MADDIE #### [facility] [address] [address] [address] Jersey Butcher Urea nitrogen/Creatinine [Mass ratio] 20.2 mg/mg Normal [facility] Comment on above: Performed By: #### C MADDIE #### [facility] [address] [place] [address] Dr. Jersey Butcher Anion gap [Moles/Vol] 6.8 mmol/L Normal [facility] Comment on above: Performed By: #### C VDTBH #### [facility] [address] [address] [address] Jersey Butcher Calcium [Mass/Vol] 8.8 mg/dL Normal 8.5-10.1 [facility] Comment on above: Performed By: #### C VDTBH #### [facility] [address] [place] [address] Dr. Jersey Butcher Chloride [Moles/Vol] 98 mmol/L Normal 98-[address] [facility] Comment on above: Performed By: #### C VDTBH #### [facility] [address] [place] [address] Dr. Jersey Butcher CO2 [Moles/Vol] 35.5 mmol/L Critically high 21.0-32.0 [facility] Comment on above: Performed By: #### C VDTBH #### [facility] [address] [place] [address] Dr. Jersey Butcher Creatinine [Mass/Vol] 0.95 mg/dL Normal 0.70-1.[address] [facility] Comment on above: Performed By: #### C VDTBH #### [facility] [address] [place] [address] Dr. Jersey Butcher EGFR-AF SALVADOREAN >60 Normal >=60 [facility] Comment on above: Performed By: #### C VDTBH #### [facility] [address] [place] [address] Dr. Jersey Butcher EGFR-NON AF SALVADOREAN >60 Normal >=[address] [facility] Comment on above: Performed By: #### C VDTBH #### [facility] [address] [place] [address] Dr. Jersey Butcher Glucose [Mass/Vol] 96 mg/dL Normal 74-106 [facility] Comment on above: Performed By: #### C VDTBH #### [facility] [address] [address] [address] Jersey Butcher Potassium [Moles/Vol] 3.3 mmol/L Critically low 3.5-5.1 [facility] Comment on above: Performed By: #### C VDTBH #### [facility] [address] [place] [address] Dr. Jersey Butcher Sodium [Moles/Vol] 137 mmol/L Normal 136-145 [facility] Comment on above: Performed By: #### C VDTBH #### [facility] [address] [place] [address] Dr. Jersey Butcher Urea nitrogen [Mass/Vol] 21.0 mg/dL Critically high 7.0-18.0 [facility] Comment on above: Performed By: #### C VDTBH #### [facility] [address] [place] [address] Dr. Jersey Butcher Urea nitrogen/Creatinine [Mass ratio] 22.1 mg/mg Normal [facility] Comment on above: Performed By: #### C VDTBH #### [facility] [address] [place] [address] Dr. Jersey Butcher TROPONIN, HIGH SENSITIVITYon 05-20-2022 HSTROP 56.7 pg/mL Normal 4.0-76.1 [facility] Comment on above: Result Comment: CUT- OFF POINTS HAVE BEEN ESTABLISHED BASED ON THE FOURTH UNIVERSAL DEFINITIONS OF MYOCARDIAL INFARCTION. THE UPPER REFERENCE LIMIT (URL) OF TROPONIN, DEFINED THE 99TH PERCENTILE OF cTnI DISTRIBUTION IN A REFERENCE POPULATION, HAS BEEN CONFIRMED THE DECISION THRESHOLD FOR TX DIAGNOSIS. Performed By: #### C VDTBH #### [facility] [address] [place] [address] Dr. Jersey Butcher HSTROP 78.4 pg/mL Critically high 4.0-76.1 [facility] Comment on above: Result Comment: CUT- OFF POINTS HAVE BEEN ESTABLISHED BASED ON THE FOURTH UNIVERSAL DEFINITIONS OF MYOCARDIAL INFARCTION. THE UPPER REFERENCE LIMIT (URL) OF TROPONIN, DEFINED THE 99TH PERCENTILE OF cTnI DISTRIBUTION IN A REFERENCE POPULATION, HAS BEEN CONFIRMED THE DECISION THRESHOLD FOR TX DIAGNOSIS. Performed By: #### C BCMAN #### [facility] [address] [place] [address] Dr. Jersey Butcher HSTROP 85.4 pg/mL Critically high 4.0-76.1 [facility] Comment on above: Result Comment: CUT- OFF POINTS HAVE BEEN ESTABLISHED BASED ON THE FOURTH UNIVERSAL DEFINITIONS OF MYOCARDIAL INFARCTION. THE UPPER REFERENCE LIMIT (URL) OF TROPONIN, DEFINED THE 99TH PERCENTILE OF cTnI DISTRIBUTION IN A REFERENCE POPULATION, HAS BEEN CONFIRMED THE DECISION THRESHOLD FOR TX DIAGNOSIS. Performed By: #### C BCMAN #### [facility] [address] [address] [address] Jersey Butcher XR CHEST 1 Von [...] SANDEEP MARY Date: 2022-05-20 00:59 Normal [address] [facility] CBC AUTO DIFFon 02-04-2022 BASO # 0.0 103/ul Normal 0.0-0.[address] [facility] Comment on above: Performed By: #### T SH, BNP, HSTROPN, CMP #### [facility] [address] [place] [address] Dr. Jersey Butcher Basophils/100 WBC (Bld) 0.2 % Normal 0.2-2.[address] [facility] Comment on above: Performed By: #### T SH, BNP, HSTROPN, CMP #### [facility] [address] [place] [address] Dr. Jersey Butcher EO # 0.0 103/ul Normal 0.0-0.[address] [facility] Comment on above: Performed By: #### T SH, BNP, HSTROPN, CMP #### [facility] [address] [place] [address] Dr. Jersey Butcher Eosinophils/100 WBC (Bld) 0.4 % Critically low 0.9-7.[address] [facility] Comment on above: Performed By: #### T SH, BNP, HSTROPN, CMP #### [facility] [address] [place] [address] Dr. Jersey Butcher Erythrocyte distribution width (RBC) [Ratio] 12.4 % Normal 11.0-15.[address] [facility] Comment on above: Performed By: #### T SH, BNP, HSTROPN, CMP #### [facility] [address] [place] [address] Dr. Jersey Butcher Hematocrit (Bld) [Volume fraction] 41.9 % Critically low 42.0-54.0 [facility] Comment on above: Performed By: #### T SH, BNP, HSTROPN, CMP #### [facility] [address] [place] [address] Dr. Jersey Butcher Hemoglobin (Bld) [Mass/Vol] 14.5 g/dL Normal 14.0-18.0 [facility] Comment on above: Performed By: #### T SH, BNP, HSTROPN, CMP #### [facility] [address] [place] [address] Dr. Jersey Butcher IG # 0.02 10e3/ul Normal 0.00-0.03 [facility] Comment on above: Performed By: #### T SH, BNP, HSTROPN, CMP #### [facility] [address] [place] [address] Dr. Jersey Butcher IG % 0.2 % Normal 0.0-0.5 [facility] Comment on above: Performed By: #### T SH, BNP, HSTROPN, CMP #### [facility] [address] [place] [address] Dr. Jersey Butcher LYMPH # 0.9 103/ul Critically low 1.2-3.8 [facility] Comment on above: Performed By: #### T SH, BNP, HSTROPN, CMP #### [facility] [address] [place] [address] Dr. Jersye Butcher Lymphocytes/100 WBC (Bld) 10.2 % Critically low 20.5-60.[address] [facility] Comment on above: Performed By: #### T SH, BNP, HSTROPN, CMP #### [facility] [address] [place] [address] Dr. Jersey Butcher MANUAL DIFF REQ NO Normal [facility] Comment on above: Performed By: #### T SH, BNP, HSTROPN, CMP #### [facility] [address] [place] [address] Dr. Jersey Butcher MCH (RBC) [Entitic mass] 32.3 pg Normal 25.9-34.0 [facility] Comment on above: Performed By: #### T SH, BNP, HSTROPN, CMP #### [facility] [address] [place] [address] Dr. Jersey Butcher MCHC (RBC) [Mass/Vol] 34.6 g/dL Normal 29.9-35.[address] [facility] Comment on above: Performed By: #### T SH, BNP, HSTROPN, CMP #### [facility] [address] [place] [address] Dr. Jersey Butcher MCV (RBC) [Entitic vol] 93.3 fL Normal 80.0-94.[address] [facility] Comment on above: Performed By: #### T SH, BNP, HSTROPN, CMP #### [facility] [address] [place] [address] Dr. Jersey Butcher MONO # 0.8 103/ul Normal 0.3-0.[address] [facility] Comment on above: Performed By: #### T SH, BNP, HSTROPN, CMP #### [facility] [address] [place] [address] Dr. Jersey Butcher Monocytes/100 WBC (Bld) 9.4 % Normal 1.7-12.[address] [facility] Comment on above: Performed By: #### T SH, BNP, HSTROPN, CMP #### [facility] [address] [place] [address] Dr. Jersey Butcher NEUT # 6.6 103/ul Critically high 1.4-6.5 [facility] Comment on above: Performed By: #### T SH, BNP, HSTROPN, CMP #### [facility] [address] [place] [address] Dr. Jersey Butcher Neutrophils/100 WBC (Bld) 79.6 % Critically high 43.0-75.[address] [facility] Comment on above: Performed By: #### T SH, BNP, HSTROPN, CMP #### [facility] [address] [address] [address] Jersey Butcher Platelet mean volume (Bld) [Entitic vol] 10.1 fL Normal 9.5-13.5 [facility] Comment on above: Performed By: #### T SH, BNP, HSTROPN, CMP #### [facility] [address] [place] [address] Dr. Jersey Butcher PLT 227 103/ul Normal 150-450 [facility] Comment on above: Performed By: #### T SH, BNP, HSTROPN, CMP #### [facility] [address] [place] [address] Dr. Jersey Butcher RBC 4.49 106/ul Critically low 4.70-6.10 [facility] Comment on above: Performed By: #### T SH, BNP, HSTROPN, CMP #### [facility] [address] [place] [address] Dr. Jersey Butcher WBC 8.3 103/ul Normal 4.0-11.0 [facility] Comment on above: Performed By: #### T SH, BNP, HSTROPN, CMP #### [facility] [address] [place] [address] Dr. Jersey Butcher Covid-19 PCR ([facility])on 01-17 SARS-CoV-2 (COVID-19) RNA PILI+probe Ql (Unsp spec) Detected Critically abnormal NOT DETECTED [facility] Comment on above: Result Comment: This test is not yet approved or cleared by the [place] FDA. When there are no FDA-approved or cleared tests available, and other criteria are met, FDA can make tests available under an emergency access mechanism called an Emergency Use Authorization (EUA). The EUA for this test is supported by the [place] of Health and Human Service's declaration that [...] used). Performed By: #### C VDTB #### [facility] [address] [place] [address] Dr. Jersey Butcher INFLUENZA A AND B AGon 02-04 INFLUENZA A AG Negative Normal NEGATIVE SEE COMMENT [facility] Comment on above: Performed By: #### C BCMAN #### [facility] [address] [place] [address] Dr. Jersey Butcher INFLUENZA B AG Negative Normal NEGATIVE SEE COMMENT [facility] Comment on above: Performed By: #### C BCMAN #### [facility] [address] [place] [address] Dr. Jersey Butcher INTERNAL CONTROLS Within Normal Limits Normal Wi thin Normal Limits [facility] Comment on above: Performed By: #### C PHILMAN #### [facility] [address] [place] [address] Dr. Jersey Butcher PROF CHEM 8 (BAS METB)on Anion gap [Moles/Vol] 5.9 mmol/L Normal [facility] Comment on above: Performed By: #### T SH, BNP, HSTROPN, CMP #### [facility] [address] [place] [address] Dr. Jersey Butcher Calcium [Mass/Vol] 8.5 mg/dL Normal 8.5-10.1 [facility] Comment on above: Performed By: #### T SH, BNP, HSTROPN, CMP #### [facility] [address] [place] [address] Dr. Jersey Butcher Chloride [Moles/Vol] 96 mmol/L Critically low 98-[address] [facility] Comment on above: Performed By: #### T SH, BNP, HSTROPN, CMP #### [facility] [address] [place] [address] Dr. Jersey Butcher CO2 [Moles/Vol] 33.4 mmol/L Critically high 21.0-32.0 [facility] Comment on above: Performed By: #### T SH, BNP, HSTROPN, CMP #### [facility] [address] [address] [address] Jersey Butcher Creatinine [Mass/Vol] 1.17 mg/dL Normal 0.70-1.30 [facility] Comment on above: Performed By: #### T SH, BNP, HSTROPN, CMP #### [facility] [address] [address] [address] Jersey Butcher EGFR-AF SALVADOREAN >60 Normal >=60 [facility] Comment on above: Performed By: #### T SH, BNP, HSTROPN, CMP #### [facility] [address] [address] [address] Jersey Butcher EGFR-NON AF SALVADOREAN >60 Normal >=60 [facility] Comment on above: Performed By: #### T SH, BNP, HSTROPN, CMP #### [facility] [address] [address] [address] Jersey Butcher Glucose [Mass/Vol] 141 mg/dL Critically high 74-[address] [facility] Comment on above: Performed By: #### T SH, BNP, HSTROPN, CMP #### [facility] [address] [address] [address] Jersey Butcher Potassium [Moles/Vol] 3.3 mmol/L Critically low 3.5-5.1 [facility] Comment on above: Performed By: #### T SH, BNP, HSTROPN, CMP #### [facility] [address] [address] [address] Jersey Butcher Sodium [Moles/Vol] 132 mmol/L Critically low 136-145 [facility] Comment on above: Performed By: #### T SH, BNP, HSTROPN, CMP #### [facility] [address] [address] [address] Jersey Butcher Urea nitrogen [Mass/Vol] 15.0 mg/dL Normal 7.0-18.0 [facility] Comment on above: Performed By: #### T SH, BNP, HSTROPN, CMP #### [facility] [address] [address] [address] Jersey Butcher Urea nitrogen/Creatinine [Mass ratio] 12.8 mg/mg Normal [facility] Comment on above: Performed By: #### T SH, BNP, HSTROPN, CMP #### [facility] [address] [place], [place] [address] Dr. Jersey Butcher XR CHEST 1 Von [...] Nery MCKEON Date: 2022-02-04 01:58 Normal [facility] XR CSPINE 2_3 VIEWSon 2021 XR [...] ANTONIO HALL Date: 2022-01-26 15:50 Normal [address] [facility] Office Visit (Cardiology)on 01-12-2022 Follow-up visit Diagnoses/Problems Assessed Coronary artery disease without angina pectoris (414.00) (I25.10) Normal echocardiogram (V72.85) Hypertension (401.9) (I10) Hyperlipidemia (272.4) (E78.5) Sleep apnea (780.57) (G47.30) Morbid obesity with BMI of 50.0-59.9, adult (278.01,V85.43) (E66.01,Z68.43) Orders Morbid obesity with BMI of 50.0-59.9, adult Healthy Weight Tips; Status:Complete; Done: [id number] SocHx: Former smoker Tobacco Use Screening; Status:Complete; Done: [id number] Patient Instructions Please bring all medicines, vitamins, [...] meniscal repair with [facility]. Patient presents to [facility] to obtain cardiac risk stratification prior to a weight loss surgery (no details of procedure needed) Surgeon: unknown Planned date: none to date Prior cardiovascular history: 1. 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 Intermediate clinical markers -History of ischemic heart disease (prior TX, current chest pain secondary to ischemia, use [...] Social Hist (more content not included)... Normal [employer] Tobacco Screening.on 022 Adult depression screening assessment No [facility] [employer] 600 DO Work Phone: Tobacco use status [facility] b) No -[facility] [employer] 600 DO Work Phone: CBC AUTO DIFFon 01-11-2022 BASO # 0.0 103/ul Normal 0.0-0.1 [facility] Comment on above: Performed By: #### T SH, BNP, HSTROPN, CMP #### [facility] [address] [place] [address] Dr. Jersey Butcher Basophils/100 WBC (Bld) 0.4 % Normal 0.2-2.0 [facility] Comment on above: Performed By: #### T SH, BNP, HSTROPN, CMP #### [facility] [address] [place] [address] Dr. Jersey Butcher EO # 0.1 103/ul Normal 0.0-0.[address] [facility] Comment on above: Performed By: #### T SH, BNP, HSTROPN, CMP #### [facility] [address] [place] [address] Dr. Jersey Butcher Eosinophils/100 WBC (Bld) 1.6 % Normal 0.9-7.[address] [facility] Comment on above: Performed By: #### T SH, BNP, HSTROPN, CMP #### [facility] [address] [place] [address] Dr. Jersey Butcher Erythrocyte distribution width (RBC) [Ratio] 12.3 % Normal 11.0-15.[address] [facility] Comment on above: Performed By: #### T SH, BNP, HSTROPN, CMP #### [facility] [address] [place] [address] Dr. Jersey Butcher Hematocrit (Bld) [Volume fraction] 46.4 % Normal 42.0-54.[address] [facility] Comment on above: Performed By: #### T SH, BNP, HSTROPN, CMP #### [facility] [address] [place] [address] Dr. Jersey Butcher Hemoglobin (Bld) [Mass/Vol] 15.8 g/dL Normal 14.0-18.0 [facility] Comment on above: Performed By: #### T SH, BNP, HSTROPN, CMP #### [facility] [address] [place] [address] Dr. Jersey Butcher IG # 0.02 10e3/ul Normal 0.00-0.03 [facility] Comment on above: Performed By: #### T SH, BNP, HSTROPN, CMP #### [facility] [address] [place] [address] Dr. Jersey Butcher IG % 0.3 % Normal 0.0-0.5 [facility] Comment on above: Performed By: #### T SH, BNP, HSTROPN, CMP #### [facility] [address] [place] [address] Dr. Jersey Butcher LYMPH # 1.5 103/ul Normal 1.2-3.[address] [facility] Comment on above: Performed By: #### T SH, BNP, HSTROPN, CMP #### [facility] [address] [place] [address] Dr. Jersey Butcher Lymphocytes/100 WBC (Bld) 21.7 % Normal 20.5-60.0 [facility] Comment on above: Performed By: #### T SH, BNP, HSTROPN, CMP #### [facility] [address] [place] [address] Dr. Jersey Butcher MANUAL DIFF REQ NO Normal [facility] Comment on above: Performed By: #### T SH, BNP, HSTROPN, CMP #### [facility] [address] [place] [address] Dr. Jersey Butcher MCH (RBC) [Entitic mass] 31.5 pg Normal 25.9-34.0 [facility] Comment on above: Performed By: #### T SH, BNP, HSTROPN, CMP #### [facility] [address] [place] [address] Dr. Jersey Butcher MCHC (RBC) [Mass/Vol] 34.1 g/dL Normal 29.9-35.[address] [facility] Comment on above: Performed By: #### T SH, BNP, HSTROPN, CMP #### [facility] [address] [place] [address] Dr. Jersey Butcher MCV (RBC) [Entitic vol] 92.6 fL Normal 80.0-94.0 [facility] Comment on above: Performed By: #### T SH, BNP, HSTROPN, CMP #### [facility] [address] [place] [address] Dr. Jersey Butcher MONO # 0.7 103/ul Normal 0.3-0.[address] [facility] Comment on above: Performed By: #### T SH, BNP, HSTROPN, CMP #### [facility] [address] [place] [address] Dr. Jersey Butcher Monocytes/100 WBC (Bld) 9.7 % Normal 1.7-12.[address] [facility] Comment on above: Performed By: #### T SH, BNP, HSTROPN, CMP #### [facility] [address] [place] [address] Dr. Jersey Butcher NEUT # 4.6 103/ul Normal 1.4-6.[address] [facility] Comment on above: Performed By: #### T SH, BNP, HSTROPN, CMP #### [facility] [address] [place] [address] Dr. Jersey Butcher Neutrophils/100 WBC (Bld) 66.3 % Normal 43.0-75.[address] [facility] Comment on above: Performed By: #### T SH, BNP, HSTROPN, CMP #### [facility] [address] [place] [address] Dr. Jersey Butcher Platelet mean volume (Bld) [Entitic vol] 9.6 fL Normal 9.5-13.[address] [facility] Comment on above: Performed By: #### T SH, BNP, HSTROPN, CMP #### [facility] [address] [place] [address] Dr. Jersey Butcher PLT 270 103/ul Normal 150-[address] [facility] Comment on above: Performed By: #### T SH, BNP, HSTROPN, CMP #### [facility] [address] [place] [address] Dr. Jersey Butcher RBC 5.01 106/ul Normal 4.70-6.[address] [facility] Comment on above: Performed By: #### T SH, BNP, HSTROPN, CMP #### [facility] [address] [address] [address] Jersey Butcher WBC 6.9 103/ul Normal 4.0-11.0 [facility] Comment on above: Performed By: #### T SH, BNP, HSTROPN, CMP #### [facility] [address] [place] [address] Dr. Jersey Butcher GLYCOHEMOGLOBIN A1Con 2021 ADA RECOMMENDATION SEE BELOW Normal [facility] Comment on above: Result Comment: ADA RECOMMENDED LIMIT 4.0 - 6.0 ADA THERAPEUTIC TARGET < 7.0 ACTION SUGGESTED > 7.0 Performed By: #### T SH, BNP, HSTROPN, CMP #### [facility] [address] [place] [address] Dr. Jersey Butcher Glucose [Mass/Vol] 117 mg/dL Normal [facility] Comment on above: Performed By: #### T SH, BNP, HSTROPN, CMP #### [facility] [address] [place] [address] Dr. Jersey Butcher HbA1c (Bld) [Mass fraction] 5.7 % Normal 4.5-6.2 [facility] Comment on above: Performed By: #### T SH, BNP, HSTROPN, CMP #### [facility] [address] [place] [address] Dr. Jersey Butcher LIPID PROFILEon 01-11-2022 CHOL-HDL RATIO NORM SEE BELOW Normal [facility] Comment on above: Result Comment: 3.3 - 4.4 LOW RISK 4.4 - 7.1 AVERAGE RISK 7.1 - 11.0 MODERATE RISK >11.0 HIGH RISK Performed By: #### C BCMAN #### [facility] [address] [place] [address] Dr. Jersey Butcher Cholesterol [Mass/Vol] 133 mg/dL Normal <=200 [facility] Comment on above: Performed By: #### C BCMAN #### [facility] [address] [place] [address] Dr. Jersey Butcher Cholesterol in HDL [Mass/Vol] 54 mg/dL Normal 40-60 [facility] Comment on above: Performed By: #### C MADDIE #### [facility] [address] [address] [address] Jersey Butcher Cholesterol in LDL [Mass/Vol] 52.0 mg/dL Normal [facility] Comment on above: Performed By: #### C MADDIE #### [facility] [address] [address] [address] Jersey Butcher Cholesterol.total/C holesterol in HDL [Mass ratio] 2.5 {ratio} Normal [facility] Comment on above: Performed By: #### C MADDIE #### [facility] [address] [address] [address] Jersey Butcher HDL NORMAL > or = 60 mg/dl - LO W CARDIOVASCULAR RISK <40 mg/dl - HIGH CARDIOVASCULAR RISK Normal [facility] Comment on above: Performed By: #### C MADDIE #### [facility] [address] [place] [address] Dr. Jersey Butcher LDL CALC NORMAL SEE BELOW Normal [facility] Comment on above: Result Comment: <100 mg/dl OPTIMAL 100 - 129 mg/dl NEAR OR ABOVE OPTIMAL 130 - 159 mg/dl BORDERLINE HIGH 160 - 189 mg/dl HIGH >190 mg/dl VERY HIGH Performed By: #### C MADDIE #### [facility] [address] [address] [address] Jersey Butcher Triglyceride [Mass/Vol] 135 mg/dL Normal <=150 [facility] Comment on above: Performed By: #### C MADDIE #### [facility] [address] [address] [address] Jersey Butcher VLDL CALC 27.0 mg/dL Normal [facility] Comment on above: Performed By: #### C MADDIE #### [facility] [address] [address] [address] Jersey Butcher PROF 14(COMP METB)on 022 Albumin [Mass/Vol] 3.5 g/dL Normal 3.4-5.0 [facility] Comment on above: Performed By: #### C MADDIE #### [facility] [address] [place] [address] Dr. Jersey Butcher Albumin/Globulin [Mass ratio] 1.0 {ratio} Normal [facility] Comment on above: Performed By: #### C MADDIE #### [facility] [address] [place] [address] Dr. Jersey Butcher ALP [Catalytic activity/Vol] 114 U/L Normal 46-116 [facility] Comment on above: Performed By: #### C MADDIE #### [facility] [address] [place] [address] Dr. Jersey Butcher ALT [Catalytic activity/Vol] 64 U/L Critically high 16-63 [facility] Comment on above: Performed By: #### C MADDIE #### [facility] [address] [place] [address] Dr. Jersey Butcher Anion gap [Moles/Vol] 9.1 mmol/L Normal [facility] Comment on above: Performed By: #### C MADDIE #### [facility] [address] [place] [address] Dr. Jersey Butcher AST [Catalytic activity/Vol] 81 U/L Critically high 15-37 [facility] Comment on above: Performed By: #### C MADDIE #### [facility] [address] [place] [address] Dr. Jersey Butcher Bilirubin [Mass/Vol] 0.9 mg/dL Normal 0.2-1.0 [facility] Comment on above: Performed By: #### C MADDIE #### [facility] [address] [place] [address] Dr. Jersey Butcher Calcium [Mass/Vol] 9.0 mg/dL Normal 8.5-10.1 [facility] Comment on above: Performed By: #### C MADDIE #### [facility] [address] [place] [address] Dr. Jersey Butcher Chloride [Moles/Vol] 99 mmol/L Normal 98-107 [facility] Comment on above: Performed By: #### C MADDIE #### [facility] [address] [place] [address] Dr. Jersey Butcher CO2 [Moles/Vol] 34.9 mmol/L Critically high 21.0-32.0 [facility] Comment on above: Performed By: #### C BCMAN #### [facility] [address] [place] [address] Dr. Jersey Butcher Creatinine [Mass/Vol] 1.04 mg/dL Normal 0.70-1.[address] [facility] Comment on above: Performed By: #### C BCMAN #### [facility] [address] [place] [address] Dr. Jersey Butcher EGFR-AF SALVADOREAN >60 Normal >=60 [facility] Comment on above: Performed By: #### C BCMAN #### [facility] [address] [place] [address] Dr. Jersey Butcher EGFR-NON AF SALVADOREAN >60 Normal >=60 [facility] Comment on above: Performed By: #### C BCMAN #### [facility] [address] [place] [address] Dr. Jersey Butcher Globulin (S) [Mass/Vol] 3.5 g/dL Normal [facility] Comment on above: Performed By: #### C BCMAN #### [facility] [address] [place] [address] Dr. Jersey Butcher Glucose [Mass/Vol] 101 mg/dL Normal 74-106 [facility] Comment on above: Performed By: #### C BCMAN #### [facility] [address] [place] [address] Dr. Jersey Butcher Potassium [Moles/Vol] 4.0 mmol/L Normal 3.5-5.[address] [facility] Comment on above: Performed By: #### C BCMAN #### [facility] [address] [place] [address] Dr. Jersey Butcher Protein [Mass/Vol] 7.0 g/dL Normal 6.4-8.2 [facility] Comment on above: Performed By: #### C BCMAN #### [facility] [address] [place] [address] Dr. Jersey Butcher Sodium [Moles/Vol] 139 mmol/L Normal 136-145 [facility] Comment on above: Performed By: #### C MADDIE #### [facility] [address] [address] [address] Jersey Butcher Urea nitrogen [Mass/Vol] 17.0 mg/dL Normal 7.0-18.0 [facility] Comment on above: Performed By: #### C MADDIE #### [facility] [address] [address] [address] Jersey Butcher Urea nitrogen/Creatinine [Mass ratio] 16.3 mg/mg Normal [facility] Comment on above: Performed By: #### C MADDIE #### [facility] [address] [address] LSPINE WO CONon [...] DONG BUNDY Date: 2021-12-10 22:56 Normal [facility] CBC AUTO DIFFon 11-07-2021 BASO # 0.0 103/ul Normal 0.0-0.1 [facility] Comment on above: Performed By: #### T SH, BNP, HSTROPN, CMP #### [facility] [address] [place] [address] Dr. Jersey Butcher Basophils/100 WBC (Bld) 0.4 % Normal 0.2-2.[address] [facility] Comment on above: Performed By: #### T SH, BNP, HSTROPN, CMP #### [facility] [address] [place] [address] Dr. Jersey Butcher EO # 0.1 103/ul Normal 0.0-0.[address] [facility] Comment on above: Performed By: #### T SH, BNP, HSTROPN, CMP #### [facility] [address] [place] [address] Dr. Jersey Butcher Eosinophils/100 WBC (Bld) 1.1 % Normal 0.9-7.[address] [facility] Comment on above: Performed By: #### T SH, BNP, HSTROPN, CMP #### [facility] [address] [place] [address] Dr. Jersey Butcher Erythrocyte distribution width (RBC) [Ratio] 12.3 % Normal 11.0-15.0 [facility] Comment on above: Performed By: #### T SH, BNP, HSTROPN, CMP #### [facility] [address] [place] [address] Dr. Jersey Butcher Hematocrit (Bld) [Volume fraction] 44.9 % Normal 42.0-54.0 [facility] Comment on above: Performed By: #### T SH, BNP, HSTROPN, CMP #### [facility] [address] [place] [address] Dr. Jersey Butcher Hemoglobin (Bld) [Mass/Vol] 15.2 g/dL Normal 14.0-18.[address] [facility] Comment on above: Performed By: #### T SH, BNP, HSTROPN, CMP #### [facility] [address] [place] [address] Dr. Jersey Butcher IG # 0.02 10e3/ul Normal 0.00-0.[address] [facility] Comment on above: Performed By: #### T SH, BNP, HSTROPN, CMP #### [facility] [address] [place] [address] Dr. Jersey Butcher IG % 0.2 % Normal 0.0-0.5 [facility] Comment on above: Performed By: #### T SH, BNP, HSTROPN, CMP #### [facility] [address] [place] [address] Dr. Jersey Butcher LYMPH # 1.8 103/ul Normal 1.2-3.[address] [facility] Comment on above: Performed By: #### T SH, BNP, HSTROPN, CMP #### [facility] [address] [place] [address] Dr. Jersey Butcher Lymphocytes/100 WBC (Bld) 22.5 % Normal 20.5-60.0 [facility] Comment on above: Performed By: #### T SH, BNP, HSTROPN, CMP #### [facility] [address] [place] [address] Dr. Jersey Butcher MANUAL DIFF REQ NO Normal [facility] Comment on above: Performed By: #### T SH, BNP, HSTROPN, CMP #### [facility] [address] [place] [address] Dr. Jersey Butcher MCH (RBC) [Entitic mass] 31.6 pg Normal 25.9-34.0 [facility] Comment on above: Performed By: #### T SH, BNP, HSTROPN, CMP #### [facility] [address] [place] [address] Dr. Jersey Butcher MCHC (RBC) [Mass/Vol] 33.9 g/dL Normal 29.9-35.[address] [facility] Comment on above: Performed By: #### T SH, BNP, HSTROPN, CMP #### [facility] [address] [place] [address] Dr. Jersey Butcher MCV (RBC) [Entitic vol] 93.3 fL Normal 80.0-94.0 [facility] Comment on above: Performed By: #### T SH, BNP, HSTROPN, CMP #### [facility] [address] [place] [address] Dr. Jersey Butcher MONO # 0.9 103/ul Critically high 0.3-0.8 [facility] Comment on above: Performed By: #### T SH, BNP, HSTROPN, CMP #### [facility] [address] [address] [address] Jersey Butcher Monocytes/100 WBC (Bld) 11.1 % Normal 1.7-12.[address] [facility] Comment on above: Performed By: #### T SH, BNP, HSTROPN, CMP #### [facility] [address] [address] [address] Jersey Butcher NEUT # 5.2 103/ul Normal 1.4-6.[address] [facility] Comment on above: Performed By: #### T SH, BNP, HSTROPN, CMP #### [facility] [address] [place] [address] Dr. Jersey Butcher Neutrophils/100 WBC (Bld) 64.7 % Normal 43.0-75.[address] [facility] Comment on above: Performed By: #### T SH, BNP, HSTROPN, CMP #### [facility] [address] [place] [address] Dr. Jersey Butcher Platelet mean volume (Bld) [Entitic vol] 10.1 fL Normal 9.5-13.[address] [facility] Comment on above: Performed By: #### T SH, BNP, HSTROPN, CMP #### [facility] [address] [address] [address] Jersey Butcher PLT 265 103/ul Normal 150-[address] [facility] Comment on above: Performed By: #### T SH, BNP, HSTROPN, CMP #### [facility] [address] [address] [address] Jersey Butcher RBC 4.81 106/ul Normal 4.70-6.[address] [facility] Comment on above: Performed By: #### T SH, BNP, HSTROPN, CMP #### [facility] [address] [place] [address] Dr. Jersey Butcher WBC 8.1 103/ul Normal 4.0-11.[address] [facility] Comment on above: Performed By: #### T SH, BNP, HSTROPN, CMP #### [facility] [address] [address] [address] CHEST WO CONon [...] EUSEBIA VICTORIA Date: 2021-11-06 23:56 Normal [facility] PROF 14(COMP METB)on 022 Albumin [Mass/Vol] 3.5 g/dL Normal 3.4-5.0 [facility] Comment on above: Performed By: #### C VDTBH #### [facility] [address] [place] [address] Dr. Jersey Butcher Albumin/Globulin [Mass ratio] 1.0 {ratio} Normal [facility] Comment on above: Performed By: #### C VDTBH #### [facility] [address] [address] [address] Jersey Butcher ALP [Catalytic activity/Vol] 117 U/L Critically high 46-116 [facility] Comment on above: Performed By: #### C VDTBH #### [facility] [address] [place] [address] Dr. Jersey Butcher ALT [Catalytic activity/Vol] 39 U/L Normal 16-63 [facility] Comment on above: Performed By: #### C VDTBH #### [facility] [address] [place] [address] Dr. Jersey Butcher Anion gap [Moles/Vol] 9.3 mmol/L Normal [facility] Comment on above: Performed By: #### C VDTBH #### [facility] [address] [place] [address] Dr. Jersey Butcher AST [Catalytic activity/Vol] 20 U/L Normal 15-37 [facility] Comment on above: Performed By: #### C VDTBH #### [facility] [address] [place] [address] Dr. Jersey Butcher Bilirubin [Mass/Vol] 0.4 mg/dL Normal 0.2-1.0 [facility] Comment on above: Performed By: #### C VDTBH #### [facility] [address] [place] [address] Dr. Jersey Butcher Calcium [Mass/Vol] 9.1 mg/dL Normal 8.5-10.1 [facility] Comment on above: Performed By: #### C VDTBH #### [facility] [address] [place] [address] Dr. Jersey Butcher Chloride [Moles/Vol] 99 mmol/L Normal 98-107 [facility] Comment on above: Performed By: #### C VDTBH #### [facility] [address] [address] [address] Jersey Butcher CO2 [Moles/Vol] 33.2 mmol/L Critically high 21.0-32.0 [facility] Comment on above: Performed By: #### C VDTBH #### [facility] [address] [address] [address] Jersey Butcher Creatinine [Mass/Vol] 1.21 mg/dL Normal 0.70-1.30 [facility] Comment on above: Performed By: #### C VDTBH #### [facility] [address] [place] [address] Dr. Jersey Butcher EGFR-AF SALVADOREAN >60 Normal >=60 [facility] Comment on above: Performed By: #### C VDTBH #### [facility] [address] [place] [address] Dr. Jersey Butcher EGFR-NON AF SALVADOREAN >60 Normal >=60 [facility] Comment on above: Performed By: #### C VDTBH #### [facility] [address] [address] [address] Jersey Butcher Globulin (S) [Mass/Vol] 3.5 g/dL Normal [facility] Comment on above: Performed By: #### C VDTBH #### [facility] [address] [place] [address] Dr. Jersey Butcher Glucose [Mass/Vol] 102 mg/dL Normal 74-106 [facility] Comment on above: Performed By: #### C VDTBH #### [facility] [address] [place] [address] Dr. Jersey Butcher Potassium [Moles/Vol] 3.5 mmol/L Normal 3.5-5.[address] [facility] Comment on above: Performed By: #### C VDTBH #### [facility] [address] [place] [address] Dr. Jersey Butcher Protein [Mass/Vol] 7.0 g/dL Normal 6.4-8.2 [facility] Comment on above: Performed By: #### C VDTBH #### [facility] [address] [address] [address] Jersey Butcher Sodium [Moles/Vol] 138 mmol/L Normal 136-145 [facility] Comment on above: Performed By: #### C VDTBH #### [facility] [address] [address] [address] Jersey Butcher Urea nitrogen [Mass/Vol] 19.0 mg/dL Critically high 7.0-18.0 [facility] Comment on above: Performed By: #### C VDTBH #### [facility] [address] [address] [address] Jersey Butcher Urea nitrogen/Creatinine [Mass ratio] 15.7 mg/mg Normal [facility] Comment on above: Performed By: #### C VDTBH #### [facility] Laboratory [address] [address] [address] Jersey Butcher XR CHEST 1 Von [...] MARCO ANTONIO FRIEDMAN Date: 2021-11-06 22:36 Normal [facility] IO EKG Electrocardiogram- 12 [place] 04-11-2021 IO EKG Electrocardiogram- 12 Lead See Scanned Document [facility] [employer] 600 DO Work Phone: Tobacco Screening.on 021 Fall risk assessment a) No falls within the last year [facility] [employer] 600 DO Work Phone: Tobacco use status [facility]PHS b) No [facility] [employer] 600 DO Work Phone: Vital Signs Date Time Vital Sign Value Performing Clinician Facility 02-02-2025 14:44-0400 Body mass index (BMI) [Ratio] 56.32 kg/m2 Eusebiakelley Shahz TRAIN RESERVATION CLERK Work Phone: [facility] 02-02-2025 14:44-0400 Body temperature 97.7 [degF] Eusebia Thanhholz TRAIN RESERVATION CLERK Work Phone: [facility] 02-02-2025 14:44-0400 Body weight 168.01 kg Eusebia Thanhholz TRAIN RESERVATION CLERK Work Phone: [facility] 02-02-2025 14:44-0400 Diastolic blood pressure 60 mm[Hg] Eusebia Thanhholz TRAIN RESERVATION CLERK Work Phone: [facility] 02-02-2025 14:44-0400 Heart rate 61 /min Eusebia Alyssaz TRAIN RESERVATION CLERK Work Phone: [facility] 02-02-2025 14:44-0400 Respiratory rate 26 /min Eusebia Thanhholz TRAIN RESERVATION CLERK Work Phone: [facility] 02-02-2025 14:44-0400 SaO2% (BldA) [Mass fraction] 91 % Eusebia Thanhholz TRAIN RESERVATION CLERK Work Phone: [facility] 02-02-2025 14:44-0400 Systolic blood pressure 100 mm[Hg] Eusebia Thanhholz TRAIN RESERVATION CLERK Work Phone: [facility] 12-22-2024 14:33-0400 Body mass index (BMI) [Ratio] 55.01 kg/m2 Eusebia Thanhholz TRAIN RESERVATION CLERK Work Phone: [facility] 12-22-2024 14:33-0400 Body temperature 97.59 [degF] Eusebia Thanhholz TRAIN RESERVATION CLERK Work Phone: [facility] 12-22-2024 14:33-0400 Body weight 164.11 kg Eusebia Thanhholz TRAIN RESERVATION CLERK Work Phone: [facility] 12-22-2024 14:33-0400 Diastolic blood pressure 50 mm[Hg] Eusebia Aichholz TRAIN RESERVATION CLERK Work Phone: [facility] 12-22-2024 14:33-0400 Heart rate 90 /min Eusebia Terrell TRAIN RESERVATION CLERK Work Phone: [facility] 12-22-2024 14:33-0400 Respiratory rate 20 /min Eusebia Terrell TRAIN RESERVATION CLERK Work Phone: [facility] 12-22-2024 14:33-0400 SaO2% (BldA) [Mass fraction] 93 % Eusebia Terrell TRAIN RESERVATION CLERK Work Phone: [facility] 12-22-2024 14:33-0400 Systolic blood pressure 80 mm[Hg] Eusebia Terrell TRAIN RESERVATION CLERK Work Phone: [facility] 10-15-2024 09:18-0400 Body height 172.7 cm Madison Blanco MD Work Phone: [facility] 10-15-2024 09:18-0400 Body mass index (BMI) [Ratio] 54.89 kg/m2 Madison Blanco MD Work Phone: [facility] 10-15-2024 09:18-0400 Body weight 163.75 kg Madison Blanco MD Work Phone: [facility] 10-15-2024 09:18-0400 Diastolic blood pressure 74 mm[Hg] Madison Blanco MD Work Phone: [facility] 10-15-2024 09:18-0400 Heart rate 64 /min Madison Blanco MD Work Phone: [facility] 10-15-2024 09:18-0400 Systolic blood pressure 112 mm[Hg] Madison Blanco MD Work Phone: [facility] 09-18-2024 11:30-0400 Diastolic blood pressure 60 mm[Hg] Eusebia Terrell TRAIN RESERVATION CLERK Work Phone: [facility] 09-18-2024 11:30-0400 Systolic blood pressure 88 mm[Hg] Eusebia Shahz TRAIN RESERVATION CLERK Work Phone: [facility] 09-18-2024 11:06-0400 Body mass index (BMI) [Ratio] 54.49 kg/m2 Eusebiakelley Shahz TRAIN RESERVATION CLERK Work Phone: [facility] 09-18-2024 11:06-0400 Body temperature 98.4 [degF] Eusebia Alyssaz TRAIN RESERVATION CLERK Work Phone: [facility] 09-18-2024 11:06-0400 Body weight 162.57 kg Eusebiakelley Shahz TRAIN RESERVATION CLERK Work Phone: [facility] 09-18-2024 11:06-0400 Heart rate 67 /min Eusebiakelley Shahz TRAIN RESERVATION CLERK Work Phone: [facility] 09-18-2024 11:06-0400 Respiratory rate 22 /min Eusebiakelley Shahz TRAIN RESERVATION CLERK Work Phone: [facility] 09-18-2024 11:06-0400 SaO2% (BldA) [Mass fraction] 92 % Eusebiakelley Shahz TRAIN RESERVATION CLERK Work Phone: [facility] 06-19-2024 09:57-0500 Body height 172.7 cm Eusebia Shahz TRAIN RESERVATION CLERK Work Phone: [facility] 06-19-2024 09:57-0500 Body mass index (BMI) [Ratio] 55.86 kg/m2 Eusebiakelley Shahz TRAIN RESERVATION CLERK Work Phone: [facility] 06-19-2024 09:57-0500 Body temperature 97.81 [degF] Eusebia Alyssaz TRAIN RESERVATION CLERK Work Phone: [facility] 06-19-2024 09:57-0500 Body weight 166.65 kg Eusebiakelley Lawholz TRAIN RESERVATION CLERK Work Phone: [facility] 06-19-2024 09:57-0500 Diastolic blood pressure 68 mm[Hg] Eusebia Thanhholz TRAIN RESERVATION CLERK Work Phone: [facility] 06-19-2024 09:57-0500 Heart rate 68 /min Eusebia Aichholz TRAIN RESERVATION CLERK Work Phone: [facility] 06-19-2024 09:57-0500 Respiratory rate 24 /min Eusebia Aichholz TRAIN RESERVATION CLERK Work Phone: [facility] 06-19-2024 09:57-0500 SaO2% (BldA) [Mass fraction] 93 % Eusebia Aichholz TRAIN RESERVATION CLERK Work Phone: [facility] 06-19-2024 09:57-0500 Systolic blood pressure 88 mm[Hg] Eusebia Aichholz TRAIN RESERVATION CLERK Work Phone: [facility] 04-09-2024 16:05-0400 Body mass index (BMI) [Ratio] 55.71 kg/m2 Eusebia Aichholz TRAIN RESERVATION CLERK Work Phone: [facility] 04-09-2024 16:05-0400 Body temperature 98.1 [degF] Eusebia Aichholz TRAIN RESERVATION CLERK Work Phone: [facility] 04-09-2024 16:05-0400 Body weight 166.2 kg Eusebia Aichholz TRAIN RESERVATION CLERK Work Phone: [facility] 04-09-2024 16:05-0400 Diastolic blood pressure 82 mm[Hg] Eusebia Aichholz TRAIN RESERVATION CLERK Work Phone: [facility] 04-09-2024 16:05-0400 Heart rate 95 /min Eusebia Aichholz TRAIN RESERVATION CLERK Work Phone: [facility] 04-09-2024 16:05-0400 Respiratory rate 19 /min Eusebia Aichholz TRAIN RESERVATION CLERK Work Phone: [facility] 04-09-2024 16:05-0400 SaO2% (BldA) [Mass fraction] 93 % Eusebia Aichholz TRAIN RESERVATION CLERK Work Phone: [facility] 04-09-2024 16:05-0400 Systolic blood pressure 120 mm[Hg] Eusebia Aichholz TRAIN RESERVATION CLERK Work Phone: [facility] 02-06-2024 09:06-0400 Body height 172.7 cm Eusebia Shahz TRAIN RESERVATION CLERK Work Phone: [facility] 02-06-2024 09:06-0400 Body mass index (BMI) [Ratio] 56.14 kg/m2 Eusebiakelley Shahz TRAIN RESERVATION CLERK Work Phone: [facility] 02-06-2024 09:06-0400 Body temperature 98.1 [degF] Eusebia Shahz TRAIN RESERVATION CLERK Work Phone: [facility] 02-06-2024 09:06-0400 Body weight 167.47 kg Eusebia Shahz TRAIN RESERVATION CLERK Work Phone: [facility] 02-06-2024 09:06-0400 Diastolic blood pressure 76 mm[Hg] Eusebia Shahz TRAIN RESERVATION CLERK Work Phone: [facility] 02-06-2024 09:06-0400 Heart rate 95 /min Eusebiakelley Shahz TRAIN RESERVATION CLERK Work Phone: [facility] 02-06-2024 09:06-0400 Respiratory rate 20 /min Eusebia Thanhholz TRAIN RESERVATION CLERK Work Phone: [facility] 02-06-2024 09:06-0400 SaO2% (BldA) [Mass fraction] 94 % Eusebia Shahz TRAIN RESERVATION CLERK Work Phone: [facility] 02-06-2024 09:06-0400 Systolic blood pressure 102 mm[Hg] Eusebia Lawholz TRAIN RESERVATION CLERK Work Phone: [facility] 01-21-2024 14:28-0400 Body height 172.7 cm Sara Yevgeniy HEAD OF [employer] HANDLER/ DEPUTY Work Phone: [facility] 01-21-2024 14:28-0400 Body mass index (BMI) [Ratio] 55.22 kg/m2 Sara Yevgeniy HEAD OF [employer]-K 9 HANDLER/ DEPUTY Work Phone: [facility] 01-21-2024 14:28-0400 Body weight 164.75 kg Sara Yevgeniy [employer] 9 HANDLER/ DEPUTY Work Phone: [facility] 01-21-2024 14:28-0400 Diastolic blood pressure 58 mm[Hg] Sara Vuong APRN-NATALIA Work Phone: [facility] 01-21-2024 14:28-0400 Heart rate 90 /min Sara Vuong APRN-NATALIA Work Phone: [facility] 01-21-2024 14:28-0400 SaO2% (BldA) [Mass fraction] 95 % Sara Vuong APRN-NATALIA Work Phone: [facility] 01-21-2024 14:28-0400 Systolic blood pressure 90 mm[Hg] Sara Vuong APRN-K 9 HANDLER/ DEPUTY Work Phone: [facility] 10-25-2023 14:27-0400 Body height 172.7 cm Lisa Cervantes DO Work Phone: [facility] 10-25-2023 14:27-0400 Body mass index (BMI) [Ratio] 55.62 kg/m2 Lisa Cervantes DO Work Phone: [facility] 10-25-2023 14:27-0400 Body weight 165.93 kg Lisa Cervantes DO Work Phone: [facility] 10-25-2023 14:27-0400 Diastolic blood pressure 49 mm[Hg] Lisa Cervantes DO Work Phone: [facility] 10-25-2023 14:27-0400 Heart rate 63 /min Lisa Cervantes DO Work Phone: [facility] 10-25-2023 14:27-0400 SaO2% (BldA) [Mass fraction] 94 % Lisa Cervantes DO Work Phone: [facility] Comment on above: Arrived on 3Lnc of O2 10-25-2023 14:27-0400 Systolic blood pressure 83 mm[Hg] Lisa Cervantes DO Work Phone: [facility] 10-08-2023 10:53-0400 Body height 172.7 cm Madison Blanco MD Work Phone: [facility] 10-08-2023 10:53-0400 Body mass index (BMI) [Ratio] 56.26 kg/m2 Madison Blanco MD Work Phone: [facility] 10-08-2023 10:53-0400 Body weight 167.83 kg Madison Blanco MD Work Phone: [facility] 10-08-2023 10:53-0400 Diastolic blood pressure 70 mm[Hg] Madison Blanco MD Work Phone: [facility] 10-08-2023 10:53-0400 Heart rate 64 /min Madison Blanco MD Work Phone: [facility] 10-08-2023 10:53-0400 Systolic blood pressure 110 mm[Hg] Madison Blanco MD Work Phone: [facility] 08-20-2023 10:47-0500 Body height 172.7 cm Samara Noel MD Work Phone: [facility] 08-20-2023 10:47-0500 Body mass index (BMI) [Ratio] 57.21 kg/m2 Samara Noel MD Work Phone: [facility] 08-20-2023 10:47-0500 Body weight 170.64 kg Samara Noel MD Work Phone: [facility] 08-20-2023 10:47-0500 Diastolic blood pressure 66 mm[Hg] Samara Noel MD Work Phone: [facility] 08-20-2023 10:47-0500 Heart rate 88 /min Samara Noel MD Work Phone: [facility] 08-20-2023 10:47-0500 SaO2% (BldA) [Mass fraction] 95 % Samara Noel MD Work Phone: [facility] 08-20-2023 10:47-0500 Systolic blood pressure 139 mm[Hg] Samara Noel MD Work Phone: [facility] 07-26-2023 13:20-0500 Body height 172.7 cm Faith Mandujano MD Work Phone: [facility] 07-26-2023 13:20-0500 Body mass index (BMI) [Ratio] 55.95 kg/m2 Faith Mandujano MD Work Phone: [facility] 07-26-2023 13:20-0500 Body weight 166.92 kg Faith Mandujano MD Work Phone: [facility] 07-26-2023 13:20-0500 Diastolic blood pressure 70 mm[Hg] Faith Mandujano MD Work Phone: [facility] 07-26-2023 13:20-0500 Heart rate 115 /min Faith Mandujano MD Work Phone: [facility] 07-26-2023 13:20-0500 SaO2% (BldA) [Mass fraction] 94 % Faith Mandujano MD Work Phone: [facility] 07-26-2023 13:20-0500 Systolic blood pressure 104 mm[Hg] Faith Mandujano MD Work Phone: [facility] 07-19-2023 09:48-0500 Body height 172.7 cm Eusebia Terrell TRAIN RESERVATION CLERK Work Phone: [facility] 07-19-2023 09:48-0500 Body mass index (BMI) [Ratio] 56.2 kg/m2 Eusebia Terrell TRAIN RESERVATION CLERK Work Phone: [facility] 07-19-2023 09:48-0500 Body temperature 97.5 [degF] Eusebia Terrell TRAIN RESERVATION CLERK Work Phone: [facility] 07-19-2023 09:48-0500 Body weight 167.65 kg Eusebia Lawade TRAIN RESERVATION CLERK Work Phone: [facility] 07-19-2023 09:48-0500 Diastolic blood pressure 88 mm[Hg] Eusebia Lawmaeganz TRAIN RESERVATION CLERK Work Phone: [facility] 07-19-2023 09:48-0500 Heart rate 95 /min Eusebia Lawade TRAIN RESERVATION CLERK Work Phone: [facility] 07-19-2023 09:48-0500 Respiratory rate 24 /min Eusebiakelley Lawmaeganz TRAIN RESERVATION CLERK Work Phone: [facility] 07-19-2023 09:48-0500 SaO2% (BldA) [Mass fraction] 95 % Eusebia Lawade TRAIN RESERVATION CLERK Work Phone: [facility] 07-19-2023 09:48-0500 Systolic blood pressure 130 mm[Hg] Eusebia Socorrotommyade TRAIN RESERVATION CLERK Work Phone: [facility] 04-13-2023 12:07-0400 Body height 172.7 cm Justyn Mondragon MD Work Phone: [facility] 04-13-2023 12:07-0400 Body mass index (BMI) [Ratio] 54.74 kg/m2 Justyn Mondragon MD Work Phone: [facility] 04-13-2023 12:07-0400 Body weight 163.29 kg Justyn Mondragon MD Work Phone: [facility] 04-13-2023 12:07-0400 Diastolic blood pressure 80 mm[Hg] Justyn Mondragon MD Work Phone: [facility] 04-13-2023 12:07-0400 Systolic blood pressure 134 mm[Hg] Justyn Mondragon MD Work Phone: [facility] 10-02-2022 11:00-0400 52 1 Eusebia Terrell Work Phone: [facility] 305 DO Work Phone: Comment on above: [id number] 07-19-2022 10:33-0500 Body height 173.99 cm Eusebia Lawholayden Work Phone: [facility] 305 DO Work Phone: 07-19-2022 10:33-0500 Body mass index (BMI) [Ratio] 50.68 kg/m2 Eusebia Lawholz Work Phone: [facility] 305 DO Work Phone: 07-19-2022 10:33-0500 Body surface area Derived from formula 2.57 m2 Eusebia Lawholz Work Phone: [facility] 305 DO Work Phone: 07-19-2022 10:33-0500 Body weight 153.41 kg Eusebia Lawholz Work Phone: [facility] 305 DO Work Phone: 07-19-2022 10:33-0500 Diastolic blood pressure 82 mm[Hg] Eusebia Lawholz Work Phone: [facility] 305 DO Work Phone: 07-19-2022 10:33-0500 Heart rate 64 /min Eusebia Lawholz Work Phone: [facility] 305 DO Work Phone: 07-19-2022 10:33-0500 Systolic blood pressure 132 mm[Hg] Eusebia Lawholz Work Phone: [facility] 305 DO Work Phone: 01-12-2022 14:42-0400 Body height 172.72 cm Eusebia Lawholz Work Phone: [facility] 600 DO Work Phone: 01-12-2022 14:42-0400 Body mass index (BMI) [Ratio] 51.7 kg/m2 Eusebia Quintanillahholz Work Phone: [facility] 600 DO Work Phone: 01-12-2022 14:42-0400 Body surface area Derived from formula 2.56 m2 Eusebia Quintanillahholz Work Phone: [facility] 600 DO Work Phone: 01-12-2022 14:42-0400 Body weight 154.22 kg Eusebia Quintanillahholz Work Phone: [facility] 600 DO Work Phone: 01-12-2022 14:42-0400 Diastolic blood pressure 80 mm[Hg] Eusebia Quintanillahholz Work Phone: [facility] 600 DO Work Phone: 01-12-2022 14:42-0400 Heart rate 66 /min [facility]eb[facility]holz [facility] DO Work Phone: 01-12-2022 14:42-0400 Systolic blood pressure 136 mm[Hg] Eusebia Lawholz Work Phone: [facility] 600 DO Work Phone: 04-11-2021 12:45-0400 Body height 172.72 cm Eusebia Quintanillahholz Work Phone: [facility] 600 DO Work Phone: 04-11-2021 12:45-0400 Body mass index (BMI) [Ratio] 53.52 kg/m2 Eusebia [facility]anillahholz [facility] DO Work Phone: 04-11-2021 12:45-0400 Body surface area Derived from formula 2.6 m2 Eusebia Terrell Work Phone: [facility] [employer] 600 DO Work Phone: 04-11-2021 12:45-0400 Body weight 159.67 kg [facility]ebia Terrell [facility] Work Phone: 04-11-2021 12:45-0400 Diastolic blood pressure 78 mm[Hg] Eusebia Nela Quintanillatommyade Work Phone: [facility] [employer] 600 DO Work Phone: 04-11-2021 12:45-0400 Heart rate 74 /min Eusebia Nela Quintanillatommyade Work Phone: [facility] [employer] 600 DO Work Phone: 04-11-2021 12:45-0400 Systolic blood pressure 124 mm[Hg] Eusebia Nela Quintanillatommyade Work Phone: [facility] [employer] 600 DO Work Phone: Encounters Encounter Date Encounter Type Care Provider Facility Start: 02-02-2025 End: 02-02-2025 Office outpatient visit 25 minutes Eusebia Terrell TRAIN RESERVATION CLERK Work Phone[facility] Comment on above: Bilateral lower leg cellulitis (Primary Dx); Venous insufficiency of both lower extremities; Primary hypertension ; Paroxysmal atrial fibrillation (HCC); Atrial fibrillation, unspecified type (HCC); Chronic obstructive pulmonary disease, unspecified COPD type (HCC); Thyroid nodule ; Bilateral lower extremity edema; Class 3 severe obesity due to excess calories with serious comorbidity and body mass index (BMI) of 50.0 to 59.9 in adult ([facility]) Start: 02-02-2025 End: 02-02-2025 ambulatory EUSEBIA TERRELL Not Available Start: 01-24-2025 End: 01-25-2025 Emergency department patient visit EUSEBIA TERRELL [facility] Start: 01-02-2025 End: 01-02-2025 External Result Encounter Eusebia Terrell TRAIN RESERVATION CLERK Work Phone: [facility] Unsolicited Start: 01-02-2025 End: 01-02-2025 External Result Encounter Eusebia Terrell NP Work Phone: [facility] Unsolicited Start: 01-02-2025 End: 01-05-2025 Orders Only Lisa Cervantes DO Work Phone: [facility] Comment on above: Chronic obstructive pulmonary disease, unspecified COPD type ([facility]-H[facility]) (Primary Dx) Start: 12-22-2024 End: 12-22-2024 ambulatory EUSEBIA TERRELL Not Available Start: 12-22-2024 End: 12-22-2024 Office outpatient visit 25 minutes Eusebia Terrell TRAIN RESERVATION CLERK Work Phone: [facility] Comment on above: Primary hypertension (Primary Dx); CATERINA (obstructive sleep apnea); Chronic diastolic (congestive) heart failure (HCC); Coronary artery disease involving [place] coronary artery of [place] heart without angina pectoris ; Paroxysmal atrial fibrillation (HCC); Bilateral lower extremity edema; Class 3 severe obesity due to excess calories with serious comorbidity and body mass index (BMI) of 50.0 to 59.9 in adult (CMS-HCC); Pre-diabetes; Thyroid nodule ; Pulmonary emphysema, unspecified emphysema type (HCC); Moderate persistent asthma without complication (HCC); Hyperlipidemia, unspecified ; Chronic diastolic heart failure (HCC); Atrial fibrillation, unspecified type (HCC) Start: 12-22-2024 End: 12-22-2024 Bamboo flowsheet Eusebia Terrell TRAIN RESERVATION CLERK Work Phone: [facility] Start: 12-22-2024 End: 12-22-2024 Bamboo flowsheet Eusebia Terrell TRAIN RESERVATION CLERK Work Phone: [facility] Start: 12-03-2024 End: 12-04-2024 Refill Eusebia Terrell TRAIN RESERVATION CLERK Work Phone: [facility] Comment on above: Paroxysmal atrial fi brillation (HCC) Start: 10-15-2024 End: 10-15-2024 ambulatory [facility] Start: 10-15-2024 End: 10-15-2024 Office outpatient visit 25 minutes Madison Blanco MD Work Phone: [facility] Comment on above: 2-vessel coronary ar joey disease (Primary Dx); Paroxysmal atrial fibrillation (Multi); [place] (myocardial infarction); Poor compliance; Essential hypertension; Morbid obesity with BMI of 50.0-59.9, adult (Multi); Obstructive sleep apnea syndrome; Former smoker Start: 09-18-2024 End: 09-18-2024 Bamboo flowsheet Eusebia Terrell TRAIN RESERVATION CLERK Work Phone: [facility] Start: 09-18-2024 End: 09-18-2024 Bamboo flowsheet Eusebia Terrell TRAIN RESERVATION CLERK Work Phone: [facility] Start: 09-18-2024 End: 09-18-2024 Office outpatient visit 25 minutes Eusebia Terrell TRAIN RESERVATION CLERK Work Phone: [facility] Comment on above: Primary hypertension (CMS/HCC) (Primary Dx); Pulmonary emphysema, unspecified emphysema type (CMS/HCC); Coronary artery disease involving [place] coronary artery of [place] heart without angina pectoris (CMS/HCC); Chronic diastolic [...] Start: 09-17-2024 End: 09-17-2024 ambulatory EUSEBIA TERRELL [facility] Start: 08-08-2024 End: 08-11-2024 Refill Sara Vuong HEAD OF [employer]-K 9 HANDLER/ DEPUTY Work Phone: [facility] Start: 07-29-2024 End: 07-30-2024 Refill Eusebia Terrell TRAIN RESERVATION CLERK Work Phone: [facility] Comment on above: Primary hypertension (CMS/HCC); Paroxysmal atrial fibrillation (CMS/HCC); Chronic obstructive pulmonary disease, unspecified COPD type (CMS/HCC) Start: 07-18-2024 End: 07-18-2024 Telephone encounter Yolanda Lazaro RAMOS [facility] Start: 06-19-2024 End: 06-19-2024 Bamboo flowsheet Eusebia Terrell TRAIN RESERVATION CLERK Work Phone: [facility] Start: 06-19-2024 End: 06-19-2024 Bamboo flowsheet Eusebia Terrell TRAIN RESERVATION CLERK Work Phone: [facility] Start: 06-19-2024 End: 06-19-2024 Patient encounter procedure Eusebia Terrell TRAIN RESERVATION CLERK Work Phone: [facility] Comment on above: Encounter for subseq uent annual wellness visit (AWV) in Medicare patient (Primary Dx); Chronic obstructive pulmonary disease, unspecified (CMS/HCC); Chronic diastolic (congestive) heart failure (CMS/HCC); Emphysema, unspecified ([facility]/HCC); Paroxysmal atrial fibrillation ([facility]/HCC); Morbid (severe) obesity due to excess calories (CMS/HCC); Body mass index (BMI) 50.0-59.9, adult ([facility]); CATERINA (obstructive sleep apnea); Coronary artery disease involving [place] coronary artery of [place] heart without angina pectoris (CMS/HCC); Primary hypertension (CMS/HCC); Bilateral lower extremity edema; Class 3 severe obesity due to excess calories with serious comorbidity and body mass index (BMI) of 50.0 to 59.9 in adult ([facility]); Pre-diabetes; Mixed hyperlipidemia ([facility]); Upper respiratory tract infection, unspecified type Start: 06-19-2024 End: 06-19-2024 ambulatory EUSEBIA XANDER Not Available Start: 06-16-2024 End: 06-17-2024 Refill Eusebia Xander TRAIN RESERVATION CLERK Work Phone: [facility] Comment on above: Primary hypertension ([facility]); Paroxysmal atrial fibrillation ([facility]/HCC) Start: 05-28-2024 End: 05-28-2024 ambulatory EUSEBIA David TERRELL [facility] Start: 05-23-2024 End: 05-23-2024 Telephone encounter Jeanne Green RN [facility] Comment on above: overdue lab Start: 05-06-2024 Patient encounter procedure Eusebia Terrell TRAIN RESERVATION CLERK Work Phone: [facility] Start: 04-09-2024 End: 04-09-2024 Office outpatient visit 15 minutes Eusebia Terrell TRAIN RESERVATION CLERK Work Phone: [facility] Comment on above: Environmental and se asonal allergies (Primary Dx); Severe persistent asthma, uncomplicated ([facility]); Morbid obesity with BMI of 50.0-59.9, adult ([facility]); Pulmonary emphysema, unspecified emphysema type ([facility]) Start: 04-09-2024 End: 04-09-2024 ambulatory EUSEBIA SOCORROTommyADE Not Available Start: 04-09-2024 End: 04-09-2024 Bamboo flowsheet Eusebia Xander TRAIN RESERVATION CLERK Work Phone: [facility] Start: 04-09-2024 End: 04-09-2024 Bamboo flowsheet Eusebia Xander TRAIN RESERVATION CLERK Work Phone: [facility] Start: 03-26-2024 End: 03-26-2024 Telephone encounter Lisa Cervantes DO Work Phone: [facility] Start: 03-24-2024 End: 03-24-2024 Refill Eusebia Terrell TRAIN RESERVATION CLERK Work Phone: [facility] Comment on above: Hyperlipidemia, unsp ecified ([facility]) Med Refill Start: 02-06-2024 End: 02-06-2024 Bamboo flowsheet Eusebia Lawade TRAIN RESERVATION CLERK Work Phone: [facility] Start: 02-06-2024 End: 02-06-2024 Bamboo flowsheet Eusebia Lawmaeganayden TRAIN RESERVATION CLERK Work Phone: [facility] Start: 02-06-2024 End: 02-06-2024 Office outpatient visit 25 minutes Eusebia Lawade TRAIN RESERVATION CLERK Work Phone: [facility] Comment on above: Pre-diabetes (Primar y Dx); Other emphysema ([facility]); Atrial fibrillation, unspecified type ([facility]); Hyperlipidemia, unspecified ([facility]); Chronic obstructive pulmonary disease, unspecified COPD type ([facility]); Chest pain due to CAD ([facility]); Primary hypertension ([facility]); Paroxysmal atrial fibrillation ([facility]); Chronic diastolic heart failure ([facility]); Other headache syndrome; Morbid obesity ([facility]); Morbid obesity with BMI of 50.0-59.9, adult ([facility]) Start: 02-06-2024 End: 02-06-2024 ambulatory EUSEBIA XANDER Not Available Start: 02-05-2024 End: 02-05-2024 Refill Samara Noel MD Work Phone: [facility] Comment on above: Chronic diastolic he art failure ([facility]); Coronary artery disease involving [place] coronary artery of [place] heart without angina pectoris; Persistent atrial fibrillation ([facility]) Start: 01-22-2024 End: 01-22-2024 Orders Only Sara Vuong HEAD OF INTEGRATED MEDIA-K 9 HANDLER/ DEPUTY Work Phone: [facility] Comment on above: Chronic diastolic he art failure ([facility]); Coronary artery disease involving [place] coronary artery of [place] heart without angina pectoris; Persistent atrial fibrillation ([facility]) Start: 01-21-2024 End: 01-21-2024 Office outpatient visit 25 minutes Sara Vuong HEAD OF INTEGRATED MEDIA-K 9 HANDLER/ DEPUTY Work Phone: [facility] Comment on above: Chronic diastolic he art failure (CMS-HCC) (Primary Dx); Persistent atrial fibrillation ([facility]); Coronary artery disease involving [place] coronary artery of [place] heart without angina pectoris; Primary hypertension Start: 11-14-2023 End: 11-14-2023 Telephone encounter Orders Support User Transcribe [facility] - Sleep Disorders Comment on above: Sleep Lab (Pap Order ) Start: 11-13-2023 End: 11-13-2023 Orders Only Lisa Cervantes DO Work Phone: [facility] Pulmonary/Sleep [facility] Comment on above: CATERINA treated with BiP AP (Primary Dx) Start: 11-11-2023 End: 11-13-2023 Refill Samara Noel MD Work Phone: [facility] Failure [facility] Comment on above: Chronic diastolic he art failure (CMS-HCC); Coronary artery disease involving [place] coronary artery of [place] heart without angina pectoris; Persistent atrial fibrillation ([facility]) Start: 11-05-2023 End: 11-17-2023 ambulatory [facility] Start: 10-31-2023 End: 10-31-2023 Refill Nishi Max RN [facility] Comment on above: Chronic diastolic he art failure (CMS-HCC) (Primary Dx) Start: 10-25-2023 End: 10-25-2023 ambulatory [facility] Poonam JOO [facility] Start: 10-25-2023 End: 10-25-2023 Office outpatient visit 25 minutes Lisa Cervantes DO Work Phone: [facility]Sleep [facility] Comment on above: Chronic obstructive pulmonary disease, unspecified COPD type (CMS-HCC) (Primary Dx); CATERINA treated with BiPAP; Pulmonary nodule; Restrictive pattern present on pulmonary function testing; History of tobacco use Start: 10-24-2023 End: 10-24-2023 Telephone encounter Griselda Gramajo [facility] Card[facility] Start: 10-23-2023 End: 10-23-2023 Telephone encounter Olga Oshea [facility] Start: 10-11-2023 End: 10-11-2023 Refill Samara Noel MD Work Phone: [facility] Comment on above: Chronic diastolic he art failure (CMS-HCC); Coronary artery disease involving [place] coronary artery of [place] heart without angina pectoris; Persistent atrial fibrillation (CMS-HCC) Start: 10-08-2023 End: 10-08-2023 Office outpatient visit 25 minutes Madison Blanco MD Work Phone: [facility] Comment on above: 2-vessel coronary ar joey disease (Primary Dx); Paroxysmal atrial fibrillation (Multi); Essential hypertension; Mixed hyperlipidemia; Old [place] (myocardial infarction); Morbid obesity with BMI of 50.0-59.9, adult (Multi); Former smoker Start: 10-03-2023 End: 10-03-2023 Orders Only Liliana Carballo CMA [facility] General Surgery-Bariatric Start: 08-21-2023 Telephone encounter Jeanne Green RN [facility] Comment on above: KCL Start: 08-20-2023 End: 08-20-2023 Office outpatient new 45 minutes Samara Noel MD Work Phone: [facility] Comment on above: Chronic diastolic he art failure (CMS-HCC) (Primary Dx); Coronary artery disease involving [place] coronary artery of [place] heart without angina pectoris; Persistent atrial fibrillation (CMS-HCC) Start: 07-30-2023 Refill Eusebia Terrell NP Work Phone: [facility] Comment on above: Pulmonary emphysema, unspecified emphysema type (CMS/HCC) (Primary Dx) Start: 07-26-2023 End: 07-26-2023 Office outpatient new 45 minutes Faith Mandujano MD Work Phone: [facility] Comment on above: Atrial fibrillation, unspecified type (CMS-HCC) (Primary Dx); History of coronary angioplasty with insertion of stent; History of tobacco use; Primary hypertension; Paroxysmal atrial fibrillation (CMS-HCC); Bilateral lower extremity edema; Heart failure with preserved ejection fraction, unspecified HF chronicity (CMS-HCC) Start: 07-25-2023 Telephone encounter Eusebia Fischer CMA [facility] Start: 07-20-2023 Chart abstracting Faith santos MD Work Phone: [facility] Start: 07-19-2023 End: 07-19-2023 Office outpatient visit 25 minutes Eusebia Terrell NP Work Phone: [facility] Comment on above: Screening for prosta te [...] 25 minutes Justyn Mondragon MD Work Phone: [facility] Comment on above: CAD S/P percutaneous coronary angioplasty; Paroxysmal atrial fibrillation (CMS/HCC); Old [place] (myocardial infarction); Mixed hyperlipidemia; Primary hypertension; Obstructive sleep apnea syndrome; Morbid obesity with BMI of 50.0-59.9, adult (CMS/HCC); Former smoker; Status post ablation of incompetent vein using laser Start: 10-26-2022 End: 10-26-2022 ambulatory K 9 HANDLER/ DEPUTY EUSEBIA TERRELL Facility: Start: 10-05-2022 Chart Update Eusebia Nela Rand lz Work Phone: [facility] 305 DO Work Phone: Start: 10-03-2022 Chart Update Eusebia [facility]ela [facility] lz [facility] 305 DO Work Phone: Start: 10-03-2022 [address] Mrs. Eusebia Rondon Xander Oscar acility:[id number] Start: 10-02-2022 [address] Mrs. Eusebia Rondon Xander Oscar acility:[id number] Start: 09-15-2022 Telephone encounter Eusebia wayne Work Phone: [facility] 305 DO Work Phone: Start: 09-15-2022 End: 09-16-[address] DOCTOR HERNANDEZ Facility:H1 Start: 08-27-2022 End: 08-27-2022 ambulatory TED DE LUNA . Facility:H1 Start: 08-25-2022 Telephone encounter Eusebiakelley wayne Work Phone: [facility] 305 DO Work Phone: Start: 08-24-2022 End: 08-25-[address] KESHAWN PECK Facility:H1 Start: 07-27-2022 STRESS KARIS, Provider : [id number] HHVI NUCLEAR ,[id number], Status: Pen, Time: 2:00 PM Eusebia Terrell Work Phone: [facility] Work Phone: Start: 07-19-2022 Office outpatient vi sit 25 minutes Eusebia Terrell Work Phone: [facility] 305 DO Work Phone: Start: 07-19-2022 ambulatory JUSTYN MONDRAGON Facility: Start: 06-01-2022 End: 06-04-2022 ambulatory MIRZA GUZMÁN Facility:H1 Start: 05-29-2022 End: 05-29-2022 ambulatory NATALIA TERRELL Facility:H1 Start: 05-26-2022 End: 05-26-2022 ambulatory ROBERTA PERRIN Facility:H1 Start: 05-20-2022 End: 05-20-[address] SALVADOR WALTERS . Facility:H1 Start: 04-03-[address] Madison Blanco Facility: Start: 02-04-2022 End: 02-04-2022 ambulatory NATALIA TERRELL Facility:H1 Start: 01-26-2022 End: 01-26-2022 ambulatory NATALIA TERRELL Facility:H1 Start: 01-12-2022 Office outpatient vi sit 25 minutes Eusebia Nela Aichholz Work Phone: [facility] 250 DO Work Phone: Start: 01-12-2022 Patient encounter procedure Eusebia Quintanillahholz Work Phone: [facility] 600 DO Work Phone: Start: 01-12-2022 ambulatory NATALIA Parsons y: Start: 01-11-2022 End: 01-12-2022 ambulatory K 9 HANDLER/ DEPUTY EUSEBIA LAWMAEGANZ Facility:H1 Start: 01-08-2022 End: 01-08-2022 ambulatory K 9 HANDLER/ DEPUTY EUSEBIA AICHHOLZ Facility:H1 Start: 12-10-2021 End: 12-11-2021 ambulatory K 9 HANDLER/ DEPUTY EUSEBIA AICHHOLZ Facility:H1 Start: 11-06-2021 End: 11-07-2021 ambulatory K 9 HANDLER/ DEPUTY EUSEBIA AICHHOLZ Facility:H1 Start: 08-02-[address] Madison Blanco Facility:[id number] Start: 07-18-2021 Telephone encounter Eusebia Serna chholz Work Phone: [facility] 250 DO Work Phone: Start: 05-09-2021 Rx Renewal Eusebia Quintanillahho lz Work Phone: [facility] 250 DO Work Phone: Start: 04-11-2021 Office outpatient vi sit 25 minutes Eusebia Quintanillahholz Work Phone: [facility] 600 DO Work Phone: Start: 04-04-2021 Rx Renewal Eusebia Rondon Aichho lz Work Phone: [facility] 250 DO Work Phone: Start: 08-23-2017 Ambulatory MADISON BLANCO Faci lity:[id number] Echocardiogram normal Eusebia Nela Serna chholz Work Phone: [facility] 600 DO Work Phone: Preoperative state Eusebia Nela Ramirez olz Work Phone: [facility] 600 DO Work Phone: Procedures Date Procedure Procedure Detail Performing Clinician Start: 01-02-2025 Complete blood count with white cell differential, automated Eusebia Terrell TRAIN RESERVATION CLERK Work Phone: Start: 09-17-2024 Lipid 1996 panel - S britt or Plasma Mdaison Blanco MD Work Phone: Start: 06-19-2024 Hemoglobin glycosyla piotr a1c Eusebia Terrell TRAIN RESERVATION CLERK Work Phone: Start: 10-25-2023 Follow-up visit Follow-up LISAANGELO CERVANTES Start: 07-26-2023 Ecg routine ecg w/le ast 12 lds w/i&r Faith Mandujano MD Work Phone: Start: 04-12-2023 End: 04-13-2023 History of percutaneous transluminal coronary angioplasty History of PTCA Justyn Mondragon MD Work Phone: Start: 09-21-2022 History of placement of stent for coronary artery disease History of coronary angioplasty with insertion of stent Eusebia Terrell TRAIN RESERVATION CLERK Work Phone: Start: 01-11-2022 PSA screening K 9 HANDLER/ DEPUTY EUSEBIA TERRELL Comment on above: Performed By: #### T SH, BNP, HSTROPN, CMP #### [facility] [address] [place] [address] Dr. Jersey Butcher Start: 05-28-2017 Colonoscopy Eusebia veliz TRAIN RESERVATION CLERK Work Phone: Cardiac catheterization Eusebia Terrell Work Phone: Cholecystectomy Eusebia issaz Work Phone: Comment on above: Joel Rosa; Colonoscopy Eusebia Shah z Work Phone: Comment on above: Joel Rosa; History of percutane ous transluminal coronary angioplasty History of PTCA Eusebia Rondon Xander Work Phone: History of placement of stent for coronary artery disease History of coronary angioplasty with insertion of stent Faith Mandujano MD Work Phone: Operative procedure on knee Eusebia Rondon Xander Work Phone: Percutaneous translu china coronary angioplasty Eusebia Rondon Xander Work Phone: Plan of Treatment Date Care Activity Detail Author Start: 09-17-2029 Lipid panel Lipid Panel [facility] Start: 05-28-2027 Screening for malign ant neoplasm of colon [facility] Start: 06-19-2025 Medicare Annual Well ness (AWV) Medicare Annual Wellness (AWV) [facility] Start: 05-21-2025 End: 05-21-2025 Patient encounter procedure 05/21/2025 9:45 AM EST [facility] [address] [facility] [place] [phone] Lisa Cervantes, DO [address] [address] [facility] Start: 05-07-2025 End: 05-07-2025 Patient encounter procedure 05/07/2025 11:30 AM EST Appointment [facility] - Pulmonary Function [address] [place] [phone] [place] [address] [address] [facility] - Pulmonary Function Start: 02-20-2025 End: 02-20-2025 Patient encounter procedure 02/20/2025 10:00 AM EDT Office Visit [facility] [address] [facility] [address] [place] [address] Madison Blanco MD [address] [facility] [address], [address] [place] [address] [facility] Start: 02-16-2025 Influenza vaccination [facility] Start: 02-02-2025 End: 02-02-2025 Patient encounter procedure 02/02/2025 2:40 PM EDT Office Visit [facility] [address] [place] [phone] Eusebia Terrell, TRAIN RESERVATION CLERK [address] [place] [phone] [facility] Start: 02-02-2025 End: 02-02-2026 US Thyroid gland US thyroid Imaging Routine Thyroid nodule Expected: 02/02/2025 (Approximate), Expires: 02/02/2026 [facility] Work Phone: Comment on above: Expected: 02/02/2025 (Approximate), Expires: 02/02/2026 Start: 01-20-2025 Adult BMI Screening Adult BMI Screen ing [facility] Start: 01-20-2025 Tobacco Screening Tobacco Screening [facility] Start: 01-02-2025 End: 01-02-2026 XR Chest PA and Lateral X-ray chest 2 views Imaging Routine Chronic obstructive pulmonary disease, unspecified COPD type ([facility]) Expected: 01/02/2025, Expires: 01/02/2026 [employer] Comment on above: Expected: 01/02/2025 , Expires: 01/02/2026 Start: 12-22-2024 End: 12-22-2024 Patient encounter procedure 12/22/2024 2:20 PM EDT Office Visit [facility] [address] [place] [address] Eusebia Terrell, TRAIN RESERVATION CLERK [address] [place] [address] [facility] Start: 12-22-2024 End: 12-22-2025 Basic metabolic 1998 panel - Serum or Plasma Basic metabolic panel Lab Routine Chronic diastolic heart failure (HCC) Expected: 12/22/2024 (Approximate), Expires: 12/22/2025 [facility] Comment on above: Expected: 12/22/2024 (Approximate), Expires: 12/22/2025 Start: 12-22-2024 End: 12-22-2025 CBC W Auto Differential panel - Blood CBC and differential Lab Routine Chronic diastolic heart failure (HCC) Expected: 12/22/2024 (Approximate), Expires: 12/22/2025 [facility] Work Phone: Comment on above: Expected: 12/22/2024 (Approximate), Expires: 12/22/2025 Start: 12-18-2024 End: 12-18-2024 Patient encounter procedure 12/18/2024 10:30 AM EDT Office Visit [facility] [address] [place] [address] Eusebia Terrell NP [address] [place] [address] [facility] Start: 10-24-2024 Adult BMI Screening Adult BMI Screen ing [facility] Start: 10-24-2024 Tobacco Screening Tobacco Screening [facility] Start: 09-18-2024 End: 09-18-2024 Patient encounter procedure [facility] Comment on above: Pulmonary emphysema, unspecified emphysema type (CMS/HCC) (Primary Dx); Coronary artery disease involving [place] coronary artery of [place] heart without angina pectoris (CMS/HCC); Chronic diastolic (congestive) heart failure; Primary hypertension (CMS/HCC); Bilateral lower extremity edema; Pre-diabetes; Mixed hyperlipidemia (CMS/HCC); Rising PSA level; Vitamin D deficiency Start: 08-19-2024 Adult BMI Screening Adult BMI Screen ing [facility] Start: 08-19-2024 Tobacco Screening Tobacco Screening [facility] Start: 08-18-2024 End: 08-18-2024 Patient encounter procedure 08/18/2024 2:00 PM EST Office Visit [facility] [address] [place] [address] Sara Vuong, HEAD OF INTEGRATED MEDIA-K 9 HANDLER/ DEPUTY [address] [place] [address] Kristina Moreno, HEAD OF INTEGRATED MEDIA-K 9 HANDLER/ DEPUTY [address] [place] [phone] [facility] Start: 07-26-2024 Adult BMI Screening Adult BMI Screen ing [facility] Start: 07-26-2024 Tobacco Screening Tobacco Screening [facility] Start: 07-21-2024 End: 07-21-2024 Patient encounter procedure 07/21/2024 9:00 AM EST Office Visit [facility] [address] [place] [address] Sara Vuong, HEAD OF INTEGRATED MEDIA-K 9 HANDLER/ DEPUTY [address] [place] [address] [facility] Start: 06-19-2024 End: 06-19-2024 Patient encounter procedure [facility] Comment on above: [facility] ([facility] in Medicare patient (Primary Dx); Chronic obstructive pulmonary disease, unspecified (CMS/HCC); Chronic diastolic (congestive) heart failure ([facility]/HCC); Emphysema, unspecified ([facility]/HCC); Paroxysmal atrial fibrillation ([facility]/HCC); Morbid (severe) obesity due to excess calories (CMS/HCC); Body mass index (BMI) 50.0-59.9, adult ([facility]); CATERINA (obstructive sleep apnea); Coronary artery disease involving [place] coronary artery of [place] heart without angina pectoris (CMS/HCC); Primary hypertension (CMS/HCC); Bilateral lower extremity edema; Class 3 severe obesity due to excess calories with serious comorbidity and body mass index (BMI) of 50.0 to 59.9 in adult (CMS/HCC); Pre-diabetes; Mixed hyperlipidemia (CMS/HCC) Start: 05-08-2024 End: 05-08-2024 Patient encounter procedure 05/08/2024 1:00 PM EST Office Visit [facility] [address] [place] [address] Eusebia Terrell, TRAIN RESERVATION CLERK [address] [place] [phone] [facility] Start: 05-06-2024 End: 05-06-2024 Patient encounter procedure 05/06/2024 10:30 AM EST Office Visit [facility] [address] [place] [phone] Eusebia Terrell, TRAIN RESERVATION CLERK [address] [place] [address] [facility] Start: 05-03-2024 Adult BMI Screening Adult BMI Screen ing [facility] Start: 05-03-2024 Tobacco Screening Tobacco Screening [facility] Start: 04-23-2024 End: 01-21-2025 Basic metabolic 2000 panel - Serum or Plasma Basic Metabolic Panel Lab Routine Chronic diastolic heart failure ([facility]) Expected: 04/23/2024 (Approximate), Expires: 01/21/2025 [facility] Work Phone: Comment on above: Expected: 04/23/2024 (Approximate), Expires: 01/21/2025 Start: 04-09-2024 End: 04-09-2024 Patient encounter procedure [facility] Comment on above: Severe persistent as thma, uncomplicated (CMS/HCC) Start: 03-27-2024 End: 03-27-2024 Patient encounter procedure 03/27/2024 11:30 AM EDT Office Visit [facility] [address] [place] [address] [place] [address] [place] [address] [facility]Sleep [facility] Start: 02-17-2024 COVID-19 Vaccine ( season) COVID-19 Vaccine ( season) [facility] Start: 02-17-2024 Influenza vaccination [facility] Start: 02-11-2024 End: 02-11-2024 Clinical Support 02/11/2024 8:00 PM EDT Clinical Support [facility] [address] [place] [address] Lisa Cervantes, DO [address] [address] [facility] - Sleep Disorders Start: 02-06-2024 End: 02-06-2024 Patient encounter procedure 02/06/2024 9:00 AM EDT Office Visit [facility] [address] [place] [address] Eusebia Terrell NP [address] [place] [address] Other emphysema (CMS/HCC) [facility] Comment on above: Other emphysema (CMS /HCC) Start: 01-21-2024 End: 01-21-2024 Patient encounter procedure 01/21/2024 2:30 PM EDT Office Visit [facility] Failure [facility] [address] [place] [phone] Sara Vuong, HEAD OF INTEGRATED MEDIA-K 9 HANDLER/ DEPUTY [address] [place], [place] [phone] [facility] Start: 11-07-2023 End: 10-30-2024 Basic metabolic 2000 panel - Serum or Plasma Basic Metabolic Panel Lab Routine Chronic diastolic heart failure (CMS-HCC) Expected: 11/07/2023 (Approximate), Expires: 10/30/2024 [facility] Work Phone: Comment on above: Expected: 11/07/2023 (Approximate), Expires: 10/30/2024 Start: 11-05-2023 End: 11-05-2023 ambulatory 11/05/2023 8:30 AM EDT Monitor [facility] [address] [phone] [facility] Start: 10-30-2023 End: 10-30-2023 Patient encounter procedure 10/30/2023 10:30 AM EDT Appointment [facility] - Pulmonary Function [address] [place] [phone] Lisa Cervantes, DO [address] [address] [facility] - Pulmonary Function Start: 10-25-2023 End: 10-25-2023 Patient encounter procedure 10/25/2023 2:15 PM EDT Office Visit [facility] [address] [facility] [place] [phone] Lisa Cervantes, DO [address] [address] [facility] Start: 10-24-2023 End: 10-24-2023 Patient encounter procedure 10/24/2023 1:45 PM EDT Office Visit [facility] [address] [facility] [address] [place] [address] Juan Jose Lee MD [address] [place] [address] [facility] Start: 10-17-2023 End: 10-17-2023 Patient encounter procedure 10/17/2023 10:00 AM EDT Office Visit [facility] [address] [facility] [address] [place] [phone] Justyn Mondragon MD [address] [facility] [address] [place] [address] [facility] Start: 10-04-2023 End: 10-04-2023 Patient encounter procedure 10/04/2023 10:30 AM EDT Office Visit [facility] [address] [facility] [place] [address] Lisa Cervantes, [address] [facility] [address] [place] [address] [facility] Start: 09-24-2023 End: 09-24-2023 Patient encounter procedure 09/24/2023 9:00 AM EDT Office Visit [facility] [address] [place] [phone] Sara Vuong, HEAD OF INTEGRATED MEDIA-K 9 HANDLER/ DEPUTY [address] [place], [place] [phone] [facility] Start: 08-27-2023 End: 08-19-2024 Basic metabolic 2000 panel - Serum or Plasma Basic Metabolic Panel Lab Routine Chronic diastolic heart failure (CMS-HCC) Coronary artery disease involving [place] coronary artery of [place] heart without angina pectoris Persistent atrial fibrillation (CMS-HCC) Expected: 08/27/2023 (Approximate), Expires: 08/19/2024 [facility] Work Phone: Comment on above: Expected: 08/27/2023 (Approximate), Expires: 08/19/2024 Start: 08-27-2023 End: 08-19-2024 Natriuretic peptide B [Mass/volume] in Blood B-type natriuretic peptide Lab Routine Chronic diastolic heart failure (CMS-HCC) Coronary artery disease involving [place] coronary artery of [place] heart without angina pectoris Persistent atrial fibrillation (CMS-HCC) Expected: 08/27/2023 (Approximate), Expires: 08/19/2024 [facility] Comment on above: Expected: 08/27/2023 (Approximate), Expires: 08/19/2024 Start: 08-27-2023 End: 08-19-2024 Thyroid profile includes TSH FT4 Thyroid profile includes TSH FT4 Lab Routine Chronic diastolic heart failure ([facility]) Coronary artery disease involving [place] coronary artery of [place] heart without angina pectoris Persistent atrial fibrillation ([facility]) Expected: 08/27/2023 (Approximate), Expires: 08/19/2024 [facility] Comment on above: Expected: 08/27/2023 (Approximate), Expires: 08/19/2024 Start: 08-24-2023 Adult BMI Follow Up Plan Adult BMI F ollow Up Plan [facility] Start: 08-23-2023 End: 08-23-2023 Patient encounter procedure 08/23/2023 10:00 AM EST Appointment [facility] - Pulmonary Function [address] [place] [id number] Lisa Cervantes M, DO [address] [phone] [facility] - Pulmonary Function Start: 08-14-2023 End: 08-14-2023 Patient encounter procedure 08/14/2023 10:00 AM EST Office Visit [facility] [address] [place] [address] Mirza Guzmán MD [address] [place] [phone] [facility] Start: 08-02-2023 End: 07-26-2024 Basic metabolic 2000 panel - Serum or Plasma Basic Metabolic Panel Lab Routine Atrial fibrillation, unspecified type ([facility]) Expected: 08/02/2023 (Approximate), Expires: 07/26/2024 [facility] Work Phone: Comment on above: Expected: 08/02/2023 (Approximate), Expires: 07/26/2024 Start: 07-26-2023 End: 07-26-2023 Patient encounter procedure 07/26/2023 1:30 PM EST Office Visit [facility] [address] [place] [phone] Faith Mandujano MD [address] [place] [address] [facility] Start: 07-19-2023 FUV, Provider: Justyn Mondragon, Status: Pen, Time: 1:00 PM FUV, Provider: Justyn Mondragon, Status: Pen, Time: 1:00 PM -[facility] 305 DO Work Phone: Start: 07-19-2023 End: 07-19-2024 Comprehensive metabolic 2000 panel - Serum or Plasma Comprehensive metabolic panel Lab Routine Mixed hyperlipidemia (CMS/HCC) Primary hypertension (CMS/HCC) Pre-diabetes Expected: 07/19/2023 (Approximate), Expires: 07/19/2024 [facility] Comment on above: Expected: 07/19/2023 (Approximate), Expires: 07/19/2024 Start: 07-19-2023 End: 07-19-2024 Hemoglobin A1c measurement Hemoglobin A1c Lab Routine Pre-diabetes Expected: 07/19/2023 (Approximate), Expires: 07/19/2024 [facility] Comment on above: Expected: 07/19/2023 (Approximate), Expires: 07/19/2024 Start: 07-19-2023 End: 07-19-2024 Lipid 1996 panel - Serum or Plasma Lipid panel Lab Routine Mixed hyperlipidemia (CMS/HCC) Expected: 07/19/2023 (Approximate), Expires: 07/19/2024 [facility] Comment on above: Expected: 07/19/2023 (Approximate), Expires: 07/19/2024 Start: 07-19-2023 End: 07-19-2024 Microalbumin/Creatinine panel in random Urine Microalbumin / creatinine, urine ratio Lab Routine Primary hypertension (CMS/HCC) Pre-diabetes Expected: 07/19/2023 (Approximate), Expires: 07/19/2024 [facility] Comment on above: Expected: 07/19/2023 (Approximate), Expires: 07/19/2024 Start: 07-19-2023 End: 07-19-2024 Prostate specific Ag [Mass/volume] in Serum or Plasma PSA Lab Routine Screening for prostate cancer Expected: 07/19/2023 (Approximate), Expires: 07/19/2024 [facility] Work Phone: Comment on above: Expected: 07/19/2023 (Approximate), Expires: 07/19/2024 Start: 07-19-2023 End: 07-19-2024 Urinalysis complete panel - Urine Urinalysis with reflex microscopic (clean catch) Lab Routine Primary hypertension (CMS/HCC) Pre-diabetes Expected: 07/19/2023 (Approximate), Expires: 07/19/2024 [facility] [employer] Comment on above: Expected: 07/19/2023 (Approximate), Expires: 07/19/2024 Start: 07-19-2023 End: 07-19-2023 Patient encounter procedure 07/19/2023 1:00 PM EST Office Visit [facility] [address] [phone] Justyn Mondragon MD [address] [facility] Medical Office Bldg, [address] [phone] [facility] Start: 2023 Hepatitis B Vaccines (1 of 3 - Risk 3-dose series) Hepatitis B Vaccines (1 of 3 - Risk 3-dose series) [facility] Start: 2023 RSV High Risk: (Elde rly (60+) or Population) (1 - Risk 60-74 years 1-dose series) RSV High Risk: (Elderly (60+) or Population) (1 - Risk 60-74 years 1-dose series) [facility] Start: 2023 RSV patient s and/or patients aged 60+ years (1 - 1-dose 60+ series) RSV patients and/or patients aged 60+ years (1 - 1-dose 60+ series) [facility] Start: 02-16-2023 COVID-19 Vaccine ( season) COVID-19 Vaccine ( season) [facility] Start: 02-16-2023 Influenza vaccination [facility] Start: 10-03-2022 REST ONLY, Provider: DAYANNA CHAZI NUCLEAR 01,[id number], Status: Pen, Time: 10:00 AM REST ONLY, Provider: DAYANNA HHVI NUCLEAR 01,[id number], Status: Pen, Time: 10:00 AM [facility] 305 DO Work Phone: Start: 10-02-2022 STRESSNUC2, Provider : DAYANNA HHVI NUCLEAR 01,[id number], Status: Pen, Time: 11:00 AM STRESSNUC2, Provider: DAYANNA CHAZI NUCLEAR 01,[id number], Status: Pen, Time: 11:00 AM [facility] 305 DO Work Phone: Start: 07-27-2022 STRESS KARIS, Provider : [id number] HHVI NUCLEAR 01,[id number], Status: Pen, Time: 2:00 PM STRESS KARIS, Provider: [id number] HHVI NUCLEAR 01,[id number], Status: Pen, Time: 2:00 PM [facility] 305 DO Work Phone: Start: 03-29-2022 FUV, Provider: [place] Blanco, Status: Pen, Time: 1:30 PM FUV, Provider: [place] Blanco, Status: Pen, Time: 1:30 PM [facility] 600 DO Work Phone: Start: 07-05-2021 FUV, Provider: Madison Blanco, Status: Pen, Time: 3:20 PM FUV, Provider: [place] Blanco, Status: Pen, Time: 3:20 PM [facility] 250 DO Work Phone: Start: 2013 Administration of varicella zoster vaccine Zoster (Shingles) Vaccine (1 of 2) [facility] Start: 2013 Zoster Vaccines (1 of 2) Zoster Vacc sherrell (1 of 2) [facility] Start: 1985 DTaP/Tdap/Td Vaccine s (1 - Tdap) DTaP/Tdap/Td Vaccines (1 - Tdap) [facility] Start: 1982 DTaP,Tdap and Td Vac cines (1 - Tdap) DTaP,Tdap and Td Vaccines (1 - Tdap) [facility] Start: 1982 Hepatitis A Vaccines (1 of 2 - Risk 2-dose series) Hepatitis A Vaccines (1 of 2 - Risk 2-dose series) [facility] Start: 1982 Pneumococcal vaccination Pneum ococcal Vaccine (1 of 2 - PCV) [facility] Start: 1981 Adult BMI Follow Up Plan Adult BMI F ollow Up Plan [facility] Start: 1981 Diabetes mellitus screening Diabetes Screening [facility] Start: 1981 Hepatitis C screening Hepatitis C Sc reening [facility] Start: 1975 Depression Screening Depression Scre ening [facility] Start: 1969 Pneumococcal Vaccine : Pediatrics (0 to 5 Years) and At-Risk Patients (6 to 64 Years) (1 - PCV) Pneumococcal Vaccine: Pediatrics (0 to 5 Years) and At-Risk Patients (6 to 64 Years) (1 - PCV) [facility] Start: 1969 Pneumococcal Vaccine : Pediatrics (0 to 5 Years) and At-Risk Patients (6 to 64 Years) (1 of 2 - PCV) Pneumococcal Vaccine: Pediatrics (0 to 5 Years) and At-Risk Patients (6 to 64 Years) (1 of 2 - PCV) [facility] Start: 1964 MMR Vaccines (1 of 1 - Standard series) MMR Vaccines (1 of 1 - Standard series) [facility] Start: 1963 COVID-19 Vaccine (#1) COVID-19 Vacci ne (#1) [facility] Start: 1963 Creatinine measurement Creatinine Le sima [facility] Start: 1963 Echocardiography Echocardiogram [facility] Start: 1963 Hepatitis B Vaccines (1 of 3 - 3-dose series) Hepatitis B Vaccines (1 of 3 - 3-dose series) [facility] Start: 1963 HIV screening HIV Screening [facility] Start: 1963 Lipid panel Lipid Panel [facility] Start: 1963 Medicare Annual Well ness (AWV) Medicare Annual Wellness (AWV) [facility] Start: 1963 Potassium measurement Potassium Leve l [facility] Start: 1963 Screening for malign ant neoplasm of colon [facility] Start: 1963 Yearly Adult Physical Yearly Adult P hysical [facility] End: 01-20-2025 Basic metabolic 2000 panel - Serum or Plasma Basic Metabolic Panel Lab Routine Chronic diastolic heart failure (CMS-HCC) Persistent atrial fibrillation (CMS-HCC) Coronary artery disease involving [place] coronary artery of [place] heart without angina pectoris Primary hypertension 1 Occurrences starting 01/21/2024 until 01/20/2025 [facility] Work Phone: Comment on above: 1 Occurrences starti ng 01/21/2024 until 01/20/2025 Basic metabolic 2000 panel - Serum or Plasma Basic Metabolic Panel Lab Routine Chronic diastolic heart failure (CMS-HCC) Persistent atrial fibrillation (CMS-HCC) Coronary artery disease involving [place] coronary artery of [place] heart without angina pectoris Primary hypertension 01/21/2024 3:17 PM EDT [facility] End: 07-26-2024 Magnesium [Mass/volume] in Serum or Plasma Magnesium Lab Routine Atrial fibrillation, unspecified type (CMS-HCC) 1 Occurrences starting 07/26/2023 until 07/26/2024 [facility] Comment on above: 1 Occurrences starti ng 07/26/2023 until 07/26/2024 End: 01-20-2025 Magnesium [Mass/volume] in Serum or Plasma Magnesium Lab Routine Chronic diastolic heart failure (CMS-HCC) Persistent atrial fibrillation (CMS-HCC) Coronary artery disease involving [place] coronary artery of [place] heart without angina pectoris Primary hypertension 1 Occurrences starting 01/21/2024 until 01/20/2025 [facility] Comment on above: 1 Occurrences starti ng 01/21/2024 until 01/20/2025 Magnesium [Mass/volu me] in Serum or Plasma Magnesium Lab Routine Chronic diastolic heart failure ([facility]) Persistent atrial fibrillation ([facility]) Coronary artery disease involving [place] coronary artery of [place] heart without angina pectoris Primary hypertension 01/21/2024 3:17 PM EDT [employer] End: 10-24-2024 Nocturnal Pulse Oximetry Nocturnal Pulse Oximetry Respiratory Care Routine Chronic obstructive pulmonary disease, unspecified COPD type ([facility]) CATERINA treated with BiPAP Restrictive pattern present on pulmonary function testing 1 Occurrences starting 10/25/2023 until 10/24/2024 [facility] Work Phone: Comment on above: 1 Occurrences starti ng 10/25/2023 until 10/24/2024 End: 11-12-2024 Polysomnography 4 or more parameters with PAP titration Polysomnography 4 or more parameters with PAP titration [facility] Routine CATERINA treated with BiPAP 1 Occurrences starting 11/13/2023 until 11/12/2024 [facility] Work Phone: Comment on above: 1 Occurrences starti ng 11/13/2023 until 11/12/2024 End: 01-02-2026 Pulmonary function test Spirometry (Flow Volume Loop) pre/post short acting bronchodilator Pulmonary function test Spirometry (Flow Volume Loop) pre/post short acting bronchodilator PFT Routine Chronic obstructive pulmonary disease, unspecified COPD type ([facility]) 1 Occurrences starting 01/02/2025 until 01/02/2026 [facility] Work Phone: Comment on above: 1 Occurrences starti ng 01/02/2025 until 01/02/2026 Payers Date Payer Category Payer Managed Care (Private) [facility] [employer] [id number] 2024 Medicaid (Managed Care) [facility] [place] [id number] 2024 Medicaid [id number] 2024 Medicaid [id number] 2023 Unknown [id number] 2023 Medicare [employer] E MEDICARE UHC MEDICARE ADVANTAGE [id number] 2023-Present [address] [address] [place] [address] [id number] 2023 Medicare (Managed Care) [facility] MEDICARE [id number] 2023 Private Health Insurance [id number] 2023 Medicaid [id number] 2023 Private Health Insurance [id number] 2022 Worker's Comp, Other (unspecified) WORKER'S COMPENSATION - GENERIC PLAN [id number] 2022 Worker's Compensation WORKER'S C OMPENSATION WORKER'S COMPENSATION - GENERIC PLAN [id number] 2022-Present [phone] [address] [place] [address] [id number] [id number] 2022 Unknown 1963 Unknown [id number] 2.16840.1.227379.3.579. 2.356 1963 Unknown [id number] 2.16840.1.898050.3.579. 2.356 1963 Unknown [id number] 2.16840.1.988329.3.579. 2.356 1963 Unknown [id number] 2.16840.1.639132.3.579. 2.356 1963 Unknown [id number] 2.16.840.1.616390.3.579. 2.593 1963 Unknown [id number] 2.16.840.1.480079.3.579. 2.593 1963 Unknown [id number] 2.16.840.1.076861.3.579. 2.593 1963 Unknown [id number] 2.16.840.1.476412.3.579. 2.593 1963 Unknown [id number] 2.16.840.1.351517.3.579. 2.593 1963 Unknown [id number] 2.16.840.1.731069.3.579. 2.593 1963 Unknown [id number] 2.16.840.1.043861.3.579. 2.593 1963 Unknown [id number] 2.16.840.1.852745.3.579. 2.593 1963 Unknown [id number] 2.16.840.1.453141.3.579. 2.593 1963 Unknown [id number] 2.16.840.1.546520.3.579. 2593 1963 Unknown [id number] 2.16.840.1.667536.3.579. 2.593 1963 Unknown [id number] 2.16.840.1.657930.3.579. 2593 1963 Unknown [id number] 2.16.840.1.914611.3.579. 2593 1963 Unknown [id number] 2.16.840.1.891469.3.579. 2593 1963 Unknown [id number] 2.16.840.1.997512.3.579. 2.1068 1963 Unknown [id number] 2.16.840.1.964063.3.579. 2.1068 1963 Unknown [id number] 2.16.840.1.089005.3.579. 2.1286 1963 Unknown [id number] 2.16.840.1.120591.3.579. 2.1286 1963 Unknown [id number] 2.16.840.1.471761.3.579. 2.1244 1963 Unknown [id number] 2.16.840.1.359968.3.579. 2.1286 1963 Unknown [id number] 2.16.840.1.705357.3.579. 2.1286 1963 Unknown [id number] 2.16.840.1.757482.3.579. 2.6 1963 Unknown [id number] 2.16.840.1.644645.3.579. 2.1286 1963 Unknown [id number] 2.16.840.1.265036.3.579. 2.9 1963 Unknown [id number] 2.16.840.1.982796.3.579. 2.9 1963 Unknown [id number] 2.16.840.1.728323.3.579. 2.9 1963 Unknown [id number] 2.16.840.1.238809.3.579. 2.9 1963 Unknown [id number] 2.16.840.1.822783.3.579. 2.9 1963 Unknown [id number] 2.16.840.1.390723.3.579. 2.9 1959 Private Health Insurance [id number] 1959 Unknown [id number] Medicaid [id number] Self-pay Self Pay [id number] Social History Date Type Detail Facility Tobacco smoking stat [facility] Unknown if ever smoked [facility] Start: 1965 Sex Assigned At Male F [facility] Start: 07-19-2023 End: 06-19-2024 Daily caffeine consumption Daily caffeine consumption -[facility] 600 DO Work Phone: Comment on above: 2 (24oz) cups of cof fee daily; Quit 07/26/2012; Start: 04-13-2023 End: 06-06-2023 Tobacco smoking status NHIS Ex-smoker [facility] End: 07-31-2012 History of tobacco use Current smoker [facility] Work Phone: End: 07-31-2012 History of tobacco use Cigarette Smoker [facility] Work Phone: Start: 04-13-2023 End: 01-21-2024 Tobacco use and exposure Smokeless tobacco non-user [facility] Work Phone: Start: 04-13-2023 End: 01-21-2024 Alcohol intake Lifetime non-drinker (finding) [facility] Work Phone: Start: 1965 Sex Assigned At Not on file [facility] Work Phone: Start: 07-19-2023 End: 06-19-2024 Gender identity Not on file [facility] Work Phone: Start: 04-03-2023 End: 10-15-2024 Exposure to SARS-CoV-2 (event) Not sure [facility] Start: 07-19-2023 End: 02-02-2025 Alcohol intake Ex-drinker (finding) [facility] Start: 06-06-2023 Alcohol Comment caffeine 1-2 c ups per day [facility] Healthcare Childcare Unknown [facility] Start: 01-21-2015 Sex Male (finding) [facility] Goals Date Patient Goal Desired Activity /State Clinical Notes 08-25-2022 to 02-02-2025 Eusebia Terrell NP - 02/02/2025 3:16 PM Melchor Terrell NP - 02/02/2025 3:16 PM Melchor Terrell NP - 02/02/2025 3:15 PM Melchor Terrell NP - 02/02/2025 3:15 PM EDTPatient InstructionsAttachments Note Date & Type Note Facility 02-02-2025 History of Present illness Narrative Associated Problem(s): Class 3 severe obesity due to excess calories with serious comorbidity and body mass index (BMI) of 50.0 to 59.9 in adult ([facility]-H[facility]) Discussed with patient their BMI (actual, verses [...] If cannot tolerate stockings, try igor wraps Associated Problem(s): Arrhythmia Continue with cardiology and eliquis and current meds Associated Problem(s): Chronic obstructive pulmonary disease, unspecified (HCC) Current meds: trelegy, prn duo neb, xopenex inhaler Associated Problem(s): Thyroid nodule Hx of thyroid nodule Thyroid labs in 10/10 WNL No supplemental levo Check thyroid US Wound on lower left bar-opened within the last 48hrs Redness and swelling Images from the original note were not included. Elyse Duong is a 59 y.o. male presents with chief complaint of Hypertension HPI: Here for a recheck: Has been in the ER twice in the last 2 weeks for swelling in legs, and in pain. [place] Er X1 and [facility] ER once Given 2 atb at [facility] started on 01/31/25 for 10 days. No [...] doxycycline (MONODOX) 100 mg, 2 times daily Zzmhnvpnmtn-Zpdpgebcj-Zwifje (Trelegy Ellipta) 100-62.5-25 MCG/ACT aerosol powder 1 [...] COPD (chronic obstructive pulmonary disease) with emphysema ([facility]) 06/28/2023 Coronary artery disease involving [place] coronary artery of [place] heart without angina pectoris 09/21/2022 DENIES H/O BLOOD BORNE DISEASE Hyperlipidemia Hypoxia 06/28/2023 Myocardial infarction (HCC) CATERINA (obstructive sleep apnea) 05/25/2023 Primary hypertension 05/25/2023 Severe persistent asthma, uncomplicated (HCC) 04/09/2024 Superficial phlebitis and thrombophlebitis of left lower extremity 08/16/2023 Venous insufficiency of both lower extremities Past Surgical History: Procedure Laterality Date ANGIOPLASTY 2013 CHOLECYSTECTOMY 2016 KNEE SURGERY Left 04/15/2021 SCOPE - DR GREER ([facility]) family history includes Diabetes in his mother. OBJECTIVE: Visit Vitals BP 100/60 (BP Location: Left arm, Patient Position: Sitting, BP Cuff Size: Large adult) Pulse 61 Temp 97.7 F (Temporal) Resp 26 Wt 370 lb 6.4 oz SpO2 91% BMI 56.32 kg/m Smoking Status Former BSA 2.84 m Physical Exam Vitals and nursing note [...] prn duo neb, xopenex inhaler Relevant Medications Yavjlgcgkxe-Hrgkobtde-Jkmurv (Trelegy Ellipta) 100-62.5-25 MCG/ACT aerosol powder Venous [...] (BMI) of 50.0 to 59.9 in adult ([facility]) Discussed with patient their BMI (actual, verses [...] with weight loss Associated Problem(s): Bilateral lower leg cellulitis Recent ER visit X2 in the last few weeks Finish atb, elevate legs Fu in 3 weeks for recheck Associated Problem(s): Paroxysmal atrial fibrillation (HCC) Cardiology Current meds: asa, eliquis, cardizem, metoprolol Recommend working w pulmonology for PAP use as well Associated Problem(s): Primary hypertension Please check blood pressure daily and record DASH diet Limit caffeine Take medication as directed Contact office if chest pain, pressure, dizziness, shortness of breath, swelling legs Recommend slow position changes Current meds: losartan, metoprolol, cardizem, and torsemide Associated Problem(s): Venous insufficiency of both lower extremities Stable at this time No changes in meds/doses documented in this encounter [facility] 02-02-2025 Instructions Eusebia Terrell NP - 02/02/2025 2:40 PM EDT Finish atb, wrap bilat legs with igor wraps to help with swelling See you back in 3 weeks, call sooner if worsening in condition documented in this encounter [facility] 01-02-2025 Miscellaneous Notes Patient called office to schedule a follow up with SE proposal writer scheduled patient for next available 05/21/2025 [...] saturation 88-92% Will need imaging reports from [place] Weight loss would be helpful in reducing dyspnea symptoms. Heart failure clinic follow up. Deep breathing exercises. Maintain up to date on routine vaccination. Adherence to bipap advised. Will obtain nocturnal pulse ox while on RA with BIPAP to assess for indication of bleed in O2. RTC in 5 months or earlier if needed. Order placed for CXR and PFT data. Dental Coordinator called patient and informed him that per SE, she would like him to complete a CXR and PFT prior to his upcoming appointment on 05/21/2025. Patient verbalized understanding, proposal writer provided patient with central scheduling phone number. Patient stated that he would have testing completed in April, proposal writer verbalized understanding. documented in this encounter [facility] 01-02-2025 Telephone encounter Note Patient called office to schedule a follow up with SE, proposal writer scheduled patient for next available 05/21/2025 [...] saturation 88-92% Will need imaging reports from [place] Weight loss would be helpful in reducing dyspnea symptoms. Heart failure clinic follow up. Deep breathing exercises. Maintain up to date on routine vaccination. Adherence to bipap advised. Will obtain nocturnal pulse ox while on RA with BIPAP to assess for indication of bleed in O2. RTC in 5 months or earlier if needed. [facility] 01-02-2025 Telephone encounter Note Order placed for CXR and PFT data. [facility] 01-02-2025 Telephone encounter Note Dental Coordinator called patient and informed him that per SE, she would like him to complete a CXR and PFT prior to his upcoming appointment on 05/21/2025. Patient verbalized understanding, proposal writer provided patient with central scheduling phone number. Patient stated that he would have testing completed in April, proposal writer verbalized understanding. [facility] 12-22-2024 History of Present illness Narrative Left leg Images from the original note were not included. Elyse Duong is a 59 y.o. male presents with chief complaint of No chief complaint on file. HPI: Here for recheck: Not wearing PAP, drys mouth out too much, has not call pulmonology in [place] to get a fu appt either Breathing: [...] no compliance problems. Hypertensive end-organ damage includes CAD/TX, heart failure and PVD. SUBJECTIVE: MEDICATIONS: Current Outpatient Medications Medication Instructions apixaban (ELIQUIS) 5 mg, Oral, 2 times daily aspirin (ASPIRIN LOW DOSE) 81 mg, Oral, Daily atorvastatin (LIPITOR) 40 mg, Oral, Nightly dapagliflozin (FARXIGA) 10 mg, Oral, Daily dilTIAZem CD (CARDIZEM CD) 240 mg, Oral, Daily Kxwqwoqmeim-Oyryboeyh-Slvckw (Trelegy Ellipta) 100-62.5-25 MCG/ACT aerosol powder 1 [...] COPD (chronic obstructive pulmonary disease) with emphysema (HCC) 06/28/2023 Coronary artery disease involving [place] coronary artery of [place] heart without angina pectoris 09/21/2022 DENIES H/O BLOOD BORNE DISEASE Hyperlipidemia Hypoxia 06/28/2023 Myocardial infarction (HCC) CATERINA (obstructive sleep apnea) 05/25/2023 Primary hypertension 05/25/2023 Severe persistent asthma, uncomplicated (HCC) 04/09/2024 Superficial phlebitis and thrombophlebitis of left lower extremity 08/16/2023 Venous insufficiency of both lower extremities Past Surgical History: Procedure Laterality Date ANGIOPLASTY 2013 CHOLECYSTECTOMY 2016 KNEE SURGERY Left 04/15/2021 SCOPE - [address] GREER ([facility]) family history includes Diabetes in his mother. [...] Addressed This Visit Coronary artery disease involving [place] coronary artery of [place] heart without angina pectoris Follow with cardiology [...] (BMI) of 50.0 to 59.9 in adult ([facility]) Discussed with patient their BMI (actual, verses [...] I have instructed pt to call his director of medical services, he states he will do this tomorrow [...] I have instructed pt to call his director of medical services, he states he will do this tomorrow [...] (BMI) of 50.0 to 59.9 in adult ([facility]) Discussed with patient their BMI (actual, verses [...] well Associated Problem(s): Coronary artery disease involving [place] coronary artery of [place] heart without angina pectoris Follow with cardiology [...] w use: NA documented in this encounter [facility] 12-22-2024 Instructions Eusebia Terrell NP - 12/22/2024 2:20 PM EDT I will check with Central Services Tech about your meds, the doses and your blood pressure in office today Get labs checked I also want you to call your lung doctor in [place] documented in this encounter [facility] 10-15-2024 History of Present illness Narrative Chief [...] (Multi) Follow Up In Cardiology 3. Old TX (myocardial infarction) 4. Poor compliance 5. Essential hypertension 6. Morbid obesity with BMI of 50.0-59.9, adult (Multi) 7. Obstructive sleep apnea syndrome 8. Former smoker Scribe Attestation By signing my name below, I, Jessy Ramsey LPN , [place] attest that this documentation has been prepared [...] discussion and plan. documented in this encounter [facility] Work Phone: 10-15-2024 Instructions Jessy Chance LPN [...] sent through Care Everywhere.Body Mass Index, Adult ([place])documented in this encounter [facility] Work Phone: 09-18-2024 History of Present illness [...] CD (CARDIZEM CD) 240 mg, Oral, Daily Dnpxklnpgdn-Holgqulnn-Tgxgcl (Trelegy Ellipta) 100-62.5-25 MCG/ACT aerosol powder 1 [...] 06/06/2023 CAD (coronary artery disease) ([facility]) COPD (chronic obstructive pulmonary disease) with emphysema ([facility]) 06/28/2023 Coronary artery disease involving [place] coronary artery of [place] heart without angina pectoris ([facility]) 09/21/2022 DENIES H/O BLOOD BORNE DISEASE Hyperlipidemia ([facility]) Hypoxia 06/28/2023 Myocardial infarction ([facility]) CATERINA (obstructive sleep apnea) 05/25/2023 Primary hypertension ([facility]) 05/25/2023 Superficial phlebitis and thrombophlebitis of left lower extremity 08/16/2023 Venous insufficiency of both lower extremities Past Surgical History: Procedure Laterality Date ANGIOPLASTY 2013 CHOLECYSTECTOMY 2016 KNEE SURGERY Left 04/15/2021 SCOPE - [facility] GREER ([facility]) family history includes Diabetes in his mother. [...] Addressed This Visit Coronary artery disease involving [place] coronary artery of [place] heart without angina pectoris (CMS/HCC) Follow with [...] prn duo neb, xopenex inhaler Relevant Medications Imquaetmwrg-Gzcsvwpet-Reclqs (Trelegy Ellipta) 100-62.5-25 MCG/ACT aerosol powder Pre-diabetes [...] prn Associated Problem(s): Coronary artery disease involving [place] coronary artery of [place] heart without angina pectoris (CMS/HCC) Follow with [...] w use: NA documented in this encounter [facility] 09-18-2024 Instructions Eusebia Terrell NP - 09/18/2024 11:00 AM EDT No med dose change, however I am going to send notes and labs to heart doctor Make an appt with Lung doctor Vit D3 2,000 international units documented in this encounter [facility] 08-08-2024 Miscellaneous Notes OV 01/21/24 BMP 05/28/24 documented in this encounter [facility] 08-08-2024 Telephone encounter Note OV 01/21/24 BMP 05/28/24 [facility] 07-18-2024 Miscellaneous Notes UNABLE TO LEAVE VOICEMAIL REMINDER ABOUT APPOINTMENT ON SUNDAY AT 9:00. documented in this encounter [facility] 07-18-2024 Telephone encounter Note UNABLE TO LEAVE VOICEMAIL REMINDER ABOUT APPOINTMENT ON SUNDAY AT 9:00. [facility] 06-19-2024 History of Present illness Narrative Associated [...] Any Hospitalizations in the last year: Specialist: pullman car repairer: Dayanna, Pulmonology: dimas, Dentist: dimas, no eye [...] no compliance problems. Hypertensive end-organ damage includes CAD/TX and heart failure. Diabetes He presents for [...] CD (CARDIZEM CD) 240 mg, Oral, Daily Wbhfuxdyyyq-Hveitcnrj-Qmrjkm (Trelegy Ellipta) 100-62.5-25 MCG/ACT aerosol powder 1 [...] 06/06/2023 CAD (coronary artery disease) ([facility]) COPD (chronic obstructive pulmonary disease) with emphysema ([facility]) 06/28/2023 Coronary artery disease involving [place] coronary artery of [place] heart without angina pectoris ([facility]) 09/21/2022 DENIES H/O BLOOD BORNE DISEASE Hyperlipidemia ([facility]) Hypoxia 06/28/2023 Myocardial infarction ([facility]) CATERINA (obstructive sleep apnea) 05/25/2023 Primary hypertension ([facility]) 05/25/2023 Superficial phlebitis and thrombophlebitis of left lower extremity 08/16/2023 Venous insufficiency of both lower extremities Past Surgical History: Procedure Laterality Date ANGIOPLASTY 2013 CHOLECYSTECTOMY 2016 KNEE SURGERY Left 04/15/2021 SCOPE - [address] GREER ([facility]) family history includes Diabetes in his mother. [...] Addressed This Visit Coronary artery disease involving [place] coronary artery of [place] heart without angina pectoris ([facility]) Follow with cardiology Cont b preet, statin, asa Primary hypertension ([facility]) Please check blood pressure daily and record [...] NA Body mass index (BMI) 50.0-59.9, adult ([facility]) Paroxysmal atrial fibrillation ([facility]) Cardiology Current meds: asa, eliquis, cardizem, metoprolol Recommend working w pulmonology for PAP use as well Bilateral lower extremity edema Continue diuretics Elevation of legs above heart level as much as possible Recommend wearing PAP Chronic obstructive pulmonary disease, unspecified ([facility]) Current meds: trelegy, prn duo neb, xopenex [...] (Hb A1C) docked device (Completed) Mixed hyperlipidemia ([facility]) Current med statin Check labs yearly and prn Chronic diastolic (congestive) heart failure ([facility]) Follows with cardiology Daily weights, limit sodium [...] (BMI) of 50.0 to 59.9 in adult ([facility]) Discussed with patient their BMI (actual, verses [...] to help with weight loss Emphysema, unspecified ([facility]) Telegy, and prn xopenex Pulmonology as well RESOLVED: Morbid (severe) obesity due to excess calories ([facility]) URI (upper respiratory infection) Has had covid exposure, at this point will hold on atb Will give steroids and tessalon pearles Fluids, rest, if resp distress go to ER Relevant Medications benzonatate (Tessalon) 200 MG capsule predniSONE (Deltasone) 20 MG tablet Associated Problem(s): Mixed hyperlipidemia ([facility]) Current med statin Check labs yearly and [...] (BMI) of 50.0 to 59.9 in adult ([facility]) Discussed with patient their BMI (actual, verses [...] well Associated Problem(s): Coronary artery disease involving [place] coronary artery of [place] heart without angina pectoris (CMS/HCC) Follow with [...] w use: NA documented in this encounter [facility] 06-19-2024 Instructions Eusebia Terrell NP - 06/19/2024 10:00 AM EST Finish steroids, tessalon pearles, fluids, rest If worsening in breathing go to Er documented in this encounter [facility] 05-23-2024 Miscellaneous Notes Attempted to call patient an remind that bmp recheck is over dude. not set up, lab slip mailed to patient. documented in this encounter [facility] 05-23-2024 Telephone encounter Note Attempted to call patient an remind that bmp recheck is over dude. not set up, lab slip mailed to patient. [facility] 04-09-2024 History of Present illness Narrative Associated Problem(s): COPD (chronic obstructive pulmonary disease) with emphysema ([facility]) Stable at this time Associated Problem(s): Environmental [...] CD (CARDIZEM CD) 240 mg, Oral, Daily Hodfefjsnhb-Xgjqumseb-Pehafz (Trelegy Ellipta) 100-62.5-25 MCG/ACT aerosol powder 1 [...] 06/06/2023 CAD (coronary artery disease) ([facility]) COPD (chronic obstructive pulmonary disease) with emphysema ([facility]) 06/28/2023 Coronary artery disease involving [place] coronary artery of [place] heart without angina pectoris ([facility]) 09/21/2022 DENIES H/O BLOOD BORNE DISEASE Hyperlipidemia (CMS/HCC) Hypoxia 06/28/2023 Myocardial infarction (CMS/HCC) CATERINA (obstructive sleep apnea) 05/25/2023 Primary hypertension (CMS/HCC) 05/25/2023 Superficial phlebitis and thrombophlebitis of left lower extremity 08/16/2023 Venous insufficiency of both lower extremities Past Surgical History: Procedure Laterality Date ANGIOPLASTY 2013 CHOLECYSTECTOMY 2016 KNEE SURGERY Left 04/15/[address] GREER ([facility]) family history includes Diabetes in his mother. [...] Morbid obesity with BMI of 50.0-59.9, adult ([facility]) COPD (chronic obstructive pulmonary disease) with emphysema ([facility]) Stable at this time Severe persistent asthma, uncomplicated ([facility]) Environmental and seasonal allergies - Primary I think this represents more of allergies no viral illness not bacteria OTC allergy meds/nasal steroids Contact office if worsening in symtpoms documented in this encounter [facility] 03-26-2024 Miscellaneous Notes Dental Coordinator called and was unable to leave message for patient to remember to bring pap machine and power cord or SD card to appointment with [facility] on 03/27/24 in [place]. documented in this encounter [facility] 03-26-2024 Telephone encounter Note Dental Coordinator called and was unable to leave message for patient to remember to bring pap machine and power cord or SD card to appointment with SE on 03/27/24 in [place]. [facility] 02-06-2024 History of Present illness Narrative Associated Problem(s): Morbid obesity with BMI of 50.0-59.9, adult ([facility]) Will try ozempic with new insurance card Associated Problem(s): Other headache syndrome Neuro no deficits Possible related to not wearing pap If worsens contact office Associated Problem(s): Pre-diabetes Has new insurance, will re try with ozempic Associated Problem(s): Primary hypertension ([facility]) Will monitor Associated Problem(s): Paroxysmal atrial fibrillation (CMS/HCC) Continues to be in afib Associated Problem(s): Chronic diastolic heart failure (CMS/HCC) Take farxiga and diuretics and bp meds Associated Problem(s): Arrhythmia Continue with cardiology and eliquis and current meds Associated Problem(s): COPD (chronic obstructive pulmonary disease) with emphysema (CMS/HCC) Cont inhalers, and Wearing oxygen Cont w director of medical services Pt has been having dizziness and headaches [...] no compliance problems. Hypertensive end-organ damage includes CAD/TX. Identifiable causes of hypertension include sleep apnea. SUBJECTIVE: MEDICATIONS: Current Outpatient Medications Medication Instructions apixaban (ELIQUIS) 5 mg, Oral, 2 times daily aspirin 81 mg, Oral, Daily atorvastatin (LIPITOR) 40 mg, Oral, Nightly dilTIAZem CD (CARDIZEM CD) 240 mg, Oral, Daily Farxiga 10 mg, Oral, Daily Udcougctgvp-Mepufwwdj-Puizmi (Trelegy Ellipta) 100-62.5-25 MCG/ACT aerosol powder 1 [...] 06/06/2023 CAD (coronary artery disease) ([facility]) COPD (chronic obstructive pulmonary disease) with emphysema ([facility]) 06/28/2023 Coronary artery disease involving [place] coronary artery of [place] heart without angina pectoris ([facility]) 05/25/2023 DENIES H/O BLOOD BORNE DISEASE Hyperlipidemia ([facility]) Hypoxia 06/28/2023 Myocardial infarction ([facility]) CATERINA (obstructive sleep apnea) 05/25/2023 Primary hypertension ([facility]) 05/25/2023 Superficial phlebitis and thrombophlebitis of left lower extremity 08/16/2023 Venous insufficiency of both lower extremities Past Surgical History: Procedure Laterality Date ANGIOPLASTY 2013 CHOLECYSTECTOMY 2016 KNEE SURGERY Left 04/15/20[address] - [address] GREER ([facility]) family history includes Diabetes in his mother. [...] MG 24 hr capsule Primary hypertension (CMS/HCC) Will monitor Relevant Medications losartan (Cozaar) 50 MG tablet metoprolol tartrate (Lopressor) 50 MG tablet Paroxysmal atrial fibrillation (CMS/HCC) Continues to be in afib Relevant Medications aspirin 81 MG EC tablet metoprolol tartrate (Lopressor) 50 MG tablet COPD (chronic obstructive pulmonary disease) with emphysema (CMS/HCC) Cont inhalers, and Wearing oxygen Cont w director of medical services Pre-diabetes - Primary Has new insurance, will re try with ozempic Relevant Medications dapagliflozin (Farxiga) 10 MG Chronic diastolic heart failure (CMS/HCC) Take farxiga and diuretics and bp meds Relevant Medications dapagliflozin (Farxiga) 10 MG Other headache syndrome Neuro no deficits Possible related to not wearing pap If worsens contact office Other Visit Diagnoses Hyperlipidemia, unspecified (CMS/HCC) Relevant Medications atorvastatin (Lipitor) 40 MG tablet Chronic obstructive pulmonary disease, unspecified COPD type (CMS/HCC) Relevant Medications Lsffdaknjle-Yppsxqflo-Wmlqfr (Trelegy Ellipta) 100-62.5-25 MCG/ACT aerosol powder levalbuterol (Xopenex) 45 MCG/ACT inhaler Chest pain due to CAD (CMS/HCC) documented in this encounter [facility] 02-05-2024 Miscellaneous Notes OV 01/21/24 BMP 01/21/24 [facility] Tele[facility] encounter Note OV 01/21/24 BMP [facility]21[facility]24 [facility] History of Present illness Narrative Images [...] was following with another cardiology group in [place] and had multiple hospitalizations for issues related to atrial fibrillation, volume overload and COPD exacerbations in the fall sof 2022 at [facility]. He was seen as a new patient [...] Order Specific Question: Release to patient via [facility]? Answer: Immediate [1] Magnesium Standing Status: Future Number of Occurrences: 1 Standing Expiration Date: 01/20/2025 Order Specific Question: Release to patient via [facility]? Answer: Immediate [1] B-type natriuretic peptide Standing Status: Future Number of Occurrences: 1 Standing Expiration Date: 01/20/2025 Order Specific Question: Release to patient via [facility]? Answer: Immediate [1] Medications Changed @EDPTMEDCHANGE@ SUBJECTIVE [...] mg total) by mouth in the morning. rvwgrwwoeis-mawbhopub-zspsyybi (TRELEGY ELLIPTA) 100-62.5-25 mcg blister with device [...] Past Medical History: Diagnosis Date Atrial fibrillation ([facility]) Bilateral lower extremity edema CAD (coronary artery disease) Hypertension Hypoxia Knee pain Lung nodule Mixed hyperlipidemia Morbid obesity ([facility]) Myocardial infarction ([facility]) Obesity Pre-diabetes Pulmonary emphysema ([facility]) Sleep apnea knee pain Superficial phlebitis Venous [...] APRN-CNP 01/21/24 1522 documented in this encounter [facility] 01-21-2024 Instructions SHAYLA Messer - 01/21/2024 2:30 PM EDT Blood work today Will adjust your medications if necessary after review the results documented in this encounter [facility] 11-14-2023 Miscellaneous Notes 11/12 Order received 1st call to schedule Vm is not set up sent letter Pap Order and 10/24 and 05/03 notes in epic BIPAP with TCO2 monitoring documented in this encounter [facility] 11-14-2023 Telephone encounter Note 11/12 Order received 1st call to schedule Vm is not set up sent letter Pap Order and 10/24 and 05/03 notes in epic BIPAP with TCO2 monitoring [facility] 11-13-2023 History of Present illness Narrative Overnight pulse ox reviewed and only done on 3L. Needs repeat PAP titration with BIPAP and TCO2 monitoring to assess for needs of bleed in O2 please. documented in this encounter [facility] 11-11-2023 Miscellaneous Notes Requesting 90 day supply instead of 30 OV 3/424 BMP 10/30/23 documented in this encounter [facility] 11-11-2023 Telephone encounter Note Requesting 90 day supply instead of 30 OV 3/424 BMP 10/30/23 [facility] 10-31-2023 Miscellaneous Notes Images from the original note were not included. Nishi Max RN 10/31/2023 2:55 PM EDT Back to Top Called patient with results, v/u. Orders placed in separate encounter. Nishi Max RN 10/31/2023 8:58 AM EDT Shakira Purdy RN 10/31/2023 8:46 AM EDT Dental Coordinator attempted to call patient and LM on VM but VM box has not been set up. Dental Coordinator called patients to review normal mag results. She will have pt call the [facility] regarding [facility] recommendations on other lab results. Samara Noel MD 10/31/2023 8:09 AM EDT Labs look good. We discussed adding spironolactone instead of the potassium that he is on. Have him stop the potassium completely and start spironolactone 25 mg daily, he needs a repeat basic metabolic panel in 7-10 days Nishi Max RN 10/31/2023 6:40 AM EDT Labs ordered at OV 3/4 were supposed to be done 1 week after stopping Lasix and starting Torsemide 40mg daily, he is taking Potassium 10meq BID. documented in this encounter [facility] 10-31-2023 Telephone encounter Note Images from the original note were not included. Nishi Max RN 10/31/2023 2:55 PM EDT Back to Top Called patient with results, v/u. Orders placed in separate encounter. Nishi Max RN 10/31/2023 8:58 AM EDT Shakira Purdy RN 10/31/2023 8:46 AM EDT Dental Coordinator attempted to call patient and LM on VM but VM box has not been set up. Dental Coordinator called patients to review normal mag results. She will have pt call the [facility] regarding [facility] recommendations on other lab results. Samara Noel MD 10/31/2023 8:09 AM EDT Labs look good. We discussed adding spironolactone instead of the potassium that he is on. Have him stop the potassium completely and start spironolactone 25 mg daily, he needs a repeat basic metabolic panel in 7-10 days Nishi Max RN 10/31/2023 6:40 AM EDT Labs ordered at OV 3/4 were supposed to be done 1 week after stopping Lasix and starting Torsemide 40mg daily, he is taking Potassium 10meq BID. [facility] 10-25-2023 History of Present illness Narrative Images from the original note were not included. [facility] Sleep Progress Note Patient - Elyse Duong Age - 58 y.o. - 1965 [facility] # - [id number] ASSESSMENT 1. Chronic hypoxic respiratory failure 2. [...] to establish with heart failure clinic in [facility]. He had CTA chest in March at outside facility but cannot recall where. He thinks it was likely [place]. He is not using his BIPAP at [...] Meds Medications Reviewed. Dr. Lisa Cervantes DO. [facility] Office: [phone] documented in this encounter [facility] 10-24-2023 Miscellaneous Notes Dental Coordinator called patient's mobile number, stated call could not be completed. Dental Coordinator called patient's home phone, phone rang and rang until finally a busy tone came on. Unable to make contact with patient. Dental Coordinator needed to see if patient could bring his PAP machine with him to his appointment on 10/25/2023 documented in this encounter [facility] 10-24-2023 Telephone encounter Note Dental Coordinator called patient's mobile number, stated call could not be completed. Dental Coordinator called patient's home phone, phone rang and rang until finally a busy tone came on. Unable to make contact with patient. Dental Coordinator needed to see if patient could bring his PAP machine with him to his appointment on 10/25/2023 [facility] 10-24-2023 Miscellaneous Notes Pt was a no show for his JZ[facility] appt. T/C to pt to r/s , no answer no v/m. Letter mailed. documented in this encounter [facility] 10-24-2023 Telephone encounter Note Pt was a no show for his JZL appt. T/C to pt to r/s , no answer no v/m. Letter mailed. [facility] 10-23-2023 Miscellaneous Notes Attempted to phone pt to remind of appt scheduled for 10/24/23, phone just rings and then goes busy. documented in this encounter [facility] 10-23-2023 Telephone encounter Note Attempted to phone pt to remind of appt scheduled for 10/24/23, phone just rings and then goes busy. [facility] 10-11-2023 Miscellaneous Notes Was sent 08/20/23 with 5 refills. No show'd last appt 09/24/23. Not sending 90 as cannot confirm pt requested. Attempted to call him and no answer. documented in this encounter [facility] 10-11-2023 Telephone encounter Note Was sent 08/20/23 with 5 refills. No show'd last appt 09/24/23. Not sending 90 as cannot confirm pt requested. Attempted to call him and no answer. [facility] 10-08-2023 History of Present illness Narrative Subjective [...] the patient had been followed by Dr. Mondragon the last few times. He reported he was at [facility] for atrial fibrillation. His diltiazem dose was [...] Essential hypertension 4. Mixed hyperlipidemia 5. Old TX (myocardial infarction) 6. Morbid obesity with BMI of 50.0-59.9, adult (Multi) 7. Former smoker Scribe Attestation By signing my name below, Cornelia Small LPN, Scribe attest that this documentation [...] discussion and plan. documented in this encounter [facility] Work Phone: 10-08-2023 Instructions Cornelia Dubois LPN [...] instructions on exercise. documented in this encounter [facility] Work Phone: 08-21-2023 Miscellaneous Notes Patient seen yesterday in [place] as new patient. Calling back today as [...] as previously relayed. documented in this encounter [facility] 08-21-2023 Telephone encounter Note Patient seen yesterday in [place] as new patient. Calling back today as directed to confirm yes, he is taking potassium 10meq BID. Asking if there are any chagnes? [facility] 08-21-2023 Telephone encounter Note Cally told me yesterday and I told her to put it on his med list and he has blood work that he will be doing before we reassess his dose [facility] 08-21-2023 Telephone encounter Note Detailed VM left for patient with IMH response. We will re evaluate once labs completed as ordered. [facility] 08-21-2023 Telephone encounter Note Patient calling clinic again asking what to take. Relayed I left him a VM yesterday to continue as he is and get lab work done in a week as previously relayed. [facility] 08-20-2023 History of Present illness Narrative Images from the original note were not included. [facility] Patient: Elyse Duong Date of : 1965 Age: 58 y.o. Date of Encounter: 08/20/2023 REASON FOR VISIT: Chronic heart failure. Dear EUSEBIA TERRELL APRN-NATALIA & Faith Mandujano MD We had the pleasure of seeing your patient, Elyse Duong, in the [facility] on 08/20/2023. Mr. [...] was following with another cardiology group in [place] and had multiple hospitalizations for issues related to atrial fibrillation, volume overload and COPD exacerbations in the fall of 2022 at [facility]. SUBJECTIVE HPI Mr. Duong is here for [...] I reviewed the notes sent over from [facility] and the recent visit with cardiology. Labs from [facility] 08/06/23: A1c 6.0%, BUN 19, creatinine 1.01, [...] mg total) by mouth in the morning. yloxdjtjeuf-dgvvhsykk-zvgisnxx (TRELEGY ELLIPTA) 100-62.5-25 mcg blister with device [...] sensory or motor deficitis. LAB DATA: Mr. Duong's most recent labs available in the medical record were reviewed today. CARDIAC TESTING:. See above ECHO: No results found. STRESS: Nuc stress Lexiscan Result Date: 10/03/2022 Interpreted By: MADISON BLANCO MD Patient Name: ELYSE DUONG STUDY: MYOCARDIAL PERFUSION STRESS TEST WITH LEXISCAN Performing facility: [facility], [address] [place] [address], [address], [address] Provider: Tequila Jaffe MD, FACC PCP: Dr. Tristen Terrell Supervising provider: Mary Julien MD, FACC INDICATION: DOT physical I25.10: CAD S/P percutaneous coronary angioplasty Z98.61 HISTORY: Gender: M; Age: 57 y/o ; Height: 0 cm; Weight: 154.479467 kg. CAD; High Cholesterol; HTN; Previous TX; Arrhythmias; AFib Quit smoking 10 years ago. Cardiac catheterization 2012. PTCA on RCA. COMPARISON: No comparison. ACCESSION NUMBER(S): [id number]; [id number] ORDERING CLINICIAN: TEQUILA JAFFE TECHNIQUE: TWO DAY [...] Cardiac Device: None Prior HF Hospitalizations: 04/2023 [facility] Estimated Dry Weight: TBD Today's Visit Weight: [...] coordination of care. 08/20/2023 Samara Noel MD, [facility] Failure & Transplant Cardiology [facility] [address] [facility]. [facility] [address] [place] [address] Fax This note was completed using a voice air hammer stripper system. Every effort was made to ensure accuracy. However, inadvertent computerized air hammer stripper errors may be present. Pt called into clinic. Pt is taking potassium 10meq twice a day. documented in this encounter [facility] 08-20-2023 Instructions Samara Noel MD - 08/20/2023 [...] by calling the Heart Failure Clinic at [phone]. Please call 911 for emergencies. General Heart Failure Tips: - Maintain a sodium restricted diet. Your total intake should be <2000 mg a day. A rule of thumb is to keep each meal around 500 mg. On average, Stateless eat between 3,400 and 3,700 mg/day of [...] VACCINATION is advised. documented in this encounter [facility] 07-26-2023 History of Present illness Narrative Elyse Duong Date of visit: 07/26/2023 Date of : 1965 Age: 58 y.o. Patient Active Problem List Diagnosis Pulmonary nodule History of tobacco use CATERINA treated with BiPAP Morbid obesity ([facility]) Restrictive pattern present on pulmonary function testing Fatty liver Primary hypertension CAD (coronary artery disease) History of coronary angioplasty with insertion of stent Chronic obstructive pulmonary disease ([facility]) Allergies Allergen Reactions Lisinopril Cough Current Outpatient [...] mg total) by mouth in the morning. jfsbabxvgui-ywrolvbay-uyzhsrzl (TRELEGY ELLIPTA) 100-62.5-25 mcg blister with device [...] Chief Complaint Patient presents with New Patient TRAIN RESERVATION CLERK A FIB STRESS, CXR, CTA, USED TO SEE [facility] SCHED History of Present Illness Patient with history of TX, coronary disease with stent to the RCA, hyperlipidemia, severe COPD on home O2, morbid obesity, CATERINA. New to our practice. Referred for evaluation of new onset atrial fibrillation. Previously follow with [facility]. Patient stated that he wanted [...] pain Lung nodule Mixed hyperlipidemia Morbid obesity ([facility]) Myocardial infarction ([facility]) Obesity Pre-diabetes Pulmonary emphysema ([facility]) Sleep apnea knee pain Superficial phlebitis Venous [...] Smoking status: Former Types: Cigarettes Quit date: 2013 Years since quittin.1 Smokeless tobacco: Never Vaping [...] adjustment IMPRESSIONS/PLAN 1. Atrial fibrillation, unspecified type ([facility]) - POCT EKG - Basic Metabolic Panel; Future - Magnesium; Future - Ambulatory referral to Cardiac Electrophysiology; Future 2. History of coronary angioplasty with insertion of stent - POCT EKG 3. History of tobacco use - POCT EKG 4. Primary hypertension - POCT EKG 5. Paroxysmal atrial fibrillation ([facility]) - Ambulatory referral to Cardiology (Non[facility]) - POCT EKG 6. Bilateral lower extremity edema - Ambulatory referral to Cardiology (Non[facility]) - POCT EKG 7. Heart failure with preserved ejection fraction, unspecified HF chronicity ([facility]) - [facility] - [place], [place]; Future Previous cardiac related labs and test results were reviewed and discussed with the patient. Recently diagnosed atrial fibrillation (heart chads Vasc score) on Eliquis Hx of TX CAD with hx BMS to RCA 2012 - [facility] 2014: patent stent with 40% ISR, no significant stenosis elsewehre, abrupt Lcx end suggesting possible obstruction (small vessel) Negative low risk Tiffanie nuclear stress test 09/2022 Chronic HFpEF - Normal EF TTE 04/2023 Hyperlipidemia Hx of tobacco use - quit 2012 CATERINA/ not compliant with CPAP Morbid obesity, BMI 55 Patient is here to establish care. Previously follows with [facility] heart group. Patient in atrial fibrillation [...] Panel Magnesium Ambulatory referral to Cardiac Electrophysiology [facility] - [place], [place] POCT EKG FOLLOW UP Return in about 6 months (around 01/24/2024). PCP: No primary care provider on file. Referring Physician: Eusebia Terrell, HEAD OF INTEGRATED MEDIA-K 9 HANDLER/ DEPUTY [address] [place] [address] documented in this encounter [facility] 07-25-2023 Miscellaneous Notes Called patient to remind them to bring their most current copy of their medication list with them to their appt. Patient verbalizes understanding. [facility]-25-2023 Telephone encounter Note Called patient to remind them to bring their most current copy of their medication list with them to their appt. Patient verbalizes understanding. [facility] 07-19-2023 History of Present illness Narrative Associated Problem(s): Arrhythmia Has appt with new pullman car repairer next week Cont b preet, anti coagulation, Needs to wear PAP Associated Problem(s): Bilateral lower extremity edema stable Associated Problem(s): Chronic atrial fibrillation (HCC) (CMS/HCC) (Resolved 07/19/2023) Remains in a fib, ,cont b preet, anti coagulation Recommend PAP use Fu with new pullman car repairer next week Associated Problem(s): Primary hypertension (CMS/HCC) Stable on current meds Associated Problem(s): Hypoxia O2 Associated Problem(s): COPD (chronic obstructive pulmonary disease) with emphysema (CMS/HCC) Continue with director of medical services, as well as inhalers, etc Associated Problem(s): CATERINA (obstructive sleep apnea) Non complaint with PAP use Explained to pt why important to wear for heart failure, afib, and copd, will also help his LE edema Needs to call his director of medical services Very SOB wheezing Both legs seeping- legs [...] appt with cardiology for next week at [facility]. No chest pain or dizziness Is not wearing his CPAP , states it dries him out too much, has not been to his director of medical services recently either SUBJECTIVE: MEDICATIONS: Current Outpatient Medications [...] After use, clean tip and replace cap. Mtctqnulavu-Zryhxytzc-Tcmobx (Trelegy Ellipta) 100-62.5-25 MCG/ACT aerosol powder 1 [...] 06/06/2023 CAD (coronary artery disease) ([facility]) COPD (chronic obstructive pulmonary disease) with emphysema ([facility]) 06/28/2023 Coronary artery disease involving [place] coronary artery of [place] heart without angina pectoris ([facility]) 05/25/2023 DENIES H/O BLOOD BORNE DISEASE Hyperlipidemia ([facility]) Hypoxia 06/28/2023 Myocardial infarction (CMS/HCC) Obesity CATERINA (obstructive sleep apnea) 05/25/2023 Primary hypertension (CMS/HCC) 05/25/2023 Superficial phlebitis and thrombophlebitis of left lower extremity Venous insufficiency of both lower extremities Past Surgical History: Procedure Laterality Date ANGIOPLASTY 2013 CHOLECYSTECTOMY 2016 KNEE SURGERY Left 04/15/2021 SCOPE - [address] GREER ([facility]) family history includes Diabetes in his mother. [...] This Visit Arrhythmia Has appt with new pullman car repairer next week Cont b preet, anti coagulation, Needs to wear PAP Primary hypertension (CMS/HCC) Stable on current meds Relevant Orders Comprehensive metabolic panel Microalbumin / creatinine, urine ratio Urinalysis with reflex microscopic (clean catch) ACTERINA (obstructive sleep apnea) Non complaint with PAP use Explained to pt why important to wear for heart failure, afib, and copd, will also help his LE edema Needs to call his director of medical services Hyperlipidemia ([facility]) Relevant Orders Comprehensive metabolic panel Lipid panel Morbid obesity with BMI of 50.0-59.9, adult ([facility]) Bilateral lower extremity edema stable COPD (chronic obstructive pulmonary disease) with emphysema ([facility]) Continue with director of medical services, as well as inhalers, etc Hypoxia O2 Venous insufficiency of both lower extremities Screening for prostate cancer - Primary Relevant Orders PSA Pre-diabetes Relevant Orders Comprehensive metabolic panel Microalbumin / creatinine, urine ratio Urinalysis with reflex microscopic (clean catch) Hemoglobin A1c documented in this encounter [facility] 04-13-2023 History of Present illness Narrative Images from the original note were not included. CARDIOLOGY OFFICE VISIT CHIEF COMPLAINT HISTORY OF PRESENT ILLNESS The patient is being seen after recent hospitalization at [facility]. He states that he had atrial [...] coronary angioplasty Paroxysmal atrial fibrillation (CMS/HCC) Old [place] (myocardial infarction) Mixed hyperlipidemia Primary hypertension Obstructive sleep apnea syndrome Morbid obesity with BMI of 50.0-59.9, adult (CMS/HCC) Former smoker Status post ablation of incompetent vein using laser @ASSESSMENTANDPLANTEXT@ documented in this encounter [facility] Work Phone: 04-13-2023 Instructions Enrike Orozco RN [...] Justyn Ramirez MD documented in this encounter [facility] Work Phone: 08-25-2022 Note PROCEDURE: XR ANKLE [...] appreciable foreign body. Electronically authenticated by: KESHAWN PEKC Date: 2022-08-25 07:[address] [facility] Chief complaint Narrative - Reported ELYSE DUONG is being seen for a cardiovascular evaluation . POC for knee surgery. -[facility] DO Work Phone: Evaluation note Diagnosis CAD S/P percutaneous coronary angioplasty Paroxysmal atrial fibrillation (CMS/HCC) Atrial fibrillation Old [place] (myocardial infarction) Old myocardial infarction Mixed hyperlipidemia Primary hypertension Unspecified essential hypertension Obstructive sleep apnea syndrome Obstructive sleep apnea (adult) (pediatric) Morbid obesity with BMI of 50.0-59.9, adult (CMS/HCC) Former smoker Personal history of tobacco use, presenting hazards to health Status post ablation of incompetent vein using laser documented in this encounter [facility] Work Phone: Evaluation note* Diagnosis Screening for [...] (CMS/HCC)- Primary [facility] Diagnosis 2-vessel coronary artery disease- Primary Paroxysmal atrial fibrillation (Multi) Atrial fibrillation Essential hypertension Unspecified essential hypertension Mixed hyperlipidemia Old [place] (myocardial infarction) Old myocardial infarction Morbid obesity with BMI of 50.0-59.9, adult (Multi) Former smoker Personal history of tobacco use, presenting hazards to health documented in this encounter [facility] Work Phone: Evaluation note* Diagnosis Hyperlipidemia, unspecified (CMS/HCC) [facility] Diagnosis Bilateral lower extremity edema- [...] Morbid obesity with BMI of 50.0-59.9, adult ([facility]) History of tobacco use Personal history of tobacco use, presenting hazards to health Pulmonary emphysema, unspecified emphysema type ([facility]) Paroxysmal atrial fibrillation ([facility]) Atrial fibrillation Bilateral lower extremity edema Hypoxia Hypoxemia Pneumonia of both lungs due to infectious organism, unspecified part of lung Acute cough Screening for prostate cancer- Primary Special screening for malignant neoplasm of prostate Mixed hyperlipidemia ([facility]) Mixed hyperlipidemia Primary hypertension ([facility]) Unspecified essential hypertension Pre-diabetes Other abnormal glucose Morbid obesity with BMI of 50.0-59.9, adult ([facility]) Hypoxia Hypoxemia Pulmonary emphysema, unspecified emphysema type ([facility]) Bilateral lower extremity edema CATERINA (obstructive sleep apnea) Obstructive sleep apnea (adult) (pediatric) Venous insufficiency of both lower extremities Atrial fibrillation, unspecified type ([facility]) Pulmonary emphysema, unspecified emphysema type ([facility]/HCC)- Primary Venous insufficiency of both lower extremities Primary hypertension ([facility]) Unspecified essential hypertension Bilateral lower extremity edema Morbid obesity with BMI of 50.0-59.9, adult ([facility]) Pre-diabetes Other abnormal glucose Rising PSA level Paroxysmal atrial fibrillation (I48.0) Atrial fibrillation Pulmonary emphysema, unspecified emphysema type ([facility]/HCC)- Primary Atrial fibrillation, unspecified type ([facility]) Paroxysmal atrial fibrillation ([facility]) Atrial fibrillation CATERINA (obstructive sleep apnea) Obstructive sleep apnea (adult) (pediatric) Primary hypertension ([facility]) Unspecified essential hypertension Morbid obesity with BMI of 50.0-59.9, adult ([facility]) Chronic obstructive pulmonary disease, unspecified COPD type ([facility]) Pre-diabetes- Primary Other abnormal glucose Other thrombophilia ([facility]) CATERINA (obstructive sleep apnea) Obstructive sleep apnea (adult) (pediatric) Pulmonary emphysema, unspecified emphysema type ([facility]) Venous insufficiency of both lower extremities Primary hypertension ([facility]) Unspecified essential hypertension Paroxysmal atrial fibrillation ([facility]) Atrial fibrillation Coronary artery disease involving [place] coronary artery of [place] heart without angina pectoris ([facility]) Bilateral lower extremity edema Morbid obesity with BMI of 50.0-59.9, adult ([facility]) Rising PSA level Pre-diabetes- Primary Other abnormal glucose Other emphysema (CMS/HCC) Other emphysema Atrial fibrillation, unspecified type ([facility]) Hyperlipidemia, unspecified ([facility]) Chronic obstructive pulmonary disease, unspecified COPD type ([facility]) Chest pain due to CAD ([facility]) Primary hypertension ([facility]) Unspecified essential hypertension Paroxysmal atrial fibrillation ([facility]) Atrial fibrillation Chronic diastolic heart failure ([facility]) Chronic diastolic heart failure Other headache syndrome Morbid obesity ([facility]) Morbid obesity Morbid obesity with BMI of 50.0-59.9, adult ([facility]) Environmental and seasonal allergies- Primary Severe persistent asthma, uncomplicated ([facility]) Morbid obesity with BMI of 50.0-59.9, adult ([facility]) Pulmonary emphysema, unspecified emphysema type ([facility]) documented in this encounter [facility]* Diagnosis Pre-diabetes- Primary Other abnormal glucose Other emphysema ([facility]) Other emphysema Atrial fibrillation, unspecified type ([facility]) Hyperlipidemia, unspecified ([facility]) Chronic obstructive pulmonary disease, unspecified COPD type ([facility]) Chest pain due to CAD ([facility]) Primary hypertension ([facility]) Unspecified essential hypertension Paroxysmal atrial fibrillation ([facility]) Atrial fibrillation Chronic diastolic heart failure ([facility]) Chronic diastolic heart failure Other headache syndrome Morbid obesity ([facility]) Morbid obesity Morbid obesity with BMI of 50.0-59.9, adult ([facility]) documented in this encounter [facility] Healthcare[facility]* Diagnosis Bilateral lower extremity edema- Primary Primary hypertension ([facility]) Unspecified essential hypertension Paroxysmal atrial fibrillation ([facility]) Atrial fibrillation Morbid obesity with BMI of 50.0-59.9, adult ([facility]) Bilateral lower leg cellulitis Chronic obstructive pulmonary disease, unspecified COPD type ([facility]) Bilateral lower extremity edema- Primary Acute cough Paroxysmal atrial fibrillation ([facility]) Atrial fibrillation Other emphysema ([facility]) Other emphysema Morbid obesity with BMI of 50.0-59.9, adult ([facility]) Bilateral lower leg cellulitis Primary hypertension ([facility])- Primary Unspecified essential hypertension Morbid obesity with BMI of 50.0-59.9, adult ([facility]) History of tobacco use Personal history of tobacco use, presenting hazards to health Pulmonary emphysema, unspecified emphysema type ([facility]) Paroxysmal atrial fibrillation ([facility]) Atrial fibrillation Bilateral lower extremity edema Hypoxia Hypoxemia Pneumonia of both lungs due to infectious organism, unspecified part of lung Acute cough Screening for prostate cancer- Primary Special screening for malignant neoplasm of prostate Mixed hyperlipidemia (CMS/HCC) Mixed hyperlipidemia Primary hypertension (CMS/HCC) Unspecified essential hypertension Pre-diabetes Other abnormal glucose Morbid obesity with BMI of 50.0-59.9, adult ([facility]) Hypoxia Hypoxemia Pulmonary emphysema, unspecified emphysema type (CMS/HCC) Bilateral lower extremity edema CATERINA (obstructive sleep apnea) Obstructive sleep apnea (adult) (pediatric) Venous insufficiency of both lower extremities Atrial fibrillation, unspecified type (CMS/HCC) Pulmonary emphysema, unspecified emphysema type (CMS/HCC)- Primary Venous insufficiency of both lower extremities Primary hypertension (CMS/HCC) Unspecified essential hypertension Bilateral lower extremity edema Morbid obesity with BMI of 50.0-59.9, adult ([facility]) Pre-diabetes Other abnormal glucose Rising PSA level Paroxysmal atrial fibrillation (I48.0) Atrial fibrillation Pulmonary emphysema, unspecified emphysema type (CMS/HCC)- Primary Atrial fibrillation, unspecified type ([facility]) Paroxysmal atrial fibrillation ([facility]) Atrial fibrillation CATERINA (obstructive sleep apnea) Obstructive sleep apnea (adult) (pediatric) Primary hypertension (CMS/HCC) Unspecified essential hypertension Morbid obesity with BMI of 50.0-59.9, adult ([facility]) Chronic obstructive pulmonary disease, unspecified COPD type (CMS/HCC) Pre-diabetes- Primary Other abnormal glucose Other thrombophilia (CMS/HCC) CATERINA (obstructive sleep apnea) Obstructive sleep apnea (adult) (pediatric) Pulmonary emphysema, unspecified emphysema type (CMS/HCC) Venous insufficiency of both lower extremities Primary hypertension ([facility]) Unspecified essential hypertension Paroxysmal atrial fibrillation ([facility]) Atrial fibrillation Coronary artery disease involving [place] coronary artery of [place] heart without angina pectoris ([facility]) Bilateral lower extremity edema Morbid obesity with BMI of 50.0-59.9, adult ([facility]) Rising PSA level Pre-diabetes- Primary Other abnormal glucose Other emphysema (CMS/HCC) Other emphysema Atrial fibrillation, unspecified type (CMS/HCC) Hyperlipidemia, unspecified (CMS/HCC) Chronic obstructive pulmonary disease, unspecified COPD type (CMS/HCC) Chest pain due to CAD ([facility]) Primary hypertension ([facility]) Unspecified essential hypertension Paroxysmal atrial fibrillation ([facility]) Atrial fibrillation Chronic diastolic heart failure ([facility]) Chronic diastolic heart failure Other headache syndrome Morbid obesity ([facility]/HCC) Morbid obesity Morbid obesity with BMI of 50.0-59.9, adult ([facility]) Environmental and seasonal allergies- Primary Severe persistent asthma, uncomplicated ([facility]) Morbid obesity with BMI of 50.0-59.9, adult ([facility]) Pulmonary emphysema, unspecified emphysema type ([facility]) Primary hypertension ([facility]) Unspecified essential hypertension Paroxysmal atrial fibrillation ([facility]) Atrial fibrillation documented in this encounter [facility] Healthcare[facility]* Diagnosis Bilateral lower extremity edema- Primary Primary hypertension ([facility]) Unspecified essential hypertension Paroxysmal atrial fibrillation ([facility]) Atrial fibrillation Morbid obesity with BMI of 50.0-59.9, adult ([facility]) Bilateral lower leg cellulitis Chronic obstructive pulmonary disease, unspecified COPD type ([facility]) Bilateral lower extremity edema- Primary Acute cough Paroxysmal atrial fibrillation ([facility]) Atrial fibrillation Other emphysema ([facility]) Other emphysema Morbid obesity with BMI of 50.0-59.9, adult ([facility]) Bilateral lower leg cellulitis Primary hypertension ([facility])- Primary Unspecified essential hypertension Morbid obesity with BMI of 50.0-59.9, adult ([facility]) History of tobacco use Personal history of tobacco use, presenting hazards to health Pulmonary emphysema, unspecified emphysema type ([facility]) Paroxysmal atrial fibrillation ([facility]) Atrial fibrillation Bilateral lower extremity edema Hypoxia Hypoxemia Pneumonia of both lungs due to infectious organism, unspecified part of lung Acute cough Screening for prostate cancer- Primary Special screening for malignant neoplasm of prostate Mixed hyperlipidemia ([facility]) Mixed hyperlipidemia Primary hypertension ([facility]) Unspecified essential hypertension Pre-diabetes Other abnormal glucose Morbid obesity with BMI of 50.0-59.9, adult ([facility]) Hypoxia Hypoxemia Pulmonary emphysema, unspecified emphysema type ([facility]) Bilateral lower extremity edema CATERINA (obstructive sleep apnea) Obstructive sleep apnea (adult) (pediatric) Venous insufficiency of both lower extremities Atrial fibrillation, unspecified type ([facility]) Pulmonary emphysema, unspecified emphysema type ([facility])- Primary Venous insufficiency of both lower extremities Primary hypertension ([facility]) Unspecified essential hypertension Bilateral lower extremity edema Morbid obesity with BMI of 50.0-59.9, adult ([facility]) Pre-diabetes Other abnormal glucose Rising PSA level Paroxysmal atrial fibrillation (I48.0) Atrial fibrillation Pulmonary emphysema, unspecified emphysema type ([facility])- Primary Atrial fibrillation, unspecified type ([facility]) Paroxysmal atrial fibrillation ([facility]) Atrial fibrillation CATERINA (obstructive sleep apnea) Obstructive sleep apnea (adult) (pediatric) Primary hypertension ([facility]) Unspecified essential hypertension Morbid obesity with BMI of 50.0-59.9, adult ([facility]) Chronic obstructive pulmonary disease, unspecified COPD type ([facility]) Pre-diabetes- Primary Other abnormal glucose Other thrombophilia ([facility]) CATERINA (obstructive sleep apnea) Obstructive sleep apnea (adult) (pediatric) Pulmonary emphysema, unspecified emphysema type ([facility]) Venous insufficiency of both lower extremities Primary hypertension ([facility]) Unspecified essential hypertension Paroxysmal atrial fibrillation ([facility]) Atrial fibrillation Coronary artery disease involving [place] coronary artery of [place] heart without angina pectoris ([facility]) Bilateral lower extremity edema Morbid obesity with BMI of 50.0-59.9, adult ([facility]) Rising PSA level Pre-diabetes- Primary Other abnormal glucose Other emphysema ([facility]) Other emphysema Atrial fibrillation, unspecified type ([facility]) Hyperlipidemia, unspecified ([facility]) Chronic obstructive pulmonary disease, unspecified COPD type ([facility]) Chest pain due to CAD ([facility]) Primary hypertension ([facility]) Unspecified essential hypertension Paroxysmal atrial fibrillation ([facility]) Atrial fibrillation Chronic diastolic heart failure ([facility]) Chronic diastolic heart failure Other headache syndrome Morbid obesity ([facility]) Morbid obesity Morbid obesity with BMI of 50.0-59.9, adult ([facility]) Environmental and seasonal allergies- Primary Severe persistent asthma, uncomplicated ([facility]) Morbid obesity with BMI of 50.0-59.9, adult ([facility]) Pulmonary emphysema, unspecified emphysema type ([facility]) Encounter for subsequent annual wellness visit (AWV) in Medicare patient- Primary Chronic obstructive pulmonary disease, unspecified ([facility]) Chronic diastolic (congestive) heart failure ([facility]) Emphysema, unspecified ([facility]) Paroxysmal atrial fibrillation ([facility]) Atrial fibrillation Morbid (severe) obesity due to excess calories ([facility]) Body mass index (BMI) 50.0-59.9, adult ([facility]) CATERINA (obstructive sleep apnea) Obstructive sleep apnea (adult) (pediatric) Coronary artery disease involving [place] coronary artery of [place] heart without angina pectoris (CMS/HCC) Primary hypertension ([facility]) Unspecified essential hypertension Bilateral lower extremity edema Class 3 severe obesity due to excess calories with serious comorbidity and body mass index (BMI) of 50.0 to 59.9 in adult ([facility]) Pre-diabetes Other abnormal glucose Mixed hyperlipidemia (CMS/HCC) Mixed hyperlipidemia Upper respiratory tract infection, unspecified type documented in this encounter [facility] HealthcareEvaluation note* Diagnosis Chronic diastolic heart failure ([facility]) Chronic diastolic heart failure Coronary artery disease involving [place] coronary artery of [place] heart without angina pectoris Persistent atrial fibrillation ([facility]) Atrial fibrillation documented in this encounter [facility] SystemEvaluation note* Diagnosis Bilateral lower extremity edema- Primary Primary hypertension ([facility]) Unspecified essential hypertension Paroxysmal atrial fibrillation ([facility]) Atrial fibrillation Morbid obesity with BMI of 50.0-59.9, adult ([facility]) Bilateral lower leg cellulitis Chronic obstructive pulmonary disease, unspecified COPD type ([facility]) Bilateral lower extremity edema- Primary Acute cough Paroxysmal atrial fibrillation ([facility]) Atrial fibrillation Other emphysema ([facility]) Other emphysema Morbid obesity with BMI of 50.0-59.9, adult ([facility]) Bilateral lower leg cellulitis Primary hypertension ([facility])- Primary Unspecified essential hypertension Morbid obesity with BMI of 50.0-59.9, adult ([facility]) History of tobacco use Personal history of tobacco use, presenting hazards to health Pulmonary emphysema, unspecified emphysema type ([facility]) Paroxysmal atrial fibrillation ([facility]) Atrial fibrillation Bilateral lower extremity edema Hypoxia Hypoxemia Pneumonia of both lungs due to infectious organism, unspecified part of lung Acute cough Screening for prostate cancer- Primary Special screening for malignant neoplasm of prostate Mixed hyperlipidemia ([facility]) Mixed hyperlipidemia Primary hypertension ([facility]) Unspecified essential hypertension Pre-diabetes Other abnormal glucose Morbid obesity with BMI of 50.0-59.9, adult ([facility]) Hypoxia Hypoxemia Pulmonary emphysema, unspecified emphysema type (CMS/HCC) Bilateral lower extremity edema CATERINA (obstructive sleep apnea) Obstructive sleep apnea (adult) (pediatric) Venous insufficiency of both lower extremities Atrial fibrillation, unspecified type ([facility]) Pulmonary emphysema, unspecified emphysema type ([facility]/HCC)- Primary Venous insufficiency of both lower extremities Primary hypertension ([facility]) Unspecified essential hypertension Bilateral lower extremity edema Morbid obesity with BMI of 50.0-59.9, adult ([facility]) Pre-diabetes Other abnormal glucose Rising PSA level Paroxysmal atrial fibrillation (I48.0) Atrial fibrillation Pulmonary emphysema, unspecified emphysema type ([facility])- Primary Atrial fibrillation, unspecified type ([facility]) Paroxysmal atrial fibrillation ([facility]) Atrial fibrillation CAT[place]INA (obstructive sleep apnea) Obstructive sleep apnea (adult) (pediatric) Primary hypertension ([facility]) Unspecified essential hypertension Morbid obesity with BMI of 50.0-59.9, adult ([facility]) Chronic obstructive pulmonary disease, unspecified COPD type ([facility]) Pre-diabetes- Primary Other abnormal glucose Other thrombophilia ([facility]) CATERINA (obstructive sleep apnea) Obstructive sleep apnea (adult) (pediatric) Pulmonary emphysema, unspecified emphysema type ([facility]) Venous insufficiency of both lower extremities Primary hypertension ([facility]) Unspecified essential hypertension Paroxysmal atrial fibrillation ([facility]) Atrial fibrillation Coronary artery disease involving [place] coronary artery of [place] heart without angina pectoris ([facility]) Bilateral lower extremity edema Morbid obesity with BMI of 50.0-59.9, adult ([facility]) Rising PSA level Pre-diabetes- Primary Other abnormal glucose Other emphysema ([facility]) Other emphysema Atrial fibrillation, unspecified type ([facility]) Hyperlipidemia, unspecified ([facility]) Chronic obstructive pulmonary disease, unspecified COPD type ([facility]) Chest pain due to CAD ([facility]) Primary hypertension ([facility]) Unspecified essential hypertension Paroxysmal atrial fibrillation ([facility]) Atrial fibrillation Chronic diastolic heart failure ([facility]) Chronic diastolic heart failure Other headache syndrome Morbid obesity ([facility]) Morbid obesity Morbid obesity with BMI of 50.0-59.9, adult ([facility]) Environmental and seasonal allergies- Primary Severe persistent asthma, uncomplicated ([facility]) Morbid obesity with BMI of 50.0-59.9, adult ([facility]) Pulmonary emphysema, unspecified emphysema type ([facility]) Encounter for subsequent annual wellness visit (AWV) in Medicare patient- Primary Chronic obstructive pulmonary disease, unspecified ([facility]) Chronic diastolic (congestive) heart failure ([facility]) Emphysema, unspecified ([facility]) Paroxysmal atrial fibrillation ([facility]) Atrial fibrillation Morbid (severe) obesity due to excess calories ([facility]) Body mass index (BMI) 50.0-59.9, adult ([facility]) CATERINA (obstructive sleep apnea) Obstructive sleep apnea (adult) (pediatric) Coronary artery disease involving [place] coronary artery of [place] heart without angina pectoris (CMS/HCC) Primary hypertension ([facility]) Unspecified essential hypertension Bilateral lower extremity edema Class 3 severe obesity due to excess calories with serious comorbidity and body mass index (BMI) of 50.0 to 59.9 in adult ([facility]) Pre-diabetes Other abnormal glucose Mixed hyperlipidemia (CMS/HCC) Mixed hyperlipidemia Upper respiratory tract infection, unspecified type Primary hypertension (CMS/HCC) Unspecified essential hypertension Paroxysmal atrial fibrillation (CMS/HCC) Atrial fibrillation Chronic obstructive pulmonary disease, unspecified COPD type ([facility]) [facility] Chronic obstructive pulmonary disease, unspecified COPD type ([facility])- Primary CATERINA treated with BiPAP Pulmonary nodule Other diseases of lung, not elsewhere classified Restrictive pattern present on pulmonary function testing History of tobacco use Personal history of tobacco use, presenting hazards to health documented in this encounter [facility] SystemEvaluation note* Diagnosis Chronic diastolic heart failure ([facility])- Primary Chronic diastolic heart failure documented in this encounter [facility] SystemEvaluation note* Diagnosis CATERINA treated with BiPAP- Primary documented in this encounter [facility] SystemEvaluation note* Diagnosis Chronic diastolic heart failure (CMS-HCC) Chronic diastolic heart failure Coronary artery disease involving [place] coronary artery of [place] heart without angina pectoris Persistent atrial fibrillation ([facility]) Atrial fibrillation documented in this encounter [facility] SystemEvaluation note* Diagnosis Atrial fibrillation, unspecified type ([facility])- Primary History of coronary angioplasty with insertion of stent History of tobacco use Personal history of tobacco use, presenting hazards to health Primary hypertension Unspecified essential hypertension Paroxysmal atrial fibrillation (CMS-HCC) Atrial fibrillation Bilateral lower extremity edema Heart failure with preserved ejection fraction, unspecified HF chronicity ([facility]) documented in this encounter [facility] SystemEvaluation note* Diagnosis Chronic diastolic heart failure (CMS-HCC)- Primary Chronic diastolic heart failure Coronary artery disease involving [place] coronary artery of [place] heart without angina pectoris Persistent atrial fibrillation (CMS-HCC) Atrial fibrillation documented in this encounter [facility] SystemEvaluation note* Diagnosis Chronic diastolic heart failure (CMS-HCC)- Primary Chronic diastolic heart failure Persistent atrial fibrillation ([facility]) Atrial fibrillation Coronary artery disease involving [place] coronary artery of [place] heart without angina pectoris Primary hypertension Unspecified essential hypertension documented in this encounter [facility] SystemEvaluation note* Diagnosis Chronic diastolic heart failure ([facility]) Chronic diastolic heart failure Coronary artery disease involving [place] coronary artery of [place] heart without angina pectoris Persistent atrial fibrillation ([facility]) Atrial fibrillation documented in this encounter [facility] SystemEvaluation note* Diagnosis Chronic diastolic heart failure ([facility]) Chronic diastolic heart failure Coronary artery disease involving [place] coronary artery of [place] heart without angina pectoris Persistent atrial fibrillation ([facility]) Atrial fibrillation documented in this encounter [facility] SystemEvaluation note* Diagnosis Bilateral lower extremity edema- Primary Primary hypertension ([facility]) Unspecified essential hypertension Paroxysmal atrial fibrillation ([facility]) Atrial fibrillation Morbid obesity with BMI of 50.0-59.9, adult ([facility]) Bilateral lower leg cellulitis Chronic obstructive pulmonary disease, unspecified COPD type ([facility]) Bilateral lower extremity edema- Primary Acute cough Paroxysmal atrial fibrillation ([facility]) Atrial fibrillation Other emphysema ([facility]) Other emphysema Morbid obesity with BMI of 50.0-59.9, adult ([facility]) Bilateral lower leg cellulitis Primary hypertension ([facility])- Primary Unspecified essential hypertension Morbid obesity with BMI of 50.0-59.9, adult ([facility]) History of tobacco use Personal history of tobacco use, presenting hazards to health Pulmonary emphysema, unspecified emphysema type ([facility]) Paroxysmal atrial fibrillation ([facility]) Atrial fibrillation Bilateral lower extremity edema Hypoxia Hypoxemia Pneumonia of both lungs due to infectious organism, unspecified part of lung Acute cough Screening for prostate cancer- Primary Special screening for malignant neoplasm of prostate Mixed hyperlipidemia ([facility]) Mixed hyperlipidemia Primary hypertension ([facility]) Unspecified essential hypertension Pre-diabetes Other abnormal glucose Morbid obesity with BMI of 50.0-59.9, adult ([facility]) Hypoxia Hypoxemia Pulmonary emphysema, unspecified emphysema type ([facility]) Bilateral lower extremity edema CAT[place] (obstructive sleep apnea) Obstructive sleep apnea (adult) (pediatric) Venous insufficiency of both lower extremities Atrial fibrillation, unspecified type ([facility]) Pulmonary emphysema, unspecified emphysema type ([facility]/HCC)- Primary Venous insufficiency of both lower extremities Primary hypertension ([facility]) Unspecified essential hypertension Bilateral lower extremity edema Morbid obesity with BMI of 50.0-59.9, adult ([facility]) Pre-diabetes Other abnormal glucose Rising PSA level Paroxysmal atrial fibrillation (I48.0) Atrial fibrillation Pulmonary emphysema, unspecified emphysema type ([facility])- Primary Atrial fibrillation, unspecified type ([facility]) Paroxysmal atrial fibrillation ([facility]) Atrial fibrillation CAT[place]INA (obstructive sleep apnea) Obstructive sleep apnea (adult) (pediatric) Primary hypertension ([facility]) Unspecified essential hypertension Morbid obesity with BMI of 50.0-59.9, adult ([facility]) Chronic obstructive pulmonary disease, unspecified COPD type ([facility]) Pre-diabetes- Primary Other abnormal glucose Other thrombophilia CAT[place]INA (obstructive sleep apnea) Obstructive sleep apnea (adult) (pediatric) Pulmonary emphysema, unspecified emphysema type ([facility]) Venous insufficiency of both lower extremities Primary hypertension ([facility]) Unspecified essential hypertension Paroxysmal atrial fibrillation ([facility]) Atrial fibrillation Coronary artery disease involving [place] coronary artery of [place] heart without angina pectoris ([facility]) Bilateral lower extremity edema Morbid obesity with BMI of 50.0-59.9, adult ([facility]) Rising PSA level Pre-diabetes- Primary Other abnormal glucose Other emphysema ([facility]) Other emphysema Atrial fibrillation, unspecified type ([facility]) Hyperlipidemia, unspecified ([facility]) Chronic obstructive pulmonary disease, unspecified COPD type ([facility]) Chest pain due to CAD ([facility]) Primary hypertension ([facility]) Unspecified essential hypertension Paroxysmal atrial fibrillation ([facility]) Atrial fibrillation Chronic diastolic heart failure ([facility]) Chronic diastolic heart failure Other headache syndrome Morbid obesity ([facility]) Morbid obesity Morbid obesity with BMI of 50.0-59.9, adult ([facility]) Environmental and seasonal allergies- Primary Severe persistent asthma, uncomplicated ([facility]) Morbid obesity with BMI of 50.0-59.9, adult ([facility]) Pulmonary emphysema, unspecified emphysema type ([facility]) Encounter for subsequent annual wellness visit (AWV) in Medicare patient- Primary Chronic obstructive pulmonary disease, unspecified Chronic diastolic (congestive) heart failure Emphysema, unspecified Paroxysmal atrial fibrillation ([facility]) Atrial fibrillation Morbid (severe) obesity due to excess calories ([facility]) Body mass index (BMI) 50.0-59.9, adult ([facility]) CATERINA (obstructive sleep apnea) Obstructive sleep apnea (adult) (pediatric) Coronary artery disease involving [place] coronary artery of [place] heart without angina pectoris (CMS/HCC) Primary hypertension (CMS/HCC) Unspecified essential hypertension Bilateral lower extremity edema Class 3 severe obesity due to excess calories with serious comorbidity and body mass index (BMI) of 50.0 to 59.9 in adult Pre-diabetes Other abnormal glucose Mixed hyperlipidemia (CMS/HCC) Mixed hyperlipidemia Upper respiratory tract infection, unspecified type Primary hypertension (CMS/HCC)- Primary Unspecified essential hypertension Pulmonary emphysema, unspecified emphysema type (CMS/HCC) Coronary artery disease involving [place] coronary artery of [place] heart without angina pectoris (CMS/HCC) Chronic diastolic (congestive) heart failure Bilateral lower extremity edema Pre-diabetes Other abnormal glucose Mixed hyperlipidemia (CMS/HCC) Mixed hyperlipidemia Rising PSA level Vitamin D deficiency Hyperlipidemia, unspecified (CMS/HCC) Chronic diastolic heart failure (CMS/HCC) Chronic diastolic heart failure Atrial fibrillation, unspecified type (CMS/HCC) Chronic obstructive pulmonary disease, unspecified COPD type (CMS/HCC) CATERINA (obstructive sleep apnea) Obstructive sleep apnea (adult) (pediatric) documented in this encounter [facility] HealthcareEvaluation note* Diagnosis 2-vessel coronary artery disease- Primary Paroxysmal atrial fibrillation (Multi) Atrial fibrillation [place] (myocardial infarction) Old myocardial infarction Poor compliance Essential hypertension Unspecified essential hypertension Morbid obesity with BMI of 50.0-59.9, adult (Multi) Obstructive sleep apnea syndrome Obstructive sleep apnea (adult) (pediatric) Former smoker Personal history of tobacco use, presenting hazards to health documented in this encounter [facility] Work Phone: Evaluation note* Diagnosis Bilateral lower extremity edema- Primary Primary hypertension Unspecified essential hypertension Paroxysmal atrial fibrillation (HCC) Atrial fibrillation Morbid obesity with BMI of 50.0-59.9, adult ([facility]) Bilateral lower leg cellulitis Chronic obstructive pulmonary disease, unspecified COPD type (HCC) Bilateral lower extremity edema- Primary Acute cough Paroxysmal atrial fibrillation (HCC) Atrial fibrillation Other emphysema (HCC) Other emphysema Morbid obesity with BMI of 50.0-59.9, adult (CMS-HCC) Bilateral lower leg cellulitis Primary hypertension- Primary Unspecified essential hypertension Morbid obesity with BMI of 50.0-59.9, adult ([facility]) History of tobacco use Personal history of [...] Morbid obesity with BMI of 50.0-59.9, adult ([facility]) Hypoxia Hypoxemia Pulmonary emphysema, unspecified emphysema type (HCC) Bilateral lower extremity edema CATERINA (obstructive sleep apnea) Obstructive sleep apnea (adult) (pediatric) Venous insufficiency of both lower extremities Atrial fibrillation, unspecified type (HCC) Pulmonary emphysema, unspecified emphysema type (HCC)- Primary Venous insufficiency of both lower extremities Primary hypertension Unspecified essential hypertension Bilateral lower extremity edema Morbid obesity with BMI of 50.0-59.9, adult ([facility]) Pre-diabetes Other abnormal glucose Rising PSA level Paroxysmal atrial fibrillation (I48.0) Atrial fibrillation Pulmonary emphysema, unspecified emphysema type (HCC)- Primary Atrial fibrillation, unspecified type (HCC) Paroxysmal atrial fibrillation (HCC) Atrial fibrillation CATERINA (obstructive sleep apnea) Obstructive sleep apnea (adult) (pediatric) Primary hypertension Unspecified essential hypertension Morbid obesity with BMI of 50.0-59.9, adult ([facility]) Chronic obstructive pulmonary disease, unspecified COPD type ([facility]) Pre-diabetes- Primary Other abnormal glucose Other thrombophilia ([facility]) CATERINA (obstructive sleep apnea) Obstructive sleep apnea (adult) (pediatric) Pulmonary emphysema, unspecified emphysema type (HCC) Venous insufficiency of both lower extremities Primary hypertension Unspecified essential hypertension Paroxysmal atrial fibrillation (HCC) Atrial fibrillation Coronary artery disease involving [place] coronary artery of [place] heart without angina pectoris Bilateral lower extremity edema Morbid obesity with BMI of 50.0-59.9, adult ([facility]) Rising PSA level Pre-diabetes- Primary Other abnormal glucose Other emphysema (HCC) Other emphysema Atrial fibrillation, unspecified type (HCC) Hyperlipidemia, unspecified Chronic obstructive pulmonary disease, unspecified COPD type ([facility]) Chest pain due to CAD Primary hypertension Unspecified essential hypertension Paroxysmal atrial fibrillation (HCC) Atrial fibrillation Chronic diastolic heart failure ([facility]) Chronic diastolic heart failure Other headache syndrome Morbid obesity ([facility]) Morbid obesity Morbid obesity with BMI of 50.0-59.9, adult ([facility]) Environmental and seasonal allergies- Primary Severe persistent asthma, uncomplicated ([facility]) Morbid obesity with BMI of 50.0-59.9, adult ([facility]) Pulmonary emphysema, unspecified emphysema type (HCC) Encounter for subsequent annual wellness visit (AWV) in Medicare patient- Primary Chronic obstructive pulmonary disease, unspecified (HCC) Chronic diastolic (congestive) heart failure (HCC) Emphysema, unspecified (HCC) Paroxysmal atrial fibrillation (HCC) Atrial fibrillation Morbid (severe) obesity due to excess calories ([facility]) Body mass index (BMI) 50.0-59.9, adult ([facility]) CATERINA (obstructive sleep apnea) Obstructive sleep apnea (adult) (pediatric) Coronary artery disease involving [place] coronary artery of [place] heart without angina pectoris Primary hypertension Unspecified essential hypertension Bilateral lower extremity edema Class 3 severe obesity due to excess calories with serious comorbidity and body mass index (BMI) of 50.0 to 59.9 in adult ([facility]) Pre-diabetes Other abnormal glucose Mixed hyperlipidemia Mixed hyperlipidemia Upper respiratory tract infection, unspecified type Primary hypertension- Primary Unspecified essential hypertension Pulmonary emphysema, unspecified emphysema type (HCC) Coronary artery disease involving [place] coronary artery of [place] heart without angina pectoris Chronic diastolic (congestive) heart failure (HCC) Bilateral lower extremity edema Pre-diabetes Other abnormal glucose Mixed hyperlipidemia Mixed hyperlipidemia Rising PSA level Vitamin D deficiency Hyperlipidemia, unspecified Chronic diastolic heart failure (HCC) Chronic diastolic heart failure Atrial fibrillation, unspecified type (HCC) Chronic obstructive pulmonary disease, unspecified COPD type ([facility]) CATERINA (obstructive sleep apnea) Obstructive sleep apnea (adult) (pediatric) Paroxysmal atrial fibrillation (HCC) Atrial fibrillation documented in this encounter [facility] HealthcareEvaluation note* Diagnosis Bilateral lower extremity edema- Primary Primary hypertension Unspecified essential hypertension Paroxysmal atrial fibrillation (HCC) Atrial fibrillation Morbid obesity with BMI of 50.0-59.9, adult ([facility]) Bilateral lower leg cellulitis Chronic obstructive pulmonary disease, unspecified COPD type (HCC) Bilateral lower extremity edema- Primary Acute cough Paroxysmal atrial fibrillation (HCC) Atrial fibrillation Other emphysema (HCC) Other emphysema Morbid obesity with BMI of 50.0-59.9, adult ([facility]) Bilateral lower leg cellulitis Primary hypertension- Primary Unspecified essential hypertension Morbid obesity with BMI of 50.0-59.9, adult ([facility]) History of tobacco use Personal history of tobacco use, presenting hazards to [facility] Pulmonary emphysema, unspecified emphysema type (HCC) Paroxysmal [...] Morbid obesity with BMI of 50.0-59.9, adult ([facility]) Hypoxia Hypoxemia Pulmonary emphysema, unspecified emphysema type (HCC) Bilateral lower extremity edema CATERINA (obstructive sleep apnea) Obstructive sleep apnea (adult) (pediatric) Venous insufficiency of both lower extremities Atrial fibrillation, unspecified type (HCC) Pulmonary emphysema, unspecified emphysema type (HCC)- Primary Venous insufficiency of both lower extremities Primary hypertension Unspecified essential hypertension Bilateral lower extremity edema Morbid obesity with BMI of 50.0-59.9, adult ([facility]) Pre-diabetes Other abnormal glucose Rising PSA level Paroxysmal atrial fibrillation (I48.0) Atrial fibrillation Pulmonary emphysema, unspecified emphysema type (HCC)- Primary Atrial fibrillation, unspecified type (HCC) Paroxysmal atrial fibrillation (HCC) Atrial fibrillation CATERINA (obstructive sleep apnea) Obstructive sleep apnea (adult) (pediatric) Primary hypertension Unspecified essential hypertension Morbid obesity with BMI of 50.0-59.9, adult ([facility]) Chronic obstructive pulmonary disease, unspecified COPD type ([facility]) Pre-diabetes- Primary Other abnormal glucose Other thrombophilia ([facility]) CATERINA (obstructive sleep apnea) Obstructive sleep apnea (adult) (pediatric) Pulmonary emphysema, unspecified emphysema type ([facility]) Venous insufficiency of both lower extremities Primary hypertension Unspecified essential hypertension Paroxysmal atrial fibrillation (HCC) Atrial fibrillation Coronary artery disease involving [place] coronary artery of [place] heart without angina pectoris Bilateral lower extremity edema Morbid obesity with BMI of 50.0-59.9, adult ([facility]) Rising PSA level Pre-diabetes- Primary Other abnormal glucose Other emphysema (HCC) Other emphysema Atrial fibrillation, unspecified type ([facility]) Hyperlipidemia, unspecified Chronic obstructive pulmonary disease, unspecified COPD type ([facility]) Chest pain due to CAD Primary hypertension Unspecified essential hypertension Paroxysmal atrial fibrillation (HCC) Atrial fibrillation Chronic diastolic heart failure (HCC) Chronic diastolic heart failure Other headache syndrome Morbid obesity ([facility]) Morbid obesity Morbid obesity with BMI of 50.0-59.9, adult ([facility]) Environmental and seasonal allergies- Primary Severe persistent asthma, uncomplicated ([facility]) Morbid obesity with BMI of 50.0-59.9, adult ([facility]) Pulmonary emphysema, unspecified emphysema type ([facility]) Encounter for subsequent annual wellness visit (AWV) in Medicare patient- Primary Chronic obstructive pulmonary disease, unspecified (HCC) Chronic diastolic (congestive) heart failure (HCC) Emphysema, unspecified (HCC) Paroxysmal atrial fibrillation (HCC) Atrial fibrillation Morbid (severe) obesity due to excess calories ([facility]) Body mass index (BMI) 50.0-59.9, adult ([facility]) CATERINA (obstructive sleep apnea) Obstructive sleep apnea (adult) (pediatric) Coronary artery disease involving [place] coronary artery of [place] heart without angina pectoris Primary hypertension Unspecified essential hypertension Bilateral lower extremity edema Class 3 severe obesity due to excess calories with serious comorbidity and body mass index (BMI) of 50.0 to 59.9 in adult ([facility]) Pre-diabetes Other abnormal glucose Mixed hyperlipidemia Mixed hyperlipidemia Upper respiratory tract infection, unspecified type Primary hypertension- Primary Unspecified essential hypertension Pulmonary emphysema, unspecified emphysema type (HCC) Coronary artery disease involving [place] coronary artery of [place] heart without angina pectoris Chronic diastolic (congestive) [...] heart failure (HCC) Coronary artery disease involving [place] coronary artery of [place] heart without angina pectoris Paroxysmal atrial fibrillation (HCC) Atrial fibrillation Bilateral lower extremity edema Class 3 severe obesity due to excess calories with serious comorbidity and body mass index (BMI) of 50.0 to 59.9 in adult ([facility]) Pre-diabetes Other abnormal glucose Thyroid nodule Nontoxic uninodular goiter Pulmonary emphysema, unspecified emphysema type (HCC) Moderate persistent asthma without complication (HCC) Hyperlipidemia, unspecified Chronic diastolic heart failure (HCC) Chronic diastolic heart failure Atrial fibrillation, unspecified type (HCC) documented in this encounter [facility] HealthcareEvaluation note* Diagnosis Chronic obstructive pulmonary disease, unspecified COPD type ([facility])- Primary [facility] Diagnosis Bilateral lower extremity edema- Primary Primary hypertension Unspecified essential hypertension Paroxysmal atrial fibrillation (HCC) Atrial fibrillation Morbid obesity with BMI of 50.0-59.9, adult ([facility]) Bilateral lower leg cellulitis Chronic obstructive pulmonary disease, unspecified COPD type ([facility]) Bilateral lower extremity edema- Primary Acute cough Paroxysmal atrial fibrillation (HCC) Atrial fibrillation Other emphysema (HCC) Other emphysema Morbid obesity with BMI of 50.0-59.9, adult ([facility]) Bilateral lower leg cellulitis Primary hypertension- Primary Unspecified essential hypertension Morbid obesity with BMI of 50.0-59.9, adult ([facility]) History of tobacco use Personal history of tobacco use, presenting hazards to [facility] Pulmonary emphysema, unspecified emphysema type (HCC) Paroxysmal [...] Morbid obesity with BMI of 50.0-59.9, adult ([facility]) Hypoxia Hypoxemia Pulmonary emphysema, unspecified emphysema type ([facility]) Bilateral lower extremity edema CATERINA (obstructive sleep apnea) Obstructive sleep apnea (adult) (pediatric) Venous insufficiency of both lower extremities Atrial fibrillation, unspecified type (HCC) Pulmonary emphysema, unspecified emphysema type (HCC)- Primary Venous insufficiency of both lower extremities Primary hypertension Unspecified essential hypertension Bilateral lower extremity edema Morbid obesity with BMI of 50.0-59.9, adult ([facility]) Pre-diabetes Other abnormal glucose Rising PSA level Paroxysmal atrial fibrillation (I48.0) Atrial fibrillation Pulmonary emphysema, unspecified emphysema type (HCC)- Primary Atrial fibrillation, unspecified type (HCC) Paroxysmal atrial fibrillation (HCC) Atrial fibrillation CATERINA (obstructive sleep apnea) Obstructive sleep apnea (adult) (pediatric) Primary hypertension Unspecified essential hypertension Morbid obesity with BMI of 50.0-59.9, adult ([facility]) Chronic obstructive pulmonary disease, unspecified COPD type (HCC) Pre-diabetes- Primary Other abnormal glucose Other thrombophilia ([facility]) CATERINA (obstructive sleep apnea) Obstructive sleep apnea (adult) (pediatric) Pulmonary emphysema, unspecified emphysema type (HCC) Venous insufficiency of both lower extremities Primary hypertension Unspecified essential hypertension Paroxysmal atrial fibrillation (HCC) Atrial fibrillation Coronary artery disease involving [place] coronary artery of [place] heart without angina pectoris Bilateral lower extremity edema Morbid obesity with BMI of 50.0-59.9, adult ([facility]) Rising PSA level Pre-diabetes- Primary Other abnormal glucose Other emphysema (HCC) Other emphysema Atrial fibrillation, unspecified type ([facility]) Hyperlipidemia, unspecified Chronic obstructive pulmonary disease, unspecified COPD type (HCC) Chest pain due to CAD Primary hypertension Unspecified essential hypertension Paroxysmal atrial fibrillation (HCC) Atrial fibrillation Chronic diastolic heart failure (HCC) Chronic diastolic heart failure Other headache syndrome Morbid obesity ([facility]) Morbid obesity Morbid obesity with BMI of 50.0-59.9, adult ([facility]) Environmental and seasonal allergies- Primary Severe persistent asthma, uncomplicated ([facility]) Morbid obesity with BMI of 50.0-59.9, adult ([facility]) Pulmonary emphysema, unspecified emphysema type ([facility]) Encounter for subsequent annual wellness visit (AWV) in Medicare patient- Primary Chronic obstructive pulmonary disease, unspecified (HCC) Chronic diastolic (congestive) heart failure (HCC) Emphysema, unspecified (HCC) Paroxysmal atrial fibrillation (HCC) Atrial fibrillation Morbid (severe) obesity due to excess calories ([facility]) Body mass index (BMI) 50.0-59.9, adult ([facility]) CATERINA (obstructive sleep apnea) Obstructive sleep apnea (adult) (pediatric) Coronary artery disease involving [place] coronary artery of [place] heart without angina pectoris Primary hypertension Unspecified essential hypertension Bilateral lower extremity edema Class 3 severe obesity due to excess calories with serious comorbidity and body mass index (BMI) of 50.0 to 59.9 in adult ([facility]) Pre-diabetes Other abnormal glucose Mixed hyperlipidemia Mixed hyperlipidemia Upper respiratory tract infection, unspecified type Primary hypertension- Primary Unspecified essential hypertension Pulmonary emphysema, unspecified emphysema type ([facility]) Coronary artery disease involving [place] coronary artery of [place] heart without angina pectoris Chronic diastolic (congestive) [...] heart failure (HCC) Coronary artery disease involving [place] coronary artery of [place] heart without angina pectoris Paroxysmal atrial fibrillation (HCC) Atrial fibrillation Bilateral lower extremity edema Class 3 severe obesity due to excess calories with serious comorbidity and body mass index (BMI) of 50.0 to 59.9 in adult ([facility]) Pre-diabetes Other abnormal glucose Thyroid nodule Nontoxic uninodular goiter Pulmonary emphysema, unspecified emphysema type (HCC) Moderate persistent asthma without complication (HCC) Hyperlipidemia, unspecified Chronic diastolic heart failure (HCC) Chronic diastolic heart failure Atrial fibrillation, unspecified type (HCC) Bilateral lower leg cellulitis- Primary Venous insufficiency [...] (BMI) of 50.0 to 59.9 in adult ([facility]) documented in [facility] encounter [facility] Healthcare[facility] [...] coronary artery with known occlusion of his [place] circ. He remains active but difficult to [...] stress testing to clear him for surgery. [facility] 600 DO Work Phone: History of Present [...] software was utilized to prepare this document. [facility] 305 DO Work Phone: History of Present [...] software was utilized to prepare this document. [facility] Work Phone: InstructionsNot on filedocumented in this [...] Health SystemInstructionsNot on filedocumented in this encounter [facility] SystemReason for referral (narrative)* Consultation (Routine) - Authorized Specialty Diagnoses / Procedures Referred By Contac t Referred To Contact Cardiology Diagnoses Paroxysmal atrial fibrillation (Multi) Procedures Follow Up In Cardiology Madison Blanco MD [address] [facility], [address] [place] [id number] Madison [facility] MD [address] [facility], [address] [address] Referral ID Status Reason Start Date Expiration Date V isits Requested Visits Authorized [id number] Authorized 10/08/2023 10/07/2024 1 1 [facility] Work Phone: Reason for referral (narrative)* Consultation (Routine) - Pending Review Specialty Diagnoses / Procedures Referred By Fifi t Referred To Contact Heart Failure Services Diagnoses Heart failure with preserved ejection fraction, unspecified HF chronicity ([facility]) Faith Mandujano MD [address] [place] [address] [facility] [address] [place] [address] Referral ID Status Reason Start Date Expiration Date V isits Requested Visits Authorized [id number] Pending Review 07/26/2023 07/25/2024 1 1 * Consultation (Routine) - Pending Review Specialty Diagnoses / Procedures Referred By Contac t Referred To Contact Cardiology Diagnoses Atrial fibrillation, unspecified type ([facility]-HCC) Faith Mandujano MD [address] [place] [address] Juan Jose Lee MD [address] [place] [address] [place] [address] Referral ID Status Reason Start Date Expiration Date Visits Requested Visits Authorized [id number] Pending Review Specialty Services Required 07/26/2023 07/25/2024 1 1 [facility] Summary Purpose Family History No Family History [...] Referral Specialty Diagnoses / Procedures Referred By Contmallory t Referred To Contact Diagnoses Chronic obstructive pulmonary disease, unspecified COPD type ([facility]-HCC) CATER[place] treated with BiPAP Restrictive pattern present on pulmonary function testing Procedures Nocturnal Pulse Oximetry Lisa Cervantes DO [address] [place] [address] Referral ID Status Reason Start Date Expiration Date V isits Requested Visits Authorized [id number] Pending Review 10/25/2023 10/24/2024 1 1 Specialty Diagnoses / Procedures Referred By Contmallory t Referred To Contact Diagnoses CATERINA treated with BiPAP Procedures Polysomnography 4 or more parameters with PAP titration Lisa Cervantes, DO [address] [address] Referral ID Status Reason Start Date Expiration Date V isits Requested Visits Authorized [id number] Pending Review 11/13/2023 11/12/2024 1 1 Additional Source Comments (unrecognized sect ion and content) No Status Records FoundNo Status Records FoundNo Status Records FoundNo Status Records FoundNo Status Records FoundNo Status Records FoundNo Status Records FoundNo Status Records FoundNo Status Records FoundNo Status Records Found INFORMATION SOURCE (unrecogn ized section and content) DATE CREATED AUTHOR 12/06/2017 [facility] DATE CREATED AUTHOR AUTHOR'S ORGANIZ ATION 07/20/2022 [facility] DATE CREATED AUTHOR AUTHOR'S ORGANIZ ATION 07/20/2022 [employer] DATE CREATED AUTHOR AUTHOR'S ORGANIZ ATION 10/29/2022 [facility] DATE CREATED AUTHOR AUTHOR'S ORGANIZ ATION 12/23/2022 [facility] DATE CREATED AUTHOR AUTHOR'S ORGANIZ ATION 10/27/2023 [facility] DATE CREATED AUTHOR AUTHOR'S ORGANIZ ATION 11/17/2023 [facility] DATE CREATED AUTHOR AUTHOR'S ORGANIZ ATION 10/22/2024 [facility] DATE CREATED AUTHOR AUTHOR'S ORGANIZ ATION 01/26/2025 [facility] DATE CREATED AUTHOR AUTHOR'S ORGANIZ ATION 02/03/2025 [facility]ists EPIC Reason for Visit [...] 11/14/2023 Pap Order Reason Comments New Patient TRAIN RESERVATION CLERK A FIB STRESS, CXR , CTA, USED TO SEE [facility] Specialty Diagnoses / Procedures Referred By Fifi t Referred To Contact Cardiology Diagnoses Paroxysmal atrial fibrillation ([facility]) Bilateral lower extremity edema Eusebia Terrell, HEAD OF [employer]GR[employer]-K 9 HANDLER/ DEPUTY [address] [place] [address] [facility] [address] [place] [address] Referral ID Status Reason Start Date Expiration Date Visits Requested Visits Authorized [id number] Pending Review Specialty Services Required 06/29/2023 06/28/2024 1 1 Reason Onset Date Comments KCL 08/21/2023 Reason Comments Congestive Heart Failure Specialty Diagnoses / Procedures Referred By Fifi t Referred To Contact Heart Failure Services Diagnoses Heart failure with preserved ejection fraction, unspecified HF chronicity ([facility]) Faith Mandujano MD [address] [place] [address] [facility] [address] [place] [address] Referral ID Status Reason Start Date Expiration Date V isits Requested Visits Authorized [id number] Pending Review 07/26/2023 07/25/2024 1 1 Reason Onset Date Comments overdue lab 05/23/2024 Reason Comments Follow-up 6 month follow up 2- vessel coronary artery disease Specialty Diagnoses / Procedures Referred By Fifi t Referred To Contact Cardiology Diagnoses Paroxysmal atrial fibrillation (Multi) Procedures Follow Up In Cardiology Madison Blanco MD [address] [facility], [address] [place] [address] Phone: tel: fax: Madison Blanco MD [address], [address] [place] [address] Phone: tel: fax: Referral ID Status Reason Start Date Expiration Date V isits Requested Visits Authorized [id number] Authorized 10/08/2023 10/07/2024 1 1 Reason Comments Hypertension Care Teams (unrecognized sec tion and content) Stapler Machine Relationship Specialty Start Date End Date Eusebia Terrell HEAD OF INTEGRATED MEDIA-K 9 HANDLER/ DEPUTY [address] [place] [address] PCP - General 11/04/19 Stapler Machine Relationship Specialty Start Date End Date Mirza Guzmán MD [address] [place] [address] PCP - General Family Medicine 06/05/23 Eusebia Terrell NP [address] [place] [address] Nurse Practitioner Family Medicine 03/18/23 Stapler Machine Relationship Specialty Start Date End Date Mirza Guzmán MD [address] [place] [address] PCP - General Family Medicine 06/05/23 Eusebia Terrell NP [address] [place] [address] Nurse Practitioner Family Medicine 03/18/23 Stapler Machine Relationship Specialty Start Date End Date Eusebia Terrell HEAD OF INTEGRATED MEDIA-K 9 HANDLER/ DEPUTY [address] [place] [address] PCP - General 11/04/19 Justyn Mondragon MD [address] [facility] Medical Office Bldg, [facility] [place], [place] [phone] Central Services Tech Cardiology 07/05/23 Stapler Machine Relationship Specialty Start Date End Date Mirza Guzmán MD [address] [place] [address] PCP - General Family Medicine 08/14/23 Eusebia Terrell TRAIN RESERVATION CLERK [address] [place] [address] Nurse Practitioner Family Medicine 03/18/23 Stapler Machine Relationship Specialty Start Date End Date Unallocated, Coco Gomes MD [address] [facility] [place] [address] PCP - General Family Medicine 04/09/24 Eusebia Terrell, TRAIN RESERVATION CLERK [address] [place] [address] Nurse Practitioner Family Medicine 03/18/23 Stapler Machine Relationship Specialty Start Date End Date Unallocated, Coco Gomes MD [address] [facility] [place] [address] PCP - General Family Medicine 04/09/24 Eusebia Terrell, GENESIS [address] [place] [address] Nurse Practitioner Family Medicine 03/18/23 Stapler Machine Relationship Specialty Start Date End Date Mirza Guzmán MD [address] [place] [address] PCP - General Family Medicine 08/14/23 Eusebia Terrell NP [address] [place] [address] Nurse Practitioner Family Medicine 03/18/23 Stapler Machine Relationship Specialty Start Date End Date Mirza Guzmán MD [address] [place] [address] PCP - General Family Medicine 08/14/23 Eusebia Terrell NP [address] [place] [address] Nurse Practitioner Family Medicine 03/18/23 Stapler Machine Relationship Specialty Start Date End Date Mirza Guzmán MD [address] [place] [address] PCP - General Family Medicine 04/17/24 Eusebia Terrell NP [address] [place] [address] Nurse Practitioner Family Medicine 03/18/23 Stapler Machine Relationship Specialty Start Date End Date Mirza Guzmán MD [address] [place] [address] PCP - General Family Medicine 04/17/24 Eusebia Terrell NP [address] [place] [address] Nurse Practitioner Family Medicine 03/18/23 Stapler Machine Relationship Specialty Start Date End Date Mirza Guzmán MD [address] [place] [address] PCP - General Family Medicine 04/17/24 Eusebia Terrell NP [address] [place] [address] Nurse Practitioner Family Medicine 03/18/23 Stapler Machine Relationship Specialty Start Date End Date Eusebia Terrell [facility] PCP - General Nurse Practitioner 08/20/23 Stapler Machine Relationship Specialty Start Date End Date Eusebia Terrell [facility] [address] [place] [address] PCP - General Nurse Practitioner 08/20/23 Stapler Machine Relationship Specialty Start Date End Date Eusebia Terrell, [facility] [address] [place] [address] PCP - General Nurse Practitioner 08/20/23 Stapler Machine Relationship Specialty Start Date End Date Eusebia Terrell, [facility] [address] [place] [address] PCP - General Nurse Practitioner 08/20/23 Stapler Machine Relationship Specialty Start Date End Date Mirza Guzmán MD [address] [place] [address] PCP - General Family Medicine 04/17/24 Eusebia Terrell NP [address] [place] [address] Nurse Practitioner Family Medicine 03/18/23 Stapler Machine Relationship Specialty Start Date End Date [facility] [address] [place] [address] PCP - General Nurse Practitioner 08/20/23 Stapler Machine Relationship Specialty Start Date End Date [facility]ia [facility] [address] [place] [address] PCP - General Nurse Practitioner 08/20/23 Stapler Machine Relationship Specialty Start Date End Date Eusebia Terrell APRNK 9 HANDLER/ DEPUTY [address] [place] [address] PCP - General Nurse Practitioner 08/20/23 Stapler Machine Relationship Specialty Start Date End Date Gi Kimble [address] [place] [address] PCP - General Physical Therapy 12/31/20 Stapler Machine Relationship Specialty Start Date End Date Eusebia Terrell APRN-CNP [address] [place] [address] PCP - General Nurse Practitioner 08/20/23 Stapler Machine Relationship Specialty Start Date End Date Eusebia Terrell APRN-CNP [address] [place] [address] PCP - General Nurse Practitioner 08/20/23 Stapler Machine Relationship Specialty Start Date End Date Gi Kimble [address] [place] [address] PCP - General Physical Therapy 12/31/20 Stapler Machine Relationship Specialty Start Date End Date [facility]usebia [facility]rell [facility] [address] [place] [address] PCP - General Nurse Practitioner 08/20/23 Stapler Machine Relationship Specialty Start Date End Date Eusebia Terrell [facility] [address] [place] [address] PCP - General Nurse Practitioner 08/20/23 Stapler Machine Relationship Specialty Start Date End Date Eusebia Terrell [facility] [address] [place] [address] PCP - General Nurse Practitioner 08/20/23 Stapler Machine Relationship Specialty Start Date End Date Eusebia Terrell [facility] [address] [place] [address] PCP - General Nurse Practitioner 08/20/23 Stapler Machine Relationship Specialty Start Date End Date Eusebia Terrell [facility] PCP - General Nurse Practitioner 08/20/23 Stapler Machine Relationship Specialty Start Date End Date Eusebia Terrell [facility] PCP - General Nurse Practitioner 08/20/23 Stapler Machine Relationship Specialty Start Date End Date Eusebia Terrell [facility] PCP - General Nurse Practitioner 08/20/23 Stapler Machine Relationship Specialty Start Date End Date Eusebia Terrell HEAD OF INTEGRATED MEDIA-K 9 HANDLER/ DEPUTY PCP - General Nurse Practitioner 08/20/23 Stapler Machine Relationship Specialty Start Date End Date Mirza Guzmán MD [address] [place] [address] PCP - General Family Medicine 04/17/24 Eusebia Terrell NP [address] [place] [address] Nurse Practitioner Family Medicine 03/18/23 Stapler Machine Relationship Specialty Start Date End Date Mirza Guzmán MD [address] [place] [address] PCP - General Family Medicine 04/17/24 Eusebia Terrell NP [address] [place] [address] Nurse Practitioner Family Medicine 03/18/23 Stapler Machine Relationship Specialty Start Date End Date Eusebia Terrell HEAD OF INTEGRATED MEDIA-K 9 HANDLER/ DEPUTY [address] [place] [address] PCP - General 11/04/19 Justyn Mondragon MD [address] [facility] Medical Office Bl, [address] [phone] Central Services Tech Cardiology 07/05/23 Stapler Machine Relationship Specialty Start Date End Date Mirza Guzmán MD [address] [place] [address] PCP - General Family Medicine 04/17/24 Eusebia Terrell NP [address] [place] [address] Nurse Practitioner Family Medicine 03/18/23 Stapler Machine Relationship Specialty Start Date End Date Mirza Guzmán MD [address] [place] [address] PCP - General Family Medicine 04/17/24 Eusebia Terrell NP [address] [place] [address] Nurse Practitioner Family Medicine 03/18/23 Stapler Machine Relationship Specialty Start Date End Date Mirza Guzmán MD [address] [place] [address] PCP - General Family Medicine 04/17/24 Eusebia Terrell NP [address] [place] [address] Nurse Practitioner Family Medicine 03/18/23 Stapler Machine Relationship Specialty Start Date End Date Mirza Guzmán MD [address] [place] [address] PCP - General Family Medicine 04/17/24 Eusebia Terrell NP [address] [place] [address] Nurse Practitioner Family Medicine 03/18/23 Stapler Machine Relationship Specialty Start Date End Date Mirza Guzmán MD [address] [place] [address] PCP - General Family Medicine 04/17/24 Eusebia Terrell NP [address] [place] [address] Nurse Practitioner Family Medicine 03/18/23 FOR RECORDS [...] BE BASED ON THE PRIMARY CLINICAL RECORDS. [facility]. provides no warranty or guarantee of the accuracy or completeness of information in this document.
[2025-02-09 11:43] LABS: Anion Gap 15.2; Blood Urea Nitrogen 23.0 mg/dL (7.0-18.0); Calcium 8.8 mg/dL (8.5-10.1); Carbon Dioxide 27.9 mmol/L (21.0-32.0); Chloride 102 mmol/L (98-107); Estimated GFR (African America >60 (>=60 mL/min/1.73m^2); Estimated GFR (Non-African Ame 51 (>=60 mL/min/1.73m^2); Glucose 120 mg/dL (74-106); Potassium 4.1 mmol/L (3.5-5.1); Sodium 141 mmol/L (136-145)
== END 2025-02-09 10:29 | disposition home or self-care (01) ==
LOC: LAB 10:28
PROVIDERS: PCP Nurse Practitioner; Visit Provider Nurse Practitioner
DX: R60.0 Localized edema (principal); I10 Essential (primary) hypertension
CPT/HCPCS: 36415; 80048

== ENCOUNTER 2025-03-15 17:33 | Inpatient (IN) | payer OTHER, SELFPAY ==
--- OUTSIDE RECORDS SUMMARY | 2025-02-02 14:29 | XMS_ITS ---
Author Name Auto Generated Organization OHIP Care Team Providers Care Helper Maintenance Cleaning Name Role Phone MADISON BLANCO Attending Unavailable MADISON BLANCO Referring Unavailable CHARY FELICIANO Primary Care Unavailable CHARY FELICIANO Attending Unavailable CHARY FELICIANO Attending Unavailable CHARY FELICIANO Attending Unavailable CHARY FELICIANO Attending Unavailable CHARY FELICIANO Attending Unavailable CHARY FELICIANO Referring Unavailable CHARY FELICIANO Primary Care Unavailable CHARY FELICIANO Referring Unavailable CHARY FELICIANO Primary Care Unavailable CHARY FELICIANO Referring Unavailable CHARY FELICIANO Primary Care Unavailable CHARY FELICIANO Primary Care Unavailable LUKE CASTRO Attending Unavailable PROBLEMS DATE TYPE CONDITION / CODE ATTENDING STATUS [facility] 01/24/2025 Unknown Leg Pain / FREETEXT(AOF) LUKE CASTRO [facility] 01/24/2025 Unknown Pain in rt leg / UNK(Unknown) LUKE CASTRO [facility] 01/02/2025 Unknown Chronic diastoli c (congestive) heart failure / I50.32(ICD-10) NA [facility] 10/08/2023 Admitting Diagnosis Essential (primary) hypertension / I10(ICD-10) [facility] 10/08/2023 Admitting Diagnosis 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 / I25.10(ICD-10) [facility] 04/13/2023 Admitting Diagnosis Personal history of nicotine dependence / Z87.891(ICD-10) [facility] 04/13/2023 Admitting Diagnosis Old myocardial infarction / I25.2(ICD-10) [facility] 04/12/2023 Admitting Diagnosis Morbid (severe) obesity due to excess calories (Multi) / E66.01(ICD-10) [facility] 04/12/2023 Admitting Diagnosis Body mass index (BMI) 50.0-59.9, adult (Multi) / Z68.43(ICD-10) [facility] 04/12/2023 Admitting Diagnosis Paroxysmal atrial fibrillation (Multi) / I48.0(ICD-10) [facility] 04/12/2023 Admitting Diagnosis Patient's noncompliance with other medical treatment and regimen due to unspecified reason / Z91.199(ICD-10) [facility] 04/12/2023 Admitting Diagnosis Obstructive sleep apnea (adult) (pediatric) / G47.33(ICD-10) [facility] 09/17/2024 Unknown Obstructive slee p apnea (adult) (pediatric) / G47.33(ICD-10) [facility] 09/17/2024 Unknown 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 / I25.10(ICD-10) [facility] 09/17/2024 Unknown Essential (prima ry) hypertension / I10(ICD-10) [facility] 09/17/2024 Unknown Prediabetes / R73.03(ICD-10) [facility] 09/17/2024 Unknown Vitamin deficien cy, unspecified / E56.9(ICD-10) [facility] 09/17/2024 Unknown Mixed hyperlipid emia / E78.2(ICD-10) [facility] 09/17/2024 Unknown Encounter for screening for malignant neoplasm of prostate / Z12.5(ICD-10) [facility] 09/17/2024 Unknown Elevated prostat e specific antigen (PSA) / R97.20(ICD-10) [facility] 09/17/2024 Unknown Nontoxic single thyroid nodule / E04.1(ICD-10) [facility] 05/28/2024 Unknown Paroxysmal atria l fibrillation / I48.0(ICD-10) [facility] 05/28/2024 Unknown Localized edema / R60.0(ICD-10) [facility] PROCEDURES No Procedure Records Found RESULTS CBC WITH AUTO DIFFERENTIAL Collected: 0 01/25/2025 12:33 AM Status: COMPLETED Source: [facility] TYPE CODE TESTS RESULT OUT OF RANGE REFERENCE UNITS LAB WBC WBC 8.7 4-11 x10E9/L LAB RBC RBC COUNT 5.07 4.1-5.7 X10E12/L LAB HGB HEMOGLOBIN 16.0 13-17 g/dL LAB HCT HEMATOCRIT 47.0 39-50 % LAB MCV MCV 93 80-100 fL LAB MCH MCH 31.6 27-34 pg LAB MCHC MCHC 34.1 32-36 g/dL LAB RDW RDW 13.3 11.5-15 % LAB PLTC PLATELET COUNT 298 150-450 X10E9/L LAB MPV MPV 8.4 7-12 fL LAB NEUT NEUTROPHILS RELATIVE PERCENT BY AUTOMATED COUNT 72.9 % LAB LYMP LYMPHOCYTES RELATIVE PERCENT BY AUTOMATED COUNT 15.3 % LAB MONO MONOCYTES RELATIVE PERCENT BY AUTOMATED COUNT 9.7 % LAB EOS EOSINOPHILS RELATIVE PERCENT BY AUTOMATED COUNT 1.7 % LAB BASO BASOPHILS RELATIVE PERCENT BY AUTOMATED COUNT 0.4 % LAB ANEUT NEUTROPHILS ABSOLUTE COUNT BY AUTOMATED COUNT 6.3 1.5-6.6 10*3/uL LAB ALYMP LYMPHOCYTES ABSOLUTE COUNT (10*3/UL) BY AUTOMATED COUNT 1.3 1.0-3.5 10*3/uL LAB AMONO MONOCYTES ABSOLUTE COUNT (10*3/UL) BY AUTOMATED COUNT 0.8 0.0-0.9 10*3/uL LAB AEOS EOSINOPHILS ABSOLUTE COUNT (10*3/UL) BY AUTOMATED COUNT 0.1 0.0-0.4 10*3/uL LAB ABASO BASOPHILS ABSOLUTE COUNT (10*3/UL) BY AUTOMATED COUNT 0.0 0.0-0.2 10*3/uL LAB DTYPE CELLAVISION DIFFERENTIAL TYPE AUTOMATED DIFFERENTIAL Performed By: #### CBCA #### [facility] ([address] [address] BASIC METABOLIC PANEL Collected: 01/25/2025 12: 33 AM Status: COMPLETED Source: [facility] TYPE CODE TESTS RESULT OUT OF RANGE REFERENCE UNITS LAB NA SODIUM 137 134-146 mmol/L LAB K POTASSIUM 3.9 3.5-5.0 mmol/L LAB CL CHLORIDE 99 98-109 mmol/L LAB CO2 CARBON DIOXIDE 29 22-32 mmol/L LAB AGAP ANION GAP 9 5-15 mmol/L LAB BUN BLOOD UREA NITROGEN 26 5-27 mg/dL LAB CRET CREATININE 1.31 High 0.70-1.20 mg/dL Result Comment: METHOD TRACE ABLE TO IDMS STANDARD LAB GLU GLUCOSE 156 High 65-99 mg/dL LAB CA CALCIUM 9.3 8.5-10.5 mg/dL LAB EGFR EGFR (CKD-EPI) NON-RACE DEPENDENT 62 >=60 ml/min/1. 73sq.m Result Comment: eGFR not rep orted due to non-numeric value for Creatinine. Reported eGFR is based on the CKD-EPI 2020 equation that does not use a race coefficient. Performed By: #### BMP #### [address] [address] VIR B-TYPE NATRIURETIC PEPTIDE Collected: 12:33 AM Status: COMPLETED Source: [facility] TYPE CODE TESTS RESULT OUT OF RANGE REFERENCE UNITS LAB BNP B-TYPE NATRIURETIC PEPTIDE 50 <=100 pg/mL Performed By: #### BNP #### [address] [address] VIR CBC WITH AUTO DIFFERENTIAL Collected: 0 01/02/2025 9:52 AM Status: COMPLETED Source: [facility] TYPE CODE TESTS RESULT OUT OF RANGE REFERENCE UNITS LAB WBC WBC 9.4 4-11 x10E9/L LAB RBC RBC COUNT 5.11 4.1-5.7 X10E12/L LAB HGB HEMOGLOBIN 16.1 13-17 g/dL LAB HCT HEMATOCRIT 48.6 39-50 % LAB MCV MCV 95 80-100 fL LAB MCH MCH 31.5 27-34 pg LAB MCHC MCHC 33.2 32-36 g/dL LAB RDW RDW 13.6 11.5-15 % LAB PLTC PLATELET COUNT 297 150-450 X10E9/L LAB MPV MPV 9.0 7-12 fL LAB NEUT NEUTROPHILS RELATIVE PERCENT BY AUTOMATED COUNT 75.2 % LAB LYMP LYMPHOCYTES RELATIVE PERCENT BY AUTOMATED COUNT 14.7 % LAB MONO MONOCYTES RELATIVE PERCENT BY AUTOMATED COUNT 7.6 % LAB EOS EOSINOPHILS RELATIVE PERCENT BY AUTOMATED COUNT 1.5 % LAB BASO BASOPHILS RELATIVE PERCENT BY AUTOMATED COUNT 1.0 % LAB ANEUT NEUTROPHILS ABSOLUTE COUNT BY AUTOMATED COUNT 7.0 High 1.5-6.6 10*3/uL LAB ALYMP LYMPHOCYTES ABSOLUTE COUNT (10*3/UL) BY AUTOMATED COUNT 1.4 1.0-3.5 10*3/uL LAB AMONO MONOCYTES ABSOLUTE COUNT (10*3/UL) BY AUTOMATED COUNT 0.7 0.0-0.9 10*3/uL LAB AEOS EOSINOPHILS ABSOLUTE COUNT (10*3/UL) BY AUTOMATED COUNT 0.1 0.0-0.4 10*3/uL LAB ABASO BASOPHILS ABSOLUTE COUNT (10*3/UL) BY AUTOMATED COUNT 0.1 0.0-0.2 10*3/uL LAB DTYPE CELLAVISION DIFFERENTIAL TYPE AUTOMATED DIFFERENTIAL Performed By: #### CBCA #### [facility] ([facility]) [address] [place] [address] VIR BASIC METABOLIC PANEL Collected: 01/02/2025 9:5 2 AM Status: COMPLETED Source: [facility] TYPE CODE TESTS RESULT OUT OF RANGE REFERENCE UNITS LAB NA SODIUM 135 134-146 mmol/L LAB K POTASSIUM 4.3 3.5-5.0 mmol/L LAB CL CHLORIDE 97 Low 98-109 mmol/L LAB CO2 CARBON DIOXIDE 27 22-32 mmol/L LAB AGAP ANION GAP 11 5-15 mmol/L LAB BUN BLOOD UREA NITROGEN 20 5-27 mg/dL LAB CRET CREATININE 1.25 0.60-1.30 mg/dL Result Comment: METHOD TRACE ABLE TO IDMS STANDARD LAB GLU GLUCOSE 112 High 65-99 mg/dL LAB CA CALCIUM 9.3 8.5-10.5 mg/dL LAB EGFR EGFR (CKD-EPI) NON-RACE DEPENDENT 66 >=60 ml/min/1. 73sq.m Result Comment: Reported eGF R is based on the CKD-EPI 2020 equation that does not use a race coefficient. Performed By: #### BMP #### [facility] ([facility]) [address] [place] [id number] VIR COMPREHENSIVE METABOLIC PANEL Collected : 09/17/2024 11:44 AM Status: COMPLETED Source: [facility] TYPE CODE TESTS RESULT OUT OF RANGE REFERENCE UNITS LAB NA(LOINC) SODIUM 137 134-146 mmol/L LAB K(LOINC) POTASSIUM 4.2 3.5-5.0 mmol/L LAB CL(LOINC) CHLORIDE 98 98-109 mmol/L LAB CO2(LOINC) CARBON DIOXIDE 28 22-32 mmol/L LAB AGAP(LOINC) ANION GAP 11 5-15 mmol/L LAB BUN(LOINC) BLOOD UREA NITROGEN 20 5-27 mg/dL LAB CRET(LOINC) CREATININE 1.26 0.60-1.30 mg/dL Result Comment: METHOD TRACE ABLE TO IDMS STANDARD LAB GLU(LOINC) GLUCOSE 105 High 65-99 mg/dL LAB CA(LOINC) CALCIUM 9.3 8.5-10.5 mg/dL LAB TP(LOINC) TOTAL PROTEIN 7.2 6.0-8.0 g/dL LAB ALB(LOINC) ALBUMIN 4.2 3.2-5.3 g/dL LAB ALK(LOINC) ALKALINE PHOSPHATASE 111 39-130 U/L LAB AST(LOINC) AST 16 0-41 U/L LAB ALT1(LOINC) ALT 20 0-40 U/L LAB TBIL(LOINC) BILIRUBIN,TOTAL 0.8 0.3-1.2 mg/d L LAB EGFR(LOINC) eGFR (CKD-EPI) NON-RACE DEPENDENT 65 >59 ml/min/1 .73sq.m Result Comment: Reported eGFR is based on the CKD-EPI 2020 equation that does not use a race coefficient. Performed By: #### CMP, 2433 1-1, 40305-9, FTA, [facility], 73914-2 #### [facility] ([id number]) [address] [place] [address], [address] [place] [address] LIPID PROFILE Collected: 09/17/2024 11:44 AM Status: COMPLETED Source: [facility] TYPE CODE TESTS RESULT OUT OF RANGE REFERENCE UNITS LAB CHOL(LOINC) CHOLESTEROL 124 Low 150-200 mg/dL LAB TRIG(LOINC) TRIGLYCERIDE 162 High 27-150 mg/dL LAB HDL(LOINC) HDL CHOLESTEROL 44 >39 mg/dL Result Comment: HDL <40 mg/dL - High Risk HDL > or = 40mg/dL- Desirable HDL >60 mg/dL - Negative Risk LAB VLDL(LOINC) VERY LOW LIPOPROTEIN 32 High 0-30 mg/dL LAB LDL(LOINC) LDL (CALC) 48 <130 mg/dL Result Comment: LDL <100 mg/dL - Desirable LDL >160 mg/dL - High Risk LAB CHDL(LOINC) CHOLESTEROL:HDL 2.8 1.0-5.0 Performed By: #### CMP, 2433 1-1, 87079-0, FTPSA, THYR, 39721-0 #### [facility] ([id number]) [address], [address] [place] [address] MAGNESIUM Collected: 09/17/2024 11:44 AM Status: COMPLETED Source: [facility] TYPE CODE TESTS RESULT OUT OF RANGE REFERENCE UNITS LAB MG(LOINC) MAGNESIUM 2.1 1.8-2.6 mg/dL Performed By: #### CMP, 2433 1-1, 04624-4, FTPSA, THYR, 21281-5 #### [facility] ([id number]) [address], [address] [place] [address] FREE AND TOTAL PSA Collected: 11:44 AM Status: COMPLETED Source: [facility] TYPE CODE TESTS RESULT OUT OF RANGE REFERENCE UNITS LAB PSA(LOINC) PROSTATIC SPEC ANT 1.26 0.00-4.00 ng/mL Result Comment: The method used for this test is Carleen [place] DXI chemiluminescent immunoassay. Values obtained by different assay methods cannot be used interchangeably. LAB FRPSA(LOINC) FREE PSA 0.29 ng/mL LAB PFPSA(LOINC) % FREE PSA 23.0 Result Comment: Percent Free PSA has been [...] prostate cancer and BPH. Performed By: #### HANNAH, 2433 -, , FTPSA, THYR, 26067-2 #### [facility] ([id number]) [address] [place] [address], [address] [address] THYROID PROFILE Collected: 5 11:44 AM Status: COMPLETED Source: [facility] TYPE CODE TESTS RESULT OUT OF RANGE REFERENCE UNITS LAB TSH(LOINC) TSH 1.01 0.49-4.67 uIU/mL LAB FT4(LOINC) FREE T4 1.13 0.61-1.60 ng/dL Performed By: ###Tanisha YOUNG, 24306-18, , FTPSA, THYR, 98764-9 #### [facility] ([id number]) [address] [place] [address] VITAMIN D 25 HYD TOT Collected: 025 11:44 AM Status: COMPLETED Source: [facility] TYPE CODE TESTS RESULT OUT OF RANGE REFERENCE UNITS LAB VITD(LOINC) VITAMIN D 25 HYD TOT 24.0 Low 30-100 ng/mL Result Comment: Vitamin D status 25 [place] Vitamin D Deficiency <20 ng/mL Insufficiency 20-29 ng/mL Sufficiency 30-100 ng/mL Toxicity >100 ng/mL NOTE: A pediatric reference range has not been established by the computer systems security administrator of this kit. The [place] [employer] recommends a Vitamin D level of = or >20ng/mL in infants and children. Performed By: ###Tanisha YOUNG, [address] 16-, , FTPSA, THYR, 40339-5 #### [facility] ([id number]) [address] [place] [address] [place] [address] CBC AND AUTO DIFF Collected: 05/28/2024 4:28 PM Status: COMPLETED Source: [facility] TYPE CODE TESTS RESULT OUT OF RANGE REFERENCE UNITS LAB WBC(LOINC) WBC COUNT 8.8 4.0-11.0 X10E9/L LAB RBC(LOINC) RBC COUNT 4.89 4.10-5.70 X10E12/L LAB HGB(LOINC) HEMOGLOBIN 15.8 13.0-17.0 g/dL LAB HCT(LOINC) HEMATOCRIT 46.4 39-49 % LAB MCV(LOINC) MCV 95 80-100 fL LAB MCH(LOINC) MCH 32.2 27-34 pg LAB MCHC(LOINC) MCHC 34.0 32-36 g/dL LAB RDW(LOINC) RDW 13.6 11.5-15.0 % LAB PLTC(LOINC) PLATELET COUNT 272 150-450 X10E9 /L LAB MPV(LOINC) MPV 9.1 7-12 fL LAB NEUT(LOINC) % NEUTROPHILS 71.8 % LAB LYMP(LOINC) % LYMPHOCYTES 16.4 % LAB MONO(LOINC) % MONOCYTES 9.5 % LAB EOS(LOINC) % EOSINOPHILS 1.4 % LAB BASO(LOINC) % BASOPHILS 0.9 % LAB ANEUT(LOINC) ABSOLUTE NEUTROPHIL 6.3 1.5-6.6 X10E9/L LAB ALYMP(LOINC) ABSOLUTE LYMPHOCYTE 1.4 1.0-3.5 X10E9/L LAB AMONO(LOINC) ABSOLUTE MONOCYTE 0.8 0-0.9 X10E9/L LAB AEOS(LOINC) ABSOLUTE EOSINOPHIL 0.1 0.0-0.4 X10E9/L LAB ABASO(LOINC) ABSOLUTE BASOPHIL 0.1 0.0-0.2 X10E9/L Performed By: #### CBCA, BMP #### [facility] ([id number]) [address], [address] [place] [address] BASIC METABOLIC PANL Collected: 05/28/2024 4:28 PM Status: COMPLETED Source: [facility] TYPE CODE TESTS RESULT OUT OF RANGE REFERENCE UNITS LAB NA(LOINC) SODIUM 138 134-146 mmol/L LAB K(LOINC) POTASSIUM 4.4 3.5-5.0 mmol/L LAB CL(LOINC) CHLORIDE 100 98-109 mmol/L LAB CO2(LOINC) CARBON DIOXIDE 31 22-32 mmol/L LAB AGAP(LOINC) ANION GAP 7 5-15 mmol/L LAB BUN(LOINC) BLOOD UREA NITROGEN 20 5-23 mg/dL LAB CRET(LOINC) CREATININE 1.34 High 0.60-1.30 mg/dL Result Comment: METHOD TRACE ABLE TO IDMS STANDARD LAB GLU(LOINC) GLUCOSE 112 High 65-99 mg/dL LAB CA(LOINC) CALCIUM 9.1 8.5-10.5 mg/dL LAB EGFR(LOINC) eGFR (CKD-EPI) NON-RACE DEPENDENT 61 >59 ml/min/1. 73sq.m Result Comment: Reported eGFR is based on the CKD-EPI 2020 equation that does not use a race coefficient. Performed By: #### CBCA, BMP #### [facility] ([id number]) [address] [place] [address], [address] [place] [address] ALLERGIES DATE TYPE / CODE NAME / CODE REACTION SEVERITY SOURCE 04/12/2023 DRUG INGREDI/[id number](S NOMED CT) [facility] 04/12/2023 DRUG INGREDI~NON-CBORD/4 [id number](SNOMED CT) LISINOPRIL Cough [facility] ENCOUNTERS ADMIT/DISCHARGE ACCOUNT NUMBER ADMITTING ENCOUNTER CLASS LOCATION SOURCE 02/02/2025/02/03/20 [id number] Ambulatory Building:[facility] 01/24/2025/01/26/20 25 [id number] Emergency Building:PF _EDRoom: 7Bed: 07 [facility] 01/02/2025 [id number] Ambulatory Building:[facility] 12/22/2024/12/23/19 [id number] Ambulatory Building:[facility] 10/15/2024/10/16/19 25 [id number] Ambulatory Building:[facility] [id number] [facility] 09/18/2024/09/19/19 [id number] Ambulatory Building:[facility] 09/17/2024/09/18/19 [id number] [facility] 06/19/2024/06/19/19 [id number] Ambulatory Building:[facility] 05/28/2024/05/28/20 24 [id number] [facility] 04/09/2024/04/09/20 24 [id number] Ambulatory Building:[facility] PAYERS ENCOUNTER GUARANTOR PAYER SUBSCRIBER SOURCE 02/02/2025 ELYSE HERNÁNDEZ: [place], [place] [address]Vja: (HP) [facility]: [id number] Date:2024-06-18 ELYSE HERNÁNDEZ: [id number] [place] [address] [facility] 01/24/2025 ELYSE HERNÁNDEZ: [id number] [place], [place] [address]Mnx: (HP) [facility] MEDICAIDPolicy Number: [id number] Date:2023-06-18 ELYSE HERNÁNDEZ: [id number] [place], [place] [address]Kmh: (HP) [facility] 01/24/2025 Secondary Insura nce:[facility] [employer] ESSENTIALPolicy Number: [id number] Date:2024-06-18 ELYSE HERNÁNDEZ: [id number] [place] [address] [facility] 01/02/2025 ELYSE HERNÁNDEZ: [id number] [place], [place] [address]Zof: (HP) Primary Insurance:[facility] [employer] ESSENTIALPolicy Number: [id number] Date:2024-06-18 ELYSE BEE PADMINIB: [id number] [place] [address] [facility] 01/02/2025 Secondary Insurance:[facility] MEDICAIDPolicy Number: [id number] Date:2023-06-18 ELYSE BEE PADMINIB: [id number] [place], [place] [address]Kly: (HP) [facility] 12/22/2024 ELYSE WASHINGTONB: [place], [place] [address]Nzz: (HP) [facility] Insurance[facility] Number: [id number] Date:2024-06-18 ELYSE WASHINGTONB: [id number] [place] [address] [facility] 10/15/2024 ELYSE HERNÁNDEZ: [id number] [place], [place] [address]Ohm: (HP) Primary Insurance:[facility] MEDICAIDPolicy Number: [id number] Date:2023-06-18 ELYSE WASHINGTONB: [id number] [place], [place] [address]Nwr: (HP) [facility] 10/15/2024 Secondary Insurance:[facility]ALTHPLACEPolicy Number: [id number] Date:2024-06-18 ELYSE WASHINGTONB: [id number] [place], [place] [address]Otn: () [facility] 09/18/2024 ELYSE WASHINGTONB: [id number] [place], [place] [address]Lvo: (HP) [facility] Insurance[facility] Number: [id number] Date:2024-06-18 ELYSE WASHINGTONB: [id number] [place] [address] [facility] 09/17/2024 ELYSE WASHINGTONB: [id number] [place], [place] [address]Gec: (HP) Primary Insurance:[facility]ZE ESSENTIALPolicy Number: [id number] Date:2024-06-18 ELYSE WASHINGTONB: [id number] [place] [address] [facility] 09/17/2024 Secondary Insurance:[facility] MEDICAIDPolicy Number: [id number] Date:2023-06-18 ELYSE WASHINGTONB: [id number] [place], [place] [address]Get: (HP) [facility] 06/19/2024 ELYSE WASHINGTONB: [place], [place] [address]Xeb: (HP) Primary Insurance:[employer] MEDICAREPolicy Number: [id number] Date:2023-08-17 ELYSE WASHINGTONB: [id number] [place] [address] [facility] 06/19/2024 Secondary Insurance:[place] MEDICAIDPolicy Number: [id number] Date:2024-06-18 ELYSE WASHINGTONB: [id number] [place] [address] [facility] 05/28/2024 ELYSE WASHINGTONB: [id number] [place], [place] [address]Fko: (HP) Primary Insurance:[facility] ESSENTIALPolicy Number: [id number] Date:2023-08-17 ELYSE WASHINGTONB: [id number] [place], [place] [address]Zhj: (HP) [facility] 05/28/2024 Secondary Insurance:[facility] MEDICAIDPolicy Number: [id number] Date:2023-06-18 EYLSE WASHINGTONB: [id number] [place], [place] [address]Tef: () [facility] 04/09/2024 ELYSE HERNÁNDEZ: [id number] [place], [place] [address]Eki: (HP) Primary Insurance:[employer] MEDICAIDPolicy Number: [id number] Date:2024-02-17 ELYSE HERNÁNDEZ: [id number] [place] [address] [facility] 04/09/2024 Secondary Insurance:[employer] MEDICAREPolicy Number: [id number] Date:2023-08-17 ELYSE HERNÁNDEZ: [id number] [place] [address] [facility]
--- OUTSIDE RECORDS SUMMARY | 2025-02-02 14:29 | XMS_ITS ---
Author Name Auto Generated Organization OHIP Care Team Providers Care Intrusion Analyst Name Role Phone MADISON BLANCO Attending Unavailable [...] DATE TYPE CONDITION / CODE ATTENDING STATUS [facility] 01/24/2025 Unknown Leg Pain / FREETEXT(AOF) LUKE CASTRO [facility] 01/24/2025 Unknown Pain in rt leg / UNK(Unknown) LUKE CASTRO [facility] 01/02/2025 Unknown Chronic diastoli c (congestive) heart failure / I50.32(ICD-10) NA [facility] 10/08/2023 Admitting Diagnosis Essential (primary) hypertension / I10(ICD-10) [facility] 10/08/2023 Admitting Diagnosis Atherosclerotic heart disease of [place] coronary artery without angina pectoris / I25.10(ICD-10) [facility] 04/13/2023 Admitting Diagnosis Personal history of nicotine dependence / Z87.891(ICD-10) [facility] 04/13/2023 Admitting Diagnosis Old myocardial infarction / I25.2(ICD-10) [facility] 04/12/2023 Admitting Diagnosis Morbid (severe) obesity due to excess calories (Multi) / E66.01(ICD-10) [facility] 04/12/2023 Admitting Diagnosis Body mass index (BMI) 50.0-59.9, adult (Multi) / Z68.43(ICD-10) [facility] 04/12/2023 Admitting Diagnosis Paroxysmal atrial fibrillation (Multi) / I48.0(ICD-10) [facility] 04/12/2023 Admitting Diagnosis Patient's noncompliance with other medical treatment and regimen due to unspecified reason / Z91.199(ICD-10) [facility] 04/12/2023 Admitting Diagnosis Obstructive sleep apnea (adult) (pediatric) / G47.33(ICD-10) [facility] 09/17/2024 Unknown Obstructive slee p apnea (adult) (pediatric) / G47.33(ICD-10) [facility] 09/17/2024 Unknown Atherosclerotic heart disease of [place] coronary artery without angina pectoris / I25.10(ICD-10) [facility] 09/17/2024 Unknown Essential (prima ry) hypertension / I10(ICD-10) [facility] 09/17/2024 Unknown Prediabetes / R73.03(ICD-10) [facility] 09/17/2024 Unknown Vitamin deficien cy, unspecified / E56.9(ICD-10) [facility] 09/17/2024 Unknown Mixed hyperlipid emia / E78.2(ICD-10) [facility] 09/17/2024 Unknown Encounter for screening for malignant neoplasm of prostate / Z12.5(ICD-10) [facility] 09/17/2024 Unknown Elevated prostat e specific antigen (PSA) / R97.20(ICD-10) [facility] 09/17/2024 Unknown Nontoxic single thyroid nodule / E04.1(ICD-10) [facility] 05/28/2024 Unknown Paroxysmal atria l fibrillation / I48.0(ICD-10) [facility] 05/28/2024 Unknown Localized edema / R60.0(ICD-10) [facility] PROCEDURES No Procedure Records Found RESULTS CBC WITH AUTO DIFFERENTIAL Collected: 0 01/25/2025 12:33 AM Status: COMPLETED Source: [facility] TYPE CODE TESTS RESULT OUT OF RANGE [...] AUTOMATED DIFFERENTIAL Performed By: #### CBCA #### [facility] ([address] [address] BASIC METABOLIC PANEL Collected: 01/25/2025 12: 33 AM Status: COMPLETED Source: [facility] TYPE CODE TESTS RESULT OUT OF RANGE [...] race coefficient. Performed By: #### BMP #### [address] [address] VIR B-TYPE NATRIURETIC PEPTIDE Collected: 12:33 AM Status: COMPLETED Source: [facility] TYPE CODE TESTS RESULT OUT OF RANGE REFERENCE UNITS LAB BNP B-TYPE NATRIURETIC PEPTIDE 50 <=100 pg/mL Performed By: #### BNP #### [address] [address] VIR CBC WITH AUTO DIFFERENTIAL Collected: 0 01/02/2025 9:52 AM Status: COMPLETED Source: [facility] TYPE CODE TESTS RESULT OUT OF RANGE [...] AUTOMATED DIFFERENTIAL Performed By: #### CBCA #### [facility] ([facility]) [address] [place] [address] VIR BASIC METABOLIC PANEL Collected: 01/02/2025 9:5 2 AM Status: COMPLETED Source: [facility] TYPE CODE TESTS RESULT OUT OF RANGE [...] race coefficient. Performed By: #### BMP #### [facility] ([facility]) [address] [place] [id number] VIR COMPREHENSIVE METABOLIC PANEL Collected : 09/17/2024 11:44 AM Status: COMPLETED Source: [facility] TYPE CODE TESTS RESULT OUT OF RANGE [...] coefficient. Performed By: #### CMP, 2433 1-1, 84527-6, FTA, [facility], 98260-3 #### [facility] ([id number]) [address] [place] [address], [address] [place] [address] LIPID PROFILE Collected: 09/17/2024 11:44 AM Status: COMPLETED Source: [facility] TYPE CODE TESTS RESULT OUT OF RANGE [...] 1.0-5.0 Performed By: #### CMP, 2433 1-1, 70324-4, FTPSA, THYR, 23218-8 #### [facility] ([id number]) [address] [facility], [address] [place] [address] MAGNESIUM Collected: 09/17/2024 11:44 AM Status: COMPLETED Source: [facility] TYPE CODE TESTS RESULT OUT OF RANGE REFERENCE UNITS LAB MG(LOINC) MAGNESIUM 2.1 1.8-2.6 mg/dL Performed By: #### CMP, 2433 1-1, 46357-7, FTPSA, THYR, 84093-4 #### [facility] ([id number]) [address] [facility], [address] [place] [address] FREE AND TOTAL PSA Collected: 11:44 AM Status: COMPLETED Source: [facility] TYPE CODE TESTS RESULT OUT OF RANGE REFERENCE UNITS LAB PSA(LOINC) PROSTATIC SPEC ANT 1.26 0.00-4.00 ng/mL Result Comment: The method used for this test is Carleen Genesee DXI chemiluminescent immunoassay. Values obtained by different [...] #### HANNAH, 2433 -, , FTPSA, THYR, 01679-8 #### [facility] ([id number]) [address] [place] [address], [address] [address] THYROID PROFILE Collected: 5 11:44 AM Status: COMPLETED Source: [facility] TYPE CODE TESTS RESULT OUT OF RANGE REFERENCE UNITS LAB TSH(LOINC) TSH 1.01 0.49-4.67 uIU/mL LAB FT4(LOINC) FREE T4 1.13 0.61-1.60 ng/dL Performed By: ###Tanisha YOUNG, 24306-18, , FTPSA, THYR, 72306-6 #### [facility] ([id number]) [address] [place] [address] VITAMIN D 25 HYD TOT Collected: 025 11:44 AM Status: COMPLETED Source: [facility] TYPE CODE TESTS RESULT OUT OF RANGE REFERENCE UNITS LAB VITD(LOINC) VITAMIN D 25 HYD TOT 24.0 Low 30-100 ng/mL Result Comment: Vitamin D status 25 [place] Vitamin D Deficiency <20 ng/mL Insufficiency 20-29 ng/mL Sufficiency 30-100 ng/mL Toxicity >100 ng/mL NOTE: A pediatric reference range has not been established by the electronic gluer of this kit. The [place] [employer] recommends a Vitamin D level of = or >20ng/mL in infants and children. Performed By: ###Tanisha YOUNG, [address] 16-, , FTPSA, THYR, 48740-0 #### [facility] ([id number]) [address] [place] [address] [place] [address] CBC AND AUTO DIFF Collected: 05/28/2024 4:28 PM Status: COMPLETED Source: [facility] TYPE CODE TESTS RESULT OUT OF RANGE [...] X10E9/L Performed By: #### CBCA, BMP #### [facility] ([id number]) [address] [facility], [address] [place] [address] BASIC METABOLIC PANL Collected: 05/28/2024 4:28 PM Status: COMPLETED Source: [facility] TYPE CODE TESTS RESULT OUT OF RANGE [...] coefficient. Performed By: #### CBCA, BMP #### [facility] ([id number]) [address] [place] [address], [address] [place] [address] ALLERGIES DATE TYPE / CODE NAME / CODE REACTION SEVERITY SOURCE 04/12/2023 DRUG INGREDI/[id number](S NOMED CT) L[facility]RIL Cough [facility] 04/12/2023 DRUG INGREDI~NON-CBORD/4 [id number](SNOMED CT) LISINOPRIL Cough [facility] ENCOUNTERS ADMIT/DISCHARGE ACCOUNT NUMBER ADMITTING ENCOUNTER CLASS LOCATION SOURCE 02/02/2025/02/03/20 [id number] Ambulatory Building:[facility] 01/24/2025/01/26/20 25 [id number] Emergency Building:PF _EDRoom: 7Bed: 07 [facility] 01/02/2025 [id number] Ambulatory Building:[facility] _[facility] 12/22/2024/12/23/19 [id number] Ambulatory Building:[facility] 10/15/2024/10/16/19 25 [id number] Ambulatory Building:[facility] [id number] [facility] 09/18/2024/09/19/19 [id number] Ambulatory Building:[facility] 09/17/2024/09/18/19 [id number] [facility] 06/19/2024/06/19/19 [id number] Ambulatory Building:[facility] 05/28/2024/05/28/20 24 [id number] [facility] 04/09/2024/04/09/20 24 [id number] Ambulatory Building:[facility] PAYERS ENCOUNTER GUARANTOR PAYER SUBSCRIBER SOURCE 02/02/2025 ELYSE HERNÁNDEZ: [place], [place] [address]Usc: (HP) [facility]: [id number] Date:2024-06-18 ELYSE HERNÁNDEZ: [id number] [place] [address] [facility] 01/24/2025 ELYSE HERNÁNDEZ: [id number] [place], [place] [address]Nge: (HP) Primary Insurance:[facility] MEDICAIDPolicy Number: [id number] Date:2023-06-18 ELYES HERNÁNDEZ: [id number] [place], [place] [address]Uqu: (HP) [facility] 01/24/2025 Secondary Insura nce:[facility] ESSENTIALPolicy Number: [id number] Date:2024-06-18 ELYSE HERNÁNDEZ: [id number] [place] [address] [facility] 01/02/2025 ELYSE HERNÁNDEZ: [id number] [place], [place] [address]Mpt: (HP) Primary Insurance:[facility] ESSENTIALPolicy Number: [id number] Date:2024-06-18 ELYSE BEE PADMINIB: [id number] [place] [address] [facility] 01/02/2025 Secondary Insurance:[facility] MEDICAIDPolicy Number: [id number] Date:2023-06-18 ELYSE BEE PADMINIB: [id number] [place], [place] [address]Bli: (HP) [facility] 12/22/2024 ELYSE WASHINGTONB: [place], [place] [address]Tys: (HP) [facility] Insurance:[facility] Number: [id number] Date:2024-06-18 ELYSE WASHINTGONB: [id number] [place] [address] [facility] 10/15/2024 ELYSE HERNÁNDEZ: [id number] [place], [place] [address]Phk: (HP) Primary Insurance:[facility] MEDICAIDPolicy Number: [id number] Date:2023-06-18 ELYSE WASHINGTONB: [id number] [place], [place] [address]Yow: (HP) [facility] 10/15/2024 Secondary Insurance:[facility]Policy Number: [id number] Date:2024-06-18 ELYSE WASHINGTONB: [id number] [place], [place] [address]Ulh: () [facility] 09/18/2024 ELYSE WASHINGTONB: [id number] [place], [place] [address]Jto: (HP) Primary Insurance:[facility] Number: [id number] Date:2024-06-18 ELYSE WASHINGTONB: [id number] [place] [address] [facility] 09/17/2024 ELYSE WASHINGTONB: [id number] [place], [place] [address]Ylf: (HP) Primary Insurance:[facility] ESSENTIALPolicy Number: [id number] Date:2024-06-18 ELYSE WASHINGTONB: [id number] [place] [address] [facility] 09/17/2024 Secondary Insurance:[facility] MEDICAIDPolicy Number: [id number] Date:2023-06-18 ELYSE WASHINGTONB: [id number] [place], [place] [address]Fkv: (HP) [facility] 06/19/2024 ELYSE WASHINGTONB: [place], [place] [address]Mre: (HP) Primary Insurance:[employer] MEDICAREPolicy Number: [id number] Date:2023-08-17 ELYSE WASHINGTONB: [id number] [place] [address] [facility] 06/19/2024 Secondary Insurance:[employer] MEDICAIDPolicy Number: [id number] Date:2024-06-18 ELYSE WASHINGTONB: [id number] [place] [address] [facility] 05/28/2024 ELYSE WASHINGTONB: [id number] [place], [place] [address]Mxr: (HP) Primary Insurance:[facility] ESSENTIALPolicy Number: [id number] Date:2023-08-17 ELYSE WASHINGTONB: [id number] [place], [place] [address]Bdb: (HP) [facility] 05/28/2024 Secondary Insurance:[facility] MEDICAIDPolicy Number: [id number] Date:2023-06-18 ELYSE WASHINGTONB: [id number] [place], [place] [address]Gir: () [facility] 04/09/2024 ELYSE HERNÁNDEZ: [id number] [place], [place] [address]Qpp: (HP) Primary Insurance:[employer] MEDICAIDPolicy Number: [id number] Date:2024-02-17 ELYSE HERNÁNDEZ: [id number] [place] [address] [facility] 04/09/2024 Secondary Insurance:[facility] MEDICAREPolicy Number: [id number] Date:2023-08-17 ELYSE HERNÁNDEZ: [id number] [place] [address] [facility]
[2025-03-15] VITALS (32 sets, daily range): BP systolic 73–101; BP diastolic 55–68; PULSE 67–110; TEMP 36.6–37.5; O2SAT 88–98; BMI 55.2; BMI 55.0
--- NOTE | 2025-03-15 17:46 | XR_ITS ---
The [place] [id number] Patient Name: ELYSE LEAHY MRN: [id number] date: 1965 Sex: M Assigned Patient Location: ER Current Patient Location: ED.MAIN Accession/Order Number: [id number] Exam Date: 03/15/2025 18:00 Report Date: 03/15/2025 18:30 At the request of: EVELYN MCGINNIS MD Procedure: XR chest 1V XR chest 1V 03/15/2025 6:10 PM SIGNS AND SYMPTOMS: ^SOB ^Y PROTOCOL: Frontal radiograph of the chest COMPARISON: 06/16/2023 FINDINGS: The trachea is midline. There is mild cardiomegaly. There is perihilar vascular prominence. The lung parenchyma is clear, otherwise. The bony thorax is intact. XR/XR chest 1V IMPRESSION: There is cardiomegaly with mild perihilar vascular prominence suspicious for congestive heart failure. Impression dictated by: Yazan Ratliff M.D. 03/15/2025 6:30 PM Dictation Location: [place] [address] Electronically authenticated by: [id number] Y Date: 03/15/2025 18:30
--- NOTE | 2025-03-15 17:46 | ECG_ITS ---
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
--- NOTE | 2025-03-15 17:47 | ED.GENADUL1 ---
HPI HPI - General Adult General Chief complaint: Shortness of Breath/Dyspnea Stated complaint: SOB Time Seen by Provider: 03/15/25 17:38 Source: patient Mode of arrival: ambulance History of Present Illness HPI narrative: 59-year-old male presents for difficulty breathing. He has had this for a few days and he was brought in by squad. He has been coughing up some yellow to green-colored phlegm but has not had a fever. He was given aerosol treatment by the paramedics and feels a little bit better. Still short of breath. Related Data Home Medications ?Medication ?Instructions ?Recorded ?Confirmed atorvastatin 40 mg tablet 40 mg PO Q24H 04/08/23 06/16/23 losartan 50 mg tablet 50 mg PO Q24H 04/08/23 06/16/23 benzonatate 200 mg capsule 200 mg PO .every 8 hours PRN cough 06/16/23 06/16/23 furosemide 20 mg tablet 20 mg PO DAILY 06/16/23 06/16/23 potassium chloride 10 mEq 20 meq PO DAILY 06/16/23 06/16/23 tablet,extended release(part/cryst) (Analia Levin) Previous Rx's ?Medication ?Instructions ?Recorded apixaban 5 mg tablet (Eliquis) 5 mg PO BID 30 days #60 tabs 04/10/23 diltiazem HCl 240 mg 240 mg PO DAILY #30 caps 04/10/23 capsule,extended release 24 hr levalbuterol tartrate 45 2 inh inhalation Q4H PRN shortness 04/10/23 mcg/actuation aerosol inhaler of breath or wheezing #15 grams hydrocodone 5 mg-acetaminophen 325 1 tab PO Q6H PRN pain #12 tabs 06/04/23 mg tablet azithromycin 250 mg tablet 250 mg PO DAILY 4 days #4 tabs 06/20/23 (Zithromax) cefdinir 300 mg capsule 300 mg PO BID 10 days #20 caps 06/20/23 ipratropium 0.5 mg-albuterol 3 mg 3 ml inhalation Q4H PRN shortness 06/20/23 (2.5 mg base)/3 mL nebulization of breath or wheezing #180 mL soln metoprolol tartrate 100 mg tablet 100 mg PO BID #60 tabs 06/20/23 prednisone 10 mg tablets in a dose 10 mg PO DAILY #39 ea 06/20/23 pack cephalexin 500 mg capsule 500 mg PO Q6H 10 days #40 caps 01/29/25 doxycycline monohydrate 100 mg 100 mg PO BID 10 days #20 caps 01/29/25 capsule oxycodone-acetaminophen 5 mg-325 1 tab PO Q8H PRN pain 4 days #12 01/29/25 mg tablet (Percocet) tabs Allergies Allergy/AdvReac Type Severity Reaction Status Date / Time No Known Drug Allergies Allergy Verified 04/08/23 07:42 Opioid HPI Opioid Management Most Recent Opioid Data: Last Pain Scale 8 01/29/25, 20:59 Review of Systems ROS Narrative A ten point review of systems is negative except as noted above. [facility] Medical History (Updated 03/15/25 @ 18:48 by Storm Tsai MD) Morbid obesity ?E66.01 - Morbid (severe) obesity due to excess calories (ICD-10) Edema of both lower legs ?R60.0 - Localized edema (ICD-10) Benign essential hypertension ?I10 - Essential (primary) hypertension (ICD-10) Coronary artery disease ?I25.10 - Atherosclerotic heart disease of andreafski coronary artery without angina pectoris (ICD-10) Cellulitis ?L03.90 - Cellulitis, unspecified (ICD-10) Leukocytosis ?D72.829 - Elevated white blood cell count, unspecified (ICD-10) Asthma exacerbation ?J45.901 - Unspecified asthma with (acute) exacerbation (ICD-10) Prediabetes ?R73.03 - Prediabetes (ICD-10) Paroxysmal atrial fibrillation ?I48.0 - Paroxysmal atrial fibrillation (ICD-10) COPD (chronic obstructive pulmonary disease) ?J44.9 - Chronic obstructive pulmonary disease, unspecified (ICD-10) CATERINA (obstructive sleep apnea) ?G47.33 - Obstructive sleep apnea (adult) (pediatric) (ICD-10) Cellulitis ?L03.90 - Cellulitis, unspecified (ICD-10) Surgical History (Updated 04/08/23 @ 13:25 by Zuleyka Merritt) Hx of cholecystectomy ?Z90.49 - Acquired absence of other specified parts of digestive tract (ICD-10) H/O heart artery stent ?Z95.5 - Presence of coronary angioplasty implant and graft (ICD-10) Social History Within the past year, how often did you have a drink containing alcohol: never Score interpretation: A score less than 4 is consistent with normal alcohol consumption. Smoking status: Former smoker Little interest or pleasure in doing things: not at all Feeling down, depressed, or hopeless: not at all Exam Narrative Exam Narrative: Nurses note and vital signs reviewed and patient is not hypoxic. General:The patient appears well and in no apparent distress.Patient is resting comfortably on cart. Skin:Warm, dry, no pallor noted.There is no rash noted. Head:Normocephalic, atraumatic Eye: Normal conjunctiva, no drainage Ears, Nose, Mouth, and Throat: oral mucosa is moist. Nares patent. Cardiovascular:Regular Rate and Rhythm Respiratory: Lungs are diminished. He appears somewhat dyspneic. Breath sounds are equal with rhonchi. Back:non-tender GI: Obese and nontender Musculoskeletal: The patient has no evidence of calf tenderness, no pitting edema, symmetrical pulses noted bilaterally Neurological:A&O, normal speech Psychiatric:Cooperative Constitutional Vital Signs, click to edit/add: Last Vital Signs Temp 99.5 F 03/15/25 17:36 Pulse 99 H 03/15/25 18:30 Resp 18 03/15/25 18:30 BP 101/68 03/15/25 17:38 Pulse Ox 88 L 03/15/25 18:30 O2 Del Method Nasal Cannula 03/15/25 18:08 O2 Flow Rate 4 03/15/25 18:08 Course Vital Signs Vital signs: Vital Signs Temperature 99.5 F 03/15/25 17:36 Pulse Rate 105 H 03/15/25 17:36 Respiratory Rate 26 H 03/15/25 17:36 Blood Pressure 101/68 03/15/25 17:36 Pulse Oximetry 95 03/15/25 17:36 Oxygen Delivery Method Nasal Cannula 03/15/25 17:36 Oxygen Delivery Flow Rate 5 03/15/25 17:36 Temperature 99.5 F 03/15/25 17:36 Pulse Rate 99 H 03/15/25 18:30 Respiratory Rate 18 03/15/25 18:30 Blood Pressure 101/68 03/15/25 17:38 Pulse Oximetry 88 L 03/15/25 18:30 Oxygen Delivery Method Nasal Cannula 03/15/25 18:08 Oxygen Delivery Flow Rate 4 03/15/25 18:08 Medical Decision Making MDM Narrative Medical decision making narrative: Patient presents for what appears to be the exacerbation. He was given aerosol treatments and IV Solu-Medrol. Chest x-ray shows questionable CHF per radiologist and a BNP is ending. The patient is signed out to Dr. Arroyo at change of shift. Differential Diagnosis Differential Diagnosis: COPD, MT, pneumonia, COVID, influenza Lab Data Lab results reviewed: Yes I reviewed the patient's lab results Labs: Lab Results 03/15/25 03/15/25 Range/Units 17:44 18:00 WBC 15.8 H (4.0-11.0) 10^3/uL RBC 4.97 (4.70-6.10) 10^6/uL Hgb 15.7 (14.0-18.0) g/dL Hct 47.3 (42.0-54.0) % MCV 95.2 H (80.0-94.0) fL MCH 31.6 (25.9-34.0) pg MCHC 33.2 (29.9-35.2) g/dL RDW 12.4 (11.0-15.0) % Plt Count 285 (150-450) 10^3/uL MPV 9.9 (9.5-13.5) fL Seg Neuts % (Manual) 79.0 H (43.0-75.0) Lymphocytes % (Manual) 12.0 L (20.5-60.0) % Monocytes % (Manual) 9.0 (1.7-12.0) % Eosinophils % (Manual) 0.0 L (0.9-7.0) % Basophils % (Manual) 0.0 L (0.2-2.0) % Neutrophils # (Manual) 12.48 H (1.4-6.5) 10^3/uL Lymphocytes # (Manual) 1.89 (1.20-3.80) 10^3/uL Monocytes # (Manual) 1.42 H (0.30-0.80) 10^3/uL Eosinophils # (Manual) 0.00 (0.00-0.70) 10^3/uL Basophils # (Manual) 0.00 (0.00-0.10) 10^3/uL Sodium 137 (136-145) mmol/L Potassium 3.8 (3.5-5.1) mmol/L Chloride 97 L (98-107) mmol/L Carbon Dioxide 32.2 H (21.0-32.0) mmol/L Anion Gap 11.6 BUN 16.0 (7.0-18.0) mg/dL Creatinine 1.23 (0.70-1.30) mg/dL Est GFR ( Amer) >60 (>=60 mL/min/1.73m^2) Est GFR (Non-Af Amer) 60 (>=60 mL/min/1.73m^2) BUN/Creatinine Ratio 13.0 Glucose 141 H (74-106) mg/dL Calcium 8.8 (8.5-10.1) mg/dL Troponin I High Sens 5.4 (4.0-76.1) pg/mL Influenza Type A Ag Negative Influenza Type B Ag Negative SARS-CoV-2 Ag (CV2AG) Negative (NEGATIVE) Imaging Data Chest x-ray: Radiologist's impression: ITS Impressions Chest X-Ray 03/15/25 17:46 IMPRESSION: There is cardiomegaly with mild perihilar vascular prominence suspicious for congestive heart failure. Impression dictated by: Yazan Ratliff M.D. 03/15/2025 6:30 PM Dictation Location: [place] [address] Electronically authenticated by: [id number] Y Date: 03/15/2025 18:30 ECG Data Attestation: I personally reviewed and interpreted this ECG as follows: (KG on my interpretation shows atrial fibrillation with a rate of 110) Critical Care Time Critical Care Time Critical Care Time: Yes Total Critical Care Time: 35 Attestation: Due to the high probability of sudden and clinically significant deterioration in the patient's condition he/she required the highest level of my preparedness to intervene urgently I provided critical care time including documentation time, medication orders and management, reevaluation, vital sign assessment, ordering and reviewing of lab tests, ordering and reviewing of x-ray studies, and admission orders. Aggregate critical care time is 35 minutes including only time during which I was engaged in work directly related to his/her care and did not include time spent treating other patients simultaneously. Discharge Plan Discharge Patient Disposition: Still a Patient
--- OUTSIDE RECORDS SUMMARY | 2025-03-15 17:55 | XMS_ITS | Encounter Summary ---
Author Organization [facility] Address [address] [place] [place] [address] Care Team Providers Care Director Of Social Services Name Role Phone Eusebia Terrell [employer] Unavailable [phone] Mirza Pérez MD Primary Care Provider [phone] Unallocated, Noms Provider Primary Care Provi lindsey Mirza Pérez MD Primary Care Provider [phone] Encounter Details Date Type Department Care Team (Late st Contact Info) Description 01/21/2024 Abstract [facility] [address] [place] [address] Eusebia Terrell, [employer] [address] [place] [address] Social History Tobacco Use Types Packs/Day Years [...] as of this encounter Plan of Treatment Not on file documented as of this encounter Visit Diagnoses Not on filedocumented in this encounter Care Teams Director Of Social Services Relationship Specialty Start Date End Date Mirza Pérez MD PCP - General Family Medicine 08/14/23 04/08/24 Unallocated, Noms MD Eliseo [address] [place] [address] PCP - General Family Medicine 04/09/24 04/16/24 Mirza Pérez MD PCP - General Family Medicine 04/17/24 Eusebia Terrell NP Nurse Practitioner Family Medicine 03/18/23 documented as of this encounter
--- OUTSIDE RECORDS SUMMARY | 2025-03-15 17:55 | XMS_ITS | Encounter Summary ---
Author Organization [facility] Address [address] [place] [address] Care Team Providers Care Coach Driver Name Role Phone Eusebia Terrell NP Unavailable [phone] Mirza Pérez MD Primary Care Provider [phone] Unallocated, Noms Provider Primary Care Provi lindsey Mirza Pérez MD Primary Care Provider [phone] Reason for Visit * Reason Comments Med Refill Encounter Details Date Type Department Care Team (Late st Contact Info) Description 12/05/2023 Refill [facility]LL SCHMIT[facility] [address] [place] [address] Eusebia Terrell, HYPERION DEVELOPER [address] [facility] [address] [place] [address] Primary hypertension ; Paroxysmal atrial fibrillation (HCC) [...] fibrillation documented in this encounter Care Teams Coach Driver Relationship Specialty Start Date End Date Mirza Pérez MD PCP - General Family Medicine 08/14/23 04/08/24 Unallocated, Noms MD Eliseo [address] [place] [address] PCP - General Family Medicine 04/09/24 04/16/24 Mirza Pérez MD PCP - General Family Medicine 04/17/24 Eusebia Terrell NP Nurse Practitioner Family Medicine 03/18/23 documented as of this encounter
--- OUTSIDE RECORDS SUMMARY | 2025-03-15 17:55 | XMS_ITS | Encounter Summary ---
Author Organization [facility] Address [address] [place] [address] Care Team Providers Care Dynamometer Mechanic Name Role Phone Eusebia Terrell NP Unavailable [phone] Mirza Pérez MD Primary Care Provider [phone] Encounter Details Date Type Department Care Team (Late st Contact Info) Description 02/02/2025 Orders Only [facility] [address] [place] [address] Social History Tobacco Use Types Packs/Day Years [...] on file documented as of this encounter Procedures Procedure Name Priority Date/Time Associated Diagnosis Comments XR TIBIA FIBULA 2 VIEWS LEFT Routine 02/02/2025 1:33 PM EDT documented in this encounter Results * XR tibia fibula 2 views left (02/02/2025 1:33 PM EDT) Anatomical Region Laterality Modality Lower Extremities, Lower Leg Left Rad iographic Imaging [facility] IMG XR PROCEDURES Final Result documented in this encounter Visit Diagnoses Not on filedocumented in this encounter Additional Health Concerns Assessment Noted Time PHQ-9 Depression Total Score: 2 06/19/19 25 10:05 AM EST documented as of this encounter Care Teams Dynamometer Mechanic Relationship Specialty Start Date End Date Mirza Pérez MD PCP - General Family Medicine 04/17/24 Eusebia Terrell NP Nurse Practitioner Family Medicine 03/18/23 documented as of this encounter
--- OUTSIDE RECORDS SUMMARY | 2025-03-15 17:55 | XMS_ITS | Encounter Summary ---
Author Organization [facility] Address [address] [place] [address] Care Team Providers Care Psychosocial Rehabilitation Counselor Name Role Phone Eusebia Terrell CUBE CUTTER Unavailable [phone] Mirza Pérez MD Primary Care Provider Encounter Details Date Type Department Care Team (Late st Contact Info) Description 02/02/2025 Abstract [facility] [address] [place] [place] [address] Eusebia Terrell, GENESIS [address] [place] [address] Social History Tobacco Use Types Packs/Day Years [...] documented as of this encounter Care Teams Psychosocial Rehabilitation Counselor Relationship Specialty Start Date End Date Mirza Pérez MD PCP - General Family Medicine 04/17/24 Eusebia Terrell NP Nurse Practitioner Family Medicine 03/18/23 documented as of this encounter
--- OUTSIDE RECORDS SUMMARY | 2025-03-15 17:55 | XMS_ITS | Encounter Summary ---
Author Organization [facility] Address [address] [place] [phone] Phone Care Team Providers Care Cage Shift Manager Name Role Phone Eusebia Terrell APRN-TAR HEAT EXCHANGER CLEANER Primary Care Provider Justyn Covington MD Unavailable [phone] Encounter Details Date Type Department Care Team (Late Contact Info) Description 01/27/2019 Orders Only [facility] [address] [place] [address] Conversion, Onbase Social History Tobacco Use Types [...] Care Team (Late st Contact Info) Description 03/31/2025 2:10 PM EDT Office Visit [place] [address] [place] [address] Sonia Christian MD [address] [facility] 2, [address] [place] [address] Scheduled Orders Name Type Priority Associated Diagnoses Orde r Schedule OUTSIDE LAB SCAN Lab Ordered: 01/27/2019 documented as of this encounter Visit Diagnoses Not on filedocumented in this encounter Care Teams Cage Shift Manager Relationship Specialty Start Date End Date Eusebia Terrell APRN-TAR HEAT EXCHANGER CLEANER [address] [place] [address] PCP - General 11/04/19 Justyn Covington MD [address] [facility], [address] [id number] Electrical Test Engineer Cardiology 07/05/23 documented as of this encounter
--- OUTSIDE RECORDS SUMMARY | 2025-03-15 17:55 | XMS_ITS | Clinical Summary ---
Author Organization Charlie App tem Address [id number] [address] 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,Persist ent atrial fibrillation (CMS-HCC) TAKE 1 TABLET (10 MG TOTAL) BY MOUTH IN THE MORNING 30 tablet 11 4 Active torsemide (DEMADEX) 20 mg tabletIndication s:Chronic diastolic heart failure (CMS-HCC),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,Persist ent atrial fibrillation [...] EDT - 01/25/2025 1:57 AM EDT Emergency [facility] - Emergency [address] [place] [phone] Berry Mejia DO Lower extremity edema (Primary Dx) Discharge Disposition: Home 01/24/2025 Travel 01/02/2025 Orders Only [facility] Pulmonary/Sleep Medicine [address] [facility] [address] [place] [address] Lisa Cervantes, DO Chronic obstructive pulmonary disease, unspecified COPD type (CMS-HCC) (Primary Dx) 01/02/2025 Travel 01/02/2025 Telephone [facility] Pulmonary/Sleep Medicine [address] [place] [place] [address] Simin Das RMA from Last 3 Months [...] Info) Description 05/07/2025 11:30 AM EST Appointment [facility] - Pulmonary Function [address] [facility] [place] [address] Lisa Cervantes, DO [address] [id number] 05/21/2025 9:45 AM EST Office Visit [facility] Pulmonary/Sleep Medicine [address] [place] [address] Lisa Cervantes, DO [address] [address] Health Maintenance Due Date Last Done Comments Statin Use: Cardiovascular 1963 Depression Screening 1975 Adult BMI Follow Up [...] Tube Auto Resulted 01/25/2025 2:02 AM EDT [facility] Blood Venous blood / Unknown 01/25/2025 12:33 AM EDT 01/25/2025 12:39 AM EDT us Berry Mejia DO LAB BLOOD ORDERABLES Final R esult [facility] [address] [facility] [place] [address], * CBC auto differential (01/25/2025 12:33 AM EDT) Only the most recent of2 resultswithin the time period is included. WBC 8.7 4 - 11 x10E9/L 01/25/2025 12:48 AM EDT [facility] RBC Count 5.07 4.1 - 5.7 X10E12/L 01/25/2025 12:48 AM EDT [facility] Hemoglobin 16.0 13 - 17 g/dL 01/25/2025 12:48 AM EDT [facility] Hematocrit 47.0 39 - 50 % 01/25/2025 12:48 AM EDT [facility] MCV 93 80 - 100 fL 01/25/2025 12:48 AM EDT [facility] MCH 31.6 27 - 34 pg 01/25/2025 12:48 AM EDT [facility] MCHC 34.1 32 - 36 g/dL 01/25/2025 12:48 AM EDT [facility] RDW 13.3 11.5 - 15 % 01/25/2025 12:48 AM EDT [facility] Platelet Count 298 150 - 450 X10E9/L 01/25/2025 12:48 AM EDT [facility] MPV 8.4 7 - 12 fL 01/25/2025 12:48 AM EDT [facility] Neutrophils % 72.9 % 01/25/2025 12:48 AM EDT [facility] Lymphocytes % 15.3 % 01/25/2025 12:48 AM EDT [facility] Monocytes % 9.7 % 01/25/2025 12:48 AM EDT [facility] Eosinophils % 1.7 % 01/25/2025 12:48 AM EDT [facility] Basophils % 0.4 % 01/25/2025 12:48 AM EDT [facility] Neutrophils Absolute (A) 6.3 1.5 - 6.6 10*3/uL 01/25/2025 12:48 AM EDT [facility] Lymphocytes Absolute 1.3 1.0 - 3.5 10*3/uL 01/25/2025 12:48 AM EDT [facility] Monocytes Absolute 0.8 0.0 - 0.9 10*3/uL 01/25/2025 12:48 AM EDT [facility] Eosinophils Absolute 0.1 0.0 - 0.4 10*3/uL 01/25/2025 12:48 AM EDT [facility] Basophils Absolute 0.0 0.0 - 0.2 10*3/uL 01/25/2025 12:48 AM EDT [facility] Differential Type AUTOMATED DIFFERENTIAL 01/25/2025 12:48 AM EDT [facility] Blood Venous blood / Unknown Venipuncture / Unknown 01/25/2025 12:33 AM EDT 01/25/2025 12:39 AM EDT us Berry Mejia DO LAB BLOOD ORDERABLES Final R esult [address] [place] [address], [place] * B-type natriuretic peptide (01/25/2025 12:33 AM EDT) BNP 50 <=100 pg/mL 01/25/2025 1:08 AM EDT [facility] Blood Venous blood / Unknown Venipuncture / Unknown 01/25/2025 12:33 AM EDT 01/25/2025 12:39 AM EDT us Berry Mejia DO LAB BLOOD ORDERABLES Final R esult Performing Organization Address [facility] Co de Phone Number [address] [place] [address], [place] * (ABNORMAL) Basic Metabolic Panel (01/25/2025 12:33 AM EDT) Only the most recent of2 resultswithin the time period is included. Pathologist [facility] [place] SODIUM 137 134 - 146 mmol/L 01/25/2025 12:58 AM EDT [facility] POTASSIUM 3.9 3.5 - 5.0 mmol/L 01/25/2025 12:58 AM EDT [facility] CHLORIDE 99 98 - 109 mmol/L 01/25/2025 12:58 AM EDT [facility] CARBON DIOXIDE 29 22 - 32 mmol/L 01/25/2025 12:58 AM EDT [facility] ANION GAP 9 5 - 15 mmol/L 01/25/2025 12:58 AM EDT [facility] BLOOD UREA NITROGEN 26 5 - 27 mg/dL 01/25/2025 12:58 AM EDT [facility] CREATININE 1.31(H) 0.70 - 1.20 mg/dL 01/25/2025 12:58 AM EDT [facility] Comment:METHOD TRACEABLE TO IDMS STANDARD GLUCOSE 156(H) 65 - 99 mg/dL 01/25/2025 12:58 AM EDT [facility] CALCIUM 9.3 8.5 - 10.5 mg/dL 01/25/2025 12:58 AM EDT [facility] EGFR Non-Race Dependent 62 >=60 ml/min/1.7 3sq.m 01/25/2025 12:58 AM EDT [facility] Comment: eGFR not reported due to non-numeric value for Creatinine. Reported eGFR is based on the CKD-EPI 2020 equation that does not use a race coefficient. Blood Venous blood / Unknown Venipuncture / Unknown 01/25/2025 12:33 AM EDT 01/25/2025 12:39 AM EDT us Berry Mejia DO LAB BLOOD ORDERABLES Final R esult [facility] [address] [place] [address], from Last 3 Months Insurance [employer] [facility] COMPENSATION - GENERIC PLAN Care Teams Sample Taker Operator Relationship Specialty Start Date End Date Eusebia Terrell, FISHING MANAGER-ENVELOPE MACHINE ADJUSTER PCP - General Nurse Practitioner 08/20/23
--- OUTSIDE RECORDS SUMMARY | 2025-03-15 17:55 | XMS_ITS | Clinical Summary ---
Author Organization [facility] Address [address] [place] [address] Phone Care Team Providers Care Email Marketing Specialist Name Role Phone Eusebia Terrell APRN-FUEL CELL TECHNICIAN Primary Care Provider Justyn Covington MD Unavailable [phone] Allergies Active Allergy Reactions Criticality Noted Date [...] Diagnosed Date Atypical chest pain 10/15/2024 Old MA (myocardial infarction) 04/13/2023 Former smoker 04/13/2023 Status [...] disease with out angina pectoris 04/12/2023 04/13/2023 Family History Medical History Relation Name Comments [...] Description 03/31/2025 2:10 PM EDT Office Visit [place] [address] [place] [address] Sonia Christian MD [address] [place] [address] Health Maintenance Due Date Last Done Comments [...] 60-74 years 1-dose series) 2023 COVID-19 Vaccine ( - 2023-2 5 season) 2025 Influenza Vaccine (#1) 2025 Lipid Panel 09/17/2029 [...] ID:Not on file Type:Not on file Address: [address] [employer] Member Subscriber Plan / Payer (Ef fective 2023-Present) Name:Dmitriy Duong Relation to Subscriber:Self Name:Dmitriy Duong Payer ID:[id number] (NAIC) Group ID:Not on file Type:Not on file Address: [address] Care Teams Email Marketing Specialist Relationship Specialty Start Date End Date Eusebia Terrell, CERTIFIED JUVENILE PROBATION OFFICER-FUEL CELL TECHNICIAN [address] [place] [address] PCP - General 11/04/19 Justyn Covington MD [address] [facility] [address], [facility] [address] [place] [address] Geological Specialist Cardiology 07/05/23
--- OUTSIDE RECORDS SUMMARY | 2025-03-15 17:55 | XMS_ITS | Encounter Summary ---
Author Organization [facility] Address [address] [place] [address] Care Team Providers Care Natural Science Curator Name Role Phone Eusebia Terrell NP Unavailable [phone] Mirza Pérez MD Primary Care Provider [phone] Unallocated, Noms Provider Primary Care Provi lindsey Mirza Pérez MD Primary Care Provider [phone] Encounter Details Date Type Department Care Team (Late st Contact Info) Description 01/23/2024 Orders Only [facility] [address] [facility] [place] [address] Eusebia Terrell, PRESS CLIPPER [address] [place] [address] Social History Tobacco Use Types Packs/Day Years [...] * SCANNED LABS (01/23/2024 8:37 AM EDT) us Eusebia Terrell PRESS CLIPPER LAB CHG PERFORMABLES Final Resu lt documented in this encounter Visit Diagnoses Not on filedocumented in this encounter Care Teams Natural Science Curator Relationship Specialty Start Date End Date Mirza Pérez MD PCP - General Family Medicine 08/14/23 04/08/24 Unallocated, [facility] MD [address] [place] [address] PCP - General Family Medicine 04/09/24 04/16/24 Mirza Pérez MD PCP - General Family Medicine 04/17/24 Eusebia Terrell NP Nurse Practitioner Family Medicine 03/18/23 documented as of this encounter
--- OUTSIDE RECORDS SUMMARY | 2025-03-15 17:55 | XMS_ITS | Encounter Summary ---
Author Organization AFreezes tem Address [id number] [address] [place] [address] Care Team Providers Care Movie Star Name Role Phone Eusebia Terrell APRN-SUPPLY CHAIN DESIGN MANAGER Primary Care Provider Encounter Details Date Type Department Care Team (Late st Contact Info) Description 08/15/2022 Telephone [facility] Pulmonary/Sleep Medicine [address] [place] [address] Lisa Cervantes, DO [address] [address] Social History Tobacco Use Types Packs/Day Years [...] month? What is your first opening in [place]? * Telephone Encounter - Tari Edwards - 08/15/2022 9:52 AM EST October 19 is our first available in [place] right now * Telephone Encounter - Chasity [...] is going to have PFT done at [facility] as soon as he can get it scheduled and will call office to advise and we can see if we can move up his appointment. documented in this encounter Plan of Treatment Upcoming Encounters Date Type Department Care Team (Late st Contact Info) Description 05/07/2025 11:30 AM EST Appointment [facility] - Pulmonary Function [address] [place] [address] Lisa Cervantes, DO [address] [address] 05/21/2025 9:45 AM EST Office Visit [facility] Pulmonary/Sleep Medicine [address] [facility] [address] Lisa Cervantes, DO [address] [address] documented as of this encounter Visit Diagnoses Not on filedocumented in this encounter Care Teams Movie Star Relationship Specialty Start Date End Date Eusebia Terrell, COMMUNICATION COORDINATOR-SUPPLY CHAIN DESIGN MANAGER PCP - General Nurse Practitioner 08/20/23 documented as of this encounter
--- OUTSIDE RECORDS SUMMARY | 2025-03-15 17:55 | XMS_ITS | Encounter Summary ---
Author Organization [facility] Address [address] [place] [address] Care Team Providers Care Mix Maker Name Role Phone Eusebia Terrell NP Unavailable [phone] Mirza Pérez MD Primary Care Provider [phone] Unallocated, Noms Provider Primary Care Provi lindsey Mirza Pérez MD Primary Care Provider [phone] Encounter Details Date Type Department Care Team (Late st Contact Info) Description 10/31/2023 Orders Only [facility] [address] [place] [address] Eusebia Terrell, GENESIS [address] [place] [address] Social History Tobacco Use Types Packs/Day Years [...] (10/30/2023 2:04 PM EDT) us Eusebia Terrell TELETYPE MECHANIC LAB BLOOD ORDERABLES Final Resu lt documented in this encounter Visit Diagnoses Not on filedocumented in this encounter Care Teams Mix Maker Relationship Specialty Start Date End Date Mirza Pérez MD PCP - General Family Medicine 08/14/23 04/08/24 Unallocated, [facility] MD [address] [place] [address] PCP - General Family Medicine 04/09/24 04/16/24 Mirza Pérez MD PCP - General Family Medicine 04/17/24 Eusebia Terrell NP Nurse Practitioner Family Medicine 03/18/23 documented as of this encounter
--- OUTSIDE RECORDS SUMMARY | 2025-03-15 17:55 | XMS_ITS | Patient Health Record ---
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
--- OUTSIDE RECORDS SUMMARY | 2025-03-15 17:55 | XMS_ITS | Encounter Summary ---
Author Organization [facility] Address [id number] [address] [place] [address] Care Team Providers Care Water Gas Operator Name Role Phone SocorrofernandomaeganEusebia elizalde David GARNER-CIGAR SORTER Primary Care Provider Reason for Visit * Reason Comments Med Refill Encounter Details Date Type Department Care Team (Late st Contact Info) Description 12/28/2021 Refill [facility] General Surgery-Bariatric [address] [facility] [address] [place] [address] [place] [address] [place] [address], [address] [place] [address] Social History Tobacco Use Types [...] Info) Description 05/07/2025 11:30 AM EST Appointment [facility] - Pulmonary Function [address] [place] [address] Lisa Cervantes DO [address] [facility] [address] [place] [address] 05/21/2025 9:45 AM EST Office Visit [facility] Pulmonary/Sleep Medicine [address] [facility] [place] [address] Lisa Cervantes, DO [address] [address] documented as of this encounter Visit Diagnoses Not on filedocumented in this encounter Care Teams Water Gas Operator Relationship Specialty Start Date End Date Eusebia Terrell, COVERSTITCH ELASTIC ATTACHER-CIGAR SORTER PCP - General Nurse Practitioner 08/20/23 documented as of this encounter
--- OUTSIDE RECORDS SUMMARY | 2025-03-15 17:55 | XMS_ITS | Encounter Summary ---
Author Organization [facility] Address [id number] [address] [place] [address] Care Team Providers Care Sediment Remediation Consultant Name Role Phone Eusebia Terrell PATSY-TOP FRAME FITTER Primary Care Provider Encounter Details Date Type Department Care Team (Late Contact Info) Description 11/08/2023 Telephone [facility] Pulmonary/Sleep Medicine [address] [address] Nieves Almeida, KEHINDE Social History [...] Info) Description 05/07/2025 11:30 AM EST Appointment [facility] - Pulmonary Function [address] [place] [address] Lisa Cervantes, DO [address] [address] 05/21/2025 9:45 AM EST Office Visit [facility] [address] [facility] [address] Lisa Cervantes, DO [address] [address] documented as of this encounter Visit Diagnoses Not on filedocumented in this encounter Care Teams Sediment Remediation Consultant Relationship Specialty Start Date End Date Eusebia Terrell, REPRODUCTIVE ENDOCRINOLOGIST-TOP FRAME FITTER PCP - General Nurse Practitioner 08/20/23 documented as of this encounter
--- OUTSIDE RECORDS SUMMARY | 2025-03-15 17:56 | XMS_ITS | Encounter Summary ---
Author Organization [facility] Address [address] [place] [address] Phone Care Team Providers Care Air Marshal Name Role Phone Eusebia Terrell APRN-NASCAR PIT CREW PERSON Primary Care Provider Justyn Covington MD Unavailable [phone] Encounter Details Date Type Department Care Team (Late st Contact Info) Description 01/11/2022 Orders Only [facility] [address] [place] [address] Conversion, Onbase Social History Tobacco Use Types Packs/Day Years Used Date Smoking Tobacco: Never Assessed Sex and Gender Information Value Date Recorded Sex Assigned at Not on file Legal Sex Male 1:48 PM EST Gender Identity Not on file Sexual Orientation Not on file documented as of this encounter Functional Status * BP Answer Date of Assessment Author 136/80 01/12/2022 2:42 PM EDT Conversio n, [employer] Vitals * Pulse Answer Date of Assessment Author 66 01/12/2022 2:42 PM EDT Conversio n, [employer] Vitals * Little interest or pleasure in doing things Answer Date of Assessment Author Not at all 01/12/2022 2:42 PM EDT Conversio n, [employer] Vitals * Little interest or pleasure in doing things Answer Date of Assessment Author Not at all 01/12/2022 2:42 PM EDT Conversi on, [employer] Vitals documented as of this encounter Plan of Treatment Upcoming Encounters Date Type Department Care Team (Late st Contact Info) Description 03/31/2025 2:10 PM EDT Office Visit [place] [address] [place] [address] Sonia Christian MD [address] [facility] [address], [address] [place], [place] [address] Scheduled Orders Name Type Priority Associated Diagnoses Orde r Schedule OUTSIDE LAB SCAN Lab Ordered: 01/11/2022 documented as of this encounter Visit Diagnoses Not on filedocumented in this encounter Care Teams Air Marshal Relationship Specialty Start Date End Date Eusebia Terrell, MANAGER OF PRODUCT-NASCAR PIT CREW PERSON [address] [place] [address] PCP - General 11/04/19 Justyn Covington MD [address] [facility] Medical [facility], [address] [place] [address] Materials Technician Cardiology 07/05/23 documented as of this encounter
--- OUTSIDE RECORDS SUMMARY | 2025-03-15 17:56 | XMS_ITS | Encounter Summary ---
Author Organization [facility] Address [address] [place] [address] Care Team Providers Care Marshmallow Maker Name Role Phone Eusebia Terrell DISCHARGE COORDINATOR Unavailable [phone] Mirza Pérez MD Primary Care Provider [phone] Mirza Pérez MD Primary Care Provider [phone] Unallocated, Noms Provider Primary Care Provi lindsey Mirza Pérez MD Primary Care Provider [phone] Encounter Details Date Type Department Care Team (Late st Contact Info) Description 06/06/2023 Abstract [facility] [address] [place] [address] Eusebia Terrell, DISCHARGE COORDINATOR [address] [place] [address] Social History Tobacco Use Types Packs/Day Years [...] on filedocumented in this encounter Care Teams Marshmallow Maker Relationship Specialty Start Date End Date Mirza Pérez MD PCP - General Family Medicine 06/05/23 08/13/23 Mirza Pérez MD PCP - General Family Medicine 08/14/23 04/08/24 Unallocated, Kok[facility] MD [address]ise[address] [place] [address] PCP - General Family Medicine 04/09/24 04/16/24 Mirza Pérez MD PCP - General Family Medicine 04/17/24 Eusebia Terrell NP Nurse Practitioner Family Medicine 03/18/23 documented as of this encounter
--- OUTSIDE RECORDS SUMMARY | 2025-03-15 17:56 | XMS_ITS | Encounter Summary ---
Author Organization [facility] tem Address [facility] [place][id number] [address] [place] [address] Care Team Providers Care High School Art Teacher Name Role Phone SocorroEusebia rodriguez David GARNER-ELECTRONIC SECURITY SPECIALIST Primary Care Provider Encounter Details Date Type Department Care Team (Late st Contact Info) Description 09/21/2023 Telephone [facility] Physicians Cardiology [address] [place] [address] Yolanda Willis CNA Social History Tobacco Use [...] 05/07/2025 11:30 AM EST Appointment [facility] - Pulmonary Function [address] [place] [address] Lisa Cervantes, DO [address] [address] 05/21/2025 9:45 AM EST Office Visit [facility] Pulmonary/Sleep Medicine [address] [place] [place] [address] Lisa Cervantes, DO [address] [address] documented as of this encounter Visit Diagnoses Not on filedocumented in this encounter Care Teams High School Art Teacher Relationship Specialty Start Date End Date Eusebia Terrell, NEWSPAPER PUBLISHER-ELECTRONIC SECURITY SPECIALIST PCP - General Nurse Practitioner 08/20/23 documented as of this encounter
--- OUTSIDE RECORDS SUMMARY | 2025-03-15 17:56 | XMS_ITS | Encounter Summary ---
Author Organization [facility] Address [address] [place] [phone] Phone Care Team Providers Care It Senior Analyst Name Role Phone Eusebia Terrell APRN-JOINT MACHINE OPERATOR Primary Care Provider Justyn Covington MD Unavailable [phone] Encounter Details Date Type Department Care Team (Late Contact Info) Description 03/16/2021 Orders Only [facility] [address] [place] [address] Conversion, Onbase Social History Tobacco Use Types Packs/Day Years Used Date Smoking Tobacco: Never Assessed Sex and Gender Information Value Date Recorded Sex Assigned at Not on file Legal Sex Male 1:48 PM EST Gender Identity Not on file Sexual Orientation Not on file documented as of this encounter Plan of Treatment Upcoming Encounters Date Type Department Care Team (Late Contact Info) Description 03/31/2025 2:10 PM EDT Office Visit [address] [place] [address] Sonia Christian MD 703 [facility] 2, [address] [place] [address] Scheduled Orders Name Type Priority Associated Diagnoses Orde r Schedule SLEEP STUDY ORDER - ONBASE SCAN Sleep Center Ordered: 021 documented as of this encounter Visit Diagnoses Not on filedocumented in this encounter Care Teams It Senior Analyst Relationship Specialty Start Date End Date Eusebia Terrell APRN-JOINT MACHINE OPERATOR [address] [place] [address] PCP - General 11/04/19 Justyn Covington MD [address] [facility], [address] [address] Household Chores Cardiology 07/05/23 documented as of this encounter
--- OUTSIDE RECORDS SUMMARY | 2025-03-15 17:56 | XMS_ITS | Patient Health Record ---
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 Called pt and informed him of referral and to give them a call in 3 days to schedule. Pt said he was going to try to find an oral surgeon who is closer., Sarah Balbuena 08/25/2024 05:41:09 PM >1st attempt to contact pt, voicemail not set up, Ivanna Miller 09/10/2024 08:44:03 AM >[facility] Oral Surgery asking for referral and xrays. Pt is going there [facility] of [facility] Sarah Balbuena 09/22/2024 06:09:27 PM >Referral emailed to [facility] Oral Surgery on 09/10/24, Sarah Balbuena 09/30/2024 [...] body mass index for improved overall health. Plan Of Treatment No Information Insurance Providers Payer Name Payer Address Payer Phone Subscriber Number Group Number Insured Name Patient Relationship to Insured Coverage Start Date Coverage End Date DAmerihe alth Dentaque [facility] [place] [address] [place] [address] [id number] Dmitriy Duong Self - patient is the insured 4 DMedicai d [employer] after Amerihea lthDenta quest [address] [place], [place] [id number] Dmitriy Duong Self - patient is the insured 4
--- OUTSIDE RECORDS SUMMARY | 2025-03-15 17:56 | XMS_ITS | Encounter Summary ---
Author Organization [employer] [facility] tem Address [facility] [id number] [address] [place] [address] Care Team Providers Care Jewelry Salesperson Name Role Phone Eusebia Terrell PATSY-OCCASIONAL CAREGIVER Primary Care Provider Encounter Details Date Type Department Care Team (Late st Contact Info) Description 08/11/2022 Orders Only [facility] Pulmonary/Sleep Medicine [address] [place] [address] Ref Prov, [place] [address] Social History Tobacco Use Types Packs/Day Years [...] 05/07/2025 11:30 AM EST Appointment [facility] - Pulmonary Function [address] [place] [address] Lisa Cervantes, DO [address] [address] 05/21/2025 9:45 AM EST Office Visit [facility] Pulmonary/Sleep Medicine [address] [place] [address] Lisa Cervantes, DO [address] [address] documented as of this encounter Procedures Procedure Name Priority Date/Time Associated Diagnosis Comments PULMONARY FUNCTION TEST Routine 08/11/2022 11:41 AM EST documented in this encounter Visit Diagnoses Not on filedocumented in this encounter Care Teams Jewelry Salesperson Relationship Specialty Start Date End Date Eusebia Terrell, ORGAN TUNER ELECTRONIC-OCCASIONAL CAREGIVER PCP - General Nurse Practitioner 08/20/23 documented as of this encounter
--- OUTSIDE RECORDS SUMMARY | 2025-03-15 17:56 | XMS_ITS | Encounter Summary ---
Author Organization [employer] [facility] tem Address [facility] [place][id number] [address] [place] [address] Care Team Providers Care Cleaning Handyman Name Role Phone SocorrofernandomaeganEusebia elizalde David WATSONN-BUTCHER HEAD Primary Care Provider Encounter Details Date Type Department Care Team (Late st Contact Info) Description 09/21/2022 Orders Only [facility] Pulmonary/Sleep Medicine [address] [facility] [place] [address] Ref Prov, [place] [address] Social History Tobacco Use Types Packs/Day Years [...] Info) Description 05/07/2025 11:30 AM EST Appointment [facility] - Pulmonary Function [address] [place] [address] Lisa Cervantes, DO [address] [address] 05/21/2025 9:45 AM EST [facility] [address] [address] [address] [place] [address] Lisa Cervantes, DO [address] [address] documented as of this encounter Procedures Procedure Name Priority Date/Time Associated Diagnosis Comments SPLIT NIGHT SLEEP STUDY Routine 09/21/2022 2:28 PM EDT documented in this encounter Visit Diagnoses Not on filedocumented in this encounter Care Teams Cleaning Handyman Relationship Specialty Start Date End Date Eusebia Terrell, ELECTRONIC TEST TECHNICIAN-BUTCHER HEAD PCP - General Nurse Practitioner 08/20/23 documented as of this encounter
--- OUTSIDE RECORDS SUMMARY | 2025-03-15 17:56 | XMS_ITS | Encounter Summary ---
Author Organization [facility] Address [address] [facility] [place] [address] Care Team Providers Care Filling Technician Name Role Phone Eusebia Terrell NP Unavailable [phone] Mirza Pérez MD Primary Care Provider [phone] Mirza Pérez MD Primary Care Provider [phone] Unallocated, Noms Provider Primary Care Provi lindsey Mirza Pérez MD Primary Care Provider [phone] Encounter Details Date Type Department Care Team [...] AM EST Narrative 05/24/2023 1:44 AM EST The [address] [address] Magnetic Resonance Report Signed Patient: ELYSE DUONG MR#: [id number] : 1965 Acct:[id number] Age/Sex: 57 / M ADM Date: 05/23/23 Loc: MRI Attending Dr: Lilly Santos Ordering Physician: Lilly Santos Date of Service: 05/23/23 Procedure(s): MR knee RT wo con Accession Number(s): [id number] cc: Eusebia Terrell JIG AND FIXTURE BUILDER APPRENTICE; Lilly Santos [place] [address] Patient Name: ELYSE DUONG MRN: [id number] date: 1965 Sex: M Assigned Patient Location: MRI Current Patient Location: Accession/Order Number: [id number] Exam Date: 05/23/2023 13:10 Report Date: 05/24/2023 [...] Dictated By: Yuan Kitchen M.D. Signed By: 05/24/23 0144 DD/ 9 TD/TT: Electronic Gluing Machine Operator: Procedure Note Radiology, Radiologist, MD - 05/24/2023 [place] [address] Magnetic Resonance Report Signed Patient: ELYSE DUONG AMR#: [id number] : 1965Acct:[id number] Age/Sex: 57 / MADM Date: 05/23/23 Loc: MRI Attending Dr: Lilly Santos Ordering Physician: Lilly Santos Date of Service: 05/23/23 Procedure(s): MR knee RT wo con Accession Number(s): [id number] cc: Eusebia Terrell JIG AND FIXTURE BUILDER APPRENTICE; Lilly Santos [place] [address] Patient Name: ELYSE DUONG MRN: [facility]:[id number] date: 1965 Sex: M Assigned Patient Location: MRI Current Patient Location: Accession/Order Number: [id number] Exam Date: 05/23/2023 13:10 Report Date: 05/24/2023 [...] Kitchen M.D. Signed By:05/24/23143 DD/ 9 TD/TT: Electronic Gluing Machine Operator: us Generic External Data Provider [facility] Final Result documented in this encounter Visit Diagnoses Not on filedocumented in this encounter Care Teams Filling Technician Relationship Specialty Start Date End Date Mirza Pérze MD PCP - General Family Medicine 06/05/23 08/13/23 Mirza Pérez MD PCP - General Family Medicine 08/14/23 04/08/24 Unallocated, Noms Provider, [address] [place] [address] PCP - General Family Medicine 04/09/24 04/16/24 Mirza Pérez MD PCP - General Family Medicine 04/17/24 Eusebia Terrell NP Nurse Practitioner Family Medicine 03/18/23 documented as of this encounter
--- OUTSIDE RECORDS SUMMARY | 2025-03-15 17:56 | XMS_ITS | Encounter Summary ---
Author Organization [employer] tem Address [facility] [id number] [address] [place] [address] Care Team Providers Care Hand Glass Cutter Name Role Phone Blossom Terrella David WATSONN-FOOT ORTHOPEDIST Primary Care Provider Encounter Details Date Type Department Care Team (Late st Contact Info) Description 09/20/2022 Orders Only [facility] Pulmonary/Sleep Medicine [address] [place] [address] Ivanna Lee LPN SOB (shortness of breath) [...] Info) Description 05/07/2025 11:30 AM EST Appointment [facility] - Pulmonary Function [address] [place] [address] Lisa Cervantes, DO [address] [address] 05/21/2025 9:45 AM EST [facility] [address] [address] Lisa Cervantes, DO [address] [address] documented as of this encounter Procedures Procedure [...] breath documented in this encounter Care Teams Hand Glass Cutter Relationship Specialty Start Date End Date Eusebia Terrell, PATIENT CARE SPECIALIST-FOOT ORTHOPEDIST PCP - General Nurse Practitioner 08/20/23 documented as of this encounter
--- OUTSIDE RECORDS SUMMARY | 2025-03-15 17:56 | XMS_ITS | Encounter Summary ---
Author Organization [facility] Address [address] [place] [address] Care Team Providers Care Traveling Sales Representative Name Role Phone Eusebia Terrell NP Unavailable [phone] Mirza Pérez MD Primary Care Provider [phone] Encounter Details Date Type Department Care Team (Late st Contact Info) Description 09/17/2024 Orders Only [facility] [address] [place] [address] Eusebia Terrell, DIRECTOR OF SAFETY [address] [place] [address] Social History Tobacco Use Types Packs/Day Years [...] obtained by clean catch procedure / Unknown us Eusebia Terrell DIRECTOR OF SAFETY LAB URINE ORDERABLES Final Resu lt documented in this encounter Visit Diagnoses Not on filedocumented in this encounter Additional Health Concerns Assessment Noted Time PHQ-9 Depression Total Score: 2 06/19/19 25 10:05 AM EST documented as of this encounter Care Teams Traveling Sales Representative Relationship Specialty Start Date End Date Mirza Pérez MD PCP - General Family Medicine 04/17/24 Eusebia Terrell NP Nurse Practitioner Family Medicine 03/18/23 documented as of this encounter
--- OUTSIDE RECORDS SUMMARY | 2025-03-15 17:56 | XMS_ITS | Encounter Summary ---
Author Organization [facility] Address [address] [place] [address] Care Team Providers Care Surface Grinder Tender Name Role Phone Eusebia Terrell NP Unavailable [phone] Mirza Pérez MD Primary Care Provider [phone] Reason for Visit * Reason Onset Date Comments Med Refill Medication Question 12/02/2024 Encounter Details Date Type Department Care Team (Late st Contact Info) Description 12/02/2024 Refill [facility] [address] [place] [address] Eusebia Terrell NP [address] [place] [address] Atrial fibrillation, unspecified type (HCC) Social History [...] them [place] * Telephone Encounter - Olga Victor - 12/02/2024 9:15 AM EDT Patient called saying he had called about getting his water pill refilled, and he has not gotten that or a call back. He wasn't sure on the name of the pill. JN documented in this encounter Plan of Treatment Not on file documented as of this encounter Visit Diagnoses Diagnosis Atrial fibrillation, unspecified type (HCC) documented in this encounter Additional Health Concerns Assessment Noted Time PHQ-9 Depression Total Score: 2 06/19/19 25 10:05 AM EST documented as of this encounter Care Teams Surface Grinder Tender Relationship Specialty Start Date End Date Mirza Pérez MD PCP - General Family Medicine 04/17/24 Eusebia Terrell NP Nurse Practitioner Family Medicine 03/18/23 documented as of this encounter
--- OUTSIDE RECORDS SUMMARY | 2025-03-15 17:56 | XMS_ITS | Encounter Summary ---
Author Organization [facility] Address [address] [place] [id number] Phone Care Team Providers Care Senior National Account Manager Name Role Phone Eusebia Terrell APRN-TERRITORY ACCOUNT MANAGER Primary Care Provider Justyn Covington MD Unavailable [phone] Encounter Details Date Type Department Care Team (Late Contact Info) Description 11/06/2021 Orders Only [facility] [address] [place] [address] Conversion, Onbase Social History Tobacco Use Types [...] Description 03/31/2025 2:10 PM EDT Office Visit [place] [address] [place] [address] Sonia Christian MD 703 [facility] 2, [address] [place] [address] Scheduled Orders Name Type Priority Associated Diagnoses Orde r Schedule OUTSIDE LAB SCAN Lab Ordered: 11/06/2021 documented as of this encounter Visit Diagnoses Not on filedocumented in this encounter Care Teams Senior National Account Manager Relationship Specialty Start Date End Date Eusebia Terrell APRN-TERRITORY ACCOUNT MANAGER [address] [place] [address] PCP - General 11/04/19 Justyn Covington MD [address] [facility] Office [facility], [address] [address] Federal Mediation Commissioner Cardiology 07/05/23 documented as of this encounter
--- OUTSIDE RECORDS SUMMARY | 2025-03-15 17:56 | XMS_ITS | Encounter Summary ---
Author Organization [employer] [facility] tem Address [facility] [id number] [address] [place] [address] Care Team Providers Care Finishing Powder Press Operator Name Role Phone Eusebia Terrell APRNNATALIA Primary Care Provider Encounter Details Date Type Department Care Team (Late st Contact Info) Description 04/30/2023 Telephone [facility] Pulmonary/Sleep Medicine [address] [address] Nieves Almeida RN Social History [...] with several pauses and report of SOB. Director Blood Bank asked Matilde if oxygen was ordered. Was told no, Eusebia Villafana has not seen results yet d/tnot in office today. Eusebia returning tomorrow and will be given results then and will discuss ordering oxygen. Director Blood Bank informed Matilde, can see patient in our [place] office on 05-03-23 at 8:[address] Cervantes. Matilde agreeable and will contact patient. documented in this encounter Plan of Treatment Upcoming Encounters Date Type Department Care Team (Late st Contact Info) Description 05/07/2025 11:30 AM EST Appointment [facility] - Pulmonary Function [address] [place] [address] Lisa Cervantes, DO [address] [address] 05/21/2025 9:45 AM EST Office Visit [facility] Pulmonary/Sleep Medicine [facility] [place] [address] Lisa Cervantes, DO [address] [address] documented as of this encounter Visit Diagnoses Not on filedocumented in this encounter Care Teams Finishing Powder Press Operator Relationship Specialty Start Date End Date Eusebia Terrell, HYDROPULPER OPERATOR-BRAND [employer]ADORS PROMOTIONAL SALES PCP - General Nurse Practitioner 08/20/23 documented as of this encounter
--- OUTSIDE RECORDS SUMMARY | 2025-03-15 17:56 | XMS_ITS | Encounter Summary ---
Author Organization [facility] Address [address] [place] [phone] Phone Care Team Providers Care Party Plan Dealer Name Role Phone Eusebia Terrell APRN-LAW LIBRARIAN Primary Care Provider Justyn Covington MD Unavailable [phone] Encounter Details Date Type Department Care Team (Late Contact Info) Description 02/04/2022 Orders Only [facility] [address] [place] [address] Conversion, Onbase Social History Tobacco Use Types [...] Description 03/31/2025 2:10 PM EDT Office Visit [place] [address] [place] [address] Sonia Christian MD 7[address] [facility] 2, [address] [place] [address] Scheduled Orders Name Type Priority Associated Diagnoses Orde r Schedule OUTSIDE LAB SCAN Lab Ordered: 02/04/2022 documented as of this encounter Visit Diagnoses Not on filedocumented in this encounter Care Teams Party Plan Dealer Relationship Specialty Start Date End Date Eusebia Terrell APRN-LAW LIBRARIAN [address] [place] [address] PCP - General 11/04/19 Justyn Covington MD [address] [facility] Office [facility], [address] [address] Compliance Representative Cardiology 07/05/23 documented as of this encounter
--- OUTSIDE RECORDS SUMMARY | 2025-03-15 17:56 | XMS_ITS | Encounter Summary ---
Author Organization [facility] Address [address] [place] [address] Care Team Providers Care Respiratory Therapy Aide Name Role Phone Eusebia Terrell DIRECTOR OPERATING Unavailable [phone] Mirza Pérez MD Primary Care Provider [phone] Mirza Pérez MD Primary Care Provider [phone] Unallocated, Noms Provider Primary Care Provi lindsey Mirza Pérez MD Primary Care Provider [phone] Encounter Details Date Type Department Care Team (Late st Contact Info) Description 06/13/2023 Abstract [facility] [address] [place] [address] Eusebia Terrell, DIRECTOR OPERATING [address] [place] [address] Social History Tobacco Use Types Packs/Day Years [...] on filedocumented in this encounter Care Teams Respiratory Therapy Aide Relationship Specialty Start Date End Date Mirza Pérez MD PCP - General Family Medicine 06/05/23 08/13/23 Mirza Pérez MD PCP - General Family Medicine 08/14/23 04/08/24 Unallocated, Noms MD [address] [place] [address] PCP - General Family Medicine 04/09/24 04/16/24 Mirza Pérez MD PCP - General Family Medicine 04/17/24 Eusebia Terrell NP Nurse Practitioner Family Medicine 03/18/23 documented as of this encounter
--- OUTSIDE RECORDS SUMMARY | 2025-03-15 17:56 | XMS_ITS | Encounter Summary ---
Author Organization [facility] Address [address] [place] [id number] Phone Care Team Providers Care Manager Data Warehouse Name Role Phone Eusebia Terrell APRN-EQUAL EMPLOYMENT OPPORTUNITY OFFICER Primary Care Provider Justyn Covington MD Unavailable [phone] Encounter Details Date Type Department Care Team (Late Contact Info) Description 05/09/2019 Orders Only [facility] [address] [place] [address] Conversion, Onbase Social History Tobacco Use Types [...] Description 03/31/2025 2:10 PM EDT Office Visit [place] [address] [place] [address] Sonia Christian MD 703 [facility] 2, [address] [place] [address] Scheduled Orders Name Type Priority Associated Diagnoses Orde r Schedule OUTSIDE LAB SCAN Lab Ordered: 05/09/2019 documented as of this encounter Visit Diagnoses Not on filedocumented in this encounter Care Teams Manager Data Warehouse Relationship Specialty Start Date End Date Eusebia Terrell APRN-EQUAL EMPLOYMENT OPPORTUNITY OFFICER [address] [place] [address] PCP - General 11/04/19 Justyn Covington MD [address] [facility], [address] [id number] Wooden Tank Erector Cardiology 07/05/23 documented as of this encounter
--- OUTSIDE RECORDS SUMMARY | 2025-03-15 17:56 | XMS_ITS | Encounter Summary ---
Author Organization [facility] [employer] [facility] tem Address [facility] [place][id number] [address] [place] [address] Care Team Providers Care Occupational Health Nurse Manager Name Role Phone Eusebia Terrell PATSY-CANDY COOKER HELPER Primary Care Provider Encounter Details Date Type Department Care Team (Late st Contact Info) Description 07/25/2023 Orders Only [facility] Physicians Cardiology [address] [place] [address] External, Scanning Provider Social History [...] Info) Description 05/07/2025 11:30 AM EST Appointment [facility] - Pulmonary Function [address] [place] [address] Lisa Cervantes, DO [address] [address] 05/21/2025 9:45 AM EST Office Visit [facility]Sleep Medicine [address] [facility] [place] [address] Lisa Cervantes, DO [address] [address] documented as of this encounter Procedures Procedure Name Priority Date/Time Associated Diagnosis Comments H-CARDIAC CATHETERIZATION Routine 07/25/2023 10:24 AM EST documented in this encounter Results * Cardiac catheterization (07/25/2023 10:24 AM EST) Anatomical Region Laterality Modality Other us Scanning Provider External CV CARDIAC CATH ORDER SOLOMON Final Result documented in this encounter Visit Diagnoses Not on filedocumented in this encounter Care Teams Occupational Health Nurse Manager Relationship Specialty Start Date End Date Eusebia Terrell, BLENDER OPERATOR-CANDY COOKER HELPER PCP - General Nurse Practitioner 08/20/23 documented as of this encounter
--- OUTSIDE RECORDS SUMMARY | 2025-03-15 17:56 | XMS_ITS | Clinical Summary ---
Author Organization [facility] Healthcare Address [address] [place] [address] Care Team Providers Care Mobile Application Engineer Name Role Phone Eusebia Terrell NP Unavailable [phone] Mirza Pérez MD Primary Care Provider [phone] Allergies Active Allergy Reactions Criticality Noted Date [...] breath 15 g 1 07/30/19 25 Active atorvastatin (Lipitor) 40 MG tabletIndication s:Hyperlipidemia , unspecified Take 1 tablet (40 mg) by mouth at bedtime 90 tablet 1 12/23/19 25 10/05/2 025 Active dapagliflozin (Farxiga) 10 MGIndications:Pr e-diabetes,Chron [...] Take 25 mg by mouth Daily 01/25/20 Active apixaban (Eliquis) 5 MG tabletIndication s:Atrial [...] tablet (50 mg) before bedtime. 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 in [place] [phone] at 11:50am regarding getting this oxygen script [...] atb Most likely related excess fluid Reviewed [facility] ER notes Warm moist compress , elevated legs Arrhythmia 05/25/2023 Assessment & Plan (02/02/2025 3:15 PM EDT): Continue with cardiology and eliquis and current meds Assessment & Plan (02/06/2024 9:38 AM EDT): Continue with cardiology and eliquis and current meds Assessment & Plan (07/19/2023 12:48 PM EST): Has appt with new utility worker forge next week Cont b preet, anti coagulation, [...] LE edema Needs to call his aircraft pneudraulic systems mechanic Assessment & Plan (07/19/2023 12:43 PM EST): Non complaint with PAP use Explained to pt why important to wear for heart failure, afib, and copd, will also help his LE edema Needs to call his aircraft pneudraulic systems mechanic Former smoker 04/13/2023 Status post ablation of [...] [place], as this is also where his aircraft pneudraulic systems mechanic is as well Cont blood thinners as [...] and prn Coronary artery disease invo lving craig coronary artery of craig heart without angina pectoris 09/21/2022 Assessment & [...] coagulation Recommend PAP use Fu with new utility worker forge next week Pneumonia of both lungs due to infectious organism 06/28/2023 07/19/2023 Assessment & Plan (06/28/2023 11:58 AM EST): Finish atbs Fu in 2 weeks Hyperlipidemia 04/12/2023 12/24/2023 Morbid obesity 03/20/2014 05/06/2024 Old CA (myocardial infarction) 03/20/2014 07/19/2023 Pure hypercholesterolemia 03/20/2014 Encounters Date Type Department Care Team Description 02/09/2025 Clinisync Result Encounter [facility] External Department Unsolicited Eusebia Terrell NP 02/02/2025 2:40 PM EDT Office Visit [facility] [address] [address] Eusebia Terrell NP Bilateral lower leg cellulitis (Primary Dx); Venous insufficiency of both lower extremities; Primary hypertension ; Paroxysmal atrial fibrillation (HCC); Atrial fibrillation, unspecified type (HCC); Chronic obstructive pulmonary disease, unspecified COPD type (HCC); Thyroid nodule ; Bilateral lower extremity edema; Class 3 severe obesity due to excess calories with serious comorbidity and body mass index (BMI) of 50.0 to 59.9 in adult ([facility]) 02/02/2025 Abstract [facility] [address] [address] Eusebia Terrell NP 02/02/2025 Orders Only [facility] [address] [place] [address] 01/05/2025 Telephone [facility] [address] [place] [address] Eusebia Terrell NP 01/02/2025 External Result Encounter [facility] External Department Unsolicited Eusebia Terrell NP 12/22/2024 2:20 PM EDT Office Visit [facility] [address] [place] [address] Eusebia Terrell NP Primary hypertension (Primary Dx); CATERINA (obstructive sleep apnea); Chronic diastolic (congestive) heart failure (HCC); Coronary artery disease involving craig coronary artery of craig heart without angina pectoris ; Paroxysmal atrial fibrillation (HCC); Bilateral lower extremity edema; Class 3 severe obesity due to excess calories with serious comorbidity and body mass index (BMI) of 50.0 to 59.9 in adult ([facility]); Pre-diabetes; Thyroid nodule ; Pulmonary emphysema, unspecified emphysema type (HCC); Moderate persistent asthma without complication (HCC); Hyperlipidemia, unspecified ; Chronic diastolic heart failure (HCC); Atrial fibrillation, unspecified type (HCC) 12/22/2024 [employer] flowsheet [facility] [address] [place] [address] Eusebia Terrell NP from Last 3 Months [...] 06/19/2024 9:57 AM EST Plan of Treatment Health Maintenance Due Date Last Done Comments CT Colonography 1965 FIT-DNA 1965 FIT 1965 FOBT 1965 Sigmoidoscopy 1965 Colonoscopy 05/28/2027 05/28/2017 Colorectal Cancer Screening 05/28/2027 Influenza Vaccine Discontinued Procedures Procedure Name Priority Date/Time Associated Diagnosis Comments ALL BASIC METABOLIC PANEL Routine 02/09/2025 10:36 AM EDT XR TIBIA FIBULA 2 VIEWS LEFT Routine 02/02/2025 1:33 PM EDT BASIC METABOLIC PANEL Routine 01/02/2025 9:52 AM EDT CBC WITH AUTO DIFFERENTIAL Routine 01/02/2025 9:52 AM EDT from Last 3 Months Results * (ABNORMAL) ALL BASIC METABOLIC PANEL (02/09/2025 10:36 AM EDT) SODIUM 141 136 - 145 mmol/L [facility] POTASSIUM 4.1 3.5 - 5.1 mmol/L [facility] CHLORIDE 102 98 - 107 mmol/L [facility] CARBON DIOXIDE 27.9 21.0 - 32.0 mmol/L [facility] ANION GAP 15.2 [facility] GLUCOSE 120(H) 74 - 106 mg/dL [facility] BLOOD UREA NITROGEN 23.0(H) 7.0 - 18.0 mg/dL [facility] CREATININE 1.41(H) 0.70 - 1.30 mg/dL [facility] EGFR-AF DANISH >60 >=60 mL/min/1.7 3m 2 TB[facility] EGFR-NON AF DANISH 51(L) >=60 mL/min/1.7 3m 2 [facility] BUN CREATININE RATIO 16.3 [facility] CALCIUM 8.8 8.5 - 10.1 mg/dL [facility] 02/09/2025 10:3 6 AM EDT 02/09/2025 10:39 AM EDT Narrative [facility] - 02/09/2025 11:46 AM EDT us Eusebia Terrell NP [facility] Final Result [facility] * XR tibia fibula 2 views left (02/02/2025 1:33 PM EDT) Anatomical Region Laterality Modality Lower Extremities, Lower Leg Left Rad iographic Imaging [facility] IMG XR PROCEDURES Final Result * (ABNORMAL) [...] TYPE AUTOMATED DIFFERENTIAL [facility] Comment: PERFORMED AT [facility] [address],[place] [address] 01/02/2025 9:52 AM EDT 01/02/2025 12:52 PM EDT Eusebia Terrell ASSOCIATE PROFESSOR OF FORESTRY LAB BLOOD ORDERABLES Final Resu lt [facility] * (ABNORMAL) Basic metabolic panel (01/02/2025 9:52 AM EDT) Sodium 135 134 - 146 mmol/L [facility] [...] not use a race coefficient. PERFORMED AT [facility] [address],[place] [address] 01/02/2025 9:52 AM EDT 01/02/2025 12:52 PM EDT us Eusebia Terrell ASSOCIATE PROFESSOR OF FORESTRY LAB BLOOD ORDERABLES Final Resu lt [facility] from Last 3 Months Insurance [facility] Care Teams Mobile Application Engineer Relationship Specialty Start Date End Date Mirza Pérez MD PCP - General Family Medicine 04/17/24 Eusebia Terrell NP Nurse Practitioner Family Medicine 03/18/23
--- OUTSIDE RECORDS SUMMARY | 2025-03-15 17:56 | XMS_ITS | Encounter Summary ---
Author Organization [facility] tem Address [id number] [address] [place] [address] Care Team Providers Care Account Maintenance Representative Name Role Phone Eusebia Terrell [facility] Primary Care Provider Encounter Details Date Type Department Care Team ([facility] Contact Info) Description 04/30/2023 Orders Only [facility] Pulmonary/Sleep Medicine [address] [phone] Eusebia Terrell, [facility] [address] [place] [address] Social History Tobacco Use Types Packs/Day Years [...] Info) Description 05/07/2025 11:30 AM EST Appointment [facility] - Pulmonary Function [address] [place] [address] Lisa Cervantes, DO [address] [address] 05/21/2025 9:45 AM EST [facility] [address] [place] [phone] Lisa Cervantes, DO [address] [address] documented as of this encounter Procedures Procedure Name Priority Date/Time Associated Diagnosis Comments SIX MINUTE WALK Routine 04/26/2023 4:20 PM EST documented in this encounter Results * Six minute walk (04/26/2023 4:20 PM EST) us Eusebia Terrell APRN-TUCKPOINTER RESPIRATORY CARE ORDERA BLES Final Result MANUALLY TRANSCRIBED RESULTS documented in this encounter Visit Diagnoses Not on filedocumented in this encounter Care Teams Account Maintenance Representative Relationship Specialty Start Date End Date Eusebia Terrell APRN-CNP PCP - General Nurse Practitioner 08/20/23 documented as of this encounter
--- OUTSIDE RECORDS SUMMARY | 2025-03-15 17:56 | XMS_ITS | Encounter Summary ---
Author Organization [facility] Address [address] [place] [phone] Phone Care Team Providers Care Curb Worker Name Role Phone Eusebia Terrell APRN-OPERATIONS WELDER Primary Care Provider Justyn Covington MD Unavailable [phone] Encounter Details Date Type Department Care Team (Late Contact Info) Description 04/01/2021 Orders Only [facility] [address] [place] [address] Conversion, Onbase Social History Tobacco Use Types [...] Description 03/31/2025 2:10 PM EDT Office Visit [place] [address] [place] [address] Sonia Christian MD [address] [facility] [address], [address] [place] [address] Scheduled Orders Name Type Priority Associated Diagnoses Orde r Schedule OUTSIDE LAB SCAN Lab Ordered: 04/01/2021 documented as of this encounter Visit Diagnoses Not on filedocumented in this encounter Care Teams Curb Worker Relationship Specialty Start Date End Date Eusebia Terrell APRN-OPERATIONS WELDER [address] [place] [address] PCP - General 11/04/19 Justyn Covington MD [address] [facility] Office [facility], [address] [address] [facility] 07/05/23 documented as of this encounter
--- OUTSIDE RECORDS SUMMARY | 2025-03-15 17:56 | XMS_ITS | Encounter Summary ---
Author Organization [facility] Address [address] [place] [address] Care Team Providers Care Flexographic Printing Machinist Name Role Phone Eusebia Terrell NP Unavailable [phone] Mirza Pérez MD Primary Care Provider [phone] Mirza Pérez MD Primary Care Provider [phone] Unallocated, [facility] Provider Primary Care Provi lindsey Mirza Pérez MD Primary Care Provider [phone] Encounter Details Date Type Department Care Team [...] AM EST Narrative 08/07/2023 10:08 [place] [address] XRay Report Signed Patient: ELYSE DUONG MR#: [id number] : 1965 Acct:[id number] Age/Sex: 58 / M ADM Date: 08/06/23 Loc: EC Attending Dr: Yuan Grimm M.D. Ordering Physician: Yuan Grimm M.D. Date of Service: 08/06/23 Procedure(s): XR knee RT 4V Accession Number(s): [id number] cc: Eusebia Terrell NP; Yuan Grimm M.D. [place] [address] Patient Name: ELYSE DUONG MRN: [id number] date: 1965 Sex: M Assigned Patient Location: EC Current Patient Location: Accession/Order Number: [id number] Exam Date: 08/06/2023 11:15 Report Date: 08/07/2023 [...] Finley M.D. Signed By: 08/07/23 1008 DD/ 1004 TD/TT: Pallet Rectifier: Procedure Note Radiology, Radiologist, - 08/07/2023 [place] [address] XRay Report Signed Patient: ELYSE DUONG AMR#: [id number] : 1965Acct:[id number] Age/Sex: 58 / MADM Date: 08/06/23 Loc: EC Attending Dr: Yuan Grimm M.D. Ordering Physician: Yuan Grimm M.D. Date of Service: 08/06/23 Procedure(s): XR knee RT 4V Accession Number(s): [id number] cc: Eusebia Terrell WEB ASSISTANT; Yuan Grimm M.D. [place] [id number] Patient Name: ELYSE DUONG MRN: [facility]:[id number] date: 1965 Sex: M Assigned Patient Location: Current Patient Location: Accession/Order Number: [id number] Exam Date: 08/06/2023 11:15 Report Date: 08/07/2023 [...] Vidhi Finley M.D. Signed By:08/07/23 1008 DD/ 1004 TD/TT: Pallet Rectifier: Generic External Data Provider IMG XR PROCEDURES Final Result documented in this encounter Visit Diagnoses Not on filedocumented in this encounter Care Teams Flexographic Printing Machinist Relationship Specialty Start Date End Date Mirza Pérez MD PCP - General Family Medicine 06/05/23 08/13/23 Mirza Pérez MD PCP - General Family Medicine 08/14/23 04/08/24 Unallocated, [facility] MD [place] [address] [place] [address] PCP - General Family Medicine 04/09/24 04/16/24 Mirza Pérez MD PCP - General Family Medicine 04/17/24 Eusebia Terrell NP Nurse Practitioner Family Medicine 03/18/23 documented as of this encounter
--- OUTSIDE RECORDS SUMMARY | 2025-03-15 17:56 | XMS_ITS | Patient Health Record ---
Author Organization [facility] [place] Address [address] [place] [address] Care Team Providers Care Community Development Coordinator Name Role Phone Eusebia Terrell CNP Primary [...] Problem COPD - Chronic obstructive pulmonary disease (39566020) COPD (chronic obstructive pulmonary disease) (J44.9) Active confirmed Problem Atrial fibrillation (disorder) (59892408) Afib (I48.91) Active confirmed Problem Coronary artery disease (65408185) CAD (coronary artery disease) (I25.10) Active confirmed Problem Obstructive sleep apnea syndrome (39056327) CATERINA (obstructive sleep apnea) (G47.33) Active confirmed Problem Continuous positive airway pressure ventilation treatment (80519894) CPAP (continuous positive airway pressure) dependence (Z99.89) Active confirmed Problem Acute exacerbation of chronic obstructive airways disease (672771553) COPD exacerbation (J44.1) Active confirmed Problem Benign fibroma of prostate (034321575) 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 Plan Of Treatment Pending Test Test Name Order Date BMP w/GFR 12/21/2023 Insurance Providers Payer Name Payer Address Payer Phone Subscriber Number Group Number Insured Name Patient Relationship to Insured Coverage Start Date Coverage End Date [employer] [address] [place] [address] [id number] Dmitriy Duong Self - patient is the [...] Surgical History Surgery Date(Month/Year) cholecystectomy stents s/p [place] arthroscopic knee surgery, left left [facility]SV Hospitalization History Reason Date(Month/Year) respiratory 05/2022
[2025-03-15] MEDS: METHYLPREDNISOLONE SOD SUCC PF 125 MG/2 ML VIAL IVP (17:59)
[2025-03-15] MEDS: ALBUTEROL SULFATE 2.5 MG/3 ML VIAL NEB IH ×2 (18:06→18:59)
[2025-03-15 18:14] LABS: Hematocrit 47.3 % (42.0-54.0); Hemoglobin 15.7 g/dL (14.0-18.0); Mean Corpuscular HGB Conc 33.2 g/dL (29.9-35.2); Mean Corpuscular Hemoglobin 31.6 pg (25.9-34.0); Mean Corpuscular Volume 95.2 fL (80.0-94.0); Platelet Count 285 10^3/uL (150-450); Red Blood Count 4.97 10^6/uL (4.70-6.10); White Blood Count 15.8 10^3/uL (4.0-11.0)
[2025-03-15 18:26] LABS: SARS-CoV-2 Ag NEGATIVE (NEGATIVE)
[2025-03-15 18:37] LABS: Anion Gap 11.6; Blood Urea Nitrogen 16.0 mg/dL (7.0-18.0); Calcium 8.8 mg/dL (8.5-10.1); Carbon Dioxide 32.2 mmol/L (21.0-32.0); Chloride 97 mmol/L (98-107); Estimated GFR (African America >60 (>=60 mL/min/1.73m^2); Estimated GFR (Non-African Ame 60 (>=60 mL/min/1.73m^2); Glucose 141 mg/dL (74-106); Potassium 3.8 mmol/L (3.5-5.1); Sodium 137 mmol/L (136-145)
[2025-03-15 18:43] LABS: Basophils Abs Manual 0.00 10^3/uL (0.00-0.10); Basophils Percent Manual 0.0 % (0.2-2.0); Eosinophils Absolute Manual 0.00 10^3/uL (0.00-0.70); Eosinophils Percent Manual 0.0 % (0.9-7.0); Lymphocytes Absolute Manual 1.89 10^3/uL (1.20-3.80); Lymphocytes Percent Manual 12.0 % (20.5-60.0); Monocytes Absolute Manual 1.42 10^3/uL (0.30-0.80); Monocytes Percent Manual 9.0 % (1.7-12.0); Segmented Neut Absolute Manual 12.48 10^3/uL (1.4-6.5); Segmented Neutrophils % Manual 79.0 (43.0-75.0)
[2025-03-15 19:09] LABS: NT Pro B Type Natriuretic Pept 629.0 pg/mL (<=900.0)
--- NOTE | 2025-03-15 19:24 | ED.SOB1 ---
HPI - SOB/Dyspnea General Chief Complaint: Shortness of Breath/Dyspnea Stated Complaint: SOB Time Seen by Provider: 03/15/25 17:38 Source: patient Mode of arrival: ambulance History of Present Illness HPI Narrative: This 59-year-old male with a history of CHF, COPD, morbid obesity and atrial fibrillation who is on Eliquis was signed out to me at shift change pending BNP. He presents for evaluation of increasing shortness of breath. He is home oxygen dependent typically using 4 L nasal cannula. Today his oxygen was increased to 5 L to keep his pulse ox greater than 93%. Patient was seen and evaluated. He states for the past several days he has been having increasing shortness of breath and chills and sweats. He denies any nausea or vomiting. He is not having any chest pain. EKG shows an A-fib at 110 bpm. I reviewed his medication list he is on Eliquis as well as Lasix 20 mg. Chest x-ray showed questionable peripheral vascular congestion. His white count is elevated at 15.8. He is negative for COVID-19 and influenza. His electrolytes and liver function tests are normal. Troponin and BNP are normal. The patient does have conversational dyspnea and diffusely diminished breath sounds. He is agreeable to being admitted for observation to improve his symptoms. He was given 125 mg of Solu-Medrol by Dr. ramírez, he was noted to have a mildly elevated temperature upon arrival at 99.5. The patient states during my evaluation that he feels like he is getting a fever again because he has chills and is sweating. Repeat temperature was normal. He will be given IV magnesium as well as IV Rocephin and Zithromax. He is not currently on any antibiotics. The case was discussed with the hospitalist and he is accepted for admission, Medr observation status. Related Data Home Medications ?Medication ?Instructions ?Recorded ?Confirmed atorvastatin 40 mg tablet 40 mg PO Q24H 04/08/23 06/16/23 losartan 50 mg tablet 50 mg PO Q24H 04/08/23 06/16/23 benzonatate 200 mg capsule 200 mg PO .every 8 hours PRN cough 06/16/23 06/16/23 furosemide 20 mg tablet 20 mg PO DAILY 06/16/23 06/16/23 potassium chloride 10 mEq 20 meq PO DAILY 06/16/23 06/16/23 tablet,extended release(part/cryst) (Klor-Con M) Previous Rx's ?Medication ?Instructions ?Recorded apixaban 5 mg tablet (Eliquis) 5 mg PO BID 30 days #60 tabs 04/10/23 diltiazem HCl 240 mg 240 mg PO DAILY #30 caps 04/10/23 capsule,extended release 24 hr levalbuterol tartrate 45 2 inh inhalation Q4H PRN shortness 04/10/23 mcg/actuation aerosol inhaler of breath or wheezing #15 grams hydrocodone 5 mg-acetaminophen 325 1 tab PO Q6H PRN pain #12 tabs 06/04/23 mg tablet azithromycin 250 mg tablet 250 mg PO DAILY 4 days #4 tabs 06/20/23 (Zithromax) cefdinir 300 mg capsule 300 mg PO BID 10 days #20 caps 06/20/23 ipratropium 0.5 mg-albuterol 3 mg 3 ml inhalation Q4H PRN shortness 06/20/23 (2.5 mg base)/3 mL nebulization of breath or wheezing #180 mL soln metoprolol tartrate 100 mg tablet 100 mg PO BID #60 tabs 06/20/23 prednisone 10 mg tablets in a dose 10 mg PO DAILY #39 ea 06/20/23 pack cephalexin 500 mg capsule 500 mg PO Q6H 10 days #40 caps 01/29/25 doxycycline monohydrate 100 mg 100 mg PO BID 10 days #20 caps 01/29/25 capsule oxycodone-acetaminophen 5 mg-325 1 tab PO Q8H PRN pain 4 days #12 01/29/25 mg tablet (Percocet) tabs Allergies Allergy/AdvReac Type Severity Reaction Status Date / Time No Known Drug Allergies Allergy Verified 04/08/23 07:42 [facility] Medical History (Updated 03/15/25 @ 19:29 by Ivanna Arroyo MD) Morbid obesity ?E66.01 - Morbid (severe) obesity due to excess calories (ICD-10) Edema of both lower legs ?R60.0 - Localized edema (ICD-10) Benign essential hypertension ?I10 - Essential (primary) hypertension (ICD-10) Coronary artery disease ?I25.10 - Atherosclerotic heart disease of ambler coronary artery without angina pectoris (ICD-10) Cellulitis ?L03.90 - Cellulitis, unspecified (ICD-10) Leukocytosis ?D72.829 - Elevated white blood cell count, unspecified (ICD-10) Asthma exacerbation ?J45.901 - Unspecified asthma with (acute) exacerbation (ICD-10) Prediabetes ?R73.03 - Prediabetes (ICD-10) Paroxysmal atrial fibrillation ?I48.0 - Paroxysmal atrial fibrillation (ICD-10) COPD (chronic obstructive pulmonary disease) ?J44.9 - Chronic obstructive pulmonary disease, unspecified (ICD-10) CATERINA (obstructive sleep apnea) ?G47.33 - Obstructive sleep apnea (adult) (pediatric) (ICD-10) Cellulitis ?L03.90 - Cellulitis, unspecified (ICD-10) Surgical History (Updated 04/08/23 @ 13:25 by Zuleyka Merritt) Hx of cholecystectomy ?Z90.49 - Acquired absence of other specified parts of digestive tract (ICD-10) H/O heart artery stent ?Z95.5 - Presence of coronary angioplasty implant and graft (ICD-10) Social History Within the past year, how often did you have a drink containing alcohol: never Score interpretation: A score less than 4 is consistent with normal alcohol consumption. Smoking status: Former smoker Little interest or pleasure in doing things: not at all Feeling down, depressed, or hopeless: not at all Exam Constitutional Vital Signs, click to edit/add: Last Vital Signs Temp 99.5 F 03/15/25 17:36 Pulse 97 H 03/15/25 19:00 Resp 18 03/15/25 19:00 BP 101/68 03/15/25 17:38 Pulse Ox 93 L 03/15/25 19:00 O2 Del Method Nasal Cannula 03/15/25 19:00 O2 Flow Rate 4 03/15/25 19:00 Course Vital Signs Vital signs: Vital Signs Temperature 99.5 F 03/15/25 17:36 Pulse Rate 105 H 03/15/25 17:36 Respiratory Rate 26 H 03/15/25 17:36 Blood Pressure 101/68 03/15/25 17:36 Pulse Oximetry 95 03/15/25 17:36 Oxygen Delivery Method Nasal Cannula 03/15/25 17:36 Oxygen Delivery Flow Rate 5 03/15/25 17:36 Temperature 99.5 F 03/15/25 17:36 Pulse Rate 97 H 03/15/25 19:00 Respiratory Rate 18 03/15/25 19:00 Blood Pressure 101/68 03/15/25 17:38 Pulse Oximetry 93 L 03/15/25 19:00 Oxygen Delivery Method Nasal Cannula 03/15/25 19:00 Oxygen Delivery Flow Rate 4 03/15/25 19:00 MDM - SOB/Dyspnea Lab Data Labs: Lab Results 03/15/25 03/15/25 Range/Units 17:44 18:00 WBC 15.8 H (4.0-11.0) 10^3/uL RBC 4.97 (4.70-6.10) 10^6/uL Hgb 15.7 (14.0-18.0) g/dL Hct 47.3 (42.0-54.0) % MCV 95.2 H (80.0-94.0) fL MCH 31.6 (25.9-34.0) pg MCHC 33.2 (29.9-35.2) g/dL RDW 12.4 (11.0-15.0) % Plt Count 285 (150-450) 10^3/uL MPV 9.9 (9.5-13.5) fL Seg Neuts % (Manual) 79.0 H (43.0-75.0) Lymphocytes % (Manual) 12.0 L (20.5-60.0) % Monocytes % (Manual) 9.0 (1.7-12.0) % Eosinophils % (Manual) 0.0 L (0.9-7.0) % Basophils % (Manual) 0.0 L (0.2-2.0) % Neutrophils # (Manual) 12.48 H (1.4-6.5) 10^3/uL Lymphocytes # (Manual) 1.89 (1.20-3.80) 10^3/uL Monocytes # (Manual) 1.42 H (0.30-0.80) 10^3/uL Eosinophils # (Manual) 0.00 (0.00-0.70) 10^3/uL Basophils # (Manual) 0.00 (0.00-0.10) 10^3/uL Sodium 137 (136-145) mmol/L Potassium 3.8 (3.5-5.1) mmol/L Chloride 97 L (98-107) mmol/L Carbon Dioxide 32.2 H (21.0-32.0) mmol/L Anion Gap 11.6 BUN 16.0 (7.0-18.0) mg/dL Creatinine 1.23 (0.70-1.30) mg/dL Est GFR ( Amer) >60 (>=60 mL/min/1.73m^2) Est GFR (Non-Af Amer) 60 (>=60 mL/min/1.73m^2) BUN/Creatinine Ratio 13.0 Glucose 141 H (74-106) mg/dL Calcium 8.8 (8.5-10.1) mg/dL Troponin I High Sens 5.4 (4.0-76.1) pg/mL NT-Pro-B Natriuret Pep 629.0 (<=900.0) pg/mL Influenza Type A Ag Negative Influenza Type B Ag Negative SARS-CoV-2 Ag (CV2AG) Negative (NEGATIVE) Discharge Plan Discharge Chief Complaint: Shortness of Breath/Dyspnea Clinical Impression: Acute exacerbation of chronic obstructive pulmonary disease, Congestive heart failure, Pneumonia Patient Disposition: Admitted as Observation Time of Disposition Decision: 19:29 Condition: Fair
[2025-03-15] MEDS: ACETAMINOPHEN 325 MG TABLET 650 MG PO (19:39)
[2025-03-15] MEDS: MAGNESIUM SULFATE IN WATER 2 GM/50 ML PREMIX IV (19:40)
[2025-03-15 19:43] LABS: Lactate/Lactic Acid 1.2 mmol/L (0.4-2.0)
[2025-03-15] MEDS: AZITHROMYCIN 500 MG in 0.9 % SODIUM CHLORIDE 250 ML 250 MG IV (20:08)
[2025-03-15] MEDS: 0.9 % SODIUM CHLORIDE 500 ML IV (22:28)
[2025-03-15] MEDS: MIDODRINE HCL 5 MG TABLET PO (22:28)
[2025-03-15] MEDS: ALBUMIN HUMAN 25 GM/100 ML PREMIX IV (22:28)
[2025-03-15] MEDS: INSULIN ASPART 300 UNIT/3 ML PEN SUBQ (22:29)
[2025-03-16] VITALS (34 sets, daily range): BP systolic 84–133; BP diastolic 55–98; PULSE 62–117; TEMP 36.4–36.6; O2SAT 92–97
[2025-03-16 05:29] LABS: Hematocrit 44.5 % (42.0-54.0); Hemoglobin 14.7 g/dL (14.0-18.0); Immature Granulocytes Abs Auto 0.06 10^3/uL (0.00-0.03); Immature Granulocytes Pct Auto 0.4 % (0.0-0.5); Lymphocytes Absolute Auto 0.4 10^3/uL (1.2-3.8); Mean Corpuscular HGB Conc 33.0 g/dL (29.9-35.2); Mean Corpuscular Hemoglobin 31.7 pg (25.9-34.0); Mean Corpuscular Volume 96.1 fL (80.0-94.0); Platelet Count 264 10^3/uL (150-450); Red Blood Count 4.63 10^6/uL (4.70-6.10); White Blood Count 14.4 10^3/uL (4.0-11.0)
[2025-03-16 05:51] LABS: Alanine Aminotransferase 26 U/L (16-63); Albumin Globulin Ratio 0.7; Albumin Level 3.2 g/dL (3.4-5.0); Alkaline Phosphatase 118 U/L (46-116); Anion Gap 13.3; Aspartate Amino Transferase 14 U/L (15-37); Blood Urea Nitrogen 22.0 mg/dL (7.0-18.0); Calcium 8.9 mg/dL (8.5-10.1); Carbon Dioxide 28.6 mmol/L (21.0-32.0); Chloride 96 mmol/L (98-107); Estimated GFR (African America >60 (>=60 mL/min/1.73m^2); Estimated GFR (Non-African Ame 56 (>=60 mL/min/1.73m^2); Globulin 4.4 g/dL; Glucose 184 mg/dL (74-106); Magnesium 2.8 mg/dL (1.8-2.4); Potassium 3.9 mmol/L (3.5-5.1); Sodium 134 mmol/L (136-145); Total Protein 7.6 g/dL (6.4-8.2)
--- NOTE | 2025-03-16 07:00 | ECG_ITS ---
[facility] Test Date: 2025-03-16 Pat Name: ELYSE LEAHY Department: Room: 2211 Gender: Male Piping Manager: : 1965 Requested By: [id number] Order Number: [id number] Reading MD: ANDREA PRESCOTT Measurements Intervals [place] Rate: 75 P: PA: QRS: 80 QRSD: 110 T: 75 QT: 389 QTc: 436 Interpretive Statements ATRIAL FIBRILLATION SEPTAL MYOCARDIAL INFARCTION [40+ ms Q WAVE IN V1/V2], OF INDETERMINATE AGE Compared to ECG 03/15/2025 17:41:48 Myocardial infarct finding now present Electronically Signed On 03-16-2025 15:22:23 EDT by ANDREA PRESCOTT
[2025-03-16] MEDS: INSULIN ASPART 300 UNIT/3 ML PEN SUBQ ×4 (07:47→21:07)
--- NOTE | 2025-03-16 08:00 | CM.NOTE ---
Rounds made with Dr. Flores, discussed with pt reason for admission and plan of care. Discussed pt's status with Dr. Flores, pt will be changed to inpatient status.
--- NOTE | 2025-03-16 10:53 | SWNOTE1 ---
SW met with pt to discuss dc needs. Pt lives at home by himself. He voiced his grand kids stop over often to check on him. Pt does not use any equipment to ambulate and is independent, still drives. Pt does wear home oxygen at 4 liters continuous and he thinks it is from [employer]. Pt has no concerns about discharge at this time. SW to follow as needed.
--- NOTE | 2025-03-16 11:55 | CM.NOTE ---
Per the [facility] [phone] the patient currently receives home 02 at 4L per nasal cannula. If he goes above 5L they would need a new order. He has both portable and home 02 currently.
--- NOTE | 2025-03-16 11:57 | CT_ITS ---
[address] [address] Patient Name: ELYSE LEAHY MRN: [id number] date: 1965 Sex: M Assigned Patient Location: [place] Current Patient Location: Accession/Order Number: [id number] Exam Date: 03/16/2025 13:50 Report Date: 03/16/2025 15:17 At the request of: TERESA MULLINS MD Procedure: CT chest wo con CT Chest without contrast TECHNIQUE: Axial imaging with 2-D reconstruction. The CT exam was performed using one or more the following dose reduction techniques: Automated exposure control, adjustment of the MA and/or Kv according to patient size, or use of the iterative reconstruction technique. History: CHF versus pneumonia COMPARISON: plain film chest 03/15/2025 THYROID: 12 mm right thyroid nodule present. TRACHEA AND BRONCHI: Patent ESOPHAGUS: Unremarkable. HEART: Mild cardiomegaly PERICARDIAL EFFUSION: Trace CORONARY ARTERY CALCIFICATION: Minimal MEDIASTINUM: No adenopathy. No pneumoperitoneum. No mediastinal hematoma. PULMONARY KEITH: No hilar mass or adenopathy is seen. THORACIC AORTA mild atherosclerosis. No aneurysm. LUNG NODULE 4 mm and less subpleural lung nodules. Favor benign etiology. Remote granulomatous changes. LUNGS: Reticulonodular densities of the lung bases bilaterally greater on the right. Favor infectious or inflammatory etiology. PLEURAL EFFUSION: None PNEUMOTHORAX: No pneumothorax seen. CHEST WALL: No abnormality AXILLA:Unremarkable BONY STRUCTURES degenerative change UPPER ABDOMEN: Images of the upper abdomen are noncontributory. CT/CT chest wo con IMPRESSION: Basilar reticulonodular densities greater on the right. Favor infectious/inflammatory etiology. Small bilateral lung nodules favoring benign etiology. 12 mm right thyroid nodule. Impression dictated by: Jordon Castro M.D. 03/16/2025 3:17 PM Dictation Location[facility] Electronically authenticated by: [id number] Y Date: 03/16/2025 15:17
[2025-03-16] MEDS: DILTIAZEM HCL 240 MG CAP.ER.24H PO (12:09)
[2025-03-16] MEDS: APIXABAN 5 MG TABLET PO ×2 (12:09→21:04)
[2025-03-16] MEDS: METOPROLOL TARTRATE 50 MG TABLET PO (12:09)
--- NOTE | 2025-03-16 12:15 | PM.HP ---
HPI H&P: HPI History of Present Illness Chief complaint: COPD EXACERBATION CHF CLINICAL PNEUMOMIA Narrative: Mr. Duong is a 59-year-old gentleman who came in with cough. He describes his cough as greenish in color. Increased shortness of breath over the last few days. Patient reported having low-grade temperature as well. No chest pain or palpitation. No abdominal pain, nausea or vomiting. Opioid HPI Opioid Management Most Recent Pain and Opioid Data: Last Pain Scale 8 01/29/25, 20:59 Last Pain Assessment 03/15/25, 22:00 Last ORT Total Score 0 03/15/25, 21:13 Last ORT Risk Category Low Risk 03/15/25, 21:13 Review of Systems ROS Status of ROS 10 or more systems reviewed and unremarkable except as noted in history and below [facility] Medical History (Updated 03/16/25 @ 12:16 by Nell Flores MD) Edema of both lower legs ?R60.0 - Localized edema (ICD-10) Benign essential hypertension ?I10 - Essential (primary) hypertension (ICD-10) Cellulitis ?L03.90 - Cellulitis, unspecified (ICD-10) Leukocytosis ?D72.829 - Elevated white blood cell count, unspecified (ICD-10) Asthma exacerbation ?J45.901 - Unspecified asthma with (acute) exacerbation (ICD-10) Prediabetes ?R73.03 - Prediabetes (ICD-10) Paroxysmal atrial fibrillation ?I48.0 - Paroxysmal atrial fibrillation (ICD-10) COPD (chronic obstructive pulmonary disease) ?J44.9 - Chronic obstructive pulmonary disease, unspecified (ICD-10) Cellulitis ?L03.90 - Cellulitis, unspecified (ICD-10) Surgical History (Updated 04/08/23 @ 13:25 by Zuleyka Merritt) Hx of cholecystectomy ?Z90.49 - Acquired absence of other specified parts of digestive tract (ICD-10) H/O heart artery stent ?Z95.5 - Presence of coronary angioplasty implant and graft (ICD-10) Family History (Updated 03/15/25 @ 21:42 by Cally Tapia) Brother Family history of cancer Mother Family history of diabetes mellitus Social History (Updated 03/15/25 @ 21:45 by Cally Tapia) Within the past year, how often did you have a drink containing alcohol: never Score interpretation: A score less than 4 is consistent with normal alcohol consumption. 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 Highest level of school completed/degree received: high school graduate Are you now , , , , never or living with a partner: Little interest or pleasure in doing things: not at all Feeling down, depressed, or hopeless: not at all Feel stressed/tense/nervous/anxious/difficulty sleeping: not at all Do you think of yourself as: straight/heterosexual Gender Identity: male Meds Home Medications and Allergies Home Medications ?Medication ?Instructions ?Recorded ?Confirmed ?Type atorvastatin 40 mg tablet 40 mg PO .QHS 04/08/23 03/16/25 History apixaban 5 mg tablet (Eliquis) 5 mg PO BID 30 days #60 tabs 04/10/23 03/15/25 Rx diltiazem HCl 240 mg 240 mg PO DAILY #30 caps 04/10/23 03/15/25 Rx capsule,extended release 24 hr levalbuterol tartrate 45 2 inh inhalation Q4H PRN shortness 04/10/23 03/15/25 Rx mcg/actuation aerosol inhaler of breath or wheezing #15 grams potassium chloride 10 mEq 20 meq PO DAILY 06/16/23 03/15/25 History tablet,extended release(part/cryst) (Klor-Con M) ipratropium 0.5 mg-albuterol 3 mg 3 ml inhalation Q4H PRN shortness 06/20/23 03/15/25 Rx (2.5 mg base)/3 mL nebulization of breath or wheezing #180 mL soln aspirin 81 mg tablet,delayed 81 mg PO Q8H pain 03/15/25 03/16/25 History release nitroglycerin 0.4 mg sublingual 0.4 mg sublingual PRN 03/15/25 03/15/25 History tablet fluticasone fur. 100 mcg-umeclid 1 inh inhalation .QD 03/16/25 03/16/25 History 62.5 mcg-vilant 25 mcg inhalat.powder (Trelegy Ellipta) metoprolol tartrate 50 mg tablet 50 mg PO BID 03/16/25 03/16/25 History spironolactone 25 mg tablet 25 mg PO .QD 03/16/25 03/16/25 History torsemide 20 mg tablet 20 mg PO .QD 03/16/25 03/16/25 History Allergies Allergy/AdvReac Type Severity Reaction Status Date / Time No Known Drug Allergies Allergy Verified 04/08/23 07:42 Exam Narrative Exam Narrative: [pt is awake and alert. oriented to place, time and person, morbidly obese HEENT: [place] conjunctiva and NL buccal mucosa Neck: Supple, no tenderness Endocrine: No Thyromegaly. Vascular: No JVD or carotid bruit. Lymphatic: No cervical lymphadenopathy. Chest: Bilateral rhonchi Heart IRRR, no extra sound or murmur. Abd: Soft, no tenderness, no rebound and no rigidity. Increase abd girth therefore clinically I could not exclude the possibility of intra abd mass or organomegaly. LE: No cyanosis or clubbing, no varices. Trace pitting edema Neuro: A A O. Nl speech, comprehension and attention. Nl and symetrical motor and tone examination through out. []] Constitutional Vital Signs, click to edit/add: Last Vital Signs Temp 97.6 F 03/16/25 11:29 Pulse 109 H 03/16/25 11:49 Resp 20 03/16/25 11:28 BP 126/95 H 03/16/25 11:29 Pulse Ox 94 L 03/16/25 11:29 O2 Del Method Nasal Cannula 03/16/25 11:28 O2 Flow Rate 4 03/16/25 11:29 Results Labs Labs: Short CBC 03/15/25 03/16/25 Range/Units 18:00 05:00 WBC 15.8 H 14.4 H (4.0-11.0) 10^3/uL Hgb 15.7 14.7 (14.0-18.0) g/dL Hct 47.3 44.5 (42.0-54.0) % Plt Count 285 264 (150-450) 10^3/uL BMP 03/15/25 03/16/25 18:00 05:00 Sodium 137 134 L Potassium 3.8 3.9 Chloride 97 L 96 L Carbon Dioxide 32.2 H 28.6 BUN 16.0 22.0 H Creatinine 1.23 1.30 Glucose 141 H 184 H Calcium 8.8 8.9 Liver Function 03/16/25 Range/Units 05:00 Total Bilirubin 0.6 (0.2-1.0) mg/dL AST 14 L (15-37) U/L ALT 26 (16-63) U/L Alkaline Phosphatase 118 H (46-116) U/L Albumin 3.2 L (3.4-5.0) g/dL Assessment and Plan Assessment and Plan (1) Pneumonia: (2) Congestive heart failure: (3) Acute exacerbation of chronic obstructive pulmonary disease: (4) CATERINA (obstructive sleep apnea): (5) Coronary artery disease: (6) Morbid obesity: Plan Acute on chronic hypoxic respiratory failure which is multifactorial. COPD, CATERINA, diastolic heart failure, probable infectious process,restrictive lung disease. Patient has chronic hypoxemia for which he wears for liters continuously. Underlying COPD emphysema. Patient smoked for many years in the past. Patient has slight elevation of the BNP and chest x-ray showed residual edema suggestive of acute/subacute diastolic heart failure patient had an echo in 2022 showing normal ejection fraction Patient reported having low-grade fever. Cough productive to greenish sputum and elevated white count suggestive of infectious process. Patient became hypotensive last evening after he was given intravenous diuretics in the emergency room department suggestive of hypovolemic state and requiring gentle IV fluid infusion. Obstructive sleep apnea secondary to morbid obesity. Patient admitted that he has not been using CPAP machine at home. Likely restrictive lung disease secondary to morbid obesity I requested CT chest and CRP to investigate further his acute illness and provide appropriate treatment. No procalcitonin available at [place] Meanwhile I will start patient on intravenous ceftriaxone and doxycycline. Hold off on IV diuretics due to hypotension yesterday Echocardiogram since his last echo was completed 2 years ago. Counseling about the use of CPAP. Recommend PFTs in the outpatient setting to assess the degree of his obstructive and restrictive lung disease. For the needed diagnostic and therapeutic intervention will be determined based on the clinical progression and follow-up test result. Chronic A-fib, mild RVR Resume home Eliquis, calcium and beta-preet. Echocardiogram to assess cardiac function and rule out development of valvular disease or cardiomyopathy Morbid obesity Counseling and education regarding diet, exercise and lifestyle modification. Diabetes, hyperglycemia, blood glucose is 261. A1c is 6.2. Patient is not on diabetic medications. Hyperglycemia could be related to acute stress and infection. Start patient on sliding scale Patient's status is dynamic and evolutionary and therefore the aforementioned assessment and plan may or may not be complete or conclusive. The patient would likely require to have additional workup, vesication therapeutic invention that will be determined based on the clinical progression and follow-up test results.
[2025-03-16] MEDS: DOXYCYCLINE HYCLATE 100 MG in 0.9 % SODIUM CHLORIDE 100 ML IV (12:32)
[2025-03-16] MEDS: ASPIRIN 81 MG TABLET.DR PO ×2 (14:15→21:06)
[2025-03-16] MEDS: IPRATROPIUM/ALBUTEROL SULFATE 3 ML AMPUL.NEB IH ×2 (15:03→20:30)
[2025-03-16] MEDS: BUDESONIDE 0.5 MG/2 ML AMPULE NEB IH (20:30)
[2025-03-16] MEDS: DOXYCYCLINE MONOHYDRATE 100 MG CAPSULE PO (21:04)
[2025-03-16] MEDS: ATORVASTATIN CALCIUM 40 MG TABLET PO (21:04)
[2025-03-16] MEDS: DEXAMETHASONE SOD PHOS 4 MG/ML VIAL IV (21:05)
[2025-03-16] MEDS: MIDODRINE HCL 5 MG TABLET 10 MG PO (21:48)
[2025-03-17] VITALS (22 sets, daily range): BP systolic 95–146; BP diastolic 58–80; PULSE 66–101; TEMP 36.3–36.7; O2SAT 93–98
[2025-03-17] MEDS: ASPIRIN 81 MG TABLET.DR PO ×3 (05:07→22:04)
[2025-03-17] MEDS: INSULIN ASPART 300 UNIT/3 ML PEN SUBQ ×4 (08:02→22:06)
[2025-03-17] MEDS: IPRATROPIUM/ALBUTEROL SULFATE 3 ML AMPUL.NEB IH ×3 (08:46→21:22)
[2025-03-17] MEDS: BUDESONIDE 0.5 MG/2 ML AMPULE NEB IH ×2 (08:47→21:22)
[2025-03-17] MEDS: METOPROLOL TARTRATE 50 MG TABLET PO ×2 (09:08→22:04)
[2025-03-17] MEDS: APIXABAN 5 MG TABLET PO ×2 (09:08→22:04)
[2025-03-17] MEDS: DOXYCYCLINE MONOHYDRATE 100 MG CAPSULE PO ×2 (09:08→22:04)
[2025-03-17] MEDS: DILTIAZEM HCL 240 MG CAP.ER.24H PO (09:08)
[2025-03-17] MEDS: DEXAMETHASONE SOD PHOS 4 MG/ML VIAL IV ×2 (09:08→22:05)
[2025-03-17] MEDS: MIDODRINE HCL 5 MG TABLET PO (09:08)
--- NOTE | 2025-03-17 09:32 | CM.NOTE ---
Rounded with . We will continue IV antibiotics for another day or two.
--- NOTE | 2025-03-17 11:06 | P.PN_ITS ---
Progress Note: Subjective Subjective Interval history: Patient is feeling better. Patient is coughing copious amount of yellowish sputum. Improvement of shortness of breath. No chest pain. Exam Narrative Exam Narrative: [pt is awake and alert. oriented to place, time and person, morbidly obese HEENT: [place] conjunctiva and NL buccal mucosa Neck: Supple, no tenderness Endocrine: No Thyromegaly. Vascular: No JVD or carotid bruit. Lymphatic: No cervical lymphadenopathy. Chest: Bilateral rhonchi improved since yesterday. Heart IRRR, no extra sound or murmur. Abd: Soft, no tenderness, no rebound and no rigidity. Increase abd girth therefore clinically I could not exclude the possibility of intra abd mass or organomegaly. LE: No cyanosis or clubbing, no varices. Trace pitting edema Neuro: A A O. Nl speech, comprehension and attention. Nl and symetrical motor and tone examination through out. []] Constitutional Vital Signs, click to edit/add: Last Vital Signs Temp 97.7 F 03/17/25 07:06 Pulse 88 03/17/25 10:00 Resp 18 03/17/25 07:06 BP 127/69 03/17/25 07:06 Pulse Ox 96 03/17/25 08:48 O2 Del Method Nasal Cannula 03/17/25 08:48 O2 Flow Rate 4 03/17/25 08:48 Progress Note: A&P Assessment and Plan (1) Pneumonia: (2) Congestive heart failure: (3) Acute exacerbation of chronic obstructive pulmonary disease: (4) CATERINA (obstructive sleep apnea): (5) Coronary artery disease: (6) Morbid obesity: Plan Acute on chronic hypoxic respiratory failure which is multifactorial. COPD, CATERINA, diastolic heart failure, probable infectious process,restrictive lung disease. Patient has chronic hypoxemia for which he wears for liters continuously. Underlying COPD emphysema. Patient smoked for many years in the past. Patient has slight elevation of the BNP and chest x-ray showed residual edema suggestive of acute/subacute diastolic heart failure patient had an echo in 2022 showing normal ejection fraction Patient reported having low-grade fever. Cough productive to yellowish greenish sputum and elevated white count suggestive of infectious process. Patient became hypotensive last evening after he was given intravenous diuretics in the emergency room department suggestive of hypovolemic state and requiring gentle IV fluid infusion. Obstructive sleep apnea secondary to morbid obesity. Patient admitted that he has not been using CPAP machine at home. Likely restrictive lung disease secondary to morbid obesity I requested CT chest and CRP to investigate further his acute illness and provide appropriate treatment. No procalcitonin available at [place]. CT showed basilar infiltration. No interstitial edema seen. Continue intravenous ceftriaxone and doxycycline. Hold off on IV diuretics due to hypotension yesterday Echocardiogram since his last echo was completed 2 years ago. Counseling about the use of CPAP. Recommend PFTs in the outpatient setting to assess the degree of his obstructive and restrictive lung disease. For the needed diagnostic and therapeutic intervention will be determined based on the clinical progression and follow-up test result. Chronic A-fib, mild RVR Resume home Eliquis, calcium and beta-preet. Echocardiogram to assess cardiac function and rule out development of valvular disease or cardiomyopathy Morbid obesity Counseling and education regarding diet, exercise and lifestyle modification. Diabetes, hyperglycemia, blood glucose is 261. A1c is 6.2. Patient is not on diabetic medications. Hyperglycemia could be related to acute stress and infection. Start patient on sliding scale Continue ADA diet Consideration to initiate metformin suspecting high insulin resistance secondary to obesity.
--- NOTE | 2025-03-17 11:18 | CA_ITS ---
Patient Name: ELYSE LEAHY MR#: [id number] : 1965 Exam Date: 03/17/2025 Ordering Doctor: TERESA MULLINS ECHOCARDIOGRAM REPORT PROCEDURE: CA ECHO DOPPLER COMPLETE INDICATIONS: A fib COMPARISON: None. DESCRIPTION: COMPLETE ECHOCARDIOGRAM Real-time transthoracic echocardiography with 2D, M-mode, spectral and color flow Doppler performed. QUALITY: Technical quality was adequate. LEFT VENTRICLE: Normal chamber size. Borderline left ventricular hypertrophy. Global left ventricular systolic function is normal. Estimated left ventricular ejection fraction is 65%. LV EF: DIASTOLIC: Not adequately assessed due to heart rhythm. ATRIAL SEPTUM: LEFT ATRIUM: Moderate dilatation. RIGHT ATRIUM: Moderate dilatation. RIGHT VENTRICLE: Mild dilatation. Normal right ventricular systolic function. TRICUSPID VALVE: Normal mobility and thickness. No stenosis with trivial regurgitation. No evidence of pulmonary hypertension. RVSP 33 mmHg. MITRAL VALVE: Normal mobility and thickness. No evidence of mitral valve stenosis. There is no mitral annular calcification. Trivial mitral regurgitation. AORTIC VALVE: Normal trileaflet appearance. Thickened aortic valve. Normal leaflet mobility. No evidence of aortic valve stenosis. No aortic regurgitation. AORTIC ROOT: Upper limits of normal measuring 4.0 cm. The ascending aorta is normal in size and measures 3.3 cm. PULMONIC VALVE: Normal thickness and mobility. No stenosis. Trivial regurgitation. PERICARDIUM: No evidence of pericardial effusion. IVC: Mild dilatation. Measuring 2.3 cm with no collapse PLEURA: CONCLUSION: 1. Borderline left ventricular hypertrophy with normal systolic function. Estimated LVEF is 65%. 2. Mildly dilated right ventricle with normal systolic function. 3. Moderate biatrial dilatation. 4. No significant valvular dysfunction. 5. Normal right-sided pressures. Adult Echocardiography Procedure Report Left Ventricle LVEDD (3.7 - 5.6 cm): 4.49 cm LVESD (2.2 - 4.0 cm): 3.22 cm LVIVS thickness (0.6 - 1.2 cm): 1.09 cm LVPW thickness (0.5 - 1.0 cm): 0.99 cm e': 0.20 m/s E - e': 5.30 LVOT Max Gradient: 4.28 mm[Hg] LVOT Area (cm2): 1.03 m/s Peak Velocity (LVOT): 1.03 m/s Mean Velocity (LVOT): 0.71 m/s LVOT Diameter 2.12 cm Left Ventricular Ejection Fraction: 65 % Left Atrium LA Volume Index (2D A2C): 32.87 ml/m2 Left Atrium Systolic Dimension: 4.77 cm Mitral Valve Mitral Valve E-Wave Peak Velocity: 1.06 m/s Right Ventricle RV Internal Diastolic Dimension: 4.37 cm Aorta AO Root Diam: 4.00 cm Ascending Ao Diam: 3.25 cm Aortic Valve AoV Area (Peak Haris): 3.16 cm2, 3.16 cm2 AoV Area (VTI): 3.49 cm2, 3.49 cm2 Peak Velocity(Antegrade Flow): 1.15 m/s Peak Gradient(Antegrade Flow): 5.29 mm[Hg] Mean Velocity(Antegrade Flow): 0.76 m/s Mean Gradient(Antegrade Flow): 2.69 mm[Hg] Velocity Time Integral: 21.15 cm Tricuspid Valve Peak Velocity (Regurgitant Flow): 1.38 m/s, 2.13 m/s, 1.98 m/s Pulmonic Valve Peak Velocity: 0.94 m/s Peak Gradient: 4.02 mm[Hg], 3.10 mm[Hg] Right Atrium Right Atrium Systolic Pressure: 106.93 ml, 106.93 ml Dictated by: Sander Quiroz M.D. on 03/17/2025 at 19:32 Approved by: Sander Quiroz M.D. on 03/17/2025 at 19:36
--- NOTE | 2025-03-17 12:08 | CM.NOTE ---
CM in to speak with pt regarding home CPAP. Pt states he is unable to wear home machine d/t dryness and hurts in his chest after hours of wearing. Pt states resin remover switched machine to BIPAP and also caused severe dryness. Pt does verbalize his machine has a humidifier but has not made a difference. Pt is just wearing oxygen at night. Pt does have appointment scheduled to see [employer] Attendant in May for pulmonary function test and will discuss options at that time with doctor. Pt states he is only able to tolerate machine for 2-4 hours. Encouraged pt to wear as long as tolerated through the night or naps during the day. Called Sleep lab for recommendations, recommend pt try Biotene for dry mouth. Sleep lab also recommend to bring machine and they can attempt to adjust humidity on BIPAP. Pt will attempt to contact to bring machine and package pick up Biotene over counter.
[2025-03-17] MEDS: MIDODRINE HCL 5 MG TABLET 2.5 MG PO ×2 (13:04→16:14)
[2025-03-17] MEDS: METFORMIN HCL 500 MG TABLET PO (16:14)
[2025-03-17] MEDS: ATORVASTATIN CALCIUM 40 MG TABLET PO (22:05)
[2025-03-18] VITALS (8 sets, daily range): BP systolic 106–116; BP diastolic 71–78; PULSE 74–108; TEMP 36.5–36.6; O2SAT 94–97
[2025-03-18 05:38] LABS: Hematocrit 44.5 % (42.0-54.0); Hemoglobin 14.6 g/dL (14.0-18.0); Mean Corpuscular HGB Conc 32.8 g/dL (29.9-35.2); Mean Corpuscular Hemoglobin 31.9 pg (25.9-34.0); Mean Corpuscular Volume 97.2 fL (80.0-94.0); Platelet Count 286 10^3/uL (150-450); Red Blood Count 4.58 10^6/uL (4.70-6.10); White Blood Count 16.3 10^3/uL (4.0-11.0)
[2025-03-18] MEDS: ASPIRIN 81 MG TABLET.DR PO (05:41)
[2025-03-18 06:01] LABS: Anion Gap 7.1; Blood Urea Nitrogen 25.0 mg/dL (7.0-18.0); Calcium 8.8 mg/dL (8.5-10.1); Carbon Dioxide 32.5 mmol/L (21.0-32.0); Chloride 103 mmol/L (98-107); Estimated GFR (African America >60 (>=60 mL/min/1.73m^2); Estimated GFR (Non-African Ame >60 (>=60 mL/min/1.73m^2); Glucose 224 mg/dL (74-106); Potassium 4.6 mmol/L (3.5-5.1); Sodium 138 mmol/L (136-145)
--- NOTE | 2025-03-18 08:10 | XR_ITS ---
[address] [address] Patient Name: ELYSE LEAHY MRN: [id number] date: 1965 Sex: M Assigned Patient Location: [place] Current Patient Location: [place] Accession/Order Number: [id number] Exam Date: 03/18/2025 06:20 Report Date: 03/18/2025 10:08 At the request of: TERESA MULLINS MD Procedure: XR chest 1V PORTABLE AP ERECT CHEST 0605 hours CLINICAL HISTORY: Dyspnea COMPARISON: Chest x-ray 03/15/[address] 03/16/2025 Evaluation is limited by large body habitus. The cardiac silhouette is stable. Minor perihilar congestion is still not excluded. No developing consolidation is seen. There is no sizable effusion or pneumothorax. The osseous structures are intact. XR/XR chest 1V IMPRESSION: NO SIGNIFICANT INTERVAL CHANGE Impression dictated by: Tayler Song M.D. 03/18/2025 10:08 AM Dictation Location: [place] [address] Electronically authenticated by: [id number] Y Date: 03/18/2025 10:08
[2025-03-18] MEDS: DILTIAZEM HCL 240 MG CAP.ER.24H PO (08:23)
[2025-03-18] MEDS: DOXYCYCLINE MONOHYDRATE 100 MG CAPSULE PO (08:23)
[2025-03-18] MEDS: APIXABAN 5 MG TABLET PO (08:23)
[2025-03-18] MEDS: MIDODRINE HCL 5 MG TABLET 2.5 MG PO (08:23)
[2025-03-18] MEDS: METFORMIN HCL 500 MG TABLET PO (08:24)
[2025-03-18] MEDS: DEXAMETHASONE SOD PHOS 4 MG/ML VIAL IV (08:24)
[2025-03-18] MEDS: METOPROLOL TARTRATE 50 MG TABLET PO (08:24)
[2025-03-18] MEDS: INSULIN ASPART 300 UNIT/3 ML PEN SUBQ ×2 (08:24→11:18)
--- NOTE | 2025-03-18 08:30 | CM.NOTE ---
Rounds made with Dr. Flores, pt will discharge to home today. will bring in pt's BIPAP prior to discharge to adjust humidity d/t pt's c/o dryness. Pt will f/u with PCP, cardiology and Pulmonary. Pt unsure of names of physicians at this time, states appointments are scheduled. will bring in information for CM to verify appointments scheduled. No other discharge needs identified.
[2025-03-18] MEDS: BUDESONIDE 0.5 MG/2 ML AMPULE NEB IH (09:11)
[2025-03-18] MEDS: IPRATROPIUM/ALBUTEROL SULFATE 3 ML AMPUL.NEB IH (09:12)
--- NOTE | 2025-03-18 09:39 | PM.DS1 ---
DS: Providers Provider Date of admission: 03/16/25 08:15 Primary care physician: Eusebia Terrell NP DS: Diagnosis Discharge Diagnosis (1) Pneumonia: (2) Congestive heart failure: (3) Acute exacerbation of chronic obstructive pulmonary disease: (4) CATERINA (obstructive sleep apnea): (5) Coronary artery disease: (6) Morbid obesity: Plan As listed above, below and others that are not listed DS: Summary Hospital Course Hospital Course: Mr. Duong is a 59-year-old gentleman who came in with shortness of breath, coughing up yellow and increased sputum and there was found to have the following: Acute on chronic hypoxic respiratory failure which is multifactorial. COPD, CATERINA, diastolic heart failure, probable infectious process,restrictive lung disease. Patient has chronic hypoxemia for which he wears 4 liters continuously. Underlying COPD emphysema. Patient smoked for many years in the past. Patient has slight elevation of the BNP and chest x-ray showed residual edema suggestive of acute/subacute diastolic heart failure patient had an echo in 2022 showing normal ejection fraction. Repeat echocardiogram showed normal ejection fraction and no significant valvular disease Patient reported having low-grade fever. Cough productive to yellowish greenish sputum and elevated white count suggestive of infectious process. CRP was elevated on admission and trended down significantly after treatment. CRP came down from 16 to 5 Patient became hypotensive last evening after he was given intravenous diuretics in the emergency room department suggestive of hypovolemic state and requiring gentle IV fluid infusion. Obstructive sleep apnea secondary to morbid obesity. Patient admitted that he has not been using CPAP machine at home. Likely restrictive lung disease secondary to morbid obesity I requested CT chest and CRP to investigate further his acute illness and provide appropriate treatment. No procalcitonin available at [place]. CT showed basilar infiltration. No interstitial edema seen. Continue intravenous ceftriaxone and doxycycline. Patient will be discharged on oral Augmentin and doxycycline. Hold off on IV diuretics due to hypotension yesterday Counseling about the use of CPAP. Recommend PFTs in the outpatient setting to assess the degree of his obstructive and restrictive lung disease. Recommend patient to follow-up with pulmonary team For the needed diagnostic and therapeutic intervention will be determined based on the clinical progression and follow-up test result. Chronic A-fib, mild RVR Resume home Eliquis, calcium and beta-preet. Echocardiogram to assess cardiac function and rule out development of valvular disease or cardiomyopathy Morbid obesity Counseling and education regarding diet, exercise and lifestyle modification. Diabetes, hyperglycemia, blood glucose is 261. A1c is 6.2. Patient is not on diabetic medications. Hyperglycemia could be related to acute stress and infection. Start patient on sliding scale Continue ADA diet Consideration to initiate metformin suspecting high insulin resistance secondary to obesity. Patient will be instructed to do the following Check your blood sugar 3 times a day before meals. Document these numbers on a blood glucose log and bring them with you to your follow-up appointment with your primary care doctor. Communicate with your primary care doctor or rotating equipment specialist if your blood sugar is under 100 or above 300 on 2 consecutive checks. Communicate with your primary care doctor or rotating equipment specialist if you have any questions about your diabetes medications. Signs of a low blood sugar include sweating, racing heart, dizziness and/or weakness. Check your blood sugar if you have any of the symptoms. Patient has multiple complex medical issues as listed above and others that are not listed. All appear to be stable. Patient is doing much better. Back to baseline state. I do not have any clear or strong clinical justification to extend inpatient hospitalization. Patient however will require close and frequent monitoring as well as additional work-up, investigation and therapeutic intervention that could take place from this point on post discharge. That is to prevent relapse, decompensation, rehospitalization and other medical implications.. I instructed patient to ask her primary care doctor to obtain [facility] record entirely to address abnormalities seen on labs and imaging that I have and have not addressed during this hospitalization, follow-up on pending blood work, imaging and pathology is if available and to follow-up on needed medical care in the outpatient setting. Time Spent with Patient Time attestation: Total time spent providing and/or coordinating discharge services: Exam Constitutional Vital Signs, click to edit/add: Last Vital Signs Temp 97.8 F 03/18/25 08:00 Pulse 76 03/18/25 09:12 Resp 20 03/18/25 08:00 BP 106/71 03/18/25 08:00 Pulse Ox 97 03/18/25 09:12 O2 Del Method Nasal Cannula 03/18/25 09:12 O2 Flow Rate 4 03/18/25 09:12 DS: Data Data Completed and Pending Labs on day of discharge: Labs from last 24 hours 03/18/25 03/17/25 03/17/25 05:29 21:17 15:38 WBC 16.3 H RBC 4.58 L Hgb 14.6 Hct 44.5 MCV 97.2 H MCH 31.9 MCHC 32.8 RDW 12.7 Plt Count 286 MPV 9.9 Sodium 138 Potassium 4.6 Chloride 103 Carbon Dioxide 32.5 H Anion Gap 7.1 BUN 25.0 H Creatinine 1.09 Est GFR ( Amer) >60 Est GFR (Non-Af Amer) >60 BUN/Creatinine Ratio 22.9 Glucose 224 H Calcium 8.8 C-Reactive Protein 4.65 H POC Glucose 233 H 223 H 03/17/25 11:15 WBC RBC Hgb Hct MCV MCH MCHC RDW Plt Count MPV Sodium Potassium Chloride Carbon Dioxide Anion Gap BUN Creatinine Est GFR ( Amer) Est GFR (Non-Af Amer) BUN/Creatinine Ratio Glucose Calcium C-Reactive Protein POC Glucose 260 H Preliminary micro results at discharge 03/15/25 19:50 Blood Culture Result 2 - Preliminary Blood - Right Hand NO GROWTH AT 36-48 HOURS. FINAL TO FOLLOW. 03/15/25 19:40 Blood Culture Result 1 - Preliminary Blood - Left Hand NO GROWTH AT 36-48 HOURS. FINAL TO FOLLOW. Discharge Plan Discharge Disposition: Home, Self-Care Condition: Fair Discharge Medications: New metformin 500 mg Tablet 500 mg PO BIDWM Qty: 60 1RF doxycycline monohydrate 100 mg Capsule 100 mg PO BID Qty: 8 0RF amoxicillin-pot clavulanate 875-125 mg tablet 1 tab PO BID Qty: 18 0RF Continued atorvastatin 40 mg tablet 40 mg PO .QHS diltiazem HCl 240 mg capsule,extended release 24hr 240 mg PO DAILY Qty: 30 0RF Eliquis 5 mg Tablet 5 mg PO BID 30 Days Qty: 60 0RF levalbuterol tartrate 45 mcg/actuation HFA aerosol inhaler 2 inh inhalation Q4H PRN (Reason: shortness of breath or wheezing) Qty: 15 0RF ipratropium-albuterol 0.5 mg-3 mg(2.5 mg base)/3 mL Solution For Nebulization 3 ml inhalation Q4H PRN (Reason: shortness of breath or wheezing) Qty: 180 0RF aspirin 81 mg tablet,delayed release (DR/EC) 81 mg PO Q8H nitroglycerin 0.4 mg tablet, sublingual 0.4 mg sublingual PRN torsemide 20 mg tablet 20 mg PO .QD spironolactone 25 mg tablet 25 mg PO .QD metoprolol tartrate 50 mg tablet 50 mg PO BID Trelegy Ellipta 100-62.5-25 mcg blister with device 1 inh INHALATION .QD Print Language: Upper Sorbian Activity Restrictions/Additional Instructions: I may not have addressed or treated all of your medical illnesses or the abnormal blood work or imaging studies during this hospitalization. Please ask your primary care provider to obtain [place] records entirely to follow up on all of the abnormal physical, laboratory, and imaging findings that I have not addressed. Please return back to the emergency room or seek medical attention if your symptoms worsen or return. Check your blood sugar 3 times a day before meals. Document these numbers on a blood glucose log and bring them with you to your follow-up appointment with your primary care doctor. Communicate with your primary care doctor or rotating equipment specialist if your blood sugar is under 100 or above 300 on 2 consecutive checks. Communicate with your primary care doctor or rotating equipment specialist if you have any questions about your diabetes medications. Signs of a low blood sugar include sweating, racing heart, dizziness and/or weakness. Check your blood sugar if you have any of the symptoms. Discharging you from [place] does not mean that your medical care ends here and now. You may still need additional monitoring, work up, investigation, and treatment plan to be handled from this point on by out patient providers including your primary care provider and specialists. For any medication question, please contact your retail pharmacist or your primary care provider. Thank you. Forms: Portal Instructions Referrals: LUCIE CABRERA MD [Physician, Family Practice] Referral Note: For lung care. Follow Up Appointments: 03/26 @ 10am with Eusebia Terrell NP [phone]
--- NOTE | 2025-03-18 10:12 | CM.NOTE ---
Pt did speak with his , pt has appointments with [facility] social service manager and [facility] director operating. [employer] marketing communications leader will call and verify appointments and put them on discharge paper.
--- NOTE | 2025-03-18 14:00 | CM.NOTE ---
CM spoke with RN regarding pt's CPAP machine, Respiratory therapy was able to increase humidity and set up adaptor for pt to bleed in oxygen.
--- NOTE | 2025-03-23 13:31 | CM.DCFOLLOWU ---
Person spoke with:Dmitriy How are you feeling? Ok still has a cough How is your pain? No pain Did you understand your discharge instructions? Yes Do you have any questions about your discharge instructions? No Were you given any prescriptions at discharge? Yes Were you able to get your prescriptions filled? Yes Do you understand how to take your medications as ordered? Yes Do you have any questions about your follow up appointment and do you plan to keep your follow up appointment? Yes I plan on keeping all of my appts Is there anything else that you would like to discuss? No Questions/Comments/Concerns/Other:
== END 2025-03-18 13:50 | disposition home or self-care (01) | DRG 139 ==
LOC: ER 19:29 → MS 20:52
PROVIDERS: Emergency Medicine; Admitting Provider Internal Medicine; Emergency Provider Emergency Medicine; PCP Nurse Practitioner; Visit Provider Internal Medicine
DX: J18.9 Pneumonia, unspecified organism (principal); J43.9 Emphysema, unspecified; I25.10 Atherosclerotic heart disease of native coronary artery without angina pectoris; J96.21 Acute and chronic respiratory failure with hypoxia; G47.33 Obstructive sleep apnea (adult) (pediatric); E66.01 Morbid (severe) obesity due to excess calories; Z68.43 Body mass index [BMI] 50.0-59.9, adult; Z99.81 Dependence on supplemental oxygen; Z87.891 Personal history of nicotine dependence; I50.31 Acute diastolic (congestive) heart failure; I48.20 Chronic atrial fibrillation, unspecified; I11.0 Hypertensive heart disease with heart failure; E11.65 Type 2 diabetes mellitus with hyperglycemia; Z91.199 Patient's noncompliance with other medical treatment and regimen due to unspecified reason; I95.9 Hypotension, unspecified; J98.4 Other disorders of lung; Z79.01 Long term (current) use of anticoagulants; Z79.82 Long term (current) use of aspirin; Z90.49 Acquired absence of other specified parts of digestive tract; Z95.5 Presence of coronary angioplasty implant and graft
CPT/HCPCS: 36415; 71045; 71250; 80048; 80053; 82948; 83036; 83605; 83735; 83880; 84100; 84484; 85007; 85025; 85027; 86140; 87040; 87804; 87811; 93005; 93306; 94640; 94761; 96365; 96367; 96368; 96375; 99285; G0378; J0456; J0696; J1100; J2919; J3475; P9046

== ENCOUNTER 2025-03-26 11:54 | Emergency (ER) | payer OTHER, SELFPAY ==
[2025-03-26] VITALS (10 sets, daily range): BP systolic 169; BP diastolic 95; PULSE 71–90; TEMP 36.4; O2SAT 94–97; BMI 55.0
--- OUTSIDE RECORDS SUMMARY | 2025-03-26 12:10 | XMS_ITS | CCD ---
Author Organization [facility] CliniSyvt Care Team Providers Care Lift Supervisor Name Role Phone MADISON BLANCO Unavailable Unavailable NO FAMILY DOCTOR, NO FAMILY DOCTOR Unavailable Unavailable Xander, Eusebia Rondon Unavailable Unavailable Unavailable Dr. Madison Blanco Referring Unavaila ble Andrewoulhimanshu, Dr. Scott Attending Unavaila ble Aichholayden, Mrs. Eusebia Rondon Primary Care Unavailab JUSTYN Lomeli Attending Leyla vailable Xander, Mrs. Eusebia Rondon Primary Care Unavailab JUSTYN Lomeli Referring Leyla vailable Farris, DIALER Eileen Referring Unavailable Farris, NATALIA Arellano Attending Unavailable Aichholz, Mrs. Eusebia Rondon Primary Care Unavailab le Anahi, Dr. Scott Referring Unavaila ble Traboulssdejon, Dr. Scott Attending Unavaila ble Aichholz, Mrs. Eusebia Rondon Primary Care Unavailab le AICHHOLZ, DIALER EUSEBIA Primary Care Unavailable DR VIDHI FARRIS Consulting Unavailable JF, DR VIDHI Biswas Admitting Unavailable DR VIDHI FARRIS Attending Unavailable EUSEBIA VICTORIA Consulting Unavailable MARCO ANTONIO FRIEDMAN Consulting Unavailable AICHHOLZ, DIALER [place] Primary Care Unavailable TED SUNG Admitting Unavailable ANNAMARIE .TED Attending Unavailable ANNAMARIE ., TED Consulting Unavailable UBALDO PERRINYL Consulting Unavailable ROBERTA PERRIN Attending Unavailable AYDIN, ROBERTA Admitting Unavailable AICHHOLZ, DIALER [place] Primary Care Unavailable MARLENE ARAMBULA Consulting Unavailable AICHHOLZ, DIALER [place] Primary Care Unavailable AYDIN, ROBERTA Admitting Unavailable AYDINUBALDOYL Attending Unavailable AYDIN, ROBERTA Consulting Unavailable Nery Mckeon Consulting Unavailable AICHHOLZ, DIALER [place]SE[place]IA Primary Care Unavailable CAM Sue, DR CONNOLLY Admitting Unavailable CAM Sue, DR CONNOLLY Attending Unavailable RAFAEL, DR MARCO ANTONIO Stewart Consulting Unavailable CLARY RODARTE Consulting Unavailable AICHHOLZ, DIALER EUSEIBA Primary Care Unavailable JF, DR VIDHI Biswas Admitting Unavailable JF, DR VIDHI Biswas Attending Unavailable JF, DR VIDHI Biswas Consulting Unavailable DONG BUNDY Consulting Unavailable ANNAMARIE ., TED Consulting Unavailable ANNAMARIE ., TED Attending Unavailable ANNAMARIE ., TED Admitting Unavailable AICHHOLZ, DIALER [place] Primary Care Unavailable Leo Marshall Consulting Unavailable ROMEO .DR FRANCO Consulting Unavailable ROMEO ., DR FRANCO Attending Unavailable AICHHOLZ, DIALER [place] Primary Care Unavailable ROMEO ., DR FRANCO Admitting Unavailable HAY ., DR CONNOLLY Consulting Unavailable ROBERTA PERRIN Consulting Unavailable SANDEEP MARY Consulting Unavailable AICHHOLZ, DIALER [place] Consulting Unavailable AICHHOLZ, DIALER [place] Primary Care Unavailable AICHHOLZ, DIALER [place] Attending Unavailable AICHHOLZ, DIALER [place] Admitting Unavailable MISC, DR DAVIS Consulting Unavailable AICHHOLZ, DIALER [place] Primary Care Unavailable MISC, DR DAVIS Attending Unavailable MISC, DR DAVIS Admitting Unavailable LIV, DR KESHAWN Biswas Consulting Unavailable AICHHOLZ, DIALER [place] Primary Care Unavailable RICA YE Attending Unavailable RICA YE Admitting Unavailable RICA YE Consulting Unavailable AICHHOLZ, DIALER [place] Consulting Unavailable AICHHOLZ, DIALER [place] Primary Care Unavailable AICHHOLZ, DIALER [place] Attending Unavailable AICHHOLZ, DIALER [place] Admitting Unavailable AICHHOLZ, DIALER [place] Admitting Unavailable AICHHOLZ, DIALER [place]SE[place] Attending Unavailable AICHHOLZ, DIALER [place] Primary Care Unavailable AICHHOLZ, DIALER [place] Consulting Unavailable MIRZA GUZMÁN Attending Unavailable MIRZA GUZMÁN Admitting Unavailable ROMEO .DR FRANCO Consulting Unavailable AICHHOLZ, DIALER [place] Primary Care Unavailable BABITA .DR SCOTT Consulting Unavailable MIRZA GUZMÁN Consulting Unavailable NIKOLAY .KARISHMA Consulting Unavailabl e CAM ., DR CONNOLLY Consulting Unavailable KESHAWN ALVAREZ Consulting Unavailable Aichholz, Mrs. Eusebia Rondon Primary Care Unavailab le SEBASTIAN, NAIM Attending Unavailable Aichholz, Mrs. Laws Nela Primary Care Unavailab le SBEASTIAN, NAIM Attending Unavailable Aichholz ON AIR TALENT-DIALER, Eusebia Nela Primary Care Provider Aichholz PROVIDER NETWORK MANAGER, Eusebia Unavailable Elisa PAREDES, Mirza Primary Care Provider Justyn Mondragon MD Unavailable LISA CERVANTES Attending Unavailable AICHHOLZ, EUSEBIA J Referring Unavailable AICHHOLZ, EUSEBIA J Primary Care Unavailable AICHHOLZ, EUSEBIA J Referring Unavailable AICHHOLZ, EUSEBIA J Primary Care Unavailable Aichholz PROVIDER NETWORK MANAGER, Eusebia Unavailable Elisa PAREDES, Mirza Primary Care Provider Unallocated MD, Noms Provider Primary Care Provi lindsey Elisa PAREDES, Mirza Primary Care Provider Aichholz ON AIR TALENT-DIALER, Eusebia Hernandez Primary Care Provider Aichholayden ON AIR TALENT-DIALER, Eusebia Hernandez Primary Care Provider Gi Kimble Primary Care Provider Unavailable Primary Care Provider Unavailabl e Aichholz ON AIR TALENT-DIALER, Eusebia Hernandez Primary Care Provider Xander ON AIR TALENT-DIALER, Eusebia Rondon Primary Care Provider Justyn Mondragon MD Unavailable MADISON BLANCO Attending Unavailable MADISON BLANCO Referring Unavailable EUSEBIA TERRELL Primary Care Unavailable Aichholz ON AIR TALENT-DIALER, Eusebia J Primary Care Provider XANDER EUSE[place]IA [...] EUSEBIA Attending Unavailable AICHHOLZ, EUSEBIA Attending Unavailable EUSEBIA TERRELL Attending Unavailable NON STAFF Primary Care Provider UnavailEusebia Davis Attending Provider [phone] Unavailable Unavailable Unavailable Allergies Allergy Classification Reported Allergen(s) Allergy Type Date of Onset Reaction(s) Facility (20 sources) Lisinopril; Translations: [Lisinopril TABS] Drug Allergy 3 Cough [facility] (20 sources) Lisinopril; Translations: [LISINOPRIL] Propensity to adverse reactions 3 Cough [facility] Medications Current Medications Medication Drug Class(es) Dates Sig (Normalized) Sig (Original) acetaminophen 325 mg / oxyCODONE hydrochloride 5 mg oral tablet (3 sources) Opioid Agonist Start: 01-30-2025 oxyCODONE-acetamin ophen (Percocet) 5-325 MG tablet 01/30/2025 Active albuterol 0.833 mg/ml / ipratropium bromide 0.167 mg/ml inhalation solution (20 sources) Anticholinergic, beta2-Adrenergic Agonist Start: 02-26-2025 take 1 mL by inhalation every four to six hours as needed Ipratropium-Albute rol 0.5 mg-3 mg(2.5 mg base)/3 mL solution for nebulization Active 3 ML INHALATION EVERY 4-6 HOURS as needed February 26, 2025 12:00am Complies with drug therapy Start: 2023 ipratropium-al buterol (Duo-Neb) 0.5-2.5 mg/3 mL nebulizer solution Inhale [...] End: 05-03-2025 take 1 tablet by mouth twice daily Apixaban (Eliquis) 5 mg tablet Active 5 MG PO Twice daily February 26, 2025 12:00am Complies with drug therapy Start: 09-27-2023 End: 05-06-2024 take 1 tablet [...] 06/26/2024 Active cephalexin 500 mg oral capsule (3 sources) Cephalosporin Antibacterial Start: 01-30-2025 cephalexin (Keflex) [...] m orning cholecalciferol (Vitamin D-3) 1.25 MG (07205 UT) capsule Take 50,000 Units by mouth in the morning. 0 Active dapagliflozin 10 mg oral tablet (20 sources) Sodium-Glucose Cotransporter 2 Inhibitor Start: 08-20-2023 End: 03-22-2025 take 1 tablet by mouth once daily Dapagliflozin Propanediol (Farxiga) 10 mg tablet Active 10 MG PO Daily February 26, 2025 12:00am Complies with drug therapy 24 hr dilTIAZem hydrochloride 240 mg extended release oral capsule (20 sources) Calcium Channel Preet Start: 05-14-2023 End: 05-03-2025 take 1 capsule by mouth once daily in the morning, then take 1 capsule by mouth every twenty-four hours Diltiazem Hcl (Cardizem Cd) 240 mg capsule,extended release 24hr Active 240 MG PO Every morning February 26, 2025 12:00am Complies with drug therapy Start: 05-14-2023 End: 02-06-2024 take 1 capsule [...] 03/27/2020 04/13/2023 Discontinued (Therapy completed) Start: 04-24-2019 End: 02-26-2025 take 180 mg by mouth once daily in the morning Diltiazem Hcl Active 180 MG Oral Every morning April 24, 2019 11:20am doxycycline monohydrate 100 mg oral capsule (3 sources) Tetracycline-class Drug Start: 01-30-2025 take 1 capsule by [...] take 1 puff(s) by mouth once daily Fluticasone-Umec lidin-Vilant (Trelegy Ellipta) 100-62.5-25 MCG/ACT aerosol powder Indications: Chronic obstructive pulmonary disease, unspecified COPD type (HCC) Use 1 puff in the mouth or throat Daily Rinse mouth after use 3 each 1 02/02/2025 05/03/2025 Active Start: 05-14-2023 take 1 puff(s) by mo uth in the morning Vsixbyqkryq-Uvooacsyc-Mvdkat (Trelegy Ellipta) 100-62.5-25 MCG/ACT aerosol powder Indications: [...] INH Inhalation Daily April 24, 2019 11:20am Start: 04-24-2019 Fluticasone-Um eclidin-Vilanter (Trelegy Ellipta) 100-62.5-25 mcg Blister With Device Active 1 INH INHALATION Daily April 24, 2019 1:00am Complies with drug therapy take 1 puff(s) by inhalation in the morning zfkawnrzdcv-txmkbqnbl-hezjydyp (TRELEGY ELLIPTA) 100-62.5-25 mcg blister with device Inhale 1 puff in the morning. Active take 1 puff(s) by inhalation every twenty-four hours Trelegy Ellipta 100-62.5-25 mcg blister with device Inhale 1 puff once every 24 hours. Active ogyjovfkasa-jlosbavha-wxjjxt er (Trelegy Ellipta) 200-62.5-25 mcg blister with device (1 source) End: 04-13-2023 fcwtekjpidh-aslfkyiaj-gkkwzj er (Trelegy Ellipta) 200-62.5-25 mcg blister with device Inhale once daily. 0 04/13/2023 Discontinued (Therapy completed) hydroCHLOROthiazide 25 mg or al tablet (10 sources) Thiazi de Diuret ic Start: 08-18-2020 [...] (Therapy completed) lisinopril 5 mg oral tablet (13 sources) Angiotensin Converting Enzyme Inhibitor Start: 11-16-2020 [...] HCTZ from profile as well. Start: 04-24-2019 End: 02-26-2025 take 5 mg by mouth once daily in the morning Lisinopril Active 5 [...] 1 tablet by mouth once daily Losartan 50 mg tablet Active 50 MG PO Daily February 26, 2025 12:00am Complies with drug therapy meloxicam 15 mg oral tablet (3 sources) Nonsteroidal Anti-inflammatory Drug Start: 04-24-2019 take 15 mg by mouth once daily Meloxicam Active 15 MG Oral Daily April 24, 2019 11:20am metoprolol tartrate 50 mg oral tablet (20 sources) beta-Adrenergic Preet Start: 07-02-2023 End: 05-03-2025 take 1 tablet by mouth twice daily Metoprolol Tartrate 50 mg tablet Active 50 MG PO Twice daily February 26, 2025 12:00am Complies with drug therapy Start: 2023 End: 07-26-2023 take 1 tablet [...] sublingual tablet (20 sources) Nitrate Vasodilator Start: 02-26-2025 Nitroglyce rin 0.4 mg tablet, sublingual Active 0.4 MG SUBLINGUAL every 5 to 15 minutes as needed February 26, 2025 12:00am do not exceed 3 doses per episode Complies with drug therapy Start: 10-15-2024 nitroglycerin (Nitrostat) 0.4 mg SL tablet Indications: 2- vessel coronary artery disease Place 1 tablet (0.4 [...] thank you take 1 tablet by tristan in the morning potassium chloride (K-TAB,KLOR-CON) 10 [...] food. 10 tablet 06/19/2024 06/24/2024 Active vitamin xtbtvbv-zyid-fnleq ( Plus, calcium carb,) 27 mg iron- 1 mg tablet (1 source) Start: 01-03-2021 End: 04-13-2023 take 1 tablet by mouth once daily vitamin pebolks-pkiq-xxilt ( Plus, calcium carb,) 27 mg iron- 1 mg tablet Take 1 tablet by mouth once daily. 0 01/03/2021 04/13/2023 Discontinued (Therapy completed) Semaglutide,0.25 or 0.5MG/DOS, (Ozempic, 0.25 or 0.5 MG/DOSE,) 2 MG/3ML solution pen-injector (9 sources) Start: 12-24-2023 End: 06-19-2024 Semaglutide,0.25 or 0.5MG/DOS, (Ozempic, 0.25 or 0.5 MG/DOSE,) 2 MG/3ML solution pen-injector Indications: Coronary artery disease involving [place] coronary artery of [place] heart without angina pectoris (CMS/HCC) , Morbid obesity with BMI of 50.0-59.9, adult (CMS/HCC) , Pre-diabetes Inject 0.25 mg under the skin every 7 (seven) days for 28 days 3 mL 1 12/24/2023 06/19/2024 Discontinued (Cost of medication) Start: 12-24-2023 Semaglutide,0. 25 or 0.5MG/DOS, (Ozempic, 0.25 or 0.5 MG/DOSE,) 2 MG/3ML solution pen-injector Indications: Coronary artery disease involving [place] coronary artery of [place] heart without angina pectoris (CMS/HCC) , Morbid obesity with BMI of 50.0-59.9, adult (CMS/HCC) , Pre-diabetes Inject 0.25 mg under the skin every 7 (seven) days for 28 days 3 mL 1 12/24/2023 Active spironolactone 25 mg oral tablet (20 sources) Aldosterone Antagonist Start: 02-26-2025 take 1 tablet by mouth once daily Spironolactone (Aldactone) 25 mg tablet Active 25 MG PO Daily February 26, 2025 12:00am Complies with drug therapy Start: 01-24-2025 take 1 tablet by tristan th once daily spironolactone (Aldactone) 25 MG tablet Take 25 mg by mouth Daily 01/24/2025 Active Start: 10-31-2023 End: 12-22-2024 take 1 tablet by mouth in the morning spironolactone (ALDACTONE) 25 mg tablet TAKE 1 TABLET (25 MG TOTAL) BY MOUTH IN THE MORNING 90 tablet 2 08/11/2024 Active torsemide 20 mg oral tablet (20 sources) Loop Diuretic Start: 02-26-2025 take 1 tablet by mouth twice daily Torsemide 20 mg tablet Active 20 MG PO Twice daily February 26, 2025 12:00am Complies with drug therapy Start: 01-22-2024 End: 10-15-2024 take 1 tablet by mouth once daily as needed torsemide (DEMADEX) 20 mg tablet Indications: Chronic diastolic heart failure (CMS-HCC) , Coronary artery disease involving [place] coronary artery of [place] heart without angina pectoris , Persistent atrial fibrillation (CMS-HCC) Take 1 tablet (20 mg total) by mouth daily. May take an additional 20 mg as needed for swelling, weight gain SOB 135 tablet 3 03/24/2024 Active Start: 08-20-2023 End: 01-22-2024 take 2 tablets by mouth once daily torsemide (DEMADEX) 20 mg tablet Indications: Chronic diastolic heart failure (CMS-HCC) , Coronary artery disease involving [place] coronary artery of [place] heart without angina pectoris , Persistent atrial [...] Ordered: 25-Feb-2021 DO Start : 25-Feb-2021 Complete [id number] actuat albuterol 0.09 mg/actuat metered dose [...] Active Problems Problem Classification Problem Date Documented Da te Episodic/Chronic Acute myocardial infarction (20 sources) Myocardial [...] [Coronary atherosclerosis of unspecified type of vessel, [place] or graft] Onset: 03-20-2014 Resolved: 07-19-2023 04-13-2023 Chronic Coronary atherosclerosis and other heart disease (3 sources) Presence of coronary angioplasty implant and graft; Translations: [Coronary angioplasty status] Onset: 08-29-2022 Episodic Diabetes mellitus without complication (1 source) Type 2 diabetes mellitus without complications; Translations: [TYPE 2 DM WITHOUT COMPLICATIONS] Onset: 12-14-2021 Chronic Diabetes mellitus without complication (20 sources) Prediabetes; Translations: [Prediabetes] Onset: 06-13-2022 07-19-2023 Episodic Disorders of lipid metabolism (20 sources) Hyperlipidemia; Translations: [Other and unspecified hyperlipidemia] Onset: 03-20-2014 Resolved: 12-24-2023 Chronic Essential hypertension (20 sources) Hypertensive disorder; Translations: [Unspecified essential hypertension] Onset: 08-29-2022 04-13-2023 Chronic Essential hypertension (1 source) Essential hypertension Onset: 08-23-2017 Fluid and electrolyte disorders (20 sources) Hypokalemia; Translations: [Hypokalemia] Onset: 05-29-2022 07-14-2023 Episodic Hyperplasia of prostate (15 sources) Benign prostatic hyperplasia; Translations: [Benign prostatic hyperplasia without lower urinary tract symptoms] Onset: 06-19-2024 06-19-2024 Chronic Immunizations and screening for infectious disease (1 source) Encounter for screening for other infectious and parasitic diseases; Translations: [ENC SCREENING OTH INF PARASITIC DZ] Onset: 10-28-2022 Episodic Nonspecific chest pain (6 sources) Chest pain, unspecified; Translations: [Atypical chest pain] Onset: 05-20-2022 Episodic Nutritional deficiencies (14 sources) Vitamin D deficiency; Translations: [Vitamin D deficiency, unspecified] Onset: 09-18-2024 09-18-2024 Chronic Other aftercare (1 source) exterminator helper termite (current) use of aspirin; Translations: [BARRER AND TACKER CURRENT USE OF ASPIRIN] Onset: 08-29-2022 Episodic Other aftercare (1 source) Other termination clerk (current) drug therapy; Translations: [OTH BARRER AND TACKER CURRENT DRUG THERAPY] Onset: 08-29-2022 Episodic Other [...] Onset: 05-30-2022 Episodic Other lower respiratory disease (20 sources) Hypoxia; Translations: [Hypoxemia] Onset: 06-28-2023 07-19-2023 Episodic Other lower respiratory disease (20 sources) Nodule of lung; Translations: [Solitary pulmonary nodule] Onset: 09-21-2022 06-06-2023 Episodic Other nutritional; endocrine; and metabolic disorders [...] in adult] Onset: 05-06-2024 05-06-2024 Chronic Other screening for suspected conditions (not mental disorders or infectious disease) (20 sources) Encounter for screening for malignant neoplasm of prostate; Translations: [Patient encounter status] Onset: 01-17-2022 07-19-2023 Episodic Other upper respiratory disease (20 sources) Allergic disposition; Translations: [Other allergic rhinitis] Onset: 04-09-2024 04-09-2024 Chronic Phlebitis; thrombophlebitis and thromboembolism (20 sources) Acute embolism and thrombosis of unspecified deep veins of lower extremity, bilateral; Translations: [Thrombophlebitis of superficial veins of lower extremity] Onset: 01-09-2022 08-16-2023 Episodic Residual codes; unclassified (16 sources) Sleep apnea; [...] (pediatric)] Onset: 09-21-2022 Chronic Residual codes; unclassified (15 sources) Dependence on enabling machine or device; Translations: [Dependence on other enabling machines and devices] Onset: 06-19-2024 06-19-2024 Chronic Residual codes; unclassified (20 sources) Noncompliance with [...] Translations: [Localized edema] Onset: 06-06-2023 07-19-2023 Episodic Sprains and strains (6 sources) Strain of left Achilles tendon, initial encounter; Translations: [Strain of muscle, fascia and tendon at neck level, initial encounter] Onset: 12-14-2021 Episodic Thyroid disorders (20 sources) Hypothyroidism, unspecified; Translations: [Thyroid nodule] Onset: 08-29-2022 07-19-2023 Chronic Unclassified (1 source) Pure hypercholesterolemia, unspecified / E78.00(ICD-9) Onset: 08-23-2017 Unclassified (1 source) Athscl heart disease of [place] coronary artery w/o ang pctrs / I25.10(ICD-9) [...] Translations: [UNSPECIFIED ABDOMINAL PAIN] Onset: 05-30-2022 Episodic E Codes: Fall (1 source) Fall on same level from slipping, tripping and stumbling with subsequent striking against other object, initial encounter; Translations: [FALL SAME LVL SLIP STRK OTH OBJ INT] Onset: 11-08-2021 Episodic E Codes: Natural/environment (2 sources) Other and unspecified overexertion or strenuous movements or postures, initial encounter; Translations: [Overexertion from strenuous movement or load, initial encounter] Onset: 12-14-2021 Episodic Headache; including migraine (20 sources) Headache disorder; Translations: [Other headache syndrome] Onset: 02-06-2024 02-06-2024 Episodic Mood disorders (14 sources) Mood disorders Onset: 06-19-2024 06-19-2024 Nutritional deficiencies (17 sources) Vitamin deficiency; Translations: [Vitamin deficiency, unspecified] [...] Onset: 11-08-2021 Episodic Other lower respiratory disease (6 sources) Cough; Translations: [Acute cough] Onset: 06-12-2023 06-12-2023 Episodic Other lower respiratory disease (20 sources) Cough; Translations: [Acute cough] Onset: 06-12-2023 [...] nutritional; endocrine; and metabolic disorders (17 sources) Obesity caused by energy imbalance; Translations: [Morbid (severe) obesity due to excess calories] Onset: 06-19-2024 Resolved: 06-19-2024 06-19-2024 Chronic Other upper respiratory infections (20 sources) Acute upper respiratory infection, unspecified; Translations: [Viral upper respiratory tract infection] Onset: 05-30-2022 Resolved: 09-18-2024 04-09-2024 Episodic Pneumonia (except that caused by tuberculosis or sexually transmitted disease) (20 sources) Bronchopneumonia, unspecified organism; Translations: [Infective pneumonia] Onset: 08-29-2022 Resolved: 07-19-2023 07-19-2023 Episodic Residual codes; unclassified (2 sources) Localized [...] Test Name Value Interpretation Reference Range Facility ALL BASIC METABOLIC PANELon 02-09-2025 Anion gap [Moles/Vol] 15.2 mmol/L [facility] Calcium [Mass/Vol] 8.8 mg/dL 8.5 - 10. 1 mg/dL [facility] Chloride [Moles/Vol] 102 mmol/L 98 - 107 mmol/L [facility] CO2 [Moles/Vol] 27.9 mmol/L 21.0 - 32.0 mmol/L [facility] Creatinine [Mass/Vol] 1.41 mg/dL High 0.70 - 1.30 mg/dL [facility] GFR/1.73 sq M.predicted CKD-EPI (S/P/Bld) [Vol rate/Area] >60 >=60 mL/min/1.73m 2 [facility] Glucose [Mass/Vol] 120 mg/dL High 74 - 106 mg/dL [facility] Interpretation and review of laboratory results Abnormal [facility] Potassium [Moles/Vol] 4.1 mmol/L 3.5 - 5.1 mmol/L [facility] Sodium [Moles/Vol] 141 mmol/L 136 - 145 mmol/L [facility] TBH EGFR-NON AF CHILEAN 51 Low >=60 mL/min/1.73m 2 [facility] Urea nitrogen [Mass/Vol] 23 mg/dL High 7.0 - 18.0 mg/dL [facility] Urea nitrogen/Creatinine [Mass ratio] 16.3 mg/mg [facility] B-TYPE NATRIURETIC PEPTIDEon 01-25-2025 Natriuretic peptide B (Bld) [Mass/Vol] 50 pg/mL Normal <=100 [facility] Comment on above: Performed By: #### C BCA, BMP #### [facility] ([id number]) [address], [address] [place] [address] BASIC METABOLIC PANELon 01-16 Anion gap [Moles/Vol] 9 mmol/L Normal 5-15 [facility] Comment on above: Performed By: #### C BCA, BMP #### [facility] ([id number]) [address], [address] [place] [address] Calcium [Mass/Vol] 9.3 mg/dL Normal 8.5-10.5 [facility] Comment on above: Performed By: #### C BCA, BMP #### [facility] ([id number]) [address], [address] [place] [address] Chloride [Moles/Vol] 99 mmol/L Normal 98-109 [facility] Comment on above: Performed By: #### C BCA, BMP #### [facility] ([id number]) [address], [address] [place] [address] CO2 [Moles/Vol] 29 mmol/L Normal 22-32 [facility] Comment on above: Performed By: #### C LATIA, BMP #### [facility] ([id number]) [address], [address] [place] [address] Creatinine [Mass/Vol] 1.31 mg/dL High 0.70-1.20 [facility] Comment on above: Result Comment: METH OD TRACEABLE TO IDMS STANDARD Performed By: #### C LATIA, BMP #### [facility] ([id number]) [address], [address] [place] [address] GFR/1.73 sq M.predicted among non-blacks MDRD (S/P/Bld) [Vol rate/Area] 62 mL/min/{1.73_m2} Normal >=60 [facility] Comment on above: Result Comment: eGFR not reported due to non-numeric value for Creatinine. Reported eGFR is based on the CKD-EPI 1 equation that does not use a race coefficient. Performed By: #### C LATIA, BMP #### [facility] ([id number]) [address], [address] [place] [address] Glucose [Mass/Vol] 156 mg/dL High 65-99 [facility] Comment on above: Performed By: #### C LATIA, BMP #### [facility] ([id number]) [address], [address] [place] [address] Potassium [Moles/Vol] 3.9 mmol/L Normal 3.5-5.0 [facility] Comment on above: Performed By: #### C BCA, BMP #### [facility] ([id number]) [address], [address] [place] [address] Sodium [Moles/Vol] 137 mmol/L Normal 134-146 [facility] Comment on above: Performed By: #### C BCA, BMP #### [facility] ([id number]) [address], [address] [place] [address] Urea nitrogen [Mass/Vol] 26 mg/dL Normal 5-27 [facility] Comment on above: Performed By: #### C LATIA, BMP #### [facility] ([id number]) [address] [address] [place] [address] CBC WITH AUTO DIFFERENTIALon 01-25-2025 BASOPHILS ABSOLUTE COUNT (10*3/UL) BY AUTOMATED COUNT 0.0 10*3/uL Normal 0.0-0.2 [facility] Comment on above: Performed By: #### C LATIA, BMP #### [facility] ([id number]) [address] [place] [address] BASOPHILS RELATIVE PERCENT BY AUTOMATED COUNT 0.4 % Normal [facility] Comment on above: Performed By: #### Alhaji JEFFERY, BMP #### [facility] ([id number]) [address] [place] [address] CELLAVISION DIFFERENTIAL TYPE AUTOMATED DIFFERENTIAL Normal [facility] Comment on above: Performed By: #### Alhaji JEFFERY, BMP #### [facility] ([id number]) [address] [place] [address] Eosinophils (Bld) [#/Vol] 0.1 10*3/uL Normal 0.0-0.4 [facility] Comment on above: Performed By: #### Alhaji JEFFERY, BMP #### [facility] ([id number]) [address] [place] [address] EOSINOPHILS RELATIVE PERCENT BY AUTOMATED COUNT 1.7 % Normal [facility] Comment on above: Performed By: #### Alhaji JEFFERY, BMP #### [facility] ([id number]) [address] [place] [address] Erythrocyte distribution width (RBC) [Ratio] 13.3 % Normal 11.5-15 [facility] Comment on above: Performed By: #### C BCA, BMP #### [facility] ([id number]) [address] [place] [address] Hematocrit (Bld) [Volume fraction] 47.0 % Normal 39-50 [facility] Comment on above: Performed By: #### C BCA, BMP #### [facility] ([id number]) [address] [place] [address] Hemoglobin (Bld) [Mass/Vol] 16.0 g/dL Normal 13-17 [facility] Comment on above: Performed By: #### C BCA, BMP #### [facility] ([id number]) [address] [place] [address] LYMPHOCYTES ABSOLUTE COUNT (10*3/UL) BY AUTOMATED COUNT 1.3 10*3/uL Normal 1.0-3.5 [facility] Comment on above: Performed By: #### C BCA, BMP #### [facility] ([id number]) [address] [place] [address] LYMPHOCYTES RELATIVE PERCENT BY AUTOMATED COUNT 15.3 % Normal [facility] Comment on above: Performed By: #### C BCA, BMP #### [facility] ([id number]) [address] [place] [address] MCH (RBC) [Entitic mass] 31.6 pg Normal 27-34 [facility] Comment on above: Performed By: #### C BCA, BMP #### [facility] ([id number]) [address] [place] [address] MCHC (RBC) [Mass/Vol] 34.1 g/dL Normal 32-36 [facility] Comment on above: Performed By: #### C BCA, BMP #### [facility] ([id number]) [address] [place] [address] MCV (RBC) [Entitic vol] 93 fL Normal 80-100 [facility] Comment on above: Performed By: #### Alhaji JEFFERY, BMP #### [facility] ([id number]) [address] [place] [address] MONOCYTES ABSOLUTE COUNT (10*3/UL) BY AUTOMATED COUNT 0.8 10*3/uL Normal 0.0-0.9 [facility] Comment on above: Performed By: #### Alhaji JEFFERY, BMP #### [facility] ([id number]) [address] [facility] [address] [place] [address] MONOCYTES RELATIVE PERCENT BY AUTOMATED COUNT 9.7 % Normal [facility] Comment on above: Performed By: #### Alhaji JEFFERY, BMP #### [facility] ([id number]) [address] [place] [address] NEUTROPHILS ABSOLUTE COUNT BY AUTOMATED COUNT 6.3 10*3/uL Normal 1.5-6.6 [facility] Comment on above: Performed By: #### Alhaji JEFFERY, BMP #### [facility] ([id number]) [address] [place] [address] NEUTROPHILS RELATIVE PERCENT BY AUTOMATED COUNT 72.9 % Normal [facility] Comment on above: Performed By: #### Alhaji JEFFERY, BMP #### [facility] ([id number]) [address] [place] [address] Platelet mean volume (Bld) [Entitic vol] 8.4 fL Normal 7-12 [facility] Comment on above: Performed By: #### Alhaji JEFFERY, BMP #### [facility] ([id number]) [address] [place] [address] Platelets (Bld) [#/Vol] 298 10*3/uL Normal 150-450 [facility] Comment on above: Performed By: #### Alhaji JEFFERY, BMP #### [facility] ([id number]) [address] [place] [address] RBC COUNT 5.07 X10E12/L Normal 4.1-5.7 [facility] Comment on above: Performed By: #### C BCA, BMP #### [facility] ([id number]) [address] [address] [place] [address] WBC (Bld) [#/Vol] 8.7 10*3/uL Normal 4-11 [facility] Comment on above: Performed By: #### C LATIA, BMP #### [facility] ([id number]) [address] [address] [place] [address] BASIC METABOLIC PANELon 12-16 Anion gap [Moles/Vol] 11 mmol/L Normal 5-15 [facility] Comment on above: Performed By: #### B MP #### [facility] ([facility]) [address] [place] [address] VIR Calcium [Mass/Vol] 9.3 mg/dL Normal 8.5-10.5 [facility] Comment on above: Performed By: #### B MP #### [facility] ([facility]) [address] [place] [address] VIR Chloride [Moles/Vol] 97 mmol/L Low 98-109 [facility] Comment on above: Performed By: #### B MP #### [facility] ([facility]) [address] [place] [address] VIR CO2 [Moles/Vol] 27 mmol/L Normal 22-32 [facility] Comment on above: Performed By: #### B MP #### [facility] ([facility]) [address] [place] [address] VIR Creatinine [Mass/Vol] 1.25 mg/dL Normal 0.60-1.30 [facility] Comment on above: Result Comment: METH OD TRACEABLE TO IDMS STANDARD Performed By: #### B MP #### [facility] ([facility]) [address] [place] [address] VIR GFR/1.73 sq M.predicted among non-blacks MDRD (S/P/Bld) [Vol rate/Area] 66 mL/min/{1.73_m2} Normal >=60 [facility] Comment on above: Result Comment: Repo rted eGFR is based on the CKD-EPI 2020 equation that does not use a race coefficient. Performed By: #### B MP #### [facility] ([facility]) [address] [place] [address] VIR Glucose [Mass/Vol] 112 mg/dL High 65-99 [facility] Comment on above: Performed By: #### B MP #### [facility] ([facility]) [address] [place] [address] VIR Potassium [Moles/Vol] 4.3 mmol/L Normal 3.5-5.0 [facility] Comment on above: Performed By: #### B MP #### [facility] ([facility]) [address] [place] [address] VIR Sodium [Moles/Vol] 135 mmol/L Normal 134-146 [facility] Comment on above: Performed By: #### B MP #### [facility] ([facility]) [address] [place] [address] VIR Urea nitrogen [Mass/Vol] 20 mg/dL Normal 5-27 [facility] Comment on above: Performed By: #### B MP #### [facility] ([facility]) [address] [place] [address] VIR CBC W Auto Differential pane l (Bld)on 01-02-2025 ABSOLUTE BASOPHIL 0.1 10*3/uL 0.0 - 0.2 10*3/uL [facility] Basophils/100 WBC (Bld) 1 % [facility] DIFFERENTIAL TYPE AUTOMATED DIFFERENTIAL [facility] Comment on above: PERFORMED AT [facility] [address],[place] [address] Eosinophils (Bld) [#/Vol] 0.1 10*3/uL 0.0 - 0.4 10*3/uL [facility] Eosinophils/100 WBC (Bld) 1.5 % [facility] Erythrocyte distribution width (RBC) [Ratio] 13.6 % 11.5 - 15 % [facility] Hematocrit (Bld) [Volume fraction] 48.6 % 39 - 50 % [facility] Hemoglobin (Bld) [Mass/Vol] 16.1 g/dL 13 - 17 g/dL [facility] Interpretation and review of laboratory results Abnormal [facility] Lymphocytes (Bld) [#/Vol] 1.4 10*3/uL 1.0 - 3.5 10*3/uL [facility] Lymphocytes/100 WBC (Bld) 14.7 % [facility] MCH (RBC) [Entitic mass] 31.5 pg 27 - 34 pg [facility] MCHC (RBC) [Mass/Vol] 33.2 g/dL 32 - 36 g/dL [facility] MCV (RBC) [Entitic vol] 95 fL 80 - 100 fL [facility] Monocytes (Bld) [#/Vol] 0.7 10*3/uL 0.0 - 0.9 10*3/uL [facility] Monocytes/100 WBC (Bld) 7.6 % [facility] Neutrophils (Bld) [#/Vol] 7 10*3/uL High 1.5 - 6.6 10*3/uL [facility] Neutrophils/100 WBC (Bld) 75.2 % [facility] Platelet mean volume (Bld) [Entitic vol] 9 fL 7 - 12 fL [facility] Platelets (Bld) [#/Vol] 297 10*3/uL [facility] RBC (Bld) [#/Vol] 5.11 10*6/uL [facility] WBC corrected for nucl RBC Auto (Bld) [#/Vol] 9.4 [facility] CBC WITH AUTO DIFFERENTIALon 01-02-2025 BASOPHILS ABSOLUTE COUNT (10*3/UL) BY AUTOMATED COUNT 0.1 10*3/uL Normal 0.0-0.2 [facility] Comment on above: Performed By: #### C BCA #### [facility] ([facility]) [address] [place] [address] VIR BASOPHILS RELATIVE PERCENT BY AUTOMATED COUNT 1.0 % Normal [facility] Comment on above: Performed By: #### C BCA #### [facility] ([facility]) [address] [place] [address] VIR CELLAVISION DIFFERENTIAL TYPE AUTOMATED DIFFERENTIAL Normal [facility] Comment on above: Performed By: #### C BCA #### [facility] ([facility]) [address] [place] [address] VIR Eosinophils (Bld) [#/Vol] 0.1 10*3/uL Normal 0.0-0.4 [facility] Comment on above: Performed By: #### C BCA #### [facility] ([facility]) [address] [place] [address] VIR EOSINOPHILS RELATIVE PERCENT BY AUTOMATED COUNT 1.5 % Normal [facility] Comment on above: Performed By: #### C BCA #### [facility] ([facility]) [address] [place] [address] VIR Erythrocyte distribution width (RBC) [Ratio] 13.6 % Normal 11.5-15 [facility] Comment on above: Performed By: #### C BCA #### [facility] ([facility]) [address] [place] [address] VIR Hematocrit (Bld) [Volume fraction] 48.6 % Normal 39-50 [facility] Comment on above: Performed By: #### C BCA #### [facility] ([facility]) [address] [place] [address] VIR Hemoglobin (Bld) [Mass/Vol] 16.1 g/dL Normal 13-17 [facility] Comment on above: Performed By: #### C BCA #### [facility] ([facility]) [address] [place] [address] VIR LYMPHOCYTES ABSOLUTE COUNT (10*3/UL) BY AUTOMATED COUNT 1.4 10*3/uL Normal 1.0-3.5 [facility] Comment on above: Performed By: #### C BCA #### [facility] ([facility]) [address] [place] [address] VIR LYMPHOCYTES RELATIVE PERCENT BY AUTOMATED COUNT 14.7 % Normal [facility] Comment on above: Performed By: #### C BCA #### [facility] ([facility]) [address] [place] [address] VIR MCH (RBC) [Entitic mass] 31.5 pg Normal 27-34 [facility] Comment on above: Performed By: #### C BCA #### [facility] ([facility]) [address] [place] [address] VIR MCHC (RBC) [Mass/Vol] 33.2 g/dL Normal 32-36 [facility] Comment on above: Performed By: #### C BCA #### [facility] ([facility]) [address] [place] [address] VIR MCV (RBC) [Entitic vol] 95 fL Normal 80-100 [facility] Comment on above: Performed By: #### C BCA #### [facility] ([facility]) [address] [place] [address] VIR MONOCYTES ABSOLUTE COUNT (10*3/UL) BY AUTOMATED COUNT 0.7 10*3/uL Normal 0.0-0.9 [facility] Comment on above: Performed By: #### C BCA #### [facility] ([facility]) [address] [place] [address] VIR MONOCYTES RELATIVE PERCENT BY AUTOMATED COUNT 7.6 % Normal [facility] Comment on above: Performed By: #### C BCA #### [facility] ([facility]) [address] [place] [address] VIR NEUTROPHILS ABSOLUTE COUNT BY AUTOMATED COUNT 7.0 10*3/uL High 1.5-6.6 [facility] Comment on above: Performed By: #### C BCA #### [facility] ([facility]) [address] [place] [address] VIR NEUTROPHILS RELATIVE PERCENT BY AUTOMATED COUNT 75.2 % Normal [facility] Comment on above: Performed By: #### C BCA #### [facility] ([facility]) [address] [place] [address] VIR Platelet mean volume (Bld) [Entitic vol] 9.0 fL Normal 7-12 [facility] Comment on above: Performed By: #### C BCA #### [facility] ([facility]) [address] [place] [address] VIR Platelets (Bld) [#/Vol] 297 10*3/uL Normal 150-450 [facility] Comment on above: Performed By: #### C BCA #### [facility] ([facility]) [address] [place] [address] VIR RBC COUNT 5.11 X10E12/L Normal 4.1-5.7 [facility] Comment on above: Performed By: #### C BCA #### [facility] ([facility]) [address] [place] [address] VIR WBC (Bld) [#/Vol] 9.4 10*3/uL Normal 4-11 [facility] Comment on above: Performed By: #### C BCA #### [facility] ([facility]) [address] [place] [address] VIR COMPREHENSIVE METABOLIC PANE Bharath 09-17-2024 Albumin [Mass/Vol] 4.2 g/dL Normal 3.2-5.3 [facility] Comment on above: Performed By: #### [place], [address]-1, 71531-0, FTPSA, THYR, 69913-2 #### [facility] ([id number]) [address] [place] [address] ALP [Catalytic activity/Vol] 111 U/L Normal 39-130 [facility] Comment on above: Performed By: #### C MILANA, 81918-2, 34149-6, FTPSA, THYR, 63528-3 #### [facility] ([id number]) [address] [place] [address] ALT [Catalytic activity/Vol] 20 U/L Normal 0-40 [facility] Comment on above: Performed By: #### C MILANA, 76011-7, 25733-5, FTPSA, THYR, 16595-6 #### [facility] ([id number]) [address] [place] [address] Anion gap [Moles/Vol] 11 mmol/L Normal 5-15 [facility] Comment on above: Performed By: #### C MILANA, 58878-6, 85086-4, FTPSA, THYR, 94046-7 #### [facility] ([id number]) [address] [place] [address] AST [Catalytic activity/Vol] 16 U/L Normal 0-41 [facility] Comment on above: Performed By: #### C MILANA, 53837-0, , FTPSA, THYR, 89060-4 #### [facility] ([id number]) [address] [place] [address] Bilirubin [Mass/Vol] 0.8 mg/dL Normal 0.3-1.2 [facility] Comment on above: Performed By: #### C MP, 09856-3, 89017-8, FTPSA, THYR, 72378-9 #### [facility] ([id number]) [address] [place] [address] Calcium [Mass/Vol] 9.3 mg/dL Normal 8.5-10.5 [facility] Comment on above: Performed By: #### C MP, 37600-9, 70124-3, FTPSA, THYR, 54642-8 #### [facility] ([id number]) [address] [place] [address] Chloride [Moles/Vol] 98 mmol/L Normal 98-109 [facility] Comment on above: Performed By: #### C MILANA, 13802-4, , FTPSA, THYR, 02221-8 #### [facility] ([id number]) [address] [place] [address] CO2 [Moles/Vol] 28 mmol/L Normal 22-32 [facility] Comment on above: Performed By: #### C MILANA, 11358-2, , FTPSA, THYR, 54245-5 #### [facility] ([id number]) [address] [place] [address] Creatinine [Mass/Vol] 1.26 mg/dL Normal 0.60-1.30 [facility] Comment on above: Result Comment: METH OD TRACEABLE TO IDMS STANDARD Performed By: #### C MILANA, 08337-5, , FTPSA, THYR, 68375-8 #### [facility] ([id number]) [address] [place] [address] GFR/1.73 sq M.predicted among non-blacks MDRD (S/P/Bld) [Vol rate/Area] 65 mL/min/{1.73_m2} Normal >59 [facility] Comment on above: Result Comment: Reported eGFR is based on the CKD-EPI 2020 equation that does not use a race coefficient. Performed By: #### C MILANA, 49878-0, , FTPSA, THYR, 38311-7 #### [facility] ([id number]) [address] [place] [address] Glucose [Mass/Vol] 105 mg/dL High 65-99 [facility] Comment on above: Performed By: #### C MP, 06049-1, 86264-9, FTPSA, THYR, 40646-8 #### [facility] ([id number]) [address] [place] [address] Potassium [Moles/Vol] 4.2 mmol/L Normal 3.5-5.0 [facility] Comment on above: Performed By: #### C MP, 33422-3, 39088-4, FTPSA, THYR, 06548-9 #### [facility] ([id number]) [address] [place] [address] Protein [Mass/Vol] 7.2 g/dL Normal 6.0-8.0 [facility] Comment on above: Performed By: #### Alhaji CORTÉS, 12117-7, 09068-5, FTPSA, THYR, 86935-6 #### [facility] ([id number]) [address] [place] [address] Sodium [Moles/Vol] 137 mmol/L Normal 134-146 [facility] Comment on above: Performed By: #### Alhaji CORTÉS, 18008-4, 73418-0, FTPSA, THYR, 84657-0 #### [facility] ([id number]) [address] [place] [address] Urea nitrogen [Mass/Vol] 20 mg/dL Normal 5-27 [facility] Comment on above: Performed By: #### C MP, 03973-2, 97609-6, FTPSA, THYR, 77326-1 #### [facility] ([id number]) [address] [place] [address] FREE AND TOTAL PSAon 025 % FREE PSA 23.0 Normal [facility] Comment on above: Result Comment: Percent [...] cancer and BPH. Performed By: #### C MP, 30702-2, 59842-9, FTPSA, THYR, 54091-0 #### [facility] ([id number]) [address] [address] FREE PSA 0.29 ng/mL Normal [facility] Comment on above: Performed By: #### C MILANA, 13316-1, 71311-0, FTPSA, THYR, 80043-9 #### [facility] ([id number]) [address] [address] PROSTATIC SPEC ANT 1.26 ng/mL Normal 0.00-4.00 [facility] Comment on above: Result Comment: The method used for this test is Carleen Fabio DXI chemiluminescent immunoassay. Values obtained by different assay methods cannot be used interchangeably. Performed By: #### C MILANA, 05834-4, 59019-1, FTPSA, THYR, 98897-3 #### [facility] ([id number]) [address] [address] Lipid 1996 panelon 5 Cholesterol [Mass/Vol] 124 mg/dL Low 150-200 [facility] Comment on above: Performed By: #### C MP, 89783-8, 01980-9, FTPSA, THYR, 08362-8 #### [facility] ([id number]) [address] [address] [place] [address] Cholesterol in HDL [Mass/Vol] 44 mg/dL Normal >39 [facility] Comment on above: Result Comment: HDL <40 mg/dL - High Risk HDL > or = 40mg/dL- Desirable HDL >60 mg/dL - Negative Risk Performed By: ###[place], [address]-3, 11876-0, FTPSA, THYR, 00829-5 #### [facility] ([id number]) [address] [place] [address] Cholesterol in LDL [Mass/Vol] 48 mg/dL Normal <130 [facility] Comment on above: Result Comment: LDL <100 mg/dL - Desirable LDL >160 mg/dL - High Risk Performed By: #### Alhaji CORTÉS, 98667-6, 90342-5, FTPSA, THYR, 76998-3 #### [facility] ([id number]) [address] [place] [address] Cholesterol in VLDL [Mass/Vol] 32 mg/dL High 0-30 [facility] Comment on above: Performed By: #### Alhaji CORTÉS, 90896-3, 23297-8, FTPSA, THYR, 11004-2 #### [facility] ([id number]) [address] [place] [address] CHOLESTEROL:HDL 2.8 Normal 1.0-5.0 [facility] Comment on above: Performed By: #### Alhaji CORTÉS, 99132-1, 33228-1, FTPSA, THYR, 78764-2 #### [facility] ([id number]) [address] [place] [address] Triglyceride [Mass/Vol] 162 mg/dL High 27-150 [facility] Comment on above: Performed By: #### C MILANA, 93446-9, 62945-6, FTPSA, THYR, 09593-1 #### [facility] ([id number]) [address] [place] [address] MAGNESIUMon 09-17-2024 Magnesium [Mass/Vol] 2.1 mg/dL Normal 1.8-2.6 [facility] Comment on above: Performed By: #### Alhaji CORTÉS, 92680-3, 22936-4, FTPSA, THYR, 37860-2 #### [facility] ([id number]) [address] [place] [address] THYROID PROFILEon 09-17-2024 Free T4 [Mass/Vol] 1.13 ng/dL Normal 0.61-1.60 [facility] Comment on above: Performed By: #### Alhaji CORTÉS, 19590-0, 68041-4, FTPSA, THYR, 58165-5 #### [facility] ([id number]) [address] [place] [address] TSH 1.01 uIU/mL Normal 0.49-4.67 [facility] Comment on above: Performed By: #### Alhaji CORTÉS, 77281-6, 45775-7, FTPSA, THYR, 44177-0 #### [facility] ([id number]) [address] [place] [address] Vitamin D+Metabolites [Mass/ Vol]on 09-17-2024 VITAMIN D 25 HYD TOT 24.0 ng/mL Low 30-100 [facility] Comment on above: Result Comment: Vitamin D status 25 [place] Vitamin D Deficiency <20 ng/mL Insufficiency 20-29 ng/mL Sufficiency 30-100 ng/mL Toxicity >100 ng/mL NOTE: A pediatric reference range has not been established by the kerfer machine operator of this kit. The [place] [employer] recommends a Vitamin D level of = or >20ng/mL in infants and children. Performed By: #### C MP, 01358-9, 28507-6, FTPSA, THYR, 60691-1 #### [facility] ([id number]) [address], [address] [place] [address] HbA1c (Bld) [Mass fraction]o n 06-19-2024 Interpretation and review of laboratory results Normal [facility] - Hematology and Cell countson 06-19-2024 HbA1c (Bld) [Mass fraction] 5.90 % [facility] BASIC METABOLIC PANLon 05-28 Anion gap [Moles/Vol] 7 mmol/L Normal 5-15 [facility] Comment on above: Performed By: #### C LATIA, BMP #### [facility] ([id number]) [address], [address] [place] [address] Calcium [Mass/Vol] 9.1 mg/dL Normal 8.5-10.5 [facility] Comment on above: Performed By: #### Alhaji JEFFERY, BMP #### [facility] ([id number]) [address], [address] [place] [address] Chloride [Moles/Vol] 100 mmol/L Normal 98-109 [facility] Comment on above: Performed By: #### Alhaji BCA, BMP #### [facility] ([id number]) [address], [address] [place] [address] CO2 [Moles/Vol] 31 mmol/L Normal 22-32 [facility] Comment on above: Performed By: #### Alhaji BCA, BMP #### [facility] ([id number]) [address], [address] [place] [address] Creatinine [Mass/Vol] 1.34 mg/dL High 0.60-1.30 [facility] Comment on above: Result Comment: METH OD TRACEABLE TO IDMS STANDARD Performed By: #### C BCA, BMP #### [facility] ([id number]) [address] [address] [place] [address] GFR/1.73 sq M.predicted among non-blacks MDRD (S/P/Bld) [Vol rate/Area] 61 mL/min/{1.73_m2} Normal >59 [facility] Comment on above: Result Comment: Reported eGFR is based on the CKD-EPI 2020 equation that does not use a race coefficient. Performed By: #### C LATIA, BMP #### [facility] ([id number]) [address] [address] [place] [address] Glucose [Mass/Vol] 112 mg/dL High 65-99 [facility] Comment on above: Performed By: #### C LATIA, BMP #### [facility] ([id number]) [address] [address] [place] [address] Potassium [Moles/Vol] 4.4 mmol/L Normal 3.5-5.0 [facility] Comment on above: Performed By: #### C BCA, BMP #### [facility] ([id number]) [address] [place] [address] Sodium [Moles/Vol] 138 mmol/L Normal 134-146 [facility] Comment on above: Performed By: #### C BCA, BMP #### [facility] ([id number]) [address] [address] [place] [address] Urea nitrogen [Mass/Vol] 20 mg/dL Normal 5-23 [facility] Comment on above: Performed By: #### C BCA, BMP #### [facility] ([id number]) [address] [place] [address] CBC AND AUTO DIFFon 12-11-20 24 ABSOLUTE BASOPHIL 0.1 X10E9/L Normal 0.0-0.2 [facility] Comment on above: Performed By: #### C BCA, BMP #### [facility] ([id number]) [address], [address] [place] [address] ABSOLUTE NEUTROPHIL 6.3 X10E9/L Normal 1.5-6.6 [facility] Comment on above: Performed By: #### C BCA, BMP #### [facility] ([id number]) [address], [address] [place] [address] Basophils/100 WBC (Bld) 0.9 % Normal [facility] Comment on above: Performed By: #### C BCA, BMP #### [facility] ([id number]) [address], [address] [place] [address] Eosinophils (Bld) [#/Vol] 0.1 10*3/uL Normal 0.0-0.4 [facility] Comment on above: Performed By: #### C BCA, BMP #### [facility] ([id number]) [address], [address] [place] [address] Eosinophils/100 WBC (Bld) 1.4 % Normal [facility] Comment on above: Performed By: #### C BCA, BMP #### [facility] ([id number]) [address], [address] [place] [address] Erythrocyte distribution width (RBC) [Ratio] 13.6 % Normal 11.5-15.0 [facility] Comment on above: Performed By: #### C BCA, BMP #### [facility] ([id number]) [address], [address] [place] [address] Hematocrit (Bld) [Volume fraction] 46.4 % Normal 39-49 [facility] Comment on above: Performed By: #### C BCA, BMP #### [facility] ([id number]) [address] [place] [address] Hemoglobin (Bld) [Mass/Vol] 15.8 g/dL Normal 13.0-17.0 [facility] Comment on above: Performed By: #### C LATIA, BMP #### [facility] ([id number]) [address] [place] [address] Lymphocytes (Bld) [#/Vol] 1.4 10*3/uL Normal 1.0-3.5 [facility] Comment on above: Performed By: #### C LATIA, BMP #### [facility] ([id number]) [address], [address] [place] [address] Lymphocytes/100 WBC (Bld) 16.4 % Normal [facility] Comment on above: Performed By: #### C LATIA, BMP #### [facility] ([id number]) [address] [place] [address] MCH (RBC) [Entitic mass] 32.2 pg Normal 27-34 [facility] Comment on above: Performed By: #### C LATIA, BMP #### [facility] ([id number]) [address] [place] [address] MCHC (RBC) [Mass/Vol] 34.0 g/dL Normal 32-36 [facility] Comment on above: Performed By: #### C LATIA, BMP #### [facility] ([id number]) [address], [address] [place] [address] MCV (RBC) [Entitic vol] 95 fL Normal 80-100 [facility] Comment on above: Performed By: #### C LATIA, BMP #### [facility] ([id number]) [address] [place] [address] Monocytes (Bld) [#/Vol] 0.8 10*3/uL Normal 0-0.9 [facility] Comment on above: Performed By: #### C LATIA, BMP #### [facility] ([id number]) [address] [place] [address] Monocytes/100 WBC (Bld) 9.5 % Normal [facility] Comment on above: Performed By: #### Alhaji JEFFERY, BMP #### [facility] ([id number]) [address] [place] [address] Neutrophils/100 WBC (Bld) 71.8 % Normal [facility] Comment on above: Performed By: #### C LATIA, BMP #### [facility] ([id number]) [address] [place] [address] Platelet mean volume (Bld) [Entitic vol] 9.1 fL Normal 7-12 [facility] Comment on above: Performed By: #### Alhaji JEFFERY, BMP #### [facility] ([id number]) [address] [place] [address] Platelets (Bld) [#/Vol] 272 10*3/uL Normal 150-450 [facility] Comment on above: Performed By: #### Alhaji JEFFERY, BMP #### [facility] ([id number]) [address] [place] [address] RBC COUNT 4.89 X10E12/L Normal 4.10-5.70 [facility] Comment on above: Performed By: #### Alhaji JEFFERY, BMP #### [facility] ([id number]) [address] [place] [address] WBC (Bld) [#/Vol] 8.8 10*3/uL Normal 4.0-11.0 [facility] Comment on above: Performed By: #### Alhaji JEFFERY, BMP #### [facility] ([id number]) [address] [place] [address] Natriuretic peptide B [Mass/ Vol]on 01-21-2024 Natriuretic peptide B (Bld) [Mass/Vol] 47 pg/mL NINF - 100.0 pg/mL [facility] POCT EKGon 07-26-2023 [place] Covid-19 PCR (CVDTB[facility])on 10-16 SARS-CoV-2 (COVID-19) RNA PILI+probe Ql (Unsp spec) Not detected Normal NOT DETECTED [facility] Comment on above: Performed By: #### C VDTBH #### [facility] [address] [place] [address] Dr. Jersey Butcher INFLUENZA A AND B AGon 10-26 INFLUANEGH SEE BELOW Normal [facility] Comment on above: Result Comment: Nega tive for Flu A protein angiten. Infection due to Flu A cannot be ruled out. Flu A angiten in the sample may be below the detection limit of the test. Performed By: #### T SH, BNP, HSTROPN, CMP #### [facility] [address] [place] [address] Dr. Jersey Butcher INFLUBNEGH SEE BELOW Normal [facility] Comment on above: Result Comment: Nega tive for Flu B protein antigen. Infection due to Flu B cannot be ruled out. Flu B antigen in the sample may be below the detection limit of the test. Performed By: #### T SH, BNP, HSTROPN, CMP #### [facility] [address] [place] [address] Dr. Jersey Butcher INFLUENZA A AG Negative Normal NEGATIVE SEE COMMENT [facility] Comment on above: Performed By: #### T SH, BNP, HSTROPN, CMP #### [facility] [address] [place] [address] Dr. Jersey Butcher INFLUENZA B AG Negative Normal NEGATIVE SEE COMMENT [facility] Comment on above: Performed By: #### T SH, BNP, HSTROPN, CMP #### [facility] [address] [place] [address] Dr. Jersey Butcher SYMPTOMATIC COVID-19 ANTIGEN on 10-26-2022 EUA Statement SEE BELOW Normal [facility] Comment on above: Result Comment: [...] sooner. Performed By: #### C VDTB #### [facility] [address] [place] [address] Dr. Jersey Butcher SARS-CoV-2 (COVID-19) RNA PILI+probe Ql (Unsp spec) Negative Normal NEGATIVE [facility] Comment on above: Performed By: #### C VDTBH #### [facility] [address] [place] [address] Dr. Jersey Butcher [facility] CARDIAC STRESS/REST INJE CTIONon 10-02-2022 [facility] CARDIAC STRESS/REST INJECTION Patient Name: ELYSE DUONG STUDY: MYOCARDIAL PERFUSION STRESS TEST WITH LEXISCAN Performing facility: [facility], [address] [place] [address], [address], [address] Provider: Tequila Jaffe MD, FACC PCP: Dr. Tristen Terrell Supervising provider: Mary Julien MD, FACC INDICATION: DOT physical I25.10: CAD S/P percutaneous coronary angioplasty Z98.61 HISTORY: Gender: M; Age: 57 y/o ; Height: 0 cm; Weight: 154.020907 kg. CAD; High Cholesterol; HTN; Previous ME; Arrhythmias; AFib Quit smoking 10 years ago. Cardiac catheterization 2012. PTCA on RCA. COMPARISON: No comparison. ACCESSION NUMBER(S): [id number]; [id number] ORDERING CLINICIAN: TEQUILA JAFFE TECHNIQUE: TWO DAY [...] Electronically signed by: MADISON BLANCO MD Normal [facility] No Panel Informationon 10-02 Normal [facility] 305 DO Work Phone: HEMOGLOBINon 09-15-2022 Hemoglobin (Bld) [Mass/Vol] 14.3 g/dL Normal 14.0-18.0 [facility] Comment on above: Performed By: #### T SH, BNP, HSTROPN, CMP #### [facility] [address] [address] [address] Jersey Butcher [facility]16 SARS-CoV-2 (COVID-19) RNA PILI+probe Ql (Unsp spec) Not detected Normal NOT DETECTED [facility] Comment on above: Result Comment: When [...] for this test is supported by the [place] of Health and Human Service's declaration that [...] #### T SH, BNP, HSTROPN, CMP #### [facility] [address] [address] [address] Jersey Butcher GROUP A STREP CULTUREon 08-16 S. pyogenes Ag Ql (Unsp spec) Culture Observations: NEGATIVE FOR GROUP A STREPTOCOCCUS. Normal [facility] Comment on above: Performed By: #### T SH, BNP, HSTROPN, CMP #### [facility] [address] [address] [address] Jersey Butcher STREPT SCREENon 08-27-2022 STREP SCREEN A Negative Normal NEGATIVE [facility] Comment on above: Performed By: #### T SH, BNP, HSTROPN, CMP #### [facility] [address] [address] [address] Jersey Butcher XR CHEST 1 Von 08-27-2022 XR CHEST 1 V EXAM: XR CHEST 1 V HISTORY: SHORTNESS OF BREATH COMPARISON: 05/25/2022 TECHNIQUE: Frontal view of the chest. FINDINGS: No focal consolidations or pleural effusions. Cardiomegaly. Visualized osseous structures are unremarkable. IMPRESSION: No acute disease. Electronically authenticated by: LEO MARSHALL Date: 2022-08-27 14:06 Normal [facility] Office Visit (Cardiology)on 07-19-2022 Follow-up visit [...] [address] Justyn Mondragon MD. MERGED WITH [facility] Patient to STOP Hydrochlorothiazide moving forward. [...] echocardiogram (V72.85 (more content not included)... Normal [facility] Tobacco Screening.on 023 Adult depression screening assessment No [facility] 305 DO Work Phone: Fall risk assessment a) No falls within the last year [facility] 305 DO Work Phone: Tobacco use status [facility] b) No [facility] 305 DO Work Phone: CBC W MANUAL DIFFon 06-04-20 22 ATYPICAL LYMPH # 0.14 103/ul Normal [facility] Comment on above: Performed By: #### T SH, BNP, HSTROPN, CMP #### [facility] [address] [place] [address] Dr. Jersey Butcher ATYPICAL LYMPH % 1 % Normal [facility] Comment on above: Performed By: #### T SH, BNP, HSTROPN, CMP #### [facility] [address] [place] [address] Dr. Jersey Butcher BAND # 0.0 103/ul Normal 0.0-0.3 [facility] Comment on above: Performed By: #### T SH, BNP, HSTROPN, CMP #### [facility] [address] [place] [address] Dr. Jersey Butcher BAND % 0 % Normal 0-5 [facility] Comment on above: Performed By: #### T SH, BNP, HSTROPN, CMP #### [facility] [address] [place] [address] Dr. Jersey Butcher BASOM # 0.00 103/ul Normal 0.00-0.10 [facility] Comment on above: Performed By: #### T SH, BNP, HSTROPN, CMP #### [facility] [address] [place] [address] Dr. Jersey Butcher BASOM % 0.0 % Critically low 0.2-2.0 [facility] Comment on above: Performed By: #### T SH, BNP, HSTROPN, CMP #### [facility] [address] [address] [address] Jersey Butcher BLAST # Normal [facility] Comment on above: Performed By: #### T SH, BNP, HSTROPN, CMP #### [facility] [address] [place] [address] Dr. Jersey Butcher BLAST % Normal [facility] Comment on above: Performed By: #### T SH, BNP, HSTROPN, CMP #### [facility] [address] [place] [address] Dr. Jersey Butcher CORRECTED WBC Normal 4.0-11.0 [facility] Comment on above: Performed By: #### T SH, BNP, HSTROPN, CMP #### [facility] [address] [place] [address] Dr. Jersey Butcher EOS # 0.00 103/ul Normal 0.00-0.70 [facility] Comment on above: Performed By: #### T SH, BNP, HSTROPN, CMP #### [facility] [address] [place] [address] Dr. Jersey Butcher EOS% 0.0 % Critically low 0.9-7.0 [facility] Comment on above: Performed By: #### T SH, BNP, HSTROPN, CMP #### [facility] [address] [place] [address] Dr. Jersey Butcher HCT 41.3 % Critically low 42.0-54.0 [facility] Comment on above: Performed By: #### T SH, BNP, HSTROPN, CMP #### [facility] [address] [place] [address] Dr. Jersey Butcher HGB 14.2 g/dl Normal 14.0-18.0 [facility] Comment on above: Performed By: #### T SH, BNP, HSTROPN, CMP #### [facility] [address] [address] [address] Jersey Butcher LYMPHM # 0.42 103/ul Critically low 1.20-3.80 [facility] Comment on above: Performed By: #### T SH, BNP, HSTROPN, CMP #### [facility] [address] [place] [address] Dr. Jersey Butcher LYMPHM% 3.0 % Critically low 20.5-60.0 [facility] Comment on above: Performed By: #### T SH, BNP, HSTROPN, CMP #### [facility] [address] [place] [address] Dr. Jersey Butcher MCH 30.9 pg Normal 25.9-34.0 [facility] Comment on above: Performed By: #### T SH, BNP, HSTROPN, CMP #### [facility] [address] [place] [address] Dr. Jersey Butcher MCHC 34.4 g/dl Normal 29.9-35.2 [facility] Comment on above: Performed By: #### T SH, BNP, HSTROPN, CMP #### [facility] [address] [place] [address] Dr. Jersey Butcher MCV 89.8 fL Normal 80.0-94.0 [facility] Comment on above: Performed By: #### T SH, BNP, HSTROPN, CMP #### [facility] [address] [place] [address] Dr. Jersey Butcher METAMYELOCYTE # Normal [facility] Comment on above: Performed By: #### T SH, BNP, HSTROPN, CMP #### [facility] [address] [place] [address] Dr. Jersey Butcher METAMYELOCYTE % Normal [facility] Comment on above: Performed By: #### T SH, BNP, HSTROPN, CMP #### [facility] [address] [address] [address] Jersey Butcher MONOM# 0.14 103/ul Critically low 0.30-0.80 [facility] Comment on above: Performed By: #### T SH, BNP, HSTROPN, CMP #### [facility] [address] [address] [address] Jersey Butcher MONOM% 1.0 % Critically low 1.7-12.0 [facility] Comment on above: Performed By: #### T SH, BNP, HSTROPN, CMP #### [facility] [address] [address] [address] Jersey Butcher MPV 10.4 fL Normal 9.5-13.5 [facility] Comment on above: Performed By: #### T SH, BNP, HSTROPN, CMP #### [facility] [address] [place] [address] Dr. Jersey Butcher MYELOCYTE # Normal [facility] Comment on above: Performed By: #### T SH, BNP, HSTROPN, CMP #### [facility] [address] [address] [address] Jersey Butcher MYELOCYTE % Normal [facility] Comment on above: Performed By: #### T SH, BNP, HSTROPN, CMP #### [facility] [address] [place] [address] Dr. Jersey Butcher NRBC Normal [facility] Comment on above: Performed By: #### T SH, BNP, HSTROPN, CMP #### [facility] [address] [address] [address] Jersey Butcher PLT 209 103/ul Normal 150-450 [facility] Comment on above: Performed By: #### T SH, BNP, HSTROPN, CMP #### [facility] [address] [place] [address] Dr. Jersey Butcher RBC 4.60 106/ul Critically low 4.70-6.10 [facility] Comment on above: Performed By: #### T SH, BNP, HSTROPN, CMP #### [facility] [address] [place] [address] Dr. Jersey Butcher RDW 11.9 % Normal 11.0-15.0 [facility] Comment on above: Performed By: #### T SH, BNP, HSTROPN, CMP #### [facility] [address] [address] [address] Jersey Butcher SEG # 13.30 103/ul Critically high 1.40-6.50 [facility] Comment on above: Performed By: #### T SH, BNP, HSTROPN, CMP #### [facility] [address] [address] [address] Jersey Butcher SEG % 95.0 % Critically high 43.0-75.0 [facility] Comment on above: Performed By: #### T SH, BNP, HSTROPN, CMP #### [facility] [address] [place] [address] Dr. Jersey Butcher WBC 14.0 103/ul Critically high 4.0-11.0 [facility] Comment on above: Performed By: #### T SH, BNP, HSTROPN, CMP #### [facility] [address] [place] [address] Dr. Jersey Butcher PROF 14(COMP METB)on 022 Albumin [Mass/Vol] 3.0 g/dL Critically low 3.4-5.0 [facility] Comment on above: Performed By: #### T SH, BNP, HSTROPN, CMP #### [facility] [address] [place] [address] Dr. Jersey Butcher Albumin/Globulin [Mass ratio] 0.8 {ratio} Normal [facility] Comment on above: Performed By: #### T SH, BNP, HSTROPN, CMP #### [facility] [address] [place] [address] Dr. Jersey Butcher ALP [Catalytic activity/Vol] 91 U/L Normal 46-116 [facility] Comment on above: Performed By: #### T SH, BNP, HSTROPN, CMP #### [facility] [address] [address] [address] Jersey Butcher ALT [Catalytic activity/Vol] 43 U/L Normal 16-63 [facility] Comment on above: Performed By: #### T SH, BNP, HSTROPN, CMP #### [facility] [address] [address] [address] Jersey Butcher Anion gap [Moles/Vol] 8.1 mmol/L Normal [facility] Comment on above: Performed By: #### T SH, BNP, HSTROPN, CMP #### [facility] [address] [place] [address] Dr. Jersey Butcher AST [Catalytic activity/Vol] 18 U/L Normal 15-37 [facility] Comment on above: Performed By: #### T SH, BNP, HSTROPN, CMP #### [facility] [address] [place] [address] Dr. Jersey Butcher Bilirubin [Mass/Vol] 0.4 mg/dL Normal 0.2-1.0 [facility] Comment on above: Performed By: #### T SH, BNP, HSTROPN, CMP #### [facility] [address] [place] [address] Dr. Jersey Butcher Calcium [Mass/Vol] 8.4 mg/dL Critically low 8.5-10.1 [facility] Comment on above: Performed By: #### T SH, BNP, HSTROPN, CMP #### [facility] [address] [place] [address] Dr. Jersey Butcher Chloride [Moles/Vol] 94 mmol/L Critically low 98-107 [facility] Comment on above: Performed By: #### T SH, BNP, HSTROPN, CMP #### [facility] [address] [place] [address] Dr. Jersey Butcher CO2 [Moles/Vol] 33.0 mmol/L Critically high 21.0-32.0 [facility] Comment on above: Performed By: #### T SH, BNP, HSTROPN, CMP #### [facility] [address] [address] [address] Jersey Butcher Creatinine [Mass/Vol] 1.15 mg/dL Normal 0.70-1.30 [facility] Comment on above: Performed By: #### T SH, BNP, HSTROPN, CMP #### [facility] [address] [address] [address] Jersey Butcher EGFR-AF CHILEAN >60 Normal >=60 [facility] Comment on above: Performed By: #### T SH, BNP, HSTROPN, CMP #### [facility] [address] [address] [address] Jersey Butcher EGFR-NON AF CHILEAN >60 Normal >=60 [facility] Comment on above: Performed By: #### T SH, BNP, HSTROPN, CMP #### [facility] [address] [place] [address] Dr. Jersey Butcher Globulin (S) [Mass/Vol] 3.6 g/dL Normal [facility] Comment on above: Performed By: #### T SH, BNP, HSTROPN, CMP #### [facility] [address] [place] [address] Dr. Jersey Butcher Glucose [Mass/Vol] 193 mg/dL Critically high 74-106 [facility] Comment on above: Performed By: #### T SH, BNP, HSTROPN, CMP #### [facility] [address] [place] [address] Dr. Jersey Butcher Potassium [Moles/Vol] 3.1 mmol/L Critically low 3.5-5.1 [facility] Comment on above: Performed By: #### T SH, BNP, HSTROPN, CMP #### [facility] [address] [address] [address] Jersey Butcher Protein [Mass/Vol] 6.6 g/dL Normal 6.4-8.2 [facility] Comment on above: Performed By: #### T SH, BNP, HSTROPN, CMP #### [facility] [address] [address] [address] Jersey Butcher Sodium [Moles/Vol] 132 mmol/L Critically low 136-145 [facility] Comment on above: Performed By: #### T SH, BNP, HSTROPN, CMP #### [facility] [address] [address] [address] Jersey Butcher Urea nitrogen [Mass/Vol] 22.0 mg/dL Critically high 7.0-18.0 [facility] Comment on above: Performed By: #### T SH, BNP, HSTROPN, CMP #### [facility] [address] [address] [address] Jersey Butcher Urea nitrogen/Creatinine [Mass ratio] 19.1 mg/mg Normal [facility] Comment on above: Performed By: #### T SH, BNP, HSTROPN, CMP #### [facility] [address] [place] [address] Dr. Jersey Butcher QUANTIFERON TB GOLD PLUSon 1 08-05-2021 QuantiFERON Criteria Comment [facility] Comment on above: Result [...] #### T SH, BNP, HSTROPN, CMP #### [facility] [address] [place] [address] Dr. Jersey Butcher QuantiFERON Incubation Incubation performed. Normal [facility] Comment on above: Performed By: #### T SH, BNP, HSTROPN, CMP #### [facility] [address] [place] [address] Dr. Jersey Butcher QuantiFERON Mitogen Value 4.42 IU/mL Normal [facility] Comment on above: Performed By: #### T SH, BNP, HSTROPN, CMP #### [facility] [address] [place] [address] Dr. Jersey Butcher QuantiFERON Nil Value 0.00 IU/mL Normal [facility] Comment on above: Performed By: #### T SH, BNP, HSTROPN, CMP #### [facility] [address] [place] [address] Dr. Jersey Butcher QuantiFERON TB1 Ag Value 0.00 IU/mL Normal [facility] Comment on above: Performed By: #### T SH, BNP, HSTROPN, CMP #### [facility] [address] [place] [address] Dr. Jersey Butcher QuantiFERON TB2 Ag Value 0.01 IU/mL Normal [facility] Comment on above: Performed By: #### T SH, BNP, HSTROPN, CMP #### [facility] [address] [place] [address] Dr. Jersey Butcher QuantiFERON-TB Gold Plus Negative Normal Negative [facility] Comment on above: Result Comment: No r esponse to M tuberculosis antigens detected. Infection with M tuberculosis is unlikely, but high risk individuals should be considered for additional testing (ATS/IDSA/CDC Clinical Practice Guidelines, 2017). The reference range is an Antigen minus Nil result of <0.35 IU/mL. Chemiluminescence immunoassay methodology Performed By: #### T SH, BNP, HSTROPN, CMP #### [facility] [address] [place] [address] Dr. Jersey Butcher BNPon 06-03-2022 Natriuretic peptide B (Bld) [Mass/Vol] 273.0 pg/mL Normal <=900.0 [facility] Comment on above: Performed By: #### D DIM #### [facility] [address] [place] [address] Dr. Jersey Butcher CBC W MANUAL DIFFon 06-03-20 ATYPICAL LYMPH # Normal [facility] Comment on above: Performed By: #### C BCROSIE #### [facility] [address] [place] [address] Dr. Jersey Butcher ATYPICAL LYMPH % Normal [facility] Comment on above: Performed By: #### C BCROSIE #### [facility] [address] [place] [address] Dr. Jersey Butcher BAND # 0.0 103/ul Normal 0.0-0.3 [facility] Comment on above: Performed By: #### C BCMAN #### [facility] [address] [place] [address] Dr. Jersey Butcher BAND % 0 % Normal 0-5 [facility] Comment on above: Performed By: #### C BCMAN #### [facility] [address] [place] [address] Dr. Jersey Butcher BASOM # 0.00 103/ul Normal 0.00-0.10 [facility] Comment on above: Performed By: #### C BCROSIE #### [facility] [address] [place] [address] Dr. Jersey Butcher BASOM % 0.0 % Critically low 0.2-2.0 [facility] Comment on above: Performed By: #### C BCROSIE #### [facility] [address] [place] [address] Dr. Jersey Butcher BLAST # Normal [facility] Comment on above: Performed By: #### C BCROSIE #### [facility] [address] [place] [address] Dr. Jersey Butcher BLAST % Normal [facility] Comment on above: Performed By: #### C BCROSIE #### [facility] [address] [place] [address] Dr. Jersey Butcher CORRECTED WBC Normal 4.0-11.0 [facility] Comment on above: Performed By: #### C BCROSIE #### [facility] [address] [place] [address] Dr. Jersey Butcher EOS # 0.00 103/ul Normal 0.00-0.70 [facility] Comment on above: Performed By: #### C BCROSIE #### [facility] [address] [place] [address] Dr. Jersey Butcher EOS% 0.0 % Critically low 0.9-7.0 [facility] Comment on above: Performed By: #### C BCROSIE #### [facility] [address] [place] [address] Dr. Jersey Butcher HCT 41.2 % Critically low 42.0-54.0 [facility] Comment on above: Performed By: #### C BCMAN #### [facility] [address] [address] [address] Jersey Butcher HGB 14.3 g/dl Normal 14.0-18.0 [facility] Comment on above: Performed By: #### C BCMAN #### [facility] [address] [address] [address] Jersey Butcher LYMPHM # 0.85 103/ul Critically low 1.20-3.80 [facility] Comment on above: Performed By: #### C BCMAN #### [facility] [address] [place] [address] Dr. Jersey Butcher LYMPHM% 7.0 % Critically low 20.5-60.0 [facility] Comment on above: Performed By: #### C BCMAN #### [facility] [address] [place] [address] Dr. Jersey Butcher MCH 31.3 pg Normal 25.9-34.0 [facility] Comment on above: Performed By: #### C BCROSIE #### [facility] [address] [place] [address] Dr. Jersey Butcher MCHC 34.7 g/dl Normal 29.9-35.2 [facility] Comment on above: Performed By: #### C BCROSIE #### [facility] [address] [place] [address] Dr. Jersey Butcher MCV 90.2 fL Normal 80.0-94.0 [facility] Comment on above: Performed By: #### C BCMAN #### [facility] [address] [place] [address] Dr. Jersey Butcher METAMYELOCYTE # Normal [facility] Comment on above: Performed By: #### C BCMAN #### [facility] [address] [place] [address] Dr. Jersey Butcher METAMYELOCYTE % Normal [facility] Comment on above: Performed By: #### C BCMAN #### [facility] [address] [place] [address] Dr. Jersey Butcher MONOM# 0.24 103/ul Critically low 0.30-0.80 [facility] Comment on above: Performed By: #### C MADDIE #### [facility] [address] [place] [address] Dr. Jersey Butcher MONOM% 2.0 % Normal 1.7-12.0 [facility] Comment on above: Performed By: #### C MADDIE #### [facility] [address] [place] [address] Dr. Jersey Butcher MPV 10.8 fL Normal 9.5-13.5 [facility] Comment on above: Performed By: #### C MADDIE #### [facility] [address] [place] [address] Dr. Jersey Butcher MYELOCYTE # Normal [facility] Comment on above: Performed By: #### C MADDIE #### [facility] [address] [place] [address] Dr. Jersey Butcher MYELOCYTE % Normal [facility] Comment on above: Performed By: #### C MADDIE #### [facility] [address] [place] [address] Dr. Jersey Butcher NRBC Normal [facility] Comment on above: Performed By: #### C MADDIE #### [facility] [address] [place] [address] Dr. Jersey Butcher PLT 177 103/ul Normal 150-450 [facility] Comment on above: Performed By: #### C MADDIE #### [facility] [address] [place] [address] Dr. Jersey Butcher RBC 4.57 106/ul Critically low 4.70-6.10 [facility] Comment on above: Performed By: #### C MADDIE #### [facility] [address] [place] [address] Dr. Jersey Butcher RDW 11.8 % Normal 11.0-15.0 [facility] Comment on above: Performed By: #### C MADDIE #### [facility] [address] [place] [address] Dr. Jersey Butcher SEG # 11.10 103/ul Critically high 1.40-6.50 [facility] Comment on above: Performed By: #### C MADDIE #### [facility] [id number] Jersey Butcher SEG % 91.0 % Critically high 43.0-75.0 [facility] Comment on above: Performed By: #### C MADDIE #### [facility] [id number] Jersey Butcher WBC 12.2 103/ul Critically high 4.0-11.0 [facility] Comment on above: Performed By: #### C MADDIE #### [facility] [address] [place] [address] Dr. Jersey Butcher PROF 14(COMP METB)on 022 Albumin [Mass/Vol] 2.9 g/dL Critically low 3.4-5.0 [facility] Comment on above: Performed By: #### D DIM #### [facility] [address] [place] [address] Dr. Jersey Butcher Albumin/Globulin [Mass ratio] 0.8 {ratio} Normal [facility] Comment on above: Performed By: #### D DIM #### [facility] [address] [place] [address] Dr. Jersey Butcher ALP [Catalytic activity/Vol] 90 U/L Normal 46-116 [facility] Comment on above: Performed By: #### D DIM #### [facility] [address] [place] [address] Dr. Jersey Butcher ALT [Catalytic activity/Vol] 40 U/L Normal 16-63 [facility] Comment on above: Performed By: #### D DIM #### [facility] [address] [place], [place] [id number] Dr. Jersey Butcher Anion gap [Moles/Vol] 6.7 mmol/L Normal [facility] Comment on above: Performed By: #### D DIM #### [facility] [address] [place], [place] [address] Dr. Jersey Butcher AST [Catalytic activity/Vol] 20 U/L Normal 15-37 [facility] Comment on above: Performed By: #### D DIM #### [facility] [address] [address] [address] Jersey Butcher Bilirubin [Mass/Vol] 0.4 mg/dL Normal 0.2-1.0 [facility] Comment on above: Performed By: #### D DIM #### [facility] [address] [address] [address] Jersey Butcher Calcium [Mass/Vol] 8.6 mg/dL Normal 8.5-10.1 [facility] Comment on above: Performed By: #### D DIM #### [facility] [address] [place] [address] Dr. Jersey Butcher Chloride [Moles/Vol] 95 mmol/L Critically low 98-107 [facility] Comment on above: Performed By: #### D DIM #### [facility] [address] [place] [address] Dr. Jersey Butcher CO2 [Moles/Vol] 33.6 mmol/L Critically high 21.0-32.0 [facility] Comment on above: Performed By: #### D DIM #### [facility] [address] [place] [address] Dr. Jersey Butcher Creatinine [Mass/Vol] 1.14 mg/dL Normal 0.70-1.30 [facility] Comment on above: Performed By: #### D DIM #### [facility] [address] [place] [address] Dr. Jersey Butcher EGFR-AF CHILEAN >60 Normal >=60 [facility] Comment on above: Performed By: #### D DIM #### [facility] [address] [place] [address] Dr. Jersey Butcher EGFR-NON AF CHILEAN >60 Normal >=60 [facility] Comment on above: Performed By: #### D DIM #### [facility] [address] [place] [address] Dr. Jersey Butcher Globulin (S) [Mass/Vol] 3.7 g/dL Normal [facility] Comment on above: Performed By: #### D DIM #### [facility] [address] [address] [address] Jersey Butcher Glucose [Mass/Vol] 205 mg/dL Critically high 74-106 [facility] Comment on above: Performed By: #### D DIM #### [facility] [address] [address] [address] Jersey Butcher Potassium [Moles/Vol] 3.3 mmol/L Critically low 3.5-5.1 [facility] Comment on above: Performed By: #### D DIM #### [facility] [address] [address] [address] Jersey Butcher Protein [Mass/Vol] 6.6 g/dL Normal 6.4-8.2 [facility] Comment on above: Performed By: #### D DIM #### [facility] [address] [place] [address] Dr. Jersey Butcher Sodium [Moles/Vol] 132 mmol/L Critically low 136-145 [facility] Comment on above: Performed By: #### D DIM #### [facility] [address] [place] [address] Dr. Jersey Butcher Urea nitrogen [Mass/Vol] 24.0 mg/dL Critically high 7.0-18.0 [facility] Comment on above: Performed By: #### D DIM #### [facility] [address] [place] [address] Dr. Jersey Butcher Urea nitrogen/Creatinine [Mass ratio] 21.1 mg/mg Normal [facility] Comment on above: Performed By: #### D DIM #### [facility] [address] [place] [address] Dr. Jersey Butcher BNPon 06-02-2022 Natriuretic peptide B (Bld) [Mass/Vol] 85.0 pg/mL Normal <=900.0 [facility] Comment on above: Performed By: #### C VDTBH #### [facility] [address] [place] [address] Dr. Jersey Butcher CBC AUTO DIFFon 06-02-2022 BASO # 0.0 103/ul Normal 0.0-0.1 [facility] Comment on above: Performed By: #### T SH, BNP, HSTROPN, CMP #### [facility] [address] [place] [address] Dr. Jersey Butcher Basophils/100 WBC (Bld) 0.5 % Normal 0.2-2.0 [facility] Comment on above: Performed By: #### T SH, BNP, HSTROPN, CMP #### [facility] [address] [place] [address] Dr. Jersey Butcher EO # 0.0 103/ul Normal 0.0-0.7 [facility] Comment on above: Performed By: #### T SH, BNP, HSTROPN, CMP #### [facility] [address] [place] [address] Dr. Jersey Butcher Eosinophils/100 WBC (Bld) 0.0 % Critically low 0.9-7.0 [facility] Comment on above: Performed By: #### T SH, BNP, HSTROPN, CMP #### [facility] [address] [place] [address] Dr. Jersey Butcher Erythrocyte distribution width (RBC) [Ratio] 11.5 % Normal 11.0-15.0 [facility] Comment on above: Performed By: #### T SH, BNP, HSTROPN, CMP #### [facility] [address] [place] [address] Dr. Jersey Butcher Hematocrit (Bld) [Volume fraction] 42.8 % Normal 42.0-54.0 [facility] Comment on above: Performed By: #### T SH, BNP, HSTROPN, CMP #### [facility] [address] [place] [address] Dr. Jersey Butcher Hemoglobin (Bld) [Mass/Vol] 14.6 g/dL Normal 14.0-18.0 [facility] Comment on above: Performed By: #### T SH, BNP, HSTROPN, CMP #### [facility] [address] [place] [address] Dr. Jersey Butcher IG # 0.00 10e3/ul Normal 0.00-0.03 [facility] Comment on above: Performed By: #### T SH, BNP, HSTROPN, CMP #### [facility] [address] [place] [address] Dr. Jersey Butcher IG % 0.0 % Normal 0.0-0.5 [facility] Comment on above: Performed By: #### T SH, BNP, HSTROPN, CMP #### [facility] [address] [place] [address] Dr. Jersey Butcher LYMPH # 0.4 103/ul Critically low 1.2-3.8 [facility] Comment on above: Performed By: #### T SH, BNP, HSTROPN, CMP #### [facility] [address] [place] [address] Dr. Jersey Butcher Lymphocytes/100 WBC (Bld) 18.4 % Critically low 20.5-60.0 [facility] Comment on above: Performed By: #### T SH, BNP, HSTROPN, CMP #### [facility] [address] [place] [address] Dr. Jersey Butcher MANUAL DIFF REQ NO Normal [facility] Comment on above: Performed By: #### T SH, BNP, HSTROPN, CMP #### [facility] [address] [place] [address] Dr. Jersey Butcher MCH (RBC) [Entitic mass] 30.9 pg Normal 25.9-34.0 [facility] Comment on above: Performed By: #### T SH, BNP, HSTROPN, CMP #### [facility] [address] [place] [address] Dr. Jersey Butcher MCHC (RBC) [Mass/Vol] 34.1 g/dL Normal 29.9-35.2 [facility] Comment on above: Performed By: #### T SH, BNP, HSTROPN, CMP #### [facility] [address] [place] [address] Dr. Jersey Butcher MCV (RBC) [Entitic vol] 90.7 fL Normal 80.0-94.0 [facility] Comment on above: Performed By: #### T SH, BNP, HSTROPN, CMP #### [facility] [address] [place] [address] Dr. Jersey Butcher MONO # 0.1 103/ul Critically low 0.3-0.8 [facility] Comment on above: Performed By: #### T SH, BNP, HSTROPN, CMP #### [facility] [address] [place] [address] Dr. Jersey Butcher Monocytes/100 WBC (Bld) 4.6 % Normal 1.7-12.0 [facility] Comment on above: Performed By: #### T SH, BNP, HSTROPN, CMP #### [facility] [address] [place] [address] Dr. Jersey Butcher NEUT # 1.7 103/ul Normal 1.4-6.5 [facility] Comment on above: Performed By: #### T SH, BNP, HSTROPN, CMP #### [facility] [address] [place] [address] Dr. Jersey Butcher Neutrophils/100 WBC (Bld) 76.5 % Critically high 43.0-75.0 [facility] Comment on above: Performed By: #### T SH, BNP, HSTROPN, CMP #### [facility] [address] [place] [address] Dr. Jersey Butcher Platelet mean volume (Bld) [Entitic vol] 10.1 fL Normal 9.5-13.5 [facility] Comment on above: Performed By: #### T SH, BNP, HSTROPN, CMP #### [facility] [address] [place] [address] Dr. Jersey Butcher PLT 160 103/ul Normal 150-450 [facility] Comment on above: Performed By: #### T SH, BNP, HSTROPN, CMP #### [facility] [address] [place] [address] Dr. Jersey Butcher RBC 4.72 106/ul Normal 4.70-6.10 [facility] Comment on above: Performed By: #### T SH, BNP, HSTROPN, CMP #### [facility] [address] [place] [address] Dr. Jersey Butcher WBC 2.2 103/ul Critically low 4.0-11.0 [facility] Comment on above: Performed By: #### T SH, BNP, HSTROPN, CMP #### [facility] [address] [place] [address] Dr. Jersey Butcher PROF 14(COMP METB)on 022 Albumin [Mass/Vol] 2.7 g/dL Critically low 3.4-5.0 [facility] Comment on above: Performed By: #### C VDTBH #### [facility] [address] [place] [address] Dr. Jersey Butcher Albumin/Globulin [Mass ratio] 0.7 {ratio} Normal [facility] Comment on above: Performed By: #### C VDTBH #### [facility] [address] [place] [address] Dr. Jersey Butcher ALP [Catalytic activity/Vol] 102 U/L Normal 46-116 [facility] Comment on above: Performed By: #### C VDTBH #### [facility] [address] [place] [address] Dr. Jersey Butcher ALT [Catalytic activity/Vol] 45 U/L Normal 16-63 [facility] Comment on above: Performed By: #### C VDTBH #### [facility] [address] [place] [address] Dr. Jersey Butcher Anion gap [Moles/Vol] 7.4 mmol/L Normal [facility] Comment on above: Performed By: #### C VDTBH #### [facility] [address] [place] [address] Dr. Jersey Butcher AST [Catalytic activity/Vol] 30 U/L Normal 15-37 [facility] Comment on above: Performed By: #### C VDTBH #### [facility] [address] [place] [address] Dr. Jersey Butcher Bilirubin [Mass/Vol] 0.3 mg/dL Normal 0.2-1.0 [facility] Comment on above: Performed By: #### C VDTBH #### [facility] [address] [place] [address] Dr. Jersey Butcher Calcium [Mass/Vol] 8.3 mg/dL Critically low 8.5-10.1 [facility] Comment on above: Performed By: #### C VDTBH #### [facility] [address] [place] [address] Dr. Jersey Butcher Chloride [Moles/Vol] 94 mmol/L Critically low 98-107 [facility] Comment on above: Performed By: #### C VDTBH #### [facility] [address] [place] [address] Dr. Jersey Butcher CO2 [Moles/Vol] 32.8 mmol/L Critically high 21.0-32.0 [facility] Comment on above: Performed By: #### C VDTBH #### [facility] [address] [place] [address] Dr. Jersey Butcher Creatinine [Mass/Vol] 1.23 mg/dL Normal 0.70-1.30 [facility] Comment on above: Performed By: #### C VDTBH #### [facility] [address] [place] [address] Dr. Jersey Butcher EGFR-AF CHILEAN >60 Normal >=60 [facility] Comment on above: Performed By: #### C VDTBH #### [facility] [address] [place] [address] Dr. Jersey Butcher EGFR-NON AF CHILEAN 60 mL/min/1.73m2 Normal >=60 [facility] Comment on above: Performed By: #### C VDTBH #### [facility] [address] [place] [address] Dr. Jersey Butcher Globulin (S) [Mass/Vol] 3.9 g/dL Normal [facility] Comment on above: Performed By: #### C VDTBH #### [facility] [address] [place] [address] Dr. Jersey Butcher Glucose [Mass/Vol] 314 mg/dL Critically high 74-106 T [facility] Comment on above: Performed By: #### C VDTBH #### [facility] [address] [place] [address] Dr. Jersey Butcher Potassium [Moles/Vol] 3.2 mmol/L Critically low 3.5-5.1 [facility] Comment on above: Performed By: #### C VDTBH #### [facility] [address] [place] [address] Dr. Jersey Butcher Protein [Mass/Vol] 6.6 g/dL Normal 6.4-8.2 [facility] Comment on above: Performed By: #### C VDTBH #### [facility] [address] [place] [address] Dr. Jersey Butcher Sodium [Moles/Vol] 131 mmol/L Critically low 136-145 [facility] Comment on above: Performed By: #### C VDTBH #### [facility] [address] [place] [address] Dr. Jersey Butcher Urea nitrogen [Mass/Vol] 20.0 mg/dL Critically high 7.0-18.0 [facility] Comment on above: Performed By: #### C VDTBH #### [facility] [address] [place] [address] Dr. Jersey Butcher Urea nitrogen/Creatinine [Mass ratio] 16.3 mg/mg Normal [facility] Comment on above: Performed By: #### C VDTBH #### [facility] [address] [place] [address] Dr. Jersey Butcher BNPon 06-01-2022 Natriuretic peptide B (Bld) [Mass/Vol] 70.0 pg/mL Normal <=900.0 [facility] Comment on above: Performed By: #### T SH, BNP, HSTROPN, CMP #### [facility] [address] [place] [address] Dr. Jersey Butcher CARDIAC VIDHI 3-6on 2 CK [Catalytic activity/Vol] 193 U/L Normal 39-308 [facility] Comment on above: Performed By: #### T SH, BNP, HSTROPN, CMP #### [facility] [address] [place] [address] Dr. Jersey Butcher CK.MB [Mass/Vol] 2.87 ng/mL Normal <=3.60 [facility] Comment on above: Performed By: #### T SH, BNP, HSTROPN, CMP #### [facility] [address] [place] [address] Dr. Jersey Butcher HSTROP 11.7 pg/mL Normal 4.0-76.1 [facility] Comment on above: Result Comment: CUT- OFF POINTS HAVE BEEN ESTABLISHED BASED ON THE FOURTH UNIVERSAL DEFINITIONS OF MYOCARDIAL INFARCTION. THE UPPER REFERENCE LIMIT (URL) OF TROPONIN, DEFINED THE 99TH PERCENTILE OF cTnI DISTRIBUTION IN A REFERENCE POPULATION, HAS BEEN CONFIRMED THE DECISION THRESHOLD FOR ME DIAGNOSIS. Performed By: #### T SH, BNP, HSTROPN, CMP #### [facility] [address] [place] [address] Dr. Jersey Butcher CK [Catalytic activity/Vol] 218 U/L Normal 39-308 [facility] Comment on above: Performed By: #### T SH, BNP, HSTROPN, CMP #### [facility] [address] [place] [address] Dr. Jersey Butcher CK.MB [Mass/Vol] 3.01 ng/mL Normal <=3.60 [facility] Comment on above: Performed By: #### T SH, BNP, HSTROPN, CMP #### [facility] [address] [place] [address] Dr. Jersey Butcher HSTROP 13.9 pg/mL Normal 4.0-76.1 [facility] Comment on above: Result Comment: CUT- OFF POINTS HAVE BEEN ESTABLISHED BASED ON THE FOURTH UNIVERSAL DEFINITIONS OF MYOCARDIAL INFARCTION. THE UPPER REFERENCE LIMIT (URL) OF TROPONIN, DEFINED THE 99TH PERCENTILE OF cTnI DISTRIBUTION IN A REFERENCE POPULATION, HAS BEEN CONFIRMED THE DECISION THRESHOLD FOR ME DIAGNOSIS. Performed By: #### T SH, BNP, HSTROPN, CMP #### [facility] [address] [place] [address] Dr. Jersey Butcher CBC W MANUAL DIFFon 12-15-20 22 ATYPICAL LYMPH # Normal [facility] Comment on above: Performed By: #### T SH, BNP, HSTROPN, CMP #### [facility] [address] [place] [address] Dr. Jersey Butcher ATYPICAL LYMPH % Normal [facility] Comment on above: Performed By: #### T SH, BNP, HSTROPN, CMP #### [facility] [address] [place] [address] Dr. Jersey Butcher BAND # 0.1 103/ul Normal 0.0-0.3 [facility] Comment on above: Performed By: #### T SH, BNP, HSTROPN, CMP #### [facility] [address] [place] [address] Dr. Jersey Butcher BAND % 2 % Normal 0-5 [facility] Comment on above: Performed By: #### T SH, BNP, HSTROPN, CMP #### [facility] [address] [place] [address] Dr. Jersey Butcher BASOM # 0.00 103/ul Normal 0.00-0.10 [facility] Comment on above: Performed By: #### T SH, BNP, HSTROPN, CMP #### [facility] [address] [place] [address] Dr. Jersey Butcher BASOM % 0.0 % Critically low 0.2-2.0 [facility] Comment on above: Performed By: #### T SH, BNP, HSTROPN, CMP #### [facility] [address] [place] [address] Dr. Jersey Butcher BLAST # Normal [facility] Comment on above: Performed By: #### T SH, BNP, HSTROPN, CMP #### [facility] [address] [place] [address] Dr. Jersey Butcher BLAST % Normal [facility] Comment on above: Performed By: #### T SH, BNP, HSTROPN, CMP #### [facility] [address] [place] [address] Dr. Jersey Butcher CORRECTED WBC Normal 4.0-11.0 [facility] Comment on above: Performed By: #### T SH, BNP, HSTROPN, CMP #### [facility] [address] [place] [address] Dr. Jersey Butcher EOS # 0.00 103/ul Normal 0.00-0.70 [facility] Comment on above: Performed By: #### T SH, BNP, HSTROPN, CMP #### [facility] [address] [place] [address] Dr. Jersey Butcher EOS% 0.0 % Critically low 0.9-7.0 [facility] Comment on above: Performed By: #### T SH, BNP, HSTROPN, CMP #### [facility] [address] [place] [address] Dr. Jersey Butcher HCT 45.5 % Normal 42.0-54.0 [facility] Comment on above: Performed By: #### T SH, BNP, HSTROPN, CMP #### [facility] [address] [place] [address] Dr. Jersey Butcher HGB 16.1 g/dl Normal 14.0-18.0 [facility] Comment on above: Performed By: #### T SH, BNP, HSTROPN, CMP #### [facility] [address] [place] [address] Dr. Jersey Butcher LYMPHM # 1.15 103/ul Critically low 1.20-3.80 [facility] Comment on above: Performed By: #### T SH, BNP, HSTROPN, CMP #### [facility] [address] [place] [address] Dr. Jersey Butcher LYMPHM% 25.0 % Normal 20.5-60.0 [facility] Comment on above: Performed By: #### T SH, BNP, HSTROPN, CMP #### [facility] [address] [place] [address] Dr. Jersey Butcher MCH 31.5 pg Normal 25.9-34.0 [facility] Comment on above: Performed By: #### T SH, BNP, HSTROPN, CMP #### [facility] [address] [address] [address] Jersey Butcher MCHC 35.4 g/dl Critically high 29.9-35.2 [facility] Comment on above: Performed By: #### T SH, BNP, HSTROPN, CMP #### [facility] [address] [address] [address] Jersey Butcher MCV 89.0 fL Normal 80.0-94.0 [facility] Comment on above: Performed By: #### T SH, BNP, HSTROPN, CMP #### [facility] [address] [address] [address] Jersey Butcher METAMYELOCYTE # Normal [facility] Comment on above: Performed By: #### T SH, BNP, HSTROPN, CMP #### [facility] [address] [address] [address] Jersey Butcher METAMYELOCYTE % Normal [facility] Comment on above: Performed By: #### T SH, BNP, HSTROPN, CMP #### [facility] [address] [address] [address] Jersey Butcher MONOM# 0.32 103/ul Normal 0.30-0.80 [facility] Comment on above: Performed By: #### T SH, BNP, HSTROPN, CMP #### [facility] [address] [address] [address] Jersey Butcher MONOM% 7.0 % Normal 1.7-12.0 [facility] Comment on above: Performed By: #### T SH, BNP, HSTROPN, CMP #### [facility] [address] [address] [address] Jersey Butcher MPV 10.4 fL Normal 9.5-13.5 [facility] Comment on above: Performed By: #### T SH, BNP, HSTROPN, CMP #### [facility] [address] [address] [address] Jersey Butcher MYELOCYTE # Normal [facility] Comment on above: Performed By: #### T SH, BNP, HSTROPN, CMP #### [facility] [address] [address] [address] Jersey Butcher MYELOCYTE % Normal [facility] Comment on above: Performed By: #### T SH, BNP, HSTROPN, CMP #### [facility] [address] [address] [address] Jersey Butcher NRBC Normal [facility] Comment on above: Performed By: #### T SH, BNP, HSTROPN, CMP #### [facility] [address] [address] [address] Jersey Butcher PLT 195 103/ul Normal 150-450 [facility] Comment on above: Performed By: #### T SH, BNP, HSTROPN, CMP #### [facility] [address] [address] [address] Jersey Butcher RBC 5.11 106/ul Normal 4.70-6.10 [facility] Comment on above: Performed By: #### T SH, BNP, HSTROPN, CMP #### [facility] [address] [address] [address] Jersey Butcher RDW 11.6 % Normal 11.0-15.0 [facility] Comment on above: Performed By: #### T SH, BNP, HSTROPN, CMP #### [facility] [address] [address] [address] Jersey Butcher SEG # 3.04 103/ul Normal 1.40-6.50 [facility] Comment on above: Performed By: #### T SH, BNP, HSTROPN, CMP #### [facility] [address] [address] [address] Jersey Butcher SEG % 66.0 % Normal 43.0-75.0 [facility] Comment on above: Performed By: #### T SH, BNP, HSTROPN, CMP #### [facility] [address] [address] [address] Jersey Butcher WBC 4.6 103/ul Normal 4.0-11.0 [facility] Comment on above: Performed By: #### T SH, BNP, HSTROPN, CMP #### [facility] [address] [address] [address] Jersey Butcher CTA CHEST WO W [...] by: KESHAWN ALVAREZ Date: 2022-06-01 17:55 Normal [facility] CULTURE BLOODon 06-01-2022 Microscopic examination of blood, culture Culture Observations: NO GROWTH AT 5 DAYS. Normal [facility] Comment on above: Performed By: #### Alhaji PERKINS #### [facility] [address] [address] [address] Jersey Butcher Microscopic examination of blood, culture Culture Observations: NO GROWTH AT 5 DAYS. Normal [facility] Comment on above: Performed By: #### Alhaji PERKINS #### [facility] [address] [place] [address] Dr. Jersey Butcher [facility] 05-18 SARS-CoV-2 (COVID-19) RNA PILI+probe Ql (Unsp spec) Not detected Normal NOT DETECTED [facility] Comment on above: Result Comment: When [...] for this test is supported by the Palliative Nurse of Health and Human Service's declaration that [...] used). Performed By: #### D DIM #### [facility] [address] [place] [address] Dr. Jersey Butcher LACTATE/LACTIC ACIDon 2021 Lactate [Moles/Vol] 1.3 mmol/L Normal 0.4-1.9 [facility] Comment on above: Performed By: #### T SH, BNP, HSTROPN, CMP #### [facility] [address] [place] [address] Dr. Jersey Butcher PH VENOUS BLOODon 06-01-2022 PCO2 VENOUS 45.8 mmHg Normal 40.0-52.0 [facility] Comment on above: Performed By: #### C VDTBH #### [facility] [address] [place] [address] Dr. Jersey Butcher pH VENOUS 7.508 Critically high 7.330-7.430 [facility] Comment on above: Performed By: #### C VDTBH #### [facility] [address] [place] [address] Dr. Jersey Butcher PROF 14(COMP METB)on 022 Albumin [Mass/Vol] 3.1 g/dL Critically low 3.4-5.0 [facility] Comment on above: Performed By: #### T SH, BNP, HSTROPN, CMP #### [facility] [address] [place] [address] Dr. Jersey Butcher Albumin/Globulin [Mass ratio] 0.8 {ratio} Normal [facility] Comment on above: Performed By: #### T SH, BNP, HSTROPN, CMP #### [facility] [address] [address] [address] Jersey Butcher ALP [Catalytic activity/Vol] 103 U/L Normal 46-116 [facility] Comment on above: Performed By: #### T SH, BNP, HSTROPN, CMP #### [facility] [address] [address] [address] Jersey Butcher ALT [Catalytic activity/Vol] 50 U/L Normal 16-63 [facility] Comment on above: Performed By: #### T SH, BNP, HSTROPN, CMP #### [facility] [address] [place] [address] Dr. Jersey Butcher Anion gap [Moles/Vol] 6.7 mmol/L Normal [facility] Comment on above: Performed By: #### T SH, BNP, HSTROPN, CMP #### [facility] [address] [place] [address] Dr. Jersey Butcher AST [Catalytic activity/Vol] 43 U/L Critically high 15-37 [facility] Comment on above: Performed By: #### T SH, BNP, HSTROPN, CMP #### [facility] [address] [place] [address] Dr. Jersey Butcher Bilirubin [Mass/Vol] 0.7 mg/dL Normal 0.2-1.0 [facility] Comment on above: Performed By: #### T SH, BNP, HSTROPN, CMP #### [facility] [address] [place] [address] Dr. Jersey Butcher Calcium [Mass/Vol] 8.7 mg/dL Normal 8.5-10.1 [facility] Comment on above: Performed By: #### T SH, BNP, HSTROPN, CMP #### [facility] [address] [place] [address] Dr. Jersey Butcher Chloride [Moles/Vol] 94 mmol/L Critically low 98-107 [facility] Comment on above: Performed By: #### T SH, BNP, HSTROPN, CMP #### [facility] [address] [place] [address] Dr. Jersey Butcher CO2 [Moles/Vol] 35.4 mmol/L Critically high 21.0-32.0 [facility] Comment on above: Performed By: #### T SH, BNP, HSTROPN, CMP #### [facility] [address] [address] [address] Jersey Butcher Creatinine [Mass/Vol] 1.05 mg/dL Normal 0.70-1.30 [facility] Comment on above: Performed By: #### T SH, BNP, HSTROPN, CMP #### [facility] [address] [address] [address] Jersey Butcher EGFR-AF CHILEAN >60 Normal >=60 [facility] Comment on above: Performed By: #### T SH, BNP, HSTROPN, CMP #### [facility] [address] [place] [address] Dr. Jersey Butcher EGFR-NON AF CHILEAN >60 Normal >=60 [facility] Comment on above: Performed By: #### T SH, BNP, HSTROPN, CMP #### [facility] [address] [address] [address] Jersey Butcher Globulin (S) [Mass/Vol] 3.9 g/dL Normal [facility] Comment on above: Performed By: #### T SH, BNP, HSTROPN, CMP #### [facility] [address] [place] [address] Dr. Jersey Butcher Glucose [Mass/Vol] 116 mg/dL Critically high 74-106 [facility] Comment on above: Performed By: #### T SH, BNP, HSTROPN, CMP #### [facility] [address] [address] [address] Jersey Butcher Potassium [Moles/Vol] 3.1 mmol/L Critically low 3.5-5.1 [facility] Comment on above: Performed By: #### T SH, BNP, HSTROPN, CMP #### [facility] [address] [place] [address] Dr. Jersey Butcher Protein [Mass/Vol] 7.0 g/dL Normal 6.4-8.2 [facility] Comment on above: Performed By: #### T SH, BNP, HSTROPN, CMP #### [facility] [address] [place] [address] Dr. Jersey Butcher Sodium [Moles/Vol] 133 mmol/L Critically low 136-145 [facility] Comment on above: Performed By: #### T SH, BNP, HSTROPN, CMP #### [facility] [address] [place] [address] Dr. Jersey Butcher Urea nitrogen [Mass/Vol] 19.0 mg/dL Critically high 7.0-18.0 [facility] Comment on above: Performed By: #### T SH, BNP, HSTROPN, CMP #### [facility] [address] [place] [address] Dr. Jersey Butcher Urea nitrogen/Creatinine [Mass ratio] 18.1 mg/mg Normal [facility] Comment on above: Performed By: #### T SH, BNP, HSTROPN, CMP #### [facility] [address] [place] [address] Dr. Jersey Butcher PROTIMEon 06-01-2022 INR Coag (PPP) [Relative time] 0.95 {INR} Normal [facility] Comment on above: Performed By: #### T SH, BNP, HSTROPN, CMP #### [facility] [address] [place] [address] Dr. Jersey Butcher INR GUIDELINES SEE BELOW Normal [facility] Comment on above: Result Comment: MARCIA RED INR: 2.0 - 3.0 CONDITIONS NOT LISTED BELOW 2.5 - 3.5 FOR PROSTHETIC HEART VALVE REPLACEMENT 2.5 - 3.5 RECURRENT THROMBOSIS Performed By: #### T SH, BNP, HSTROPN, CMP #### [facility] [address] [place] [address] Dr. Jersey Butcher PT Coag (PPP) [Time] 10.3 s Normal 9.0-11.6 [facility] Comment on above: Performed By: #### T SH, BNP, HSTROPN, CMP #### [facility] [address] [address] [address] Jersey Butcher PTTon 06-01-2022 aPTT Coag (Bld) [Time] 27.1 s Normal 22.3-36.2 [facility] Comment on above: Performed By: #### T SH, BNP, HSTROPN, CMP #### [facility] [address] [address] [address] Jersey Butcher TROPONIN, HIGH SENSITIVITYon 06-01-2022 HSTROP 14.8 pg/mL Normal 4.0-76.1 [facility] Comment on above: Result Comment: CUT- OFF POINTS HAVE BEEN ESTABLISHED BASED ON THE FOURTH UNIVERSAL DEFINITIONS OF MYOCARDIAL INFARCTION. THE UPPER REFERENCE LIMIT (URL) OF TROPONIN, DEFINED THE 99TH PERCENTILE OF cTnI DISTRIBUTION IN A REFERENCE POPULATION, HAS BEEN CONFIRMED THE DECISION THRESHOLD FOR ME DIAGNOSIS. Performed By: #### T SH, BNP, HSTROPN, CMP #### [facility] [address] [place] [address] Dr. Jersey Butcher TSHon 06-01-2022 TSH 0.358 uIU/mL Normal 0.358-3.740 [facility] Comment on above: Performed By: #### T SH, BNP, HSTROPN, CMP #### [facility] [address] [place] [address] Dr. Jersey Butcher Covid-19 PCR ([facility])on 05-18 SARS-CoV-2 (COVID-19) RNA PILI+probe Ql (Unsp spec) Not detected Normal NOT DETECTED [facility] Comment on above: Result Comment: This test is not yet approved or cleared by the [place] FDA. When there are no FDA-approved or cleared tests available, and other criteria are met, FDA can make tests available under an emergency access mechanism called an Emergency Use Authorization (EUA). The EUA for this test is supported by the Palliative Nurse of Health and Human Service's (HHS's) declaration [...] #### T SH, BNP, HSTROPN, CMP #### [facility] [address] [place] [address] Dr. Jersey Butcher CARDIAC VIDHI 3-6on 2 CK [Catalytic activity/Vol] 624 U/L Critically high 39-308 [facility] Comment on above: Performed By: #### T SH, BNP, HSTROPN, CMP #### [facility] [address] [place] [address] Dr. Jersey Butcher CK.MB [Mass/Vol] 0.09 ng/mL Normal <=3.60 [facility] Comment on above: Performed By: #### T SH, BNP, HSTROPN, CMP #### [facility] [address] [place] [address] Dr. Jersey Butcher HSTROP 14.9 pg/mL Normal 4.0-76.1 [facility] Comment on above: Result Comment: CUT- OFF POINTS HAVE BEEN ESTABLISHED BASED ON THE FOURTH UNIVERSAL DEFINITIONS OF MYOCARDIAL INFARCTION. THE UPPER REFERENCE LIMIT (URL) OF TROPONIN, DEFINED THE 99TH PERCENTILE OF cTnI DISTRIBUTION IN A REFERENCE POPULATION, HAS BEEN CONFIRMED THE DECISION THRESHOLD FOR ME DIAGNOSIS. Performed By: #### T SH, BNP, HSTROPN, CMP #### [facility] [address] [place] [address] Dr. Jersey Butcher CARDIAC VIDHI ADMITon 022 CK [Catalytic activity/Vol] 659 U/L Critically high 39-308 [facility] Comment on above: Performed By: #### T SH, BNP, HSTROPN, CMP #### [facility] [address] [place] [address] Dr. Jersey Butcher CK.MB [Mass/Vol] 0.16 ng/mL Normal <=3.60 [facility] Comment on above: Performed By: #### T SH, BNP, HSTROPN, CMP #### [facility] [address] [address] [address] Jersey Butcher HSTROP 15.8 pg/mL Normal 4.0-76.1 [facility] Comment on above: Result Comment: CUT- OFF POINTS HAVE BEEN ESTABLISHED BASED ON THE FOURTH UNIVERSAL DEFINITIONS OF MYOCARDIAL INFARCTION. THE UPPER REFERENCE LIMIT (URL) OF TROPONIN, DEFINED THE 99TH PERCENTILE OF cTnI DISTRIBUTION IN A REFERENCE POPULATION, HAS BEEN CONFIRMED THE DECISION THRESHOLD FOR ME DIAGNOSIS. Performed By: #### T SH, BNP, HSTROPN, CMP #### [facility] [address] [address] [address] Jersey Butcher NILDA 266 ng/mL Critically high 16-96 [facility] Comment on above: Performed By: #### T SH, BNP, HSTROPN, CMP #### [facility] [address] [address] [address] Jersey Butcher CBC AUTO DIFFon 05-26-2022 BASO # 0.0 103/ul Normal 0.0-0.1 [facility] Comment on above: Performed By: #### C MADDIE #### [facility] [address] [place] [address] Dr. Jersey Butcher Basophils/100 WBC (Bld) 0.2 % Normal 0.2-2.0 [facility] Comment on above: Performed By: #### C MADDIE #### [facility] [address] [address] [address] Jersey Butcher EO # 0.0 103/ul Normal 0.0-0.7 [facility] Comment on above: Performed By: #### C MADDIE #### [facility] [address] [place] [address] Dr. Jersey Butcher Eosinophils/100 WBC (Bld) 0.3 % Critically low 0.9-7.0 [facility] Comment on above: Performed By: #### C MADDIE #### [facility] [address] [place] [address] Dr. Jersey Butcher Erythrocyte distribution width (RBC) [Ratio] 11.9 % Normal 11.0-15.0 [facility] Comment on above: Performed By: #### C MADDIE #### [facility] [address] [place] [address] Dr. Jersey Butcher Hematocrit (Bld) [Volume fraction] 45.0 % Normal 42.0-54.0 [facility] Comment on above: Performed By: #### C MADDIE #### [facility] [address] [place] [address] Dr. Jersey Butcher Hemoglobin (Bld) [Mass/Vol] 15.6 g/dL Normal 14.0-18.0 [facility] Comment on above: Performed By: #### C MADDIE #### [facility] [address] [place] [address] Dr. Jersey Butcher IG # 0.02 10e3/ul Normal 0.00-0.03 [facility] Comment on above: Performed By: #### C MADDIE #### [facility] [address] [place] [address] Dr. Jersey Butcher IG % 0.2 % Normal 0.0-0.5 [facility] Comment on above: Performed By: #### C MADDIE #### [facility] [address] [place] [address] Dr. Jersey Butcher LYMPH # 0.4 103/ul Critically low 1.2-3.8 [facility] Comment on above: Performed By: #### C MADDIE #### [facility] [address] [place] [address] Dr. Jersey Butcher Lymphocytes/100 WBC (Bld) 3.6 % Critically low 20.5-60.0 [facility] Comment on above: Performed By: #### C MADDIE #### [facility] [address] [place] [address] Dr. Jersey Butcher MANUAL DIFF REQ NO Normal [facility] Comment on above: Performed By: #### C MADDIE #### [facility] [address] [place] [address] Dr. Jersey Butcher MCH (RBC) [Entitic mass] 32.0 pg Normal 25.9-34.0 [facility] Comment on above: Performed By: #### C MADDIE #### [facility] [address] [place] [address] Dr. Jersey Butcher MCHC (RBC) [Mass/Vol] 34.7 g/dL Normal 29.9-35.2 [facility] Comment on above: Performed By: #### C MADDIE #### [facility] [address] [place] [address] Dr. Jersey Butcher MCV (RBC) [Entitic vol] 92.2 fL Normal 80.0-94.0 [facility] Comment on above: Performed By: #### C MADDIE #### [facility] [address] [place] [address] Dr. Jersey Butcher MONO # 0.8 103/ul Normal 0.3-0.8 [facility] Comment on above: Performed By: #### C MADDIE #### [facility] [address] [place] [address] Dr. Jersey Butcher Monocytes/100 WBC (Bld) 6.9 % Normal 1.7-12.0 [facility] Comment on above: Performed By: #### C MADDIE #### [facility] [address] [place] [address] Dr. Jersey Butcher NEUT # 10.5 103/ul Critically high 1.4-6.5 [facility] Comment on above: Performed By: #### C MADDIE #### [facility] [address] [place] [address] Dr. Jersey Butcher Neutrophils/100 WBC (Bld) 88.8 % Critically high 43.0-75.0 [facility] Comment on above: Performed By: #### C MADDIE #### [facility] [address] [place] [address] Dr. Jersey Butcher Platelet mean volume (Bld) [Entitic vol] 10.1 fL Normal 9.5-13.5 [facility] Comment on above: Performed By: #### C MADDIE #### [facility] [address] [place] [address] Dr. Jersey Butcher PLT 273 103/ul Normal 150-450 [facility] Comment on above: Performed By: #### C MADDIE #### [facility] [address] [place], [place] [address] Dr. Jersey Butcher RBC 4.88 106/ul Normal 4.70-6.10 [facility] Comment on above: Performed By: #### C MADDIE #### [facility] [address] [place], [place] [address] Dr. Jersey Butcher WBC 11.8 103/ul Critically high 4.0-11.0 [facility] Comment on above: Performed By: #### C MADDIE #### [facility] [address] [place], [place] [address] Dr. Jersey Butcher Covid-19 PCR ([facility])on SARS-CoV-2 (COVID-19) RNA PILI+probe Ql (Unsp spec) Not detected Normal NOT DETECTED [facility] Comment on above: Result Comment: When [...] for this test is supported by the Palliative Nurse of Health and Human Service's declaration that [...] #### T SH, BNP, HSTROPN, CMP #### [facility] [address] [place] [address] [address] [address] Jersey Butcher INFLUENZA A AND B AGon 05-26 INFLUANEGH SEE BELOW Normal [facility] Comment on above: Result Comment: Nega tive for Flu A protein angiten. Infection due to Flu A cannot be ruled out. Flu A angiten in the sample may be below the detection limit of the test. Performed By: #### T SH, BNP, HSTROPN, CMP #### [facility] [address] [place] [address] Dr. Jersey Butcher [facility] SEE BELOW Normal [facility] Comment on above: Result Comment: Nega tive for Flu B protein antigen. Infection due to Flu B cannot be ruled out. Flu B antigen in the sample may be below the detection limit of the test. Performed By: #### T SH, BNP, HSTROPN, CMP #### [facility] [address] [place] [address] Dr. Jersey Butcher INFLUENZA A AG Negative Normal NEGATIVE SEE COMMENT [facility] Comment on above: Performed By: #### T SH, BNP, HSTROPN, CMP #### [facility] [address] [place] [address] Dr. Jersey Butcher INFLUENZA B AG Negative Normal NEGATIVE SEE COMMENT [facility] Comment on above: Performed By: #### T SH, BNP, HSTROPN, CMP #### [facility] [address] [place] [address] Dr. Jersey Butcher INTERNAL CONTROLS Within Normal Limits Normal Wi thin Normal Limits [facility] Comment on above: Performed By: #### T SH, BNP, HSTROPN, CMP #### [facility] [address] [place] [address] Dr. Jersey Butcher LACTATE/LACTIC ACIDon 2021 Lactate [Moles/Vol] 1.8 mmol/L Normal 0.4-1.9 [facility] Comment on above: Performed By: #### T SH, BNP, HSTROPN, CMP #### [facility] [address] [place] [address] Dr. Jersey Butcher PROF CHEM 8 (BAS METB)on Anion gap [Moles/Vol] 7.1 mmol/L Normal [facility] Comment on above: Performed By: #### T SH, BNP, HSTROPN, CMP #### [facility] [address] [place] [address] Dr. Jersey Butcher Calcium [Mass/Vol] 8.9 mg/dL Normal 8.5-10.1 [facility] Comment on above: Performed By: #### T SH, BNP, HSTROPN, CMP #### [facility] [address] [address] [address] Jersey Butcher Chloride [Moles/Vol] 95 mmol/L Critically low 98-107 [facility] Comment on above: Performed By: #### T SH, BNP, HSTROPN, CMP #### [facility] [address] [place] [address] Dr. Jersey Butcher CO2 [Moles/Vol] 33.2 mmol/L Critically high 21.0-32.0 [facility] Comment on above: Performed By: #### T SH, BNP, HSTROPN, CMP #### [facility] [address] [place] [address] Dr. Jersey Butcher Creatinine [Mass/Vol] 1.19 mg/dL Normal 0.70-1.30 [facility] Comment on above: Performed By: #### T SH, BNP, HSTROPN, CMP #### [facility] [address] [place] [address] Dr. Jersey Butcher EGFR-AF CHILEAN >60 Normal >=60 [facility] Comment on above: Performed By: #### T SH, BNP, HSTROPN, CMP #### [facility] [address] [place] [address] Dr. Jersey Butcher EGFR-NON AF CHILEAN >60 Normal >=60 [facility] Comment on above: Performed By: #### T SH, BNP, HSTROPN, CMP #### [facility] [address] [place] [address] Dr. Jersey Butcher Glucose [Mass/Vol] 135 mg/dL Critically high 74-106 [facility] Comment on above: Performed By: #### T SH, BNP, HSTROPN, CMP #### [facility] [address] [place] [address] Dr. Jersey Butcher Potassium [Moles/Vol] 3.3 mmol/L Critically low 3.5-5.1 [facility] [facility] Comment on above: Performed By: #### T SH, BNP, HSTROPN, CMP #### [facility] [address] [address] [address] Jersey Butcher Sodium [Moles/Vol] 132 mmol/L Critically low 136-145 [facility] Comment on above: Performed By: #### T SH, BNP, HSTROPN, CMP #### [facility] [address] [address] [address] Jersey Butcher Urea nitrogen [Mass/Vol] 18.0 mg/dL Normal 7.0-18.0 [facility] Comment on above: Performed By: #### T SH, BNP, HSTROPN, CMP #### [facility] [address] [address] [address] Jersey Butcher Urea nitrogen/Creatinine [Mass ratio] 15.1 mg/mg Normal [facility] Comment on above: Performed By: #### T SH, BNP, HSTROPN, CMP #### [facility] [address] [address] [address] Jersey Butcher RSVon 05-26-2022 RSV AG Negative Normal NEGATIVE [facility] Comment on above: Performed By: #### T SH, BNP, HSTROPN, CMP #### [facility] [address] [place] [address] Dr. Jersey Butcher XR CHEST 1 Von [...] MARLENE ARAMBULA Date: 2022-05-26 00:45 Normal [facility] BNPon 05-20-2022 Natriuretic peptide B (Bld) [Mass/Vol] 137.0 pg/mL Normal <=900.0 [facility] Comment on above: Performed By: #### C VDTBH #### [facility] [address] [place] [address] Dr. Jersey Butcher CARDIAC VIDHI 3-6on 2 CK [Catalytic activity/Vol] 139 U/L Normal 39-308 [facility] Comment on above: Performed By: #### C VDTBH #### [facility] [address] [place] [address] Dr. Jersey Butcher CK.MB [Mass/Vol] 2.85 ng/mL Normal <=3.60 [facility] Comment on above: Performed By: #### C VDTBH #### [facility] [address] [place] [address] Dr. Jersey Butcher HSTROP 78.1 pg/mL Critically high 4.0-76.1 [facility] Comment on above: Result Comment: CUT- OFF POINTS HAVE BEEN ESTABLISHED BASED ON THE FOURTH UNIVERSAL DEFINITIONS OF MYOCARDIAL INFARCTION. THE UPPER REFERENCE LIMIT (URL) OF TROPONIN, DEFINED THE 99TH PERCENTILE OF cTnI DISTRIBUTION IN A REFERENCE POPULATION, HAS BEEN CONFIRMED THE DECISION THRESHOLD FOR ME DIAGNOSIS. Performed By: #### C VDTBH #### [facility] [address] [place] [address] Dr. Jersey Butcher CK [Catalytic activity/Vol] 159 U/L Normal 39-308 [facility] Comment on above: Performed By: #### T SH, BNP, HSTROPN, CMP #### [facility] [address] [place] [address] Dr. Jersey Butcher CK.MB [Mass/Vol] 3.45 ng/mL Normal <=3.60 [facility] Comment on above: Performed By: #### T SH, BNP, HSTROPN, CMP #### [facility] [address] [place] [address] Dr. Jersey Butcher HSTROP 84.8 pg/mL Critically high 4.0-76.1 [facility] Comment on above: Result Comment: CUT- OFF POINTS HAVE BEEN ESTABLISHED BASED ON THE FOURTH UNIVERSAL DEFINITIONS OF MYOCARDIAL INFARCTION. THE UPPER REFERENCE LIMIT (URL) OF TROPONIN, DEFINED THE 99TH PERCENTILE OF cTnI DISTRIBUTION IN A REFERENCE POPULATION, HAS BEEN CONFIRMED THE DECISION THRESHOLD FOR ME DIAGNOSIS. Performed By: #### T SH, BNP, HSTROPN, CMP #### [facility] [address] [place] [address] Dr. Jersey Butcher CARDIAC VIDHI ADMITon 022 CK [Catalytic activity/Vol] 170 U/L Normal 39-308 [facility] Comment on above: Performed By: #### C VDTBH #### [facility] [address] [place] [address] Dr. Jersey Butcher CK.MB [Mass/Vol] 2.94 ng/mL Normal <=3.60 [facility] Comment on above: Performed By: #### C VDTBH #### [facility] [address] [place] [address] Dr. Jersey Butcher HSTROP 82.2 pg/mL Critically high 4.0-76.1 [facility] Comment on above: Result Comment: CUT- OFF POINTS HAVE BEEN ESTABLISHED BASED ON THE FOURTH UNIVERSAL DEFINITIONS OF MYOCARDIAL INFARCTION. THE UPPER REFERENCE LIMIT (URL) OF TROPONIN, DEFINED THE 99TH PERCENTILE OF cTnI DISTRIBUTION IN A REFERENCE POPULATION, HAS BEEN CONFIRMED THE DECISION THRESHOLD FOR ME DIAGNOSIS. Performed By: #### C VDTBH #### [facility] [address] [place] [address] Dr. Jersey Butcher NILDA 72 ng/mL Normal 16-96 [facility] Comment on above: Performed By: #### C VDTBH #### [facility] [address] [place] [address] Dr. Jersey Butcher CBC AUTO DIFFon 05-20-2022 BASO # 0.0 103/ul Normal 0.0-0.1 [facility] Comment on above: Performed By: #### C BC #### [facility] [address] [place] [address] Dr. Jersey Butcher Basophils/100 WBC (Bld) 0.3 % Normal 0.2-2.0 [facility] Comment on above: Performed By: #### C BC #### [facility] [address] [address] [address] Jersey Butcher EO # 0.1 103/ul Normal 0.0-0.7 [facility] Comment on above: Performed By: #### C BC #### [facility] [address] [place] [address] Dr. Jersey Butcher Eosinophils/100 WBC (Bld) 1.8 % Normal 0.9-7.0 [facility] Comment on above: Performed By: #### C BC #### [facility] [address] [place] [address] Dr. Jersey Butcher Erythrocyte distribution width (RBC) [Ratio] 11.9 % Normal 11.0-15.0 [facility] Comment on above: Performed By: #### C BC #### [facility] [address] [place] [address] Dr. Jersey Butcher Hematocrit (Bld) [Volume fraction] 43.5 % Normal 42.0-54.0 [facility] Comment on above: Performed By: #### C BC #### [facility] [address] [place] [address] Dr. Jersey Butcher Hemoglobin (Bld) [Mass/Vol] 15.4 g/dL Normal 14.0-18.0 [facility] Comment on above: Performed By: #### C BC #### [facility] [address] [place] [address] Dr. Jersey Butcher IG # 0.01 10e3/ul Normal 0.00-0.03 [facility] Comment on above: Performed By: #### C BC #### [facility] [address] [place] [address] Dr. Jersey Butcher IG % 0.2 % Normal 0.0-0.5 [facility] Comment on above: Performed By: #### C BC #### [facility] [address] [place] [address] Dr. Jersey Butcher LYMPH # 1.4 103/ul Normal 1.2-3.8 [facility] Comment on above: Performed By: #### C BC #### [facility] [address] [place] [address] Dr. Jersey Butcher Lymphocytes/100 WBC (Bld) 21.0 % Normal 20.5-60.0 [facility] Comment on above: Performed By: #### C BC #### [facility] [address] [place] [address] Dr. Jersey Butcher MANUAL DIFF REQ NO Normal [facility] Comment on above: Performed By: #### C BC #### [facility] [address] [place] [address] Dr. Jersey Butcher MCH (RBC) [Entitic mass] 32.2 pg Normal 25.9-34.0 [facility] Comment on above: Performed By: #### C BC #### [facility] [address] [place] [address] Dr. Jersey Butcher MCHC (RBC) [Mass/Vol] 35.4 g/dL Critically high 29.9-35.2 [facility] Comment on above: Performed By: #### C BC #### [facility] [address] [place] [address] Dr. Jersey Butcher MCV (RBC) [Entitic vol] 91.0 fL Normal 80.0-94.0 [facility] Comment on above: Performed By: #### C BC #### [facility] [address] [place] [address] Dr. Jersey Butcher MONO # 1.0 103/ul Critically high 0.3-0.8 [facility] Comment on above: Performed By: #### C BC #### [facility] [address] [place] [address] Dr. Jersey Butcher Monocytes/100 WBC (Bld) 14.9 % Critically high 1.7-12.0 [facility] Comment on above: Performed By: #### C BC #### [facility] [address] [place] [address] Dr. Jersey Butcher NEUT # 4.0 103/ul Normal 1.4-6.5 [facility] Comment on above: Performed By: #### C BC #### [facility] [address] [place] [address] Dr. Jersey Butcher Neutrophils/100 WBC (Bld) 61.8 % Normal 43.0-75.0 [facility] Comment on above: Performed By: #### C BC #### [facility] [address] [place] [address] Dr. Jersey Butcher Platelet mean volume (Bld) [Entitic vol] 9.7 fL Normal 9.5-13.5 [facility] Comment on above: Performed By: #### C BC #### [facility] [address] [place] [address] Dr. Jersey Butcher PLT 246 103/ul Normal 150-450 [facility] Comment on above: Performed By: #### C BC #### [facility] [address] [place] [address] Dr. Jersey Butcher RBC 4.78 106/ul Normal 4.70-6.10 [facility] Comment on above: Performed By: #### C BC #### [facility] [address] [place] [address] Dr. Jersey Butcher WBC 6.5 103/ul Normal 4.0-11.0 [facility] Comment on above: Performed By: #### C BC #### [facility] [address] [place] [address] Dr. Jersey Butcher BASO # 0.0 103/ul Normal 0.0-0.1 [facility] Comment on above: Performed By: #### C BC #### [facility] [address] [place] [address] Dr. Jersey Butcher Basophils/100 WBC (Bld) 0.3 % Normal 0.2-2.0 [facility] Comment on above: Performed By: #### C BC #### [facility] [address] [place] [address] Dr. Jersey Butcher EO # 0.1 103/ul Normal 0.0-0.7 [facility] Comment on above: Performed By: #### C BC #### [facility] [address] [place] [address] Dr. Jersey Butcher Eosinophils/100 WBC (Bld) 1.4 % Normal 0.9-7.0 [facility] Comment on above: Performed By: #### C BC #### [facility] [address] [place] [address] Dr. Jersey Butcher Erythrocyte distribution width (RBC) [Ratio] 11.9 % Normal 11.0-15.0 [facility] Comment on above: Performed By: #### C BC #### [facility] [address] [place] [address] Dr. Jersey Butcher Hematocrit (Bld) [Volume fraction] 42.5 % Normal 42.0-54.0 [facility] Comment on above: Performed By: #### C BC #### [facility] [address] [place] [address] Dr. Jersey Butcher Hemoglobin (Bld) [Mass/Vol] 14.7 g/dL Normal 14.0-18.0 [facility] Comment on above: Performed By: #### C BC #### [facility] [address] [place] [address] Dr. Jersey Butcher IG # 0.02 10e3/ul Normal 0.00-0.03 [facility] Comment on above: Performed By: #### C BC #### [facility] [address] [place] [address] Dr. Jersey Butcher IG % 0.3 % Normal 0.0-0.5 [facility] Comment on above: Performed By: #### C BC #### [facility] [address] [place] [address] Dr. Jersey Butcher LYMPH # 2.0 103/ul Normal 1.2-3.8 [facility] Comment on above: Performed By: #### C BC #### [facility] [address] [place] [address] Dr. Jersey Butcher Lymphocytes/100 WBC (Bld) 28.9 % Normal 20.5-60.0 [facility] Comment on above: Performed By: #### C BC #### [facility] [address] [place] [address] Dr. Jersey Butcher MANUAL DIFF REQ NO Normal [facility] Comment on above: Performed By: #### C BC #### [facility] [address] [address] [address] Jersey Butcher MCH (RBC) [Entitic mass] 31.8 pg Normal 25.9-34.0 [facility] Comment on above: Performed By: #### C BC #### [facility] [address] [place] [address] Dr. Jersey Butcher MCHC (RBC) [Mass/Vol] 34.6 g/dL Normal 29.9-35.2 [facility] Comment on above: Performed By: #### C BC #### [facility] [address] [place] [address] Dr. Jersey Butcher MCV (RBC) [Entitic vol] 92.0 fL Normal 80.0-94.0 [facility] Comment on above: Performed By: #### C BC #### [facility] [address] [place] [address] Dr. Jersey Butcher MONO # 1.1 103/ul Critically high 0.3-0.8 [facility] Comment on above: Performed By: #### C BC #### [facility] [address] [place] [address] Dr. Jersey Butcher Monocytes/100 WBC (Bld) 15.3 % Critically high 1.7-12.0 [facility] Comment on above: Performed By: #### C BC #### [facility] [address] [place] [address] Dr. Jersey Butcher NEUT # 3.7 103/ul Normal 1.4-6.5 [facility] Comment on above: Performed By: #### C BC #### [facility] [address] [place] [address] Dr. Jersey Butcher Neutrophils/100 WBC (Bld) 53.8 % Normal 43.0-75.0 [facility] Comment on above: Performed By: #### C BC #### [facility] [address] [place] [address] Dr. Jersey Butcher Platelet mean volume (Bld) [Entitic vol] 9.9 fL Normal 9.5-13.5 [facility] Comment on above: Performed By: #### C BC #### [facility] [address] [place] [address] Dr. Jersey Butcher PLT 268 103/ul Normal 150-450 [facility] Comment on above: Performed By: #### C BC #### [facility] [address] [address] [address] Jersey Butcher RBC 4.62 106/ul Critically low 4.70-6.10 [facility] Comment on above: Performed By: #### C BC #### [facility] [address] [place] [address] Dr. Jersey Butcher WBC 7.0 103/ul Normal 4.0-11.0 [facility] Comment on above: Performed By: #### C BC #### [facility] [address] [place] [address] Dr. Jersey Butcher Covid-19 PCR ([facility])on SARS-CoV-2 (COVID-19) RNA PILI+probe Ql (Unsp spec) Not detected Normal NOT DETECTED [facility] Comment on above: Result Comment: When [...] for this test is supported by the [place] of Health and Human Service's declaration that [...] #### T SH, BNP, HSTROPN, CMP #### [facility] [address] [place] [address] Dr. Jersey Butcher D-DIMERon 05-20-2022 D-DIMER 0.57 mg/L FEU Normal <=0.59 [facility] Comment on above: Performed By: #### D DIM #### [facility] [address] [place] [address] Dr. Jersey Butcher D-DIMER COMMENTS SEE BELOW Normal [facility] Comment on above: Result Comment: Incr eases [...] hospitalization. Performed By: #### D DIM #### [facility] [address] [place] [address] Dr. Jersey Butcher PROF CHEM 8 (BAS METB)on Anion gap [Moles/Vol] 6.5 mmol/L Normal [facility] Comment on above: Performed By: #### C MADDIE #### [facility] [address] [place] [address] Dr. Jersey Butcher Calcium [Mass/Vol] 8.8 mg/dL Normal 8.5-10.1 [facility] Comment on above: Performed By: #### C BCMAN #### [facility] [address] [place] [address] Dr. Jersey Butcher Chloride [Moles/Vol] 99 mmol/L Normal 98-107 [facility] Comment on above: Performed By: #### C BCMAN #### [facility] [address] [place] [address] Dr. Jersey Butcher CO2 [Moles/Vol] 35.8 mmol/L Critically high 21.0-32.0 [facility] Comment on above: Performed By: #### C BCMAN #### [facility] [address] [place] [address] Dr. Jersey Butcher Creatinine [Mass/Vol] 0.84 mg/dL Normal 0.70-1.30 [facility] Comment on above: Performed By: #### C BCMAN #### [facility] [address] [address] [address] Jersey Butcher EGFR-AF CHILEAN >60 Normal >=60 [facility] Comment on above: Performed By: #### C BCMAN #### [facility] [address] [address] [address] Jersey Butcher EGFR-NON AF CHILEAN >60 Normal >=60 [facility] Comment on above: Performed By: #### C BCMAN #### [facility] [address] [address] [address] Jersey Butcher Glucose [Mass/Vol] 108 mg/dL Critically high 74-106 [facility] Comment on above: Performed By: #### C BCROSIE #### [facility] [address] [address] [address] Jersey Butcher Potassium [Moles/Vol] 3.3 mmol/L Critically low 3.5-5.1 [facility] Comment on above: Performed By: #### C BCROSIE #### [facility] [address] [place] [address] Dr. Jersey Butcher Sodium [Moles/Vol] 138 mmol/L Normal 136-145 [facility] Comment on above: Performed By: #### C BCROSIE #### [facility] [address] [address] [address] Jersey Butcher Urea nitrogen [Mass/Vol] 17.0 mg/dL Normal 7.0-18.0 [facility] Comment on above: Performed By: #### C BCMAN #### [facility] [address] [address] [address] Jersey Butcher Urea nitrogen/Creatinine [Mass ratio] 20.2 mg/mg Normal [facility] Comment on above: Performed By: #### C BCMAN #### [facility] [address] [address] [address] Jersey Butcher Anion gap [Moles/Vol] 6.8 mmol/L Normal [facility] Comment on above: Performed By: #### C VDTBH #### [facility] [address] [address] [address] Jersey Butcher Calcium [Mass/Vol] 8.8 mg/dL Normal 8.5-10.1 [facility] Comment on above: Performed By: #### C VDTBH #### [facility] [address] [address] [address] Jersey Butcher Chloride [Moles/Vol] 98 mmol/L Normal 98-107 [facility] Comment on above: Performed By: #### C VDTBH #### [facility] [address] [address] [address] Jersey Butcher CO2 [Moles/Vol] 35.5 mmol/L Critically high 21.0-32.0 [facility] Comment on above: Performed By: #### C VDTBH #### [facility] [address] [place] [address] Dr. Jersey Butcher Creatinine [Mass/Vol] 0.95 mg/dL Normal 0.70-1.30 [facility] Comment on above: Performed By: #### C VDTBH #### [facility] [address] [place] [address] Dr. Jersey Butcher EGFR-AF CHILEAN >60 Normal >=60 [facility] Comment on above: Performed By: #### C VDTBH #### [facility] [address] [address] [address] Jersey Butcher EGFR-NON AF CHILEAN >60 Normal >=60 [facility] Comment on above: Performed By: #### C VDTBH #### [facility] [address] [place] [address] Dr. Jersey Butcher Glucose [Mass/Vol] 96 mg/dL Normal 74-106 [facility] Comment on above: Performed By: #### C VDTBH #### [facility] [address] [place] [address] Dr. Jersey Butcher Potassium [Moles/Vol] 3.3 mmol/L Critically low 3.5-5.1 [facility] Comment on above: Performed By: #### C VDTBH #### [facility] [address] [address] [address] Jersey Butcher Sodium [Moles/Vol] 137 mmol/L Normal 136-145 [facility] Comment on above: Performed By: #### C VDTBH #### [facility] [address] [address] [address] Jersey Butcher Urea nitrogen [Mass/Vol] 21.0 mg/dL Critically high 7.0-18.0 [facility] Comment on above: Performed By: #### C VDTBH #### [facility] [address] [address] [address] Jersey Butcher Urea nitrogen/Creatinine [Mass ratio] 22.1 mg/mg Normal [facility] Comment on above: Performed By: #### C VDTBH #### [facility] [address] [place] [address] Dr. Jersey Butcher TROPONIN, HIGH SENSITIVITYon 05-20-2022 HSTROP 56.7 pg/mL Normal 4.0-76.1 [facility] Comment on above: Result Comment: CUT- OFF POINTS HAVE BEEN ESTABLISHED BASED ON THE FOURTH UNIVERSAL DEFINITIONS OF MYOCARDIAL INFARCTION. THE UPPER REFERENCE LIMIT (URL) OF TROPONIN, DEFINED THE 99TH PERCENTILE OF cTnI DISTRIBUTION IN A REFERENCE POPULATION, HAS BEEN CONFIRMED THE DECISION THRESHOLD FOR ME DIAGNOSIS. Performed By: #### C VDTBH #### [facility] [address] [place] [address] Dr. Jersey Butcher HSTROP 78.4 pg/mL Critically high 4.0-76.1 [facility] Comment on above: Result Comment: CUT- OFF POINTS HAVE BEEN ESTABLISHED BASED ON THE FOURTH UNIVERSAL DEFINITIONS OF MYOCARDIAL INFARCTION. THE UPPER REFERENCE LIMIT (URL) OF TROPONIN, DEFINED THE 99TH PERCENTILE OF cTnI DISTRIBUTION IN A REFERENCE POPULATION, HAS BEEN CONFIRMED THE DECISION THRESHOLD FOR ME DIAGNOSIS. Performed By: #### C BCMAN #### [facility] [address] [address] [address] Jersey Butcher HSTROP 85.4 pg/mL Critically high 4.0-76.1 [facility] Comment on above: Result Comment: CUT- OFF POINTS HAVE BEEN ESTABLISHED BASED ON THE FOURTH UNIVERSAL DEFINITIONS OF MYOCARDIAL INFARCTION. THE UPPER REFERENCE LIMIT (URL) OF TROPONIN, DEFINED THE 99TH PERCENTILE OF cTnI DISTRIBUTION IN A REFERENCE POPULATION, HAS BEEN CONFIRMED THE DECISION THRESHOLD FOR ME DIAGNOSIS. Performed By: #### C BCROSIE #### [facility] [address] [place] [address] Dr. Jersey Butcher XR CHEST 1 Von [...] SANDEEP MARY Date: 2022-05-20 00:59 Normal [facility] CBC AUTO DIFFon 02-04-2022 BASO # 0.0 103/ul Normal 0.0-0.1 [facility] Comment on above: Performed By: #### T SH, BNP, HSTROPN, CMP #### [facility] [address] [place] [address] Dr. Jersey Butcher Basophils/100 WBC (Bld) 0.2 % Normal 0.2-2.0 [facility] Comment on above: Performed By: #### T SH, BNP, HSTROPN, CMP #### [facility] [address] [address] [address] Jersey Butcher EO # 0.0 103/ul Normal 0.0-0.7 [facility] Comment on above: Performed By: #### T SH, BNP, HSTROPN, CMP #### [facility] [address] [place] [address] Dr. Jersey Butcher Eosinophils/100 WBC (Bld) 0.4 % Critically low 0.9-7.0 [facility] Comment on above: Performed By: #### T SH, BNP, HSTROPN, CMP #### [facility] [address] [place] [address] Dr. Jersey Butcher Erythrocyte distribution width (RBC) [Ratio] 12.4 % Normal 11.0-15.0 [facility] Comment on above: Performed By: #### T SH, BNP, HSTROPN, CMP #### [facility] [address] [place] [address] Dr. Jersey Butcher Hematocrit (Bld) [Volume fraction] 41.9 % Critically low 42.0-54.0 [facility] Comment on above: Performed By: #### T SH, BNP, HSTROPN, CMP #### [facility] [address] [place] [address] Dr. Jersey Butcher Hemoglobin (Bld) [Mass/Vol] 14.5 g/dL Normal 14.0-18.0 [facility] Comment on above: Performed By: #### T SH, BNP, HSTROPN, CMP #### [facility] [address] [place] [address] Dr. Jersey Butcher IG # 0.02 10e3/ul Normal 0.00-0.03 [facility] Comment on above: Performed By: #### T SH, BNP, HSTROPN, CMP #### [facility] [address] [place] [address] Dr. Jersey Butcher IG % 0.2 % Normal 0.0-0.5 [facility] Comment on above: Performed By: #### T SH, BNP, HSTROPN, CMP #### [facility] [address] [place] [address] Dr. Jersey Butcher LYMPH # 0.9 103/ul Critically low 1.2-3.8 [facility] Comment on above: Performed By: #### T SH, BNP, HSTROPN, CMP #### [facility] [address] [place] [address] Dr. Jersey Butcher Lymphocytes/100 WBC (Bld) 10.2 % Critically low 20.5-60.0 [facility] Comment on above: Performed By: #### T SH, BNP, HSTROPN, CMP #### [facility] [address] [place] [address] Dr. Jersey Butcher MANUAL DIFF REQ NO Normal [facility] Comment on above: Performed By: #### T SH, BNP, HSTROPN, CMP #### [facility] [address] [place] [address] Dr. Jersey Butcher MCH (RBC) [Entitic mass] 32.3 pg Normal 25.9-34.0 [facility] Comment on above: Performed By: #### T SH, BNP, HSTROPN, CMP #### [facility] [address] [place] [address] Dr. Jersey Butcher MCHC (RBC) [Mass/Vol] 34.6 g/dL Normal 29.9-35.2 [facility] Comment on above: Performed By: #### T SH, BNP, HSTROPN, CMP #### [facility] [address] [place] [address] Dr. Jersey Butcher MCV (RBC) [Entitic vol] 93.3 fL Normal 80.0-94.0 [facility] Comment on above: Performed By: #### T SH, BNP, HSTROPN, CMP #### [facility] [address] [place] [address] Dr. Jersey Butcher MONO # 0.8 103/ul Normal 0.3-0.8 [facility] Comment on above: Performed By: #### T SH, BNP, HSTROPN, CMP #### [facility] [address] [place] [place] [address] Dr. Jersey Butcher Monocytes/100 WBC (Bld) 9.4 % Normal 1.7-12.0 [facility] Comment on above: Performed By: #### T SH, BNP, HSTROPN, CMP #### [facility] [address] [place] [address] Dr. Jersey Butcher NEUT # 6.6 103/ul Critically high 1.4-6.5 [facility] Comment on above: Performed By: #### T SH, BNP, HSTROPN, CMP #### [facility] [address] [place] [address] Dr. Jersey Butcher Neutrophils/100 WBC (Bld) 79.6 % Critically high 43.0-75.0 [facility] Comment on above: Performed By: #### T SH, BNP, HSTROPN, CMP #### [facility] [address] [address] [address] Jersey Butcher Platelet mean volume (Bld) [Entitic vol] 10.1 fL Normal 9.5-13.5 [facility] Comment on above: Performed By: #### T SH, BNP, HSTROPN, CMP #### [facility] [address] [address] [address] Jersey Butcher PLT 227 103/ul Normal 150-450 [facility] Comment on above: Performed By: #### T SH, BNP, HSTROPN, CMP #### [facility] [address] [place] [address] Dr. Jersey Butcher RBC 4.49 106/ul Critically low 4.70-6.10 [facility] Comment on above: Performed By: #### T SH, BNP, HSTROPN, CMP #### [facility] [address] [address] [address] Jersey Butcher WBC 8.3 103/ul Normal 4.0-11.0 [facility] Comment on above: Performed By: #### T SH, BNP, HSTROPN, CMP #### [facility] [address] [place] [address] Dr. Jersey Butcher Covid-19 PCR (CVDTB)on 01-17 SARS-CoV-2 (COVID-19) RNA PILI+probe Ql (Unsp spec) Detected Critically abnormal NOT DETECTED [facility] Comment on above: Result Comment: This test is not yet approved or cleared by the [place] FDA. When there are no FDA-approved or cleared tests available, and other criteria are met, FDA can make tests available under an emergency access mechanism called an Emergency Use Authorization (EUA). The EUA for this test is supported by the Palliative Nurse of Health and Human Service's declaration that [...] used). Performed By: #### C VDTB #### [facility] [address] [place] [address] Dr. Jersey Butcher INFLUENZA A AND B AGon 02-04 INFLUENZA A AG Negative Normal NEGATIVE SEE COMMENT [facility] Comment on above: Performed By: #### C PHILMAN #### [facility] [address] [place] [address] Dr. Jersey Butcher INFLUENZA B AG Negative Normal NEGATIVE SEE COMMENT [facility] Comment on above: Performed By: #### C MADDIE #### [facility] [address] [place] [address] Dr. Jersey Butcher INTERNAL CONTROLS Within Normal Limits Normal Wi thin Normal Limits [facility] Comment on above: Performed By: #### C MADDIE #### [facility] [address] [place] [address] Dr. Jersey Butcher PROF CHEM 8 (BAS METB)on Anion gap [Moles/Vol] 5.9 mmol/L Normal [facility] Comment on above: Performed By: #### T SH, BNP, HSTROPN, CMP #### [facility] [address] [place] [address] Dr. Jersey Butcher Calcium [Mass/Vol] 8.5 mg/dL Normal 8.5-10.1 [facility] Comment on above: Performed By: #### T SH, BNP, HSTROPN, CMP #### [facility] [address] [place] [address] Dr. Jersey Butcher Chloride [Moles/Vol] 96 mmol/L Critically low 98-107 [facility] Comment on above: Performed By: #### T SH, BNP, HSTROPN, CMP #### [facility] [address] [place] [address] Dr. Jersey Butcher CO2 [Moles/Vol] 33.4 mmol/L Critically high 21.0-32.0 [facility] Comment on above: Performed By: #### T SH, BNP, HSTROPN, CMP #### [facility] [address] [place] [address] Dr. Jersey Butcher Creatinine [Mass/Vol] 1.17 mg/dL Normal 0.70-1.30 [facility] Comment on above: Performed By: #### T SH, BNP, HSTROPN, CMP #### [facility] [address] [address] [address] Jersey Butcher EGFR-AF CHILEAN >60 Normal >=60 [facility] Comment on above: Performed By: #### T SH, BNP, HSTROPN, CMP #### [facility] [address] [place] [address] Dr. Jersey Butcher EGFR-NON AF CHILEAN >60 Normal >=60 [facility] Comment on above: Performed By: #### T SH, BNP, HSTROPN, CMP #### [facility] [address] [place] [address] Dr. Jersey Butcher Glucose [Mass/Vol] 141 mg/dL Critically high 74-106 [facility] Comment on above: Performed By: #### T SH, BNP, HSTROPN, CMP #### [facility] [address] [place] [address] Dr. Jersey Butcher Potassium [Moles/Vol] 3.3 mmol/L Critically low 3.5-5.1 [facility] Comment on above: Performed By: #### T SH, BNP, HSTROPN, CMP #### [facility] [address] [place] [address] Dr. Jersey Butcher Sodium [Moles/Vol] 132 mmol/L Critically low 136-145 [facility] Comment on above: Performed By: #### T SH, BNP, HSTROPN, CMP #### [facility] [address] [place] [address] Dr. Jersey Butcher Urea nitrogen [Mass/Vol] 15.0 mg/dL Normal 7.0-18.0 [facility] Comment on above: Performed By: #### T SH, BNP, HSTROPN, CMP #### [facility] [address] [place], [place] [address] Dr. Jersey Butcher Urea nitrogen/Creatinine [Mass ratio] 12.8 mg/mg Normal [facility] Comment on above: Performed By: #### T SH, BNP, HSTROPN, CMP #### [facility] [address] [place], [place] [address] Dr. Jersey Butcher XR CHEST 1 Von [...] Nery MCKEON Date: 2022-02-04 01:58 Normal [facility] XR CSPINE 2_3 VIEWSon 2021 XR [...] ANTONIO HALL Date: 2022-01-26 15:50 Normal [facility] Office Visit (Cardiology)on 01-12-2022 Follow-up visit Diagnoses/Problems Assessed Coronary artery disease without angina pectoris (414.00) (I25.10) Normal echocardiogram (V72.85) Hypertension (401.9) (I10) Hyperlipidemia (272.4) (E78.5) Sleep apnea (780.57) (G47.30) Morbid obesity with BMI of 50.0-59.9, adult (278.01,V85.43) (E66.01,Z68.43) Orders Morbid obesity with BMI of 50.0-59.9, adult Healthy Weight Tips; Status:Complete; Done: [id number] SocHx: Former smoker Tobacco Use Screening; Status:Complete; Done: [id number] Patient Instructions Please bring all medicines, vitamins, [...] meniscal repair with MACE. Patient presents to [facility] to obtain cardiac risk stratification prior to a weight loss surgery (no details of procedure needed) Surgeon: unknown Planned date: none to date Prior cardiovascular history: 1. Coronary Artery Disease: 2014 Cardiac cath: LAD normal Ramus normal CX CONSOLIDATOR at AV groove RCA patent stent p/m [...] Major clinical markers: -Acute coronary syndrome or ME within 30 days: no -Decompensated heart failure: no -Significant arrhythmia: no -Severe valvular heart disease: no 2. Intermediate clinical markers -History of ischemic heart disease (prior ME, current chest pain secondary to ischemia, use [...] Social Hist (more content not included)... Normal [employer] Tobacco Screening.on 022 Adult depression screening assessment No [facility] [employer] 600 DO Work Phone: Tobacco use status CPHS b) No [facility] 600 DO Work Phone: CBC AUTO DIFFon 01-11-2022 BASO # 0.0 103/ul Normal 0.0-0.1 [facility] Comment on above: Performed By: #### T SH, BNP, HSTROPN, CMP #### [facility] [address] [place] [address] Dr. Jersey Butcher Basophils/100 WBC (Bld) 0.4 % Normal 0.2-2.0 [facility] Comment on above: Performed By: #### T SH, BNP, HSTROPN, CMP #### [facility] [address] [place] [address] Dr. Jersey Butcher EO # 0.1 103/ul Normal 0.0-0.7 [facility] Comment on above: Performed By: #### T SH, BNP, HSTROPN, CMP #### [facility] [address] [place] [address] Dr. Jersey Butcher Eosinophils/100 WBC (Bld) 1.6 % Normal 0.9-7.0 [facility] Comment on above: Performed By: #### T SH, BNP, HSTROPN, CMP #### [facility] [address] [place] [address] Dr. Jersey Butcher Erythrocyte distribution width (RBC) [Ratio] 12.3 % Normal 11.0-15.0 [facility] Comment on above: Performed By: #### T SH, BNP, HSTROPN, CMP #### [facility] [address] [place] [address] Dr. Jersey Butcher Hematocrit (Bld) [Volume fraction] 46.4 % Normal 42.0-54.0 [facility] Comment on above: Performed By: #### T SH, BNP, HSTROPN, CMP #### [facility] [address] [place] [address] Dr. Jersey Butcher Hemoglobin (Bld) [Mass/Vol] 15.8 g/dL Normal 14.0-18.0 [facility] Comment on above: Performed By: #### T SH, BNP, HSTROPN, CMP #### [facility] [address] [place] [address] Dr. Jersey Butcher IG # 0.02 10e3/ul Normal 0.00-0.03 [facility] Comment on above: Performed By: #### T SH, BNP, HSTROPN, CMP #### [facility] [address] [place] [address] Dr. Jersey Butcher IG % 0.3 % Normal 0.0-0.5 [facility] Comment on above: Performed By: #### T SH, BNP, HSTROPN, CMP #### [facility] [address] [place] [address] Dr. Jersey Butcher LYMPH # 1.5 103/ul Normal 1.2-3.8 [facility] Comment on above: Performed By: #### T SH, BNP, HSTROPN, CMP #### [facility] [address] [place] [address] Dr. Jersey Butcher Lymphocytes/100 WBC (Bld) 21.7 % Normal 20.5-60.0 [facility] Comment on above: Performed By: #### T SH, BNP, HSTROPN, CMP #### [facility] [address] [place] [address] Dr. Jersey Butcher MANUAL DIFF REQ NO Normal [facility] Comment on above: Performed By: #### T SH, BNP, HSTROPN, CMP #### [facility] [address] [place] [address] Dr. Jersey Butcher MCH (RBC) [Entitic mass] 31.5 pg Normal 25.9-34.0 [facility] Comment on above: Performed By: #### T SH, BNP, HSTROPN, CMP #### [facility] [address] [place] [address] Dr. Jersey Butcher MCHC (RBC) [Mass/Vol] 34.1 g/dL Normal 29.9-35.2 [facility] Comment on above: Performed By: #### T SH, BNP, HSTROPN, CMP #### [facility] [address] [place] [address] Dr. Jersey Butcher MCV (RBC) [Entitic vol] 92.6 fL Normal 80.0-94.0 [facility] Comment on above: Performed By: #### T SH, BNP, HSTROPN, CMP #### [facility] [address] [place] [address] Dr. Jersey Butcher MONO # 0.7 103/ul Normal 0.3-0.8 [facility] Comment on above: Performed By: #### T SH, BNP, HSTROPN, CMP #### [facility] [address] [place] [address] Dr. Jersey Butcher Monocytes/100 WBC (Bld) 9.7 % Normal 1.7-12.0 [facility] Comment on above: Performed By: #### T SH, BNP, HSTROPN, CMP #### [facility] [address] [place] [address] Dr. Jersey Butcher NEUT # 4.6 103/ul Normal 1.4-6.5 [facility] Comment on above: Performed By: #### T SH, BNP, HSTROPN, CMP #### [facility] [address] [place] [address] Dr. Jersey Butcher Neutrophils/100 WBC (Bld) 66.3 % Normal 43.0-75.0 [facility] Comment on above: Performed By: #### T SH, BNP, HSTROPN, CMP #### [facility] [address] [place] [address] Dr. Jersey Butcher Platelet mean volume (Bld) [Entitic vol] 9.6 fL Normal 9.5-13.5 [facility] Comment on above: Performed By: #### T SH, BNP, HSTROPN, CMP #### [facility] [address] [place] [address] Dr. Jersey Butcher PLT 270 103/ul Normal 150-450 [facility] Comment on above: Performed By: #### T SH, BNP, HSTROPN, CMP #### [facility] [address] [place] [address] Dr. Jersey Butcher RBC 5.01 106/ul Normal 4.70-6.10 [facility] Comment on above: Performed By: #### T SH, BNP, HSTROPN, CMP #### [facility] [address] [address] [address] Jersey Butcher WBC 6.9 103/ul Normal 4.0-11.0 [facility] Comment on above: Performed By: #### T SH, BNP, HSTROPN, CMP #### [facility] [address] [address] [address] Jersey Butcher GLYCOHEMOGLOBIN A1Con 2021 ADA RECOMMENDATION SEE BELOW Normal [facility] Comment on above: Result Comment: ADA RECOMMENDED LIMIT 4.0 - 6.0 ADA THERAPEUTIC TARGET < 7.0 ACTION SUGGESTED > 7.0 Performed By: #### T SH, BNP, HSTROPN, CMP #### [facility] [address] [address] [address] Jersey Butcher Glucose [Mass/Vol] 117 mg/dL Normal [facility] Comment on above: Performed By: #### T SH, BNP, HSTROPN, CMP #### [facility] [address] [address] [address] Jersey Butcher HbA1c (Bld) [Mass fraction] 5.7 % Normal 4.5-6.2 [facility] Comment on above: Performed By: #### T SH, BNP, HSTROPN, CMP #### [facility] [address] [address] [address] Jersey Butcher LIPID PROFILEon 01-11-2022 CHOL-HDL RATIO NORM SEE BELOW Normal [facility] Comment on above: Result Comment: 3.3 - 4.4 LOW RISK 4.4 - 7.1 AVERAGE RISK 7.1 - 11.0 MODERATE RISK >11.0 HIGH RISK Performed By: #### C BCROSIE #### [facility] [address] [place] [address] Dr. Jersey Butcher Cholesterol [Mass/Vol] 133 mg/dL Normal <=200 [facility] Comment on above: Performed By: #### C MADDIE #### [facility] [address] [address] [address] Jersey Butcher Cholesterol in HDL [Mass/Vol] 54 mg/dL Normal 40-60 [facility] Comment on above: Performed By: #### C MADDIE #### [facility] [id number] Jersey Butcher Cholesterol in LDL [Mass/Vol] 52.0 mg/dL Normal [facility] Comment on above: Performed By: #### C MADDIE #### [facility] [address] [address] [address] Jersey Butcher Cholesterol.total/C holesterol in HDL [Mass ratio] 2.5 {ratio} Normal [facility] Comment on above: Performed By: #### C MADDIE #### [facility] [address] [place] [address] Dr. Jersey Butcher HDL NORMAL > or = 60 mg/dl - LO W CARDIOVASCULAR RISK <40 mg/dl - HIGH CARDIOVASCULAR RISK Normal [facility] Comment on above: Performed By: #### C MADDIE #### [facility] [address] [address] [address] Jersey Butcher LDL CALC NORMAL SEE BELOW Normal [facility] Comment on above: Result Comment: <100 mg/dl OPTIMAL 100 - 129 mg/dl NEAR OR ABOVE OPTIMAL 130 - 159 mg/dl BORDERLINE HIGH 160 - 189 mg/dl HIGH >190 mg/dl VERY HIGH Performed By: #### C MADDIE #### [facility] [address] [address] [address] Jersey Butcher Triglyceride [Mass/Vol] 135 mg/dL Normal <=150 [facility] Comment on above: Performed By: #### C MADDIE #### [facility] [address] [address] [address] Jersey Butcher VLDL CALC 27.0 mg/dL Normal [facility] Comment on above: Performed By: #### C MADDIE #### [facility] [address] [address] [address] Jersey Btucher PROF 14(COMP METB)on 022 Albumin [Mass/Vol] 3.5 g/dL Normal 3.4-5.0 [facility] Comment on above: Performed By: #### C MADDIE #### [facility] [address] [place] [address] Dr. Jersey Butcher Albumin/Globulin [Mass ratio] 1.0 {ratio} Normal [facility] Comment on above: Performed By: #### C MADDIE #### [facility] [address] [address] [address] Jersey Butcher ALP [Catalytic activity/Vol] 114 U/L Normal 46-116 [facility] Comment on above: Performed By: #### C MADDIE #### [facility] [address] [place] [address] Dr. Jersey Butcher ALT [Catalytic activity/Vol] 64 U/L Critically high 16-63 [facility] Comment on above: Performed By: #### C MADDIE #### [facility] [address] [place] [address] Dr. Jersey Butcher Anion gap [Moles/Vol] 9.1 mmol/L Normal [facility] Comment on above: Performed By: #### C MADDIE #### [facility] [address] [place] [address] Dr. Jersey Butcher AST [Catalytic activity/Vol] 81 U/L Critically high 15-37 [facility] Comment on above: Performed By: #### C MADDIE #### [facility] [address] [address] [address] Jersey Butcher Bilirubin [Mass/Vol] 0.9 mg/dL Normal 0.2-1.0 [facility] Comment on above: Performed By: #### C MADDIE #### [facility] [address] [address] [address] Jersey Butcher Calcium [Mass/Vol] 9.0 mg/dL Normal 8.5-10.1 [facility] Comment on above: Performed By: #### C MADDIE #### [facility] [address] [place] [address] Dr. Jersey Butcher Chloride [Moles/Vol] 99 mmol/L Normal 98-107 [facility] Comment on above: Performed By: #### C BCMAN #### [facility] [address] [address] [address] Jersey Butcher CO2 [Moles/Vol] 34.9 mmol/L Critically high 21.0-32.0 [facility] Comment on above: Performed By: #### C BCMAN #### [facility] [address] [address] [address] Jersey Butcher Creatinine [Mass/Vol] 1.04 mg/dL Normal 0.70-1.30 [facility] Comment on above: Performed By: #### C BCMAN #### [facility] [address] [place] [address] Dr. Jersey Butcher EGFR-AF CHILEAN >60 Normal >=60 [facility] Comment on above: Performed By: #### C BCMAN #### [facility] [address] [place] [address] Dr. Jersey Butcher EGFR-NON AF CHILEAN >60 Normal >=60 [facility] Comment on above: Performed By: #### C BCMAN #### [facility] [address] [address] [address] Jersey Butcher Globulin (S) [Mass/Vol] 3.5 g/dL Normal [facility] Comment on above: Performed By: #### C BCMAN #### [facility] [address] [place] [address] Dr. Jersey Butcher Glucose [Mass/Vol] 101 mg/dL Normal 74-106 [facility] Comment on above: Performed By: #### C BCMAN #### [facility] [address] [place] [address] Dr. Jersey Butcher Potassium [Moles/Vol] 4.0 mmol/L Normal 3.5-5.1 [facility] Comment on above: Performed By: #### C BCMAN #### [facility] [address] [place] [address] Dr. Jersey Butcher Protein [Mass/Vol] 7.0 g/dL Normal 6.4-8.2 [facility] Comment on above: Performed By: #### C BCMAN #### [facility] [address] [place], [place] [address] Dr. Jersey Butcher Sodium [Moles/Vol] 139 mmol/L Normal 136-145 [facility] Comment on above: Performed By: #### C BCMAN #### [facility] [address] [place], [place] [address] Dr. Jersey Butcher Urea nitrogen [Mass/Vol] 17.0 mg/dL Normal 7.0-18.0 [facility] Comment on above: Performed By: #### C BCMAN #### [facility] [address] [address] [address] Jersey Butcher Urea nitrogen/Creatinine [Mass ratio] 16.3 mg/mg Normal [facility] Comment on above: Performed By: #### C BCMAN #### [facility] [address] [address] [address] LSPINE WO CONon [...] DONG BUNDY Date: 2021-12-10 22:56 Normal [facility] CBC AUTO DIFFon 11-07-2021 BASO # 0.0 103/ul Normal 0.0-0.1 [facility] Comment on above: Performed By: #### T SH, BNP, HSTROPN, CMP #### [facility] [address] [place] [address] Dr. Jersey Butcher Basophils/100 WBC (Bld) 0.4 % Normal 0.2-2.0 [facility] Comment on above: Performed By: #### T SH, BNP, HSTROPN, CMP #### [facility] [address] [place] [address] Dr. Jersey Butcher EO # 0.1 103/ul Normal 0.0-0.7 [facility] Comment on above: Performed By: #### T SH, BNP, HSTROPN, CMP #### [facility] [address] [place] [address] Dr. Jersey Butcher Eosinophils/100 WBC (Bld) 1.1 % Normal 0.9-7.0 [facility] Comment on above: Performed By: #### T SH, BNP, HSTROPN, CMP #### [facility] [address] [place] [address] Dr. Jersey Butcher Erythrocyte distribution width (RBC) [Ratio] 12.3 % Normal 11.0-15.0 [facility] Comment on above: Performed By: #### T SH, BNP, HSTROPN, CMP #### [facility] [address] [place] [address] Dr. Jersey Butcher Hematocrit (Bld) [Volume fraction] 44.9 % Normal 42.0-54.0 [facility] Comment on above: Performed By: #### T SH, BNP, HSTROPN, CMP #### [facility] [address] [place] [address] Dr. Jersey Butcher Hemoglobin (Bld) [Mass/Vol] 15.2 g/dL Normal 14.0-18.0 [facility] Comment on above: Performed By: #### T SH, BNP, HSTROPN, CMP #### [facility] [address] [place] [address] Dr. Jersey Butcher IG # 0.02 10e3/ul Normal 0.00-0.03 [facility] Comment on above: Performed By: #### T SH, BNP, HSTROPN, CMP #### [facility] [address] [place] [address] Dr. Jersey Butcher IG % 0.2 % Normal 0.0-0.5 [facility] Comment on above: Performed By: #### T SH, BNP, HSTROPN, CMP #### [facility] [address] [place] [address] Dr. Jersey Butcher LYMPH # 1.8 103/ul Normal 1.2-3.8 [facility] Comment on above: Performed By: #### T SH, BNP, HSTROPN, CMP #### [facility] [address] [place] [address] Dr. Jersey Butcher Lymphocytes/100 WBC (Bld) 22.5 % Normal 20.5-60.0 [facility] Comment on above: Performed By: #### T SH, BNP, HSTROPN, CMP #### [facility] [address] [place] [address] Dr. Jersey Butcher MANUAL DIFF REQ NO Normal [facility] Comment on above: Performed By: #### T SH, BNP, HSTROPN, CMP #### [facility] [address] [place] [address] Dr. Jersey Butcher MCH (RBC) [Entitic mass] 31.6 pg Normal 25.9-34.0 [facility] Comment on above: Performed By: #### T SH, BNP, HSTROPN, CMP #### [facility] [address] [place] [address] Dr. Jersey Butcher MCHC (RBC) [Mass/Vol] 33.9 g/dL Normal 29.9-35.2 [facility] Comment on above: Performed By: #### T SH, BNP, HSTROPN, CMP #### [facility] [address] [place] [address] Dr. Jersey Butcher MCV (RBC) [Entitic vol] 93.3 fL Normal 80.0-94.0 [facility] Comment on above: Performed By: #### T SH, BNP, HSTROPN, CMP #### [facility] [address] [address] [address] Jersey Butcher MONO # 0.9 103/ul Critically high 0.3-0.8 [facility] Comment on above: Performed By: #### T SH, BNP, HSTROPN, CMP #### [facility] [address] [address] [address] Jersey Butcher Monocytes/100 WBC (Bld) 11.1 % Normal 1.7-12.0 [facility] Comment on above: Performed By: #### T SH, BNP, HSTROPN, CMP #### [facility] [address] [place] [address] Dr. Jersey Butcher NEUT # 5.2 103/ul Normal 1.4-6.5 [facility] Comment on above: Performed By: #### T SH, BNP, HSTROPN, CMP #### [facility] [address] [place] [address] Dr. Jersey Butcher Neutrophils/100 WBC (Bld) 64.7 % Normal 43.0-75.0 [facility] Comment on above: Performed By: #### T SH, BNP, HSTROPN, CMP #### [facility] [address] [place] [address] Dr. Jersey Butcher Platelet mean volume (Bld) [Entitic vol] 10.1 fL Normal 9.5-13.5 [facility] Comment on above: Performed By: #### T SH, BNP, HSTROPN, CMP #### [facility] [address] [place] [address] Dr. Jersey Butcher PLT 265 103/ul Normal 150-450 [facility] Comment on above: Performed By: #### T SH, BNP, HSTROPN, CMP #### [facility] [address] [place] [address] Dr. Jersey Butcher RBC 4.81 106/ul Normal 4.70-6.10 [facility] Comment on above: Performed By: #### T SH, BNP, HSTROPN, CMP #### [facility] [address] [place], [place] [address] Dr. Jersey Butcher WBC 8.1 103/ul Normal 4.0-11.0 [facility] Comment on above: Performed By: #### T SH, BNP, HSTROPN, CMP #### [facility] [address] [place], [place] [address] CHEST WO CONon [...] could represent scarring. Electronically authenticated by: EUSEBIA Garner: 2021-11-06 23:56 Normal [facility] [facility] 14(COMP METB)on 022 Albumin [Mass/Vol] 3.5 g/dL Normal 3.4-5.0 [facility] Comment on above: Performed By: #### C VDTBH #### [facility] [address] [place] [address] Dr. Jersey Butcher Albumin/Globulin [Mass ratio] 1.0 {ratio} Normal [facility] Comment on above: Performed By: #### C VDTBH #### [facility] [address] [address] [address] Jersey Butcher ALP [Catalytic activity/Vol] 117 U/L Critically high 46-116 [facility] Comment on above: Performed By: #### C VDTBH #### [facility] [address] [place] [address] Dr. Jersey Butcher ALT [Catalytic activity/Vol] 39 U/L Normal 16-63 [facility] Comment on above: Performed By: #### C VDTBH #### [facility] [address] [address] [address] Jersey Butcher Anion gap [Moles/Vol] 9.3 mmol/L Normal [facility] Comment on above: Performed By: #### C VDTBH #### [facility] [address] [place] [address] Dr. Jersey Butcher AST [Catalytic activity/Vol] 20 U/L Normal 15-37 [facility] Comment on above: Performed By: #### C VDTBH #### [facility] [address] [address] [address] Jersey Butcher Bilirubin [Mass/Vol] 0.4 mg/dL Normal 0.2-1.0 [facility] Comment on above: Performed By: #### C VDTBH #### [facility] [address] [address] [address] Jersey Butcher Calcium [Mass/Vol] 9.1 mg/dL Normal 8.5-10.1 [facility] Comment on above: Performed By: #### C VDTBH #### [facility] [address] [address] [address] Jersey Butcher Chloride [Moles/Vol] 99 mmol/L Normal 98-107 [facility] Comment on above: Performed By: #### C VDTBH #### [facility] [address] [place] [address] Dr. Jersey Butcher CO2 [Moles/Vol] 33.2 mmol/L Critically high 21.0-32.0 [facility] Comment on above: Performed By: #### C VDTBH #### [facility] [address] [address] [address] Jersey Butcher Creatinine [Mass/Vol] 1.21 mg/dL Normal 0.70-1.30 [facility] Comment on above: Performed By: #### C VDTBH #### [facility] [address] [place] [address] Dr. Jersey Butcher EGFR-AF CHILEAN >60 Normal >=60 [facility] Comment on above: Performed By: #### C VDTBH #### [facility] [address] [place] [address] Dr. Jersey Butcher EGFR-NON AF CHILEAN >60 Normal >=60 [facility] Comment on above: Performed By: #### C VDTBH #### [facility] [address] [place] [address] Dr. Jersey Butcher Globulin (S) [Mass/Vol] 3.5 g/dL Normal [facility] Comment on above: Performed By: #### C VDTBH #### [facility] [address] [place] [address] Dr. Jersey Butcher Glucose [Mass/Vol] 102 mg/dL Normal 74-106 [facility] Comment on above: Performed By: #### C VDTBH #### [facility] [address] [place] [address] Dr. Jersey Butcher Potassium [Moles/Vol] 3.5 mmol/L Normal 3.5-5.1 [facility] Comment on above: Performed By: #### C VDTBH #### [facility] [address] [place], [place] [address] Dr. Jersey Butcher Protein [Mass/Vol] 7.0 g/dL Normal 6.4-8.2 [facility] Comment on above: Performed By: #### C VDTBH #### [facility] [address] [address] [address] Jersey Butcher Sodium [Moles/Vol] 138 mmol/L Normal 136-145 [facility] Comment on above: Performed By: #### C VDTBH #### [facility] [address] [address] [address] Jersey Butcher Urea nitrogen [Mass/Vol] 19.0 mg/dL Critically high 7.0-18.0 [facility] Comment on above: Performed By: #### C VDTBH #### [facility] [address] [address] [address] Jersey Butcher Urea nitrogen/Creatinine [Mass ratio] 15.7 mg/mg Normal [facility] Comment on above: Performed By: #### C VDTBH #### [facility] [address] [address] [address] Jersey Butcher XR CHEST 1 Von [...] MARCO ANTONIO FRIEDMAN Date: 2021-11-06 22:36 Normal [facility] IO EKG Electrocardiogram- 12 Leadon 04-11-2021 IO EKG Electrocardiogram- [address] Lead [address] Document [facility] io [employer] 600 DO Work Phone: Tobacco Screening.on 021 Fall risk assessment a) No falls within the last year [facility] [employer] 600 DO Work Phone: Tobacco use status [facility] b) No [facility] 600 DO Work Phone: Vital Signs Date Time Vital Sign Value Performing Clinician Facility 02-26-2025 14:15-0400 Body height 172.72 cm [facility] 02-26-2025 14:15-0400 Body mass index (BMI) [Ratio] 55.5 kg/m2 [facility] 02-26-2025 14:15-0400 Body temperature 97.6 [degF] [facility] 02-26-2025 14:15-0400 Body weight 165.56 kg [facility] 02-26-2025 14:15-0400 Heart rate 64 /min [facility] 02-26-2025 14:15-0400 Respiratory rate 22 /min [facility] 02-26-2025 14:15-0400 SaO2% (BldA) [Mass fraction] 94 % [facility] 02-02-2025 14:44-0400 Body mass index (BMI) [Ratio] 56.32 kg/m2 Eusebia Terrell PROVIDER NETWORK MANAGER Work Phone: [facility] 02-02-2025 14:44-0400 Body temperature 97.7 [degF] Eusebia Terrell PROVIDER NETWORK MANAGER Work Phone: [facility] 02-02-2025 14:44-0400 Body weight 168.01 kg Eusebia Terrell PROVIDER NETWORK MANAGER Work Phone: [facility] 02-02-2025 14:44-0400 Diastolic blood pressure 60 mm[Hg] Eusebia Terrell PROVIDER NETWORK MANAGER Work Phone: [facility] 02-02-2025 14:44-0400 Heart rate 61 /min Eusebia Terrell PROVIDER NETWORK MANAGER Work Phone: [facility] 02-02-2025 14:44-0400 Respiratory rate 26 /min Eusebia Terrell PROVIDER NETWORK MANAGER Work Phone: [facility] 02-02-2025 14:44-0400 SaO2% (BldA) [Mass fraction] 91 % Eusebia Aichholz PROVIDER NETWORK MANAGER Work Phone: [facility] 02-02-2025 14:44-0400 Systolic blood pressure 100 mm[Hg] Eusebia Thanhholz PROVIDER NETWORK MANAGER Work Phone: [facility] 12-22-2024 14:33-0400 Body mass index (BMI) [Ratio] 55.01 kg/m2 Eusebia Aichholz PROVIDER NETWORK MANAGER Work Phone: [facility] 12-22-2024 14:33-0400 Body temperature 97.59 [degF] Eusebia Thanhholz PROVIDER NETWORK MANAGER Work Phone: [facility] 12-22-2024 14:33-0400 Body weight 164.11 kg Eusebia Thanhholz PROVIDER NETWORK MANAGER Work Phone: [facility] 12-22-2024 14:33-0400 Diastolic blood pressure 50 mm[Hg] Eusebia Aichholz PROVIDER NETWORK MANAGER Work Phone: [facility] 12-22-2024 14:33-0400 Heart rate 90 /min Esuebia Socorrohholz PROVIDER NETWORK MANAGER Work Phone: [facility] 12-22-2024 14:33-0400 Respiratory rate 20 /min Eusebia Aichholz PROVIDER NETWORK MANAGER Work Phone: [facility] 12-22-2024 14:33-0400 SaO2% (BldA) [Mass fraction] 93 % Eusebia Socorrohholz PROVIDER NETWORK MANAGER Work Phone: [facility] 12-22-2024 14:33-0400 Systolic blood pressure 80 mm[Hg] Eusebia Socorrofernandoholz PROVIDER NETWORK MANAGER Work Phone: [facility] 10-15-2024 09:18-0400 Body height 172.7 cm Madison Blanco MD Work Phone: [facility] 10-15-2024 09:18-0400 Body mass index (BMI) [Ratio] 54.89 kg/m2 Madison Blanco MD Work Phone: [facility] 10-15-2024 09:18-0400 Body weight 163.75 kg Madison Blanco MD Work Phone: [facility] 10-15-2024 09:18-0400 Diastolic blood pressure 74 mm[Hg] Madison Blanco MD Work Phone: [facility] 10-15-2024 09:18-0400 Heart rate 64 /min Madison Blanco MD Work Phone: [facility] 10-15-2024 09:18-0400 Systolic blood pressure 112 mm[Hg] Madison Blanco MD Work Phone: [facility] 09-18-2024 11:30-0400 Diastolic blood pressure 60 mm[Hg] Eusebia Terrell PROVIDER NETWORK MANAGER Work Phone: [facility] 09-18-2024 11:30-0400 Systolic blood pressure 88 mm[Hg] Eusebiakelley Terrell PROVIDER NETWORK MANAGER Work Phone: [facility] 09-18-2024 11:06-0400 Body mass index (BMI) [Ratio] 54.49 kg/m2 Eusebia Xander PROVIDER NETWORK MANAGER Work Phone: [facility] 09-18-2024 11:06-0400 Body temperature 98.4 [degF] Eusebia Terrell PROVIDER NETWORK MANAGER Work Phone: [facility] 09-18-2024 11:06-0400 Body weight 162.57 kg Eusebia Xander PROVIDER NETWORK MANAGER Work Phone: [facility] 09-18-2024 11:06-0400 Heart rate 67 /min Eusebia Alyssaz PROVIDER NETWORK MANAGER Work Phone: [facility] 09-18-2024 11:06-0400 Respiratory rate 22 /min Eusebia Xander PROVIDER NETWORK MANAGER Work Phone: [facility] 09-18-2024 11:06-0400 SaO2% (BldA) [Mass fraction] 92 % Eusebia Aichholz PROVIDER NETWORK MANAGER Work Phone: [facility] 06-19-2024 09:57-0500 Body height 172.7 cm Eusebia Shahz PROVIDER NETWORK MANAGER Work Phone: [facility] 06-19-2024 09:57-0500 Body mass index (BMI) [Ratio] 55.86 kg/m2 Eusebiakelley Quintanillafernandoholz PROVIDER NETWORK MANAGER Work Phone: [facility] 06-19-2024 09:57-0500 Body temperature 97.81 [degF] Eusebia Thanhholz PROVIDER NETWORK MANAGER Work Phone: [facility] 06-19-2024 09:57-0500 Body weight 166.65 kg Eusebiakelley Lawholz PROVIDER NETWORK MANAGER Work Phone: [facility] 06-19-2024 09:57-0500 Diastolic blood pressure 68 mm[Hg] Eusebia Quintanillafernandoholz PROVIDER NETWORK MANAGER Work Phone: [facility] 06-19-2024 09:57-0500 Heart rate 68 /min Eusebiakelley Lawholz PROVIDER NETWORK MANAGER Work Phone: [facility] 06-19-2024 09:57-0500 Respiratory rate 24 /min Eusebia Thanhholz PROVIDER NETWORK MANAGER Work Phone: [facility] 06-19-2024 09:57-0500 SaO2% (BldA) [Mass fraction] 93 % Eusebiakelley Quintanillaabhayz PROVIDER NETWORK MANAGER Work Phone: [facility] 06-19-2024 09:57-0500 Systolic blood pressure 88 mm[Hg] Eusebia Socorrofernandoholz PROVIDER NETWORK MANAGER Work Phone: [facility] 04-09-2024 16:05-0400 Body mass index (BMI) [Ratio] 55.71 kg/m2 Eusebia Socorrofernandoholz PROVIDER NETWORK MANAGER Work Phone: [facility] 04-09-2024 16:05-0400 Body temperature 98.1 [degF] Eusebia Aichholz PROVIDER NETWORK MANAGER Work Phone: [facility] 04-09-2024 16:05-0400 Body weight 166.2 kg Eusebia Socorrohholz PROVIDER NETWORK MANAGER Work Phone: [facility] 04-09-2024 16:05-0400 Diastolic blood pressure 82 mm[Hg] Eusebia Aichholz PROVIDER NETWORK MANAGER Work Phone: [facility] 04-09-2024 16:05-0400 Heart rate 95 /min Eusebia Aichholz PROVIDER NETWORK MANAGER Work Phone: [facility] 04-09-2024 16:05-0400 Respiratory rate 19 /min Eusebia Aichholz PROVIDER NETWORK MANAGER Work Phone: [facility] 04-09-2024 16:05-0400 SaO2% (BldA) [Mass fraction] 93 % Eusebia Aichholz PROVIDER NETWORK MANAGER Work Phone: [facility] 04-09-2024 16:05-0400 Systolic blood pressure 120 mm[Hg] Eusebia Aichholz PROVIDER NETWORK MANAGER Work Phone: [facility] 02-06-2024 09:06-0400 Body height 172.7 cm Eusebia Aichholz PROVIDER NETWORK MANAGER Work Phone: [facility] 02-06-2024 09:06-0400 Body mass index (BMI) [Ratio] 56.14 kg/m2 Eusebia Aichholz PROVIDER NETWORK MANAGER Work Phone: [facility] 02-06-2024 09:06-0400 Body temperature 98.1 [degF] Eusebia Socorrohholz PROVIDER NETWORK MANAGER Work Phone: [facility] 02-06-2024 09:06-0400 Body weight 167.47 kg Eusebia Aichholz PROVIDER NETWORK MANAGER Work Phone: [facility] 02-06-2024 09:06-0400 Diastolic blood pressure 76 mm[Hg] Eusebia Aichholz PROVIDER NETWORK MANAGER Work Phone: [facility] 02-06-2024 09:06-0400 Heart rate 95 /min Eusebia Aichholz PROVIDER NETWORK MANAGER Work Phone: [facility] 02-06-2024 09:06-0400 Respiratory rate 20 /min Eusebia Aichholz PROVIDER NETWORK MANAGER Work Phone: [facility] [employer] 02-06-2024 09:06-0400 SaO2% (BldA) [Mass fraction] 94 % Eusebia Terrell PROVIDER NETWORK MANAGER Work Phone: [facility] 02-06-2024 09:06-0400 Systolic blood pressure 102 mm[Hg] Eusebia Terrell PROVIDER NETWORK MANAGER Work Phone: [facility] 01-21-2024 14:28-0400 Body height 172.7 cm Sara Yevgeniy [employer] Work Phone: [email or web address] 01-21-2024 14:28-0400 Body mass index (BMI) [Ratio] 55.22 kg/m2 Sara Yevgeniy [employer] Work Phone: [email or web address] 01-21-2024 14:28-0400 Body weight 164.75 kg Sara Yevgeniy [employer] Work Phone: [employer] [facility] 01-21-2024 14:28-0400 Diastolic blood pressure 58 mm[Hg] Sara Yevgeniy [employer] Work Phone: [email or web address] 01-21-2024 14:28-0400 Heart rate 90 /min Sara Yevgeniy [employer] Work Phone: [email or web address] 01-21-2024 14:28-0400 SaO2% (BldA) [Mass fraction] 95 % Sara Yevgeniy [employer] Work Phone: [email or web address] 01-21-2024 14:28-0400 Systolic blood pressure 90 mm[Hg] Sara Yevgeniy [employer] Work Phone: [email or web address] 10-25-2023 14:27-0400 Body height 172.7 cm Lisa Cervantes DO Work Phone: [email or web address] 10-25-2023 14:27-0400 Body mass index (BMI) [Ratio] 55.62 kg/m2 Lisa Cervantes DO Work Phone: [employer] [facility] 10-25-2023 14:27-0400 Body weight 165.93 kg Lisa Cervantes DO [facility] Phone: [facility] 10-25-2023 14:27-0400 Diastolic blood pressure 49 mm[Hg] Lisa Cervantes DO Work Phone: [facility] 10-25-2023 14:27-0400 Heart rate 63 /min Lisa Cervantes DO Work Phone: [facility] 10-25-2023 14:27-0400 SaO2% (BldA) [Mass fraction] 94 % Lisa Cervantes DO Work Phone: [facility] [employer] Comment on above: Arrived on 3Lnc of O2 10-25-2023 14:27-0400 Systolic blood pressure 83 mm[Hg] Lisa Cervantes DO Work Phone: [facility] [employer] [facility] 10-08-2023 10:53-0400 Body height 172.7 cm Madison Blanco MD Work Phone: [facility] 10-08-2023 10:53-0400 Body mass index (BMI) [Ratio] 56.26 kg/m2 Madison Blanco MD Work Phone: [facility] 10-08-2023 10:53-0400 Body weight 167.83 kg Madison Blanco MD Work Phone: [facility] 10-08-2023 10:53-0400 Diastolic blood pressure 70 mm[Hg] Madison Blanco MD Work Phone: [facility] 10-08-2023 10:53-0400 Heart rate 64 /min Madison Blanco MD Work Phone: [facility] 10-08-2023 10:53-0400 Systolic blood pressure 110 mm[Hg] Madison Blanco MD Work Phone: [phone] [place] [address] 08-20-2023 10:47-0500 Body height 172.7 cm Samara Noel MD Work Phone: [facility] [employer] 08-20-2023 10:47-0500 Body mass index (BMI) [Ratio] 57.21 kg/m2 Samara Noel MD Work Phone: [facility] [employer] [facility] 08-20-2023 10:47-0500 Body weight 170.64 kg Samara Noel MD Work Phone: [facility] [employer] [facility] 08-20-2023 10:47-0500 Diastolic blood pressure 66 mm[Hg] Samara Noel MD Work Phone: [facility] [employer] [facility] 08-20-2023 10:47-0500 Heart rate 88 /min Samara Noel MD Work Phone: [facility] [employer] [facility] 08-20-2023 10:47-0500 SaO2% (BldA) [Mass fraction] 95 % Samara Noel MD Work Phone: [facility] [employer] [facility] 08-20-2023 10:47-0500 Systolic blood pressure 139 mm[Hg] Samara Noel MD Work Phone: [facility] [employer] [facility] 07-26-2023 13:20-0500 Body height 172.7 cm Faith Mandujano MD Work Phone: [facility] [employer] [facility] 07-26-2023 13:20-0500 Body mass index (BMI) [Ratio] 55.95 kg/m2 Faith Mandujano MD Work Phone: [facility] [employer] [facility] 07-26-2023 13:20-0500 Body weight 166.92 kg Faith Mandujano MD Work Phone: [facility] [employer] [facility] 07-26-2023 13:20-0500 Diastolic blood pressure 70 mm[Hg] Faith Mandujano MD Work Phone: [facility] [employer] [facility] 07-26-2023 13:20-0500 Heart rate 115 /min Faith Mandujano MD Work Phone: [place] 07-26-2023 13:20-0500 SaO2% (BldA) [Mass fraction] 94 % Faith Mandujano MD Work Phone: [place] 07-26-2023 13:20-0500 Systolic blood pressure 104 mm[Hg] Faith Mandujano MD Work Phone: [place] 07-19-2023 09:48-0500 Body height 172.7 cm Eusebia Socorrohholz PROVIDER NETWORK MANAGER Work Phone: [facility] 07-19-2023 09:48-0500 Body mass index (BMI) [Ratio] 56.2 kg/m2 Eusebia Aichholz PROVIDER NETWORK MANAGER Work Phone: [facility] 07-19-2023 09:48-0500 Body temperature 97.5 [degF] Eusebia Aichholz PROVIDER NETWORK MANAGER Work Phone: [facility] 07-19-2023 09:48-0500 Body weight 167.65 kg Eusebia Aichholz PROVIDER NETWORK MANAGER Work Phone: [facility] 07-19-2023 09:48-0500 Diastolic blood pressure 88 mm[Hg] Eusebia Aichholz PROVIDER NETWORK MANAGER Work Phone: [facility] 07-19-2023 09:48-0500 Heart rate 95 /min Eusebia Aichholz PROVIDER NETWORK MANAGER Work Phone: [facility] 07-19-2023 09:48-0500 Respiratory rate 24 /min Eusebia Aichholz PROVIDER NETWORK MANAGER Work Phone: [facility] 07-19-2023 09:48-0500 SaO2% (BldA) [Mass fraction] 95 % Eusebia Aichholz PROVIDER NETWORK MANAGER Work Phone: [facility] 07-19-2023 09:48-0500 Systolic blood pressure 130 mm[Hg] Eusebia Aichholz PROVIDER NETWORK MANAGER Work Phone: [facility] 04-13-2023 12:07-0400 Body height 172.7 cm Justyn Mondragon MD Work Phone: [facility] 04-13-2023 12:07-0400 Body mass index (BMI) [Ratio] 54.74 kg/m2 Justyn Mondragon MD Work Phone: [facility] 04-13-2023 12:07-0400 Body weight 163.29 kg Justyn Mondragon MD Work Phone: [facility] 04-13-2023 12:07-0400 Diastolic blood pressure 80 mm[Hg] Justyn Mondragon MD Work Phone: [facility] 04-13-2023 12:07-0400 Systolic blood pressure 134 mm[Hg] Justyn Mondragon MD Work Phone: [facility] 10-02-2022 11:00-0400 52 1 Eusebia Terrell Work Phone: [facility] 305 DO Work Phone: Comment on above: [email or web address] 07-19-2022 10:33-0500 Body height 173.99 cm Eusebia Terrell Work Phone: [facility] 305 DO Work Phone: 07-19-2022 10:33-0500 Body mass index (BMI) [Ratio] 50.68 kg/m2 Eusebia Terrell Work Phone: [facility] 305 DO Work Phone: 07-19-2022 10:33-0500 Body surface area Derived from formula 2.57 m2 Eusebia Terrell Work Phone: [facility] 305 DO Work Phone: 07-19-2022 10:33-0500 Body weight 153.41 kg Eusebia Terrell Work Phone: [facility] 305 DO Work Phone: 07-19-2022 10:33-0500 Diastolic blood pressure 82 mm[Hg] Eusebia Quintanillahholz Work Phone: [facility] 305 DO Work Phone: 07-19-2022 10:33-0500 Heart rate 64 /min Eusebia Rondon Aichholz Work Phone: [facility] 305 DO Work Phone: 07-19-2022 10:33-0500 Systolic blood pressure 132 mm[Hg] Eusebia Rondon Aichholz Work Phone: [facility] Work Phone: 01-12-2022 14:42-0400 Body height 172.72 cm Eusebia Rondon Aichholz [facility] Work Phone: 01-12-2022 14:42-0400 Body mass index (BMI) [Ratio] 51.7 kg/m2 Eusebia Rondon Aichholz Work Phone: [facility] 600 DO Work Phone: 01-12-2022 14:42-0400 Body surface area Derived from formula 2.56 m2 Eusebia Rondon Aichholz Work Phone: [facility] 600 DO Work Phone: 01-12-2022 14:42-0400 Body weight 154.22 kg Eusebia Rondon Aichholz Work Phone: [facility] 600 DO Work Phone: 01-12-2022 14:42-0400 Diastolic blood pressure 80 mm[Hg] Eusebia Rondon Aichholz Work Phone: [facility] Work Phone: 01-12-2022 14:42-0400 Heart rate 66 /min Eusebia Rondon Aichholz Work Phone: [facility] DO Work Phone: 01-12-2022 14:42-0400 Systolic blood pressure 136 mm[Hg] Eusebia Rondon Aichholz Work Phone: [facility] 600 DO Work Phone: 04-11-2021 12:45-0400 Body height 172.72 cm Eusebia Rondon Aichholz Work Phone: [facility] 600 DO Work Phone: 04-11-2021 12:45-0400 Body mass index (BMI) [Ratio] 53.52 kg/m2 Eusebia Rondon Aichholz Work [facility] DO Work Phone: 04-11-2021 12:45-0400 Body surface area Derived from formula 2.6 m2 Eusebia Rondon Aichholz Work Phone: [facility] Work Phone: 04-11-2021 12:45-0400 Body weight 159.67 kg Eusebia Rondon Aichholz Work Phone: [facility] DO Work Phone: 04-11-2021 12:45-0400 Diastolic blood pressure 78 mm[Hg] Eusebia Rondon Aichholz Work [facility]: [facility] DO Work Phone: 04-11-2021 12:45-0400 Heart rate 74 /min Eusebia Rondon Aichholz Work Phone: [facility] DO Work Phone: 04-11-2021 12:45-0400 Systolic blood pressure 124 mm[Hg] Eusebia Nela Terrell Work Phone: [facility] 600 DO Work Phone: Encounters Encounter Date Encounter Type Care Provider Facility Start: 02-26-2025 End: 02-26-2025 ambulatory NON STAFF [facility] Work Phone: Start: 02-26-2025 End: 02-26-2025 Patient encounter procedure Eusebia Terrell PROVIDER NETWORK MANAGER-C [facility] Work Phone: Start: 02-26-2025 Patient encounter procedure [facility] Start: 02-09-2025 End: 02-09-2025 Clinisync Result Encounter Eusebia Terrell PROVIDER NETWORK MANAGER Work Phone: [facility] External Department Unsolicited Start: 02-09-2025 End: 02-09-2025 Clinisync Result Encounter Eusebia Terrell PROVIDER NETWORK MANAGER Work Phone: [facility] External Department Unsolicited Start: 02-02-2025 End: 02-02-2025 Office outpatient visit 25 minutes Eusebia Terrell PROVIDER NETWORK MANAGER Work Phone: [facility] Comment on above: Bilateral lower leg cellulitis [...] (BMI) of 50.0 to 59.9 in adult ([facility]) Start: 02-02-2025 End: 02-02-2025 ambulatory EUSEBIA TERRELL Not Available Start: 01-24-2025 End: 01-25-2025 Emergency department patient visit EUSEBIA TERRELL [facility] Start: 01-02-2025 End: 01-02-2025 External Result Encounter Eusebia Terrell PROVIDER NETWORK MANAGER Work Phone: [facility] External Department Unsolicited Start: 01-02-2025 End: 01-02-2025 External Result Encounter Eusebia Terrell PROVIDER NETWORK MANAGER Work Phone: [facility] External Department Unsolicited Start: 01-02-2025 End: 01-05-2025 Orders Only Lisa Cervantes DO [facility] Comment on above: Chronic obstructive pulmonary disease, unspecified COPD type ([facility]) (Primary Dx) Start: 12-22-2024 End: 12-22-2024 ambulatory EUSEBIA TERRELL Not Available Start: 12-22-2024 End: 12-22-2024 Office outpatient visit 25 minutes Eusebia Terrell NP Work Phone: [facility] Comment on above: Primary hypertension (Primary Dx); CATERINA (obstructive sleep apnea); Chronic diastolic (congestive) heart failure (HCC); Coronary artery disease involving [place] of [place] coronary artery of [place] heart without angina pectoris ; Paroxysmal atrial fibrillation (HCC); Bilateral lower extremity edema; Class 3 severe obesity due to excess calories with serious comorbidity and body mass index (BMI) of 50.0 to 59.9 in adult ([facility]-HCC); Pre-diabetes; Thyroid nodule ; Pulmonary emphysema, unspecified emphysema type (HCC); Moderate persistent asthma without complication (HCC); Hyperlipidemia, unspecified ; Chronic diastolic heart failure (HCC); Atrial fibrillation, unspecified type (HCC) Start: 12-22-2024 End: 12-22-2024 Bamboo flowsheet Eusebia Terrell PROVIDER NETWORK MANAGER Work Phone: [facility] Start: 12-22-2024 End: 12-22-2024 Bamboo flowsheet Eusebia Terrell PROVIDER NETWORK MANAGER Work Phone: [facility] Start: 12-03-2024 End: 12-04-2024 Refill Eusebia Terrell PROVIDER NETWORK MANAGER Work Phone: [facility] Comment on above: Paroxysmal atrial fi brillation (HCC) Start: 10-15-2024 End: 10-15-[address] [facility] Ambulatory Start: 10-15-2024 End: 10-15-2024 Office outpatient visit 25 minutes Madison Blanco MD Work Phone: [facility] Comment on above: 2-vessel coronary ar joey disease (Primary Dx); Paroxysmal atrial fibrillation (Multi); Old ME (myocardial infarction); Poor compliance; Essential hypertension; Morbid obesity with BMI of 50.0-59.9, adult (Multi); Obstructive sleep apnea syndrome; Former smoker Start: 09-18-2024 End: 09-18-2024 Bamboo flowsheet Eusebia Terrell PROVIDER NETWORK MANAGER Work Phone: [facility] Start: 09-18-2024 End: 09-18-2024 Bamboo flowsheet Eusebia Terrell PROVIDER NETWORK MANAGER Work Phone: [facility] Start: 09-18-2024 End: 09-18-2024 Office outpatient visit 25 minutes Eusebia Terrell PROVIDER NETWORK MANAGER Work Phone: [facility] Comment on above: Primary hypertension (CMS/HCC) (Primary Dx); Pulmonary emphysema, unspecified emphysema type (CMS/HCC); Coronary artery disease involving [place] coronary artery of [place] heart without angina pectoris (CMS/HCC); Chronic diastolic [...] Start: 09-17-2024 End: 09-17-2024 ambulatory EUSEBIA TERRELL [facility] Start: 08-08-2024 End: 08-11-2024 Refill Sara Vuong ON AIR TALENT-DIALER Work Phone: [facility] Start: 07-29-2024 End: 07-30-2024 Refill Eusebia Terrell PROVIDER NETWORK MANAGER Work Phone: [facility] Comment on above: Primary hypertension (CMS/HCC); Paroxysmal atrial fibrillation (CMS/HCC); Chronic obstructive pulmonary disease, unspecified COPD type (CMS/HCC) Start: 07-18-2024 End: 07-18-2024 Telephone encounter Yolanda Willis [facility] Start: 06-19-2024 End: 06-19-2024 Bamboo flowsheet Eusebia Terrell PROVIDER NETWORK MANAGER Work Phone: [facility] Start: 06-19-2024 End: 06-19-2024 Bamboo flowsheet Eusebia Terrell PROVIDER NETWORK MANAGER Work Phone: [facility] Start: 06-19-2024 End: 06-19-2024 Patient encounter procedure Eusebia Terrell PROVIDER NETWORK MANAGER Work Phone: [facility] Comment on above: Encounter for subseq uent annual wellness visit (AWV) in Medicare patient (Primary Dx); Chronic obstructive pulmonary disease, unspecified (CMS/HCC); Chronic diastolic (congestive) heart failure (CMS/HCC); Emphysema, unspecified (CMS/HCC); Paroxysmal atrial fibrillation (CMS/HCC); Morbid (severe) obesity due to excess calories (CMS/HCC); Body mass index (BMI) 50.0-59.9, adult (CMS/HCC); CATERINA (obstructive sleep apnea); Coronary artery disease involving [place] coronary artery of [place] heart without angina pectoris (CMS/HCC); Primary hypertension (CMS/HCC); Bilateral lower extremity edema; Class 3 severe obesity due to excess calories with serious comorbidity and body mass index (BMI) of 50.0 to 59.9 in adult (CMS/HCC); Pre-diabetes; Mixed hyperlipidemia (CMS/HCC); Upper respiratory tract infection, unspecified type Start: 06-19-2024 End: 06-19-2024 ambulatory EUSEBIA AICLESTER Not Available Start: 06-16-2024 End: 06-17-2024 Refill Eusebia Terrell PROVIDER NETWORK MANAGER Work Phone: [facility] Comment on above: Primary hypertension (CMS/HCC); Paroxysmal atrial fibrillation (CMS/HCC) Start: 05-28-2024 End: 05-28-2024 ambulatory EUSEBIA David TERRELL [facility] Start: 05-23-2024 End: 05-23-2024 Telephone encounter Jeanne Green RN [facility] Comment on above: overdue lab Start: 05-06-2024 Patient encounter procedure Eusebia Xander PROVIDER NETWORK MANAGER Work Phone: [facility] Start: 04-09-2024 End: 04-09-2024 Office outpatient visit 15 minutes Eusebia Terrell PROVIDER NETWORK MANAGER Work Phone: [facility] Comment on above: Environmental and se asonal allergies (Primary Dx); Severe persistent asthma, uncomplicated ([facility]); Morbid obesity with BMI of 50.0-59.9, adult ([facility]); Pulmonary emphysema, unspecified emphysema type ([facility]) Start: 04-09-2024 End: 04-09-2024 ambulatory EUSEBIA XANDER Not Available Start: 04-09-2024 End: 04-09-2024 Bamboo flowsheet Eusebia Xander PROVIDER NETWORK MANAGER Work Phone: [facility] Start: 04-09-2024 End: 04-09-2024 Bamboo flowsheet Eusebia Xander PROVIDER NETWORK MANAGER Work Phone: [facility] Start: 03-26-2024 End: 03-26-2024 Telephone encounter Lisa Cervantes DO Work Phone: [facility] Pul[facility]Sleep [facility] Start: 03-24-2024 End: 03-24-2024 Refill Eusebia Terrell PROVIDER NETWORK MANAGER Work Phone: [facility] Comment on above: Hyperlipidemia, unsp ecified ([facility]) Med Refill Start: 02-06-2024 End: 02-06-2024 Bamboo flowsheet Eusebia Terrell PROVIDER NETWORK MANAGER Work Phone: [facility] Start: 02-06-2024 End: 02-06-2024 Bamboo flowsheet Eusebia Terrell PROVIDER NETWORK MANAGER Work Phone: [facility] Start: 02-06-2024 End: 02-06-2024 Office outpatient visit 25 minutes Eusebia Terrell PROVIDER NETWORK MANAGER Work Phone: [facility] Comment on above: Pre-diabetes (Primar y Dx); Other emphysema ([facility]/HCC); Atrial fibrillation, unspecified type ([facility]/HCC); Hyperlipidemia, unspecified ([facility]/HCC); Chronic obstructive pulmonary disease, unspecified COPD type ([facility]/HCC); Chest pain due to CAD ([facility]/HCC); Primary hypertension ([facility]/HCC); Paroxysmal atrial fibrillation ([facility]/HCC); Chronic diastolic heart failure ([facility]/HCC); Other headache syndrome; Morbid obesity ([facility]); Morbid obesity with BMI of 50.0-59.9, adult ([facility]) Start: 02-06-2024 End: 02-06-2024 ambulatory EUSEBIA TERRELL Not Available Start: 02-05-2024 End: 02-05-2024 Refill Samara Noel MD Work Phone: [facility] Comment on above: Chronic diastolic he art failure ([facility]-HCC); Coronary artery disease involving [place] coronary artery of [place] heart without angina pectoris; Persistent atrial fibrillation ([facility]-HCC) Start: 01-22-2024 End: 01-22-2024 Orders Only Sara Vuong ON AIR TALENT-DIALER Work Phone: [facility] Heart Failure [facility] Comment on above: Chronic diastolic he art failure (CMS-HCC); Coronary artery disease involving [place] coronary artery of [place] heart without angina pectoris; Persistent atrial fibrillation ([facility]-HCC) Start: 01-21-2024 End: 01-21-2024 Office outpatient visit 25 minutes Sara Vuong ON AIR TALENT-DIALER Work Phone: [facility] Comment on above: Chronic diastolic he art failure (CMS-HCC) (Primary Dx); Persistent atrial fibrillation ([facility]-HCC); Coronary artery disease involving [place] coronary artery of [place] heart without angina pectoris; Primary hypertension Start: 11-14-2023 End: 11-14-2023 Telephone encounter Orders Support User Transcribe [facility] Comment on above: Sleep Lab (Pap Order ) Start: 11-13-2023 End: 11-13-2023 Orders Only Lisa Cervantes DO Work Phone: [facility]monary[facility]Sleep [facility] Comment on above: CATERINA treated with BiP AP (Primary Dx) Start: 11-11-2023 End: 11-13-2023 Refill Samara Noel MD Work Phone: [facility] Comment on above: Chronic diastolic he art failure (CMS-HCC); Coronary artery disease involving [place] coronary artery of [place] heart without angina pectoris; Persistent atrial fibrillation ([facility]-HCC) Start: 11-05-2023 End: 11-17-2023 [facility] Start: 10-31-2023 End: 10-31-2023 Refill Nishi Max RN [facility] Comment on above: Chronic diastolic he art failure (CMS-HCC) (Primary Dx) Start: 10-25-2023 End: 10-25-2023 ambulatory LISAANGELO CERVANTES [facility] Start: 10-25-2023 End: 10-25-2023 Office outpatient visit 25 minutes Lisa Cervantes DO Work Phone: [facility] Comment on above: Chronic obstructive pulmonary disease, unspecified COPD type ([facility]-HCC) (Primary Dx); CATERINA treated with BiPAP; Pulmonary nodule; Restrictive pattern present on pulmonary function testing; History of tobacco use Start: 10-24-2023 End: 10-24-2023 Telephone encounter Griselda Gramajo [facility] Cardiology Start: 10-23-2023 End: 10-23-2023 Telephone encounter Olga Oshea CMA [facility] Cardiology Start: 10-11-2023 End: 10-11-2023 Refill Samara Noel MD Work Phone: [facility] Comment on above: Chronic diastolic he art failure (CMS-HCC); Coronary artery disease involving [place] coronary artery of [place] heart without angina pectoris; Persistent atrial fibrillation (CMS-HCC) Start: 10-08-2023 End: 10-08-2023 Office outpatient visit 25 minutes Madison Blanco MD Work Phone: [facility] Comment on above: 2-vessel coronary ar joey disease (Primary Dx); Paroxysmal atrial fibrillation (Multi); Essential hypertension; Mixed hyperlipidemia; Old ME (myocardial infarction); Morbid obesity with BMI of 50.0-59.9, adult (Multi); Former smoker Start: 10-03-2023 End: 10-03-2023 Orders Only Liliana Carballo CMA [facility] General Surgery-Bariatric Start: 08-21-2023 Telephone encounter Jeanne Green RN [facility] Comment on above: KCL Start: 08-20-2023 End: 08-20-2023 Office outpatient new 45 minutes Samara Noel MD Work Phone: [facility] Comment on above: Chronic diastolic he art failure (CMS-HCC) (Primary Dx); Coronary artery disease involving [place] coronary artery of [place] heart without angina pectoris; Persistent atrial fibrillation (CMS-HCC) Start: 07-30-2023 Refill Eusbeia Terrell NP Work Phone: [facility] Comment on above: Pulmonary emphysema, unspecified emphysema type (CMS/HCC) (Primary Dx) Start: 07-26-2023 End: 07-26-2023 Office outpatient new 45 minutes Faith Mandujano MD [facility] Comment on above: Atrial fibrillation, unspecified type (CMS-HCC) (Primary Dx); History of coronary angioplasty with insertion of stent; History of tobacco use; Primary hypertension; Paroxysmal atrial fibrillation (CMS-HCC); Bilateral lower extremity edema; Heart failure with preserved ejection fraction, unspecified HF chronicity (CMS-HCC) Start: 07-25-2023 Telephone encounter Eusebia Fischer CMA [facility] Cardiology Start: 07-20-2023 Chart abstracting Faith santos MD Work [facility]: [facility] Start: 07-19-2023 End: 07-19-2023 Office outpatient visit 25 minutes Eusebia Terrell NP Work Phone: [facility] Comment on above: Screening for prosta te [...] 25 minutes Justyn Mondragon MD Work Phone: [facility] Comment on above: CAD S/P percutaneous coronary angioplasty; Paroxysmal atrial fibrillation (CMS/HCC); Old ME (myocardial infarction); Mixed hyperlipidemia; Primary hypertension; Obstructive sleep apnea syndrome; Morbid obesity with BMI of 50.0-59.9, adult (CMS/HCC); Former smoker; Status post ablation of incompetent vein using laser Start: 10-26-2022 End: 10-26-2022 ambulatory NATALIA TERRELL Facility:H1 Start: 10-05-2022 Chart Update Eusebia Rondon Keyona menendez [facility] Work Phone: Start: 10-03-2022 Chart Update Eusebia Rondon Keyona menendez Work Phone: [facility] Work Phone: Start: 10-03-2022 [address] Mrs[address] Eusebia Rondon Xander F acility:[id number] Start: 10-02-2022 amb[address] Mrs. Eusebia Rondon Xander F acility:[id number] Start: 09-15-2022 Telephone encounter Eusebia Rondon Daphne wayne Work Phone: [facility] Work Phone: Start: 09-15-2022 End: 09-16-[address] DOCTOR HERNANDEZ Facility:H1 Start: 08-27-2022 End: 08-27-2022 ambulatory TED DE LUNA . Facility:H1 Start: 08-25-2022 Telephone encounter Eusebia wayne Work Phone: [facility] 305 DO Work Phone: Start: 08-24-2022 End: 08-25-[address] KESHAWN PECK Facility:H1 Start: 07-27-2022 STRESS KARIS, Provider : [address],[id number], Status: Pen, Time: 2:00 PM Eusebia Terrell Work Phone: [facility] Work Phone: Start: 07-19-2022 Office outpatient vi sit 25 minutes Eusebia Terrell [facility] Work Phone: Start: 07-19-2022 ambulatory JUSTYN MONDRAGON Facility: Start: 06-01-2022 End: 06-04-2022 ambulatory MIRZA GUZMÁN Facility:H1 Start: 05-29-2022 End: 05-29-2022 ambulatory DIALER EUSEBIA TERRELL Facility:H1 Start: 05-26-2022 End: 05-26-2022 ambulatory ROBERTA PERRIN Facility:H1 Start: 05-20-2022 End: 05-20-[address] SALVADOR WALTERS . Facility:H1 Start: 04-03-[address] Madison Blanco Facility: Start: 02-04-2022 End: 02-04-2022 ambulatory NATALIA TERRELL Facility:H1 Start: 01-26-2022 End: 01-26-2022 ambulatory DIALER EUSEBIA XANDER Facility:H1 Start: 01-12-2022 Office outpatient vi sit 25 minutes Eusebia Terrell Work Phone: [facility] 250 DO Work Phone: Start: 01-12-2022 Patient encounter procedure Eusebia Terrell Work Phone: [facility] 600 DO Work Phone: Start: 01-12-2022 ambulatory NATALIA Parsons y: Start: 01-11-2022 End: 01-12-2022 ambulatory DIALER EUSEBIA XANDER Facility:H1 Start: 01-08-2022 End: 01-08-2022 ambulatory DIALER EUSEBIA SOCORROHHOLZ Facility:H1 Start: 12-10-2021 End: 12-11-2021 ambulatory DIALER EUSEBIA SOCORROHHOLZ Facility:H1 Start: 11-06-2021 End: 11-07-2021 ambulatory DIALER EUSEBIA SOCORROHHOLZ Facility:H1 Start: 08-02-[address] Madison Blanco Facility:[id number] Start: 07-18-2021 Telephone encounter Eusebia Serna chholayden Work Phone: [facility] 250 DO Work Phone: Start: 05-09-2021 Rx Renewal Eusebiakelley Quintanillahho lz Work Phone: [facility] 250 DO Work Phone: Start: 04-11-2021 Office outpatient vi sit 25 minutes Eusebia Quintanillahholz Work Phone: [facility] 600 DO Work Phone: Start: 04-04-2021 Rx Renewal Eusebiakelley Quintanillahho lz Work Phone: [facility] 250 DO Work Phone: Start: 08-23-2017 Ambulatory MADISON BLANCO Faci lity:1532 Echocardiogram normal Eusebia Serna chholz Work Phone: [facility] 600 DO Work Phone: Preoperative state Eusebiakelley Lawh olz Work Phone: [facility] Work Phone: Procedures Date Procedure Procedure Detail Performing Clinician Start: 02-09-2025 ALL BASIC METABOLIC PANEL Eusebia Quintanillahholz PROVIDER NETWORK MANAGER Work Phone: Start: 01-02-2025 Complete blood count with white cell differential, automated Eusebia Xander PROVIDER NETWORK MANAGER Work Phone: Start: 09-17-2024 Lipid 1996 panel - S britt or Plasma Madison Blanco MD Work Phone: Start: 06-19-2024 Hemoglobin glycosyla piotr a1c Eusebia Terrell PROVIDER NETWORK MANAGER Work Phone: Start: 10-25-2023 Follow-up visit Follow-up LISA CERVANTES Start: 07-26-2023 Ecg routine ecg w/le ast 12 lds w/i&r Faith Mandujano MD Work Phone: Start: 04-12-2023 End: 04-13-2023 History of percutaneous transluminal coronary angioplasty History of PTCA Justyn Mondragon MD Work Phone: Start: 09-21-2022 History of placement of stent for coronary artery disease History of coronary angioplasty with insertion of stent Eusebia Terrell PROVIDER NETWORK MANAGER Work Phone: Start: 01-11-2022 PSA screening DIALER EUSEBIA TERRELL Comment on above: Performed By: #### T SH, BNP, HSTROPN, CMP #### [facility] [address] [place] [address] Dr. Jersey Butcher Start: 05-28-2017 Colonoscopy Eusebia veliz PROVIDER NETWORK MANAGER Work Phone: Cardiac catheterization Eusebia Quintanillahholayden Work Phone: Cholecystectomy Eusebia Nela Quintanillah gallo Work Phone: Comment on above: Joel Rosa; Colonoscopy Eusebia Quintanillahhol z Work Phone: Comment on above: Joel Rosa; History of percutane ous transluminal coronary angioplasty History of PTCA Eusebia Quintanillahgallo Work Phone: History of placement of stent for coronary artery disease History of coronary angioplasty with insertion of stent Faith Mandujano MD Work Phone: Operative procedure on knee Eusebia Nela Terrell Work Phone: Percutaneous translu china coronary angioplasty Eusebia Jo Xander Work Phone: Plan of Treatment Date Care Activity Detail Author Start: 09-17-2029 Lipid panel Lipid Panel [facility] Start: 05-28-2027 Screening for malign ant neoplasm of colon [facility] Start: 06-19-2025 Medicare Annual Well ness (AWV) Medicare Annual Wellness (AWV) [facility] Start: 05-21-2025 End: 05-21-2025 Patient encounter procedure 05/21/2025 9:45 AM EST Office Visit [facility] [address] [place] [phone] Lisa Cervantes, DO [address] [address] [facility] Start: 05-07-2025 End: 05-07-2025 Patient encounter procedure 05/07/2025 11:30 AM EST Appointment [facility] - Pulmonary Function [address] [place] [phone] Lisa Cervantes, DO [address] [address] [facility] Start: 02-26-2025 End: 02-26-2025 Patient encounter procedure 02/26/2025 2:00 PM EDT Office Visit [facility] [address] [place] [address] Eusebia Terrell NP [address] [place] [address] [facility] Start: 02-20-2025 End: 02-20-2025 Patient encounter procedure 02/20/2025 10:00 AM EDT Office Visit [facility] [address] [facility] [address] [place] [phone] Madison Blanco MD [address] [facility] [address] [place] [address] [facility] Start: 02-16-2025 Influenza vaccination [facility] Start: 02-02-2025 End: 02-02-2025 Patient encounter procedure 02/02/2025 2:40 PM EDT Office Visit [facility] [address] [place] [phone] Eusebia Terrell NP [address] [place] [phone] [facility] Start: 02-02-2025 End: 02-02-2026 US Thyroid gland US thyroid Imaging Routine Thyroid nodule Expected: 02/02/2025 (Approximate), Expires: 02[facility]02/2026 [facility] Work Phone: Comment on above: Expected: 02/02/2025 (Approximate), Expires: 02/02/2026 Start: 01-20-2025 Adult BMI Screening [facility] Start: 01-20-2025 Tobacco Screening Tobacco Screening [facility] [employer] [facility] Start: 01-02-2025 End: 01-02-2026 XR Chest PA and Lateral X-ray chest 2 views Imaging Routine Chronic obstructive pulmonary disease, unspecified COPD type ([facility]-HCC) Expected: 01/02/2025, Expires: 01/02/2026 [email or web address] Comment on above: Expected: 01/02/2025 , Expires: 01/02/2026 Start: 12-22-2024 End: 12-22-2024 Patient encounter procedure 12/22/2024 2:20 PM EDT Office Visit [facility] [address] [place] [phone] Eusebia Terrell, PROVIDER NETWORK MANAGER [address] [place] [address] [facility] Start: 12-22-2024 End: 12-22-2025 Basic metabolic 1998 panel - Serum or Plasma Basic metabolic panel Lab Routine Chronic diastolic heart failure (HCC) Expected: 12/22/2024 (Approximate), Expires: 12/22/2025 [facility] Comment on above: Expected: 12/22/2024 (Approximate), Expires: 12/22/2025 Start: 12-22-2024 End: 12-22-2025 CBC W Auto Differential panel - Blood CBC and differential Lab Routine Chronic diastolic heart failure (HCC) Expected: 12/22/2024 (Approximate), Expires: 12/22/2025 [facility] Work Phone: Comment on above: Expected: 12/22/2024 (Approximate), Expires: 12/22/2025 Start: 12-18-2024 End: 12-18-2024 Patient encounter procedure 12/18/2024 10:30 AM EDT Office Visit [facility] [address] [place] [address] Eusebia Terrell, GENESIS [address] [place] [address] [facility] Start: 10-24-2024 Adult BMI Screening Adult BMI Screen ing [place] Start: 10-24-2024 Tobacco Screening Tobacco Screening [place] Start: 09-18-2024 End: 09-18-2024 Patient encounter procedure [facility] Comment on above: Pulmonary emphysema, unspecified emphysema type (CMS/HCC) (Primary Dx); Coronary artery disease involving [place] coronary artery of [place] heart without angina pectoris (CMS/HCC); Chronic diastolic (congestive) heart failure; Primary hypertension (CMS/HCC); Bilateral lower extremity edema; Pre-diabetes; Mixed hyperlipidemia (CMS/HCC); Rising PSA level; Vitamin D deficiency Start: 08-19-2024 Adult BMI Screening Adult BMI Screen ing [place] Start: 08-19-2024 Tobacco Screening Tobacco Screening [place] Start: 08-18-2024 End: 08-18-2024 Patient encounter procedure 08/18/2024 2:00 PM EST Office Visit [facility] [address] [place] [address] Sara Vuong, ON AIR TALENT-DIALER [address] [place] [address] Kristina Moreno, ON AIR TALENT[employer]DIALER [address] [place] [phone] [facility] Start: 07-26-2024 Adult BMI Screening Adult BMI Screen ing [place] Start: 07-26-2024 Tobacco Screening Tobacco Screening [place] Start: 07-21-2024 End: 07-21-2024 Patient encounter procedure 07/21/2024 9:00 AM EST Office Visit [facility] [address] [place] [address] Sara Vuong, ON AIR TALENT-DIALER [address] [place] [address] [facility] Start: 06-19-2024 End: 06-19-2024 Patient encounter procedure [facility] Comment on above: Encounter for subseq uent annual wellness visit (AWV) in Medicare patient (Primary Dx); Chronic obstructive pulmonary disease, unspecified (CMS/HCC); Chronic diastolic (congestive) heart failure (CMS/HCC); Emphysema, unspecified (CMS/HCC); Paroxysmal atrial fibrillation (CMS/HCC); Morbid (severe) obesity due to excess calories (CMS/HCC); Body mass index (BMI) 50.0-59.9, adult (CMS/HCC); CATERINA (obstructive sleep apnea); Coronary artery disease involving [place] coronary artery of [place] heart without angina pectoris (CMS/HCC); Primary hypertension (CMS/HCC); Bilateral lower extremity edema; Class 3 severe obesity due to excess calories with serious comorbidity and body mass index (BMI) of 50.0 to 59.9 in adult (CMS/HCC); Pre-diabetes; Mixed hyperlipidemia (CMS/HCC) Start: 05-08-2024 End: 05-08-2024 Patient encounter procedure 05/08/2024 1:00 PM EST Office Visit [facility] [address] [place] [address] Eusebia Terrell, GENESIS [address] [place] [phone] [facility] Start: 05-06-2024 End: 05-06-2024 Patient encounter procedure 05/06/2024 10:30 AM EST Office [facility] [address] [place] [address] Eusebia Terrell, GENESIS [address] [place] [phone] [facility] Start: 05-03-2024 Adult BMI Screening Adult BMI Screen ing [place] Start: 05-03-2024 Tobacco Screening Tobacco Screening [place] Start: 04-23-2024 End: 01-21-2025 Basic metabolic 2000 panel - Serum or Plasma Basic Metabolic Panel Lab Routine Chronic diastolic heart failure ([facility]) Expected: 04/23/2024 (Approximate), Expires: 01/21/2025 [employer] Work Phone: Comment on above: Expected: 04/23/2024 (Approximate), Expires: 01/21/2025 Start: 04-09-2024 End: 04-09-2024 Patient encounter procedure [facility] Comment on above: Severe persistent as thma, uncomplicated (CMS/HCC) Start: 03-27-2024 End: 03-27-2024 Patient encounter procedure 03/27/2024 11:30 AM EDT Office Visit [facility] [address] [place] [phone] Lisa Cervantes, DO [address] [address] [facility] Start: 02-17-2024 COVID-19 Vaccine ( season) COVID-19 Vaccine () [facility] Start: 02-17-2024 Influenza vaccination [facility] Start: 02-11-2024 End: 02-11-2024 Clinical Support 02/11/2024 8:00 PM EDT Clinical Support [facility] [address] [place] [address] [place] [phone] Lisa Cervantes, DO [address] [address] [facility] Start: 02-06-2024 End: 02-06-2024 Patient encounter procedure 02/06/2024 9:00 AM EDT Office Visit [facility] [address] [place] [phone] Eusebia Terrell NP [address] [place] [phone] Other emphysema (CMS/HCC) [facility] Comment on above: Other emphysema (CMS /HCC) Start: 01-21-2024 End: 01-21-2024 Patient encounter procedure 01/21/2024 2:30 PM EDT Office Visit [facility] [address] [place] [phone] Sara Vuong, ON [employer] [address] [place] [address] [facility] Start: 11-07-2023 End: 10-30-2024 Basic metabolic 2000 panel - Serum or Plasma Basic Metabolic Panel Lab Routine Chronic diastolic heart failure ([facility]) Expected: 11/07/2023 (Approximate), Expires: 10/30/2024 [employer] Work Phone: Comment on above: Expected: 11/07/2023 (Approximate), Expires: 10/30/2024 Start: 11-05-2023 End: 11-05-2023 ambulatory 11/05/2023 8:30 AM EDT Infant Monitor [facility] Monitor [address] [phone] [facility] Start: 10-30-2023 End: 10-30-2023 Patient encounter procedure 10/30/2023 10:30 AM EDT Appointment [facility] [address] [place] [phone] Lisa Cervantes, DO [address] [address] [facility] Start: 10-25-2023 End: 10-25-2023 Patient encounter procedure 10/25/2023 2:15 PM EDT Office Visit [facility] [address] [place] [phone] Lisa Cervantes, DO [address] [phone] [facility] Start: 10-24-2023 End: 10-24-2023 Patient encounter procedure 10/24/2023 1:45 PM EDT Office Visit [facility] [address] [facility] 1 [place] [address] Juan Jose Lee MD [address] [place] [phone] [facility] Start: 10-17-2023 End: 10-17-2023 Patient encounter procedure 10/17/2023 10:00 AM EDT Office Visit [facility] [address] [facility] [address] [place] [address] Justyn Mondragon MD [address] [facility] [address], [place] [place], [place] [phone] [facility] Start: 10-04-2023 End: 10-04-2023 Patient encounter procedure 10/04/2023 10:30 AM EDT Office Visit [facility] [address] [place] [address] Lisa Cervantes, DO [address] [facility] [address] [place] [address] [facility] Start: 09-24-2023 End: 09-24-2023 Patient encounter procedure 09/24/2023 9:00 AM EDT Office Visit [facility] [address] [place] [phone] Sara Vuong, [employer] [address] [place] [address] [facility] Start: 08-27-2023 End: 08-19-2024 Basic metabolic 2000 panel - Serum or Plasma Basic Metabolic Panel Lab Routine Chronic diastolic heart failure (CMS-HCC) Coronary artery disease involving [place] coronary artery of [place] heart without angina pectoris Persistent atrial fibrillation (CMS-HCC) Expected: 08/27/2023 (Approximate), Expires: 08/19/2024 [facility] Work Phone: Comment on above: Expected: 08/27/2023 (Approximate), Expires: 08/19/2024 Start: 08-27-2023 End: 08-19-2024 Natriuretic peptide B [Mass/volume] in Blood B-type natriuretic peptide Lab Routine Chronic diastolic heart failure ([facility]) Coronary artery disease involving [place] coronary artery of [place] heart without angina pectoris Persistent atrial fibrillation (CMS-HCC) Expected: 08/27/2023 (Approximate), Expires: 08/19/2024 [place] Comment on above: Expected: 08/27/2023 (Approximate), Expires: 08/19/2024 Start: 08-27-2023 End: 08-19-2024 Thyroid profile includes TSH FT4 Thyroid profile includes TSH FT4 Lab Routine Chronic diastolic heart failure ([facility]) Coronary artery disease involving [place] coronary artery of [place] heart without angina pectoris Persistent atrial fibrillation (CMS-HCC) Expected: 08/27/2023 (Approximate), Expires: 08/19/2024 [place] Comment on above: Expected: 08/27/2023 (Approximate), Expires: 08/19/2024 Start: 08-24-2023 Adult BMI Follow Up Plan Adult BMI F ollow Up Plan [place] Start: 08-23-2023 End: 08-23-2023 Patient encounter procedure 08/23/2023 10:00 AM EST Appointment [facility] [address] [place] [phone] Lisa Cervantes M, DO [address] [place] [phone] [facility] Start: 08-14-2023 End: 08-14-2023 Patient encounter procedure 08/14/2023 10:00 AM EST [facility] [address] [place] [address] Mirza Guzmán MD [address] [place] [address] [facility] BARROS[facility] Start: 08-02-2023 End: 07-26-2024 Basic metabolic 2000 panel - Serum or Plasma Basic Metabolic Panel Lab Routine Atrial fibrillation, unspecified type ([facility]) Expected: 08/02/2023 (Approximate), Expires: 07/26/2024 [facility] Work Phone: Comment on above: Expected: 08/02/2023 (Approximate), Expires: 07/26/2024 Start: 07-26-2023 End: 07-26-2023 Patient encounter procedure 07/26/2023 1:30 PM EST Office Visit [facility] [address] [place] [address] [place] [address] Faith Mandujano MD [address] [place] [address] [facility] Start: 07-19-2023 FUV, Provider: Justyn Mondragon, Status: Pen, Time: 1:00 PM FUV, Provider: Justyn Mondragon, Status: Pen, Time: 1:00 PM -[facility] 305 DO Work Phone: Start: 07-19-2023 End: 07-19-2024 Comprehensive metabolic 2000 panel - Serum or Plasma Comprehensive metabolic panel Lab Routine Mixed hyperlipidemia (CMS/HCC) Primary hypertension (CMS/HCC) Pre-diabetes Expected: 07/19/2023 (Approximate), Expires: 07/19/2024 [facility] Comment on above: Expected: 07/19/2023 (Approximate), Expires: 07/19/2024 Start: 07-19-2023 End: 07-19-2024 Hemoglobin A1c measurement Hemoglobin A1c Lab Routine Pre-diabetes Expected: 07/19/2023 (Approximate), Expires: 07/19/2024 [facility] Comment on above: Expected: 07/19/2023 (Approximate), Expires: 07/19/2024 Start: 07-19-2023 End: 07-19-2024 Lipid 1996 panel - Serum or Plasma Lipid panel Lab Routine Mixed hyperlipidemia (CMS/HCC) Expected: 07/19/2023 (Approximate), Expires: 07/19/2024 [facility] Comment on above: Expected: 07/19/2023 (Approximate), Expires: 07/19/2024 Start: 07-19-2023 End: 07-19-2024 Microalbumin/Creatinine panel in random Urine Microalbumin / creatinine, urine ratio Lab Routine Primary hypertension (CMS/HCC) Pre-diabetes Expected: 07/19/2023 (Approximate), Expires: 07/19/2024 [facility] Comment on above: Expected: 07/19/2023 (Approximate), Expires: 07/19/2024 Start: 07-19-2023 End: 07-19-2024 Prostate specific Ag [Mass/volume] in Serum or Plasma PSA Lab Routine Screening for prostate cancer Expected: 07/19/2023 (Approximate), Expires: 07/19/2024 [facility] Work Phone: Comment on above: Expected: 07/19/2023 (Approximate), Expires: 07/19/2024 Start: 07-19-2023 End: 07-19-2024 Urinalysis complete panel - Urine Urinalysis with reflex microscopic (clean catch) Lab Routine Primary hypertension (CMS/HCC) Pre-diabetes Expected: 07/19/2023 (Approximate), Expires: 07/19/2024 [facility] Comment on above: Expected: 07/19/2023 (Approximate), Expires: 07/19/2024 Start: 07-19-2023 End: 07-19-2023 Patient encounter procedure 07/19/2023 1:00 PM EST Office Visit [facility] [address] [phone] Justyn Mondragon MD [address] [facility] Medical Office Bldg, [facility] [address] [place] [address] [facility] Start: 2023 Hepatitis B Vaccines (1 of 3 - Risk 3-dose series) Hepatitis B Vaccines (1 of 3 - Risk 3-dose series) [facility] Start: 2023 RSV High Risk: (Elde rly (60+) or Population) (1 - Risk 60-74 years 1-dose series) RSV High Risk: (Elderly (60+) or Population) (1 - Risk 60-74 years 1-dose series) [facility] Start: 2023 RSV patient s and/or patients aged 60+ years (1 - 1-dose 60+ series) RSV patients and/or patients aged 60+ years (1 - 1-dose 60+ series) [facility] Start: 02-16-2023 COVID-19 Vaccine ( season) COVID-19 Vaccine ( season) [facility] Start: 02-16-2023 Influenza vaccination [facility] Start: 10-03-2022 REST ONLY, Provider: DAYANNA HHVI NUCLEAR 01,[id number], Status: Pen, Time: 10:00 AM REST ONLY, Provider: DAYANNA HHVI NUCLEAR 01,[id number], Status: Pen, Time: 10:00 AM [facility] 305 DO Work Phone: Start: 10-02-2022 STRESSNUC2, Provider : DAYANNA HHVI NUCLEAR 01,[id number], Status: Pen, Time: 11:00 AM STRESSNUC2, Provider: DAYANNA HHVI NUCLEAR 01,[id number], Status: Pen, Time: 11:00 AM [facility] 305 DO Work Phone: Start: 07-27-2022 STRESS KARIS, Provider : JUAN HHVI NUCLEAR 01,[id number], Status: Pen, Time: 2:00 PM STRESS KARIS, Provider: [id number] HHVI NUCLEAR 01,[id number], Status: Pen, Time: 2:00 PM [facility] 305 DO Work Phone: Start: 03-29-2022 FUV, Provider: Madison Blanco, Status: Pen, Time: 1:30 PM FUV, Provider: Madison Blanco, Status: Pen, Time: 1:30 PM [facility] Work Phone: Start: 07-05-2021 FUV, Provider: Madison Blanco, Status: Pen, Time: 3:20 PM FUV, Provider: Madison Blanco, Status: Pen, Time: 3:20 PM -[facility] [place] 250 DO Work Phone: Start: 2013 Administration of varicella zoster vaccine Zoster (Shingles) Vaccine (1 of 2) [place] Start: 2013 Zoster Vaccines (1 of 2) Zoster Vacc sherrell (1 of 2) [facility] Start: 1985 DTaP/Tdap/Td Vaccine s (1 - Tdap) DTaP/Tdap/Td Vaccines (1 - Tdap) [facility] Start: 1982 DTaP,Tdap and Td Vac cines (1 - Tdap) DTaP,Tdap and Td Vaccines (1 - Tdap) [place] Start: 1982 Hepatitis A Vaccines (1 of 2 - Risk 2-dose series) Hepatitis A Vaccines (1 of 2 - Risk 2-dose series) [facility] Start: 1982 Pneumococcal vaccination Pneum ococcal Vaccine (1 of 2 - PCV) [facility] Start: 1981 Adult BMI Follow Up Plan Adult BMI F ollow Up Plan [place] Start: 1981 Diabetes mellitus screening Diabetes Screening [facility] Start: 1981 Hepatitis C screening Hepatitis C Sc reening [facility] Start: 1975 Depression Screening Depression Scre ening [place] Start: 1969 Pneumococcal Vaccine : Pediatrics (0 to 5 Years) and At-Risk Patients (6 to 64 Years) (1 - PCV) Pneumococcal Vaccine: Pediatrics (0 to 5 Years) and At-Risk Patients (6 to 64 Years) (1 - PCV) [facility] Start: 1969 Pneumococcal Vaccine : Pediatrics (0 to 5 Years) and At-Risk Patients (6 to 64 Years) (1 of 2 - PCV) Pneumococcal Vaccine: Pediatrics (0 to 5 Years) and At-Risk Patients (6 to 64 Years) (1 of 2 - PCV) [facility] Start: 1964 MMR Vaccines (1 of 1 - Standard series) MMR Vaccines (1 of 1 - Standard series) [facility] Start: 1963 COVID-19 Vaccine (#1) COVID-19 Vacci ne (#1) [facility] Start: 1963 Creatinine measurement Creatinine Le sima [facility] Start: 1963 Echocardiography Echocardiogram [facility] Start: 1963 Hepatitis B Vaccines (1 of 3 - 3-dose series) Hepatitis B Vaccines (1 of 3 - 3-dose series) [facility] Start: 1963 HIV screening HIV Screening [facility] Start: 1963 Lipid panel Lipid Panel [facility] Start: 1963 Medicare Annual Well ness (AWV) Medicare Annual Wellness (AWV) [facility] Start: 1963 Potassium measurement Potassium Leve l [facility] Start: 1963 Screening for malign ant neoplasm of colon [facility] Start: 1963 Yearly Adult Physical Yearly Adult P hysical [facility] End: 01-20-2025 Basic metabolic 2000 panel - Serum or Plasma Basic Metabolic Panel Lab Routine Chronic diastolic heart failure (CMS-HCC) Persistent atrial fibrillation (CMS-HCC) Coronary artery disease involving [place] coronary artery of [place] heart without angina pectoris Primary hypertension 1 Occurrences starting 01/21/2024 until 01/20/2025 [employer] Work Phone: Comment on above: 1 Occurrences starti ng 01/21/2024 until 01/20/2025 Basic metabolic 2000 panel - Serum or Plasma Basic Metabolic Panel Lab Routine Chronic diastolic heart failure (CMS-HCC) Persistent atrial fibrillation (CMS-HCC) Coronary artery disease involving [place] coronary artery of [place] heart without angina pectoris Primary hypertension 01/21/2024 3:17 PM EDT [email or web address] End: 07-26-2024 Magnesium [Mass/volume] in Serum or Plasma Magnesium Lab Routine Atrial fibrillation, unspecified type (CMS-HCC) 1 Occurrences starting 07/26/2023 until 07/26/2024 [email or web address] Comment on above: 1 Occurrences starti ng 07/26/2023 until 07/26/2024 End: 01-20-2025 Magnesium [Mass/volume] in Serum or Plasma Magnesium Lab Routine Chronic diastolic heart failure ([facility]-H[facility]) Persistent atrial fibrillation ([facility]) Coronary artery disease involving [place] coronary artery of [place] heart without angina pectoris Primary hypertension 1 Occurrences starting 01/21/2024 until 01/20/2025 [email or web address] Comment on above: 1 Occurrences starti ng 01/21/2024 until 01/20/2025 Magnesium [Mass/volu me] in Serum or Plasma Magnesium Lab Routine Chronic diastolic heart failure ([facility]) Persistent atrial fibrillation ([facility]) Coronary artery disease involving [place] coronary artery of [place] heart without angina pectoris Primary hypertension 01/21/2024 3:17 PM EDT [email or web address] End: 10-24-2024 Nocturnal Pulse Oximetry Nocturnal Pulse Oximetry Respiratory Care Routine Chronic obstructive pulmonary disease, unspecified COPD type ([facility]) CATERINA treated with BiPAP Restrictive pattern present on pulmonary function testing 1 Occurrences starting 10/25/2023 until 10/24/2024 [employer] Work Phone: Comment on above: 1 Occurrences starti ng 10/25/2023 until 10/24/2024 End: 11-12-2024 Polysomnography 4 or more parameters with PAP titration Polysomnography 4 or more parameters with PAP titration [facility] Routine CATERINA treated with BiPAP 1 Occurrences starting 11/13/2023 until 11/12/2024 [employer] Work Phone: Comment on above: 1 Occurrences starti ng 11/13/2023 until 11/12/2024 End: 01-02-2026 Pulmonary function test Spirometry (Flow Volume Loop) pre/post short acting bronchodilator Pulmonary function test Spirometry (Flow Volume Loop) pre/post short acting bronchodilator PFT Routine Chronic obstructive pulmonary disease, unspecified COPD type ([facility]) 1 Occurrences starting 01/02/2025 until 01/02/2026 [employer] Work Phone: Comment on above: 1 Occurrences starti ng 01/02/2025 until 01/02/2026 Payers Date Payer Category Payer Managed Care (Private) [facility] [id number] 2024 Medicaid (Managed Care) SERGIO KAPADIA [id number] 2024 Medicaid [id number] 2024 Medicaid [id number] 2023 Unknown [id number] 2023 Medicare [employer] E MEDICARE UHC MEDICARE ADVANTAGE [id number] 2023-Present [address] [address] [place] [address] [id number] 2023 Medicare (Managed Care) [facility] [id number] 2023 Private Health Insurance [facility] [id number] 2023 Medicaid [id number]. [id number] 2023 Private Health Insurance [id number] 2022 Worker's Comp, Other (unspecified) WORKER'S COMPENSATION - GENERIC PLAN [id number] 2022 Worker's Compensation WORKER'S C OMPENSATION WORKER'S COMPENSATION - GENERIC PLAN [id number] 2022-Present [phone] [address] [place] [address] [id number] [id number] 2022 Unknown 1963 Unknown [id number] 2.840.1.758295.3.579. 2.356 1963 Unknown [id number] 2.840.1.220289.3.579. 2.356 1963 Unknown [id number] 2.840.1.604875.3.579. 2.356 1963 Unknown [id number] 2.16840.1.770041.3.579. 2.356 1963 Unknown [id number] 2.16.840.1.617611.3.579. 2.593 1963 Unknown [id number] 2.16840.1.145275.3.579. 2.593 1963 Unknown [id number] 2.16.840.1.315457.3.579. 2.593 1963 Unknown [id number] 2.16.840.1.665072.3.579. 2.593 1963 Unknown [id number] 2.16.840.1.317409.3.579. 2.593 1963 Unknown [id number] 2.16.840.1.182117.3.579. 2.593 1963 Unknown [id number] 2.16.840.1.245849.3.579. 2.593 1963 Unknown [id number] 2.16.840.1.345739.3.579. 2593 1963 Unknown [id number] 2.16.840.1.447381.3.579. 2593 1963 Unknown [id number] 2.16.840.1.796111.3.579. 2.593 1963 Unknown [id number] 2.16.840.1.023570.3.579. 2593 1963 Unknown [id number] 2.16.840.1.954798.3.579. 2593 1963 Unknown [id number] 2.16.840.1.172658.3.579. 2.593 1963 Unknown [id number] 2.16.840.1.977451.3.579. 2.593 1963 Unknown [id number] 2.16.840.1.234822.3.579. 2.1068 1963 Unknown [id number] 2.16.840.1.253931.3.579. 2.1068 1963 Unknown [id number] 2.16.840.1.666275.3.579. 2.1286 1963 Unknown [id number] 2.16.840.1.614874.3.579. 2.1286 1963 Unknown [id number] 2.16.840.1.937335.3.579. 2.1244 1963 Unknown [id number] 2.16.840.1.995456.3.579. 2.1286 1963 Unknown [id number] 2.16.840.1.628970.3.579. 2.1286 1963 Unknown [id number] 2.16.840.1.599256.3.579. 2.1286 1963 Unknown [id number] 2.16.840.1.921720.3.579. 2.1286 1963 Unknown [id number] 2.16.840.1.014683.3.579. 2.1259 1963 Unknown [id number] 2.16.840.1.112360.3.579. 2.1259 1963 Unknown [id number] 2.16.840.1.850779.3.579. 2.1259 1963 Unknown [id number] 2.16.840.1.091031.3.579. 2.9 1963 Unknown [id number] 2.16.840.1.860032.3.579. 2.1259 1963 Unknown [id number] 2.16.840.1.242919.3.579. 2.9 1959 Private Health Insurance [id number] 1959 Unknown [id number] Medicaid [id number] Self-pay Self Pay [id number] Social History Date Type Detail Facility Tobacco smoking stat [facility] Unknown if ever smoked [facility] Start: 1965 Sex Assigned At Male F [facility] Start: 07-19-2023 End: 06-19-2024 Daily caffeine consumption Daily caffeine consumption [facility] 600 DO Work Phone: Comment on above: 2 (24oz) cups of cof fee daily; Quit 07/26/2012; Start: 04-13-2023 End: 02-23-2025 Tobacco smoking status NHIS Ex-smoker [facility] End: 07-31-2012 History of tobacco use Current smoker [facility] Work Phone: End: 07-31-2012 History of tobacco use Cigarette Smoker [facility] Work Phone: Start: 04-13-2023 End: 01-21-2024 Tobacco use and exposure Smokeless tobacco non-user [facility] Work Phone: Start: 04-13-2023 End: 01-21-2024 Alcohol intake Lifetime non-drinker (finding) [facility] Work Phone: Start: 1965 [facility] Work [facility]: Start: 07-19-2023 End: 06-19-2024 Gender identity Not on file [facility] Work Phone: Start: 04-03-2023 End: 10-15-2024 Exposure to SARS-CoV-2 (event) Not sure [facility] Start: 07-19-2023 End: 02-02-2025 Alcohol intake Ex-drinker (finding) [facility] Start: 06-06-2023 Alcohol Comment caffeine 1-2 c ups per day [facility] Healthcare Childcare Unknown [facility] Start: 01-21-2015 Sex Male (finding) [facility] Goals Date Patient Goal Desired Activity /State Clinical Notes 08-25-2022 to 02-02-2025 Eusebia Terrell NP - 02/02/2025 3:16 PM Melchor Terrell NP - 02/02/2025 3:16 PM Melchor Terrell NP - 02/02/2025 3:15 PM Melcohr Terrell NP - 02/02/2025 3:15 PM EDTPatient InstructionsAttachments Note Date & Type Note Facility 02-02-2025 History of Present illness Narrative Associated Problem(s): Class 3 severe obesity due to excess calories with serious comorbidity and body mass index (BMI) of 50.0 to 59.9 in adult ([facility]) Discussed with patient their BMI (actual, verses [...] for swelling in legs, and in pain. [place] [facility] X1 and [facility] ER once Given 2 atb at [facility] started on 01/31/25 for 10 days. No [...] doxycycline (MONODOX) 100 mg, 2 times daily Hevdjcvjqyk-Iozhhxqqm-Kdwino (Trelegy Ellipta) 100-62.5-25 MCG/ACT aerosol powder 1 [...] COPD (chronic obstructive pulmonary disease) with emphysema ([facility]) 06/28/2023 Coronary artery disease involving [place] coronary artery of [place] heart without angina pectoris 09/21/2022 DENIES H/O BLOOD BORNE DISEASE Hyperlipidemia Hypoxia 06/28/2023 Myocardial infarction (HCC) CATERINA (obstructive sleep apnea) 05/25/2023 Primary hypertension 05/25/2023 Severe persistent asthma, uncomplicated (HCC) 04/09/2024 Superficial phlebitis and thrombophlebitis of left lower extremity 08/16/2023 Venous insufficiency of both lower extremities Past Surgical History: Procedure Laterality Date ANGIOPLASTY 2013 CHOLECYSTECTOMY 2016 KNEE SURGERY Left 04/15/2021 SCOPE - DR GREER ([facility]) family history includes Diabetes in [...] prn duo neb, xopenex inhaler Relevant Medications Leucrifqinl-Wlljeblsm-Zkuvew (Trelegy Ellipta) 100-62.5-25 MCG/ACT aerosol powder Venous [...] (BMI) of 50.0 to 59.9 in adult ([facility]) Discussed with patient their BMI (actual, verses [...] changes in meds/doses documented in this encounter [facility] 02-02-2025 Instructions Eusebia Terrell NP - 02/02/2025 2:40 PM EDT Finish atb, wrap bilat legs with igor wraps to help with swelling See you back in 3 weeks, call sooner if worsening in condition documented in this encounter [facility] 01-02-2025 Miscellaneous Notes Patient called office to schedule a follow up with SE entry writer scheduled patient for next available 05/21/2025 [...] saturation 88-92% Will need imaging reports from [place] Weight loss would be helpful in reducing dyspnea symptoms. Heart failure clinic follow up. Deep breathing exercises. Maintain up to date on routine vaccination. Adherence to bipap advised. Will obtain nocturnal pulse ox while on RA with BIPAP to assess for indication of bleed in O2. RTC in 5 months or earlier if needed. Order placed for CXR and PFT data. Speech Writer called patient and informed him that per SE, she would like him to complete a CXR and PFT prior to his upcoming appointment on 05/21/2025. Patient verbalized understanding, entry writer provided patient with central scheduling phone number. Patient stated that he would have testing completed in April, entry writer verbalized understanding. [facility] Telephone encounter Note Patient called office to schedule a follow up with , entry writer scheduled patient for next available 05/21/2025 [...] saturation 88-92% Will need imaging reports from [place] Weight loss would be helpful in reducing dyspnea symptoms. Heart failure clinic follow up. Deep breathing exercises. Maintain up to date on routine vaccination. Adherence to bipap advised. Will obtain nocturnal pulse ox while on RA with BIPAP to assess for indication of bleed in O2. RTC in 5 months or earlier if needed. [email or web address] 01-02-2025 Telephone encounter Note Order placed for CXR and PFT data. [place] 01-02-2025 Telephone encounter Note Speech Writer called patient and informed him that per SE, she would like him to complete a CXR and PFT prior to his upcoming appointment on 05/21/2025. Patient verbalized understanding, entry writer provided patient with central scheduling phone number. Patient stated that he would have testing completed in April, entry writer verbalized understanding. [place] 12-22-2024 History of Present illness Narrative Left leg Images from the original note were not included. Elyse Duong is a 59 y.o. male presents with chief complaint of No chief complaint on file. HPI: Here for recheck: Not wearing PAP, drys mouth out too much, has not call pulmonology in [place] to get a fu appt either Breathing: [...] no compliance problems. Hypertensive end-organ damage includes CAD/ME, heart failure and PVD. SUBJECTIVE: MEDICATIONS: Current Outpatient Medications Medication Instructions apixaban (ELIQUIS) 5 mg, Oral, 2 times daily aspirin (ASPIRIN LOW DOSE) 81 mg, Oral, Daily atorvastatin (LIPITOR) 40 mg, Oral, Nightly dapagliflozin (FARXIGA) 10 mg, Oral, Daily dilTIAZem CD (CARDIZEM CD) 240 mg, Oral, Daily Xcqgmvhqxuq-Lhswyvrjt-Lofmkp (Trelegy Ellipta) 100-62.5-25 MCG/ACT aerosol powder 1 [...] emphysema (HCC) 06/28/2023 Coronary artery disease involving [place] coronary artery of [place] heart without angina pectoris 09/21/2022 DENIES H/O BLOOD BORNE DISEASE Hyperlipidemia Hypoxia 06/28/2023 Myocardial infarction (HCC) CATERINA (obstructive sleep apnea) 05/25/2023 Primary hypertension 05/25/2023 Severe persistent asthma, uncomplicated (HCC) 04/09/2024 Superficial phlebitis and thrombophlebitis of left lower extremity 08/16/2023 Venous insufficiency of both lower extremities Past Surgical History: Procedure Laterality Date ANGIOPLASTY 2013 CHOLECYSTECTOMY 2016 KNEE SURGERY Left 04/15/2021 SCOPE - [address] GREER ([facility]) family history includes Diabetes in [...] Addressed This Visit Coronary artery disease involving [place] coronary artery of [place] heart without angina pectoris Follow with cardiology [...] (BMI) of 50.0 to 59.9 in adult ([facility]) Discussed with patient their BMI (actual, verses [...] I have instructed pt to call his newspaper editor managing, he states he will do this tomorrow [...] I have instructed pt to call his newspaper editor managing, he states he will do this tomorrow [...] (BMI) of 50.0 to 59.9 in adult ([facility]) Discussed with patient their BMI (actual, verses [...] well Associated Problem(s): Coronary artery disease involving [place] coronary artery of [place] heart without angina pectoris Follow with cardiology [...] w use: NA documented in this encounter [facility] 12-22-2024 Instructions Eusebia Terrell NP - 12/22/2024 2:20 PM EDT I will check with Street Worker about your meds, the doses and your blood pressure in office today Get labs checked I also want you to call your lung doctor in [place] documented in this encounter [facility] 10-15-2024 History of Present illness Narrative [...] (Multi) Follow Up In Cardiology 3. Old ME (myocardial infarction) 4. Poor compliance 5. Essential [...] discussion and plan. documented in this encounter [facility] Work Phone: 10-15-2024 Instructions Jessy Chance LPN [...] sent through Care Everywhere.Body Mass Index, Adult (Greek)documented in this encounter [facility] Work Phone: 09-18-2024 History of Present illness [...] CD (CARDIZEM CD) 240 mg, Oral, Daily Jjpsldvkjyc-Gzurtlkjz-Wvqrzd (Trelegy Ellipta) 100-62.5-25 MCG/ACT aerosol powder 1 [...] leg cellulitis 06/06/2023 CAD (coronary artery disease) ([facility]) COPD (chronic obstructive pulmonary disease) with emphysema ([facility]) 06/28/2023 Coronary artery disease involving [place] coronary artery of [place] heart without angina pectoris ([facility]) 09/21/2022 DENIES H/O BLOOD BORNE DISEASE Hyperlipidemia ([facility]) Hypoxia 06/28/2023 Myocardial infarction ([facility]) CATERINA (obstructive sleep apnea) 05/25/2023 Primary hypertension ([facility]) 05/25/2023 Superficial phlebitis and thrombophlebitis of left lower extremity 08/16/2023 Venous insufficiency of both lower extremities Past Surgical History: Procedure Laterality Date ANGIOPLASTY 2013 CHOLECYSTECTOMY 2016 KNEE SURGERY Left 04/15/2021 SCOPE - [address] GREER ([facility]) family history includes Diabetes in [...] Addressed This Visit Coronary artery disease involving [place] coronary artery of [place] heart without angina pectoris (CMS/HCC) Follow with [...] prn duo neb, xopenex inhaler Relevant Medications Ieokumirbpo-Vcejfimym-Juzztx (Trelegy Ellipta) 100-62.5-25 MCG/ACT aerosol powder Pre-diabetes [...] prn Associated Problem(s): Coronary artery disease involving [place] coronary artery of [place] heart without angina pectoris (CMS/HCC) Follow with [...] w use: NA documented in this encounter [facility] 09-18-2024 Instructions Eusebia Terrell NP - 09/18/2024 11:00 AM EDT No med dose change, however I am going to send notes and labs to heart doctor Make an appt with Lung doctor Vit D3 2,000 international units documented in this encounter [facility] 08-08-2024 Miscellaneous Notes OV 01/21/24 BMP 05/28/24 documented in this encounter [place] 08-08-2024 Telephone encounter Note OV 01/21/24 BMP 05/28/24 [place] 07-18-2024 Miscellaneous Notes UNABLE TO LEAVE VOICEMAIL REMINDER ABOUT APPOINTMENT ON SUNDAY AT 9:00. documented in this encounter [place] 07-18-2024 Telephone encounter Note UNABLE TO LEAVE VOICEMAIL REMINDER ABOUT APPOINTMENT ON SUNDAY AT 9:00. [place] 06-19-2024 History of Present illness Narrative Associated [...] Any Hospitalizations in the last year: Specialist: funder: Dayanna, Pulmonology: dimas, Dentist: dimas, no eye [...] no compliance problems. Hypertensive end-organ damage includes CAD/ME and heart failure. Diabetes He presents for [...] CD (CARDIZEM CD) 240 mg, Oral, Daily Jehqoogkdai-Fufpjytjs-Qznrrd (Trelegy Ellipta) 100-62.5-25 MCG/ACT aerosol powder 1 [...] leg cellulitis 06/06/2023 CAD (coronary artery disease) ([facility]) COPD (chronic obstructive pulmonary disease) with emphysema ([facility]) 06/28/2023 Coronary artery disease involving [place] coronary artery of [place] heart without angina pectoris ([facility]) 09/21/2022 DENIES H/O BLOOD BORNE DISEASE Hyperlipidemia ([facility]) Hypoxia 06/28/2023 Myocardial infarction ([facility]) CATERINA (obstructive sleep apnea) 05/25/2023 Primary hypertension ([facility]) 05/25/2023 Superficial phlebitis and thrombophlebitis of left lower extremity 08/16/2023 Venous insufficiency of both lower extremities Past Surgical History: Procedure Laterality Date ANGIOPLASTY 2013 CHOLECYSTECTOMY 2016 KNEE SURGERY Left 04/15/2021 SCOPE - [address] GREER ([facility]) family history includes Diabetes in [...] Addressed This Visit Coronary artery disease involving [place] coronary artery of [place] heart without angina pectoris (CMS/HCC) Follow with cardiology Cont b preet, statin, asa Primary hypertension ([facility]/HCC) Please check blood pressure daily and record [...] NA Body mass index (BMI) 50.0-59.9, adult ([facility]) Paroxysmal atrial fibrillation ([facility]) Cardiology Current meds: asa, eliquis, cardizem, metoprolol Recommend working w pulmonology for PAP use as well Bilateral lower extremity edema Continue diuretics Elevation of legs above heart level as much as possible Recommend wearing PAP Chronic obstructive pulmonary disease, unspecified ([facility]) Current meds: trelegy, prn duo neb, xopenex [...] (Hb A1C) docked device (Completed) Mixed hyperlipidemia ([facility]) Current med statin Check labs yearly and prn Chronic diastolic (congestive) heart failure ([facility]) Follows with cardiology Daily weights, limit sodium [...] (BMI) of 50.0 to 59.9 in adult ([facility]) Discussed with patient their BMI (actual, verses [...] to help with weight loss Emphysema, unspecified ([facility]) Telegy, and prn xopenex Pulmonology as well RESOLVED: Morbid (severe) obesity due to excess calories ([facility]) URI (upper respiratory infection) Has had covid exposure, at this point will hold on atb Will give steroids and tessalon pearles Fluids, rest, if resp distress go to ER Relevant Medications benzonatate (Tessalon) 200 MG capsule predniSONE (Deltasone) 20 MG tablet Associated Problem(s): Mixed hyperlipidemia ([facility]) Current med statin Check labs yearly and [...] (BMI) of 50.0 to 59.9 in adult ([facility]) Discussed with patient their BMI (actual, verses [...] well Associated Problem(s): Coronary artery disease involving [place] coronary artery of [place] heart without angina pectoris (CMS/HCC) Follow with [...] w use: NA documented in this encounter [facility] 06-19-2024 Instructions Eusebia Terrell NP - 06/19/2024 10:00 AM EST Finish steroids, tessalon pearles, fluids, rest If worsening in breathing go to Er documented in this encounter [facility] 05-23-2024 Miscellaneous Notes Attempted to call patient an remind that bmp recheck is over dude. VM not set up, lab slip mailed to patient. documented in this encounter [place] 05-23-2024 Telephone encounter Note Attempted to call patient an remind that bmp recheck is over dude. VM not set up, lab slip mailed to patient. [place] 04-09-2024 History of Present illness Narrative Associated Problem(s): COPD (chronic obstructive pulmonary disease) with emphysema ([facility]) Stable at this time Associated Problem(s): Environmental [...] CD (CARDIZEM CD) 240 mg, Oral, Daily Frsvcsfydes-Ferihnali-Duufxu (Trelegy Ellipta) 100-62.5-25 MCG/ACT aerosol powder 1 [...] leg cellulitis 06/06/2023 CAD (coronary artery disease) ([facility]) COPD (chronic obstructive pulmonary disease) with emphysema ([facility]) 06/28/2023 Coronary artery disease involving [place] coronary artery of [place] heart without angina pectoris ([facility]) 09/21/2022 DENIES H/O BLOOD BORNE DISEASE Hyperlipidemia ([facility]) Hypoxia 06/28/2023 Myocardial infarction ([facility]) CATERINA (obstructive sleep apnea) 05/25/2023 Primary hypertension ([facility]) 05/25/2023 Superficial phlebitis and thrombophlebitis of left lower extremity 08/16/2023 Venous insufficiency of both lower extremities Past Surgical History: Procedure Laterality Date ANGIOPLASTY 2013 CHOLECYSTECTOMY 2016 KNEE SURGERY Left 04/15/2021 SCOPE - [address] GREER ([facility]) family history includes Diabetes in [...] Morbid obesity with BMI of 50.0-59.9, adult ([facility]) COPD (chronic obstructive pulmonary disease) with emphysema ([facility]) Stable at this time Severe persistent asthma, uncomplicated ([facility]) Environmental and seasonal allergies - Primary I think this represents more of allergies no viral illness not bacteria OTC allergy meds/nasal steroids Contact office if worsening in symtpoms documented in this encounter [facility] 03-26-2024 Miscellaneous Notes Speech Writer called and was unable to leave message for patient to remember to bring pap machine and power cord or SD card to appointment with SE on 03/27/24 in [place]. documented in this encounter [place] 03-26-2024 Telephone encounter Note Speech Writer called and was unable to leave message for patient to remember to bring pap machine and power cord or SD card to appointment with SE on 03/27/24 in [place]. 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 Hypertensive end-organ damage includes CAD/ME. Identifiable causes of hypertension include sleep apnea. SUBJECTIVE: MEDICATIONS: Current Outpatient Medications Medication Instructions apixaban (ELIQUIS) 5 mg, Oral, 2 times daily aspirin 81 mg, Oral, Daily atorvastatin (LIPITOR) 40 mg, Oral, Nightly dilTIAZem CD (CARDIZEM CD) 240 mg, Oral, Daily Farxiga 10 mg, Oral, Daily Tdavxwselys-Lfkvwenhf-Legyww (Trelegy Ellipta) 100-62.5-25 MCG/ACT aerosol powder 1 [...] leg cellulitis 06/06/2023 CAD (coronary artery disease) ([facility]) COPD (chronic obstructive pulmonary disease) with emphysema ([facility]) 06/28/2023 Coronary artery disease involving [place] coronary artery of [place] heart without angina pectoris ([facility]) 05/25/2023 DENIES H/O BLOOD BORNE DISEASE Hyperlipidemia ([facility]) Hypoxia 06/28/2023 Myocardial infarction ([facility]) CATERINA (obstructive sleep apnea) 05/25/2023 Primary hypertension ([facility]) 05/25/2023 Superficial phlebitis and thrombophlebitis of left lower extremity 08/16/2023 Venous insufficiency of both lower extremities Past Surgical History: Procedure Laterality Date ANGIOPLASTY 2013 CHOLECYSTECTOMY 2016 KNEE SURGERY Left 04/15/2021 SCOPE - [address] GREER ([facility]) family history includes Diabetes in [...] Cont inhalers, and Wearing oxygen 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 Pre-diabetes - Primary Has new insurance, will re try with ozempic Relevant Medications dapagliflozin (Farxiga) 10 MG Chronic diastolic heart failure (CMS/HCC) Take farxiga and diuretics and bp meds Relevant Medications dapagliflozin (Farxiga) 10 MG Other headache syndrome Neuro no deficits Possible related to not wearing pap If worsens contact office Other Visit Diagnoses Hyperlipidemia, unspecified ([facility]) Relevant Medications atorvastatin (Lipitor) 40 MG tablet Chronic obstructive pulmonary disease, unspecified COPD type (CMS/HCC) Relevant Medications Shfllokqtus-Uxgaqbzeh-Eaghsb (Trelegy Ellipta) 100-62.5-25 MCG/ACT aerosol powder levalbuterol (Xopenex) 45 MCG/ACT inhaler Chest pain due to CAD ([facility]) documented in this encounter [facility] 02-05-2024 Miscellaneous Notes OV 01/21/24 BMP 01/21/24 [facility] Telephone encounter Note OV 01/21/24 BMP 01/21/24 [facility] History of Present illness Narrative Images [...] was following with another cardiology group in [place] and had multiple hospitalizations for issues related to atrial fibrillation, volume overload and COPD exacerbations in the fall sof 2022 at [facility]. He was seen as a new patient [...] Order Specific Question: Release to patient via MyChart? Answer: Immediate [1] Magnesium Standing Status: Future Number of Occurrences: 1 Standing Expiration Date: 01/20/2025 Order Specific Question: Release to patient via MyChart? Answer: Immediate [1] B-type natriuretic peptide Standing Status: Future Number of Occurrences: 1 Standing Expiration Date: 01/20/2025 Order Specific Question: Release to patient via MyChart? Answer: Immediate [1] Medications Changed @EDPTMEDCHANGE@ SUBJECTIVE [...] mg total) by mouth in the morning. thrtygtaeig-pbiklbufw-sjuagpai (TRELEGY ELLIPTA) 100-62.5-25 mcg blister with device [...] Past Medical History: Diagnosis Date Atrial fibrillation ([facility]) Bilateral lower extremity edema CAD (coronary artery disease) Hypertension Hypoxia Knee pain Lung nodule Mixed hyperlipidemia Morbid obesity ([facility]) Myocardial infarction ([facility]) Obesity Pre-diabetes Pulmonary [place]yse[place] Sleep apnea knee pain Superficial phlebitis Venous [...] APRN-CNP 01/21/24 1522 documented in this encounter [place] 01-21-2024 Instructions SHAYLA Messer - 01/21/2024 2:30 PM EDT Blood work today Will adjust your medications if necessary after review the results documented in this encounter [place] 11-14-2023 Miscellaneous Notes 11/12 Order received 1st call to schedule Vm is not set up sent letter Pap Order and 10/24 and 05/03 notes in epic BIPAP with TCO2 monitoring documented in this encounter [place] 11-14-2023 Telephone encounter Note 11/12 Order received 1st call to schedule Vm is not set up sent letter Pap Order and 10/24 and 05/03 notes in epic BIPAP with TCO2 monitoring [place] 11-13-2023 History of Present illness Narrative Overnight pulse ox reviewed and only done on 3L. Needs repeat PAP titration with BIPAP and TCO2 monitoring to assess for needs of bleed in O2 please. documented in this encounter [place] 11-11-2023 Miscellaneous Notes Requesting 90 day supply instead of 30 OV 3/4/24 BMP 10/30/23 documented in this encounter [place] 11-11-2023 Telephone encounter Note Requesting 90 day supply instead of 30 OV 3/4/24 BMP 10/30/23 [place] 10-31-2023 Miscellaneous Notes Images from the original note were not included. Nishi Max RN 10/31/2023 2:55 PM EDT Back to Top Called patient with results, v/u. Orders placed in separate encounter. Nishi Max RN 10/31/2023 8:58 AM EDT Shakira Purdy RN 10/31/2023 8:46 AM EDT Speech Writer attempted to call patient and LM on VM but VM box has not been set up. Speech Writer called patients to review normal mag results. She will have pt call the [facility] regarding [facility] recommendations on other lab results. Samara [...] Potassium 10meq BID. documented in this encounter [place] 10-31-2023 Telephone encounter Note Images from the original note were not included. Nishi Max RN 10/31/2023 2:55 PM EDT Back to Top Called patient with results, v/u. Orders placed in separate encounter. Nishi Max RN 10/31/2023 8:58 AM EDT Shakira Purdy RN 10/31/2023 8:46 AM EDT Speech Writer attempted to call patient and LM on VM but VM box has not been set up. Speech Writer called patients to review normal mag results. She will have pt call the [facility] regarding [facility] recommendations on other lab results. Samara [...] daily, he is taking Potassium 10meq BID. [place] 10-25-2023 History of Present illness Narrative Images from the original note were not included. [facility] Progress Note Patient - [...] to establish with heart failure clinic in [facility]. He had CTA chest in March at outside facility but cannot recall where. He thinks it was likely [place]. He is not using his BIPAP at [...] Meds Medications Reviewed. Dr. Lisa Cervantes DO. [facility] Office: [phone] documented in this encounter [place] 10-24-2023 Miscellaneous Notes Speech Writer called patient's mobile number, stated call could not be completed. Speech Writer called patient's home phone, phone rang and rang until finally a busy tone came on. Unable to make contact with patient. Speech Writer needed to see if patient could bring his PAP machine with him to his appointment on 10/25/2023 documented in this encounter [place] 10-24-2023 Telephone encounter Note Speech Writer called patient's mobile number, stated call could not be completed. Speech Writer called patient's home phone, phone rang and rang until finally a busy tone came on. Unable to make contact with patient. Speech Writer needed to see if patient could bring his PAP machine with him to his appointment on 10/25/2023 [place] 10-24-2023 Miscellaneous Notes Pt was a no show for his JZL appt. T/C to pt to r/s , no answer no v/m. Letter mailed. documented in this encounter [place] 10-24-2023 Telephone encounter Note Pt was a no show for his JZL appt. T/C to pt to r/s , no answer no v/m. Letter mailed. [place] 10-23-2023 Miscellaneous Notes Attempted to phone pt to remind of appt scheduled for 10/24/23, phone just rings and then goes busy. documented in this encounter [place] 10-23-2023 Telephone encounter Note Attempted to phone pt to remind of appt scheduled for 10/24/23, phone just rings and then goes busy. [place] 10-11-2023 Miscellaneous Notes Was sent 08/20/23 with 5 refills. No show'd last appt 09/24/23. Not sending 90 as cannot confirm pt requested. Attempted to call him and no answer. documented in this encounter [place] 10-11-2023 Telephone encounter Note Was sent 08/20/23 with 5 refills. No show'd last appt 09/24/23. Not sending 90 as cannot confirm pt requested. Attempted to call him and no answer. [place] 10-08-2023 History of Present illness Narrative Subjective [...] few times. He reported he was at [facility] for atrial fibrillation. His diltiazem dose [...] Essential hypertension 4. Mixed hyperlipidemia 5. Old ME (myocardial infarction) 6. Morbid obesity with BMI [...] discussion and plan. documented in this encounter [facility] Work Phone: 10-08-2023 Instructions Cornelia Dubois LPN [...] instructions on exercise. documented in this encounter [facility] Work Phone: 08-21-2023 Miscellaneous Notes Patient seen yesterday in [place] as new patient. Calling back today as [...] as previously relayed. documented in this encounter [facility] 08-21-2023 Telephone encounter Note Patient seen yesterday in [place] as new patient. Calling back today as directed to confirm yes, he is taking potassium 10meq BID. Asking if there are any chagnes? [facility] Telephone encounter Note Cally told me yesterday and I told her to put it on his med list and he has blood work that he will be doing before we reassess his dose [facility]23 Telephone encounter Note Detailed VM left for patient with IMH response. We will re evaluate once labs completed as ordered. [email or web address] 08-21-2023 Telephone encounter Note Patient calling clinic again asking what to take. Relayed I left him a VM yesterday to continue as he is and get lab work done in a week as previously relayed. [email or web address] 08-20-2023 History of Present illness Narrative Images from the original note were not included. [facility] Patient: Elyse Duong Date of : 1965 Age: 58 y.o. Date of Encounter: 08/20/2023 REASON FOR VISIT: Chronic heart failure. Dear EUSEBIA J SHAYLA TERRELL & Faith Mandujano MD We had the pleasure of seeing your patient, Elyse Duong, in the [facility] on 08/20/2023. Mr. Duong [...] was following with another cardiology group in [place] and had multiple hospitalizations for issues related to atrial fibrillation, volume overload and COPD exacerbations in the fall of 2022 at [facility]. SUBJECTIVE HPI Mr. Duong is here for [...] I reviewed the notes sent over from [facility] and the recent visit with cardiology. Labs from [facility] 08/06/23: A1c 6.0%, BUN 19, [...] mg total) by mouth in the morning. bropeecukng-wzayspvgv-utqxvihr (TRELEGY ELLIPTA) 100-62.5-25 mcg blister with device [...] Lexiscan Result Date: 10/03/2022 Interpreted By: MADISON BLANOC MD Patient Name: ELYSE DUONG STUDY: MYOCARDIAL PERFUSION STRESS TEST WITH LEXISCAN Performing facility: [facility], [address] [place] [address], [address] Provider: Tequila Jaffe MD, FACC PCP: Dr. Tristen Terrell Supervising provider: Mary Julien MD, FACC INDICATION: DOT physical I25.10: CAD S/P percutaneous coronary angioplasty Z98.61 HISTORY: Gender: M; Age: 57 y/o ; Height: 0 cm; Weight: 154.153003 kg. CAD; High Cholesterol; HTN; Previous ME; Arrhythmias; AFib Quit smoking 10 years ago. Cardiac catheterization 2012. PTCA on RCA. COMPARISON: No comparison. ACCESSION NUMBER(S): [id number]; [id number] ORDERING CLINICIAN: TEQUILA JAFFE TECHNIQUE: TWO DAY [...] Cardiac Device: None Prior HF Hospitalizations: 04/2023 [facility] Estimated Dry Weight: TBD Today's Visit Weight: [...] coordination of care. 08/20/2023 Samara Noel MD, MERGED WITH [facility] Advanced Heart Failure & Transplant Cardiology [place] [address] [facility]. [facility] [address] [place], [place] [id number] Fax This note was completed using a voice biological aide system. Every effort was made to ensure accuracy. However, inadvertent computerized biological aide errors may be present. Pt called into clinic. Pt is taking potassium 10meq twice a day. documented in this [facility] Instructions Samara Noel MD - 08/20/2023 [...] by calling the Heart Failure Clinic at [phone]. Please call 911 for emergencies. General Heart Failure Tips: - Maintain a sodium restricted diet. Your total intake should be <2000 mg a day. A rule of thumb is to keep each meal around 500 mg. On average, Italian eat between 3,400 and 3,700 mg/day of [...] VACCINATION is advised. documented in this encounter [email or web address] 07-26-2023 History of Present illness Narrative Elyse Duong Date of visit: 07/26/2023 Date of : 1965 Age: 58 y.o. Patient Active Problem List Diagnosis Pulmonary nodule History of tobacco use CATERINA treated with BiPAP Morbid [place] Restrictive pattern present on pulmonary function testing Fatty liver Primary hypertension CAD (coronary artery disease) History of coronary angioplasty with insertion of stent Chronic obstructive pulmonary disease ([facility] Allergies Allergen Reactions Lisinopril Cough Current Outpatient [...] mg total) by mouth in the morning. 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 New to our practice. Referred for evaluation of new onset atrial fibrillation. Previously follow with [facility]. Patient stated that he wanted to establish [...] pain Lung nodule Mixed hyperlipidemia Morbid obesity ([facility]) Myocardial infarction ([facility]) Obesity Pre-diabetes Pulmonary emphysema ([facility]) Sleep apnea knee pain Superficial phlebitis Venous [...] adjustment IMPRESSIONS/PLAN 1. Atrial fibrillation, unspecified type (CMS-HCC) - POCT EKG - Basic Metabolic Panel; Future - Magnesium; Future - Ambulatory referral to Cardiac Electrophysiology; Future 2. History of coronary angioplasty with insertion of stent - POCT EKG 3. History of tobacco use - POCT EKG 4. Primary hypertension - POCT EKG 5. Paroxysmal atrial fibrillation (CMS-HCC) - Ambulatory referral to Cardiology ([facility]) - POCT EKG 6. Bilateral lower extremity edema - Ambulatory referral to Cardiology (Non[facility]) - POCT EKG 7. Heart failure with preserved ejection fraction, unspecified HF chronicity ([facility]-HCC) - [facility] - [place], [place]; Future Previous cardiac related labs and test results were reviewed and discussed with the patient. Recently diagnosed atrial fibrillation (heart chads Vasc score) on Eliquis Hx of ME CAD with hx BMS to RCA 2012 - [facility] 2014: patent stent with 40% ISR, no significant stenosis elsewehre, abrupt Lcx end suggesting possible obstruction (small vessel) Negative low risk Tiffanie nuclear stress test 09/2022 Chronic HFpEF - Normal EF TTE 04/2023 Hyperlipidemia Hx of tobacco use - quit 2012 CATERINA/ not compliant with CPAP Morbid obesity, BMI 55 Patient is here to establish care. Previously follows with [facility] heart group. Patient in atrial fibrillation with [...] Panel Magnesium Ambulatory referral to Cardiac Electrophysiology [facility] [place], [place] POCT EKG FOLLOW UP Return in about 6 months (around 01/24/2024). PCP: No primary care provider on file. Referring Physician: Eusebia Terrell, ON [employer] TALENT-DIALER [address] [place] [address] documented in this encounter [place] 07-25-2023 Miscellaneous Notes Called patient to remind them to bring their most current copy of their medication list with them to their appt. Patient verbalizes understanding. documented in this encounter [place] 07-25-2023 Telephone encounter Note Called patient to remind them to bring their most current copy of their medication list with them to their appt. Patient verbalizes understanding. [place] 07-19-2023 History of Present illness Narrative Associated Problem(s): Arrhythmia Has appt with new funder next week Cont b preet, anti coagulation, Needs to wear PAP Associated Problem(s): Bilateral lower extremity edema stable Associated Problem(s): Chronic atrial fibrillation (HCC) (CMS/HCC) (Resolved 07/19/2023) Remains in a fib, ,cont b preet, anti coagulation Recommend PAP use Fu with new funder next week Associated Problem(s): Primary hypertension (CMS/HCC) Stable on current meds Associated Problem(s): Hypoxia O2 Associated Problem(s): COPD (chronic obstructive pulmonary disease) with emphysema ([facility]) Continue with newspaper editor managing, as well as inhalers, etc Associated Problem(s): CATERINA (obstructive sleep apnea) Non complaint with PAP use Explained to pt why important to wear for heart failure, afib, and copd, will also help his LE edema Needs to call his newspaper editor managing Very SOB wheezing Both legs seeping- legs [...] appt with cardiology for next week at [email or web address]. No chest pain or dizziness Is not wearing his CPAP , states it dries him out too much, has not been to his newspaper editor managing recently either SUBJECTIVE: MEDICATIONS: Current Outpatient Medications [...] After use, clean tip and replace cap. Xccyaeyyaoe-Dovcbojrw-Fdibnv (Trelegy Ellipta) 100-62.5-25 MCG/ACT aerosol powder 1 [...] leg cellulitis 06/06/2023 CAD (coronary artery disease) ([facility]) COPD (chronic obstructive pulmonary disease) with emphysema ([facility]/HCC) 06/28/2023 Coronary artery disease involving [place] coronary artery of [place] heart without angina pectoris ([facility]) 05/25/2023 DENIES H/O BLOOD BORNE DISEASE Hyperlipidemia ([facility]) Hypoxia 06/28/2023 Myocardial infarction ([facility]) Obesity CATERINA (obstructive sleep apnea) 05/25/2023 Primary hypertension ([facility]) 05/25/2023 Superficial phlebitis and thrombophlebitis of left lower extremity Venous insufficiency of both lower extremities Past Surgical History: Procedure Laterality Date ANGIOPLASTY 2013 CHOLECYSTECTOMY 2016 KNEE SURGERY Left 04/15/20[address] - [address] GREER ([facility]) family history includes Diabetes in [...] This Visit Arrhythmia Has appt with new funder next week Cont b preet, anti coagulation, Needs to wear PAP Primary hypertension ([facility]) Stable on current meds Relevant Orders Comprehensive metabolic panel Microalbumin / creatinine, urine ratio Urinalysis with reflex microscopic (clean catch) CATERINA (obstructive sleep apnea) Non complaint with PAP use Explained to pt why important to wear for heart failure, afib, and copd, will also help his LE edema Needs to call his newspaper editor managing Hyperlipidemia ([facility]) Relevant Orders Comprehensive metabolic panel Lipid panel Morbid obesity with BMI of 50.0-59.9, adult ([facility]) Bilateral lower extremity edema stable COPD (chronic obstructive pulmonary disease) with emphysema ([facility]) Continue with newspaper editor managing, as well as inhalers, etc Hypoxia O2 Venous insufficiency of both lower extremities Screening for prostate cancer - Primary Relevant Orders PSA Pre-diabetes Relevant Orders Comprehensive metabolic panel Microalbumin / creatinine, urine ratio Urinalysis with reflex microscopic (clean catch) Hemoglobin A1c documented in this encounter [facility] 04-13-2023 History of Present illness Narrative Images from the original note were not included. CARDIOLOGY OFFICE VISIT CHIEF COMPLAINT HISTORY OF PRESENT ILLNESS The patient is being seen after recent hospitalization at [facility]. He states that he had atrial [...] coronary angioplasty Paroxysmal atrial fibrillation (CMS/HCC) Old ME (myocardial infarction) Mixed hyperlipidemia Primary hypertension Obstructive sleep apnea syndrome Morbid obesity with BMI of 50.0-59.9, adult (CMS/HCC) Former smoker Status post ablation of incompetent vein using laser @[email or web address]@ documented in this encounter [facility] Work Phone: 04-13-2023 Instructions Enrike Orozco [...] Justyn Ramirez MD documented in this encounter [facility] Work Phone: 08-25-2022 Note PROCEDURE: XR [...] by: KESHAWN PECK Date: 2022-08-25 07:01 [facility] Chief complaint Narrative - Reported ELYSE DUONG is being seen for a cardiovascular evaluation . POC for knee surgery. -[facility] [address] DO Work Phone: Evaluation note Diagnosis CAD S/P percutaneous coronary angioplasty Paroxysmal atrial fibrillation (CMS/HCC) Atrial fibrillation Old ME (myocardial infarction) Old myocardial infarction Mixed hyperlipidemia Primary hypertension Unspecified essential hypertension Obstructive sleep apnea syndrome Obstructive sleep apnea (adult) (pediatric) Morbid obesity with BMI of 50.0-59.9, adult (CMS/HCC) Former smoker Personal history of tobacco use, presenting hazards to health Status post ablation of incompetent vein using laser documented in this encounter [facility] Work Phone: Evaluation note* Diagnosis Screening [...] unspecified type (CMS/HCC) [facility] Diagnosis Pulmonary emphysema, unspecified emphysema type (CMS/HCC)- Primary [facility] Diagnosis 2-vessel coronary artery disease- Primary Paroxysmal atrial fibrillation (Multi) Atrial fibrillation Essential hypertension Unspecified essential hypertension Mixed hyperlipidemia Old ME (myocardial infarction) Old myocardial infarction Morbid obesity with BMI of 50.0-59.9, adult (Multi) Former smoker Personal history of tobacco use, presenting hazards to health documented in this encounter [facility] Work Phone: Evaluation note* Diagnosis Hyperlipidemia, unspecified (CMS/HCC) [facility] Diagnosis Bilateral lower extremity edema- Primary Primary hypertension (CMS/HCC) Unspecified essential hypertension Paroxysmal atrial fibrillation (CMS/HCC) Atrial fibrillation Morbid obesity with BMI of 50.0-59.9, adult (CMS/HCC) Bilateral lower leg cellulitis Chronic obstructive pulmonary disease, unspecified COPD type ([facility]) Bilateral lower extremity edema- Primary Acute cough Paroxysmal atrial fibrillation (CMS/HCC) Atrial fibrillation Other emphysema ([facility]/HCC) Other emphysema Morbid obesity with BMI of 50.0-59.9, adult ([facility]) Bilateral lower leg cellulitis Primary hypertension (CMS/[facility])- Primary Unspecified essential hypertension Morbid obesity with BMI of 50.0-59.9, adult ([facility]) History of tobacco use Personal history of tobacco use, presenting hazards to [facility] Pulmonary emphysema, unspecified emphysema type ([facility]/HCC) Paroxysmal atrial fibrillation ([facility]) Atrial fibrillation Bilateral lower extremity edema Hypoxia Hypoxemia Pneumonia of both lungs due to infectious organism, unspecified part of lung Acute cough Screening for prostate cancer- Primary Special screening for malignant neoplasm of prostate Mixed hyperlipidemia ([facility]) Mixed hyperlipidemia Primary hypertension ([facility]) Unspecified essential hypertension Pre-diabetes Other abnormal glucose Morbid obesity with BMI of 50.0-59.9, adult ([facility]) Hypoxia Hypoxemia Pulmonary emphysema, unspecified emphysema type ([facility]) Bilateral lower extremity edema CATERINA (obstructive sleep apnea) Obstructive sleep apnea (adult) (pediatric) Venous insufficiency of both lower extremities Atrial fibrillation, unspecified type ([facility]) Pulmonary emphysema, unspecified emphysema type ([facility])- Primary Venous insufficiency of both lower extremities Primary hypertension ([facility]) Unspecified essential hypertension Bilateral lower extremity edema Morbid obesity with BMI of 50.0-59.9, adult ([facility]) Pre-diabetes Other abnormal glucose Rising PSA level Paroxysmal atrial fibrillation (I48.0) Atrial fibrillation Pulmonary emphysema, unspecified emphysema type ([facility]/HCC)- Primary Atrial fibrillation, unspecified type ([facility]/HCC) Paroxysmal atrial fibrillation ([facility]/HCC) Atrial fibrillation CATERINA (obstructive sleep apnea) Obstructive sleep apnea (adult) (pediatric) Primary hypertension ([facility]) Unspecified essential hypertension Morbid obesity with BMI of 50.0-59.9, adult ([facility]) Chronic obstructive pulmonary disease, unspecified COPD type ([facility]) Pre-diabetes- Primary Other abnormal glucose Other thrombophilia ([facility]) CATERINA (obstructive sleep apnea) Obstructive sleep apnea (adult) (pediatric) Pulmonary emphysema, unspecified emphysema type ([facility]) Venous insufficiency of both lower extremities Primary hypertension ([facility]) Unspecified essential hypertension Paroxysmal atrial fibrillation (CMS/HCC) Atrial fibrillation Coronary artery disease involving [place] coronary artery of [place] heart without angina pectoris (CMS/HCC) Bilateral lower extremity edema Morbid obesity with BMI of 50.0-59.9, adult ([facility]) Rising PSA level Pre-diabetes- Primary Other abnormal glucose Other emphysema (CMS/HCC) Other emphysema Atrial fibrillation, unspecified type (CMS/HCC) Hyperlipidemia, unspecified (CMS/HCC) Chronic obstructive pulmonary disease, unspecified COPD type (CMS/HCC) Chest pain due to CAD (CMS/HCC) Primary hypertension (CMS/HCC) Unspecified essential hypertension Paroxysmal atrial fibrillation (CMS/HCC) Atrial fibrillation Chronic diastolic heart failure (CMS/HCC) Chronic diastolic heart failure Other headache syndrome Morbid obesity ([facility]) Morbid obesity Morbid obesity with BMI of 50.0-59.9, adult ([facility]) Environmental and seasonal allergies- Primary Severe persistent asthma, uncomplicated ([facility]) Morbid obesity with BMI of 50.0-59.9, adult ([facility]) Pulmonary emphysema, unspecified emphysema type ([facility]) documented in this encounter [facility]* Diagnosis Pre-diabetes- Primary Other abnormal glucose Other emphysema (CMS/HCC) Other emphysema Atrial fibrillation, unspecified type (CMS/[facility]) Hyperlipidemia, unspecified (CMS/[facility]) Chronic obstructive pulmonary disease, unspecified COPD type ([facility]) Chest pain due to CAD (CMS/HCC) Primary hypertension ([facility]) Unspecified essential hypertension Paroxysmal atrial fibrillation (CMS/[facility]) Atrial fibrillation Chronic diastolic heart failure ([facility]) Chronic diastolic heart failure Other headache syndrome Morbid obesity ([facility]) Morbid obesity Morbid obesity with BMI of 50.0-59.9, adult ([facility]) documented in this encounter [facility]* Diagnosis Bilateral lower extremity edema- Primary Primary hypertension (CMS/HCC) Unspecified essential hypertension Paroxysmal atrial fibrillation (CMS/HCC) Atrial fibrillation Morbid obesity with BMI of 50.0-59.9, adult ([facility]) Bilateral lower leg cellulitis Chronic obstructive pulmonary disease, unspecified COPD type (CMS/HCC) Bilateral lower extremity edema- Primary Acute cough Paroxysmal atrial fibrillation (CMS/HCC) Atrial fibrillation Other emphysema (CMS/HCC) Other emphysema Morbid obesity with BMI of 50.0-59.9, adult ([facility]) Bilateral lower leg cellulitis Primary hypertension (CMS/HCC)- Primary Unspecified essential hypertension Morbid obesity with BMI of 50.0-59.9, adult ([facility]) History of tobacco use Personal history of tobacco use, presenting hazards to health Pulmonary emphysema, unspecified emphysema type ([facility] [facility]) Paroxysmal atrial fibrillation ([facility]) Atrial fibrillation Bilateral lower extremity edema Hypoxia Hypoxemia Pneumonia of both lungs due to infectious organism, unspecified part of lung Acute cough Screening for prostate cancer- Primary Special screening for malignant neoplasm of prostate Mixed hyperlipidemia ([facility]) Mixed hyperlipidemia Primary hypertension ([facility]) Unspecified essential hypertension Pre-diabetes Other abnormal glucose Morbid obesity with BMI of 50.0-59.9, adult ([facility]) Hypoxia Hypoxemia Pulmonary emphysema, unspecified emphysema type ([facility]) Bilateral lower extremity edema CATERINA (obstructive sleep apnea) Obstructive sleep apnea (adult) (pediatric) Venous insufficiency of both lower extremities Atrial fibrillation, unspecified type ([facility]) Pulmonary emphysema, unspecified emphysema type ([facility])- Primary Venous insufficiency of both lower extremities Primary hypertension ([facility] Unspecified essential hypertension Bilateral lower extremity edema Morbid obesity with BMI of 50.0-59.9, adult ([facility]) Pre-diabetes Other abnormal glucose Rising PSA level Paroxysmal atrial fibrillation (I48.0) Atrial fibrillation Pulmonary emphysema, unspecified emphysema type ([facility])- Primary Atrial fibrillation, unspecified type ([facility]) Paroxysmal atrial fibrillation ([facility]) Atrial fibrillation CATERINA (obstructive sleep apnea) Obstructive sleep apnea (adult) (pediatric) Primary hypertension ([facility]) Unspecified essential hypertension Morbid obesity with BMI of 50.0-59.9, adult ([facility]) Chronic obstructive pulmonary disease, unspecified COPD type ([facility]) Pre-diabetes- Primary Other abnormal glucose Other thrombophilia ([facility]) CATERINA (obstructive sleep apnea) Obstructive sleep apnea (adult) (pediatric) Pulmonary emphysema, unspecified emphysema type ([facility]) Venous insufficiency of both lower extremities Primary hypertension ([facility] Unspecified essential hypertension Paroxysmal atrial fibrillation ([facility]) Atrial fibrillation Coronary artery disease involving [place] coronary artery of [place] heart without angina pectoris ([facility]) Bilateral lower extremity edema Morbid obesity with BMI of 50.0-59.9, adult ([facility]) Rising PSA level Pre-diabetes- Primary Other abnormal glucose Other emphysema ([facility]) Other emphysema Atrial fibrillation, unspecified type ([facility]) Hyperlipidemia, unspecified ([facility]) Chronic obstructive pulmonary disease, unspecified COPD type ([facility]) Chest pain due to CAD ([facility]) Primary hypertension ([facility] Unspecified essential hypertension Paroxysmal atrial fibrillation ([facility] Atrial fibrillation Chronic diastolic heart failure ([facility] Chronic diastolic heart failure Other headache syndrome Morbid obesity ([facility]) Morbid obesity Morbid obesity with BMI of 50.0-59.9, adult ([facility]) Environmental and seasonal allergies- Primary Severe persistent asthma, uncomplicated ([facility]) Morbid obesity with BMI of 50.0-59.9, adult ([facility]) Pulmonary emphysema, unspecified emphysema type ([facility]) Primary hypertension ([facility]) Unspecified essential hypertension Paroxysmal atrial fibrillation ([facility]) Atrial fibrillation documented in this encounter [facility] HealthcareEvaluation note* Diagnosis Bilateral lower extremity edema- Primary Primary hypertension ([facility]) Unspecified essential hypertension Paroxysmal atrial fibrillation ([facility]) Atrial fibrillation Morbid obesity with BMI of 50.0-59.9, adult ([facility]) Bilateral lower leg cellulitis Chronic obstructive pulmonary disease, unspecified COPD type ([facility]) Bilateral lower extremity edema- Primary Acute cough Paroxysmal atrial fibrillation ([facility]) Atrial fibrillation Other emphysema ([facility]) Other emphysema Morbid obesity with BMI of 50.0-59.9, adult ([facility]) Bilateral lower leg cellulitis Primary hypertension ([facility])- Primary Unspecified essential hypertension Morbid obesity with BMI of 50.0-59.9, adult ([facility]) History of tobacco use Personal history of tobacco use, presenting hazards to health Pulmonary emphysema, unspecified emphysema type ([facility]) Paroxysmal atrial fibrillation ([facility]) Atrial fibrillation Bilateral lower extremity edema Hypoxia Hypoxemia Pneumonia of both lungs due to infectious organism, unspecified part of lung Acute cough Screening for prostate cancer- Primary Special screening for malignant neoplasm of prostate Mixed hyperlipidemia ([facility]) Mixed hyperlipidemia Primary hypertension ([facility]) Unspecified essential hypertension Pre-diabetes Other abnormal glucose Morbid obesity with BMI of 50.0-59.9, adult ([facility]) Hypoxia Hypoxemia Pulmonary emphysema, unspecified emphysema type ([facility]/HCC) Bilateral lower extremity edema CAT[place]INA (obstructive sleep apnea) Obstructive sleep apnea (adult) (pediatric) Venous insufficiency of both lower extremities Atrial fibrillation, unspecified type ([facility]) Pulmonary emphysema, unspecified emphysema type (CMS/HCC)- Primary Venous insufficiency of both lower extremities Primary hypertension ([facility]) Unspecified essential hypertension Bilateral lower extremity edema Morbid obesity with BMI of 50.0-59.9, adult ([facility]) Pre-diabetes Other abnormal glucose Rising PSA level Paroxysmal atrial fibrillation (I48.0) Atrial fibrillation Pulmonary emphysema, unspecified emphysema type ([facility]/HCC)- Primary Atrial fibrillation, unspecified type ([facility]) Paroxysmal atrial fibrillation (CMS/HCC) Atrial fibrillation CAT[place]INA (obstructive sleep apnea) Obstructive sleep apnea (adult) (pediatric) Primary hypertension (CMS/HCC) Unspecified essential hypertension Morbid obesity with BMI of 50.0-59.9, adult ([facility]) Chronic obstructive pulmonary disease, unspecified COPD type ([facility]) Pre-diabetes- Primary Other abnormal glucose Other thrombophilia ([facility]) [place] (obstructive sleep apnea) Obstructive sleep apnea (adult) (pediatric) Pulmonary emphysema, unspecified emphysema type ([facility]) Venous insufficiency of both lower extremities Primary hypertension ([facility]) Unspecified essential hypertension Paroxysmal atrial fibrillation ([facility]) Atrial fibrillation Coronary artery disease involving [place] coronary artery of [place] heart without angina pectoris (CMS/[facility]) Bilateral lower extremity edema Morbid obesity with BMI of 50.0-59.9, adult ([facility]) Rising PSA level Pre-diabetes- Primary Other abnormal glucose Other emphysema (CMS/HCC) Other emphysema Atrial fibrillation, unspecified type ([facility]) Hyperlipidemia, unspecified (CMS/[facility]) Chronic obstructive pulmonary disease, unspecified COPD type ([facility]) Chest pain due to CAD ([facility]) Primary hypertension ([facility] Unspecified essential hypertension Paroxysmal atrial fibrillation ([facility] Atrial fibrillation Chronic diastolic heart failure ([facility] Chronic diastolic heart failure Other headache syndrome Morbid obesity ([facility]) Morbid obesity Morbid obesity with BMI of 50.0-59.9, adult ([facility]) Environmental and seasonal allergies- Primary Severe persistent asthma, uncomplicated ([facility]) Morbid obesity with BMI of 50.0-59.9, adult ([facility]) Pulmonary emphysema, unspecified emphysema type ([facility]) Encounter for subsequent annual wellness visit (AWV) in Medicare patient- Primary Chronic obstructive pulmonary disease, unspecified (CMS/[facility]) Chronic diastolic (congestive) heart failure (CMS/[facility]) Emphysema, unspecified ([facility]/HCC) Paroxysmal atrial fibrillation ([facility]/HCC) Atrial fibrillation Morbid (severe) obesity due to excess calories ([facility]) Body mass index (BMI) 50.0-59.9, adult ([facility]) CATERINA (obstructive sleep apnea) Obstructive sleep apnea (adult) (pediatric) Coronary artery disease involving [place] coronary artery of [place] heart without angina pectoris ([facility]) Primary hypertension ([facility]) Unspecified essential hypertension Bilateral lower extremity edema Class 3 severe obesity due to excess calories with serious comorbidity and body mass index (BMI) of 50.0 to 59.9 in adult ([facility]) Pre-diabetes Other abnormal glucose Mixed hyperlipidemia ([facility]) Mixed hyperlipidemia Upper respiratory tract infection, unspecified type documented in this encounter [facility] HealthcareEvaluation note* Diagnosis Chronic diastolic heart failure ([facility] Chronic diastolic heart failure Coronary artery disease involving [place] coronary artery of [place] heart without angina pectoris Persistent atrial fibrillation ([facility]) Atrial fibrillation documented in this encounter [facility] SystemEvaluation note* Diagnosis Bilateral lower extremity edema- Primary Primary hypertension ([facility]) Unspecified essential hypertension Paroxysmal atrial fibrillation ([facility]) Atrial fibrillation Morbid obesity with BMI of 50.0-59.9, adult ([facility]) Bilateral lower leg cellulitis Chronic obstructive pulmonary disease, unspecified COPD type ([facility]) Bilateral lower extremity edema- Primary Acute cough Paroxysmal atrial fibrillation ([facility]) Atrial fibrillation Other emphysema ([facility]) Other emphysema Morbid obesity with BMI of 50.0-59.9, adult ([facility]) Bilateral lower leg cellulitis Primary hypertension ([facility])- Primary Unspecified essential hypertension Morbid obesity with BMI of 50.0-59.9, adult ([facility]) History of tobacco use Personal history of tobacco use, presenting hazards to health Pulmonary emphysema, unspecified emphysema type ([facility]) Paroxysmal atrial fibrillation ([facility]) Atrial fibrillation Bilateral lower extremity edema Hypoxia Hypoxemia Pneumonia of both lungs due to infectious organism, unspecified part of lung Acute cough Screening for prostate cancer- Primary Special screening for malignant neoplasm of prostate Mixed hyperlipidemia ([facility]/HCC) Mixed hyperlipidemia Primary hypertension ([facility]) Unspecified essential hypertension Pre-diabetes Other abnormal glucose Morbid obesity with BMI of 50.0-59.9, adult ([facility]) Hypoxia Hypoxemia Pulmonary emphysema, unspecified emphysema type ([facility]/HCC) Bilateral lower extremity edema [place] (obstructive sleep apnea) Obstructive sleep apnea (adult) (pediatric) Venous insufficiency of both lower extremities Atrial fibrillation, unspecified type (CMS/HCC) Pulmonary emphysema, unspecified emphysema type (CMS/HCC)- Primary Venous insufficiency of both lower extremities Primary hypertension (CMS/[facility]) Unspecified essential hypertension Bilateral lower extremity edema Morbid obesity with BMI of 50.0-59.9, adult ([facility]) Pre-diabetes Other abnormal glucose Rising PSA level Paroxysmal atrial fibrillation (I48.0) Atrial fibrillation Pulmonary emphysema, unspecified emphysema type (CMS/HCC)- Primary Atrial fibrillation, unspecified type (CMS/HCC) Paroxysmal atrial fibrillation (CMS/HCC) Atrial fibrillation CAT[place] (obstructive sleep apnea) Obstructive sleep apnea (adult) (pediatric) Primary hypertension (CMS/HCC) Unspecified essential hypertension Morbid obesity with BMI of 50.0-59.9, adult ([facility]) Chronic obstructive pulmonary disease, unspecified COPD type (CMS/[facility]) Pre-diabetes- Primary Other abnormal glucose Other thrombophilia ([facility]) [place] (obstructive sleep apnea) Obstructive sleep apnea (adult) (pediatric) Pulmonary emphysema, unspecified emphysema type ([facility]) Venous insufficiency of both lower extremities Primary hypertension (CMS/[facility]) Unspecified essential hypertension Paroxysmal atrial fibrillation (CMS/[facility]) Atrial fibrillation Coronary artery disease involving [place] coronary artery of [place] heart without angina pectoris ([facility]) Bilateral lower extremity edema Morbid obesity with BMI of 50.0-59.9, adult ([facility]) Rising PSA level Pre-diabetes- Primary Other abnormal glucose Other emphysema (CMS/[facility]) Other emphysema Atrial fibrillation, unspecified type ([facility]) Hyperlipidemia, unspecified ([facility]) Chronic obstructive pulmonary disease, unspecified COPD type ([facility]) Chest pain due to CAD ([facility]) Primary hypertension ([facility] Unspecified essential hypertension Paroxysmal atrial fibrillation ([facility] Atrial fibrillation Chronic diastolic heart failure ([facility] Chronic diastolic heart failure Other headache syndrome Morbid obesity ([facility]) Morbid obesity Morbid obesity with BMI of 50.0-59.9, adult ([facility]) Environmental and seasonal allergies- Primary Severe persistent asthma, uncomplicated ([facility]) Morbid obesity with BMI of 50.0-59.9, adult ([facility]) Pulmonary emphysema, unspecified emphysema type ([facility]) Encounter for subsequent annual wellness visit (AWV) in Medicare patient- Primary Chronic obstructive pulmonary disease, unspecified ([facility]/HCC) Chronic diastolic (congestive) heart failure (CMS/[facility]) Emphysema, unspecified ([facility]) Paroxysmal atrial fibrillation ([facility]/HCC) Atrial fibrillation Morbid (severe) obesity due to excess calories ([facility]) Body mass index (BMI) 50.0-59.9, adult ([facility]) CAT[place]INA (obstructive sleep apnea) Obstructive sleep apnea (adult) (pediatric) Coronary artery disease involving [place] coronary artery of [place] heart without angina pectoris ([facility]) Primary hypertension ([facility]) Unspecified essential hypertension Bilateral lower extremity edema Class 3 severe obesity due to excess calories with serious comorbidity and body mass index (BMI) of 50.0 to 59.9 in adult ([facility]) Pre-diabetes Other abnormal glucose Mixed hyperlipidemia ([facility]) Mixed hyperlipidemia Upper respiratory tract infection, unspecified type Primary hypertension ([facility]) Unspecified essential hypertension Paroxysmal atrial fibrillation ([facility]) Atrial fibrillation Chronic obstructive pulmonary disease, unspecified COPD type ([facility]) documented in this encounter [facility] HealthcareEvaluation note* Diagnosis Chronic obstructive pulmonary disease, unspecified COPD type ([facility])- Primary [place] treated with BiPAP Pulmonary nodule Other diseases of lung, not elsewhere classified Restrictive pattern present on pulmonary function testing History of tobacco use Personal history of tobacco use, presenting hazards to health documented in this encounter [facility] SystemEvaluation note* Diagnosis Chronic diastolic heart failure ([facility]-HCC)- Primary Chronic diastolic heart failure documented in this encounter [facility] SystemEvaluation note* Diagnosis CATERINA treated with BiPAP- Primary documented in this encounter [facility] SystemEvaluation note* Diagnosis Chronic diastolic heart failure ([facility]-HCC) Chronic diastolic heart failure Coronary artery disease involving [place] coronary artery of [place] heart without angina pectoris Persistent atrial fibrillation ([facility]) Atrial fibrillation documented in this encounter [facility] SystemEvaluation note* Diagnosis Atrial fibrillation, unspecified type ([facility]-HCC)- Primary History of coronary angioplasty with insertion of stent History of tobacco use Personal history of tobacco use, presenting hazards to health Primary hypertension Unspecified essential hypertension Paroxysmal atrial fibrillation ([facility]-HCC) Atrial fibrillation Bilateral lower extremity edema Heart failure with preserved ejection fraction, unspecified HF chronicity ([facility]) documented in this encounter [facility] SystemEvaluation note* Diagnosis Chronic diastolic heart failure ([facility]-HCC)- Primary Chronic diastolic heart failure Coronary artery disease involving [place] coronary artery of [place] heart without angina pectoris Persistent atrial fibrillation (CMS-HCC) Atrial fibrillation documented in this encounter [facility] SystemEvaluation note* Diagnosis Chronic diastolic heart failure (CMS-HCC)- Primary Chronic diastolic heart failure Persistent atrial fibrillation (CMS-HCC) Atrial fibrillation Coronary artery disease involving [place] coronary artery of [place] heart without angina pectoris Primary hypertension Unspecified essential hypertension documented [facility]* Diagnosis Chronic diastolic heart failure (CMS-HCC) Chronic diastolic heart failure Coronary artery disease involving [place] coronary artery of [place] heart without angina pectoris Persistent atrial fibrillation (CMS-HCC) Atrial fibrillation documented in this encounter [facility]* Diagnosis Chronic diastolic heart failure (CMS-HCC) Chronic diastolic heart failure Coronary artery disease involving [place] coronary artery of [place] heart without angina pectoris Persistent atrial fibrillation (CMS-HCC) Atrial fibrillation documented in this encounter [facility]* Diagnosis Bilateral lower extremity [...] Morbid obesity with BMI of 50.0-59.9, adult ([facility]/HCC) History of tobacco use Personal history of tobacco use, presenting hazards to [facility] Pulmonary emphysema, unspecified emphysema type (CMS/HCC) Paroxysmal [...] Morbid obesity with BMI of 50.0-59.9, adult ([facility]) Pre-diabetes Other abnormal glucose Rising PSA level Paroxysmal atrial fibrillation (I48.0) Atrial fibrillation Pulmonary emphysema, unspecified emphysema type (CMS/HCC)- Primary Atrial fibrillation, unspecified type (CMS/HCC) Paroxysmal atrial fibrillation (CMS/HCC) Atrial fibrillation CAT[place]INA (obstructive sleep apnea) Obstructive sleep apnea (adult) (pediatric) Primary hypertension (CMS/HCC) Unspecified essential hypertension Morbid obesity with BMI of 50.0-59.9, adult ([facility]) Chronic obstructive pulmonary disease, unspecified COPD type (CMS/[facility]) Pre-diabetes- Primary Other abnormal glucose Other thrombophilia CAT[place]INA (obstructive sleep apnea) Obstructive sleep apnea (adult) (pediatric) Pulmonary emphysema, unspecified emphysema type ([facility]/HCC) Venous insufficiency of both lower extremities Primary hypertension (CMS/HCC) Unspecified essential hypertension Paroxysmal atrial fibrillation (CMS/[facility]) Atrial fibrillation Coronary artery disease involving [place] coronary artery of [place] heart without angina pectoris (CMS/[facility]) Bilateral lower extremity edema Morbid obesity with BMI of 50.0-59.9, adult ([facility]) Rising PSA level Pre-diabetes- Primary Other abnormal glucose Other emphysema (CMS/HCC) Other emphysema Atrial fibrillation, unspecified type (CMS/[facility]) Hyperlipidemia, unspecified (CMS/[facility]) Chronic obstructive pulmonary disease, unspecified COPD type ([facility]) Chest pain due to CAD (CMS/[facility]) Primary hypertension ([facility]) Unspecified essential hypertension Paroxysmal atrial fibrillation ([facility]) Atrial fibrillation Chronic diastolic heart failure ([facility]) Chronic diastolic heart failure Other headache syndrome Morbid obesity ([facility]) Morbid obesity Morbid obesity with BMI of 50.0-59.9, adult ([facility]) Environmental and seasonal allergies- Primary Severe persistent asthma, uncomplicated (CMS/[facility]) Morbid obesity with BMI of 50.0-59.9, adult ([facility]) Pulmonary emphysema, unspecified emphysema type ([facility]) Encounter for subsequent annual wellness visit (AWV) in Medicare patient- Primary Chronic obstructive pulmonary disease, unspecified Chronic diastolic (congestive) heart failure Emphysema, unspecified Paroxysmal atrial fibrillation (CMS/HCC) Atrial fibrillation Morbid (severe) obesity due to excess calories (CMS/HCC) Body mass index (BMI) 50.0-59.9, adult (CMS/HCC) CATERINA (obstructive sleep apnea) Obstructive sleep apnea (adult) (pediatric) Coronary artery disease involving [place] coronary artery of [place] heart without angina pectoris (CMS/HCC) Primary hypertension [...] emphysema type (CMS/HCC) Coronary artery disease involving [place] coronary artery of [place] heart without angina pectoris (CMS/HCC) Chronic diastolic [...] apnea (adult) (pediatric) documented in this encounter [facility] HealthcareEvaluation note* Diagnosis 2-vessel coronary artery disease- Primary Paroxysmal atrial fibrillation (Multi) Atrial fibrillation [place] (myocardial infarction) Old myocardial infarction Poor compliance Essential hypertension Unspecified essential hypertension Morbid obesity with BMI of 50.0-59.9, adult (Multi) Obstructive sleep apnea syndrome Obstructive sleep apnea (adult) (pediatric) Former smoker Personal history of tobacco use, presenting hazards to health documented in this encounter [facility] Work Phone: Evaluation note* Diagnosis Bilateral lower extremity edema- Primary Primary hypertension Unspecified essential hypertension Paroxysmal atrial fibrillation (HCC) Atrial fibrillation Morbid obesity with BMI of 50.0-59.9, adult (CMS-HCC) Bilateral lower leg cellulitis Chronic obstructive pulmonary disease, unspecified COPD type (HCC) Bilateral lower extremity edema- Primary Acute cough Paroxysmal atrial fibrillation (HCC) Atrial fibrillation Other emphysema (HCC) Other emphysema Morbid obesity with BMI of 50.0-59.9, adult (CMS-HCC) Bilateral lower leg cellulitis Primary hypertension- Primary Unspecified essential hypertension Morbid obesity with BMI of 50.0-59.9, adult [place] History of tobacco use Personal history of [...] Morbid obesity with BMI of 50.0-59.9, adult [place] Hypoxia Hypoxemia Pulmonary emphysema, unspecified emphysema type ([facility]) Bilateral lower extremity edema [place]INA (obstructive sleep apnea) Obstructive sleep apnea (adult) (pediatric) Venous insufficiency of both lower extremities Atrial fibrillation, unspecified type (HCC) Pulmonary emphysema, unspecified emphysema type (HCC)- Primary Venous insufficiency of both lower extremities Primary hypertension Unspecified essential hypertension Bilateral lower extremity edema Morbid obesity with BMI of 50.0-59.9, adult ([facility] Pre-diabetes Other abnormal glucose Rising PSA level Paroxysmal atrial fibrillation (I48.0) Atrial fibrillation Pulmonary emphysema, unspecified emphysema type (HCC)- Primary Atrial fibrillation, unspecified type ([facility]) Paroxysmal atrial fibrillation (HCC) Atrial fibrillation [place] (obstructive sleep apnea) Obstructive sleep apnea (adult) (pediatric) Primary hypertension Unspecified essential hypertension Morbid obesity with BMI of 50.0-59.9, adult ([facility] Chronic obstructive pulmonary disease, unspecified COPD type ([facility]) Pre-diabetes- Primary Other abnormal glucose Other thrombophilia ([facility]) [place] (obstructive sleep apnea) Obstructive sleep apnea (adult) (pediatric) Pulmonary emphysema, unspecified emphysema type (HCC) Venous insufficiency of both lower extremities Primary hypertension Unspecified essential hypertension Paroxysmal atrial fibrillation (HCC) Atrial fibrillation Coronary artery disease involving [place] coronary artery of [place] heart without angina pectoris Bilateral lower extremity edema Morbid obesity with BMI of 50.0-59.9, adult ([facility] Rising PSA level Pre-diabetes- Primary Other abnormal glucose Other emphysema (HCC) Other emphysema Atrial fibrillation, unspecified type (HCC) Hyperlipidemia, unspecified Chronic obstructive pulmonary disease, unspecified COPD type ([facility]) Chest pain due to CAD Primary hypertension Unspecified essential hypertension Paroxysmal atrial fibrillation (HCC) Atrial fibrillation Chronic diastolic heart failure (HCC) Chronic diastolic heart failure Other headache syndrome Morbid obesity ([facility]) Morbid obesity Morbid obesity with BMI of 50.0-59.9, adult ([facility] Environmental and seasonal allergies- Primary Severe persistent asthma, uncomplicated (HCC) Morbid obesity with BMI of 50.0-59.9, adult ([facility] Pulmonary emphysema, unspecified emphysema type ([facility]) Encounter for subsequent annual wellness visit (AWV) in Medicare patient- Primary Chronic obstructive pulmonary disease, unspecified (HCC) Chronic diastolic (congestive) heart failure (HCC) Emphysema, unspecified (HCC) Paroxysmal atrial fibrillation (HCC) Atrial fibrillation Morbid (severe) obesity due to excess calories ([facility] Body mass index (BMI) 50.0-59.9, adult ([facility]) CAT[place]INA (obstructive sleep apnea) Obstructive sleep apnea (adult) (pediatric) Coronary artery disease involving [place] coronary artery of [place] heart without angina pectoris Primary hypertension Unspecified essential hypertension Bilateral lower extremity edema Class 3 severe obesity due to excess calories with serious comorbidity and body mass index (BMI) of 50.0 to 59.9 in adult ([facility] Pre-diabetes Other abnormal glucose Mixed hyperlipidemia Mixed hyperlipidemia Upper respiratory tract infection, unspecified type Primary hypertension- Primary Unspecified essential hypertension Pulmonary emphysema, unspecified emphysema type ([facility]) Coronary artery disease involving [place] coronary artery of [place] heart without angina pectoris Chronic diastolic (congestive) heart failure (HCC) Bilateral lower extremity edema Pre-diabetes Other abnormal glucose Mixed hyperlipidemia Mixed hyperlipidemia Rising PSA level Vitamin D deficiency Hyperlipidemia, unspecified Chronic diastolic heart failure (HCC) Chronic diastolic heart failure Atrial fibrillation, unspecified type (HCC) Chronic obstructive pulmonary disease, unspecified COPD type ([facility]) [place]INA (obstructive sleep apnea) Obstructive sleep apnea (adult) (pediatric) Paroxysmal atrial fibrillation (HCC) Atrial fibrillation documented in this encounter [facility] HealthcareEvaluation note* Diagnosis Bilateral lower extremity edema- Primary Primary hypertension Unspecified essential hypertension Paroxysmal atrial fibrillation (HCC) Atrial fibrillation Morbid obesity with BMI of 50.0-59.9, adult ([facility] Bilateral lower leg cellulitis Chronic obstructive pulmonary disease, unspecified COPD type ([facility]) Bilateral lower extremity edema- Primary Acute cough Paroxysmal atrial fibrillation (HCC) Atrial fibrillation Other emphysema (HCC) Other emphysema Morbid obesity with BMI of 50.0-59.9, adult ([facility] Bilateral lower leg cellulitis Primary hypertension- Primary Unspecified essential hypertension Morbid obesity with BMI of 50.0-59.9, adult ([facility] History of tobacco use Personal history of [...] Morbid obesity with BMI of 50.0-59.9, adult ([facility] Hypoxia Hypoxemia Pulmonary emphysema, unspecified emphysema type (HCC) Bilateral lower extremity edema [place] (obstructive sleep apnea) Obstructive sleep apnea (adult) (pediatric) Venous insufficiency of both lower extremities Atrial fibrillation, unspecified type (HCC) Pulmonary emphysema, unspecified emphysema type (HCC)- Primary Venous insufficiency of both lower extremities Primary hypertension Unspecified essential hypertension Bilateral lower extremity edema Morbid obesity with BMI of 50.0-59.9, adult ([facility] Pre-diabetes Other abnormal glucose Rising PSA level Paroxysmal atrial fibrillation (I48.0) Atrial fibrillation Pulmonary emphysema, unspecified emphysema type (HCC)- Primary Atrial fibrillation, unspecified type (HCC) Paroxysmal atrial fibrillation (HCC) Atrial fibrillation [place] (obstructive sleep apnea) Obstructive sleep apnea (adult) (pediatric) Primary hypertension Unspecified essential hypertension Morbid obesity with BMI of 50.0-59.9, adult ([facility] Chronic obstructive pulmonary disease, unspecified COPD type (HCC) Pre-diabetes- Primary Other abnormal glucose Other thrombophilia ([facility]) CAT[place]INA (obstructive sleep apnea) Obstructive sleep apnea (adult) (pediatric) Pulmonary emphysema, unspecified emphysema type (HCC) Venous insufficiency of both lower extremities Primary hypertension Unspecified essential hypertension Paroxysmal atrial fibrillation (HCC) Atrial fibrillation Coronary artery disease involving [place] coronary artery of [place] heart without angina pectoris Bilateral lower extremity edema Morbid obesity with BMI of 50.0-59.9, adult ([facility] Rising PSA level Pre-diabetes- Primary Other abnormal glucose Other emphysema (HCC) Other emphysema Atrial fibrillation, unspecified type (HCC) Hyperlipidemia, unspecified Chronic obstructive pulmonary disease, unspecified COPD type ([facility]) Chest pain due to CAD Primary hypertension Unspecified essential hypertension Paroxysmal atrial fibrillation (HCC) Atrial fibrillation Chronic diastolic heart failure (HCC) Chronic diastolic heart failure Other headache syndrome Morbid obesity ([facility]) Morbid obesity Morbid obesity with BMI of 50.0-59.9, adult ([facility] Environmental and seasonal allergies- Primary Severe persistent asthma, uncomplicated (HCC) Morbid obesity with BMI of 50.0-59.9, adult ([facility]) Pulmonary emphysema, unspecified emphysema type (HCC) Encounter for subsequent annual wellness visit (AWV) in Medicare patient- Primary Chronic obstructive pulmonary disease, unspecified (HCC) Chronic diastolic (congestive) heart failure (HCC) Emphysema, unspecified (HCC) Paroxysmal atrial fibrillation (HCC) Atrial fibrillation Morbid (severe) obesity due to excess calories ([facility]) Body mass index (BMI) 50.0-59.9, adult ([facility] CATERINA (obstructive sleep apnea) Obstructive sleep apnea (adult) (pediatric) Coronary artery disease involving [place] coronary artery of [place] heart without angina pectoris Primary hypertension Unspecified essential hypertension Bilateral lower extremity edema Class 3 severe obesity due to excess calories with serious comorbidity and body mass index (BMI) of 50.0 to 59.9 in adult ([facility] Pre-diabetes Other abnormal glucose Mixed hyperlipidemia Mixed hyperlipidemia Upper respiratory tract infection, unspecified type Primary hypertension- Primary Unspecified essential hypertension Pulmonary emphysema, unspecified emphysema type (HCC) Coronary artery disease involving [place] coronary artery of [place] heart without angina pectoris Chronic diastolic (congestive) [...] heart failure (HCC) Coronary artery disease involving [place] coronary artery of [place] heart without angina pectoris Paroxysmal atrial fibrillation (HCC) Atrial fibrillation Bilateral lower extremity edema Class 3 severe obesity due to excess calories with serious comorbidity and body mass index (BMI) of 50.0 to 59.9 in adult ([facility] Pre-diabetes Other abnormal glucose Thyroid nodule Nontoxic uninodular goiter Pulmonary emphysema, unspecified emphysema type (HCC) Moderate persistent asthma without complication (HCC) Hyperlipidemia, unspecified Chronic diastolic heart failure (HCC) Chronic diastolic heart failure Atrial fibrillation, unspecified type (HCC) documented in this encounter [facility] HealthcareEvaluation note* Diagnosis Chronic obstructive pulmonary disease, unspecified COPD type ([facility]-HCC)- Primary [facility]* Diagnosis Bilateral lower extremity edema- Primary Primary hypertension Unspecified essential hypertension Paroxysmal atrial fibrillation (HCC) Atrial fibrillation Morbid obesity with BMI of 50.0-59.9, adult ([facility] Bilateral lower leg cellulitis Chronic obstructive pulmonary disease, unspecified COPD type ([facility]) Bilateral lower extremity edema- Primary Acute cough Paroxysmal atrial fibrillation (HCC) Atrial fibrillation Other emphysema (HCC) Other emphysema Morbid obesity with BMI of 50.0-59.9, adult ([facility] Bilateral lower leg cellulitis Primary hypertension- Primary Unspecified essential hypertension Morbid obesity with BMI of 50.0-59.9, adult ([facility] History of tobacco use Personal history of [...] Morbid obesity with BMI of 50.0-59.9, adult ([facility] Hypoxia Hypoxemia Pulmonary emphysema, unspecified emphysema type (HCC) Bilateral lower extremity edema CAT[place]INA (obstructive sleep apnea) Obstructive sleep apnea (adult) (pediatric) Venous insufficiency of both lower extremities Atrial fibrillation, unspecified type (HCC) Pulmonary emphysema, unspecified emphysema type (HCC)- Primary Venous insufficiency of both lower extremities Primary hypertension Unspecified essential hypertension Bilateral lower extremity edema Morbid obesity with BMI of 50.0-59.9, adult ([facility] Pre-diabetes Other abnormal glucose Rising PSA level Paroxysmal atrial fibrillation (I48.0) Atrial fibrillation Pulmonary emphysema, unspecified emphysema type (HCC)- Primary Atrial fibrillation, unspecified type (HCC) Paroxysmal atrial fibrillation (HCC) Atrial fibrillation [place]INA (obstructive sleep apnea) Obstructive sleep apnea (adult) (pediatric) Primary hypertension Unspecified essential hypertension Morbid obesity with BMI of 50.0-59.9, adult ([facility] Chronic obstructive pulmonary disease, unspecified COPD type (HCC) Pre-diabetes- Primary Other abnormal glucose Other thrombophilia ([facility]) CAT[place]INA (obstructive sleep apnea) Obstructive sleep apnea (adult) (pediatric) Pulmonary emphysema, unspecified emphysema type (HCC) Venous insufficiency of both lower extremities Primary hypertension Unspecified essential hypertension Paroxysmal atrial fibrillation (HCC) Atrial fibrillation Coronary artery disease involving [place] coronary artery of [place] heart without angina pectoris Bilateral lower extremity edema Morbid obesity with BMI of 50.0-59.9, adult ([facility] Rising PSA level Pre-diabetes- Primary Other abnormal glucose Other emphysema (HCC) Other emphysema Atrial fibrillation, unspecified type (HCC) Hyperlipidemia, unspecified Chronic obstructive pulmonary disease, unspecified COPD type ([facility]) Chest pain due to CAD Primary hypertension Unspecified essential hypertension Paroxysmal atrial fibrillation (HCC) Atrial fibrillation Chronic diastolic heart failure (HCC) Chronic diastolic heart failure Other headache syndrome Morbid obesity ([facility]) Morbid obesity Morbid obesity with BMI of 50.0-59.9, adult ([facility] Environmental and seasonal allergies- Primary Severe persistent asthma, uncomplicated ([facility]) Morbid obesity with BMI of 50.0-59.9, adult ([facility]) Pulmonary emphysema, unspecified emphysema type ([facility]) Encounter for subsequent annual wellness visit (AWV) in Medicare patient- Primary Chronic obstructive pulmonary disease, unspecified (HCC) Chronic diastolic (congestive) heart failure (HCC) Emphysema, unspecified (HCC) Paroxysmal atrial fibrillation (HCC) Atrial fibrillation Morbid (severe) obesity due to excess calories ([facility]) Body mass index (BMI) 50.0-59.9, adult ([facility]) CAT[place]INA (obstructive sleep apnea) Obstructive sleep apnea (adult) (pediatric) Coronary artery disease involving [place] coronary artery of [place] heart without angina pectoris Primary hypertension Unspecified essential hypertension Bilateral lower extremity edema Class 3 severe obesity due to excess calories with serious comorbidity and body mass index (BMI) of 50.0 to 59.9 in adult ([facility] Pre-diabetes Other abnormal glucose Mixed hyperlipidemia Mixed hyperlipidemia Upper respiratory tract infection, unspecified type Primary hypertension- Primary Unspecified essential hypertension Pulmonary emphysema, unspecified emphysema type (HCC) Coronary artery disease involving [place] coronary artery of [place] heart without angina pectoris Chronic diastolic (congestive) heart failure (HCC) Bilateral lower extremity edema Pre-diabetes Other abnormal glucose Mixed hyperlipidemia Mixed hyperlipidemia Rising PSA level Vitamin D deficiency Hyperlipidemia, unspecified Chronic diastolic heart failure (HCC) Chronic diastolic heart failure Atrial fibrillation, unspecified type (HCC) Chronic obstructive pulmonary disease, unspecified COPD type ([facility]) CATERINA (obstructive sleep apnea) Obstructive sleep apnea (adult) (pediatric) Primary hypertension- Primary Unspecified essential hypertension CAT[place] (obstructive sleep apnea) Obstructive sleep apnea (adult) (pediatric) Chronic diastolic (congestive) heart failure (HCC) Coronary artery disease involving [place] coronary artery of [place] heart without angina pectoris Paroxysmal atrial fibrillation (HCC) Atrial fibrillation Bilateral lower extremity edema Class 3 severe obesity due to excess calories with serious comorbidity and body mass index (BMI) of 50.0 to 59.9 in adult ([facility]) Pre-diabetes Other abnormal glucose Thyroid nodule Nontoxic [...] (BMI) of 50.0 to 59.9 in adult ([facility]) documented in this encounter [facility] HealthcareEvaluation noteNo assessment information availableC[facility] Work Phone: History of Present illness Narrative* Patient is here [...] coronary artery with known occlusion of his [place] circ. He remains active but difficult to [...] stress testing to clear him for surgery. [facility] 600 DO Work Phone: History [...] software was utilized to prepare this document. [facility] 305 DO Work Phone: History of Present [...] was utilized to prepare this document. [facility] Work Phone: InstructionsNot on filedocumented in this encounter [facility] SystemInstructionsNot on filedocumented in this encounter [facility] [...] Follow Up In Cardiology Madison Blanco MD [address] [place] [address] 2, [address] [address] Madison Blanco MD [address] [place] [facility] [address] [place] [address] Referral ID Status Reason Start Date Expiration Date V isits Requested Visits Authorized [id number] Authorized 10/08/2023 10/07/2024 1 1 [facility] Work Phone: Reason for referral (narrative)* Consultation (Routine) - Pending Review Specialty Diagnoses / Procedures Referred By Fifi pablo Referred To Contact Heart Failure Services Diagnoses Heart failure with preserved ejection fraction, unspecified HF chronicity ([facility]) Faith Mandujano MD [address] [place] [address] [facility] [address] [place] [address] Referral ID Status Reason Start Date Expiration Date V isits Requested Visits Authorized [id number] Pending Review 07/26/2023 07/25/2024 1 1 * Consultation (Routine) - Pending Review Specialty Diagnoses / Procedures Referred By Contac t Referred To Contact Cardiology Diagnoses Atrial fibrillation, unspecified type ([facility]) Faith Mandujano MD [address] [place] [address] Juan Jose Lee MD [address] [address] Referral ID Status Reason Start Date Expiration Date Visits Requested Visits Authorized [id number] Pending Review Specialty Services Required 07/26/2023 07/25/2024 1 1 [facility])No reason for referral information available[facility] Work Phone: Summary Purpose Family History Relationship [...] No pertinent family history: Father(V49.89, Z78.9) Status:Active Relationship Condition Age at Onset Recorded Date/T carlos mother Diabetes mellitus Unknown brother Malignant neoplasm of lung Unknown grandparent Malignant neoplasm Unknown father Unknown family member Unknown Advance Directives Advance Directive Response Recorded Date/ Time Advance Directives No February 7:30am Assessments No Assessments Information AvailableNo Assessments Information Available Chief Complaint Patient here for overdue general cardiology follow up. Former patient of Dr. Blanco.Patient here for overdue general cardiology follow up. Former patient of Dr. Blanco. Reason for Referral Specialty Diagnoses / Procedures Referred By Fifi pablo Referred To Contact Diagnoses Chronic obstructive pulmonary disease, unspecified COPD type ([facility]) CATERINA treated with BiPAP Restrictive pattern present on pulmonary function testing Procedures Nocturnal Pulse Oximetry Lisa Cervantes, [address] [place] [address] Referral ID Status Reason Start Date Expiration Date V isits Requested Visits Authorized [id number] Pending Review 10/25/2023 10/24/2024 1 1 Specialty Diagnoses / Procedures Referred By Fifi pablo Referred To Contact Diagnoses CATERINA treated with BiPAP Procedures Polysomnography 4 or more parameters with PAP titration Lisa Cervantes, [address] [address] Referral ID Status Reason Start Date Expiration Date V isits Requested Visits Authorized [id number] Pending Review 11/13/2023 11/12/2024 1 1 Chief Complaint and Reason for Visit Chief Complaint Admit Date 3 week February 26, 2025 1:58pm Additional Source Comments (unrecognized sect ion and content) No Status Records FoundNo Status Records FoundNo Status Records FoundNo Status Records FoundNo Status Records FoundNo Status Records FoundNo Status Records FoundNo Status Records FoundNo Status Records FoundNo Status Records Found INFORMATION SOURCE (unrecogn ized section and content) DATE CREATED AUTHOR 12/06/2017 [facility] DATE CREATED AUTHOR AUTHOR'S ORGANIZ ATION 07/20/[address] [facility] DATE CREATED AUTHOR AUTHOR'S ORGANIZ ATION 07/20/2022 [employer] DATE CREATED AUTHOR AUTHOR'S ORGANIZ ATION 10/29/2022 [facility] DATE CREATED AUTHOR AUTHOR'S ORGANIZ ATION 12/23/2022 [facility] DATE CREATED AUTHOR AUTHOR'S ORGANIZ ATION 10/27/2023 [facility] DATE CREATED AUTHOR AUTHOR'S ORGANIZ ATION 11/17/2023 [facility] DATE CREATED AUTHOR AUTHOR'S ORGANIZ ATION 10/22/2024 [facility] DATE CREATED AUTHOR AUTHOR'S ORGANIZ ATION 01/26/2025 [facility] DATE CREATED AUTHOR AUTHOR'S ORGANIZ ATION 02/03/2025 [facility] dical Specialists EPIC Reason for Visit (unrecogniz [...] 11/14/2023 Pap Order Reason Comments New Patient PROVIDER NETWORK MANAGER A FIB STRESS, CXR , CTA, USED TO SEE [facility] Specialty Diagnoses / Procedures Referred By Contac Referred To Contact Cardiology Diagnoses Paroxysmal atrial fibrillation ([facility]) Bilateral lower extremity edema Eusebia Terrell, ON AIR TALENT[employer]DIALER [address] [place] [address] [facility] [address] [address] Referral ID Status Reason Start Date Expiration Date Visits Requested Visits Authorized [id number] Pending Review Specialty Services Required 06/29/2023 06/28/2024 1 1 Reason Onset Date Comments KCL 08/21/2023 Reason Comments Congestive Heart Failure Specialty Diagnoses / Procedures Referred By Contac t Referred To Contact Heart Failure Services Diagnoses Heart failure with preserved ejection fraction, unspecified HF chronicity ([facility]) Faith Mandujano MD [address] [place] [address] [facility] [address] [place] [address] Referral ID Status Reason Start Date Expiration Date V isits Requested Visits Authorized [id number] Pending Review 07/26/2023 07/25/2024 1 1 Reason Onset Date Comments overdue lab 05/23/2024 Reason Comments Follow-up 6 month follow up 2- vessel coronary artery disease Specialty Diagnoses / Procedures Referred By Fifi pablo Referred To Contact Cardiology Diagnoses Paroxysmal atrial fibrillation (Multi) Procedures Follow Up In Cardiology Madison Blanco MD [address] [facility], [address] [address] Phone: tel: fax: Madison Blanco MD [facility]03 [facility], [address] [place] [address] Phone: tel: fax: Referral ID Status Reason Start Date Expiration Date V isits Requested Visits Authorized [id number] Authorized 10/08/2023 10/07/2024 1 1 Reason Comments Hypertension Care Teams (unrecognized sec tion and content) Lift Supervisor Relationship Specialty Start Date End Date Eusebia Terrell, ON AIR [employer]ENT[employer]DIALER [address] [place] [address] PCP - General 11/04/19 Lift Supervisor Relationship Specialty Start Date End Date Mirza Guzmán MD [address] [place] [address] PCP - General Family Medicine 06/05/23 Eusebia Terrell NP [address] [place] [address] Nurse Practitioner Family Medicine 03/18/23 Lift Supervisor Relationship Specialty Start Date End Date Mirza Guzmán MD [address] [place] [address] PCP - General Family Medicine 06/05/23 Eusebia Terrell NP [address] [place] [address] Nurse Practitioner Family Medicine 03/18/23 Lift Supervisor Relationship Specialty Start Date End Date Eusebia Terrell ON [employer]DIALER [address] [place] [address] PCP - General 11/04/19 Justyn Mondargon MD [address] [facility] Medical Office Bldg, Pankaj [address] [place] [id number] Worker Cardiology 07/05/23 Lift Supervisor Relationship Specialty Start Date End Date Mirza Guzmán MD [address] [place] [address] PCP - General Family Medicine 08/14/23 Eusebia Terrell NP [address] [place] [address] Nurse Practitioner Family Medicine 03/18/23 Lift Supervisor Relationship Specialty Start Date End Date Unallocated, Kokis MD Eliseo [address] [place] [address] PCP - General Family Medicine 04/09/24 Eusebia Terrell NP [address] [place] [address] Nurse Practitioner Family Medicine 03/18/23 Lift Supervisor Relationship Specialty Start Date End Date Unallocated, [place] [address] PCP - General Family Medicine 04/09/24 Eusebia Terrell NP [address] [place] [address] Nurse Practitioner Family Medicine 03/18/23 Lift Supervisor Relationship Specialty Start Date End Date Mirza Guzmán MD [address] [place] [address] PCP - General Family Medicine 08/14/23 Eusebia Terrell NP [address] [place] [address] Nurse Practitioner Family Medicine 03/18/23 Lift Supervisor Relationship Specialty Start Date End Date Mirza Guzmán MD [address] [place] [address] PCP - General Family Medicine 08/14/23 Eusebia Terrell NP [address] [place] [address] Nurse Practitioner Family Medicine 03/18/23 Lift Supervisor Relationship Specialty Start Date End Date Mirza Guzmán MD [address] [place] [address] PCP - General Family Medicine 04/17/24 Eusebia Terrell NP [address] [place] [address] Nurse Practitioner Family Medicine 03/18/23 Lift Supervisor Relationship Specialty Start Date End Date Mirza Guzmán MD [address] [place] [address] PCP - General Family Medicine 04/17/24 Eusebia Terrell NP [address] [place] [address] Nurse Practitioner Family Medicine 03/18/23 Lift Supervisor Relationship Specialty Start Date End Date Mirza Guzmán MD [address] [place] [address] PCP - General Family Medicine 04/17/24 Eusebia Terrell NP [address] [place] [address] Nurse Practitioner Family Medicine 03/18/23 Lift Supervisor Relationship Specialty Start Date End Date Eusebia Terrell, ON AIR TALENT[employer]DIALER PCP - General Nurse Practitioner 08/20/23 Lift Supervisor Relationship Specialty Start Date End Date Eusebia Terrell, ON AIR TALENT[employer]DIALER [address] [place] [address] PCP - General Nurse Practitioner 08/20/23 Lift Supervisor Relationship Specialty Start Date End Date Eusebia Terrell, ON AIR [employer]ALENT[employer]DIALER [address] [place] [address] PCP - General Nurse Practitioner 08/20/23 Lift Supervisor Relationship Specialty Start Date End Date Eusebia Terrell, ON AIR TALENT[employer]DIALER [address] [place] [address] PCP - General Nurse Practitioner 08/20/23 Lift Supervisor Relationship Specialty Start Date End Date Mirza Guzmán MD [address] [place] [address] PCP - General Family Medicine 04/17/24 Eusebia Terrell NP [address] [place] [address] Nurse Practitioner Family Medicine 03/18/23 Lift Supervisor Relationship Specialty Start Date End Date Eusebia Terrell, ON AIR TALENT[employer]DIALER [address] [place] [address] PCP - General Nurse Practitioner 08/20/23 Lift Supervisor Relationship Specialty Start Date End Date Eusebia Terrell, ON AIR TALENT[employer]DIALER [address] [place] [address] PCP - General Nurse Practitioner 08/20/23 Lift Supervisor Relationship Specialty Start Date End Date Eusebia Terrell, ON AIR TALENT[employer]DIALER [address] [place] [address] PCP - General Nurse Practitioner 08/20/23 Lift Supervisor Relationship Specialty Start Date End Date Gi Kimble [address] [place] [address] [address] PCP - General Physical Therapy 12/31/20 Lift Supervisor Relationship Specialty Start Date End Date Eusebia Terrell, ON AIR TALENT[employer]DIALER [address] [place] [address] PCP - General Nurse Practitioner 08/20/23 Lift Supervisor Relationship Specialty Start Date End Date Eusebia Terrell APRN-NATALIA [address] [place] [address] PCP - General Nurse Practitioner 08/20/23 Lift Supervisor Relationship Specialty Start Date End Date Gi Kimble [address] [place] [address] [address] PCP - General Physical Therapy 12/31/20 Lift Supervisor Relationship Specialty Start Date End Date Eusebia Terrell APRN-NATALIA [address] [place] [address] PCP - General Nurse Practitioner 08/20/23 Lift Supervisor Relationship Specialty Start Date End Date Eusebia Terrell APRN-DIALER [address] [place] [address] PCP - General Nurse Practitioner 08/20/23 Lift Supervisor Relationship Specialty Start Date End Date Eusebia Terrell APRN-NATALIA [address] [place] [address] PCP - General Nurse Practitioner 08/20/23 Lift Supervisor Relationship Specialty Start Date End Date Eusebia Terrell APRN-NATALIA [address] [place] [address] PCP - General Nurse Practitioner 08/20/23 Lift Supervisor Relationship Specialty Start Date End Date [facility] P[facility] - General Nurse Practitioner 08/20/23 Lift Supervisor Relationship Specialty Start Date End Date [facility] P[facility] - General Nurse Practitioner 08/20/23 Lift Supervisor Relationship Specialty Start Date End Date [facility] PCP - General Nurse Practitioner 08/20/23 Lift Supervisor Relationship Specialty Start Date End Date [facility] PCP - General Nurse Practitioner 08/20/23 Lift Supervisor Relationship Specialty Start Date End Date Mirza Guzmán MD [address] [place] [address] PCP - General Family Medicine 04/17/24 Eusebia Terrell NP [address] [place] [address] Nurse Practitioner Family Medicine 03/18/23 Lift Supervisor Relationship Specialty Start Date End Date Mirza Guzmán MD [address] [place] [address] PCP - General Family Medicine 04/17/24 Eusebia Terrell NP [address] [place] [address] Nurse Practitioner Family Medicine 03/18/23 Lift Supervisor Relationship Specialty Start Date End Date Eusebia Terrell ON AIR TALENTDIALER [address] [place] [facility] [place] [address] PCP - General 11/04/19 Justyn Mondragon MD [address] [facility] Medical Office Bldg, [address] [place], [place] [address] Street Worker Cardiology 07/05/23 Lift Supervisor Relationship Specialty Start Date End Date Mirza Guzmán MD [address] [place] [address] PCP - General Family Medicine 04/17/24 Eusebia Terrell NP [address] [place] [address] Nurse Practitioner Family Medicine 03/18/23 Lift Supervisor Relationship Specialty Start Date End Date Mirza Guzmán MD [address] [place] [address] PCP - General Family Medicine 04/17/24 Eusebia Terrell NP [address] [place] [address] Nurse Practitioner Family Medicine 03/18/23 Lift Supervisor Relationship Specialty Start Date End Date Mirza Guzmán MD [address] [place] [address] PCP - General Family Medicine 04/17/24 Eusebia Terrell NP [address] [place] [address] Nurse Practitioner Family Medicine 03/18/23 Lift Supervisor Relationship Specialty Start Date End Date Mirza Guzmán MD [address] [place] [address] PCP - General Family Medicine 04/17/24 Eusebia Terrell NP [address] [place] [address] Nurse Practitioner Family Medicine 03/18/23 Lift Supervisor Relationship Specialty Start Date End Date Mirza Guzmán MD [address] [place] [address] PCP - General Family Medicine 04/17/24 Eusebia Terrell NP [address] [place] [address] Nurse Practitioner Family Medicine 03/18/23 Lift Supervisor Relationship Specialty Start Date End Date Mirza Gumzán MD [address] [place] [address] PCP - General Family Medicine 04/17/24 Eusebia Terrell NP [address] [place] [address] Nurse Practitioner Family Medicine 03/18/23 Team Status: Active Member Role Status Dates NON STAFF Primary Care Provider Active Team Status: Inactive Member Role Status Dates NON STAFF Primary Care Provider Active Start: February 26, 2025 End: February 26, 2025 LETA Pavon Attending Provider Active Start: February 26, 2025 End: February 26, 2025 Goals (unrecognized section and content) Goals may be documented in a n alternate section FOR RECORDS PERTAINING TO PATIENTS WHO ARE [...] ON THE PRIMARY CLINICAL RECORDS. [facility]. provides no warranty or guarantee of the accuracy or completeness of information in this document.
--- NOTE | 2025-03-26 12:34 | XR_ITS ---
The [address] [address] Patient Name: ELYSE LEAHY MRN: [id number] date: 1965 Sex: M Assigned Patient Location: ER Current Patient Location: ER Accession/Order Number: [id number] Exam Date: 03/26/2025 12:57 Report Date: 03/26/2025 13:13 At the request of: MARIA DEL CARMEN MESA DO Procedure: XR chest 2V XR chest 2V 03/26/2025 1:05 PM SIGNS AND SYMPTOMS: ^r/o PNA PROTOCOL: Frontal and lateral radiographs of the chest COMPARISON: 03/18/2025 FINDINGS: The trachea is midline. The heart and mediastinal structures are within normal limits. The lung parenchyma is clear. The bony thorax is intact. XR/XR chest 2V IMPRESSION: No acute cardiopulmonary pathology. Impression dictated by: Yazan Ratliff M.D. 03/26/2025 1:13 PM Dictation Location: [facility] Electronically authenticated by: [id number] Y Date: 03/26/2025 13:13
--- NOTE | 2025-03-26 12:34 | ECG_ITS ---
The [facility] Test Date: 2025-03-26 Pat Name: ELYSE LEAHY Department: Room: - Gender: Male Vault Keeper: : 1965 Requested By: [id number] Order Number: [id number] Reading MD: ROBERT COX M.D. Measurements Intervals [place] Rate: 87 P: -[id number] ID: [id number] QRS: 75 QRSD: 84 T: 52 QT: 358 QTc: 403 Interpretive Statements [address] segment abnormality abnormal ECG Compared to ECG 03/16/2025 05:08:[address] segment abnormality now present Myocardial infarct finding no longer present Electronically Signed On 03-26-2025 13:29:23 EDT by ROBERT COX M.D.
[2025-03-26 12:50] LABS: Hematocrit 47.7 % (42.0-54.0); Hemoglobin 16.1 g/dL (14.0-18.0); Immature Granulocytes Abs Auto 0.06 10^3/uL (0.00-0.03); Immature Granulocytes Pct Auto 0.7 % (0.0-0.5); Lymphocytes Absolute Auto 1.3 10^3/uL (1.2-3.8); Mean Corpuscular HGB Conc 33.8 g/dL (29.9-35.2); Mean Corpuscular Hemoglobin 31.8 pg (25.9-34.0); Mean Corpuscular Volume 94.3 fL (80.0-94.0); Platelet Count 200 10^3/uL (150-450); Red Blood Count 5.06 10^6/uL (4.70-6.10); White Blood Count 9.2 10^3/uL (4.0-11.0)
[2025-03-26] MEDS: IPRATROPIUM/ALBUTEROL SULFATE 3 ML AMPUL.NEB 6 ML IH (12:57)
[2025-03-26 13:00] LABS: Anion Gap 11.0; Blood Urea Nitrogen 20.0 mg/dL (7.0-18.0); Calcium 8.9 mg/dL (8.5-10.1); Carbon Dioxide 31.9 mmol/L (21.0-32.0); Chloride 99 mmol/L (98-107); Estimated GFR (African America >60 (>=60 mL/min/1.73m^2); Estimated GFR (Non-African Ame >60 (>=60 mL/min/1.73m^2); Glucose 105 mg/dL (74-106); Potassium 3.9 mmol/L (3.5-5.1); Sodium 138 mmol/L (136-145)
[2025-03-26 13:13] LABS: NT Pro B Type Natriuretic Pept 504.0 pg/mL (<=900.0)
--- NOTE | 2025-03-26 13:35 | ED.GENADUL1 ---
HPI HPI - General Adult General Chief complaint: Upper Respiratory Infection Stated complaint: URTI COMPLAINTS Time Seen by Provider: 03/26/25 12:00 Source: patient Mode of arrival: walk-in History of Present Illness HPI narrative: Patient is a 59-year-old male presenting to the emergency department for concerns of pneumonia. Patient states he was recently hospitalized at the beginning of this month for pneumonia. He was given IV antibiotics and discharged on oral Augmentin/doxycycline. He states he is taking his antibiotics as prescribed, but has been having a persistent cough. He also endorses shortness of breath, however this is at his baseline. He is on home oxygen for COPD. He denies any chest pain. No abdominal pain, nausea, or vomiting. No fevers or chills. Related Data Home Medications ?Medication ?Instructions ?Recorded ?Confirmed atorvastatin 40 mg tablet 40 mg PO .QHS 04/08/23 03/16/25 aspirin 81 mg tablet,delayed 81 mg PO Q8H pain 03/15/25 03/16/25 release nitroglycerin 0.4 mg sublingual 0.4 mg sublingual PRN 03/15/25 03/15/25 tablet fluticasone fur. 100 mcg-umeclid 1 inh inhalation .QD 03/16/25 03/16/25 62.5 mcg-vilant 25 mcg inhalat.powder (Trelegy Ellipta) metoprolol tartrate 50 mg tablet 50 mg PO BID 03/16/25 03/16/25 spironolactone 25 mg tablet 25 mg PO .QD 03/16/25 03/16/25 torsemide 20 mg tablet 20 mg PO .QD 03/16/25 03/16/25 Previous Rx's ?Medication ?Instructions ?Recorded apixaban 5 mg tablet (Eliquis) 5 mg PO BID 30 days #60 tabs 04/10/23 diltiazem HCl 240 mg 240 mg PO DAILY #30 caps 04/10/23 capsule,extended release 24 hr levalbuterol tartrate 45 2 inh inhalation Q4H PRN shortness 04/10/23 mcg/actuation aerosol inhaler of breath or wheezing #15 grams ipratropium 0.5 mg-albuterol 3 mg 3 ml inhalation Q4H PRN shortness 06/20/23 (2.5 mg base)/3 mL nebulization of breath or wheezing #180 mL soln amoxicillin 875 mg-potassium 1 tab PO BID #18 tabs 03/18/25 clavulanate 125 mg tablet doxycycline monohydrate 100 mg 100 mg PO BID #8 caps 03/18/25 capsule metformin 500 mg tablet 500 mg PO BIDWM #60 tabs 03/18/25 Allergies Allergy/AdvReac Type Severity Reaction Status Date / Time No Known Drug Allergies Allergy Verified 04/08/23 07:42 Opioid HPI Opioid Management Most Recent Opioid Data: Last Pain Scale 8 01/29/25, 20:59 Last ORT Total Score 0 03/15/25, 21:13 Last ORT Risk Category Low Risk 03/15/25, 21:13 Review of Systems ROS Status of ROS 10 or more systems reviewed and unremarkable except as noted in history and below [facility] Medical History (Updated 03/26/25 @ 13:23 by Collins Mcgee DO) Edema of both lower legs ?R60.0 - Localized edema (ICD-10) Benign essential hypertension ?I10 - Essential (primary) hypertension (ICD-10) Cellulitis ?L03.90 - Cellulitis, unspecified (ICD-10) Leukocytosis ?D72.829 - Elevated white blood cell count, unspecified (ICD-10) Asthma exacerbation ?J45.901 - Unspecified asthma with (acute) exacerbation (ICD-10) Prediabetes ?R73.03 - Prediabetes (ICD-10) Paroxysmal atrial fibrillation ?I48.0 - Paroxysmal atrial fibrillation (ICD-10) COPD (chronic obstructive pulmonary disease) ?J44.9 - Chronic obstructive pulmonary disease, unspecified (ICD-10) Cellulitis ?L03.90 - Cellulitis, unspecified (ICD-10) Surgical History (Updated 04/08/23 @ 13:25 by Zuleyka Merirtt) Hx of cholecystectomy ?Z90.49 - Acquired absence of other specified parts of digestive tract (ICD-10) H/O heart artery stent ?Z95.5 - Presence of coronary angioplasty implant and graft (ICD-10) Family History (Updated 03/15/25 @ 21:42 by Cally Tapia) Brother Family history of cancer Mother Family history of diabetes mellitus Social History (Updated 03/15/25 @ 21:45 by Cally Tapia) Within the past year, how often did you have a drink containing alcohol: never Score interpretation: A score less than 4 is consistent with normal alcohol consumption. 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 EYES: Sclerae white. EARS, NOSE, THROAT: Moist oral mucosa. RESPIRATORY: Diminished breath sounds bilaterally with faint expiratory wheezes. No use of accessory muscles. Speaking in full sentences. CARDIOVASCULAR: Normal rate and regular rhythm. There is no S3, S4, murmur, rub. GASTROINTESTINAL: Abdomen is nondistended. MUSCULOSKELETAL: No peripheral edema. NEUROLOGIC: Patient is awake and alert. Facies were symmetrical. Constitutional Vital Signs, click to edit/add: Last Vital Signs Temp 97.5 F L 03/26/25 12:00 Pulse 85 03/26/25 13:20 Resp 19 03/26/25 12:50 BP 169/95 H 03/26/25 12:00 Pulse Ox 94 L 03/26/25 13:20 O2 Del Method Nasal Cannula 03/26/25 12:58 O2 Flow Rate 4 03/26/25 12:58 Course Vital Signs Vital signs: Vital Signs Temperature 97.5 F L 03/26/25 12:00 Pulse Rate 71 03/26/25 12:00 Respiratory Rate 24 H 03/26/25 12:00 Blood Pressure 169/95 H 03/26/25 12:00 Pulse Oximetry 96 03/26/25 12:00 Oxygen Delivery Method Room Air 03/26/25 12:00 Temperature 97.5 F L 03/26/25 12:00 Pulse Rate 85 03/26/25 13:20 Respiratory Rate 19 03/26/25 12:50 Blood Pressure 169/95 H 03/26/25 12:00 Pulse Oximetry 94 L 03/26/25 13:20 Oxygen Delivery Method Nasal Cannula 03/26/25 12:58 Oxygen Delivery Flow Rate 4 03/26/25 12:58 Medical Decision Making MDM Narrative Medical decision making narrative: Patient is a 59-year-old male, history significant for COPD on home oxygen, presenting to the emergency department for evaluation of possible pneumonia and cough. On review of external documentation, patient was admitted to the hospital in 03/18/2025 and treated for community-acquired pneumonia and COPD exacerbation. He was discharged on Augmentin and doxycycline, which he is currently taking. His vital signs arrival today were significant for hypertension and mild tachypnea, otherwise within normal limits. He is afebrile and hemodynamically stable. Examination was noted for faint expiratory wheezes. He does not appear to be in acute respiratory distress. He is saturating 94% on his home oxygen requirements. Differential diagnosis includes persistent cough after being treated for pneumonia, bronchitis, recurrent pneumonia, COPD exacerbation, ACS, pneumothorax. IV was established and workup was obtained. He was treated with nebulized albuterol/ipratropium. 12 Lead EKG: Atrial fibrillation at a rate of 87. Normal axis. No ST segment elevations. QRS and QTc interval within normal limits. Final impression: Atrial fibrillation with a controlled ventricular response. No evidence of acute myocardial ischemia. Chest x-ray independently reviewed/interpreted by myself demonstrated no acute cardiopulmonary process. Laboratory studies were unremarkable. He no longer has a leukocytosis compared to laboratory studies from 03/18. No significant electrolyte or metabolic derangement. No evidence of acute kidney injury. No anemia or thrombocytopenia. Troponin and BNP nonelevated. On reevaluation, patient states he feels improved. His wheezing has subsided on repeat auscultation. Given his normal chest x-ray and resolved leukocytosis, I do believe his pneumonia is responding appropriately to antibiotics. I instructed him to finish his home doses of antibiotics that he was discharged with from his last hospital stay. Return precautions were given including any new or concerning symptoms. Instructed to follow-up with his PCP for further care. Patient understands and agrees the plan. FINAL IMPRESSION: #Acute mild COPD exacerbation #History of recent treatment for pneumonia DISPOSITION: Discharged home CONDITION: Good Medical Records Medical records reviewed: Yes I reviewed the patient's medical records Lab Data Lab results reviewed: Yes I reviewed the patient's lab results Labs: Lab Results 10/09/25 Range/Units 12:43 WBC 9.2 (4.0-11.0) 10^3/uL RBC 5.06 (4.70-6.10) 10^6/uL Hgb 16.1 (14.0-18.0) g/dL Hct 47.7 (42.0-54.0) % MCV 94.3 H (80.0-94.0) fL MCH 31.8 (25.9-34.0) pg MCHC 33.8 (29.9-35.2) g/dL RDW 12.7 (11.0-15.0) % Plt Count 200 (150-450) 10^3/uL MPV 10.0 (9.5-13.5) fL Neut % (Auto) 70.7 (43.0-75.0) % Lymph % (Auto) 14.1 L (20.5-60.0) % [place] % (Auto) 12.5 H (1.7-12.0) % Eos % (Auto) 1.8 (0.9-7.0) % Baso % (Auto) 0.2 (0.2-2.0) % Neut # (Auto) 6.5 (1.4-6.5) 10^3/uL Lymph # (Auto) 1.3 (1.2-3.8) 10^3/uL [place] # (Auto) 1.2 H (0.3-0.8) 10^3/uL Eos # (Auto) 0.2 (0.0-0.7) 10^3/uL Baso # (Auto) 0.0 (0.0-0.1) 10^3/uL Abs Immat Gran (auto) 0.06 H (0.00-0.03) 10^3/uL Imm/Tot Granulo (auto) 0.7 H (0.0-0.5) % Sodium 138 (136-145) mmol/L Potassium 3.9 (3.5-5.1) mmol/L Chloride 99 (98-107) mmol/L Carbon Dioxide 31.9 (21.0-32.0) mmol/L Anion Gap 11.0 BUN 20.0 H (7.0-18.0) mg/dL Creatinine 1.15 (0.70-1.30) mg/dL Est GFR ( Amer) >60 (>=60 mL/min/1.73m^2) Est GFR (Non-Af Amer) >60 (>=60 mL/min/1.73m^2) BUN/Creatinine Ratio 17.4 Glucose 105 (74-106) mg/dL Calcium 8.9 (8.5-10.1) mg/dL Troponin I High Sens 7.2 (4.0-76.1) pg/mL NT-Pro-B Natriuret Pep 504.0 (<=900.0) pg/mL Imaging Data Chest x-ray: Attestation: I personally reviewed and interpreted this imaging study as follows: Radiologist's impression: ITS Impressions Chest X-Ray 03/26/25 12:34 IMPRESSION: No acute cardiopulmonary pathology. Impression dictated by: Yazan Ratliff M.D. 03/26/2025 1:13 PM Dictation Location: [employer] Electronically authenticated by: [id number] Y Date: 03/26/2025 13:13 ECG Data Attestation: I personally reviewed and interpreted this ECG as follows: Discharge Plan Discharge Chief Complaint: Upper Respiratory Infection Clinical Impression: COPD exacerbation Patient Disposition: Home, Self-Care Time of Disposition Decision: 13:23 Condition: Good Mode of Transportation: Private Vehicle Prescriptions / Home Meds: No Action atorvastatin 40 mg tablet 40 mg PO .QHS diltiazem HCl 240 mg capsule,extended release 24hr 240 mg PO DAILY Qty: 30 0RF Eliquis 5 mg Tablet 5 mg PO BID 30 Days Qty: 60 0RF levalbuterol tartrate 45 mcg/actuation HFA aerosol inhaler 2 inh inhalation Q4H PRN (Reason: shortness of breath or wheezing) Qty: 15 0RF ipratropium-albuterol 0.5 mg-3 mg(2.5 mg base)/3 mL Solution For Nebulization 3 ml inhalation Q4H PRN (Reason: shortness of breath or wheezing) Qty: 180 0RF aspirin 81 mg tablet,delayed release (DR/EC) 81 mg PO Q8H nitroglycerin 0.4 mg tablet, sublingual 0.4 mg sublingual PRN torsemide 20 mg tablet 20 mg PO .QD spironolactone 25 mg tablet 25 mg PO .QD metoprolol tartrate 50 mg tablet 50 mg PO BID Trelegy Ellipta 100-62.5-25 mcg blister with device 1 inh INHALATION .QD metformin 500 mg Tablet 500 mg PO BIDWM Qty: 60 1RF doxycycline monohydrate 100 mg Capsule 100 mg PO BID Qty: 8 0RF amoxicillin-pot clavulanate 875-125 mg tablet 1 tab PO BID Qty: 18 0RF Print Language: Faroese Instructions: COPD (Chronic Obstructive Pulmonary Disease) (ED) Referrals: Eusebia Terrell NP [Primary Care Provider, Family Practice] - 1 week Discharge Date/Time: 03/26/25 13:33
== END 2025-03-26 13:33 | disposition home or self-care (01) ==
PROVIDERS: Emergency Provider Student in an Organized Health Care Education/Training Program; PCP Nurse Practitioner
DX: J44.1 Chronic obstructive pulmonary disease with (acute) exacerbation (principal); Z87.01 Personal history of pneumonia (recurrent); Z99.81 Dependence on supplemental oxygen; J44.9 Chronic obstructive pulmonary disease, unspecified; Z87.891 Personal history of nicotine dependence; R06.02 Shortness of breath
CPT/HCPCS: 36415; 71046; 80048; 83880; 84484; 85025; 93005; 94640; 99285